=== PATIENT | female | born 1965 | race Caucasian/White ===

== ENCOUNTER 2017-05-13 16:58 | Emergency (ER) | payer MEDICAID ==
[~2017-05-13] VITALS: Ht 157.5 cm; Wt 109.8 kg
[~2017-05-13 16:58] MED LIST: ACETAMINOPHEN325 M2 PO; ACID GONE EXTRA1 CTB PO; AMLO2.5T; AMLO5TAB PO; AMOXICILLIN 25250 M2; AMOXICILLIN 50500 MG PO; ARTHRITIS PAIN650 M1 PO; ATIVAN GENERIC0.5 MG; ATIVAN1 MG PO; AUGMENTIN 875-1 EACH PO; AVPAK AZITHROM250 MG PO; BREO ELLIPTA1 POW IH; BUSPAR 10MG TAB10 MG PO; BUSPIRONE HCL15 MG PO; CARAFATE 1GM TAB1 GM PO; CIPROFLOXACIN500 MG PO; CITRUCEL; CLONAZEPAM 1MG T1 MG PO; CLONAZEPAM0.5 M1 PO; COGENTIN GENERIC1 MG PO; D3-55000 IU PO; DEPAKOTE ER250 MG PO; DILANTIN 100MG100 MG PO; DILANTIN100 MG PO; FENOFIBRATE 54M54 MG PO; FENOFIBRATE160 MG PO; FISH OIL1 POW; FISH OIL1000 MG PO; FLONASE 50 MCG16 GM; FLUTICASONE 50M16 GM; GABAPENTIN 400400 MG PO; GABAPENTIN 600600 MG PO; GABAPENTIN800 MG PO; GEMFIBROZIL600 M1 PO; GEMFIBROZIL600 MG PO; GOOD SENSE OMEP20 MG PO; GOOD SENSE400 MG/5 M PO; HCTZ/TRIAMTEREN1 CAP PO; HYDROCHLOROTHIAZIDE; HYDROCODONE-APA1 TA1 PO; HYDROXYZINE HCL25 M1 PO; IMODIUM 2MG. CAP2 MG PO; KEPPRA100 MG/ML PO; KEPPRA1000 MG PO; KLONOPIN 0.5MG0.5 MG PO; LAMICTAL ODT PA1 OD1; LATUDA20 MG PO; LEVAQUIN750 MG PO; LIDODERM 5% PA1 EACH TD; LIDODERM1 EACH TP; LIPITOR20 MG PO; LIPITOR40 M1 PO; LIPITOR40 MG PO; LODINE200 MG PO; LOPID 600MG TA600 MG PO; LORAZEPAM1 MG/TABLE PO; LOVAZA1 GM PO; MAXZIDE 25 MG-31 TAB PO; MEDROL 4MG. DOSE4 MG PO; METFORMIN HCL1000 MG PO; METFORMIN1000 MG PO; METHYLCELLULOSE PO; METOPROLOL 25 M25 MG PO; METOPROLOL25 MG PO; MULTI-VITAMIN1 EAC1 PO; MULTIVITAMIN1 TAB PO; NAPROSYN 500MG500 MG PO; NATURE'S BLEND1 TA6 PO; OLANZAPINE5 MG PO; OXCARBAZEPINE150 M1 PO; OXCARBAZEPINE300 M2 PO; PAROXETINE HCL10 MG; PERCOCET 5/3251 EACH PO; PHENYTOIN 100M100 MG PO; POTASSIUM CHLO10 ME3 PO; PRAVASTATIN40 MG; PROAIR HFA0.09 MG/AC IH; QUETIAPINE FUM300 M1 PO; QUETIAPINE FUMA25 MG PO; RISPERDAL 1 MG T1 MG PO; RISPERDAL2 MG PO; RISPERDAL3 MG PO; RISPERIDONE2 MG PO; ROBAFEN100 MG/5 M PO; SENNA LAXATIVE8.6 MG PO; SEROQUEL300 MG PO; SEROQUEL50 MG PO; SIMETHICONE80 MG PO; SINGULAIR 10 MG10 MG PO; SINGULAIR10 MG PO; SWISS KRISS1 FLA; SYMBICORT1 AE1 IH; TOPAMAX100 MG PO; TOPAMAX200 MG PO; TOPAMAX25 M1 PO; TOPIRAMATE 100100 M1 PO; TOPIRAMATE 25MG25 MG PO; TOPIRAMATE200 MG PO; TOPROL XL 50MG50 MG PO; TRAZADONE HYDR100 MG; TRAZODONE150 MG PO; TRIAMTERENE; TRICOR 145 MG145 MG PO; TRILEPTAL600 MG PO; TUMS ULTRA ST1000 MG PO; TYLENOL ES500 M1 PO; VENTOLIN H0.09 MG/AC IH; VISTARIL25 M1 PO; VITAMIN D1000 IU PO; VITAMIN D31000 IU PO; VITAMIN D35000 IU PO; ZOLOFT100 MG PO; ZYPREXA 2.5MG2.5 MG PO; ZYPREXA 5MG TAB5 MG PO; ZYRTEC10 M3 PO; [UNRECOGNIZED DRUG - OTHER] PO
[2017-05-13 17:19] LABS: LYMPH # 3.8 K/mm3 (0.7-4.5); LYMPH % 40.7 % (10-50.0)
--- NOTE | 2017-05-13 17:27 | Emergency Room Report ---
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 PT REPORTS REMEMBER EATING BUT DOESN' T REMEMBER FALLING IN THE FLOOR. PT REPORTS LOW BACK PAIN AND L HIP, PT REPORTS HAS BEEN TAKING THERAPY R/T PREVIOUS FALL ON L HIP. 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 N Clinical Suspician of Infection? N Mental Status: 1 - Regular (Normal Baseline) Sepsis Risk:Low Sepsis Risk Have you (or family members/close friends) recently traveled outside the [place]? N If Yes, where/when: Have you had exposure to infectious disease within the past month? N TB? Other? Specify: Patient with chronic left hip pain, recent hospitalization for sinusitis and UTI as well as OM, states hasn't been feeling well the past day or so. No fever or vomiting. Started to eat chicken and vegetables today and when walking from kitchen to sofa to eat more of her meal she had what sounds like an witnessed syncopal episode. Therapist came by, found her on the floor, and called EMS. EMS states on their arrival FSBS 106, patient was ambulatory and alert with no complaints acutely, and arrives also with no complaints. Patient is diabetic. ALLERGIES Coded Allergies: Sulfa (Sulfonamide Antibiotics) (07/13/16) aspirin (07/13/16) ibuprofen (From MOTRIN) (07/13/16) Home Medications Reported Medications Calcium Carbonate (Tums Ultra) 400-800 MG PO PRN PRN INDIGESTION Guaifenesin (Robafen) 10 ML PO Q4HP PRN COUGH Metoprolol Tartrate (Metoprolol 25MG) 25 MG PO BID SERTRALINE HYDROCHLORIDE (Zoloft 100MG) 200 MG PO QAM Hydrochlorothiazide W/Triamter (Triamterene-Hctz 37.5-25 MG Tb) 1 CAP PO DAILY #30 TAB BENZTROPINE MESYLATE (COGENTIN 1MG TAB) 1 MG PO TID GABAPENTIN (Gabapentin) 1,200 MG PO TID PHENYTOIN SODIUM EXTENDED (Phenytoin 100MG Capsule) 200 MG PO BID METFORMIN HCL (Metformin) 500 MG PO BID Omeprazole 20 MG PO DAILY Risperidone (Risperdal 1 Mg Tab) 4 MG PO BID Levetiracetam (Keppra) 1,000 MG PO Q12 Gemfibrozil (GEMFIBROZIL 600MG) 600 MG PO BID Olanzapine (Olanzapine 5MG Tab) 5 MG PO QHS Multivitamin (Multivitamins) 1 TAB PO DAILY Loperamide Hcl (Loperamide) 2 MG PO Q3HP PRN DIARRHEA Acetaminophen (Acetaminophen Tab) 650 MG PO Q8HP PRN PAIN/FEVER Magnesium Hydroxide (Milk Of Magnesia) 30 ML PO DAILYP PRN CONSTIPATION Sucralfate (Carafate Tab) 1 GM PO BID Clonazepam (Klonopin 0.5MG) 0.5 MG PO BID Fenofibrate 54 MG PO DAILY Montelukast Sodium (Singulair 10MG) 10 MG PO QHS OMEGA-3 ACID ETHYL ESTERS (Lovaza) 1 GM PO BID Topiramate 200 MG PO BID #60 CHOLECALCIFEROL (VITAMIN D3) (Vitamin D3) 5,000 UNITS PO DAILY BUDESONIDE/FORMOTEROL FUMARATE (Symbicort 160-4.5 Mcg Inhaler) 1 PUFF IH BID Albuterol Sulfate (Proair Hfa) 1 PUFF IH Q6HP PRN ASTHMA Fluticasone Propionate (Flonase 50 Mcg Nasal [place]) 1 SPRAY NA DAILY FLUTICASONE/VILANTEROL (Breo Ellipta 100-25 Mcg INH) 1 POW IH DAILY Oxcarbazepine 600 MG PO BID History Medical History General CAD? No Angina: No CO: No Hypertension? Yes Hyperlipidemia? Yes CHF? Yes DVT? No PE? No COPD? No Asthma? Yes Anemia? No GERD? No Gastric ulcers? No GI Bleed? No Hernia? No Thyroid Problems? No Hypothyroidism? No CVA? No Seizures? Yes Diabetes? Yes Insulin Dependent: No Insulin Pump: No Home FSBS? No Renal Insuffiency? No End Stage Renal Disease? No UTI? No Stones? No BPH? No GB Disease: No Nephritic Syndrome? No Asplenia? No Hepatitis? No Sickle Cell Disease? No Arthritis? No Migraines? No Cataracts? No Glaucoma? No MRSA? No HIV? No TB? No Anxiety? No Depression? No Cancer? Yes Site: BREAST More? 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 Genitourinary see HPI (urinary frequency 05/12/17). Physical Exam Vital Signs Vital Signs Date Time Temp Pulse Resp B/P Pulse O2 O2 Flow FiO2 Ox Delivery Rate 05/13 1700 98.2 72 18 169/99 96 General Appearance normal appearance, WD/WN, no apparent distress, obese Eye Exam - bilateral eye normal exam, bilateral eye PERRL, bilateral eye EOMI Neck normal inspection, non-tender, supple, full range of motion Respiratory Status Yes: trachea midline, chest symmetrical, non tender chest. No: respiratory distress, tender on palpation, use of accessory muscles, pain on inspiration, pain on expiration, productive cough, non productive cough. Lung Sounds bilateral: normal breath sounds, lungs clear. Cardiovascular normal exam, regular rate/rhythm, no peripheral edema, no gallop, no JVD, no murmur, no rub, normal peripheral pulses Peripheral Pulses Pulses normal Yes Gastrointestinal normal bowel sounds, normal exam, non tender, soft, no organomegaly, no pulsatile mass, no guarding, no rebound Extremities non-tender, normal range of motion, normal inspection, no pedal edema, pelvis stable Strength 5 Upper Ext (L), 5 Upper Ext (R), 5 Lower Ext (L), 5 Lower Ext (R) Neurologic alert, normal exam, no motor/sensory deficits, oriented x 3 Glascow Coma Scale Glascow Coma Scale Response Value EYE response: 4 Spontaneously 4 MOTOR response: 6 OBEYS 6 VERBAL response: 5 Oriented & Converses 5 Total 15 Skin intact, normal color, warm/dry Medical Decision Making LABS/Meds/Orders Pt receiving controlled substance in ED? No Results/Orders Laboratory Tests 05/13/17 1755: Urine Color YELLOW, Urine Appearance CLEAR, Urine pH 6.5, Ur Specific [place] 1.015, Urine Protein NEGATIVE, Urine Ketones NEGATIVE, Urine Blood NEGATIVE, Urine Nitrate NEGATIVE, Urine Bilirubin NEGATIVE, Urine Urobilinogen 0.2, Ur Leukocyte Esterase NEGATIVE, Urine RBC NONE, Urine WBC NONE, Ur Squamous Epith Cells 5-10, Urine Bacteria 1+, Urine Glucose NEGATIVE 05/13/17 1647: Sodium 133 L, Potassium 4.0, Chloride 95 L, Carbon Dioxide 30, BUN 10, Creatinine 0.6, Estimated Creat Clear 192, Estimated GFR (MDRD) 105, Glucose 95, Calcium 9.2, Total Bilirubin 0.2, AST 12 L, ALT 22, Alkaline Phosphatase 104, Creatine Kinase 81, CK-MB (CK-2) Rel Index 4.9 H, CK and CKMB Interp 4.0 H, Troponin I < 0.02, Total Protein 8.4 H, Albumin 4.5, Globulin 3.9 H, Albumin/ Globulin Ratio 1.2, WBC 9.2, RBC 4.21, Hgb 13.0, Hct 38.2, MCV 90.7, RDW 12.5, Plt Count 358, MPV 7.1 L, Gran % 50.6, Gran # 4.7, Lymphocytes % 40.7, Monocytes % 5.4, Eosinophils % 2.9, Basophils % 0.4, Lymphocytes # 3.8, Monocytes # 0.5, Eosinophils # 0.3, Basophils # 0.0, PUBS MCHC 34.0, MCH 30.9 Current Medication Orders Sig/Thomas Start time Last Medication Dose Route Stop Time Status Admin Sodium Chloride 10 ML PRN PRN 05/13 171 AC IV 05/14 170 Orders Procedure Date/time Status OP COURTSEY MEAL 05/13 1721 Active URINALYSIS/COMPLETE 05/13 1721 Complete 12 LEAD EKG-SHAHNAZ (INITIAL) 05/13 1708 Active ELECTROCARDIOGRAM REQUEST 05/13 1708 Active HIP LT 2-3V W/PELVIS IF PERFOR 05/13 1708 Active IV SALINE LOCK 05/13 1708 Active CBC WITH AUTO DIFF 05/13 1708 Complete CARDIAC ENZYMES 05/13 1708 Complete CHEM 12 PROFILE 05/13 1708 Complete CM/EKG CM/EKG EKG rate, NSR, rhythm, no evid. of ischemic chgs, no ectopy, normal QRS, normal SC, normal EKG (NSR 75) XRAY/CT/US XRAY/CT/US XRAY hip, pelvis XR interpretation by reviewed by me ([facility] report reviewed) Xray Results normal/NAD ([facility] report reviewed neg acute), no fracture seen Departure Departure Time of Disposition 1829 Disposition DC Home or Self Care(routine) Clinical Impression Primary Impression: Vasovagal syncope Condition STABLE Referrals Braeden Aquino APRN (Family) Patient Instructions DI for Syncope in Adults (Fainting) Additional Instructions See Braeden for follow up in one day, watch blood sugar carefully, push fluids. Discharge Counseling Counseled pt/family regarding diagnosis, test results, home care, follow up needs ED Critical Care Critical Care No at [id number]
[2017-05-13 17:43] LABS: BUN 10 mg/dL (7-18)
[2017-05-13 17:46] LABS: GFR (ESTIMATED) 105 ML/MIN (59-)
[2017-05-13 18:01] LABS: URINE BILIRUBIN - DIPSTICK NEGATIVE (NEG); URINE BLOOD NEGATIVE (NEG)
[2017-05-13 18:48] VITALS: BP 169/89
--- NOTE | 2017-05-13 20:11 | RADIOLOGY REPORT PS360 ---
HIP LT 2-3V W/PELVIS IF PERFOR HISTORY: Left-sided hip pain after injury FALL, PAIN ORDERING PHYSICIAN: Bella Gonsalez MD PATIENT AGE: 52 years COMPARISON: None FINDINGS: No fracture or dislocation is evident. No significant degenerative change. No lytic or blastic change. Unremarkable soft tissues IMPRESSION: Negative left hip
[2017-05-23] MEDS ORDERED: GENTAMICIN O5 ML/BOT OP (17:50)
[2017-05-23] MEDS ORDERED: AUGMENTIN 875-1 EACH PO (17:50)
== END 2017-05-13 18:48 | disposition home or self-care (01) ==
LOC: ER 16:58
PROVIDERS: Emergency Medicine; Nurse Practitioner Family
DX: R55 Syncope and collapse (principal); Z79.899 Other long term (current) drug therapy; I10 Essential (primary) hypertension; E11.9 Type 2 diabetes mellitus without complications; Z72.0 Tobacco use

== ENCOUNTER 2017-05-27 12:00 | Observation (INO) | payer MEDICAID ==
[~2017-05-27] VITALS: Ht 160 cm; Wt 107.7 kg
[~2017-05-27 12:00] MED LIST changes: +GENTAMICIN O5 ML/BOT OP
[2017-05-27 12:01] VITALS: BP 156/89
[2017-05-27 12:39] LABS: HEMOGLOBIN 13.9 g/dL (12.2-16.2); LYMPH # 2.8 K/mm3 (0.7-4.5); LYMPH % 37.3 % (10-50.0)
--- NOTE | 2017-05-27 16:52 | Emergency Room Report ---
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 N Clinical Suspician of Infection? N Mental Status: 1 - Regular (Normal Baseline) Sepsis Risk:Low Sepsis Risk Have you (or family members/close friends) recently traveled outside the [place]? N If Yes, where/when: Have you had exposure to infectious disease within the past month? N TB? Other? Specify: Source patient, RN notes reviewed, RN/MD, EMS notes reviewed, detention records Exam Limitations no limitations Comment This is a 52-year-old female patient brought by EMS after having for recurrent seizure episodes at home. Patient is well-known to our staff with noncompliance and seizure disorders. ALLERGIES Coded Allergies: Sulfa (Sulfonamide Antibiotics) (05/26/17) aspirin (05/26/17) ibuprofen (From MOTRIN) (05/26/17) Home Medications Active Scripts GENTAMICIN SULFATE (GENTAMICIN 0.3% OPHTH SOLN) 1 DROP OP Q4H #1 BOT Prov: 05/23/17 Reported Medications Calcium Carbonate (Tums Ultra) 400-800 MG PO PRN PRN INDIGESTION Guaifenesin (Robafen) 10 ML PO Q4HP PRN COUGH Metoprolol Tartrate (Metoprolol 25MG) 25 MG PO BID SERTRALINE HYDROCHLORIDE (Zoloft 100MG) 200 MG PO QAM Hydrochlorothiazide W/Triamter (Triamterene-Hctz 37.5-25 MG Tb) 1 CAP PO DAILY #30 TAB BENZTROPINE MESYLATE (COGENTIN 1MG TAB) 1 MG PO TID GABAPENTIN (Gabapentin) 1,200 MG PO TID PHENYTOIN SODIUM EXTENDED (Phenytoin 100MG Capsule) 200 MG PO BID METFORMIN HCL (Metformin) 500 MG PO BID Omeprazole 20 MG PO DAILY Risperidone (Risperdal 1 Mg Tab) 4 MG PO BID Levetiracetam (Keppra) 1,000 MG PO Q12 Gemfibrozil (GEMFIBROZIL 600MG) 600 MG PO BID Olanzapine (Olanzapine 5MG Tab) 5 MG PO QHS Buspirone Hcl (Buspirone 10MG) 10 MG PO BID Trazodone Hcl (Trazodone HCl) 50 MG PO QHS AMOXICILLIN/POTASSIUM CLAV (Amoxicillin-Clav ER 1,000-62.5) 1 TAB PO BID Multivitamin (Multivitamins) 1 TAB PO DAILY Loperamide Hcl (Loperamide) 2 MG PO Q3HP PRN DIARRHEA Acetaminophen (Acetaminophen Tab) 650 MG PO Q8HP PRN PAIN/FEVER Magnesium Hydroxide (Milk Of Magnesia) 30 ML PO DAILYP PRN CONSTIPATION Sucralfate (Carafate Tab) 1 GM PO BID Clonazepam (Klonopin 0.5MG) 0.5 MG PO BID Fenofibrate 54 MG PO DAILY Montelukast Sodium (Singulair 10MG) 10 MG PO QHS OMEGA-3 ACID ETHYL ESTERS (Lovaza) 1 GM PO BID Topiramate 200 MG PO BID #60 CHOLECALCIFEROL (VITAMIN D3) (Vitamin D3) 5,000 UNITS PO DAILY BUDESONIDE/FORMOTEROL FUMARATE (Symbicort 160-4.5 Mcg Inhaler) 1 PUFF IH BID Albuterol Sulfate (Proair Hfa) 1 PUFF IH Q6HP PRN ASTHMA Fluticasone Propionate (Flonase 50 Mcg Nasal [place]) 1 SPRAY NA DAILY FLUTICASONE/VILANTEROL (Breo Ellipta 100-25 Mcg INH) 1 POW IH DAILY Oxcarbazepine 600 MG PO BID History Medical History General CAD? No Angina: No NH: No Hypertension? Yes Hyperlipidemia? Yes CHF? Yes DVT? No PE? No COPD? No Asthma? Yes Anemia? No GERD? No Gastric ulcers? No GI Bleed? No Hernia? No Thyroid Problems? No Hypothyroidism? No CVA? No Seizures? Yes Diabetes? Yes Insulin Dependent: No Insulin Pump: No Home FSBS? No Renal Insuffiency? No End Stage Renal Disease? No UTI? No Stones? No BPH? No GB Disease: No Nephritic Syndrome? No Asplenia? No Hepatitis? No Sickle Cell Disease? No Arthritis? No Migraines? No Cataracts? No Glaucoma? No MRSA? No HIV? No TB? No Anxiety? No Depression? No Cancer? Yes Site: BREAST More? 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 Family History Family Hx Diabetes No CAD No Hypertension No Hyperlipidemia No Cancer No TB No Social History Smoking Hx Smoker: Current Every Day Smoker Tobacco: Yes Type Cigarettes Packs/day 1 1/2 - 2 Packs Alcohol Alcohol: No Review of Systems All Other Systems Reviewed and Negative Psychiatric/Neurological seizure Physical Exam Vital Signs Vital Signs Date Time Temp Pulse Resp B/P Pulse O2 O2 Flow FiO2 Ox Delivery Rate 05/27 1712 97.7 87 20 165/86 97 ROOM AIR 05/27 1708 98.6 74 18 153/79 97 05/27 1706 98.6 74 18 153/79 97 05/27 1355 98.6 74 18 153/79 97 05/27 1314 98.6 72 18 178/57 96 05/27 1201 98.7 79 18 156/89 96 General Appearance normal appearance, WD/WN, no apparent distress Eye Exam - bilateral eye normal exam, bilateral eye PERRL, bilateral eye EOMI Neck normal inspection, non-tender, supple, full range of motion Respiratory Status Yes: trachea midline, chest symmetrical, non tender chest. No: respiratory distress. Lung Sounds bilateral: normal breath sounds, lungs clear. Cardiovascular normal exam, regular rate/rhythm, no peripheral edema, no gallop, no JVD, no murmur, no rub, normal peripheral pulses Gastrointestinal normal bowel sounds, normal exam, non tender, soft, no organomegaly Extremities non-tender, normal range of motion, normal inspection Neurologic alert, tobacco hanger II-XII nml as tested, normal exam, oriented x 3 Mental status normal mood/affect Skin intact, normal color, warm/dry Medical Decision Making LABS/Meds/Orders Pt receiving controlled substance in ED? No Comment Patient had another generalized tonicoclonic seizure while in the emergency room. Her Dilantin level appears to be subtherapeutic. Case discussed with Dr. Millard, covering for Dr. Pereira, plan is to hospitalize patient at this time and reevaluate within 24 hours, when the seizure free. I will write temporary admission orders per hospital protocol. Care transferred to Dr. Millard's/Dr. Pereira at this time. Upon patient's arrival to the floor the unit nurse will contact PCP in order to obtain fully patient and shoulders. Results/Orders Laboratory Tests 05/27/17 1215: Phenytoin 5.2 L 05/27/17 1215: Sodium 131 L, Potassium 4.1, Chloride 95 L, Carbon Dioxide 23, BUN 8, Creatinine 0.7, Estimated Creat Clear 170, Estimated GFR (MDRD) 88, Glucose 106, Calcium 9.6, Total Bilirubin 0.2, AST 13 L, ALT 23, Alkaline Phosphatase 111, Total Protein 8.7 H, Albumin 4.7, Globulin 4.0 H, Albumin/Globulin Ratio 1.2, WBC 7.6, RBC 4.48, Hgb 13.9, Hct 40.8, MCV 91.0, RDW 12.4, Plt Count 370, MPV 7.4, Gran % 54.5, Gran # 4.1, Lymphocytes % 37.3, Monocytes % 4.8, Eosinophils % 2.8, Basophils % 0.6, Lymphocytes # 2.8, Monocytes # 0.4, Eosinophils # 0.2, Basophils # 0.1, PUBS MCHC 34.2, MCH 31.1, Levetiracetam Pending Current Medication Orders Sig/Thomas Start time Last Medication Dose Route Stop Time Status Admin Phenytoin Sodium 300 MG BID 05/28 900 AC PO Sertraline HCl 200 MG QAM 05/28 900 AC 05/28 PO 927 Phenytoin Sodium 500 MG ONCE ONE 05/27 2230 DC 05/27 Sodium Chloride 100 ML IV 05/27 Benztropine Mesylate 1 MG TID 05/27 2100 AC 05/28 PO 926 Clonazepam 0.5 MG BID 05/27 2100 AC 05/28 PO 933 Diagnostic Test (Pha) 1 EACH W/MEALS&HS 05/27 2100 AC 05/28 FS 07/26 Gemfibrozil 600 MG BID 05/27 2100 AC 05/28 PO 927 Insulin Human [rDNA See Dose W/MEALS&HS 05/27 2100 AC origin] Insts (1) SC Metoprolol Tartrate 25 MG BID 05/27 2100 AC 05/28 PO 927 Montelukast Sodium 10 MG QHS 05/27 2100 AC 05/27 PO 2011 Olanzapine 5 MG QHS 05/27 2100 AC 05/27 PO 2012 Oxcarbazepine 600 MG BID 05/27 2100 AC 05/28 PO 928 Risperidone 4 MG BID 05/27 2100 AC 05/28 PO 927 Sucralfate 1 GM BID 05/27 2100 AC 05/28 PO 09 Acetaminophen 650 MG Q8HP PRN 05/27 1715 AC PO Albuterol 2 PUFFS Q6HP PRN 05/27 1715 AC IH Gentamicin Sulfate 1 DROP Q4H 05/27 1715 AC 05/28 OP 06/03 1714 0929 Guaifenesin 10 ML Q4HP PRN 05/27 1715 AC PO Loperamide HCl 2 MG Q3HP PRN 05/27 1715 AC PO Magnesium Hydroxide 30 ML DAILYP PRN 05/27 1715 AC PO Miscellaneous 1 UNIT ONCE ONE 05/27 1715 DC XX 05/27 1716 Nicotine 21 MG DAILYP PRN 05/27 1715 AC 05/28 TD 0838 Fenofibrate 54 MG DAILY 05/27 1708 AC 05/28 PO 0928 Fluticasone 2 SPR DAILY 05/27 1708 AC 05/27 Propionate NA 1738 Multivitamins 1 EACH DAILY 05/27 1708 DC PO Triamterene/HCTZ 1 CAPSULE DAILY 05/27 1708 AC 05/28 PO 0928 Phenytoin Sodium 1,000 MG ONCE ONE 05/27 1415 DC 05/27 Sodium Chloride 100 ML IV 05/27 1438 1515 Dose Instructions: (1)Insulin Human [rDNA origin]: SEE ADMIN CRITERIA FOR LOW INTENSITY SS Orders Procedure Date/time Status -1999 CALORIE ADA 05/28 B Active Decision to admit 05/27 1511 Active LEVETIRACETAM (KEPPRA) 05/27 1222 Active CBC WITH AUTO DIFF 05/27 1222 Complete CHEM 12 PROFILE 05/27 1222 Complete PHENYTOIN (DILANTIN) 05/27 1221 Complete ADMIT PATIENT 05/27 UNK Active RT REQUEST ALBUTEROL INHALER 05/27 UNK Active VITAL SIGNS 05/27 UNK Active 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 of ischemic chgs, no ectopy, normal QRS, normal PA, normal EKG, no EKG for comparison, non-spec. ST/Twave chgs, ST elevation, ST depression, LBBB, RBBB, ectopy, abnormal Q waves Departure Departure Time of Disposition 1651 Disposition Still a Patient Clinical Impression Primary Impression: Seizure Condition STABLE ED Critical Care Critical Care No at 0938
--- NOTE | 2017-05-27 16:52 | Emergency Room Report ---
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 N Clinical Suspician of Infection? N Mental Status: 1 - Regular (Normal Baseline) Sepsis Risk:Low Sepsis Risk Have you (or family members/close friends) recently traveled outside the [place]? N If Yes, where/when: Have you had exposure to infectious disease within the past month? N TB? Other? Specify: Source patient, RN notes reviewed, RN/MD, EMS notes reviewed, [facility] records Exam Limitations no limitations Comment This is a 52-year-old female patient brought by EMS after having for recurrent seizure episodes at home. Patient is well-known to our staff with noncompliance and seizure disorders. ALLERGIES Coded Allergies: Sulfa (Sulfonamide Antibiotics) (05/26/17) aspirin (05/26/17) ibuprofen (From MOTRIN) (05/26/17) Home Medications Active Scripts GENTAMICIN SULFATE (GENTAMICIN 0.3% OPHTH SOLN) 1 DROP OP Q4H #1 BOT Prov: 05/23/17 Reported Medications Calcium Carbonate (Tums Ultra) 400-800 MG PO PRN PRN INDIGESTION Guaifenesin (Robafen) 10 ML PO Q4HP PRN COUGH Metoprolol Tartrate (Metoprolol 25MG) 25 MG PO BID SERTRALINE HYDROCHLORIDE (Zoloft 100MG) 200 MG PO QAM Hydrochlorothiazide W/Triamter (Triamterene-Hctz 37.5-25 MG Tb) 1 CAP PO DAILY #30 TAB BENZTROPINE MESYLATE (COGENTIN 1MG TAB) 1 MG PO TID GABAPENTIN (Gabapentin) 1,200 MG PO TID PHENYTOIN SODIUM EXTENDED (Phenytoin 100MG Capsule) 200 MG PO BID METFORMIN HCL (Metformin) 500 MG PO BID Omeprazole 20 MG PO DAILY Risperidone (Risperdal 1 Mg Tab) 4 MG PO BID Levetiracetam (Keppra) 1,000 MG PO Q12 Gemfibrozil (GEMFIBROZIL 600MG) 600 MG PO BID Olanzapine (Olanzapine 5MG Tab) 5 MG PO QHS Buspirone Hcl (Buspirone 10MG) 10 MG PO BID Trazodone Hcl (Trazodone HCl) 50 MG PO QHS AMOXICILLIN/POTASSIUM CLAV (Amoxicillin-Clav ER 1,000-62.5) 1 TAB PO BID Multivitamin (Multivitamins) 1 TAB PO DAILY Loperamide Hcl (Loperamide) 2 MG PO Q3HP PRN DIARRHEA Acetaminophen (Acetaminophen Tab) 650 MG PO Q8HP PRN PAIN/FEVER Magnesium Hydroxide (Milk Of Magnesia) 30 ML PO DAILYP PRN CONSTIPATION Sucralfate (Carafate Tab) 1 GM PO BID Clonazepam (Klonopin 0.5MG) 0.5 MG PO BID Fenofibrate 54 MG PO DAILY Montelukast Sodium (Singulair 10MG) 10 MG PO QHS OMEGA-3 ACID ETHYL ESTERS (Lovaza) 1 GM PO BID Topiramate 200 MG PO BID #60 CHOLECALCIFEROL (VITAMIN D3) (Vitamin D3) 5,000 UNITS PO DAILY BUDESONIDE/FORMOTEROL FUMARATE (Symbicort 160-4.5 Mcg Inhaler) 1 PUFF IH BID Albuterol Sulfate (Proair Hfa) 1 PUFF IH Q6HP PRN ASTHMA Fluticasone Propionate (Flonase 50 Mcg Nasal [place]) 1 SPRAY NA DAILY FLUTICASONE/VILANTEROL (Breo Ellipta 100-25 Mcg INH) 1 POW IH DAILY Oxcarbazepine 600 MG PO BID History Medical History General CAD? No Angina: No AL: No Hypertension? Yes Hyperlipidemia? Yes CHF? Yes DVT? No PE? No COPD? No Asthma? Yes Anemia? No GERD? No Gastric ulcers? No GI Bleed? No Hernia? No Thyroid Problems? No Hypothyroidism? No CVA? No Seizures? Yes Diabetes? Yes Insulin Dependent: No Insulin Pump: No Home FSBS? No Renal Insuffiency? No End Stage Renal Disease? No UTI? No Stones? No BPH? No GB Disease: No Nephritic Syndrome? No Asplenia? No Hepatitis? No Sickle Cell Disease? No Arthritis? No Migraines? No Cataracts? No Glaucoma? No MRSA? No HIV? No TB? No Anxiety? No Depression? No Cancer? Yes Site: BREAST More? 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 N/A Family History Family Hx Diabetes No CAD No Hypertension No Hyperlipidemia No Cancer No TB No Social History Smoking Hx Smoker: Current Every Day Smoker Tobacco: Yes Type Cigarettes Packs/day 1 1/2 - 2 Packs Alcohol Alcohol: No Review of Systems All Other Systems Reviewed and Negative Psychiatric/Neurological seizure Physical Exam Vital Signs Vital Signs Date Time Temp Pulse Resp B/P Pulse O2 O2 Flow FiO2 Ox Delivery Rate 05/27 1712 97.7 87 20 165/86 97 ROOM AIR 05/27 1708 98.6 74 18 153/79 97 05/27 1706 98.6 74 18 153/79 97 05/27 1355 98.6 74 18 153/79 97 05/27 1314 98.6 72 18 178/57 96 05/27 1201 98.7 79 18 156/89 96 General Appearance normal appearance, WD/WN, no apparent distress Eye Exam - bilateral eye normal exam, bilateral eye PERRL, bilateral eye EOMI Neck normal inspection, non-tender, supple, full range of motion Respiratory Status Yes: trachea midline, chest symmetrical, non tender chest. No: respiratory distress. Lung Sounds bilateral: normal breath sounds, lungs clear. Cardiovascular normal exam, regular rate/rhythm, no peripheral edema, no gallop, no JVD, no murmur, no rub, normal peripheral pulses Gastrointestinal normal bowel sounds, normal exam, non tender, soft, no organomegaly Extremities non-tender, normal range of motion, normal inspection Neurologic alert, account executive key accounts II-XII nml as tested, normal exam, oriented x 3 Mental status normal mood/affect Skin intact, normal color, warm/dry Medical Decision Making LABS/Meds/Orders Pt receiving controlled substance in ED? No Comment Patient had another generalized tonicoclonic seizure while in the emergency room. Her Dilantin level appears to be subtherapeutic. Case discussed with Dr. Millard, covering for Dr. Pereira, plan is to hospitalize patient at this time and reevaluate within 24 hours, when the seizure free. I will write temporary admission orders per hospital protocol. Care transferred to Dr. Millard's/Dr. Pereira at this time. Upon patient's arrival to the floor the unit nurse will contact PCP in order to obtain fully patient and shoulders. Results/Orders Laboratory Tests 05/27/17 1215: Phenytoin 5.2 L 05/27/17 1215: Sodium 131 L, Potassium 4.1, Chloride 95 L, Carbon Dioxide 23, BUN 8, Creatinine 0.7, Estimated Creat Clear 170, Estimated GFR (MDRD) 88, Glucose 106, Calcium 9.6, Total Bilirubin 0.2, AST 13 L, ALT 23, Alkaline Phosphatase 111, Total Protein 8.7 H, Albumin 4.7, Globulin 4.0 H, Albumin/Globulin Ratio 1.2, WBC 7.6, RBC 4.48, Hgb 13.9, Hct 40.8, MCV 91.0, RDW 12.4, Plt Count 370, MPV 7.4, Gran % 54.5, Gran # 4.1, Lymphocytes % 37.3, Monocytes % 4.8, Eosinophils % 2.8, Basophils % 0.6, Lymphocytes # 2.8, Monocytes # 0.4, Eosinophils # 0.2, Basophils # 0.1, PUBS MCHC 34.2, MCH 31.1, Levetiracetam Pending Current Medication Orders Sig/Thomas Start time Last Medication Dose Route Stop Time Status Admin Phenytoin Sodium 300 MG BID 05/28 900 AC PO Sertraline HCl 200 MG QAM 05/28 900 AC 05/28 PO 927 Phenytoin Sodium 500 MG ONCE ONE 05/27 2230 DC 05/27 Sodium Chloride 100 ML IV 05/27 Benztropine Mesylate 1 MG TID 05/27 2100 AC 05/28 PO 926 Clonazepam 0.5 MG BID 05/27 2100 AC 05/28 PO 933 Diagnostic Test (Pha) 1 EACH W/MEALS&HS 05/27 2100 AC 05/28 FS 07/26 Gemfibrozil 600 MG BID 05/27 2100 AC 05/28 PO 927 Insulin Human [rDNA See Dose W/MEALS&HS 05/27 2100 AC origin] Insts (1) SC Metoprolol Tartrate 25 MG BID 05/27 2100 AC 05/28 PO 927 Montelukast Sodium 10 MG QHS 05/27 2100 AC 05/27 PO 2011 Olanzapine 5 MG QHS 05/27 2100 AC 05/27 PO 2012 Oxcarbazepine 600 MG BID 05/27 2100 AC 05/28 PO 928 Risperidone 4 MG BID 05/27 2100 AC 05/28 PO 927 Sucralfate 1 GM BID 05/27 2100 AC 05/28 PO 09 Acetaminophen 650 MG Q8HP PRN 05/27 1715 AC PO Albuterol 2 PUFFS Q6HP PRN 05/27 1715 AC IH Gentamicin Sulfate 1 DROP Q4H 05/27 1715 AC 05/28 OP 06/03 1714 0929 Guaifenesin 10 ML Q4HP PRN 05/27 1715 AC PO Loperamide HCl 2 MG Q3HP PRN 05/27 1715 AC PO Magnesium Hydroxide 30 ML DAILYP PRN 05/27 1715 AC PO Miscellaneous 1 UNIT ONCE ONE 05/27 1715 DC XX 05/27 1716 Nicotine 21 MG DAILYP PRN 05/27 1715 AC 05/28 TD 0838 Fenofibrate 54 MG DAILY 05/27 1708 AC 05/28 PO 0928 Fluticasone 2 SPR DAILY 05/27 1708 AC 05/27 Propionate NA 1738 Multivitamins 1 EACH DAILY 05/27 1708 DC PO Triamterene/HCTZ 1 CAPSULE DAILY 05/27 1708 AC 05/28 PO 0928 Phenytoin Sodium 1,000 MG ONCE ONE 05/27 1415 DC 05/27 Sodium Chloride 100 ML IV 05/27 1438 1515 Dose Instructions: (1)Insulin Human [rDNA origin]: SEE ADMIN CRITERIA FOR LOW INTENSITY SS Orders Procedure Date/time Status -1999 CALORIE ADA 05/28 B Active Decision to admit 05/27 1511 Active LEVETIRACETAM (KEPPRA) 05/27 1222 Active CBC WITH AUTO DIFF 05/27 1222 Complete CHEM 12 PROFILE 05/27 1222 Complete PHENYTOIN (DILANTIN) 05/27 1221 Complete ADMIT PATIENT 05/27 UNK Active RT REQUEST ALBUTEROL INHALER 05/27 UNK Active VITAL SIGNS 05/27 UNK Active 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 of ischemic chgs, no ectopy, normal QRS, normal HI, normal EKG, no EKG for comparison, non-spec. ST/Twave chgs, ST elevation, ST depression, LBBB, RBBB, ectopy, abnormal Q waves Departure Departure Time of Disposition 1651 Disposition Still a Patient Clinical Impression Primary Impression: Seizure Condition STABLE ED Critical Care Critical Care No at [id number]
[2017-05-27 17:12] VITALS: BP 165/86
[2017-05-27 17:43] VITALS: BP 158/64
[2017-05-27] MEDS ORDERED: BUSPIRONE HCL10 MG PO (18:21)
[2017-05-27] MEDS ORDERED: TRAZODONE50 MG PO (18:22)
[2017-05-27] MEDS ORDERED: AMOXICILLIN AND1 TER PO (18:23)
[2017-05-27 19:18] VITALS: BP 142/72
[2017-05-27 19:35] VITALS: BP 142/72
[2017-05-27 23:59] VITALS: BP 102/62
[2017-05-28 04:00] VITALS: BP 110/56
--- NOTE | 2017-05-28 07:42 | PHARMACY CLINIC NOTE ---
Patient Demographics Patient Demographics Admission date: 05/27/17 Date: 05/28/17 Time: 07 Allergies Coded Allergies: Sulfa (Sulfonamide Antibiotics) (05/26/17) aspirin (05/26/17) ibuprofen (From MOTRIN) (05/26/17) HEIGHT- FT: 5 IN: 3.00 K.701 VTE General Information Labs: Laboratory Tests 05/27 1215 Hematology Hgb (12.2 - 16.2 g/dL) 13.9 Hct (37.0 - 47.0 %) 40.8 Plt Count (142 - 424 K/mm3) 370 Disclaimer The following section includes nursing documentation that has been pulled in for pharmacy review. Patient's VTE score: 4 Patient's VTE Risk: LOW RISK Clinical trial participant? No VTE prophylaxis [id number] VTE prophylaxis ordered? Yes Type of prophylaxis/treatment: JERI at 0742
[2017-05-28 07:59] VITALS: BP 144/91
[2017-05-28 08:40] VITALS: BP 144/91
--- NOTE | 2017-05-28 10:23 | CONSULT NOTE ---
See Addendum Standard Demographics Patient Demo Date of Consultation: 05/28/17 Referring Provider: Fletcher Pereira MD Reason for Consultation: Chest pain PRIMARY DIAGNOSIS: SEIZURE DISORDER Problem list Problem list: 1. Diabetes mellitus, treated for about 5 years 2. Tobacco use, started age 22 with a 10 year hiatus, currently smoking 3. Pseudoseizure disorder 4. Obesity 5. Strong family history of early coronary artery disease in both parents who in their late 40's or early 50's 6. Hypertension 7. Hyperlipidemia 8. Mild mental impairment History of present illness: History of present illness: 52-year-old white female with history of pseudoseizure disorder, diabetes mellitus, hypertension, hyperlipidemia and tobacco use admitted for recurrent seizures with low Dilantin level. During admission patient relayed chest pain on the day of admission the last for about 2 hours without radiation, shortness of breath, nausea or diaphoresis. Patient relates symptoms made worse with deep breathing or coughing. Symptoms resolved spontaneously. She denies any exertional chest pain, pressure or tightness. She does have chronic shortness of breath treated with inhalers. She is also on medication for history of ulcers. Patient reportedly had a stress test at [facility] 2 years ago that was unremarkable. Cardiology consulted for evaluation. Past Medical History: General: Hypertension Yes CVA No Seizures Yes TB No COPD No Asthma Yes Diabetes Yes Insulin Dependent No Insulin Pump No Angina No VA No Hyperlipidemia Yes Urinary No Cancer Yes Rheumatic H.D. No Ulcers No MRSA No GB Disease No Other SCHIZOAFFECTIVE D/O Additional hx SCHIZOPHRENIA PSYCHOGENIC NONEPILEPTIC SEIZURES Past Surgical HX: Previous Surgery?Y Hysterect L BREAST BIOPSY 2 BULLETS REMOVED L CHEST CYSTS ON OVARIES REMOVED Allergies Coded Allergies: Sulfa (Sulfonamide Antibiotics) (05/26/17) aspirin (05/26/17) ibuprofen (From MOTRIN) (05/26/17) Home medications: Active Scripts GENTAMICIN SULFATE (GENTAMICIN 0.3% OPHTH SOLN) 1 DROP OP Q4H #1 BOT Prov: 05/23/17 Reported Medications Calcium Carbonate (Tums Ultra) 400-800 MG PO PRN PRN INDIGESTION Guaifenesin (Robafen) 10 ML PO Q4HP PRN COUGH Metoprolol Tartrate (Metoprolol 25MG) 25 MG PO BID SERTRALINE HYDROCHLORIDE (Zoloft 100MG) 200 MG PO QAM Hydrochlorothiazide W/Triamter (Triamterene-Hctz 37.5-25 MG Tb) 1 CAP PO DAILY #30 TAB BENZTROPINE MESYLATE (COGENTIN 1MG TAB) 1 MG PO TID GABAPENTIN (Gabapentin) 1,200 MG PO TID PHENYTOIN SODIUM EXTENDED (Phenytoin 100MG Capsule) 200 MG PO BID METFORMIN HCL (Metformin) 500 MG PO BID Omeprazole 20 MG PO DAILY Risperidone (Risperdal 1 Mg Tab) 4 MG PO BID Levetiracetam (Keppra) 1,000 MG PO Q12 Gemfibrozil (GEMFIBROZIL 600MG) 600 MG PO BID Olanzapine (Olanzapine 5MG Tab) 5 MG PO QHS Buspirone Hcl (Buspirone 10MG) 10 MG PO BID Trazodone Hcl (Trazodone HCl) 50 MG PO QHS AMOXICILLIN/POTASSIUM CLAV (Amoxicillin-Clav ER 1,000-62.5) 1 TAB PO BID Multivitamin (Multivitamins) 1 TAB PO DAILY Loperamide Hcl (Loperamide) 2 MG PO Q3HP PRN DIARRHEA Acetaminophen (Acetaminophen Tab) 650 MG PO Q8HP PRN PAIN/FEVER Magnesium Hydroxide (Milk Of Magnesia) 30 ML PO DAILYP PRN CONSTIPATION Sucralfate (Carafate Tab) 1 GM PO BID Clonazepam (Klonopin 0.5MG) 0.5 MG PO BID Fenofibrate 54 MG PO DAILY Montelukast Sodium (Singulair 10MG) 10 MG PO QHS OMEGA-3 ACID ETHYL ESTERS (Lovaza) 1 GM PO BID Topiramate 200 MG PO BID #60 CHOLECALCIFEROL (VITAMIN D3) (Vitamin D3) 5,000 UNITS PO DAILY BUDESONIDE/FORMOTEROL FUMARATE (Symbicort 160-4.5 Mcg Inhaler) 1 PUFF IH BID Albuterol Sulfate (Proair Hfa) 1 PUFF IH Q6HP PRN ASTHMA Fluticasone Propionate (Flonase 50 Mcg Nasal [place]) 1 SPRAY NA DAILY FLUTICASONE/VILANTEROL (Breo Ellipta 100-25 Mcg INH) 1 POW IH DAILY Oxcarbazepine 600 MG PO BID Current Medications: Current Medications Multivitamins 1 EACH 1700 PO Clonazepam 0 .STK-MED ONE .ROUTE (DC) Phenytoin Sodium 300 MG BID PO Sertraline HCl 200 MG QAM PO Nicotine 0 .STK-MED ONE TD (DC) Phenytoin Sodium 500 MG ONCE ONE IV (DC) Sodium Chloride 100 ML Phenytoin Sodium 0 .STK-MED ONE IV (DC) Sodium Chloride 100 ML .STK-MED ONE IV (DC) Benztropine Mesylate 1 MG TID PO Clonazepam 0.5 MG BID PO Diagnostic Test (Pha) 1 EACH W/MEALS&HS FS Gemfibrozil 600 MG BID PO Insulin Human [rDNA origin] SEE ADMIN CRITERIA FOR LOW INTENSITY SS W/MEALS&HS SC Metoprolol Tartrate 25 MG BID PO Montelukast Sodium 10 MG QHS PO Olanzapine 5 MG QHS PO Oxcarbazepine 600 MG BID PO Risperidone 4 MG BID PO Sucralfate 1 GM BID PO Oxcarbazepine 0 .STK-MED ONE PO (DC) Acetaminophen 650 MG Q8HP PRN PO Albuterol 2 PUFFS Q6HP PRN IH Gentamicin Sulfate 1 DROP Q4H OP Guaifenesin 10 ML Q4HP PRN PO Loperamide HCl 2 MG Q3HP PRN PO Magnesium Hydroxide 30 ML DAILYP PRN PO Miscellaneous 1 UNIT ONCE ONE XX (DC) Nicotine 21 MG DAILYP PRN TD Fenofibrate 54 MG DAILY PO Fluticasone Propionate 2 SPR DAILY NA Multivitamins 1 EACH DAILY PO (DC) Triamterene/HCTZ 1 CAPSULE DAILY PO Phenytoin Sodium 1,000 MG ONCE ONE IV (DC) Sodium Chloride 100 ML Immunization HX DT/Tetanus Unknown Flu [id number] FLU SEASON Pneumonia REFUSES TB Test in last year No Family history Family HX Family Hx Insignificant No Diabetes No CAD No Hypertension No Hyperlipidemia No Cancer No TB No Social Hx: Smoking HX Tobacco Yes Type Cigarettes Packs/day 1 1/2 - 2 PACKS Are you/the child exposed to second-hand smoke: Yes Alcohol Alcohol: No Hx of Drug Use Drug Use? No Review of systems: Constitutional No: no symptoms reported. Respiratory SOB with excertion. Cardiovascular see HPI, chest pain Gastrointestinal/Abdominal No no symptoms reported Genitourinary No: no symptoms reported. Musculoskeletal No: no symptoms reported. Neurological Yes: seizure disorder. Exam: Admission Vital Signs: 1ST Vital Signs Result Date Time Pulse Ox 96 05/27 1201 B/P 156/89 05/27 1201 Temp 98.7 05/27 1201 Pulse 79 05/27 1201 Resp 18 05/27 1201 O2 Delivery ROOM AIR 05/27 1712 Last Vital Signs: Vital Signs Result Date Time Pulse Ox 94 05/28 0840 B/P 144/91 05/28 0840 Temp 97.5 05/28 0840 Pulse 89 05/28 0840 Resp 18 05/28 0840 O2 Delivery ROOM AIR 05/28 0759 Exam General appearance: alert, awake, no acute distress Neck: no carotid bruit, no JVD Cardiovascular: regular rate & rhythm, no murmur Respiratory: clear to auscultation, good air movement ABD: soft, no tenderness Extremities: moves all, no peripheral edema Neuro: alert, intact, oriented Laboratory data: Laboratory Tests 05/27/17 2107: POC Glucose 133 H 05/27/17 1215: Sodium 131 L, Potassium 4.1, Chloride 95 L, Carbon Dioxide 23, BUN 8, Creatinine 0.7, Estimated Creat Clear 170, Estimated GFR (MDRD) 88, Glucose 106, Calcium 9.6, Total Bilirubin 0.2, AST 13 L, ALT 23, Alkaline Phosphatase 111, Total Protein 8.7 H, Albumin 4.7, Globulin 4.0 H, Albumin/Globulin Ratio 1.2, WBC 7.6, RBC 4.48, Hgb 13.9, Hct 40.8, MCV 91.0, RDW 12.4, Plt Count 370, MPV 7.4, Gran % 54.5, Gran # 4.1, Lymphocytes % 37.3, Monocytes % 4.8, Eosinophils % 2.8, Basophils % 0.6, Lymphocytes # 2.8, Monocytes # 0.4, Eosinophils # 0.2, Basophils # 0.1, PUBS MCHC 34.2, MCH 31.1, Phenytoin 5.2 L Plan: Assessment: 1. Chest pain with atypical features. Electrocardiogram sinus and unremarkable. MARTI score of 1. Patient does not wish to pursue stress testing or echocardiogram at this time. We'll continue with medical therapy at her request. 2. Diabetes mellitus 3. Pseudo-Seizure disorder 4. Hypertension 5. Hyperlipidemia Recommendations: 1. Recommend increasing metoprolol to 50 mg twice a day. Patient states she is ALLERGIC to aspirin with anaphylactic type reaction. Would not recommend plavix, effient or brilinta with history of seizure disorder and falls. 2. Will obtain one set of cardiac enzymes and BNP (question infiltrate vs atelectasis on CXR) and if normal, then okay for discharge from cardiology standpoint. Recommend following up in 2-4 weeks for reconsideration of echocardiogram and stress testing. In the meantime we'll try to obtain stress testing results from [facility]. at 1048
[2017-05-28 11:41] VITALS: BP 139/94
--- NOTE | 2017-05-28 12:02 | ACUTE CARE PROGRESS NOTE (QUA) ---
Progress Notes Subjective Date 05/28/17 Time 0810 Patient/family reports: feeling better, no complaints Nursing reports: alert Objective Findings Laboratory Tests 05/28/17 1035: Creatine Kinase 238 H, CK-MB (CK-2) Rel Index 0.8, CK and CKMB Interp 2.0, Troponin I < 0.02 05/28/17 1035: B-Natriuretic Peptide < 5 05/27/17 2107: POC Glucose 133 H 05/27/17 1215: Sodium 131 L, Potassium 4.1, Chloride 95 L, Carbon Dioxide 23, BUN 8, Creatinine 0.7, Estimated Creat Clear 170, Estimated GFR (MDRD) 88, Glucose 106, Calcium 9.6, Total Bilirubin 0.2, AST 13 L, ALT 23, Alkaline Phosphatase 111, Total Protein 8.7 H, Albumin 4.7, Globulin 4.0 H, Albumin/Globulin Ratio 1.2, WBC 7.6, RBC 4.48, Hgb 13.9, Hct 40.8, MCV 91.0, RDW 12.4, Plt Count 370, MPV 7.4, Gran % 54.5, Gran # 4.1, Lymphocytes % 37.3, Monocytes % 4.8, Eosinophils % 2.8, Basophils % 0.6, Lymphocytes # 2.8, Monocytes # 0.4, Eosinophils # 0.2, Basophils # 0.1, PUBS MCHC 34.2, MCH 31.1, Phenytoin 5.2 L Vital Signs Date Time Temp Pulse Resp B/P Pulse O2 O2 Flow FiO2 Ox Delivery Rate 05/28 1141 98.9 81 18 139/94 94 ROOM AIR 05/28 0840 97.5 89 18 144/91 94 05/28 0759 97.5 89 18 144/91 94 ROOM AIR 05/28 0400 98.1 77 18 110/56 92 ROOM AIR 05/27 2359 97.9 72 18 102/62 91 ROOM AIR 05/27 1935 98.2 84 18 142/72 94 05/27 1918 98.2 84 18 142/72 94 ROOM AIR 05/27 1743 92 05/27 1743 98.1 92 18 158/64 05/27 1743 97 ROOM AIR 05/27 1712 97.7 87 20 165/86 97 ROOM AIR 05/27 1708 98.6 74 18 153/79 97 05/27 1706 98.6 74 18 153/79 97 05/27 1355 98.6 74 18 153/79 97 05/27 1314 98.6 72 18 178/57 96 05/27 1201 98.7 79 18 156/89 96 Last VS-Temp:98.9 B/P:139/94 Pulse:81 Resp:18 SaO2:94 ROOM AIR Last weight lbs:237 oz:7 K.701 Method:Bed Scales Exam General appearance: normal appearance, awake Eyes: normal exam ENT: normal exam Neck: normal inspection Cardiovascular: normal exam, no JVD, regular rate & rhythm Respiratory: normal exam, clear to auscultation, good air movement ABD: normal exam, soft Genitourinary: normal voiding & quantity Extremities: normal exam, moves all Musculoskeletal: normal exam Skin: normal exam, intact, warm Neuro: normal exam, alert, intact, oriented Reviewed: allergies, medications, vital signs, lab results, radiology report, consult note Assessment/Plan Problem List 1. Psychogenic nonepileptic seizure 2. Psychiatric illness 3. Pseudoseizure Patient condition Stable Plan: continue current care This inpt stay is expected to cross 2 MNs from start of care No Comments: rounded with ghassan at 1202
--- NOTE | 2017-05-28 12:57 | Discharge Summary Standard ---
Demographics: Admit date: 05/27/17 Chief complaint: syncopy PRIMARY DIAGNOSIS: SEIZURE DISORDER Allergies: Coded Allergies: Sulfa (Sulfonamide Antibiotics) (05/26/17) aspirin (05/26/17) ibuprofen (From MOTRIN) (05/26/17) History of present illness: History of present illness: 52-year-old white female with history of pseudoseizure disorder, diabetes mellitus, hypertension, hyperlipidemia and tobacco use admitted for recurrent seizures with low Dilantin level. During admission patient relayed chest pain on the day of admission the last for about 2 hours without radiation, shortness of breath, nausea or diaphoresis. Patient relates symptoms made worse with deep breathing or coughing. Symptoms resolved spontaneously. She denies any exertional chest pain, pressure or tightness. She does have chronic shortness of breath treated with inhalers. She is also on medication for history of ulcers. Patient reportedly had a stress test at [facility] in [facility] 2 years ago that was unremarkable. Cardiology consulted for evaluation. Past medical history: Family HX Family Hx Insignificant No Diabetes No CAD No Hypertension No Hyperlipidemia No Cancer No TB No Immunization HX DT/Tetanus Unknown Flu 2011-FSN Pneumonia REFUSES TB Test in last year No General CAD? No Angina: No [place]: No Hypertension? Yes Hyperlipidemia? Yes CHF? Yes DVT? No PE? No COPD? No Asthma? Yes Anemia? No GERD? No Gastric ulcers? No GI Bleed? No Hernia? No Thyroid Problems? No Hypothyroidism? No CVA? No Seizures? Yes Diabetes? Yes Insulin Dependent: No Insulin Pump: No Home FSBS? No Renal Insuffiency? No UTI? No Stones? No BPH? No GB Disease: No Nephritic Syndrome? No Asplenia? No Hepatitis? No Sickle Cell Disease? No Arthritis? No Migraines? No Cataracts? No Glaucoma? No MRSA? No HIV? No TB? No Anxiety? No Depression? No Cancer? Yes Site: BREAST More? 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 Past Surgical HX Previous Surgery?Y Hysterect L BREAST BIOPSY 2 BULLETS REMOVED L CHEST CYSTS ON OVARIES REMOVED Current home meds: Active Scripts GENTAMICIN SULFATE (GENTAMICIN 0.3% OPHTH SOLN) 1 DROP OP Q4H #1 BOT Prov: 05/23/17 Reported Medications Calcium Carbonate (Tums Ultra) 400-800 MG PO PRN PRN INDIGESTION Guaifenesin (Robafen) 10 ML PO Q4HP PRN COUGH Metoprolol Tartrate (Metoprolol 25MG) 25 MG PO BID SERTRALINE HYDROCHLORIDE (Zoloft 100MG) 200 MG PO QAM Hydrochlorothiazide W/Triamter (Triamterene-Hctz 37.5-25 MG Tb) 1 CAP PO DAILY #30 TAB BENZTROPINE MESYLATE (COGENTIN 1MG TAB) 1 MG PO TID GABAPENTIN (Gabapentin) 1,200 MG PO TID METFORMIN HCL (Metformin) 500 MG PO BID Omeprazole 20 MG PO DAILY Risperidone (Risperdal 1 Mg Tab) 4 MG PO BID Levetiracetam (Keppra) 1,000 MG PO Q12 Gemfibrozil (GEMFIBROZIL 600MG) 600 MG PO BID Olanzapine (Olanzapine 5MG Tab) 5 MG PO QHS Buspirone Hcl (Buspirone 10MG) 10 MG PO BID Trazodone Hcl (Trazodone HCl) 50 MG PO QHS AMOXICILLIN/POTASSIUM CLAV (Amoxicillin-Clav ER 1,000-62.5) 1 TAB PO BID Multivitamin (Multivitamins) 1 TAB PO DAILY Loperamide Hcl (Loperamide) 2 MG PO Q3HP PRN DIARRHEA Acetaminophen (Acetaminophen Tab) 650 MG PO Q8HP PRN PAIN/FEVER Magnesium Hydroxide (Milk Of Magnesia) 30 ML PO DAILYP PRN CONSTIPATION Sucralfate (Carafate Tab) 1 GM PO BID Clonazepam (Klonopin 0.5MG) 0.5 MG PO BID Fenofibrate 54 MG PO DAILY Montelukast Sodium (Singulair 10MG) 10 MG PO QHS OMEGA-3 ACID ETHYL ESTERS (Lovaza) 1 GM PO BID Topiramate 200 MG PO BID #60 CHOLECALCIFEROL (VITAMIN D3) (Vitamin D3) 5,000 UNITS PO DAILY BUDESONIDE/FORMOTEROL FUMARATE (Symbicort 160-4.5 Mcg Inhaler) 1 PUFF IH BID Albuterol Sulfate (Proair Hfa) 1 PUFF IH Q6HP PRN ASTHMA Fluticasone Propionate (Flonase 50 Mcg Nasal [place]) 1 SPRAY NA DAILY FLUTICASONE/VILANTEROL (Breo Ellipta 100-25 Mcg INH) 1 POW IH DAILY Oxcarbazepine 600 MG PO BID Discontinued Reported Medications PHENYTOIN SODIUM EXTENDED (Phenytoin 100MG Capsule) 200 MG PO BID Social Hx: Smoking HX Tobacco Yes Type Cigarettes Packs/day 1 1/2 - 2 PACKS Are you/the child exposed to second-hand smoke: Yes Alcohol Alcohol: No Hx of Drug Use Drug Use? No Review of systems: Constitutional weakness. Respiratory No: no symptoms reported. Cardiovascular see HPI, syncope Gastrointestinal/Abdominal no symptoms reported Genitourinary no symptoms reported. Musculoskeletal No: no symptoms reported. Neurological Yes: see HPI. Psychiatric Yes: no symptoms reported. Exam: Lab data for last 24 hours: Laboratory Tests 05/28/17 1035: Creatine Kinase 238 H, CK-MB (CK-2) Rel Index 0.8, CK and CKMB Interp 2.0, Troponin I < 0.02 05/28/17 1035: B-Natriuretic Peptide < 5 05/27/17 2107: POC Glucose 133 H Admission vital signs: 1ST Vital Signs Result Date Time Pulse Ox 96 05/27 1201 B/P 156/89 05/27 1201 Temp 98.7 05/27 1201 Pulse 79 05/27 1201 Resp 18 05/27 1201 O2 Delivery ROOM AIR 05/27 1712 Exam General appearance: normal appearance, active, no acute distress Eyes: normal exam ENT: normal exam Neck: normal inspection Cardiovascular: normal exam, regular rate & rhythm Respiratory: normal exam, chest non-tender, normal breath sounds ABD: normal exam, no rebound, soft Genitourinary: normal voiding & quantity Extremities: normal exam, moves all, warm Musculoskeletal: normal exam Skin: normal exam, intact, warm Neuro: normal exam, alert, intact, oriented Hospital Course Hospital Course: syncopy- cardiology consult, see note, seizure like disorder- ct normal will dc home with close monitoring Medications Medications: Discharge meds are as noted. Follow up Follow up in office in: 7 DAYS with: Braeden Aquino APRN Comment: rounded with ghassan at [phone]
[2017-05-28] MEDS ORDERED: METOPROLOL 25 M25 MG PO (12:58)
[2017-05-28 13:25] VITALS: BP 139/94
--- OUTSIDE RECORDS SUMMARY | 2017-06-27 20:33 | External Medical Summary Rpt ---
Author Author , KATHI ARMENTA Address Unknown Phone [email or web address] Care Team Providers Care Continuous Conveyor Screen Drier Name Role Phone PAKISTANI AMBULETTE Unavailable Unavailable AND AMBUL, PAKISTANI AMBULETTE AND AMBUL PAKISTANI AMBULETTE Unavailable Unavailable AND AMBUL, PAKISTANI AMBULETTE AND AMBUL [facility] Unavailable Unavailable RESPONSE, [facility] RESPONSE [facility] Unavailable Unavailable RESPONSE, [facility] RESPONSE ARNOLD, ARNOLD Unavailable Unavailable ARNOLD, ARNOLD Unavailable Unavailable ARNOLD MARII, ARNOLD Unavailable Unavailable MARII ARNOLD MARII, ARNOLD Unavailable Unavailable MARII AYOOB AND, AYOOB AND Unavailable Unavailable GLASER RYLIE, GLASER RYLIE Unavailable Unavailable SHAKEEL CHLOE, SHAKEEL Unavailable Unavailable CHLOE BEINEKE, BEINEKE Unavailable Unavailable [facility] Unavailable Unavailable [facility], [facility] BENSALEM JOSE MARTIN, Unavailable Unavailable BENSALEM JOSE MARTIN BESSON, BESSON Unavailable Unavailable CHEUNG, CHEUNG Unavailable Unavailable CHEUNG ALL, CHEUNG ALL Unavailable Unavailable REN III LIANA, Unavailable Unavailable REN III LIANA BLAYNE MOH, BLAYNE MOH Unavailable Unavailable BRAUDIS JAM, BRAUDIS Unavailable Unavailable JAM BRAUDIS JAM, BRAUDIS Unavailable Unavailable JAM [facility] Unavailable Unavailable SERVICE, [facility] Unavailable Unavailable SERVICE, [facility] Unavailable Unavailable [facility] Unavailable Unavailable [facility] Unavailable Unavailable [facility], [facility], Unavailable Unavailable [facility] Un[facility]available [facility] Unavailable Unavailable [facility], [facility] Unavailable Unavailable [facility], [facility] YUN RAMONA, YUN RAMONA Unavailable Unavailable [facility] Unavailable [facility]available [facility] CORALES BEN, CORALES Unavailable Unavailable BEN CORALES BEN, CORALES Unavailable Unavailable BEN ADELIA ARSENIO, Unavailable Unavailable ADELIA ARSENIO DONNELL, DONNELL Unavailable Unavailable DONNELL FIDEL, Unavailable Unavailable DONNELL FIDEL [facility] # [id number], Unavailable Unavailable [facility] # [id number] [facility] Un[facility] Unavailable C[facility], [facility] DAVREN ANNETTE, DAVREN Unavailable Unavailable ANNETTE BUTLER RODRIGUEZ, BUTLER RODRIGUEZ Unavailable Unavailable [facility] Unavailable Unavailable [facility] DOWNS PAT, DOWNS PAT Unavailable Unavailable [facility] Un[facility], [facility] ELLEMAN SAMANTHA, ELLEMAN Unavailable Unavailable [facility] NOLVIA JAM, NOLVIA JAM Unavailable Unavailable ESCOTT EDW, ESCOTT Unavailable Unavailable EDW [facility] Unavailable Unavailable [facility], [facility] Unavailable Unavailable [facility], [facility] ARLINE MICHAEL, Unavailable Unavailable ARLINE MICHAEL CODEY MEGHNA, CODEY Unavailable Unavailable MEGHNA [facility] Unavailable Unavailable [facility], [facility] FEE DOM, FEE DOM Unavailable Unavailable FRYMAN, FRYMAN Unavailable Unavailable GRANGER, JR, GRANGER, Unavailable Unavailable JR DONNIE, DONNIE Unavailable Unavailable DONNIE SAMANTHA, DONNIE Unavailable Unavailable SAMANTHA GEILE LOBO, GEILE LOBO Unavailable Unavailable GEILE LOBO, GEILE LOBO Unavailable Unavailable [facility] Unavailable Unavailable [facility], [facility], Unavailable Unavailable [facility] CENTENO HARSIH, Unavailable Unavailable CENTENO HARISH BAUTISTA III LYUBOV, BAUTISTA Unavailable Unavailable III LYUBOV GRUNKEMEYER MAT, Unavailable Unavailable GRUNKEMEYER MAT WALTERS LIL, WALTERS LIL Unavailable Unavailable ZHANG BAR, [facility] Unavailable Unavailable [facility], Unavailable Unavailable [facility] Unavailable Unavailable [facility], [facility] Unavailable Unavailable CARE, [facility] Unavailable Unavailable CARE, [facility] Unavailable Unavailable INC, [facility] Unavailable Unavailable [facility]PITAL P, [facility] HODAN HENRY, HODAN Unavailable Unavailable HENRY CROOKS MOL, CROOKS Unavailable Unavailable MOL BILLINGSLEY, BILLINGSLEY Unavailable Unavailable [facility], Unavailable Unavailable [facility] LUCRETIA, LUCRETIA Unavailable Unavailable LUCRETIA POOJA, LUCRETIA POOJA Unavailable Unavailable RAMOS SYLVIA, RAMOS SYLVIA Unavailable Unavailable OLMEDO, OLMEDO Unavailable Unavailable MCQUEEN TRA, MCQUEEN TRA Unavailable Unavailable INDEPENDENT Unavailable Unavailable ANESTHESIOLOGIST, INDEPEND[facility] ANESTHESIOLOGIST REHANA M NOLVIA, OD, Unavailable Unavailable PSC, REHANA D ESOUZA, OD, PSC ALVARADO I BAUTISTA III PSC Unavailable Unavailable N0 3, ALVARADO I BAUTISTA III PSC N0 3 RIVERS YE, RIVERS YE Unavailable Unavailable BRIANNA CHINMAY, BRIANNA Unavailable Unavailable CHINMAY RUTHIE CHR, RUTHIE Unavailable Unavailable CHR LEXA OSKAR, LEXA Unavailable Unavailable OSKAR [facility] Unavailable Unavailable [facility], [facility] KERMAN LYUBOV, KERMAN Unavailable Unavailable LYUBOV GLYNN NIV, GLYNN NIV Unavailable Unavailable Muriel Ruiz MD, Unavailable Unavailable Muriel Ruiz MD [facility] [id number] # Unavailable Unavailable [id number], [facility] [id number] # [id number] HAMZAH TUS, HAMZAH Unavailable Unavailable [facility] Un[facility] Unavailable Unavailable [facility], [facility] Unavailable Unavailable [facility], [facility] Unavailable Unavailable [facility], [facility] TAFOYA TARAN, TAFOYA Unavailable Unavailable TARAN XIMENA JAM, XIMENA JAM Unavailable Unavailable BANKS PAT, BANKS PAT Unavailable Unavailable MACHADO JUVENTINO, MACHADO JUVENTINO Unavailable Unavailable PRIMO JR, PRIMO JR Unavailable Unavailable PRIMO JR DWI, PRIMO Unavailable Unavailable JR DWI EARL FAYETTE URBAN Unavailable Unavailable COGOVT, EARL FAYETTE URBAN COGOVT LOEBKER SCHMID, LOEBKER Unavailable Unavailable SCHMID TRINIDAD LOREN, TRINIDAD Unavailable Unavailable LOREN [facility] Unavailable Unavailable SERVICES, [facility] MASROOR ALA, MASROOR Unavailable Unavailable ALA MCDANNOLD PEG, Unavailable Unavailable MCDANNOLD PEG [address], Unavailable Unavailable [address] [facility] Unavailable Unavailable [facility] MOSLEY LOREN, MOSLEY Unavailable Unavailable LOREN MOGILEVSKI JOSE CRUZ, Unavailable Unavailable MOGILEVSKI JOSE CRUZ MOGILEVSKI JOSE CRUZ, Unavailable Unavailable MOGILEVSKI JOSE CRUZ VISHAL HARISH, VISHLA Unavailable Unavailable HARISH LANETTE HELLEN, LANETTE HELLEN Unavailable Unavailable VAL OSMAN Unavailable Unavailable HEI [facility] Unavailable Unavailable [facility], [facility] PSC NICKELS RYLIE, NICKELS Unavailable Unavailable RYLIE AN PRIMO CHLOE, Unavailable Unavailable AN PRIMO CHLOE [facility], Unavailable Unavailable [facility], [facility] ANNE RODRÍGUEZ Unavailable Unavailable [facility] Unavailable Unavailable [facility] Unavailable Unavailable [facility], [facility] Unavailable Unavailable [facility], [facility] RAINS ALL, RAINS ALL Unavailable Unavailable BETANCOURT AKM, BETANCOURT Unavailable Unavailable AKM RENUSCH, RENUSCH Unavailable Unavailable RENUSCH MEGHNA, RENUSCH Unavailable Unavailable MEGHNA ROEBKER JAM, ROEBKER Unavailable Unavailable JAM BOLDEN GAV, BOLDEN GAV Unavailable Unavailable SADEK MOH, SADEK MOH Un[facility] Un[facility] Unavailable [facility], [facility] SCALF MARII, SCALF MARII Unavailable Unavailable SCHACK LOREN, SCHACK Unavailable Unavailable LOREN SAMUEL GAR, SAMUEL Unavailable Unavailable GAR [facility], Unavailable Unavailable [facility] SAMEER, SAMEER Unavailable Unavailable VIKRAM ELL, VIKRAM Unavailable Unavailable ELL TIKA GAR, TIKA Unavailable Unavailable GAR SHIRAKBARI ALI, Unavailable Unavailable SHIRAKBARI ALI HUTCHINS JAVIER, HUTCHINS JAVIER Unavailable Unavailable SOKAN BAB, SOKAN BAB Unavailable [facility]available [facility] Unavailable Unavailable [facility], [facility] Unavailable Unavailable [facility], [facility] SOTINGEANU, Unavailable Unavailable SOTINGEANU SOTINGEANU BEN, Unavailable Unavailable SOTINGEANU EBN RONNY, Unavailable Unavailable RONNY [facility] Unavailable Unavailable [facility], Unavailable [facility]available [facility]available Unavailable ENVIRONMENTAL SCIENCES PROFESSOR ST, [facility] ENVIRON[facility]ENC[facility] PROFESSOR [facility] Unavailable Unavailable PHYSICIANS, [facility] SET, Unavailable Unavailable [facility] SET LOVETT JESSICA, LOVETT Unavailable Unavailable JESSICA TANOUS EDW, TANOUS Unavailable Unavailable EDW GAURAV ANGELA, GAURAV Unavailable Unavailable ANGELA [facility] Un[facility]available Unavailable [facility] Unavailable Unavailable GROUP ,, [facility] , [facility], Unavailable Unavailable [facility] Unavailable Unavailable #5, [facility] [address] Unavailable Unavailable RYLIE DEBBIE JR JAM, DEBBIE Unavailable Unavailable JR JAM [facility] Unavailable Unavailable MEDICINE P, [facility], Unavailable [facility]available [facility] V[facility] CHR, VASHI CHR Unavailable Unavailable WALKER FOR, WALKER Unavailable Unavailable FOR DORY SANGEETA, DORY Unavailable Unavailable SANGEETA [facility] Unavailable Unavailable DEPT [facility], [facility] DEAN HEL, DEAN HEL Unavailable Unavailable DOREEN COBOS, DOREEN COBOS Unavailable Unavailable [facility], Unavailable Unavailable [facility], Unavailable Unavailable [facility], Unavailable Unavailable [facility] VALERI KEYSHAWN, VALERI KEYSHAWN Unavailable Unavailable JORDAN RYA, JORDAN RYA Unavailable Unavailable Purpose Continuity of Care Document - 02-05-2011 through 2016 Problems Code Diagnosis DOS Provider Status E119 TYPE 2 06-17-2017 MAZON DIABETES [facility] MELLITUS ELDER CARE WITHOUT COMPLICATIO NS R4182 ALTERED 06-04-2017 [facility] STATUS [facility] UNSPECIFIED R443 HALLUCINATI 06-02-2017 [facility] AMBULANCE UNSPECIFIED SERVICE E785 HYPERLIPIDE 05-28-2017 [facility] ADIS PHYSICIANS UNSPECIFIED GROUP I10 ESSENTIAL 05-28-2017 [facility] PRIMARY PHYSICIANS HYPERTENSIO GROUP N R079 CHEST PAIN 05-28-2017 [facility] UNSPECIFIED PHYSICIANS GROUP Z720 TOBACCO USE 05-28-2017 [facility] PHYSICIANS GROUP Z8249 FAMILY HX 05-28-2017 [facility] ISCHEMIC PHYSICIANS HRT DZ OTH GROUP DZ CIRC SYSTEM [id number] EPILEPSY 05-27-2017 [facility] UNS NOT PHYSICIANS, INTRACT W/O PLLC STATUS EPILEPTICUS R569 UNSPECIFIED 05-27-2017 [facility] CONVULSIONS SERVICE E876 HYPOKALEMIA 05-26-2017 [facility], [facility] R071 CHEST PAIN 05-26-2017 [facility] ON PHYSICIANS, BREATHING [facility] [id number] OTHER LONG 05-26-2017 [facility] P DRUG THERAPY V88690 HORDEOLUM 05-23-2017 [facility] EXTERNUM [facility] LEFT LOWER INC EYELID X12028 HORDEOLUM 05-23-2017 [facility] INTERNUM PHYSICIANS, LEFT LOWER PLLC EYELID C38215 CELLULITIS 05-23-2017 [facility] OF LEFT PHYSICIANS, ORBIT [facility] T56935 UNSPECIFIED 05-23-2017 [facility] ASTHMA [facility] UNCOMPLICAT INC ED J66013 PAIN IN 05-13-2017 [facility] HIP [facility] IM[facility] ASS R42 DIZZINESS 05-13-2017 [facility] AND AMBULANCE GIDDINESS SERVICE R55 SYNCOPE AND 05-13-2017 [facility] COLLAPSE PHYSICIANS, PLLC U90MWKC UNSPECIFIED 05-13-[address] [facility] FALL AMBULANCE INITIAL SERVICE ENCOUNTER R05 COUGH 04-25-2017 [facility] R062 WHEEZING 04-25-2017 [facility] R918 OTHER 04-25-2017 [facility] NONSPECIFIC MEDICAL ABNORMAL IMAGING ASS FINDING OF LUNG FIELD J0190 ACUTE 04-24-2017 [facility] SINUSITIS PHYSICIANS, UNSPECIFIED PLLC J53896 PAIN IN 04-24-2017 [facility] LEFT MEDICAL SHOULDER IMAGING ASS M6282 RHABDOMYOLY 04-24-2017 [facility] SIS PHYSICIANS, PLLC R51 HEADACHE 04-24-2017 [facility] R531 WEAKNESS 04-24-[address] [facility] AMBULANCE SERVICE R7989 OTHER SPEC 04-24-2017 [facility] ABNORMAL PHYSICIANS, FINDINGS PLLC BLOOD CHEMISTRY C663PLT TRAUMATIC 04-24-2017 [facility] ISCHEMIA OF PHYSICIANS, MUSCLE PLLC INITIAL ENCOUNTER Z1231 ENCOUNTER 04-20-2017 [place] SCREENING MEDICAL MAMMO MALIG IMAGING ASS NEOPLASM BREAST R69 ILLNESS 04-15-2017 [facility] UNSPECIFIED TRANSPORTAT ION SER H5213 MYOPIA 03-17-2017 [facility] J209 ACUTE 03-15-2017 [facility] BRONCHITIS [facility] UNSPECIFIED INC R110 NAUSEA 03-15-[address] [facility] AMBULANCE SERVICE M545 LOW BACK 02-03-2017 [facility] PAIN [facility] INC M6281 MUSCLE 02-03-2017 [facility] WEAKNESS [facility] GENERALIZED INC J3501 CHRONIC 01-13-2017 [facility] TONSILLITIS YFN HOLDINGS E039 HYPOTHYROID 01-08-2017 [facility] ISM PHYSICIANS UNSPECIFIED LA E782 MIXED 01-08-2017 [facility] HYPERLIPIDE PHYSICIANS ADIS LA F3289 OTHER 12-19-2016 [facility] SPECIFIED PHYSICIANS DEPRESSIVE GROUP EPISODES G629 POLYNEUROPA 12-19-2016 [facility] THY PHYSICIANS UNSPECIFIED GROUP M150 PRIMARY 12-09-2016 [facility] GENERALIZED OSTEOARTHRI TIS Y51560 PAIN IN 09-27-2016 [place] RIGHT HIP MEDICAL IMAGING ASS N55047 PAIN IN 09-27-2016 [facility] RIGHT KNEE MEDICAL IMAGING ASS M549 DORSALGIA 09-27-[address] [facility] UNSPECIFIED AMBULANCE SERVICE P129WGM CONTUSION 09-27-2016 [facility] LOWER BACK PHYSICIANS, & PELVIS PLLC INITIAL ENCOUNTER Y6829WB CONTUSION 09-27-2016 [facility] OF RIGHT PHYSICIANS, KNEE PLLC INITIAL ENCOUNTER F12545S LACERATION 08-31-2016 [facility] W/FB LT AMBULANCE UPPER ARM SERVICE SUBSEQUENT ENC R251 TREMOR 08-06-2016 [facility] D23395 PAIN IN 07-13-2016 [place] RIGHT WRIST MEDICAL IMAGING ASS L1305PW OTHER SPEC 07-13-2016 [facility] INJURIES RT AMBULANCE WRIST HAND SERVICE FINGERS INIT C5171AT UNSPECIFIED 07-13-2016 [facility] INJURY RT PHYSICIANS, WRIST HAND PLLC FINGERS INITIAL E9524RW CONTUSION 07-08-2016 [facility] OF SCALP PHYSICIANS, INITIAL PLLC ENCOUNTER I2883VP ABRASION 07-08-2016 [facility] UNSPECIFIED PHYSICIANS, PART HEAD PLLC INITIAL ENCOUNTER A7862LG UNSPECIFIED 07-08-2016 [facility] INJURY OF AMBULANCE HEAD SERVICE INITIAL ENCOUNTER R202 PARESTHESIA 06-27-[address] [facility] OF SKIN AMBULANCE SERVICE R401 STUPOR 06-26-[address] [facility] AMBULANCE SERVICE E871 HYPO-OSMOLA 05-20-2016 [facility] LITTia AND PHYSICIANS, HYPONATREMI PLLC A M542 CERVICALGIA 05-05-2016 [facility] X930TQY OTHER 05-05-2016 [facility] SPECIFIED AMBULANCE INJURIES SERVICE HEAD INITIAL ENCOUNTER K11GHJU FALL FROM 05-05-[address] [facility] CHAIR AMBULANCE INITIAL SERVICE ENCOUNTER V2381IK LACERATION 04-21-2016 [facility] W/O FOREIGN PHYSICIANS, BODY SCALP PLLC INITIAL ENC T7456CK LACERATION 04-21-2016 [facility] W/O FB [facility] OTHER PART INC HEAD INITIAL ENC J09450 PAIN IN 04-07-[address] [facility] RIGHT LEG AMBULANCE SERVICE E17166 PAIN IN 04-07-2016 [place] RIGHT LOWER MEDICAL LEG IMAGING ASS M7989 OTHER 04-07-2016 [place] SPECIFIED MEDICAL SOFT TISSUE IMAGING ASS DISORDERS C995TSJ UNSPECIFIED 04-07-2016 [place] INJURY OF MEDICAL NECK IMAGING ASS INITIAL ENCOUNTER Z57103C CONTUSION 04-07-2016 [facility] UNS BACK PHYSICIANS, WALL THORAX PLLC INITIAL ENCOUNTER L3828NB CONTUSION 04-07-2016 [facility] OF RIGHT PHYSICIANS, LOWER LEG PLLC INITIAL ENCOUNTER A9075IE UNS INJURY 04-07-2016 [place] RT LOWER MEDICAL LEG INITIAL IMAGING ASS ENCOUNTER V953HOD FALL ON 04-07-2016 [facility] FROM [facility] AMBULANCE STAIRS SERVICE STEPS INITIAL ENCOUNTER T1491 SUICIDE 03-14-2016 [facility] ATTEMPT AMBULANCE SERVICE L9368ZW LACERATION 03-04-2016 [place] W/O FB UNS MEDICAL PART HEAD IMAGING ASS INITIAL ENC F29830 OTHER 02-14-2016 [facility] EPILEPSY [facility] NOT INC INTRACTABLE WITHOUT SE Q41843 PAIN IN 02-14-2016 [place] UNSPECIFIED MEDICAL HIP IMAGING ASS O96797E STRAIN 02-14-2016 [facility] MUSCLE PHYSICIANS, FASCIA & PLLC TENDON LOW BACK INITIAL B9900QH UNSPECIFIED 02-14-2016 [place] INJURY MEDICAL LOWER BACK IMAGING ASS INITIAL ENCOUNTER Z9181 HISTORY OF 02-14-2016 [facility] FALLING [facility] INC A32019 CELLULITIS 01-19-2016 [facility] OF TRUNK PHYSICIANS, UNSPECIFIED PLLC J449 CHRONIC 01-14-2016 [facility] OBSTRUCTIVE MEDICAL PULMONARY RESPONSE DISEASE UNS R32 UNSPECIFIED 01-13-[address] [facility] URINARY AMBULANCE INCONTINENC SERVICE E L4737PW ABRASION 01-01-2016 [place] OTHER PART MEDICAL OF HEAD IMAGING ASS INITIAL ENCOUNTER V920I6B CONCUSSION 01-01-2016 [facility] WITHOUT LOC PHYSICIANS, INITIAL PLLC ENCOUNTER G8911 ACUTE PAIN 12-22-[address] [facility] DUE TO AMBULANCE TRAUMA SERVICE E9328XK CONTUSION 12-22-2015 [facility] OTHER PART PHYSICIANS, OF HEAD PLLC INITIAL ENCOUNTER A91705R CONTUSION 12-22-2015 [facility] RT FRONT [facility] WALL THORAX INC INITIAL ENCOUNTER L40668Q CONTUSION 12-22-2015 [facility] LEFT FRONT [facility] WALL THORAX INC INITIAL ENC F83606D CONTUSION 12-22-2015 [facility] UNS FRONT PHYSICIANS, WALL THORAX PLLC INITIAL ENCNTR O9682PE CONTUSION 12-22-2015 [facility] OF LEFT [facility]OS[facility] KNEE INC INITIAL ENCOUNTER Z043 ENCOUNTER 12-22-2015 [place] EXAM & MEDICAL OBSERVATION IMAGING ASS FOLLOW OTH ACCIDENT R04065 GEN 09-29-2015 [facility] IDIOPATHIC PHYSICIANS, EPILEPSY PLLC NOT INTRACT W/O STAT EPI G4089 OTHER 09-29-2015 [facility] SEIZURES [facility] INC R400 SOMNOLENCE 09-27-[address] [facility] AMBULANCE SERVICE R404 TRANSIENT 09-23-2015 [place] ALTERATION MEDICAL OF IMAGING ASS AWARENESS S785R1U ADVERSE 09-23-2015 [facility] EFFECT [facility] HYDANTOIN INC DERIVATIVES INITIAL ENC P251U5E UNDERDOSING 09-23-2015 [facility] HYDANTOIN PHYSICIANS, DERIVATIVES PLLC INITIAL ENCNTR X22IMGN FALL FROM 09-18-2015 [facility] INITIAL AMBULANCE ENCOUNTER SERVICE G4733 OBSTRUCTIVE 09-01-2015 [facility] ADULT MEDICAL PEDIATRIC EQUIPME K529 NONINFECTIV 08-02-2015 [facility] E PHYSICIANS GASTROENTER GROUP ITIS & COLITIS UNS I509 HEART 07-23-2015 [facility] FAILURE [facility] UNSPECIFIED INC R197 DIARRHEA 07-17-2015 [facility] UNSPECIFIED PHYSICIANS GROUP Z1211 ENCOUNTER 07-17-2015 [facility] SCREENING PHYSICIANS MALIGNANT GROUP NEOPLASM OF COLON J029 ACUTE 06-29-2015 [facility]BIN[facility] PHARYNGITIS PHYSICIANS LA UNSPECIFIED Z23 ENCOUNTER 06-29-2015 [facility] IMMUNIZATIO N R102 PELVIC AND 06-26-2015 [place] PERINEAL MEDICAL PAIN IMAGING ASS G6182LV CONTUSION 06-26-2015 [facility] OF RIGHT PHYSICIANS, HIP INITIAL PLLC ENCOUNTER 38118 DEGEN 06-07-2015 [facility] [place] LUMBAR/LUMB [facility]OPAEDIC OSACRAL S PLC INTERVERTEB RAL DISC 02425 06-07-2015 [facility] TRAN[facility] ION SER 920 CONTUSION 05-29-2015 [facility] OF FACE PHYSICIANS, SCALP AND PLLC NECK EXCEPT EYE 34957 HEAD 05-29-2015 [facility] INJURY, PHYSICIANS, UNSPECIFIED PLLC E8889 UNSPECIFIED 05-29-2015 [facility] FALL AMBULANCE SERVICE 7242 LUMBAGO 05-24-2015 [facility] 490 BRONCHITIS 05-14-2015 [facility] NOT PHYSICIANS, SPECIFIED PLLC ACUTE OR CHRONIC 514 PULMONARY 05-14-[address] [facility] CONGESTION AMBULANCE AND SERVICE HYPOSTASIS 16120 SHORTNESS 05-14-2015 [place] OF BREATH MEDICAL IMAGING ASS 87697 WHEEZING 05-14-[address] [facility] AMBULANCE SERVICE 7862 COUGH 05-14-2015 [facility] 12527 OBSTRUCTIVE 05-07-2015 [facility] SLEEP PHYSICIANS APNEA GROUP 470 DEVIATED 05-07-2015 [facility] NASAL PHYSICIANS SEPTUM GROUP 4779 ALLERGIC 05-07-2015 [facility] RHINITIS PHYSICIANS CAUSE GROUP UNSPECIFIED 19567 MACROGLOSSI 05-07-2015 [facility] A PHYSICIANS GROUP 1101 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 RODRIGUEZ OSIS OF NAIL 46120 DIAB 04-19-2015 [facility] R[facility] W/PERIPH CIRC D/O TYPE II/UNS NOT UNCNTRL 7011 ACQUIRED 04-19-2015 [facility] RODRIG[facility] KERATODERMA 7295 PAIN IN 04-19-2015 [facility] ROD[facility]IG[facility] SOFT TISSUES OF LIMB 7823 EDEMA 04-19-2015 [facility] RODRIGUE[facility] 250 DIABETES 02-16-2015 [facility] 7245 UNSPECIFIED 02-16-2015 RICKIE COLVIN BACKACHE 33827 DIAB W/O 01-17-2015 [facility] COMP TYPE [place] II/UNS NOT LLC STATED UNCNTRL 29216 OBESITY, 01-17-2015 [facility] UNSPECIFIED [place] LLC 4019 UNSPECIFIED 01-17-2015 [facility] ESSENTIAL [place] HYPERTENSIO LLC N 47864 UNSPECIFIED 01-17-2015 [facility] SLEEP [place] APNEA [facility] 54952 OTHER 01-04-2015 [facility] CHRONIC [place] [facility] 3569 UNSPEC 01-04-2015 [facility] HEREDIT&IDI [place] [facility] PERIPHERAL NEUROPATHY 69406 ASTHMA, 01-04-2015 [facility] 217 BENIGN 12-27-2014 [facility] [place] [facility] 2689 UNSPECIFIED 12-27-2014 [facility]ITAM[facility] D [place] [facility] 2768 HYPOPOTASSE 12-27-2014 [facility] 10570 UNSPECIFIED 12-27-2014 [facility] SITE UNSPECIFIED V1249 OTHER 12-27-2014 DISORDERS [place] [facility] SYSTEM&SENS E ORGANS V741 SCREENING 12-27-2014 EXAMINATION [place] PULMONARY TUBERCULOSI S 6259 UNSPEC 11-30-2014 SYMPTOM [place] [facility] W/FEMALE GENITAL ORGANS 03210 CHEST PAIN 11-20-2014 [place] [address] OTHER CHEST 11-16-2014 [facility] PAIN [place] [facility] 2724 OTHER AND 11-02-2014 [facility] UNSPECIFIED [facility] HYPERLIPIDE ADIS 96463 OTHER ACUTE 11-02-2014 [facility] PAIN [facility] 64363 DIARRHEA 11-02-2014 LAB [facility] 0093 DIARRHEA OF 08-31-2014 [facility] PRESUMED [place] [facility] ORIGIN V4589 OTHER 08-10-2014 POSTSURGICA [place] [facility] STATUS [facility] OTHER 7231 CERVICALGIA 07-15-2014 [facility] 7802 SYNCOPE AND 07-15-2014 [facility]LLAPSE [facility] 7840 HEADACHE 07-15-2014 [facility] 8509 UNSPECIFIED 07-15-2014 EMERGENCY CONCUSSION CARE [facility] 15215 CONTUSION 07-15-2014 EMERGENCY OF BACK CARE PHYS [facility] V1588 PERSONAL 07-15-2014 EMERGENCY HISTORY OF CARE PHYS [facility]ALL [facility] 2859 UNSPECIFIED 05-29-2014 LAB [facility] ANEMIA YFN HOLDINGS 36566 OSTEOARTHRO 05-29-2014 LAB OTIS S UNSPEC YFN GEN/LOC OTH HOLDINGS SPEC SITES 7062 SEBACEOUS 05-17-2014 THE [facility] , 13821 PSYCHOPHYSI 05-06-2014 EMERGENCY AMANDA VISUAL CARE PHYS DISTURBANCE [facility] S 7801 HALLUCINATI 05-06-2014 EMERGENCY ONS CARE PHYS [facility] 58372 OPEN WOUND 05-06-2014 EMERGENCY WRIST CARE PHYS WITHOUT [facility] MENTION COMPLICATIO N 2512 HYPOGLYCEMI 04-20-2014 [facility] A, CO UNSPECIFIED AMBULANCE TAXIN 94154 ASTHMA 04-20-2014 ST UNSPECIFIED [facility] WITH FT CRUZ EXACERBATIO N 7810 ABNORMAL 04-20-2014 ST INVOLUNTARY [facility] MOVEMENTS FT CRUZ V1582 PERS HX 04-20-2014 ST TOBACCO USE [facility] PRESENTING FT CRUZ [facility] V5869 LONG-TERM 04-20-2014 ST (CURRENT) [facility] USE OF [facility] OTHER MEDICATIONS 7213 LUMBOSACRAL 04-05-2014 ST [facility] SPONDYLOSIS FT CRUZ WITHOUT MYELOPATHY 83117 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 V1529 PERSONAL 01-05-2014 ST HISTORY OF [facility] SURGERY TO AYAAN ARROYO OTHER ORGANS 18173 UNSPEC 12-27-2013 ST EPILEPSY [facility] WITHOUT PHYSICIANS MENTION INTRACT EPILEPSY 6829 CELLULITIS 12-27-2013 ST AND ABSCESS [facility] OF PHYSICIANS UNSPECIFIED SITE 47503 NUCLEAR 12-13-2013 REHANA Shannon CATARACTNOLVIA, OD, NONSENILE PSC 3671 MYOPIA 12-13-2013 REHANA DE SOUZA, OD, PSC 2599 UNSPECIFIED 11-18-2013 ST ENDOCRINE [facility] DISORDER PHYSICIANS 43239 MORBID 11-18-2013 ST OBESITY [facility]ANS 2089 UNSPECIFIED 11-18-2013 ST SINUSITIS [facility] PHYSICIANS 02114 PAIN IN 11-12-2013 [facility]IA JOINT, CO MULTIPLE AMBULANCE SITES TAXIN 82838 OTHER 11-12-2013 [facility] ALTERATION CO OF AMBULANCE CONSCIOUSNE TAXIN SS 5262 OTHER CYSTS 11-11-2013 ST OF JAWS [facility] FT CRUZ 6820 CELLULITIS 11-04-2013 ST AND ABSCESS [facility] OF FACE PHYSICIANS 51630 NONUNION OF 10-04-2013 [facility] FRACTURE H ORTHOPAE 47015 CLOSED 10-04-2013 [place] FRACTURE H ORTHOPAE DISTAL PHALANX OR PHALANGES HAND 8472 LUMBAR 09-20-2013 ST SPRAIN AND [facility] STRAIN [facility] V7260 LABORATORY 08-09-2013 ST EXAMINATION [facility] FT CRUZ UNSPECIFIED 93886 CLOSED 08-03-2013 INDEPENDENT FRACTURE UNSPEC ANESTHESIOL PHALANX/PHA OGIST LANGES HAND 94315 OTHER 08-01-2013 ST ABNORMAL [facility] GLUCOSE PHYSICIANS V0481 NEED 08-01-2013 ST PROPHYLACTI [facility] C PHYSICIANS VACCINATION &INOCULATIO N FLU V180 FAMILY 08-01-2013 ST HISTORY OF [facility] DIABETES PHYSICIANS MELLITUS 25557 OTHER 07-17-2013 RADIOLOGY CONVULSIONS ASSOCIATES OF [facility] 17578 ALTERED 07-17-2013 [facility] MENTAL [facility] STATUS OF [facility] E8842 ACCIDENTAL 07-17-2013 [facility]IA FALL FROM CO CHAIR AMBULANCE TAXIN 40362 GENERALIZED 06-21-2013 [place] PAIN AMBULETTE AND AMBUL 84374 PLANTAR 06-14-2013 ST FASCIAL [facility] FIBROMATOSI PHYSICIANS S 9595 INJURY 06-14-2013 ST OTHER AND [facility] UNSPECIFIED PHYSICIANS FINGER 305.1 305.1 05-23-[address] [place] [address] [facility] 401.9 401.9 05-23-2013 [place] HYPERTENSIO [facility] N NOS Hospital 493.90 493.90 05-23-2013 [place] ASTHMA, [facility] UNSPECIFIED Hospital 780.39 780.39 05-23-2013 [place] OTHER [facility] CONVULSIONS Hospital 786.59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 54 05 06 30 30 00 CL Ac TA 62 -2 -1 .0 00 IN ti NM 97 7- 6- 00 00 IC ve N 94 20 20 43 D3 10 17 17 20 PH 1 83 AR 5, MA 00 CY 0 UN IT TA BL ET OM 49 05 06 60 30 00 CL Ac EG 88 -2 -1 .0 00 IN ti A- 40 7- 6- 00 00 IC ve 3 01 20 20 43 ET 90 17 17 20 PH HY 8 82 AR L MA ES CY TE RS 1 GM CA P TO 68 05 06 60 30 00 CL Ac PI 46 -2 -1 .0 00 IN ti RA 20 7- 6- 00 00 IC ve MA 11 20 20 43 TE 06 17 17 20 PH 0 84 AR 20 MA 0 CY MG TA BL ET VE 00 05 06 18 25 00 CL Ac NT 17 -2 -1 .0 00 IN ti OL 30 7- 6- 00 00 IC ve IN 68 20 20 43 22 17 17 20 PH HF 0 90 AR A MA 90 CY MC G IN [place] LE R CL 16 05 06 60 30 00 CL Ac ON 72 -2 -1 .0 00 IN ti AZ 90 4- 6- 00 00 IC ve EP 13 20 20 43 AM 60 17 17 19 PH 0 71 AR 0. MA 5 CY MG TA BL ET LE 13 05 06 60 30 00 CL Ac VE 66 -2 -1 .0 00 IN ti TI 80 7- 6- 00 00 IC ve RA 01 20 20 42 CE 76 17 17 69 PH TA 0 93 AR M MA 1, CY 00 0 MG TA BL ET BU 00 05 06 60 30 00 CL Ac SP 37 -2 -1 .0 00 IN ti IR 81 7- 6- 00 00 IC ve ON 15 20 20 42 E 00 17 17 69 PH HC 1 94 AR L MA 10 CY MG TA BL ET ME 57 05 06 60 30 00 CL Ac TO 23 -2 -1 .0 00 IN ti VA 70 7- 6- 00 00 IC ve OL 10 20 20 42 OL 09 17 17 94 PH 9 79 AR TA MA RT CY RA TE 25 MG TA B TR 00 05 06 30 30 00 CL Ac IA 59 -2 -1 .0 00 IN ti MT 10 7- 6- 00 00 IC ve ER 42 20 20 43 EN 40 17 17 20 PH E- 5 88 AR HC MA TZ CY 37 .5 -2 5 MG TB OM 60 05 06 30 30 00 CL Ac EP 50 -2 -1 .0 00 IN ti RA 50 7- 6- 00 00 IC ve ZO 06 20 20 43 LE 50 17 17 20 PH [address] MA CY 20 MG CA PS UL E FE 00 05 06 30 30 00 CL Ac NO 11 -1 -1 .0 00 IN ti FI 55 3- 6- 00 00 IC ve BR 51 20 20 42 AT 11 17 17 94 PH E 0 75 AR 54 MA CY MG TA BL ET BE 00 05 06 90 30 00 CL Ac NZ 60 -2 -1 .0 00 IN ti TR 32 4- 6- 00 00 IC ve OP 43 20 20 43 IN 42 17 17 19 PH E 1 66 AR ME MA S CY 1 MG TA BL ET OL 66 05 06 30 30 00 CL Ac AN 99 -2 -1 .0 00 IN ti ZA 30 4- 6- 00 00 IC ve PI 68 20 20 43 NE 33 17 17 19 PH 0 68 AR 10 MA CY MG TA BL ET MO 16 05 06 30 30 00 CL Ac NT 72 -2 -1 .0 00 IN ti EL 90 7- 6- 00 00 IC ve UK 11 20 20 43 91 17 17 20 PH T 7 89 AR SO MA D CY 10 MG TA BL ET FL 50 05 06 16 30 00 CL Ac UT 38 -2 -1 .0 00 IN ti IC 30 7- 6- 00 00 IC ve 70 20 20 42 ON 01 17 17 94 PH E 6 86 AR VA MA OP CY 50 MC G SP RA Y PA 00 05 06 30 10 00 CL Ac IN 11 -2 -1 .0 00 IN ti 30 7- 6- 00 00 IC ve RE 21 20 20 42 LI 77 17 17 73 PH EF 1 43 AR MA ER CY [address] ET PA 00 05 06 30 10 00 CL Ac IN 11 -1 -0 .0 00 IN ti 30 6- 9- 00 00 IC ve RE 21 20 20 42 LI 77 17 17 73 PH EF 1 43 AR MA ER CY [address] ET RI 13 05 06 1 90 30 CL 43 Ac SP 66 -2 -0 0. IN 19 HF ti ER 80 4- 8- 00 IC 70 AQ ve ID 04 20 20 0 ON 06 17 17 PH MU E 0 AR [place] 4 MA MM MG CY AD TA LL BL C ET CL 16 05 06 30 30 00 CL Ac ON 72 -0 -0 .0 00 IN ti AZ 90 8- 2- 00 00 IC ve EP 13 20 20 43 AM 60 17 17 04 PH 0 76 AR 0. MA 5 CY MG TA BL ET RI 13 05 90 30 00 CL Ac SP 66 -0 -0 .0 00 IN ti ER 80 9- 2- 00 00 IC ve ID 04 20 20 42 ON 06 17 17 94 PH E 0 77 AR 4 MA MG CY TA BL ET ME 53 05 06 60 30 00 CL Ac TF 74 -1 -0 .0 00 IN ti OR 60 3- 2- 00 00 IC ve NM 21 20 20 42 N 81 17 17 94 PH HC 0 74 AR L MA 50 CY 0 MG TA BL ET PH 65 05 06 12 30 00 CL Ac EN 86 -1 -0 0. 00 IN ti YT 20 3- 2- 00 00 IC ve OI 69 20 20 0 42 N 20 17 17 94 PH SO 1 76 AR D MA EX CY T 10 0 MG CA P SE 16 05 06 1 60 30 CL 43 Ac RT 72 -2 -0 0. IN 19 HF ti RA 90 4- 1- 00 IC 69 AQ ve LI 21 20 20 0 NE 71 17 17 PH MU 6 AR [place] HC MA MM L CY AD 10 0 LL MG C TA BL ET BE 00 05 06 1 90 30 CL 43 Ac NZ 60 -2 -0 0. IN 19 HF ti TR 32 4- 1- 00 IC 66 AQ ve OP 43 20 20 0 IN 42 17 17 PH MU E 1 AR [place] ME MA MM S CY AD 1 MG LL C TA BL ET OL 66 05 06 1 30 30 CL 43 Ac AN 99 -2 -0 0. IN 19 HF ti ZA 30 4- 1- 00 IC 68 AQ ve PI 68 20 20 0 NE 33 17 17 PH MU 0 AR [place] 10 MA MM CY AD MG LL TA C BL ET CL 16 05 06 1 60 30 CL 43 Ac ON 72 -2 -0 0. IN 19 HF ti AZ 90 4- 1- 00 IC 71 AQ ve EP 13 20 20 0 AM 60 17 17 PH MU 0 AR [place] 0. MA MM 5 CY AD MG LL TA C BL ET LE 13 05 06 11 [address] Ac VE 66 -3 -0 0. IN 23 ON ti TI 80 0- 1- 00 IC 91 E ve RA 01 20 20 0 DI CE 76 17 17 PH XI TA 0 AR E M MA D 1, CY 00 0 LL MG C TA BL ET CA 58 05 06 11 [address] Ac RA 91 -3 -0 00 IN 23 ON ti FA 40 0- 1- .0 IC 93 E ve TE 17 20 20 00 DI 1 01 17 17 PH XI 4 AR E GM MA D /1 CY 0 ML LL C MARCIAL SP FL 50 05 06 11 [address] Ac UT 38 -3 -0 0. IN 23 ON ti IC 30 0- 1- 00 IC 89 E ve 70 20 20 0 DI ON 01 17 17 PH XI E 6 AR E VA MA D OP CY 50 LL C MC G SP RA Y BU 00 05 06 11 [address] Ac SP 37 -3 -0 0. IN 23 ON ti IR 81 0- 1- 00 IC 90 E ve ON 15 20 20 0 DI E 00 17 17 PH XI HC 1 AR E L MA D 10 CY MG LL C TA BL ET PH 65 04 06 2 12 30 CL 42 FR Ac EN 86 -2 -0 00 IN 94 YM ti YT 20 7- 1- .0 IC 76 AN ve OI 69 20 20 00 N 20 17 17 PH EU SO 1 AR GO D MA ND EX CY A T F 10 LL 0 C MG CA P ME 53 04 06 10 60 30 CL 42 FR Ac TF 74 -2 -0 0. IN 94 YM ti OR 60 7- 1- 00 IC 74 AN ve NM 21 20 20 0 N 81 17 17 PH EU HC 0 AR GO L MA ND 50 CY A 0 F MG LL C TA BL ET ME 57 05 05 60 30 00 CL Ac TO 23 -0 -2 .0 00 IN ti VA 70 1- 6- 00 00 IC ve OL 10 20 20 42 OL 09 17 17 94 PH 9 79 AR TA MA RT CY RA TE 25 MG TA B TO 68 05 05 60 30 00 CL Ac PI 46 -0 -2 .0 00 IN ti RA 20 1- 6- 00 00 IC ve MA 11 20 20 42 TE 06 17 17 94 PH 0 85 AR 20 MA 0 CY MG TA BL ET OM 49 05 05 60 30 00 CL Ac EG 88 -0 -2 .0 00 IN ti A- 40 1- 6- 00 00 IC ve 3 01 20 20 42 ET 90 17 17 94 PH HY 8 88 AR L MA ES CY TE RS 1 GM CA P BR 00 05 05 60 30 00 CL Ac EO 17 -0 -2 .0 00 IN ti 30 1- 6- 00 00 IC ve EL 85 20 20 42 LI 91 17 17 94 PH PT 0 81 AR A MA 10 CY 0- 25 MC G IN H OX 51 05 05 12 30 00 CL Ac CA 99 -0 -2 0. 00 IN ti RB 10 1- 6- 00 00 IC ve AZ 29 20 20 0 42 EP 30 17 17 98 PH IN 1 15 AR E MA 30 CY 0 MG TA BL ET MO 27 05 05 30 30 00 CL Ac NT 24 -0 -2 .0 00 IN ti EL 10 1- 6- 00 IC ve UK 01 20 20 42 80 17 17 94 PH T 9 83 AR SO MA D CY 10 MG TA BL ET OM 60 05 05 30 30 00 CL Ac EP 50 -0 -2 .0 00 IN ti RA 50 1- 6- 00 00 IC ve ZO 06 20 20 42 LE 50 17 17 94 PH [address] MA CY 20 MG CA PS UL E TH 54 05 05 30 30 00 CL Ac ER 62 -0 -2 .0 00 IN ti AT 90 1- 6- 00 IC ve RU 01 20 20 42 M 17 17 17 98 PH CO 0 44 AR MP MA LE CY TE TA BL ET VE 00 05 05 18 25 00 CL Ac NT 17 -0 -2 .0 00 IN ti OL 30 - 6 00 IC ve IN 68 20 20 42 22 17 17 94 PH HF 0 82 AR A MA 90 CY MC G IN [place] LE R CA 58 05 05 60 30 00 CL Ac RA 91 -0 -2 0. 00 IN ti FA 40 5- 6- 00 00 IC ve TE 17 20 20 0 42 1 01 17 17 70 PH 4 43 AR GM MA /1 CY 0 ML MARCIAL SP LE 13 05 05 60 30 00 CL Ac VE 66 -0 -2 .0 00 IN ti TI 80 1- 6- 00 00 IC ve RA 01 20 20 42 CE 76 17 17 69 PH TA 0 93 AR M MA 1, CY 00 0 MG TA BL ET BU 00 05 05 60 30 00 CL Ac SP 37 -0 -2 .0 00 IN ti IR 81 1- 6- 00 00 IC ve ON 15 20 20 42 E 00 17 17 69 PH HC 1 94 AR L MA 10 CY MG TA BL ET OL 66 05 05 30 30 00 CL Ac AN 99 -0 -2 .0 00 IN ti ZA 30 1- 6 00 IC ve PI 68 20 20 42 NE 53 17 17 97 PH 0 92 AR 20 MA CY MG TA BL ET 54 05 05 30 30 00 CL Ac TA 62 -0 -2 .0 00 IN ti NM 97 1- 6- 00 00 IC ve N 94 20 20 42 D3 10 17 17 94 PH 1 87 AR 5, MA 00 CY 0 UN IT TA BL ET TR 00 05 05 30 30 00 CL Ac IA 59 -0 -2 .0 00 IN ti MT 10 1- 6- 00 00 IC ve ER 42 20 20 42 EN 40 17 17 94 PH E- 5 84 AR HC MA TZ CY 37 .5 -2 5 MG TB GA 68 04 05 18 26 00 CL Ac BA 38 -2 -1 0. 00 IN ti PE 20 7- 9- 00 00 IC ve NT 20 20 20 0 42 IN 40 17 17 69 PH 5 96 AR 60 MA 0 CY MG TA BL ET PH 51 04 05 12 30 00 CL Ac EN 67 -1 -1 0. 00 IN ti YT 24 7- 2- 00 00 IC ve OI 11 20 20 0 42 N 10 17 17 69 PH SO 1 87 AR D MA EX CY T 10 0 MG CA P FE 00 04 05 90 30 00 CL Ac NO 11 -1 -1 .0 00 IN ti FI 55 7- 2- 00 00 IC ve BR 51 20 20 42 AT 11 17 17 70 PH E 0 01 AR 54 MA CY MG TA BL ET ME 53 04 05 60 30 00 CL Ac TF 74 -1 -1 .0 00 IN ti OR 60 7- 2- 00 00 IC ve NM 21 20 20 42 N 81 17 17 70 PH HC 0 37 AR L MA 50 CY 0 MG TA BL ET AZ 68 04 05 6. 5 00 CL Ac IT 18 -1 -1 00 00 IN ti HR 00 9- 2- 0 00 IC ve OM 16 20 20 42 YC 01 17 17 85 PH IN 3 97 AR MA 25 CY 0 MG TA BL ET BE 00 04 05 27 30 00 CL Ac NZ 60 -1 -1 0. 00 IN ti TR 32 9- 2- 00 00 IC ve OP 43 20 20 0 42 IN 42 17 17 69 PH E 1 98 AR ME MA S CY 1 MG TA BL ET 54 04 05 30 30 00 CL Ac TA 62 -0 -0 .0 00 IN ti NM 97 3- 5- 00 00 IC ve N 94 20 20 42 D3 10 17 17 70 PH 1 36 AR 5, MA 00 CY 0 UN IT TA BL ET TH 54 04 05 30 30 00 CL Ac ER 62 -0 -0 .0 00 IN ti AT 90 3- 5- 00 00 IC ve RU 01 20 20 42 M 17 17 17 70 PH CO 0 39 AR MP MA LE CY TE TA BL ET MO 29 04 05 30 30 00 CL Ac NT 30 -0 -0 .0 00 IN ti EL 00 4- 5- 00 00 IC ve UK 22 20 20 42 01 17 17 69 PH T 0 95 AR SO MA D CY 10 MG TA BL ET BU 00 04 05 60 30 00 CL Ac SP 37 -0 -0 .0 00 IN ti IR 81 4- 5- 00 00 IC ve ON 15 20 20 42 E 00 17 17 69 PH HC 1 94 AR L MA 10 CY MG TA BL ET ME 00 04 05 60 30 00 CL Ac TO 37 -0 -0 .0 00 IN ti VA 80 5- 5- 00 00 IC ve OL 01 20 20 42 OL 80 17 17 70 PH 5 38 AR TA MA RT CY RA TE 25 MG TA B VE 00 04 05 18 25 00 CL Ac NT 17 -0 -0 .0 00 IN ti OL 30 4- 5- 00 00 IC ve IN 68 20 20 42 22 17 17 70 PH HF 0 47 AR A MA 90 CY MC G IN [place] LE R SE 59 04 05 60 30 00 CL Ac RT 76 -1 -0 .0 00 IN ti RA 24 0- 5- 00 00 IC ve LI 91 20 20 42 NE 00 17 17 70 PH 5 33 AR HC MA L CY 10 0 MG TA BL ET PA 00 04 05 30 10 00 CL Ac IN 11 -1 -0 .0 00 IN ti 30 1- 5- 00 00 IC ve RE 21 20 20 42 LI 77 17 17 73 PH EF 1 43 AR MA ER CY [address] ET CL 16 04 05 90 30 00 CL Ac ON 72 -0 -0 .0 00 IN ti AZ 90 3- 5- 00 00 IC ve EP 13 20 20 42 AM 60 17 17 70 PH 0 44 AR 0. MA 5 CY MG TA BL ET TO 68 04 05 60 30 00 CL Ac PI 46 -0 -0 .0 00 IN ti RA 20 3- 5- 00 00 IC ve MA 11 20 20 42 TE 06 17 17 70 PH 0 34 AR 20 MA 0 CY MG TA BL ET TR 00 03 05 30 30 00 ME Ac IA 78 -0 -0 .0 00 D ti MT 11 6- 5- 00 13 CA ve ER 12 20 20 84 RE EN 30 17 17 30 E- 5 85 PH HC AR TZ MA CY 37 .5 -2 5 MG TB OM 00 03 05 60 30 00 ME Ac EP 78 -0 -0 .0 00 D ti RA 12 3- 5- 00 13 CA ve ZO 79 20 20 83 RE LE 01 17 17 [address] AR MA 20 CY MG CA PS UL E RI 13 04 05 90 30 00 CL Ac SP 66 -1 -0 .0 00 IN ti ER 80 3- 5- 00 00 IC ve ID 04 20 20 42 ON 06 17 17 70 PH E 0 32 AR 4 MA MG CY TA BL ET FL 50 04 05 16 30 00 CL Ac UT 38 -0 -0 .0 00 IN ti IC 30 3- 5- 00 00 IC ve 70 20 20 42 ON 01 17 17 70 PH E 6 48 AR VA MA OP CY 50 MC G SP RA Y OX 51 04 05 12 30 00 CL Ac CA 99 -0 -0 0. 00 IN ti RB 10 3- 5- 00 00 IC ve AZ 29 20 20 0 42 EP 30 17 17 69 PH IN 1 92 AR E MA 30 CY 0 MG TA BL ET OM 49 04 05 60 30 00 CL Ac EG 88 -0 -0 .0 00 IN ti A- 40 3- 5- 00 00 IC ve 3 01 20 20 42 ET 90 17 17 70 PH HY 8 40 AR L MA ES CY TE RS 1 GM CA P OL 66 04 05 15 30 00 CL Ac AN 99 -0 -0 .0 00 IN ti ZA 30 3- 5- 00 00 IC ve PI 68 20 20 42 NE 53 17 17 70 PH 0 42 AR 20 MA CY MG TA BL ET LE 13 04 05 60 30 00 CL Ac VE 66 -0 -0 .0 00 IN ti TI 80 4- 5- 00 00 IC ve RA 01 20 20 42 CE 76 17 17 69 PH TA 0 93 AR M MA 1, CY 00 0 MG TA BL ET BR 00 04 05 60 30 00 CL Ac EO 17 -0 -0 .0 00 IN ti 30 4- 5- 00 00 IC ve EL 85 20 20 42 LI 91 17 17 70 PH PT 0 46 AR A MA 10 CY 0- 25 MC G IN H CL 00 03 04 42 14 00 ME Ac ON 09 -2 -1 .0 00 D ti AZ 30 0- 4- 00 13 CA ve EP 83 20 20 91 RE AM 20 17 17 48 1 46 PH 0. AR 5 MA MG CY TA BL ET PH 51 03 04 12 30 00 ME Ac EN 67 -2 -1 0. 00 D ti YT 24 0- 4- 00 13 CA ve OI 11 20 20 0 92 RE N 10 17 17 13 SO 3 07 PH D AR EX MA T CY 10 0 MG CA P FE 68 03 04 30 30 00 ME Ac NO 18 -2 -1 .0 00 D ti FI 00 2- 4- 00 13 CA ve BR 36 20 20 92 RE AT 20 17 17 61 E 9 79 PH 54 AR MA MG CY TA BL ET GA 16 03 04 30 5 00 ME Ac BA 71 -2 -1 .0 00 D ti PE 40 2- 4- 00 13 CA ve NT 33 20 20 92 RE IN 00 17 17 61 2 89 PH 60 AR 0 MA MG CY TA BL ET ME 65 03 04 60 30 00 ME Ac TF 86 -2 -1 .0 00 D ti OR 20 2- 4- 00 13 CA ve NM 00 20 20 92 RE N 89 17 17 61 HC 9 80 PH L AR 50 MA 0 CY MG TA BL ET [place] 00 03 04 15 [address] 57 -2 -1 .0 00 D ti OP 42 3- 4- 00 13 CA ve 00 20 20 94 RE 10 81 17 17 19 0, 5 10 PH 00 AR 0 MA UN CY IT S/ GM PO WD ER BE 00 03 04 90 30 00 ME Ac NZ 83 -2 -1 .0 00 D ti TR 21 4- 4- 00 13 CA ve OP 08 20 20 93 RE IN 10 17 17 91 E 0 68 PH ME AR S MA 1 CY MG TA BL ET TA 00 03 04 30 30 00 ME Ac B- 90 -2 -1 .0 00 D ti A- 40 4- 4- 00 13 CA ve 53 20 20 93 RE TE 08 17 17 91 0 60 PH TA AR BL MA ET CY 00 03 04 30 30 00 ME Ac TA 90 -1 -0 .0 00 D ti NM 45 4- 7- 00 13 CA ve N 98 20 20 88 RE D3 66 17 17 22 0 82 PH 5, AR 00 MA 0 CY UN IT CA PS UL E HY 64 03 04 [address] 98 -1 -0 .0 00 D ti OX 00 5- 7- 00 13 CA ve YZ 17 20 20 90 RE IN 00 17 17 33 E 5 49 PH PA AR M MA 50 CY MG CA P BA 00 03 04 30 7 00 ME Ac NO 90 -1 -0 .0 00 D ti PH 45 6- 7- 00 13 CA ve EN 30 20 20 90 RE 66 17 17 91 25 0 86 PH AR MG MA CY CA PS UL E RI 00 03 04 90 30 00 ME Ac SP 37 -1 -0 .0 00 D ti ER 83 7- 7- 00 13 CA ve ID 51 20 20 90 RE ON 49 17 17 65 E 1 80 PH 4 AR MG MA CY TA BL ET CA 58 03 04 42 21 00 ME Ac RA 91 -1 -0 0. 00 D ti FA 40 8- 7- 00 13 CA ve TE 17 20 20 0 89 RE 1 01 17 17 14 4 40 PH GM AR /1 MA 0 CY ML MARCIAL SP GA 16 03 04 30 5 00 ME Ac BA 71 -1 -0 .0 00 D ti PE 40 8- 7- 00 13 CA ve NT 33 20 20 87 RE IN 00 17 17 51 2 28 PH 60 AR 0 MA MG CY TA BL ET SE 68 03 04 60 30 00 ME Ac RT 18 -1 -0 .0 00 D ti RA 00 4- 7- 00 13 CA ve LI 35 20 20 88 RE NE 30 17 17 22 9 83 PH HC AR L MA 10 CY 0 MG TA BL ET OM 65 03 03 60 30 00 ME Ac EG 16 -0 -3 .0 00 D ti A- 20 7- 1- 00 13 CA ve 3 03 20 20 84 RE ET 41 17 17 80 HY 6 63 PH L AR ES MA TE CY RS 1 GM CA P [place] 00 03 03 [address] 57 -0 -3 .0 00 D ti OP 42 9- 1- 00 13 CA ve 00 20 20 87 RE 10 81 17 17 25 0, 5 91 PH 00 AR 0 MA UN CY IT S/ GM PO WD ER ME 00 03 03 60 30 00 ME Ac TO 37 -1 -3 .0 00 D ti VA 80 0- 1- 00 13 CA ve OL 01 20 20 87 RE OL 80 17 17 06 1 34 PH TA AR RT MA RA CY TE 25 MG TA B OL 60 03 03 30 30 00 ME Ac AN 50 -0 -3 .0 00 D ti ZA 53 6- 1- 00 13 CA ve PI 11 20 20 85 RE NE 30 17 17 07 3 24 PH 10 AR MA MG CY TA BL ET GA 16 03 03 30 5 00 ME Ac BA 71 -0 -3 .0 00 D ti PE 40 6- 1- 00 13 CA ve NT 33 20 20 84 RE IN 00 17 17 30 2 90 PH 60 AR 0 MA MG CY TA BL ET TO 68 03 03 60 30 00 ME Ac PI 46 -0 -3 .0 00 D ti RA 20 8 13 CA ve MA 11 20 20 85 RE TE 06 17 17 60 0 63 PH 20 AR 0 MA MG CY TA BL ET OX 62 03 03 60 30 00 ME Ac CA 75 -0 -3 .0 00 D ti RB 60 8- 1- 00 13 CA ve AZ 18 20 20 85 RE EP 58 17 17 60 IN 8 65 PH E AR 60 MA 0 CY MG TA BL ET GA 16 02 03 90 10 00 ME Ac BA 71 -0 -2 .0 00 D ti PE 40 1 13 CA ve NT 33 20 20 68 RE IN 00 17 17 72 2 76 PH 60 AR 0 MA MG CY TA BL ET OM 65 02 03 60 30 00 ME Ac EG 16 -0 -2 .0 00 D ti A- 20 6 13 CA ve 3 03 20 20 70 RE ET 41 17 17 25 HY 6 04 PH L AR ES MA TE CY RS 1 GM CA P OL 60 02 03 30 30 00 ME Ac AN 50 -0 -2 .0 00 D ti ZA 53 8 13 CA ve PI 11 20 20 71 RE NE 30 17 17 39 3 88 PH 10 AR MA MG CY TA BL ET RI 00 02 03 90 30 00 ME Ac SP 37 -1 -2 .0 00 D ti ER 83 7- 4 00 13 CA ve ID 51 20 20 76 RE ON 49 17 17 37 E 1 72 PH 4 AR MG MA CY TA BL ET TR 00 02 03 30 30 00 ME Ac IA 78 -0 -2 .0 00 D ti MT 11 6 4 13 CA ve ER 12 20 20 70 RE EN 30 17 17 25 E- 5 05 PH HC AR TZ MA CY 37 .5 -2 5 MG TB ME 65 02 03 60 30 00 ME Ac TF 86 -2 -2 .0 00 D ti OR 20 1 13 CA ve NM 00 20 20 77 RE N 89 17 17 69 HC 9 19 PH L AR 50 MA 0 CY MG TA BL ET LO 00 02 03 30 5 00 ME Ac RA 60 -2 -2 .0 00 D ti ZE 34 8- 4- 00 13 CA ve PA 24 20 20 81 RE M 73 17 17 95 1 2 89 PH MG AR MA TA CY BL ET CA 58 02 03 42 21 00 ME Ac RA 91 -2 -2 0. 00 D ti FA 40 8- 00 13 CA ve TE 17 20 20 0 81 RE 1 01 17 17 98 4 45 PH GM AR /1 MA 0 CY ML MARCIAL SP BE 00 02 03 90 30 00 ME Ac NZ 83 -2 -2 .0 00 D ti TR 21 3- 4- 00 13 CA ve OP 08 20 20 79 RE IN 10 17 17 01 E 0 83 PH ME AR S MA 1 CY MG TA BL ET HY 64 02 03 60 [address] 98 -2 -2 .0 00 D ti OX 00 13 CA ve YZ 17 20 20 80 RE IN 00 17 17 47 E 5 79 PH PA AR M MA 50 CY MG CA P MO 27 02 03 30 30 00 ME Ac NT 24 -0 -2 .0 00 D ti EL 10 - 13 CA ve [place] 01 20 20 70 RE 80 17 17 62 T 9 59 PH SO AR D MA 10 CY MG TA BL ET BU 00 02 03 18 30 00 ME Ac SP 09 -0 -2 0. 00 D ti IR 30 3 13 CA ve ON 05 20 20 0 69 RE E 40 17 17 59 HC 5 33 PH L AR 10 MA CY MG TA BL ET SE 68 02 03 60 30 00 ME Ac RT 18 -1 -2 .0 00 D ti RA 00 13 CA ve LI 35 20 20 75 RE NE 30 17 17 76 9 22 PH HC AR L MA 10 CY 0 MG TA BL ET TA 00 02 03 30 30 00 ME Ac B- 90 -2 -2 .0 00 D ti A- 40 3- 4- 00 13 CA ve 53 20 20 79 RE TE 08 17 17 01 0 76 PH TA AR BL MA ET CY ME 00 02 03 60 30 00 ME Ac TO 37 -1 -2 .0 00 D ti VA 80 0- 4- 00 13 CA ve OL 01 20 20 72 RE OL 80 17 17 82 1 27 PH TA AR RT MA RA CY TE 25 MG TA B CL 00 02 03 30 10 00 ME Ac ON 09 -1 -2 .0 00 D ti AZ 30 3- 4- 00 13 CA ve EP 83 20 20 73 RE AM 20 17 17 61 1 77 PH 0. AR 5 MA MG CY TA BL ET 00 02 03 30 30 00 ME Ac TA 90 -1 -2 .0 00 D ti NM 45 3- 4- 00 13 CA ve N 98 20 20 73 RE D3 66 17 17 41 0 90 PH 5, AR 00 MA 0 CY UN IT CA PS UL E OM 00 02 03 60 30 00 ME Ac EP 78 -0 -2 .0 00 D ti RA 12 3- 4- 00 13 CA ve ZO 79 20 20 69 RE LE 01 17 17 [address] AR MA 20 CY MG CA PS UL E LE 16 02 03 62 30 00 ME Ac VE 71 -2 -2 .0 00 D ti TI 40 8- 4- 00 13 CA ve RA 35 20 20 81 RE CE 70 17 17 12 TA 1 59 PH M AR 1, MA 00 CY 0 MG TA BL ET CL 00 01 02 42 14 00 ME Ac ON 09 -3 -2 .0 00 D ti AZ 30 1- 4- 00 13 CA ve EP 83 20 20 67 RE AM 20 17 17 22 1 99 PH 0. AR 5 MA MG CY TA BL ET TO 68 02 02 60 30 00 ME Ac PI 46 -0 -2 .0 00 D ti RA 20 1- 4- 00 13 CA ve MA 11 20 20 68 RE TE 06 17 17 09 0 05 PH 20 AR 0 MA MG CY TA BL ET FE 68 01 02 30 30 00 ME Ac NO 18 -3 -2 .0 00 D ti FI 00 0- 4- 00 13 CA ve BR 36 20 20 66 RE AT 20 17 17 60 E 9 92 PH 54 AR MA MG CY TA LL BL C ET LE 16 01 02 62 30 00 ME Ac VE 71 -3 -2 .0 00 D ti TI 40 0- 4- 00 13 CA ve RA 35 20 20 66 RE CE 70 17 17 60 TA 1 96 PH M AR 1, MA 00 CY 0 MG LL C TA BL ET TA 00 01 02 30 30 00 ME Ac B- 90 -2 -1 .0 00 D ti A- 40 5- 7- 00 13 CA ve 53 20 20 64 RE TE 08 17 17 45 0 22 PH TA AR BL MA ET CY LL C BE 00 01 02 90 30 00 ME Ac NZ 60 -2 -1 .0 00 D ti TR 32 5- 7- 00 13 CA ve OP 43 20 20 64 RE IN 43 17 17 45 E 2 30 PH ME AR S MA 1 CY MG LL TA C BL ET FL 57 01 02 3. 3 00 ME Ac UC 23 -1 -1 00 00 D ti ON 70 8- 7- 0 13 CA ve AZ 00 20 20 62 RE OL 51 17 17 18 E 1 29 PH 15 AR 0 MA MG CY TA LL BL C ET CL 00 01 02 42 14 00 ME Ac ON 09 -1 -1 .0 00 D ti AZ 30 9- 7- 00 13 CA ve EP 83 20 20 62 RE AM 20 17 17 14 1 19 PH 0. AR 5 MA MG CY TA LL BL C ET SE 68 01 02 60 30 00 ME Ac RT 18 -1 -1 .0 00 D ti RA 00 9- 7- 00 13 CA ve LI 35 20 20 62 RE NE 30 17 17 06 9 65 PH HC AR L MA 10 CY 0 MG LL C TA BL ET RI 00 01 02 90 30 00 ME Ac SP 37 -2 -1 .0 00 D ti ER 83 0- 7- 00 13 CA ve ID 51 20 20 62 RE ON 49 17 17 62 E 1 05 PH 4 AR MG MA CY TA BL LL ET C OX 62 01 02 60 30 00 ME Ac CA 75 -1 -1 .0 00 D ti RB 60 6- 7- 00 13 CA ve AZ 18 20 20 59 RE EP 58 17 17 93 IN 8 01 PH E AR 60 MA 0 CY MG LL TA C BL ET HY 64 01 02 60 [address] 98 -1 -1 .0 00 D ti OX 00 6- 7- 00 13 CA ve YZ 17 20 20 60 RE IN 00 17 17 66 E 5 03 PH PA AR M MA 50 CY MG LL C CA P [place] 00 01 02 15 [address] 57 -1 -1 .0 00 D ti OP 42 6- 7- 00 13 CA ve 00 20 20 60 RE 10 81 17 17 87 0, 5 47 PH 00 AR 0 MA UN CY IT S/ LL GM C PO WD ER LO 00 01 02 30 5 00 ME Ac RA 60 -1 -1 .0 00 D ti ZE 34 6- 7- 00 13 CA ve PA 24 20 20 60 RE M 73 17 17 87 1 2 77 PH MG AR MA TA CY BL ET LL C ME 65 01 02 60 30 00 ME Ac TF 86 -2 -1 .0 00 D ti OR 20 3- 7- 00 13 CA ve NM 00 20 20 63 RE N 89 17 17 55 HC 9 12 PH L AR 50 MA 0 CY MG LL TA C BL ET PH 51 01 02 12 30 00 ME Ac EN 67 -2 -1 0. 00 D ti YT 24 4- 7- 00 13 CA ve OI 11 20 20 0 63 RE N 10 17 17 91 SO 3 25 PH D AR EX MA T CY 10 0 LL MG C CA P CL 00 01 02 30 10 00 ME Ac ON 09 -0 -0 .0 00 D ti AZ 30 9- 3- 00 13 CA ve EP 83 20 20 56 RE AM 20 17 17 41 1 12 PH 0. AR 5 MA MG CY TA LL BL C ET 00 01 02 30 30 00 ME Ac TA 90 -1 -0 .0 00 D ti NM 45 4- 3- 00 13 CA ve N 98 20 20 59 RE D3 66 17 17 51 0 17 PH 5, AR 00 MA 0 CY UN IT LL C CA PS UL E CA 58 01 02 42 21 00 ME Ac RA 91 -1 -0 0. 00 D ti FA 40 4- 3- 00 13 CA ve TE 17 20 20 0 60 RE 1 01 17 17 24 4 91 PH GM AR /1 MA 0 CY ML LL MARCIAL C SP OL 60 01 02 30 30 00 ME Ac AN 50 -1 -0 .0 00 D ti ZA 53 0- 3- 00 13 CA ve PI 11 20 20 57 RE NE 30 17 17 17 3 79 PH 10 AR MA MG CY TA LL BL C ET MA 00 01 02 90 30 00 ME Ac PA 90 -1 -0 .0 00 D ti P 45 1- 3- 00 13 CA ve AR 76 20 20 58 RE TH 96 17 17 32 RI 0 21 PH TI AR S MA ER CY 65 LL 0 C MG CP LT ME 00 01 02 60 30 00 ME Ac TO 37 -1 -0 .0 00 D ti VA 80 3- 3- 00 13 CA ve OL 01 20 20 59 RE OL 80 17 17 10 1 96 PH TA AR RT MA RA CY TE LL 25 C MG TA B RO 00 01 02 47 8 00 ME Ac BA 90 -1 -0 3. 00 D ti FE 40 3- 3- 00 13 CA ve N 06 20 20 0 59 RE 10 11 17 17 70 0 6 66 PH MG AR /5 MA CY ML LL SY C RU P BU 00 01 01 18 30 00 ME Ac SP 09 -0 -2 0. 00 D ti IR 30 4- 7- 00 13 CA ve ON 05 20 20 0 54 RE E 40 17 17 32 HC 1 65 PH L AR 10 MA CY MG LL TA C BL ET TO 68 01 01 60 30 00 ME Ac PI 46 -0 -2 .0 00 D ti RA 20 4- 7- 00 13 CA ve MA 11 20 20 53 RE TE 06 17 17 39 0 47 PH 20 AR 0 MA MG CY TA LL BL C ET CL 00 01 01 9. 3 00 ME Ac ON 09 -0 -2 00 00 D ti AZ 30 5- 7- 0 13 CA ve EP 83 20 20 55 RE AM 20 17 17 17 1 00 PH 0. AR 5 MA MG CY TA LL BL C ET OM 00 01 01 60 30 00 ME Ac EP 78 -0 -2 .0 00 D ti RA 12 5- 7- 00 13 CA ve ZO 79 20 20 55 RE LE 01 17 [address] AR MA 20 CY MG LL C CA PS UL E TR 00 01 01 30 30 00 ME Ac IA 78 -0 -2 .0 00 D ti MT 11 6- 7- 00 13 CA ve ER 12 20 20 55 RE EN 30 17 17 79 E- 5 79 PH HC AR TZ MA CY 37 .5 LL -2 C 5 MG TB GA 68 01 01 90 15 00 ME Ac BA 46 -0 -2 .0 00 D ti PE 20 6- 7- 00 13 CA ve NT 12 20 20 56 RE IN 60 17 17 46 5 48 PH 60 AR 0 MA MG CY TA LL BL C ET OM 65 01 01 60 30 00 ME Ac EG 16 -0 -2 .0 00 D ti A- 20 7- 7- 00 13 CA ve 3 03 20 20 56 RE ET 41 17 17 18 HY 6 64 PH L AR ES MA TE CY RS 1 LL C GM CA P BE 00 12 01 90 30 00 ME Ac NZ 60 -2 -2 .0 00 D ti TR 32 6- 0- 00 13 CA ve OP 43 20 20 44 RE IN 43 16 17 88 E 2 94 PH ME AR S MA 1 CY MG LL TA C BL ET LO 00 12 01 30 5 00 ME Ac PE 09 -2 -2 .0 00 D ti RA 30 6- 0- 00 13 CA ve NM 31 20 20 50 RE DE 10 16 17 21 2 1 20 PH AR MG MA CY CA PS LL UL C E CL 00 12 01 30 10 00 ME Ac ON 09 -2 -2 .0 00 D ti AZ 30 7- 0- 00 13 CA ve EP 83 20 20 50 RE AM 20 16 17 14 1 83 PH 0. AR 5 MA MG CY TA LL BL C ET CA 58 12 01 42 21 00 ME Ac RA 91 -2 -2 0. 00 D ti FA 40 7- 0- 00 13 CA ve TE 17 20 20 0 50 RE 1 01 16 17 71 4 86 PH GM AR /1 MA 0 CY ML LL MARCIAL C SP PH 51 12 01 12 30 00 ME Ac EN 67 -2 -2 0. 00 D ti YT 24 7- 0- 00 13 CA ve OI 11 20 20 0 51 RE N 10 16 17 45 SO 3 34 PH D AR EX MA T CY 10 0 LL MG C CA P FE 68 12 01 30 30 00 ME Ac NO 18 -3 -2 .0 00 D ti FI 00 1- 0- 00 13 CA ve BR 36 20 20 52 RE AT 20 16 17 58 E 9 87 PH 54 AR MA MG CY TA LL BL C ET LE 16 12 01 62 30 00 ME Ac VE 71 -3 -2 .0 00 D ti TI 40 1- 0- 00 13 CA ve RA 35 20 20 52 RE CE 70 16 17 58 TA 1 93 PH M AR 1, MA 00 CY 0 MG LL C TA BL ET MO 27 12 01 30 30 00 ME Ac NT 24 -3 -2 .0 00 D ti EL 10 0- 0- 00 13 CA ve [place] 01 20 20 50 RE 80 16 17 21 T 9 81 PH SO AR D MA 10 CY MG LL C TA BL ET AZ 50 12 01 6. 5 00 ME Ac IT 11 -2 -1 00 00 D ti HR 10 1- 3- 0 13 CA ve OM 78 20 20 48 RE YC 76 16 17 70 IN 6 37 PH AR 25 MA 0 CY MG LL TA C BL ET ME 65 12 01 60 30 00 ME Ac TF 86 -2 -1 .0 00 D ti OR 20 4- 3- 00 13 CA ve NM 00 20 20 49 RE N 89 16 17 37 HC 9 97 PH L AR 50 MA 0 CY MG LL TA C BL ET RO 00 12 01 47 8 00 ME Ac BA 90 -2 -1 3. 00 D ti FE 40 4- 3- 00 13 CA ve N 06 20 20 0 49 RE 10 11 16 17 98 0 6 16 PH MG AR /5 MA CY ML LL SY C RU P ME 00 12 01 60 30 00 ME Ac TO 37 -1 -0 .0 00 D ti VA 80 5- 9 00 13 CA ve OL 01 20 20 44 RE OL 80 16 17 82 1 17 PH TA AR RT MA RA CY TE LL 25 C MG TA B HY 64 12 01 [address] 98 -0 -0 .0 00 D ti OX 00 8- 9 00 13 CA ve YZ 16 20 20 42 RE IN 90 16 17 65 E 5 72 PH PA AR M MA 25 CY MG LL C CA P OL 60 12 01 30 30 00 ME Ac AN 50 -1 -0 .0 00 D ti ZA 53 3 00 13 CA ve PI 11 20 20 44 RE NE 30 16 17 88 3 93 PH 10 AR MA MG CY TA LL BL C ET 00 12 01 30 30 00 ME Ac TA 90 -1 -0 .0 00 D ti NM 45 6 13 CA ve N 98 20 20 45 RE D3 66 16 17 37 0 68 PH 5, AR 00 MA 0 CY UN IT LL C CA PS UL E OX 62 12 01 60 30 00 ME Ac CA 75 -1 -0 .0 00 D ti RB 60 13 CA ve AZ 18 20 20 45 RE EP 58 16 17 93 IN 8 32 PH E AR 60 MA 0 CY MG LL TA C BL ET CL 00 12 01 42 14 00 ME Ac ON 09 -1 -0 .0 00 D ti AZ 30 3 13 CA ve EP 83 20 20 43 RE AM 20 16 17 81 1 84 PH 0. AR 5 MA MG CY TA LL BL C ET FL 00 12 01 16 30 00 ME Ac UT 05 -1 -0 .0 00 D ti IC 43 3 13 CA ve 27 20 20 44 RE ON 09 16 17 59 E 9 69 PH VA AR OP MA CY 50 LL MC C G SP RA Y HY 00 07 07 0 30 8 ME [address] 59 -2 -2 0. D 50 NO ti OC 13 3 7- 00 CA 36 LD ve OD 20 20 20 0 RE 11 ON 20 15 15 RI -A 1 PH CH CE AR AR TA MA D NM CY W NO PH LL EN C 5- 32 5 TA 00 05 07 0 30 30 ME 11 AR Ac B- 90 -2 -2 0. D 49 NO ti A- 40 9- 5- 00 CA 84 LD ve 53 20 20 0 RE 69 TE 08 15 15 RI 0 PH CH TA AR AR BL MA D ET CY W LL C SE 59 05 07 0 60 30 ME 11 AR Ac RT 76 -2 -2 0. D 49 NO ti RA 24 9 CA 84 LD ve LI 91 20 20 0 RE 70 NE 00 15 15 RI 5 PH CH HC AR AR L MA D 10 CY W 0 MG LL C TA BL ET GE 31 05 07 0 60 30 ME 11 AR Ac MF 72 -2 -2 0. D 49 NO ti IB 20 CA 84 LD ve RO 22 20 20 0 RE 71 ZI 50 15 15 RI L 5 PH CH 60 AR AR 0 MA D MG CY W TA LL BL C ET ME 68 05 07 0 60 30 ME 11 AR Ac TF 38 -2 -2 0. D 49 NO ti OR 20 CA 84 LD ve NM 75 20 20 0 RE 72 N 80 15 15 RI HC 5 PH CH L AR AR 50 MA D 0 CY W MG LL TA C BL ET FI 00 05 07 0 60 30 ME 11 AR Ac SH 90 -2 -2 0. D 49 NO ti 44 CA 84 LD ve OI 04 20 20 0 RE 73 L 36 15 15 RI 1, 0 PH CH 00 AR AR 0 MA D MG CY W CA LL PS C UL E ME 57 05 07 0 60 30 ME 11 AR Ac TO 66 -2 -2 0. D 49 NO ti VA 40 CA 84 LD ve OL 50 20 20 0 RE 74 OL 65 15 15 RI 8 PH CH TA AR AR RT MA D RA CY W TE LL 25 C MG TA B TR 68 05 07 0 30 30 ME 11 AR Ac IA 00 -2 -2 0. D 49 NO ti MT 10 CA 84 LD ve ER 21 20 20 0 RE 75 EN 60 15 15 RI E- 0 PH CH HC AR AR TZ MA D CY W 37 .5 LL -2 C 5 MG TB AT 59 05 07 0 30 30 ME 11 AR Ac OR 76 -2 -2 0. D 49 NO ti VA 20 CA [address] 15 20 20 0 RE 67 AT 70 15 15 RI IN 2 PH CH AR AR 40 MA D CY W MG LL TA C BL ET 00 05 07 0 30 30 ME 11 AR Ac TA 90 -2 -2 0. D 49 NO ti NM 45 CA 84 LD ve N 98 20 20 0 RE 68 D3 66 15 15 RI 0 PH CH 5, AR AR 00 MA D 0 CY W UN IT LL C CA PS UL E TR 17 05 07 0 30 10 ME 11 AR Ac OK 77 -2 -2 0. D 48 NO ti EN 20 9- 4- 00 CA 99 LD ve DI 10 20 20 0 RE 39 31 15 15 RI XR 5 PH CH AR AR 10 MA D 0 CY W MG LL CA C PS UL E HY 00 07 07 0 10 3 ME [address] 59 -2 -2 0. D 49 AD ti OC 13 3- 3- 00 CA 22 E ve OD 20 20 20 0 RE 44 DM ON 20 15 15 D -A 1 PH JE CE AR WE TA MA LL NM CY NO PH LL EN C 5- 32 5 NY 68 07 07 0 15 7 ME [address] 30 -1 -2 0. D 47 NO ti AT 80 9- 0- 00 CA 78 LD ve IN 15 20 20 0 RE 89 21 15 15 RI 10 5 PH CH 0, AR AR 00 MA D 0 CY W UN IT LL /G C M PO WD HY 00 07 07 0 30 10 ME [address] 18 -0 -1 0. D 47 NO ti OX 50 6- 7- 00 CA 17 LD ve YZ 67 20 20 0 RE 58 IN 40 15 15 RI E 5 PH CH PA AR AR M MA D 25 CY W MG LL C CA P TR 17 05 07 0 30 10 ME 11 AR Ac OK 77 -2 -1 0. D 45 NO ti EN 20 9- 4- 00 CA 91 LD ve DI 10 20 20 0 RE 00 31 15 15 RI XR 5 PH CH AR AR 10 MA D 0 CY W MG LL CA C PS UL E RI 27 06 07 0 90 30 ME 11 AR Ac SP 24 -1 -1 0. D 39 NO ti ER 10 9- 0- 00 CA 24 LD ve ID 00 20 20 0 RE 06 ON 40 15 15 RI E 6 PH CH 2 AR AR MG MA D CY W TA BL LL ET C QU 16 06 07 0 15 30 ME 11 AR Ac ET 72 -1 -0 0. D 44 NO ti IA 90 1- 9- 00 CA 40 LD ve PI 14 20 20 0 RE 50 NE 91 15 15 RI 7 PH CH FU AR AR MA MA D RA CY W TE LL 30 C 0 MG TA B GA 31 07 07 0 12 30 ME 11 AR Ac BA 72 -0 -0 00 D 43 NO ti PE 20 6- 6- .0 CA 73 LD ve NT 22 20 20 00 RE 64 IN 30 15 15 RI 5 PH CH 40 AR AR 0 MA D MG CY W CA LL PS C UL E OX 51 07 07 0 60 30 ME 11 AR Ac CA 99 -0 -0 0. D 43 NO ti RB 10 6- 6- 00 CA 73 LD ve AZ 29 20 20 0 RE 68 EP 30 15 15 RI IN 1 PH CH E AR AR 30 MA D 0 CY W MG LL TA C BL ET HY 00 07 07 0 30 10 ME [address] 18 -0 -0 0. D 43 NO ti OX 50 6- 6- 00 CA 73 LD ve YZ 67 20 20 0 RE 70 IN 40 15 15 RI E 5 PH CH PA AR AR M MA D 25 CY W MG LL C CA P TR 17 05 07 0 30 10 ME 11 AR Ac OK 77 -2 -0 0. D 43 NO ti EN 20 9- 6- 00 CA 20 LD ve DI 10 20 20 0 RE 70 31 15 15 RI XR 5 PH CH AR AR 10 MA D 0 CY W MG LL CA C PS UL E OX 51 05 06 0 28 10 ME 11 AR Ac CA 99 -2 -2 0. D 40 NO ti RB 10 9- 6- 00 CA 58 LD ve AZ 29 20 20 0 RE 94 EP 20 15 15 RI IN 1 PH CH E AR AR 15 MA D 0 CY W MG LL TA C BL ET AT 59 05 06 0 30 30 ME 11 AR Ac OR 76 -2 -2 0. D 40 NO ti VA 20 9- 6- 00 CA [address] 15 20 20 0 RE 85 AT 70 15 15 RI IN 2 PH CH AR AR 40 MA D CY W MG LL TA C BL ET SE 59 05 06 0 60 30 ME 11 AR Ac RT 76 -2 -2 0. D 40 NO ti RA 24 9- 6- 00 CA 58 LD ve LI 91 20 20 0 RE 88 NE 00 15 15 RI 5 PH CH HC AR AR L MA D 10 CY W 0 MG LL C TA BL ET 00 05 06 0 30 30 ME 11 AR Ac TA 90 -2 -2 0. D 40 NO ti NM 45 9- 6- 00 CA 58 LD ve N 98 20 20 0 RE 86 D3 66 15 15 RI 0 PH CH 5, AR AR 00 MA D 0 CY W UN IT LL C CA PS UL E TR 17 05 06 0 30 10 ME 11 AR Ac OK 77 -2 -2 0. D 40 NO ti EN 20 9- 6- 00 CA 58 LD ve DI 10 20 20 0 RE 96 31 15 15 RI XR 5 PH CH AR AR 10 MA D 0 CY W MG LL CA C PS UL E GE 31 05 06 0 60 30 ME 11 AR Ac MF 72 -2 -2 0. D 40 NO ti IB 20 9- 6- 00 CA 58 LD ve RO 22 20 20 0 RE 89 ZI 50 15 15 RI L 5 PH CH 60 AR AR 0 MA D MG CY W TA LL BL C ET ME 57 05 06 0 60 30 ME 11 AR Ac TO 66 -2 -2 0. D 40 NO ti VA 40 9- 6- 00 CA 58 LD ve OL 50 20 20 0 RE 92 OL 65 15 15 RI 8 PH CH TA AR AR RT MA D RA CY W TE LL 25 C MG TA B TA 00 05 06 0 30 30 ME 11 AR Ac B- 90 -2 -2 0. D 40 NO ti A- 40 9- 6- 00 CA 58 LD ve 53 20 20 0 RE 87 TE 08 15 15 RI 0 PH CH TA AR AR BL MA D ET CY W LL C ME 68 05 06 0 60 30 ME 11 AR Ac TF 38 -2 -2 0. D 40 NO ti OR 20 9- 6- 00 CA 58 LD ve NM 02 20 20 0 RE 90 N 80 15 15 RI HC 5 PH CH L AR AR 50 MA D 0 CY W MG LL TA C BL ET FI 00 05 06 0 60 30 ME 11 AR Ac SH 90 -2 -2 0. D 40 NO ti 44 9- 6- 00 CA 58 LD ve OI 04 20 20 0 RE 91 L 36 15 15 RI 1, 0 PH CH 00 AR AR 0 MA D MG CY W CA LL PS C UL E TR 68 05 06 0 30 30 ME 11 AR Ac IA 00 -2 -2 0. D 40 NO ti MT 10 9- 6- 00 CA 58 LD ve ER 21 20 20 0 RE 95 EN 60 15 15 RI E- 0 PH CH HC AR AR TZ MA D CY W 37 .5 LL -2 C 5 MG TB TR 17 05 06 0 30 10 ME 11 AR Ac OK 77 -2 -1 0. D 37 NO ti EN 20 9- 7- 00 CA 88 LD ve DI 10 20 20 0 RE 79 31 15 15 RI XR 5 PH CH AR AR 10 MA D 0 CY W MG LL CA C PS UL E RI 27 06 06 0 60 30 ME 11 AR Ac SP 24 -1 -1 0. D 36 NO ti ER 10 1- 6- 00 CA 58 LD ve ID 00 20 20 0 RE 66 ON 40 15 15 RI E 6 PH CH 2 AR AR MG MA D CY W TA BL LL ET C QU 16 06 06 0 15 30 ME 11 AR Ac ET 72 -1 -1 0. D 36 NO ti IA 90 1- 1- 00 CA 58 LD ve PI 14 20 20 0 RE 67 NE 91 15 15 RI 7 PH CH FU AR AR MA MA D RA CY W TE LL 30 C 0 MG TA B TR 17 05 06 0 30 10 ME 11 AR Ac OK 77 -2 -0 0. D 34 NO ti EN 20 9- 8- 00 CA 58 LD ve DI 10 20 20 0 RE 46 31 15 15 RI XR 5 PH CH AR AR 10 MA D 0 CY W MG LL CA C PS UL E QU 16 05 06 0 11 11 ME 11 AR Ac ET 72 -3 -0 0. D 33 NO ti IA 90 1- 1- 00 CA 17 LD ve PI 14 20 20 0 RE 19 NE 61 15 15 RI 7 PH CH FU AR AR MA MA D RA CY W TE LL 50 C MG TA B RI 68 05 05 0 60 30 ME 11 AR Ac SP 38 -2 -2 0. D 32 NO ti ER 20 9- 9- 00 CA 92 LD ve ID 11 20 20 0 RE 66 ON 40 15 15 RI E 5 PH CH 1 AR AR MG MA D CY W TA BL LL ET C TR 17 05 05 0 30 10 ME 11 AR Ac OK 77 -2 -2 0. D 32 NO ti EN 20 9- 9- 00 CA 92 LD ve DI 10 20 20 0 RE 77 30 15 15 RI XR 1 PH CH AR AR 10 MA D 0 CY W MG LL CA C PS UL E OX 51 05 05 0 90 30 ME 11 AR Ac CA 99 -2 -2 0. D 32 NO ti RB 10 9- 9- 00 CA 92 LD ve AZ 29 20 20 0 RE 73 EP 20 15 15 RI IN 1 PH CH E AR AR 15 MA D 0 CY W MG LL TA C BL ET GA 67 03 05 3 24 30 TO 87 BR Ac BA 87 -1 -2 00 TA 64 AU ti PE 70 3- 9- .0 L 11 N ve NT 22 20 20 00 CA MA IN 30 15 15 RE RY 5 30 PH LO 0 AR U MG MA CY CA PS #5 UL E SE 59 01 05 5 60 30 TO 87 BR Ac RT 76 -2 -2 0. TA 25 AU ti RA 24 6- 9 00 L 32 N ve LI 91 20 20 0 CA MA NE 00 15 15 RE RY 5 HC PH LO L AR U 10 MA 0 CY MG #5 TA BL ET ME 68 05 05 0 60 30 ME 11 AR Ac TF 38 -2 -2 0. D 32 NO ti OR 20 CA 92 LD ve NM 02 20 20 0 RE 62 N 80 15 15 RI HC 5 PH CH L AR AR 50 MA D 0 CY W MG LL TA C BL ET FI 00 05 05 0 60 30 ME 11 AR Ac SH 90 -2 -2 0. D 32 NO ti 44 CA 92 LD ve OI 04 20 20 0 RE 64 L 36 15 15 RI 1, 0 PH CH 00 AR AR 0 MA D MG CY W CA LL PS C UL E TA 00 05 05 0 30 30 ME 11 AR Ac B- 90 -2 -2 0. D 32 NO ti A- 40 CA 92 LD ve 53 20 20 0 RE 59 TE 08 15 15 RI 0 PH CH TA AR AR BL MA D ET CY W LL C ME 57 05 05 0 60 30 ME 11 AR Ac TO 66 -2 -2 0. D 32 NO ti VA 40 CA 92 LD ve OL 50 20 20 0 RE 65 OL 65 15 15 RI 8 PH CH TA AR AR RT MA D RA CY W TE LL 25 C MG TA B LI 63 05 05 0 30 30 ME 11 AR Ac DO 48 -2 -2 0. D 32 NO ti DE 10 CA 92 LD ve RM 68 20 20 0 RE 72 70 15 15 RI 5% 6 PH CH AR AR PA MA D TC CY W H LL C AT 55 05 05 9 30 30 TO 88 LO Ac OR 11 -2 -2 0. TA 29 EB ti VA 10 00 L [address] 12 20 20 0 CA R AT 30 15 15 RE TA IN 5 MM PH Y 40 AR MA MG CY TA #5 BL ET GE 31 04 05 6 60 30 TO 87 LO Ac MF 72 -2 -2 0. TA 95 EB ti IB 20 0- 9- 00 L 50 KE ve RO 22 20 20 0 CA R ZI 50 15 15 RE TA L 5 MM 60 PH Y 0 AR MG MA CY TA BL #5 ET 00 03 05 6 30 30 TO 87 LO Ac TA 90 -2 -2 0. TA 74 EB ti NM 45 4- 9- 00 L 03 KE ve N 98 20 20 0 CA R D3 66 15 15 RE TA 0 MM 5, PH Y 00 AR 0 MA UN CY IT #5 CA PS UL E TR 00 03 05 5 30 30 TO 87 LO Ac IA 52 -2 -2 0. TA 74 EB ti MT 71 5- 9- 00 L 92 KE ve ER 63 20 20 0 CA R EN 20 15 15 RE TA E- 1 MM HC PH Y TZ AR MA 37 CY .5 -2 #5 5 MG CP ME 00 04 05 5 60 30 TO 87 LO Ac TO 37 -2 -2 0. TA 95 EB ti VA 80 0- 0- 00 L 92 KE ve OL 01 20 20 0 CA R OL 80 15 15 RE TA 5 MM TA PH Y RT AR RA MA TE CY 25 #5 MG TA B RI 68 02 05 5 60 30 TO 87 BR Ac SP 38 -1 -2 0. TA 38 AU ti ER 20 1- 0- 00 L 64 N ve ID 11 20 20 0 CA MA ON 50 15 15 RE RY E 5 2 PH LO MG AR U MA TA CY BL ET #5 TR 17 05 05 3 90 30 TO 88 BR Ac OK 77 -1 -1 0. TA 21 AU ti EN 20 8- 8- 00 L 04 N ve DI 10 20 20 0 CA MA 31 15 15 RE RY XR 5 PH LO 10 AR U 0 MA MG CY CA #5 PS UL E OX 17 03 05 3 20 10 TO 87 BR Ac TE 77 -2 -1 0. TA 73 AU ti LL 20 3- 3- 00 L 23 N ve AR 12 20 20 0 CA MA 30 15 15 RE RY XR 1 PH LO 60 AR U 0 MA MG CY TA #5 BL ET VA 00 10 05 3 67 32 TO 86 LO Ac OV 08 -2 -1 .0 TA 43 EB ti EN 51 7- 3- 00 L 21 KE ve TI 13 20 20 CA R L 20 14 15 RE TA HF 1 MM A PH Y 90 AR MA MC CY G IN #5 [place] LE R LI 68 04 05 6 30 30 TO 87 LO Ac SI 00 -1 -1 0. TA 93 EB ti NO 10 6- 2- 00 L 71 KE ve VA 21 20 20 0 CA R IL 00 15 15 RE TA 8 MM 10 PH Y AR MG MA CY TA BL #5 ET ON 53 11 05 4 50 50 TO 86 BE Ac ET 88 -0 -0 0. TA 51 NF ti OU 50 5- 8- 00 L 35 IE ve CH 24 20 20 0 CA LD 45 14 15 RE UL 0 JR TR PH A AR JE TE MA RR ST CY Y ST #5 RI PS QU 67 04 04 3 45 30 TO 87 BR Ac ET 87 -2 -2 0. TA 96 AU ti IA 70 0- 0- 00 L 61 N ve PI 25 20 20 0 CA MA NE 00 15 15 RE RY 1 FU PH LO MA AR U RA MA TE CY 10 #5 0 MG TA B TR 17 04 04 3 30 30 TO 87 BR Ac OK 77 -2 -2 0. TA 96 AU ti EN 20 0- 0- 00 L 59 N ve DI 10 20 20 0 CA MA 41 15 15 RE RY XR 5 PH LO 20 AR U 0 MA MG CY CA #5 PS UL E ME 00 04 04 5 60 30 TO 87 LO Ac TO 37 -2 -2 0. TA 95 EB ti VA 80 0- 0- 00 L 92 KE ve OL 01 20 20 0 CA R OL 80 15 15 RE TA 5 MM TA PH Y RT AR RA MA TE CY 25 #5 MG TA B AT 55 04 04 0 30 30 TO 87 LO Ac OR 11 -2 -2 0. TA 96 EB ti VA 10 0- 0- 00 L [address] 12 20 20 0 CA R AT 30 15 15 RE TA IN 5 MM PH Y 40 AR MA MG CY TA #5 BL ET GE 31 04 04 6 60 30 TO 87 LO Ac MF 72 -2 -2 0. TA 95 EB ti IB 20 0- 0- 00 L 50 KE ve RO 22 20 20 0 CA R ZI 50 15 15 RE TA L 5 MM 60 PH Y 0 AR MG MA CY TA BL #5 ET TR 00 03 04 5 30 30 TO 87 LO Ac IA 52 -2 -1 0. TA 74 EB ti MT 71 5- 8- 00 L 92 KE ve ER 63 20 20 0 CA R EN 20 15 15 RE TA E- 1 MM HC PH Y TZ AR MA 37 CY .5 -2 #5 5 MG CP 00 03 04 6 30 30 TO 87 LO Ac TA 90 -2 -1 0. TA 74 EB ti NM 45 4- 7- 00 L 03 KE ve N 98 20 20 0 CA R D3 66 15 15 RE TA 0 MM 5, PH Y 00 AR 0 MA UN CY IT #5 CA PS UL E FI 00 12 04 5 60 30 TO 86 LO Ac SH 90 -1 -1 0. TA 89 EB ti 44 7- 7- 00 L 71 KE ve OI 04 20 20 0 CA R L 36 14 15 RE TA 1, 0 MM 00 PH Y 0 AR MG MA CY CA PS #5 UL E ME 68 03 04 6 60 30 TO 87 LO Ac TF 38 -2 -1 0. TA 74 EB ti OR 20 4- 7- 00 L 02 KE ve NM 02 20 20 0 CA R N 81 15 15 RE TA HC 0 MM L PH Y 50 AR 0 MA MG CY TA #5 BL ET QU 67 01 04 3 30 30 TO 87 BR Ac ET 87 -2 -1 0. TA 25 AU ti IA 70 6- 7- 00 L 31 N ve PI 25 20 20 0 CA MA NE 00 15 15 RE RY 1 FU PH LO MA AR U RA MA TE CY 10 #5 0 MG TA B SE 59 01 04 5 60 30 TO 87 BR Ac RT 76 -2 -1 0. TA 25 AU ti RA 24 6- 7- 00 L 32 N ve LI 91 20 20 0 CA MA NE 00 15 15 RE RY 5 HC PH LO L AR U 10 MA 0 CY MG #5 TA BL ET OX 17 03 04 3 60 30 TO 87 BR Ac TE 77 -2 -1 0. TA 73 AU ti LL 20 3- 6- 00 L 23 N ve AR 12 20 20 0 CA MA 30 15 15 RE RY XR 1 PH LO 60 AR U 0 MA MG CY TA #5 BL ET RI 68 02 04 5 60 30 TO 87 BR Ac SP 38 -1 -1 0. TA 38 AU ti ER 20 1- 6- 00 L 64 N ve ID 11 20 20 0 CA MA ON 50 15 15 RE RY E 5 2 PH LO MG AR U MA TA CY BL ET #5 LI 31 04 04 6 30 30 TO 87 LO Ac SI 72 -1 -1 0. TA 93 EB ti NO 20 6- 6- 00 L 71 KE ve VA 41 20 20 0 CA R IL 90 15 15 RE TA 1 MM 10 PH Y AR MG MA CY TA BL #5 ET GA 45 03 04 3 24 30 TO 87 BR Ac BA 96 -1 -0 00 TA 64 AU ti PE 30 3- 6- .0 L 11 N ve NT 55 20 20 00 CA MA IN 65 15 15 RE RY 0 30 PH LO 0 AR U MG MA CY CA PS #5 UL E TR 17 01 04 3 60 30 TO 87 BR Ac OK 77 -1 -0 0. TA 13 AU ti EN 20 2- 4- 00 L 57 N ve DI 10 20 20 0 CA MA 31 15 15 RE RY XR 5 PH LO 10 AR U 0 MA MG CY CA #5 PS UL E TR 00 03 03 5 30 30 TO 87 LO Ac IA 52 -2 -2 0. TA 74 EB ti MT 71 5- 5- 00 L 92 KE ve ER 63 20 20 0 CA R EN 20 15 15 RE TA E- 1 MM HC PH Y TZ AR MA 37 CY .5 -2 #5 5 MG CP GE 31 10 03 6 60 30 TO 86 LO Ac MF 72 -0 -2 0. TA 22 EB ti IB 20 2- 4- 00 L 32 KE ve RO 22 20 20 0 CA R ZI 50 14 15 RE TA L 5 MM 60 PH Y 0 AR MG MA CY TA BL #5 ET FI 00 12 03 5 60 30 TO 86 LO Ac SH 90 -1 -2 0. TA 89 EB ti 44 7- 4- 00 L 71 KE ve OI 04 20 20 0 CA R L 36 14 15 RE TA 1, 0 MM 00 PH Y 0 AR MG MA CY CA PS #5 UL E ME 68 03 03 6 60 30 TO 87 LO Ac TF 38 -2 -2 0. TA 74 EB ti OR 20 4- 4- 00 L 02 KE ve NM 02 20 20 0 CA R N 81 15 15 RE TA HC 0 MM L PH Y 50 AR 0 MA MG CY TA #5 BL ET 00 03 03 6 30 30 TO 87 LO Ac TA 90 -2 -2 0. TA 74 EB ti NM 45 4- 4- 00 L 03 KE ve N 98 20 20 0 CA R D3 66 15 15 RE TA 0 MM 5, PH Y 00 AR 0 MA UN CY IT #5 CA PS UL E SE 59 01 03 5 60 30 TO 87 BR Ac RT 76 -2 -2 0. TA 25 AU ti RA 24 6- 4- 00 L 32 N ve LI 91 20 20 0 CA MA NE 00 15 15 RE RY 5 HC PH LO L AR U 10 MA 0 CY MG #5 TA BL ET OX 17 03 03 3 60 30 TO 87 BR Ac TE 77 -2 -2 0. TA 73 AU ti LL 20 3- 3- 00 L 23 N ve AR 12 20 20 0 CA MA 30 15 15 RE RY XR 1 PH LO 60 AR U 0 MA MG CY TA #5 BL ET ON 53 11 03 4 50 50 TO 86 BE Ac ET 88 -0 -1 0. TA 51 NF ti OU 50 5- 8- 00 L 35 IE ve CH 24 20 20 0 CA LD 45 14 15 RE UL 0 JR TR PH A AR JE TE MA RR ST CY Y ST #5 RI PS QU 16 01 03 3 30 30 TO 87 BR Ac ET 72 -2 -1 0. TA 25 AU ti IA 90 6- 7- 00 L 31 N ve PI 14 20 20 0 CA MA NE 70 15 15 RE RY 1 FU PH LO MA AR U RA MA TE CY 10 #5 0 MG TA B GA 53 03 03 3 24 30 TO 87 BR Ac BA 74 -1 -1 00 TA 64 AU ti PE 60 3- 3- .0 L 11 N ve NT 10 20 20 00 CA MA IN 20 15 15 RE RY 5 30 PH LO 0 AR U MG MA CY CA PS #5 UL E TR 17 01 03 3 60 30 TO 87 BR Ac OK 77 -1 -1 0. TA 13 AU ti EN 20 2- 1- 00 L 57 N ve DI 10 20 20 0 CA MA 31 15 15 RE RY XR 5 PH LO 10 AR U 0 MA MG CY CA #5 PS UL E AT 55 03 03 0 30 30 TO 87 OS Ac OR 11 -0 -0 0. TA 58 AILYN ti VA 10 9- 9- 00 L [address] 12 20 20 0 CA E AT 30 15 15 RE LE IN 5 WI PH S 40 AR RE MA BE MG CY CC A TA #5 L BL ET ME 00 03 03 0 60 30 TO 87 OS Ac TO 37 -0 -0 0. TA 58 AILYN ti VA 80 9- 9- 00 L 57 RN ve OL 01 20 20 0 CA E OL 80 15 15 RE LE 5 WI TA PH S RT AR RE RA MA BE TE CY CC A 25 #5 L MG TA B RI 68 02 03 5 60 30 TO 87 BR Ac SP 38 -1 -0 0. TA 38 AU ti ER 20 1- 7- 00 L 64 N ve ID 11 20 20 0 CA MA ON 50 15 15 RE RY E 5 2 PH LO MG AR U MA TA CY BL ET #5 OX 68 02 03 5 90 30 TO 87 BR Ac CA 46 -0 -0 0. TA 38 AU ti RB 20 9- 7- 00 L 63 N ve AZ 13 20 20 0 CA MA EP 80 15 15 RE RY IN 1 E PH LO 30 AR U 0 MA MG CY TA #5 BL ET QU 16 01 02 3 30 30 TO 87 BR Ac ET 72 -2 -2 0. TA 25 AU ti IA 90 6- 1- 00 L 31 N ve PI 14 20 20 0 CA MA NE 70 15 15 RE RY 1 FU PH LO MA AR U RA MA TE CY 10 #5 0 MG TA B 00 02 02 0 30 30 TO 87 LO Ac TA 90 -1 -1 0. TA 40 EB ti NM 45 9- 9- 00 L 75 KE ve N 98 20 20 0 CA R D3 66 15 15 RE TA 0 MM 5, PH Y 00 AR 0 MA UN CY IT #5 CA PS UL E ME 68 02 02 0 60 30 TO 87 LO Ac TF 38 -1 -1 0. TA 44 EB ti OR 20 7- 7- 00 L 39 KE ve NM 02 20 20 0 CA R N 81 15 15 RE TA HC 0 MM L PH Y 50 AR 0 MA MG CY TA #5 BL ET SE 59 01 02 5 60 30 TO 87 BR Ac RT 76 -2 -1 0. TA 25 AU ti RA 24 6- 7- 00 L 32 N ve LI 91 20 20 0 CA MA NE 00 15 15 RE RY 5 HC PH LO L AR U 10 MA 0 CY MG #5 TA BL ET GA 65 11 02 3 24 30 TO 86 BR Ac BA 16 -1 -1 00 TA 57 AU ti PE 20 9- 7- .0 L 44 N ve NT 10 20 20 00 CA MA IN 21 14 15 RE RY 1 30 PH LO 0 AR U MG MA CY CA PS #5 UL E TR 17 01 02 3 60 30 TO 87 BR Ac OK 77 -1 -1 0. TA 13 AU ti EN 20 2- 5- 00 L 57 N ve DI 10 20 20 0 CA MA 31 15 15 RE RY XR 5 PH LO 10 AR U 0 MA MG CY CA #5 PS UL E RI 68 02 02 5 60 30 TO 87 BR Ac SP 38 -1 -1 0. TA 38 AU ti ER 20 1- 1- 00 L 64 N ve ID 11 20 20 0 CA MA ON 50 15 15 RE RY E 5 2 PH LO MG AR U MA TA CY BL ET #5 TR 00 12 02 2 30 30 TO 86 OS Ac IA 52 -1 -1 0. TA 89 AILYN ti MT 71 7- 1- 00 L 19 RN ve ER 63 20 20 0 CA E EN 20 14 15 RE LE E- 1 WI HC PH S TZ AR RE MA BE 37 CY CC .5 A -2 #5 L 5 MG CP AT 55 12 02 2 30 30 TO 86 OS Ac OR 11 -1 -1 0. TA 89 AILYN ti VA 10 7- 1- 00 L [address] 12 20 20 0 CA E AT 30 14 15 RE LE IN 5 WI PH S 40 AR RE MA BE MG CY CC A TA #5 L BL ET ME 00 02 02 0 60 30 TO 87 OS Ac TO 37 -1 -1 0. TA 40 AILYN ti VA 80 1- 1- 00 L 67 RN ve OL 01 20 20 0 CA E OL 80 15 15 RE LE 5 WI TA PH S RT AR RE RA MA BE TE CY CC A 25 #5 L MG TA B FI 00 12 02 5 60 30 TO 86 LO Ac SH 90 -1 -1 0. TA 89 EB ti 44 7- 1- 00 L 71 KE ve OI 04 20 20 0 CA R L 36 14 15 RE TA 1, 0 MM 00 PH Y 0 AR MG MA CY CA PS #5 UL E GE 31 10 02 6 60 30 TO 86 LO Ac MF 72 -0 -1 0. TA 22 EB ti IB 20 2- 1- 00 L 32 KE ve RO 22 20 20 0 CA R ZI 50 14 15 RE TA L 5 MM 60 PH Y 0 AR MG MA CY TA BL #5 ET OX 68 02 02 5 90 30 TO 87 BR Ac CA 46 -0 -0 0. TA 38 AU ti RB 20 9- 9- 00 L 63 N ve AZ 13 20 20 0 CA MA EP 80 15 15 RE RY IN 1 E PH LO 30 AR U 0 MA MG CY TA #5 BL ET OX 68 01 02 3 30 10 TO 87 BR Ac CA 46 -1 -0 0. TA 14 AU ti RB 20 3- 6- 00 L 63 N ve AZ 13 20 20 0 CA MA EP 70 15 15 RE RY IN 1 E PH LO 15 AR U 0 MA MG CY TA #5 BL ET ON 53 11 01 4 50 50 TO 86 BE Ac ET 88 -0 -2 0. TA 51 NF ti OU 50 5- 8- 00 L 35 IE ve CH 24 20 20 0 CA LD 45 14 15 RE UL 0 JR TR PH A AR JE TE MA RR ST CY Y ST #5 RI PS RI 68 01 01 3 60 30 TO 87 BR Ac SP 38 -2 -2 0. TA 25 AU ti ER 20 6- 7- 00 L 13 N ve ID 11 20 20 0 CA MA ON 40 15 15 RE RY E 5 1 PH LO MG AR U MA TA CY BL ET #5 TR 17 01 01 3 46 23 TO 87 BR Ac OK 77 -1 -2 0. TA 13 AU ti EN 20 2- 7- 00 L 57 N ve DI 10 20 20 0 CA MA 31 15 15 RE RY XR 5 PH LO 10 AR U 0 MA MG CY CA #5 PS UL E QU 16 01 01 3 30 30 TO 87 BR Ac ET 72 -2 -2 0. TA 25 AU ti IA 90 6- 6- 00 L 31 N ve PI 14 20 20 0 CA MA NE 70 15 15 RE RY 1 FU PH LO MA AR U RA MA TE CY 10 #5 0 MG TA B 00 01 01 0 30 30 TO 87 LO Ac TA 90 -2 -2 0. TA 24 EB ti NM 45 6- 6- 00 L 21 KE ve N 98 20 20 0 CA R D3 66 15 15 RE TA 0 MM 5, PH Y 00 AR 0 MA UN CY IT #5 CA PS UL E ME 68 12 01 2 60 30 TO 86 OS Ac TF 38 -1 -2 0. TA 89 AILYN ti OR 20 7- 3- 00 L 17 RN ve NM 02 20 20 0 CA E N 81 14 15 RE LE HC 0 WI L PH S 50 AR RE 0 MA BE MG CY CC A TA #5 L BL ET SE 59 08 01 5 60 30 TO 85 BR Ac RT 76 -2 -2 0. TA 91 AU ti RA 24 5- 3- 00 L 13 N ve LI 91 20 20 0 CA MA NE 00 14 15 RE RY 5 HC PH LO L AR U 10 MA 0 CY MG #5 TA BL ET OX 68 01 01 3 90 30 TO 87 BR Ac CA 46 -1 -1 0. TA 14 AU ti RB 20 3- 3- 00 L 63 N ve AZ 13 20 20 0 CA MA EP 70 15 15 RE RY IN 1 E PH LO 15 AR U 0 MA MG CY TA #5 BL ET TR 17 01 01 3 14 14 TO 87 BR Ac OK 77 -1 -1 0. TA 13 AU ti EN 20 2- 2- 00 L 57 N ve DI 10 20 20 0 CA MA 31 15 15 RE RY XR 5 PH LO 10 AR U 0 MA MG CY CA #5 PS UL E RI 68 01 01 3 60 30 TO 87 BR Ac SP 38 -1 -1 0. TA 13 AU ti ER 20 2- 2- 00 L 46 N ve ID 11 20 20 0 CA MA ON 50 15 15 RE RY E 5 2 PH LO MG AR U MA TA CY BL ET #5 TO 13 11 01 5 90 30 TO 86 BR Ac PI 66 -2 -1 0. TA 64 AU ti RA 80 0- 0- 00 L 67 N ve MA 03 20 20 0 CA MA TE 10 14 15 RE RY 5 25 PH LO AR U MG MA CY TA BL #5 ET GA 53 11 01 3 24 30 TO 86 BR Ac BA 74 -1 -1 00 TA 57 AU ti PE 60 9- 0- .0 L 44 N ve NT 10 20 20 00 CA MA IN 20 14 15 RE RY 5 30 PH LO 0 AR U MG MA CY CA PS #5 UL E QU 60 08 01 5 30 30 TO 85 BR Ac ET 50 -2 -1 0. TA 91 AU ti IA 53 5- 0- 00 L 12 N ve PI 13 20 20 0 CA MA NE 20 14 15 RE RY 1 FU PH LO MA AR U RA MA TE CY 50 #5 MG TA B ME 00 01 01 0 60 30 TO 87 OS Ac TO 37 -1 -1 0. TA 04 AILYN ti VA 80 0- 0- 00 L 26 RN ve OL 01 20 20 0 CA E OL 80 15 15 RE LE 5 WI TA PH S RT AR RE RA MA BE TE CY CC A 25 #5 L MG TA B AT 60 12 01 2 30 30 TO 86 OS Ac OR 50 -1 -1 0. TA 89 AILYN ti VA 52 7- 0- 00 L [address] 58 20 20 0 CA E AT 00 14 15 RE LE IN 8 WI PH S 40 AR RE MA BE MG CY CC A TA #5 L BL ET TR 00 12 01 2 30 30 TO 86 OS Ac IA 52 -1 -1 0. TA 89 AILYN ti MT 71 7- 0- 00 L 19 RN ve ER 63 20 20 0 CA E EN 20 14 15 RE LE E- 1 WI HC PH S TZ AR RE MA BE 37 CY CC .5 A -2 #5 L 5 MG CP GE 31 10 01 6 60 30 TO 86 LO Ac MF 72 -0 -1 0. TA 22 EB ti IB 20 2- 0- 00 L 32 KE ve RO 22 20 20 0 CA R ZI 50 14 15 RE TA L 5 MM 60 PH Y 0 AR MG MA CY TA BL #5 ET FI 00 12 01 5 60 30 TO 86 LO Ac SH 90 -1 -1 0. TA 89 EB ti 44 7- 0- 00 L 71 KE ve OI 04 20 20 0 CA R L 36 14 15 RE TA 1, 0 MM 00 PH Y 0 AR MG MA CY CA PS #5 UL E ME 60 12 12 2 60 30 TO 86 OS Ac TF 50 -1 -2 0. TA 89 AILYN ti OR 50 7- 7- 00 L 17 RN ve NM 19 20 20 0 CA E N 00 14 14 RE LE HC 1 WI L PH S 50 AR RE 0 MA BE MG CY CC A TA #5 L BL ET SE 59 08 12 5 60 30 TO 85 BR Ac RT 76 -2 -2 0. TA 91 AU ti RA 24 5- 7- 00 L 13 N ve LI 91 20 20 0 CA MA NE 00 14 14 RE RY 5 HC PH LO L AR U 10 MA 0 CY MG #5 TA BL ET GA 53 11 12 3 24 30 TO 86 BR Ac BA 74 -1 -1 00 TA 57 AU ti PE 60 9- 7- .0 L 44 N ve NT 10 20 20 00 CA MA IN 20 14 14 RE RY 5 30 PH LO 0 AR U MG MA CY CA PS #5 UL E QU 60 08 12 5 30 30 TO 85 BR Ac ET 50 -2 -1 0. TA 91 AU ti IA 53 5- 7- 00 L 12 N ve PI 13 20 20 0 CA MA NE 20 14 14 RE RY 1 FU PH LO MA AR U RA MA TE CY 50 #5 MG TA B RI 68 08 12 5 60 30 TO 85 BR Ac SP 38 -2 -1 0. TA 91 AU ti ER 20 5- 7- 00 L 11 N ve ID 11 20 20 0 CA MA ON 60 14 14 RE RY E 5 3 PH LO MG AR U MA TA CY BL ET #5 TO 13 11 12 5 90 30 TO 86 BR Ac PI 66 -2 -1 0. TA 64 AU ti RA 80 0- 7- 00 L 67 N ve MA 03 20 20 0 CA MA TE 10 14 14 RE RY 5 25 PH LO AR U MG MA CY TA BL #5 ET ME 50 12 12 0 60 30 TO 86 OS Ac TO 74 -1 -1 0. TA 89 AILYN ti VA 20 7- 7- 00 L 16 RN ve OL 10 20 20 0 CA E OL 70 14 14 RE LE 5 WI TA PH S RT AR RE RA MA BE TE CY CC A 25 #5 L MG TA B TR 00 12 12 2 30 30 TO 86 OS Ac IA 52 -1 -1 0. TA 89 AILYN ti MT 71 7- 7- 00 L 19 RN ve ER 63 20 20 0 CA E EN 20 14 14 RE LE E- 1 WI HC PH S TZ AR RE MA BE 37 CY CC .5 A -2 #5 L 5 MG CP AT 60 12 12 2 30 30 TO 86 OS Ac OR 50 -1 -1 0. TA 89 [facility] ti [place] 52 7- 7- 00 L [address] 58 20 20 0 CA E AT 00 14 14 RE LE IN 8 WI PH S 40 AR RE MA BE MG CY CC A TA #5 L BL ET 00 10 12 2 30 30 TO 86 OS Ac TA 90 -2 -1 0. TA 36 AILYN ti NM 45 0- 7- 00 L 25 RN ve N 98 20 20 0 CA E D3 66 14 14 RE LE 0 WI 5, PH S 00 AR RE 0 MA BE UN CY CC IT A #5 L CA PS UL E FI 00 12 12 5 60 30 TO 86 LO Ac SH 90 -1 -1 0. TA 89 EB ti 44 7- 7- 00 L 71 KE ve OI 04 20 20 0 CA R L 36 14 14 RE TA 1, 0 MM 00 PH Y 0 AR MG MA CY CA PS #5 UL E GE 31 10 12 6 60 30 TO 86 LO Ac MF 72 -0 -1 0. TA 22 EB ti IB 20 2- 7- 00 L 32 KE ve RO 22 20 20 0 CA R ZI 50 14 14 RE TA L 5 MM 60 PH Y 0 AR MG MA CY TA BL #5 ET ON 53 11 12 4 50 50 TO 86 BE Ac ET 88 -0 -1 0. TA 51 NF ti OU 50 5- 5- 00 L 35 IE ve CH 24 20 20 0 CA LD 45 14 14 RE UL 0 JR TR PH A AR JE TE MA RR ST CY Y ST #5 RI PS VA 00 12 12 0 50 5 TO 86 LO Ac ED 14 -1 -1 .0 TA 83 EB ti NI 39 1- 1- 00 L 69 KE ve SO 73 20 20 CA R NE 80 14 14 RE TA 1 MM 20 PH Y AR MG MA CY TA BL #5 ET FI 00 12 12 0 30 30 TO 86 LO Ac SH 90 -0 -0 0. TA 75 EB ti 44 3- 3- 00 L 70 KE ve OI 04 20 20 0 CA R L 36 14 14 RE TA 1, 0 MM 00 PH Y 0 AR MG MA CY CA PS #5 UL E ME 61 09 12 2 60 30 TO 86 OS Ac TF 44 -3 -0 0. TA 20 AILYN ti OR 20 0- 3- 00 L 36 RN ve NM 36 20 20 0 CA E N 11 14 14 RE LE HC 0 WI L PH S 50 AR RE 0 MA BE MG CY CC A TA #5 L BL ET SE 59 08 12 5 60 30 TO 85 BR Ac RT 76 -2 -0 0. TA 91 AU ti RA 24 5- 3- 00 L 13 N ve LI 91 20 20 0 CA MA NE 00 14 14 RE RY 5 HC PH LO L AR U 10 MA 0 CY MG #5 TA BL ET GE 31 10 11 6 60 30 TO 86 LO Ac MF 72 -0 -2 0. TA 22 EB ti IB 20 2- 2- 00 L 32 KE ve RO 22 20 20 0 CA R ZI 50 14 14 RE TA L 5 MM 60 PH Y 0 AR MG MA CY TA BL #5 ET LI 63 10 11 6 30 30 TO 86 LO Ac DO 48 -0 -2 0. TA 26 EB ti DE 10 7- 0- 00 L 03 KE ve RM 68 20 20 0 CA R 70 14 14 RE TA 5% 6 MM PH Y PA AR TC MA H CY #5 TO 13 11 11 5 90 30 TO 86 BR Ac PI 66 -2 -2 0. TA 64 AU ti RA 80 0- 0- 00 L 67 N ve MA 03 20 20 0 CA MA TE 10 14 14 RE RY 5 25 PH LO AR U MG MA CY TA BL #5 ET RI 68 08 11 5 60 30 TO 85 BR Ac SP 38 -2 -1 0. TA 91 AU ti ER 20 5- 9- 00 L 11 N ve ID 11 20 20 0 CA MA ON 60 14 14 RE RY E 5 3 PH LO MG AR U MA TA CY BL ET #5 GA 53 11 11 3 24 30 TO 86 BR Ac BA 74 -1 -1 00 TA 57 AU ti PE 60 1- 9- .0 L 44 N ve NT 10 20 20 00 CA MA IN 20 14 14 RE RY 5 30 PH LO 0 AR U MG MA CY CA PS #5 UL E QU 60 08 11 5 30 30 TO 85 BR Ac ET 50 -2 -1 0. TA 91 AU ti IA 53 5- 9- 00 L 12 N ve PI 13 20 20 0 CA MA NE 20 14 14 RE RY 1 FU PH LO MA AR U RA MA TE CY 50 #5 MG TA B 00 10 11 2 30 30 TO 86 OS Ac TA 90 -2 -1 0. TA 36 AILYN ti NM 45 0- 9- 00 L 25 RN ve N 98 20 20 0 CA E D3 66 14 14 RE LE 0 WI 5, PH S 00 AR RE 0 MA BE UN CY CC IT A #5 L CA PS UL E TR 00 10 11 2 30 30 TO 86 OS Ac IA 52 -2 -1 0. TA 36 AILYN ti MT 71 2- 9- 00 L 24 RN ve ER 63 20 20 0 CA E EN 20 14 14 RE LE E- 1 WI HC PH S TZ AR RE MA BE 37 CY CC .5 A -2 #5 L 5 MG CP AT 60 09 11 2 30 30 TO 86 OS Ac OR 50 -2 -1 0. TA 14 A[facility] ti [place] 52 3- 9- 00 L [address] 58 20 20 0 CA E AT 00 14 14 RE LE IN 8 WI PH S 40 AR RE MA BE MG CY CC A TA #5 L BL ET ME 50 11 11 0 60 30 TO 86 OS Ac TO 74 -0 -1 0. TA 51 AILYN ti VA 20 5- 9- 00 L 99 RN ve OL 10 20 20 0 CA E OL 70 14 14 RE LE 5 WI TA PH S RT AR RE RA MA BE TE CY CC A 25 #5 L MG TA B GA 53 11 11 0 42 7 TO 86 BR Ac BA 74 -1 -1 0. TA 57 AU ti PE 60 1- 1- 00 L 43 N ve NT 10 20 20 0 CA MA IN 20 14 14 RE RY 5 30 PH LO 0 AR U MG MA CY CA PS #5 UL E FI 00 11 11 0 60 30 TO 86 OS Ac SH 90 -0 -0 0. TA 52 AILYN ti 44 5- 5- 00 L 00 RN ve OI 04 20 20 0 CA E L 36 14 14 RE LE 1, 0 WI 00 PH S 0 AR RE MG MA BE CY CC CA A PS #5 L UL E ON 53 11 11 4 50 50 TO 86 BE Ac ET 88 -0 -0 0. TA 51 NF ti OU 50 5- 5- 00 L 35 IE ve CH 24 20 20 0 CA LD 45 14 14 RE UL 0 JR TR PH A AR JE TE MA RR ST CY Y ST #5 RI PS ME 67 09 10 2 60 30 TO 86 OS Ac TF 87 -3 -2 0. TA 20 AILYN ti OR 70 0- 9- 00 L 36 RN ve NM 21 20 20 0 CA E N 70 14 14 RE LE HC 5 WI L PH S 50 AR RE 0 MA BE MG CY CC A TA #5 L BL ET SE 59 08 10 5 60 30 TO 85 BR Ac RT 76 -2 -2 0. TA 91 AU ti RA 24 5- 9- 00 L 13 N ve LI 91 20 20 0 CA MA NE 00 14 14 RE RY 5 HC PH LO L AR U 10 MA 0 CY MG #5 TA BL ET GE 31 10 10 6 60 30 TO 86 LO Ac MF 72 -0 -2 0. TA 22 EB ti IB 20 2- 9- 00 L 32 KE ve RO 22 20 20 0 CA R ZI 50 14 14 RE TA L 5 MM 60 PH Y 0 AR MG MA CY TA BL #5 ET VA 00 10 10 3 67 32 TO 86 LO Ac OV 08 -2 -2 .0 TA 43 EB ti EN 51 8- 8- 00 L 21 KE ve TI 13 20 20 CA R L 20 14 14 RE TA HF 1 MM A PH Y 90 AR MA MC CY G IN #5 [place] LE R TR 57 10 10 0 10 2 TO 86 DA Ac AM 66 -2 -2 0. TA 43 VR ti AD 40 8- 8- 00 L 80 EN ve OL 37 20 20 0 CA 71 14 14 RE ER HC 8 IN L PH 50 AR MA MG CY TA #5 BL ET TR 00 10 10 2 30 30 TO 86 OS Ac IA 52 -2 -2 0. TA 36 AILYN ti MT 71 2- 3- 00 L 24 RN ve ER 63 20 20 0 CA E EN 20 14 14 RE LE E- 1 WI HC PH S TZ AR RE MA BE 37 CY CC .5 A -2 #5 L 5 MG CP AT 55 09 10 2 30 30 TO 86 OS Ac OR 11 -2 -2 0. TA 14 AILYN ti VA 10 3- 0- 00 L [address] 12 20 20 0 CA E AT 30 14 14 RE LE IN 5 WI PH S 40 AR RE MA BE MG CY CC A TA #5 L BL ET 00 10 10 2 30 30 TO 86 OS Ac TA 90 -2 -2 0. TA 36 AILYN ti NM 45 0- 0- 00 L 25 RN ve N 98 20 20 0 CA E D3 66 14 14 RE LE 0 WI 5, PH S 00 AR RE 0 MA BE UN CY CC IT A #5 L CA PS UL E ME 00 08 10 2 60 30 TO 85 OS Ac TO 37 -1 -2 0. TA 82 AILYN ti VA 80 2- 0- 00 L 25 RN ve OL 01 20 20 0 CA E OL 80 14 14 RE LE 5 WI TA PH S RT AR RE RA MA BE TE CY CC A 25 #5 L MG TA B RI 68 08 10 5 60 30 TO 85 BR Ac SP 38 -2 -2 0. TA 91 AU ti ER 20 5- 0- 00 L 11 N ve ID 11 20 20 0 CA MA ON 60 14 14 RE RY E 5 3 PH LO MG AR U MA TA CY BL ET #5 QU 68 08 10 5 30 30 TO 85 BR Ac ET 00 -2 -2 0. TA 91 AU ti IA 10 5- 0- 00 L 12 N ve PI 18 20 20 0 CA MA NE 00 14 14 RE RY 0 FU PH LO MA AR U RA MA TE CY 50 #5 MG TA B TO 13 05 10 5 90 30 TO 84 BR Ac PI 66 -0 -2 0. TA 95 AU ti RA 80 6- 0- 00 L 21 N ve MA 03 20 20 0 CA MA TE 10 14 14 RE RY 5 25 PH LO AR U MG MA CY TA BL #5 ET GA 53 08 10 5 18 30 TO 85 BR Ac BA 74 -2 -1 00 TA 91 AU ti PE 60 5- 4- .0 L 10 N ve NT 10 20 20 00 CA MA IN 20 14 14 RE RY 5 30 PH LO 0 AR U MG MA CY CA PS #5 UL E ON 53 09 10 6 50 30 TO 86 LO Ac ET 88 -0 -0 0. TA 00 EB ti OU 50 5- 9- 00 L 47 KE ve CH 24 20 20 0 CA R 45 14 14 RE TA UL 0 MM TR PH Y A AR TE MA ST CY ST #5 RI PS LI 63 10 10 6 30 30 TO 86 LO Ac DO 48 -0 -0 0. TA 26 EB ti DE 10 7- 7- 00 L 03 KE ve RM 68 20 20 0 CA R 70 14 14 RE TA 5% 6 MM PH Y PA AR TC MA H CY #5 FI 00 10 10 0 60 30 TO 86 OS Ac SH 90 -0 -0 0. TA 26 AILYN ti 44 7- 7- 00 L 16 RN ve OI 04 20 20 0 CA E L 36 14 14 RE LE 1, 0 WI 00 PH S 0 AR RE MG MA BE CY CC CA A PS #5 L UL E GE 31 10 10 6 60 30 TO 86 LO Ac MF 72 -0 -0 0. TA 22 EB ti IB 20 2- 2- 00 L 32 KE ve RO 22 20 20 0 CA R ZI 50 14 14 RE TA L 5 MM 60 PH Y 0 AR MG MA CY TA BL #5 ET ME 68 09 09 2 60 30 TO 86 OS Ac TF 38 -3 -3 0. TA 20 AILYN ti OR 20 0- 0- 00 L 36 RN ve NM 02 20 20 0 CA E N 81 14 14 RE LE HC 0 WI L PH S 50 AR RE 0 MA BE MG CY CC A TA #5 L BL ET SE 59 08 09 5 60 30 TO 85 BR Ac RT 76 -2 -3 0. TA 91 AU ti RA 24 5- 0- 00 L 13 N ve LI 91 20 20 0 CA MA NE 00 14 14 RE RY 5 HC PH LO L AR U 10 MA 0 CY MG #5 TA BL ET TR 00 07 09 2 30 30 TO 85 OS Ac IA 52 -2 -2 0. TA 71 AILYN ti MT 71 9- 9- 00 L 36 RN ve ER 63 20 20 0 CA E EN 20 14 14 RE LE E- 1 WI HC PH S TZ AR RE MA BE 37 CY CC .5 A -2 #5 L 5 MG CP 00 07 09 2 30 30 TO 85 OS Ac TA 90 -2 -2 0. TA 71 AILYN ti NM 45 9- 3- 00 L 35 RN ve N 98 20 20 0 CA E D3 66 14 14 RE LE 0 WI 5, PH S 00 AR RE 0 MA BE UN CY CC IT A #5 L CA PS UL E AT 60 09 09 2 30 30 TO 86 OS Ac OR 50 -2 -2 0. TA 14 A[facility] ti [place] 52 3- 3- 00 L [address] 58 20 20 0 CA E AT 00 14 14 RE LE IN 9 WI PH S 40 AR RE MA BE MG CY CC A TA #5 L BL ET TO 31 04 09 5 90 30 TO 84 BR Ac PI 72 -2 -2 0. TA 95 AU ti RA 20 1- 3- 00 L 21 N ve MA 27 20 20 0 CA MA TE 81 14 14 RE RY 0 25 PH LO AR U MG MA CY TA BL #5 ET QU 68 08 09 5 30 30 TO 85 BR Ac ET 00 -2 -2 0. TA 91 AU ti IA 10 5- 3- 00 L 12 N ve PI 18 20 20 0 CA MA NE 00 14 14 RE RY 0 FU PH LO MA AR U RA MA TE CY 50 #5 MG TA B RI 68 08 09 5 60 30 TO 85 BR Ac SP 38 -2 -2 0. TA 91 AU ti ER 20 5- 3- 00 L 11 N ve ID 11 20 20 0 CA MA ON 60 14 14 RE RY E 5 3 PH LO MG AR U MA TA CY BL ET #5 ME 50 08 09 2 60 30 TO 85 OS Ac TO 74 -1 -1 0. TA 82 AILYN ti [place] 20 2- 6- 00 L 25 RN ve OL 10 20 20 0 CA E OL 70 14 14 RE LE 5 WI TA PH S RT AR RE RA MA BE TE CY CC A 25 #5 L MG TA B FI 00 09 09 0 60 30 TO 86 OS Ac SH 90 -0 -0 0. TA 03 AILYN ti 44 9- 9- 00 L 25 RN ve OI 04 20 20 0 CA E L 36 14 14 RE LE 1, 0 WI 00 PH S 0 AR RE MG MA BE CY CC CA A PS #5 L UL E ON 53 09 09 6 50 30 TO 86 LO Ac ET 88 -0 -0 0. TA 00 EB ti OU 50 5- 5- 00 L 47 KE ve CH 24 20 20 0 CA R 45 14 14 RE TA UL 0 MM TR PH Y A AR TE MA ST CY ST #5 RI PS TR 00 07 09 2 30 30 TO 85 OS Ac IA 52 -2 -0 0. TA 71 AILYN ti MT 71 9- 2- 00 L 36 RN ve ER 63 20 20 0 CA E EN 20 14 14 RE LE E- 1 WI HC PH S TZ AR RE MA BE 37 CY CC .5 A -2 #5 L 5 MG CP ME 68 07 09 2 60 30 TO 85 OS Ac TF 38 -0 -0 0. TA 56 AILYN ti OR 20 8- 2- 00 L 03 RN ve NM 02 20 20 0 CA E N 81 14 14 RE LE HC 0 WI L PH S 50 AR RE 0 MA BE MG CY CC A TA #5 L BL ET 00 07 08 2 30 30 TO 85 OS Ac TA 90 -2 -2 0. TA 71 AILYN ti NM 45 9- 6- 00 L 35 RN ve N 98 20 20 0 CA E D3 66 14 14 RE LE 0 WI 5, PH S 00 AR RE 0 MA BE UN CY CC IT A #5 L CA PS UL E GA 53 08 08 5 18 30 TO 85 BR Ac BA 74 -2 -2 00 TA 91 AU ti PE 60 5- 5- .0 L 10 N ve NT 10 20 20 00 CA MA IN 20 14 14 RE RY 5 30 PH LO 0 AR U MG MA CY CA PS #5 UL E RI 68 08 08 5 60 30 TO 85 BR Ac SP 38 -2 -2 0. TA 91 AU ti ER 20 5- 5- 00 L 11 N ve ID 11 20 20 0 CA MA ON 60 14 14 RE RY E 5 3 PH LO MG AR U MA TA CY BL ET #5 QU 68 08 08 5 30 30 TO 85 BR Ac ET 00 -2 -2 0. TA 91 AU ti IA 10 5- 5- 00 L 12 N ve PI 18 20 20 0 CA MA NE 00 14 14 RE RY 0 FU PH LO MA AR U RA MA TE CY 50 #5 MG TA B SE 59 08 08 5 60 30 TO 85 BR Ac RT 76 -2 -2 0. TA 91 AU ti RA 24 5- 5- 00 L 13 N ve LI 91 20 20 0 CA MA NE 00 14 14 RE RY 5 HC PH LO L AR U 10 MA 0 CY MG #5 TA BL ET 0 07 08 2 12 15 TO 85 LO Ac -3 -2 00 TA 73 EB ti 1- 0- .0 L 44 KE ve 20 20 00 CA R 14 14 RE TA MM PH Y AR MA CY #5 RI 68 07 08 5 60 30 TO 85 BR Ac SP 38 -2 -1 0. TA 65 AU ti ER 20 1- 9- 00 L 62 N ve ID 11 20 20 0 CA MA ON 71 14 14 RE RY E 4 4 PH LO MG AR U MA TA CY BL ET #5 AR 36 07 08 1 90 30 TO 85 OS Ac TH 80 -1 -1 0. TA 64 AILYN ti RI 00 8- 4- 00 L 09 RN ve TI 54 20 20 0 CA E S 46 14 14 RE LE PA 2 WI IN PH S AR RE ER MA BE CY CC 65 A 0 #[address] T LI 63 08 08 0 30 30 TO 85 LO Ac DO 48 -1 -1 0. TA 84 EB ti DE 10 4- 4- 00 L 08 KE ve RM 68 20 20 0 CA R 70 14 14 RE TA 5% 6 MM PH Y PA AR TC MA H CY #5 SE 00 08 08 2 60 30 TO 85 OS Ac NN 60 -1 -1 0. TA 82 AILYN ti A- 30 2- 2- 00 L 26 RN ve LA 28 20 20 0 CA E X 22 14 14 RE LE 8. 1 WI 6 PH S MG AR RE MA BE TA CY CC BL A ET #5 L AT 60 06 08 2 30 30 TO 85 OS Ac OR 50 -1 -1 0. TA 40 A[facility] ti VA 52 7- 2- 00 L [address] 58 20 20 0 CA E AT 00 14 14 RE LE IN 8 WI PH S 40 AR RE MA BE MG CY CC A TA #5 L BL ET ME 50 08 08 2 60 30 TO 85 OS Ac TO 74 -1 -1 0. TA 82 AILYN ti VA 20 2- 2- 00 L 25 RN ve OL 10 20 20 0 CA E OL 70 14 14 RE LE 5 WI TA PH S RT AR RE RA MA BE TE CY CC A 25 #5 L MG TA B SE 59 04 08 5 30 30 TO 84 BR Ac RT 76 -2 -1 0. TA 95 AU ti RA 24 1- 2- 00 L 18 N ve LI 91 20 20 0 CA MA NE 00 14 14 RE RY 5 HC PH LO L AR U 10 MA 0 CY MG #5 TA BL ET TO 31 04 08 5 90 30 TO 84 BR Ac PI 72 -2 -0 0. TA 95 AU ti RA 20 1- 5- 00 L 21 N ve MA 27 20 20 0 CA MA TE 81 14 14 RE RY 0 25 PH LO AR U MG MA CY TA BL #5 ET QU 68 07 08 5 60 30 TO 85 BR Ac ET 00 -0 -0 0. TA 56 AU ti IA 10 9- 5- 00 L 31 N ve PI 18 20 20 0 CA MA NE 40 14 14 RE RY 0 FU PH LO MA AR U RA MA TE CY 10 #5 0 MG TA B FI 00 08 08 0 60 30 TO 85 OS Ac SH 90 -0 -0 0. TA 76 AILYN ti 44 5- 5- 00 L 71 RN ve OI 04 20 20 0 CA E L 36 14 14 RE LE 1, 0 WI 00 PH S 0 AR RE MG MA BE CY CC CA A PS #5 L UL E NI 00 07 08 1 28 28 TO 85 OS Ac CO 06 -0 -0 0. TA 56 AILYN ti TI 75 8- 5- 00 L 04 RN ve NE 12 20 20 0 CA E 61 14 14 RE LE 21 4 WI PH S MG AR RE /2 MA BE 4H CY CC R A PA #5 L TC H ME 68 07 08 2 60 30 TO 85 OS Ac TF 38 -0 -0 0. TA 56 AILYN ti OR 20 8- 4- 00 L 03 RN ve NM 02 20 20 0 CA E N 81 14 14 RE LE HC 0 WI L PH S 50 AR RE 0 MA BE MG CY CC A TA #5 L BL ET 0 07 07 2 12 15 TO 85 LO Ac -3 -3 00 TA 73 EB ti 1- 1- .0 L 44 KE ve 20 20 00 CA R 14 14 RE TA MM PH Y AR MA CY #5 00 07 07 2 30 30 TO 85 OS Ac TA 90 -2 -2 0. TA 71 AILYN ti NM 45 9- 9- 00 L 35 RN ve N 98 20 20 0 CA E D3 66 14 14 RE LE 0 WI 5, PH S 00 AR RE 0 MA BE UN CY CC IT A #5 L CA PS UL E TR 00 07 07 2 30 30 TO 85 OS Ac IA 52 -2 -2 0. TA 71 AILYN ti MT 71 9- 9- 00 L 36 RN ve ER 63 20 20 0 CA E EN 20 14 14 RE LE E- 1 WI HC PH S TZ AR RE MA BE 37 CY CC .5 A -2 #5 L 5 MG CP ON 53 02 07 11 50 50 TO 84 OS Ac ET 88 -2 -2 0. TA 52 AILYN ti OU 50 8- 8- 00 L 09 RN ve CH 24 20 20 0 CA E 45 14 14 RE LE UL 0 WI TR PH S A AR RE TE MA BE ST CY CC A ST #5 L RI PS VA 00 07 07 3 67 32 TO 85 LO Ac OV 08 -2 -2 .0 TA 68 EB ti EN 51 4- 4- 00 L 24 KE ve TI 13 20 20 CA R L 20 14 14 RE TA HF 1 MM A PH Y 90 AR MA MC CY G IN #5 [place] LE R RI 68 07 07 5 60 30 TO 85 BR Ac SP 38 -2 -2 0. TA 65 AU ti ER 20 1- 3- 00 L 62 N ve ID 11 20 20 0 CA MA ON 71 14 14 RE RY E 4 4 PH LO MG AR U MA TA CY BL ET #5 RI 68 04 07 5 60 30 TO 84 BR Ac SP 38 -2 -2 0. TA 95 AU ti ER 20 1- 1- 00 L 19 N ve ID 11 20 20 0 CA MA ON 60 14 14 RE RY E 5 3 PH LO MG AR U MA TA CY BL ET #5 GA 53 07 07 5 27 30 TO 85 BR Ac BA 74 -2 -2 00 TA 65 AU ti PE 60 1- 1- .0 L 61 N ve NT 10 20 20 00 CA MA IN 20 14 14 RE RY 5 30 PH LO 0 AR U MG MA CY CA PS #5 UL E AR 36 07 07 1 90 30 TO 85 OS Ac TH 80 -1 -1 0. TA 64 AILYN ti RI 00 8- 8- 00 L 09 RN ve TI 54 20 20 0 CA E S 46 14 14 RE LE PA 2 WI IN PH S AR RE ER MA BE CY CC 65 A 0 #[address] T GA 53 06 07 5 18 30 TO 85 BR Ac BA 74 -1 -1 00 TA 41 AU ti PE 60 9- 6- .0 L 86 N ve NT 10 20 20 00 CA MA IN 20 14 14 RE RY 5 30 PH LO 0 AR U MG MA CY CA PS #5 UL E SE 59 04 07 5 30 30 TO 84 BR Ac RT 76 -2 -1 0. TA 95 AU ti RA 24 1- 5- 00 L 18 N ve LI 91 20 20 0 CA MA NE 00 14 14 RE RY 5 HC PH LO L AR U 10 MA 0 CY MG #5 TA BL ET ME 50 05 07 2 60 30 TO 85 OS Ac TO 74 -1 -1 0. TA 14 A[facility] ti VA 20 4- 5- 00 L 95 RN ve OL 10 20 20 0 CA E OL 70 14 14 RE LE 5 WI TA PH S RT AR RE RA MA BE TE CY CC A 25 #5 L MG TA B AT 60 06 07 2 30 30 TO 85 OS Ac OR 50 -1 -1 0. TA 40 A[facility] ti VA 52 7- 4- 00 L [address] 58 20 20 0 CA E AT 00 14 14 RE LE IN 8 WI PH S 40 AR RE MA BE MG CY CC A TA #5 L BL ET QU 68 07 07 5 60 30 TO 85 BR Ac ET 00 -0 -0 0. TA 56 AU ti IA 10 9- 9- 00 L 31 N ve PI 18 20 20 0 CA MA NE 40 14 14 RE RY 0 FU PH LO MA AR U RA MA TE CY 10 #5 0 MG TA B TO 68 04 07 5 90 30 TO 84 BR Ac PI 46 -2 -0 0. TA 95 AU ti RA 20 1- 8- 00 L 21 N ve MA 10 20 20 0 CA MA TE 81 14 14 RE RY 0 25 PH LO AR U MG MA CY TA BL #5 ET ME 68 07 07 2 60 30 TO 85 OS Ac TF 38 -0 -0 0. TA 56 AILYN ti OR 20 8- 8- 00 L 03 RN ve NM 02 20 20 0 CA E N 81 14 14 RE LE HC 0 WI L PH S 50 AR RE 0 MA BE MG CY CC A TA #5 L BL ET NI 00 07 07 1 28 28 TO 85 OS Ac CO 06 -0 -0 0. TA 56 AILYN ti TI 75 8- 8- 00 L 04 RN ve NE 12 20 20 0 CA E 61 14 14 RE LE 21 4 WI PH S MG AR RE /2 MA BE 4H CY CC R A PA #5 L TC H FI 00 07 07 0 60 30 TO 85 OS Ac SH 90 -0 -0 0. TA 55 AILYN ti 44 8- 8- 00 L 75 RN ve OI 04 20 20 0 CA E L 36 14 14 RE LE 1, 0 WI 00 PH S 0 AR RE MG MA BE CY CC CA A PS #5 L UL E TR 00 02 07 2 30 30 TO 84 OS Ac IA 52 -1 -0 0. TA 42 AILYN ti MT 71 4- 1- 00 L 04 RN ve ER 63 20 20 0 CA E EN 20 14 14 RE LE E- 1 WI HC PH S TZ AR RE MA BE 37 CY CC .5 A -2 #5 L 5 MG CP 00 04 07 2 30 30 TO 85 OS Ac TA 90 -3 -0 0. TA 03 AILYN ti NM 45 0- 1- 00 L 00 RN ve N 98 20 20 0 CA E D3 66 14 14 RE LE 0 WI 5, PH S 00 AR RE 0 MA BE UN CY CC IT A #5 L CA PS UL E RI 68 04 06 5 60 30 TO 84 BR Ac SP 38 -2 -2 0. TA 95 AU ti ER 20 1- 3- 00 L 19 N ve ID 11 20 20 0 CA MA ON 61 14 14 RE RY E 4 3 PH LO MG AR U MA TA CY BL ET QU 68 11 06 5 30 30 TO 83 BR Ac ET 18 -2 -2 0. TA 82 AU ti IA 00 5- 3- 00 L 48 N ve PI 44 20 20 0 CA MA NE 70 13 14 RE RY 1 FU PH LO MA AR U RA MA TE CY 10 0 MG TA B GA 53 06 06 5 18 30 TO 85 BR Ac BA 74 -1 -1 00 TA 41 AU ti PE 60 9- 9- .0 L 86 N ve NT 10 20 20 00 CA MA IN 20 14 14 RE RY 5 30 PH LO 0 AR U MG MA CY CA PS UL E SE 59 04 06 5 30 30 TO 84 BR Ac RT 76 -2 -1 0. TA 95 AU ti RA 24 1- 7- 00 L 18 N ve LI 91 20 20 0 CA MA NE 00 14 14 RE RY 5 HC PH LO L AR U 10 MA 0 CY MG TA BL ET ME 50 05 06 2 60 30 TO 85 OS Ac TO 74 -1 -1 0. TA 14 AILYN ti VA 20 4- 7- 00 L 95 RN ve OL 10 20 20 0 CA E OL 70 14 14 RE LE 5 WI TA PH S RT AR RE RA MA BE TE CY CC A 25 L MG TA B AT 60 06 06 2 30 30 TO 85 OS Ac OR 50 -1 -1 0. TA 40 A[facility] ti VA 52 7- 7- 00 L [address] 58 20 20 0 CA E AT 00 14 14 RE LE IN 8 WI PH S 40 AR RE MA BE MG CY CC A TA L BL ET ON 53 02 06 11 50 50 TO 84 OS Ac ET 88 -2 -1 0. TA 52 AILYN ti OU 50 8- 2- 00 L 09 RN ve CH 24 20 20 0 CA E 45 14 14 RE LE UL 0 WI TR PH S A AR RE TE MA BE ST CY CC A ST L RI PS TO 68 04 06 5 90 30 TO 84 BR Ac PI 46 -2 -1 0. TA 95 AU ti RA 20 1- 0- 00 L 21 N ve MA 10 20 20 0 CA MA TE 81 14 14 RE RY 0 25 PH LO AR U MG MA CY TA BL ET QU 68 03 06 5 30 15 TO 84 BR Ac ET 18 -1 -0 0. TA 61 AU ti IA 00 0- 9- 00 L 08 N ve PI 44 20 20 0 CA MA NE 70 14 14 RE RY 1 FU PH LO MA AR U RA MA TE CY 10 0 MG TA B FI 00 06 06 0 60 30 TO 85 OS Ac SH 90 -0 -0 0. TA 29 AILYN ti 44 3- 3- 00 L 40 RN ve OI 04 20 20 0 CA E L 36 14 14 RE LE 1, 0 WI 00 PH S 0 AR RE MG MA BE CY CC CA A PS L UL E 00 04 05 2 30 30 TO 85 OS Ac TA 90 -3 -2 0. TA 03 AILYN ti NM 45 0- 7- 00 L 00 RN ve N 98 20 20 0 CA E D3 66 14 14 RE LE 0 WI 5, PH S 00 AR RE 0 MA BE UN CY CC IT A L CA PS UL E TR 00 02 05 2 30 30 TO 84 OS Ac IA 52 -1 -2 0. TA 42 AILYN ti MT 71 4- 7- 00 L 04 RN ve ER 63 20 20 0 CA E EN 20 14 14 RE LE E- 1 WI HC PH S TZ AR RE MA BE 37 CY CC .5 A -2 L 5 MG CP SE 00 03 05 2 60 30 TO 84 OS Ac NN 60 -1 -2 0. TA 64 AILYN ti A- 30 2- 1- 00 L 07 RN ve LA 28 20 20 0 CA E X 22 14 14 RE LE 8. 1 WI 6 PH S MG AR RE MA BE TA CY CC BL A ET L RI 68 12 05 5 60 30 TO 83 BR Ac SP 38 -0 -2 0. TA 86 AU ti ER 20 2- 1- 00 L 69 N ve ID 11 20 20 0 CA MA ON 61 13 14 RE RY E 4 3 PH LO MG AR U MA TA CY BL ET QU 68 03 05 5 30 15 TO 84 BR Ac ET 18 -1 -2 0. TA 61 AU ti IA 00 0- 0- 00 L 08 N ve PI 44 20 20 0 CA MA NE 70 14 14 RE RY 1 FU PH LO MA AR U RA MA TE CY 10 0 MG TA B GA 53 11 05 5 18 30 TO 83 BR Ac BA 74 -2 -1 00 TA 82 AU ti PE 60 5- 5- .0 L 50 N ve NT 10 20 20 00 CA MA IN 20 13 14 RE RY 5 30 PH LO 0 AR U MG MA CY CA PS UL E ME 50 05 05 2 60 30 TO 85 OS Ac TO 74 -1 -1 0. TA 14 A[facility] ti VA 20 4- 4- 00 L 95 RN ve OL 10 20 20 0 CA E OL 70 14 14 RE LE 5 WI TA PH S RT AR RE RA MA BE TE CY CC A 25 L MG TA B CL 45 05 05 0 60 30 TO 85 OS Ac IN 80 -1 -1 0. TA 14 AILYN ti DA 20 4- 4- 00 L 96 RN ve MY 26 20 20 0 CA E CI 33 14 14 RE LE N 7 WI PH PH S OS AR RE MA BE 1% CY CC A PL L ED GE T AT 60 03 05 2 30 30 TO 84 OS Ac OR 50 -1 -1 0. TA 66 [facility] ti [place] 52 7- 2- 00 L [address] 58 20 20 0 CA E AT 00 14 14 RE LE IN 8 WI PH S 40 AR RE MA BE MG CY CC A TA L BL ET SE 59 12 05 5 30 30 TO 83 BR Ac RT 76 -0 -0 0. TA 86 AU ti RA 24 2- 6- 00 L 70 N ve LI 91 20 20 0 CA MA NE 00 13 14 RE RY 5 HC PH LO L AR U 10 MA 0 CY MG TA BL ET QU 68 03 05 5 30 15 TO 84 BR Ac ET 18 -1 -0 0. TA 61 AU ti IA 00 0- 6- 00 L 08 N ve PI 44 20 20 0 CA MA NE 70 14 14 RE RY 1 FU PH LO MA AR U RA MA TE CY 10 0 MG TA B TO 68 04 05 5 90 30 TO 84 BR Ac PI 46 -2 -0 0. TA 95 AU ti RA 20 1- 6- 00 L 21 N ve MA 10 20 20 0 CA MA TE 81 14 14 RE RY 0 25 PH LO AR U MG MA CY TA BL ET TR 00 02 04 2 30 30 TO 84 OS Ac IA 52 -1 -3 0. TA 42 AILYN ti MT 71 4- 0- 00 L 04 RN ve ER 63 20 20 0 CA E EN 20 14 14 RE LE E- 1 WI HC PH S TZ AR RE MA BE 37 CY CC .5 A -2 L 5 MG CP 00 04 04 2 30 30 TO 85 OS Ac TA 90 -3 -3 0. TA 03 AILYN ti NM 45 0- 0- 00 L 00 RN ve N 98 20 20 0 CA E D3 66 14 14 RE LE 0 WI 5, PH S 00 AR RE 0 MA BE UN CY CC IT A L CA PS UL E FI 00 04 04 0 60 30 TO 85 OS Ac SH 90 -3 -3 0. TA 03 AILYN ti 44 0- 0- 00 L 01 RN ve OI 04 20 20 0 CA E L 36 14 14 RE LE 1, 0 WI 00 PH S 0 AR RE MG MA BE CY CC CA A PS L UL E FL 00 01 04 6 16 30 TO 84 SC Ac UT 05 -1 -3 0. TA 18 [place] ti IC 43 5- 0- 00 L 99 FE ve 27 20 20 0 CA R ON 09 14 14 RE NM E 9 CH VA PH AE OP AR L MA G 50 CY MC G SP RA Y ON 53 02 04 11 50 50 TO 84 OS Ac ET 88 -2 -2 0. TA 52 AILYN ti OU 50 8- 8- 00 L 09 RN ve CH 24 20 20 0 CA E 45 14 14 RE LE UL 0 WI TR PH S A AR RE TE MA BE ST CY CC A ST L RI PS QU 68 03 04 5 30 15 TO 84 BR Ac ET 18 -1 -2 0. TA 61 AU ti IA 00 0- 1- 00 L 08 N ve PI 44 20 20 0 CA MA NE 70 14 14 RE RY 1 FU PH LO MA AR U RA MA TE CY 10 0 MG TA B RI 68 12 04 5 60 30 TO 83 BR Ac SP 38 -0 -1 0. TA 86 AU ti ER 20 2- 6- 00 L 69 N ve ID 11 20 20 0 CA MA ON 61 13 14 RE RY E 4 3 PH LO MG AR U MA TA CY BL ET ME 50 02 04 2 60 30 TO 84 OS Ac TO 74 -1 -1 0. TA 42 AILYN ti VA 20 4- 6- 00 L 02 RN ve OL 10 20 20 0 CA E OL 70 14 14 RE LE 5 WI TA PH S RT AR RE RA MA BE TE CY CC A 25 L MG TA B AT 60 03 04 2 30 30 TO 84 OS Ac OR 50 -1 -1 0. TA 66 AILYN ti VA 52 7- 4- 00 L [address] 58 20 20 0 CA E AT 00 14 14 RE LE IN 8 WI PH S 40 AR RE MA BE MG CY CC A TA L BL ET SE 00 03 04 2 60 30 TO 84 OS Ac NN 60 -1 -0 0. TA 64 AILYN ti A- 30 2- 9- 00 L 07 RN ve LA 28 20 20 0 CA E X 22 14 14 RE LE 8. 1 WI 6 PH S MG AR RE MA BE TA CY CC BL A ET L SE 59 12 04 5 30 30 TO 83 BR Ac RT 76 -0 -0 0. TA 86 AU ti RA 24 2- 9- 00 L 70 N ve LI 91 20 20 0 CA MA NE 00 13 14 RE RY 5 HC PH LO L AR U 10 MA 0 CY MG TA BL ET TO 68 11 04 5 90 30 TO 83 BR Ac PI 46 -2 -0 0. TA 82 AU ti RA 20 5- 9- 00 L 49 N ve MA 10 20 20 0 CA MA TE 81 13 14 RE RY 0 25 PH LO AR U MG MA CY TA BL ET GA 53 11 04 5 18 30 TO 83 BR Ac BA 74 -2 -0 00 TA 82 AU ti PE 60 5- 9- .0 L 50 N ve NT 10 20 20 00 CA MA IN 20 13 14 RE RY 5 30 PH LO 0 AR U MG MA CY CA PS UL E CL 45 04 04 0 60 30 TO 84 OS Ac IN 80 -0 -0 0. TA 85 AILYN ti DA 20 8- 8- 00 L 35 RN ve MY 26 20 20 0 CA E CI 33 14 14 RE LE N 7 WI PH PH S OS AR RE MA BE 1% CY CC A PL L ED GE T QU 68 03 04 5 30 15 TO 84 BR Ac ET 18 -1 -0 0. TA 61 AU ti IA 00 0- 7- 00 L 08 N ve PI 44 20 20 0 CA MA NE 70 14 14 RE RY 1 FU PH LO MA AR U RA MA TE CY 10 0 MG TA B TR 00 01 04 2 30 30 TO 84 OS Ac IA 52 -1 -0 0. TA 19 AILYN ti MT 71 5- 2- 00 L 01 RN ve ER 63 20 20 0 CA E EN 20 14 14 RE LE E- 1 WI HC PH S TZ AR RE MA BE 37 CY CC .5 A -2 L 5 MG CP FI 00 04 04 0 60 30 TO 84 OS Ac SH 90 -0 -0 0. TA 80 AILYN ti 44 2- 2- 00 L 45 RN ve OI 04 20 20 0 CA E L 36 14 14 RE LE 1, 0 WI 00 PH S 0 AR RE MG MA BE CY CC CA A PS L UL E QU 68 03 03 5 30 15 TO 84 BR Ac ET 18 -1 -2 0. TA 61 AU ti IA 00 0- 0- 00 L 08 N ve PI 44 20 20 0 CA MA NE 70 14 14 RE RY 1 FU PH LO MA AR U RA MA TE CY 10 0 MG TA B RI 68 12 03 5 60 30 TO 83 BR Ac SP 38 -0 -1 0. TA 86 AU ti ER 20 2- 9- 00 L 69 N ve ID 11 20 20 0 CA MA ON 61 13 14 RE RY E 4 3 PH LO MG AR U MA TA CY BL ET AT 60 03 03 2 30 30 TO 84 OS Ac OR 50 -1 -1 0. TA 66 AILYN ti VA 52 7- 7- 00 L [address] 58 20 20 0 CA E AT 00 14 14 RE LE IN 8 WI PH S 40 AR RE MA BE MG CY CC A TA L BL ET FU 50 03 03 0 70 7 TO 84 OS Ac RO 74 -1 -1 .0 TA 64 AILYN ti SE 20 2- 3- 00 L 08 RN ve NM 10 20 20 CA E DE 51 14 14 RE LE 0 WI 40 PH S AR RE MG MA BE CY CC TA A BL L ET SE 00 03 03 2 60 30 TO 84 OS Ac NN 60 -1 -1 0. TA 64 AILYN ti A- 30 2- 3- 00 L 07 RN ve LA 28 20 20 0 CA E X 22 14 14 RE LE 8. 1 WI 6 PH S MG AR RE MA BE TA CY CC BL A ET L ME 50 02 03 2 60 30 TO 84 OS Ac TO 74 -1 -1 0. TA 42 AILYN ti VA 20 4- 3- 00 L 02 RN ve OL 10 20 20 0 CA E OL 70 14 14 RE LE 5 WI TA PH S RT AR RE RA MA BE TE CY CC A 25 L MG TA B GA 53 11 03 5 18 30 TO 83 BR Ac BA 74 -2 -1 00 TA 82 AU ti PE 60 5- 2- .0 L 50 N ve NT 10 20 20 00 CA MA IN 20 13 14 RE RY 5 30 PH LO 0 AR U MG MA CY CA PS UL E TO 68 11 03 5 90 30 TO 83 BR Ac PI 46 -2 -1 0. TA 82 AU ti RA 20 5- 2- 00 L 49 N ve MA 10 20 20 0 CA MA TE 81 13 14 RE RY 0 25 PH LO AR U MG MA CY TA BL ET FI 00 03 03 0 60 30 TO 84 OS Ac SH 90 -0 -0 0. TA 57 AILYN ti 44 5- 5- 00 L 45 RN ve OI 04 20 20 0 CA E L 36 14 14 RE LE 1, 0 WI 00 PH S 0 AR RE MG MA BE CY CC CA A PS L UL E TR 00 01 03 2 30 30 TO 84 OS Ac IA 52 -1 -0 0. TA 19 AILYN ti MT 71 5- 4- 00 L 01 RN ve ER 63 20 20 0 CA E EN 20 14 14 RE LE E- 1 WI HC PH S TZ AR RE MA BE 37 CY CC .5 A -2 L 5 MG CP SE 59 12 03 5 30 30 TO 83 BR Ac RT 76 -0 -0 0. TA 86 AU ti RA 24 2- 4- 00 L 70 N ve LI 91 20 20 0 CA MA NE 00 13 14 RE RY 5 HC PH LO L AR U 10 MA 0 CY MG TA BL ET FU 50 02 03 0 70 7 TO 84 OS Ac RO 74 -2 -0 .0 TA 53 AILYN ti SE 20 8- 1- 00 L 58 RN ve NM 10 20 20 CA E DE 51 14 14 RE LE 0 WI 40 PH S AR RE MG MA BE CY CC TA A BL L ET ON 53 02 02 11 50 50 TO 84 OS Ac ET 88 -2 -2 0. TA 52 AILYN ti OU 50 8- 8- 00 L 09 RN ve CH 24 20 20 0 CA E 45 14 14 RE LE UL 0 WI TR PH S A AR RE TE MA BE ST CY CC A ST L RI PS ON 53 02 02 2 10 10 TO 84 OS Ac ET 88 -2 -2 00 0 TA 52 AILYN ti OU 50 8- 8- .0 L 08 RN ve CH 14 20 20 00 CA E 30 14 14 RE LE DE 1 WI LI PH S CA AR RE MA BE 33 CY CC G A LA L NC ET S ON 53 02 02 0 10 1 TO 84 OS Ac ET 88 -2 -2 .0 TA 52 AILYN ti OU 50 8- 8- 00 L 07 RN ve CH 44 20 20 CA E 80 14 14 RE LE UL 1 WI TR PH S A2 AR RE MA BE GL CY CC UC A OS L E SY ST TR 00 02 02 2 30 30 TO 84 OS Ac IC 07 -2 -2 0. TA 52 AILYN ti OR 46 8- 8- 00 L 10 RN ve 12 20 20 0 CA E 48 29 14 14 RE LE 0 WI MG PH S AR RE TA MA BE BL CY CC ET A L QU 68 11 02 5 30 30 TO 83 BR Ac ET 18 -2 -2 0. TA 82 AU ti IA 00 5- 6- 00 L 48 N ve PI 44 20 20 0 CA MA NE 70 13 14 RE RY 1 FU PH LO MA AR U RA MA TE CY 10 0 MG TA B LE 68 02 02 0 90 9 TO 84 Ac VO 18 -2 -2 .0 TA 50 ti FL 00 5- 6- 00 L 13 AN ve OX 24 20 20 CA AC 22 14 14 RE RO IN 0 DN PH EY 75 AR E 0 MA MG CY TA BL ET FU 50 02 02 0 70 7 TO 84 OS Ac RO 74 -1 -2 .0 TA 45 AILYN ti SE 20 9- 1- 00 L 39 RN ve NM 10 20 20 CA E DE 51 14 14 RE LE 0 WI 40 PH S AR RE MG MA BE CY CC TA A BL L ET 00 02 02 0 30 10 TO 84 OS Ac 59 -1 -1 0. TA 42 AILYN ti 13 4- 4- 00 L 05 RN ve 12 20 20 0 CA E 00 14 14 RE LE 1 WI PH S AR RE MA BE CY CC A L ME 50 02 02 2 60 30 TO 84 OS Ac TO 74 -1 -1 0. TA 42 AILYN ti VA 20 4- 4- 00 L 02 RN ve OL 10 20 20 0 CA E OL 70 14 14 RE LE 5 WI TA PH S RT AR RE RA MA BE TE CY CC A 25 L MG TA B FU 50 02 02 0 70 7 TO 84 OS Ac RO 74 -1 -1 .0 TA 42 AILYN ti SE 20 4- 4- 00 L 03 RN ve NM 10 20 20 CA E DE 51 14 14 RE LE 0 WI 40 PH S AR RE MG MA BE CY CC TA A BL L ET RI 68 12 02 5 60 30 TO 83 BR Ac SP 38 -0 -1 0. TA 86 AU ti ER 20 2- 2- 00 L 69 N ve ID 11 20 20 0 CA MA ON 61 13 14 RE RY E 4 3 PH LO MG AR U MA TA CY BL ET VA 68 02 02 2 30 30 TO 84 OS Ac AV 18 -0 -1 0. TA 36 AILYN ti 00 7- 1- 00 L 35 RN ve TA 48 20 20 0 CA E TI 80 14 14 RE LE N 2 WI SO PH S DI AR RE UM MA BE CY CC 80 A L MG TA B SE 00 12 02 2 60 30 TO 83 OS Ac NN 60 -0 -0 0. TA 89 AILYN ti A- 30 4- 7- 00 L 13 RN ve LA 28 20 20 0 CA E X 22 13 14 RE LE 8. 1 WI 6 PH S MG AR RE MA BE TA CY CC BL A ET L TO 68 11 02 5 90 30 TO 83 BR Ac PI 46 -2 -0 0. TA 82 AU ti RA 20 5- 7- 00 L 49 N ve MA 10 20 20 0 CA MA TE 81 13 14 RE RY 0 25 PH LO AR U MG MA CY TA BL ET GA 53 11 02 5 18 30 TO 83 BR Ac BA 74 -2 -0 00 TA 82 AU ti PE 60 5- 7- .0 L 50 N ve NT 10 20 20 00 CA MA IN 20 13 14 RE RY 5 30 PH LO 0 AR U MG MA CY CA PS UL E SE 59 12 02 5 30 30 TO 83 BR Ac RT 76 -0 -0 0. TA 86 AU ti RA 24 2- 5- 00 L 70 N ve LI 91 20 20 0 CA MA NE 00 13 14 RE RY 5 HC PH LO L AR U 10 MA 0 CY MG TA BL ET TR 00 01 02 2 30 30 TO 84 OS Ac IA 52 -1 -0 0. TA 19 AILYN ti MT 71 5- 5- 00 L 01 RN ve ER 63 20 20 0 CA E EN 20 14 14 RE LE E- 1 WI HC PH S TZ AR RE MA BE 37 CY CC .5 A -2 L 5 MG CP AM 59 11 02 2 30 30 TO 83 OS Ac LO 76 -1 -0 0. TA 72 AILYN ti DI 21 1- 5- 00 L 04 RN ve PI 53 20 20 0 CA E NE 00 13 14 RE LE 3 WI BE PH S SY AR RE LA MA BE TE CY CC 5 A L MG TA B QU 68 11 01 5 30 30 TO 83 BR Ac ET 18 -2 -2 0. TA 82 AU ti IA 00 5- 0- 00 L 48 N ve PI 44 20 20 0 CA MA NE 70 13 14 RE RY 1 FU PH LO MA AR U RA MA TE CY 10 0 MG TA B RI 68 12 01 5 60 30 TO 83 BR Ac SP 38 -0 -1 0. TA 86 AU ti ER 20 2- 6- 00 L 69 N ve ID 11 20 20 0 CA MA ON 61 13 14 RE RY E 4 3 PH LO MG AR U MA TA CY BL ET VA 68 11 01 2 30 30 TO 83 OS Ac AV 18 -0 -1 0. TA 68 AILYN ti 00 6- 5- 00 L 90 RN ve TA 48 20 20 0 CA E TI 80 13 14 RE LE N 2 WI SO PH S DI AR RE UM MA BE CY CC 80 A L MG TA B FI 00 01 01 0 60 30 TO 84 OS Ac SH 90 -1 -1 0. TA 19 AILYN ti 44 5- 5- 00 L 00 RN ve OI 04 20 20 0 CA E L 36 14 14 RE LE 1, 0 WI 00 PH S 0 AR RE MG MA BE CY CC CA A PS L UL E SE 00 12 01 2 60 30 TO 83 OS Ac NN 60 -0 -0 0. TA 89 AILYN ti A- 30 4- 8- 00 L 13 RN ve LA 28 20 20 0 CA E X 22 13 14 RE LE 8. 1 WI 6 PH S MG AR RE MA BE TA CY CC BL A ET L TO 68 11 01 5 90 30 TO 83 BR Ac PI 46 -2 -0 0. TA 82 AU ti RA 20 5- 8- 00 L 49 N ve MA 10 20 20 0 CA MA TE 81 13 14 RE RY 0 25 PH LO AR U MG MA CY TA BL ET FL 00 02 01 6 16 30 TO 81 SC Ac UT 05 -2 -0 0. TA 80 [place] ti IC 43 8- 7- 00 L 76 FE ve 27 20 20 0 CA R ON 09 13 14 RE NM E 9 CH VA PH AE OP AR L MA G 50 CY MC G SP RA Y CY 59 12 01 0 15 5 TO 84 RO Ac CL 74 -3 -0 0. TA 07 GE ti OB 60 1- 2- 00 L 92 RS ve EN 17 20 20 0 CA ZA 71 13 14 RE SH VA 0 AR IN PH ON E AR E 10 MA CY MG TA BL ET HY 00 12 01 0 10 2 TO [address] 60 -3 -0 0. TA 07 GE ti OC 33 1- 2- 00 L 93 RS ve OD 89 20 20 0 CA ON 02 13 14 RE SH -A 8 AR CE PH ON TA AR E NM MA NO CY PH EN 5- 32 5 GA 53 11 12 5 18 30 TO 83 BR Ac BA 74 -2 -3 00 TA 82 AU ti PE 60 5- 0- .0 L 50 N ve NT 10 20 20 00 CA MA IN 20 13 13 RE RY 5 30 PH LO 0 AR U MG MA CY CA PS UL E SE 59 12 12 5 30 30 TO 83 BR Ac RT 76 -0 -3 0. TA 86 AU ti RA 24 2- 0- 00 L 70 N ve LI 91 20 20 0 CA MA NE 00 13 13 RE RY 5 HC PH LO L AR U 10 MA 0 CY MG TA BL ET TR 00 10 12 2 30 30 TO 83 OS Ac IA 52 -3 -3 0. TA 63 AILYN ti MT 71 0- 0- 00 L 61 RN ve ER 63 20 20 0 CA E EN 20 13 13 RE LE E- 1 WI HC PH S TZ AR RE MA BE 37 CY CC .5 A -2 L 5 MG CP AM 59 11 12 2 30 30 TO 83 OS Ac LO 76 -1 -3 0. TA 72 AILYN ti DI 21 1- 0- 00 L 04 RN ve PI 53 20 20 0 CA E NE 00 13 13 RE LE 3 WI BE PH S SY AR RE LA MA BE TE CY CC 5 A L MG TA B QU 68 11 12 5 30 30 TO 83 BR Ac ET 18 -2 -2 0. TA 82 AU ti IA 00 5- 3- 00 L 48 N ve PI 44 20 20 0 CA MA NE 70 13 13 RE RY 1 FU PH LO MA AR U RA MA TE CY 10 0 MG TA B RI 68 12 12 5 60 30 TO 83 BR Ac SP 38 -0 -2 0. TA 86 AU ti ER 20 2- 0- 00 L 69 N ve ID 11 20 20 0 CA MA ON 61 13 13 RE RY E 4 3 PH LO MG AR U MA TA CY BL ET VA 68 11 12 2 30 30 TO 83 OS Ac AV 18 -0 -1 0. TA 68 AILYN ti 00 6- 1- 00 L 90 RN ve TA 48 20 20 0 CA E TI 80 13 13 RE LE N 2 WI SO PH S DI AR RE UM MA BE CY CC 80 A L MG TA B FL 00 02 12 6 16 30 TO 81 SC Ac UT 05 -2 -1 0. TA 80 [place] ti IC 43 8- 1- 00 L 76 FE ve 27 20 20 0 CA R ON 13 13 RE NM E 9 CH VA PH AE OP AR L MA G 50 CY MC G SP RA Y SE 00 12 12 2 60 30 TO 83 OS Ac NN 60 -0 -0 0. TA 89 AILYN ti A- 30 4- 4- 00 L 13 RN ve LA 28 20 20 0 CA E X 22 13 13 RE LE 8. 1 WI 6 PH S MG AR RE MA BE TA CY CC BL A ET L GA 53 11 12 5 18 30 TO 83 BR Ac BA 74 -2 -0 00 TA 82 AU ti PE 60 5- 3- .0 L 50 N ve NT 10 20 20 00 CA MA IN 20 13 13 RE RY 5 30 PH LO 0 AR U MG MA CY CA PS UL E TO 68 11 12 5 90 30 TO 83 BR Ac PI 46 -2 -0 0. TA 82 AU ti RA 20 5- 3- 00 L 49 N ve MA 10 20 20 0 CA MA TE 81 13 13 RE RY 0 25 PH LO AR U MG MA CY TA BL ET SE 59 12 12 5 30 30 TO 83 BR Ac RT 76 -0 -0 0. TA 86 AU ti RA 24 2- 2- 00 L 70 N ve LI 91 20 20 0 CA MA NE 00 13 13 RE RY 5 HC PH LO L AR U 10 MA 0 CY MG TA BL ET AM 59 11 11 2 30 30 TO 83 OS Ac LO 76 -1 -2 0. TA 72 AILYN ti DI 21 1- 6- 00 L 04 RN ve PI 53 20 20 0 CA E NE 00 13 13 RE LE 3 WI BE PH S SY AR RE LA MA BE TE CY CC 5 A L MG TA B TR 00 10 11 2 30 30 TO 83 OS Ac IA 52 -3 -2 0. TA 63 AILYN ti MT 71 0- 6- 00 L 61 RN ve ER 63 20 20 0 CA E EN 20 13 13 RE LE E- 1 WI HC PH S TZ AR RE MA BE 37 CY CC .5 A -2 L 5 MG CP FI 00 11 11 0 60 30 TO 83 OS Ac SH 90 -2 -2 0. TA 83 AILYN ti 44 6- 6- 00 L 27 RN ve OI 04 20 20 0 CA E L 36 13 13 RE LE 1, 0 WI 00 PH S 0 AR RE MG MA BE CY CC CA A PS L UL E QU 68 11 11 5 30 30 TO 83 BR Ac ET 18 -2 -2 0. TA 82 AU ti IA 00 5- 5- 00 L 48 N ve PI 44 20 20 0 CA MA NE 70 13 13 RE RY 1 FU PH LO MA AR U RA MA TE CY 10 0 MG TA B RI 68 11 11 5 45 30 TO 83 BR Ac SP 38 -2 -2 0. TA 82 AU ti ER 20 5- 5- 00 L 52 N ve ID 11 20 20 0 CA MA ON 61 13 13 RE RY E 4 3 PH LO MG AR U MA TA CY BL ET RI 68 10 11 3 45 30 TO 83 BR Ac SP 38 -1 -1 0. TA 53 AU ti ER 20 6- 3- 00 L 32 N ve ID 11 20 20 0 CA MA ON 51 13 13 RE RY E 4 2 PH LO MG AR U MA TA CY BL ET SE 59 10 11 3 15 30 TO 83 BR Ac RT 76 -1 -1 0. TA 53 AU ti RA 24 6- 3- 00 L 33 N ve LI 91 20 20 0 CA MA NE 00 13 13 RE RY 5 HC PH LO L AR U 10 MA 0 CY MG TA BL ET HY 00 11 11 0 60 5 TO [address] 60 -1 -1 0. TA 74 UN ti OC 33 3- 3- 00 L 37 KE ve OD 89 20 20 0 CA ME ON 02 13 13 RE YE -A 8 R CE PH MA TA AR TT NM MA HE NO CY W PH S EN 5- 32 5 VA 68 11 11 0 30 8 TO 83 GR Ac OM 38 -1 -1 0. TA 72 UN ti ET 20 2- 2- 00 L 94 KE ve [place] 04 20 20 0 CA ME ZI 11 13 13 RE YE NE 0 R PH MA 25 AR TT MA HE MG CY W S TA BL ET GA 53 08 11 5 18 30 TO 83 BR Ac BA 74 -2 -0 00 TA 11 AU ti PE 60 6- 6- .0 L 48 N ve NT 10 20 20 00 CA MA IN 20 13 13 RE RY 5 30 PH LO 0 AR U MG MA CY CA PS UL E TO 68 07 11 5 90 30 TO 82 BR Ac PI 46 -0 -0 0. TA 72 AU ti RA 20 1- 6- 00 L 28 N ve MA 10 20 20 0 CA MA TE 81 13 13 RE RY 0 25 PH LO AR U MG MA CY TA BL ET TR 50 07 11 4 60 30 TO 82 BR Ac AZ 11 -2 -0 0. TA 91 AU ti OD 10 9- 6- 00 L 66 N ve ON 43 20 20 0 CA MA E 40 13 13 RE RY 10 3 0 PH LO MG AR U MA TA CY BL ET VA 68 11 11 2 30 30 TO 83 OS Ac AV 18 -0 -0 0. TA 68 AILYN ti 00 6- 6- 00 L 90 RN ve TA 48 20 20 0 CA E TI 80 13 13 RE LE N 2 WI SO PH S DI AR RE UM MA BE CY CC 80 A L MG TA B SE 00 08 11 2 60 30 TO 83 OS Ac NN 60 -2 -0 0. TA 12 AILYN ti A- 30 7- 6- 00 L 89 RN ve LA 28 20 20 0 CA E X 22 13 13 RE LE 8. 1 WI 6 PH S MG AR RE MA BE TA CY CC BL A ET L FI 00 10 10 0 60 30 TO 83 OS Ac SH 90 -3 -3 0. TA 63 AILYN ti 44 0- 0- 00 L 63 RN ve OI 04 20 20 0 CA E L 36 13 13 RE LE 1, 0 WI 00 PH S 0 AR RE MG MA BE CY CC CA A PS L UL E TR 00 10 10 2 30 30 TO 83 OS Ac IA 52 -3 -3 0. TA 63 AILYN ti MT 71 0- 0- 00 L 61 RN ve ER 63 20 20 0 CA E EN 20 13 13 RE LE E- 1 WI HC PH S TZ AR RE MA BE 37 CY CC .5 A -2 L 5 MG CP AM 59 08 10 2 30 30 TO 83 OS Ac LO 76 -2 -3 0. TA 14 AILYN ti DI 21 9- 0- 00 L 23 RN ve PI 53 20 20 0 CA E NE 00 13 13 RE LE 3 WI BE PH S SY AR RE LA MA BE TE CY CC 5 A L MG TA B RI 68 10 10 3 45 30 TO 83 BR Ac SP 38 -1 -1 0. TA 53 AU ti ER 20 6- 6- 00 L 32 N ve ID 11 20 20 0 CA MA ON 51 13 13 RE RY E 4 2 PH LO MG AR U MA TA CY BL ET SE 59 10 10 3 15 30 TO 83 BR Ac RT 76 -1 -1 0. TA 53 AU ti RA 24 6- 6- 00 L 33 N ve LI 91 20 20 0 CA MA NE 00 13 13 RE RY 5 HC PH LO L AR U 10 MA 0 CY MG TA BL ET TO 62 07 10 5 90 30 TO 82 BR Ac PI 75 -0 -0 0. TA 72 AU ti RA 60 1- 2- 00 L 28 N ve MA 70 20 20 0 CA MA TE 78 13 13 RE RY 6 25 PH LO AR U MG MA CY TA BL ET TR 50 07 10 4 60 30 TO 82 BR Ac AZ 11 -2 -0 0. TA 91 AU ti OD 10 9- 2- 00 L 66 N ve ON 43 20 20 0 CA MA E 40 13 13 RE RY 10 3 0 PH LO MG AR U MA TA CY BL ET HY 00 10 10 0 10 2 TO [address] 60 -0 -0 0. TA 41 RR ti OC 33 1- 2- 00 L 54 EN ve OD 89 20 20 0 CA ON 02 13 13 RE BR -A 8 EN CE PH TO TA AR N NM MA D NO CY PH EN 5- 32 5 SE 00 08 10 2 60 30 TO 83 OS Ac NN 60 -2 -0 0. TA 12 AILYN ti A- 30 7- 2- 00 L 89 RN ve LA 28 20 20 0 CA E X 22 13 13 RE LE 8. 1 WI 6 PH S MG AR RE MA BE TA CY CC BL A ET L VA 68 07 10 2 30 30 TO 82 OS Ac AV 18 -2 -0 0. TA 88 AILYN ti 00 5- 2- 00 L 73 RN ve TA 48 20 20 0 CA E TI 80 13 13 RE LE N 2 WI SO PH S DI AR RE UM MA BE CY CC 80 A L MG TA B AM 59 08 10 2 30 30 TO 83 OS Ac LO 76 -2 -0 0. TA 14 AILYN ti DI 21 9- 2- 00 L 23 RN ve PI 53 20 20 0 CA E NE 00 13 13 RE LE 3 WI BE PH S SY AR RE LA MA BE TE CY CC 5 A L MG TA B FI 30 09 09 0 60 30 TO 83 OS Ac SH 76 -2 -2 0. TA 36 AILYN ti 80 5- 5- 00 L 16 RN ve OI 03 20 20 0 CA E L 30 13 13 RE LE 1, 4 WI 00 PH S 0 AR RE MG MA BE CY CC SO A FT L GE L TR 00 07 09 2 30 30 TO 82 OS Ac IA 52 -2 -2 0. TA 88 AILYN ti MT 71 5- 5- 00 L 71 RN ve ER 63 20 20 0 CA E EN 20 13 13 RE LE E- 1 WI HC PH S TZ AR RE MA BE 37 CY CC .5 A -2 L 5 MG CP GA 53 08 09 5 18 30 TO 83 BR Ac BA 74 -2 -2 00 TA 11 AU ti PE 60 6- 5- .0 L 48 N ve NT 10 20 20 00 CA MA IN 20 13 13 RE RY 5 30 PH LO 0 AR U MG MA CY CA PS UL E LA 63 09 09 5 30 30 TO 83 BR Ac TU 40 -0 -0 0. TA 23 AU ti DA 20 9- 9- 00 L 84 N ve 30 20 20 0 CA MA 80 83 13 13 RE RY 0 MG PH LO AR U TA MA BL CY ET #5 Sa 63 09 0 No li 80 -0 ne 70 2- Lo 10 20 ng Fl 07 13 er us 5 h Ac 10 ti ML ve Sy ri ng e AM 59 08 08 2 30 30 TO 83 OS Ac LO 76 -2 -2 0. TA 14 AILYN ti DI 21 9- 9- 00 L 23 RN ve PI 53 20 20 0 CA E NE 00 13 13 RE LE 3 WI BE PH S SY AR RE LA MA BE TE CY CC 5 A L MG TA B TR 00 07 08 2 30 30 TO 82 OS Ac IA 52 -2 -2 0. TA 88 AILYN ti MT 71 5- 8- 00 L 71 RN ve ER 63 20 20 0 CA E EN 20 13 13 RE LE E- 1 WI HC PH S TZ AR RE MA BE 37 CY CC .5 A -2 L 5 MG CP VA 68 07 08 2 30 30 TO 82 OS Ac AV 18 -2 -2 0. TA 88 AILYN ti 00 5- 8- 00 L 73 RN ve TA 48 20 20 0 CA E TI 80 13 13 RE LE N 2 WI SO PH S DI AR RE UM MA BE CY CC 80 A L MG TA B TO 68 07 08 5 90 30 TO 82 BR Ac PI 46 -0 -2 0. TA 72 AU ti RA 20 1- 8- 00 L 28 N ve MA 10 20 20 0 CA MA TE 81 13 13 RE RY 0 25 PH LO AR U MG MA CY TA BL ET TR 50 07 08 4 60 30 TO 82 BR Ac AZ 11 -2 -2 0. TA 91 AU ti OD 10 9- 8- 00 L 66 N ve ON 43 20 20 0 CA MA E 40 13 13 RE RY 10 3 0 PH LO MG AR U MA TA CY BL ET SE 00 08 08 2 60 30 TO 83 OS Ac NN 60 -2 -2 0. TA 12 AILYN ti A- 30 7- 7- 00 L 89 RN ve LA 28 20 20 0 CA E X 22 13 13 RE LE 8. 1 WI 6 PH S MG AR RE MA BE TA CY CC BL A ET L FI 30 08 08 0 60 30 TO 83 OS Ac SH 76 -2 -2 0. TA 12 AILYN ti 80 7- 7- 00 L 86 RN ve OI 03 20 20 0 CA E L 30 13 13 RE LE 1, 4 WI 00 PH S 0 AR RE MG MA BE CY CC SO A FT L GE L GA 53 08 08 5 18 30 TO 83 BR Ac BA 74 -2 -2 00 TA 11 AU ti PE 60 6- 6- .0 L 48 N ve NT 10 20 20 00 CA MA IN 20 13 13 RE RY 5 30 PH LO 0 AR U MG MA CY CA PS UL E LA 63 08 08 2 30 30 TO 83 AL Ac TU 40 -2 -2 0. TA 09 VA ti DA 20 1- 2- 00 L 02 RE ve 30 20 20 0 CA Z 40 43 13 13 RE AN 0 TH MG PH ON AR Y TA MA W BL CY ET FL 00 02 08 6 16 30 TO 81 SC Ac UT 05 -2 -1 0. TA 80 [place] ti IC 43 8- 4- 00 L 76 FE ve 27 20 20 0 CA R ON 09 13 13 RE NM E 9 CH VA PH AE OP AR L MA G 50 CY MC G SP RA Y LA 13 07 08 2 60 30 TO 82 GR Ac MO 66 -1 -1 0. TA 80 OS ti TR 80 0- 4- 00 L 42 S ve IG 04 20 20 0 CA LA IN 70 13 13 RE RR E 1 Y 10 PH 0 AR MG MA CY TA BL ET GA 53 07 08 5 12 30 TO 82 BR Ac BA 74 -0 -0 00 TA 72 AU ti PE 60 1- 7- .0 L 27 N ve NT 10 20 20 00 CA MA IN 20 13 13 RE RY 5 30 PH LO 0 AR U MG MA CY CA PS UL E BE 00 06 08 1 30 30 TO 82 AL Ac NZ 60 -2 -0 0. TA 68 VA ti TR 32 5- 7- 00 L 44 RE ve OP 43 20 20 0 CA Z IN 43 13 13 RE AN E 2 TH ME PH ON S AR Y 1 MA W MG CY TA BL ET SE 59 06 08 1 45 30 TO 82 AL Ac RT 76 -2 -0 0. TA 68 VA ti RA 24 5- 7- 00 L 43 RE ve LI 91 20 20 0 CA Z NE 00 13 13 RE AN 5 TH HC PH ON L AR Y 10 MA W 0 CY MG TA BL ET DI 00 08 08 0 60 30 TO 82 BR Ac AZ 17 -0 -0 0. TA 93 AU ti EP 23 1- 1- 00 L 91 N ve AM 92 20 20 0 CA MA 5 68 13 13 RE RY 0 MG PH LO AR U TA MA BL CY ET TO 68 07 07 5 90 30 TO 82 BR Ac PI 46 -0 -3 0. TA 72 AU ti RA 20 1- 1- 00 L 28 N ve MA 10 20 20 0 CA MA TE 81 13 13 RE RY 0 25 PH LO AR U MG MA CY TA BL ET RI 68 06 07 1 60 30 TO 82 AL Ac SP 38 -2 -3 0. TA 68 VA ti ER 20 5- 1- 00 L 42 RE ve ID 11 20 20 0 CA Z ON 51 13 13 RE AN E 4 TH 2 PH ON MG AR Y MA W TA CY BL ET NI 00 07 07 1 28 28 TO 82 OS Ac CO 06 -3 -3 0. TA 92 AILYN ti TI 75 0- 0- 00 L 30 RN ve NE 12 20 20 0 CA E 61 13 13 RE LE 21 4 WI PH S MG AR RE /2 MA BE 4H CY CC R A PA L TC H FU 50 07 07 0 30 3 TO 82 OS Ac RO 74 -3 -3 .0 TA 92 AILYN ti SE 20 0- 0- 00 L 31 RN ve NM 10 20 20 CA E DE 51 13 13 RE LE 0 WI 40 PH S AR RE MG MA BE CY CC TA A BL L ET TR 50 07 07 4 60 30 TO 82 BR Ac AZ 11 -2 -2 0. TA 91 AU ti OD 10 9- 9- 00 L 66 N ve ON 43 20 20 0 CA MA E 40 13 13 RE RY 10 3 0 PH LO MG AR U MA TA CY BL ET VA 68 07 07 2 30 30 TO 82 OS Ac AV 18 -2 -2 0. TA 88 AILYN ti 00 5- 5- 00 L 73 RN ve TA 48 20 20 0 CA E TI 80 13 13 RE LE N 2 WI SO PH S DI AR RE UM MA BE CY CC 80 A L MG TA B TR 00 07 07 2 30 30 TO 82 OS Ac IA 52 -2 -2 0. TA 88 AILYN ti MT 71 5- 5- 00 L 71 RN ve ER 63 20 20 0 CA E EN 20 13 13 RE LE E- 1 WI HC PH S TZ AR RE MA BE 37 CY CC .5 A -2 L 5 MG CP AM 59 05 07 2 30 30 TO 82 WE Ac LO 76 -2 -2 0. TA 46 IS ti DI 21 3- 4- 00 L 23 S ve PI 53 20 20 0 CA HE NE 00 13 13 RE LE 3 N BE PH SY AR LA MA TE CY 5 MG TA B LA 13 07 07 2 60 30 TO 82 GR Ac MO 66 -1 -1 0. TA 80 OS ti TR 80 0- 2- 00 L 42 S ve IG 04 20 20 0 CA LA IN 70 13 13 RE RR E 1 Y 10 PH 0 AR MG MA CY TA BL ET SE 00 07 07 0 60 30 TO 82 WE Ac NN 60 -0 -0 0. TA 74 IS ti A- 30 3- 3- 00 L 78 S ve LA 28 20 20 0 CA HE X 22 13 13 RE LE 8. 1 N 6 PH MG AR MA TA CY BL ET AM 00 07 07 0 30 10 TO 82 SC Ac OX 78 -0 -0 0. TA 75 [place] ti IC 12 3- 3- 00 L 12 CK ve IL 61 20 20 0 CA LI 30 13 13 RE BR N 5 IA 50 PH N 0 AR MG MA CY CA PS UL E 48 07 07 0 35 7 TO 82 OS Ac 10 -0 -0 .0 TA 73 AILYN ti 20 2- 2- 00 L 83 RN ve 00 20 20 CA E 83 13 13 RE LE 5 WI PH S AR RE MA BE CY CC A L RI 68 06 06 1 60 30 TO 82 AL Ac SP 38 -2 -2 0. TA 68 VA ti ER 20 5- 8- 00 L 42 RE ve ID 11 20 20 0 CA Z ON 51 13 13 RE AN E 4 TH 2 PH ON MG AR Y MA W TA CY BL ET QU 68 06 06 1 30 30 TO 82 AL Ac ET 18 -2 -2 0. TA 68 VA ti IA 00 5- 8- 00 L 45 RE ve PI 44 20 20 0 CA Z NE 70 13 13 RE AN 1 TH FU PH ON MA AR Y RA MA W TE CY 10 0 MG TA B FL 00 02 06 6 16 30 TO 81 SC Ac UT 05 -2 -2 0. TA 80 [place] ti IC 43 8- 8- 00 L 76 FE ve 27 20 20 0 CA R ON 09 13 13 RE NM E 9 CH VA PH AE OP AR L MA G 50 CY MC G SP RA Y TO 68 03 06 5 90 30 TO 81 BR Ac PI 46 -1 -2 0. TA 96 AU ti RA 20 8- 6- 00 L 02 N ve MA 10 20 20 0 CA MA TE 81 13 13 RE RY 0 25 PH LO AR U MG MA CY TA BL ET BE 00 06 06 1 30 30 TO 82 AL Ac NZ 60 -2 -2 0. TA 68 VA ti TR 32 5- 5- 00 L 44 RE ve OP 43 20 20 0 CA Z IN 43 13 13 RE AN E 2 TH ME PH ON S AR Y 1 MA W MG CY TA BL ET SE 59 06 06 1 45 30 TO 82 AL Ac RT 76 -2 -2 0. TA 68 VA ti RA 24 5- 5- 00 L 43 RE ve LI 91 20 20 0 CA Z NE 00 13 13 RE AN 5 TH HC PH ON L AR Y 10 MA W 0 CY MG TA BL ET BE 00 03 06 5 30 30 TO 81 BR Ac NZ 60 -1 -2 0. TA 96 AU ti TR 32 8- 0- 00 L 01 N ve OP 43 20 20 0 CA MA IN 32 13 13 RE RY E 1 ME PH LO S AR U 0. MA 5 CY MG TA B GA 53 05 06 4 18 30 TO 82 BR Ac BA 74 -1 -1 00 TA 38 AU ti PE 60 3- 9- .0 L 41 N ve NT 10 20 20 00 CA MA IN 20 13 13 RE RY 5 30 PH LO 0 AR U MG MA CY CA PS UL E AM 59 05 06 2 30 30 TO 82 WE Ac LO 76 -2 -1 0. TA 46 IS ti DI 21 3- 9- 00 L 23 S ve PI 53 20 20 0 CA HE NE 00 13 13 RE LE 3 N BE PH SY AR LA MA TE CY 5 MG TA B RI 68 06 06 0 30 30 TO 82 BR Ac SP 38 -1 -1 0. TA 64 AU ti ER 20 7- 8- 00 L 37 N ve ID 11 20 20 0 CA MA ON 61 13 13 RE RY E 4 3 PH LO MG AR U MA TA CY BL ET VA 68 06 06 0 30 30 TO 82 WE Ac AV 18 -1 -1 0. TA 60 IS ti 00 3- 3- 00 L 99 S ve TA 48 20 20 0 CA HE TI 80 13 13 RE LE N 2 N SO PH DI AR UM MA CY 80 MG TA B FI 30 06 06 0 60 30 TO 82 WE Ac SH 76 -1 -1 0. TA 61 IS ti 80 3- 3- 00 L 00 S ve OI 03 20 20 0 CA HE L 30 13 13 RE LE 1, 4 N 00 PH 0 AR MG MA CY SO FT GE L TR 00 04 06 2 30 30 TO 82 WE Ac IA 52 -1 -1 0. TA 14 IS ti MT 71 1- 2- 00 L 82 S ve ER 63 20 20 0 CA HE EN 20 13 13 RE LE E- 1 N HC PH TZ AR MA 37 CY .5 -2 5 MG CP QU 68 05 06 4 30 30 TO 82 BR Ac ET 18 -0 -1 0. TA 30 AU ti IA 00 3- 2- 00 L 82 N ve PI 44 20 20 0 CA MA NE 90 13 13 RE RY 7 FU PH LO MA AR U RA MA TE CY 30 0 MG TA B LA 51 03 06 5 60 30 TO 81 BR Ac MO 67 -0 -1 0. TA 83 AU ti TR 24 4- 2- 00 L 94 N ve IG 13 20 20 0 CA MA IN 10 13 13 RE RY E 1 10 PH LO 0 AR U MG MA CY TA BL ET DI 00 06 06 0 12 30 TO 82 BR Ac AZ 17 -0 -0 00 TA 56 AU ti EP 23 6- 6- .0 L 22 N ve AM 92 20 20 00 CA MA 5 68 13 13 RE RY 0 MG PH LO AR U TA MA BL CY ET TY 50 06 0 No LE 58 -0 NO 00 3- Lo L 45 20 ng EX 10 13 er -S 3 TR Ac ti [address] ve [address] ET SE 00 05 05 0 60 30 TO 82 WE Ac NN 60 -3 -3 0. TA 50 IS ti A- 30 0- 0- 00 L 56 S ve LA 28 20 20 0 CA HE X 22 13 13 RE LE 8. 1 N 6 PH MG AR MA TA CY BL ET SE 59 04 05 5 30 30 TO 82 BR Ac RT 76 -2 -2 0. TA 23 AU ti RA 24 2- 9- 00 L 80 N ve LI 91 20 20 0 CA MA NE 00 13 13 RE RY 5 HC PH LO L AR U 10 MA 0 CY MG TA BL ET RI 68 05 05 4 60 30 TO 82 BR Ac SP 38 -0 -2 0. TA 30 AU ti ER 20 3- 8- 00 L 83 N ve ID 11 20 20 0 CA MA ON 51 13 13 RE RY E 4 2 PH LO MG AR U MA TA CY BL ET PO 00 05 05 0 14 7 TO 82 SO Ac TA 78 -2 -2 0. TA 49 KA ti SS 11 7- 8- 00 L 05 N ve IU 52 20 20 0 CA BA M 61 13 13 RE BA CL 0 TU PH ND ER AR E MA O 10 CY ME Q TA BL ET OX 00 05 05 0 12 2 TO 82 MU Ac YC 40 -2 -2 0. TA 47 RL ti OD 60 3- 4- 00 L 56 EY ve ON 51 20 20 0 CA E- 20 13 13 RE HE AC 1 ID ET PH I AM AR C IN MA OP CY HE N 5- 32 5 BE 00 03 05 5 30 30 TO 81 BR Ac NZ 60 -1 -2 0. TA 96 AU ti TR 32 8- 4- 00 L 01 N ve OP 43 20 20 0 CA MA IN 32 13 13 RE RY E 1 ME PH LO S AR U 0. MA 5 CY MG TA B AM 59 05 05 2 30 30 TO 82 WE Ac LO 76 -2 -2 0. TA 46 IS ti DI 21 3- 3- 00 L 23 S ve PI 53 20 20 0 CA HE NE 00 13 13 RE LE 3 N BE PH SY AR LA MA TE CY 5 MG TA B TO 68 03 05 5 90 30 TO 81 BR Ac PI 46 -1 -2 0. TA 96 AU ti RA 20 8- 2- 00 L 02 N ve MA 10 20 20 0 CA MA TE 81 13 13 RE RY 0 25 PH LO AR U MG MA CY TA BL ET FI 30 05 05 0 60 30 TO 82 WE Ac SH 76 -1 -1 0. TA 41 IS ti 80 6- 6- 00 L 19 S ve OI 03 20 20 0 CA HE L 30 13 13 RE LE 1, 4 N 00 PH 0 AR MG MA CY SO FT GE L TR 00 04 05 2 30 30 TO 82 WE Ac IA 52 -1 -1 0. TA 14 IS ti MT 71 1- 5- 00 L 82 S ve ER 63 20 20 0 CA HE EN 20 13 13 RE LE E- 1 N HC PH TZ AR MA 37 CY .5 -2 5 MG CP VA 68 05 05 0 30 30 TO 82 WE Ac AV 18 -1 -1 0. TA 36 IS ti 00 0- 4- 00 L 78 S ve TA 48 20 20 0 CA HE TI 80 13 13 RE LE N 2 N SO PH DI AR UM MA CY 80 MG TA B CL 00 05 05 0 90 30 TO 82 GR Ac ON 18 -1 -1 0. TA 38 OS ti AZ 50 3- 4- 00 L 95 S ve EP 06 20 20 0 CA LA AM 41 13 13 RE RR 1 0 Y PH MG AR MA TA CY BL ET OX 00 05 05 0 20 2 TO 82 MU Ac YC 40 -1 -1 0. TA 39 RL ti OD 60 4- 4- 00 L 67 EY ve ON 51 20 20 0 CA E- 20 13 13 RE HE AC 1 ID ET PH I AM AR C IN MA OP CY HE N 5- 32 5 GA 53 05 05 4 18 30 TO 82 BR Ac BA 74 -1 -1 00 TA 38 AU ti PE 60 3- 3- .0 L 41 N ve NT 10 20 20 00 CA MA IN 20 13 13 RE RY 5 30 PH LO 0 AR U MG MA CY CA PS UL E FL 00 02 05 6 16 30 TO 81 SC Ac UT 05 -2 -0 0. TA 80 [place] ti IC 43 8- 9- 00 L 76 FE ve 27 20 20 0 CA R ON 09 13 13 RE NM E 9 CH VA PH AE OP AR L MA G 50 CY MC G SP RA Y QU 68 05 05 4 30 30 TO 82 BR Ac ET 18 -0 -0 0. TA 30 AU ti IA 00 3- 3- 00 L 82 N ve PI 44 20 20 0 CA MA NE 90 13 13 RE RY 7 FU PH LO MA AR U RA MA TE CY 30 0 MG TA B SE 00 05 05 0 60 30 TO 82 WE Ac NN 60 -0 -0 0. TA 29 IS ti A- 30 2- 2- 00 L 20 S ve LA 28 20 20 0 CA HE X 22 13 13 RE LE 8. 1 N 6 PH MG AR MA TA CY BL ET RI 68 05 05 3 60 30 TO 82 BR Ac SP 38 -0 -0 0. TA 29 AU ti ER 20 1- 1- 00 L 14 N ve ID 11 20 20 0 CA MA ON 51 13 13 RE RY E 4 2 PH LO MG AR U MA TA CY BL ET QU 68 05 05 3 45 30 TO 82 BR Ac ET 18 -0 -0 0. TA 29 AU ti IA 00 1- 1- 00 L 16 N ve PI 44 20 20 0 CA MA NE 80 13 13 RE RY 1 FU PH LO MA AR U RA MA TE CY 20 0 MG TA B LA 68 03 05 5 60 30 TO 81 BR Ac MO 38 -0 -0 0. TA 83 AU ti TR 20 4- 1- 00 L 94 N ve IG 00 20 20 0 CA MA IN 80 13 13 RE RY E 1 10 PH LO 0 AR U MG MA CY TA BL ET BE 00 03 04 5 30 30 TO 81 BR Ac NZ 60 -1 -2 0. TA 96 AU ti TR 32 8- 7- 00 L 01 N ve OP 43 20 20 0 CA MA IN 32 13 13 RE RY E 1 ME PH LO S AR U 0. MA 5 CY MG TA B CL 00 04 04 0 60 30 TO 82 GR Ac ON 18 -2 -2 0. TA 22 OS ti AZ 50 2- 4- 00 L 82 S ve EP 06 20 20 0 CA LA AM 41 13 13 RE RR 1 0 Y PH MG AR MA TA CY BL ET AM 59 02 04 2 30 30 TO 81 WE Ac LO 76 -2 -2 0. TA 74 IS ti DI 21 0- 4- 00 L 87 S ve PI 53 20 20 0 CA HE NE 00 13 13 RE LE 3 N BE PH SY AR LA MA TE CY 5 MG TA B SE 59 04 04 5 30 30 TO 82 BR Ac RT 76 -2 -2 0. TA 23 AU ti RA 24 2- 3- 00 L 80 N ve LI 91 20 20 0 CA MA NE 00 13 13 RE RY 5 HC PH LO L AR U 10 MA 0 CY MG TA BL ET GA 53 04 04 5 12 30 TO 82 BR Ac BA 74 -2 -2 00 TA 23 AU ti PE 60 2- 3- .0 L 81 N ve NT 10 20 20 00 CA MA IN 20 13 13 RE RY 5 30 PH LO 0 AR U MG MA CY CA PS UL E TO 68 03 04 5 90 30 TO 81 BR Ac PI 46 -1 -1 0. TA 96 AU ti RA 20 8- 7- 00 L 02 N ve MA 10 20 20 0 CA MA TE 81 13 13 RE RY 0 25 PH LO AR U MG MA CY TA BL ET QU 68 03 04 5 30 30 TO 81 BR Ac ET 18 -1 -1 0. TA 96 AU ti IA 00 8- 7- 00 L 00 N ve PI 44 20 20 0 CA MA NE 70 13 13 RE RY 1 FU PH LO MA AR U RA MA TE CY 10 0 MG TA B FI 30 04 04 0 60 30 TO 82 WE Ac SH 76 -1 -1 0. TA 19 IS ti 80 7- 7- 00 L 49 S ve OI 03 20 20 0 CA HE L 30 13 13 RE LE 1, 4 N 00 PH 0 AR MG MA CY SO FT GE L VA 68 04 04 0 30 30 TO 82 WE Ac AV 18 -1 -1 0. TA 19 IS ti 00 7- 7- 00 L 47 S ve TA 48 20 20 0 CA HE TI 80 13 13 RE LE N 2 N SO PH DI AR UM MA CY 80 MG TA B PA 24 04 04 0 30 5 TO 82 WE Ac IN 38 -1 -1 0. TA 15 IS ti 50 2- 2- 00 L 88 S ve RE 48 20 20 0 CA HE LI 47 13 13 RE LE EV 1 N ER PH AR 50 MA [address] ET 00 04 04 0 40 10 TO 82 WE Ac 59 -1 -1 0. TA 15 IS ti 13 2- 2- 00 L 87 S ve 12 20 20 0 CA HE 00 13 13 RE LE 1 N PH AR MA CY TR 00 04 04 2 30 30 TO 82 WE Ac IA 52 -1 -1 0. TA 14 IS ti MT 71 1- 1- 00 L 82 S ve ER 63 20 20 0 CA HE EN 20 13 13 RE LE E- 1 N HC PH TZ AR MA 37 CY .5 -2 5 MG CP FL 00 02 04 6 16 30 TO 81 SC Ac UT 05 -2 -0 0. TA 80 [place] ti IC 43 8- 3- 00 L 76 FE ve 27 20 20 0 CA R ON 09 13 13 RE NM E 9 CH VA PH AE OP AR L MA G 50 CY MC G SP RA Y SE 00 04 04 0 60 30 TO 82 WE Ac NN 60 -0 -0 0. TA 07 IS ti A- 30 2- 2- 00 L 73 S ve LA 28 20 20 0 CA HE X 22 13 13 RE LE 8. 1 N 6 PH MG AR MA TA CY BL ET GA 60 04 04 4 90 32 TO 82 BR Ac BA 50 -0 -0 0. TA 08 AU ti PE 52 1- 2- 00 L 07 N ve NT 55 20 20 0 CA MA IN 10 13 13 RE RY 5 60 PH LO 0 AR U MG MA CY TA BL ET RI 68 03 03 5 60 30 TO 81 BR Ac SP 38 -1 -3 0. TA 96 AU ti ER 20 8- 1- 00 L 03 N ve ID 11 20 20 0 CA MA ON 41 13 13 RE RY E 4 1 PH LO MG AR U MA TA CY BL ET LA 68 03 03 0 60 31 TO 81 SC Ac MO 38 -0 -3 0. TA 86 [place] ti TR 20 7- 1- 00 L 79 FE ve IG 00 20 20 0 CA R IN 80 13 13 RE NM E 1 CH 10 PH AE 0 AR L MG MA G CY TA BL ET BE 00 03 03 5 30 30 TO 81 BR Ac NZ 60 -1 -3 0. TA 96 AU ti TR 32 8- 1- 00 L 01 N ve OP 43 20 20 0 CA MA IN 32 13 13 RE RY E 1 ME PH LO S AR U 0. MA 5 CY MG TA B VA 68 03 03 0 30 30 TO 81 WE Ac AV 18 -2 -2 0. TA 97 IS ti 00 0- 0- 00 L 93 S ve TA 48 20 20 0 CA HE TI 80 13 13 RE LE N 2 N SO PH DI AR UM MA CY 80 MG TA B AM 59 02 03 2 30 30 TO 81 WE Ac LO 76 -2 -2 0. TA 74 IS ti DI 21 0- 0- 00 L 87 S ve PI 53 20 20 0 CA HE NE 00 13 13 RE LE 3 N BE PH SY AR LA MA TE CY 5 MG TA B GA 53 03 03 5 60 30 TO 81 BR Ac BA 74 -1 -1 0. TA 97 AU ti PE 60 8- 9- 00 L 09 N ve NT 10 20 20 0 CA MA IN 20 13 13 RE RY 5 30 PH LO 0 AR U MG MA CY CA PS UL E TO 68 03 03 5 90 30 TO 81 BR Ac PI 46 -1 -1 0. TA 96 AU ti RA 20 8- 8- 00 L 02 N ve MA 10 20 20 0 CA MA TE 81 13 13 RE RY 0 25 PH LO AR U MG MA CY TA BL ET QU 68 03 03 5 30 30 TO 81 BR Ac ET 18 -1 -1 0. TA 96 AU ti IA 00 8- 8- 00 L 00 N ve PI 44 20 20 0 CA MA NE 70 13 13 RE RY 1 FU PH LO MA AR U RA MA TE CY 10 0 MG TA B TR 00 03 03 0 30 30 TO 81 WE Ac IA 52 -1 -1 0. TA 92 IS ti MT 71 3- 4- 00 L 75 S ve ER 63 20 20 0 CA HE EN 20 13 13 RE LE E- 1 N HC PH TZ AR MA 37 CY .5 -2 5 MG CP FI 30 03 03 0 60 30 TO 81 WE Ac SH 76 -1 -1 0. TA 92 IS ti 80 3- 4- 00 L 76 S ve OI 03 20 20 0 CA HE L 30 13 13 RE LE 1, 4 N 00 PH 0 AR MG MA CY SO FT GE L BE 00 03 03 5 30 30 TO 81 BR Ac NZ 60 -0 -0 0. TA 83 AU ti TR 32 4- 4- 00 L 90 N ve OP 43 20 20 0 CA MA IN 32 13 13 RE RY E 1 ME PH LO S AR U 0. MA 5 CY MG TA B LO 00 03 03 0 60 30 TO 81 BR Ac RA 59 -0 -0 0. TA 83 AU ti ZE 10 4- 4- 00 L 93 N ve PA 24 20 20 0 CA MA M 01 13 13 RE RY 0. 0 5 PH LO MG AR U MA TA CY BL ET TO 68 03 03 5 60 30 TO 81 BR Ac PI 46 -0 -0 0. TA 83 AU ti RA 20 4- 4- 00 L 91 N ve MA 10 20 20 0 CA MA TE 81 13 13 RE RY 0 25 PH LO AR U MG MA CY TA BL ET RI 68 03 03 5 60 30 TO 81 BR Ac SP 38 -0 -0 0. TA 83 AU ti ER 20 4- 4- 00 L 89 N ve ID 11 20 20 0 CA MA ON 41 13 13 RE RY E 4 1 PH LO MG AR U MA TA CY BL ET TR 50 03 03 5 60 30 TO 81 BR Ac AZ 11 -0 -0 0. TA 83 AU ti OD 10 4- 4- 00 L 92 N ve ON 43 20 20 0 CA MA E 40 13 13 RE RY 10 3 0 PH LO MG AR U MA TA CY BL ET LA 68 03 03 5 60 30 TO 81 BR Ac MO 38 -0 -0 0. TA 83 AU ti TR 20 4- 4- 00 L 94 N ve IG 00 20 20 0 CA MA IN 80 13 13 RE RY E 1 10 PH LO 0 AR U MG MA CY TA BL ET FL 00 02 02 6 16 30 TO 81 SC Ac UT 05 -2 -2 0. TA 80 [place] ti IC 43 8- 8- 00 L 76 FE ve 27 20 20 0 CA R ON 09 13 13 RE NM E 9 CH VA PH AE OP AR L MA G 50 CY MC G SP RA Y VA 68 02 02 0 30 30 TO 81 WE Ac AV 18 -2 -2 0. TA 75 IS ti 00 1- 1- 00 L 12 S ve TA 48 20 20 0 CA HE TI 80 13 13 RE LE N 2 N SO PH DI AR UM MA CY 80 MG TA B AM 59 02 02 2 30 30 TO 81 WE Ac LO 76 -2 -2 0. TA 74 IS ti DI 21 0- 1- 00 L 87 S ve PI 53 20 20 0 CA HE NE 00 13 13 RE LE 3 N BE PH SY AR LA MA TE CY 5 MG TA B TR 00 01 02 1 30 30 TO 81 CO Ac IC 07 -0 -2 0. TA 37 RA ti OR 46 7- 0- 00 L 49 LE ve 12 20 20 0 CA S 14 39 13 13 RE EN 5 0 ED MG PH IN AR O TA MA BL CY ET LA 68 02 02 0 60 31 TO 81 WE Ac MO 38 -0 -0 0. TA 64 IS ti TR 20 8- 9- 00 L 75 S ve IG 00 20 20 0 CA HE IN 80 13 13 RE LE E 1 N 10 PH 0 AR MG MA CY TA BL ET TR 50 02 02 0 30 30 TO 81 WE Ac AZ 11 -0 -0 0. TA 64 IS ti OD 10 8- 9- 00 L 76 S ve ON 43 20 20 0 CA HE E 40 13 13 RE LE 10 3 N 0 PH MG AR MA TA CY BL ET FI 00 02 02 0 60 30 TO 81 WE Ac SH 90 -0 -0 0. TA 64 IS ti 44 8- 9- 00 L 79 S ve OI 04 20 20 0 CA HE L 36 13 13 RE LE 1, 0 N 00 PH 0 AR MG MA CY CA PS UL E SE 00 02 02 0 60 30 TO 81 WE Ac NN 60 -0 -0 0. TA 64 IS ti A- 30 8- 9- 00 L 80 S ve LA 28 20 20 0 CA HE X 22 13 13 RE LE 8. 1 N 6 PH MG AR MA TA CY BL ET PA 68 02 02 0 30 30 TO 81 WE Ac RO 38 -0 -0 0. TA 64 IS ti XE 20 8- 9- 00 L 77 S ve TI 00 20 20 0 CA HE NE 10 13 13 RE LE 5 N HC PH L AR 40 MA CY MG TA BL ET TR 00 02 02 0 30 30 TO 81 WE Ac IA 52 -0 -0 0. TA 64 IS ti MT 71 8- 9- 00 L 78 S ve ER 63 20 20 0 CA HE EN 20 13 13 RE LE E- 1 N HC PH TZ AR MA 37 CY .5 -2 5 MG CP LO 00 01 01 1 60 30 TO 81 CO Ac RA 59 -0 -3 0. TA 37 RA ti ZE 10 7- 0- 00 L 48 LE ve PA 24 20 20 0 CA S M 01 13 13 RE EN 0. 0 ED 5 PH IN MG AR O MA TA CY BL ET AM 00 01 01 0 30 10 TO 81 WE Ac OX 78 -1 -1 0. TA 43 IS ti IC 12 5- 5- 00 L 49 S ve IL 61 20 20 0 CA HE LI 30 13 13 RE LE N 5 N 50 PH 0 AR MG MA CY CA PS UL E GE 31 10 10 2 60 30 CV 71 ME Ac MF 72 -3 -3 .0 S 64 LV ti IB 20 1- 1- 00 PH 61 IL ve RO 22 20 20 AR LE ZI 50 11 11 MA L 5 CY DA 60 # NI 0 EL MG 06 34 TA 5 BL ET LE 00 10 10 0 60 30 CV 71 ME Ac VE 37 -3 -3 .0 S 63 LV ti TI 85 1- 1- 00 PH 80 IL ve RA 61 20 20 AR LE CE 77 11 11 MA TA 8 CY DA M # NI 75 EL 0 06 MG 34 5 TA BL ET ME 00 09 10 11 60 30 CV 70 ME Ac TO 37 -1 -2 .0 S 95 LV ti VA 80 5- 9- 00 PH 48 IL ve OL 03 20 20 AR LE OL 21 11 11 MA 0 CY DA TA # NI RT EL RA 06 TE 34 5 50 MG TA B OY 00 09 10 11 60 30 CV [address] 90 -1 -2 .0 S 95 LV ti ER 45 5- 9- 00 PH 49 IL ve 46 20 20 AR LE SH 08 11 11 MA EL 0 CY DA L # NI 50 EL 0- 06 34 T 5 D3 20 0 TB CV 50 09 10 11 30 30 CV 70 ME Ac S 42 -1 -2 .0 S 95 LV ti SE 87 5- 9- 00 PH 44 IL ve NN 07 20 20 AR LE A 92 11 11 MA LA 8 CY DA XA # NI TI EL VE 06 34 8. 5 6 MG TA B VA 00 09 10 11 30 30 CV 70 ME Ac AV 09 -1 -2 .0 S 95 LV ti 37 5- 9- 00 PH 47 IL ve TA 20 20 20 AR LE TI 29 11 11 MA N 8 CY DA SO # NI DI EL UM 06 34 40 5 MG TA B CE 00 10 10 0 20 10 KM 68 [place] Ac PH 09 -2 -2 .0 AR 58 RR ti AL 33 8- 9- 00 T 30 IS ve EX 14 20 20 PH 0 ON IN 70 11 11 AR 1 MA SC 50 CY OT 0 97 T MG 49 M # CA PS 97 UL 49 E PH 65 09 10 2 12 30 CV 70 ME Ac EN 16 -1 -2 0. S 95 LV ti YT 20 5- 9- 00 PH 13 IL ve OI 21 20 20 0 AR LE N 21 11 11 MA SO 1 CY DA D # NI EX EL T 06 10 34 0 5 MG CA P TO 31 10 10 3 60 30 CV 71 MO Ac PI 72 -1 -2 .0 S 46 GI ti RA 20 9- 0- 00 PH 88 LE ve MA 27 20 20 AR VS TE 96 11 11 MA KI 0 CY 50 # AL EK MG 06 SA 34 ND TA 5 R BL V ET GE 00 09 10 2 60 30 CV 70 HO Ac OD 04 -0 -1 .0 S 77 UC ti ON 93 6- 9- 00 PH 60 HI ve 99 20 20 AR N 80 06 11 11 MA TI 0 CY MO MG # TH Y CA 06 PS 34 UL 5 E TR 50 07 10 2 60 30 CV 70 HO Ac AZ 11 -2 -0 .0 S 15 UC ti OD 10 5- 2- 00 PH 05 HI ve ON 43 20 20 AR N E 40 11 11 MA TI 10 1 CY MO 0 # TH MG Y 06 TA 34 BL 5 ET PH 65 09 10 2 12 30 CV 70 ME Ac EN 16 -1 -0 0. S 95 LV ti YT 20 5- 2- 00 PH 13 IL ve OI 21 20 20 0 AR LE N 21 11 11 MA SO 1 CY DA D # NI EX EL T 06 10 34 0 5 MG CA P CV 50 09 10 11 30 30 CV 70 ME Ac S 42 -1 -0 .0 S 95 LV ti SE 87 5- 2- 00 PH 44 IL ve NN 07 20 20 AR LE A 92 11 11 MA LA 8 CY DA XA # NI TI EL VE 06 34 8. 5 6 MG TA B VA 00 09 10 11 30 30 CV 70 ME Ac AV 09 -1 -0 .0 S 95 LV ti 37 5- 2- 00 PH 47 IL ve TA 20 20 20 AR LE TI 29 11 11 MA N 8 CY DA SO # NI DI EL UM 06 34 40 5 MG TA B ME 00 09 10 11 60 30 CV 70 ME Ac TO 37 -1 -0 .0 S 95 LV ti VA 80 5- 2- 00 PH 48 IL ve OL 03 20 20 AR LE OL 21 11 11 MA 0 CY DA TA # NI RT EL RA 06 TE 34 5 50 MG TA B OY 00 09 10 11 60 30 CV [address] 90 -1 -0 .0 S 95 LV ti ER 45 5- 2- 00 PH 49 IL ve 46 20 20 AR LE SH 08 11 11 MA EL 0 CY DA L # NI 50 EL 0- 06 34 T 5 D3 20 0 TB GE 31 06 10 2 60 30 CV 70 ME Ac MF 72 -2 -0 .0 S 04 LV ti IB 20 3- 2- 00 PH 31 IL ve RO 22 20 20 AR LE ZI 50 11 11 MA L 5 CY DA 60 # NI 0 EL MG 06 34 TA 5 BL ET GA 68 07 10 2 90 30 CV 69 ME Ac BA 46 -1 -0 .0 S 96 LV ti PE 20 1- 2- 00 PH 82 IL ve NT 12 20 20 AR LE IN 70 11 11 MA 5 CY DA 80 # NI 0 EL MG 06 34 TA 5 BL ET LE 00 06 09 2 60 30 CV 70 ME Ac VE 37 -2 -2 .0 S 04 LV ti TI 85 3- 5- 00 PH 29 IL ve RA 61 20 20 AR LE CE 77 11 11 MA TA 8 CY DA M # NI 75 EL 0 06 MG 34 5 TA BL ET 00 09 09 0 24 4 CV 71 GR Ac 60 -2 -2 .0 S 01 AY ti 33 0- 0- 00 PH 32 , ve 88 20 20 AR II 82 11 11 MA I 1 CY TOM # HN I 06 34 5 00 09 09 0 24 4 CV 71 GR Ac 60 -2 -2 .0 S 01 AY ti 33 0- 0- 00 PH 32 ve 88 20 20 AR II 82 11 11 MA I 1 CY TOM # HN I 06 34 5 GE 00 09 09 2 60 30 CV 70 HO Ac OD 04 -0 -2 .0 S 77 UC ti ON 93 6- 0- 00 PH 60 HI ve 99 20 20 AR N 80 06 11 11 MA TI 0 CY MO MG # TH Y CA 06 PS 34 UL 5 E ZY 00 09 09 2 30 30 CV 70 HO Ac VA 00 -0 -1 .0 S 77 UC ti EX 24 6- 0- 00 PH 59 HI ve A 45 20 20 AR N ZY 38 11 11 MA TI DI 5 CY MO S # TH 5 Y MG 06 34 TA 5 BL ET TR 50 07 08 2 60 30 CV 70 HO Ac AZ 11 -2 -2 .0 S 15 UC ti OD 10 5- 8- 00 PH 05 HI ve ON 43 20 20 AR N E 40 11 11 MA TI 10 1 CY MO 0 # TH MG Y 06 TA 34 BL 5 ET CV 50 06 08 2 60 10 CV 70 ME Ac S 42 -2 -2 .0 S 04 LV ti AC 83 3- 8- 00 PH 30 IL ve ET 01 20 20 AR LE AM 42 11 11 MA IN 4 CY DA OP # NI HE EL N 06 32 34 5 5 MG TA B VA 00 07 08 1 30 30 CV 70 ME Ac AV 09 -2 -2 .0 S 14 LV ti 37 2- 8- 00 PH 07 IL ve TA 20 20 20 AR LE TI 29 11 11 MA N 8 CY DA SO # NI DI EL UM 06 34 40 5 MG TA B GA 68 07 08 2 90 30 CV 69 ME Ac BA 46 -1 -2 .0 S 96 LV ti PE 20 1- 8- 00 PH 82 IL ve NT 12 20 20 AR LE IN 70 11 11 MA 5 CY DA 80 # NI 0 EL MG 06 34 TA 5 BL ET GE 31 06 08 2 60 30 CV 70 ME Ac MF 72 -2 -2 .0 S 04 LV ti IB 20 3- 8- 00 PH 31 IL ve RO 22 20 20 AR LE ZI 50 11 11 MA L 5 CY DA 60 # NI 0 EL MG 06 34 TA 5 BL ET PH 65 07 08 1 12 30 CV 70 ME Ac EN 16 -2 -2 0. S 14 LV ti YT 20 2- 8- 00 PH 05 IL ve OI 21 20 20 0 AR LE N 21 11 11 MA SO 1 CY DA D # NI EX EL T 06 10 34 0 5 MG CA P LE 00 06 08 2 60 30 CV 70 ME Ac VE 37 -2 -2 .0 S 04 LV ti TI 85 3- 8- 00 PH 29 IL ve RA 61 20 20 AR LE CE 77 11 11 MA TA 8 CY DA M # NI 75 EL 0 06 MG 34 5 TA BL ET OY 00 06 08 1 60 30 CV [address] 90 -2 -2 .0 S 14 LV ti ER 45 9- 8- 00 PH 08 IL ve 46 20 20 AR LE SH 08 11 11 MA EL 0 CY DA L # NI 50 EL 0- 06 34 T 5 D3 20 0 TB CV 50 06 08 1 30 30 CV 70 ME Ac S 42 -2 -2 .0 S 14 LV ti SE 87 3- 8- 00 PH 06 IL ve NN 07 20 20 AR LE A 92 11 11 MA LA 8 CY DA XA # NI TI EL VE 06 34 8. 5 6 MG TA B ME 00 06 08 1 60 30 CV 70 ME Ac TO 37 -2 -2 .0 S 14 LV ti VA 80 3- 8- 00 PH 04 IL ve OL 03 20 20 AR LE OL 21 11 11 MA 0 CY DA TA # NI RT EL RA 06 TE 34 5 50 MG TA B ZY 00 08 08 0 30 30 CV 70 GH Ac VA 00 -2 -2 .0 S 59 AN ti EX 24 4- 4- 00 PH 49 TA ve A 45 20 20 AR ZY 38 11 11 MA RA DI 5 CY ME S # SH 5 MG 06 34 TA 5 BL ET GE 00 08 08 1 60 30 CV 70 GH Ac OD 04 -2 -2 .0 S 59 AN ti ON 93 4- 4 00 PH 50 TA ve 99 20 20 AR 80 06 11 11 MA RA 0 CY ME MG # SH CA 06 PS 34 UL 5 E CV 50 06 07 1 30 30 CV 70 ME Ac S 42 -2 -3 .0 S 14 LV ti SE 87 3- 0- 00 PH 06 IL ve NN 07 20 20 AR LE A 92 11 11 MA LA 8 CY DA XA # NI TI EL VE 06 34 8. 5 6 MG TA B VA 00 07 07 1 30 30 CV 70 ME Ac AV 09 -2 -3 .0 S 14 LV ti 37 2- 0- 00 PH 07 IL ve TA 20 20 20 AR LE TI 29 11 11 MA N 8 CY DA SO # NI DI EL UM 06 34 40 5 MG TA B TR 50 07 07 2 60 30 CV 70 HO Ac AZ 11 -2 -2 .0 S 15 UC ti OD 10 5- 5- 00 PH 05 HI ve ON 43 20 20 AR N E 40 11 11 MA TI 10 1 CY MO 0 # TH MG Y 06 TA 34 BL 5 ET FL 00 06 07 1 60 30 CV 70 ME Ac UP 37 -2 -2 .0 S 14 LV ti HE 86 3- 2- 00 PH 03 IL ve NA 09 20 20 AR LE ZI 70 11 11 MA NE 1 CY DA # NI 10 EL 06 MG 34 5 TA BL ET ME 00 06 07 1 60 30 CV 70 ME Ac TO 37 -2 -2 .0 S 14 LV ti VA 80 3- 2- 00 PH 04 IL ve OL 03 20 20 AR LE OL 21 11 11 MA 0 CY DA TA # NI RT EL RA 06 TE 34 5 50 MG TA B OY 00 06 07 1 60 30 CV [address] 90 -2 -2 .0 S 14 LV ti ER 45 9- 2- 00 PH 08 IL ve 46 20 20 AR LE SH 08 11 11 MA EL 0 CY DA L # NI 50 EL 0- 06 34 T 5 D3 20 0 TB PH 65 07 07 1 12 30 CV 70 ME Ac EN 16 -2 -2 0. S 14 LV ti YT 20 2- 2- 00 PH 05 IL ve OI 21 20 20 0 AR LE N 21 11 11 MA SO 1 CY DA D # NI EX EL T 06 10 34 0 5 MG CA P GE 31 06 07 2 60 30 CV 70 ME Ac MF 72 -2 -2 .0 S 04 LV ti IB 20 3- 0- 00 PH 31 IL ve RO 22 20 20 AR LE ZI 50 11 11 MA L 5 CY DA 60 # NI 0 EL MG 06 34 TA 5 BL ET BE 00 07 07 2 60 30 CV 69 ME Ac NZ 83 -1 -2 .0 S 98 LV ti TR 21 2- 0- 00 PH 60 IL ve OP 08 20 20 AR LE IN 20 11 11 MA E 0 CY DA ME # NI S EL 2 06 MG 34 5 TA BL ET LE 00 06 07 2 60 30 CV 70 ME Ac VE 37 -2 -1 .0 S 04 LV ti TI 85 3- 6- 00 PH 29 IL ve RA 61 20 20 AR LE CE 77 11 11 MA TA 8 CY DA M # NI 75 EL 0 06 MG 34 5 TA BL ET CV 50 06 07 2 60 10 CV 70 ME Ac S 42 -2 -1 .0 S 04 LV ti AC 83 3- 6- 00 PH 30 IL ve ET 01 20 20 AR LE AM 42 11 11 MA IN 4 CY DA OP # NI HE EL N 06 32 34 5 5 MG TA B TR 50 06 07 0 60 30 CV 69 ME Ac AZ 11 -1 -1 .0 S 93 LV ti OD 10 7- 2- 00 PH 89 IL ve ON 44 20 20 AR LE E 10 11 11 MA 15 1 CY DA 0 # NI MG EL 06 TA 34 BL 5 ET GA 68 07 07 2 90 30 CV 69 ME Ac BA 46 -1 -1 .0 S 96 LV ti PE 20 1- 1- 00 PH 82 IL ve NT 12 20 20 AR LE IN 70 11 11 MA 5 CY DA 80 # NI 0 EL MG 06 34 TA 5 BL ET CV 50 06 06 3 30 30 CV 69 No Ac S 42 -2 -2 .0 S 80 t ti SE 87 9- 9- 00 PH 13 Av ve NN 07 20 20 AR ai A 92 11 11 MA la LA 8 CY bl XA # e TI VE 06 34 8. 5 6 MG TA B VA 00 06 06 3 30 30 CV 69 No Ac AV 09 -2 -2 .0 S 80 t ti 37 9- 9- 00 PH 12 Av ve TA 20 20 20 AR ai TI 29 11 11 MA la N 8 CY bl SO # e DI UM 06 34 40 5 MG TA B HY 00 06 06 1 30 4 CV [address] 55 -1 -2 .0 S 65 t ti OX 50 7- 5- 00 PH 31 Av ve YZ 32 20 20 AR ai IN 30 11 11 MA la E 2 CY bl PA # e M 25 06 34 MG 5 CA P FL 00 06 06 3 60 30 CV 69 No Ac UP 37 -2 -2 .0 S 72 t ti HE 86 3- 4- 00 PH 75 Av ve NA 09 20 20 AR ai ZI 70 11 11 MA la NE 1 CY bl # e 10 06 MG 34 5 TA BL ET ME 00 06 06 3 60 30 CV 69 No Ac TO 37 -2 -2 .0 S 72 t ti VA 80 3- 3- 00 PH 76 Av ve OL 03 20 20 AR ai OL 21 11 11 MA la 0 CY bl TA # e RT RA 06 TE 34 5 50 MG TA B BE 00 06 06 3 60 30 CV 69 No Ac NZ 83 -2 -2 .0 S 72 t ti TR 21 3- 3- 00 PH 46 Av ve OP 08 20 20 AR ai IN 20 11 11 MA la E 0 CY bl ME # e S 2 06 MG 34 5 TA BL ET CV 50 06 06 3 60 10 CV 69 No Ac S 42 -2 -2 .0 S 72 t ti AC 83 3- 3- 00 PH 74 Av ve ET 01 20 20 AR ai AM 42 11 11 MA la IN 4 CY bl OP # e HE N 06 32 34 5 5 MG TA B GE 31 06 06 3 60 30 CV 69 No Ac MF 72 -2 -2 .0 S 72 t ti IB 20 3- 3- 00 PH 72 Av ve RO 22 20 20 AR ai ZI 50 11 11 MA la L 5 CY bl 60 # e 0 MG 06 34 TA 5 BL ET OY 00 06 06 3 60 30 CV [address] 90 -2 -2 .0 S 72 t ti ER 45 3- 3- 00 PH 70 Av ve 46 20 20 AR ai SH 08 11 11 MA la EL 0 CY bl L # e 50 0- 06 34 T 5 D3 20 0 TB PH 65 06 06 3 12 30 CV 69 No Ac EN 16 -2 -2 0. S 72 t ti YT 20 3- 3- 00 PH 48 Av ve OI 21 20 20 0 AR ai N 21 11 11 MA la SO 1 CY bl D # e EX T 06 10 34 0 5 MG CA P Immunization Name Date Rout CVX Reac Dose Comm Prov Is Faci e tion ent ider Refu lity Give sed n IIV4 10-0 158 [facility] No DHS/ 9-20 O CO VACC 15 DIST HEAL RICT TH SPLI T HLTH VIRU S DEPT 0.5 BALTAZAR ML DOS FOR IM USE INFL 11-[address] UENZ 1-20 RNE VANNA A 13 LEWI ABET VACC S H CHLOE PHYS IIV3 ICIA NS SPLI T VIRU S PRSR V FREE ID Vital Signs 05-23-2013 18:37 Name Value Interpretat Reference Comment ion Range Body 97.7 [degF] Temperature BP 83 mm[Hg] Diastolic BP Systolic 140 mm[Hg] Heart 76 /min Rate/Pulse O2% 98 % Respiratory 17 /min Rate 05-23-2013 17:21 Name Value Interpretat Reference Comment ion Range BP 62 mm[Hg] Diastolic BP Systolic 122 mm[Hg] Heart 85 /min Rate/Pulse O2% 93 % Respiratory 20 /min Rate 02-21-2013 19:45 Name Value Interpretat Reference Comment ion Range BP 77 mm[Hg] Diastolic BP Systolic 155 mm[Hg] Heart 85 /min Rate/Pulse O2% 98 % Respiratory 18 /min Rate 02-21-2013 13:30 Name Value Interpretat Reference Comment ion Range BP 72 mm[Hg] Diastolic BP Systolic 116 mm[Hg] Heart 80 /min Rate/Pulse O2% 99 % Respiratory 20 /min Rate 02-14-2013 19:11 Name Value Interpretat Reference Comment ion Range BP 73 mm[Hg] Diastolic BP Systolic 129 mm[Hg] Heart 90 /min Rate/Pulse O2% 96 % Respiratory 20 /min Rate 02-14-2013 17:37 Name Value Interpretat Reference Comment ion Range BP 46 mm[Hg] Diastolic BP Systolic 133 mm[Hg] Heart 88 /min Rate/Pulse O2% 95 % Respiratory 20 /min Rate Results Labs Lab Lab Date Result Refere Interp Status Commen Order Detail nces retati t Range on Phenytoin SerPl-mCnc (06-04-2017 12:19) Phenyto < 0.8 10.0-20 complet in 017 ug/mL .0 ed SerPl-m 12:19 Cnc COMPREHENSIVE METABOLIC PANEL (02-14-2013 17:35) Glucose 161 74-106 complet 013 mg/dL ed Bld-mCn 17:35 c BUN 14 7-18 complet Bld-mCn 013 mg/dL ed c 17:35 Creat 05-27-2 0.9 0.6-1.0 complet SerPl-m 013 mg/dL ed Cnc 17:35 ESTIMAT 127 50-200 complet ED 013 ML/MIN ed CREATIN 17:35 INE CLEARAN CE GFR 67 59- complet (ESTIMA 013 ML/MIN ed JERI) 17:35 Sodium 139 136-145 complet SerPl-s 013 mmoL/L ed Cnc 17:35 Potassi 2 3.3 3.5-5.1 complet um 013 mmoL/L ed SerPl-s 17:35 Cnc Chlorid 102 98-107 complet e 013 mmoL/L ed SerPl-s 17:35 Cnc CO2 28 21.0-32 complet SerPl-s 013 mmoL/L .0 ed Cnc 17:35 Calcium 02-14- 8.3 8.5-10. complet 013 mg/dL 1 ed SerPl-m 17:35 Cnc Prot 7.0 6.4-8.2 complet SerPl-m 013 gm/dL ed Cnc 17:35 Albumin 02-14-2 3.8 3.4-5.0 complet 013 gm/dL ed SerPl-m 17:35 Cnc Globuli 2 3.2 1.3-3.2 complet n 013 gm/dL ed Ser-mCn 17:35 c Albumin 02-14-2 1.2 UNK 1.1-1.8 complet /Glob 013 ed SerPl-m 17:35 Rto Bilirub 0.1 0.2-1.0 complet 013 mg/dL ed SerPl-m 17:35 Cnc AST 02-14-2 17 U/L 15-37 complet SerPl-c 013 ed Cnc 17:35 ALT 02-14-2 48 U/L 30-65 complet SerPl-c 013 ed Cnc 17:35 ALP 02-14-2 84 U/L 50-136 complet SerPl-c 013 ed Cnc 17:35 CBC with AUTO DIFF (02-14-2013 17:35) WBC # -27-2 9.7 4.8-10. complet Bld 013 K/MM3 8 ed Auto 17:35 RBC # 02-14-2 3.89 4.2-5.4 complet Bld 013 M/mm3 ed Auto 17:35 Hgb 05-27-2 12.0 12.2-16 complet Bld-mCn 013 g/dL .2 ed c 17:35 Hct Fr 02-14-2 35.2 % 37.0-47 complet Bld 013 .0 ed 17:35 MCV RBC 02-14-2 90.3 fl 82.2-97 complet 013 .8 ed 17:35 MCH RBC 02-14-2 30.9 pg 27-31.2 complet Qn 013 ed Auto 17:35 MEAN --2 34.2 31.8-35 complet CORPUSC 013 g/dl .4 ed ULAR 17:35 HGB CONC RDW RBC 02-14-2 13.0 % 11.5-17 complet Auto 013 .5 ed 17:35 Platele 05-27-2 270 142-424 complet t Bld 013 K/mm3 ed Ql 17:35 Manual MEAN 02-14-2 7.6 fl 7.4-10. complet PLATELE 013 4 ed T 17:35 VOLUME Granulo -27-2 57.9 % 37.0-80 complet cytes 013 .0 ed Fr Bld 17:35 Auto LYMPH % 05-27-2 32.4 % 10-50.0 complet 013 ed 17:35 Monocyt 05-27-2 4.4 % 1.7-9.3 complet es Fr 013 ed Bld 17:35 Auto Eosinop 05-27-2 4.8 % 0.1-12. complet hil Fr 013 0 ed Bld 17:35 Auto Basophi 05-27-2 0.5 % 0.1-2.0 complet ls Fr 013 ed Bld 17:35 Auto Granulo 05-27-2 5.6 1.8-7.8 complet cytes # 013 K/mm3 ed Bld 17:35 Auto Lymphoc 05-27-2 3.1 0.7-4.5 complet ytes Fr 013 K/mm3 ed Bld 17:35 Auto Monocyt 05-27-2 0.4 0.1-1.0 complet es # 013 K/mm3 ed Bld 17:35 Auto Eosinop 05-27-2 0.5 0.0-0.4 complet hil # 013 K/mm3 ed Bld 17:35 Auto Basophi 05-27-2 0.1 0-0.2 complet ls # 013 K/MM3 ed Bld 17:35 Auto URINALYSIS/COMPLETE (02-14-2013 17:35) URINE 05-27-2 YELLOW YELLOW complet COLOR 013 ed 17:35 URINE 05-27-2 SL CLEAR complet APPEARA 013 CLOUDY ed NCE 17:35 URINE 05-27-2 NEGATIV NEG complet GLUCOSE 013 E ed - 17:35 DIPSTIC K URINE 05-27-2 NEGATIV NEG complet BILIRUB 013 E ed IN - 17:35 DIPSTIC K URINE 05-27-2 NEGATIV NEG complet KETONE 013 E mg/dL ed 17:35 URINE 05-27-2 1.015 1.005-1 complet SPECIFI 013 UNK .030 ed C 17:35 GRAVITY URINE 05-27-2 NEGATIV NEG complet BLOOD 013 E ed 17:35 URINE 05-27-2 6.0 UNK 5.0-8.5 complet PH 013 ed 17:35 URINE 05-27-2 NEGATIV NEG complet PROTEIN 013 E mg/dL ed - 17:35 DIPSTIC K URINE 05-27-2 0.2 NEG complet UROBILI 013 E.U./dL ed NOGEN - 17:35 DIPSTIC K URINE 05-27-2 NEGATIV NEG complet NITRATE 013 E ed - 17:35 DIPSTIC K URINE 05-27-2 NEGATIV NEG complet LEUK 013 E ed ESTERAS 17:35 E URINE 05-27-2 OCC O complet WBC 013 wbc/hpf ed 17:35 URINE 05-27-2 5-10 0-5 complet SQUAMOU 013 #/hpf ed S CELLS 17:35 URINE 05-27-2 2+ O complet BACTERI 013 ed A 17:35 Procedures Procedure DOS Code Location Performer Comment HOME CARE S5108 [facility] [address] [place] [address] ELDER ELDER CARE CARE CARE CLIENT PER 15 MIN HOME CARE S5108 [facility] [address] [place] [address] ELDER ELDER CARE CARE CARE CLIENT PER 15 MIN HOME CARE S5108 [facility] [address] [place] [address] ELDER ELDER CARE CARE CARE CLIENT PER 15 MIN DAY CARE S[address] ADULT; ELDER ELDER PER 15 CARE CARE MINUTES DAY CARE S5100 [facility] ADULT; ELDER ELDER PER 15 CARE CARE MINUTES HOME CARE S5108 [facility] ELDER ELDER CARE CARE CARE CLIENT PER 15 MIN HOME CARE S5108 [facility] ELDER ELDER CARE CARE CARE CLIENT PER 15 MIN DAY CARE S5100 [facility] 7 [facility] ADULT[facility] ELDER ELDER PER 15 CARE CARE MINUTES HOME CARE S5108 [facility] ELDER ELDER CARE CARE CARE CLIENT PER 15 MIN HOME CARE S5108 [facility] ELDER ELDER CARE CARE CARE CLIENT PER 15 MIN DAY CARE S5100 [facility] 7 [facility] ADULT[facility] ELDER ELDER PER 15 CARE CARE MINUTES HOME CARE S5108 [facility] ELDER ELDER CARE CARE CARE CLIENT PER 15 MIN HOME CARE S5108 [facility] ELDER ELDER CARE CARE CARE CLIENT PER 15 MIN DAY CARE S5100 [facility] 7 [facility] ADULT; ELDER ELDER PER 15 CARE CARE MINUTES DAY CARE S5100 [facility] 7 [facility] ADULT; ELDER ELDER PER 15 CARE CARE MINUTES HOME CARE S5108 [facility] ELDER ELDER CARE CARE CARE CLIENT PER 15 MIN HOME CARE S5108 [facility] ELDER ELDER CARE CARE CARE CLIENT PER 15 MIN HOME CARE S5108 [facility] ELDER ELDER CARE CARE CARE CLIENT PER 15 MIN ECG [id number] DK BOYKIN ROUTINE 7 MEDICAL ECG SERV W/LEAST FOUNDATIO 12 LDS N I&R ONLY RADIOLOGI [id number] DK [place] 7 MEDICAL EXAMINATI SERV ON CHEST FOUNDATIO SINGLE [facility] HOME CARE S5108 [facility] ELDER ELDER CARE CARE CARE CLIENT PER 15 MIN HOME CARE S5108 [facility] ELDER ELDER CARE CARE CARE CLIENT PER 15 MIN DAY CARE S5100 [facility] 7 [facility] ADULT; ELDER ELDER PER 15 CARE CARE MINUTES GROUND A0425 [facility] MILEAGE 7 AMBULANCE AMBULANCE PER SERVICE SERVICE STATUTE MILE AMBULANCE [id number] [facility] SERVICE 7 AMBULANCE AMBULANCE BLS SERVICE SERVICE EMERGENCY TRANSPORT DAY CARE S5100 [facility] 7 [facility] ADULT; ELDER ELDER PER 15 CARE CARE MINUTES HOME CARE S5108 [facility] ELDER ELDER CARE CARE CARE CLIENT PER 15 MIN HOME CARE S5108 [facility] ELDER ELDER CARE CARE CARE CLIENT PER 15 MIN HOME CARE S5108 [facility] ELDER ELDER CARE CARE CARE CLIENT PER 15 MIN INITIAL 87612 [facility] 7 PHYSICIAN A CARE/DAY S GROUP 50 MINUTES DAY CARE S5100 [facility] 7 [facility] ADULT; ELDER ELDER PER 15 CARE CARE MINUTES HOME CARE S5108 [facility] ELDER ELDER CARE CARE CARE CLIENT PER 15 MIN AMBULANCE A0429 [facility] SERVICE 7 AMBULANCE AMBULANCE BLS SERVICE SERVICE EMERGENCY TRANSPORT GROUND A0425 [facility] MILEAGE 7 AMBULANCE AMBULANCE PER SERVICE SERVICE STATUTE MILE AMBULANCE A0429 [facility] SERVICE 7 AMBULANCE AMBULANCE BLS SERVICE SERVICE EMERGENCY TRANSPORT GROUND A0425 [facility] MILEAGE 7 AMBULANCE AMBULANCE PER SERVICE SERVICE STATUTE MILE HOME CARE S5108 [facility] 7 [facility] ELDER ELDER CARE CARE CARE CLIENT PER 15 MIN DAY CARE S5100 [facility] 7 [facility] ADULT; ELDER ELDER PER 15 CARE CARE MINUTES RADIOLOGI [id number] [place] 7 MEDICAL EXAMINATI IMAGING ON CHEST ASS [place] FRONTAL ECG [id number] KE TILLMAN JR ROUTINE 7 [facility] [facility] W/LEAST P 12 LDS I&R ONLY HOME CARE S5108 KE DEMPSEY TRAINING 7 [facility] ELDER ELDER CARE CARE CARE CLIENT PER 15 MIN HOME CARE S5108 KE DEMPSEY TRAINING 7 [facility] ELDER ELDER CARE CARE CARE CLIENT PER 15 MIN HOME S5170 KE DEMPSEY DELIV 7 CO. ADULT CO. ADULT MEALS DAY DAY INCLUDING ELDER ELDER PREPARATI ON; PER MEAL DAY CARE S5100 [address]PSEY [address] ADULT; ELDER ELDER PER 15 CARE CARE MINUTES DAY CARE S5100 KE DEMPSEY [address] ADULT; ELDER ELDER PER 15 CARE CARE MINUTES HOME S5170 KE GONZALEZ 7 CO. ADULT CO. ADULT MEALS DAY DAY INCLUDING ELDER ELDER PREPARATI ON; PER MEAL HOME CARE S5108 KE DEMPSEY [address] ELDER ELDER CARE CARE CARE CLIENT PER 15 MIN HOME CARE S5108 KE DEMPSEY [address] ELDER ELDER CARE CARE CARE CLIENT PER 15 MIN HOME S5170 KE GONZALEZ 7 CO. ADULT CO. ADULT MEALS DAY INCLUDING ELDER ELDER PREPARATI ON; PER MEAL DAY CARE S5100 KE DEMPSEY [address] ADULT; ELDER ELDER PER 15 CARE CARE MINUTES DAY CARE S5100 KE DEMPSEY [address] ADULT; ELDER ELDER PER 15 CARE CARE MINUTES HOME S5170 KE GONZALEZ 7 CO. ADULT CO. ADULT MEALS DAY INCLUDING ELDER ELDER PREPARATI ON; PER MEAL HOME CARE S5108 KE DEMPSEY [address] ELDER ELDER CARE CARE CARE CLIENT PER 15 MIN HOME CARE S5108 KE DEMPSEY [address] ELDER ELDER CARE CARE CARE CLIENT PER 15 MIN HOME S5170 KE GONZALEZ 7 CO. ADULT CO. ADULT MEALS DAY DAY INCLUDING ELDER ELDER PREPARATI ON; PER MEAL HOME S5170 KE GONZALEZ 7 CO. ADULT CO. ADULT MEALS DAY DAY INCLUDING ELDER ELDER PREPARATI ON; PER MEAL HOME CARE S5108 KE DEMPSEY [address] ELDER ELDER CARE CARE CARE CLIENT PER 15 MIN DAY CARE S5100 KEBRETT DEMPSEY [address] ADULT; ELDER ELDER PER 15 CARE CARE MINUTES BLOOD 76687 KE ESTRELLA COUNT 7 [facility] COMPLETE INC AUTO&[place] [address] KE DEMPSEY TROPONIN [address] [facility] QUANTITAT INC INC SWAPNIL CREATINE 50688 KE DEMPSEY KINASE 7 [facility] TOTAL INC INC URNLS DIP 70265 KE DEMPSEY 7 [facility] STICK/TAB INC INC LET REAGENT AUTO MICROSCOP Y HOME CARE S5108 KE DENT 7 [facility] ELDER ELDER CARE CARE CARE CLIENT PER 15 MIN HOME S5170 KE GONZALEZ 7 CO. ADULT CO. ADULT MEALS DAY DAY INCLUDING ELDER ELDER PREPARATI ON; PER MEAL GROUND A0425 [facility] 7 AMBULANCE AMBULANCE PER SERVICE SERVICE STATUTE MILE RADEX HIP 85289 KE DEMPSEY 7 [facility] UNILATERA INC INC L WITH PELVIS 2-3 VIEWS ECG 08498 KE CHRISTIE ROUTINE 7 [facility] W/LEAST P 12 LDS I&R ONLY ECG 18945 KE DEMPSEY ROUTINE 7 [facility] ECG INC INC W/LEAST 12 LDS TRCG ONLY W/O I&R AMB A0427 [facility] SERVICE 7 AMBULANCE AMBULANCE ALS SERVICE SERVICE EMERGENCY TRANSPORT LEVEL 1 COMPREHEN 73177 KE DEMPSEY SIVE 7 [facility] METABOLIC INC INC PANEL CREATINE 32956 KE DEMPSEY KINASE MB 7 [facility] FRACTION INC INC ONLY HOME S5170 KE GONZALEZ 7 CO. ADULT CO. ADULT MEALS DAY DAY INCLUDING ELDER ELDER PREPARATI ON; PER MEAL HOME CARE S5108 KE DEMPSEY TRAINING [address] [place] [address] ELDER ELDER CARE CARE CARE CLIENT PER 15 MIN HOME CARE S5108 KE DEMPSEY TRAINING [address] [place] [address] ELDER ELDER CARE CARE CARE CLIENT PER 15 MIN HOME S5170 KE GONZALEZ 7 CO. ADULT CO. ADULT MEALS DAY DAY INCLUDING ELDER ELDER PREPARATI ON; PER MEAL DAY CARE S5100 KE DEMPSEY SERVICES [address] [place] [address] ADULT; ELDER ELDER PER 15 CARE CARE MINUTES HOME S5170 KE GONZALEZ 7 CO. ADULT CO. ADULT MEALS DAY DAY INCLUDING ELDER ELDER PREPARATI ON; PER MEAL HOME CARE S5108 KE DEMPSEY TRAINING 7 [facility] ELDER ELDER CARE CARE CARE CLIENT PER 15 MIN HOME CARE S5108 KE DEMPSEY TRAINING [address] [place] [address] ELDER ELDER CARE CARE CARE CLIENT PER 15 MIN HOME S5170 KE GONZALEZ 7 CO. ADULT CO. ADULT MEALS DAY DAY INCLUDING ELDER ELDER PREPARATI ON; PER MEAL DAY CARE S5100 KE DEMPSEY [address] ADULT; ELDER ELDER PER 15 CARE CARE MINUTES DAY CARE S5100 KE DEMPSEY [address] ADULT; ELDER ELDER PER 15 CARE CARE MINUTES HOME S5170 KE GONZALEZ 7 CO. ADULT CO. ADULT MEALS DAY DAY INCLUDING ELDER ELDER PREPARATI ON; PER MEAL HOME CARE S5108 KE DEMPSEY TRAINING [address] [place] [address] ELDER ELDER CARE CARE CARE CLIENT PER 15 MIN HOME CARE S5108 KE DEMPSEY TRAINING [address] [place] [address] ELDER ELDER CARE CARE CARE CLIENT PER 15 MIN HOME S5170 KE GONZALEZ 7 CO. ADULT CO. ADULT MEALS DAY DAY INCLUDING ELDER ELDER PREPARATI ON; PER MEAL DAY CARE S5100 KE DEMPSEY [address] ADULT; ELDER ELDER PER 15 CARE CARE MINUTES DAY CARE S5100 KE DEMPSEY [address] ADULT; ELDER ELDER PER 15 CARE CARE MINUTES HOME S5170 KE GONZALEZ 7 CO. ADULT CO. ADULT MEALS DAY DAY INCLUDING ELDER ELDER PREPARATI ON; PER MEAL HOME CARE S5108 KE DEMPSEY TRAINING [address] [place] [address] ELDER ELDER CARE CARE CARE CLIENT PER 15 MIN HOME CARE S5108 KE DEMPSEY TRAINING [address] [place] [address] ELDER ELDER CARE CARE CARE CLIENT PER 15 MIN HOME S5170 KE GONZALEZ 7 CO. ADULT CO. ADULT MEALS DAY DAY INCLUDING ELDER ELDER PREPARATI ON; PER MEAL DAY CARE S[address] ADULT; ELDER ELDER PER 15 CARE CARE MINUTES DAY CARE S5100 KE KE [address] ADULT; ELDER ELDER PER 15 CARE CARE MINUTES HOME S5170 KE GONZALEZ 7 CO. ADULT CO. ADULT MEALS DAY DAY INCLUDING ELDER ELDER PREPARATI ON; PER MEAL HOME CARE S5108 KE DEMPSEY TRAINING 7 [facility] HOME ELDER ELDER CARE CARE CARE CLIENT PER 15 MIN HOME CARE S5108 KE DEMPSEY TRAINING [address] [place] [address] ELDER ELDER CARE CARE CARE CLIENT PER 15 MIN HOME S5170 KE GONZALEZ 7 CO. ADULT CO. ADULT MEALS DAY DAY INCLUDING ELDER ELDER PREPARATI ON; PER MEAL DAY CARE S5100 KE DEMPSEY SERVICES [address] [place] [address] ADULT; ELDER ELDER PER 15 CARE CARE MINUTES DAY CARE S5100 KE DEMPSEY [address] ADULT; ELDER ELDER PER 15 CARE CARE MINUTES HOME CARE S5108 KE DEMPSEY TRAINING [address] [place] [address] ELDER ELDER CARE CARE CARE CLIENT PER 15 MIN HOME CARE S5108 KE DEMPSEY TRAINING [address] [place] [address] ELDER ELDER CARE CARE CARE CLIENT PER 15 MIN HOME S5170 KE GONZALEZ 7 CO. ADULT CO. ADULT MEALS DAY DAY INCLUDING ELDER ELDER PREPARATI ON; PER MEAL DAY CARE S5100 KE DEMPSEY [address] ADULT; ELDER ELDER PER 15 CARE CARE MINUTES RADIOLOGI 93550 [facility] C EXAM 7 MEDICAL CHEST 2 IMAGING VIEWS ASS FRONTAL&L ATERAL RADIOLOGI 55611 [place] 7 MEDICAL EXAMINATI IMAGING [place] [address] [facility] HEAD/BRAI 7 MEDICAL N W/O IMAGING CONTRAST ASS MATERIAL RADEX 22334 [facility] SHOULDER 7 MEDICAL COMPLETE IMAGING MINIMUM 2 ASS VIEWS RADIOLOGI 50739 [facility] C EXAM 7 PHYSICIAN CHEST 2 S, PLLC VIEWS FRONTAL&L ATERAL RADEX HIP 51877 [facility] 7 MEDICAL UNILATERA IMAGING L WITH ASS PELVIS 2-3 VIEWS AMBULANCE A0429 [facility] SERVICE 7 AMBULANCE AMBULANCE BLS SERVICE SERVICE EMERGENCY TRANSPORT GROUND A0425 [facility] 7 AMBULANCE AMBULANCE PER SERVICE SERVICE STATUTE MILE HOME S5170 KE GONZALEZ 7 CO. ADULT CO. ADULT MEALS DAY DAY INCLUDING ELDER ELDER PREPARATI ON; PER MEAL HOME CARE S5108 KE DENT [address] [place] [address] ELDER ELDER CARE CARE CARE CLIENT PER 15 MIN HOME CARE S5108 KE DEMPSEY TRAINING [address] [place] [address] ELDER ELDER CARE CARE CARE CLIENT PER 15 MIN HOME S5170 KE GONZALEZ 7 CO. ADULT CO. ADULT MEALS DAY DAY INCLUDING ELDER ELDER PREPARATI ON; PER MEAL DAY CARE S5100 KE DEMPSEY [address] ADULT; ELDER ELDER PER 15 CARE CARE MINUTES HOME S5170 KE GONZALEZ 7 CO. ADULT CO. ADULT MEALS DAY DAY INCLUDING ELDER ELDER PREPARATI ON; PER MEAL HOME CARE S5108 KE DEMPSEY TRAINING [address] [place] [address] ELDER ELDER CARE CARE CARE CLIENT PER 15 MIN HOME CARE S5108 KE DEMPSEY TRAINING [address] [place] [address] ELDER ELDER CARE CARE CARE CLIENT PER 15 MIN HOME S5170 KE GONZALEZ 7 CO. ADULT CO. ADULT MEALS DAY DAY INCLUDING ELDER ELDER PREPARATI ON; PER MEAL DAY CARE S5100 KE DEMPSEY [address] ADULT; ELDER ELDER PER 15 CARE CARE MINUTES DAY CARE S5100 KE DEMPSEY [address] ADULT; ELDER ELDER PER 15 CARE CARE MINUTES SCREENING G0202 [facility] 7 MEDICAL MAMMOGRAP IMAGING HY JUYL ASS INCL CAD WHEN PERFORMD HOME S5170 KE GONZALEZ 7 CO. ADULT CO. ADULT MEALS DAY DAY INCLUDING ELDER ELDER PREPARATI ON; PER MEAL HOME CARE S5108 KE DEMPSEY [address] ELDER ELDER CARE CARE CARE CLIENT PER 15 MIN SCREENING 24937 KE DEMPSEY 7 [facility] MAMMOGRAP INC INC HY BI 2-VIEW BREAST INC CAD HOME CARE S5108 KE DEMPSEY [address] ELDER ELDER CARE CARE CARE CLIENT PER 15 MIN HOME S5170 KE GONZALEZ 7 CO. ADULT CO. ADULT MEALS DAY DAY INCLUDING ELDER ELDER PREPARATI ON; PER MEAL DAY CARE S5100 KE DEMPSEY [address] ADULT; ELDER ELDER PER 15 CARE CARE MINUTES HOME S5170 KE GONZALEZ 7 CO. ADULT CO. ADULT MEALS DAY DAY INCLUDING ELDER ELDER PREPARATI ON; PER MEAL HOME CARE S5108 KE DEMPSEY [address] ELDER ELDER CARE CARE CARE CLIENT PER 15 MIN DAY CARE S5100 KE KE [address] ADULT; ELDER ELDER PER 15 CARE CARE MINUTES HOME CARE S5108 KE DEMPSEY [address] ELDER ELDER CARE CARE CARE CLIENT PER 15 MIN HOME S5170 KE GONZALEZ 7 CO. ADULT CO. ADULT MEALS DAY DAY INCLUDING ELDER ELDER PREPARATI ON; PER MEAL DAY CARE S5100 [address] ADULT; ELDER ELDER PER 15 CARE CARE MINUTES NONEMERG A0120 [facility]: 7 MINI-BUS TRANSPORT TRANSPORT MTN ATION SER ATION SER AREA/OT SYS DAY CARE S5100 [facility] [address] ADULT; ELDER ELDER PER 15 CARE CARE MINUTES HOME S5170 KE GONZALEZ 7 CO. ADULT CO. ADULT MEALS DAY DAY INCLUDING ELDER ELDER PREPARATI ON; PER MEAL HOME CARE S5108 KE DEMPSEY [address] ELDER ELDER CARE CARE CARE CLIENT PER 15 MIN HOME CARE S5108 KE DEMPSEY [address] ELDER ELDER CARE CARE CARE CLIENT PER 15 MIN HOME S5170 KE GONZALEZ 7 CO. ADULT CO. ADULT MEALS DAY DAY INCLUDING ELDER ELDER PREPARATI ON; PER MEAL DAY CARE S5100 [facility] [address] ADULT; ELDER ELDER PER 15 CARE CARE MINUTES DAY CARE S5100 [facility] [address] ADULT; ELDER ELDER PER 15 CARE CARE MINUTES HOME S5170 KE GONZALEZ 7 CO. ADULT CO. ADULT MEALS DAY DAY INCLUDING ELDER ELDER PREPARATI ON; PER MEAL HOME CARE S5108 KE DEMPSEY [address] ELDER ELDER CARE CARE CARE CLIENT PER 15 MIN HOME S5170 KE GONZALEZ 7 CO. ADULT CO. ADULT MEALS DAY DAY INCLUDING ELDER ELDER PREPARATI ON; PER MEAL HOME CARE S5108 KE DEMPSEY TRAINING [address] [place] [address] ELDER ELDER CARE CARE CARE CLIENT PER 15 MIN HOME S5170 KE GONZALEZ 7 CO. ADULT CO. ADULT MEALS DAY DAY INCLUDING ELDER ELDER PREPARATI ON; PER MEAL HOME CARE S5108 KE DEMPSEY TRAINING [address] [place] [address] ELDER ELDER CARE CARE CARE CLIENT PER 15 MIN DAY CARE S5100 KE DEMPSE[facility] SERVICES [address] [place] [address] ADULT; ELDER ELDER PER 15 CARE CARE MINUTES DAY CARE S5100 KE DEMP[facility] SERVICES [address] [place] [address] ADULT; ELDER ELDER PER 15 CARE CARE MINUTES HOME CARE S5108 KE DEMPSEY TRAINING [address] [place] [address] ELDER ELDER CARE CARE CARE CLIENT PER 15 MIN HOME S5170 KE GONZALEZ 7 CO. ADULT CO. ADULT MEALS DAY DAY INCLUDING ELDER ELDER PREPARATI ON; PER MEAL HOME S5170 KE GONZALEZ 7 CO. ADULT CO. ADULT MEALS DAY DAY INCLUDING ELDER ELDER PREPARATI ON; PER MEAL HOME CARE S5108 KE DEMPSEY TRAINING [address] [place] [address] ELDER ELDER CARE CARE CARE CLIENT PER 15 MIN DAY CARE S5100 KE DEMPSE[facility] SERVICES [address] [place] [address] ADULT; ELDER ELDER PER 15 CARE CARE MINUTES DAY CARE S5100 KE DEMP[facility] SERVICES [address] [place] [address] ADULT; ELDER ELDER PER 15 CARE CARE MINUTES HOME CARE S5108 KE DEMPSEY TRAINING [address] [place] [address] ELDER ELDER CARE CARE CARE CLIENT PER 15 MIN HOME CARE S5108 KE DEMPSEY TRAINING [address] [place] [address] ELDER ELDER CARE CARE CARE CLIENT PER 15 MIN DAY CARE S5100 KE DEMPSE[facility] SERVICES [address] [place] [address] ADULT; ELDER ELDER PER 15 CARE CARE MINUTES DAY CARE S5100 KE DEMP[facility] SERVICES [address] [place] [address] ADULT; ELDER ELDER PER 15 CARE CARE MINUTES HOME CARE S5108 KE DEMPSEY TRAINING [address] [place] [address] ELDER ELDER CARE CARE CARE CLIENT PER 15 MIN HOME CARE S5108 KE DEMPSEY TRAINING [address] [place] [address] ELDER ELDER CARE CARE CARE CLIENT PER 15 MIN DAY CARE S5100 KE DEMP[facility] SERVICES [address] [place] [address] ADULT; ELDER ELDER PER 15 CARE CARE MINUTES DAY CARE S5100 KE DEMP[facility] SERVICES [address] [place] [address] ADULT; ELDER ELDER PER 15 CARE CARE MINUTES HOME CARE S5108 KE DEMPSEY TRAINING 7 [facility] ELDER ELDER CARE CARE CARE CLIENT PER 15 MIN HOME CARE S5108 KE DEMPSEY TRAINING 7 [facility] ELDER ELDER CARE CARE CARE CLIENT PER 15 MIN DAY CARE S5100 KE DEMPSE[facility] SERVICES [address] [place] [address] ADULT; ELDER ELDER PER 15 CARE CARE MINUTES DAY CARE S5100 KE DEMP[facility] SERVICES [address] [place] [address] ADULT; ELDER ELDER PER 15 CARE CARE MINUTES HOME CARE S5108 KE DEMPSEY TRAINING 7 [facility] ELDER ELDER CARE CARE CARE CLIENT PER 15 MIN HOME CARE S5108 KE DEMPSEY TRAINING 7 [facility] ELDER ELDER CARE CARE CARE CLIENT PER 15 MIN DAY CARE S5100 KE DEMPSE[facility] SERVICES [address] [place] [address] ADULT; ELDER ELDER PER 15 CARE CARE MINUTES DAY CARE S5100 KE DEMP[facility] SERVICES [address] [place] [address] ADULT; ELDER ELDER PER 15 CARE CARE MINUTES HOME CARE S5108 KE DEMPSEY TRAINING 7 [facility] ELDER ELDER CARE CARE CARE CLIENT PER 15 MIN HOME CARE S5108 KE DEMPSEY TRAINING 7 [facility] ELDER ELDER CARE CARE CARE CLIENT PER 15 MIN DAY CARE S5100 KE DEMPSE[facility] SERVICES [address] [place] [address] ADULT; ELDER ELDER PER 15 CARE CARE MINUTES DAY CARE S5100 KE [facility] SERVICES [address] [place] [address] ADULT; ELDER ELDER PER 15 CARE CARE MINUTES HOME CARE S5108 KE DEMPSEY TRAINING 7 [facility] ELDER ELDER CARE CARE CARE CLIENT PER 15 MIN HOME CARE S5108 KE DEMPSEY TRAINING 7 [facility] ELDER ELDER CARE CARE CARE CLIENT PER 15 MIN DAY CARE S5100 KE DEMP[facility] SERVICES [address] [place] [address] ADULT; ELDER ELDER PER 15 CARE CARE MINUTES DAY CARE S5100 KE [facility] SERVICES [address] [place] [address] ADULT; ELDER ELDER PER 15 CARE CARE MINUTES HOME CARE S5108 KE DEMPSEY TRAINING 7 [facility] ELDER ELDER CARE CARE CARE CLIENT PER 15 MIN OPHTH [address] [place] [address] VISION XM&EVAL [place] COMPRHNSV ESTAB PT 1/> HOME CARE S5108 KE KE TRAINING [address] [place] [address] ELDER ELDER CARE CARE CARE CLIENT PER 15 MIN DAY CARE S5100 [address] DEMPSEY [address] ADULT; ELDER ELDER PER 15 CARE CARE MINUTES AMBULANCE A0429 [facility] SERVICE 7 AMBULANCE AMBULANCE BLS SERVICE SERVICE EMERGENCY TRANSPORT GROUND A0425 [facility] AM[facility]ULANCE PER SERVICE SERVICE STATUTE MILE CUL BACT 30119 KE DEMPSEY XCPT 7 [facility] URINE INC INC BLOOD/STO OL AEROBIC ISOL BLOOD 44417 KE DEMPSEY COUNT 7 [facility] COMPLETE INC INC AUTO&[place] [address] KE DEMPSEY STREPTOCO 7 [facility] CCUS INC INC GROUP A RADIOLOGI 55683 [place] [facility] 7 MEDICAL EXAMINATI IMAGING [place] [address] KE DEMPSEY INFUSION 7 [facility] THERAPY INC INC PROPHYLAX IS/[place] [address] KE KE INFUSION 7 [facility] THERAPY/P INC INC ROPHYLAXI S /DX 1ST TO 1 [place] [address]6 KE KE INFUSION 7 [facility] THER INC INC PROPH ADDL SEQUENTIA L TO 1 HR COMPREHEN 89495 KE KE SIVE 7 [facility] METABOLIC INC INC PANEL NONEMERG A0120 [facility] FEDER[facility] TRNSPRT: 7 MINI-BUS TRANSPORT TRANSPORT MTN ATION SER ATION SER AREA/OT SYS DAY CARE S5100 [facility] [place] [address] ADULT; ELDER ELDER PER 15 CARE CARE MINUTES HOME S5170 KE GONZALEZ 7 CO. ADULT CO. ADULT MEALS DAY DAY INCLUDING ELDER ELDER PREPARATI ON; PER MEAL HOME S5170 KE GONZALEZ 7 CO. ADULT CO. ADULT MEALS DAY DAY INCLUDING ELDER ELDER PREPARATI ON; PER MEAL HOME S5170 KE GONZALEZ 7 CO. ADULT CO. ADULT MEALS DAY DAY INCLUDING ELDER ELDER PREPARATI ON; PER MEAL HOME S5170 [facility] [place] [facility] ADULT CO. ADULT MEALS DAY DAY INCLUDING ELDER ELDER PREPARATI ON; PER MEAL HOME S5170 KE GONZALEZ 7 CO. ADULT CO. ADULT MEALS DAY DAY INCLUDING ELDER ELDER PREPARATI ON; PER MEAL HOME S5170 [facility] [place] [facility] ADULT CO. ADULT MEALS DAY DAY INCLUDING ELDER ELDER PREPARATI ON; PER MEAL DAY CARE S[address] ADULT; ELDER ELDER PER 15 CARE CARE MINUTES NONEMERG A0120 [facility] FED[facility] TRNSPRT: 7 MINI-BUS TRANSPORT TRANSPORT MTN ATION SER ATION SER AREA/OT SYS DAY CARE S[address] ADULT; ELDER ELDER PER 15 CARE CARE MINUTES HOME S5170 [facility] [place] [facility]. ADULT CO. ADULT MEALS DAY DAY INCLUDING ELDER ELDER PREPARATI ON; PER MEAL HOME S5170 [facility] [place] [facility] ADULT CO. ADULT MEALS DAY DAY INCLUDING ELDER ELDER PREPARATI ON; PER MEAL HOME S5170 [facility] [place] [facility]. ADULT CO. ADULT MEALS DAY DAY INCLUDING ELDER ELDER PREPARATI ON; PER MEAL HOME S5170 [facility] [place] [facility] ADULT CO. ADULT MEALS DAY DAY INCLUDING ELDER ELDER PREPARATI ON; PER MEAL DAY CARE S[address] ADULT; ELDER ELDER PER 15 CARE CARE MINUTES HOME S5170 [facility] [place] [facility]. ADULT CO. ADULT MEALS DAY DAY INCLUDING ELDER ELDER PREPARATI ON; PER MEAL HOME S5170 [facility] [place] [facility]. ADULT CO. ADULT MEALS DAY DAY INCLUDING ELDER ELDER PREPARATI ON; PER MEAL HOME S5170 [facility] [place] [facility] ADULT CO. ADULT MEALS DAY DAY INCLUDING ELDER ELDER PREPARATI ON; PER MEAL DAY CARE S[address] ADULT; ELDER ELDER PER 15 CARE CARE MINUTES DAY CARE S[address] ADULT; ELDER ELDER PER 15 CARE CARE MINUTES HOME S5170 [facility] 7 CO. ADULT CO. ADULT MEALS DAY DAY INCLUDING ELDER ELDER PREPARATI ON; PER MEAL HOME S5170 KE DEMPSEY FILIIV 7 CO. ADULT CO. ADULT MEALS DAY DAY INCLUDING ELDER ELDER PREPARATI ON; PER MEAL HOME S5170 KE DEMPSEY FILIIV 7 CO. ADULT CO. ADULT MEALS DAY DAY INCLUDING ELDER ELDER PREPARATI ON; PER MEAL HOME S5170 KE DEMPSEY FILIIV 7 CO. ADULT CO. ADULT MEALS DAY DAY INCLUDING ELDER ELDER PREPARATI ON; PER MEAL DAY CARE S[address] [address] ADULT; ELDER ELDER PER 15 CARE CARE MINUTES THERAPEUT 73932 KE DEMPSEY IC PX 1/> 7 [facility] AREAS INC INC EACH 15 MIN EXERCISES APPLICATI 69307 KE DEMPSEY ON 7 [facility] MODALITY INC INC 1/> AREAS HOT/COLD PACKS APPL 01300 KE DEMPSEY MODALITY 7 [facility] 1/> AREAS INC INC ULTRASOUN D EA 15 MIN APPL 61770 KE DEMPSEY MODALITY 7 [facility] 1/> AREAS INC INC ELEC STIMJ UNATTENDE D DAY CARE S5100 [address] [address] ADULT; ELDER ELDER PER 15 CARE CARE MINUTES THERAPEUT 02582 KE DEMPSEY IC PX 1/> 7 [facility] AREAS INC INC EACH 15 MIN EXERCISES NONEMERG A0120 [facility] FED[facility] TRNSPRT: 7 MINI-BUS TRANSPORT TRANSPORT MTN ATION SER ATION SER AREA/OTH SYS APPL 00618 KE DEMPSEY MODALITY 7 [facility] 1/> AREAS INC INC ULTRASOUN D EA 15 MIN APPLICATI 76272 KE DEMPSEY ON 7 [facility] MODALITY INC INC 1/> AREAS HOT/COLD PACKS APPL 96876 KE DEMPSEY MODALITY 7 [facility] 1/> AREAS INC INC ELEC STIMJ UNATTENDE D DAY CARE S[address] [address] ADULT; ELDER ELDER PER 15 CARE CARE MINUTES HOME S5170 KE DEMPSEY DELIV 7 CO. ADULT CO. ADULT MEALS DAY DAY INCLUDING ELDER ELDER PREPARATI ON; PER MEAL PHYSICAL 53628 KE [facility] THERAPY 7 [facility] EVALUATIO [facility] N MOD COMPLEX 30 MINS HOME S5170 KE DEMPSEY DELIV 7 CO. ADULT CO. ADULT MEALS DAY DAY INCLUDING ELDER ELDER PREPARATI ON; PER MEAL DAY CARE S5100 [address] [facility] [address] ADULT; ELDER ELDER PER 15 CARE CARE MINUTES NONEMERG A0120 [facility] FEDERATED TRNSPRT: 7 MINI-BUS TRANSPORT TRANSPORT MTN ATION SER ATION SER AREA/OTH SYS DAY CARE S5100 [facility] [address] ADULT; ELDER ELDER PER 15 CARE CARE MINUTES DAY CARE S[address] ADULT; ELDER ELDER PER 15 CARE CARE MINUTES DRUG 14541 LAB OTIS LAB OTIS SCREEN 7 YFN YFN QUANTITAT [employer]INGS SWAPNIL LEVETIRAC ETAM NONEMERG A0120 [facility] FED[facility] TRNSPRT: 7 MINI-BUS TRANSPORT TRANSPORT MTN ATION SER ATION SER AREA/OTH SYS BLOOD 89571 COMBINED COMBINED COUNT 7 PHYSICIAN PHYSICIAN COMPLETE S LA S LA AUTO&AUTO DIFRNTL WBC LIPID 67288 COMBINED COMBINED PANEL 7 [place] [address] COMBINED COMBINED FREE 7 PHYSICIAN PHYSICIAN THYROXINE S LA S LA COMPREHEN 97224 COMBINED COMBINED SIVE 7 PHYSICIAN PHYSIC[place] [address] COMBINED COMBINED THYROID 7 PHYSICIAN PHYSICIAN STIMULATI S LA S LA NG HORMONE TSH INJECTION J1100 [facility] FR[facility]MAN 7 PHYSICIAN DEXAMETHO S GROUP SONE SODIUM PHOSPHATE 1 MG INJECTION [id number] [facility] 7 PHYSICIAN CEFTRIAXO S GROUP NE SODIUM PER 250 MG THERAPEUT 98047 [facility] IC 7 PHYSICIAN PROPHYLAC S GROUP TIC/DX INJECTION SUBQ/IM FOR DIAB A5512 [facility] ELITE ONLY MX 7 MEDICAL MEDICAL DNSITY SUPPLY SUPPLY INSRT [facility] FORMD PRFAB EA DIAB ONLY A5500 ELITE ELITE FIT CSTM 7 MEDICAL MEDICAL PREP&SPL SUPPLY SUPPLY SHOE [employer] DNSITY INSRT SBSQ 70354 [facility] 7 FACILITY CARE/DAY E/M STABLE 10 MIN NONEMERG A0120 FEDERATED FEDERATED TRNSPRT: 7 [facility]SP[facility] TRANSPORT MTN ATION SER ATION SER AREA/OTH SYS DRUG 67202 LAB OTIS LAB OTIS SCREEN 7 [facility] YFN QUANTITAT HOLDINGS HOLDINGS SWAPNIL LEVETIRAC ETAM NONEMERG A0120 FEDERATED FEDERATED TRNSPRT: 7 [facility] TRANSPORT TRANSPORT MTN ATION SER ATION SER AREA/OTH SYS SBSQ 51176 [facility] 7 FACILITY CARE/DAY E/M STABLE 10 MIN NONEMERG A0120 FEDERATED FEDERATED TRNSPRT: 7 [facility] TRANSPORT TRANSPORT MTN ATION SER ATION SER AREA/OTH SYS NONEMERG A0120 FEDERATED FEDERATED TRNSPRT: 7 [facility] TRANSPORT TRANSPORT MTN ATION SER ATION SER AREA/OTH SYS DRUG 53753 LAB OTIS LAB OTIS SCREEN 7 YFN YFN QUANTITAT HOLDINGS HOLDINGS SWAPNIL LEVETIRAC ETAM NONEMERG A0120 FEDERATED FEDERATED TRNSPRT: 7 [facility] TRANSPORT TRANSPORT MTN ATION SER ATION SER AREA/OTH SYS E/M 79761 [facility] 7 NURSING FACILITY ASSESS STABLE 30 MIN DRUG 47551 COMBINED COMBINED SCREEN 7 PHYSICIAN PHYSICIAN QUANTITAT S LA S LA SWAPNIL PHENYTOIN TOTAL NONEMERG A0120 FEDERATED FEDERATED TRNSPRT: 7 [facility] TRANSPORT TRANSPORT MTN ATION SER ATION SER AREA/OTH SYS NONEMERG A0120 FEDERATED FEDERATED TRNSPRT: 7 [facility] TRANSPORT TRANSPORT MTN ATION SER ATION SER AREA/OTH SYS GROUND A0425 [facility] MILEAGE 7 AMBULANCE AMBULANCE PER SERVICE SERVICE STATUTE MILE AMBULANCE A0429 [facility] SERVICE 7 AMBULANCE AMBULANCE BLS SERVICE SERVICE EMERGENCY TRANSPORT RADEX HIP 82470 [facility] 7 MEDICAL UNILATERA IMAGING L WITH ASS PELVIS 2-3 VIEWS RADIOLOGI 76610 [facility] C 7 MEDICAL EXAMINATI IMAGING ON KNEE 3 ASS VIEWS RADEX 87310 [facility] SPINE 7 MEDICAL LUMBOSACR IMAGING AL 2/3 ASS VIEWS DRUG 70887 LAB OTIS LAB OTIS SCREEN 7 YFN YFN QUANTITAT HOLDINGS HOLDINGS SWAPNIL LEVETIRAC ETAM DRUG 55423 COMBINED COMBINED SCREEN 7 PHYSICIAN PHYSICIAN QUANTITAT S LA S LA SWAPNIL PHENYTOIN TOTAL AMBULANCE A0429 [facility] SERVICE 6 AMBULANCE AMBULANCE BLS SERVICE SERVICE EMERGENCY TRANSPORT GROUND A0425 [facility] PER SERVICE SERVICE STATUTE MILE RADIOLOGI [address] [facility] CHE[facility] 6 MEDICAL EXAMINATI IMAGING ON CHEST ASS SINGLE VIEW FRONTAL DRUG 24994 COMBINED COMBINED SCREEN 6 PHYSICIAN PHYSICIAN QUANTITAT S LA S LA SWAPNIL PHENYTOIN TOTAL SBSQ 72585 RICK[facility] DAMIAN NURSING 6 FACILITY CARE/DAY E/M STABLE 10 MIN NONEMERG A0120 [facility] FEDERATED TRNSPRT: 6 MINI-BUS TRANSPORT TRANSPORT MTN ATION SER ATION SER AREA/OTH SYS NONEMERG A0120 FEDERATED FEDERATED TRNSPRT: 6 MINI-BUS TRANSPORT TRANSPORT MTN ATION SER ATION SER AREA/OTH SYS GROUND A0425 [facility] AM[facility]UL[facility] PER SERVICE SERVICE STATUTE MILE AMBULANCE A0429 [facility] SERVICE 6 AMBULANCE AMBULANCE BLS SERVICE SERVICE EMERGENCY TRANSPORT DRUG 20344 COMBINED COMBINED SCREEN 6 PHYSICIAN PHYSICIAN QUANTITAT S LA S LA SWAPNIL PHENYTOIN TOTAL DRUG 43379 LAB [facility] LAB OTIS SCREEN 6 YFN YFN QUANTITAT HOLDINGS HOLDINGS SWAPNIL LEVETIRAC ETAM NONEMERG A0120 FEDERATED FEDERATED TRNSPRT: 6 MINI-BUS TRANSPORT TRANSPORT MTN ATION SER ATION SER AREA/OTH SYS SBSQ 54122 RICKIE DAMIAN NURSING 6 MARII MARII FACILITY CARE/DAY E/M STABLE 10 MIN NONEMERG A0120 FEDERATED FEDERATED TRNSPRT: 6 MINI-BUS TRANSPORT TRANSPORT MTN ATION SER ATION SER AREA/OTH SYS DRUG 33084 COMBINED COMBINED SCREEN 6 PHYSICIAN PHYSICIAN QUANTITAT S LA S LA SWAPNIL PHENYTOIN TOTAL GROUND A0425 [facility] AMBULANCE PER SERVICE SERVICE STATUTE MILE AMBULANCE A0429 [facility] SERVICE 6 AMBULANCE AMBULANCE BLS SERVICE SERVICE EMERGENCY TRANSPORT DRUG 48304 LAB [facility] LAB OTIS SCREEN 6 YFN YFN QUANTITAT [employer] SWAPNIL LEVETIRAC ETAM AMBULANCE A0429 [facility] SERVICE 6 AMBULANCE AMBULANCE BLS SERVICE SERVICE EMERGENCY TRANSPORT GROUND A0425 [facility] AMBULANCE PER SERVICE SERVICE STATUTE MILE RADEX 42453 [place] ALL WRIST 6 MEDICAL COMPLETE IMAGING MINIMUM 3 ASS VIEWS GLUC BLD 29842 KE TRIANA MNTR 6 [facility] DEV INC INC CLEARED FDA SPEC HOME USE SBSQ [address] [facility] 6 [facility] CARE/DAY E/M STABLE 10 MIN GROUND A0425 [facility] MILEAGE 6 AMBULANCE AMBULANCE PER SERVICE SERVICE STATUTE MILE AMBULANCE A0429 [facility] SERVICE 6 AMBULANCE AMBULANCE BLS SERVICE SERVICE EMERGENCY TRANSPORT DRUG 61906 COMBINED COMBINED SCREEN 6 PHYSICIAN PHYSICIAN QUANTITAT S LA S LA SWAPNIL PHENYTOIN TOTAL ECG 77326 KE TILLMAN JR ROUTINE 6 [facility] W/LEAST P 12 LDS I&R ONLY GROUND A[address] [place], [place] [address]EAGE 6 AMBULANCE AMBULANCE PER SERVICE SERVICE STATUTE MILE RADIOLOGI 61271 [place] CHE[place] ALL C 6 MEDICAL EXAMINATI IMAGING ON CHEST ASS SINGLE VIEW FRONTAL AMB A0427 [facility] SERVICE 6 AMBULANCE AMBULANCE ALS SERVICE SERVICE EMERGENCY TRANSPORT LEVEL 1 AMB A0427 [facility] SERVICE 6 AMBULANCE AMBULANCE ALS SERVICE SERVICE EMERGENCY TRANSPORT LEVEL 1 GROUND A0425 [facility]ANCE AMBULANCE PER SERVICE SERVICE STATUTE MILE DRUG 20240 COMBINED COMBINED SCREEN 6 PHYSICIAN PHYSICIAN QUANTITAT S LA S LA SWAPNIL PHENYTOIN TOTAL SBSQ 64594 RICKIE DAMIAN NURSING 6 [facility] CARE/DAY E/M STABLE 10 MIN DRUG 50735 COMBINED COMBINED SCREEN 6 PHYSICIAN PHYSICIAN QUANTITAT S LA S LA SWAPNIL PHENYTOIN TOTAL DRUG 38926 LAB OTIS LAB OTIS SCREEN 6 [facility] QUANTITAT HOLDINGS HOLDINGS SWAPNIL LEVETIRAC ETAM GROUND A0425 [facility] MILEAGE 6 AMBULANCE AMBULANCE PER SERVICE SERVICE STATUTE MILE AMBULANCE A0429 [facility] SERVICE 6 AMBULANCE AMBULANCE BLS SERVICE SERVICE EMERGENCY TRANSPORT AMBULANCE A0429 [facility] SERVICE 6 AMBULANCE AMBULANCE BLS SERVICE SERVICE EMERGENCY TRANSPORT GROUND A0425 [facility] MILEAGE 6 AMBULANCE AMBULANCE PER SERVICE SERVICE STATUTE MILE NONEMERG A0120 FEDERATED FEDERATED TRNSPRT: 6 MINI-BUS TRANSPORT TRANSPORT MTN ATION SER ATION SER AREA/OTH SYS DRUG 37849 LAB OTIS LAB OTIS SCREEN 6 [facility] QUANTITAT [employer] HOLDINGS SWAPNIL LEVETIRAC ETAM COMPREHEN 25098 KE [facility] SIVE 6 [facility] METABOLIC INC INC PANEL COLLECTIO 83771 [facility] N VENOUS 6 [facility] [address] [place] ALL CERVICAL 6 MEDICAL SPINE W/O IMAGING CONTRAST ASS MATERIAL GROUND A0425 [facility] MILEAGE 6 AMBULANCE AMBULANCE PER SERVICE SERVICE STATUTE MILE DRUG 63776 [facility] SCREEN 6 [facility] QUANTITAT INC INC SWAPNIL PHENYTOIN TOTAL BLOOD 71531 KE [facility] COUNT 6 [facility] COMPLETE INC INC AUTO&AUTO DIFRNTL WBC AMB A0427 [facility] SERVICE 6 AMBULANCE AMBULANCE ALS SERVICE SERVICE [place] [address] [facility] HEAD/BRAI 6 [facility] N W/O INC INC CONTRAST MATERIAL GROUND A0425 [facility] MILEAGE 6 AMBULANCE AMBULANCE PER SERVICE SERVICE STATUTE MILE AMBULANCE A0429 [facility] SERVICE 6 AMBULANCE AMBULANCE BLS SERVICE SERVICE EMERGENCY TRANSPORT AMBULANCE A0429 [facility] SERVICE 6 AMBULANCE AMBULANCE BLS SERVICE SERVICE EMERGENCY TRANSPORT GROUND A0425 [facility] MILEAGE 6 AMBULANCE AMBULANCE PER SERVICE SERVICE STATUTE MILE SIMPLE 21025 [facility] RE[facility] 6 PHYSICIAN U BEN SCALP/NEC S, PLLC K/AX/TEJINDER T/TRUNK 2.5CM/< SCREENING [id number] [facility] 6 MEDICAL FIEDL MAMMOGRAP IMAGING HY JULY ASS INCL CAD WHEN PERFORMD NONEMERG A0120 FEDERATED FEDERATED TRNSPRT: 6 MINI-BUS TRANSPORT TRANSPORT MTN [facility]/OT SYS COMPUTER- 59836 [place] DONNELL AIDED 6 MEDICAL FIDEL DETECTION IMAGING ASS SCREENING MAMMOGRAP HY DRUG 63450 LAB OT[facility] LAB OTIS SCREEN 6 YFN YFN QUANTITAT [employer] [address] [place] ALL CERVICAL 6 MEDICAL SPINE W/O IMAGING CONTRAST ASS MATERIAL CT LUMBAR 28085 [place] ALL SPINE 6 MEDICAL W/O IMAGING CONTRAST ASS MATERIAL RADIOLOGI 28844 [place] CHE[place] ALL C 6 MEDICAL EXAMINATI IMAGING ON TIBIA ASS & FIBULA 2 VIEWS AMBULANCE A0429 [facility] SERVICE 6 AMBULANCE AMBULANCE BLS SERVICE SERVICE EMERGENCY TRANSPORT GROUND A0425 [facility] AMBULANCE AMBULANCE [place] [address] [place] CHE[place] ALL HEAD/BRAI 6 MEDICAL N W/O IMAGING CONTRAST ASS MATERIAL NONEMERG A0120 FEDERATED FEDERATED TRNSPRT: 6 MINI-BUS TRANSPORT [facility] NON[facility] A0120 FEDERATED FEDERATED TRNSPRT: 6 MINI-BUS TRANSPORT [facility] GROUND A0425 [facility]ULANCE AMBULANCE PER SERVICE SERVICE STATUTE MILE AMBULANCE A0429 [facility] 6 AMBULANCE AMBULANCE BLS SERVICE SERVICE EMERGENCY TRANSPORT AMBULANCE [address] [place] [address] 6 AMBULANCE AMBULANCE BLS SERVICE SERVICE EMERGENCY TRANSPORT GROUND A0425 [facility] MILEAGE 6 AMBULANCE AMBULANCE PER SERVICE SERVICE STATUTE MILE GROUND A0425 [facility] MILEAGE 6 AMBULANCE AMBULANCE [place] [address] SRINATH JACOBO HEAD/BRAI 6 MEDICAL FIDEL N W/O IMAGING CONTRAST ASS MATERIAL AMB A0427 [facility] SERVICE 6 AMBULANCE AMBULANCE ALS SERVICE SERVICE EMERGENCY TRANSPORT LEVEL 1 NONEMERG A0120 FEDERATED FEDERATED TRNSPRT: 6 MINI-BUS TRANSPORT TRANSPORT [facility] GROUND A0425 [facility] MILEAGE 6 AMBULANCE AMBULANCE PER SERVICE SERVICE STATUTE MILE AMB A0427 [facility] 6 AMBULANCE AMBULANCE ALS SERVICE SERVICE EMERGENCY TRANSPORT LEVEL 1 AMB A0427 [facility] 6 AMBULANCE AMBULANCE ALS SERVICE SERVICE EMERGENCY TRANSPORT LEVEL 1 GROUND A0425 [facility] MILEAGE 6 AMBULANCE AMBULANCE PER SERVICE SERVICE STATUTE MILE RADIOLOGI 03955 [facility] C 6 [facility] EXAMINATI INC INC ON PELVIS 1/2 VIEWS RADEX 35230 [facility] SPINE 6 [facility] LUMBOSACR INC INC AL MINIMUM 4 VIEWS AMBULANCE A0429 [facility] 6 AMBULANCE AMBULANCE BLS SERVICE SERVICE EMERGENCY TRANSPORT GROUND A0425 [facility] MILEAGE 6 AMBULANCE AMBULANCE PER SERVICE SERVICE STATUTE MILE NONEMER A0120 FEDERATED FEDERATED TRNSPRT: 6 MINI-BUS TRANSPORT TRANSPORT [facility] GROUND A0425 [facility] MILEAGE 6 AMBULANCE AMBULANCE PER SERVICE SERVICE STATUTE MILE AMB A0427 [facility] 6 AMBULANCE AMBULANCE ALS SERVICE SERVICE EMERGENCY TRANSPORT LEVEL 1 NONEMER A0120 FEDERATED FEDERATED TRNSPRT: 6 MINI-BUS TRANSPORT TRANSPORT [facility] DRUG 43693 LAB OTIS LAB OTIS SCREEN 6 YFN YFN QUANTITAT HOLDINGS HOLDINGS SWAPNIL LEVETIRAC ETAM NONEMERG A0120 FEDERATED FEDERATED TRNSPRT: 6 MINI-BUS TRANSPORT TRANSPORT [facility]/OT SYS GROUND A0425 [facility] MILEAGE 6 AMBULANCE AMBULANCE PER SERVICE SERVICE STATUTE MILE AMB A0427 [facility] 6 AMBULANCE AMBULANCE ALS SERVICE SERVICE EMERGENCY TRANSPORT LEVEL 1 AMB A0427 [facility] 6 AMBULANCE AMBULANCE ALS SERVICE SERVICE EMERGENCY TRANSPORT LEVEL 1 GROUND A0425 [facility] MILEAGE 6 AMBULANCE AMBULANCE PER SERVICE SERVICE STATUTE MILE GROUND A0425 [facility] MILEAGE 6 MEDICAL MEDICAL PER RESPONSE RESPONSE STATUTE MILE AMB A0422 [facility] OXYGEN&O2 6 MEDICAL MEDICAL SUPPLIES RESPONSE RESPONSE LIFE SUSTAININ G SITUATION ELECTROEN 38125 [place] CEPHALOGR 6 MEDICAL [place] AM W/REC SERV AWAKE&CARLIE FOUNDATIO WSY N GROUND A0425 [facility] MILEAGE 6 AMBULANCE AMBULANCE PER SERVICE SERVICE STATUTE MILE AMBULANCE A0429 [facility] 6 AMBULANCE AMBULANCE BLS SERVICE SERVICE EMERGENCY TRANSPORT AMB A0427 [facility] 6 AMBULANCE AMBULANCE ALS SERVICE SERVICE EMERGENCY TRANSPORT LEVEL 1 RADIOLOGI 48538 [place] CHE[place] ALL C 6 MEDICAL EXAMINATI IMAGING ON KNEE ASS 1/2 VIEWS NONEMER A0120 FEDERATED FEDERATED TRNSPRT: 6 MINI-BUS TRANSPORT TRANSPORT [facility] GROUND A0425 [facility] MILEAGE 6 AMBULANCE AMBULANCE PER SERVICE SERVICE STATUTE MILE AMBULANCE A0429 [facility] 6 AMBULANCE AMBULANCE BLS [place] [address] [facility] HEAD/BRAI 6 [facility] N W/[place] [address] [facility] CERVICAL 6 [facility] SPINE W/O INC INC CONTRAST MATERIAL AMB A0427 [facility] 6 AMBULANCE AMBULANCE ALS SERVICE SERVICE EMERGENCY TRANSPORT LEVEL 1 GROUND A0425 [facility] MILEAGE 6 AMBULANCE AMBULANCE PER SERVICE SERVICE STATUTE MILE GROUND A0425 [facility] MILE[facility] 6 AMBULANCE AMBULANCE PER SERVICE SERVICE STATUTE MILE AMB A0427 [facility] SERVICE 6 AMBULANCE AMBULANCE ALS SERVICE SERVICE EMERGENCY TRANSPORT LEVEL 1 RADIOLOGI 04960 SRINATH CHEUNG ALL C 6 MEDICAL EXAMINATI IMAGING [place] [address] SRINATH CHEUNG ALL HEAD/BRAI 6 MEDICAL N W/O IMAGING CONTRAST ASS MATERIAL GROUND A0425 [facility] MILEAGE 6 AMBULANCE AMBULANCE PER SERVICE SERVICE STATUTE MILE AMBULANCE A0429 [facility] SERVICE 6 AMBULANCE AMBULANCE BLS SERVICE SERVICE EMERGENCY TRANSPORT GROUND A0425 [facility] MILEAGE 6 AMBULANCE AMBULANCE [place] [address] [facility] HEAD/BRAI 6 [facility] N W/O INC INC CONTRAST MATERIAL RADIOLOGI 18911 SRINATH SANTIAGO C 6 MEDICAL EXAMINATI IMAGING ON CHEST ASS SINGLE VIEW FRONTAL AMB A0427 [facility] SERVICE 6 AMBULANCE AMBULANCE ALS SERVICE SERVICE EMERGENCY TRANSPORT LEVEL 1 NONEMERG A0120 FEDERATED FEDERATED TRNSPRT: 6 MINI-BUS TRANSPORT TRANSPORT MTN [facility]/OTH SYS GROUND A0425 [facility] MILEAGE 6 AMBULANCE AMBULANCE PER SERVICE SERVICE STATUTE MILE AMB A0427 [facility] SERVICE 6 AMBULANCE AMBULANCE ALS SERVICE SERVICE [place] [address] [facility] HEAD/BRAI 6 [facility] W/[place] [address] [facility] CERVICAL 6 [facility] SPINE W/O INC INC CONTRAST MATERIAL NONEMERG A0120 FEDERATED FEDERATED TRNSPRT: 6 MINI-BUS TRANSPORT [facility] QU[facility] 15151 [facility] ION DRUG 6 [facility] NOT INC INC ELSEWHERE SPECIFIED DRUG 74858 [facility] SCREEN 6 [facility] QUANTITAT INC INC SWAPNIL PHENYTOIN TOTAL URNLS DIP 54947 [facility] 6 [facility] STICK/TAB INC INC LET REAGENT AUTO MICROSCOP Y BLOOD 70655 [facility] COUNT 6 [facility] COMPLETE INC INC AUTO&AUTO DIFRNTL WBC BLOOD 14086 [facility] COUNT 6 [facility] COMPLETE INC INC AUTO&AUTO DIFRNTL WBC DRUG 77340 [facility] SCREEN 6 [facility] QUANTITAT [place] [address] KE [facility] HEAD/BRAI 6 [facility] N W/O INC INC CONTRAST MATERIAL COLLECTIO 85101 COMBINED COMBINED N VENOUS 6 PHYSICIAN PHYSICIAN BLOOD S LA S LA VENIPUNCT URE COMPREHEN 01551 [facility] SIVE 6 [facility] METABOLIC INC INC PANEL ELECTROEN 76848 REJI [facility] CEPHALOGR 6 N N AM EXTEND COMMUNTIY COMMUNTIY HOSPITA HOSPITA MONITORIN G 41-60 MIN ELECTROEN 01999 [facility] CEPHALOGR 6 N AM W/REC NEUROLOGY AWAKE&ASL EEP NONEMERG A0120 FEDERATED FEDERATED TRNSPRT: 6 MINI-BUS TRANSPORT [facility] 57257 [facility] SCREEN 6 [facility] QUANTITAT INC INC SWAPNIL PHENYTOIN TOTAL DRUG 43856 [facility] SCREEN 6 [facility] QUANTITAT INC INC SWAPNIL PHENYTOIN TOTAL BLOOD 74664 KE [facility] COUNT 6 [facility] COMPLETE INC INC AUTO&AUTO DIFRNTL WBC RADIOLOGI 05592 [facility] C 6 [facility] EXAMINATI INC [place] [address] KE [facility] HEAD/BRAI 6 [facility] N W/O INC INC CONTRAST MATERIAL COMPREHEN 49295 [facility] SIVE 6 [facility] METABOLIC INC INC PANEL NONEMERG A0120 FEDERATED FEDERATED TRNSPRT: 5 MINI-BUS TRANSPORT [facility] CONTINUOU E0601 ZULEYMA AMOR S 5 HOME HOME POSITIVE MEDICAL MEDICAL AIRWAY EQUIPME EQUIPME PRESSURE DEVICE NONEMERG A0120 FEDERATED FEDERATED TRNSPRT: 5 MINI-BUS TRANSPORT TRANSPORT MTN ATION SER [facility]LY [facility] SER AREA/OTH SYS BLOOD 30602 [facility] COUNT 5 [facility] COMPLETE INC INC AUTO&AUTO DIFRNTL WBC GLUC BLD 88369 [facility] GLUC MNTR 5 [facility] DEV INC INC CLEARED FDA SPEC HOME USE DRUG 94142 KE [facility] SCREEN 5 [facility] QUANTITAT INC INC SWAPNIL PHENYTOIN TOTAL URNLS DIP 88814 KE [facility]Y 5 [facility] STICK/TAB INC INC LET REAGENT AUTO MICROSCOP Y GLUCOSE 50158 [facility] QUANTITAT 5 [facility] SWAPNIL BLOOD INC INC XCPT REAGENT STRIP COMPREHEN 30423 [facility] SIVE 5 [facility] METABOLIC INC INC PANEL COLLECTIO 39538 [facility] N VENOUS 5 N N BLOOD COMMUNTIY COMMUNTIY VENIPUNCT HOSPITA HOSPITA URE COMPREHEN 88633 [facility] SIVE 5 N N METABOLIC COMMUNTIY COMMUNTIY PANEL HOSPITA HOSPITA DRUG 46079 [facility] SCREEN 5 N N QUANTITAT COMMUNTIY COMMUNTIY SWAPNIL HOSPITA HOSPITA PHENYTOIN TOTAL BLOOD 10875 [facility] COUNT 5 N N COMPLETE COMMUNTIY COMMUNTIY AUTO&AUTO HOSPITA HOSPITA DIFRNTL WBC NONEMERG A0120 FEDERATED FEDERATED TRNSPRT: 5 MINI-BUS TRANSPORT TRANSPORT MTN ATION SER ATFORMERLY [facility], [facility] SER AREA/OTH SYS NONEMERG A0120 FEDERATED FEDERATED TRNSPRT: 5 MINI-BUS TRANSPORT [facility] CONTINUOU E0601 ZULEYMA Conrad 5 HOME HOME POSITIVE MEDICAL MEDICAL AIRWAY EQUIPME EQUIPME PRESSURE DEVICE GLUC BLD 04421 [facility] GLUC MNTR 5 [facility] DEV INC INC CLEARED FDA SPEC HOME USE COLONOSCO 88072 [facility] PY FLX DX 5 [facility] W/[place] [address] [facility] INFUSION 5 [facility] THERAPY INC INC PROPHYLAX [place] [address] [facility] INFUSION 5 [facility] THERAPY/P INC INC ROPHYLAXI S /DX 1ST TO 1 HR DRUG 63819 COMBINED COMBINED SCREEN 5 PHYSICIAN PHYSICIAN QUANTITAT S LA S LA SWAPNIL PHENYTOIN TOTAL COLLECTIO 05868 COMBINED COMBINED N VENOUS 5 PHYSICIAN PHYSICIAN BLOOD S LA S LA VENIPUNCT URE COMPREHEN 16562 [facility] SIVE 5 [facility] METABOLIC INC INC PANEL DRUG 87055 [facility] SCREEN 5 [facility] QUANTITAT INC INC SWAPNIL PHENYTOIN TOTAL BLOOD 05004 [facility] COUNT 5 [facility] COMPLETE INC INC AUTO&[place] [address] [facility] INFUSION 5 [facility] THERAPY/P INC INC ROPHYLAXI S /DX 1ST TO 1 HR NONEMERG A0120 FEDERATED FEDERATED TRNSPRT: 5 MINI-BUS TRANSPORT TRANSPORT MTN ATION SER ATION SER AREA/OTH SYS HEADGEAR A7035 ZULEYMA AMOR USED 5 HOME HOME W/POSITIV MEDICAL MEDICAL E AIRWAY EQUIPME EQUIPME PRESSURE DEVICE TUBING A7037 ZULEYMA AMOR USED WITH 5 HOME HOME POSITIVE MEDICAL MEDICAL AIRWAY EQUIPME EQUIPME PRESSURE DEVICE CONTINUOU E0601 ZULEYMA AMOR S 5 HOME HOME POSITIVE MEDICAL MEDICAL AIRWAY EQUIPME EQUIPME PRESSURE DEVICE HUMDIFIR E0562 ZULEYMA AMOR HEATED 5 HOME HOME USED MEDICAL MEDICAL W/POS EQUIPME EQUIPME ARWAY PRESSURE DEVICE FULL FACE A7030 ZULEYMA AMOR MASK 5 HOME HOME USED MEDICAL MEDICAL W/POS EQUIPME EQUIPME ARWAY PRESS DEVICE EA FILTER A7038 ZULEYMA AMOR DISPBL 5 HOME HOME USED MEDICAL MEDICAL W/POS EQUIPME EQUIPME ARWAY PRESSURE DEVICE FILTER A7039 ZULEYMA AMOR NON 5 HOME HOME DISPBL MEDICAL MEDICAL USED EQUIPME EQUIPME W/POS ARWAY PRESS DEVICE IIV4 VACC 79154 [facility] VIRUS 0.5 HLTH DEPT ML DOS BALTAZAR FOR IM USE CUL BACT 54439 COMBINED COMBINED XCPT 5 PHYSICIAN PHYSICIAN URINE S LA S LA BLOOD/STO OL AEROBIC ISOL NONEMERG A0120 FEDERATED FEDERATED TRNSPRT: 5 MINI-BUS TRANSPORT TRANSPORT MTN AT[facility]ERLY [facility] SER [facility]/OT SYS NONEMERG A0120 FEDERATED FEDERATED TRNSPRT: 5 MINI-BUS TRANSPORT TRANSPORT MTN ATION SER [facility]/OT SYS NEEDLE 33129 [facility] EMG EA 5 N EXTREMTY NEUROLOGY W/PARASPI NL AREA COMPLETE NERVE 90467 [facility] CONDUCTIO 5 N N STUDIES NEUROLOGY 9-10 STUDIES NONEMERG A0120 FEDERATED FEDERATED TRNSPRT: 5 MINI-BUS TRANSPORT [facility] NONEMERG A0120 FEDERATED FEDERATED TRNSPRT: 5 MINI-BUS TRANSPORT [facility] AMBULANCE A0429 [facility] SERVICE 5 AMBULANCE AMBULANCE BLS SERVICE SERVICE EMERGENCY TRANSPORT RADIOLOGI 92588 [facility] C EXAM 5 MEDICAL FIDEL CHEST 2 IMAGING VIEWS ASS FRONTAL&L ATERAL GROUND A0425 [facility] MILEAGE 5 AMBULANCE AMBULANCE PER SERVICE SERVICE STATUTE MILE NONEMERG A0120 FEDERATED FEDERATED TRNSPRT: 5 MINI-BUS TRANSPORT TRANSPORT MTN ATION SER [facility]/OT SYS NONEMERG A0120 FEDERATED FEDERATED TRNSPRT: 5 MINI-BUS TRANSPORT [facility] NONEMERG A0120 FEDERATED FEDERATED TRNSPRT: 5 MINI-BUS TRANSPORT TRANSPORT MTN ATFORMERLY [facility] SER [facility]/OT SYS MRI 52298 [facility] SPINAL 5 [place] CANAL ORTHOPAED LUMBAR [facility] W/O CONTRAST MATERIAL PARING/CU [address] IKER DONG TTING 5 JAM JAM BENIGN HYPERKERA TOTIC LESION >4 TRIMMING 45748 IK[facility] DONG NONDYSTRO 5 JAM JAM PHIC NAILS ANY NUMBER DEBRIDEME 71835 BRAUDIS BRAUDIS NT NAIL 5 JAM JAM ANY METHOD 1-5 RADEX 90632 [facility] TRA SPINE 5 [place] LUMBOSACR ORTHOPAED AL 2/3 [facility] VIEWS NONEMERG A0120 FEDERATED FEDERATED TRNSPRT: 5 MINI-BUS TRANSPORT TRANSPORT MTN AT[facility]LY [facility] SER ATFORMERLY [facility], [facility] SER AREA/OTH SYS NONEMERG A0120 FEDERATED FEDERATED TRNSPRT: 5 MINI-BUS TRANSPORT TRANSPORT MTN [facility] SER [facility] AREA/OTH SYS SBSQ 89472 [facility] [place] [facility] 5 [facility] CARE/DAY E/M STABLE 10 MIN SBSQ 48143 [facility] NURSING 5 [facility] CARE/DAY E/M STABLE 10 MIN DAY CARE S5100 THE THE [address] ADULT; ADULT ADULT PER 15 DAY CARE DAY CARE MINUTES INITIAL 81541 [facility] NURSING 5 [facility] CARE/DAY 25 MINUTES DAY CARE S5100 THE THE [address] ADULT; ADULT ADULT PER 15 DAY CARE DAY CARE MINUTES DAY CARE S5100 THE THE [address] ADULT; ADULT ADULT PER 15 DAY CARE DAY CARE MINUTES DAY CARE S5100 THE THE [address] ADULT; ADULT ADULT PER 15 DAY CARE DAY CARE MINUTES DAY CARE S5100 THE THE [address] ADULT; ADULT ADULT PER 15 DAY CARE DAY CARE MINUTES DAY CARE S5100 THE THE [address] ADULT; ADULT ADULT PER 15 DAY CARE DAY CARE MINUTES DAY CARE S5100 [facility] [address] ADULT; ADULT ADULT PER 15 DAY CARE DAY CARE MINUTES DAY CARE S5100 [facility] [address] ADULT; ADULT ADULT PER 15 DAY CARE DAY CARE MINUTES DAY CARE S5100 THE [facility] [address] ADULT; ADULT ADULT PER 15 DAY CARE DAY CARE MINUTES DAY CARE S5100 THE [facility] [address] ADULT; ADULT ADULT PER 15 DAY CARE DAY CARE MINUTES DAY CARE S5100 THE THE [facility] [address] [place] [address] ADULT; ADULT ADULT PER 15 DAY CARE DAY CARE MINUTES DAY CARE S5100 THE [facility] [address] [place] [address] ADULT; ADULT ADULT PER 15 DAY CARE DAY CARE MINUTES DAY CARE S5100 THE [facility] [address] [place] [address] ADULT; ADULT ADULT PER 15 DAY CARE DAY CARE MINUTES DAY CARE S5100 THE [facility] [address] [place] [address] ADULT; ADULT ADULT PER 15 DAY CARE DAY CARE MINUTES DAY CARE S5100 THE [facility] [address] [place] [address] ADULT; ADULT ADULT PER 15 DAY CARE DAY CARE MINUTES DAY CARE S5100 THE [facility] [address] [place] [address] ADULT; ADULT ADULT PER 15 DAY CARE DAY CARE MINUTES DAY CARE S5100 THE [facility] [address] [place] [address] ADULT; ADULT ADULT PER 15 DAY CARE DAY CARE MINUTES DAY CARE S5100 [facility] [address] ADULT; ADULT ADULT PER 15 DAY CARE DAY CARE MINUTES DAY CARE S5100 THE [facility] [address] [place] [address] ADULT; ADULT ADULT PER 15 DAY CARE DAY CARE MINUTES DAY CARE S5[address] [facility] [address] ADULT; ADULT ADULT PER 15 DAY CARE DAY CARE MINUTES DAY CARE S5100 [facility] [address] ADULT; ADULT ADULT PER 15 DAY CARE DAY CARE MINUTES DAY CARE S5100 [facility] [address] ADULT; ADULT ADULT PER 15 DAY CARE DAY CARE MINUTES DAY CARE S5100 [facility] [address] ADULT; ADULT ADULT PER 15 DAY CARE DAY CARE MINUTES DAY CARE S5100 THE [facility] [address] [place] [address] ADULT; ADULT ADULT PER 15 DAY CARE DAY CARE MINUTES DAY CARE S5100 THE [facility] [address] [place] [address] ADULT; ADULT ADULT PER 15 DAY CARE DAY CARE MINUTES DAY CARE S5100 THE [facility] [address] [place] [address] ADULT; ADULT ADULT PER 15 DAY CARE DAY CARE MINUTES DAY CARE S5100 THE [facility] [address] [place] [address] ADULT; ADULT ADULT PER 15 DAY CARE DAY CARE MINUTES DAY CARE S5100 [facility] [address] ADULT; ADULT ADULT PER 15 DAY CARE DAY CARE MINUTES DAY CARE S5100 [facility] [address] ADULT; ADULT ADULT PER 15 DAY CARE DAY CARE MINUTES DAY CARE S5100 [facility] [address] ADULT; ADULT ADULT PER 15 DAY CARE DAY CARE MINUTES DAY CARE S5100 [facility] [address] ADULT; ADULT ADULT PER 15 DAY CARE DAY CARE MINUTES DAY CARE S5100 [facility] [address] ADULT; ADULT ADULT PER 15 DAY CARE DAY CARE MINUTES DAY CARE S5100 [facility] [address] ADULT; ADULT ADULT PER 15 DAY CARE DAY CARE MINUTES DAY CARE S5100 [facility] [address] ADULT; ADULT ADULT PER 15 DAY CARE DAY CARE MINUTES DAY CARE S[address] [facility] [address] ADULT; ADULT ADULT PER 15 DAY CARE DAY CARE MINUTES DAY CARE S[address] ADULT; ADULT ADULT PER 15 DAY CARE DAY CARE MINUTES DAY CARE S5100 THE THE [address] ADULT; ADULT ADULT PER 15 DAY CARE DAY CARE MINUTES DAY CARE S5100 THE THE [address] ADULT; ADULT ADULT PER 15 DAY CARE DAY CARE MINUTES NONEMERGE A0100 [facility] REYES NCY 5 INC TRANSPORT TRANSPORT REGION 9 ATION CO ATION; L TAXI DAY CARE S5100 THE THE [address] ADULT; ADULT ADULT PER 15 DAY CARE DAY CARE MINUTES DAY CARE S5100 THE THE [address] ADULT; ADULT ADULT PER 15 DAY CARE DAY CARE MINUTES DAY CARE S5100 THE THE [address] ADULT; ADULT ADULT PER 15 DAY CARE DAY CARE MINUTES DAY CARE S5100 THE THE [address] ADULT; ADULT ADULT PER 15 DAY CARE DAY CARE MINUTES DAY CARE S5100 THE THE [address] ADULT; ADULT ADULT PER 15 DAY CARE DAY CARE MINUTES DAY CARE S5100 THE THE [address] ADULT; ADULT ADULT PER 15 DAY CARE DAY CARE MINUTES DAY CARE S5100 THE THE [address] ADULT; ADULT ADULT PER 15 DAY CARE DAY CARE MINUTES DAY CARE S5100 THE THE [address] ADULT; ADULT ADULT PER 15 DAY CARE DAY CARE MINUTES DAY CARE S5100 THE THE [address] ADULT; ADULT ADULT PER 15 DAY CARE DAY CARE MINUTES DAY CARE S5100 THE THE [address] ADULT; ADULT ADULT PER 15 DAY CARE DAY CARE MINUTES DAY CARE S5100 THE THE [address] ADULT; ADULT ADULT PER 15 DAY CARE DAY CARE MINUTES DAY CARE S5100 THE THE [address] ADULT; ADULT ADULT PER 15 DAY CARE DAY CARE MINUTES DAY CARE S5100 THE THE [address] ADULT; ADULT ADULT PER 15 DAY CARE DAY CARE MINUTES DAY CARE S5100 THE THE [address] ADULT; ADULT ADULT PER 15 DAY CARE DAY CARE MINUTES DAY CARE S5100 THE THE [address] ADULT; ADULT ADULT PER 15 DAY CARE DAY CARE MINUTES POLYSOM [address] 6/>YRS 5 CANDACE CANDACE SLEEP 4/> MED [facility] ADDL ENVIRONMENTAL SCIENCES PROFESSOR ST ENVIRONMENTAL SCIENCES PROFESSOR ST ALVARO ATTND DAY CARE S5100 THE THE [address] ADULT; ADULT ADULT PER 15 DAY CARE DAY CARE MINUTES DAY CARE S5100 THE THE [address] ADULT; ADULT ADULT PER 15 DAY CARE DAY CARE MINUTES DAY CARE S5100 THE THE [address] ADULT; ADULT ADULT PER 15 DAY CARE DAY CARE MINUTES DAY CARE S5100 THE THE [address] ADULT; ADULT ADULT PER 15 DAY CARE DAY CARE MINUTES NONEMERGE A0100 [facility] SHANNAN SAUCEDO NCY 5 INC TRANSPORT TRANSPORT REGION 9 ATION CO ATION; L TAXI DAY CARE S5100 THE THE [address] ADULT; ADULT ADULT PER 15 DAY CARE DAY CARE MINUTES DAY CARE S5100 THE THE [address] ADULT; ADULT ADULT PER 15 DAY CARE DAY CARE MINUTES DAY CARE S5100 THE THE [address] ADULT; ADULT ADULT PER 15 DAY CARE DAY CARE MINUTES DAY CARE S5100 THE THE [address] ADULT; ADULT ADULT PER 15 DAY CARE DAY CARE MINUTES DAY CARE S5100 THE THE [address] ADULT; ADULT ADULT PER 15 DAY CARE DAY CARE MINUTES DAY CARE S5100 THE THE [address] ADULT; ADULT ADULT PER 15 DAY CARE DAY CARE MINUTES DAY CARE S5100 THE THE [address] ADULT; ADULT ADULT PER 15 DAY CARE DAY CARE MINUTES DAY CARE S5100 THE THE [address] ADULT; ADULT ADULT PER 15 DAY CARE DAY CARE MINUTES ECG 06444 EXPRESS EXPRESS ROUTINE 5 MOBILE MOBILE ECG DIAGNOSTI DIAGNOSTI W/LEAST C SE C SE 12 LDS TRCG ONLY W/O I&R DAY CARE S5100 THE THE [address] ADULT; ADULT ADULT PER 15 DAY CARE DAY CARE MINUTES DAY CARE S5100 THE THE [address] ADULT; ADULT ADULT PER 15 DAY CARE DAY [facility]GE [facility] 9 ATION CO ATION; L TAXI DAY CARE S5100 THE THE [address] ADULT; ADULT ADULT PER 15 DAY CARE DAY CARE MINUTES DAY CARE S5100 THE THE [address] ADULT; ADULT ADULT PER 15 DAY CARE DAY CARE MINUTES DAY CARE S5100 THE THE [address] ADULT; ADULT ADULT PER 15 DAY CARE DAY CARE MINUTES DAY CARE S5100 THE THE [address] ADULT; ADULT ADULT PER 15 DAY CARE DAY CARE MINUTES DAY CARE S5100 THE THE [address] ADULT; ADULT ADULT PER 15 DAY CARE DAY CARE MINUTES DAY CARE S5100 THE THE [address] ADULT; ADULT ADULT PER 15 DAY CARE DAY CARE MINUTES DAY CARE S5100 THE THE [address] ADULT; ADULT ADULT PER 15 DAY CARE DAY CARE MINUTES DAY CARE S5100 THE THE [address] ADULT; ADULT ADULT PER 15 DAY CARE DAY CARE MINUTES DAY CARE S5100 THE [address] ADULT; ADULT ADULT PER 15 DAY CARE DAY CARE MINUTES NONEMERGE A0100 [facility] 5 INC TRANSPORT TRANSPORT REGION 9 ATION CO ATION; L TAXI DAY CARE S5100 THE THE [address] ADULT; ADULT ADULT PER 15 [place] [address] LAB OTIS LAB OTIS THYROXINE 5 [facility] TOTAL [employer] HOLD[place] HEMOGLOBI [address]88[address] LAB OT[facility] LAB OTIS N 5 [facility] GLYCOSYLA HOLDINGS HOLDINGS JERI A1C LIPID 34486 LAB OT[facility] LAB OTIS PANEL 5 [facility] HOLDINGS HOLDINGS GENERAL 537[address] LAB OTIS LAB [facility] HEALTH 5 [facility] PANEL HOLDINGS HOLDINGS DAY CARE S5100 THE THE [address] ADULT; ADULT ADULT PER 15 DAY CARE DAY CARE MINUTES DAY CARE S5100 THE THE [address] ADULT; ADULT ADULT PER 15 DAY CARE DAY CARE MINUTES DAY CARE S5100 THE THE [address] ADULT; ADULT ADULT PER 15 DAY CARE DAY CARE MINUTES NONEMERGE A0100 [facility] 5 INC TRANSPORT TRANSPORT REGION 9 ATION CO ATION; L TAXI DAY CARE S5100 THE THE [address] ADULT; ADULT ADULT PER 15 DAY CARE DAY CARE MINUTES DAY CARE S5100 THE THE [address] ADULT; ADULT ADULT PER 15 DAY CARE DAY CARE MINUTES DAY CARE S5100 THE THE [address] ADULT; ADULT ADULT PER 15 DAY CARE DAY CARE MINUTES DAY CARE S5100 THE THE [address] ADULT; ADULT ADULT PER 15 DAY CARE DAY CARE MINUTES DAY CARE S5100 THE THE [address] ADULT; ADULT ADULT PER 15 DAY CARE DAY CARE MINUTES DAY CARE S5100 THE THE [address] ADULT; ADULT ADULT PER 15 DAY CARE DAY CARE MINUTES DAY CARE S5100 THE THE [address] ADULT; ADULT ADULT PER 15 DAY CARE DAY CARE MINUTES DAY CARE S5100 THE THE [address] ADULT; ADULT ADULT PER 15 DAY CARE DAY CARE MINUTES DAY CARE S5100 THE THE [address] ADULT; ADULT ADULT PER 15 DAY CARE DAY CARE MINUTES DAY CARE S5100 THE THE [address] ADULT; ADULT ADULT PER 15 DAY CARE DAY CARE MINUTES DAY CARE S5100 THE THE [address] ADULT; ADULT ADULT PER 15 DAY CARE DAY CARE MINUTES DAY CARE S5100 THE THE [address] ADULT; ADULT ADULT PER 15 DAY CARE DAY CARE MINUTES NONEMERGE A0100 [facility] 5 INC TRANSPORT TRANSPORT REGION 9 ATION CO ATION; L TAXI DAY CARE S5100 THE THE [address] ADULT; ADULT ADULT PER 15 DAY CARE DAY CARE MINUTES DAY CARE S5100 THE THE [address] ADULT; ADULT ADULT PER 15 DAY CARE DAY CARE MINUTES DAY CARE S5100 THE THE [address] ADULT; ADULT ADULT PER 15 DAY CARE DAY CARE MINUTES DAY CARE S5100 THE THE [address] ADULT; ADULT ADULT PER 15 DAY CARE DAY CARE MINUTES DAY CARE S5100 THE THE [address] ADULT; ADULT ADULT PER 15 DAY CARE DAY CARE MINUTES DAY CARE S5100 THE THE [address] ADULT; ADULT ADULT PER 15 DAY CARE DAY CARE MINUTES DAY CARE S5100 THE THE [address] ADULT; ADULT ADULT PER 15 DAY CARE DAY CARE MINUTES DAY CARE S5100 THE THE [address] ADULT; ADULT ADULT PER 15 DAY CARE DAY CARE MINUTES DAY CARE S5100 THE THE [address] ADULT; ADULT ADULT PER 15 DAY CARE DAY CARE MINUTES DAY CARE S5100 THE THE [address] ADULT; ADULT ADULT PER 15 DAY CARE DAY CARE MINUTES DAY CARE S5100 THE THE [address] ADULT; ADULT ADULT PER 15 DAY CARE DAY CARE MINUTES DAY CARE S5100 THE THE [address] ADULT; ADULT ADULT PER 15 DAY CARE DAY CARE MINUTES DAY CARE S5[address] ADULT; ADULT ADULT PER 15 DAY CARE DAY CARE MINUTES DAY CARE S5[address] ADULT; ADULT ADULT PER 15 DAY CARE DAY CARE MINUTES DAY CARE S5[address] ADULT; ADULT ADULT PER 15 DAY CARE DAY CARE MINUTES DAY CARE S5[address] ADULT; ADULT ADULT PER 15 DAY CARE DAY CARE MINUTES DAY CARE S5[address] ADULT; ADULT ADULT PER 15 DAY CARE DAY CARE MINUTES DAY CARE S5[address] ADULT; ADULT ADULT PER 15 DAY CARE DAY CARE MINUTES DAY CARE S5[address] ADULT; ADULT ADULT PER 15 DAY CARE DAY CARE MINUTES DAY CARE S5[address] ADULT; ADULT ADULT PER 15 DAY CARE DAY CARE MINUTES DAY CARE S5[address] ADULT; ADULT ADULT PER 15 DAY CARE DAY CARE MINUTES DAY CARE S5[address] ADULT; ADULT ADULT PER 15 DAY CARE DAY CARE MINUTES DAY CARE S5[address] ADULT; ADULT ADULT PER 15 DAY CARE DAY CARE MINUTES DAY CARE S5[address] ADULT; ADULT ADULT PER 15 DAY CARE DAY CARE MINUTES DAY CARE S5[address] ADULT; ADULT ADULT PER 15 DAY CARE DAY CARE MINUTES OVA&HAVEN 38716 LAB OT[facility] LAB OTIS ITES 4 YFN YFN DIRECT [employer] HOLDINGS SMEARS CONCENTRA TION & ID SMR PRIM [id number] LAB OT[facility] LAB OT[facility] SRC CPLX 4 YFN YFN SPEC HOLDINGS HOLDINGS STAIN OVA&HAVEN ITS DAY CARE S5[address] ADULT; ADULT ADULT PER 15 DAY CARE DAY CARE MINUTES DAY CARE S5[address] ADULT; ADULT ADULT PER 15 DAY CARE DAY CARE MINUTES DAY CARE S5[address] ADULT; ADULT ADULT PER 15 DAY CARE DAY CARE MINUTES DAY CARE S5[address] ADULT; ADULT ADULT PER 15 DAY CARE DAY CARE MINUTES DAY CARE S5[address] ADULT; ADULT ADULT PER 15 DAY CARE DAY CARE MINUTES DAY CARE S5[address] ADULT; ADULT ADULT PER 15 DAY CARE DAY CARE MINUTES DAY CARE S5[address] ADULT; ADULT ADULT PER 15 DAY CARE DAY CARE MINUTES DAY CARE S5100 THE THE SERVICES [address] [place] [address] ADULT; ADULT ADULT PER 15 DAY CARE DAY CARE MINUTES DAY CARE S5[address] ADULT; ADULT ADULT PER 15 DAY CARE DAY CARE MINUTES DAY CARE S5[address] ADULT; ADULT ADULT PER 15 DAY CARE DAY CARE MINUTES DAY CARE S5[address] ADULT; ADULT ADULT PER 15 DAY CARE DAY CARE MINUTES DAY CARE S5[address] ADULT; ADULT ADULT PER 15 DAY CARE DAY CARE MINUTES NONEMERGE A0100 [facility]ANNA[facility]UC[facility] NVY 4 INC TRANSPORT TRANSPORT REGION 9 ATION CO ATION; L TAXI DAY CARE S5100 [address] ADULT; ADULT ADULT PER 15 DAY CARE DAY CARE MINUTES DAY CARE S5[address] ADULT; ADULT ADULT PER 15 DAY CARE DAY CARE MINUTES DAY CARE S5[address] ADULT; ADULT ADULT PER 15 DAY CARE DAY CARE MINUTES DAY CARE S5[address] ADULT; ADULT ADULT PER 15 DAY CARE DAY CARE MINUTES DAY CARE S5[address] ADULT; ADULT ADULT PER 15 DAY CARE DAY CARE MINUTES DAY CARE S[address] ADULT; ADULT ADULT PER 15 DAY CARE DAY CARE MINUTES DAY CARE S[address] ADULT; ADULT ADULT PER 15 DAY CARE DAY CARE MINUTES DAY CARE S5[address] ADULT; ADULT ADULT PER 15 DAY CARE DAY CARE MINUTES DAY CARE S5[address] ADULT; ADULT ADULT PER 15 DAY CARE DAY CARE MINUTES DAY CARE S5[address] ADULT; ADULT ADULT PER 15 DAY CARE DAY CARE MINUTES DAY CARE S[address] ADULT; ADULT ADULT PER 15 DAY CARE DAY CARE MINUTES DAY CARE S5100 THE THE SERVICES [address] [place] [address] ADULT; ADULT ADULT PER 15 DAY CARE DAY CARE MINUTES DAY CARE S5[address] ADULT; ADULT ADULT PER 15 DAY CARE DAY CARE MINUTES DAY CARE S5[address] ADULT; ADULT ADULT PER 15 DAY CARE DAY CARE MINUTES DAY CARE S5[address] ADULT; ADULT ADULT PER 15 DAY CARE DAY CARE MINUTES DAY CARE S[address] ADULT; ADULT ADULT PER 15 DAY CARE DAY CARE MINUTES DAY CARE S5[address] ADULT; ADULT ADULT PER 15 DAY CARE DAY CARE MINUTES DAY CARE S5[address] ADULT; ADULT ADULT PER 15 DAY CARE DAY CARE MINUTES RADEX 18746 RADIOLOGY ADELIA SPINE 4 ARSENIO THORACIC ASSOCIATE [address] [place] [address] RADIOLOGY VISHAL HEAD/BRAI 4 HARISH N W/O ASSOCIATE CONTRAST S OF NOT[place] MATERIAL ECG 18944 [facility] NIV ROUTINE 4 CANDACE ECG W/LEAST PHYSICIAN 12 LDS S EKG I&R ONLY RADEX 25813 RADIOLOGY VISHAL SPINE 4 HARISH LUMBOSACR ASSOCIATE AL 2/[place] [address] RADIOLOGY VISHAL CERVICAL 4 HARISH SPINE W/O ASSOCIATE CONTRAST S OF NOTH MATERIAL DAY CARE S[address] ADULT; ADULT ADULT PER 15 DAY CARE DAY CARE MINUTES DAY CARE S5[address] ADULT; ADULT ADULT PER 15 DAY CARE DAY CARE MINUTES DAY CARE S5100 THE THE SERVICES [address] [place] [address] ADULT; ADULT ADULT PER 15 DAY CARE DAY CARE MINUTES DAY CARE S5100 THE THE SERVICES [address] [place] [address] ADULT; ADULT ADULT PER 15 DAY CARE DAY CARE MINUTES DAY CARE S5100 THE THE SERVICES [address] [place] [address] ADULT; ADULT ADULT PER 15 DAY CARE DAY CARE MINUTES DAY CARE S5100 THE THE SERVICES [address] [place] [address] ADULT; ADULT ADULT PER 15 DAY CARE DAY CARE MINUTES DAY CARE S5100 THE THE SERVICES [address] [place] [address] ADULT; ADULT ADULT PER 15 DAY CARE DAY CARE MINUTES DAY CARE S5100 THE THE SERVICES [address] [place] [address] ADULT; ADULT ADULT PER 15 DAY CARE DAY CARE MINUTES DAY CARE S5100 THE THE SERVICES [address] [place] [address] ADULT; ADULT ADULT PER 15 DAY CARE DAY CARE MINUTES DAY CARE S5100 THE THE SERVICES [address] [place] [address] ADULT; ADULT ADULT PER 15 DAY CARE DAY CARE MINUTES DAY CARE S5100 THE THE SERVICES [address] [place] [address] ADULT; ADULT ADULT PER 15 DAY CARE DAY CARE MINUTES DAY CARE S5100 THE THE SERVICES [address] [place] [address] ADULT; ADULT ADULT PER 15 DAY CARE DAY CARE MINUTES DAY CARE S5100 THE THE SERVICES [address] [place] [address] ADULT; ADULT ADULT PER 15 DAY CARE DAY CARE MINUTES DAY CARE S5[address] ADULT; ADULT ADULT PER 15 DAY CARE DAY CARE MINUTES DAY CARE S5[address] ADULT; ADULT ADULT PER 15 DAY CARE DAY CARE MINUTES DAY CARE S5100 THE THE SERVICES [address] [place] [address] ADULT; ADULT ADULT PER 15 DAY CARE DAY CARE MINUTES DAY CARE S5100 THE THE SERVICES [address] [place] [address] ADULT; ADULT ADULT PER 15 DAY CARE DAY CARE MINUTES DAY CARE S5[address] ADULT; ADULT ADULT PER 15 DAY CARE DAY CARE MINUTES DAY CARE S5100 THE THE SERVICES [address] [place] [address] ADULT; ADULT ADULT PER 15 DAY CARE DAY CARE MINUTES DAY CARE S5100 THE THE SERVICES [address] [place] [address] ADULT; ADULT ADULT PER 15 DAY CARE DAY CARE MINUTES DAY CARE S5100 THE THE SERVICES [address] [place] [address] ADULT; ADULT ADULT PER 15 DAY CARE DAY CARE MINUTES DAY CARE S5100 THE THE SERVICES [address] [place] [address] ADULT; ADULT ADULT PER 15 DAY CARE DAY CARE MINUTES DAY CARE S5[address] ADULT; ADULT ADULT PER 15 DAY CARE DAY CARE MINUTES DAY CARE S[address] ADULT; ADULT ADULT PER 15 DAY CARE DAY CARE MINUTES DAY CARE S5100 THE THE SERVICES [address] [place] [address] ADULT; ADULT ADULT PER 15 DAY CARE DAY CARE MINUTES DAY CARE S5[address] ADULT; ADULT ADULT PER 15 DAY CARE DAY CARE MINUTES DAY CARE S[address] ADULT; ADULT ADULT PER 15 DAY CARE DAY CARE MINUTES DAY CARE S5[address] ADULT; ADULT ADULT PER 15 DAY CARE DAY CARE MINUTES DAY CARE S5[address] ADULT; ADULT ADULT PER 15 DAY CARE DAY CARE MINUTES DAY CARE S5[address] ADULT; ADULT ADULT PER 15 DAY CARE DAY CARE MINUTES DAY CARE S5[address] ADULT; ADULT ADULT PER 15 DAY CARE DAY CARE MINUTES DAY CARE S5[address] ADULT; ADULT ADULT PER 15 DAY CARE DAY CARE MINUTES DAY CARE S5[address] ADULT; ADULT ADULT PER 15 DAY CARE DAY CARE MINUTES DAY CARE S5[address] ADULT; ADULT ADULT PER 15 DAY CARE DAY CARE MINUTES DAY CARE S5[address] ADULT; ADULT ADULT PER 15 DAY CARE DAY CARE MINUTES LIPID 71355 LAB OT[facility] LAB OTIS PANEL 4 YFN YFN [employer] GENERAL 23047 LAB TOIS LAB OTIS HEALTH 4 YFN YFN PANEL [employer] HOLD[employer] HEMOGLOBI 99248 LAB OTIS LAB OTIS N 4 YFN YFN GLYCOSYLA [employer]INGS HOLDINGS JERI A1C DAY CARE S[address] ADULT; ADULT ADULT PER 15 DAY CARE DAY CARE MINUTES DAY CARE S5[address] ADULT; ADULT ADULT PER 15 DAY CARE DAY CARE MINUTES DAY CARE S5[address] ADULT; ADULT ADULT PER 15 DAY CARE DAY CARE MINUTES NONEMERGE A0100 [employer] NCY 4 INC TRANSPORT TRANSPORT REGION 9 [place]Blued [place] ATION; L TAXI DAY CARE S5100 THE [address] ADULT; ADULT ADULT PER 15 DAY CARE DAY CARE MINUTES DAY CARE S5100 THE [address] ADULT; ADULT ADULT PER 15 DAY CARE DAY CARE MINUTES DAY CARE S5[address] ADULT; ADULT ADULT PER 15 DAY CARE DAY CARE MINUTES DAY CARE S5[address] ADULT; ADULT ADULT PER 15 DAY CARE DAY CARE MINUTES DAY CARE S5[address] ADULT; ADULT ADULT PER 15 DAY CARE DAY CARE MINUTES NONEMERGE A0100 [facility] [employer] NVY 4 INC TRANSPORT TRANSPORT REGION 9 [place]Blued [place] ATION; L TAXI EXC B9 95601 [facility] LES MRGN 4 PLASTIC XCP SK TG SURGERY GROUP , F/E/E/N/L /M 1.1-2.0CM REPAIR 90359 [facility] INTERMEDI 4 PLASTIC ATE SURGERY F/E/E/N/L GROUP , &/MUC 2.5 CM/< DAY CARE S5[address] ADULT; ADULT ADULT PER 15 DAY CARE DAY CARE MINUTES DAY CARE S5100 THE [address] ADULT; ADULT ADULT PER 15 DAY CARE DAY CARE MINUTES DAY CARE S5[address] ADULT; ADULT ADULT PER 15 DAY CARE DAY CARE MINUTES DAY CARE S5[address] ADULT; ADULT ADULT PER 15 DAY CARE DAY CARE MINUTES DAY CARE S5[address] ADULT; ADULT ADULT PER 15 DAY CARE DAY CARE MINUTES SIMPLE 35290 [facility] REPAIR 4 CARE LOREN SCALP/NEC PHYS K/AX/TEJINDER NORTHERN T/TRUNK 2.5CM/< DAY CARE S[address] ADULT; ADULT ADULT PER 15 DAY CARE DAY CARE MINUTES DAY CARE S5[address] ADULT; ADULT ADULT PER 15 DAY CARE DAY CARE MINUTES DAY CARE S5[address] ADULT; ADULT ADULT PER 15 DAY CARE DAY CARE MINUTES DAY CARE S5[address] ADULT; ADULT ADULT PER 15 DAY CARE DAY CARE MINUTES DAY CARE S5[address] ADULT; ADULT ADULT PER 15 DAY CARE DAY CARE MINUTES DAY CARE S5[address] ADULT; ADULT ADULT PER 15 DAY CARE DAY CARE MINUTES DIAB ONLY A5500 [facility] [place] FIT CSTM 4 MEDICAL MEDICAL PREP&SPL SUPPLY [employer] DNSITY INSRT FOR DIAB A5512 [place] ONLY MX 4 MEDICAL MEDICAL DNSITY SUPPLY SUPPLY [employer] FORMD PRFAB EA DAY CARE S[address] ADULT; ADULT ADULT PER 15 DAY CARE DAY CARE MINUTES DAY CARE S5[address] ADULT; ADULT ADULT PER 15 DAY CARE DAY CARE MINUTES DAY CARE S5[address] ADULT; ADULT ADULT PER 15 DAY CARE DAY CARE MINUTES DAY CARE S5[address] ADULT; ADULT ADULT PER 15 DAY CARE DAY CARE MINUTES DAY CARE S5[address] ADULT; ADULT ADULT PER 15 DAY CARE DAY CARE MINUTES AMB A0427 VICTORIA VICTORIA SERVICE 4 CO CO ALS AMBULANCE AMBULANCE EMERGENCY TAXIN TAXIN TRANSPORT LEVEL [address] TIKA ROUTINE 4 CANDACE GAR ECG W/LEAST PHYSICIAN 12 LDS S EKG I&R ONLY GROUND A0425 VICTORIA VICTORIA MILEAGE 4 CO CO PER AMBULANCE AMBULANCE STATUTE TAXIN TAXIN MILE ECG 28057 [facility] ROUTINE 4 CANDACE MARIA ECG FT FT W/LEAST CRUZ ARROYO 12 LDS TRCG ONLY W/O I&R THER [address] PROPH/DX 4 CANDACE MARIA NJX IV FT FT PUSH CRUZ ARROYO SINGLE/1S T SBST/DRUG BLOOD [address] COUNT 4 CANDACE MARIA COMPLETE FT FT AUTO&AUTO CRUZ [facility] DIFRNTL WBC BASIC [address]9917 ST METABOLIC 4 CANDACE MARIA PANEL FT FT CALCIUM CRUZ AR[facility] TOTAL GLUC BLD 52050 ST GLUC MNTR 4 CANDACE MARIA DEV FT FT CLEARED CRUZ ARRO[facility] FDA SPEC HOME USE COLLECTIO 85527 ST N VENOUS 4 CANDACE MARIA BLOOD FT FT VENIPUNCT CRUZ [facility]RO[facility] URE DAY CARE S[address] ADULT; ADULT ADULT PER 15 DAY CARE DAY CARE MINUTES DAY CARE S[address] ADULT; ADULT ADULT PER 15 DAY CARE DAY CARE MINUTES DAY CARE S[address] ADULT; ADULT ADULT PER 15 DAY CARE DAY CARE MINUTES DAY CARE S[address] ADULT; ADULT ADULT PER 15 DAY CARE DAY CARE MINUTES DAY CARE S[address] ADULT; ADULT ADULT PER 15 DAY CARE DAY CARE MINUTES DAY CARE S[address] ADULT; ADULT ADULT PER 15 DAY CARE DAY CARE MINUTES NONEMERGE A0100 [facility] TRANSPORT TRANSPORT REGION 9 [place] ATION; L TAXI DAY CARE S[address] ADULT; ADULT ADULT PER 15 DAY CARE DAY CARE MINUTES DAY CARE S[address] ADULT; ADULT ADULT PER 15 DAY CARE DAY CARE MINUTES DAY CARE S[address] ADULT; ADULT ADULT PER 15 DAY CARE DAY CARE MINUTES DAY CARE S5100 THE THE SERVICES [address] [place] [address] ADULT; ADULT ADULT PER 15 DAY CARE DAY CARE MINUTES DAY CARE S5100 THE THE SERVICES [address] [place] [address] ADULT; ADULT ADULT PER 15 DAY CARE DAY CARE MINUTES NONEMERGE A0100 [facility] [employer] NCY 4 INC TRANSPORT TRANSPORT REGION 9 [place] ATION; L TAXI RADEX 74752 [facility] SPINE 4 MEGHNA LUMBOSACR ASSOCIATE AL 2/3 S [facility] DAY CARE S5100 THE THE SERVICES [address] [place] [address] ADULT; ADULT ADULT PER 15 DAY CARE DAY CARE MINUTES DAY CARE S5100 THE THE SERVICES [address] [place] [address] ADULT; ADULT ADULT PER 15 DAY CARE DAY CARE MINUTES DAY CARE S5100 THE THE SERVICES [address] [place] [address] ADULT; ADULT ADULT PER 15 DAY CARE DAY CARE MINUTES DAY CARE S5100 THE THE SERVICES [address] [place] [address] ADULT; ADULT ADULT PER 15 DAY CARE DAY CARE MINUTES DAY CARE S5100 THE THE SERVICES [address] [place] [address] ADULT; ADULT ADULT PER 15 DAY CARE DAY CARE MINUTES DAY CARE S5100 THE THE SERVICES [address] [place] [address] ADULT; ADULT ADULT PER 15 DAY CARE DAY CARE MINUTES NONEMERGE A0100 [facility] [employer] [facility] 4 INC TRANSPORT TRANSPORT REGION 9 ATION CO ATION; L [facility]AX[place] DAY CARE S5[address] ADULT; ADULT ADULT PER 15 DAY CARE DAY CARE MINUTES DAY CARE S5100 THE THE SERVICES [address] [place] [address] ADULT; ADULT ADULT PER 15 DAY CARE DAY CARE MINUTES DAY CARE S5100 THE THE SERVICES [address] [place] [address] ADULT; ADULT ADULT PER 15 DAY CARE DAY CARE MINUTES DAY CARE S5100 THE THE SERVICES [address] [place] [address] ADULT; ADULT ADULT PER 15 DAY CARE DAY CARE MINUTES DAY CARE S5[address] THE THE [address] ADULT; ADULT ADULT PER 15 DAY CARE DAY CARE MINUTES DAY CARE S5100 THE THE SERVICES [address] [place] [address] ADULT; ADULT ADULT PER 15 DAY CARE DAY CARE MINUTES DAY CARE S5100 THE [address] ADULT; ADULT ADULT PER 15 DAY CARE DAY CARE MINUTES DAY CARE S5100 THE THE SERVICES [address] [place] [address] ADULT; ADULT ADULT PER 15 DAY CARE DAY CARE MINUTES DAY CARE S5100 THE THE SERVICES [address] [place] [address] ADULT; ADULT ADULT PER 15 DAY CARE DAY CARE MINUTES DAY CARE S5100 THE THE SERVICES [address] [place] [address] ADULT; ADULT ADULT PER 15 DAY CARE DAY CARE MINUTES DAY CARE S5100 THE THE SERVICES [address] [place] [address] ADULT; ADULT ADULT PER 15 DAY CARE DAY CARE MINUTES DAY CARE S5100 THE THE SERVICES [address] [place] [address] ADULT; ADULT ADULT PER 15 DAY CARE DAY CARE MINUTES DAY CARE S5100 THE THE SERVICES [address] [place] [address] ADULT; ADULT ADULT PER 15 DAY CARE DAY CARE MINUTES DAY CARE S5100 THE THE SERVICES [address] [place] [address] ADULT; ADULT ADULT PER 15 DAY CARE DAY CARE MINUTES DAY CARE S5100 [address] ADULT; ADULT ADULT PER 15 DAY CARE DAY CARE MINUTES DAY CARE S5100 THE THE SERVICES [address] [place] [address] ADULT; ADULT ADULT PER 15 DAY CARE DAY CARE MINUTES DAY CARE S5100 [address] ADULT; ADULT ADULT PER 15 DAY CARE DAY CARE MINUTES DAY CARE S5100 THE [address] ADULT; ADULT ADULT PER 15 DAY CARE DAY CARE MINUTES DAY CARE S5100 [address] ADULT; ADULT ADULT PER 15 DAY CARE DAY CARE MINUTES DAY CARE S5[address] ADULT; ADULT ADULT PER 15 DAY CARE DAY CARE MINUTES DAY CARE S5100 THE [address] ADULT; ADULT ADULT PER 15 DAY CARE DAY CARE MINUTES DAY CARE S5[address] ADULT; ADULT ADULT PER 15 DAY CARE DAY CARE MINUTES DAY CARE S5[address] ADULT; ADULT ADULT PER 15 DAY CARE DAY CARE MINUTES DAY CARE S5100 THE THE SERVICES [address] [place] [address] ADULT; ADULT ADULT PER 15 DAY CARE DAY CARE MINUTES DAY CARE S5[address] ADULT; ADULT ADULT PER 15 DAY CARE DAY CARE MINUTES DAY CARE S5100 THE THE SERVICES [address] [place] [address] ADULT; ADULT ADULT PER 15 DAY CARE DAY CARE MINUTES DAY CARE S5100 THE THE SERVICES [address] [place] [address] ADULT; ADULT ADULT PER 15 DAY CARE DAY CARE MINUTES DAY CARE S5100 THE THE SERVICES [address] [place] [address] ADULT; ADULT ADULT PER 15 DAY CARE DAY CARE MINUTES DAY CARE S5100 THE THE SERVICES [address] [place] [address] ADULT; ADULT ADULT PER 15 DAY CARE DAY CARE MINUTES DAY CARE S5100 THE THE SERVICES [address] [place] [address] ADULT; ADULT ADULT PER 15 DAY CARE DAY CARE MINUTES DAY CARE S5100 THE THE SERVICES [address] [place] [address] ADULT; ADULT ADULT PER 15 DAY CARE DAY CARE MINUTES DAY CARE S5100 THE THE SERVICES [address] [place] [address] ADULT; ADULT ADULT PER 15 DAY CARE DAY CARE MINUTES DAY CARE S5100 THE THE SERVICES [address] [place] [address] ADULT; ADULT ADULT PER 15 DAY CARE DAY CARE MINUTES DAY CARE S5100 THE THE SERVICES [address] [place] [address] ADULT; ADULT ADULT PER 15 DAY CARE DAY CARE MINUTES DAY CARE S[address] ADULT; ADULT ADULT PER 15 DAY CARE DAY CARE MINUTES DAY CARE S5[address] ADULT; ADULT ADULT PER 15 DAY CARE DAY CARE MINUTES DAY CARE S[address] ADULT; ADULT ADULT PER 15 DAY CARE DAY CARE MINUTES DAY CARE S[address] ADULT; ADULT ADULT PER 15 DAY CARE DAY CARE MINUTES DAY CARE S5100 THE THE SERVICES [address] [place] [address] ADULT; ADULT ADULT PER 15 DAY CARE DAY CARE MINUTES DAY CARE S5100 THE THE SERVICES [address] [place] [address] ADULT; ADULT ADULT PER 15 DAY CARE DAY CARE MINUTES DAY CARE S5100 THE THE SERVICES [address] [place] [address] ADULT; ADULT ADULT PER 15 DAY CARE DAY CARE MINUTES DAY CARE S5100 THE THE SERVICES [address] [place] [address] ADULT; ADULT ADULT PER 15 DAY CARE DAY CARE MINUTES DAY CARE S5[address] ADULT; ADULT ADULT PER 15 DAY CARE DAY CARE MINUTES DAY CARE S5[address] ADULT; ADULT ADULT PER 15 DAY CARE DAY CARE MINUTES DAY CARE S5[address] ADULT; ADULT ADULT PER 15 DAY CARE DAY CARE MINUTES DAY CARE S5[address] ADULT; ADULT ADULT PER 15 DAY CARE DAY CARE MINUTES DAY CARE S5[address] ADULT; ADULT ADULT PER 15 DAY CARE DAY CARE MINUTES DAY CARE S5[address] ADULT; ADULT ADULT PER 15 DAY CARE DAY CARE MINUTES DAY CARE S5[address] ADULT; ADULT ADULT PER 15 DAY CARE DAY CARE MINUTES DAY CARE S5[address] ADULT; ADULT ADULT PER 15 DAY CARE DAY CARE MINUTES DAY CARE S5[address] ADULT; ADULT ADULT PER 15 DAY CARE DAY CARE MINUTES DAY CARE S[address] ADULT; ADULT ADULT PER 15 DAY CARE DAY CARE MINUTES DAY CARE S5[address] ADULT; ADULT ADULT PER 15 DAY CARE DAY CARE MINUTES DAY CARE S5[address] ADULT; ADULT ADULT PER 15 DAY CARE DAY CARE MINUTES DAY CARE S5[address] ADULT; ADULT ADULT PER 15 DAY CARE DAY CARE MINUTES NONEMERGE A0100 [facility] 4 INC TRANSPORT TRANSPORT REGION 9 ATION CO ATION; L TAXI MAMMOGRAP [address] HY 4 CANDACE MARIA BILATERAL FT FT [facility] DIAGNOSTI [id number] RADIOLOGY SAMUEL C 4 GAR MAMMOGRAP ASSOCIATE HY INCL S OF [facility] CAD WHEN PERF; BILAT COMPUTER- 09565 RADIOLOGY SAMUEL AIDED 4 GAR DETECTION ASSOCIATE DX S OF [facility] MAMMOGRAP HY DAY CARE S[address] ADULT; ADULT ADULT PER 15 DAY CARE DAY CARE MINUTES DAY CARE S5[address] ADULT; ADULT ADULT PER 15 DAY CARE DAY CARE MINUTES DAY CARE S5[address] ADULT; ADULT ADULT PER 15 DAY CARE DAY CARE MINUTES DAY CARE S5[address] ADULT; ADULT ADULT PER 15 DAY CARE DAY CARE MINUTES DAY CARE S5[address] ADULT; ADULT ADULT PER 15 DAY CARE DAY CARE MINUTES DAY CARE S5100 THE THE SERVICES [address] [place] [address] ADULT; ADULT ADULT PER 15 DAY CARE DAY CARE MINUTES NONEMERGE A0100 [facility] NCY 4 INC TRANSPORT TRANSPORT REGION 9 ATION CO ATION; L TAXI NONEMERGE A0100 [facility] NCY 4 INC TRANSPORT TRANSPORT REGION 9 ATION CO ATION; L TAXI DAY CARE S5100 [address] ADULT; ADULT ADULT PER 15 DAY CARE DAY CARE MINUTES DAY CARE S5100 [address] ADULT; ADULT ADULT PER 15 DAY CARE DAY CARE MINUTES DAY CARE S5[address] ADULT; ADULT ADULT PER 15 DAY CARE DAY CARE MINUTES DAY CARE S5[address] ADULT; ADULT ADULT PER 15 DAY CARE DAY CARE MINUTES DAY CARE S5[address] ADULT; ADULT ADULT PER 15 DAY CARE DAY CARE MINUTES DAY CARE S5[address] ADULT; ADULT ADULT PER 15 DAY CARE DAY CARE MINUTES SKIN TEST 21625 [facility] 4 CANDACE CORONA TUBERCULO SIS PHYSICIAN INTRADERM S AL DAY CARE S5[address] ADULT; ADULT ADULT PER 15 DAY CARE DAY CARE MINUTES DAY CARE S5[address] ADULT; ADULT ADULT PER 15 DAY CARE DAY CARE MINUTES DAY CARE S5[address] ADULT; ADULT ADULT PER 15 DAY CARE DAY CARE MINUTES DAY CARE S5[address] ADULT; ADULT ADULT PER 15 DAY CARE DAY CARE MINUTES DETERMINA 36012 REHANA RODRIGUEZ TION 4 NOLVIA, REFRACTIV OD, PSC E STATE OPHTH 81855 REHANA RODRIGUEZ MEDICAL 4 NOLVIA, XM&EVAL OD, PSC COMPRE NEW PT 1/> VST DAY CARE S5[address] ADULT; ADULT ADULT PER 15 DAY CARE DAY CARE MINUTES DAY CARE S5[address] ADULT; ADULT ADULT PER 15 DAY CARE DAY CARE MINUTES DAY CARE S5100 THE THE SERVICES [address] [place] [address] ADULT; ADULT ADULT PER 15 DAY CARE DAY CARE MINUTES DAY CARE S5[address] ADULT; ADULT ADULT PER 15 DAY CARE DAY CARE MINUTES DAY CARE S5[address] ADULT; ADULT ADULT PER 15 DAY CARE DAY CARE MINUTES DAY CARE S5[address] ADULT; ADULT ADULT PER 15 DAY CARE DAY CARE MINUTES DAY CARE S5100 THE THE SERVICES [address] [place] [address] ADULT; ADULT ADULT PER 15 DAY CARE DAY CARE MINUTES DAY CARE S5[address] ADULT; ADULT ADULT PER 15 DAY CARE DAY CARE MINUTES DAY CARE S5[address] ADULT; ADULT ADULT PER 15 DAY CARE DAY CARE MINUTES DAY CARE S5[address] ADULT; ADULT ADULT PER 15 DAY CARE DAY CARE MINUTES DAY CARE S5[address] ADULT; ADULT ADULT PER 15 DAY CARE DAY CARE MINUTES DAY CARE S5100 THE THE SERVICES [address] [place] [address] ADULT; ADULT ADULT PER 15 DAY CARE DAY CARE MINUTES DAY CARE S5[address] ADULT; ADULT ADULT PER 15 DAY CARE DAY CARE MINUTES DAY CARE S5[address] ADULT; ADULT ADULT PER 15 DAY CARE DAY CARE MINUTES DAY CARE S5[address] ADULT; ADULT ADULT PER 15 DAY CARE DAY CARE MINUTES DAY CARE S[address] ADULT; ADULT ADULT PER 15 DAY CARE DAY CARE MINUTES DAY CARE S[address] ADULT; ADULT ADULT PER 15 DAY CARE DAY CARE MINUTES [address] HYDROXY 4 CANDACE CANDACE INCLUDES MED CTR MED CTR FRACTIONS ENVIRONMENTAL SCIENCES PROFESSOR ST ENVIRONMENTAL SCIENCES PROFESSOR ST IF PERFORMED DAY CARE S[address] ADULT; ADULT ADULT PER 15 DAY CARE DAY CARE MINUTES DAY CARE S5[address] ADULT; ADULT ADULT PER 15 DAY CARE DAY CARE MINUTES ECG [address] ST TIKA ROUTINE 4 CANDACE GAR ECG W/LEAST PHYSICIAN 12 LDS S EKG I&R ONLY MYOCARDIA 41258 ST BLAYNE MOH L SPECT 4 CANDACE MULTIPLE STUDIES PHYSICIAN S CV STRS 50337 ST BLAYNE MOH TST 4 CANDACE XERS&/OR RX CONT PHYSICIAN ECG W/O S I&R CV STRS 34122 ST BLAYNE MOH TST 4 CANDACE XERS&/OR RX CONT PHYSICIAN ECG I&R S ONLY ECG [address]254 ST TIKA ROUTINE 4 CANDACE GAR ECG W/LEAST PHYSICIAN 12 LDS S EKG I&R ONLY ECG [address]4314 ST TIKA ROUTINE 4 CANDACE GAR ECG W/LEAST PHYSICIAN 12 LDS S EKG I&R ONLY AMB A0427 VICTORIA VICTORIA SERVICE 4 CO CO ALS AMBULANCE AMBULANCE EMERGENCY TAXIN TAXIN TRANSPORT LEVEL 1 RADIOLOGI 68648 RADIOLOGY HAMZAH C EXAM 4 TUS CHEST 2 ASSOCIATE VIEWS S OF [facility] FRONTAL&L ATERAL GROUND A0425 VICTORIA VICTORIA MILEAGE 4 CO CO PER AMBULANCE AMBULANCE STATUTE TAXIN TAXIN MILE MRI BRAIN [address] BRAIN 4 CANDACE CANDACE STEM W/O FT FT W/CONTRAS CRUZ CRUZ T MATERIAL ECHO [address] TTHRC R-T 4 CANDACE CANDACE 2D FT FT W/WOM-MOD CRUZ PRICE SPEC&COLR D DAY CARE S5[address] ADULT; ADULT ADULT PER 15 DAY CARE DAY CARE MINUTES DAY CARE S5100 THE THE SERVICES [address] [place] [address] ADULT; ADULT ADULT PER 15 DAY CARE DAY CARE MINUTES DAY CARE S5100 THE THE SERVICES [address] [place] [address] ADULT; ADULT ADULT PER 15 DAY CARE DAY CARE MINUTES DAY CARE S5100 THE THE SERVICES [address] [place] [address] ADULT; ADULT ADULT PER 15 DAY CARE DAY CARE MINUTES DAY CARE S5100 THE THE SERVICES [address] [place] [address] ADULT; ADULT ADULT PER 15 DAY CARE DAY CARE MINUTES DAY CARE S5100 THE THE SERVICES [address] [place] [address] ADULT; ADULT ADULT PER 15 DAY CARE DAY CARE MINUTES DAY CARE S5[address] ADULT; ADULT ADULT PER 15 DAY CARE DAY CARE MINUTES DAY CARE S5[address] ADULT; ADULT ADULT PER 15 DAY CARE DAY CARE MINUTES DAY CARE S5[address] ADULT; ADULT ADULT PER 15 DAY CARE DAY CARE MINUTES DAY CARE S5[address] ADULT; ADULT ADULT PER 15 DAY CARE DAY CARE MINUTES DAY CARE S5[address] ADULT; ADULT ADULT PER 15 DAY CARE DAY CARE MINUTES DAY CARE S5[address] ADULT; ADULT ADULT PER 15 DAY CARE DAY CARE MINUTES DAY CARE S5[address] ADULT; ADULT ADULT PER 15 DAY CARE DAY CARE MINUTES DAY CARE S5[address] ADULT; ADULT ADULT PER 15 DAY CARE DAY CARE MINUTES DAY CARE S5[address] ADULT; ADULT ADULT PER 15 DAY CARE DAY CARE MINUTES DAY CARE S[address] ADULT; ADULT ADULT PER 15 DAY CARE DAY CARE MINUTES DAY CARE S5100 THE THE SERVICES [address] [place] [address] ADULT; ADULT ADULT PER 15 DAY CARE DAY CARE MINUTES DAY CARE S5100 THE THE SERVICES [address] [place] [address] ADULT; ADULT ADULT PER 15 DAY CARE DAY CARE MINUTES NONEMERGE A0100 [facility] NCY 4 INC TRANSPORT TRANSPORT REGION 9 ATION CO ATION; L TAXI RADEX 54733 ARBEN GARDINER FINGR 4 LT ER MAT MINIMUM 2 [facility] DAY CARE S[address] ADULT; ADULT ADULT PER 15 DAY CARE DAY CARE MINUTES DAY CARE S5100 THE THE SERVICES 4 [facility] ADULT; ADULT ADULT PER 15 DAY CARE DAY CARE MINUTES DAY CARE S5100 THE THE SERVICES [address] [place] [address] ADULT; ADULT ADULT PER 15 DAY CARE DAY CARE MINUTES DAY CARE S5[address] ADULT; ADULT ADULT PER 15 DAY CARE DAY CARE MINUTES DAY CARE S5[address] ADULT; ADULT ADULT PER 15 DAY CARE DAY CARE MINUTES DAY CARE S5[address] ADULT; ADULT ADULT PER 15 DAY CARE DAY CARE MINUTES DAY CARE S5100 THE THE SERVICES [address] [place] [address] ADULT; ADULT ADULT PER 15 DAY CARE DAY CARE MINUTES GROUND A0425 VICTORIA VICTORIA MILEAGE 3 CO CO PER AMBULANCE AMBULANCE STATUTE TAXIN TAXIN MILE AMBULANCE A0429 VICTORIA VICTORIA SERVICE 3 CO CO BLS AMBULANCE AMBULANCE EMERGENCY TAXIN TAXIN TRANSPORT RADEX 70111 RADIOLOGY ROEBKER SPINE 3 JAM LUMBOSACR ASSOCIATE AL 2/3 S OF [facility] DAY CARE S5100 THE THE SERVICES [address] [place] [address] ADULT; ADULT ADULT PER 15 DAY CARE DAY CARE MINUTES DAY CARE S5100 THE THE SERVICES [address] [place] [address] ADULT; ADULT ADULT PER 15 DAY CARE DAY CARE MINUTES DAY CARE S5[address] ADULT; ADULT ADULT PER 15 DAY CARE DAY CARE MINUTES DAY CARE S5100 THE THE SERVICES [address] [place] [address] ADULT; ADULT ADULT PER 15 DAY CARE DAY CARE MINUTES DAY CARE S5[address] ADULT; ADULT ADULT PER 15 DAY CARE DAY CARE MINUTES DAY CARE S5100 THE THE SERVICES 3 [facility] ADULT; ADULT ADULT PER 15 DAY CARE DAY CARE MINUTES DAY CARE S5100 THE THE SERVICES 3 [facility] ADULT; ADULT ADULT PER 15 DAY CARE DAY CARE MINUTES DAY CARE S5100 THE THE SERVICES 3 [facility] ADULT; ADULT ADULT PER 15 DAY CARE DAY CARE MINUTES DAY CARE S5100 THE THE SERVICES 3 [facility] ADULT; ADULT ADULT PER 15 DAY CARE DAY CARE MINUTES DAY CARE S5100 THE THE SERVICES 3 [facility] ADULT; ADULT ADULT PER 15 DAY CARE DAY CARE MINUTES DAY CARE S5100 THE THE SERVICES 3 [facility] ADULT; ADULT ADULT PER 15 DAY CARE DAY CARE MINUTES DAY CARE S5100 THE THE SERVICES [address] [place] [address] ADULT; ADULT ADULT PER 15 DAY CARE DAY CARE MINUTES DAY CARE S5100 THE THE SERVICES [address] [place] [address] ADULT; ADULT ADULT PER 15 DAY CARE DAY CARE MINUTES DAY CARE S5100 THE THE SERVICES [address] [place] [address] ADULT; ADULT ADULT PER 15 DAY CARE DAY CARE MINUTES DAY CARE S5100 THE THE SERVICES [address] [place] [address] ADULT; ADULT ADULT PER 15 DAY CARE DAY CARE MINUTES DAY CARE S5[address] ADULT; ADULT ADULT PER 15 DAY CARE DAY CARE MINUTES RADEX 39338 AR[facility]EN [facility] 3 [facility] ER MAT MINIMUM 2 ORTHOPAE VIEWS DAY CARE S5100 THE [address] ADULT; ADULT ADULT PER 15 DAY CARE DAY CARE MINUTES DAY CARE S5[address] ADULT; ADULT ADULT PER 15 DAY CARE DAY CARE MINUTES DAY CARE S5100 THE [address] ADULT; ADULT ADULT PER 15 DAY CARE DAY CARE MINUTES DAY CARE S5[address] ADULT; ADULT ADULT PER 15 DAY CARE DAY CARE MINUTES DAY CARE S5[address] ADULT; ADULT ADULT PER 15 [place] [address] [place] [address] CANDACE MARIA FT FT CRUZ ARROYO COLLECTIO [address] N VENOUS 3 CANDACE MARIA BLOOD FT FT VENIPUNCT CRUZ ARROYO URE DAY CARE S5[address] ADULT; ADULT ADULT PER 15 DAY CARE DAY CARE MINUTES DAY CARE S5100 [address] ADULT; ADULT ADULT PER 15 DAY CARE DAY CARE MINUTES DAY CARE S5[address] ADULT; ADULT ADULT PER 15 DAY CARE DAY CARE MINUTES DAY CARE S5[address] ADULT; ADULT ADULT PER 15 DAY CARE DAY CARE MINUTES PRQ SKEL 84937 [facility] ABDIFATAH FIXJ DSTL 3 LTH ER MAT PHLNGL ORTHOPAE FX FNGR/THMB EA ANES 81360 INDEPENDE MASROOR ARTHRS/EN 3 NT ALA DSCPY ANESTHESI DSTL OLOGIST RADIUS ULNA/WRIS T/HAND DAY CARE S[address] ADULT; ADULT ADULT PER 15 DAY CARE DAY CARE MINUTES DAY CARE S[address] ADULT; ADULT ADULT PER 15 DAY CARE DAY CARE MINUTES NONEMERGE A0100 [facility] NCY 3 INC TRANSPORT TRANSPORT REGION 9 ATION CO ATION; L TAXI INFLUENZA 19181 ST AN VACC 3 CANDACE TILLMAN CHLOE IIV3 SPLIT PHYSICIAN VIRUS S PRSRV FREE ID HEMOGLOBI [id number] N 3 CANDACE MARIA GLYCOSYLA JERI A1C PHYSICIAN PHYSICIAN S S DAY CARE S[address] ADULT; ADULT ADULT PER 15 DAY CARE DAY CARE MINUTES DAY CARE S[address] ADULT; ADULT ADULT PER 15 DAY CARE DAY CARE MINUTES NONEMERGE A0100 LKLP [facility] NCY 3 INC TRANSPORT TRANSPORT REGION 9 ATION CO ATION; L TAXI RADEX 98059 [facility] ABDIFATAH FINGR 3 LTH ER MAT MINIMUM 2 ORTHOPAE VIEWS DAY CARE S5100 THE THE SERVICES 3 [facility] ADULT; ADULT ADULT PER 15 DAY CARE DAY CARE MINUTES DAY CARE S5100 THE THE SERVICES 3 [facility] ADULT; ADULT ADULT PER 15 DAY CARE DAY CARE MINUTES DAY CARE S5100 THE THE SERVICES 3 [facility] ADULT; ADULT ADULT PER 15 DAY CARE DAY CARE MINUTES DAY CARE S5100 THE THE SERVICES 3 [facility] ADULT; ADULT ADULT PER 15 DAY CARE DAY CARE MINUTES DAY CARE S5100 THE THE SERVICES 3 [facility] ADULT; ADULT ADULT PER 15 DAY CARE DAY CARE MINUTES DAY CARE S5100 THE THE SERVICES 3 [facility] ADULT; ADULT ADULT PER 15 DAY CARE DAY CARE MINUTES DAY CARE S5100 THE THE SERVICES [address] [place] [address] ADULT; ADULT ADULT PER 15 DAY CARE DAY CARE MINUTES DAY CARE S5100 THE THE SERVICES [address] [place] [address] ADULT; ADULT ADULT PER [address] [place] [address] RADIOLOGY VISHAL HEAD/BRAI 3 HARISH N W/O ASSOCIATE CONTRAST S OF [facility] MATERIAL AMB A0427 VICTORIA VICTORIA SERVICE 3 CO CO ALS AMBULANCE AMBULANCE EMERGENCY TAXIN TAXIN TRANSPORT LEVEL 1 ECG 71745 [facility] ROUTINE 3 CANDACE PEG ECG W/LEAST PHYSICIAN 12 LDS S EKG I&R ONLY GROUND A0425 VICTORIA VICTORIA MILEAGE 3 CO CO PER AMBULANCE AMBULANCE STATUTE TAXIN TAXIN MILE RADIOLOGI 53296 RADIOLOGY VISHAL C EXAM 3 HARISH CHEST 2 ASSOCIATE VIEWS S OF [facility] FRONTAL&L ATERAL DAY CARE S5100 THE THE SERVICES 3 [facility] ADULT; ADULT ADULT PER 15 DAY CARE DAY CARE MINUTES DAY CARE S5[address] ADULT; ADULT ADULT PER 15 DAY CARE DAY CARE MINUTES DAY CARE S5[address] ADULT; ADULT ADULT PER 15 DAY CARE DAY CARE MINUTES DAY CARE S5100 THE THE SERVICES [address] [place] [address] ADULT; ADULT ADULT PER 15 DAY CARE DAY CARE MINUTES DAY CARE S[address] ADULT; ADULT ADULT PER 15 DAY CARE DAY CARE MINUTES DAY CARE S5[address] ADULT; ADULT ADULT PER 15 DAY CARE DAY CARE MINUTES DAY CARE S[address] ADULT; ADULT ADULT PER 15 DAY CARE DAY CARE MINUTES ECG [address] ST GLYNN NIV ROUTINE 3 CANDACE ECG W/LEAST PHYSICIAN 12 LDS S EKG I&R ONLY AMB A0427 VICTORIA VICTORIA SERVICE 3 CO CO ALS AMBULANCE AMBULANCE EMERGENCY [place] [address] RADIOLOGY HAMZAH HEAD/BRAI 3 TUS N W/O ASSOCIATE CONTRAST S OF [facility] MATERIAL GROUND A0425 VICTORIA VICTORIA MILEAGE 3 CO CO PER AMBULANCE AMBULANCE STATUTE TAXIN TAXIN MILE DAY CARE S[address] ADULT; ADULT ADULT PER 15 DAY CARE DAY CARE MINUTES DAY CARE S5[address] ADULT; ADULT ADULT PER 15 DAY CARE DAY CARE MINUTES DAY CARE S5[address] ADULT; ADULT ADULT PER 15 DAY CARE DAY CARE MINUTES DAY CARE S5[address] ADULT; ADULT ADULT PER 15 DAY CARE DAY CARE MINUTES DAY CARE S5100 [address] ADULT; ADULT ADULT PER 15 DAY CARE DAY CARE MINUTES NONEMERGE A0100 LP CAC REYES NCY 3 [facility] TRANSPORT TRANSPORT REGION 9 ATION CO ATION; L TAXI CLTX DSTL 82738 [facility] GRUNKEMEY PHLNGL 3 LTH ER MAT FX ORTHOPAE FNGR/THMB W/O MANJ EA DAY CARE S[address] ADULT; ADULT ADULT PER 15 DAY CARE DAY CARE MINUTES DAY CARE S5100 [address] ADULT; ADULT ADULT PER 15 DAY CARE DAY CARE MINUTES DAY CARE S5[address] ADULT; ADULT ADULT PER 15 DAY CARE DAY CARE MINUTES DAY CARE S5[address] ADULT; ADULT ADULT PER 15 DAY CARE DAY CARE MINUTES DAY CARE S5100 THE THE SERVICES [address] [place] [address] ADULT; ADULT ADULT PER 15 DAY CARE DAY CARE MINUTES DAY CARE S[address] ADULT; ADULT ADULT PER 15 DAY CARE DAY CARE MINUTES DAY CARE S5[address] ADULT; ADULT ADULT PER 15 DAY CARE DAY CARE MINUTES GROUND A0425 PAKISTANI PAKISTANI MILEAGE 3 AMBULETTE AMBULETTE PER AND AND STATUTE AMBUL AMBUL MILE AMBULANCE A0429 PAKISTANI PAKISTANI SERVICE 3 AMBULETTE AMBULETTE BLS AND AND EMERGENCY AMBUL AMBUL TRANSPORT RADEX 51020 RADIOLOGY [facility] 3 ASSOCIATE VIEWS S OF [facility] DAY CARE S[address] ADULT; ADULT ADULT PER 15 DAY CARE DAY CARE MINUTES DAY CARE S5[address] ADULT; ADULT ADULT PER 15 DAY CARE DAY CARE MINUTES DAY CARE S5[address] ADULT; ADULT ADULT PER 15 DAY CARE DAY CARE MINUTES DAY CARE S5[address] ADULT; ADULT ADULT PER 15 DAY CARE DAY CARE MINUTES DAY CARE S5[address] ADULT; ADULT ADULT PER 15 DAY CARE DAY CARE MINUTES DAY CARE S5100 [facility] [address] ADULT; ADULT ADULT PER 15 DAY CARE DAY CARE MINUTES DAY CARE S5100 [facility] [address] ADULT; ADULT ADULT PER 15 DAY CARE DAY CARE MINUTES DAY CARE S[address]100 [facility] [address] ADULT; ADULT ADULT PER 15 DAY CARE DAY CARE MINUTES DAY CARE S[address] ADULT; ADULT ADULT PER 15 DAY CARE DAY CARE MINUTES DAY CARE S[address] [facility] [address] ADULT; ADULT ADULT PER 15 DAY CARE DAY CARE MINUTES DAY CARE S[address] [facility] [address] ADULT; ADULT ADULT PER 15 DAY CARE DAY CARE MINUTES DAY CARE S[address] [facility] [address] ADULT; ADULT ADULT PER 15 DAY CARE DAY CARE MINUTES DAY CARE S5100 THE THE [facility] ADULT; ADULT ADULT PER 15 DAY CARE DAY CARE MINUTES DAY CARE S5100 THE THE [facility] ADULT; ADULT ADULT PER 15 DAY CARE DAY CARE MINUTES DAY CARE S5100 THE THE SERVICES [address] [place] [address] ADULT; ADULT ADULT PER 15 DAY CARE DAY CARE MINUTES DAY CARE S5100 THE THE SERVICES [address] [place] [address] ADULT; ADULT ADULT PER 15 DAY CARE DAY CARE MINUTES DAY CARE S5100 THE THE SERVICES [address] [place] [address] ADULT; ADULT ADULT PER 15 DAY CARE DAY CARE MINUTES DAY CARE S[address] ADULT; ADULT ADULT PER 15 DAY CARE DAY CARE MINUTES DAY CARE S5100 [facility] [address] ADULT; ADULT ADULT PER 15 DAY CARE DAY CARE MINUTES AMB [id number] VICTORIA VICTORIA SERVICE 3 CO CO ALS AMBULANCE AMBULANCE EMERGENCY TAXIN TAXIN TRANSPORT LEVEL 1 ECG [id number] LEONEL COBOS ROUTINE 3 EMERGENCY ECG SERVICES W/LEAST 12 LDS I&R ONLY GROUND [id number] VICTORIA VICTORIA MILEAGE 3 CO CO PER AMBULANCE AMBULANCE STATUTE TAXIN TAXIN MILE DAY CARE S[address] ADULT; ADULT ADULT PER 15 DAY CARE DAY CARE MINUTES DAY CARE S[address] ADULT; ADULT ADULT PER 15 DAY CARE DAY CARE MINUTES DAY CARE S[address] ADULT; ADULT ADULT PER 15 DAY CARE DAY CARE MINUTES DAY CARE S5100 THE [address] ADULT; ADULT ADULT PER 15 DAY CARE DAY CARE MINUTES DAY CARE S5100 THE [address] ADULT; ADULT ADULT PER 15 DAY CARE DAY CARE MINUTES DAY CARE S5100 THE [address] ADULT; ADULT ADULT PER 15 DAY CARE DAY CARE MINUTES DAY CARE S5100 THE [address] ADULT; ADULT ADULT PER 15 DAY CARE DAY CARE MINUTES GROUND A0425 VICTORIA VICTORIA MILEAGE 3 CO CO PER AMBULANCE AMBULANCE STATUTE TAXIN TAXIN MILE AMBULANCE A0429 VICTORIA VICTORIA SERVICE 3 CO CO BLS AMBULANCE AMBULANCE EMERGENCY TAXIN TAXIN TRANSPORT DAY CARE S5100 [address] ADULT; ADULT ADULT PER 15 DAY CARE DAY CARE MINUTES DAY CARE S5100 THE [address] ADULT; ADULT ADULT PER 15 DAY CARE DAY CARE MINUTES DAY CARE S5100 THE [address] ADULT; ADULT ADULT PER 15 DAY CARE DAY CARE MINUTES DAY CARE S5100 THE [address] ADULT; ADULT ADULT PER 15 DAY CARE DAY CARE MINUTES DAY CARE S5100 THE [address] ADULT; ADULT ADULT PER 15 DAY CARE DAY CARE MINUTES DAY CARE S5100 THE [address] ADULT; ADULT ADULT PER 15 DAY CARE DAY CARE MINUTES DAY CARE S5100 THE [address] ADULT; ADULT ADULT PER 15 DAY CARE DAY CARE MINUTES DAY CARE S5100 THE [address] ADULT; ADULT ADULT PER 15 DAY CARE DAY CARE MINUTES DAY CARE S5100 THE [address] ADULT; ADULT ADULT PER 15 DAY CARE DAY CARE MINUTES DAY CARE S5100 [address] ADULT; ADULT ADULT PER 15 DAY CARE DAY CARE MINUTES GROUND A0425 VICTORIA VICTORIA MILEAGE 3 CO CO PER AMBULANCE AMBULANCE STATUTE TAXIN TAXIN MILE ECG 85916 [facility] ROUTINE 3 CANDACE PEG ECG W/LEAST PHYSICIAN 12 LDS S EKG I&R ONLY AMB A0427 VICTORIA VICTORIA SERVICE 3 CO CO ALS AMBULANCE AMBULANCE EMERGENCY TAXIN TAXIN TRANSPORT LEVEL 1 DAY CARE S5100 THE [address] ADULT; ADULT ADULT PER 15 DAY CARE DAY CARE MINUTES DAY CARE S5100 [address] ADULT; ADULT ADULT PER 15 DAY CARE DAY CARE MINUTES DAY CARE S5100 THE [address] ADULT; ADULT ADULT PER 15 DAY CARE DAY CARE MINUTES DAY CARE S5100 THE THE SERVICES [address] [place] [address] ADULT; ADULT ADULT PER 15 DAY CARE DAY CARE MINUTES DAY CARE S5100 THE THE SERVICES [address] [place] [address] ADULT; ADULT ADULT PER 15 DAY CARE DAY CARE MINUTES DAY CARE S5[address] ADULT; ADULT ADULT PER 15 DAY CARE DAY CARE MINUTES DAY CARE S5100 THE THE SERVICES [address] [place] [address] ADULT; ADULT ADULT PER 15 DAY CARE DAY CARE MINUTES DAY CARE S5[address] ADULT; ADULT ADULT PER 15 DAY CARE DAY CARE MINUTES DAY CARE S5[address] ADULT; ADULT ADULT PER 15 DAY CARE DAY CARE MINUTES SBSQ 09519 [facility] 3 CANDACE CARE/DAY 25 PHYSICIAN MINUTES S ECG 61322 [facility] ROUTINE 3 CANDACE GAR ECG W/LEAST PHYSICIAN 12 LDS S EKG I&R ONLY INITIAL 10356 [facility] 3 CANDACE CARE/DAY [address] [place] [address] RADIOLOGY REN HEAD/BRAI 3 III LIANA N W/O ASSOCIATE CONTRAST S OF [facility] MATERIAL CRITICAL 91358 EMERGENCY [facility] 3 CARE ILL/INJUR PHYS ED [facility] RANDALLIA PATIENT INIT 30-74 MIN DAY CARE S5100 [address] ADULT; ADULT ADULT PER 15 DAY CARE DAY CARE MINUTES DAY CARE S5100 [address] ADULT; ADULT ADULT PER 15 DAY CARE DAY CARE MINUTES DAY CARE S5[address] ADULT; ADULT ADULT PER 15 DAY CARE DAY CARE MINUTES DAY CARE S5[address] ADULT; ADULT ADULT PER 15 DAY CARE DAY CARE MINUTES DAY CARE S5[address] ADULT; ADULT ADULT PER 15 DAY CARE DAY CARE MINUTES DAY CARE S5[address] ADULT; ADULT ADULT PER 15 DAY CARE DAY CARE MINUTES DAY CARE S5100 [address] ADULT; ADULT ADULT PER 15 DAY CARE DAY CARE MINUTES DAY CARE S5100 THE THE SERVICES 3 [facility] ADULT; ADULT ADULT PER 15 DAY CARE DAY CARE MINUTES DAY CARE S5100 THE THE SERVICES [address] [place] [address] ADULT; ADULT ADULT PER 15 DAY CARE DAY CARE MINUTES DAY CARE S5100 THE THE SERVICES [address] [place] [address] ADULT; ADULT ADULT PER 15 DAY CARE DAY CARE MINUTES DAY CARE S5100 THE THE SERVICES [address] [place] [address] ADULT; ADULT ADULT PER 15 DAY CARE DAY CARE MINUTES DAY CARE S5100 THE THE SERVICES [address] [place] [address] ADULT; ADULT ADULT PER 15 DAY CARE DAY CARE MINUTES DAY CARE S5[address] ADULT; ADULT ADULT PER 15 DAY CARE DAY CARE MINUTES NONEMERGE A0100 [facility] INC TRANSPORT TRANSPORT REGION 9 ATION CO ATION; L TAXI DAY CARE S5100 THE [address] ADULT; ADULT ADULT PER 15 DAY CARE DAY CARE MINUTES DAY CARE S5100 [address] ADULT; ADULT ADULT PER 15 DAY CARE DAY CARE MINUTES DAY CARE S5100 [address] ADULT; ADULT ADULT PER 15 DAY CARE DAY CARE MINUTES DAY CARE S5100 [address] ADULT; ADULT ADULT PER 15 DAY CARE DAY CARE MINUTES DAY CARE S5[address] ADULT; ADULT ADULT PER 15 DAY CARE DAY CARE MINUTES DAY CARE S5100 [address] ADULT; ADULT ADULT PER 15 DAY CARE DAY CARE MINUTES DAY CARE S5[address] ADULT; ADULT ADULT PER 15 DAY CARE DAY CARE MINUTES DAY CARE S5[address] ADULT; ADULT ADULT PER 15 DAY CARE DAY CARE MINUTES DAY CARE S5[address] ADULT; ADULT ADULT PER 15 DAY CARE DAY CARE MINUTES DAY CARE S5[address] ADULT; ADULT ADULT PER 15 DAY CARE DAY CARE MINUTES DAY CARE S5100 [address] ADULT; ADULT ADULT PER 15 DAY CARE DAY CARE MINUTES DAY CARE S5100 [address] ADULT; ADULT ADULT PER 15 DAY CARE DAY CARE MINUTES DAY CARE S5[address] ADULT; ADULT ADULT PER 15 DAY CARE DAY CARE MINUTES DAY CARE S5100 [address] ADULT; ADULT ADULT PER 15 DAY CARE DAY CARE MINUTES DAY CARE S5100 [address] ADULT; ADULT ADULT PER 15 DAY CARE DAY CARE MINUTES DAY CARE S5100 [address] ADULT; ADULT ADULT PER 15 DAY CARE DAY CARE MINUTES DAY CARE S5100 [address] ADULT; ADULT ADULT PER 15 DAY CARE DAY CARE MINUTES DAY CARE S5100 [address] ADULT; ADULT ADULT PER 15 DAY CARE DAY CARE MINUTES DAY CARE S5[address] ADULT; ADULT ADULT PER 15 DAY CARE DAY CARE MINUTES DAY CARE S5100 THE THE SERVICES [address] [place] [address] ADULT; ADULT ADULT PER 15 [place] [address] [facility]/[place] [address] [facility] HEAD/BRAI 3 [facility] N W/O INC INC CONTRAST MATERIAL 3D 51447 [facility] RENDERING 3 [facility] INC INC W/INTERP& [place] [address] [facility] THORACIC 3 [facility]/O INC INC CONTRAST MATERIAL CT LUMBAR 74704 [facility] SPINE 3 [facility] W/O INC INC CONTRAST MATERIAL GROUND A0425 VICTORIA VICTORIA MILEAGE 3 CO CO PER AMBULANCE AMBULANCE STATUTE TAXIN TAXIN MILE AMBULANCE A0429 VICTORIA VICTORIA SERVICE 3 CO CO BLS AMBULANCE AMBULANCE EMERGENCY TAXIN TAXIN TRANSPORT DAY CARE S5100 [address] ADULT; ADULT ADULT PER 15 DAY CARE DAY CARE MINUTES DAY CARE S5100 [address] ADULT; ADULT ADULT PER 15 DAY CARE DAY CARE MINUTES DAY CARE S5100 [address] ADULT; ADULT ADULT PER 15 DAY CARE DAY CARE MINUTES DAY CARE S5100 [address] ADULT; ADULT ADULT PER 15 DAY CARE DAY CARE MINUTES DAY CARE S5100 [address] ADULT; ADULT ADULT PER 15 DAY CARE DAY CARE MINUTES GROUND A0425 VICTORIA VICTORIA MILEAGE 3 CO CO PER AMBULANCE AMBULANCE STATUTE TAXIN TAXIN MILE AMB A0427 VICTORIA VICTORIA SERVICE 3 CO CO ALS AMBULANCE AMBULANCE EMERGENCY TAXIN TAXIN TRANSPORT LEVEL 1 DAY CARE S5100 [address] ADULT; ADULT ADULT PER 15 DAY CARE DAY CARE MINUTES DAY CARE S5100 [address] ADULT; ADULT ADULT PER 15 DAY CARE DAY CARE MINUTES COLLECTIO 06498 [facility] N VENOUS 3 CANDACE MARIA BLOOD FT [place] [address] [facility] PROLACTIN 3 CANDACE MARIA FT [facility] DAY CARE S5[address] THE [address] ADULT; ADULT ADULT PER 15 DAY CARE DAY CARE MINUTES DAY CARE S5100 THE [address] ADULT; ADULT ADULT PER 15 DAY CARE DAY CARE MINUTES DAY CARE S5100 THE [address] ADULT; ADULT ADULT PER 15 DAY CARE DAY CARE MINUTES DAY CARE S5100 THE [address] ADULT; ADULT ADULT PER 15 DAY CARE DAY CARE MINUTES DAY CARE S5100 THE [address] ADULT; ADULT ADULT PER 15 DAY CARE DAY CARE MINUTES DAY CARE S5100 THE [address] ADULT; ADULT ADULT PER 15 DAY CARE DAY CARE MINUTES EXC 71884 [facility] BREAST 3 CANDACE KAII LES PREOP PLMT RAD PHYSICIAN MARKER S OPEN [address] [place] [address] SURG 3 CANDACE CANDACE PATHOLOGY FT FT CRUZ [facility] GROSS&SAMANTHA ROSCOPIC EXAM MAMMOGRAP [address] HIC GID 3 CANDACE CANDACE NEEDLE FT FT PLACEMENT CRU[facility] T BREAST RADIOLOGI 01031 RADIOLOGY [facility] 3 CHR EXAMINATI ASSOCIATE ON S OF [facility] SURGICAL SPECIMEN ANES [address] INTEG 3 CANDACE CANDACE EXTREMITI FT FT ES ANT CRUZ [facility] TRUNK & PERINEUM NOS PREOP [address] PLACEMENT 3 CANDACE CANDACE FT FT LOCALIZAT CRUZ [facility] ION WIRE BREAST EXC [address] CYST/ABER 3 CANDACE CANDACE RANT FT FT BREAST CRU[facility] TISSUE OPEN 1/> LESION DAY CARE S5[address] ADULT; ADULT ADULT PER 15 DAY CARE DAY CARE MINUTES DAY CARE S5100 [address] ADULT; ADULT ADULT PER 15 DAY CARE DAY CARE MINUTES DAY CARE S5[address] ADULT; ADULT ADULT PER 15 DAY CARE DAY CARE MINUTES NONEMERGE A0100 [facility] COMMUNITY TRANSPORT TRANSPORT ACTION ATION CO ATION; L TAXI [place] [address] [facility] CANDACE PEG ECG W/LEAST PHYSICIAN 12 LDS S EKG I&R ONLY ECG [address] ROUTINE 3 CANDACE CANDACE ECG FT FT W/LEAST CRUZ ARROYO 12 LDS TRCG ONLY W/O I&R DAY CARE S5100 [address] ADULT; ADULT ADULT PER 15 DAY CARE DAY CARE MINUTES DAY CARE S5100 THE [address] ADULT; ADULT ADULT PER 15 DAY CARE DAY CARE MINUTES DAY CARE S5100 THE [address] ADULT; ADULT ADULT PER 15 DAY CARE DAY CARE MINUTES DAY CARE S5100 [address] ADULT; ADULT ADULT PER 15 DAY CARE DAY CARE MINUTES DAY CARE S5100 [address] ADULT; ADULT ADULT PER 15 DAY CARE DAY CARE MINUTES NONEMERGE A0100 [facility] 3 COMMUNITY TRANSPORT TRANSPORT ACTION ATION CO ATION; L TAXI DAY CARE S5[address] ADULT; ADULT ADULT PER 15 DAY CARE DAY CARE MINUTES DAY CARE S5100 THE [address] ADULT; ADULT ADULT PER 15 DAY CARE DAY CARE MINUTES DAY CARE S5100 THE [address] ADULT; ADULT ADULT PER 15 DAY CARE DAY CARE MINUTES DAY CARE S5100 THE [address] ADULT; ADULT ADULT PER 15 DAY CARE DAY CARE MINUTES DAY CARE S5100 [address] ADULT; ADULT ADULT PER 15 DAY CARE DAY CARE MINUTES DAY CARE S5100 [address] ADULT; ADULT ADULT PER 15 DAY CARE DAY CARE MINUTES DAY CARE S5100 [address] ADULT; ADULT ADULT PER 15 DAY CARE DAY CARE MINUTES DAY CARE S5100 [address] ADULT; ADULT ADULT PER 15 DAY CARE DAY CARE MINUTES DAY CARE S5100 [address] ADULT; ADULT ADULT PER 15 DAY CARE DAY CARE MINUTES DAY CARE S5[address] ADULT; ADULT ADULT PER 15 DAY CARE DAY CARE MINUTES DAY CARE S5[address] ADULT; ADULT ADULT PER 15 DAY CARE DAY CARE MINUTES DAY CARE S5[address] ADULT; ADULT ADULT PER 15 DAY CARE DAY CARE MINUTES COMPUTER- 52394 RADIOLOGY [place] AIDED 3 JESSICA DETECTION ASSOCIATE DX S OF [facility] MAMMOGRAP HY DIAGNOSTI G0204 RADIOLOGY [place] C 3 JESSICA MAMMOGRAP ASSOCIATE HY INCL S OF [facility] CAD WHEN PERF; BILAT MAMMOGRAP 31866 [facility] HY 3 CANDACE MARIA BILATERAL FT [facility] DAY CARE S5100 [address] ADULT; ADULT ADULT PER 15 DAY CARE DAY CARE MINUTES DAY CARE S5100 THE THE SERVICES 3 [facility] ADULT; ADULT ADULT PER 15 DAY CARE DAY CARE MINUTES DAY CARE S5100 THE THE SERVICES 3 [facility] ADULT; ADULT ADULT PER 15 DAY CARE DAY CARE MINUTES DAY CARE S5100 THE THE SERVICES 3 [facility] ADULT; ADULT ADULT PER 15 DAY CARE DAY CARE MINUTES DAY CARE S5100 THE THE SERVICES 3 [facility] ADULT; ADULT ADULT PER 15 DAY CARE DAY CARE MINUTES DAY CARE S5100 THE THE SERVICES 3 [facility] ADULT; ADULT ADULT PER 15 DAY CARE DAY CARE MINUTES DAY CARE S5100 THE THE SERVICES 3 [facility] ADULT; ADULT ADULT PER 15 DAY CARE DAY CARE MINUTES DAY CARE S5100 THE THE SERVICES 3 [facility] ADULT; ADULT ADULT PER 15 DAY CARE DAY CARE MINUTES DAY CARE S5100 THE THE SERVICES [address] [place] [address] ADULT; ADULT ADULT PER 15 DAY CARE DAY CARE MINUTES DAY CARE S5100 THE THE SERVICES [address] [place] [address] ADULT; ADULT ADULT PER 15 DAY CARE DAY CARE MINUTES DAY CARE S5100 THE THE SERVICES [address] [place] [address] ADULT; ADULT ADULT PER 15 DAY CARE DAY CARE MINUTES DAY CARE S5100 THE THE SERVICES [address] [place] [address] ADULT; ADULT ADULT PER 15 DAY CARE DAY CARE MINUTES DAY CARE S5[address] ADULT; ADULT ADULT PER 15 DAY CARE DAY CARE MINUTES DAY CARE S5[address] ADULT; ADULT ADULT PER 15 DAY CARE DAY CARE MINUTES DAY CARE S5100 THE THE SERVICES [address] [place] [address] ADULT; ADULT ADULT PER 15 DAY CARE DAY CARE MINUTES DAY CARE S5100 THE THE SERVICES 3 [facility] ADULT; ADULT ADULT PER 15 DAY CARE DAY CARE MINUTES DAY CARE S5100 THE THE SERVICES [address] [place] [address] ADULT; ADULT ADULT PER 15 DAY CARE DAY CARE MINUTES DAY CARE S5100 THE THE SERVICES 3 [facility] ADULT; ADULT ADULT PER 15 DAY CARE DAY CARE MINUTES DAY CARE S5100 THE THE SERVICES [address] [place] [address] ADULT; ADULT ADULT PER 15 DAY CARE DAY CARE MINUTES DAY CARE S5100 THE THE SERVICES 3 [facility] ADULT; ADULT ADULT PER 15 DAY CARE DAY CARE MINUTES DAY CARE S5100 THE THE SERVICES 3 [facility] ADULT; ADULT ADULT PER 15 DAY CARE DAY CARE MINUTES DAY CARE S5100 THE THE SERVICES 3 [facility] ADULT; ADULT ADULT PER 15 DAY CARE DAY CARE MINUTES DAY CARE S5100 THE THE SERVICES 3 [facility] ADULT; ADULT ADULT PER 15 DAY CARE DAY CARE MINUTES DAY CARE S5100 THE THE SERVICES 3 [facility] ADULT; ADULT ADULT PER 15 DAY CARE DAY CARE MINUTES DAY CARE S5100 THE THE SERVICES 3 [facility] ADULT; ADULT ADULT PER 15 DAY CARE DAY CARE MINUTES DAY CARE S5100 THE THE SERVICES 3 [facility] ADULT; ADULT ADULT PER 15 DAY CARE DAY CARE MINUTES DAY CARE S5100 THE THE SERVICES 3 [facility] ADULT; ADULT ADULT PER 15 DAY CARE DAY CARE MINUTES DAY CARE S5100 THE THE SERVICES 3 [facility] ADULT; ADULT ADULT PER 15 DAY CARE DAY CARE MINUTES DAY CARE S5100 THE THE SERVICES 3 [facility] ADULT; ADULT ADULT PER 15 DAY CARE DAY CARE MINUTES DAY CARE S5100 THE THE SERVICES 3 [facility] ADULT; ADULT ADULT PER 15 DAY CARE DAY CARE MINUTES DAY CARE S5[address] ADULT; ADULT ADULT PER 15 DAY CARE DAY CARE MINUTES DAY CARE S5100 THE THE SERVICES 3 [facility] ADULT; ADULT ADULT PER 15 DAY CARE DAY CARE MINUTES DAY CARE S5100 THE THE SERVICES [address] [place] [address] ADULT; ADULT ADULT PER 15 DAY CARE DAY CARE MINUTES DAY CARE S5100 THE THE SERVICES 3 [facility] ADULT; ADULT ADULT PER 15 DAY CARE DAY CARE MINUTES DAY CARE S5100 THE THE SERVICES 3 [facility] ADULT; ADULT ADULT PER 15 DAY CARE DAY CARE MINUTES DAY CARE S5100 THE THE SERVICES [address] [place] [address] ADULT; ADULT ADULT PER 15 DAY CARE DAY CARE MINUTES DAY CARE S5100 THE THE SERVICES [address] [place] [address] ADULT; ADULT ADULT PER 15 DAY CARE DAY CARE MINUTES DAY CARE S5[address] ADULT; ADULT ADULT PER 15 DAY CARE DAY CARE MINUTES DAY CARE S5[address] ADULT; ADULT ADULT PER 15 DAY CARE DAY CARE MINUTES DAY CARE S5[address] ADULT; ADULT ADULT PER 15 DAY CARE DAY CARE MINUTES DAY CARE S5[address] ADULT; ADULT ADULT PER 15 DAY CARE DAY CARE MINUTES DAY CARE S[address] ADULT; ADULT ADULT PER 15 DAY CARE DAY CARE MINUTES SKIN TEST [address] [facility] 3 CANDACE TUBERCULO SIS PHYSICIAN INTRADERM S AL DAY CARE S[address] ADULT; ADULT ADULT PER 15 DAY CARE DAY CARE MINUTES DAY CARE S[address] ADULT; ADULT ADULT PER 15 DAY CARE DAY CARE MINUTES DAY CARE S5[address] ADULT; ADULT ADULT PER 15 DAY CARE DAY CARE MINUTES GROUND A0425 VICTORIA VICTORIA MILEAGE 3 CO CO PER AMBULANCE AMBULANCE STATUTE TAXIN TAXIN MILE AMB A0427 VI[facility] VICTORIA SERVICE 3 CO CO ALS AMBULANCE AMBULANCE EMERGENCY TAXIN TAXIN TRANSPORT LEVEL 1 DAY CARE S[address] ADULT; ADULT ADULT PER 15 DAY CARE DAY CARE MINUTES DAY CARE S[address] ADULT; ADULT ADULT PER 15 DAY CARE DAY CARE MINUTES DAY CARE S[address] ADULT; ADULT ADULT PER 15 DAY CARE DAY CARE MINUTES DAY CARE S5[address] ADULT; ADULT ADULT PER 15 DAY CARE DAY CARE MINUTES DAY CARE S5[address] ADULT; ADULT ADULT PER 15 DAY CARE DAY CARE MINUTES DAY CARE S[address] ADULT; ADULT ADULT PER 15 DAY CARE DAY CARE MINUTES DAY CARE S5[address] ADULT; ADULT ADULT PER 15 DAY CARE DAY CARE MINUTES DAY CARE S5100 THE THE SERVICES 3 [facility] ADULT; ADULT ADULT PER 15 DAY CARE DAY CARE MINUTES DAY CARE S5100 THE THE SERVICES [address] [place] [address] ADULT; ADULT ADULT PER 15 DAY CARE DAY CARE MINUTES DAY CARE S5100 THE THE SERVICES [address] [place] [address] ADULT; ADULT ADULT PER 15 DAY CARE DAY CARE MINUTES DAY CARE S5100 THE THE SERVICES [address] [place] [address] ADULT; ADULT ADULT PER 15 DAY CARE DAY CARE MINUTES DAY CARE S5100 THE THE SERVICES 3 [facility] ADULT; ADULT ADULT PER 15 DAY CARE DAY CARE MINUTES DAY CARE S[address] ADULT; ADULT ADULT PER 15 DAY CARE DAY CARE MINUTES DAY CARE S[address] ADULT; ADULT ADULT PER 15 DAY CARE DAY CARE MINUTES DAY CARE S[address] ADULT; ADULT ADULT PER 15 DAY CARE DAY CARE MINUTES GROUND A0425 VICTORIA VICTORIA MILEAGE 3 CO CO PER AMBULANCE AMBULANCE STATUTE TAXIN TAXIN MILE AMB A0427 VICTORIA VICTORIA SERVICE 3 CO CO ALS AMBULANCE AMBULANCE EMERGENCY TAXIN TAXIN TRANSPORT LEVEL 1 DAY CARE S[address] ADULT; ADULT ADULT PER 15 DAY CARE DAY CARE MINUTES DAY CARE S[address] ADULT; ADULT ADULT PER 15 DAY CARE DAY CARE MINUTES DAY CARE S[address] ADULT; ADULT ADULT PER 15 DAY CARE DAY CARE MINUTES DAY CARE S[address] ADULT; ADULT ADULT PER 15 DAY CARE DAY CARE MINUTES DAY CARE S[address] ADULT; ADULT ADULT PER 15 DAY CARE DAY CARE MINUTES DAY CARE S[address] ADULT; ADULT ADULT PER 15 DAY CARE DAY CARE MINUTES DAY CARE S[address] ADULT; ADULT ADULT PER 15 DAY CARE DAY CARE MINUTES DAY CARE S5100 THE THE SERVICES 3 [facility] ADULT; ADULT ADULT PER 15 DAY CARE DAY CARE MINUTES COMPUTER- 79801 [facility] AIDED 2 MAMMOGRAP MOL DETECTION HY DX SERVICES MAMMOGRAP HY DIAGNOSTI G0204 [facility] C 2 MAMMOGRAP MOL MAMMOGRAP HY HY INCL SERVICES CAD WHEN PERF; BILAT BREAST 24998 [facility] BIOPSY 2 MAMMOGRAP MOL VACUUM HY ASSISTED/ SERVICES ROTATING DEVICE IMG GID 05802 [facility] PLMT MTLC 2 MAMMOGRAP MOL LOCLZJ HY CLIP PRQ SERVICES BRST [place] [address] [facility] SURG 2 RESTORATIONISM RESTORATIONISM PATHOLOGY HOSP HOSP GROSS[place] [address] [facility] GUIDANCE 2 MAMMOGRAP MOL NEEDLE HY PLACEMENT SERVICES IMG S&I US BREAST 51470 [facility] REAL 2 MAMMOGRAP MOL TIME HY W/IMAGE SERVICES DOCUMENTA TION LOCALIZE 01047 [facility] 2 ELIZABETH MICHAEL SEIZURE NEUROLOGY CABLE/RAD IO EEG/VIDEO LOCALIZE 30643 [facility] 2 ELIZABETH MICHAEL SEIZURE NEUROLOGY CABLE/RAD IO EEG/VIDEO AMB A0427 [facility] SERVICE 2 FAYETTE FAYETTE ALS URBAN URBAN EMERGENCY COG[facility] COG[facility]T TRANSPORT LEVEL 1 GLUC BLD 93711 [facility] 2 Y Y DEV [facility] HOSPITAL CLEARED FDA SPEC HOME USE GROUND A0425 [facility] EAR[facility] MILEAGE 2 FAYETTE FAYETTE PER URBAN URBAN STATUTE COGOVT COGOVT MILE GROUND A0425 [facility] MILEAGE 2 FAYETTE FAYETTE PER URBAN URBAN STATUTE COGOVT COGOVT MILE AMB A0427 [facility] SERVICE 2 FAYETTE FAYETTE ALS URBAN URBAN EMERGENCY COGOVT COGOVT TRANSPORT LEVEL 1 AMB A0427 EARL EARL SERVICE 2 FAYETTE FAYETTE ALS URBAN URBAN EMERGENCY COGOVT COGOVT TRANSPORT LEVEL 1 GROUND A0425 EARL EARL MILEAGE 2 FAYETTE FAYETTE PER URBAN URBAN STATUTE COGOVT COGOVT MILE GROUND A0425 EARL EARL MILEAGE 2 FAYETTE FAYETTE PER URBAN URBAN STATUTE COGOVT COGOVT MILE CT LUMBAR [address] [place] GAURAV SPINE 2 MEDICAL ANGELA W/O SERV CONTRAST FOUNDATIO MATERIAL ECG [id number] [place] LUCRETIA POOJA ROUTINE 2 MEDICAL ECG SERV W/LEAST FOUNDATIO 12 LDS W/I&R AMB [id number] EARL EARL SERVICE 2 FAYETTE FAYETTE ALS URBAN URBAN EMERGENCY [place] [address] [place] [address] [place] AYOOB AND HEAD/BRAI 2 MEDICAL N W/[place] [address] [place] GAURAV THORACIC 2 MEDICAL ANGELA SPINE W/O SERV CONTRAST FOUNDATIO MATERIAL RADIOLOGI 23994 [place] AYOOB AND C 2 MEDICAL EXAMINATI SERV ON [place] [address] [place] GAURAV CERVICAL 2 MEDICAL ANGELA SPINE W/O SERV CONTRAST FOUNDATIO MATERIAL RADEX 40732 [place] AYOOB AND FOOT 2 MEDICAL COMPLETE SERV MINIMUM 3 FOUNDATIO VIEWS AMB A0427 EARL EARL SERVICE 2 FAYETTE FAYETTE ALS URBAN URBAN EMERGENCY COGOVT COGOVT TRANSPORT LEVEL 1 GROUND A0425 EARL EARL MILEAGE 2 FAYETTE FAYETTE PER URBAN URBAN STATUTE COGOVT COGOVT MILE GROUND A0425 EARL EARL MILEAGE 2 FAYETTE FAYETTE PER URBAN URBAN STATUTE COGOVT COGOVT MILE AMB A0427 EARL EARL SERVICE 2 FAYETTE FAYETTE ALS URBAN URBAN EMERGENCY COGOVT COGOVT TRANSPORT LEVEL 1 AMB A0427 EARL EARL SERVICE 2 FAYETTE FAYETTE ALS URBAN URBAN EMERGENCY COGOVT COGOVT TRANSPORT LEVEL 1 GROUND A0425 EARL EARL MILEAGE 2 FAYETTE FAYETTE PER URBAN URBAN STATUTE COGOVT COGOVT MILE GROUND A0425 EARL EARL MILEAGE 2 FAYETTE FAYETTE PER URBAN URBAN STATUTE COGOVT COGOVT MILE AMB A0427 EARL EARL SERVICE 2 FAYETTE FAYETTE ALS URBAN URBAN EMERGENCY [place] [address] [place] [address] [place] XIMENA JAM HEAD/BRAI 2 MEDICAL N W/O SERV CONTRAST [place] [address] [place] ESCOTT HEAD/BRAI 2 MEDICAL EDW N W/O SERV CONTRAST FOUNDAT[facility] MATERIAL AMB A0427 EARL EARL SERVICE 2 FAYETTE FAYETTE ALS URBAN URBAN EMERGENCY COGOVT COGOVT TRANSPORT LEVEL 1 INJECTION J1200 [facility] 2 Y Y [facility] RAMINE HCL UP TO 50 MG GROUND A0425 EARL EARL MILEAGE 2 FAYETTE FAYETTE PER URBAN URBAN STATUTE COGOVT COGOVT MILE ALBUMIN 42812 [facility] 2 Y Y PLASMA/[facility] OLE BLOOD DRUG 01637 [facility] SCREEN 2 Y Y [facility] SWAPNIL PHENYTOIN FREE INJECTION J0515 [facility] 2 Y Y [facility] MESYL[facility] PER 1 MG RADIOLOGI 52658 [place] C 2 MEDICAL RYLIE EXAMINATI SERV ON FEM[place] [address] [place] [address] [place] CERVICAL 2 MEDICAL RYLIE SPINE W/O SERV CONTRAST FOUNDAT[facility] MATERIAL BASIC 18713 [facility] METABOLIC 2 Y Y PANEL [facility] CALCIUM TOTAL INJECTION J1165 [facility] 2 Y [facility] PER 50 MG INJECTION J2060 [facility] 2 Y Y [facility] 2 MG DRUG 47275 [facility] SCREEN 2 Y [facility] SWAPNIL PHENYTOIN TOTAL BLOOD 62787 [facility] COUNT 2 Y Y COMPLETE [facility] AUTOMATED RADEX HIP 95212 [place] 2 MEDICAL RYLIE UNILATERA SERV L [facility] COMPLETE MINIMUM 2 VIEWS INFUSION J7050 [facility] NORMAL 2 Y Y SALINE [facility] SOLUTION 250 CC RADIOLOGI 56063 [place] 2 MEDICAL RYLIE EXAMINATI SERV ON PELVIS FOUND[facility] 1/2 VIEWS RADIOLOGI 47214 [place] 2 MEDICAL RYLIE EXAMINATI SERV ON TIBIA [facility] FIBULA 2 VIEWS GROUND A0425 EARL EARL MILEAGE 2 FAYETTE FAYETTE PER URBAN URBAN STATUTE COGOVT COGOVT MILE AMB A0427 EARL EARL SERVICE 2 FAYETTE FAYETTE ALS URBAN URBAN EMERGENCY COGOVT COGOVT TRANSPORT LEVEL 1 RADIOLOGI 47236 [place] 2 MEDICAL RYLIE EXAMINATI SERV ON CHEST [facility] SINGLE VIEW FRONTAL RADIOLOGI 25916 [place] 2 MEDICAL RYLIE EXAMINATI SERV ON KNEE 3 [place] [address] [facility] INFUSION 2 Y Y THERAPY/P [facility] ROPHYLAXI S /DX 1ST TO 1 HR THERAPEUT 15957 [facility] IC 2 Y Y INJECTION [facility] IV PUSH EACH NEW DRUG AMB A0427 EARL EARL SERVICE 2 FAYETTE FAYETTE ALS URBAN URBAN EMERGENCY COGOVT COGOVT TRANSPORT LEVEL 1 RADIOLOGI 73963 [place] EXAM 2 MEDICAL RYLIE CHEST 2 SERV VIEWS FOUND[facility] FRONTAL&L ATERAL GROUND A0425 EARL EARL MILEAGE 2 FAYETTE FAYETTE PER URBAN URBAN STATUTE COGOVT MUSCOGEEOVT [facility] [address] [place] FEE [facility] DISCHARGE 2 MEDICAL DAY SERV MANAGEMEN FOUNDAT[facility] T 30 MIN/< LOCALIZE 77739 [place] CEREBRAL 2 MEDICAL JOSE MARTIN SEIZURE SERV CABLE/RAD [facility] IO EEG/VIDEO LOCALIZE 61918 [place] CEREBRAL 2 MEDICAL JOSE MARTIN SEIZURE SERV CABLE/RAD [facility] IO EEG/VIDEO SBSQ 70625 [place] [facility] 2 MEDICAL CARE/DAY SERV 25 F[facility] MINUTES INITIAL 38899 [facility] 2 MEDICAL CARE/DAY SERV 70 F[facility] MINUTES GROUND A0425 EARL EARL MILEAGE 2 FAYETTE FAYETTE PER URBAN URBAN STATUTE COGOVT COGOVT MILE AMB A0427 EARL EARL SERVICE 2 FAYETTE FAYETTE ALS URBAN URBAN EMERGENCY [place] [address] [place] [address] [place] NICKEL[place] HEAD/BRAI 2 MEDICAL RYLIE N W/[place] [address] [place] CERVICAL 2 MEDICAL RYLIE SPINE W/O SERV CONTRAST [facility]AT[facility] MATERIAL AMB A0427 [facility] [place] 1 R FIRE R FIRE ALS EMS EMS EMERGENCY TRANSPORT LEVEL 1 ECG 24083 GEILE LOBO GEILE LOBO ROUTINE 1 ECG W/LEAST 12 LDS I&R ONLY GROUND A0425 [facility] Executive [facility] MILEAGE 1 R FIRE R FIRE PER EMS EMS STATUTE [facility] 63333 [place] [facility] 1 MEDICAL HENRY DAY SERV MANAGEMEN FOUNDATIO T 30 MIN/< LOCALIZE 10625 [place] BRIANNA CEREBRAL 1 MEDICAL CHINMAY SEIZURE SERV CABLE/RAD [facility] IO EEG/VIDEO INITIAL 96616 [facility] 1 MEDICAL HENRY CARE/DAY SERV 50 FOUNDATIO MINUTES GROUND A0425 [facility] MILEAGE 1 R FIRE R FIRE PER EMS EMS STATUTE MILE [facility] A0422 [facility] OXYGEN&O2 1 R FIRE R FIRE SUPPLIES EMS EMS LIFE SUSTAININ G SITUATION ELECTROEN 81499 [place] CEPHALOGR 1 MEDICAL JOSE MARTIN AM W/REC SERV AWAKE&ASL FOUNDATIO EEP MRI BRAIN 63793 [place]ENT[place] BRAIN 1 MEDICAL HARISH STEM W/O SERV W/CONTRAS [facility]OUNDAT[facility] T MATERIAL AMB A0427 [facility] SERVICE 1 R FIRE R FIRE ALS EMS EMS EMERGENCY TRANSPORT LEVEL 1 CRITICAL 44701 [facility] 1 EMERGENCY ILL/INJUR SERVICES ED PATIENT INIT 30-74 MIN AMB A0422 [facility] OXY[facility]&O2 1 R FIRE R FIRE SUPPLIES EMS EMS LIFE SUSTAININ G SITUATION GROUND A0425 [facility] MILEAGE 1 R FIRE R FIRE PER EMS EMS STATUTE MILE GROUND A0425 [facility] MILEAGE 1 R FIRE R FIRE PER EMS EMS STATUTE MILE AMB A0422 [facility] OXYGEN&O2 1 R FIRE R FIRE SUPPLIES EMS EMS LIFE SUSTAININ G SITUATION ECG 97631 LEONEL SERAFIN ROUTINE 1 EMERGENCY AKM ECG SERVICES W/LEAST 12 LDS I&R ONLY AMB A0427 [facility] SERVICE 1 R FIRE R FIRE ALS EMS EMS EMERGENCY TRANSPORT LEVEL 1 RADIOLOGI 91578 [facility] [place] C 1 RADIOLOGY OSKAR EXAMINATI ON CHEST SINGLE VIEW FRONTAL EXC B9 05964 DK SHAKEEL LESION 1 MEDICAL CHLOE MRGN XCP SERV SK TG FOUNDATIO S/N/H/F/G 1.1-2.0CM LEVEL III 20986 [facility] TANOUS SURG 1 EDW PATHOLOGY PATHOLOGY ASSOCIAT GROSS&SAMANTHA ROSCOPIC EXAM ANES 82748 COMMONWEA BOLDEN GAV INTEG 1 LTH MUSC & ANESTHESI NRV HEAD A PSC NECK&POST ERIOR TRUNK BASIC 34827 ALBERTA PINZON METABOLIC 1 REGIONAL REGIONAL PANEL MEDICAL MEDICAL CALCIUM CENTE CENTE TOTAL ECG 81354 ALBERTA PINZON ROUTINE 1 REGIONAL REGIONAL ECG MEDICAL MEDICAL W/LEAST CENTE CENTE 12 LDS TRCG ONLY W/O I&R COLLECTIO 69565 ALBERTA PINZON N VENOUS 1 REGIONAL REGIONAL BLOOD MEDICAL MEDICAL VENIPUNCT CENTE CENTE URE ALVEOLOPL 46674 ALVARADO I BAUTISTA III ASTY EACH 1 BAUTISTA III LYUBOV QUADRANT PSC N0 3 SPECIFY DEEP D9220 ALVARADO I BAUTISTA III SEDATION/ 1 BAUTISTA III LYUBOV GENERAL PSC N0 3 ANESTHESI A-1ST 30 MINUTES ORTHOPANT 32808 ALVARADO I BAUTISTA III OGRAM 1 BAUTISTA III LYUBOV PSC N0 3 ECG 95010 RAMONA YUN YUN RAMONA ROUTINE 1 MD ECG CONSULTIN W/LEAST G SRV 12 LDS I&R ONLY INITIAL 87103 CARTER MACHADO JUVENTINO INPATIENT 1 CONSULT NEW/ESTAB [place] [address] [place] [address] [facility] [place] SCALF MARII HEAD/BRAI 1 RADIOLOGY N W/O CONTRAST MATERIAL LIPID 73605 [facility] UNIVERS PANEL 1 Y Y [facility] DRUG 04725 [facility] SCREEN 1 Y Y QUANTITAT [facility] [place] [address] [facility] FERRITIN 1 Y Y [facility] IRON 16111 [facility] BINDING 1 Y Y CAPACITY [facility] BLOOD 75029 [facility] COUNT 1 Y Y COMPLETE [facility] AUTOMATED COLLECTIO 59636 [facility] N VENOUS 1 Y Y BLOOD [facility] VENIPUNCT URE CHROMATOG 94849 [facility] HUMBERTO 1 Y Y [facility] COLUMN [place] [address] [facility] THYROID 1 Y [facility] TSH COMPREHEN 52024 [facility] SIVE 1 Y Y METABOLIC [facility] [place] [address] [facility] [place] ZHANG BAR HEAD/BRAI 1 RADIOLOGY N W/[place] [address] ALBERTA ALBERTA ABDOMEN 1 REGIONAL REGIONAL W/O & MEDICAL MEDICAL W/CONTRAS CENTE CENTE T MATERIAL Encounters Encounter Start End Date Code Location Performer Type Date EMERGENCY 03800 BRIAN JUAN DEPT 7 7 PHYSIC[facility]& THREAT FUNCJ EMERGENCY 63923 BRIAN JUAN DEPT 7 7 PHYSICIAN U VISIT S, PLLC HIGH SEVERITY& THREAT FUNCJ EMERGENCY 64368 BRIAN GRANGER 7 7 PHYSICIAN JR DEPARTMEN [facility], [facility] T VISIT MODERATE SEVERITY [facility]OSPITAL KE - 7 7 [facility] INC T EMERGENCY 38178 KE 7 7 [facility] DEPARTMEN INC T VISIT LOW/MODER SEVERITY HOSPITAL KE - 7 7 [facility] OUTPATIEN INC T EMERGENCY 79738 KE 7 7 [facility] DEPARTMEN INC T VISIT MODERATE SEVERITY EMERGENCY 12905 BRIAN OLMEDO DEPT 7 7 PHYSICIAN VISIT S, [facility] HIGH SEVERITY& THREAT FUN EMERGENCY 36390 BRIAN PEOPLES DEPT 7 7 PHYSICIAN VISIT S, PLLC HIGH SEVERITY& THREAT [facility] HOSPITAL KE - 7 7 [facility] KE - 7 7 [facility] OUTPATIEN [facility] T EMERGENCY 60619 KE 7 7 [facility] T VISIT HIGH/URGE NT SEVERITY HOSPITAL KE - 7 7 [facility] OFFICE 48342 [facility] 7 7 PHYSICIAN T VISIT S GROUP 25 MINUTES OFFICE 25587 [facility] 7 7 PHYSICIAN T NEW 20 S GROUP MINUTES EMERGENCY 73050 BRIAN OLMEDO 7 7 PHYSICIAN DEPARTMEN S, [facility] T VISIT HIGH/URGE NT SEVERITY EMERGENCY 78400 BRIAN FIELDS DEPT 6 6 PHYSICIAN VISIT S, [facility] HIGH SEVERITY& THREAT [facility] HOSPITAL UNIVERSIT - 6 6 Y [facility] T OFFICE 18187 [facility] 6 6 Y T VISIT 5 HOSPITAL MINUTES EMERGENCY 49651 BRIAN JUAN 6 6 PHYSICIAN U BEN DEPARTMEN S, PLLC T VISIT MODERATE SEVERITY EMERGENCY 06126 KE 6 6 [facility] T VISIT LOW/MODER SEVERITY EMERGENCY 39856 BRIAN BUCIO 6 6 PH[facility]IC[facility] T VISIT MODERATE SEVERITY HOSPITAL KE - 6 6 [facility] OUTPATIEN [facility] T EMERGENCY 94437 BRIAN FIELDS 6 6 PHYSICIAN SAMANTHA DEPARTMEN S, PLLC T VISIT LOW/MODER SEVERITY EMERGENCY 94350 BRIAN FIELDS DEPT 6 6 PHYSICIAN SAMANTHA VISIT S, PLLC HIGH SEVERITY& THREAT FUNCJ EMERGENCY 58166 BRIAN FIELDS DEPT 6 6 PHYSICIAN SAMANTHA VISIT S, PLLC HIGH SEVERITY& THREAT FUNCJ EMERGENCY 22949 BRIAN FIELDS DEPT 6 6 PHYSICIAN SAMANTHA VISIT S, PLLC HIGH SEVERITY& THREAT FUNCJ EMERGENCY 53756 BRIAN FIELDS DEPT 6 6 PHYSICIAN SAMANTHA VISIT S, PLLC HIGH SEVERITY& THREAT FUNCJ EMERGENCY 94189 KE 6 6 MEM [facility] DEPARTMEN INC T VISIT MODERATE SEVERITY HOSPITAL KE - 6 6 [facility] OUTPATIEN INC T EMERGENCY 40479 BRIAN FIELDS DEPT 6 6 PHYSICIAN SAMANTHA VISIT S, PLLC HIGH SEVERITY& THREAT FUNCJ EMERGENCY 02361 BRIAN FIELDS 6 6 PHYSICIAN SAMANTHA DEPARTMEN S, PLLC T VISIT MODERATE SEVERITY EMERGENCY 12820 BRIAN JUAN 6 6 PHYSICIAN U BEN DEPARTMEN S, PLLC T VISIT MODERATE SEVERITY HOSPITAL KE - 6 6 [facility] OUTPATIEN INC T HOSPITAL KE - 6 6 [facility] OUTPATIEN INC T EMERGENCY 90049 BRIAN PEOPLES 6 6 PHYSICIAN MEGHNA DEPARTMEN S, PLLC T VISIT MODERATE SEVERITY HOSPITAL KE - 6 6 [facility] OUTPATIEN INC T EMERGENCY 88558 KE 6 6 [facility] DEPARTMEN INC T VISIT LOW/MODER SEVERITY EMERGENCY 80515 BRIAN FIELDS 6 6 PHYSICIAN SAMANTHA DEPARTMEN S, PLLC T VISIT MODERATE SEVERITY EMERGENCY 85873 BRIAN FIELDS DEPT 6 6 PHYSICIAN SAMANTHA VISIT S, PLLC HIGH SEVERITY& THREAT FUNCJ EMERGENCY 91686 BRIAN FIELDS DEPT 6 6 PHYSICIAN SAMANTHA VISIT S, PLLC HIGH SEVERITY& THREAT FUNCJ EMERGENCY 73901 KE 6 6 [facility] DEPARTMEN INC T VISIT LIMITED/M [facility]OB H[facility]PITAL KE - 6 6 [facility] OUTPATIEN INC T EMERGENCY 24125 BRIAN FIELDS DEPT 6 6 PHYSICIAN SAMANTHA VISIT S, PLLC HIGH SEVERITY& THREAT FUNCJ EMERGENCY 88028 BRIAN FIELDS 6 6 PHYSICIAN SAMANTHA DEPARTMEN S, PLLC T VISIT MODERATE SEVERITY EMERGENCY 06306 BRIAN FIELDS 6 6 PHYSICIAN SAMANTHA DEPARTMEN S, PLLC T VISIT HIGH/URGE NT SEVERITY EMERGENCY 70366 BRIAN FIELDS DEPT 6 6 PHYSICIAN SAMANTHA VISIT S, PLLC HIGH SEVERITY& THREAT FUNCJ EMERGENCY 41467 BRIAN FIELDS DEPT 6 6 PHYSICIAN SAMANTHA VISIT S, PLLC HIGH SEVERITY& THREAT FUNCJ EMERGENCY 55228 BRIAN FIELDS 6 6 PHYSICIAN SAMANTHA DEPARTMEN S, PLLC T VISIT HIGH/URGE NT SEVERITY HOSPITAL KE - 6 6 [facility] OUTPATIEN INC T EMERGENCY 71704 KE 6 6 [facility] DEPARTMEN INC T VISIT LIMITED/M INOR PROB EMERGENCY 71965 BRIAN FIELDS 6 6 PHYSICIAN SAMANTHA DEPARTMEN S, PLLC T VISIT MODERATE SEVERITY EMERGENCY 99188 BRIAN JUAN DEPT 6 6 PHYSICIAN U BEN VISIT S, PLLC HIGH SEVERITY& THREAT FUNCJ EMERGENCY 31919 KE 6 6 [facility] DEPARTMEN INC T VISIT LOW/MODER SEVERITY EMERGENCY 90851 BRIAN REES 6 6 PHYSICIAN DEPARTMEN S, PLLC T VISIT HIGH/URGE NT SEVERITY HOSPITAL KE - 6 6 [facility] OUTPATIEN [facility] EMERGENCY 18063 KE 6 6 [facility] T VISIT LOW/MODER SEVERITY EMERGENCY 90031 BRIAN PERRY [facility] 6 6 PHYSICIAN [facility], [facility] T VISIT HIGH/URGE NT SEVERITY HOSPITAL KE - 6 6 [facility] EMERGENCY 91253 BRIAN RAMOS SYLVIA 6 6 PHYSICIAN [facility] S, [facility] T VISIT HIGH/URGE NT SEVERITY EMERGENCY 65875 KE 6 6 [facility] T VISIT LOW/MODER SEVERITY HOSPITAL KE - 6 6 [facility] EMERGENCY 60103 KE 6 6 [facility] T VISIT HIGH/URGE NT SEVERITY HOSPITAL KE - 6 6 [facility] OUTPATIEN [facility] 29641 BRIAN JUAN 6 6 PHYSICIAN U BEN [facility], [facility] T VISIT HIGH/URGE NT SEVERITY HOSPITAL KE - 6 6 [facility] EMERGENCY 42895 KE 6 6 [facility] T VISIT LOW/MODER SEVERITY EMERGENCY 03348 KE 6 6 [facility] T VISIT LOW/MODER SEVERITY EMERGENCY 98911 BRIAN PERRY MOH 6 6 PHYSICIAN [facility], [facility] T VISIT HIGH/URGE NT SEVERITY HOSPITAL KE - 6 6 [facility] EMERGENCY 32697 BRIAN BUCIO DEPT 5 5 PHYSICIAN FOR VISIT S, [facility] HIGH SEVERITY& THREAT FUNCJ EMERGENCY 23981 BRIAN LEWIS JR 5 5 PHYSICIAN [facility] T VISIT HIGH/URGE NT SEVERITY EMERGENCY 50219 KE 5 5 [facility] T VISIT HIGH/URGE NT SEVERITY HOSPITAL KE - 5 5 [facility] OUTPATIEN INC T OFFICE 59365 [facility] 5 5 N ION NEUROLOGY NEW/ESTAB PATIENT 60 MIN HOSPITAL ANISHBRACEY - 5 [address] [facility] - 5 5 [facility] OUTPATIEN [facility] EMERGENCY 83367 BRIAN JUAN 5 5 PHYSICIAN Austen [facility], [facility] T VISIT HIGH/URGE NT SEVERITY HOSPITAL KE - 5 5 [facility] OUTPATIEN [facility] EMERGENCY 59592 BRIAN REES 5 5 PHYSICIAN [facility], [facility] T VISIT HIGH/URGE NT SEVERITY OFFICE 90404 [facility] SCHULSTAD OUTPATIHAWA 5 5 PHYSICIAN RUSLAN Bhatti NEW 45 S GROUP MINUTES EMERGENCY 34179 BRIAN JUAN 5 5 PHYSICIAN Austen [facility] PLL[facility] T VISIT HIGH/URGE NT SEVERITY OFFICE 26673 [facility] OUT[facility]IEN 5 5 [place] T VISIT ORTHOPAED 15 [facility] MINUTES EMERGENCY 25795 BRIAN JUAN 5 5 PHYSICIAN U [facility], [facility] T VISIT LOW/MODER SEVERITY EMERGENCY 81785 BRIAN ABDI 5 5 PHYSICIAN LOREN [facility] T VISIT HIGH/URGE NT SEVERITY OFFICE 24557 [facility] OUT[facility] 5 5 [place] T VISIT ORTHOPAED 15 [facility] MINUTES OFFICE 36044 [facility] TAFOYA BINTA 5 5 PHYSICIAN TARAN Bhatti NEW 45 S GROUP MINUTES OFFICE 77555 [facility] OUT[facility] 5 5 [place] T NEW 30 ORTHOPAED MINUTES [facility]CS [facility] HOME VST 17251 MD2U LOEBKER EST PT 5 5 [facility] SCHMID UNSTABLE/ LLC SIGNIF NEW PROB 60 MINS HOME VST 51140 MD2U LOEBKER EST PT 5 5 [place] [facility] UNSTABLE/ LLC SIGNIF NEW PROB 60 MINS OFFICE 49423 [facility] HELLEN OUTPATIEN 5 5 [facility] T VISIT MED CTR [address] - 5 5 [facility] OUTPATIEN MED CTR T ENVIRONMENTAL SCIENCES PROFESSOR ST HOME VST 10429 MD2U LOEBKER EST PT 5 5 [facility] UNST[facility]/ LLC SIGNIF NEW PROB 60 MINS OFFICE 82904 [facility] LIL OUTPATIEN 5 5 [facility] T NEW 30 MINUTES PHYSICIAN S HOME VST 21010 MD2U LOEBKER EST PT 5 5 [place] SCHMID UNSTABLE/ LLC SIGNIF NEW PROB 60 MINS HOME VST 46247 MD2U LOEBKER EST PT 5 5 [place] [facility] UN[facility]/ LLC SIGNIF NEW PROB 60 MINS HOME VST 21521 MD2U LOEBKER EST PT 5 5 [place] [facility] UN[facility]/ LLC SIGNIF NEW PROB 60 MINS HOME VST 92112 MD2U LOEBKER EST PT 4 4 [place] [facility] UN[facility]/ LLC SIGNIF NEW PROB 60 MINS HOME VST 24365 MD2U LOEBKER EST PT 4 4 [place] [facility] UNSTABLE/ LLC SIGNIF NEW PROB 60 MINS OFFICE 51729 [facility] OUTPATIEN 4 4 [facility] HEI T VISIT 15 PHYSICIAN MINUTES S EMERGENCY 43668 EMERGENCY DAVREN DEPT 4 4 CARE ANNETTE VISIT PHYS HIGH NORTHERN SEVERITY& THREAT FUNCJ HOME VST 94423 MD2U MANISHAEBKER EST PT 4 4 SRINATH SCHMID UNSTABLE/ LLC SIGNIF NEW PROB 60 MINS EMERGENCY 18598 EMERGENCY [place] 4 4 CARE LOREN DEPARTMEN PHYS T VISIT [facility] [place] HIGH/URGE NT SEVERITY HOME VST 45410 MD2U LOEBKER EST PT 4 4 SRINATH SCHMID UNSTABLE/ LLC SIGNIF NEW PROB [address] - 4 4 [facility] OUTPATIEN FT [facility] EMERGENCY 39193 EMERGENCY ELLEMAN 4 4 CARE SAMANTHA DEPARTMEN PHYS T VISIT [facility] [place] HIGH/URGE NT SEVERITY OFFICE 69147 [facility] OUTPATIEN 4 4 PLASTIC T [facility] 30 SURGERY [facility] - 4 4 [facility] OUTPATIEN [facility] ST - 4 [address] [facility] [address] [facility] OFFICE 787[address] ST AN OUTPATIEN 4 4 [facility] TILLMAN CHLOE T VISIT 15 PHYSICIAN MINUTES [facility] ST - 4 4 [facility] OUTPATIEN MED CTR T ENVIRONMENTAL SCIENCES PROFESSOR OFFICE 88701 ST AN OUTPATIEN 4 4 [facility] PRIMO CHLOE T VISIT 25 PHYSICIAN MINUTES S EMERGENCY 99080 EMERGENCY DEPT 4 4 CARE VISIT PHYS HIGH NORTHERN SEVERITY& THREAT [facility] ST - 4 4 [facility] OUTPATIEN FT [facility] OFFICE 73272 ST AN OUTPATIEN 4 4 [facility] PRIMO CHLOE T VISIT 25 PHYSICIAN MINUTES S EMERGENCY 802[address] ST VALERI KEYSHAWN 3 3 [facility] DEPARTMEN MED CTR T VISIT MODERATE SEVERITY OFFICE 09[address] [facility] OUTPATIEN 3 3 [facility] HEI T VISIT 15 PHYSICIAN MINUTES [facility] ST - 3 3 [facility] OUTPATIEN FT T CRUZ OFFICE 38809 ST AN OUTPATIEN 3 3 [facility]ACE PRIMO CHLOE T VISIT 15 PHYSICIAN MINUTES S EMERGENCY 94020 EMERGENCY DAVREN 3 3 CARE ANNETTE DEPARTMEN PHYS T VISIT [facility] HIGH/URGE NT SEVERITY EMERGENCY 90440 EMERGENCY [place] DEPT 3 3 CARE LOREN VISIT PHYS HIGH NORTHERN SEVERITY& THREAT FUNCJ OFFICE 17787 [facility] MARIANAEMEY OUTPATIEN 3 3 [facility] ER MAT T NEW 20 ORTHOPAE MINUTES EMERGENCY 83319 EMERGENCY DORY 3 3 CARE SANGEETA DEPARTMEN PHYS T VISIT [facility] HIGH/URGE NT SEVERITY OFFICE 67638 ST AN OUTPATIEN 3 3 CANDACE PRIMO CHLOE T VISIT 15 PHYSICIAN MINUTES S Emergency AUGUST Ruiz MD (ER) 3 16:45 3 18:38 [facility] EMERGENCY 84869 LEONEL COBOS DEPT 3 3 EMERGENCY VISIT SERVICES HIGH SEVERITY& THREAT FUNCJ OFFICE 94974 ST AN OUTPATIEN 3 3 CANDACE PRIMO CHLOE T VISIT 25 PHYSICIAN MINUTES S OFFICE [address] ST SCHACK OUTPATIEN 3 3 CANDACE LOREN T VISIT 15 PHYSICIAN MINUTES S OFFICE [address] ST AN OUTPATIEN 3 3 CANDACE PRIMO CHLOE T VISIT 25 PHYSICIAN MINUTES S Emergency AUGUST Ruiz MD (ER) 3 12:50 3 19:52 [facility] KE - 3 3 [facility] OUT[facility] T EMERGENCY 70850 KE 3 3 [facility] DEPARTMEN INC T VISIT MODERATE SEVERITY EMERGENCY 38703 LEONEL COBOS DEPT 3 3 EMERGENCY VISIT SERVICES HIGH SEVERITY& THREAT FUNCJ Emergency AUGUST Christie MD (ER) 3 17:15 3 19:13 [facility] EMERGENCY 94567 LEONEL VERDUZCO DEPT 3 3 EMERGENCY VISIT SERVICES HIGH SEVERITY& THREAT FUN OFFICE 55219 ST OUTPATIEN 3 3 CANDACE T VISIT FT 10 [facility] ST - 3 3 CANDACE OUTPATIEN FT [facility] ST - 3 [address] [facility] OFFICE [address] DEAN [facility] OUTPATIEN 3 3 CANDACE T VISIT 15 PHYSICIAN MINUTES [facility] ST - 3 [address] [facility] [facility] OFFICE [address]56[address] [facility] 3 CANDACE HEI T NEW 45 [facility] - 3 3 CANDACE OUTPATIEN FT [facility] OFFICE [address] [facility] OUTPATIEN 3 3 CANDACE T VISIT 15 PHYSICIAN MINUTES S OFFICE [address] DE[facility] OUTPATIEN 3 3 CANDACE T VISIT 25 PHYSICIAN MINUTES S OFFICE [address] [facility] OUTPATIEN 3 3 CANDACE T VISIT 25 PHYSICIAN MINUTES S EMERGENCY 12153 LEONEL FIELDS DEPT 3 3 EMERGENCY SAMANTHA VISIT SERVICES HIGH SEVERITY& THREAT [facility] - [facility] 2 2 Y [facility] T EMERGENCY 37821 UNIVERSIT 2 2 [facility] T VISIT LOW/MODER SEVERITY EMERGENCY 53659 LEONEL JOSEPH [facility] 2 2 EMERGENCY [facility] SERVICES T VISIT MODERATE SEVERITY OFFICE 88182 [facility]ALES CORALES OUTPATIEN 2 2 BEN BEN T VISIT 25 MINUTES [facility]OSPITAL [facility] 93573 UNIVERSIT 2 2 Y [facility] T VISIT MODERATE SEVERITY EMERGENCY 44928 DK FRIAS 2 2 MEDICAL DEPARTMEN SERV T VISIT FOUNDATIO HIGH/URGE NT SEVERITY OFFICE 10712 [facility] 2 2 ELIZABETH LONDONOU ION NEUROLOGY NEW/ESTAB PATIENT 40 MIN EMERGENCY 52809 DK PEREZ 2 2 MEDICAL SET DEPARTMEN SERV T VISIT FOUNDATIO HIGH/URGE NT SEVERITY EMERGENCY 25680 DK RENO 2 2 MEDICAL RYLIE DEPARTMEN SERV T VISIT FOUNDATIO HIGH/URGE NT SEVERITY OFFICE 72154 CORALFINA CORALES OUTPATIEN 2 2 BEN BEN T VISIT 15 MINUTES OFFICE 66163 CORALFINA CORALES OUTPATIEN 2 2 BEN BEN T NEW 45 MINUTES EMERGENCY 19778 DK REYES 2 2 MEDICAL I ALI DEPARTMEN SERV T VISIT FOUNDATIO HIGH/URGE NT SEVERITY EMERGENCY 98282 DK RENO 2 2 MEDICAL RYLIE DEPARTMEN SERV T VISIT FOUNDATIO HIGH/URGE NT SEVERITY [facility]OSPITAL [facility] - [facility] 78157 [facility] 2 2 [facility] NEW/ESTAB PSC PATIENT 60 MIN EMERGENCY 07029 GEILE LOBO GEILE LOBO DEPT 1 1 VISIT HIGH SEVERITY& THREAT FUNCJ EMERGENCY 91882 LEONEL DEMPSEY 1 1 EMERGENCY SCO DEPARTMEN SERVICES T VISIT MODERATE SEVERITY EMERGENCY 87509 DK REYES DEPT 1 1 MEDICAL I ALI VISIT SERV HIGH FOUNDATIO SEVERITY& THREAT FUNCJ OFFICE 85808 MOGILEVSK [facility] 1 I JOSE CRUZ I JOSE CRUZ T NEW 45 MINUTES EMERGENCY 71500 LEONEL BETANCOURT DEPT 1 1 EMERGENCY AK VISIT SERVICES HIGH SEVERITY& THREAT [facility] OFFICE [id number] [place] [facility] 1 1 MEDICAL CHLOE ION SERV NEW/ESTAB FOUNDATIO PATIENT 60 MIN OFFICE [id number] [facility] JOBY SUE [facility] 1 1 PA FAMILY ELL T VISIT MEDICINE 25 P MINUTES OFFICE [id number] [facility] III CONSULTAT 1 1 BAUTISTA III LYUBOV ION PSC N0 3 NEW/ESTAB PATIENT 30 MIN EMERGENCY [id number] [facility] DEPT 1 1 EMERGENCY VISIT SERVICES HIGH SEVERITY& THREAT [facility] OFFICE [id number] [facility] MILAGRO BELCHER [facility] 1 1 PA FAMILY T VISIT MEDICINE 15 P MINUTES HOSPITAL UNIVERSIT - 1 1 [facility]
--- OUTSIDE RECORDS SUMMARY | 2017-06-27 20:33 | External Medical Summary Rpt ---
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 Name Role Phone CAMBODIAN AMBULETTE Unavailable Unavailable AND AMBUL, CAMBODIAN AMBULETTE AND AMBUL CAMBODIAN AMBULETTE Unavailable Unavailable AND AMBUL, CAMBODIAN AMBULETTE AND AMBUL [facility] Unavailable Unavailable RESPONSE, [facility] RESPONSE [facility] Unavailable Unavailable RESPONSE, [facility] RESPONSE ARNOLD, ARNOLD Unavailable Unavailable ARNOLD, [...] Unavailable JAM [facility] Unavailable Unavailable SERVICE, [facility] Unavailable Unavailable SERVICE, [facility]ICE [facility], Unavailable Unavailable [facility]IC[facility] Unavailable Unavailable [facility], [facility] Unavailable Unavailable [facility], Unavailable Unavailable CLINIC PHARMACY [facility], Unavailable [facility]available [facility] Unavailable Unavailable [facility], [facility] [...] Unavailable DONNELL FIDEL, Unavailable Unavailable DONNELL FIDEL [facility] # [id number], Unavailable Unavailable [facility] # [id number] [facility] Unavailable Unavailable CENTER, [facility] DAVREN ANNETTE, DAVREN Unavailable Unavailable ANNETTE [...] Unavailable GEILE LOBO, GEILE LOBO Unavailable Unavailable [facility], Unavailable Unavailable [facility] CENTENO HARISH, Unavailable Unavailable CENTENO HARISH BAUTISTA III LYUBOV, BAUTISTA Unavailable Unavailable III LYUBOV GRUNKEMEYER MAT, Unavailable Unavailable GRUNKEMEYER MAT WALTERS LIL, WALTERS LIL Unavailable Unavailable [facility], [facility] Unavailable Unavailable [facility], Unavailable Unavailable [facility] Unavailable Unavailable [facility] [place] [facility] Unavailable Unavailable CARE, [facility] Unavailable Unavailable CARE, [facility] CARE [facility] Unavailable Unavailable INC, [facility] Unavailable Unavailable HOSPITAL P, [facility] HODAN HENRY, HODAN Unavailable Unavailable HENRY CROOKS MOL, CROOKS Unavailable Unavailable MOL BILLINGSLEY, BILLINGSLEY Unavailable Unavailable [facility], Unavailable Unavailable [facility] LUCRETIA, LUCRETIA Unavailable Unavailable LUCRETIA POOJA, LUCRETIA POOJA Unavailable Unavailable RAMOS SYLVIA, RAMOS SYLVIA Unavailable Unavailable OLMEDO, OLMEDO Unavailable Unavailable MCQUEEN TRA, MCQUEEN TRA Unavailable Unavailable INDEPENDENT Unavailable Unavailable ANESTHESIOLOGIST, INDEPENDENT ANESTHESIOLOGIST REHANA M NOLVAI, OD, Unavailable Unavailable PSC, REHANA DE SOUZA, OD, PSC ALVARADO I BAUTISTA III PSC Unavailable Unavailable N0 3, ALVARADO I BAUTISTA III PSC N0 3 RIVERS YE, RIVERS YE Unavailable Unavailable BRIANNA CHINMAY, BRIANNA Unavailable Unavailable CHINMAY RUTHIE CHR, RUTHIE Unavailable Unavailable CHR LEXA OSKAR, LEXA Unavailable Unavailable OSKAR [facility] Unavailable Unavailable [facility], [facility] KERMAN LYUBOV, KERMAN Unavailable Unavailable LYUBOV GLYNN NIV, GLYNN NIV Unavailable Unavailable Muriel Ruiz MD, Unavailable Unavailable Muriel Ruiz MD [facility] [id number] # Unavailable Unavailable [id number], [facility] [id number] # [id number] HAMZAH TUS, HAMZAH Unavailable Unavailable [...] SCHMID TRINIDAD LOREN, TRINIDAD Unavailable Unavailable LOREN [facility] Unavailable Unavailable SERVICES, [facility] MASROOR ALA, MASROOR Unavailable Unavailable ALA MCDANNOLD PEG, Unavailable Unavailable MCDANNOLD PEG [address], Unavailable Unavailable [address] [facility] Unavailable Unavailable [facility], [facility] MOSLEY LOREN, MOSLEY Unavailable Unavailable LOREN MOGILEVSKI JOSE CRUZ, Unavailable Unavailable MOGILEVSKI JOSE CRUZ MOGILEVSKI JOSE CRUZ, Unavailable Unavailable MOGILEVSKI JOSE CRUZ VISHAL HARISH, VISHAL Unavailable Unavailable HARISH LANETTE HELLEN, LANETTE HELLEN Unavailable Unavailable VAL OSMAN Unavailable Unavailable HEI [facility] Unavailable Unavailable [facility], [facility] PSC NICKELS RYLIE, NICKELS Unavailable Unavailable RYLIE AN PRIMO CHLOE, Unavailable Unavailable AN PRIMO CHLOE [facility], Unavailable Unavailable PLL[facility], [facility] ANNE RODRÍGUEZ Unavailable Unavailable [facility] Unavailable Unavailable [facility] Unavailable Unavailable [facility]ANCE [facility], [facility] Unavailable Unavailable [facility], [facility] RAINS ALL, RAINS ALL Unavailable Unavailable BETANCOURT AKM, BETANCOURT Unavailable Unavailable AKM RENUSCH, RENUSCH Unavailable Unavailable RENUSCH MEGHNA, RENUSCH Unavailable Unavailable MEGHNA ROEBKER JAM, ROEBKER Unavailable Unavailable JAM BOLDEN GAV, BOLDEN GAV Unavailable Unavailable SADEK MOH, SADEK MOH Un[facility]available [facility] Un[facility] Unavailable NEUROLOGY, [facility] SCALF MARII, SCALF MARII Unavailable Unavailable [...] Unavailable SOTINGEANU SOTINGEANU BEN, Unavailable Unavailable SOTINGEANU BEN RONNY, Unavailable Unavailable RONNY [facility] Unavailable Unavailable CR[facility]Z, [facility], Unavailable Unavailable [facility] Unavailable Unavailable [employer] [facility], [facility] [facility] [facility] Unavailable Unavailable PHYSICIANS, [facility], Unavailable Unavailable [facility] LOVETT JESSICA, LOVETT Unavailable Unavailable JESSICA TANOUS EDW, TANOUS Unavailable Unavailable EDW GAURAV ANGELA, GAURAV Unavailable Unavailable ANGELA [facility] Unavailable Unavailable [facility], [facility] Unavailable Unavailable [facility], [facility] Unavailable Unavailable GROUP ,, [facility] , [facility], [facility]available Unavailable [facility] Unavailable Unavailable #5, [facility] [address] Unavailable Unavailable RYLIE DEBBIE JR JAM, DEBBIE Unavailable Unavailable JR JAM [facility] Unavailable Unavailable MEDICINE P, [facility]IC[facility], Unavailable [facility] VASHI CHR, VASHI CHR Unavailable Unavailable WALKER FOR, WALKER Unavailable Unavailable FOR DORY SANGEETA, DORY Unavailable Unavailable SANGEETA [facility] Unavailable Unavailable [facility] DEAN HEL, DEAN HEL Unavailable Unavailable DOREEN COBOS, DOREEN COBOS Unavailable Unavailable [facility], Unavailable [facility]available [facility], Unavailable Unavailable [facility], Unavailable Unavailable [facility] VALERI KEYSHAWN, VALERI KEYSHAWN Unavailable Unavailable JORDAN RYA, JORDAN RYA Unavailable Unavailable Purpose Continuity of Care Document - 02-05-2011 through 2016 Problems Code Diagnosis DOS Provider Status E119 TYPE 2 06-17-2017 [place] DIABETES [facility] MELLITUS ELDER CARE WITHOUT COMPLICATIO NS R4182 ALTERED 06-04-2017 [place] [facility] STATUS [facility] UNSPECIFIED R443 HALLUCINATI 06-02-2017 [facility] AM[facility] UNSPECIFIED SERVICE E785 HYPERLIPIDE 05-28-2017 [facility] ADIS PHYSICIANS UNSPECIFIED GROUP I10 ESSENTIAL 05-28-2017 [facility] PRIMARY PHYSICIANS HYPERTENSIO GROUP N R079 CHEST PAIN 05-28-2017 [facility] UNSPECIFIED PHYSICIANS GROUP Z720 TOBACCO USE 05-28-2017 [facility] PH[facility]ANS GROUP Z8249 FAMILY HX 05-28-2017 [facility] ISCHEMIC PHYSICIANS HRT DZ OTH GROUP DZ CIRC SYSTEM [id number] EPILEPSY 05-27-2017 [facility] UNS NOT PHYSICIANS, INTRACT W/O PLLC STATUS EPILEPTICUS R569 UNSPECIFIED 05-27-2017 [facility] CONVULSIONS SERVICE E876 HYPOKALEMIA 05-26-2017 [facility], [facility] R071 CHEST PAIN 05-26-2017 [facility] ON PHYSICIANS, BREATHING [facility] F89174 OTHER LONG 05-26-2017 [facility] P DRUG THERAPY B95311 HORDEOLUM 05-23-2017 [facility] EXTERNUM [facility] LEFT LOWER INC EYELID J47368 HORDEOLUM 05-23-2017 [facility] INTERNUM PHYSICIANS, LEFT LOWER PLLC EYELID A14828 CELLULITIS 05-23-2017 [facility] OF LEFT PHYSICIANS, ORBIT [facility] G62515 UNSPECIFIED 05-23-2017 [facility] ASTHMA [facility] UNCOMPLICAT INC ED K53540 PAIN IN 05-13-2017 [facility] HIP MEDICAL IMAGING ASS R42 DIZZINESS 05-13-2017 [facility] AND AMBULANCE GIDDINESS SERVICE R55 SYNCOPE AND 05-13-2017 [facility] COLLAPSE PHYSICIANS, PLLC Y17FNRH UNSPECIFIED 05-13-2017 [facility] FALL AMBULANCE INITIAL SERVICE ENCOUNTER R05 COUGH 04-25-2017 [facility] R062 WHEEZING 04-25-2017 [facility] R918 OTHER 04-25-2017 [place] NONSPECIFIC MEDICAL ABNORMAL IMAGING ASS FINDING OF LUNG FIELD J0190 ACUTE 04-24-2017 [facility] SINUSITIS PHYSICIANS, UNSPECIFIED PLLC D05633 PAIN IN 04-24-2017 [place] LEFT MEDICAL SHOULDER IMAGING ASS M6282 RHABDOMYOLY 04-24-2017 [facility] SIS PHYSICIANS, PLLC R51 HEADACHE 04-24-2017 [facility] R531 WEAKNESS 04-24-2017 [facility] AMBULANCE SERVICE R7989 OTHER SPEC 04-24-2017 [facility] ABNORMAL PHYSICIANS, FINDINGS PLLC BLOOD CHEMISTRY B276WBJ TRAUMATIC 04-24-2017 [facility] ISCHEMIA OF PHYSICIANS, MUSCLE PLLC INITIAL ENCOUNTER Z1231 ENCOUNTER 04-20-2017 [place] SCREENING MEDICAL MAMMO MALIG IMAGING ASS NEOPLASM BREAST R69 ILLNESS 04-15-2017 [facility] UNSPECIFIED TRANSPORTAT ION SER H5213 MYOPIA 03-17-2017 [facility] J209 ACUTE 03-15-2017 [facility] BRONCHITIS [facility] UNSPECIFIED INC R110 NAUSEA 03-15-2017 [facility] AMBULANCE SERVICE M545 LOW BACK 02-03-2017 [facility] PAIN [facility] INC M6281 MUSCLE 02-03-2017 [facility] WEAKNESS [facility] GENERALIZED INC J3501 CHRONIC 01-13-2017 LAB OT[facility] TONSILLITIS [facility] E039 HYPOTHYROID 01-08-2017 [facility] ISM PHYSICIANS UNSPECIFIED LA E782 MIXED 01-08-2017 COMBINED HYPERLIPIDE PHYSICIANS ADIS [place] F3289 OTHER 12-19-2016 [facility] SPECIFIED PHYSICIANS DEPRESSIVE GROUP EPISODES G629 POLYNEUROPA 12-19-2016 [facility] THY PHYSICIANS UNSPECIFIED GROUP M150 PRIMARY 12-09-2016 [facility] GENERALIZED OSTEOARTHRI TIS Q93240 PAIN IN 09-27-2016 [place] RIGHT HIP MEDICAL IMAGING ASS J42978 PAIN IN 09-27-2016 [place] [facility] KNEE MEDICAL IMAGING ASS M549 DORSALGIA 09-27-2016 [facility] UNSPECIFIED AMBULANCE SERVICE Y942AUX CONTUSION 09-27-2016 [facility] LOWER BACK PHYSICIANS, & PELVIS PLLC INITIAL ENCOUNTER Q8110VG CONTUSION 09-27-2016 [facility] OF RIGHT PHYSICIANS, KNEE PLLC INITIAL ENCOUNTER W31521L LACERATION 08-31-2016 [facility] W/FB LT AMBULANCE UPPER ARM SERVICE SUBSEQUENT ENC R251 TREMOR 08-06-2016 [facility] W62377 PAIN IN 07-13-2016 [place] RIGHT WRIST MEDICAL IMAGING ASS M1963NG OTHER SPEC 07-13-2016 [facility] INJURIES RT AMBULANCE WRIST HAND SERVICE FINGERS INIT T8099YF UNSPECIFIED 07-13-2016 [facility] INJURY RT PHYSICIANS, WRIST HAND PLLC FINGERS INITIAL D7127PU CONTUSION 07-08-2016 [facility] OF SCALP PHYSICIANS, INITIAL PLLC ENCOUNTER G2023XY ABRASION 07-08-2016 [facility] UNSPECIFIED PHYSICIANS, PART HEAD PLLC INITIAL ENCOUNTER N6525EN UNSPECIFIED 07-08-2016 [facility] INJURY OF AMBULANCE HEAD SERVICE INITIAL ENCOUNTER R202 PARESTHESIA 06-27-2016 [facility] OF SKIN AMBULANCE SERVICE R401 STUPOR 06-26-2016 [facility] AMBULANCE SERVICE E871 HYPO-OSMOLA 05-20-2016 [facility] LITTia AND PHYSICIANS, HYPONATREMI PLLC A M542 CERVICALGIA 05-05-2016 [facility] Y522WNP OTHER 05-05-2016 [facility] SPECIFIED AMBULANCE INJURIES SERVICE HEAD INITIAL ENCOUNTER V78LAQV FALL FROM 05-05-2016 [facility] CHAIR AMBULANCE INITIAL SERVICE ENCOUNTER D2666WX LACERATION 04-21-2016 [facility] W/O FOREIGN PHYSICIANS, BODY SCALP PLLC INITIAL ENC A4130ES LACERATION 04-21-2016 [facility] W/O FB [facility]OS[facility] OTHER PART INC HEAD INITIAL ENC C29701 PAIN IN 04-07-2016 [facility] RIGHT LEG AMBULANCE SERVICE N46924 PAIN IN 04-07-2016 [place] RIGHT LOWER MEDICAL LEG IMAGING ASS M7989 OTHER 04-07-2016 [place] SPECIFIED MEDICAL SOFT TISSUE IMAGING ASS DISORDERS D126DUE UNSPECIFIED 04-07-2016 [place] INJURY OF MEDICAL NECK IMAGING ASS INITIAL ENCOUNTER E55846E CONTUSION 04-07-2016 [facility] UNS BACK PHYSICIANS, WALL THORAX PLLC INITIAL ENCOUNTER M4550ZP CONTUSION 04-07-2016 [facility] OF RIGHT PHYSICIANS, LOWER LEG PLLC INITIAL ENCOUNTER C7451LF UNS INJURY 04-07-2016 [place] RT LOWER MEDICAL LEG INITIAL IMAGING ASS ENCOUNTER M971WYF FALL ON 04-07-2016 [facility] FROM [facility] AMBULANCE STAIRS SERVICE STEPS INITIAL ENCOUNTER T1491 SUICIDE 03-14-2016 [facility] ATTEMPT AMBULANCE SERVICE L8759FF LACERATION 03-04-2016 [place] W/O FB UNS MEDICAL PART HEAD IMAGING ASS INITIAL ENC T89579 OTHER 02-14-2016 [facility] EPILEPSY [facility] NOT INC INTRACTABLE WITHOUT SE R56276 PAIN IN 02-14-2016 [place] UNSPECIFIED MEDICAL HIP IMAGING ASS K03417B STRAIN 02-14-2016 [facility] MUSCLE PHYSICIANS, FASCIA & PLLC TENDON LOW BACK INITIAL K8976YI UNSPECIFIED 02-14-2016 [place] INJURY MEDICAL LOWER BACK IMAGING ASS INITIAL ENCOUNTER Z9181 HISTORY OF 02-14-2016 [facility] FALLING [facility] INC D00909 CELLULITIS 01-19-2016 [facility] OF TRUNK PHYSICIANS, UNSPECIFIED PLLC J449 CHRONIC 01-14-2016 [facility] OBSTRUCTIVE MEDICAL PULMONARY RESPONSE DISEASE UNS R32 UNSPECIFIED 01-13-2016 [facility] URINARY AMBULANCE INCONTINENC SERVICE E H9802NB ABRASION 01-01-2016 [place] OTHER PART MEDICAL OF HEAD IMAGING ASS INITIAL ENCOUNTER A306E6J CONCUSSION 01-01-2016 [facility] WITHOUT LOC PHYSICIANS, INITIAL PLLC ENCOUNTER G8911 ACUTE PAIN 12-22-2015 [facility] DUE TO AMBULANCE TRAUMA SERVICE M0866MT CONTUSION 12-22-2015 [facility] OTHER PART PHYSICIANS, OF HEAD PLLC INITIAL ENCOUNTER F88061S CONTUSION 12-22-2015 [facility] RT FRONT [facility] WALL THORAX INC INITIAL ENCOUNTER H46960L CONTUSION 12-22-2015 [facility] LEFT FRONT [facility]OS[facility] WALL THORAX INC INITIAL ENC H18649Q CONTUSION 12-22-2015 [facility] UNS FRONT PHYSICIANS, WALL THORAX PLLC INITIAL ENCNTR L0806BM CONTUSION 12-22-2015 [facility] OF LEFT MEM [facility]OS[facility] KNEE INC INITIAL ENCOUNTER Z043 ENCOUNTER 12-22-2015 [place] EXAM & MEDICAL OBSERVATION IMAGING ASS FOLLOW OTH ACCIDENT G38935 GEN 09-29-2015 [facility] IDIOPATHIC PHYSICIANS, EPILEPSY PLLC NOT INTRACT W/O STAT EPI G4089 OTHER 09-29-2015 [facility] SEIZURES [facility] INC R400 SOMNOLENCE 09-27-2015 [facility] AMBULANCE SERVICE R404 TRANSIENT 09-23-2015 [place] ALTERATION MEDICAL OF IMAGING ASS AWARENESS O491E1D ADVERSE 09-23-2015 [facility] EFFECT [facility] HYDANTOIN INC DERIVATIVES INITIAL ENC G824L8W UNDERDOSING 09-23-2015 [facility] HYDANTOIN PHYSICIANS, DERIVATIVES PLLC INITIAL ENCNTR M43JWVZ FALL FROM 09-18-2015 [facility] INITIAL AMBULANCE ENCOUNTER SERVICE G4733 OBSTRUCTIVE 09-01-2015 [facility]NEA ADULT MEDICAL PEDIATRIC EQUIPME K529 NONINFECTIV 08-02-2015 [facility] E PHYSICIANS GASTROENTER GROUP ITIS & COLITIS UNS I509 HEART 07-23-2015 [facility] FAILURE [facility] UNSPECIFIED INC R197 DIARRHEA 07-17-2015 [facility] UNSPECIFIED PHYSICIANS GROUP Z1211 ENCOUNTER 07-17-2015 [facility] SCREENING PHYSICIANS MALIGNANT GROUP NEOPLASM OF COLON J029 ACUTE 06-29-2015 COMBINED PHARYNGITIS PHYSICIANS [place] UNSPECIFIED Z23 ENCOUNTER 06-29-2015 [facility] IMMUNIZATIO N R102 PELVIC AND 06-26-2015 [place] PERINEAL MEDICAL PAIN IMAGING ASS T3172RB CONTUSION 06-26-2015 [facility] OF RIGHT PHYSICIANS, HIP INITIAL PLLC ENCOUNTER 73040 DEGEN 06-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 [facility] [place] LUMBAR/LUMB ORTHOPAEDIC OSACRAL S PLC INTERVERTEB RAL DISC 34944 06-07-2015 [facility] TRANSPORTAT ION SER 920 CONTUSION 05-29-2015 [facility] OF FACE PHYSICIANS, SCALP AND PLLC NECK EXCEPT EYE 35761 HEAD 05-29-2015 [facility] INJURY, PHYSICIANS, UNSPECIFIED PLLC E8889 UNSPECIFIED 05-29-2015 [facility] FALL AMBULANCE SERVICE 7242 LUMBAGO 05-24-2015 [facility] 490 BRONCHITIS 05-14-2015 [facility] NOT PHYSICIANS, SPECIFIED PLLC ACUTE OR CHRONIC 514 PULMONARY 05-14-2015 [facility] CONGESTION AMBULANCE AND SERVICE HYPOSTASIS 17859 SHORTNESS 05-14-2015 [place] OF BREATH MEDICAL IMAGING ASS 13959 WHEEZING 05-14-2015 [facility] AMBULANCE SERVICE 7862 COUGH 05-14-2015 [facility] 06293 OBSTRUCTIVE 05-07-2015 [facility] SLEEP PHYSICIANS APNEA GROUP 470 DEVIATED 05-07-2015 [facility] NASAL PHYSICIANS SEPTUM GROUP 4779 ALLERGIC 05-07-2015 [facility] RHINITIS PHYSICIANS CAUSE GROUP UNSPECIFIED 33994 MACROGLOSSI 05-07-2015 [facility] A PHYSICIANS GROUP 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 7245 UNSPECIFIED 02-16-2015 RICKIE COLVIN BACKACHE 73819 DIAB W/O 01-17-2015 [facility] COMP TYPE [place] II/UNS NOT LLC STATED UNCNTRL 23867 OBESITY, 01-17-2015 [facility] UNSPECIFIED [place] LLC 4019 UNSPECIFIED 01-17-2015 [facility] ESSENTIAL [place] HYPERTENSIO LLC N 14087 UNSPECIFIED 01-17-2015 [facility] SLEEP [place] APNEA [facility] 23753 OTHER 01-04-2015 [facility] CHRONIC [place] PAIN [facility] 3569 UNSPEC 01-04-2015 [facility] HEREDIT&IDI [place] OPATHIC [facility] PERIPHERAL NEUROPATHY 98737 ASTHMA, 01-04-2015 [facility]PECIFIED [facility] 217 BENIGN 12-27-2014 [facility]OPLASM OF [facility] 2689 UNSPECIFIED 12-27-2014 VITAMIN D [facility] 2768 HYPOPOTASSE 12-27-2014 [facility] 70116 UNSPECIFIED 12-27-2014 [facility] SITE UNSPECIFIED V1249 OTHER 12-27-2014 DISORDERS [facility] SYSTEM&SENS E ORGANS V741 SCREENING 12-27-2014 EXAMINATION [facility] PULMONARY TUBERCULOSI S 6259 UNSPEC 11-30-2014 SYMPTOM [facility] PHYSICIANS W/FEMALE GENITAL ORGANS 95485 CHEST PAIN 11-20-2014 [place] [address] OTHER CHEST 11-16-2014 [facility] PAIN [place] [facility] 2724 OTHER AND 11-02-2014 [facility] UNSPECIFIED [facility] [facility] HYPERLIPIDE ADIS 53063 OTHER ACUTE 11-02-2014 [facility] PAIN [facility] 38599 DIARRHEA 11-02-2014 [facility] 0093 DIARRHEA OF 08-31-2014 [facility] PRESUMED [place] INFECT[facility] ORIGIN V4589 OTHER 08-10-2014 POSTSURGICA [facility] STATUS PHYSICIANS OTHER 7231 CERVICALGIA 07-15-2014 [facility] 7802 SYNCOPE AND 07-15-2014 [facility] COLLAPSE [facility] 7840 HEADACHE 07-15-2014 [facility] 8509 UNSPECIFIED 07-15-[address] [facility] 83690 CONTUSION 07-15-2014 EMERGENCY OF BACK CARE PHYS [facility] V1588 PERSONAL 07-15-2014 EMERGENCY HISTORY OF CARE PHYS FALL [facility] 2859 UNSPECIFIED 05-29-2014 [facility] ANEMIA [facility] 24623 OSTEOARTHRO 05-29-2014 [facility] S UNSPEC YFN GEN/LOC OTH HOLDINGS SPEC SITES 7062 SEBACEOUS 05-17-2014 THE PLASTIC [facility]ST [facility] , 12601 PSYCHOPHYSI 05-06-2014 EMERGENCY AMANDA VISUAL CARE PHYS DISTURBANCE NORTHERN S 7801 HALLUCINATI 05-06-2014 EMERGENCY ONS CARE PHYS [facility] 78521 OPEN WOUND 05-06-2014 EMERGENCY WRIST CARE PHYS WITHOUT NORTHERN MENTION COMPLICATIO N 2512 HYPOGLYCEMI 04-20-2014 [facility] A, [place] UNSPECIFIED AMBULANCE TAXIN 24253 ASTHMA 04-20-[address] ST UNSPECIFIED [facility] WITH FT CRUZ EXACERBATIO N 7810 ABNORMAL 04-20-2014 ST INVOLUNTARY [facility] MOVEMENTS FT CRUZ V1582 PERS HX 04-20-2014 ST TOBACCO USE [facility] PRESENTING FT CRUZ [facility] V5869 LONG-TERM 04-20-2014 ST (CURRENT) [facility] USE OF AYAAN ARROYO OTHER MEDICATIONS 7213 LUMBOSACRAL 04-05-2014 ST [facility] SPONDYLOSIS FT CRUZ WITHOUT MYELOPATHY 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 39203 OTHER SIGN 01-05-2014 ST AND SYMPTOM [facility] IN BREAST FT CRUZ 68177 UNSPECIFIED 01-05-2014 RADIOLOGY ABNORMAL ASSOCIATES MAMMOGRAM OF [facility] V1529 PERSONAL 01-05-2014 ST HISTORY OF [facility] SURGERY TO AYAAN ARROYO OTHER ORGANS 82159 UNSPEC 12-27-2013 ST EPILEPSY [facility] WITHOUT PHYSICIANS MENTION INTRACT EPILEPSY 6829 CELLULITIS 12-27-2013 ST AND ABSCESS [facility] OF PHYSICIANS UNSPECIFIED SITE 86371 NUCLEAR 12-13-2013 REHANA Shannon CATARACTNOLVIA, OD, NONSENILE PSC 3671 MYOPIA 12-13-2013 REHANA DE SOUZA, OD, PSC 2599 UNSPECIFIED 11-18-2013 ST ENDOCRINE [facility] DISORDER PHYS[facility]ANS 91658 MORBID 11-18-2013 ST OBESITY [facility] 7409 UNSPECIFIED 11-18-2013 ST SINUSITIS [facility] 64085 PAIN IN 11-12-2013 [facility]IA JOINT, CO MULTIPLE AMBULANCE SITES TAXIN 63848 OTHER 11-12-2013 [facility] ALTERATION CO OF AMBULANCE CONSCIOUSNE TAXIN SS 5262 OTHER CYSTS 11-11-2013 ST OF JAWS [facility] FT CRUZ 6820 CELLULITIS 11-04-2013 ST AND ABSCESS [facility] OF FACE PHYSICIANS 13517 NONUNION OF 10-04-2013 [place] FRACTURE H ORTHOPAE 51709 CLOSED 10-04-2013 [place] FRACTURE H ORTHOPAE DISTAL PHALANX OR PHALANGES HAND 8472 LUMBAR 09-20-2013 ST SPRAIN AND [facility] V7260 LABORATORY 08-09-2013 ST EXAMINATION [facility] FT CRUZ UNSPECIFIED 44934 CLOSED 08-03-2013 INDEPENDENT FRACTURE UNSPEC ANESTHESIOL PHALANX/PHA OGIST LANGES HAND 20987 OTHER 08-01-2013 ST ABNORMAL [facility] GLUCOSE PHYSICIANS V0481 NEED 08-01-2013 ST PROPHYLACTI [facility] C PHYSICIANS VACCINATION &INOCULATIO N FLU V180 FAMILY 08-01-2013 ST HISTORY OF [facility] DIABETES PHYSICIANS MELLITUS 93133 OTHER 07-17-2013 RADIOLOGY CONVULSIONS ASSOCIATES OF [facility] 24464 ALTERED 07-17-2013 [facility] MENTAL [facility] STATUS OF [facility] E8842 ACCIDENTAL 07-17-2013 VICTORIA FALL FROM CO CHAIR AMBULANCE TAXIN 57547 GENERALIZED 06-21-2013 [place] PAIN AMBULETTE AND AMBUL 35011 PLANTAR 06-14-2013 ST FASCIAL [facility] FIBROMATOSI PHYSICIANS S 9595 INJURY 06-14-2013 ST OTHER AND [facility] UNSPECIFIED PHYSICIANS FINGER 305.1 305.1 05-23-2013 [place] TOBACCO USE [facility] 401.9 401.9 05-23-2013 [place] HYPERTENSIO [facility] N NOS Hospital 493.90 493.90 05-23-2013 [place] ASTHMA, [facility] UNSPECIFIED Hospital 780.39 780.39 05-23-2013 [place] OTHER [facility] CONVULSIONS Hospital 786.59 786.59 05-23-2013 [place] CHEST PAIN [facility] Hospital 39048 UNSPECIFIED 05-17-2013 ST [facility] CONSTIPATIO PHYSICIANS N 3453 EPILEPTIC 04-09-2013 ST GRAND MAL [facility] STATUS PHYSICIANS 3688 OTHER 04-09-2013 ST SPECIFIED [facility] VISUAL PHYSICIANS DISTURBANCE S 42269 UNSPECIFIED 03-23-2013 ST [facility] CONJUNCTIVI PHYSICIANS TIS 70050 OTHER 03-22-2013 ST MUCOPURULEN CANDACE T PHYSICIANS CONJUNCTIVI TIS 847.0 847.0 02-21-2013 Ke SPRAIN OF [facility] 8470 NECK SPRAIN 02-21-2013 [facility] EMERG[facility] SERVICES E849.0 E849.0 02-21-2013 Ke ACCIDENT IN [facility] E884.2 E884.2 FALL 02-21-[address] [facility] V6700 FOLLOW-UP 02-10-2013 ST EXAMINATION C[facility] FOLLOWING FT CRUZ UNSPEC SURGERY 00120 ESOPHAGEAL 02-01-2013 ST REFLUX [facility] FT CRUZ 6101 DIFFUSE 02-01-2013 ST CYSTIC [facility] MASTOPATHY FT CRUZ 6102 FIBROADENOS 02-01-2013 ST IS OF [facility] BREAST PHYSICIANS 6104 MAMMARY 02-01-2013 ST DUCT [facility] ECTASIA PHYSICIANS 6108 OTHER 02-01-2013 ST SPECIFIED [facility] BENIGN PHYSICIANS MAMMARY DYSPLASIAS 6110 INFLAMMATOR 02-01-2013 ST Y DISEASE [facility] OF BREAST PHYSICIANS 15153 LUMP OR 02-01-2013 INDEPENDENT MASS IN BREAST ANESTHESIOL OGIST 45030 OTHER 02-01-2013 RAD[facility]OLOG[facility] ABNORMAL ASSOC[facility]ATES FINDING OF [facility] RADIOLOGICA L EXAM BREAST V103 PERSONAL 02-01-2013 ST HISTORY OF CAND[facility] MALIGNANT FT CRUZ NEOPLASM OF BREAST 97856 UNS ADVRS 01-28-2013 ST EFF UNS RX [facility] MEDICINAL&B PHYSICIANS IOLOGICAL SBSTNC V7284 UNSPECIFIED 01-27-2013 ST CANDACE PRE-OPERATI AYAAN ARROYO VE EXAMINATION 03015 MASTODYNIA 01-04-2013 RADIOLOGY [facility] OF [facility] V4981 ASYMPTOMATI 01-04-2013 ST C C[facility]ACE POSTMENOPAU AYAAN ARROYO PASTORA STATUS 2559 UNSPECIFIED 10-30-2012 [facility] DISORDER CO OF ADRENAL AMBULANCE [facility] TAXIN 7921 NONSPECIFIC 10-14-2012 ST ABNORMAL CAND[facility] FINDING IN PHYSICIANS STOOL CONTENTS V163 FAMILY 09-09-2012 [facility] HISTORY OF GNOSTICIST MALIGNANT HOSP NEOPLASM OF BREAST 2722 MIXED 04-28-2012 [facility] HYPERLIPIDE ADIS 4011 ESSENTIAL 04-28-2012 [facility] HYPERTENSIO N, BENIGN 78097 OTH FORM 04-25-2012 [facility] RECUR SEIZUR NO INTRACT EPIL 28918 LOC-REL 04-12-2012 [facility] W/CPS NEUROLOGY W/INTRACTAB LE EPIL 45179 GEN CONVUL 04-02-2012 [place] [facility] SERV W/O MENTION FOUNDATIO INTRACT EPILEPSY 4178 OTHER 04-02-2012 [place] [facility] SPECIFIED SERV DISEASE OF FOUNDATIO PULMONARY CIRCULATION 7820 DISTURBANCE 04-02-2012 [place] [facility] OF SKIN SERV SENSATION FOUNDAT[place] 57157 INJURY OF 04-02-2012 [place] [facility] FACE AND SERV NECK OTHER FOUNDATIO AND UNSPECIFIED 78426 OTHER 04-02-2012 [place] [facility] INJURY OF SERV CHEST WALL FOUNDATIO 21656 OTHER 04-02-2012 [place] [facility] IN[facility]URY OF SERV OTHER SITES FOUNDATIO OF TRUNK 9597 INJURY 04-02-2012 [place] [facility] OTHER&UNSPE SERV CIFIED KNEE FOUNDATIO LEG ANKLE&FOOT 6826 CELLULITIS 03-30-2012 [facility] BEN AND ABSCESS OF LEG EXCEPT FOOT 00958 OTHER 03-23-2012 [place] [facility] DISEASES OF SERV NASAL FOUNDATIO CAVITY AND SINUSES 7197 DIFFICULTY 03-17-2012 [place] [facility] IN WALKING SERV FOUNDATIO 9596 INJURY 03-17-2012 [place] [facility] OTHER AND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 [address] [place] [address] ADULT; ELDER ELDER PER 15 CARE CARE MINUTES DAY CARE S5100 KE DEMP[facility] SERVICES [address] [place] [address] ADULT; ELDER ELDER PER 15 CARE CARE MINUTES HOME CARE S5108 KE DEMPSEY TRAINING [address] [place] [address] ELDER ELDER CARE CARE CARE CLIENT PER 15 MIN HOME CARE S5108 KE DEMPSEY TRAINING [address] [place] [address] ELDER ELDER CARE CARE CARE CLIENT PER 15 MIN DAY CARE S5100 KE DEMP[facility] SERVICES [address] [place] [address] ADULT; ELDER ELDER PER 15 CARE CARE MINUTES DAY CARE S5100 KE [facility] [address] [place] [address] ADULT; ELDER ELDER PER 15 CARE CARE MINUTES HOME CARE S5108 KE DEMPSEY TRAINING [address] [place] [address] ELDER ELDER CARE CARE CARE CLIENT PER 15 MIN HOME CARE S5108 KE DEMPSEY TRAINING [address] [place] [address] ELDER ELDER CARE CARE CARE CLIENT PER 15 MIN DAY CARE S5100 KE DEMP[facility] SERVICES [address] [place] [address] ADULT; ELDER ELDER PER 15 CARE CARE MINUTES DAY CARE S5100 KE DEMP[facility] [address] [place] [address] ADULT; ELDER ELDER PER 15 CARE CARE MINUTES HOME CARE S5108 KE DEMPSEY TRAINING 7 [facility] ELDER ELDER CARE CARE CARE CLIENT PER 15 MIN HOME CARE S5108 KE DEMPSEY TRAINING 7 [facility] ELDER ELDER CARE CARE CARE CLIENT PER 15 MIN DAY CARE S5100 KE DEMPSE[facility] SERVICES [address] [place] [address] ADULT; ELDER ELDER PER 15 CARE CARE MINUTES DAY CARE S5100 KE DEMP[facility] [address] [place] [address] ADULT; ELDER ELDER PER 15 CARE CARE MINUTES HOME CARE S5108 KE DEMPSEY TRAINING 7 [facility] ELDER ELDER CARE CARE CARE CLIENT PER 15 MIN HOME CARE S5108 KE DEMPSEY TRAINING 7 [facility] ELDER ELDER CARE CARE CARE CLIENT PER 15 MIN DAY CARE S5100 KE DEMP[facility] SERVICES [address] [place] [address] ADULT; ELDER ELDER PER 15 CARE CARE MINUTES DAY CARE S5100 KE DEMP[facility] SERVICES [address] [place] [address] ADULT; ELDER ELDER PER 15 CARE CARE MINUTES HOME CARE S5108 KE DEMPSEY TRAINING 7 [facility] ELDER ELDER CARE CARE CARE CLIENT PER 15 MIN HOME CARE S5108 KE DEMPSEY TRAINING 7 [facility] ELDER ELDER CARE CARE CARE CLIENT PER 15 MIN DAY CARE S5100 KE DEMP[facility] SERVICES [address] [place] [address] ADULT; ELDER ELDER PER 15 CARE CARE MINUTES DAY CARE S5100 KE [facility] SERVICES [address] [place] [address] ADULT; ELDER ELDER PER 15 CARE CARE MINUTES HOME CARE S5108 KE DEMPSEY TRAINING 7 [facility] ELDER ELDER CARE CARE CARE CLIENT PER 15 MIN HOME CARE S5108 KE DEMPSEY TRAINING 7 [facility] ELDER ELDER CARE CARE CARE CLIENT PER 15 MIN DAY CARE S5100 KE DEMP[facility] SERVICES [address] [place] [address] ADULT; ELDER ELDER PER 15 CARE CARE MINUTES DAY CARE S5100 KE DEMP[facility] SERVICES [address] [place] [address] ADULT; ELDER ELDER PER 15 CARE CARE MINUTES HOME CARE S5108 KE DEMPSEY TRAINING 7 [facility] ELDER ELDER CARE CARE CARE CLIENT PER 15 MIN OPHTH [address] [place] [address] [facility]ISION XM&[facility]AL [facility] COMPRHNSV ESTAB PT 1/> HOME CARE S5108 KE KE TRAINING [address] [place] [address] ELDER ELDER CARE CARE CARE CLIENT PER 15 MIN DAY CARE S5100 [address] DEM[address]Y [address] ADULT; ELDER ELDER PER 15 CARE CARE MINUTES AMBULANCE A0429 [facility] 7 AMBULANCE AMBULANCE BLS SERVICE SERVICE EMERGENCY TRANSPORT GROUND A0425 [facility] AMBULANCE PER SERVICE SERVICE STATUTE MILE CUL BACT 55052 KE DEMPSEY XCPT 7 [facility] URINE INC INC BLOOD/STO OL AEROBIC ISOL BLOOD 20640 KE DEMPSEY COUNT 7 [facility] COMPLETE INC INC AUTO&[place] [address] KE DEMPSEY STREPTOCO 7 [facility] CCUS INC INC GROUP A RADIOLOGI 73586 [place] [facility] 7 MEDICAL EXAMINATI IMAGING [place] [address] KE DEMPSEY INFUSION 7 [facility] THERAPY INC INC PROPHYLAX [place] [address] KE KE INFUSION 7 [facility] THERAPY/P INC INC ROPHYLAXI S /DX 1ST TO 1 [place] [address] KE KE INFUSION 7 [facility] THER INC INC PROPH ADDL SEQUENTIA L TO 1 HR COMPREHEN 22757 KE KE SIVE 7 [facility] METABOLIC INC INC PANEL NONEMERG A0120 [facility] FEDERATED TRNSPRT: 7 MINI-BUS TRANSPORT TRANSPORT MTN ATION SER ATION SER AREA/OT SYS DAY CARE S5100 [address] [place] [address] ADULT; ELDER ELDER PER 15 CARE [...] PREPARATI ON; PER MEAL DAY CARE S[address] ADULT; ELDER ELDER PER 15 CARE CARE MINUTES NONEMERG A0120 [facility] TRNSPRT: 7 MINI-BUS TRANSPORT TRANSPORT MTN ATION SER ATION SER AREA/OT SYS DAY CARE S[address] ADULT; ELDER ELDER PER 15 CARE [...] PREPARATI ON; PER MEAL DAY CARE S[address] ADULT; ELDER ELDER PER 15 CARE [...] PREPARATI ON; PER MEAL DAY CARE S[address] ADULT; ELDER ELDER PER 15 CARE CARE MINUTES DAY CARE S[address] ADULT; ELDER ELDER PER 15 CARE CARE MINUTES HOME S5170 [facility] CO. ADULT [...] PER MEAL DAY CARE S5100 [address] [place] [address] ADULT; ELDER ELDER PER 15 CARE CARE MINUTES THERAPEUT 49216 KE DEMPSEY IC PX 1/> 7 [facility] AREAS INC INC EACH 15 MIN EXERCISES APPLICATI 55375 KE DEMPSEY ON 7 [facility] MODALITY INC INC 1/> AREAS HOT/COLD PACKS APPL 62489 KE DEMPSEY MODALITY 7 [facility] 1/> AREAS INC INC ULTRASOUN D EA 15 MIN APPL 31571 KE DEMPSEY MODALITY 7 [facility] 1/> AREAS INC INC ELEC STIMJ UNATTENDE D DAY CARE S5100 KE DEMPSEY [address] ADULT; ELDER ELDER PER 15 CARE CARE MINUTES THERAPEUT 67604 KE DEMPSEY IC PX 1/> 7 [facility] AREAS INC INC EACH 15 MIN EXERCISES NONEMERG A0120 [facility] FEDERATED TRNSPRT: 7 MINI-BUS TRANSPORT TRANSPORT MTN ATION SER ATION SER AREA/OTH SYS APPL 96303 KE DEMPSEY MODALITY 7 [facility] 1/> AREAS INC INC ULTRASOUN D EA 15 MIN APPLICATI 36975 KE DEMPSEY ON 7 [facility] MODALITY INC INC 1/> AREAS HOT/COLD PACKS APPL 08417 KE DEMPSEY MODALITY 7 [facility] 1/> AREAS INC INC ELEC STIMJ UNATTENDE D DAY CARE S5100 [address] [place]Y [address] ADULT; ELDER ELDER PER 15 CARE CARE MINUTES HOME S5170 KE DEMPSEY DELIV 7 CO. ADULT CO. ADULT MEALS DAY DAY INCLUDING ELDER ELDER PREPARATI ON; PER MEAL PHYSICAL 27271 KE DEMPSEY THERAPY 7 [facility] N MOD COMPLEX 30 MINS HOME S5170 KE DEMPSEY DELIV 7 CO. ADULT CO. ADULT MEALS DAY DAY INCLUDING ELDER ELDER PREPARATI ON; PER MEAL DAY CARE S5100 KE DEMPSEY [address] ADULT; ELDER ELDER PER 15 CARE CARE MINUTES NONEMERG A0120 FEDERATED FEDERATED TRNSPRT: 7 MINI-BUS TRANSPORT TRANSPORT MTN ATION SER ATION SER AREA/OTH SYS DAY CARE S5100 KE DEMPSEY [address] ADULT; ELDER ELDER PER 15 CARE CARE MINUTES DAY CARE S[address] ADULT; ELDER ELDER PER 15 CARE CARE MINUTES DRUG 63385 LAB OTIS LAB OTIS SCREEN 7 YFN YFN [employer] SWAPNIL LEVETIRAC ETAM NONEMERG A0120 [facility] FEDERATED TRNSPRT: 7 MINI-BUS TRANSPORT TRANSPORT MTN ATION SER ATION SER AREA/OTH SYS BLOOD 17313 COMBINED COMBINED COUNT 7 PHYSICIAN PHYSICIAN COMPLETE S LA S LA AUTO&AUTO DIFRNTL WBC LIPID 12755 COMBINED COMBINED PANEL 7 [place] [address] COMBINED COMBINED FREE 7 PHYSICIAN PHYSICIAN THYROXINE S LA S LA COMPREHEN 36309 COMBINED COMBINED SIVE 7 PHYSICIAN PHYSIC[place] [address] COMBINED COMBINED THYROID 7 PHYSICIAN PHYSICIAN STIMULATI S LA S LA NG HORMONE TSH INJECTION J1100 [facility] FR[facility]MAN 7 PHYSICIAN DEXAMETHO S GROUP SONE SODIUM PHOSPHATE 1 MG INJECTION J0696 [facility] 7 PHYSICIAN CEFTRIAXO S GROUP NE SODIUM PER 250 MG THERAPEUT 66696 [facility] FR[facility] IC 7 PHYSICIAN PROPHYLAC S GROUP TIC/DX INJECTION SUBQ/IM FOR DIAB A5512 ELITE ELITE ONLY MX 7 MEDICAL MEDICAL DNSITY SUPPLY SUPPLY INSRT [facility] [employer] [facility] FORMD PRFAB EA DIAB ONLY A5500 ELITE ELITE FIT CSTM 7 MEDICAL MEDICAL PREP&SPL SUPPLY SUPPLY [employer] DNSITY INSRT SBSQ 04650 [facility] 7 FACILITY CARE/DAY E/M STABLE 10 MIN NONEMERG A0120 [facility] FEDERATED TRNSPRT: 7 MINI-BUS TRANSPORT TRANSPORT MTN ATION SER ATION SER AREA/OTH SYS DRUG 25528 LAB OTIS LAB OTIS SCREEN 7 [facility] YFN [employer] SWAPNIL LEVETIRAC ETAM NONEMERG A0120 FEDERATED FEDERATED TRNSPRT: 7 MINI-BUS TRANSPORT TRANSPORT MTN ATION SER ATION SER AREA/OTH SYS SBSQ 90820 [facility] 7 FACILITY CARE/DAY E/M STABLE 10 MIN NONEMERG A0120 FEDERATED FEDERATED TRNSPRT: 7 MINI-BUS TRANSPORT TRANSPORT MTN ATION SER ATION SER AREA/OTH SYS NONEMERG A0120 [facility] FEDERATED TRNSPRT: 7 MINI-BUS TRANSPORT TRANSPORT MTN ATION SER ATION SER AREA/OTH SYS DRUG 16628 LAB OTIS LAB OTIS SCREEN 7 YFN YFN [employer] SWAP[employer]IL LEVETIRAC ETAM NONEMERG A0120 FEDERATED FEDERATED TRNSPRT: 7 MINI-BUS TRANSPORT TRANSPORT MTN ATION SER ATION SER AREA/OTH SYS E/M 41413 RICKIE DAMIAN [facility] 7 NURSING FACILITY ASSESS STABLE 30 MIN DRUG 90019 COMBINED COMBINED SCREEN 7 PHYSICIAN PHYSICIAN QUANTITAT S LA S LA SWAPNIL PHENYTOIN TOTAL NONEMERG A0120 FEDERATED FEDERATED TRNSPRT: 7 MINI-BUS TRANSPORT TRANSPORT MTN ATION SER ATION SER AREA/OTH SYS NONEMERG A0120 FEDERATED FEDERATED TRNSPRT: 7 MINI-BUS TRANSPORT TRANSPORT MTN ATION SER ATION SER AREA/OTH SYS GROUND A0425 [facility] 7 AMBULANCE AMBULANCE PER SERVICE SERVICE STATUTE MILE AMBULANCE A0429 [facility] SERVICE 7 AMBULANCE AMBULANCE BLS SERVICE SERVICE EMERGENCY TRANSPORT RADEX HIP 92706 [facility] 7 MEDICAL UNILATERA IMAGING L WITH ASS PELVIS 2-3 VIEWS RADIOLOGI 27232 [facility] CHE[facility] C 7 MEDICAL EXAMINATI IMAGING ON KNEE 3 ASS VIEWS RADEX 94201 [facility] SPINE 7 MEDICAL LUMBOSACR IMAGING AL 2/3 ASS VIEWS DRUG 17688 LAB OTIS LAB OTIS SCREEN 7 YFN YFN [employer] SWAPNIL LEVETIRAC ETAM DRUG 12105 COMBINED COMBINED SCREEN 7 PHYSICIAN PHYSICIAN QUANTITAT S LA S LA SWAPNIL PHENYTOIN TOTAL AMBULANCE A0429 [facility] 6 AMBULANCE AMBULANCE BLS SERVICE SERVICE EMERGENCY TRANSPORT GROUND A0425 [facility] AMBULANCE PER SERVICE SERVICE STATUTE MILE RADIOLOGI 18005 [facility] C 6 MEDICAL EXAMINATI IMAGING ON CHEST ASS SINGLE VIEW FRONTAL DRUG 20275 COMBINED COMBINED SCREEN 6 PHYSICIAN PHYSICIAN QUANTITAT S LA S LA SWAPNIL PHENYTOIN TOTAL SBSQ 28017 [facility] 6 FACILITY CARE/DAY E/M STABLE 10 MIN NONEMERG A0120 [facility] FEDERATED TRNSPRT: 6 MINI-BUS TRANSPORT TRANSPORT MTN ATION SER ATION SER AREA/OTH SYS NONEMERG A0120 [facility] FEDERATED TRNSPRT: 6 MINI-BUS TRANSPORT TRANSPORT MTN ATION SER ATION SER AREA/OTH SYS GROUND A0425 [facility]ANCE AMBULANCE PER SERVICE SERVICE STATUTE MILE AMBULANCE A0429 [facility] 6 AMBULANCE AMBULANCE BLS SERVICE SERVICE EMERGENCY TRANSPORT DRUG 46674 COMBINED COMBINED SCREEN 6 PHYSICIAN PHYSICIAN QUANTITAT S LA S LA SWAPNIL PHENYTOIN TOTAL DRUG 40482 LAB OTIS LAB OTIS SCREEN 6 YFN YFN [employer] SWAP[employer]IL LEVETIRAC ETAM NONEMERG A0120 FEDERATED FEDERATED TRNSPRT: 6 MINI-BUS TRANSPORT TRANSPORT MTN ATION SER ATION SER AREA/OTH SYS SBSQ 31259 [facility] 6 MARII MARII FACILITY CARE/DAY E/M STABLE 10 MIN NONEMERG A0120 [facility]ER[facility] FEDERATED TRNSPRT: 6 MINI-BUS TRANSPORT TRANSPORT MTN ATION SER ATION SER AREA/OTH SYS DRUG 57136 COMBINED COMBINED SCREEN 6 PHYSICIAN PHYSICIAN QUANTITAT S LA S LA SWAPNIL PHENYTOIN TOTAL GROUND A0425 [facility]ULANCE AMBULANCE PER SERVICE SERVICE STATUTE MILE AMBULANCE A0429 [facility] 6 AMBULANCE AMBULANCE BLS SERVICE SERVICE EMERGENCY TRANSPORT DRUG 16268 LAB OTIS LAB OTIS SCREEN 6 YFN YFN [employer] SWAPNIL LEVETIRAC ETAM AMBULANCE A0429 [facility] 6 AMBULANCE AMBULANCE BLS SERVICE SERVICE EMERGENCY TRANSPORT GROUND A0425 [facility]ANCE AMBULANCE PER SERVICE SERVICE STATUTE MILE RADEX 80825 [place] ALL WRIST 6 MEDICAL COMPLETE IMAGING MINIMUM 3 ASS VIEWS GLUC BLD 97161 KE TRIANA MNTR 6 [facility] DEV INC INC CLEARED FDA SPEC HOME USE SBSQ 31035 [facility] 6 [facility] FACILITY CARE/DAY E/M STABLE 10 MIN GROUND A0425 [facility] 6 AMBULANCE AMBULANCE PER SERVICE SERVICE STATUTE MILE AMBULANCE A0429 [facility] SERVICE 6 AMBULANCE AMBULANCE BLS SERVICE SERVICE EMERGENCY TRANSPORT DRUG 71472 COMBINED COMBINED SCREEN 6 PHYSICIAN PHYSICIAN QUANTITAT S LA S LA SWAPNIL PHENYTOIN TOTAL ECG 38925 KE TILLMAN JR ROUTINE 6 [facility] W/LEAST P 12 LDS I&R ONLY GROUND A[address] [place], [place] [address]EAGE 6 AMBULANCE AMBULANCE PER SERVICE SERVICE STATUTE MILE RADIOLOGI 40635 [place] CHE[place] ALL C 6 MEDICAL EXAMINATI IMAGING ON CHEST ASS SINGLE VIEW FRONTAL AMB A0427 [facility] 6 AMBULANCE AMBULANCE ALS SERVICE SERVICE EMERGENCY TRANSPORT LEVEL 1 AMB A0427 [facility] 6 AMBULANCE AMBULANCE ALS SERVICE SERVICE EMERGENCY TRANSPORT LEVEL 1 GROUND A0425 [facility]ANCE AMBULANCE PER SERVICE SERVICE STATUTE MILE DRUG 99608 COMBINED COMBINED SCREEN 6 PHYSICIAN PHYSICIAN QUANTITAT S LA S LA SWAPNIL PHENYTOIN TOTAL SBSQ 16944 [facility] 6 [facility] FACILITY CARE/DAY E/M STABLE 10 MIN DRUG 43174 COMBINED COMBINED SCREEN 6 PHYSICIAN PHYSICIAN QUANTITAT S LA S LA SWAPNIL PHENYTOIN TOTAL DRUG 10661 LAB OTIS LAB OTIS SCREEN 6 [facility] [employer] SWAPNIL LEVETIRAC ETAM GROUND A0425 [facility] 6 AMBULANCE AMBULANCE PER SERVICE SERVICE STATUTE MILE AMBULANCE A0429 [facility] SERVICE 6 AMBULANCE AMBULANCE BLS SERVICE SERVICE EMERGENCY TRANSPORT AMBULANCE A0429 [facility] SERV[facility] 6 AMBULANCE AMBULANCE BLS SERVICE SERVICE EMERGENCY TRANSPORT GROUND A0425 [facility] 6 AMBULANCE AMBULANCE PER SERVICE SERVICE STATUTE MILE NONEMERG A0120 [facility] FEDERATED TRNSPRT: 6 MINI-BUS TRANSPORT TRANSPORT MTN ATION SER ATION SER AREA/OTH SYS DRUG 82270 LAB OTIS LAB OTIS SCREEN 6 [facility] [employer] SWAP[employer]IL LEVETIRAC ETAM COMPREHEN 69147 KE DEMPSEY SIVE 6 [facility] METABOLIC INC INC PANEL COLLECTIO 35279 KE DEMPSEY N VENOUS 6 [facility] [place] [address] [place] ALL CERVICAL 6 MEDICAL SPINE W/O IMAGING CONTRAST ASS MATERIAL GROUND A0425 [facility] 6 AMBULANCE AMBULANCE PER SERVICE SERVICE STATUTE MILE DRUG 10254 KE DEM[facility]Y SCREEN 6 [facility] QUANTITAT INC INC SWAPNIL PHENYTOIN TOTAL BLOOD 83160 KE DEMPSEY COUNT 6 [facility] COMPLETE INC INC AUTO&AUTO DIFRNTL WBC AMB A0427 [facility] SERVICE 6 AMBULANCE AMBULANCE ALS SERVICE SERVICE [place] [address] KE DEMPSEY HEAD/BRAI 6 [facility] N W/O INC INC CONTRAST MATERIAL GROUND A0425 [facility] 6 AMBULANCE AMBULANCE PER SERVICE SERVICE STATUTE MILE AMBULANCE A0429 [facility] SERVICE 6 AMBULANCE AMBULANCE BLS SERVICE SERVICE EMERGENCY TRANSPORT AMBULANCE A0429 [facility] SERV[facility] 6 AMBULANCE AMBULANCE BLS SERVICE SERVICE EMERGENCY TRANSPORT GROUND A0425 [facility] 6 AMBULANCE AMBULANCE PER SERVICE SERVICE STATUTE MILE SIMPLE 81112 [facility] PHYSICIAN U BEN SCALP/NEC S, PLLC K/AX/TEJINDER T/TRUNK 2.5CM/< SCREENING G0202 [facility] 6 MEDICAL FIDEL MAMMOGRAP IMAGING HY JULY ASS INCL CAD WHEN PERFORMD NONEMERG A0120 [facility] FEDERATED TRNSPRT: 6 MINI-BUS TRANSPORT TRANSPORT MTN [facility]/OT SYS COMPUTER- 52356 [place] DONNELL AIDED 6 MEDICAL FIDEL DETECTION IMAGING ASS SCREENING MAMMOGRAP HY DRUG 76014 LAB OTIS LAB OTIS SCREEN 6 YFN YFN QUANTITAT HOLD[place] [address] [place] ALL CERVICAL 6 MEDICAL SPINE W/O IMAGING CONTRAST ASS MATERIAL CT LUMBAR [address]3110 [place] SPINE 6 MEDICAL W/O IMAGING CONTRAST ASS MATERIAL RADIOLOGI 07618 [place] C 6 MEDICAL EXAMINATI IMAGING ON TIBIA ASS & FIBULA 2 VIEWS AMBULANCE A0429 [facility] SERVICE 6 AMBULANCE AMBULANCE BLS SERVICE SERVICE EMERGENCY TRANSPORT [facility] A0425 [facility]ANCE [facility] [place] [address] [place] HEAD/BRAI 6 MEDICAL N W/O IMAGING CONTRAST ASS MATERIAL NONEMERG A0120 FEDERATED FEDERATED TRNSPRT: 6 MINI-BUS TRANSPORT [facility]ORT [facility] NON[facility] A0120 FEDERATED FEDERATED TRNSPRT: 6 MINI-BUS TRANSPORT [facility] A0425 [facility] AM[facility]ULANCE PER SERVICE SERVICE STATUTE [place] AMBULANCE A0429 [facility] 6 AMBULANCE AMBULANCE BLS SERVICE SERVICE EMERGENCY TRANSPORT AMBULANCE [address] [place] [address] 6 AMBULANCE AMBULANCE BLS SERVICE SERVICE EMERGENCY TRANSPORT GROUND A0425 [facility] [place] 6 AMBULANCE AMBULANCE PER SERVICE SERVICE STATUTE [place] GROUND A0425 [facility] [place] 6 AMBULANCE AMBULANCE [place] [address] SRIN[facility] JACOBO HEAD/BRAI 6 MEDICAL FIDEL N W/O IMAGING CONTRAST ASS MATERIAL AMB A0427 [facility] 6 AMBULANCE AMBULANCE ALS SERVICE SERVICE EMERGENCY TRANSPORT LEVEL 1 NONEMERG A0120 FEDERATED FEDERATED TRNSPRT: 6 MINI-BUS TRANSPORT TRANSPORT [facility] GROUND A0425 [facility] [place] 6 AMBULANCE AMBULANCE PER SERVICE SERVICE STATUTE [place] AMB A0427 [facility] 6 AMBULANCE AMBULANCE ALS SERVICE SERVICE EMERGENCY TRANSPORT LEVEL 1 AMB A0427 [facility] 6 AMBULANCE AMBULANCE ALS SERVICE SERVICE EMERGENCY TRANSPORT LEVEL 1 GROUND A0425 [facility] [place] 6 AMBULANCE AMBULANCE PER SERVICE SERVICE STATUTE [place] RADIOLOGI 97916 KE DEMPSEY C 6 [facility] EXAMINATI INC INC ON PELVIS 1/2 VIEWS RADEX 81763 KE DEMPSEY SPINE 6 [facility] LUMBOSACR INC INC AL MINIMUM 4 VIEWS AMBULANCE A0429 [facility] 6 AMBULANCE AMBULANCE BLS SERVICE SERVICE EMERGENCY TRANSPORT GROUND A0425 [facility] [place] 6 AMBULANCE AMBULANCE PER SERVICE SERVICE STATUTE [place] NONEMER A0120 FEDERATED FEDERATED TRNSPRT: 6 MINI-BUS TRANSPORT TRANSPORT [facility] GROUND A0425 [facility] [place] 6 AMBULANCE AMBULANCE PER SERVICE SERVICE STATUTE [place] AMB A0427 [facility] 6 AMBULANCE AMBULANCE ALS SERVICE SERVICE EMERGENCY TRANSPORT LEVEL 1 NONEMER A0120 FEDERATED FEDERATED TRNSPRT: 6 MINI-BUS TRANSPORT TRANSPORT [facility] DRUG 72719 LAB OTIS LAB OTIS SCREEN 6 YFN YFN QUANTITAT HOLDINGS HOLDINGS SWAPNIL LEVETIRAC ETAM NONEMERG A0120 FEDERATED FEDERATED TRNSPRT: 6 MINI-BUS TRANSPORT TRANSPORT [facility]/OT SYS GROUND A0425 [facility] [place] 6 AMBULANCE AMBULANCE PER SERVICE SERVICE STATUTE [place] AMB A0427 [facility] EMERGENCY TRANSPORT LEVEL 1 AMB A0427 [facility] EMERGENCY TRANSPORT LEVEL 1 GROUND A0425 [facility]LE[facility] 6 AMBULANCE AMBULANCE PER SERVICE SERVICE STATUTE MILE GROUND A0425 [facility] 6 MEDICAL MEDICAL PER RESPONSE RESPONSE STATUTE MILE AMB A0422 [facility] OXYGEN&O2 6 MEDICAL MEDICAL SUPPLIES RESPONSE RESPONSE LIFE SUSTAININ G SITUATION ELECTROEN 96240 [place] CEPHALOGR 6 MEDICAL [place] AM W/REC SERV AWAKE&CARLIE FOUNDATIO WSY N GROUND A0425 [facility] 6 AMBULANCE AMBULANCE PER SERVICE SERVICE STATUTE MILE AMBULANCE A0429 [facility] 6 AMBULANCE AMBULANCE BLS SERVICE SERVICE EMERGENCY TRANSPORT AMB A0427 [facility] AM[facility]ULANCE AMBULANCE ALS SERVICE SERVICE EMERGENCY TRANSPORT LEVEL 1 RADIOLOGI 99031 [place] CHEUNG ALL C 6 MEDICAL EXAMINATI IMAGING ON KNEE ASS 1/2 VIEWS NONEMER A0120 FEDERATED FEDERATED TRNSPRT: 6 MINI-BUS TRANSPORT TRANSPORT [facility] GROUND A0425 [facility] 6 AMBULANCE AMBULANCE PER SERVICE SERVICE STATUTE MILE AMBULANCE A0429 [facility] AMB[facility]ANCE B[facility] [place] [address] [facility] HEAD/BRAI 6 [facility] W/[place] [address] [facility] CERVICAL 6 [facility] SPINE W/O INC INC CONTRAST MATERIAL AMB A0427 [facility] 6 AMBULANCE AMBULANCE ALS SERVICE SERVICE EMERGENCY TRANSPORT LEVEL 1 GROUND A0425 [facility] 6 AMBULANCE AMBULANCE PER SERVICE SERVICE STATUTE MILE GROUND A0425 [facility] 6 AMBULANCE AMBULANCE PER SERVICE SERVICE STATUTE MILE AMB A0427 [facility] SERVICE 6 AMBULANCE AMBULANCE ALS SERVICE SERVICE EMERGENCY TRANSPORT LEVEL 1 RADIOLOGI 03847 SRINATH CHEUNG ALL C 6 MEDICAL EXAMINATI IMAGING [place] [address] SRINATH CHEUNG ALL HEAD/BRAI 6 MEDICAL N W/O IMAGING CONTRAST ASS MATERIAL GROUND A0425 [facility] MILEAGE 6 AMBULANCE AMBULANCE PER SERVICE SERVICE STATUTE MILE AMBULANCE A0429 [facility] SERVICE 6 AMBULANCE AMBULANCE BLS SERVICE SERVICE EMERGENCY TRANSPORT GROUND A0425 [facility] MILEAGE 6 AMBULANCE AMBULANCE [place] [address] [facility] HEAD/BRAI 6 [facility] W/O INC INC CONTRAST MATERIAL RADIOLOGI 00877 SRINATH SANTIAGO C 6 MEDICAL EXAMINATI IMAGING ON CHEST ASS SINGLE VIEW FRONTAL AMB A0427 [facility] SERVICE 6 AMBULANCE AMBULANCE ALS SERVICE SERVICE EMERGENCY TRANSPORT LEVEL 1 NONEMERG A0120 FEDERATED FEDERATED TRNSPRT: 6 MINI-BUS TRANSPORT TRANSPORT [facility]OTH SYS GROUND A0425 [facility] MILEAGE 6 AMBULANCE AMBULANCE PER SERVICE SERVICE STATUTE MILE AMB A0427 [facility] SERVICE 6 AMBULANCE AMBULANCE ALS SERVICE SERVICE [place] L[place] [address] [place] [address] [facility] HEAD/BRAI 6 [facility] W/[place] [address] [facility] CERVICAL 6 [facility] SPINE W/O INC INC CONTRAST MATERIAL NONEMERG A0120 FEDERATED FEDERATED TRNSPRT: 6 MINI-BUS TRANSPORT TRANSPORT MTN ATION SER [facility] AREA/OTH SYS QUANTITAT 62182 [facility] ION DRUG 6 [facility] NOT INC INC ELSEWHERE SPECIFIED DRUG 91153 [facility] SCREEN 6 [facility] QUANTITAT INC INC SWAPNIL PHENYTOIN TOTAL URNLS DIP 23759 [facility] 6 [facility] STICK/TAB INC INC LET REAGENT AUTO MICROSCOP Y BLOOD 79766 [facility] COUNT 6 [facility] COMPLETE INC INC AUTO&AUTO DIFRNTL WBC BLOOD 26136 [facility] COUNT 6 [facility] COMPLETE INC INC AUTO&AUTO DIFRNTL WBC DRUG 28287 [facility] SCREEN 6 [facility] QUANTITAT [place] [address] [facility] HEAD/BRAI 6 [facility] N W/O INC INC CONTRAST MATERIAL COLLECTIO 27681 COMBINED COMBINED N VENOUS 6 PHYSICIAN PHYSICIAN BLOOD S LA S LA VENIPUNCT URE COMPREHEN 03818 [facility] SIVE 6 [facility] METABOLIC INC INC PANEL ELECTROEN 63940 REJI MADRID CEPHALOGR 6 N N AM EXTEND COMMUNTIY COMMUNTIY HOSPITA HOSPITA MONITORIN G 41-60 MIN ELECTROEN 16189 [facility] CEPHAL[facility] 6 N AM W/REC NEUROLOGY AWAKE&ASL EEP NONEMERG A0120 FEDERATED FEDERATED TRNSPRT: 6 MINI-BUS TRANSPORT [facility] 35906 [facility] SCREEN 6 [facility] QUANTITAT INC INC SWAPNIL PHENYTOIN TOTAL DRUG 81204 [facility] SCREEN 6 [facility] QUANTITAT INC INC SWAPNIL PHENYTOIN TOTAL BLOOD 72465 [facility] COUNT 6 [facility] COMPLETE INC INC AUTO&AUTO DIFRNTL WBC RADIOLOGI 88750 [facility] C 6 [facility] EXAMINATI INC [place] [address] [facility] HEAD/BRAI 6 [facility] N W/O INC INC CONTRAST MATERIAL COMPREHEN 77514 [facility] SIVE 6 [facility] METABOLIC INC INC PANEL NONEMERG A0120 FEDERATED FEDERATED TRNSPRT: 5 MINI-BUS TRANSPORT [facility] CONTINUOU E0601 ZULEYMA AMOR S 5 HOME HOME POSITIVE MEDICAL MEDICAL AIRWAY EQUIPME EQUIPME PRESSURE DEVICE NONEMERG A0120 FEDERATED FEDERATED TRNSPRT: 5 MINI-BUS TRANSPORT TRANSPORT [facility] ARE[facility]/OTH SYS BLOOD 38742 [facility] COUNT 5 [facility] COMPLETE INC INC AUTO&AUTO DIFRNTL WBC GLUC BLD 37683 [facility] GLUC MNTR 5 [facility] DEV INC INC CLEARED FDA SPEC HOME USE DRUG 71847 [facility] SCREEN 5 [facility] QUANTITAT INC INC SWAPNIL PHENYTOIN TOTAL URNLS DIP 73169 [facility] 5 [facility] STICK/TAB INC INC LET REAGENT AUTO MICROSCOP Y GLUCOSE 99924 [facility] QUANTITAT 5 [facility] SWAPNIL BLOOD INC INC XCPT REAGENT STRIP COMPREHEN 60100 [facility] SIVE 5 [facility] METABOLIC INC INC PANEL COLLECTIO 86503 [facility] N VENOUS 5 N N BLOOD COMMUNTIY COMMUNTIY VENIPUNCT HOSPITA HOSPITA URE COMPREHEN 10027 [facility] SIVE 5 N N METABOLIC COMMUNTIY COMMUNTIY PANEL HOSPITA HOSPITA DRUG 96558 [facility] SCREEN 5 N N QUANTITAT COMMUNTIY COMMUNTIY SWAPNIL HOSPITA HOSPITA PHENYTOIN TOTAL BLOOD 88666 [facility] COUNT 5 N N COMPLETE COMMUNTIY COMMUNTIY AUTO&AUTO HOSPITA HOSPITA DIFRNTL WBC NONEMERG A0120 FEDERATED FEDERATED TRNSPRT: 5 MINI-BUS TRANSPORT TRANSPORT MTN [facility] SER AREA/OTH SYS NONEMERG A0120 FEDERATED FEDERATED TRNSPRT: 5 MINI-BUS TRANSPORT TRANSPORT MTN ATION SER [facility] AREA/OTH SYS CONTINUOU E0601 ZULEYMA Conrad 5 HOME HOME POSITIVE MEDICAL MEDICAL AIRWAY EQUIPME EQUIPME PRESSURE DEVICE GLUC BLD 63681 [facility] GLUC MNTR 5 [facility] DEV INC INC CLEARED FDA SPEC HOME USE COLONOSCO 96983 [facility] PY FLX DX 5 [facility] W/[place] [address] [facility] INFUSION 5 [facility] THERAPY INC INC PROPHY[place] [address] [facility] INFUSION 5 [facility] THERAPY/P INC INC ROPHYLAXI S /DX 1ST TO 1 HR DRUG 94184 COMBINED COMBINED SCREEN 5 PHYSICIAN PHYSICIAN QUANTITAT S LA S LA SWAPNIL PHENYTOIN TOTAL COLLECTIO 57048 COMBINED COMBINED N VENOUS 5 PHYSICIAN PHYSICIAN BLOOD S LA S LA VENIPUNCT URE COMPREHEN 01261 [facility] SIVE 5 [facility] METABOLIC INC INC PANEL DRUG 56456 [facility] SCREEN 5 [facility] QUANTITAT INC INC SWAPNIL PHENYTOIN TOTAL BLOOD 40787 [facility] COUNT 5 [facility] COMPLETE INC INC AUTO&[place] [address] [facility] INFUSION 5 [facility] MEM [...] EQUIPME W/POS ARWAY PRESS DEVICE IIV4 VACC 71636 [facility] VIRUS 0.5 [facility] DEPT ML DOS BALTAZAR FOR IM USE CUL BACT 17278 COMBINED COMBINED XCPT 5 PHYSICIAN PHYSICIAN URINE S LA S LA BLOOD/STO OL AEROBIC ISOL NONEMERG A0120 FEDERATED FEDERATED TRNSPRT: 5 MINI-BUS TRANSPORT TRANSPORT [facility]/OT SYS NONEMERG A0120 FEDERATED FEDERATED TRNSPRT: 5 MINI-BUS TRANSPORT TRANSPORT MTN ATION SER [facility]/OT SYS NEEDLE 37227 [facility] EMG EA 5 N EXTREMTY NEUROLOGY W/PARASPI NL AREA COMPLETE NERVE 90345 [facility] CONDUCTIO 5 N N STUDIES NEUROLOGY 9-10 STUDIES NONEMERG A0120 FEDERATED FEDERATED TRNSPRT: 5 MINI-BUS TRANSPORT [facility] NONEMERG A0120 FEDERATED FEDERATED TRNSPRT: 5 MINI-BUS TRANSPORT [facility] AMBULANCE A0429 [facility] SERVICE 5 AMBULANCE AMBULANCE BLS SERVICE SERVICE EMERGENCY TRANSPORT RADIOLOGI 24141 [facility] C EXAM 5 MEDICAL FIDEL CHEST 2 IMAGING VIEWS ASS FRONTAL&L ATERAL GROUND A0425 [facility] MILEAGE 5 AMBULANCE AMBULANCE PER SERVICE SERVICE STATUTE [place] NONEMERG A0120 FEDERATED FEDERATED TRNSPRT: 5 MINI-BUS TRANSPORT TRANSPORT MTN ATION [facility]OT SYS NONEMERG A0120 FEDERATED FEDERATED TRNSPRT: 5 MINI-BUS TRANSPORT [facility] NONEMERG A0120 FEDERATED FEDERATED TRNSPRT: 5 MINI-BUS TRANSPORT [facility]OT SYS MRI 00748 [facility] SPINAL 5 [place] CANAL ORTHOPAED LUMBAR [facility] W/O CONTRAST MATERIAL PARING/CU 05108 IKER DONG TTING 5 JAM JAM BENIGN HYPERKERA TOTIC LESION >4 TRIMMING 82425 IKER DONG NONDYSTRO 5 JAM JAM PHIC NAILS ANY NUMBER DEBRIDEME 02269 BRAUDIS BRAUDIS NT NAIL 5 JAM JAM ANY METHOD 1-5 RADEX 46738 [facility] TRA SPINE 5 [place] LUMBOSACR ORTHOPAED AL 2/3 [facility] VIEWS NONEMERG A0120 FEDERATED FEDERATED TRNSPRT: 5 MINI-BUS TRANSPORT TRANSPORT [facility] SER AREA/OTH SYS NONEMERG A0120 FEDERATED FEDERATED TRNSPRT: 5 MINI-BUS TRANSPORT TRANSPORT [facility] SER [facility] AREA/OTH SYS SBSQ 10941 [facility] 5 [facility] FACILITY CARE/DAY E/M STABLE 10 MIN SBSQ 66215 [facility] NURSING 5 [facility] FAC[facility] CARE/DAY E/M STABLE 10 MIN DAY CARE S5100 [address] ADULT; ADULT ADULT PER 15 DAY CARE DAY CARE MINUTES INITIAL 54796 [facility] NURSING 5 [facility] FAC[facility] CARE/DAY 25 MINUTES DAY CARE S5100 [address] ADULT; ADULT ADULT PER 15 DAY CARE DAY CARE MINUTES DAY CARE S5100 [address] ADULT; ADULT ADULT PER 15 DAY CARE DAY CARE MINUTES DAY CARE S5100 THE [address] ADULT; ADULT ADULT PER 15 DAY CARE DAY CARE MINUTES DAY CARE S5100 [address] ADULT; ADULT ADULT PER 15 DAY CARE DAY CARE MINUTES DAY CARE S5100 [address] ADULT; ADULT ADULT PER 15 DAY CARE DAY CARE MINUTES DAY CARE S5100 [address] ADULT; ADULT ADULT PER 15 DAY CARE DAY CARE MINUTES DAY CARE S5100 [address] ADULT; ADULT ADULT PER 15 DAY CARE DAY CARE MINUTES DAY CARE S5[address] ADULT; ADULT ADULT PER 15 DAY CARE DAY CARE MINUTES DAY CARE S5100 [address] ADULT; ADULT ADULT PER 15 DAY CARE DAY CARE MINUTES DAY CARE S5100 THE THE SERVICES [address] [place] [address] ADULT; ADULT ADULT PER 15 DAY CARE DAY CARE MINUTES DAY CARE S5100 THE THE SERVICES [address] [place] [address] ADULT; ADULT ADULT PER 15 DAY CARE DAY CARE MINUTES DAY CARE S5100 THE THE SERVICES [address] [place] [address] ADULT; ADULT ADULT PER 15 DAY CARE DAY CARE MINUTES DAY CARE S5100 THE THE SERVICES [address] [place] [address] ADULT; ADULT ADULT PER 15 DAY CARE DAY CARE MINUTES DAY CARE S5100 THE THE SERVICES [address] [place] [address] ADULT; ADULT ADULT PER 15 DAY CARE DAY CARE MINUTES DAY CARE S5100 THE THE SERVICES [address] [place] [address] ADULT; ADULT ADULT PER 15 DAY CARE DAY CARE MINUTES DAY CARE S5100 THE THE SERVICES [address] [place] [address] ADULT; ADULT ADULT PER 15 DAY CARE DAY CARE MINUTES DAY CARE S5100 [address] ADULT; ADULT ADULT PER 15 DAY CARE DAY CARE MINUTES DAY CARE S5100 THE THE SERVICES [address] [place] [address] ADULT; ADULT ADULT PER 15 DAY CARE DAY CARE MINUTES DAY CARE S5[address] ADULT; ADULT ADULT PER 15 DAY CARE DAY CARE MINUTES DAY CARE S5[address] ADULT; ADULT ADULT PER 15 DAY CARE DAY CARE MINUTES DAY CARE S5[address] ADULT; ADULT ADULT PER 15 DAY CARE DAY CARE MINUTES DAY CARE S5[address] ADULT; ADULT ADULT PER 15 DAY CARE DAY CARE MINUTES DAY CARE S5100 THE THE SERVICES [address] [place] [address] ADULT; ADULT ADULT PER 15 DAY CARE DAY CARE MINUTES DAY CARE S5100 THE THE SERVICES [address] [place] [address] ADULT; ADULT ADULT PER 15 DAY CARE DAY CARE MINUTES DAY CARE S5100 THE THE SERVICES [address] [place] [address] ADULT; ADULT ADULT PER 15 DAY CARE DAY CARE MINUTES DAY CARE S5100 THE THE SERVICES [address] [place] [address] ADULT; ADULT ADULT PER 15 DAY CARE DAY CARE MINUTES DAY CARE S5[address] ADULT; ADULT ADULT PER 15 DAY CARE DAY CARE MINUTES DAY CARE S5[address] ADULT; ADULT ADULT PER 15 DAY CARE DAY CARE MINUTES DAY CARE S5[address] ADULT; ADULT ADULT PER 15 DAY CARE DAY CARE MINUTES DAY CARE S5[address] ADULT; ADULT ADULT PER 15 DAY CARE DAY CARE MINUTES DAY CARE S5[address] ADULT; ADULT ADULT PER 15 DAY CARE DAY CARE MINUTES DAY CARE S5[address] ADULT; ADULT ADULT PER 15 DAY CARE DAY CARE MINUTES DAY CARE S5[address] ADULT; ADULT ADULT PER 15 DAY CARE DAY CARE MINUTES DAY CARE S5[address] ADULT; ADULT ADULT PER 15 DAY CARE DAY CARE MINUTES DAY CARE S[address] ADULT; ADULT ADULT PER 15 DAY CARE DAY CARE MINUTES DAY CARE S5[address] ADULT; ADULT ADULT PER 15 DAY CARE DAY CARE MINUTES DAY CARE S5[address] ADULT; ADULT ADULT PER 15 DAY CARE DAY CARE MINUTES NONEMERGE A0100 [facility] NCY 5 INC TRANSPORT TRANSPORT REGION 9 ATION CO ATION; L TAXI DAY CARE S5100 THE [address] ADULT; ADULT ADULT PER 15 DAY CARE DAY CARE MINUTES DAY CARE S5100 [address] ADULT; ADULT ADULT PER 15 DAY CARE DAY CARE MINUTES DAY CARE S5[address] ADULT; ADULT ADULT PER 15 DAY CARE DAY CARE MINUTES DAY CARE S5[address] ADULT; ADULT ADULT PER 15 DAY CARE DAY CARE MINUTES DAY CARE S5[address] ADULT; ADULT ADULT PER 15 DAY CARE DAY CARE MINUTES DAY CARE S5[address] ADULT; ADULT ADULT PER 15 DAY CARE DAY CARE MINUTES DAY CARE S5[address] ADULT; ADULT ADULT PER 15 DAY CARE DAY CARE MINUTES DAY CARE S5[address] ADULT; ADULT ADULT PER 15 DAY CARE DAY CARE MINUTES DAY CARE S[address] ADULT; ADULT ADULT PER 15 DAY CARE DAY CARE MINUTES DAY CARE S[address] ADULT; ADULT ADULT PER 15 DAY CARE DAY CARE MINUTES DAY CARE S[address] ADULT; ADULT ADULT PER 15 DAY CARE DAY CARE MINUTES DAY CARE S[address] ADULT; ADULT ADULT PER 15 DAY CARE DAY CARE MINUTES DAY CARE S[address] ADULT; ADULT ADULT PER 15 DAY CARE DAY CARE MINUTES DAY CARE S[address] ADULT; ADULT ADULT PER 15 DAY CARE DAY CARE MINUTES DAY CARE S[address] ADULT; ADULT ADULT PER 15 DAY CARE DAY CARE MINUTES POLYSOM [address] 6/>YRS 5 CANDACE CANDACE SLEEP 4/> MED [facility] [facility] [facility] ALVARO ATTND DAY CARE S5[address] ADULT; ADULT ADULT PER 15 DAY CARE DAY CARE MINUTES DAY CARE S[address] ADULT; ADULT ADULT PER 15 DAY CARE DAY CARE MINUTES DAY CARE S[address] ADULT; ADULT ADULT PER 15 DAY CARE DAY CARE MINUTES DAY CARE S[address] ADULT; ADULT ADULT PER 15 DAY CARE DAY CARE MINUTES NONEMERGE A0100 [facility] SHANNAN [facility] NCY 5 INC TRANSPORT TRANSPORT REGION 9 ATION CO ATION; L TAXI DAY CARE S5100 [address] ADULT; ADULT ADULT PER 15 DAY CARE DAY CARE MINUTES DAY CARE S5[address] ADULT; ADULT ADULT PER 15 DAY CARE DAY CARE MINUTES DAY CARE S[address] ADULT; ADULT ADULT PER 15 DAY CARE DAY CARE MINUTES DAY CARE S[address] ADULT; ADULT ADULT PER 15 DAY CARE DAY CARE MINUTES DAY CARE S[address] ADULT; ADULT ADULT PER 15 DAY CARE DAY CARE MINUTES DAY CARE S[address] ADULT; ADULT ADULT PER 15 DAY CARE DAY CARE MINUTES DAY CARE S[address] ADULT; ADULT ADULT PER 15 DAY CARE DAY CARE MINUTES DAY CARE S[address] ADULT; ADULT ADULT PER 15 DAY CARE DAY CARE MINUTES ECG 93008 EXPRESS EXPRESS ROUTINE 5 MOBILE MOBILE ECG DIAGNOSTI DIAGNOSTI W/LEAST C SE C SE 12 LDS TRCG ONLY W/O I&R DAY CARE S5[address] ADULT; ADULT ADULT PER 15 DAY CARE DAY CARE MINUTES DAY CARE S[address] ADULT; ADULT ADULT PER 15 DAY CARE DAY CARE MINUTES NONEMERGE A0100 [facility] TRAN[facility] TRANSPORT REGION 9 ATION CO ATION; L TAXI DAY CARE S5100 THE [address] ADULT; ADULT ADULT PER 15 DAY CARE DAY CARE MINUTES DAY CARE S[address] ADULT; ADULT ADULT PER 15 DAY CARE DAY CARE MINUTES DAY CARE S[address] ADULT; ADULT ADULT PER 15 DAY CARE DAY CARE MINUTES DAY CARE S[address] ADULT; ADULT ADULT PER 15 DAY CARE DAY CARE MINUTES DAY CARE S[address] ADULT; ADULT ADULT PER 15 DAY CARE DAY CARE MINUTES DAY CARE S[address] ADULT; ADULT ADULT PER 15 DAY CARE DAY CARE MINUTES DAY CARE S[address] ADULT; ADULT ADULT PER 15 DAY CARE DAY CARE MINUTES DAY CARE S[address] ADULT; ADULT ADULT PER 15 DAY CARE DAY CARE MINUTES DAY CARE S[address] ADULT; ADULT ADULT PER 15 DAY CARE DAY CARE MINUTES NONEMERGE A0100 [facility] TRANSP[facility] TRANSPORT REGION 9 ATION CO ATION; L TAXI DAY CARE S5[address] ADULT; ADULT ADULT PER 15 [place] [address] LAB OTIS LAB OTIS THYROXINE 5 [facility] TOTAL [place] HEMOGLOBI 09215 LAB [facility] LAB OTIS N 5 [facility] GLYCOSYLA [place] JERI A1C LIPID 68269 LAB OTIS LAB OTIS PANEL 5 [facility] [place] GENERAL 51420 LAB OTIS LAB OTIS HEALTH 5 [facility] PANEL [employer] DAY CARE S[address] ADULT; ADULT ADULT PER 15 DAY CARE DAY CARE MINUTES DAY CARE S[address] ADULT; ADULT ADULT PER 15 DAY CARE DAY CARE MINUTES DAY CARE S[address] ADULT; ADULT ADULT PER 15 DAY CARE DAY CARE MINUTES NONEMERGE A0100 [facility] TRANSPORT TRANSPORT REGION 9 ATION CO ATION; L TAXI DAY CARE S5[address] ADULT; ADULT ADULT PER 15 DAY CARE DAY CARE MINUTES DAY CARE S5[address] ADULT; ADULT ADULT PER 15 DAY CARE DAY CARE MINUTES DAY CARE S[address] ADULT; ADULT ADULT PER 15 DAY CARE DAY CARE MINUTES DAY CARE S[address] ADULT; ADULT ADULT PER 15 DAY CARE DAY CARE MINUTES DAY CARE S[address] ADULT; ADULT ADULT PER 15 DAY CARE DAY CARE MINUTES DAY CARE S[address] ADULT; ADULT ADULT PER 15 DAY CARE DAY CARE MINUTES DAY CARE S[address] ADULT; ADULT ADULT PER 15 DAY CARE DAY CARE MINUTES DAY CARE S[address] ADULT; ADULT ADULT PER 15 DAY CARE DAY CARE MINUTES DAY CARE S[address] ADULT; ADULT ADULT PER 15 DAY CARE DAY CARE MINUTES DAY CARE S[address] ADULT; ADULT ADULT PER 15 DAY CARE DAY CARE MINUTES DAY CARE S[address] ADULT; ADULT ADULT PER 15 DAY CARE DAY CARE MINUTES DAY CARE S[address] ADULT; ADULT ADULT PER 15 DAY CARE DAY CARE MINUTES NONEMERGE A0100 [facility] TRANSPORT TRANSPORT REGION 9 ATION CO ATION; L TAXI DAY CARE S5[address] ADULT; ADULT ADULT PER 15 DAY CARE DAY CARE MINUTES DAY CARE S[address] ADULT; ADULT ADULT PER 15 DAY CARE DAY CARE MINUTES DAY CARE S[address] ADULT; ADULT ADULT PER 15 DAY CARE DAY CARE MINUTES DAY CARE S[address] ADULT; ADULT ADULT PER 15 DAY CARE DAY CARE MINUTES DAY CARE S[address] ADULT; ADULT ADULT PER 15 DAY CARE DAY CARE MINUTES DAY CARE S[address] ADULT; ADULT ADULT PER 15 DAY CARE DAY CARE MINUTES DAY CARE S[address] ADULT; ADULT ADULT PER 15 DAY CARE DAY CARE MINUTES DAY CARE S[address] ADULT; ADULT ADULT PER 15 DAY CARE DAY CARE MINUTES DAY CARE S[address] ADULT; ADULT ADULT PER 15 DAY CARE DAY CARE MINUTES DAY CARE S[address] ADULT; ADULT ADULT PER 15 DAY CARE DAY CARE MINUTES DAY CARE S[address] ADULT; ADULT ADULT PER 15 DAY CARE DAY CARE MINUTES DAY CARE S[address] ADULT; ADULT ADULT PER 15 DAY CARE DAY CARE MINUTES DAY CARE S[address] ADULT; ADULT ADULT PER 15 DAY CARE DAY CARE MINUTES DAY CARE S[address] ADULT; ADULT ADULT PER 15 DAY CARE DAY CARE MINUTES DAY CARE S[address] ADULT; ADULT ADULT PER 15 DAY CARE DAY CARE MINUTES DAY CARE S[address] ADULT; ADULT ADULT PER 15 DAY CARE DAY CARE MINUTES DAY CARE S[address] ADULT; ADULT ADULT PER 15 DAY CARE DAY CARE MINUTES DAY CARE S[address] ADULT; ADULT ADULT PER 15 DAY CARE DAY CARE MINUTES DAY CARE S[address] ADULT; ADULT ADULT PER 15 DAY CARE DAY CARE MINUTES DAY CARE S[address] ADULT; ADULT ADULT PER 15 DAY CARE DAY CARE MINUTES DAY CARE S[address] ADULT; ADULT ADULT PER 15 DAY CARE DAY CARE MINUTES DAY CARE S[address] ADULT; ADULT ADULT PER 15 DAY CARE DAY CARE MINUTES DAY CARE S[address] ADULT; ADULT ADULT PER 15 DAY CARE DAY CARE MINUTES DAY CARE S[address] ADULT; ADULT ADULT PER 15 DAY CARE DAY CARE MINUTES DAY CARE S[address] ADULT; ADULT ADULT PER 15 DAY CARE DAY CARE MINUTES O[facility]EN [id number] [facility] ITES 4 YFN YFN DIRECT [employer] SMEARS CONCENTRA TION & ID SMR PRIM [id number] [facility] SRC CPLX 4 YFN YFN SPEC [employer] STAIN [facility] ITS DAY CARE S[address] ADULT; ADULT ADULT PER 15 DAY CARE DAY CARE MINUTES DAY CARE S5[address] ADULT; ADULT ADULT PER 15 DAY CARE DAY CARE MINUTES DAY CARE S[address] ADULT; ADULT ADULT PER 15 DAY CARE DAY CARE MINUTES DAY CARE S[address] ADULT; ADULT ADULT PER 15 DAY CARE DAY CARE MINUTES DAY CARE S[address] ADULT; ADULT ADULT PER 15 DAY CARE DAY CARE MINUTES DAY CARE S[address] ADULT; ADULT ADULT PER 15 DAY CARE DAY CARE MINUTES DAY CARE S[address] ADULT; ADULT ADULT PER 15 DAY CARE DAY CARE MINUTES DAY CARE S5100 THE THE SERVICES [address] [place] [address] ADULT; ADULT ADULT PER 15 DAY CARE DAY CARE MINUTES DAY CARE S5100 [address] ADULT; ADULT ADULT PER 15 DAY CARE DAY CARE MINUTES DAY CARE S5100 [address] ADULT; ADULT ADULT PER 15 DAY CARE DAY CARE MINUTES DAY CARE S5[address] ADULT; ADULT ADULT PER 15 DAY CARE DAY CARE MINUTES DAY CARE S5[address] ADULT; ADULT ADULT PER 15 DAY CARE DAY CARE MINUTES NONEMERGE A0100 [facility] SHANNAN SAUCEDO MEY 4 INC TRANSPORT TRANSPORT REGION 9 ATION CO ATION; L TAXI DAY CARE S5[address] ADULT; ADULT ADULT PER 15 DAY CARE DAY CARE MINUTES DAY CARE S5100 [address] ADULT; ADULT ADULT PER 15 DAY CARE DAY CARE MINUTES DAY CARE S5[address] ADULT; ADULT ADULT PER 15 DAY CARE DAY CARE MINUTES DAY CARE S5[address] ADULT; ADULT ADULT PER 15 DAY CARE DAY CARE MINUTES DAY CARE S5[address] ADULT; ADULT ADULT PER 15 DAY CARE DAY CARE MINUTES DAY CARE S5[address] ADULT; ADULT ADULT PER 15 DAY CARE DAY CARE MINUTES DAY CARE S5[address] ADULT; ADULT ADULT PER 15 DAY CARE DAY CARE MINUTES DAY CARE S5[address] ADULT; ADULT ADULT PER 15 DAY CARE DAY CARE MINUTES DAY CARE S5[address] ADULT; ADULT ADULT PER 15 DAY CARE DAY CARE MINUTES DAY CARE S5[address] ADULT; ADULT ADULT PER 15 DAY CARE DAY CARE MINUTES DAY CARE S[address] ADULT; ADULT ADULT PER 15 DAY CARE DAY CARE MINUTES DAY CARE S5100 THE THE SERVICES [address] [place] [address] ADULT; ADULT ADULT PER 15 DAY CARE DAY CARE MINUTES DAY CARE S5[address] ADULT; ADULT ADULT PER 15 DAY CARE DAY CARE MINUTES DAY CARE S5[address] ADULT; ADULT ADULT PER 15 DAY CARE DAY CARE MINUTES DAY CARE S5[address] ADULT; ADULT ADULT PER 15 DAY CARE DAY CARE MINUTES DAY CARE S5[address] ADULT; ADULT ADULT PER 15 DAY CARE DAY CARE MINUTES DAY CARE S5[address] ADULT; ADULT ADULT PER 15 DAY CARE DAY CARE MINUTES DAY CARE S5[address] ADULT; ADULT ADULT PER 15 DAY CARE DAY CARE MINUTES RADEX 70136 RADIOLOGY ADELIA SPINE 4 ARSENIO THORACIC ASSOCIATE [address] [place] [address] RADIOLOGY VISHAL HEAD/BRAI 4 HARISH N W/O ASSOCIATE CONTRAST S OF NOTH MATERIAL ECG 01081 [facility] NIV ROUTINE 4 CANDACE ECG W/LEAST PHYSICIAN 12 LDS S EKG I&R ONLY RADEX 04875 RADIOLOGY VISHAL SPINE 4 HARISH LUMBOSACR ASSOCIATE AL 2/[address] [place] [address] RADIOLOGY VISHAL CERVICAL 4 HARISH SPINE W/O ASSOCIATE CONTRAST S OF NOTH MATERIAL DAY CARE S5[address] ADULT; ADULT ADULT PER 15 DAY CARE DAY CARE MINUTES DAY CARE S5[address] ADULT; ADULT ADULT PER 15 DAY CARE DAY CARE MINUTES DAY CARE S5100 THE THE SERVICES [address] [place] [address] ADULT; ADULT ADULT PER 15 DAY CARE DAY CARE MINUTES DAY CARE S5100 THE THE SERVICES [address] [place] [address] ADULT; ADULT ADULT PER 15 DAY CARE DAY CARE MINUTES DAY CARE S5100 THE THE SERVICES [address] [place] [address] ADULT; ADULT ADULT PER 15 DAY CARE DAY CARE MINUTES DAY CARE S5100 THE THE SERVICES [address] [place] [address] ADULT; ADULT ADULT PER 15 DAY CARE DAY CARE MINUTES DAY CARE S5100 THE THE SERVICES [address] [place] [address] ADULT; ADULT ADULT PER 15 DAY CARE DAY CARE MINUTES DAY CARE S5100 THE THE SERVICES [address] [place] [address] ADULT; ADULT ADULT PER 15 DAY CARE DAY CARE MINUTES DAY CARE S5100 THE THE SERVICES [address] [place] [address] ADULT; ADULT ADULT PER 15 DAY CARE DAY CARE MINUTES DAY CARE S5100 THE THE SERVICES [address] [place] [address] ADULT; ADULT ADULT PER 15 DAY CARE DAY CARE MINUTES DAY CARE S5100 THE THE SERVICES [address] [place] [address] ADULT; ADULT ADULT PER 15 DAY CARE DAY CARE MINUTES DAY CARE S5100 THE THE SERVICES [address] [place] [address] ADULT; ADULT ADULT PER 15 DAY CARE DAY CARE MINUTES DAY CARE S5100 THE THE SERVICES [address] [place] [address] ADULT; ADULT ADULT PER 15 DAY CARE DAY CARE MINUTES DAY CARE S5[address] ADULT; ADULT ADULT PER 15 DAY CARE DAY CARE MINUTES DAY CARE S5[address] ADULT; ADULT ADULT PER 15 DAY CARE DAY CARE MINUTES DAY CARE S5100 THE THE SERVICES [address] [place] [address] ADULT; ADULT ADULT PER 15 DAY CARE DAY CARE MINUTES DAY CARE S5100 THE THE SERVICES [address] [place] [address] ADULT; ADULT ADULT PER 15 DAY CARE DAY CARE MINUTES DAY CARE S5[address] ADULT; ADULT ADULT PER 15 DAY CARE DAY CARE MINUTES DAY CARE S5100 THE THE SERVICES [address] [place] [address] ADULT; ADULT ADULT PER 15 DAY CARE DAY CARE MINUTES DAY CARE S5100 THE THE SERVICES [address] [place] [address] ADULT; ADULT ADULT PER 15 DAY CARE DAY CARE MINUTES DAY CARE S5100 THE THE SERVICES [address] [place] [address] ADULT; ADULT ADULT PER 15 DAY CARE DAY CARE MINUTES DAY CARE S5100 THE THE SERVICES [address] [place] [address] ADULT; ADULT ADULT PER 15 DAY CARE DAY CARE MINUTES DAY CARE S5[address] ADULT; ADULT ADULT PER 15 DAY CARE DAY CARE MINUTES DAY CARE S5[address] ADULT; ADULT ADULT PER 15 DAY CARE DAY CARE MINUTES DAY CARE S5100 THE THE SERVICES [address] [place] [address] ADULT; ADULT ADULT PER 15 DAY CARE DAY CARE MINUTES DAY CARE S5[address] ADULT; ADULT ADULT PER 15 DAY CARE DAY CARE MINUTES DAY CARE S5[address] ADULT; ADULT ADULT PER 15 DAY CARE DAY CARE MINUTES DAY CARE S5[address] ADULT; ADULT ADULT PER 15 DAY CARE DAY CARE MINUTES DAY CARE S5[address] ADULT; ADULT ADULT PER 15 DAY CARE DAY CARE MINUTES DAY CARE S5[address] ADULT; ADULT ADULT PER 15 DAY CARE DAY CARE MINUTES DAY CARE S5[address] ADULT; ADULT ADULT PER 15 DAY CARE DAY CARE MINUTES DAY CARE S5[address] ADULT; ADULT ADULT PER 15 DAY CARE DAY CARE MINUTES DAY CARE S5[address] ADULT; ADULT ADULT PER 15 DAY CARE DAY CARE MINUTES DAY CARE S5[address] ADULT; ADULT ADULT PER 15 DAY CARE DAY CARE MINUTES DAY CARE S5[address] ADULT; ADULT ADULT PER 15 DAY CARE DAY CARE MINUTES LIPID 99231 [facility] PANEL 4 YFN YFN [employer] GENERAL 42522 [facility] HEALTH 4 YFN YFN PANEL [employer] HEMOGLOBI 50215 [facility] N 4 YFN YFN GLYCOSYLA [employer] JERI A1C DAY CARE S5[address] ADULT; ADULT ADULT PER 15 DAY CARE DAY CARE MINUTES DAY CARE S5[address] ADULT; ADULT ADULT PER 15 DAY CARE DAY CARE MINUTES DAY CARE S5[address] ADULT; ADULT ADULT PER 15 DAY CARE DAY CARE MINUTES NONEMERGE A0100 [facility] [employer] NCY 4 INC TRANSPORT TRANSPORT REGION 9 ATGrovac CO ATION; L TAXI DAY CARE S5100 [address] ADULT; ADULT ADULT PER 15 DAY CARE DAY CARE MINUTES DAY CARE S5[address] ADULT; ADULT ADULT PER 15 DAY CARE DAY CARE MINUTES DAY CARE S5[address] ADULT; ADULT ADULT PER 15 DAY CARE DAY CARE MINUTES DAY CARE S5[address] ADULT; ADULT ADULT PER 15 DAY CARE DAY CARE MINUTES DAY CARE S5[address] ADULT; ADULT ADULT PER 15 DAY CARE DAY CARE MINUTES NONEMERGE A0100 [facility] 3D Product ImagingS MEY 4 INC TRANSPORT TRANSPORT REGION 9 ATGrovac CO ATION; L TAXI EXC B9 85142 [facility] LES MRGN 4 PLASTIC XCP SK TG SURGERY GROUP , F/E/E/N/L /M 1.1-2.0CM REPAIR 97093 [facility] INTERMEDI 4 PLASTIC ATE SURGERY F/E/E/N/L GROUP , &/MUC 2.5 CM/< DAY CARE S5[address] ADULT; ADULT ADULT PER 15 DAY CARE DAY CARE MINUTES DAY CARE S5[address] ADULT; ADULT ADULT PER 15 DAY CARE DAY CARE MINUTES DAY CARE S5[address] ADULT; ADULT ADULT PER 15 DAY CARE DAY CARE MINUTES DAY CARE S5[address] ADULT; ADULT ADULT PER 15 DAY CARE DAY CARE MINUTES DAY CARE S5[address] ADULT; ADULT ADULT PER 15 DAY CARE DAY CARE MINUTES SIMPLE 01349 [facility] REPAIR 4 CARE LOREN SCALP/NEC PHYS K/AX/TEJINDER [place] T/TRUNK 2.5CM/< DAY CARE S5[address] ADULT; ADULT ADULT PER 15 DAY CARE DAY CARE MINUTES DAY CARE S5[address] ADULT; ADULT ADULT PER 15 DAY CARE DAY CARE MINUTES DAY CARE S5[address] ADULT; ADULT ADULT PER 15 DAY CARE DAY CARE MINUTES DAY CARE S5[address] ADULT; ADULT ADULT PER 15 DAY CARE DAY CARE MINUTES DAY CARE S5[address] ADULT; ADULT ADULT PER 15 DAY CARE DAY CARE MINUTES DAY CARE S5[address] ADULT; ADULT ADULT PER 15 DAY CARE DAY CARE MINUTES DIAB ONLY A5500 [facility] FIT CSTM 4 MEDICAL MEDICAL PREP&SPL SUPPLY [employer] DNSITY INSRT FOR DIAB A5512 [place] ONLY MX 4 MEDICAL MEDICAL DNSITY SUPPLY SUPPLY INSRT [employer] FORMD PRFAB EA DAY CARE S5[address] ADULT; ADULT ADULT PER 15 DAY CARE DAY CARE MINUTES DAY CARE S5[address] ADULT; ADULT ADULT PER 15 DAY CARE DAY CARE MINUTES DAY CARE S5[address] ADULT; ADULT ADULT PER 15 DAY CARE DAY CARE MINUTES DAY CARE S5[address] ADULT; ADULT ADULT PER 15 DAY CARE DAY CARE MINUTES DAY CARE S5[address] ADULT; ADULT ADULT PER 15 DAY CARE DAY CARE MINUTES AMB A0427 VICTORIA VICTORIA SERVICE 4 CO CO ALS AMBULANCE AMBULANCE EMERGENCY TAXIN TAXIN TRANSPORT LEVEL [address] TIKA ROUTINE 4 CANDACE GAR ECG W/LEAST PHYSICIAN 12 LDS S EKG I&R ONLY GROUND A0425 VICTORIA VICTORIA MILEAGE 4 CO CO PER AMBULANCE AMBULANCE STATUTE TAXIN TAXIN MILE ECG 04570 [facility] ROUTINE 4 CANDACE MARIA ECG FT FT W/LEAST CRUZ ARROYO 12 LDS TRCG ONLY W/O I&R THER [address] PROPH/DX 4 CANDACE MARIA NJX IV FT FT PUSH CRUZ ARROYO SINGLE/1S T SBST/DRUG BLOOD [address] COUNT 4 CANDACE MARIA COMPLETE FT FT AUTO&AUTO CRUZ [facility] DIFRNTL WBC BASIC 35722 ST METABOLIC 4 CANDACE MARIA PANEL FT FT CALCIUM CRUZ [facility] TOTAL GLUC BLD 91322 ST GLUC MNTR 4 CANDACE MARIA DEV FT FT CLEARED CRUZ [facility] FDA SPEC HOME USE COLLECTIO 90085 ST N VENOUS 4 CANDACE MARIA BLOOD FT FT VENIPUNCT CRUZ [facility]RO[facility] URE DAY CARE S[address] ADULT; ADULT ADULT PER 15 DAY CARE DAY CARE MINUTES DAY CARE S5[address] ADULT; ADULT ADULT PER 15 DAY CARE DAY CARE MINUTES DAY CARE S[address] ADULT; ADULT ADULT PER 15 DAY CARE DAY CARE MINUTES DAY CARE S5[address] ADULT; ADULT ADULT PER 15 DAY CARE DAY CARE MINUTES DAY CARE S[address] ADULT; ADULT ADULT PER 15 DAY CARE DAY CARE MINUTES DAY CARE S[address] ADULT; ADULT ADULT PER 15 DAY CARE DAY CARE MINUTES NONEMERGE A0100 [facility] TRANSPORT TRANSPORT REGION 9 ATION CO ATION; L TAXI DAY CARE S[address] ADULT; ADULT ADULT PER 15 DAY CARE DAY CARE MINUTES DAY CARE S5[address] ADULT; ADULT ADULT PER 15 DAY CARE DAY CARE MINUTES DAY CARE S[address] ADULT; ADULT ADULT PER 15 DAY CARE DAY CARE MINUTES DAY CARE S5100 THE THE SERVICES [address] [place] [address] ADULT; ADULT ADULT PER 15 DAY CARE DAY CARE MINUTES DAY CARE S5100 THE THE SERVICES [address] [place] [address] ADULT; ADULT ADULT PER 15 DAY CARE DAY CARE MINUTES NONEMERGE A0100 [facility] CAC ExpaS NCY 4 INC TRANSPORT TRANSPORT REGION 9 ATION CO ATION; L TAXI RADEX 93161 [facility] SPINE 4 MEGHNA LUMBOSACR ASSOCIATE AL 2/3 S OF [facility] DAY CARE S5100 THE THE SERVICES [address] [place] [address] ADULT; ADULT ADULT PER 15 DAY CARE DAY CARE MINUTES DAY CARE S5100 THE THE SERVICES [address] [place] [address] ADULT; ADULT ADULT PER 15 DAY CARE DAY CARE MINUTES DAY CARE S5100 THE THE SERVICES [address] [place] [address] ADULT; ADULT ADULT PER 15 DAY CARE DAY CARE MINUTES DAY CARE S5100 THE THE SERVICES [address] [place] [address] ADULT; ADULT ADULT PER 15 DAY CARE DAY CARE MINUTES DAY CARE S5100 THE THE SERVICES [address] [place] [address] ADULT; ADULT ADULT PER 15 DAY CARE DAY CARE MINUTES DAY CARE S5100 THE THE SERVICES [address] [place] [address] ADULT; ADULT ADULT PER 15 DAY CARE DAY CARE MINUTES NONEMERGE A0100 [facility] ExpaS NCY 4 INC TRANSPORT TRANSPORT REGION 9 ATION CO ATION; L TAXI DAY CARE S5[address] ADULT; ADULT ADULT PER 15 DAY CARE DAY CARE MINUTES DAY CARE S5100 THE THE SERVICES [address] [place] [address] ADULT; ADULT ADULT PER 15 DAY CARE DAY CARE MINUTES DAY CARE S5100 THE THE SERVICES [address] [place] [address] ADULT; ADULT ADULT PER 15 DAY CARE DAY CARE MINUTES DAY CARE S5100 THE THE SERVICES [address] [place] [address] ADULT; ADULT ADULT PER 15 DAY CARE DAY CARE MINUTES DAY CARE S5[address] ADULT; ADULT ADULT PER 15 DAY CARE DAY CARE MINUTES DAY CARE S5100 THE THE SERVICES [address] [place] [address] ADULT; ADULT ADULT PER 15 DAY CARE DAY CARE MINUTES DAY CARE S5[address] ADULT; ADULT ADULT PER 15 DAY CARE DAY CARE MINUTES DAY CARE S5100 THE THE SERVICES [address] [place] [address] ADULT; ADULT ADULT PER 15 DAY CARE DAY CARE MINUTES DAY CARE S5100 THE THE SERVICES [address] [place] [address] ADULT; ADULT ADULT PER 15 DAY CARE DAY CARE MINUTES DAY CARE S5100 THE THE SERVICES [address] [place] [address] ADULT; ADULT ADULT PER 15 DAY CARE DAY CARE MINUTES DAY CARE S5100 THE THE SERVICES [address] [place] [address] ADULT; ADULT ADULT PER 15 DAY CARE DAY CARE MINUTES DAY CARE S5100 THE THE SERVICES [address] [place] [address] ADULT; ADULT ADULT PER 15 DAY CARE DAY CARE MINUTES DAY CARE S5100 THE THE SERVICES [address] [place] [address] ADULT; ADULT ADULT PER 15 DAY CARE DAY CARE MINUTES DAY CARE S5100 THE THE SERVICES [address] [place] [address] ADULT; ADULT ADULT PER 15 DAY CARE DAY CARE MINUTES DAY CARE S5[address] ADULT; ADULT ADULT PER 15 DAY CARE DAY CARE MINUTES DAY CARE S5100 THE THE SERVICES [address] [place] [address] ADULT; ADULT ADULT PER 15 DAY CARE DAY CARE MINUTES DAY CARE S5[address] ADULT; ADULT ADULT PER 15 DAY CARE DAY CARE MINUTES DAY CARE S5[address] ADULT; ADULT ADULT PER 15 DAY CARE DAY CARE MINUTES DAY CARE S5[address] ADULT; ADULT ADULT PER 15 DAY CARE DAY CARE MINUTES DAY CARE S5[address] ADULT; ADULT ADULT PER 15 DAY CARE DAY CARE MINUTES DAY CARE S5[address] ADULT; ADULT ADULT PER 15 DAY CARE DAY CARE MINUTES DAY CARE S5[address] ADULT; ADULT ADULT PER 15 DAY CARE DAY CARE MINUTES DAY CARE S5[address] ADULT; ADULT ADULT PER 15 DAY CARE DAY CARE MINUTES DAY CARE S5100 THE THE SERVICES [address] [place] [address] ADULT; ADULT ADULT PER 15 DAY CARE DAY CARE MINUTES DAY CARE S5[address] ADULT; ADULT ADULT PER 15 DAY CARE DAY CARE MINUTES DAY CARE S5100 THE THE SERVICES [address] [place] [address] ADULT; ADULT ADULT PER 15 DAY CARE DAY CARE MINUTES DAY CARE S5100 THE THE SERVICES [address] [place] [address] ADULT; ADULT ADULT PER 15 DAY CARE DAY CARE MINUTES DAY CARE S5100 THE THE SERVICES [address] [place] [address] ADULT; ADULT ADULT PER 15 DAY CARE DAY CARE MINUTES DAY CARE S5100 THE THE SERVICES [address] [place] [address] ADULT; ADULT ADULT PER 15 DAY CARE DAY CARE MINUTES DAY CARE S5100 THE THE SERVICES [address] [place] [address] ADULT; ADULT ADULT PER 15 DAY CARE DAY CARE MINUTES DAY CARE S5100 THE THE SERVICES [address] [place] [address] ADULT; ADULT ADULT PER 15 DAY CARE DAY CARE MINUTES DAY CARE S5100 THE THE SERVICES [address] [place] [address] ADULT; ADULT ADULT PER 15 DAY CARE DAY CARE MINUTES DAY CARE S5100 THE THE SERVICES [address] [place] [address] ADULT; ADULT ADULT PER 15 DAY CARE DAY CARE MINUTES DAY CARE S5100 THE THE SERVICES [address] [place] [address] ADULT; ADULT ADULT PER 15 DAY CARE DAY CARE MINUTES DAY CARE S5[address] ADULT; ADULT ADULT PER 15 DAY CARE DAY CARE MINUTES DAY CARE S5[address] ADULT; ADULT ADULT PER 15 DAY CARE DAY CARE MINUTES DAY CARE S5[address] ADULT; ADULT ADULT PER 15 DAY CARE DAY CARE MINUTES DAY CARE S5[address] ADULT; ADULT ADULT PER 15 DAY CARE DAY CARE MINUTES DAY CARE S5100 THE THE SERVICES [address] [place] [address] ADULT; ADULT ADULT PER 15 DAY CARE DAY CARE MINUTES DAY CARE S5100 THE THE SERVICES [address] [place] [address] ADULT; ADULT ADULT PER 15 DAY CARE DAY CARE MINUTES DAY CARE S5100 THE THE SERVICES [address] [place] [address] ADULT; ADULT ADULT PER 15 DAY CARE DAY CARE MINUTES DAY CARE S5100 THE THE SERVICES [address] [place] [address] ADULT; ADULT ADULT PER 15 DAY CARE DAY CARE MINUTES DAY CARE S5[address] ADULT; ADULT ADULT PER 15 DAY CARE DAY CARE MINUTES DAY CARE S5[address] ADULT; ADULT ADULT PER 15 DAY CARE DAY CARE MINUTES DAY CARE S5[address] ADULT; ADULT ADULT PER 15 DAY CARE DAY CARE MINUTES DAY CARE S5[address] ADULT; ADULT ADULT PER 15 DAY CARE DAY CARE MINUTES DAY CARE S5[address] ADULT; ADULT ADULT PER 15 DAY CARE DAY CARE MINUTES DAY CARE S5[address] ADULT; ADULT ADULT PER 15 DAY CARE DAY CARE MINUTES DAY CARE S5[address] ADULT; ADULT ADULT PER 15 DAY CARE DAY CARE MINUTES DAY CARE S5[address] ADULT; ADULT ADULT PER 15 DAY CARE DAY CARE MINUTES DAY CARE S5[address] ADULT; ADULT ADULT PER 15 DAY CARE DAY CARE MINUTES DAY CARE S5[address] ADULT; ADULT ADULT PER 15 DAY CARE DAY CARE MINUTES DAY CARE S5[address] ADULT; ADULT ADULT PER 15 DAY CARE DAY CARE MINUTES DAY CARE S5[address] ADULT; ADULT ADULT PER 15 DAY CARE DAY CARE MINUTES DAY CARE S5[address] ADULT; ADULT ADULT PER 15 DAY CARE DAY CARE MINUTES NONEMERGE A0100 [facility] NCY 4 INC TRANSPORT TRANSPORT REGION 9 ATION CO ATION; L TAXI MAMMOGRAP [address] HY 4 CANDACE MARIA BILATERAL FT FT [facility] DIAGNOSTI G0204 RADIOLOGY SAMUEL C 4 GAR MAMMOGRAP ASSOCIATE HY INCL S OF [facility] CAD WHEN PERF; BILAT COMPUTER- 48680 RADIOLOGY SAMUEL AIDED 4 GAR DETECTION ASSOCIATE DX S OF [facility] MAMMOGRAP HY DAY CARE S[address] ADULT; ADULT ADULT PER 15 DAY CARE DAY CARE MINUTES DAY CARE S5[address] ADULT; ADULT ADULT PER 15 DAY CARE DAY CARE MINUTES DAY CARE S5[address] ADULT; ADULT ADULT PER 15 DAY CARE DAY CARE MINUTES DAY CARE S[address] ADULT; ADULT ADULT PER 15 DAY CARE DAY CARE MINUTES DAY CARE S5[address] ADULT; ADULT ADULT PER 15 DAY CARE DAY CARE MINUTES DAY CARE S5100 THE THE SERVICES [address] [place] [address] ADULT; ADULT ADULT PER 15 DAY CARE DAY CARE MINUTES NONEMERGE A0100 [facility] NCY 4 INC TRANSPORT TRANSPORT REGION 9 ATION CO ATION; L TAXI NONEMERGE A0100 [facility] NCY 4 INC TRANSPORT TRANSPORT REGION 9 ATION CO ATION; L TAXI DAY CARE S[address] ADULT; ADULT ADULT PER 15 DAY CARE DAY CARE MINUTES DAY CARE S5[address] ADULT; ADULT ADULT PER 15 DAY CARE DAY CARE MINUTES DAY CARE S5[address] ADULT; ADULT ADULT PER 15 DAY CARE DAY CARE MINUTES DAY CARE S5[address] ADULT; ADULT ADULT PER 15 DAY CARE DAY CARE MINUTES DAY CARE S5[address] ADULT; ADULT ADULT PER 15 DAY CARE DAY CARE MINUTES DAY CARE S5[address] ADULT; ADULT ADULT PER 15 DAY CARE DAY CARE MINUTES SKIN TEST 93393 [facility] 4 CANDACE CORONA TUBERCULO SIS PHYSICIAN INTRADERM S AL DAY CARE S5[address] ADULT; ADULT ADULT PER 15 DAY CARE DAY CARE MINUTES DAY CARE S[address] ADULT; ADULT ADULT PER 15 DAY CARE DAY CARE MINUTES DAY CARE S[address] ADULT; ADULT ADULT PER 15 DAY CARE DAY CARE MINUTES DAY CARE S5[address] ADULT; ADULT ADULT PER 15 DAY CARE DAY CARE MINUTES DETERMINA 88789 [facility] TION 4 NOLVIA, REFRACTIV OD, PSC E STATE OPHTH 01709 [facility] MEDICAL 4 NOLVIA, XM&EVAL OD, PSC COMPRE NEW PT 1/> VST DAY CARE S5[address] ADULT; ADULT ADULT PER 15 DAY CARE DAY CARE MINUTES DAY CARE S[address] ADULT; ADULT ADULT PER 15 DAY CARE DAY CARE MINUTES DAY CARE S5100 THE THE SERVICES [address] [place] [address] ADULT; ADULT ADULT PER 15 DAY CARE DAY CARE MINUTES DAY CARE S[address] ADULT; ADULT ADULT PER 15 DAY CARE DAY CARE MINUTES DAY CARE S[address] ADULT; ADULT ADULT PER 15 DAY CARE DAY CARE MINUTES DAY CARE S[address] ADULT; ADULT ADULT PER 15 DAY CARE DAY CARE MINUTES DAY CARE S5100 THE THE SERVICES [address] [place] [address] ADULT; ADULT ADULT PER 15 DAY CARE DAY CARE MINUTES DAY CARE S[address] ADULT; ADULT ADULT PER 15 DAY CARE DAY CARE MINUTES DAY CARE S[address] ADULT; ADULT ADULT PER 15 DAY CARE DAY CARE MINUTES DAY CARE S[address] ADULT; ADULT ADULT PER 15 DAY CARE DAY CARE MINUTES DAY CARE S[address] ADULT; ADULT ADULT PER 15 DAY CARE DAY CARE MINUTES DAY CARE S5100 THE THE SERVICES [address] [place] [address] ADULT; ADULT ADULT PER 15 DAY CARE DAY CARE MINUTES DAY CARE S[address] ADULT; ADULT ADULT PER 15 DAY CARE DAY CARE MINUTES DAY CARE S[address] ADULT; ADULT ADULT PER 15 DAY CARE DAY CARE MINUTES DAY CARE S[address] ADULT; ADULT ADULT PER 15 DAY CARE DAY CARE MINUTES DAY CARE S[address] ADULT; ADULT ADULT PER 15 DAY CARE DAY CARE MINUTES DAY CARE S[address] ADULT; ADULT ADULT PER 15 DAY CARE DAY CARE MINUTES [id number] HYDROXY 4 C[facility]ACE CAND[facility] INCLUDES [facility] IF PERFORMED DAY CARE S[address] ADULT; ADULT ADULT PER 15 DAY CARE DAY CARE MINUTES DAY CARE S[address] ADULT; ADULT ADULT PER 15 DAY CARE DAY CARE MINUTES [place] [id number] [facility] TIKA ROUTINE 4 CANDACE GAR ECG W/LEAST PHYSICIAN 12 LDS S EKG I&R ONLY MYOCARDIA [address]3239 ST [facility] MOH L SPECT 4 CANDACE MULTIPLE STUDIES PHYSICIAN S CV STRS 96387 [facility] MOH TST 4 CANDACE XERS&/OR RX CONT PHYSICIAN ECG W/O S I&R CV STRS [address]60 [facility] MOH TST 4 CANDACE XERS&/OR RX CONT PHYSICIAN ECG I&R S ONLY ECG [address]1923 ST TIKA ROUTINE 4 CANDACE GAR ECG W/LEAST PHYSICIAN 12 LDS S EKG I&R ONLY ECG [id number] [facility] TIKA ROUTINE 4 CANDACE GAR ECG W/LEAST PHYSICIAN 12 LDS S EKG I&R ONLY AMB [id number] VICTORIA VICTORIA SERVICE 4 CO CO [facility] AMBULANCE EMERGENCY TAXIN TAXIN TRANSPORT LEVEL 1 RADIOLOGI [id number] RADIOLOGY HAMZAH C EXAM 4 TUS CHEST 2 ASSOCIATE VIEWS S OF [facility] FRONTAL&L ATERAL GROUND A0425 VICTORIA VICTORIA MILEAGE 4 CO CO PER AMBULANCE AMBULANCE STATUTE TAXIN TAXIN MILE MRI BRAIN [id number] BRAIN 4 CANDACE CANDACE STEM W/O FT FT W/CONTRAS CRUZ CRUZ T MATERIAL ECHO [address] TTHRC R-T 4 CANDACE CANDACE 2D FT FT W/WOM-MOD CRUZ PRICE SPEC&COLR D DAY CARE S5[address] ADULT; ADULT ADULT PER 15 DAY CARE DAY CARE MINUTES DAY CARE S5100 THE THE SERVICES [address] [place] [address] ADULT; ADULT ADULT PER 15 DAY CARE DAY CARE MINUTES DAY CARE S5100 THE THE SERVICES [address] [place] [address] ADULT; ADULT ADULT PER 15 DAY CARE DAY CARE MINUTES DAY CARE S5100 THE THE SERVICES [address] [place] [address] ADULT; ADULT ADULT PER 15 DAY CARE DAY CARE MINUTES DAY CARE S5100 THE THE SERVICES [address] [place] [address] ADULT; ADULT ADULT PER 15 DAY CARE DAY CARE MINUTES DAY CARE S5100 THE THE SERVICES [address] [place] [address] ADULT; ADULT ADULT PER 15 DAY CARE DAY CARE MINUTES DAY CARE S5[address] ADULT; ADULT ADULT PER 15 DAY CARE DAY CARE MINUTES DAY CARE S5[address] ADULT; ADULT ADULT PER 15 DAY CARE DAY CARE MINUTES DAY CARE S5[address] ADULT; ADULT ADULT PER 15 DAY CARE DAY CARE MINUTES DAY CARE S5[address] ADULT; ADULT ADULT PER 15 DAY CARE DAY CARE MINUTES DAY CARE S5[address] ADULT; ADULT ADULT PER 15 DAY CARE DAY CARE MINUTES DAY CARE S5[address] ADULT; ADULT ADULT PER 15 DAY CARE DAY CARE MINUTES DAY CARE S5[address] ADULT; ADULT ADULT PER 15 DAY CARE DAY CARE MINUTES DAY CARE S5[address] ADULT; ADULT ADULT PER 15 DAY CARE DAY CARE MINUTES DAY CARE S5[address] ADULT; ADULT ADULT PER 15 DAY CARE DAY CARE MINUTES DAY CARE S5[address] ADULT; ADULT ADULT PER 15 DAY CARE DAY CARE MINUTES DAY CARE S5100 THE THE SERVICES [address] [place] [address] ADULT; ADULT ADULT PER 15 DAY CARE DAY CARE MINUTES DAY CARE S5100 THE THE SERVICES [address] [place] [address] ADULT; ADULT ADULT PER 15 DAY CARE DAY CARE MINUTES NONEMERGE A0100 LKLP CAC LEWIS NCY 4 INC TRANSPORT TRANSPORT REGION 9 ATION CO ATION; L TAXI RADEX 94743 ARBEN GARDINER FINGR 4 LT ER MAT MINIMUM 2 [facility] DAY CARE S5[address] ADULT; ADULT ADULT PER 15 DAY CARE DAY CARE MINUTES DAY CARE S5100 THE THE SERVICES 4 [facility] ADULT; ADULT ADULT PER 15 DAY CARE DAY CARE MINUTES DAY CARE S5100 THE THE SERVICES [address] [place] [address] ADULT; ADULT ADULT PER 15 DAY CARE DAY CARE MINUTES DAY CARE S5[address] ADULT; ADULT ADULT PER 15 DAY CARE DAY CARE MINUTES DAY CARE S5[address] ADULT; ADULT ADULT PER 15 DAY CARE DAY CARE MINUTES DAY CARE S5[address] ADULT; ADULT ADULT PER 15 DAY CARE DAY CARE MINUTES DAY CARE S5100 THE THE SERVICES [address] [place] [address] ADULT; ADULT ADULT PER 15 DAY CARE DAY CARE MINUTES GROUND A0425 VICTORIA VICTORIA MILEAGE 3 CO CO PER AMBULANCE AMBULANCE STATUTE TAXIN TAXIN MILE AMBULANCE A0429 VICTORIA VICTORIA SERVICE 3 CO CO BLS AMBULANCE AMBULANCE EMERGENCY TAXIN TAXIN TRANSPORT RADEX 42323 RADIOLOGY ROEBKER SPINE 3 JAM LUMBOSACR ASSOCIATE AL 2/3 S OF [facility] DAY CARE S5100 THE THE SERVICES [address] [place] [address] ADULT; ADULT ADULT PER 15 DAY CARE DAY CARE MINUTES DAY CARE S5100 THE THE SERVICES [address] [place] [address] ADULT; ADULT ADULT PER 15 DAY CARE DAY CARE MINUTES DAY CARE S5100 [address] ADULT; ADULT ADULT PER 15 DAY CARE DAY CARE MINUTES DAY CARE S5100 THE THE SERVICES [address] [place] [address] ADULT; ADULT ADULT PER 15 DAY CARE DAY CARE MINUTES DAY CARE S5[address] ADULT; ADULT ADULT PER 15 DAY CARE DAY CARE MINUTES DAY CARE S5100 THE THE SERVICES 3 [facility] ADULT; ADULT ADULT PER 15 DAY CARE DAY CARE MINUTES DAY CARE S5100 THE THE SERVICES 3 [facility] ADULT; ADULT ADULT PER 15 DAY CARE DAY CARE MINUTES DAY CARE S5100 THE THE SERVICES 3 [facility] ADULT; ADULT ADULT PER 15 DAY CARE DAY CARE MINUTES DAY CARE S5100 THE THE SERVICES 3 [facility] ADULT; ADULT ADULT PER 15 DAY CARE DAY CARE MINUTES DAY CARE S5100 THE THE SERVICES 3 [facility] ADULT; ADULT ADULT PER 15 DAY CARE DAY CARE MINUTES DAY CARE S5100 THE THE SERVICES 3 [facility] ADULT; ADULT ADULT PER 15 DAY CARE DAY CARE MINUTES DAY CARE S5100 THE THE SERVICES [address] [place] [address] ADULT; ADULT ADULT PER 15 DAY CARE DAY CARE MINUTES DAY CARE S5100 THE THE SERVICES [address] [place] [address] ADULT; ADULT ADULT PER 15 DAY CARE DAY CARE MINUTES DAY CARE S5100 THE THE SERVICES [address] [place] [address] ADULT; ADULT ADULT PER 15 DAY CARE DAY CARE MINUTES DAY CARE S5100 THE THE SERVICES [address] [place] [address] ADULT; ADULT ADULT PER 15 DAY CARE DAY CARE MINUTES DAY CARE S5[address] ADULT; ADULT ADULT PER 15 DAY CARE DAY CARE MINUTES RADEX 23573 ARBEN GARDINER [facility] 3 [facility] ER MAT MINIMUM 2 ORTHOPAE VIEWS DAY CARE S[address] ADULT; ADULT ADULT PER 15 DAY CARE DAY CARE MINUTES DAY CARE S5[address] ADULT; ADULT ADULT PER 15 DAY CARE DAY CARE MINUTES DAY CARE S5[address] ADULT; ADULT ADULT PER 15 DAY CARE DAY CARE MINUTES DAY CARE S5[address] ADULT; ADULT ADULT PER 15 DAY CARE DAY CARE MINUTES DAY CARE S5[address] ADULT; ADULT ADULT PER 15 [place] [address] [place] [address] CANDACE MARIA FT FT CRUZ ARROYO COLLECTIO [address] N VENOUS 3 CANDACE MARIA BLOOD FT FT VENIPUNCT CRUZ ARROYO URE DAY CARE S5[address] ADULT; ADULT ADULT PER 15 DAY CARE DAY CARE MINUTES DAY CARE S5[address] ADULT; ADULT ADULT PER 15 DAY CARE DAY CARE MINUTES DAY CARE S5[address] ADULT; ADULT ADULT PER 15 DAY CARE DAY CARE MINUTES DAY CARE S5[address] ADULT; ADULT ADULT PER 15 DAY CARE DAY CARE MINUTES PRQ SKEL 73675 [facility] ABDIFATAH FIXJ DSTL 3 LTH ER MAT PHLNGL ORTHOPAE FX FNGR/THMB EA ANES [id number] INDEPENDE MASROOR ARTHRS/EN 3 NT ALA DSCPY ANESTHESI DSTL OLOGIST RADIUS ULNA/WRIS T/HAND DAY CARE S5[address] ADULT; ADULT ADULT PER 15 DAY CARE DAY CARE MINUTES DAY CARE S5[address] ADULT; ADULT ADULT PER 15 DAY CARE DAY CARE MINUTES NONEMERGE A0100 LKLP CAC BENNETTS NCY 3 INC TRANSPORT TRANSPORT REGION 9 ATION CO ATION; L TAXI INFLUENZA 42218 ST AN VACC 3 CANDACE TILLMAN CHLOE IIV3 SPLIT PHYSICIAN VIRUS S PRSRV FREE ID HEMOGLOBI [id number] N 3 CANDACE MARIA GLYCOSYLA JERI A1C PHYSICIAN PHYSICIAN S S DAY CARE S[address] ADULT; ADULT ADULT PER 15 DAY CARE DAY CARE MINUTES DAY CARE S5[address] ADULT; ADULT ADULT PER 15 DAY CARE DAY CARE MINUTES NONEMERGE A0100 LKLP CAC [facility] NCY 3 INC TRANSPORT TRANSPORT REGION 9 ATION CO ATION; L TAXI RADEX 44916 [facility] ABDIFATAH FINGR 3 LTH ER MAT MINIMUM 2 ORTHOPAE VIEWS DAY CARE S5100 THE THE SERVICES 3 [facility] ADULT; ADULT ADULT PER 15 DAY CARE DAY CARE MINUTES DAY CARE S5100 THE THE SERVICES 3 [facility] ADULT; ADULT ADULT PER 15 DAY CARE DAY CARE MINUTES DAY CARE S5100 THE THE SERVICES 3 [facility] ADULT; ADULT ADULT PER 15 DAY CARE DAY CARE MINUTES DAY CARE S5100 THE THE SERVICES 3 [facility] ADULT; ADULT ADULT PER 15 DAY CARE DAY CARE MINUTES DAY CARE S5100 THE THE SERVICES 3 [facility] ADULT; ADULT ADULT PER 15 DAY CARE DAY CARE MINUTES DAY CARE S5100 THE THE SERVICES 3 [facility] ADULT; ADULT ADULT PER 15 DAY CARE DAY CARE MINUTES DAY CARE S5100 THE THE SERVICES [address] [place] [address] ADULT; ADULT ADULT PER 15 DAY CARE DAY CARE MINUTES DAY CARE S5100 THE THE SERVICES [address] [place] [address] ADULT; ADULT ADULT PER [address] [place] [address] RADIOLOGY VISHAL HEAD/BRAI 3 HARISH N W/O ASSOCIATE CONTRAST S OF [facility] MATERIAL AMB A0427 VICTORIA VICTORIA SERVICE 3 CO CO ALS AMBULANCE AMBULANCE EMERGENCY TAXIN TAXIN TRANSPORT LEVEL 1 ECG 81176 [facility] ROUTINE 3 CANDACE PEG ECG W/LEAST PHYSICIAN 12 LDS S EKG I&R ONLY GROUND A0425 VICTORIA VICTORIA MILEAGE 3 CO CO PER AMBULANCE AMBULANCE STATUTE TAXIN TAXIN MILE RADIOLOGI 93958 RADIOLOGY VISHAL C EXAM 3 HARISH CHEST 2 ASSOCIATE VIEWS S OF [facility] FRONTAL&L ATERAL DAY CARE S5100 THE THE SERVICES 3 [facility] ADULT; ADULT ADULT PER 15 DAY CARE DAY CARE MINUTES DAY CARE S5[address] ADULT; ADULT ADULT PER 15 DAY CARE DAY CARE MINUTES DAY CARE S5[address] ADULT; ADULT ADULT PER 15 DAY CARE DAY CARE MINUTES DAY CARE S5100 THE THE SERVICES [address] [place] [address] ADULT; ADULT ADULT PER 15 DAY CARE DAY CARE MINUTES DAY CARE S5[address] ADULT; ADULT ADULT PER 15 DAY CARE DAY CARE MINUTES DAY CARE S5[address] ADULT; ADULT ADULT PER 15 DAY CARE DAY CARE MINUTES DAY CARE S5[address] ADULT; ADULT ADULT PER 15 DAY CARE DAY CARE MINUTES ECG [address] ST GLYNN NIV ROUTINE 3 CANDACE ECG W/LEAST PHYSICIAN 12 LDS S EKG I&R ONLY AMB A0427 VICTORIA VICTORIA SERVICE 3 CO CO ALS AMBULANCE AMBULANCE EMERGENCY [place] [address] RADIOLOGY HAMZAH HEAD/BRAI 3 TUS N W/O ASSOCIATE CONTRAST S OF [facility] MATERIAL GROUND A0425 VICTORIA VICTORIA MILEAGE 3 CO CO PER AMBULANCE AMBULANCE STATUTE TAXIN TAXIN MILE DAY CARE S5[address] ADULT; ADULT ADULT PER 15 DAY CARE DAY CARE MINUTES DAY CARE S5[address] ADULT; ADULT ADULT PER 15 DAY CARE DAY CARE MINUTES DAY CARE S5[address] ADULT; ADULT ADULT PER 15 DAY CARE DAY CARE MINUTES DAY CARE S5[address] ADULT; ADULT ADULT PER 15 DAY CARE DAY CARE MINUTES DAY CARE S5[address] ADULT; ADULT ADULT PER 15 DAY CARE DAY CARE MINUTES NONEMERGE A0100 LP CAC REYES NCY 3 [facility] TRANSPORT TRANSPORT REGION 9 ATION CO ATION; L TAXI CLTX DSTL 31767 [facility] GRUNKEMEY PHLNGL 3 LTH ER MAT FX ORTHOPAE FNGR/THMB W/O MANJ EA DAY CARE S[address] ADULT; ADULT ADULT PER 15 DAY CARE DAY CARE MINUTES DAY CARE S5[address] ADULT; ADULT ADULT PER 15 DAY CARE DAY CARE MINUTES DAY CARE S5[address] ADULT; ADULT ADULT PER 15 DAY CARE DAY CARE MINUTES DAY CARE S5[address] ADULT; ADULT ADULT PER 15 DAY CARE DAY CARE MINUTES DAY CARE S5100 THE THE SERVICES [address] [place] [address] ADULT; ADULT ADULT PER 15 DAY CARE DAY CARE MINUTES DAY CARE S5[address] ADULT; ADULT ADULT PER 15 DAY CARE DAY CARE MINUTES DAY CARE S5[address] ADULT; ADULT ADULT PER 15 DAY CARE DAY CARE MINUTES GROUND A0425 CAMBODIAN CAMBODIAN MILEAGE 3 AMBULETTE AMBULETTE PER AND AND STATUTE AMBUL AMBUL MILE AMBULANCE A0429 CAMBODIAN CAMBODIAN SERVICE 3 AMBULETTE AMBULETTE BLS AND AND EMERGENCY AMBUL AMBUL TRANSPORT RADEX 84088 RADIOLOGY [facility] 3 [facility] 3 ASSOCIATE VIEWS S OF [facility] DAY CARE S[address] ADULT; ADULT ADULT PER 15 DAY CARE DAY CARE MINUTES DAY CARE S5[address] ADULT; ADULT ADULT PER 15 DAY CARE DAY CARE MINUTES DAY CARE S5[address] ADULT; ADULT ADULT PER 15 DAY CARE DAY CARE MINUTES DAY CARE S5[address] ADULT; ADULT ADULT PER 15 DAY CARE DAY CARE MINUTES DAY CARE S5[address] ADULT; ADULT ADULT PER 15 DAY CARE DAY CARE MINUTES DAY CARE S5[address] ADULT; ADULT ADULT PER 15 DAY CARE DAY CARE MINUTES DAY CARE S5[address] ADULT; ADULT ADULT PER 15 DAY CARE DAY CARE MINUTES DAY CARE S5[address] ADULT; ADULT ADULT PER 15 DAY CARE DAY CARE MINUTES DAY CARE S5[address] ADULT; ADULT ADULT PER 15 DAY CARE DAY CARE MINUTES DAY CARE S5[address] ADULT; ADULT ADULT PER 15 DAY CARE DAY CARE MINUTES DAY CARE S5[address] ADULT; ADULT ADULT PER 15 DAY CARE DAY CARE MINUTES DAY CARE S5[address] ADULT; ADULT ADULT PER 15 DAY CARE DAY CARE MINUTES DAY CARE S5100 THE THE SERVICES 3 [facility] ADULT; ADULT ADULT PER 15 DAY CARE DAY CARE MINUTES DAY CARE S5100 THE THE SERVICES 3 [facility] ADULT; ADULT ADULT PER 15 DAY CARE DAY CARE MINUTES DAY CARE S5100 THE THE SERVICES [address] [place] [address] ADULT; ADULT ADULT PER 15 DAY CARE DAY CARE MINUTES DAY CARE S5100 THE THE SERVICES [address] [place] [address] ADULT; ADULT ADULT PER 15 DAY CARE DAY CARE MINUTES DAY CARE S5100 THE THE SERVICES [address] [place] [address] ADULT; ADULT ADULT PER 15 DAY CARE DAY CARE MINUTES DAY CARE S5[address] ADULT; ADULT ADULT PER 15 DAY CARE DAY CARE MINUTES DAY CARE S5[address] ADULT; ADULT ADULT PER 15 DAY CARE DAY CARE MINUTES AMB A0427 VICTORIA VICTORIA SERVICE 3 CO CO ALS AMBULANCE AMBULANCE EMERGENCY TAXIN TAXIN TRANSPORT LEVEL 1 ECG 98046 [facility] ROUTINE 3 EMERGENCY ECG SERVICES W/LEAST 12 LDS I&R ONLY GROUND A0425 VICTORIA VICTORIA MILEAGE 3 CO CO PER AMBULANCE AMBULANCE STATUTE TAXIN TAXIN MILE DAY CARE S[address] ADULT; ADULT ADULT PER 15 DAY CARE DAY CARE MINUTES DAY CARE S5[address] ADULT; ADULT ADULT PER 15 DAY CARE DAY CARE MINUTES DAY CARE S5[address] ADULT; ADULT ADULT PER 15 DAY CARE DAY CARE MINUTES DAY CARE S5[address] ADULT; ADULT ADULT PER 15 DAY CARE DAY CARE MINUTES DAY CARE S5[address] ADULT; ADULT ADULT PER 15 DAY CARE DAY CARE MINUTES DAY CARE S[address] ADULT; ADULT ADULT PER 15 DAY CARE DAY CARE MINUTES DAY CARE S5[address] ADULT; ADULT ADULT PER 15 DAY CARE DAY CARE MINUTES GROUND A0425 VICTORIA VICTORIA MILEAGE 3 CO CO PER AMBULANCE AMBULANCE STATUTE TAXIN TAXIN MILE AMBULANCE A0429 VICTORIA VICTORIA SERVICE 3 CO CO BLS AMBULANCE AMBULANCE EMERGENCY TAXIN TAXIN TRANSPORT DAY CARE S[address] ADULT; ADULT ADULT PER 15 DAY CARE DAY CARE MINUTES DAY CARE S5[address] ADULT; ADULT ADULT PER 15 DAY CARE DAY CARE MINUTES DAY CARE S5[address] ADULT; ADULT ADULT PER 15 DAY CARE DAY CARE MINUTES DAY CARE S5[address] ADULT; ADULT ADULT PER 15 DAY CARE DAY CARE MINUTES DAY CARE S5[address] ADULT; ADULT ADULT PER 15 DAY CARE DAY CARE MINUTES DAY CARE S5[address] ADULT; ADULT ADULT PER 15 DAY CARE DAY CARE MINUTES DAY CARE S5[address] ADULT; ADULT ADULT PER 15 DAY CARE DAY CARE MINUTES DAY CARE S5[address] ADULT; ADULT ADULT PER 15 DAY CARE DAY CARE MINUTES DAY CARE S5[address] ADULT; ADULT ADULT PER 15 DAY CARE DAY CARE MINUTES DAY CARE S5[address] ADULT; ADULT ADULT PER 15 DAY CARE DAY CARE MINUTES GROUND A0425 VICTORIA VICTORIA MILEAGE 3 CO CO PER AMBULANCE AMBULANCE STATUTE TAXIN TAXIN MILE ECG 55862 [facility] ROUTINE 3 CANDACE PEG ECG W/LEAST PHYSICIAN 12 LDS S EKG I&R ONLY AMB A0427 VICTORIA VICTORIA SERVICE 3 CO CO ALS AMBULANCE AMBULANCE EMERGENCY TAXIN TAXIN TRANSPORT LEVEL 1 DAY CARE S[address] ADULT; ADULT ADULT PER 15 DAY CARE DAY CARE MINUTES DAY CARE S5[address] ADULT; ADULT ADULT PER 15 DAY CARE DAY CARE MINUTES DAY CARE S5[address] ADULT; ADULT ADULT PER 15 DAY CARE DAY CARE MINUTES DAY CARE S5100 THE THE SERVICES [address] [place] [address] ADULT; ADULT ADULT PER 15 DAY CARE DAY CARE MINUTES DAY CARE S5100 THE THE SERVICES [address] [place] [address] ADULT; ADULT ADULT PER 15 DAY CARE DAY CARE MINUTES DAY CARE S5[address] ADULT; ADULT ADULT PER 15 DAY CARE DAY CARE MINUTES DAY CARE S5100 THE THE SERVICES [address] [place] [address] ADULT; ADULT ADULT PER 15 DAY CARE DAY CARE MINUTES DAY CARE S5[address] ADULT; ADULT ADULT PER 15 DAY CARE DAY CARE MINUTES DAY CARE S5[address] ADULT; ADULT ADULT PER 15 DAY CARE DAY CARE MINUTES SBSQ 33891 [facility] 3 CANDACE CARE/DAY 25 PHYSICIAN MINUTES S ECG 06331 [facility] ROUTINE 3 CANDACE GAR ECG W/LEAST PHYSICIAN 12 LDS S EKG I&R ONLY INITIAL 94043 [facility] 3 CANDACE CARE/DAY [address] [place] [address] RADIOLOGY REN HEAD/BRAI 3 III LIANA N W/O ASSOCIATE CONTRAST S OF [facility] MATERIAL CRITICAL 47687 EMERGENCY [facility] 3 CARE ILL/INJUR PHYS ED [facility] PATIENT INIT 30-74 MIN DAY CARE S5[address] ADULT; ADULT ADULT PER 15 DAY CARE DAY CARE MINUTES DAY CARE S5[address] ADULT; ADULT ADULT PER 15 DAY CARE DAY CARE MINUTES DAY CARE S[address] ADULT; ADULT ADULT PER 15 DAY CARE DAY CARE MINUTES DAY CARE S[address] ADULT; ADULT ADULT PER 15 DAY CARE DAY CARE MINUTES DAY CARE S[address] ADULT; ADULT ADULT PER 15 DAY CARE DAY CARE MINUTES DAY CARE S[address] ADULT; ADULT ADULT PER 15 DAY CARE DAY CARE MINUTES DAY CARE S[address] ADULT; ADULT ADULT PER 15 DAY CARE DAY CARE MINUTES DAY CARE S5100 THE THE SERVICES 3 [facility] ADULT; ADULT ADULT PER 15 DAY CARE DAY CARE MINUTES DAY CARE S5100 THE THE SERVICES [address] [place] [address] ADULT; ADULT ADULT PER 15 DAY CARE DAY CARE MINUTES DAY CARE S5100 THE THE SERVICES [address] [place] [address] ADULT; ADULT ADULT PER 15 DAY CARE DAY CARE MINUTES DAY CARE S5100 THE THE SERVICES [address] [place] [address] ADULT; ADULT ADULT PER 15 DAY CARE DAY CARE MINUTES DAY CARE S5100 THE THE SERVICES [address] [place] [address] ADULT; ADULT ADULT PER 15 DAY CARE DAY CARE MINUTES DAY CARE S[address] ADULT; ADULT ADULT PER 15 DAY CARE DAY CARE MINUTES NONEMERGE A0100 LKLP [facility] TRANSPORT TRANSPORT REGION 9 ATION CO ATION; L TAXI DAY CARE S[address] ADULT; ADULT ADULT PER 15 DAY CARE DAY CARE MINUTES DAY CARE S5[address] ADULT; ADULT ADULT PER 15 DAY CARE DAY CARE MINUTES DAY CARE S[address] ADULT; ADULT ADULT PER 15 DAY CARE DAY CARE MINUTES DAY CARE S[address] ADULT; ADULT ADULT PER 15 DAY CARE DAY CARE MINUTES DAY CARE S[address] ADULT; ADULT ADULT PER 15 DAY CARE DAY CARE MINUTES DAY CARE S[address] ADULT; ADULT ADULT PER 15 DAY CARE DAY CARE MINUTES DAY CARE S[address] ADULT; ADULT ADULT PER 15 DAY CARE DAY CARE MINUTES DAY CARE S[address] ADULT; ADULT ADULT PER 15 DAY CARE DAY CARE MINUTES DAY CARE S[address] ADULT; ADULT ADULT PER 15 DAY CARE DAY CARE MINUTES DAY CARE S[address] ADULT; ADULT ADULT PER 15 DAY CARE DAY CARE MINUTES DAY CARE S[address] ADULT; ADULT ADULT PER 15 DAY CARE DAY CARE MINUTES DAY CARE S[address] ADULT; ADULT ADULT PER 15 DAY CARE DAY CARE MINUTES DAY CARE S[address] ADULT; ADULT ADULT PER 15 DAY CARE DAY CARE MINUTES DAY CARE S[address] ADULT; ADULT ADULT PER 15 DAY CARE DAY CARE MINUTES DAY CARE S[address] ADULT; ADULT ADULT PER 15 DAY CARE DAY CARE MINUTES DAY CARE S[address] ADULT; ADULT ADULT PER 15 DAY CARE DAY CARE MINUTES DAY CARE S[address] ADULT; ADULT ADULT PER 15 DAY CARE DAY CARE MINUTES DAY CARE S[address] ADULT; ADULT ADULT PER 15 DAY CARE DAY CARE MINUTES DAY CARE S[address] ADULT; ADULT ADULT PER 15 DAY CARE DAY CARE MINUTES DAY CARE S5100 THE THE SERVICES [address] [place] [address] ADULT; ADULT ADULT PER [address] [place] [address] [facility] SPINE [facility]/[place] [address] [facility] HEAD/BRAI 3 [facility] N W/O INC INC CONTRAST MATERIAL 3D 15258 [facility] RENDERING 3 [facility] INC INC W/INTERP& [place] [address] [facility] THORACIC 3 [facility]INE W/O INC INC CONTRAST MATERIAL CT LUMBAR 88627 [facility] SPINE 3 [facility] W/O INC INC CONTRAST MATERIAL GROUND A0425 VICTORIA VICTORIA MILEAGE 3 CO CO PER AMBULANCE AMBULANCE STATUTE TAXIN TAXIN MILE AMBULANCE A0429 VICTORIA VICTORIA SERVICE 3 CO CO BLS AMBULANCE AMBULANCE EMERGENCY TAXIN TAXIN TRANSPORT DAY CARE S[address] ADULT; ADULT ADULT PER 15 DAY CARE DAY CARE MINUTES DAY CARE S[address] ADULT; ADULT ADULT PER 15 DAY CARE DAY CARE MINUTES DAY CARE S[address] ADULT; ADULT ADULT PER 15 DAY CARE DAY CARE MINUTES DAY CARE S[address] ADULT; ADULT ADULT PER 15 DAY CARE DAY CARE MINUTES DAY CARE S[address] ADULT; ADULT ADULT PER 15 DAY CARE DAY CARE MINUTES GROUND A0425 VICTORIA VICTORIA MILEAGE 3 CO CO PER AMBULANCE AMBULANCE STATUTE TAXIN TAXIN MILE AMB A0427 VICTORIA VICTORIA SERVICE 3 CO CO ALS AMBULANCE AMBULANCE EMERGENCY TAXIN TAXIN TRANSPORT LEVEL 1 DAY CARE S[address] ADULT; ADULT ADULT PER 15 DAY CARE DAY CARE MINUTES DAY CARE S[address] ADULT; ADULT ADULT PER 15 DAY CARE DAY CARE MINUTES COLLECTIO 06363 [facility] N VENOUS 3 CANDACE MARIA BLOOD FT FT [place] [address] [facility] PROLACTIN 3 CANDACE MARIA FT [facility] DAY CARE S[address] ADULT; ADULT ADULT PER 15 DAY CARE DAY CARE MINUTES DAY CARE S[address] ADULT; ADULT ADULT PER 15 DAY CARE DAY CARE MINUTES DAY CARE S[address] ADULT; ADULT ADULT PER 15 DAY CARE DAY CARE MINUTES DAY CARE S[address]100 [address] ADULT; ADULT ADULT PER 15 DAY CARE DAY CARE MINUTES DAY CARE S5100 [address] ADULT; ADULT ADULT PER 15 DAY CARE DAY CARE MINUTES DAY CARE S5100 THE [address] ADULT; ADULT ADULT PER 15 DAY CARE DAY CARE MINUTES EXC [address] [facility] BREAST 3 CANDACE KAII LES PREOP PLMT RAD PHYSICIAN MARKER S OPEN 1 [place] [address] SURG 3 CANDACE CANDACE PATHOLOGY FT FT CRUZ [place] GROSS&SAMANTHA ROSCOPIC EXAM MAMMOGRAP [address] HIC GID 3 CANDACE CANDACE NEEDLE FT FT PLACEMENT CRUZ [place] T BREAST RADIOLOGI 98387 RADIOLOGY [facility] 3 CHR EXAMINATI ASSOCIATE ON S OF [facility] SURGICAL SPECIMEN ANES [address] INTEG 3 CANDACE CANDACE EXTREMITI FT FT ES ANT CRUZ [place] TRUNK & PERINEUM NOS PREOP [address] PLACEMENT 3 CANDACE CANDACE FT FT LOCALIZAT CRUZ [place] ION WIRE BREAST EXC [address] CYST/ABER 3 CANDACE CANDACE RANT FT FT BREAST CRUZ [place] TISSUE OPEN 1/> LESION DAY CARE S5[address] ADULT; ADULT ADULT PER 15 DAY CARE DAY CARE MINUTES DAY CARE S5100 THE [address] ADULT; ADULT ADULT PER 15 DAY CARE DAY CARE MINUTES DAY CARE S5100 THE [address] ADULT; ADULT ADULT PER 15 DAY CARE DAY CARE MINUTES NONEMERGE A0100 [facility] TRANSP[facility] TRANSPORT ACTION ATION CO ATION; L [place] ECG [address] [facility] CANDACE PEG ECG W/LEAST PHYSICIAN 12 LDS S EKG I&R ONLY ECG [address] ROUTINE 3 CANDACE CANDACE ECG FT FT W/LEAST CRUZ [place] 12 LDS TRCG ONLY W/O I&R DAY CARE S5[address] ADULT; ADULT ADULT PER 15 DAY CARE DAY CARE MINUTES DAY CARE S[address] ADULT; ADULT ADULT PER 15 DAY CARE DAY CARE MINUTES DAY CARE S5100 THE [address] ADULT; ADULT ADULT PER 15 DAY CARE DAY CARE MINUTES DAY CARE S5100 [address] ADULT; ADULT ADULT PER 15 DAY CARE DAY CARE MINUTES DAY CARE S5100 [address] ADULT; ADULT ADULT PER 15 DAY CARE DAY CARE MINUTES NONEMERGE A0100 [facility] 3 COMMUNITY TRANSPORT TRANSPORT ACTION ATION CO ATION; L TAXI DAY CARE S5[address] ADULT; ADULT ADULT PER 15 DAY CARE DAY CARE MINUTES DAY CARE S5100 [address] ADULT; ADULT ADULT PER 15 DAY CARE DAY CARE MINUTES DAY CARE S5[address] ADULT; ADULT ADULT PER 15 DAY CARE DAY CARE MINUTES DAY CARE S5100 [address] ADULT; ADULT ADULT PER 15 DAY CARE DAY CARE MINUTES DAY CARE S5[address] ADULT; ADULT ADULT PER 15 DAY CARE DAY CARE MINUTES DAY CARE S5[address] ADULT; ADULT ADULT PER 15 DAY CARE DAY CARE MINUTES DAY CARE S5[address] ADULT; ADULT ADULT PER 15 DAY CARE DAY CARE MINUTES DAY CARE S5[address] ADULT; ADULT ADULT PER 15 DAY CARE DAY CARE MINUTES DAY CARE S5100 [address] ADULT; ADULT ADULT PER 15 DAY CARE DAY CARE MINUTES DAY CARE S5[address] ADULT; ADULT ADULT PER 15 DAY CARE DAY CARE MINUTES DAY CARE S5[address] ADULT; ADULT ADULT PER 15 DAY CARE DAY CARE MINUTES DAY CARE S5[address] ADULT; ADULT ADULT PER 15 DAY CARE DAY CARE MINUTES COMPUTER- 14657 RADIOLOGY LOVETT AIDED 3 JESSICA DETECTION ASSOCIATE DX S OF [facility] MAMMOGRAP HY DIAGNOSTI G0204 RADIOLOGY LOVETT C 3 JESSICA MAMMOGRAP ASSOCIATE HY INCL S OF [facility] CAD WHEN PERF; BILAT MAMMOGRAP 88047 [facility] HY 3 CANDACE MARIA BILATERAL FT [facility] DAY CARE S5[address] ADULT; ADULT ADULT PER 15 DAY CARE DAY CARE MINUTES DAY CARE S5100 THE THE SERVICES 3 [facility] ADULT; ADULT ADULT PER 15 DAY CARE DAY CARE MINUTES DAY CARE S5100 THE THE SERVICES 3 [facility] ADULT; ADULT ADULT PER 15 DAY CARE DAY CARE MINUTES DAY CARE S5100 THE THE SERVICES 3 [facility] ADULT; ADULT ADULT PER 15 DAY CARE DAY CARE MINUTES DAY CARE S5100 THE THE SERVICES 3 [facility] ADULT; ADULT ADULT PER 15 DAY CARE DAY CARE MINUTES DAY CARE S5100 THE THE SERVICES 3 [facility] ADULT; ADULT ADULT PER 15 DAY CARE DAY CARE MINUTES DAY CARE S5100 THE THE SERVICES 3 [facility] ADULT; ADULT ADULT PER 15 DAY CARE DAY CARE MINUTES DAY CARE S5100 THE THE SERVICES 3 [facility] ADULT; ADULT ADULT PER 15 DAY CARE DAY CARE MINUTES DAY CARE S5100 THE THE SERVICES [address] [place] [address] ADULT; ADULT ADULT PER 15 DAY CARE DAY CARE MINUTES DAY CARE S5100 THE THE SERVICES [address] [place] [address] ADULT; ADULT ADULT PER 15 DAY CARE DAY CARE MINUTES DAY CARE S5100 THE THE SERVICES [address] [place] [address] ADULT; ADULT ADULT PER 15 DAY CARE DAY CARE MINUTES DAY CARE S5100 THE THE SERVICES [address] [place] [address] ADULT; ADULT ADULT PER 15 DAY CARE DAY CARE MINUTES DAY CARE S5[address] ADULT; ADULT ADULT PER 15 DAY CARE DAY CARE MINUTES DAY CARE S5[address] ADULT; ADULT ADULT PER 15 DAY CARE DAY CARE MINUTES DAY CARE S5100 THE THE SERVICES [address] [place] [address] ADULT; ADULT ADULT PER 15 DAY CARE DAY CARE MINUTES DAY CARE S5100 THE THE SERVICES 3 [facility] ADULT; ADULT ADULT PER 15 DAY CARE DAY CARE MINUTES DAY CARE S5100 THE THE SERVICES [address] [place] [address] ADULT; ADULT ADULT PER 15 DAY CARE DAY CARE MINUTES DAY CARE S5100 THE THE SERVICES 3 [facility] ADULT; ADULT ADULT PER 15 DAY CARE DAY CARE MINUTES DAY CARE S5100 THE THE SERVICES [address] [place] [address] ADULT; ADULT ADULT PER 15 DAY CARE DAY CARE MINUTES DAY CARE S5100 THE THE SERVICES 3 [facility] ADULT; ADULT ADULT PER 15 DAY CARE DAY CARE MINUTES DAY CARE S5100 THE THE SERVICES 3 [facility] ADULT; ADULT ADULT PER 15 DAY CARE DAY CARE MINUTES DAY CARE S5100 THE THE SERVICES 3 [facility] ADULT; ADULT ADULT PER 15 DAY CARE DAY CARE MINUTES DAY CARE S5100 THE THE SERVICES 3 [facility] ADULT; ADULT ADULT PER 15 DAY CARE DAY CARE MINUTES DAY CARE S5100 THE THE SERVICES 3 [facility] ADULT; ADULT ADULT PER 15 DAY CARE DAY CARE MINUTES DAY CARE S5100 THE THE SERVICES 3 [facility] ADULT; ADULT ADULT PER 15 DAY CARE DAY CARE MINUTES DAY CARE S5100 THE THE SERVICES 3 [facility] ADULT; ADULT ADULT PER 15 DAY CARE DAY CARE MINUTES DAY CARE S5100 THE THE SERVICES 3 [facility] ADULT; ADULT ADULT PER 15 DAY CARE DAY CARE MINUTES DAY CARE S5100 THE THE SERVICES 3 [facility] ADULT; ADULT ADULT PER 15 DAY CARE DAY CARE MINUTES DAY CARE S5100 THE THE SERVICES 3 [facility] ADULT; ADULT ADULT PER 15 DAY CARE DAY CARE MINUTES DAY CARE S5100 THE THE SERVICES 3 [facility] ADULT; ADULT ADULT PER 15 DAY CARE DAY CARE MINUTES DAY CARE S5[address] ADULT; ADULT ADULT PER 15 DAY CARE DAY CARE MINUTES DAY CARE S5100 THE THE SERVICES 3 [facility] ADULT; ADULT ADULT PER 15 DAY CARE DAY CARE MINUTES DAY CARE S5100 THE THE SERVICES [address] [place] [address] ADULT; ADULT ADULT PER 15 DAY CARE DAY CARE MINUTES DAY CARE S5100 THE THE SERVICES 3 [facility] ADULT; ADULT ADULT PER 15 DAY CARE DAY CARE MINUTES DAY CARE S5100 THE THE SERVICES 3 [facility] ADULT; ADULT ADULT PER 15 DAY CARE DAY CARE MINUTES DAY CARE S5100 THE THE SERVICES [address] [place] [address] ADULT; ADULT ADULT PER 15 DAY CARE DAY CARE MINUTES DAY CARE S5100 THE THE SERVICES [address] [place] [address] ADULT; ADULT ADULT PER 15 DAY CARE DAY CARE MINUTES DAY CARE S5[address] ADULT; ADULT ADULT PER 15 DAY CARE DAY CARE MINUTES DAY CARE S5[address] ADULT; ADULT ADULT PER 15 DAY CARE DAY CARE MINUTES DAY CARE S5[address] ADULT; ADULT ADULT PER 15 DAY CARE DAY CARE MINUTES DAY CARE S5[address] ADULT; ADULT ADULT PER 15 DAY CARE DAY CARE MINUTES DAY CARE S5[address] ADULT; ADULT ADULT PER 15 DAY CARE DAY CARE MINUTES SKIN TEST [address] [facility] 3 CANDACE TUBERCULO SIS PHYSICIAN INTRADERM S AL DAY CARE S5[address] ADULT; ADULT ADULT PER 15 DAY CARE DAY CARE MINUTES DAY CARE S5[address] ADULT; ADULT ADULT PER 15 DAY CARE DAY CARE MINUTES DAY CARE S5[address] ADULT; ADULT ADULT PER 15 DAY CARE DAY CARE MINUTES GROUND A0425 VICTORIA VICTORIA MILEAGE 3 CO CO PER AMBULANCE AMBULANCE STATUTE TAXIN TAXIN MILE AMB A0427 VICTORIA VICTORIA SERVICE 3 CO CO ALS AMBULANCE AMBULANCE EMERGENCY TAXIN TAXIN TRANSPORT LEVEL 1 DAY CARE S[address] ADULT; ADULT ADULT PER 15 DAY CARE DAY CARE MINUTES DAY CARE S5[address] ADULT; ADULT ADULT PER 15 DAY CARE DAY CARE MINUTES DAY CARE S5[address] ADULT; ADULT ADULT PER 15 DAY CARE DAY CARE MINUTES DAY CARE S[address] ADULT; ADULT ADULT PER 15 DAY CARE DAY CARE MINUTES DAY CARE S5[address] ADULT; ADULT ADULT PER 15 DAY CARE DAY CARE MINUTES DAY CARE S5[address] ADULT; ADULT ADULT PER 15 DAY CARE DAY CARE MINUTES DAY CARE S5[address] ADULT; ADULT ADULT PER 15 DAY CARE DAY CARE MINUTES DAY CARE S5100 THE THE SERVICES 3 [facility] ADULT; ADULT ADULT PER 15 DAY CARE DAY CARE MINUTES DAY CARE S5100 THE THE SERVICES [address] [place] [address] ADULT; ADULT ADULT PER 15 DAY CARE DAY CARE MINUTES DAY CARE S5100 THE THE SERVICES [address] [place] [address] ADULT; ADULT ADULT PER 15 DAY CARE DAY CARE MINUTES DAY CARE S5100 THE THE SERVICES [address] [place] [address] ADULT; ADULT ADULT PER 15 DAY CARE DAY CARE MINUTES DAY CARE S5100 THE THE SERVICES 3 [facility] ADULT; ADULT ADULT PER 15 DAY CARE DAY CARE MINUTES DAY CARE S5[address] ADULT; ADULT ADULT PER 15 DAY CARE DAY CARE MINUTES DAY CARE S5[address] ADULT; ADULT ADULT PER 15 DAY CARE DAY CARE MINUTES DAY CARE S[address] ADULT; ADULT ADULT PER 15 DAY CARE DAY CARE MINUTES GROUND A0425 VICTORAI VICTORIA MILEAGE 3 CO CO PER AMBULANCE AMBULANCE STATUTE TAXIN TAXIN MILE AMB A0427 VICTORIA VICTORIA SERVICE 3 CO CO ALS AMBULANCE AMBULANCE EMERGENCY TAXIN TAXIN TRANSPORT LEVEL 1 DAY CARE S[address] ADULT; ADULT ADULT PER 15 DAY CARE DAY CARE MINUTES DAY CARE S5[address] ADULT; ADULT ADULT PER 15 DAY CARE DAY CARE MINUTES DAY CARE S5[address] ADULT; ADULT ADULT PER 15 DAY CARE DAY CARE MINUTES DAY CARE S5[address] ADULT; ADULT ADULT PER 15 DAY CARE DAY CARE MINUTES DAY CARE S5[address] ADULT; ADULT ADULT PER 15 DAY CARE DAY CARE MINUTES DAY CARE S5[address] ADULT; ADULT ADULT PER 15 DAY CARE DAY CARE MINUTES DAY CARE S5[address] ADULT; ADULT ADULT PER 15 DAY CARE DAY CARE MINUTES DAY CARE S5100 THE THE SERVICES 3 [facility] ADULT; ADULT ADULT PER 15 DAY CARE DAY CARE MINUTES COMPUTER- 88374 GNOSTICIST CROOKS AIDED 2 MAMMOGRAP MOL DETECTION HY DX SERVICES MAMMOGRAP HY DIAGNOSTI G0204 GNOSTICIST CROOKS C 2 MAMMOGRAP MOL MAMMOGRAP HY HY INCL SERVICES CAD WHEN PERF; BILAT BREAST 55986 GNOSTICIST CROOKS BIOPSY 2 MAMMOGRAP MOL VACUUM HY ASSISTED/ SERVICES ROTATING DEVICE IMG GID 52195 GNOSTICIST CROOKS PLMT MTLC 2 MAMMOGRAP MOL LOCLZJ HY CLIP PRQ SERVICES BRST BX/[place] [address] CENTRAL CENTRAL SURG 2 GNOSTICIST GNOSTICIST PATHOLOGY HOSP HOSP GROSS&[place] [address] GNOSTICIST CROOKS GUIDANCE 2 MAMMOGRAP MOL NEEDLE HY PLACEMENT SERVICES IMG S&I US BREAST 58502 GNOSTICIST CROOKS REAL 2 MAMMOGRAP MOL TIME HY W/IMAGE SERVICES DOCUMENTA TION LOCALIZE 08240 [facility] 2 ELIZABETH MICHAEL SEIZURE NEUROLOGY CABLE/RAD IO EEG/VIDEO LOCALIZE 05033 [facility] 2 ELIZABETH MICHAEL SEIZURE NEUROLOGY CABLE/RAD IO EEG/VIDEO AMB A0427 EARL EARL SERVICE 2 FAYETTE FAYETTE ALS [facility]RBAN URBAN EMERGENCY COG[facility] COGOVT TRANSPORT LEVEL [address] [facility] 2 Y Y DEV [facility] CLEARED FDA SPEC HOME USE GROUND [...] URBAN STATUTE COGOVT COGOVT MILE CT LUMBAR [address] [place] GAURAV SPINE 2 MEDICAL ANGELA W/O SERV CONTRAST FOUNDATIO MATERIAL ECG 90608 [place] LUCRETIA POOJA ROUTINE 2 MEDICAL ECG SERV W/LEAST FOUNDATIO 12 LDS W/I&R AMB A0427 EARL EARL SERVICE 2 FAYETTE FAYETTE [facility]ERGENC[facility] [place] [address] [place] AYOOB AND HEAD/BRAI 2 MEDICAL N W/[place] [address] [place] THORACIC 2 MEDICAL ANGELA SPINE W/O SERV CONTRAST FOUNDATIO MATERIAL RADIOLOGI 63211 [place] AYOOB AND C 2 MEDICAL EXAMINATI SERV ON CHE[place] [address] [place] GAURAV CERVICAL 2 MEDICAL ANGELA SPINE W/O SERV CONTRAST FOUNDATIO MATERIAL RADEX 74995 [place] AYOOB AND FOOT 2 MEDICAL COMPLETE [...] EMERGENCY [place] [address] [place] XIMENA JAM HEAD/BRAI 2 MEDICAL N W/[place] [address] [place] ESCOTT HEAD/BRAI 2 MEDICAL EDW N W/O SERV CONTRAST FOUNDATIO MATERIAL AMB A0427 EARL EARL SERVICE 2 FAYETTE FAYETTE ALS U[facility] U[facility]AN EMERGENCY COGOVT COGOVT TRANSPORT LEVEL 1 INJECTION J1200 [facility] 2 Y Y [facility] RAMINE HCL UP TO 50 MG GROUND A0425 EARL EARL MILEAGE 2 FAYETTE FAYETTE PER URBAN URBAN STATUTE COGOVT COGOVT MILE ALBUMIN 23901 [facility] 2 Y Y PLASMA/[facility] OLE BLOOD DRUG 82971 [facility] SCREEN 2 Y Y [facility] SWAPNIL PHENYTOIN FREE INJECTION J0515 [facility] MES[facility] PER 1 MG RADIOLOGI 25697 [place] NICKELS C 2 MEDICAL RYLIE EXAMINATI SERV ON FEMUR [place] [address] [place] [address] [place] CERVICAL 2 MEDICAL RYLIE SPINE W/O SERV CONTRAST FOUNDATIO MATERIAL BASIC 55761 [facility] METABOLIC 2 Y Y PANEL [facility] CALCIUM TOTAL INJECTION J1165 [facility] 2 Y Y PHENVA [facility] SODIUM PER 50 MG INJECTION J2060 [facility] 2 Y Y [facility] 2 MG DRUG 41695 [facility] SCREEN 2 Y Y [facility] SWAPNIL PHENYTOIN TOTAL BLOOD 37751 [facility] COUNT 2 Y Y COMPLETE [facility] AUTOMATED RADEX HIP 54358 [place] NICKELS 2 MEDICAL RYLIE UNILATERA SERV L FOUNDATIO COMPLETE MINIMUM 2 VIEWS INFUSION J7050 [facility] NORMAL 2 Y Y SALINE [facility] SOLUTION 250 CC RADIOLOGI 79655 [place] C 2 MEDICAL RYLIE EXAMINATI SERV ON PELVIS FOUNDATIO 1/2 VIEWS RADIOLOGI 51991 [place] NICK[place] C 2 MEDICAL RYLIE EXAMINATI SERV ON TIBIA FOUNDATIO & FIBULA 2 VIEWS GROUND A0425 EARL EARL MILEAGE 2 FAYETTE FAYETTE PER URBAN URBAN STATUTE COGOVT COGOVT MILE AMB A0427 EARL EARL SERVICE 2 FAYETTE FAYETTE ALS URBAN URBAN EMERGENCY COGOVT COGOVT TRANSPORT LEVEL 1 RADIOLOGI 43998 [place] NICKEL[place] C 2 MEDICAL RYLIE EXAMINATI SERV ON CHEST FOUNDATIO [place] RADIOLOGI 90024 [place]ICK[place] C 2 MEDICAL RYLIE EXAMINATI SERV ON KNEE 3 [place] [address] [facility] INFUSION 2 Y Y THERAPY/P [facility] ROPHYLAXI S /DX 1ST TO 1 HR THERAPEUT 42453 [facility] IC 2 Y Y INJECTION [facility] IV PUSH EACH NEW DRUG AMB A0427 EARL EARL SERVICE 2 FAYETTE FAYETTE ALS URBAN URBAN EMERGENCY COGOVT COGOVT TRANSPORT LEVEL 1 RADIOLOGI 19700 [place] C EXAM 2 MEDICAL RYLIE CHEST 2 SERV VIEWS FOUNDATIO FRONTAL&L ATERAL GROUND A0425 EARL EARL MILEAGE 2 FAYETTE FAYETTE PER URBAN URBAN STATUTE [facility] [address] [place] FEE [facility] DISCHARGE 2 MEDICAL DAY SERV MANAGEMEN FOUNDATIO T 30 MIN/< LOCALIZE 75445 [place] CEREBRAL 2 MEDICAL JOSE MARTIN SEIZURE SERV CABLE/RAD FOUNDATIO IO EEG/VIDEO LOCALIZE 76789 [place] CEREBRAL 2 MEDICAL JOSE MARTIN SEIZURE SERV CABLE/RAD FOUNDATIO IO EEG/VIDEO SBSQ 52143 [place] [facility] 2 MEDICAL CARE/DAY SERV 25 FOUNDATIO MINUTES INITIAL 05711 [facility] 2 MEDICAL CARE/DAY SERV 70 FOUNDATIO MINUTES GROUND A0425 EARL EARL MILEAGE 2 FAYETTE FAYETTE PER URBAN URBAN STATUTE COGOVT COGOVT MILE AMB A0427 EARL EARL SERVICE 2 FAYETTE FAYETTE ALS URBAN URBAN EMERGENCY [place] [address] [place] HEAD/BRAI 2 MEDICAL RYLIE N W/[place] [address] [place] CERVICAL 2 MEDICAL RYLIE SPINE W/O SERV CONTRAST FOUNDATIO MATERIAL AMB A0427 [facility] R FIRE R FIRE [facility] EMS EMERGENCY TRANSPORT LEVEL 1 ECG 16595 GEILE LOBO GEILE LOBO ROUTINE 1 ECG W/LEAST 12 LDS I&R ONLY GROUND A0425 [facility] MI[facility] 1 R FIRE R FIRE PER EMS EMS STATUTE [facility] [address] [place] [facility] 1 MEDICAL HENRY DAY SERV MANAGEMEN FOUNDATIO T 30 MIN/< LOCALIZE 19576 [place] BRIANNA CEREBRAL 1 MEDICAL CHINMAY SEIZURE SERV CABLE/RAD FOUNDATIO IO EEG/VIDEO INITIAL 88948 [facility] 1 MEDICAL HENRY CARE/DAY SERV 50 FOUNDATIO MINUTES GROUND A0425 [facility] 1 R FIRE R FIRE PER EMS EMS STATUTE MILE [facility] A0422 [facility] OXYGEN&O2 1 R FIRE R FIRE SUPPLIES EMS EMS LIFE SUSTAININ G SITUATION ELECTROEN 89420 [place] CEPHALOGR 1 MEDICAL JOSE MARTIN AM W/REC SERV AWAKE&ASL FOUNDATIO EEP MRI BRAIN 85341 [place] CENT[place] BRAIN 1 MEDICAL HARISH STEM W/O SERV W/CONTRAS FOUNDATIO T MATERIAL AMB A0427 [facility] SERVICE 1 R FIRE R FIRE ALS EMS EMS EMERGENCY TRANSPORT LEVEL 1 CRITICAL 93878 [facility] 1 EMERGENCY ILL/INJUR SERVICES ED PATIENT INIT 30-74 MIN AMB A0422 [facility] OXYGEN&O2 1 R FIRE R FIRE SUPPLIES EMS EMS LIFE SUSTAININ G SITUATION GROUND A0425 [facility]AGE 1 R FIRE R FIRE PER EMS EMS STATUTE MILE GROUND A0425 [facility] MILEAGE 1 R FIRE R FIRE PER EMS EMS STATUTE MILE AMB A0422 [facility] OXYGEN&O2 1 R FIRE R FIRE SUPPLIES EMS EMS LIFE SUSTAININ G SITUATION ECG 03573 LEONEL SERAFIN ROUTINE 1 EMERGENCY AKM ECG SERVICES W/LEAST 12 LDS I&R ONLY AMB A0427 [facility] SERVICE 1 R FIRE R FIRE ALS EMS EMS EMERGENCY TRANSPORT LEVEL 1 RADIOLOGI 99483 [facility] [place] C 1 RADIOLOGY OSKAR EXAMINATI ON CHEST SINGLE VIEW FRONTAL EXC B9 67513 DK SHAKEEL LESION 1 MEDICAL CHLOE MRGN XCP SERV SK TG FOUNDATIO S/N/H/F/G 1.1-2.0CM LEVEL III 28427 [facility] TANOUS SURG 1 EDW PATHOLOGY PATHOLOGY ASSOCIAT GROSS&SAMANTHA ROSCOPIC EXAM ANES 09931 [facility] BOLDEN GAV INTEG 1 LTH MUSC & ANESTHESI NRV HEAD A PSC NECK&POST ERIOR TRUNK BASIC 93155 ALBERTA PINZON METABOLIC 1 REGIONAL REGIONAL PANEL MEDICAL MEDICAL CALCIUM CENTE CENTE TOTAL ECG 12980 AL[facility]ERTA PINZON ROUTINE 1 REGIONAL REGIONAL ECG MEDICAL MEDICAL W/LEAST CENTE CENTE 12 LDS TRCG ONLY W/O I&R COLLECTIO 53540 ALBERTA PINZON N VENOUS 1 REGIONAL REGIONAL BLOOD MEDICAL MEDICAL VENIPUNCT CENTE CENTE URE ALVEOLOPL 67887 ALVARADO I BAUTISTA III ASTY EACH 1 BAUTISTA III LYUBOV QUADRANT PSC N0 3 SPECIFY DEEP D9220 ALVARADO I BAUTISTA III SEDATION/ 1 BAUTISTA III LYUBOV GENERAL PSC N0 3 ANESTHESI A-1ST 30 MINUTES ORTHOPANT 47020 ALVARADO I BAUTISTA III OGRAM 1 BAUTISTA III LYUBOV PSC N0 3 ECG 17402 RAMONA YUN YUN RAMONA ROUTINE 1 MD ECG CONSULTIN W/LEAST G SRV 12 LDS I&R ONLY INITIAL 88991 CARTER MACHADO JUVENTINO INPATIENT 1 CONSULT NEW/ESTAB [place] [address] [place] [address] [facility] [place] SCALF MARII HEAD/BRAI 1 RADIOLOGY N W/O CONTRAST MATERIAL LIPID 12855 [facility] UNIVERS PANEL 1 Y Y [facility] DRUG 49215 [facility] SCREEN 1 Y Y QUANTITAT [facility] [place] [address] [facility] FERRITIN 1 Y Y [facility] IRON 82070 [facility] BINDING 1 Y Y CAPACITY [facility] BLOOD 45362 [facility] COUNT 1 Y Y COMPLETE [facility] AUTOMATED COLLECTIO 02354 [facility] N VENOUS 1 Y Y BLOOD [facility] VENIPUNCT URE CHROMATOG 75544 [facility] HUMBERTO 1 Y Y [facility] COLUMN [place] [address] [facility] THYROID 1 Y [facility] TSH COMPREHEN 99671 [facility] SIVE 1 Y Y METABOLIC [facility] [place] [address] [facility] [place] ZHANG BAR HEAD/BRAI 1 RADIOLOGY N W/[place] [address] ALBERTA ALBERTA ABDOMEN 1 REGIONAL REGIONAL W/O & MEDICAL MEDICAL W/CONTRAS CENTE CENTE T MATERIAL Encounters Encounter Start End Date Code Location Performer Type Date EMERGENCY 53029 BRIAN JUAN DEPT 7 7 PHYSIC[facility] SE[facility]& THREAT [facility] EMERGENCY 76278 BRIAN JUAN DEPT 7 7 PHYSICIAN U VISIT S, PLLC HIGH SEVERITY& THREAT [facility] EMERGENCY 06137 BRIAN GRANGER 7 7 PHYSICIAN JR DEPARTMEN S, [facility] T VISIT MODERATE [facility]VERITY [facility]OSPITAL KE - 7 7 [facility] OUTPATIEN INC T EMERGENCY 57097 KE 7 7 [facility] DEPARTMEN INC T VISIT LOW/MODER SEVERITY HOSPITAL KE - 7 7 [facility] OUTPATIEN INC T EMERGENCY 46810 KE 7 7 MEM [facility] DEPARTMEN INC T VISIT MODERATE SEVERITY EMERGENCY 39528 BRIAN OLMEDO DEPT 7 7 PHYSICIAN VISIT S, [facility] HIGH SEVERITY& THREAT FUN EMERGENCY 74256 BRIAN PEOPLES DEPT 7 7 PHYSICIAN VISIT S, PLLC HIGH [facility]VERITY& THREAT [facility] KE - 7 7 [facility] KE - 7 7 [facility] OUTPATIEN [facility] T EMERGENCY 31646 KE 7 7 [facility] T VISIT HIGH/URGE NT SEVERITY HOSPITAL KE - 7 7 [facility] OFFICE 80923 [facility] 7 7 PHYSICIAN T VISIT S GROUP 25 MINUTES OFFICE 06541 [facility] 7 7 PHYSICIAN T NEW 20 S GROUP MINUTES EMERGENCY 22264 BRIAN OLMEDO 7 7 PHYSICIAN DEPARTMEN S, [facility] T VISIT HIGH/URGE NT SEVERITY EMERGENCY 77081 BRIAN FIELDS DEPT 6 6 PHYSICIAN VISIT S, [facility] HIGH SEVERITY& THREAT [facility] UNIVERSIT - 6 6 Y [facility] T OFFICE 41414 [facility] 6 6 Y T VISIT 5 HOSPITAL MINUTES EMERGENCY 76741 BRIAN JUAN 6 6 PHYSICIAN U BEN DEPARTMEN S, PLLC T VISIT MODERATE SEVERITY EMERGENCY 93320 KE 6 [address] [facility] LOW/MODER SEVERITY EMERGENCY 96524 BRIAN BUCIO 6 [address] [facility] T VISIT MODERATE SEVERITY HOSPITAL KE - 6 6 [facility] OUTPATIEN [facility] T EMERGENCY 61534 BRIAN FIELDS 6 6 PHYSICIAN [facility] DEPART[facility] T VISIT LOW/MODER SEVERITY EMERGENCY 02788 BRIAN FIELDS DEPT 6 6 PHYSICIAN SAMANTHA VISIT S, PLLC HIGH SEVERITY& THREAT [facility] EMERGENCY 75097 BRIAN FIELDS DEPT 6 6 PHYSICIAN [facility] HIGH SEVERITY& THREAT [facility] EMERGENCY 05499 BRIAN FIELDS DEPT 6 6 PHYSICIAN [facility]IS[facility] HIGH SEVERITY& THREAT [facility] EMERGENCY 65989 BRIAN FIELDS DEPT 6 6 PHYSICIAN [facility]ISIT [facility] HIGH SEVERITY& THREAT [facility] EMERGENCY 05847 KE 6 6 [facility] DEPARTMEN INC T VISIT MODERATE SEVERITY HOSPITAL KE - 6 6 [facility] OUTPATIEN INC T EMERGENCY 03663 BRIAN FIELDS DEPT 6 6 PHYSICIAN SAAMNTHA VISIT S, PLLC HIGH SEVERITY& THREAT [facility] EMERGENCY 90692 BRIAN FIELDS 6 6 PHYSICIAN [facility] T VISIT MODERATE SEVERITY EMERGENCY 57262 BRIAN JUAN 6 6 PHYSICIAN U [facility] DEPART[facility] T VISIT MODERATE SEVERITY HOSPITAL KE - 6 6 [facility] T [facility] KE - 6 6 [facility] OUT[facility]EN INC T EMERGENCY 74523 BRIAN PEOPLES 6 6 PHYSICIAN MEGHNA DEPARTMEN [facility] T VISIT MODERATE SEVERITY HOSPITAL KE - 6 6 [facility] OUTPATIEN INC T EMERGENCY 02099 KE 6 6 [facility] DEPARTMEN INC T VISIT LOW/MODER SEVERITY EMERGENCY 67028 BRIAN FIELDS 6 6 PHYSICIAN [facility] T VISIT MODERATE SEVERITY EMERGENCY 94844 BRIAN FIELDS DEPT 6 6 PHYSICIAN SAM[facility]THA VISIT S, PLLC HIGH SEVERITY& THREAT [facility]UNCJ EMERGENCY 53220 BRIAN FIELDS DEPT 6 6 PHYSICIAN SAM[facility]THA VISIT S, PLL[facility] HIGH SEVERITY& THREAT FUNCJ EMERGENCY 04254 KE 6 6 [facility] DEPARTMEN INC T VISIT LIMITED/M [facility] KE - 6 6 [facility] OUTPATIEN INC T EMERGENCY 38501 BRIAN FIELDS DEPT 6 6 PHYSICIAN SAM[facility]THA VISIT S, PLLC HIGH SEVERITY& THREAT FUNCJ EMERGENCY 33427 BRIAN FIELDS 6 6 PHYSICIAN [facility] DEPART[facility] T VISIT MODERATE SEVERITY EMERGENCY 60030 BRAIN FIELDS 6 6 PHYSICIAN [facility]PART[facility] T VISIT HIGH/URGE NT SEVERITY EMERGENCY 63731 BRIAN FIELDS DEPT 6 6 PHYSICIAN [facility] HIGH SEVERITY& THREAT FUNCJ EMERGENCY 97168 BRIAN FIELDS DEPT 6 6 PHYSICIAN SAM[facility]THA VISIT S, PLLC HIGH SEVERITY& THREAT FUNCJ EMERGENCY 21753 BRIAN FIELDS 6 6 PHYSICIAN [facility]PART[facility] T VISIT HIGH/URGE NT SEVERITY HOSPITAL KE - 6 6 [facility] [facility] OUT[facility]EN INC T EMERGENCY [id number] KE 6 6 [facility] DEPARTMEN INC T VISIT LIMITED/M INOR PROB EMERGENCY 83637 BRIAN FIELDS 6 6 PHYSICIAN SAMANTHA DEPARTMEN S, PLLC T VISIT MODERATE SEVERITY EMERGENCY 17650 BRIAN JUAN DEPT 6 6 PHYSICIAN U BEN VISIT S, PLLC HIGH SEVERITY& THREAT FUNCJ EMERGENCY 99460 KE 6 6 [facility] DEPARTMEN INC T VISIT LOW/MODER SEVERITY EMERGENCY 30961 BRIAN REES 6 6 PHYSICIAN DEPARTMEN S, PLLC T VISIT HIGH/URGE NT SEVERITY HOSPITAL KE - 6 6 [facility] OUTPATIEN [facility] EMERGENCY 35621 KE 6 6 [facility] T VISIT LOW/MODER SEVERITY EMERGENCY 90991 BRIAN PERRY [facility] 6 6 PHYSICIAN [facility], [facility] T VISIT HIGH/URGE NT SEVERITY HOSPITAL KE - 6 6 [facility] EMERGENCY 55677 BRIAN RAMOS SYLVIA 6 6 PHYSICIAN [facility] S, [facility] T VISIT HIGH/URGE NT SEVERITY EMERGENCY 26882 KE 6 6 [facility] T VISIT LOW/MODER SEVERITY HOSPITAL KE - 6 6 [facility] EMERGENCY 39716 KE 6 6 [facility] T VISIT HIGH/URGE NT SEVERITY HOSPITAL KE - 6 6 [facility] OUTPATIEN [facility] EM[facility] 25069 BRIAN JUAN 6 6 PHYSICIAN U BEN [facility], [facility] T VISIT HIGH/URGE NT SEVERITY HOSPITAL KE - 6 6 [facility] EMERGENCY 67471 KE 6 6 [facility] T VISIT LOW/MODER SEVERITY EMERGENCY 64101 KE 6 6 [facility] T VISIT LOW/MODER SEVERITY EMERGENCY 46662 BRIAN PERRY MOH 6 6 PHYSICIAN [facility], [facility] T VISIT HIGH/URGE NT SEVERITY HOSPITAL KE - 6 6 [facility] EMERGENCY 21138 BRIAN BUCIO DEPT 5 5 PHYSICIAN FOR VISIT S, [facility] HIGH SEVERITY& THREAT FUNCJ EMERGENCY 15164 BRIAN LEWIS JR 5 5 PHYSICIAN [facility] VIS[facility] HIGH/URGE NT SEVERITY EMERGENCY 78140 KE 5 5 [facility] T VISIT HIGH/URGE NT SEVERITY HOSPITAL KE - 5 5 [facility] OUTPATIEN INC T OFFICE 23125 [facility] 5 5 N ION NEUROLOGY NEW/ESTAB PATIENT 60 MIN HOSPITAL ANISHNORWALK - 5 5 N OUTPATIEN COMM[facility] KE - 5 5 [facility] OUTPATIEN [facility] EMERGENCY 53862 BRIAN JUAN 5 5 PHYSICIAN [place] [facility], [facility] T VISIT HIGH/URGE NT SEVERITY HOSPITAL KE - 5 5 [facility] OUTPATIEN [facility] EMERGENCY 62797 BRIAN REES 5 5 [facility] T VISIT HIGH/URGE NT SEVERITY OFFICE 07885 [facility] OUTPATIHAWA 5 5 PHYSICIAN RUSLAN Bhatti NEW 45 S GROUP MINUTES EMERGENCY 98069 BRIAN JUAN 5 5 PHYSICIAN [place] [facility], PLL[facility] T VISIT HIGH/URGE NT SEVERITY OFFICE 60296 [facility] OUTPATI[facility] 5 5 [place] T VISIT ORTHOPAED 15 [facility] MINUTES EMERGENCY 46354 BRIAN JUAN 5 5 PHYSICIAN U [facility], [facility] T VISIT LOW/MODER SEVERITY EMERGENCY 15200 BRIAN ABDI 5 5 PHYSICIAN LOREN [facility] T VISIT HIGH/URGE NT SEVERITY OFFICE 32797 [facility] OUT[facility] 5 5 [place] T VISIT ORTHOPAED 15 [facility] MINUTES OFFICE 32008 [facility] TAFOYA BINTA 5 5 PHYSICIAN TARAN Bhatti NEW 45 S GROUP MINUTES OFFICE 73494 [facility] TRA OUTPATIEN 5 5 [place] T NEW 30 ORTHOPAED MINUTES [facility] HOME [place]ST 58012 MD2U LOEBKER EST PT 5 5 [facility] SIGNIF NEW PROB 60 MINS HOME VST 48629 MD2U LOEBKER EST PT 5 5 [place] [facility] SIGNIF NEW PROB 60 MINS OFFICE 72111 [facility] HELLEN OUTPATIEN 5 5 [facility] T VISIT MED CTR [address] - 5 5 [facility] OUTPATIEN MED CTR T [employer] [facility] HOME VST 99578 MD2U LOEBKER EST PT 5 5 [facility] SIGNIF NEW PROB 60 MINS OFFICE 01895 [facility] LIL OUTPATIEN 5 5 [facility] T NEW 30 MINUTES PHYSICIAN S HOME VST 85619 MD2U LOEBKER EST PT 5 5 [place] [facility] SIGNIF NEW PROB 60 MINS HOME VST 78916 MD2U LOEBKER EST PT 5 5 [place] [facility] SIGNIF NEW PROB 60 MINS HOME VST 02378 MD2U LOEBKER EST PT 5 5 [place] [facility] SIGNIF NEW PROB 60 MINS HOME VST 40817 MD2U LOEBKER EST PT 4 4 [place] [facility] SIGNIF NEW PROB 60 MINS HOME VST 52354 MD2U LOEBKER EST PT 4 4 [place] [facility] SIGNIF NEW PROB 60 MINS OFFICE 77657 [facility] OUTPATIEN 4 4 [facility] HEI T VISIT 15 PHYSICIAN MINUTES S EMERGENCY 14887 EMERGENCY DAVREN DEPT 4 4 CARE ANNETTE VISIT PHYS HIGH NORTHERN SEVERITY& THREAT FUNCJ HOME VST 18057 MD2U MANISHAEBKER EST PT 4 4 SRINATH [facility] SIGNIF NEW PROB 60 MINS EMERGENCY 90404 EMERGENCY [place] 4 4 CARE LOREN DEPARTMEN PHYS T VISIT [facility] HIGH/URGE NT SEVERITY HOME VST 99910 MD2U LOEBKER EST PT 4 4 SRINATH [facility] SIGNIF NEW PROB [address] - 4 [address] [facility] [address] [facility] EMERGENCY 20848 EMERGENCY ELLEMAN 4 4 CARE SAMANTHA DEPARTMEN PHYS T VISIT [facility] HIGH/URGE NT SEVERITY OFFICE 55260 [facility] OUTPATIEN 4 4 PLASTIC T [facility] 30 SURGERY [facility] ST - 4 4 [facility] OUTPATIEN [facility] ST - 4 4 [facility] OUTPATIEN [facility] OFFICE 97991 ST AN OUTPATIEN 4 4 [facility] TILLMAN CHLOE T VISIT 15 PHYSICIAN MINUTES [facility] - 4 4 [facility] OUTPATIEN MED CTR T [employer] OFFICE [address] ST AN OUTPATIEN 4 4 [facility] PRIMO CHLOE T VISIT 25 PHYSICIAN MINUTES S EMERGENCY 60649 EMERGENCY DEPT 4 4 CARE VISIT PHYS HIGH NORTHERN SEVERITY& THREAT [facility] ST - 4 [address] [place] [address] [facility] OFFICE 65714 ST AN OUTPATIEN 4 4 [facility] PRIMO CHLOE T VISIT 25 PHYSICIAN MINUTES S EMERGENCY 84[address] ST VALERI KEYSHAWN 3 3 [facility] DEPARTMEN MED CTR T VISIT MODERATE SEVERITY OFFICE [address]9 ST [facility] OUTPATIEN 3 3 [facility] HEI T VISIT 15 PHYSICIAN MINUTES [facility] ST - 3 3 [facility] OUTPATIEN FT T CRUZ OFFICE 74750 ST AN OUTPATIEN 3 3 [facility] PRIMO CHLOE T VISIT 15 PHYSICIAN MINUTES S EMERGENCY 32687 EMERGENCY DAVREN 3 3 CARE ANNETTE DEPARTMEN PHYS T VISIT [facility] HIGH/URGE NT SEVERITY EMERGENCY 26389 EMERGENCY [place] DEPT 3 3 CARE LOREN VISIT PHYS HIGH [facility]THER[facility] SEVERITY& THREAT FUNCJ OFFICE 56666 [facility] OUTPATIEN 3 3 [facility] ER MAT T NEW 20 ORTHOPAE MINUTES EMERGENCY 56126 EMERGENCY DORY 3 3 CARE SANGEETA DEPARTMEN PHYS T VISIT [facility] HIGH/URGE NT SEVERITY OFFICE 86498 ST AN OUTPATIEN 3 3 [facility] PRIMO CHLOE T VISIT 15 PHYSICIAN MINUTES S Emergency AUGUST Ruiz MD (ER) 3 16:45 3 18:38 [facility] EMERGENCY 57903 LEONEL COBOS DEPT 3 3 EMERGENCY VISIT SERVICES HIGH SEVERITY& THREAT FUNCJ OFFICE 74285 ST AN OUTPATIEN 3 3 [facility] PRIMO CHLOE T VISIT 25 PHYSICIAN MINUTES S OFFICE [address] [facility] SCHACK OUTPATIEN 3 3 [facility] LOREN T VISIT 15 PHYSICIAN MINUTES S OFFICE 54435 ST AN OUTPATIEN 3 3 [facility] PRIMO CHLOE T VISIT 25 PHYSICIAN MINUTES S Emergency AUGUST Ruiz MD (ER) 3 12:50 3 19:[address] [facility] KE - 3 3 [facility] OUTPATIEN INC T EMERGENCY 37922 KE 3 3 [facility] DEPARTMEN INC T VISIT MODERATE SEVERITY EMERGENCY 61694 LEONEL COBOS DEPT 3 3 EMERGENCY VISIT SERVICES HIGH SEVERITY& THREAT FUNCJ Emergency AUGUST Christie MD (ER) 3 17:15 3 19:13 [facility] EMERGENCY 99393 LEONEL VERDUZCO DEPT 3 3 EMERGENCY VISIT SERVICES HIGH SEVERITY& THREAT FUN OFFICE 74368 ST OUTPATIEN 3 3 [facility] T VISIT FT 10 [facility] ST - 3 3 [facility]PAT[facility]EN [facility] - 3 3 [facility] OUTPATIEN [facility] OFFICE 875[address] [facility] 3 3 [facility] T VISIT 15 PHYSICIAN MINUTES [facility] ST - 3 3 [facility] OUTPATIEN [facility] OFFICE [address] [facility] 3 3 [facility] HEI T NEW 45 MINUTES [address]YSICIAN [facility] ST - 3 [address] [facility] OFF[facility] [address] [facility] OUTPATIEN 3 3 [facility] T VISIT 15 PHYSICIAN MINUTES S OFFICE [facility] [facility] 3 [facility] T VISIT 25 PHYSICIAN MINUTES S OFFICE [address] [facility] OUTPATIEN 3 3 [facility] T VISIT 25 PHYSICIAN MINUTES S EMERGENCY 69457 LEONEL FIELDS DEPT 3 3 EMERGENCY SAMANTHA VISIT SERVICES HIGH SEVERITY& THREAT [facility]AL - 2 2 [facility] - 2 2 [facility] EMERG[facility] 88027 UNIVERSIT 2 2 [facility] T VISIT LOW/MODER SEVERITY EMERGENCY 76474 LEONEL [facility] 2 2 EMERGENCY [facility] SERVICES T VISIT MODERATE SEVERITY OFFICE 78585 [facility] OUTPATIEN 2 2 BEN BEN T VISIT 25 MINUTES HOSPITAL [facility]ERSIT - 2 2 [facility] 41186 UNIVERSIT 2 2 Y [facility] T VISIT MODERATE SEVERITY EMERGENCY 55002 DK FRIAS 2 2 MEDICAL DEPARTMEN SERV T VISIT FOUNDATIO HIGH/URGE NT SEVERITY OFFICE 63770 [facility] 2 2 ELIZABETH LONDONOU ION NEUROLOGY NEW/ESTAB PATIENT 40 MIN EMERGENCY 09584 DK PEREZ 2 2 MEDICAL SET DEPARTMEN SERV T VISIT FOUNDATIO HIGH/URGE NT SEVERITY EMERGENCY 69567 DK RENO 2 2 MEDICAL RYLIE DEPARTMEN SERV T VISIT FOUNDATIO HIGH/URGE NT SEVERITY OFFICE 72967 [facility] OUTPATIEN 2 2 BEN BEN T VISIT 15 MINUTES OFFICE 65271 [facility] OUTPATIEN 2 2 BEN BEN T NEW 45 MINUTES EMERGENCY 70304 DK REYES 2 2 MEDICAL I ALI DEPARTMEN SERV T VISIT FOUNDATIO HIGH/URGE NT SEVERITY EMERGENCY 36962 DK RENO 2 2 MEDICAL RYLIE DEPARTMEN SERV T VISIT FOUNDATIO HIGH/URGE NT SEVERITY [facility]OSPITAL [facility] - [facility] 01763 [facility] 2 2 [place] [facility] NEW/ESTAB PSC PATIENT 60 MIN EMERGENCY 57945 GEILE LOBO GEILE LOBO DEPT 1 1 VISIT HIGH SEVERITY& THREAT FUNCJ EMERGENCY 34527 LEONEL DEMPSEY 1 1 EMERGENCY SCO DEPARTMEN SERVICES T VISIT MODERATE SEVERITY EMERGENCY 65026 DK REYES DEPT 1 1 MEDICAL I ALI VISIT SERV HIGH FOUNDATIO SEVERITY& THREAT FUNCJ OFFICE 08429 [facility] 1 1 I JOSE CRUZ I JOSE CRUZ T NEW 45 MINUTES EMERGENCY 82424 LEONEL BETANCOURT DEPT 1 1 EMERGENCY [place] VISIT SERVICES HIGH SEVERITY& THREAT [facility] - 1 1 [facility] OFFICE [address]85 [place] SHAKEEL CONSULTAT 1 1 MEDICAL CHLOE ION SERV NEW/ESTAB FOUNDATIO PATIENT 60 MIN OFFICE 20667 [facility] JOBY SUE [facility] 1 1 MN FAMILY ELL T VISIT MEDICINE 25 P MINUTES OFFICE 41039 ALVAR[facility]O BAUTISTA III CONSULTAT 1 1 BAUTISTA III LYUBOV ION PSC N0 3 NEW/ESTAB PATIENT 30 MIN EMERGENCY 87594 LEONEL LOBO DEPT 1 1 EMERGENCY VISIT SERVICES HIGH SEVERITY& THREAT [facility] OFF[facility] 00408 [facility] MILAGRO BELCHER [facility] 1 1 MN FAMILY T VISIT MEDICINE 15 P MINUTES HOSPITAL UNIVERSIT - 1 1 [facility] - 1 1 [facility]
--- OUTSIDE RECORDS SUMMARY | 2017-06-27 21:12 | External Medical Summary Rpt ---
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 DENTAL 06-03-2011 [facility] CARIES III PSC N0 3 4659 ACUTE URIS 03-31-[address] [facility] UNSPECIFIED MEDICINE P SITE 7804 DIZZINESS 02-24-2011 [facility] [place] AND RADIOLOGY GIDDINESS 7904 NONSPEC 02-05-2011 [facility] TRANSAMINAS E/LDH Medications Na ND Rx Da Fi Fi [...] -2 -0 0. IN 35 YM ti MN 70 2- 4- 00 IC 07 AN [...] 20 00 IN 75 17 17 PH MT 0 AR CH 40 MA AE 0 [...] 0. IN 03 HF ti RA 20 IC 29 AQ ve LI 01 20 20 0 NE 30 17 17 PH MU 5 AR [place] HC MA MM L CY AD 10 0 LL MG C TA BL ET BU 00 08 09 1 60 30 CL 44 Ac SP 11 -2 -1 0. IN 03 HF ti IR 51 IC 27 AQ ve ON 69 20 20 0 E 10 17 17 PH MU HC 3 AR [place] L MA MM 10 CY AD MG LL C TA BL ET OL 43 08 09 1 30 30 CL 44 Ac AN 59 -2 -1 0. IN 03 HF ti ZA 80 IC 31 AQ ve PI 16 20 20 0 NE 43 17 17 PH MU 5 0 AR [place] MA MM MG CY AD TA LL BL C ET LO 00 07 09 11 60 [...] IN 58 YM ti RA 20 IC 27 AN ve MA 11 20 [...] 0. IN 58 YM ti IC 43 - 9- 00 IC 36 AN ve 27 20 20 0 ON 09 17 17 PH EU E 9 AR GO MN MA ND OP CY A F 50 LL C MC G SP RA Y ME 67 04 09 10 60 30 CL 42 FR Ac TF 87 -2 -1 0. IN 94 YM ti OR 70 7- 9- 00 IC 74 AN ve MT 56 20 20 0 N 11 17 [...] LL MG C TA BL ET OX 68 07 09 11 12 30 CL 43 FR Ac CA 46 -0 -1 00 IN 58 YM ti RB 20 5- 9- .0 IC 33 AN ve AZ 13 20 20 00 EP 80 17 17 PH EU IN 1 AR GO E MA ND 30 CY A 0 F MG LL C TA BL ET SY 00 07 [...] LL G C IN [place] LE R MN 59 07 09 11 85 25 CL 43 FR Ac OA 31 -0 -1 .0 IN 58 YM ti IR 00 5- 9- 00 IC 30 AN ve 57 20 20 HF 92 17 17 PH EU A 2 AR GO 90 MA ND CY A MC F G LL IN C [place] LE R CA 58 05 09 11 60 30 [...] IN 23 ON ti TI 10 0- 9- 00 IC 91 E ve RA 11 20 20 0 DI CE 50 17 17 PH XI TA 6 AR E M MA D 1, CY 00 0 LL MG C TA BL ET GE 42 07 09 11 60 30 CL 43 FR Ac MF 80 -0 -1 0. IN 58 YM ti IB 60 5- 9- 00 IC 35 AN ve RO 26 20 20 0 ZI 00 17 17 PH EU L 5 AR GO 60 MA ND 0 CY A MG F LL TA C BL ET CE 69 09 09 0 20 10 CL 44 FR Ac PH 54 -0 -0 0. IN 18 YM ti AL 30 7- 7- 00 IC 58 AN ve EX 10 20 20 0 IN 25 17 17 PH EU 0 AR GO 50 MA ND 0 CY A MG F LL CA C PS UL E ME 57 09 09 0 60 30 CL 44 FR Ac TO 66 -0 -0 0. IN 18 ti MN 40 7- 7- 00 IC 57 AN ve OL 47 20 20 0 OL 75 17 17 PH EU 8 AR GO TA MA ND RT CY A RA F TE LL C 50 MG TA B ON 53 09 09 5 10 33 CL 44 FR Ac ET 88 -0 -0 00 IN 15 ti OU 50 6- 6- .0 IC 94 AN ve CH 14 20 20 00 30 17 17 PH EU DE 1 AR GO LI MA ND CA CY A F 33 LL G C LA NC ET S ON 53 09 09 5 10 33 CL 44 FR Ac ET 88 -0 -0 00 IN 15 ti OU 50 6- 6- .0 IC 95 AN ve CH 24 20 20 00 51 17 17 PH EU UL 0 AR GO TR MA ND A CY A TE F ST LL C ST RI PS CL 00 08 09 1 60 30 CL 44 Ac ON 22 -2 -0 0. IN 03 HF ti AZ 83 3- 6- 00 IC 28 AQ ve EP 00 20 20 0 AM 31 17 17 PH MU 1 AR [place] 0. MA MM 5 CY AD MG LL TA C BL ET GE 60 09 09 0 50 10 CL 44 FU Ac NT 75 -0 -0 .0 IN 14 ti AM 80 2- 5- 00 IC 15 ER ve IC 18 20 20 , IN 80 17 17 PH JR 3 5 AR MA EL MG CY ZE /M R L LL T EY C E DR OP S AM 66 09 09 0 20 10 CL 44 FU Ac OX 68 -0 -0 0. IN 14 ti -C 51 2- 5- 00 IC [...] 20 00 IN 40 17 17 PH MT 1 AR CH 40 MA AE 0 [...] 1 MG LL C TA BL ET LE 13 05 08 11 60 30 [...] AD MG LL C TA BL ET MN 59 07 08 11 85 25 CL [...] F LL TA C BL ET OM 60 07 08 11 30 30 [...] 10 LL 0 C MG CA P TR 00 07 08 11 30 30 CL 43 FR Ac IA 59 -0 -2 0. IN 58 YM ti MT 10 5- 1 IC 24 AN ve ER 42 20 20 0 EN 40 17 17 PH EU E- 5 AR GO HC MA ND TZ CY A F 37 LL .5 C -2 5 MG TB MO 29 07 08 11 30 30 CL 43 FR Ac NT 30 -0 -2 0. IN 58 YM ti EL 00 IC 34 AN ve UK 22 [...] 17 PH EU E 6 AR GO MN MA ND OP CY A F 50 [...] LL G C IN [place] LE R ME 53 04 08 10 60 30 CL 42 FR Ac TF 74 -2 -2 0. IN 94 YM ti OR 60 7- 1- 00 IC 74 AN ve MT 21 20 20 0 N 81 17 17 PH EU HC 0 AR GO L MA ND 50 CY A 0 F MG LL C TA BL ET ME 57 04 08 10 60 30 CL 42 FR Ac TO 23 -2 -2 0. IN 94 YM ti MN 70 7- 1- 00 IC 79 AN [...] LL [address] ET OX 68 07 08 11 12 30 CL 43 FR Ac CA 46 -0 -2 00 IN 58 YM ti RB 20 5- 1- .0 IC 33 AN ve AZ 13 20 20 00 EP 80 17 17 PH EU IN 1 AR GO E MA ND 30 CY A 0 F MG LL C TA BL ET CA 58 05 08 11 [address] Ac RA 91 -3 -2 00 IN 23 ON ti FA 40 0- 1- .0 IC 93 E ve TE 17 20 20 00 DI 1 01 17 17 PH XI 4 AR E GM MA D /1 CY 0 ML LL C MARCIAL SP NI 43 08 08 0 28 28 [...] AD MG LL TA C BL ET AM 57 08 08 0 20 10 CL 43 FR Ac OX 23 -0 -0 0. IN 83 YM ti IC 70 2- 2- 00 IC 37 AN ve IL 03 20 20 0 LI 10 17 17 PH EU N 5 AR GO 50 MA ND 0 CY A MG F LL CA C PS UL E NE 61 08 08 0 10 7 CL 43 FR Ac OM 31 -0 -0 0. IN 83 YM ti YC 40 2- 2- 00 IC 36 AN ve IN 64 20 20 0 -P 51 17 17 PH EU OL 1 AR GO YM MA ND YX CY A IN F -H LL C C EA R MARCIAL SP RI 13 06 08 1 60 30 [...] 20 00 IN 40 17 17 PH MT 1 AR CH 40 MA AE 0 [...] LL BL C ET BE 00 06 07 1 90 [...] LL MG C TA BL ET BU 16 06 07 1 60 30 CL 43 Ac SP 72 -3 -2 0. IN 55 HF ti IR 90 0- 5- 00 IC 04 AQ ve ON 20 20 20 0 E 20 17 17 PH MU HC 1 AR LOU[place] L MA MM 10 CY AD MG LL C TA BL ET PH 00 07 07 11 12 30 [...] 7- 5- 00 IC 74 AN ve MT 21 20 20 0 N 81 17 17 PH EU HC 0 AR GO L MA ND 50 CY A 0 F MG LL C TA BL ET ME 00 04 07 10 60 30 CL 42 FR Ac TO 37 -2 -2 0. IN 94 YM ti MN 80 7- 5- 00 IC 79 AN ve OL 01 20 20 0 OL 80 17 17 PH EU 5 AR GO TA MA ND RT CY [...] UL LL E C TO 68 07 07 11 60 30 [...] LL G C IN [place] LE R MN 59 07 07 11 85 25 CL [...] 17 PH EU E 6 AR GO MN MA ND OP CY A F 50 [...] ET ON 53 07 07 0 10 33 CL 43 FR Ac ET 88 -0 -1 00 IN 63 YM ti OU 50 7- 0- .0 IC 92 AN ve CH 39 20 20 00 31 17 17 PH EU UL 0 AR GO TR MA ND CY A OF F T LL LA C NC ET S ON 53 07 07 0 10 30 [...] F ST LL C ST RI PS RI 13 06 07 1 60 30 [...] 7- 8- 00 IC 74 AN ve MT 21 20 20 0 N 81 17 [...] 17 PH XI E 6 AR E MN MA D OP CY 50 LL C [...] 0 LL MG C TA BL ET TO 68 05 06 1 60 30 [...] -2 -2 0. IN 94 YM ti MN 70 7- 8- 00 IC 79 AN [...] LL MG C CA PS UL E GE 57 06 06 0 60 30 [...] LL G C IN [place] LE R MN 59 06 06 0 85 25 CL [...] A PS F UL LL E C AM 65 06 06 0 20 10 [...] 62 -2 -1 .0 00 IN ti MT 97 7- 6- 00 00 IC ve [...] 23 -2 -1 .0 00 IN ti MN 70 7- 6- 00 00 IC ve [...] CY 20 MG CA PS UL E MO 16 05 06 30 30 00 [...] 17 94 PH E 6 86 AR MN MA OP CY 50 MC G SP RA Y PA 00 05 06 30 10 00 CL Ac IN 11 -2 -1 .0 00 IN ti 30 7- 6- 00 00 IC ve RE 21 20 20 42 LI 77 17 17 73 PH EF 1 43 AR MA ER CY [address] ET FE 00 05 06 30 30 00 [...] 10 MA CY MG TA BL ET PA 00 05 06 30 10 [...] CY AD TA LL BL C ET ME 53 05 06 60 30 00 CL Ac TF 74 -1 -0 .0 00 IN ti OR 60 3- 2- 00 00 IC ve MT 21 20 20 42 N 81 17 [...] CY T 10 0 MG CA P CL 16 05 06 30 30 00 CL Ac ON 72 -0 -0 .0 00 IN ti AZ 90 8- 2- 00 00 IC ve EP 13 20 20 43 AM 60 17 17 04 PH 0 76 AR 0. MA 5 CY MG TA BL ET RI 13 05 06 90 30 00 CL Ac SP 66 -0 -0 .0 00 IN ti ER 80 9- 2- 00 00 IC ve ID 04 20 20 42 ON 06 17 17 94 PH E 0 77 AR 4 MA MG CY TA BL ET PH 65 04 06 [...] 7- 1- 00 IC 74 AN ve MT 21 20 20 0 N 81 17 17 PH EU HC 0 AR GO L MA ND 50 CY A 0 F MG LL C TA BL ET LE [...] 17 PH XI E 6 AR E MN MA D OP CY 50 LL C [...] CY MG LL C TA BL ET SE [...] LL TA C BL ET ME 57 05 05 60 30 00 CL Ac TO 23 -0 -2 .0 00 IN ti MN 70 1- 6- 00 00 IC ve OL 10 20 20 42 OL 09 17 17 94 PH 9 79 AR TA MA RT CY RA TE 25 MG TA B TO 68 05 05 60 30 00 CL Ac PI 46 -0 -2 .0 00 IN ti RA 20 1- 6- 00 IC ve MA 11 20 20 42 TE 06 17 17 94 PH 0 85 AR 20 MA 0 CY MG TA BL ET OM 49 05 05 60 30 00 CL Ac EG 88 -0 -2 .0 00 IN ti A- 40 1- 6- 00 IC ve 3 01 20 20 42 ET 90 17 17 94 PH HY 8 88 AR L MA ES CY TE RS 1 GM CA P BR 00 05 05 60 30 00 CL Ac EO 17 -0 -2 .0 00 IN ti 30 1- 6 00 IC ve EL 85 20 20 42 LI 91 17 17 94 PH PT 0 81 AR A MA 10 CY 0- 25 MC G IN H OX 51 05 05 12 30 00 CL Ac CA 99 -0 -2 0. 00 IN ti RB 10 - 00 IC ve AZ 29 20 20 0 42 EP 30 17 17 98 PH IN 1 15 AR E MA 30 CY 0 MG TA BL ET MO 27 05 05 30 30 00 CL Ac NT 24 -0 -2 .0 00 IN ti EL 10 00 IC ve UK 01 20 20 42 80 17 17 94 PH T 9 83 AR SO MA D CY 10 MG TA BL ET LE 13 05 05 60 30 00 CL Ac VE 66 -0 -2 .0 00 IN ti TI 80 1- 6 00 IC ve RA 01 20 20 42 CE 76 17 17 69 PH TA 0 93 AR M MA 1, CY 00 0 MG TA BL ET BU 00 05 05 60 30 00 CL Ac SP 37 -0 -2 .0 00 IN ti IR 81 1- 6 00 IC ve ON 15 20 20 42 E 00 17 17 69 PH HC 1 94 AR L MA 10 CY MG TA BL ET OL 66 05 05 30 30 00 CL Ac AN 99 -0 -2 .0 00 IN ti ZA 30 - 00 IC ve PI 68 20 20 42 NE 53 17 17 97 PH 0 92 AR 20 MA CY MG TA BL ET 54 05 05 30 30 00 CL Ac TA 62 -0 -2 .0 00 IN ti MT 97 - 6 00 IC ve N 94 20 20 [...] -2 5 MG TB OM 60 05 05 30 30 00 [...] IN ti AT 90 1- 6- 00 00 IC ve RU 01 20 20 42 M 17 17 17 98 PH CO 0 44 AR MP MA LE CY TE TA BL ET VE 00 05 05 18 25 00 CL Ac NT 17 -0 -2 .0 00 IN ti OL 30 1- 6- 00 00 IC ve IN 68 [...] MA /1 CY 0 ML MARCIAL SP GA 68 04 05 18 26 00 [...] 60 7- 2- 00 00 IC ve MT 21 20 20 42 N 81 17 [...] 62 -0 -0 .0 00 IN ti MT 97 3- 5- 00 00 IC ve [...] 37 -0 -0 .0 00 IN ti MN 80 5- 5- 00 00 IC ve [...] MA 0 CY MG TA BL ET FL 50 04 05 16 30 00 CL Ac UT 38 -0 -0 .0 00 IN ti IC 30 3- 5- 00 00 IC ve 70 20 20 42 ON 01 17 17 70 PH E 6 48 AR MN MA OP CY 50 MC G SP [...] CY 0- 25 MC G IN H RI 13 04 05 90 30 00 CL Ac SP 66 -1 -0 .0 00 IN ti ER 80 3- 5- 00 00 IC ve ID 04 20 20 42 ON 06 17 17 70 PH E 0 32 AR 4 MA MG CY TA BL ET TR 00 03 05 [...] 20 CY MG CA PS UL E GA 16 03 04 30 5 00 [...] 20 2- 4- 00 13 CA ve MT 00 20 20 92 RE N 89 [...] PH TA AR BL MA ET CY CL 00 03 04 42 14 00 [...] MG CY TA BL ET RI 00 03 04 90 30 00 [...] 10 CY 0 MG TA BL ET 00 03 04 30 30 00 ME Ac TA 90 -1 -0 .0 00 D ti MT 45 4- 7- 00 13 CA ve [...] PS UL E TO 68 03 03 60 30 00 ME Ac PI 46 -0 -3 .0 00 D ti RA 20 8- 1- 00 13 CA ve MA 11 20 [...] 0 CY MG TA BL ET OM 65 03 [...] 37 -1 -3 .0 00 D ti MN 80 0- 1- 00 13 CA ve OL 01 20 20 87 RE OL 80 17 17 06 1 34 PH TA AR RT MA RA CY TE 25 MG TA B OL 60 03 03 30 30 00 ME Ac AN 50 -0 -3 .0 00 D ti ZA 53 6- 13 CA ve PI 11 20 20 [...] 0 MA MG CY TA BL ET TR 00 02 03 30 30 00 ME Ac IA 78 -0 -2 .0 00 D ti MT 11 6- 4- 00 13 CA ve ER 12 20 20 70 RE EN 30 17 17 25 E- 5 05 PH HC AR TZ MA CY 37 .5 -2 5 MG TB ME 65 02 03 60 30 00 ME Ac TF 86 -2 -2 .0 00 D ti OR 20 1- 4- 00 13 CA ve MT 00 20 20 77 RE N 89 [...] 0. 00 D ti FA 40 8- 4- 00 13 CA ve TE 17 20 [...] -2 .0 00 D ti OX 00 4- 4- 00 13 CA ve YZ 17 20 20 80 RE IN 00 17 17 47 E 5 79 PH PA AR M MA 50 CY MG CA P MO 27 02 03 30 30 00 ME Ac NT 24 -0 -2 .0 00 D ti EL 10 4- 4- 00 13 CA ve UK 01 20 20 70 RE 80 17 17 62 T 9 59 PH SO AR D MA 10 CY MG TA BL ET BU 00 02 03 18 30 00 ME Ac SP 09 -0 -2 0. 00 D ti IR 30 3- 4- 00 13 CA ve ON 05 20 20 0 69 RE E 40 17 17 59 HC 5 33 PH L AR 10 MA CY MG TA BL ET SE 68 02 03 60 30 00 ME Ac RT 18 -1 -2 .0 00 D ti RA 00 5- 4- 00 13 CA ve LI 35 20 [...] 37 -1 -2 .0 00 D ti MN 80 0- 4- 00 13 CA ve [...] 90 -1 -2 .0 00 D ti MT 45 3- 4- 00 13 CA ve [...] 00 CY 0 MG TA BL ET GA 16 02 03 90 10 00 ME Ac BA 71 -0 -2 .0 00 D ti PE 40 1- 4- 00 13 CA ve NT 33 20 20 68 RE IN 00 17 17 72 2 76 PH 60 AR 0 MA MG CY TA BL ET OM 65 02 03 60 30 00 ME Ac EG 16 -0 -2 .0 00 D ti A- 20 6- 4- 00 13 CA ve 3 03 20 20 70 RE ET 41 17 17 25 HY 6 04 PH L AR ES MA TE CY RS 1 GM CA P OL 60 02 03 30 30 00 ME Ac AN 50 -0 -2 .0 00 D ti ZA 53 8- 4- 00 13 CA ve PI 11 20 20 71 RE NE 30 17 17 39 3 88 PH 10 AR MA MG CY TA BL ET RI 00 02 03 90 30 00 ME Ac SP 37 -1 -2 .0 00 D ti ER 83 7- 4- 00 13 CA ve ID 51 20 20 76 RE ON 49 17 17 37 E 1 72 PH 4 AR MG MA CY TA BL ET CL 00 01 02 [...] MA CY TA BL LL ET C ME 65 01 02 60 30 00 ME Ac TF 86 -2 -1 .0 00 D ti OR 20 3- 7- 00 13 CA ve MT 00 20 20 63 RE N 89 [...] 10 0 LL MG C CA P OX 62 01 02 60 30 00 [...] TA CY BL ET LL C ME 00 01 02 60 30 00 ME Ac TO 37 -1 -0 .0 00 D ti MN 80 3- 3- 00 13 CA ve [...] CY ML LL SY C RU P CL 00 01 02 30 10 [...] 90 -1 -0 .0 00 D ti MT 45 4- 3- 00 13 CA ve [...] 65 LL 0 C MG CP LT BU 00 01 01 18 30 00 [...] RS 1 LL C GM CA P CL 00 12 01 30 10 00 [...] CY MG LL C TA BL ET BE 00 12 01 90 30 00 [...] 30 6- 0- 00 13 CA ve MT 31 20 20 50 RE DE 10 16 17 21 2 1 20 PH AR MG MA CY CA PS LL UL C E AZ 50 12 01 6. 5 00 [...] 20 4- 3- 00 13 CA ve MT 00 20 20 49 RE N 89 [...] 37 -1 -0 .0 00 D ti MN 80 5- 9- 00 13 CA ve OL 01 20 20 44 RE OL 80 16 17 82 1 17 PH TA AR RT MA RA CY TE LL 25 C MG TA B HY 64 12 01 [address] 98 -0 -0 .0 00 D ti OX 00 8- 9- 00 13 CA ve YZ 16 20 20 42 RE IN 90 16 17 65 E 5 72 PH PA AR M MA 25 CY MG LL C CA P OL 60 12 01 30 30 00 ME Ac AN 50 -1 -0 .0 00 D ti ZA 53 3- 9- 00 13 CA ve PI 11 20 20 44 RE NE 30 16 17 88 3 93 PH 10 AR MA MG CY TA LL BL C ET 00 12 30 30 00 ME Ac TA 90 -1 -0 .0 00 D ti MT 45 6- 9- 00 13 CA ve N 98 20 20 45 RE D3 66 16 17 37 0 68 PH 5, AR 00 MA 0 CY UN IT LL C CA PS UL E OX 62 12 01 60 30 00 ME Ac CA 75 -1 -0 .0 00 D ti RB 60 7- 9- 00 13 CA ve AZ 18 20 20 45 RE EP 58 16 17 93 IN 8 32 PH E AR 60 MA 0 CY MG LL TA C BL ET CL 00 12 01 42 14 00 ME Ac ON 09 -1 -0 .0 00 D ti AZ 30 3- 9- 00 13 CA ve EP 83 20 [...] 16 17 59 E 9 69 PH MN AR OP MA CY 50 LL MC C G SP RA Y HY 00 07 07 0 30 8 ME [address] 59 -2 -2 0. D 50 NO ti OC 13 3 CA 36 LD ve OD 20 20 20 0 RE 11 ON 20 15 15 RI -A 1 PH CH CE AR AR TA MA D MT CY W NO PH LL EN C 5- 32 5 TA 00 05 07 0 30 30 ME 11 AR Ac B- 90 -2 -2 0. D 49 NO ti A- 40 9 CA 84 LD ve 53 20 20 [...] 0. D 49 NO ti IB 20 9 CA 84 LD ve RO 22 20 20 0 RE 71 ZI 50 15 15 RI L 5 PH CH 60 AR AR 0 MA D MG CY W TA LL BL C ET ME 68 05 07 0 60 30 ME 11 AR Ac TF 38 -2 -2 0. D 49 NO ti OR 20 9 CA 84 LD ve MT 75 20 20 0 RE 72 N 80 15 15 RI HC 5 PH CH L AR AR 50 MA D 0 CY W MG LL TA C BL ET FI 00 05 07 0 60 30 ME 11 AR Ac SH 90 -2 -2 0. D 49 NO ti 44 9 CA 84 LD ve OI 04 20 20 0 RE 73 L 36 15 15 RI 1, 0 PH CH 00 AR AR 0 MA D MG CY W CA LL PS C UL E ME 57 05 07 0 60 30 ME 11 AR Ac TO 66 -2 -2 0. D 49 NO ti MN 40 9 CA 84 LD ve OL 50 20 20 0 RE 74 OL 65 15 15 RI 8 PH CH TA AR AR RT MA D RA CY W TE LL 25 C MG TA B TR 68 05 07 0 30 30 ME 11 AR Ac IA 00 -2 -2 0. D 49 NO ti MT 10 9- 5- 00 CA 84 LD ve ER 21 20 20 0 RE 75 EN 60 15 15 RI E- 0 PH CH HC AR AR TZ MA D CY W 37 .5 LL -2 C 5 MG TB AT 59 05 07 0 30 30 ME 11 AR Ac OR 76 -2 -2 0. D 49 NO ti VA 20 9- 5- 00 CA [address] 15 20 20 0 RE 67 AT 70 15 15 RI IN 2 PH CH AR AR 40 MA D CY W MG LL TA C BL ET 00 05 07 0 30 30 ME 11 AR Ac TA 90 -2 -2 0. D 49 NO ti MT 45 9- 5- 00 CA 84 LD ve N 98 20 [...] JE CE AR WE TA MA LL MT CY NO PH LL EN C 5- [...] -2 0. D 40 NO ti MT 45 9- 6- 00 CA 58 LD [...] -2 -2 0. D 40 NO ti MN 40 9- 6- 00 CA 58 LD [...] 9- 6- 00 CA 58 LD ve MT 02 20 20 0 RE 90 N [...] 0. D 32 NO ti EN 20 CA 92 LD ve DI 10 20 20 0 RE 77 30 15 15 RI XR 1 PH CH AR AR 10 MA D 0 CY W MG LL CA C PS UL E OX 51 05 05 0 90 30 ME 11 AR Ac CA 99 -2 -2 0. D 32 NO ti RB 10 CA 92 LD ve AZ 29 20 [...] 0. TA 25 AU ti RA 24 6 00 L 32 N ve LI 91 20 20 0 CA MA NE 00 15 15 RE RY 5 HC PH LO L AR U 10 MA 0 CY MG #5 TA BL ET ME 68 05 05 0 60 30 ME 11 AR Ac TF 38 -2 -2 0. D 32 NO ti OR 20 CA 92 LD ve MT 02 20 20 0 RE 62 N [...] -2 -2 0. D 32 NO ti MN 40 9- 9- 00 CA 92 LD ve OL 50 20 20 0 RE 65 OL 65 15 15 RI 8 PH CH TA AR AR RT MA D RA CY W TE LL 25 C MG TA B LI 63 05 05 0 30 30 ME 11 AR Ac DO 48 -2 -2 0. D 32 NO ti DE 10 9- 9- 00 CA 92 LD ve RM 68 20 20 0 RE 72 70 15 15 RI 5% 6 PH CH AR AR PA MA D TC CY W H LL C AT 55 05 05 9 30 30 TO 88 LO Ac OR 11 -2 -2 0. TA 29 EB ti VA 10 9- 9- [address] 12 [...] -2 0. TA 74 EB ti MT 45 4- 9- 00 L 03 KE [...] -2 -2 0. TA 95 EB ti MN 80 0- 0- 00 L 92 KE [...] MA MG CY TA #5 BL ET MN 00 10 05 3 67 32 TO [...] 6- 2- 00 L 71 KE ve MN 21 20 20 0 CA R IL [...] -2 -2 0. TA 95 EB ti MN 80 0- 0- 00 L 92 KE [...] .5 -2 #5 5 MG CP ME 68 03 04 6 60 30 TO 87 LO Ac TF 38 -2 -1 0. TA 74 EB ti OR 20 4- 7- 00 L 02 KE ve MT 02 20 20 0 CA R N 81 15 15 RE TA HC 0 MM L PH Y 50 AR 0 MA MG CY TA #5 BL ET 00 03 04 6 30 30 TO 87 LO Ac TA 90 -2 -1 0. TA 74 EB ti MT 45 4- 7- 00 L 03 KE [...] CY CA PS #5 UL E QU 67 01 04 3 30 30 [...] 6- 6- 00 L 71 KE ve MN 41 20 20 0 CA R IL [...] CY .5 -2 #5 5 MG CP FI 00 12 03 5 60 30 [...] 4- 4- 00 L 02 KE ve MT 02 20 20 0 CA R N 81 15 15 RE TA HC 0 MM L PH Y 50 AR 0 MA MG CY TA #5 BL ET 00 03 03 6 30 30 TO 87 LO Ac TA 90 -2 -2 0. TA 74 EB ti MT 45 4- 4- 00 L 03 KE ve N 98 20 20 0 CA R D3 66 15 15 RE TA 0 MM 5, PH Y 00 AR 0 MA UN CY IT #5 CA PS UL E GE 31 10 03 6 60 30 TO 86 LO Ac MF 72 -0 -2 0. TA 22 EB ti IB 20 2- 4- 00 L 32 KE ve RO 22 20 20 0 CA R ZI 50 14 15 RE TA L 5 MM 60 PH Y 0 AR MG MA CY TA BL #5 ET SE 59 01 03 5 60 30 [...] -0 -0 0. TA 58 AILYN ti MN 80 9- 9- 00 L 57 RN [...] -1 -1 0. TA 40 EB ti MT 45 9- 9- 00 L 75 KE [...] 7- 7- 00 L 39 KE ve MT 02 20 20 0 CA R N [...] -1 -1 0. TA 40 AILYN ti MN 80 1- 1- 00 L 67 RN [...] -2 -2 0. TA 24 EB ti MT 45 6- 6- 00 L 21 KE [...] 7- 3- 00 L 17 RN ve MT 02 20 20 0 CA E N [...] MA TA CY BL ET #5 ME 00 01 01 0 60 30 TO 87 OS Ac TO 37 -1 -1 0. TA 04 AILYN ti MN 80 0- 0- 00 L 26 RN [...] A -2 #5 L 5 MG CP TO 13 11 01 5 90 30 [...] TE CY 50 #5 MG TA B GE 31 10 01 6 60 30 [...] 7- 7- 00 L 17 RN ve MT 19 20 20 0 CA E N [...] -1 -1 0. TA 89 AILYN ti MN 20 7- 7- 00 L 16 RN [...] -1 0. TA 36 AILYN ti MT 45 0- 7- 00 L 25 RN [...] ST CY Y ST #5 RI PS MN 00 12 12 0 50 5 TO [...] 0- 3- 00 L 36 RN ve MT 36 20 20 0 CA E N [...] -1 0. TA 36 AILYN ti MT 45 0- 9- 00 L 25 RN [...] -0 -1 0. TA 51 AILYN ti MN 20 5- 9- 00 L 99 RN [...] 0- 9- 00 L 36 RN ve MT 21 20 20 0 CA E N [...] MG MA CY TA BL #5 ET MN 00 10 10 3 67 32 TO [...] -2 0. TA 36 AILYN ti MT 45 0- 0- 00 L 25 RN ve N 98 20 20 0 CA E D3 66 14 14 RE LE 0 WI 5, PH S 00 AR RE 0 MA BE UN CY CC IT A #5 L CA PS UL E ME 00 08 10 2 60 30 TO 85 OS Ac TO 37 -1 -2 0. TA 82 AILYN ti MN 80 2- 0- 00 L 25 RN [...] 0- 0- 00 L 36 RN ve MT 02 20 20 0 CA E N [...] -2 0. TA 71 AILYN ti MT 45 9- 3- 00 L 35 RN [...] TA #5 L BL ET QU 68 08 09 5 30 [...] MA TA CY BL ET #5 TO 31 04 09 5 90 30 TO 84 BR Ac PI 72 -2 -2 0. TA 95 AU ti RA 20 1- 3- 00 L 21 N ve MA 27 20 20 0 CA MA TE 81 14 14 RE RY 0 25 PH LO AR U MG MA CY TA BL #5 ET ME 50 08 09 2 60 30 TO 85 OS Ac TO 74 -1 -1 0. TA 82 AILYN ti MN 20 2- 6- 00 L 25 RN [...] 8- 2- 00 L 03 RN ve MT 02 20 20 0 CA E N 81 14 14 RE LE HC 0 WI L PH S 50 AR RE 0 MA BE MG CY CC A TA #5 L BL ET 00 07 08 2 30 30 TO 85 OS Ac TA 90 -2 -2 0. TA 71 AILYN ti MT 45 9- 6- 00 L 35 RN [...] PA AR TC MA H CY #5 ME 50 08 08 2 60 30 TO 85 OS Ac TO 74 -1 -1 0. TA 82 AILYN ti MN 20 2- 2- 00 L 25 RN ve OL 10 20 20 0 CA E OL 70 14 14 RE LE 5 WI TA PH S RT AR RE RA MA BE TE CY CC A 25 #5 L MG TA B SE 00 08 08 2 60 30 [...] TA #5 L BL ET SE 59 04 08 5 30 30 [...] 8- 4- 00 L 03 RN ve MT 02 20 20 0 CA E N [...] -2 0. TA 71 AILYN ti MT 45 9- 9- 00 L 35 RN [...] CC A ST #5 L RI PS MN 00 07 07 3 67 32 TO [...] CA PS #5 UL E RI 68 04 07 5 60 30 TO 84 BR Ac SP 38 -2 -2 0. TA 95 AU ti ER 20 1- 1- 00 L 19 N ve ID 11 20 20 0 CA MA ON 60 14 14 RE RY E 5 3 PH LO MG AR U MA TA CY BL ET #5 AR 36 07 07 1 90 30 [...] -1 -1 0. TA 14 AILYN ti MN 20 4- 5- 00 L 95 RN [...] 8- 8- 00 L 03 RN ve MT 02 20 20 0 CA E N [...] -3 -0 0. TA 03 AILYN ti MT 45 0- 1- 00 L 00 RN ve N 98 20 20 0 CA E D3 66 14 14 RE LE 0 WI 5, PH S 00 AR RE 0 MA BE UN CY CC IT A #5 L CA PS UL E QU 68 11 06 5 30 30 TO 83 BR Ac ET 18 -2 -2 0. TA 82 AU ti IA 00 5- 3- 00 L 48 N ve PI 44 20 20 0 CA MA NE 70 13 14 RE RY 1 FU PH LO MA AR U RA MA TE CY 10 0 MG TA B RI 68 04 06 5 60 30 TO 84 BR Ac SP 38 -2 -2 0. TA 95 AU ti ER 20 1- 3- 00 L 19 N ve ID 11 20 20 0 CA MA ON 61 14 14 RE RY E 4 3 PH LO MG AR U MA TA CY BL ET GA 53 06 06 5 18 30 [...] -1 -1 0. TA 14 AILYN ti MN 20 4- 7- 00 L 95 RN [...] -3 -2 0. TA 03 AILYN ti MT 45 0- 7- 00 L 00 RN [...] -1 -1 0. TA 14 AILYN ti MN 20 4- 4- 00 L 95 RN [...] -3 -3 0. TA 03 AILYN ti MT 45 0- 0- 00 L 00 RN [...] CA R ON 09 14 14 RE MT E 9 CH MN PH AE OP AR L MA G [...] -1 -1 0. TA 42 AILYN ti MN 20 4- 6- 00 L 02 RN [...] 2- 3- 00 L 08 RN ve MT 10 20 20 CA E DE 51 [...] -1 -1 0. TA 42 AILYN ti MN 20 4- 3- 00 L 02 RN [...] 8- 1- 00 L 58 RN ve MT 10 20 20 CA E DE 51 [...] 9- 1- 00 L 39 RN ve MT 10 20 20 CA E DE 51 14 14 RE LE 0 WI 40 PH S AR RE MG MA BE CY CC TA A BL L ET FU 50 02 02 0 70 7 TO 84 OS Ac RO 74 -1 -1 .0 TA 42 AILYN ti SE 20 4- 4- 00 L 03 RN ve MT 10 20 20 CA E DE 51 [...] -1 -1 0. TA 42 AILYN ti MN 20 4- 4- 00 L 02 RN ve OL 10 20 20 0 CA E OL 70 14 14 RE LE 5 WI TA PH S RT AR RE RA MA BE TE CY CC A 25 L MG TA B RI 68 12 02 5 60 30 TO 83 BR Ac SP 38 -0 -1 0. TA 86 AU ti ER 20 2- 2- 00 L 69 N ve ID 11 20 20 0 CA MA ON 61 13 14 RE RY E 4 3 PH LO MG AR U MA TA CY BL ET MN 68 02 02 2 30 30 TO [...] AR U MA TA CY BL ET MN 68 11 01 2 30 30 TO [...] CC CA A PS L UL E TO 68 11 01 5 90 30 TO 83 BR Ac PI 46 -2 -0 0. TA 82 AU ti RA 20 5- 8- 00 L 49 N ve MA 10 20 20 0 CA MA TE 81 13 14 RE RY 0 25 PH LO AR U MG MA CY TA BL ET SE 00 12 01 2 60 30 TO 83 OS Ac NN 60 -0 -0 0. TA 89 AILYN ti A- 30 4- 8- 00 L 13 RN ve LA 28 20 20 0 CA E X 22 13 14 RE LE 8. 1 WI 6 PH S MG AR RE MA BE TA CY CC BL A ET L FL 00 02 01 6 16 30 TO 81 SC Ac UT 05 -2 -0 0. TA 80 [place] ti IC 43 8- 7- 00 L 76 FE ve 27 20 20 0 CA R ON 09 13 14 RE MT E 9 CH MN PH AE OP AR L MA G 50 CY MC G SP RA Y CY 59 12 01 0 15 5 TO 84 RO Ac CL 74 -3 -0 0. TA 07 GE ti OB 60 1- 2- 00 L 92 RS ve EN 17 20 20 0 CA ZA 71 13 14 RE SH MN 0 AR IN PH ON E AR [...] AR CE PH ON TA AR E MT MA NO CY PH EN 5- 32 [...] AR U MA TA CY BL ET MN 68 11 12 2 30 30 TO [...] CA R ON 09 13 13 RE MT E 9 CH MN PH AE OP AR L MA G [...] R CE PH MA TA AR TT MT MA HE NO CY W PH S EN 5- 32 5 MN 68 11 11 0 30 8 TO [...] AR U MA TA CY BL ET MN 68 11 11 2 30 30 TO [...] TA CY BL ET SE 00 08 10 2 60 30 TO 83 OS Ac NN 60 -2 -0 0. TA 12 AILYN ti A- 30 7- 2- 00 L 89 RN ve LA 28 20 20 0 CA E X 22 13 13 RE LE 8. 1 WI 6 PH S MG AR RE MA BE TA CY CC BL A ET L MN 68 07 10 2 30 30 TO [...] CC 5 A L MG TA B HY 00 10 10 0 10 2 [address] 60 -0 -0 0. TA 41 RR ti OC 33 1- 2- 00 L 54 EN ve OD 89 20 20 0 CA ON 02 13 13 RE BR -A 8 EN CE PH TO TA AR N MT MA D NO CY PH EN 5- 32 5 GA 53 08 09 5 18 30 TO 83 BR Ac BA 74 -2 -2 00 TA 11 AU ti PE 60 6- 5- .0 L 48 N ve NT 10 20 20 00 CA MA IN 20 13 13 RE RY 5 30 PH LO 0 AR U MG MA CY CA PS UL E FI 30 09 09 0 60 30 [...] .5 A -2 L 5 MG CP LA 63 09 09 5 30 30 TO 83 BR Ac TU 40 -0 -0 0. TA 23 AU ti DA 20 9- 9- 00 L 84 N ve 30 20 20 0 CA MA 80 83 13 13 RE RY 0 MG PH LO AR U TA MA BL CY ET #5 AM 59 08 08 2 30 30 [...] .5 A -2 L 5 MG CP MN 68 07 08 2 30 30 TO [...] AR U MA TA CY BL ET FI 30 08 08 0 60 30 TO 83 OS Ac SH 76 -2 -2 0. TA 12 AILYN ti 80 7- 7- 00 L 86 RN ve OI 03 20 20 0 CA E L 30 13 13 RE LE 1, 4 WI 00 PH S 0 AR RE MG MA BE CY CC SO A FT L GE L SE 00 08 08 2 60 30 TO 83 OS Ac NN 60 -2 -2 0. TA 12 AILYN ti A- 30 7- 7- 00 L 89 RN ve LA 28 20 20 0 CA E X 22 13 13 RE LE 8. 1 WI 6 PH S MG AR RE MA BE TA CY CC BL A ET L GA 53 08 08 5 18 [...] CA R ON 09 13 13 RE MT E 9 CH MN PH AE OP AR L MA G [...] 0- 0- 00 L 31 RN ve MT 10 20 20 CA E DE 51 [...] AR U MA TA CY BL ET MN 68 07 07 2 30 30 TO [...] RE MA BE CY CC A L FL 00 02 06 6 16 30 TO 81 SC Ac UT 05 -2 -2 0. TA 80 [place] ti IC 43 8- 8- 00 L 76 FE ve 27 20 20 0 CA R ON 09 13 13 RE MT E 9 CH MN PH AE OP AR L MA G 50 CY MC G SP RA Y RI 68 06 06 1 60 30 [...] 10 0 MG TA B TO 68 03 06 5 90 30 [...] AR U MA TA CY BL ET MN 68 06 06 0 30 30 TO [...] AR U TA MA BL CY ET SE 00 05 05 0 60 [...] 37 CY .5 -2 5 MG CP MN 68 05 05 0 30 30 TO [...] CA R ON 09 13 13 RE MT E 9 CH MN PH AE OP AR L MA G [...] MG AR MA TA CY BL ET QU 68 [...] MA CY TA BL ET RI 68 05 05 3 60 30 TO 82 BR Ac SP 38 -0 -0 0. TA 29 AU ti ER 20 1- 1- 00 L 14 N ve ID 11 20 20 0 CA MA ON 51 13 13 RE RY E 4 2 PH LO MG AR U MA TA CY BL ET BE 00 03 04 5 [...] MG MA CY SO FT GE L MN 68 04 04 0 30 30 TO 82 WE Ac AV 18 -1 -1 0. TA 19 IS ti 00 7- 7- 00 L 47 S ve TA 48 20 20 0 CA HE TI 80 13 13 RE LE N 2 N SO PH DI AR UM MA CY 80 MG TA B 00 04 04 0 40 10 TO 82 WE Ac 59 -1 -1 0. TA 15 IS ti 13 2- 2- 00 L 87 S ve 12 20 20 0 CA HE 00 13 13 RE LE 1 N PH AR MA CY PA 24 04 04 0 30 5 TO 82 WE Ac IN 38 -1 -1 0. TA 15 IS ti 50 2- 2- 00 L 88 S ve RE 48 20 20 0 CA HE LI 47 13 13 RE LE EV 1 N ER PH AR 50 MA [address] ET TR 00 04 04 2 30 30 [...] CA R ON 09 13 13 RE MT E 9 CH MN PH AE OP AR L MA G [...] CA R IN 80 13 13 RE MT E 1 CH 10 PH AE 0 [...] 0. MA 5 CY MG TA B MN 68 03 03 0 30 30 TO [...] 10 0 MG TA B FI 30 03 03 0 60 30 TO 81 WE Ac SH 76 -1 -1 0. TA 92 IS ti 80 3- 4- 00 L 76 S ve OI 03 20 20 0 CA HE L 30 13 13 RE LE 1, 4 N 00 PH 0 AR MG MA CY SO FT GE L TR 00 03 03 0 30 30 TO 81 WE Ac IA 52 -1 -1 0. TA 92 IS ti MT 71 3- 4- 00 L 75 S ve ER 63 20 20 0 CA HE EN 20 13 13 RE LE E- 1 N HC PH TZ AR MA 37 CY .5 -2 5 MG CP TO 68 03 03 5 60 30 [...] MA TA CY BL ET RI 68 03 03 5 [...] CA R ON 09 13 13 RE MT E 9 CH MN PH AE OP AR L MA G 50 CY MC G SP RA Y MN 68 02 02 0 30 30 TO [...] AR O TA MA BL CY ET TR 00 02 02 0 30 30 TO 81 WE Ac IA 52 -0 -0 0. TA 64 IS ti MT 71 8- 9- 00 L 78 S ve ER 63 20 20 0 CA HE EN 20 13 13 RE LE E- 1 N HC PH TZ AR MA 37 CY .5 -2 5 MG CP LA 68 02 02 0 60 31 TO 81 WE Ac MO 38 -0 -0 0. TA 64 IS ti TR 20 8- 9- 00 L 75 S ve IG 00 20 20 0 CA HE IN 80 13 13 RE LE E 1 N 10 PH 0 AR MG MA CY TA BL ET SE 00 02 02 0 60 30 [...] MA CY MG TA BL ET TR 50 02 02 [...] MG MA CY CA PS UL E LO 00 01 01 1 60 30 [...] MG MA CY CA PS UL E LE 00 10 10 0 60 30 CV 71 ME Ac VE 37 -3 -3 .0 S 63 LV ti TI 85 1- 1- 00 PH 80 IL ve RA 61 20 20 AR LE CE 77 11 11 MA TA 8 CY DA M # NI 75 EL 0 06 MG 34 5 TA BL ET GE 31 10 10 2 60 30 CV 71 ME Ac MF 72 -3 -3 .0 S 64 LV ti IB 20 1- 1- 00 PH 61 IL ve RO 22 20 20 AR LE ZI 50 11 11 MA L 5 CY DA 60 # NI 0 EL MG 06 34 TA 5 BL ET CV 50 09 10 11 30 30 CV 70 ME Ac S 42 -1 -2 .0 S 95 LV ti SE 87 5- 9- 00 PH 44 IL ve NN 07 20 20 AR LE A 92 11 11 MA LA 8 CY DA XA # NI TI EL VE 06 34 8. 5 6 MG TA B MN 00 09 10 11 30 30 CV [...] -1 -2 .0 S 95 LV ti MN 80 5- 9- 00 PH 48 IL [...] 34 T 5 D3 20 0 TB CE 00 10 10 0 20 10 [...] 34 8. 5 6 MG TA B MN 00 09 10 11 30 30 CV [...] -1 -0 .0 S 95 LV ti MN 80 5- 2- 00 PH 48 IL [...] 34 T 5 D3 20 0 TB GA 68 07 10 2 90 30 CV 69 ME Ac BA 46 -1 -0 .0 S 96 LV ti PE 20 1- 2- 00 PH 82 IL ve NT 12 20 20 AR LE IN 70 11 11 MA 5 CY DA 80 # NI 0 EL MG 06 34 TA 5 BL ET GE 31 06 10 2 60 30 [...] 2 30 30 CV 70 HO Ac MN 00 -0 -1 .0 S 77 UC [...] Y 06 TA 34 BL 5 ET ME 00 06 08 1 60 30 CV 70 ME Ac TO 37 -2 -2 .0 S 14 LV ti MN 80 3- 8- 00 PH 04 IL ve OL 03 20 20 AR LE OL 21 11 11 MA 0 CY DA TA # NI RT EL RA 06 TE 34 5 50 MG TA B CV 50 06 08 1 30 30 CV 70 ME Ac S 42 -2 -2 .0 S 14 LV ti SE 87 3- 8- 00 PH 06 IL ve NN 07 20 20 AR LE A 92 11 11 MA LA 8 CY DA XA # NI TI EL VE 06 34 8. 5 6 MG TA B MN 00 07 08 1 30 30 CV [...] 10 34 0 5 MG CA P OY 00 06 08 1 60 30 CV [address] 90 -2 -2 .0 S 14 LV ti ER 45 9- 8- 00 PH 08 IL ve 46 20 20 AR LE SH 08 11 11 MA EL 0 CY DA L # NI 50 EL 0- 06 34 T 5 D3 20 0 TB LE 00 06 08 2 60 30 CV 70 ME Ac VE 37 -2 -2 .0 S 04 LV ti TI 85 3- 8- 00 PH 29 IL ve RA 61 20 20 AR LE CE 77 11 11 MA TA 8 CY DA M # NI 75 EL 0 06 MG 34 5 TA BL ET CV 50 06 08 2 60 10 CV 70 ME Ac S 42 -2 -2 .0 S 04 LV ti AC 83 3- 8- 00 PH 30 IL ve ET 01 20 20 AR LE AM 42 11 11 MA IN 4 CY DA OP # NI HE EL N 06 32 34 5 5 MG TA B GE 00 08 08 1 60 30 CV 70 GH Ac OD 04 -2 -2 .0 S 59 AN ti ON 93 4- 4- 00 PH 50 TA ve 99 20 20 AR 80 06 11 11 MA RA 0 CY ME MG # SH CA 06 PS 34 UL 5 E ZY 00 08 08 0 30 30 CV 70 GH Ac MN 00 -2 -2 .0 S 59 AN ti EX 24 4- 4- 00 PH 49 TA ve A 45 20 20 AR ZY 38 11 11 MA RA DI 5 CY ME S # SH 5 MG 06 34 TA 5 BL ET CV 50 06 07 1 30 30 CV 70 ME Ac S 42 -2 -3 .0 S 14 LV ti SE 87 3- 0- 00 PH 06 IL ve NN 07 20 20 AR LE A 92 11 11 MA LA 8 CY DA XA # NI TI EL VE 06 34 8. 5 6 MG TA B MN 00 07 07 1 30 30 CV [...] -2 -2 .0 S 14 LV ti MN 80 3- 2- 00 PH 04 IL ve OL 03 20 20 AR LE OL 21 11 11 MA 0 CY DA TA # NI RT EL RA 06 TE 34 5 50 MG TA B PH 65 07 07 1 12 30 CV 70 ME Ac EN 16 -2 -2 0. S 14 LV ti YT 20 2- 2- 00 PH 05 IL ve OI 21 20 20 0 AR LE N 21 11 11 MA SO 1 CY DA D # NI EX EL T 06 10 34 0 5 MG CA P OY 00 06 07 1 60 30 CV [address] 90 -2 -2 .0 S 14 LV ti ER 45 9- 2- 00 PH 08 IL ve 46 20 20 AR LE SH 08 11 11 MA EL 0 CY DA L # NI 50 EL 0- 06 34 T 5 D3 20 0 TB BE 00 07 07 2 60 30 CV 69 ME Ac NZ 83 -1 -2 .0 S 98 LV ti TR 21 2- 0- 00 PH 60 IL ve OP 08 20 20 AR LE IN 20 11 11 MA E 0 CY DA ME # NI S EL 2 06 MG 34 5 TA BL ET GE 31 06 07 2 60 30 CV 70 ME Ac MF 72 -2 -2 .0 S 04 LV ti IB 20 3- 0- 00 PH 31 IL ve RO 22 20 20 AR LE ZI 50 11 11 MA L 5 CY DA 60 # NI 0 EL MG 06 34 TA 5 BL ET LE 00 06 07 2 [...] 34 8. 5 6 MG TA B MN 00 06 06 3 30 30 CV [...] -2 -2 .0 S 72 t ti MN 80 3- 3- 00 PH 76 Av [...] 06 MG 34 5 TA BL ET PH 65 06 06 3 12 30 CV 69 No Ac EN 16 -2 -2 0. S 72 t ti YT 20 3- 3- 00 PH 48 Av ve OI 21 20 20 0 AR ai N 21 11 11 MA la SO 1 CY bl D # e EX T 06 10 34 0 5 MG CA P OY 00 06 06 3 60 30 CV [address] 90 -2 -2 .0 S 72 t ti ER 45 3- 3- 00 PH 70 Av ve 46 20 20 AR ai SH 08 11 11 MA la EL 0 CY bl L # e 50 0- 06 34 T 5 D3 20 0 TB GE 31 06 06 3 60 30 [...] 32 34 5 5 MG TA B Immunization Name Date Rout CVX Reac Dose Comm Prov Is Faci e tion ent ider Refu lity Give sed n IIV4 10-0 158 [facility] No DHS/ 20 O CO VACC 15 DIST HEAL RICT TH SPLI T HLTH VIRU S DEPT 0.5 BALTAZAR ML DOS FOR IM USE INFL 11-[address] UENZ 1-20 RNE VANNA A 13 LEWI ABET VACC S H CHLOE PHYS IIV3 ICIA NS SPLI T VIRU S PRSR V FREE ID Procedures Procedure DOS Code Location Performer Comment HOME CARE [id number] [facility] [address] [place] [address] ELDER ELDER CARE CARE CARE CLIENT PER 15 MIN HOME CARE S5108 [facility] [address] [place] [address] ELDER ELDER CARE CARE CARE CLIENT PER 15 MIN HOME CARE S5108 [facility] [address] [place] [address] ELDER ELDER CARE CARE CARE CLIENT PER 15 MIN DAY CARE S5100 [facility] [address] [place] [address] ADULT; ELDER ELDER PER 15 CARE CARE MINUTES DAY CARE S5100 [facility] [address] [place] [address] ADULT; ELDER ELDER PER 15 CARE CARE MINUTES HOME CARE S5108 [facility] [address] [place] [address] ELDER ELDER CARE CARE CARE CLIENT PER 15 MIN HOME CARE S5108 [facility] [address] [place] [address] ELDER ELDER CARE CARE CARE CLIENT PER 15 MIN DAY CARE S5100 [facility] [address] [place] [address] ADULT; ELDER ELDER PER 15 CARE CARE MINUTES HOME CARE S5108 [facility] [address] [place] [address] ELDER ELDER CARE CARE CARE CLIENT PER 15 MIN HOME CARE S5108 [facility] [address] [place] [address] ELDER ELDER CARE CARE CARE CLIENT PER 15 MIN DAY CARE S5100 [facility] [address] [place] [address] ADULT; ELDER ELDER PER 15 CARE CARE MINUTES HOME CARE S5108 [facility] 7 [facility] ELDER ELDER CARE CARE CARE CLIENT PER 15 MIN HOME CARE S5108 [facility] 7 [facility] ELDER ELDER CARE CARE CARE CLIENT PER 15 MIN DAY CARE S5100 [facility] [address] [facility] ADULT; ELDER ELDER PER 15 CARE CARE MINUTES DAY CARE S5100 [facility] [address] [facility] ADULT; ELDER ELDER PER 15 CARE CARE MINUTES HOME CARE S5108 [facility] 7 [facility] ELDER ELDER CARE CARE CARE CLIENT PER 15 MIN HOME CARE S5108 [facility] 7 [facility] ELDER ELDER CARE CARE CARE CLIENT PER 15 MIN HOME CARE S5108 [facility] 7 [facility] ELDER ELDER CARE CARE CARE CLIENT PER 15 MIN RADIOLOGI 60029 [place] ANNE C 7 MEDICAL EXAMINATI SERV ON CHEST FOUNDATIO SINGLE [place] FRONTAL ECG 72589 [place] LUCRETIA ROUTINE 7 MEDICAL ECG SERV W/LEAST FOUNDATIO 12 LDS N I&R ONLY HOME CARE S5108 [facility] 7 [facility] ELDER ELDER CARE CARE CARE CLIENT PER 15 MIN HOME CARE S5108 [facility] 7 [facility] ELDER ELDER CARE CARE CARE CLIENT PER 15 MIN GROUND A0425 [facility] 7 AMBULANCE AMBULANCE PER SERVICE SERVICE STATUTE MILE AMBULANCE A0429 [facility] SERVICE 7 AMBULANCE AMBULANCE BLS SERVICE SERVICE EMERGENCY TRANSPORT DAY CARE S5100 [facility] [address] [facility] ADULT; ELDER ELDER PER 15 CARE CARE MINUTES DAY CARE S5100 [facility] [address] [facility] ADULT; ELDER ELDER PER 15 CARE CARE MINUTES HOME CARE S5108 [facility] 7 [facility] ELDER ELDER CARE CARE CARE CLIENT PER 15 MIN HOME CARE S5108 [facility] 7 [facility] ELDER ELDER CARE CARE CARE CLIENT PER 15 MIN HOME CARE S5108 [facility] 7 [facility] ELDER ELDER CARE CARE CARE CLIENT PER 15 MIN INITIAL 78800 [facility] 7 PHYSICIAN A CARE/DAY S GROUP 50 MINUTES HOME CARE S5108 [facility] [address] [facility] HOME ELDER ELDER CARE CARE CARE CLIENT PER 15 MIN GROUND A0425 [facility] AM[facility]UL[facility] PER SERVICE SERVICE STATUTE MILE AMBULANCE A0429 SISI [facility] SERVICE 7 AMBULANCE AMBULANCE BLS SERVICE SERVICE EMERGENCY TRANSPORT DAY CARE S[address] [facility] [address] ADULT; ELDER ELDER PER 15 CARE CARE MINUTES DAY CARE S5100 [facility] [address] ADULT; ELDER ELDER PER 15 CARE CARE MINUTES ECG 02360 KE TILLMAN JR ROUTINE 7 [facility] W/LEAST P 12 LDS I&R ONLY AMBULANCE A0429 S[facility]I [facility] SERVICE 7 AMBULANCE AMBULANCE BLS SERVICE SERVICE EMERGENCY TRANSPORT RADIOLOGI 44284 [facility] 7 MEDICAL EXAMINATI IMAGING ON CHEST ASS SINGLE VIEW FRONTAL GROUND A0425 [facility] AM[facility]UL[facility] AMBULANCE PER SERVICE SERVICE STATUTE MILE HOME CARE S5108 [facility] [address] [facility] HOME ELDER ELDER CARE CARE CARE CLIENT PER 15 MIN HOME CARE S5108 [facility] 7 [facility] ELDER ELDER CARE CARE CARE CLIENT PER 15 MIN HOME CARE S5108 [facility] 7 [facility] ELDER ELDER CARE CARE CARE CLIENT PER 15 MIN HOME S5170 [facility] 7 CO. ADULT CO. ADULT MEALS DAY DAY INCLUDING ELDER ELDER PREPARATI ON; PER MEAL DAY CARE S[address] [facility] [address] ADULT; ELDER ELDER PER 15 CARE CARE MINUTES DAY CARE S5100 [facility] [address] ADULT; ELDER ELDER PER 15 CARE CARE MINUTES HOME S5170 [facility] 7 CO. ADULT CO. ADULT MEALS DAY DAY INCLUDING ELDER ELDER PREPARATI ON; PER MEAL HOME CARE S5108 [facility] 7 [facility] ELDER ELDER CARE CARE CARE CLIENT PER 15 MIN HOME CARE S5108 [facility] [address] [place] [address] ELDER ELDER CARE CARE CARE CLIENT PER 15 MIN HOME S5170 [facility] 7 CO. ADULT CO. ADULT MEALS DAY DAY INCLUDING ELDER ELDER PREPARATI ON; PER MEAL DAY CARE S[address] [facility] [address] ADULT; ELDER ELDER PER 15 CARE CARE MINUTES DAY CARE S5100 [facility] [address] ADULT; ELDER ELDER PER 15 CARE CARE MINUTES HOME S5170 [facility] 7 CO. ADULT CO. ADULT MEALS DAY DAY INCLUDING ELDER ELDER PREPARATI ON; PER MEAL HOME CARE S5108 [facility] [address] [place] [address] ELDER ELDER CARE CARE CARE CLIENT PER 15 MIN HOME CARE S5108 [facility] [address] [place] [address] ELDER ELDER CARE CARE CARE CLIENT PER 15 MIN HOME S5170 KE [facility] 7 CO. ADULT CO. ADULT MEALS DAY DAY INCLUDING ELDER ELDER PREPARATI ON; PER MEAL HOME S5170 [facility] DELIV 7 CO. ADULT CO. ADULT MEALS DAY DAY INCLUDING ELDER ELDER PREPARATI ON; PER MEAL HOME CARE S5108 [facility] [address] [place] [address] ELDER ELDER CARE CARE CARE CLIENT PER 15 MIN DAY CARE S5100 [facility] [address] ADULT; ELDER ELDER PER [place] [address] [facility] TROPONIN [facility] QUANTITAT INC INC SWAPNIL BLOOD 89739 KE ESTRELLA COUNT 7 [facility] COMPLETE INC AUTO&AUTO DIFRNTL WBC ECG 58232 KE CHRISTIE ROUTINE 7 [facility] W/LEAST P 12 LDS I&R ONLY RADEX HIP 23235 [facility] UNILATERA INC INC L WITH PELVIS 2-3 VIEWS HOME CARE S5108 [facility] 7 [facility] ELDER ELDER CARE CARE CARE CLIENT PER 15 MIN GROUND A0425 [facility] AMBULANCE AMBULANCE PER SERVICE SERVICE STATUTE MILE URNLS DIP 39552 [facility] STICK/TAB INC INC LET REAGENT AUTO MICROSCOP Y CREATINE 94794 [facility] KINASE 7 [facility] TOTAL INC INC COMPREHEN 49562 [facility] SIVE 7 [facility] METABOLIC INC INC PANEL ECG 92146 [facility] ROUTINE 7 [facility] ECG INC INC W/LEAST 12 LDS TRCG ONLY W/O I&R HOME S5170 KE [facility] 7 CO. ADULT CO. ADULT MEALS DAY DAY INCLUDING ELDER ELDER PREPARATI ON; PER MEAL CREATINE 11826 [facility] KINASE MB 7 [facility] FRACTION INC INC ONLY AMB A0427 [facility] SERVICE 7 AMBULANCE AMBULANCE ALS SERVICE SERVICE EMERGENCY TRANSPORT LEVEL 1 HOME S5170 KE [facility] 7 CO. ADULT CO. ADULT MEALS DAY DAY INCLUDING ELDER ELDER PREPARATI ON; PER MEAL HOME CARE S5108 [facility] [address] [place] [address] ELDER ELDER CARE CARE CARE CLIENT PER 15 MIN HOME CARE S5108 [facility] [address] [place] [address] ELDER ELDER CARE CARE CARE CLIENT PER 15 MIN HOME S5170 KE [facility] 7 CO. ADULT CO. ADULT MEALS DAY DAY INCLUDING ELDER ELDER PREPARATI ON; PER MEAL DAY CARE S5100 [facility] [address] ADULT; ELDER ELDER PER 15 CARE CARE MINUTES HOME S5170 KE [facility] 7 CO. ADULT CO. ADULT MEALS DAY DAY INCLUDING ELDER ELDER PREPARATI ON; PER MEAL HOME CARE S5108 [facility] [address] ELDER ELDER CARE CARE CARE CLIENT PER 15 MIN HOME CARE S5108 [facility] [address] [place] [address] ELDER ELDER CARE CARE CARE CLIENT PER 15 MIN HOME S5170 KE [facility] 7 CO. ADULT CO. ADULT MEALS DAY DAY INCLUDING ELDER ELDER PREPARATI ON; PER MEAL DAY CARE S5100 [facility] [address] ADULT; ELDER ELDER PER 15 CARE CARE MINUTES DAY CARE S5100 [facility] [address] ADULT; ELDER ELDER PER 15 CARE CARE MINUTES HOME S5170 KE [facility] 7 CO. ADULT CO. ADULT MEALS DAY DAY INCLUDING ELDER ELDER PREPARATI ON; PER MEAL HOME CARE S5108 [facility] [address] [place] [address] ELDER ELDER CARE CARE CARE CLIENT PER 15 MIN HOME CARE S[address] [facility] [address] ELDER ELDER CARE CARE CARE CLIENT PER 15 MIN HOME S5170 KE [facility] 7 CO. ADULT CO. ADULT MEALS DAY DAY INCLUDING ELDER ELDER PREPARATI ON; PER MEAL DAY CARE S5100 [facility] [address] ADULT; ELDER ELDER PER 15 CARE CARE MINUTES DAY CARE S5100 [facility] [address] ADULT; ELDER ELDER PER 15 CARE CARE MINUTES HOME S5170 KE [facility] 7 CO. ADULT CO. ADULT MEALS DAY DAY INCLUDING ELDER ELDER PREPARATI ON; PER MEAL HOME CARE S5108 [facility] [address] ELDER ELDER CARE CARE CARE CLIENT PER 15 MIN HOME CARE S5108 [facility] [address] ELDER ELDER CARE CARE CARE CLIENT PER 15 MIN HOME S5170 KE [facility] 7 CO. ADULT CO. ADULT MEALS DAY DAY INCLUDING ELDER ELDER PREPARATI ON; PER MEAL DAY CARE S5100 [facility] [address] ADULT; ELDER ELDER PER 15 CARE CARE MINUTES DAY CARE S5100 [facility] [address] ADULT; ELDER ELDER PER 15 CARE CARE MINUTES HOME S5170 [facility] 7 CO. ADULT CO. ADULT MEALS DAY DAY INCLUDING ELDER ELDER PREPARATI ON; PER MEAL HOME CARE S5108 [facility] [address] ELDER ELDER CARE CARE CARE CLIENT PER 15 MIN HOME CARE S5108 [facility] [address] ELDER ELDER CARE CARE CARE CLIENT PER 15 MIN HOME S5170 [facility] 7 CO. ADULT CO. ADULT MEALS DAY DAY INCLUDING ELDER ELDER PREPARATI ON; PER MEAL DAY CARE S5100 [facility] [address] ADULT; ELDER ELDER PER 15 CARE CARE MINUTES DAY CARE S[address] [facility] [address] ADULT; ELDER ELDER PER 15 CARE CARE MINUTES HOME CARE S5108 [facility] [address] ELDER ELDER CARE CARE CARE CLIENT PER 15 MIN HOME S5170 [facility] 7 CO. ADULT CO. ADULT MEALS DAY DAY INCLUDING ELDER ELDER PREPARATI ON; PER MEAL HOME CARE S5108 [facility] 7 [facility] ELDER ELDER CARE CARE CARE CLIENT PER 15 MIN DAY CARE S5100 [facility] [address] [place] [address] ADULT; ELDER ELDER PER 15 CARE CARE MINUTES RADIOLOGI 08211 [facility] EXAM 7 MEDICAL CHEST 2 IMAGING VIEWS ASS FRONTAL&L ATERAL RADIOLOGI 58260 [facility] 7 MEDICAL EXAMINATI IMAGING ON CHEST ASS SINGLE VIEW FRONTAL RADIOLOGI 42255 [facility] C EXAM 7 PHYSICIAN CHEST 2 S, PLLC VIEWS FRONTAL&L ATERAL HOME S5170 [facility] 7 CO. ADULT CO. ADULT MEALS DAY DAY INCLUDING ELDER [place]; [place] [address] [facility] HEAD/BRAI 7 MEDICAL N W/O IMAGING CONTRAST ASS MATERIAL AMBULANCE A0429 [facility]ICE 7 AMBULANCE AMBULANCE BLS SERVICE SERVICE EMERGENCY TRANSPORT HOME CARE S5108 [facility] [address] [place] [address] ELDER ELDER CARE CARE CARE CLIENT PER 15 MIN GROUND A0425 [facility] MILEAGE 7 AMBULANCE AMBULANCE PER SERVICE SERVICE STATUTE MILE RADEX 38639 [facility] SHOULDER 7 MEDICAL COMPLETE IMAGING MINIMUM 2 ASS VIEWS RADEX HIP 61208 [facility] 7 MEDICAL UNILATERA IMAGING L WITH ASS PELVIS 2-3 VIEWS DAY CARE S5100 [facility] [address] [place] [address] ADULT; ELDER ELDER PER 15 CARE CARE MINUTES HOME CARE S5108 [facility] [address] [place] [address] ELDER ELDER CARE CARE CARE CLIENT PER 15 MIN HOME S5170 [facility] 7 CO. ADULT CO. ADULT MEALS DAY DAY INCLUDING ELDER ELDER PREPARATI ON; PER MEAL HOME S5170 [facility] 7 CO. ADULT CO. ADULT MEALS DAY DAY INCLUDING ELDER ELDER PREPARATI ON; PER MEAL HOME CARE S5108 [facility] 7 [facility] ELDER ELDER CARE CARE CARE CLIENT PER 15 MIN HOME CARE S5108 [facility] [address] [place] [address] ELDER ELDER CARE CARE CARE CLIENT PER 15 MIN HOME S5170 [facility] 7 CO. ADULT CO. ADULT MEALS DAY DAY INCLUDING ELDER ELDER PREPARATI ON; PER MEAL DAY CARE S5100 [facility] [address] ADULT; ELDER ELDER PER 15 CARE CARE MINUTES DAY CARE S5100 [facility] [address] ADULT; ELDER ELDER PER 15 CARE CARE MINUTES SCREENING G0202 [facility] 7 MEDICAL MAMMOGRAP IMAGING HY JULY ASS INCL CAD WHEN PERFORMD HOME S5170 [facility] 7 CO. ADULT CO. ADULT MEALS DAY INCLUDING ELDER ELDER PREPARATI ON; PER MEAL HOME CARE S5108 [facility] [address] ELDER ELDER CARE CARE CARE CLIENT PER 15 MIN SCREENING [id number] [facility] INC HY BI 2-VIEW BREAST INC CAD HOME S5170 KE [facility] 7 CO. ADULT CO. ADULT MEALS DAY DAY INCLUDING ELDER ELDER PREPARATI ON; PER MEAL HOME CARE S5108 [facility] [address] ELDER ELDER CARE CARE CARE CLIENT PER 15 MIN DAY CARE S5100 [address] [facility] [address] ADULT; ELDER ELDER PER 15 CARE CARE MINUTES DAY CARE S5100 [facility] [address] ADULT; ELDER ELDER PER 15 CARE CARE MINUTES HOME CARE S5108 [facility] [address] ELDER ELDER CARE CARE CARE CLIENT PER 15 MIN HOME S5170 KE [facility] 7 CO. ADULT CO. ADULT MEALS DAY DAY INCLUDING ELDER ELDER PREPARATI ON; PER MEAL HOME S5170 KE [facility] 7 CO. ADULT CO. ADULT MEALS DAY DAY INCLUDING ELDER ELDER PREPARATI ON; PER MEAL HOME CARE S5108 [facility] [address] ELDER ELDER CARE CARE CARE CLIENT PER 15 MIN NONEMERG [id number] FEDERATED FEDERATED TRNSPRT: 7 MINI-BUS TRANSPORT TRANSPORT MTN ATION SER ATION SER AREA/OTH SYS DAY CARE S5100 [facility] [address] ADULT; ELDER ELDER PER 15 CARE CARE MINUTES DAY CARE S5100 KE [facility] [address] ADULT; ELDER ELDER PER 15 CARE CARE MINUTES HOME CARE S5108 KE [facility] [address] ELDER ELDER CARE CARE CARE CLIENT PER 15 MIN HOME S5170 KE [facility] 7 CO. ADULT CO. ADULT MEALS DAY DAY INCLUDING ELDER ELDER PREPARATI ON; PER MEAL HOME S5170 [facility] 7 CO. ADULT CO. ADULT MEALS DAY DAY INCLUDING ELDER ELDER PREPARATI ON; PER MEAL HOME CARE S5108 [facility] [address] ELDER ELDER CARE CARE CARE CLIENT PER 15 MIN DAY CARE S5100 [facility] [address] ADULT; ELDER ELDER PER 15 CARE CARE MINUTES DAY CARE S5100 [facility] [address] ADULT; ELDER ELDER PER 15 CARE CARE MINUTES HOME S5170 KE [facility] 7 CO. ADULT CO. ADULT MEALS DAY DAY INCLUDING ELDER ELDER PREPARATI ON; PER MEAL HOME CARE S5108 KE [facility] [address] ELDER ELDER CARE CARE CARE CLIENT PER 15 MIN HOME CARE S5108 KE [facility] [address] ELDER ELDER CARE CARE CARE CLIENT PER 15 MIN HOME S5170 [facility] 7 CO. ADULT CO. ADULT MEALS DAY DAY INCLUDING ELDER ELDER PREPARATI ON; PER MEAL HOME S5170 [facility] 7 CO. ADULT CO. ADULT MEALS DAY DAY INCLUDING ELDER ELDER PREPARATI ON; PER MEAL HOME CARE S5108 KE [facility] [address] ELDER ELDER CARE CARE CARE CLIENT PER 15 MIN DAY CARE S5100 KE [facility] [address] ADULT; ELDER ELDER PER 15 CARE CARE MINUTES DAY CARE S5100 KE [facility] [address] ADULT; ELDER ELDER PER 15 CARE CARE MINUTES HOME CARE S5108 KE [facility] [address] ELDER ELDER CARE CARE CARE CLIENT PER 15 MIN HOME S5170 KE [facility] 7 CO. ADULT CO. ADULT MEALS DAY DAY INCLUDING ELDER ELDER PREPARATI ON; PER MEAL HOME S5170 KE [facility] 7 CO. ADULT CO. ADULT MEALS DAY DAY INCLUDING ELDER ELDER PREPARATI ON; PER MEAL HOME CARE S5108 [facility] TRA[facility] 7 [facility] ELDER ELDER CARE CARE CARE CLIENT PER 15 MIN DAY CARE S5100 [facility] [address] [place] [address] ADULT; ELDER ELDER PER 15 CARE CARE MINUTES DAY CARE S5100 [facility] [address] [place] [address] ADULT; ELDER ELDER PER 15 CARE CARE MINUTES HOME CARE S5108 [facility] TRA[facility] 7 [facility] ELDER ELDER CARE CARE CARE CLIENT PER 15 MIN HOME CARE S5108 [facility] [address] [place] [address] ELDER ELDER CARE CARE CARE CLIENT PER 15 MIN DAY CARE S5100 [facility] [address] [place] [address] ADULT; ELDER ELDER PER 15 CARE CARE MINUTES DAY CARE S5100 [facility] [address] [place] [address] ADULT; ELDER ELDER PER 15 CARE CARE MINUTES HOME CARE S5108 [facility] [address] [place] [address] ELDER ELDER CARE CARE CARE CLIENT PER 15 MIN HOME CARE S5108 [facility] [address] [place] [address] ELDER ELDER CARE CARE CARE CLIENT PER 15 MIN DAY CARE S5100 [facility] [address] [place] [address] ADULT; ELDER ELDER PER 15 CARE CARE MINUTES DAY CARE S5100 [facility] [address] [place] [address] ADULT; ELDER ELDER PER 15 CARE CARE MINUTES HOME CARE S5108 [facility] [address] [place] [address] ELDER ELDER CARE CARE CARE CLIENT PER 15 MIN HOME CARE S5108 [facility] [address] [place] [address] ELDER ELDER CARE CARE CARE CLIENT PER 15 MIN DAY CARE S5100 [facility] [address] [place] [address] ADULT; ELDER ELDER PER 15 CARE CARE MINUTES DAY CARE S5100 [facility] [address] [place] [address] ADULT; ELDER ELDER PER 15 CARE CARE MINUTES HOME CARE S5108 [facility] [address] [place] [address] ELDER ELDER CARE CARE CARE CLIENT PER 15 MIN HOME CARE S5108 [facility] [address] [place] [address] ELDER ELDER CARE CARE CARE CLIENT PER 15 MIN DAY CARE S5100 [facility] [address] [place] [address] ADULT; ELDER ELDER PER 15 CARE CARE MINUTES DAY CARE S5100 [facility] [address] [place] [address] ADULT; ELDER ELDER PER 15 CARE CARE MINUTES HOME CARE S5108 [facility] TRAINING 7 [facility] ELDER ELDER CARE CARE CARE CLIENT PER 15 MIN HOME CARE S5108 [facility] [address] [place] [address] ELDER ELDER CARE CARE CARE CLIENT PER 15 MIN DAY CARE S5100 [facility] [address] [place] [address] ADULT; ELDER ELDER PER 15 CARE CARE MINUTES DAY CARE S5100 [facility] [address] [place] [address] ADULT; ELDER ELDER PER 15 CARE CARE MINUTES HOME CARE S5108 [facility] TRAINING 7 [facility] ELDER ELDER CARE CARE CARE CLIENT PER 15 MIN HOME CARE S5108 [facility] [address] [place] [address] ELDER ELDER CARE CARE CARE CLIENT PER 15 MIN DAY CARE S5100 [facility] [address] [place] [address] ADULT; ELDER ELDER PER 15 CARE CARE MINUTES DAY CARE S5100 [facility] [address] [place] [address] ADULT; ELDER ELDER PER 15 CARE CARE MINUTES HOME CARE S5108 [facility] [address] [place] [address] ELDER ELDER CARE CARE CARE CLIENT PER 15 MIN OPHTH [address] [place] [address] [facility] COMPRHNSV ESTAB PT 1/> HOME CARE S5108 [facility] [address] [place] [address] ELDER ELDER CARE CARE CARE CLIENT PER 15 MIN DAY CARE S5100 [facility] [address] [place] [address] ADULT; ELDER ELDER [place] 15 [place] [address] [facility] THERAPY INC INC PROPHYLAX IS/DX EA HOUR BLOOD 21137 [facility] COUNT 7 [facility] COMPLETE INC INC AUTO&[place] [address] [facility] INFUSION [facility] THERAPY/P INC INC ROPHYLAXI S /DX 1ST TO 1 HR COMPREHEN 88299 [facility] SIVE 7 [facility] [address] [facility] STREPTOCO 7 [facility] CCUS INC INC GROUP A CUL BACT 14730 [facility] XCPT 7 [facility] URINE INC INC BLOOD/STO OL AEROBIC ISOL GROUND A0425 [facility] 7 AMBULANCE AMBULANCE [place] [address] [facility] INFUSION 7 [facility] THER INC INC PROPH ADDL SEQUENTIA L TO 1 HR RADIOLOGI 95641 [place] [facility] [place] 7 MEDICAL EXAMINATI IMAGING ON CHEST ASS SINGLE VIEW FRONTAL AMBULANCE A0429 [facility] SERVICE 7 AMBULANCE AMBULANCE BLS SERVICE SERVICE EMERGENCY TRANSPORT NONEMERG A0120 FEDERATED FEDERATED TRNSPRT: 7 MINI-BUS TRANSPORT [facility] HOME S5170 KE GON[facility]ALE[facility] 7 CO. ADULT CO. ADULT MEALS DAY DAY INCLUDING ELDER ELDER PREPARATI ON; PER MEAL DAY CARE S5[address] [address] ADULT; ELDER ELDER PER 15 CARE [...] PREPARATI ON; PER MEAL DAY CARE S[address] ADULT; ELDER ELDER PER 15 CARE CARE MINUTES NONEMERG A0120 FEDERATED FEDERATED TRNSPRT: 7 MINI-BUS TRANSPORT TRANSPORT [facility]/OT SYS DAY CARE S[address] ADULT; ELDER ELDER PER 15 CARE CARE MINUTES HOME S5170 [facility] DELIV 7 CO. ADULT CO. ADULT MEALS DAY DAY INCLUDING ELDER ELDER PREPARATI ON; PER MEAL HOME S5170 KE GON[facility]ALE[facility] 7 CO. ADULT CO. ADULT MEALS DAY DAY INCLUDING ELDER ELDER PREPARATI ON; PER MEAL HOME S5170 KEBRETT GONZALEZ 7 CO. ADULT CO. ADULT MEALS DAY DAY INCLUDING ELDER ELDER PREPARATI ON; PER MEAL HOME S5170 KE G[facility] 7 CO. ADULT CO. ADULT MEALS DAY DAY INCLUDING ELDER ELDER PREPARATI ON; PER MEAL DAY CARE S[address] ADULT; ELDER ELDER PER 15 CARE CARE MINUTES HOME S5170 KEBRETT GONZALEZ 7 CO. ADULT CO. ADULT MEALS DAY DAY INCLUDING ELDER ELDER PREPARATI ON; PER MEAL HOME S5170 KEBRETT GON[facility]ALE[facility] 7 CO. ADULT CO. ADULT MEALS DAY DAY INCLUDING ELDER ELDER PREPARATI ON; PER MEAL HOME S5170 KE [place] CO. ADULT CO. ADULT MEALS DAY DAY INCLUDING ELDER ELDER PREPARATI ON; PER MEAL DAY CARE S[address] ADULT; ELDER ELDER PER 15 CARE CARE MINUTES DAY CARE S[address] ADULT; ELDER ELDER PER 15 CARE CARE MINUTES HOME S5170 KE PALOMARESBRETT GONZALEZ 7 CO. ADULT CO. ADULT MEALS [...] INCLUDING ELDER ELDER PREPARATI ON; PER MEAL APPL 25430 [facility] MODALITY 7 [facility] 1/> AREAS INC INC ELEC STIMJ UNATTENDE D THERAPEUT 88894 KE [facility] IC PX 1/> 7 [facility] AREAS INC INC EACH 15 MIN EXERCISES DAY CARE S5100 KE KE SERVICES [address] [place] [address] ADULT; ELDER ELDER PER 15 CARE CARE MINUTES APPLICATI 07774 KE KE ON 7 [facility] MODALITY INC INC 1/> AREAS HOT/COLD PACKS APPL 87058 KE PALOMARESON MODALITY 7 [facility] 1/> AREAS INC INC ULTRASOUN D EA 15 MIN DAY CARE S5100 [facility] [address] [place] [address] ADULT; ELDER ELDER PER 15 CARE CARE MINUTES APPL 75993 [facility] MODALITY 7 [facility] 1/> AREAS INC INC ULTRASOUN D EA 15 MIN APPLICATI 47178 KE [facility] ON 7 [facility] MODALITY INC INC 1/> AREAS HOT/COLD PACKS THERAPEUT 08815 KE DEM[facility] IC PX 1/> 7 [facility] AREAS INC INC EACH 15 MIN EXERCISES NONEMERG A0120 FEDERATED FEDERATED TRNSPRT: 7 MINI-BUS TRANSPORT TRANSPORT MTN ATION SER ATION SER [facility]/OTH SYS APPL 07638 [facility] MODALITY 7 [facility] 1/> AREAS INC INC ELEC STIMJ UNATTENDE D HOME S5170 KE GON[facility]ALE[facility] 7 CO. ADULT CO. ADULT MEALS DAY DAY INCLUDING ELDER ELDER PREPARATI ON; PER MEAL PHYSICAL 29046 [facility] THERAPY 7 [facility] EVALUATIO INC INC N MOD COMPLEX 30 MINS DAY CARE S5100 [facility] [address] ADULT; ELDER ELDER PER 15 CARE CARE MINUTES DAY CARE S5100 [facility] [address] ADULT; ELDER ELDER PER 15 CARE CARE MINUTES HOME S5170 KE [facility] 7 CO. ADULT CO. ADULT MEALS DAY DAY INCLUDING ELDER ELDER PREPARATI ON; PER MEAL NONEMERG A0120 FEDERATED FEDERATED TRNSPRT: 7 MINI-BUS TRANSPORT TRANSPORT MTN ATION SER ATION SER [facility]/OT SYS DAY CARE S5100 [facility] [address] ADULT; ELDER ELDER PER 15 CARE CARE MINUTES DAY CARE S5100 [facility] SERVICES [address] [place] [address] ADULT; ELDER ELDER PER 15 CARE CARE MINUTES DRUG 45274 LAB OTIS LAB OTIS SCREEN 7 YFN YFN [employer] SWAPNIL LEVETIRAC ETAM NONEMERG A0120 FEDERATED FEDERATED TRNSPRT: 7 MINI-BUS TRANSPORT TRANSPORT MTN ATION SER ATION SER AREA/OTH SYS COMPREHEN 51027 COMBINED COMBINED SIVE 7 PHYSICIAN PHYSICIAN METABOLIC S LA S LA PANEL LIPID 91720 COMBINED COMBINED PANEL 7 [place] [address] COMBINED COMBINED FREE 7 PHYSICIAN [place] [address] COMBINED COMBINED THYROID 7 PHYSICIAN PHYSICIAN STIMULATI S LA S LA NG HORMONE TSH BLOOD 71580 COMBINED COMBINED COUNT 7 PHYSICIAN PHYSICIAN COMPLETE S LA S LA AUTO&AUTO DIFRNTL WBC INJECTION J0696 [facility] FRYMAN 7 PHYSICIAN CEFTRIAXO S GROUP NE SODIUM PER 250 MG INJECTION J1100 [facility] 7 PHYSICIAN DEXAMETHO S GROUP SONE SODIUM PHOSPHATE 1 MG THERAPEUT 02555 [facility] FR[facility] IC 7 PHYSICIAN PROPHYLAC S GROUP TIC/DX INJECTION SUBQ/IM FOR DIAB A5512 ELITE ELITE ONLY MX 7 MEDICAL MEDICAL DNSITY SUPPLY SUPPL[employer] FORMD PRFAB EA DIAB ONLY A5500 [facility] ELITE FIT CSTM 7 MEDICAL MEDICAL PREP&SPL SUPPLY SUPPLY [employer] DNSITY INSRT SBSQ 81233 [facility] NURSING 7 FACILITY CARE/DAY E/M STABLE 10 MIN NONEMERG A0120 FEDERATED FEDERATED TRNSPRT: 7 MINI-BUS TRANSPORT TRANSPORT MTN ATION SER ATION SER AREA/OTH SYS DRUG 23904 LAB OTIS LAB OTIS SCREEN 7 [facility] YFN [employer] SWAPNIL LEVETIRAC ETAM NONEMERG A0120 FEDERATED FEDERATED TRNSPRT: 7 MINI-BUS TRANSPORT TRANSPORT MTN ATION SER ATION SER ARE[facility]YS SBSQ 68088 [facility] FAC[facility] CARE/DAY E/M STABLE 10 MIN NONEMERG A0120 FEDERATED FEDERATED TRNSPRT: 7 MINI-BUS TRANSPORT TRANSPORT MTN ATION SER ATION SER AREA/OTH SYS NONEMERG A0120 FEDERATED FEDERATED TRNSPRT: 7 MINI-BUS TRANSPORT TRANSPORT MTN ATION SER ATION SER AREA/OTH SYS DRUG 20290 LAB OTIS LAB OTSI SCREEN 7 YFN YFN [employer] SWAPNIL LEVETIRAC ETAM NONEMERG A0120 FEDERATED FEDERATED TRNSPRT: 7 MINI-BUS TRANSPORT TRANSPORT MTN ATION SER ATION SER [facility]/OTH SYS E/M [address]75 [facility] ANNUAL 7 NURSING FACILITY ASSESS STABLE 30 MIN DRUG 16655 COMBINED COMBINED SCREEN 7 PHYSICIAN PHYSICIAN QUANTITAT S LA S LA SWAPNIL PHENYTOIN TOTAL NONEMERG A0120 FEDERATED FEDERATED TRNSPRT: 7 MINI-BUS TRANSPORT TRANSPORT MTN ATION SER ATION SER AREA/OTH SYS NONEMERG A0120 FEDERATED FEDERATED TRNSPRT: 7 MINI-BUS TRANSPORT TRANSPORT MTN ATION SER ATION SER AREA/OTH SYS GROUND A0425 [facility] 7 AMBULANCE AMBULANCE PER SERVICE SERVICE STATUTE MILE RADEX 69251 [facility] SPINE 7 MEDICAL LUMBOSACR IMAGING AL 2/3 ASS VIEWS AMBULANCE A0429 [facility] SERVICE 7 AMBULANCE AMBULANCE BLS SERVICE SERVICE EMERGENCY TRANSPORT RADEX HIP 47721 [place] [facility] 7 MEDICAL UNILATERA IMAGING L WITH ASS PELVIS 2-3 VIEWS RADIOLOGI 25643 [place] [facility] C 7 MEDICAL EXAMINATI IMAGING ON KNEE 3 ASS VIEWS DRUG 39226 LAB OTIS LAB OTIS SCREEN 7 YFN YFN [employer] SWAPNIL LEVETIRAC ETAM DRUG 89484 COMBINED COMBINED SCREEN 7 PHYSICIAN PHYSICIAN QUANTITAT S LA S LA SWAPNIL PHENYTOIN TOTAL AMBULANCE A0429 [facility] SERVICE 6 AMBULANCE AMBULANCE BLS SERVICE SERVICE EMERGENCY TRANSPORT RADIOLOGI 44923 [facility] C 6 MEDICAL EXAMINATI IMAGING ON CHEST ASS SINGLE VIEW FRONTAL GROUND A0425 [facility] MILEAGE 6 AMBULANCE AMBULANCE PER SERVICE SERVICE STATUTE MILE DRUG 78854 COMBINED COMBINED SCREEN 6 PHYSICIAN PHYSICIAN QUANTITAT S LA S LA SWAPNIL PHENYTOIN TOTAL SBSQ 89473 [facility] NUR[facility] 6 FACILITY CARE/DAY E/M STABLE 10 MIN NONEMERG A0120 FEDERATED FEDERATED TRNSPRT: 6 MINI-BUS TRANSPORT TRANSPORT [facility]/OTH SYS NONEMERG A0120 FEDERATED FEDERATED TRNSPRT: 6 MINI-BUS TRANSPORT [facility] AREA/OTH SYS GROUND A0425 [facility] MILEAGE 6 AMBULANCE AMBULANCE PER SERVICE SERVICE STATUTE MILE AMBULANCE A0429 [facility] SERVICE 6 AMBULANCE AMBULANCE BLS SERVICE SERVICE EMERGENCY TRANSPORT DRUG 07665 LAB OTIS LAB OTIS SCREEN 6 YFN YFN [employer] SWAPNIL LEVETIRAC ETAM DRUG 04054 COMBINED COMBINED SCREEN 6 PHYSICIAN PHYSICIAN QUANTITAT S LA S LA SWAPNIL PHENYTOIN TOTAL NONEMERG A0120 FEDERATED FEDERATED TRNSPRT: 6 MINI-BUS TRANSPORT TRANSPORT [facility] ARE[facility]/OTH SYS SBSQ 18493 [facility] NURSING 6 [facility] FACILITY CARE/DAY E/M STABLE 10 MIN NONEMERG A0120 FEDERATED FEDERATED TRNSPRT: 6 MINI-BUS TRANSPORT [facility]SPORT [facility] AREA/OTH SYS DRUG 14303 COMBINED COMBINED SCREEN 6 PHYSICIAN PHYSICIAN QUANTITAT S LA S LA SWAPNIL PHENYTOIN TOTAL GROUND A0425 [facility] MILEAGE 6 AMBULANCE AMBULANCE PER SERVICE SERVICE STATUTE MILE DRUG 12201 LAB OTIS LAB OTIS SCREEN 6 YFN YFN [employer] SWAPNIL LEVETIRAC ETAM AMBULANCE A0429 [facility] SERVICE 6 AMBULANCE AMBULANCE BLS SERVICE SERVICE EMERGENCY TRANSPORT AMBULANCE A0429 [facility] SERVICE 6 AMBULANCE AMBULANCE BLS SERVICE SERVICE EMERGENCY TRANSPORT GROUND A0425 [facility] MILEAGE 6 AMBULANCE AMBULANCE PER SERVICE SERVICE STATUTE MILE RADEX 59934 [facility]IN[facility] CHEUNG ALL WRIST 6 MEDICAL COMPLETE IMAGING MINIMUM 3 ASS VIEWS GLUC BLD 89409 KE KE TRIANA MNTR 6 [facility] DEV INC INC CLEARED FDA SPEC HOME USE SBSQ 27800 [facility] N[facility] 6 [facility] FACILITY CARE/DAY E/M STABLE 10 MIN GROUND A0425 [facility] AMBULANCE PER SERVICE SERVICE STATUTE MILE AMBULANCE A0429 [facility] SERVICE 6 AMBULANCE AMBULANCE BLS SERVICE SERVICE EMERGENCY TRANSPORT DRUG 65625 COMBINED COMBINED SCREEN 6 PHYSICIAN PHYSICIAN QUANTITAT S LA S LA SWAPNIL PHENYTOIN TOTAL RADIOLOGI 64167 SRIN[facility] CHEUNG ALL C 6 MEDICAL EXAMINATI IMAGING ON CHEST ASS SINGLE VIEW FRONTAL GROUND A0425 [facility] AMBULANCE PER SERVICE SERVICE STATUTE MILE AMB A0427 [facility] SERVICE 6 AMBULANCE AMBULANCE ALS SERVICE SERVICE EMERGENCY TRANSPORT LEVEL 1 ECG 46356 KE TILLMAN JR ROUTINE 6 [facility] W/LEAST P 12 LDS I&R ONLY AMB A0427 [facility] SERVICE 6 AMBULANCE AMBULANCE ALS SERVICE SERVICE EMERGENCY TRANSPORT LEVEL 1 GROUND A0425 [facility] MILEAGE 6 AMBULANCE AMBULANCE PER SERVICE SERVICE STATUTE MILE DRUG 43008 COMBINED COMBINED SCREEN 6 PHYSICIAN PHYSICIAN QUANTITAT S LA S LA SWAPNIL PHENYTOIN TOTAL SBSQ 19170 [facility] NURSING 6 [facility] FACILITY CARE/DAY E/M STABLE 10 MIN DRUG 96354 COMBINED COMBINED SCREEN 6 PHYSICIAN PHYSICIAN QUANTITAT S LA S LA SWAPNIL PHENYTOIN TOTAL DRUG 07975 LAB OTIS LAB OTIS SCREEN 6 YFN YFN [employer] SWAPNIL LEVETIRAC ETAM GROUND A0425 [facility] MILEAGE 6 AMBULANCE AMBULANCE PER SERVICE SERVICE STATUTE MILE AMBULANCE A0429 [facility] SERVICE 6 AMBULANCE AMBULANCE BLS SERVICE SERVICE EMERGENCY TRANSPORT AMBULANCE A0429 [facility] SERVICE 6 AMBULANCE AMBULANCE BLS SERVICE SERVICE EMERGENCY TRANSPORT GROUND A0425 [facility] MILEAGE 6 AMBULANCE AMBULANCE PER SERVICE SERVICE STATUTE MILE DRUG 64524 LAB OTIS LAB OTIS SCREEN 6 YFN YFN [employer] SWAPNIL LEVETIRAC ETAM NONEMERG A0120 FEDERATED FEDERATED TRNSPRT: 6 MINI-BUS TRANSPORT TRANSPORT [facility] AREA/OTH SYS DRUG 50997 KE [facility] SCREEN 6 [facility] QUANTITAT INC INC SWAPNIL PHENYTOIN TOTAL COLLECTIO 69976 KE DEM[facility] N VENOUS 6 [facility] BLOOD INC INC VENIPUNCT URE COMPREHEN 25512 KE [facility] SIVE 6 [facility] METABOLIC INC INC PANEL GROUND A0425 SISI [facility] MILEAGE 6 AMBULANCE AMBULANCE PER SERVICE SERVICE STATUTE MILE AMB A0427 [facility] SERVICE 6 AMBULANCE AMBULANCE ALS SERVICE SERVICE [place] [address] [place] [facility] HEAD/BRAI 6 [facility] N W/[place] [address] [place] [facility] ALL CERVICAL 6 MEDICAL SPINE W/O IMAGING CONTRAST ASS MATERIAL BLOOD 65013 KE [facility] COUNT 6 [facility] COMPLETE INC INC AUTO&AUTO DIFRNTL WBC AMBULANCE A0429 [facility] SERVICE 6 AMBULANCE AMBULANCE BLS SERVICE SERVICE EMERGENCY TRANSPORT GROUND A0425 [facility] MILEAGE 6 AMBULANCE AMBULANCE PER SERVICE SERVICE STATUTE MILE GROUND A0425 [facility] MILEAGE 6 AMBULANCE AMBULANCE PER SERVICE SERVICE STATUTE MILE SIMPLE 09154 [facility] PHYSICIAN U BEN SCALP/NEC S, PLLC K/AX/TEJINDER T/TRUNK 2.5CM/< AMBULANCE A0429 [facility] SERVICE 6 AMBULANCE AMBULANCE BLS SERVICE SERVICE EMERGENCY TRANSPORT [facility] [facility] 6 MEDICAL FIDEL DETECTION IMAGING ASS SCREENING MAMMOGRAP HY NONEMERG A0120 FEDERATED FEDERATED TRNSPRT: 6 MINI-BUS TRANSPORT [facility] S[facility]EN[facility] G0202 [place] DONNE[place] 6 MEDICAL FIDEL MAMMOGRAP IMAGING HY JULY ASS INCL CAD WHEN PERFORMD DRUG 24288 LAB OTIS LAB OTIS SCREEN 6 YFN YFN [employer] [place] [address] SRINATH CHEUNG ALL HEAD/BRAI 6 MEDICAL N W/[place] [address] SRINATH CHEUNG ALL CERVICAL 6 MEDICAL SPINE W/O IMAGING CONTRAST ASS MATERIAL AMBULANCE A0429 [facility] SERVICE 6 AMBULANCE AMBULANCE S SERVICE SERVICE EMERGENCY TRANSPORT GROUND A0425 [facility] MILEAGE 6 AMBULANCE AMBULANCE PER SERVICE SERVICE STATUTE MILE CT LUMBAR 34280 [facility] ALL SPINE 6 MEDICAL W/O IMAGING CONTRAST ASS MATERIAL RADIOLOGI 02369 [facility] C 6 MEDICAL EXAMINATI IMAGING ON TIBIA ASS & FIBULA 2 VIEWS NONEMERG A0120 FEDERATED FEDERATED TRNSPRT: 6 MINI-BUS TRANSPORT TRANSPORT [facility] NONEMERG A0120 FEDERATED FEDERATED TRNSPRT: 6 MINI-BUS TRANSPORT TRANSPORT [facility] GROUND A0425 [facility] MILEAGE 6 AMBULANCE AMBULANCE PER SERVICE SERVICE STATUTE MILE AMBULANCE A0429 [facility] SERVICE 6 AMBULANCE AMBULANCE S SERVICE SERVICE EMERGENCY TRANSPORT AMBULANCE A0429 [facility] SERVICE 6 AMBULANCE AMBULANCE S SERVICE SERVICE EMERGENCY TRANSPORT GROUND A0425 [facility] MILEAGE 6 AMBULANCE AMBULANCE PER SERVICE SERVICE STATUTE MILE GROUND A0425 [facility] MILEAGE 6 AMBULANCE AMBULANCE PER SERVICE SERVICE STATUTE MILE AMB A0427 SISI [facility] SERVICE 6 AMBULANCE AMBULANCE ALS SERVICE SERVICE [place] [address] [place] [address] SRINATH GALLAGHERUTCHER HEAD/BRAI 6 MEDICAL FIDEL N W/O IMAGING CONTRAST ASS MATERIAL NONEMERG A0120 FEDERATED FEDERATED TRNSPRT: 6 MINI-BUS TRANSPORT TRANSPORT [facility] AMB A0427 [facility] SERVICE 6 AMBULANCE AMBULANCE ALS SERVICE SERVICE EMERGENCY TRANSPORT LEVEL 1 GROUND A0425 S[facility] MILEAGE 6 AMBULANCE AMBULANCE PER SERVICE SERVICE STATUTE MILE GROUND A0425 [facility]LEAGE 6 AMBULANCE AMBULANCE PER SERVICE SERVICE STATUTE MILE AMB A0427 [facility] SERVICE 6 AMBULANCE AMBULANCE ALS SERVICE SERVICE EMERGENCY TRANSPORT LEVEL 1 RADEX 15871 KE [facility] SPINE 6 [facility] LUMBOSACR INC INC AL MINIMUM 4 VIEWS RADIOLOGI 93665 KE [facility] C 6 [facility] EXAMINATI INC INC ON PELVIS 1/2 VIEWS AMBULANCE A0429 [facility] SERVICE 6 AMBULANCE AMBULANCE BLS SERVICE SERVICE EMERGENCY TRANSPORT GROUND A0425 [facility] MILEAGE 6 AMBULANCE AMBULANCE PER SERVICE SERVICE STATUTE MILE NONEMERG A0120 FEDERATED FEDERATED TRNSPRT: 6 MINI-BUS TRANSPORT [facility]SP[facility] A0427 [facility] SERVICE 6 AMBULANCE AMBULANCE ALS SERVICE SERVICE EMERGENCY TRANSPORT LEVEL 1 GROUND A0425 [facility] MILEAGE 6 AMBULANCE AMBULANCE PER SERVICE SERVICE STATUTE [facility] A0120 FEDERATED FEDERATED TRNSPRT: 6 MINI-BUS TRANSPORT TRANSPORT [facility] DRUG 01344 LAB OTIS LAB OTIS SCREEN 6 YFN YFN [employer] SWAPNIL LEVETIRAC [facility] A0120 FEDERATED FEDERATED TRNSPRT: 6 MINI-BUS TRANSPORT TRANSPORT [facility] GROUND A0425 [facility] MILEAGE 6 AMBULANCE AMBULANCE PER SERVICE SERVICE STATUTE MILE [facility] A0427 [facility] SERVICE 6 AMBULANCE AMBULANCE ALS SERVICE SERVICE EMERGENCY TRANSPORT LEVEL 1 AMB A0427 [facility] SERVICE 6 AMBULANCE AMBULANCE ALS SERVICE SERVICE EMERGENCY TRANSPORT LEVEL 1 GROUND A0425 SISI [facility] MILEAGE 6 AMBULANCE AMBULANCE PER SERVICE SERVICE STATUTE MILE GROUND A0425 [place] MILEAGE 6 MEDICAL MEDICAL PER RESPONSE RESPONSE STATUTE MILE [facility] [address] [place]RI[place] CEPHALOGR 6 MEDICAL [place] AM W/REC SERV AWAKE&CARLIE FOUNDATIO WSY N AMB A0422 [place] OXYGEN&O2 6 MEDICAL MEDICAL SUPPLIES RESPONSE RESPONSE LIFE SUSTAININ G SITUATION AMBULANCE A0429 [facility] SERVICE 6 AMBULANCE AMBULANCE BLS SERVICE SERVICE EMERGENCY TRANSPORT GROUND A0425 [facility] LAIRD MILEAGE 6 AMBULANCE AMBULANCE PER SERVICE SERVICE STATUTE MILE AMB A0427 [facility] SERVICE 6 AMBULANCE AMBULANCE ALS SERVICE SERVICE EMERGENCY TRANSPORT LEVEL 1 RAD[facility]OLOGI 23060 [facility] ALL C 6 MEDICAL EXAMINATI IMAGING ON KNEE ASS 1/2 VIEWS NONEMERG A0120 FEDERATED FEDERATED TRNSPRT: 6 [facility]I-BUS TRANSPORT TRANSPORT MTN ATION SER ATION SER AREA/OTH SYS GROUND A0425 SISI SISI MILEAGE 6 AMBULANCE AMBULANCE PER SERVICE SERVICE STATUTE MILE AMBULANCE A0429 [facility] SERVICE 6 AMBULANCE AMBULANCE BLS [place] [address] [facility] HEAD/BRAI 6 [facility] N W/[place] [address] [facility] DEM[facility] CERVICAL 6 [facility] SPINE W/O INC INC CONTRAST MATERIAL GROUND A0425 SISI LAIRD MILEAGE 6 AMBULANCE AMBULANCE PER SERVICE SERVICE STATUTE MILE AMB A0427 [facility] LA[facility] SERVICE 6 AMBULANCE AMBULANCE ALS SERVICE SERVICE EMERGENCY TRANSPORT LEVEL 1 AMB A0427 [facility] LAIRD SERVICE 6 AMBULANCE AMBULANCE ALS SERVICE SERVICE EMERGENCY TRANSPORT LEVEL 1 GROUND A0425 SISI LAIRD MILEAGE 6 AMBULANCE AMBULANCE PER SERVICE SERVICE STATUTE MILE GROUND A0425 SISI SISI MILEAGE 6 AMBULANCE AMBULANCE PER SERVICE SERVICE STATUTE MILE AMBULANCE A0429 SISI LAIRD SERVICE 6 AMBULANCE AMBULANCE BLS SERVICE SERVICE EMERGENCY TRANSPORT RADIOLOGI 50505 [place] [facility] C 6 MEDICAL EXAMINATI IMAGING [place] [address] [facility] ALL HEAD/BRAI 6 MEDICAL N W/[place] [address] KE [place] HEAD/BRAI 6 [facility] N W/O INC INC CONTRAST MATERIAL RADIOLOGI 82837 [facility] BEINE[facility] C 6 MEDICAL EXAMINATI IMAGING ON CHEST ASS SINGLE VIEW FRONTAL GROUND A0425 [facility]ANCE AM[facility]ULANCE PER SERVICE SERVICE STATUTE MILE AMB A0427 [facility] SERVICE 6 AMBULANCE AMBULANCE ALS SERVICE SERVICE EMERGENCY TRANSPORT LEVEL 1 NONEMERG A0120 FEDERATED FEDERATED TRNSPRT: 6 MINI-BUS TRANSPORT TRANSPORT [facility] AMB A0427 [facility] SERVICE 6 AMBULANCE AMBULANCE ALS SERVICE SERVICE EMERGENCY TRANSPORT LEVEL 1 GROUND A0425 [facility] [place] [address] [facility] CERVICAL 6 [facility] SPINE W/[place] [address] KE [facility] HEAD/BRAI 6 [facility] N W/O INC INC CONTRAST MATERIAL NONEMERG A0120 FEDERATED FEDERATED TRNSPRT: 6 MINI-BUS TRANSPORT TRANSPORT [facility]OT SYS QUANTITAT 45526 KE DEMPSEY ION DRUG 6 [facility] NOT INC INC ELSEWHERE SPECIFIED DRUG 65541 [facility] QUANTITAT INC INC SWAPNIL PHENYTOIN TOTAL URNLS DIP 12314 [facility] STICK/TAB INC INC LET REAGENT AUTO MICROSCOP Y BLOOD 26172 [facility] COUNT 6 [facility] COMPLETE INC INC AUTO&AUTO DIFRNTL WBC BLOOD 72096 [facility] COUNT 6 [facility] COMPLETE INC INC AUTO&AUTO DIFRNTL WBC DRUG 38831 [facility] QUANTITAT INC INC SWAPNIL PHENYTOIN TOTAL COMPREHEN 16321 [facility] SIVE [facility] METABOLIC INC INC PANEL COLLECTIO 67424 COMBINED COMBINED N VENOUS 6 PHYSICIAN PHYSICIAN B[place] [address] [facility] HEAD/BRAI [facility] N W/O INC INC CONTRAST MATERIAL ELECTROEN 34833 [facility] CEPHALOGR 6 N N AM EXTEND COMMUNTIY COMMUNTIY HOSPITA HOSPITA MONITORIN G 41-60 MIN NONEMERG A0120 FEDERATED FEDERATED TRNSPRT: 6 MINI-BUS TRANSPORT [facility] ELECTROEN 04260 REJI HUTCHINS JAVIER CEPHALOGR 6 N AM W/REC NEUROLOGY AWAKE&ASL EEP DRUG 08615 [facility] QUANTITAT INC INC SWAPNIL PHENYTOIN TOTAL DRUG 61325 [facility] QUANTITAT INC INC SWAPNIL PHENYTOIN TOTAL COMPREHEN 50229 [facility] METABOLIC INC INC PANEL RADIOLOGI 05524 [facility] C [facility] EXAMINATI [place] [address] [facility] HEAD/BRAI 6 [facility] N W/O INC INC CONTRAST MATERIAL BLOOD 65949 [facility] COUNT 6 [facility] COMPLETE INC INC AUTO&AUTO DIFRNTL WBC NONEMERG A0120 FEDERATED FEDERATED TRNSPRT: 5 MINI-BUS TRANSPORT TRANSPORT [facility] CONTINUOU E0601 ZULEYMA AMOR S 5 HOME HOME POSITIVE MEDICAL MEDICAL AIRWAY EQUIPME EQUIPME PRESSURE DEVICE NONEMERG A0120 FEDERATED FEDERATED TRNSPRT: 5 MINI-BUS TRANSPORT TRANSPORT MTN [facility] COMPREHEN 96848 [facility] SIVE [facility] METABOLIC INC INC PANEL DRUG 07759 [facility] QUANTITAT INC INC SWAPNIL PHENYTOIN TOTAL URNLS DIP 06217 [facility] STICK/TAB INC INC LET REAGENT AUTO MICROSCOP Y BLOOD 31515 [facility] COUNT 5 [facility] COMPLETE INC INC AUTO&AUTO DIFRNTL WBC GLUC BLD 44248 [facility] GLUC MNTR 5 [facility] DEV INC INC CLEARED FDA SPEC HOME USE GLUCOSE 27806 [facility] QUANTITAT 5 [facility] SWAPNIL BLOOD INC INC XCPT REAGENT STRIP BLOOD 47549 [facility] COUNT 5 N N COMPLETE COMMUNTIY COMMUNTIY AUTO&AUTO HOSPITA HOSPITA DIFRNTL WBC DRUG 60484 [facility] SCREEN 5 N N QUANTITAT COMMUNTIY COMMUNTIY SWAPNIL HOSPITA HOSPITA PHENYTOIN TOTAL COMPREHEN 16666 [facility] SIVE 5 N N METABOLIC COMMUNTIY COMMUNTIY PANEL HOSPITA HOSPITA COLLECTIO 44173 [facility] N VENOUS 5 N N BLOOD COMMUNTIY COMMUNTIY VENIPUNCT HOSPITA HOSPITA URE NONEMERG A0120 FEDERATED FEDERATED TRNSPRT: 5 MINI-BUS TRANSPORT TRANSPORT MTN [facility]/OTH SYS NONEMERG A0120 FEDERATED FEDERATED TRNSPRT: 5 MINI-BUS TRANSPORT TRANSPORT MTN [facility]/OTH SYS CONTINUOU E0601 ZULEYMA AMOR S 5 HOME HOME POSITIVE MEDICAL MEDICAL AIRWAY EQUIPME EQUIPME PRESSURE DEVICE GLUC BLD 43842 [facility] GLUC MNTR 5 [facility] DEV INC INC CLEARED FDA SPEC HOME USE COLONOSCO 47899 [facility] PY FLX DX 5 [facility] W/[place]LL[place] [address] [facility] INFUSION 5 [facility] THERAPY/P INC INC ROPHYLAXI S /DX 1ST TO 1 [place] [address] [facility] INFUSION 5 [facility] THERAPY INC INC PROPHYLAX IS/DX EA HOUR COLLECTIO 37776 COMBINED COMBINED N VENOUS 5 PHYSICIAN PHYSICIAN BLOOD S LA S LA VENIPUNCT URE DRUG 84824 COMBINED COMBINED SCREEN 5 PHYSICIAN PHYSICIAN QUANTITAT S LA S LA SWAPNIL PHENYTOIN TOTAL DRUG 96600 [facility] S[facility] QUANTITAT INC INC SWAPNIL PHENYTOIN TOTAL COMPREHEN 16623 [facility] SIVE 5 [facility] [place] [address] [facility] INFUSION 5 [facility] THERAPY/P INC INC ROPHYLAXI S /DX 1ST TO 1 HR BLOOD 69205 [facility] COUNT 5 [facility] COMPLETE INC INC AUTO&AUTO DIFRNTL WBC NONEMERG A0120 FEDERATED FEDERATED TRNSPRT: 5 MINI-BUS TRANSPORT TRANSPORT [facility] CONTINUOU E0601 ZULEYMA BERNARDORELL S 5 HOME HOME POSITIVE MEDICAL MEDICAL AIRWAY EQUIPME EQUIPME PRESSURE DEVICE FULL FACE A7030 ZULEYMA ZULEYMA MASK 5 HOME HOME USED MEDICAL MEDICAL W/POS EQUIPME EQUIPME ARWAY PRESS DEVICE EA FILTER A7038 ZULEYMA ZULEYMA DISPBL 5 HOME HOME USED MEDICAL MEDICAL W/POS EQUIPME EQUIPME ARWAY PRESSURE DEVICE FILTER A7039 ZULEYMA ZULEYMA NON 5 HOME HOME DISPBL MEDICAL MEDICAL USED EQUIPME EQUIPME W/POS ARWAY PRESS DEVICE HEADGEAR A7035 ZULEYMA AMOR USED 5 HOME HOME W/POSITIV MEDICAL MEDICAL E AIRWAY EQUIPME EQUIPME PRESSURE DEVICE TUBING A7037 ZULEYMA ZULEYMA USED WITH 5 HOME HOME POSITIVE MEDICAL MEDICAL AIRWAY EQUIPME EQUIPME PRESSURE DEVICE HUMDIFIR E0562 ZULEYMAMERARI AMOR HEATED 5 HOME HOME USED MEDICAL MEDICAL W/POS EQUIPME EQUIPME ARWAY PRESSURE DEVICE IIV4 VACC 17561 [facility] VIRUS 0.5 HL[facility] DEPT ML DOS BALTAZAR FOR IM USE CUL BACT 98227 COMBINED COMBINED XCPT 5 PHYSICIAN PHYSICIAN URINE S LA S LA BLOOD/STO OL AEROBIC ISOL NONEMERG A0120 FEDERATED FEDERATED TRNSPRT: 5 MINI-BUS TRANSPORT TRANSP[facility] NONEMERG A0120 FEDERATED FEDERATED TRNSPRT: 5 MINI-BUS TRANSPORT TRANSPORT [facility] NERVE 16154 [facility] JAVIER CONDUCTIO 5 N N STUDIES NEUROLOGY 9-10 STUDIES NEEDLE 88077 [facility] EMG EA 5 N EXTREMTY NEUROLOGY W/PARASPI NL AREA COMPLETE NONEMERG A0120 FEDERATED FEDERATED TRNSPRT: 5 MINI-BUS TRANSPORT TRANSPORT [facility] NONEMERG A0120 FEDERATED FEDERATED TRNSPRT: 5 MINI-BUS TRANSPORT TRANSPORT [facility] GROUND A0425 [facility] MILEAGE 5 AMBULANCE AMBULANCE PER SERVICE SERVICE STATUTE MILE RADIOLOGI 94625 [place] C EXAM 5 MEDICAL FIDEL CHEST 2 IMAGING VIEWS ASS FRONTAL&L ATERAL AMBULANCE A0429 [facility] SERVICE 5 AMBULANCE AMBULANCE BLS SERVICE SERVICE EMERGENCY TRANSPORT NONEMERG A0120 FEDERATED FEDERATED TRNSPRT: 5 MINI-BUS TRANSPORT TRANSPORT [facility] NONEMERG A0120 FEDERATED FEDERATED TRNSPRT: 5 MINI-BUS TRANSPORT TRANSPORT MT[facility] NONEMERG A0120 FEDERATED FEDERATED TRNSPRT: 5 MINI-BUS TRANSPORT TRANSPORT [facility] MRI 06407 [facility] TRA SPINAL 5 [place] CANAL ORTHOPAED LUMBAR ICS PLC W/O CONTRAST MATERIAL DEBRIDEME 15897 [facility] DONG NT NAIL 5 JAM JAM ANY METHOD 1-5 TRIMMING 67370 IKER HANSENS NONDYSTRO 5 JAM JAM PHIC NAILS ANY NUMBER PARING/CU 17278 IKER DONG TTING 5 JAM JAM BENIGN HYPERKERA TOTIC LESION >4 RADEX 46629 [facility] TRA SPINE 5 [place] LUMBOSACR ORTHOPAED AL 2/3 [facility] VIEWS NONEMERG A0120 FEDERATED FEDERATED TRNSPRT: 5 MINI-BUS TRANSPORT TRANSPORT [facility] NONEMERG A0120 FEDERATED FEDERATED TRNSPRT: 5 MINI-BUS TRANSPORT TRANSPORT [facility] SBSQ 22828 [facility] DAMIAN NURSING 5 [facility] FACILITY CARE/DAY E/M STABLE 10 MIN SBSQ 49556 ARNBRAIN ADRIENBRAIN NURSING 5 [facility] FACILITY CARE/DAY E/M STABLE 10 MIN INITIAL 25087 ARNBRAIN RICKIE NURSING 5 [facility] FACILITY CARE/DAY 25 MINUTES DAY CARE S5[address] ADULT; ADULT ADULT PER 15 DAY CARE DAY CARE MINUTES DAY CARE S5100 THE THE SERVICES [address] [place] [address] ADULT; ADULT ADULT PER 15 DAY CARE DAY CARE MINUTES DAY CARE S5100 THE THE SERVICES [address] [place] [address] ADULT; ADULT ADULT PER 15 DAY CARE DAY CARE MINUTES DAY CARE S5100 THE THE SERVICES [address] [place] [address] ADULT; ADULT ADULT PER 15 DAY CARE DAY CARE MINUTES DAY CARE S5100 THE THE SERVICES [address] [place] [address] ADULT; ADULT ADULT PER 15 DAY CARE DAY CARE MINUTES DAY CARE S5100 THE THE SERVICES [address] [place] [address] ADULT; ADULT ADULT PER 15 DAY CARE DAY CARE MINUTES DAY CARE S5100 THE THE SERVICES [address] [place] [address] ADULT; ADULT ADULT PER 15 DAY CARE DAY CARE MINUTES DAY CARE S5100 THE THE SERVICES [address] [place] [address] ADULT; ADULT ADULT PER 15 DAY CARE DAY CARE MINUTES DAY CARE S5[address] ADULT; ADULT ADULT PER 15 DAY CARE DAY CARE MINUTES DAY CARE S5[address] ADULT; ADULT ADULT PER 15 DAY CARE DAY CARE MINUTES DAY CARE S5[address] ADULT; ADULT ADULT PER 15 DAY CARE DAY CARE MINUTES DAY CARE S[address] ADULT; ADULT ADULT PER 15 DAY CARE DAY CARE MINUTES DAY CARE S[address] ADULT; ADULT ADULT PER 15 DAY CARE DAY CARE MINUTES DAY CARE S5100 THE THE SERVICES [address] [place] [address] ADULT; ADULT ADULT PER 15 DAY CARE DAY CARE MINUTES DAY CARE S[address] ADULT; ADULT ADULT PER 15 DAY CARE DAY CARE MINUTES DAY CARE S5100 THE THE SERVICES [address] [place] [address] ADULT; ADULT ADULT PER 15 DAY CARE DAY CARE MINUTES DAY CARE S5100 THE THE SERVICES [address] [place] [address] ADULT; ADULT ADULT PER 15 DAY CARE DAY CARE MINUTES DAY CARE S5100 THE THE SERVICES [address] [place] [address] ADULT; ADULT ADULT PER 15 DAY CARE DAY CARE MINUTES DAY CARE S5100 THE THE SERVICES [address] [place] [address] ADULT; ADULT ADULT PER 15 DAY CARE DAY CARE MINUTES DAY CARE S5100 THE THE SERVICES [address] [place] [address] ADULT; ADULT ADULT PER 15 DAY CARE DAY CARE MINUTES DAY CARE S5100 THE THE SERVICES [address] [place] [address] ADULT; ADULT ADULT PER 15 DAY CARE DAY CARE MINUTES DAY CARE S5100 THE THE SERVICES [address] [place] [address] ADULT; ADULT ADULT PER 15 DAY CARE DAY CARE MINUTES DAY CARE S5100 THE THE SERVICES [address] [place] [address] ADULT; ADULT ADULT PER 15 DAY CARE DAY CARE MINUTES DAY CARE S5100 THE THE SERVICES [address] [place] [address] ADULT; ADULT ADULT PER 15 DAY CARE DAY CARE MINUTES DAY CARE S5100 THE THE SERVICES [address] [place] [address] ADULT; ADULT ADULT PER 15 DAY CARE DAY CARE MINUTES DAY CARE S5100 THE THE SERVICES [address] [place] [address] ADULT; ADULT ADULT PER 15 DAY CARE DAY CARE MINUTES DAY CARE S[address] ADULT; ADULT ADULT PER 15 DAY CARE DAY CARE MINUTES DAY CARE S[address] ADULT; ADULT ADULT PER 15 DAY CARE DAY CARE MINUTES DAY CARE S[address] ADULT; ADULT ADULT PER 15 DAY CARE DAY CARE MINUTES DAY CARE S[address] ADULT; ADULT ADULT PER 15 DAY CARE DAY CARE MINUTES DAY CARE S5100 THE THE SERVICES [address] [place] [address] ADULT; ADULT ADULT PER 15 DAY CARE DAY CARE MINUTES DAY CARE S5100 THE THE SERVICES [address] [place] [address] ADULT; ADULT ADULT PER 15 DAY CARE DAY CARE MINUTES DAY CARE S5100 THE THE SERVICES [address] [place] [address] ADULT; ADULT ADULT PER 15 DAY CARE DAY CARE MINUTES DAY CARE S[address] ADULT; ADULT ADULT PER 15 DAY CARE DAY CARE MINUTES DAY CARE S5[address] ADULT; ADULT ADULT PER 15 DAY CARE DAY CARE MINUTES DAY CARE S[address] ADULT; ADULT ADULT PER 15 DAY CARE DAY CARE MINUTES DAY CARE S5[address] ADULT; ADULT ADULT PER 15 DAY CARE DAY CARE MINUTES DAY CARE S[address] ADULT; ADULT ADULT PER 15 DAY CARE DAY CARE MINUTES NONEMERGE A0100 [facility] NCY 5 INC TRANSPORT TRANSPORT REGION 9 ATION CO ATION; L TAXI DAY CARE S5100 [address] ADULT; ADULT ADULT PER 15 DAY CARE DAY CARE MINUTES DAY CARE S5[address] ADULT; ADULT ADULT PER 15 DAY CARE DAY CARE MINUTES DAY CARE S[address] ADULT; ADULT ADULT PER 15 DAY CARE DAY CARE MINUTES DAY CARE S[address] ADULT; ADULT ADULT PER 15 DAY CARE DAY CARE MINUTES DAY CARE S[address] ADULT; ADULT ADULT PER 15 DAY CARE DAY CARE MINUTES DAY CARE S[address] ADULT; ADULT ADULT PER 15 DAY CARE DAY CARE MINUTES DAY CARE S5[address] ADULT; ADULT ADULT PER 15 DAY CARE DAY CARE MINUTES DAY CARE S[address] ADULT; ADULT ADULT PER 15 DAY CARE DAY CARE MINUTES DAY CARE S[address] ADULT; ADULT ADULT PER 15 DAY CARE DAY CARE MINUTES DAY CARE S[address] ADULT; ADULT ADULT PER 15 DAY CARE DAY CARE MINUTES DAY CARE S[address] ADULT; ADULT ADULT PER 15 DAY CARE DAY CARE MINUTES DAY CARE S[address] ADULT; ADULT ADULT PER 15 DAY CARE DAY CARE MINUTES DAY CARE S[address] ADULT; ADULT ADULT PER 15 DAY CARE DAY CARE MINUTES DAY CARE S[address] ADULT; ADULT ADULT PER 15 DAY CARE DAY CARE MINUTES DAY CARE S5[address] ADULT; ADULT ADULT PER 15 DAY CARE DAY CARE MINUTES POLYSOM [address] 6/>YRS 5 CANDACE CANDACE SLEEP 4/> [facility] AD[facility] 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 ALVARO ATTND DAY CARE S5[address] ADULT; ADULT ADULT PER 15 DAY CARE DAY CARE MINUTES DAY CARE S5[address] ADULT; ADULT ADULT PER 15 DAY CARE DAY CARE MINUTES DAY CARE S5[address] ADULT; ADULT ADULT PER 15 DAY CARE DAY CARE MINUTES DAY CARE S[address] ADULT; ADULT ADULT PER 15 DAY CARE DAY CARE MINUTES NONEMERGE A0100 [facility] NCY 5 INC TRANSPORT TRANSPORT REGION 9 ATION CO ATION; L TAXI DAY CARE S5100 [address] ADULT; ADULT ADULT PER 15 DAY CARE DAY CARE MINUTES DAY CARE S5[address] ADULT; ADULT ADULT PER 15 DAY CARE DAY CARE MINUTES DAY CARE S[address] ADULT; ADULT ADULT PER 15 DAY CARE DAY CARE MINUTES DAY CARE S[address] ADULT; ADULT ADULT PER 15 DAY CARE DAY CARE MINUTES DAY CARE S[address] ADULT; ADULT ADULT PER 15 DAY CARE DAY CARE MINUTES DAY CARE S[address] ADULT; ADULT ADULT PER 15 DAY CARE DAY CARE MINUTES DAY CARE S[address] ADULT; ADULT ADULT PER 15 DAY CARE DAY CARE MINUTES DAY CARE S[address] ADULT; ADULT ADULT PER 15 DAY CARE DAY CARE MINUTES ECG 06549 EXPRESS EXPRESS ROUTINE 5 MOBILE MOBILE ECG DIAGNOSTI DIAGNOSTI W/LEAST C SE C SE 12 LDS TRCG ONLY W/O I&R DAY CARE S5[address] ADULT; ADULT ADULT PER 15 DAY CARE DAY CARE MINUTES DAY CARE S5[address] ADULT; ADULT ADULT PER 15 DAY CARE DAY CARE MINUTES NONEMERGE A0100 [facility] [employer] NCY 5 INC TRANSPORT TRANSPORT REGION 9 ATION CO ATION; L TAXI DAY CARE S5[address] ADULT; ADULT ADULT PER 15 DAY CARE DAY CARE MINUTES DAY CARE S5[address] ADULT; ADULT ADULT PER 15 DAY CARE DAY CARE MINUTES DAY CARE S[address] ADULT; ADULT ADULT PER 15 DAY CARE DAY CARE MINUTES DAY CARE S[address] ADULT; ADULT ADULT PER 15 DAY CARE DAY CARE MINUTES DAY CARE S[address] ADULT; ADULT ADULT PER 15 DAY CARE DAY CARE MINUTES DAY CARE S[address] ADULT; ADULT ADULT PER 15 DAY CARE DAY CARE MINUTES DAY CARE S[address] ADULT; ADULT ADULT PER 15 DAY CARE DAY CARE MINUTES DAY CARE S[address] ADULT; ADULT ADULT PER 15 DAY CARE DAY CARE MINUTES DAY CARE S[address] ADULT; ADULT ADULT PER 15 DAY CARE DAY CARE MINUTES NONEMERGE A0100 [facility] INC TRANSPORT TRANSPORT REGION 9 ATION CO ATION; L TAXI GENERAL 27491 [facility] HEALTH 5 YFN YFN PANEL [facility]INGS HOLDINGS LIPID 16605 [facility] PANEL [facility] DAY CARE S[address] ADULT; ADULT ADULT PER 15 DAY CARE DAY CARE MINUTES HEMOGLOBI 84618 [facility] N [facility] [place] [address] [address] [facility] THYROXINE 5 YFN YFN TOTAL HOLDINGS HOLDINGS DAY CARE S[address] ADULT; ADULT ADULT PER 15 DAY CARE DAY CARE MINUTES DAY CARE S[address] ADULT; ADULT ADULT PER 15 DAY CARE DAY CARE MINUTES DAY CARE S[address] ADULT; ADULT ADULT PER 15 DAY CARE DAY CARE MINUTES NONEMERGE A0100 [facility] MOY 5 INC TRANSPORT TRANSPORT REGION 9 ATION CO ATION; L TAXI DAY CARE S5[address] ADULT; ADULT ADULT PER 15 DAY CARE DAY CARE MINUTES DAY CARE S[address] ADULT; ADULT ADULT PER 15 DAY CARE DAY CARE MINUTES DAY CARE S[address] ADULT; ADULT ADULT PER 15 DAY CARE DAY CARE MINUTES DAY CARE S[address] ADULT; ADULT ADULT PER 15 DAY CARE DAY CARE MINUTES DAY CARE S[address] ADULT; ADULT ADULT PER 15 DAY CARE DAY CARE MINUTES DAY CARE S[address] ADULT; ADULT ADULT PER 15 DAY CARE DAY CARE MINUTES DAY CARE S[address] ADULT; ADULT ADULT PER 15 DAY CARE DAY CARE MINUTES DAY CARE S[address] ADULT; ADULT ADULT PER 15 DAY CARE DAY CARE MINUTES DAY CARE S[address] ADULT; ADULT ADULT PER 15 DAY CARE DAY CARE MINUTES DAY CARE S[address] ADULT; ADULT ADULT PER 15 DAY CARE DAY CARE MINUTES DAY CARE S[address] ADULT; ADULT ADULT PER 15 DAY CARE DAY CARE MINUTES DAY CARE S[address] ADULT; ADULT ADULT PER 15 DAY CARE DAY CARE MINUTES NONEMERGE A0100 [facility] NCY 5 INC TRANSPORT TRANSPORT REGION 9 ATION CO ATION; L TAXI DAY CARE S5[address] ADULT; ADULT ADULT PER 15 DAY CARE DAY CARE MINUTES DAY CARE S5100 THE THE SERVICES [address] [place] [address] ADULT; ADULT ADULT PER 15 DAY CARE DAY CARE MINUTES DAY CARE S[address] ADULT; ADULT ADULT PER 15 DAY CARE DAY CARE MINUTES DAY CARE S5100 THE THE SERVICES [address] [place] [address] ADULT; ADULT ADULT PER 15 DAY CARE DAY CARE MINUTES DAY CARE S5100 THE THE SERVICES [address] [place] [address] ADULT; ADULT ADULT PER 15 DAY CARE DAY CARE MINUTES DAY CARE S5100 THE THE SERVICES [address] [place] [address] ADULT; ADULT ADULT PER 15 DAY CARE DAY CARE MINUTES DAY CARE S[address] ADULT; ADULT ADULT PER 15 DAY CARE DAY CARE MINUTES DAY CARE S[address] ADULT; ADULT ADULT PER 15 DAY CARE DAY CARE MINUTES DAY CARE S[address] ADULT; ADULT ADULT PER 15 DAY CARE DAY CARE MINUTES DAY CARE S[address] ADULT; ADULT ADULT PER 15 DAY CARE DAY CARE MINUTES DAY CARE S[address] ADULT; ADULT ADULT PER 15 DAY CARE DAY CARE MINUTES DAY CARE S[address] ADULT; ADULT ADULT PER 15 DAY CARE DAY CARE MINUTES DAY CARE S[address] ADULT; ADULT ADULT PER 15 DAY CARE DAY CARE MINUTES DAY CARE S[address] ADULT; ADULT ADULT PER 15 DAY CARE DAY CARE MINUTES DAY CARE S[address] ADULT; ADULT ADULT PER 15 DAY CARE DAY CARE MINUTES DAY CARE S[address] ADULT; ADULT ADULT PER 15 DAY CARE DAY CARE MINUTES DAY CARE S5[address] ADULT; ADULT ADULT PER 15 DAY CARE DAY CARE MINUTES DAY CARE S[address] ADULT; ADULT ADULT PER 15 DAY CARE DAY CARE MINUTES DAY CARE S[address] ADULT; ADULT ADULT PER 15 DAY CARE DAY CARE MINUTES DAY CARE S[address] ADULT; ADULT ADULT PER 15 DAY CARE DAY CARE MINUTES DAY CARE S[address] ADULT; ADULT ADULT PER 15 DAY CARE DAY CARE MINUTES DAY CARE S[address] ADULT; ADULT ADULT PER 15 DAY CARE DAY CARE MINUTES DAY CARE S[address] ADULT; ADULT ADULT PER 15 DAY CARE DAY CARE MINUTES DAY CARE S[address] ADULT; ADULT ADULT PER 15 DAY CARE DAY CARE MINUTES DAY CARE S5[address] ADULT; ADULT ADULT PER 15 DAY CARE DAY CARE MINUTES OVA&HAVEN 93489 [facility] DIRECT HOLDINGS HOLDINGS SMEARS CONCENTRA TION & ID SMR PRIM [id number] [facility] SRC CPLX [facility] SPEC HOLDINGS HOLDINGS STAIN OVA&HAVEN ITS DAY CARE S[address] ADULT; ADULT ADULT PER 15 DAY CARE DAY CARE MINUTES DAY CARE S[address] ADULT; ADULT ADULT PER 15 DAY CARE DAY CARE MINUTES DAY CARE S[address] ADULT; ADULT ADULT PER 15 DAY CARE DAY CARE MINUTES DAY CARE S[address] ADULT; ADULT ADULT PER 15 DAY CARE DAY CARE MINUTES DAY CARE S5[address] ADULT; ADULT ADULT PER 15 DAY CARE DAY CARE MINUTES DAY CARE S5[address] ADULT; ADULT ADULT PER 15 DAY CARE DAY CARE MINUTES DAY CARE S[address] ADULT; ADULT ADULT PER 15 DAY CARE DAY CARE MINUTES DAY CARE S5[address] ADULT; ADULT ADULT PER 15 DAY CARE DAY CARE MINUTES DAY CARE S5[address] ADULT; ADULT ADULT PER 15 DAY CARE DAY CARE MINUTES DAY CARE S5100 THE THE SERVICES [address] [place] [address] ADULT; ADULT ADULT PER 15 DAY CARE DAY CARE MINUTES DAY CARE S5100 THE THE SERVICES [address] [place] [address] ADULT; ADULT ADULT PER 15 DAY CARE DAY CARE MINUTES DAY CARE S5100 THE THE SERVICES [address] [place] [address] ADULT; ADULT ADULT PER 15 DAY CARE DAY CARE MINUTES NONEMERGE A0100 [facility] INC TRANSPORT TRANSPORT REGION 9 ATION CO ATION; L TAXI DAY CARE S5100 [facility] [address] [place] [address] ADULT; ADULT ADULT PER 15 DAY CARE DAY CARE MINUTES DAY CARE S5100 [facility] [address] [place] [address] ADULT; ADULT ADULT PER 15 DAY CARE DAY CARE MINUTES DAY CARE S5100 [facility] [address] [place] [address] ADULT; ADULT ADULT PER 15 DAY CARE DAY CARE MINUTES DAY CARE S5[address] ADULT; ADULT ADULT PER 15 DAY CARE DAY CARE MINUTES DAY CARE S5100 [address] ADULT; ADULT ADULT PER 15 DAY CARE DAY CARE MINUTES DAY CARE S5100 [facility] [address] [place] [address] ADULT; ADULT ADULT PER 15 DAY CARE DAY CARE MINUTES DAY CARE S5[address] ADULT; ADULT ADULT PER 15 DAY CARE DAY CARE MINUTES DAY CARE S5[address] ADULT; ADULT ADULT PER 15 DAY CARE DAY CARE MINUTES DAY CARE S5100 [facility] [address] [place] [address] ADULT; ADULT ADULT PER 15 DAY CARE DAY CARE MINUTES DAY CARE S5100 [facility] [address] [place] [address] ADULT; ADULT ADULT PER 15 DAY CARE DAY CARE MINUTES DAY CARE S5100 [facility] [address] [place] [address] ADULT; ADULT ADULT PER 15 DAY CARE DAY CARE MINUTES DAY CARE S5[address] ADULT; ADULT ADULT PER 15 DAY CARE DAY CARE MINUTES DAY CARE S5100 [facility] [address] [place] [address] ADULT; ADULT ADULT PER 15 DAY CARE DAY CARE MINUTES DAY CARE S[address] ADULT; ADULT ADULT PER 15 DAY CARE DAY CARE MINUTES DAY CARE S[address] ADULT; ADULT ADULT PER 15 DAY CARE DAY CARE MINUTES DAY CARE S[address] ADULT; ADULT ADULT PER 15 DAY CARE DAY CARE MINUTES DAY CARE S[address] ADULT; ADULT ADULT PER 15 DAY CARE DAY CARE MINUTES DAY CARE S5[address] ADULT; ADULT ADULT PER 15 DAY CARE DAY CARE MINUTES [place] [address] [facility] NIV ROUTINE 4 CANDACE ECG W/LEAST PHYSICIAN 12 LDS S EKG I&R ONLY RADEX 62167 RADIOLOGY VISHAL SPINE 4 HARISH LUMBOSACR ASSOCIATE AL 2/[address] [place] [address] RADIOLOGY VISHAL CERVICAL 4 HARISH SPINE W/O ASSOCIATE CONTRAST S OF NOTH MATERIAL RADEX 75197 RADIOLOGY ADELIA SPINE 4 ARSENIO THORACIC ASSOCIATE [address] [place] [address] RADIOLOGY VISHAL HEAD/BRAI 4 HARISH N W/O ASSOCIATE CONTRAST S OF NOTH MATERIAL DAY CARE S5[address] ADULT; ADULT ADULT PER 15 DAY CARE DAY CARE MINUTES DAY CARE S5100 [address] ADULT; ADULT ADULT PER 15 DAY CARE DAY CARE MINUTES DAY CARE S5[address] ADULT; ADULT ADULT PER 15 DAY CARE DAY CARE MINUTES DAY CARE S5[address] ADULT; ADULT ADULT PER 15 DAY CARE DAY CARE MINUTES DAY CARE S5[address] ADULT; ADULT ADULT PER 15 DAY CARE DAY CARE MINUTES DAY CARE S5100 [address] ADULT; ADULT ADULT PER 15 DAY CARE DAY CARE MINUTES DAY CARE S5[address] ADULT; ADULT ADULT PER 15 DAY CARE DAY CARE MINUTES DAY CARE S5[address] ADULT; ADULT ADULT PER 15 DAY CARE DAY CARE MINUTES DAY CARE S[address] ADULT; ADULT ADULT PER 15 DAY CARE DAY CARE MINUTES DAY CARE S5100 THE THE SERVICES [address] [place] [address] ADULT; ADULT ADULT PER 15 DAY CARE DAY CARE MINUTES DAY CARE S5100 THE THE SERVICES [address] [place] [address] ADULT; ADULT ADULT PER 15 DAY CARE DAY CARE MINUTES DAY CARE S5100 THE THE SERVICES [address] [place] [address] ADULT; ADULT ADULT PER 15 DAY CARE DAY CARE MINUTES DAY CARE S5100 THE THE SERVICES [address] [place] [address] ADULT; ADULT ADULT PER 15 DAY CARE DAY CARE MINUTES DAY CARE S5100 THE THE SERVICES [address] [place] [address] ADULT; ADULT ADULT PER 15 DAY CARE DAY CARE MINUTES DAY CARE S5100 THE THE SERVICES [address] [place] [address] ADULT; ADULT ADULT PER 15 DAY CARE DAY CARE MINUTES DAY CARE S5100 THE THE SERVICES [address] [place] [address] ADULT; ADULT ADULT PER 15 DAY CARE DAY CARE MINUTES DAY CARE S[address] ADULT; ADULT ADULT PER 15 DAY CARE DAY CARE MINUTES DAY CARE S[address] ADULT; ADULT ADULT PER 15 DAY CARE DAY CARE MINUTES DAY CARE S[address] ADULT; ADULT ADULT PER 15 DAY CARE DAY CARE MINUTES DAY CARE S[address] ADULT; ADULT ADULT PER 15 DAY CARE DAY CARE MINUTES DAY CARE S[address] ADULT; ADULT ADULT PER 15 DAY CARE DAY CARE MINUTES DAY CARE S[address] ADULT; ADULT ADULT PER 15 DAY CARE DAY CARE MINUTES DAY CARE S[address] ADULT; ADULT ADULT PER 15 DAY CARE DAY CARE MINUTES DAY CARE S[address] ADULT; ADULT ADULT PER 15 DAY CARE DAY CARE MINUTES DAY CARE S[address] ADULT; ADULT ADULT PER 15 DAY CARE DAY CARE MINUTES DAY CARE S[address] ADULT; ADULT ADULT PER 15 DAY CARE DAY CARE MINUTES DAY CARE S[address] ADULT; ADULT ADULT PER 15 DAY CARE DAY CARE MINUTES DAY CARE S[address] ADULT; ADULT ADULT PER 15 DAY CARE DAY CARE MINUTES DAY CARE S[address] ADULT; ADULT ADULT PER 15 DAY CARE DAY CARE MINUTES DAY CARE S[address] ADULT; ADULT ADULT PER 15 DAY CARE DAY CARE MINUTES DAY CARE S[address] ADULT; ADULT ADULT PER 15 DAY CARE DAY CARE MINUTES DAY CARE S[address] ADULT; ADULT ADULT PER 15 DAY CARE DAY CARE MINUTES DAY CARE S[address] ADULT; ADULT ADULT PER 15 DAY CARE DAY CARE MINUTES DAY CARE S[address] ADULT; ADULT ADULT PER 15 DAY CARE DAY CARE MINUTES DAY CARE S[address] ADULT; ADULT ADULT PER 15 DAY CARE DAY CARE MINUTES HEMOGLOBI 74811 [facility] JERI A1C LIPID 89630 [facility] [address]4065 [facility] PANEL [facility] DAY CARE S[address] ADULT; ADULT ADULT PER 15 DAY CARE DAY CARE MINUTES DAY CARE S[address] ADULT; ADULT ADULT PER 15 DAY CARE DAY CARE MINUTES DAY CARE S5[address] ADULT; ADULT ADULT PER 15 DAY CARE DAY CARE MINUTES NONEMERGE A0100 [facility] SHANNAN SAUCEDO NCY 4 INC TRANSPORT TRANSPORT REGION 9 ATION CO ATION; L TAXI DAY CARE S5[address] ADULT; ADULT ADULT PER 15 DAY CARE DAY CARE MINUTES DAY CARE S5[address] ADULT; ADULT ADULT PER 15 DAY CARE DAY CARE MINUTES DAY CARE S5[address] ADULT; ADULT ADULT PER 15 DAY CARE DAY CARE MINUTES DAY CARE S[address] ADULT; ADULT ADULT PER 15 DAY CARE DAY CARE MINUTES DAY CARE S5[address] ADULT; ADULT ADULT PER 15 DAY CARE DAY CARE MINUTES NONEMERGE A0100 [facility] CAC REYESS NCY 4 INC TRANSPORT TRANSPORT REGION 9 ATION CO ATION; L TAXI REPAIR 02608 THE [facility] INTERMEDI 4 PLASTIC ATE SURGERY F/E/E/N/L GROUP , &/MUC 2.5 CM/< EXC B9 20804 THE [facility] LES MRGN 4 PLASTIC XCP SK TG SURGERY GROUP , F/E/E/N/L /M 1.1-2.0CM DAY CARE S[address] ADULT; ADULT ADULT PER 15 DAY CARE DAY CARE MINUTES DAY CARE S5[address] ADULT; ADULT ADULT PER 15 DAY CARE DAY CARE MINUTES DAY CARE S5[address] ADULT; ADULT ADULT PER 15 DAY CARE DAY CARE MINUTES DAY CARE S[address] ADULT; ADULT ADULT PER 15 DAY CARE DAY CARE MINUTES DAY CARE S[address] ADULT; ADULT ADULT PER 15 DAY CARE DAY CARE MINUTES SIMPLE 52491 EMERG[facility] REPAIR 4 CARE LOREN SCALP/NEC PHYS K/AX/TEJINDER NORTHERN T/TRUNK 2.5CM/< DAY CARE S[address] ADULT; ADULT ADULT PER 15 DAY CARE DAY CARE MINUTES DAY CARE S[address] ADULT; ADULT ADULT PER 15 DAY CARE DAY CARE MINUTES DAY CARE S[address] ADULT; ADULT ADULT PER 15 DAY CARE DAY CARE MINUTES DAY CARE S[address] ADULT; ADULT ADULT PER 15 DAY CARE DAY CARE MINUTES DAY CARE S[address] ADULT; ADULT ADULT PER 15 DAY CARE DAY CARE MINUTES DAY CARE S5[address] ADULT; ADULT ADULT PER 15 DAY CARE DAY CARE MINUTES DIAB ONLY A5500 [facility] FIT CSTM 4 MEDICAL MEDICAL PREP&SPL SUPPLY SUPPLY [employer] DNSITY INSRT FOR DIAB A5512 ELITE ELITE ONLY MX 4 MEDICAL MEDICAL DNSITY SUPPLY SUPPLY INSRT [employer] FORMD PRFAB EA DAY CARE S[address] ADULT; ADULT ADULT PER 15 DAY CARE DAY CARE MINUTES DAY CARE S5[address] ADULT; ADULT ADULT PER 15 DAY CARE DAY CARE MINUTES DAY CARE S5[address] ADULT; ADULT ADULT PER 15 DAY CARE DAY CARE MINUTES DAY CARE S5[address] ADULT; ADULT ADULT PER 15 DAY CARE DAY CARE MINUTES DAY CARE S5[address] ADULT; ADULT ADULT PER 15 DAY CARE DAY CARE MINUTES BLOOD [address] COUNT 4 CANDACE CANDACE COMPLETE FT FT AUTO&AUTO CRUZ [facility] DIFRNTL WBC GLUC BLD [address] GLUC MNTR 4 CANDACEIVÁN MARIA DEV FT FT CLEARED CRUZ [facility] FDA SPEC HOME USE ECG [address] ST TIKA ROUTINE 4 CANDACE GAR ECG W/LEAST PHYSICIAN 12 LDS S EKG I&R ONLY GROUND A0425 VICTORIA VICTORIA MILEAGE 4 CO CO PER AMBULANCE AMBULANCE STATUTE TAXIN TAXIN MILE AMB A0427 VICTORIA VICTORIA SERVICE 4 CO CO ALS AMBULANCE AMBULANCE EMERGENCY TAXIN TAXIN TRANSPORT LEVEL [address] N VENOUS 4 CANDACE CANDACE BLOOD FT FT VENIPUNCT CRUZ [facility] URE ECG [address] ROUTINE 4 CANDACE CANDACE ECG FT FT W/LEAST CRUZ AR[facility] 12 LDS TRCG ONLY W/O I&R THER [address] PROPH/DX 4 CANDACE CANDACE NJX IV FT FT PUSH CRUZ [facility] SINGLE/1S T SBST/DRUG BASIC [address] METABOLIC 4 CANDACE MARIA PANEL FT FT CALCIUM CRUZ CRUZ TOTAL DAY CARE S[address] ADULT; ADULT ADULT PER 15 DAY CARE DAY CARE MINUTES DAY CARE S5[address] ADULT; ADULT ADULT PER 15 DAY CARE DAY CARE MINUTES DAY CARE S5[address] ADULT; ADULT ADULT PER 15 DAY CARE DAY CARE MINUTES DAY CARE S[address] ADULT; ADULT ADULT PER 15 DAY CARE DAY CARE MINUTES DAY CARE S[address] ADULT; ADULT ADULT PER 15 DAY CARE DAY CARE MINUTES DAY CARE S5[address] ADULT; ADULT ADULT PER 15 DAY CARE DAY CARE MINUTES NONEMERGE A0100 [facility] CAC [facility]EN[facility] NCY 4 INC TRANSPORT TRANSPORT REGION 9 ATION CO ATION; L TAXI DAY CARE S5[address] ADULT; ADULT ADULT PER 15 DAY CARE DAY CARE MINUTES DAY CARE S5[address] ADULT; ADULT ADULT PER 15 DAY CARE DAY CARE MINUTES DAY CARE S5[address] ADULT; ADULT ADULT PER 15 DAY CARE DAY CARE MINUTES DAY CARE S[address] ADULT; ADULT ADULT PER 15 DAY CARE DAY CARE MINUTES DAY CARE S[address] ADULT; ADULT ADULT PER 15 DAY CARE DAY CARE MINUTES NONEMERGE A0100 [facility] CAC BENNETTS NCY 4 INC TRANSPORT TRANSPORT REGION 9 ATION CO ATION; L TAXI RADEX 06021 [facility] SPINE 4 MEGHNA LUMBOSACR ASSOCIATE AL 2/3 S OF [facility] DAY CARE S5[address] ADULT; ADULT ADULT PER 15 DAY CARE DAY CARE MINUTES DAY CARE S5[address] ADULT; ADULT ADULT PER 15 DAY CARE DAY CARE MINUTES DAY CARE S5[address] ADULT; ADULT ADULT PER 15 DAY CARE DAY CARE MINUTES DAY CARE S5100 THE THE SERVICES [address] [place] [address] ADULT; ADULT ADULT PER 15 DAY CARE DAY CARE MINUTES DAY CARE S5100 THE THE SERVICES [address] [place] [address] ADULT; ADULT ADULT PER 15 DAY CARE DAY CARE MINUTES DAY CARE S[address] ADULT; ADULT ADULT PER 15 DAY CARE DAY CARE MINUTES NONEMERGE A0100 [facility] CAC [facility]TS NCY 4 INC TRANSPORT TRANSPORT REGION 9 ATION CO ATION; L TAXI DAY CARE S5100 THE THE SERVICES [address] [place] [address] ADULT; ADULT ADULT PER 15 DAY CARE DAY CARE MINUTES DAY CARE S5100 THE THE SERVICES [address] [place] [address] ADULT; ADULT ADULT PER 15 DAY CARE DAY CARE MINUTES DAY CARE S[address] ADULT; ADULT ADULT PER 15 DAY CARE DAY CARE MINUTES DAY CARE S[address] ADULT; ADULT ADULT PER 15 DAY CARE DAY CARE MINUTES DAY CARE S5100 THE THE SERVICES [address] [place] [address] ADULT; ADULT ADULT PER 15 DAY CARE DAY CARE MINUTES DAY CARE S[address] ADULT; ADULT ADULT PER 15 DAY CARE DAY CARE MINUTES DAY CARE S[address] ADULT; ADULT ADULT PER 15 DAY CARE DAY CARE MINUTES DAY CARE S[address] ADULT; ADULT ADULT PER 15 DAY CARE DAY CARE MINUTES DAY CARE S[address] ADULT; ADULT ADULT PER 15 DAY CARE DAY CARE MINUTES DAY CARE S5100 THE THE SERVICES [address] [place] [address] ADULT; ADULT ADULT PER 15 DAY CARE DAY CARE MINUTES DAY CARE S[address] ADULT; ADULT ADULT PER 15 DAY CARE DAY CARE MINUTES DAY CARE S5[address] ADULT; ADULT ADULT PER 15 DAY CARE DAY CARE MINUTES DAY CARE S[address] ADULT; ADULT ADULT PER 15 DAY CARE DAY CARE MINUTES DAY CARE S5100 THE THE SERVICES [address] [place] [address] ADULT; ADULT ADULT PER 15 DAY CARE DAY CARE MINUTES DAY CARE S5100 THE THE SERVICES [address] [place] [address] ADULT; ADULT ADULT PER 15 DAY CARE DAY CARE MINUTES DAY CARE S5100 THE THE SERVICES [address] [place] [address] ADULT; ADULT ADULT PER 15 DAY CARE DAY CARE MINUTES DAY CARE S5100 THE THE SERVICES [address] [place] [address] ADULT; ADULT ADULT PER 15 DAY CARE DAY CARE MINUTES DAY CARE S5100 THE THE SERVICES [address] [place] [address] ADULT; ADULT ADULT PER 15 DAY CARE DAY CARE MINUTES DAY CARE S5100 THE THE SERVICES [address] [place] [address] ADULT; ADULT ADULT PER 15 DAY CARE DAY CARE MINUTES DAY CARE S5100 THE THE SERVICES [address] [place] [address] ADULT; ADULT ADULT PER 15 DAY CARE DAY CARE MINUTES DAY CARE S5100 THE THE SERVICES [address] [place] [address] ADULT; ADULT ADULT PER 15 DAY CARE DAY CARE MINUTES DAY CARE S5100 THE THE SERVICES [address] [place] [address] ADULT; ADULT ADULT PER 15 DAY CARE DAY CARE MINUTES DAY CARE S5100 THE THE SERVICES [address] [place] [address] ADULT; ADULT ADULT PER 15 DAY CARE DAY CARE MINUTES DAY CARE S[address] ADULT; ADULT ADULT PER 15 DAY CARE DAY CARE MINUTES DAY CARE S[address] ADULT; ADULT ADULT PER 15 DAY CARE DAY CARE MINUTES DAY CARE S[address] ADULT; ADULT ADULT PER 15 DAY CARE DAY CARE MINUTES DAY CARE S[address] ADULT; ADULT ADULT PER 15 DAY CARE DAY CARE MINUTES DAY CARE S5100 THE THE SERVICES [address] [place] [address] ADULT; ADULT ADULT PER 15 DAY CARE DAY CARE MINUTES DAY CARE S5100 THE THE SERVICES [address] [place] [address] ADULT; ADULT ADULT PER 15 DAY CARE DAY CARE MINUTES DAY CARE S5100 THE THE SERVICES [address] [place] [address] ADULT; ADULT ADULT PER 15 DAY CARE DAY CARE MINUTES DAY CARE S5100 THE THE SERVICES [address] [place] [address] ADULT; ADULT ADULT PER 15 DAY CARE DAY CARE MINUTES DAY CARE S5100 THE THE SERVICES [address] [place] [address] ADULT; ADULT ADULT PER 15 DAY CARE DAY CARE MINUTES DAY CARE S5100 THE THE SERVICES [address] [place] [address] ADULT; ADULT ADULT PER 15 DAY CARE DAY CARE MINUTES DAY CARE S5100 THE THE SERVICES [address] [place] [address] ADULT; ADULT ADULT PER 15 DAY CARE DAY CARE MINUTES DAY CARE S5100 THE THE SERVICES [address] [place] [address] ADULT; ADULT ADULT PER 15 DAY CARE DAY CARE MINUTES DAY CARE S5100 THE THE SERVICES [address] [place] [address] ADULT; ADULT ADULT PER 15 DAY CARE DAY CARE MINUTES DAY CARE S5100 THE THE SERVICES [address] [place] [address] ADULT; ADULT ADULT PER 15 DAY CARE DAY CARE MINUTES DAY CARE S5100 THE THE SERVICES [address] [place] [address] ADULT; ADULT ADULT PER 15 DAY CARE DAY CARE MINUTES DAY CARE S5100 THE THE SERVICES [address] [place] [address] ADULT; ADULT ADULT PER 15 DAY CARE DAY CARE MINUTES DAY CARE S5100 THE THE SERVICES [address] [place] [address] ADULT; ADULT ADULT PER 15 DAY CARE DAY CARE MINUTES DAY CARE S5100 THE THE SERVICES [address] [place] [address] ADULT; ADULT ADULT PER 15 DAY CARE DAY CARE MINUTES DAY CARE S5100 THE THE SERVICES [address] [place] [address] ADULT; ADULT ADULT PER 15 DAY CARE DAY CARE MINUTES DAY CARE S[address] ADULT; ADULT ADULT PER 15 DAY CARE DAY CARE MINUTES DAY CARE S[address] ADULT; ADULT ADULT PER 15 DAY CARE DAY CARE MINUTES DAY CARE S[address] ADULT; ADULT ADULT PER 15 DAY CARE DAY CARE MINUTES DAY CARE S5100 THE THE SERVICES [address] [place] [address] ADULT; ADULT ADULT PER 15 DAY CARE DAY CARE MINUTES DAY CARE S5100 THE THE SERVICES [address] [place] [address] ADULT; ADULT ADULT PER 15 DAY CARE DAY CARE MINUTES DAY CARE S5100 THE THE SERVICES [address] [place] [address] ADULT; ADULT ADULT PER 15 DAY CARE DAY CARE MINUTES DAY CARE S5100 THE THE SERVICES [address] [place] [address] ADULT; ADULT ADULT PER 15 DAY CARE DAY CARE MINUTES DAY CARE S[address] ADULT; ADULT ADULT PER 15 DAY CARE DAY CARE MINUTES DAY CARE S[address] ADULT; ADULT ADULT PER 15 DAY CARE DAY CARE MINUTES DAY CARE S[address] ADULT; ADULT ADULT PER 15 DAY CARE DAY CARE MINUTES DAY CARE S[address] ADULT; ADULT ADULT PER 15 DAY CARE DAY CARE MINUTES DAY CARE S[address] ADULT; ADULT ADULT PER 15 DAY CARE DAY CARE MINUTES DAY CARE S[address] ADULT; ADULT ADULT PER 15 DAY CARE DAY CARE MINUTES DIAGNOSTI G0204 RADIOLOGY SAMUEL C 4 GAR MAMMOGRAP ASSOCIATE HY INCL S OF [facility] CAD WHEN PERF; BILAT NONEMERGE A0100 [facility] CAC BENNETTS NCY 4 INC TRANSPORT [facility]SP[facility]; L TAXI MAMMOGRAP 96270 [facility] HY 4 CANDACE MARIA BILATERAL FT FT [facility] COMPUTER- 20482 RADIOLOGY SAMUEL AIDED 4 GAR DETECTION ASSOCIATE DX S OF [facility] MAMMOGRAP DAY CARE S[address] ADULT; ADULT ADULT PER 15 DAY CARE DAY CARE MINUTES DAY CARE S[address] ADULT; ADULT ADULT PER 15 DAY CARE DAY CARE MINUTES DAY CARE S[address] ADULT; ADULT ADULT PER 15 DAY CARE DAY CARE MINUTES DAY CARE S[address] ADULT; ADULT ADULT PER 15 DAY CARE DAY CARE MINUTES DAY CARE S[address] ADULT; ADULT ADULT PER 15 DAY CARE DAY CARE MINUTES DAY CARE S[address] ADULT; ADULT ADULT PER 15 DAY CARE DAY CARE MINUTES NONEMERGE A0100 [facility] CAC [facility]TS NCY 4 INC TRANSPORT TRANSPORT REGION 9 ATION CO ATION; L TAXI NONEMERGE A0100 [facility] CAC REYESS NCY 4 INC TRANSPORT TRANSPORT REGION 9 ATION CO ATION; L TAXI DAY CARE S[address] ADULT; ADULT ADULT PER 15 DAY CARE DAY CARE MINUTES DAY CARE S5[address] ADULT; ADULT ADULT PER 15 DAY CARE DAY CARE MINUTES DAY CARE S5[address] ADULT; ADULT ADULT PER 15 DAY CARE DAY CARE MINUTES DAY CARE S5[address] ADULT; ADULT ADULT PER 15 DAY CARE DAY CARE MINUTES DAY CARE S[address] ADULT; ADULT ADULT PER 15 DAY CARE DAY CARE MINUTES DAY CARE S[address] ADULT; ADULT ADULT PER 15 DAY CARE DAY CARE MINUTES SKIN TEST 27556 [facility] 4 CANDACE CORONA TUBERCULO SIS PHYSICIAN INTRADERM S AL DAY CARE S5[address] ADULT; ADULT ADULT PER 15 DAY CARE DAY CARE MINUTES DAY CARE S[address] ADULT; ADULT ADULT PER 15 DAY CARE DAY CARE MINUTES DAY CARE S[address] ADULT; ADULT ADULT PER 15 DAY CARE DAY CARE MINUTES DAY CARE S[address] ADULT; ADULT ADULT PER 15 DAY CARE DAY CARE MINUTES DETERMINA 92080 REHANA RODRIGUEZ TION 4 NOLVIA, REFRACTIV OD, PSC E STATE OPHTH 37066 REHANA RODRIGUEZ MEDICAL 4 NOLVIA, XM&EVAL OD, PSC COMPRE NEW PT 1/> VST DAY CARE S[address] ADULT; ADULT ADULT PER 15 DAY CARE DAY CARE MINUTES DAY CARE S5[address] ADULT; ADULT ADULT PER 15 DAY CARE DAY CARE MINUTES DAY CARE S[address] ADULT; ADULT ADULT PER 15 DAY CARE DAY CARE MINUTES DAY CARE S[address] ADULT; ADULT ADULT PER 15 DAY CARE DAY CARE MINUTES DAY CARE S[address] ADULT; ADULT ADULT PER 15 DAY CARE DAY CARE MINUTES DAY CARE S[address] ADULT; ADULT ADULT PER 15 DAY CARE DAY CARE MINUTES DAY CARE S[address] ADULT; ADULT ADULT PER 15 DAY CARE DAY CARE MINUTES DAY CARE S[address] ADULT; ADULT ADULT PER 15 DAY CARE DAY CARE MINUTES DAY CARE S5100 THE THE SERVICES [address] [place] [address] ADULT; ADULT ADULT PER 15 DAY CARE DAY CARE MINUTES DAY CARE S[address] ADULT; ADULT ADULT PER 15 DAY CARE DAY CARE MINUTES DAY CARE S[address] ADULT; ADULT ADULT PER 15 DAY CARE DAY CARE MINUTES DAY CARE S[address] ADULT; ADULT ADULT PER 15 DAY CARE DAY CARE MINUTES DAY CARE S[address] ADULT; ADULT ADULT PER 15 DAY CARE DAY CARE MINUTES DAY CARE S[address] ADULT; ADULT ADULT PER 15 DAY CARE DAY CARE MINUTES DAY CARE S[address] ADULT; ADULT ADULT PER 15 DAY CARE DAY CARE MINUTES DAY CARE S[address] ADULT; ADULT ADULT PER 15 DAY CARE DAY CARE MINUTES DAY CARE S[address] ADULT; ADULT ADULT PER 15 DAY CARE DAY CARE MINUTES [address] HYDROXY 4 CANDACE CANDACE INCLUDES MED CTR MED CTR 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 IF PERFORMED DAY CARE S5[address] ADULT; ADULT ADULT PER 15 DAY CARE DAY CARE MINUTES DAY CARE S5[address] ADULT; ADULT ADULT PER 15 DAY CARE DAY CARE MINUTES ECG [address] [facility] T[facility]A ROUTINE 4 CANDACE GAR ECG W/LEAST PHYSICIAN 12 LDS S EKG I&R ONLY CV STRS 80303 ST BLAYNE MOH TST 4 CANDACE XERS&/OR RX CONT PHYSICIAN ECG W/O S I&R MYOCARDIA 45044 ST [facility] MOH L SPECT 4 CANDACE MULTIPLE STUDIES PHYSICIAN S CV STRS 65875 [facility] MOH TST 4 CANDACE XERS&/OR RX CONT PHYSICIAN ECG I&R S ONLY ECG [address] [facility] TIKA ROUTINE 4 CANDACE GAR ECG W/LEAST PHYSICIAN 12 LDS S EKG I&R ONLY ECG [address] [facility] TIKA ROUTINE 4 CANDACE GAR ECG W/LEAST PHYSICIAN 12 LDS S EKG I&R ONLY RADIOLOGI 22473 RADIOLOGY HAMZAH C EXAM 4 TUS CHEST 2 ASSOCIATE VIEWS S OF NOT FRONTAL&L ATERAL AMB A0427 VICTORIA VICTORIA SERVICE 4 CO CO ALS AMBULANCE AMBULANCE EMERGENCY TAXIN TAXIN TRANSPORT LEVEL 1 GROUND A0425 VICTORIA VICTORIA MILEAGE 4 CO CO PER AMBULANCE AMBULANCE STATUTE TAXIN TAXIN MILE MRI BRAIN [address] BRAIN 4 CANDACE MARIA STEM W/O FT FT W/CONTRAS CRUZ Bhatti MATERIAL ECHO [address] TTHRC R-T 4 CANDACE MARIA 2D FT FT W/WOM-MOD CRUZ [place] COMPL SPEC&COLR D DAY CARE S[address] ADULT; ADULT ADULT PER 15 DAY CARE DAY CARE MINUTES DAY CARE S[address] ADULT; ADULT ADULT PER 15 DAY CARE DAY CARE MINUTES DAY CARE S[address] ADULT; ADULT ADULT PER 15 DAY CARE DAY CARE MINUTES DAY CARE S[address] ADULT; ADULT ADULT PER 15 DAY CARE DAY CARE MINUTES DAY CARE S[address] ADULT; ADULT ADULT PER 15 DAY CARE DAY CARE MINUTES DAY CARE S[address] ADULT; ADULT ADULT PER 15 DAY CARE DAY CARE MINUTES DAY CARE S[address] ADULT; ADULT ADULT PER 15 DAY CARE DAY CARE MINUTES DAY CARE S[address] ADULT; ADULT ADULT PER 15 DAY CARE DAY CARE MINUTES DAY CARE S[address] ADULT; ADULT ADULT PER 15 DAY CARE DAY CARE MINUTES DAY CARE S[address] ADULT; ADULT ADULT PER 15 DAY CARE DAY CARE MINUTES DAY CARE S[address] ADULT; ADULT ADULT PER 15 DAY CARE DAY CARE MINUTES DAY CARE S5100 THE THE SERVICES [address] [place] [address] ADULT; ADULT ADULT PER 15 DAY CARE DAY CARE MINUTES DAY CARE S5100 [address] ADULT; ADULT ADULT PER 15 DAY CARE DAY CARE MINUTES DAY CARE S5100 THE [address] ADULT; ADULT ADULT PER 15 DAY CARE DAY CARE MINUTES DAY CARE S5100 THE [address] ADULT; ADULT ADULT PER 15 DAY CARE DAY CARE MINUTES DAY CARE S5100 [address] ADULT; ADULT ADULT PER 15 DAY CARE DAY CARE MINUTES DAY CARE S5100 [address] ADULT; ADULT ADULT PER 15 DAY CARE DAY CARE MINUTES DAY CARE S5100 [address] ADULT; ADULT ADULT PER 15 DAY CARE DAY CARE MINUTES RADEX 13740 ARBEN [facility]ARD[facility]ER FINGR 4 [facility] ER MAT MINIMUM 2 ORTHOPAE VIEWS NONEMERGE A0100 [facility] 4 INC TRANSPORT TRANSPORT REGION 9 ATION CO ATION; L TAXI DAY CARE S[address] ADULT; ADULT ADULT PER 15 DAY CARE DAY CARE MINUTES DAY CARE S5100 [address] ADULT; ADULT ADULT PER 15 DAY CARE DAY CARE MINUTES DAY CARE S5100 [address] ADULT; ADULT ADULT PER 15 DAY CARE DAY CARE MINUTES DAY CARE S5100 [address] ADULT; ADULT ADULT PER 15 DAY CARE DAY CARE MINUTES DAY CARE S5100 THE THE SERVICES 4 [facility] ADULT; ADULT ADULT PER 15 DAY CARE DAY CARE MINUTES DAY CARE S5100 THE THE SERVICES 4 [facility] ADULT; ADULT ADULT PER 15 DAY CARE DAY CARE MINUTES DAY CARE S5100 THE THE SERVICES 3 [facility] ADULT; ADULT ADULT PER 15 DAY CARE DAY CARE MINUTES RADEX [id number] RADIOLOGY ROEBKER SPINE 3 JAM LUMBOSACR ASSOCIATE AL 2/3 S OF [facility] GROUND A0425 VICTORIA VICTORIA MILEAGE 3 CO CO PER AMBULANCE AMBULANCE STATUTE TAXIN TAXIN MILE AMBULANCE [id number] VICTORIA VICTORIA SERVICE 3 CO CO BLS AMBULANCE AMBULANCE EMERGENCY TAXIN TAXIN TRANSPORT DAY CARE S5[address] ADULT; ADULT ADULT PER 15 DAY CARE DAY CARE MINUTES DAY CARE S5100 THE THE SERVICES 33 [place] [address] ADULT; ADULT ADULT PER 15 DAY CARE DAY CARE MINUTES DAY CARE S5100 THE THE SERVICES [address] [place] [address] ADULT; ADULT ADULT PER 15 DAY CARE DAY CARE MINUTES DAY CARE S5100 THE THE SERVICES [address] [place] [address] ADULT; ADULT ADULT PER 15 DAY CARE DAY CARE MINUTES DAY CARE S5100 THE [address] ADULT; ADULT ADULT PER 15 DAY CARE DAY CARE MINUTES DAY CARE S5100 THE THE [address] ADULT; ADULT ADULT PER 15 DAY CARE DAY CARE MINUTES DAY CARE S5100 THE THE SERVICES [address] [place] [address] ADULT; ADULT ADULT PER 15 DAY CARE DAY CARE MINUTES DAY CARE S5100 THE THE SERVICES [address] [place] [address] ADULT; ADULT ADULT PER 15 DAY CARE DAY CARE MINUTES DAY CARE S5100 THE THE SERVICES [address] [place] [address] ADULT; ADULT ADULT PER 15 DAY CARE DAY CARE MINUTES DAY CARE S5100 THE THE SERVICES [address] [place] [address] ADULT; ADULT ADULT PER 15 DAY CARE DAY CARE MINUTES DAY CARE S5100 THE THE SERVICES [address] [place] [address] ADULT; ADULT ADULT PER 15 DAY CARE DAY CARE MINUTES DAY CARE S5100 [address] ADULT; ADULT ADULT PER 15 DAY CARE DAY CARE MINUTES DAY CARE S5100 THE [address] ADULT; ADULT ADULT PER 15 DAY CARE DAY CARE MINUTES DAY CARE S5100 [address] ADULT; ADULT ADULT PER 15 DAY CARE DAY CARE MINUTES DAY CARE S5100 THE [address] ADULT; ADULT ADULT PER 15 DAY CARE DAY CARE MINUTES DAY CARE S5[address] ADULT; ADULT ADULT PER 15 DAY CARE DAY CARE MINUTES RADEX 47386 ARBEN GARDINER FINGR 3 LTH ER MAT MINIMUM 2 ORTHOPAE VIEWS DAY CARE S5100 THE [address] ADULT; ADULT ADULT PER 15 DAY CARE DAY CARE MINUTES DAY CARE S5100 THE [address] ADULT; ADULT ADULT PER 15 DAY CARE DAY CARE MINUTES DAY CARE S5100 [address] ADULT; ADULT ADULT PER 15 DAY CARE DAY CARE MINUTES DAY CARE S5[address] ADULT; ADULT ADULT PER 15 DAY CARE DAY CARE MINUTES DAY CARE S5[address] ADULT; ADULT ADULT PER 15 [place] [address] [facility] 3 [facility] CRUZ ARROYO COLLECTIO 474[address] [facility] 3 CANDACEKASH [facility] [place] FT VENIPUNCT CRUZ CRUZ URE DAY CARE S5100 THE [address] ADULT; ADULT ADULT PER 15 DAY CARE DAY CARE MINUTES DAY CARE S5[address] ADULT; ADULT ADULT PER 15 DAY CARE DAY CARE MINUTES DAY CARE S5[address] ADULT; ADULT ADULT PER 15 DAY CARE DAY CARE MINUTES DAY CARE S5[address] ADULT; ADULT ADULT PER 15 DAY CARE DAY CARE MINUTES ANES 18631 INDEPENDE MASROOR ARTHRS/EN 3 NT ALA DSCPY ANESTHESI DSTL OLOGIST RADIUS ULNA/WRIS T/HAND PRQ SKEL 52326 ARBEN GARDINER FIXJ DSTL 3 LTH ER MAT PHLNGL ORTHOPAE FX FNGR/THMB EA DAY CARE S5100 [address] ADULT; ADULT ADULT PER 15 DAY CARE DAY CARE MINUTES DAY CARE S5100 THE [address] ADULT; ADULT ADULT PER 15 DAY CARE DAY CARE MINUTES HEMOGLOBI [address] 3 CANDACE MARIA GLYCOSYLA JERI A1C PHYSICIAN PHYSICIAN S S INFLUENZA [address] ST AN VACC 3 CANDACE TILLMAN CHLOE IIV3 SPLIT PHYSICIAN VIRUS S PRSRV FREE ID NONEMERGE A0100 LKLP CAC [employer] NCY 3 INC TRANSPORT TRANSPORT REGION 9 ATION CO ATION; L TAXI DAY CARE S5100 THE THE [address] ADULT; ADULT ADULT PER 15 DAY CARE DAY CARE MINUTES DAY CARE S5100 THE [address] ADULT; ADULT ADULT PER 15 DAY CARE DAY CARE MINUTES NONEMERGE A0100 LKLP CAC BENNETTS NCY 3 INC TRANSPORT TRANSPORT REGION 9 ATION CO ATION; L TAXI RADEX 26660 ARBEN GARDINER FINGR 3 LTH ER MAT MINIMUM 2 ORTHOPAE VIEWS DAY CARE S5100 THE [address] ADULT; ADULT ADULT PER 15 DAY CARE DAY CARE MINUTES DAY CARE S5100 THE [address] ADULT; ADULT ADULT PER 15 DAY CARE DAY CARE MINUTES DAY CARE S5100 [address] ADULT; ADULT ADULT PER 15 DAY CARE DAY CARE MINUTES DAY CARE S5[address] ADULT; ADULT ADULT PER 15 DAY CARE DAY CARE MINUTES DAY CARE S5100 [address] ADULT; ADULT ADULT PER 15 DAY CARE DAY CARE MINUTES DAY CARE S5[address] ADULT; ADULT ADULT PER 15 DAY CARE DAY CARE MINUTES DAY CARE S5100 THE [address] ADULT; ADULT ADULT PER 15 DAY CARE DAY CARE MINUTES DAY CARE S5100 THE THE SERVICES [address] [place] [address] ADULT; ADULT ADULT PER 15 DAY CARE DAY CARE MINUTES ECG [address] [facility] ROUTINE 3 CANDACE PEG ECG W/LEAST PHYSICIAN 12 LDS S EKG I&R ONLY GROUND A0425 VICTORIA VICTORIA MILEAGE 3 CO CO PER AMBULANCE AMBULANCE STATUTE TAXIN TAXIN MILE AMB 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 VICTORIA VICTORIA SERVICE 3 CO CO ALS AMBULANCE AMBULANCE EMERGENCY TAXIN TAXIN TRANSPORT LEVEL 1 RADIOLOGI 79125 RADIOLOGY VISHAL C EXAM 3 HAIRSH CHEST 2 ASSOCIATE VIEWS S [place] NOT[place] FRONTAL[place] [address] RADIOLOGY VISHAL HEAD/BRAI 3 HARISH N W/O ASSOCIATE CONTRAST S OF NOTH MATERIAL DAY CARE S5100 THE THE SERVICES [address] [place] [address] ADULT; ADULT ADULT PER 15 DAY CARE DAY CARE MINUTES DAY CARE S5100 THE THE SERVICES [address] [place] [address] ADULT; ADULT ADULT PER 15 DAY CARE DAY CARE MINUTES DAY CARE S5100 [address] ADULT; ADULT ADULT PER 15 DAY CARE DAY CARE MINUTES DAY CARE S5[address] ADULT; ADULT ADULT PER 15 DAY CARE DAY CARE MINUTES DAY CARE S5[address] ADULT; ADULT ADULT PER 15 DAY CARE DAY CARE MINUTES DAY CARE S5[address] ADULT; ADULT ADULT PER 15 DAY CARE DAY CARE MINUTES DAY CARE S5[address] ADULT; ADULT ADULT PER [address] [place] [address] RADIOLOGY HAMZAH HEAD/BRAI 3 TUS N W/O ASSOCIATE CONTRAST S OF NOTH MATERIAL AMB A0427 VICTORIA VICTORIA SERVICE 3 CO CO ALS AMBULANCE AMBULANCE EMERGENCY TAXIN TAXIN TRANSPORT LEVEL 1 GROUND A0425 VICTORIA VICTORIA MILEAGE 3 CO CO PER AMBULANCE AMBULANCE STATUTE TAXIN TAXIN MILE ECG [address] [facility] ROUTINE 3 CANDACE ECG W/LEAST PHYSICIAN 12 LDS S EKG I&R ONLY DAY CARE S5100 THE THE SERVICES [address] [place] [address] ADULT; ADULT ADULT PER 15 DAY CARE DAY CARE MINUTES DAY CARE S5100 THE THE SERVICES [address] [place] [address] ADULT; ADULT ADULT PER 15 DAY CARE DAY CARE MINUTES DAY CARE S5100 THE THE SERVICES [address] [place] [address] ADULT; ADULT ADULT PER 15 DAY CARE DAY CARE MINUTES DAY CARE S5[address] ADULT; ADULT ADULT PER 15 DAY CARE DAY CARE MINUTES DAY CARE S5100 THE THE SERVICES [address] [place] [address] ADULT; ADULT ADULT PER 15 DAY CARE DAY CARE MINUTES CLTX DSTL 62460 [facility] GRUNKEMEY PHLNGL 3 LTH ER MAT FX ORTHOPAE FNGR/THMB W/O MANJ EA NONEMERGE A0100 LKLP CAC BENNETTS NCY 3 INC TRANSPORT TRANSPORT REGION 9 ATION CO ATION; L TAXI DAY CARE S5100 THE [address] ADULT; ADULT ADULT PER 15 DAY CARE DAY CARE MINUTES DAY CARE S5100 THE THE SERVICES [address] [place] [address] ADULT; ADULT ADULT PER 15 DAY CARE DAY CARE MINUTES DAY CARE S5[address] ADULT; ADULT ADULT PER 15 DAY CARE DAY CARE MINUTES DAY CARE S5100 [address] ADULT; ADULT ADULT PER 15 DAY CARE DAY CARE MINUTES DAY CARE S5100 THE [address] ADULT; ADULT ADULT PER 15 DAY CARE DAY CARE MINUTES DAY CARE S5[address] ADULT; ADULT ADULT PER 15 DAY CARE DAY CARE MINUTES DAY CARE S5[address] ADULT; ADULT ADULT PER 15 DAY CARE DAY CARE MINUTES AMBULANCE A0429 [facility] 3 [facility]TT[facility] AMBULE[facility]E BLS AND AND EMERGENCY AMBUL AMBUL TRANSPORT GROUND A0425 [facility] MILEAGE 3 AMBULETTE AMBULETTE PER AND AND STATUTE AMBUL AMBUL MILE RADEX 73538 RADIOLOGY KERMAN HAND 3 LYUBOV MINIMUM 3 ASSOCIATE VIEWS S OF [facility] DAY CARE S5100 THE THE SERVICES 3 [facility] ADULT; ADULT ADULT PER 15 DAY CARE DAY CARE MINUTES DAY CARE S5100 THE THE SERVICES 3 [facility] ADULT; ADULT ADULT PER 15 DAY CARE DAY CARE MINUTES DAY CARE S5100 THE THE SERVICES 3 [facility] ADULT; ADULT ADULT PER 15 DAY CARE DAY CARE MINUTES DAY CARE S5100 THE THE SERVICES 3 [facility] ADULT; ADULT ADULT PER 15 DAY CARE DAY CARE MINUTES DAY CARE S5100 THE THE SERVICES 3 [facility] ADULT; ADULT ADULT PER 15 DAY CARE DAY CARE MINUTES DAY CARE S5100 THE THE SERVICES 3 [facility] ADULT; ADULT ADULT PER 15 DAY CARE DAY CARE MINUTES DAY CARE S5100 THE THE SERVICES 3 [facility] ADULT; ADULT ADULT PER 15 DAY CARE DAY CARE MINUTES DAY CARE S5100 THE THE SERVICES [address] [place] [address] ADULT; ADULT ADULT PER 15 DAY CARE DAY CARE MINUTES DAY CARE S5100 THE THE SERVICES [address] [place] [address] ADULT; ADULT ADULT PER 15 DAY CARE DAY CARE MINUTES DAY CARE S5100 THE THE SERVICES [address] [place] [address] ADULT; ADULT ADULT PER 15 DAY CARE DAY CARE MINUTES DAY CARE S5100 THE THE SERVICES [address] [place] [address] ADULT; ADULT ADULT PER 15 DAY CARE DAY CARE MINUTES DAY CARE S5[address] ADULT; ADULT ADULT PER 15 DAY CARE DAY CARE MINUTES DAY CARE S5[address] ADULT; ADULT ADULT PER 15 DAY CARE DAY CARE MINUTES DAY CARE S5[address] ADULT; ADULT ADULT PER 15 DAY CARE DAY CARE MINUTES DAY CARE S5100 THE THE SERVICES [address] [place] [address] ADULT; ADULT ADULT PER 15 DAY CARE DAY CARE MINUTES DAY CARE S5100 THE THE SERVICES 3 [facility] ADULT; ADULT ADULT PER 15 DAY CARE DAY CARE MINUTES DAY CARE S5100 THE THE SERVICES 3 [facility] ADULT; ADULT ADULT PER 15 DAY CARE DAY CARE MINUTES DAY CARE S5100 THE THE SERVICES 3 [facility] ADULT; ADULT ADULT PER 15 DAY CARE DAY CARE MINUTES DAY CARE S5100 THE THE [facility] 3 [facility] ADULT; ADULT ADULT PER 15 DAY CARE DAY CARE MINUTES GROUND A0425 VICTORIA VICTORIA MILEAGE 3 CO CO PER AMBULANCE AMBULANCE STATUTE TAXIN TAXIN MILE AMB 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 VICTORIA VICTORIA SERVICE 3 CO CO ALS AMBULANCE AMBULANCE EMERGENCY TAXIN TAXIN TRANSPORT LEVEL 1 ECG 40796 LEONEL LOGAN [place] ROUTINE 3 EMERGENCY ECG SERVICES W/LEAST 12 LDS I&R ONLY DAY CARE S5[address] ADULT; ADULT ADULT PER 15 DAY CARE DAY CARE MINUTES DAY CARE S5100 THE [address] ADULT; ADULT ADULT PER 15 DAY CARE DAY CARE MINUTES DAY CARE S5[address] ADULT; ADULT ADULT PER 15 DAY CARE DAY CARE MINUTES DAY CARE S5[address] ADULT; ADULT ADULT PER 15 DAY CARE DAY CARE MINUTES DAY CARE S5[address] ADULT; ADULT ADULT PER 15 DAY CARE DAY CARE MINUTES DAY CARE S5[address] ADULT; ADULT ADULT PER 15 DAY CARE DAY CARE MINUTES DAY CARE S5[address] ADULT; ADULT ADULT PER 15 DAY CARE DAY CARE MINUTES GROUND A0425 VICTORIA VICTORIA MILEAGE 3 CO CO PER AMBULANCE AMBULANCE STATUTE TAXIN TAXIN MILE AMBULANCE A0429 VICTORIA VICTORIA SERVICE 3 CO CO BLS AMBULANCE AMBULANCE EMERGENCY TAXIN TAXIN TRANSPORT DAY CARE S5[address] ADULT; ADULT ADULT PER 15 DAY CARE DAY CARE MINUTES DAY CARE S5[address] ADULT; ADULT ADULT PER 15 DAY CARE DAY CARE MINUTES DAY CARE S5[address] ADULT; ADULT ADULT PER 15 DAY CARE DAY CARE MINUTES DAY CARE S5[address] ADULT; ADULT ADULT PER 15 DAY CARE DAY CARE MINUTES DAY CARE S5[address] ADULT; ADULT ADULT PER 15 DAY CARE DAY CARE MINUTES DAY CARE S5100 THE THE SERVICES 3 [facility] ADULT; ADULT ADULT PER 15 DAY CARE DAY CARE MINUTES DAY CARE S5100 THE THE SERVICES 3 [facility] ADULT; ADULT ADULT PER 15 DAY CARE DAY CARE MINUTES DAY CARE S5100 THE THE SERVICES 3 [facility] ADULT; ADULT ADULT PER 15 DAY CARE DAY CARE MINUTES DAY CARE S5100 THE THE SERVICES 3 [facility] ADULT; ADULT ADULT PER 15 DAY CARE DAY CARE MINUTES DAY CARE S5100 THE THE SERVICES 3 [facility] ADULT; ADULT ADULT PER 15 DAY CARE DAY CARE MINUTES GROUND A0425 VICTORIA VICTORIA MILEAGE 3 CO CO PER AMBULANCE AMBULANCE STATUTE TAXIN TAXIN MILE AMB A0427 VICTORIA VICTORIA SERVICE 3 CO CO ALS AMBULANCE AMBULANCE EMERGENCY TAXIN TAXIN TRANSPORT LEVEL [address] [facility] ROUTINE 3 CANDACE PEG ECG W/LEAST PHYSICIAN 12 LDS S EKG I&R ONLY DAY CARE S5100 THE THE SERVICES [address] [place] [address] ADULT; ADULT ADULT PER 15 DAY CARE DAY CARE MINUTES DAY CARE S5100 [address] ADULT; ADULT ADULT PER 15 DAY CARE DAY CARE MINUTES DAY CARE S5[address] THE [address] ADULT; ADULT ADULT PER 15 DAY CARE DAY CARE MINUTES DAY CARE S5[address] ADULT; ADULT ADULT PER 15 DAY CARE DAY CARE MINUTES DAY CARE S5[address] ADULT; ADULT ADULT PER 15 DAY CARE DAY CARE MINUTES DAY CARE S5100 THE THE SERVICES [address] [place] [address] ADULT; ADULT ADULT PER 15 DAY CARE DAY CARE MINUTES DAY CARE S5100 THE THE SERVICES [address] [place] [address] ADULT; ADULT ADULT PER 15 DAY CARE DAY CARE MINUTES DAY CARE S5[address] ADULT; ADULT ADULT PER 15 DAY CARE DAY CARE MINUTES DAY CARE S5100 THE THE SERVICES [address] [place] [address] ADULT; ADULT ADULT PER 15 DAY CARE DAY CARE MINUTES SBSQ 79534 [facility] 3 CANDACE CARE/DAY 25 PHYSICIAN MINUTES S INITIAL 69097 [facility] 3 CANDACE CARE/DAY 70 PHYSICIAN MINUTES S CRITICAL 13239 EMERGENCY [facility] 3 CARE ILL/INJUR PHYS ED [facility] PATIENT INIT 30-[address] [place] [address] RADIOLOGY REN HEAD/BRAI 3 III LIANA N W/O ASSOCIATE CONTRAST S OF NOTH MATERIAL ECG 32597 [facility] ROUTINE 3 CANDACE GAR ECG W/LEAST PHYSICIAN 12 LDS S EKG I&R ONLY DAY CARE S5100 THE THE SERVICES [address] [place] [address] ADULT; ADULT ADULT PER 15 DAY CARE DAY CARE MINUTES DAY CARE S5[address] ADULT; ADULT ADULT PER 15 DAY CARE DAY CARE MINUTES DAY CARE S5[address] ADULT; ADULT ADULT PER 15 DAY CARE DAY CARE MINUTES DAY CARE S5100 THE THE SERVICES [address] [place] [address] ADULT; ADULT ADULT PER 15 DAY CARE DAY CARE MINUTES DAY CARE S5100 THE THE SERVICES [address] [place] [address] ADULT; ADULT ADULT PER 15 DAY CARE DAY CARE MINUTES DAY CARE S5100 THE THE SERVICES [address] [place] [address] ADULT; ADULT ADULT PER 15 DAY CARE DAY CARE MINUTES DAY CARE S5[address] ADULT; ADULT ADULT PER 15 DAY CARE DAY CARE MINUTES DAY CARE S5[address] ADULT; ADULT ADULT PER 15 DAY CARE DAY CARE MINUTES DAY CARE S5100 THE THE SERVICES [address] [place] [address] ADULT; ADULT ADULT PER 15 DAY CARE DAY CARE MINUTES DAY CARE S5100 THE THE SERVICES [address] [place] [address] ADULT; ADULT ADULT PER 15 DAY CARE DAY CARE MINUTES DAY CARE S5[address] ADULT; ADULT ADULT PER 15 DAY CARE DAY CARE MINUTES DAY CARE S5[address] ADULT; ADULT ADULT PER 15 DAY CARE DAY CARE MINUTES DAY CARE S5[address] ADULT; ADULT ADULT PER 15 DAY CARE DAY CARE MINUTES NONEMERGE A0100 LKLP [place] [facility] 3 INC TRANSPORT TRANSPORT REGION 9 ATION CO ATION; L TAXI DAY CARE S5100 THE THE [address] ADULT; ADULT ADULT PER 15 DAY CARE DAY CARE MINUTES DAY CARE S5100 THE [address] ADULT; ADULT ADULT PER 15 DAY CARE DAY CARE MINUTES DAY CARE S5100 THE THE SERVICES [address] [place] [address] ADULT; ADULT ADULT PER 15 DAY CARE DAY CARE MINUTES DAY CARE S5100 THE THE SERVICES [address] [place] [address] ADULT; ADULT ADULT PER 15 DAY CARE DAY CARE MINUTES DAY CARE S5100 THE THE SERVICES [address] [place] [address] ADULT; ADULT ADULT PER 15 DAY CARE DAY CARE MINUTES DAY CARE S5100 [address] ADULT; ADULT ADULT PER 15 DAY CARE DAY CARE MINUTES DAY CARE S5[address] ADULT; ADULT ADULT PER 15 DAY CARE DAY CARE MINUTES DAY CARE S5100 THE THE SERVICES [address] [place] [address] ADULT; ADULT ADULT PER 15 DAY CARE DAY CARE MINUTES DAY CARE S5100 THE THE SERVICES [address] [place] [address] ADULT; ADULT ADULT PER 15 DAY CARE DAY CARE MINUTES DAY CARE S5100 [address] ADULT; ADULT ADULT PER 15 DAY CARE DAY CARE MINUTES DAY CARE S5[address] THE [address] ADULT; ADULT ADULT PER 15 DAY CARE DAY CARE MINUTES DAY CARE S5[address] ADULT; ADULT ADULT PER 15 DAY CARE DAY CARE MINUTES DAY CARE S5[address] ADULT; ADULT ADULT PER 15 DAY CARE DAY CARE MINUTES DAY CARE S5[address] ADULT; ADULT ADULT PER 15 DAY CARE DAY CARE MINUTES DAY CARE S5[address] THE [address] ADULT; ADULT ADULT PER 15 DAY CARE DAY CARE MINUTES DAY CARE S5100 THE THE SERVICES [address] [place] [address] ADULT; ADULT ADULT PER 15 DAY CARE DAY CARE MINUTES DAY CARE S5100 [address] ADULT; ADULT ADULT PER 15 DAY CARE DAY CARE MINUTES DAY CARE S5[address] ADULT; ADULT ADULT PER 15 DAY CARE DAY CARE MINUTES DAY CARE S5[address] ADULT; ADULT ADULT PER 15 DAY CARE DAY CARE MINUTES DAY CARE S5[address] ADULT; ADULT ADULT PER [address] [place] [address] [facility] HEAD/BRAI 3 [facility] W/[place] [address] [facility] CERVICAL 3 [facility] SPINE W/O INC INC CONTRAST MATERIAL CT LUMBAR 33954 [facility] SPINE 3 [facility] W/O INC INC CONTRAST MATERIAL GROUND A0425 VICTORIA VICTORIA MILEAGE 3 CO CO PER AMBULANCE AMBULANCE STATUTE TAXIN TAXIN MILE AMBULANCE A0429 VICTORIA VICTORIA SERVICE 3 CO CO BLS AMBULANCE AMBULANCE [place] [address] [facility] THORACIC 3 [facility] SPINE W/O INC INC CONTRAST MATERIAL 3D 05326 [facility] RENDERING 3 [facility] INC INC W/INTERP& POSTPROC DIFF WORK STATION DAY CARE S5100 [address] ADULT; ADULT ADULT PER 15 DAY CARE DAY CARE MINUTES DAY CARE S5100 THE [address] ADULT; ADULT ADULT PER 15 DAY CARE DAY CARE MINUTES DAY CARE S5[address] THE [address] ADULT; ADULT ADULT PER 15 DAY CARE DAY CARE MINUTES DAY CARE S5[address] ADULT; ADULT ADULT PER 15 DAY CARE DAY CARE MINUTES DAY CARE S5[address] ADULT; ADULT ADULT PER 15 DAY CARE DAY CARE MINUTES AMB A0427 VICTORIA VICTORIA SERVICE 3 CO CO ALS AMBULANCE AMBULANCE EMERGENCY TAXIN TAXIN TRANSPORT LEVEL 1 GROUND A0425 VICTORIA VICTORIA MILEAGE 3 CO CO PER AMBULANCE AMBULANCE STATUTE TAXIN TAXIN MILE DAY CARE S5100 THE THE SERVICES 3 [facility] ADULT; ADULT ADULT PER 15 DAY CARE DAY CARE MINUTES DAY CARE S5100 THE [address] ADULT; ADULT ADULT PER 15 DAY CARE DAY CARE MINUTES COLLECTIO [address] N VENOUS 3 CANDACE MARIA BLOOD FT FT VENIP[place] [address] PROLACTIN 3 CANDACE CANDACE FT FT CRUZ ARROY[place] DAY CARE S[address] ADULT; ADULT ADULT PER 15 DAY CARE DAY CARE MINUTES DAY CARE S5[address] ADULT; ADULT ADULT PER 15 DAY CARE DAY CARE MINUTES DAY CARE S5[address] ADULT; ADULT ADULT PER 15 DAY CARE DAY CARE MINUTES DAY CARE S5[address] ADULT; ADULT ADULT PER 15 DAY CARE DAY CARE MINUTES DAY CARE S5[address] ADULT; ADULT ADULT PER 15 DAY CARE DAY CARE MINUTES DAY CARE S5[address] ADULT; ADULT ADULT PER 15 DAY CARE DAY CARE MINUTES RADIOLOGI [address] EXAMINATI ASSOCIATE ON S [facility] SURGICAL SPECIMEN [place] [address] SURG 3 CANDACE MARIA PATHOLOGY FT FT CRUZ ARROY[place] GROSS&SAMANTHA ROSCOPIC EXAM MAMMOGRAP [address] HIC GID 3 CANDACE MARIA NEEDLE FT FT PLACEMENT CRUZ [place] T BREAST ANES [address] INTEG 3 CANDACE MARIA EXTREMITI FT FT ES ANT CRUZ [place] TRUNK & PERINEUM NOS EXC [address] ST [facility] BREAST 3 CANDACE HEI LES PREOP PLMT RAD PHYSICIAN MARKER S OPEN [address] CYST/ABER 3 CANDACE MARIA RANT FT FT BREAST CRUZ [place] TISSUE OPEN 1/> LESION PREOP ST ST PLACEMENT 3 CANDACE MARIA FT FT LOCALIZAT CRUZ [place] ION WIRE BREAST DAY CARE S5100 THE THE [facility] 3 [facility] ADULT; ADULT ADULT PER 15 DAY CARE DAY CARE MINUTES DAY CARE S5100 [address] ADULT; ADULT ADULT PER 15 DAY CARE DAY CARE MINUTES DAY CARE S5100 [address] ADULT; ADULT ADULT PER 15 DAY CARE DAY CARE MINUTES NONEMERGE A0100 [facility] 3 COMMUNITY TRANSPORT TRANSPORT ACTION ATION CO ATION; L TAXI ECG 73061 [facility] ROUTINE 3 CANDACE CANDACE ECG FT FT W/LEAST CRUZ [place] 12 LDS TRCG ONLY W/O I&R ECG [address] [facility] ROUTINE 3 CANDACE PEG ECG W/LEAST PHYSICIAN 12 LDS S EKG I&R ONLY DAY CARE S5100 THE [address] ADULT; ADULT ADULT PER 15 DAY CARE DAY CARE MINUTES DAY CARE S5100 [address] ADULT; ADULT ADULT PER 15 DAY CARE DAY CARE MINUTES DAY CARE S5[address] ADULT; ADULT ADULT PER 15 DAY CARE DAY CARE MINUTES DAY CARE S[address] ADULT; ADULT ADULT PER 15 DAY CARE DAY CARE MINUTES DAY CARE S[address] ADULT; ADULT ADULT PER 15 DAY CARE DAY CARE MINUTES NONEMERGE A0100 [facility] 3 COMMUNITY TRANSPORT TRANSPORT ACTION ATION CO ATION; L TAXI DAY CARE S[address] ADULT; ADULT ADULT PER 15 DAY CARE DAY CARE MINUTES DAY CARE S5[address] ADULT; ADULT ADULT PER 15 DAY CARE DAY CARE MINUTES DAY CARE S5[address] ADULT; ADULT ADULT PER 15 DAY CARE DAY CARE MINUTES DAY CARE S5100 THE [address] ADULT; ADULT ADULT PER 15 DAY CARE DAY CARE MINUTES DAY CARE S5[address] THE [address] ADULT; ADULT ADULT PER 15 DAY CARE DAY CARE MINUTES DAY CARE S5100 THE [address] ADULT; ADULT ADULT PER 15 DAY CARE DAY CARE MINUTES DAY CARE S5[address] THE [address] ADULT; ADULT ADULT PER 15 DAY CARE DAY CARE MINUTES DAY CARE S5100 THE [address] ADULT; ADULT ADULT PER 15 DAY CARE DAY CARE MINUTES DAY CARE S5100 THE [address] ADULT; ADULT ADULT PER 15 DAY CARE DAY CARE MINUTES DAY CARE S5100 THE [address] ADULT; ADULT ADULT PER 15 DAY CARE DAY CARE MINUTES DAY CARE S5[address] THE [address] ADULT; ADULT ADULT PER 15 DAY CARE DAY CARE MINUTES DAY CARE S5100 THE [address] ADULT; ADULT ADULT PER 15 DAY CARE DAY CARE MINUTES COMPUTER- [id number] [facility] [place] AIDED 3 JESSICA DETECTION ASSOCIATE DX S OF [facility] MAMMOGRAP HY MAMMOGRAP [id number] HY 3 CANDACE JACOBSTH BILATERAL FT FT [facility] DIAGNOSTI [id number] RADIOLOGY [place] C 3 JESSICA MAMMOGRAP ASSOCIATE HY INCL S OF [facility] CAD WHEN PERF; BILAT DAY CARE S5[address] THE THE [address] ADULT; ADULT ADULT PER 15 DAY CARE DAY CARE MINUTES DAY CARE S5100 THE THE [address] ADULT; ADULT ADULT PER 15 DAY CARE DAY CARE MINUTES DAY CARE S5100 THE [address] ADULT; ADULT ADULT PER 15 DAY CARE DAY CARE MINUTES DAY CARE S5100 THE [address] ADULT; ADULT ADULT PER 15 DAY CARE DAY CARE MINUTES DAY CARE S5100 THE [address] ADULT; ADULT ADULT PER 15 DAY CARE DAY CARE MINUTES DAY CARE S5[address] THE [address] ADULT; ADULT ADULT PER 15 DAY CARE DAY CARE MINUTES DAY CARE S5[address] THE [address] ADULT; ADULT ADULT PER 15 DAY CARE DAY CARE MINUTES DAY CARE S[address] THE [address] ADULT; ADULT ADULT PER 15 DAY CARE DAY CARE MINUTES DAY CARE S5100 THE THE SERVICES 3 [facility] ADULT; ADULT ADULT PER 15 DAY CARE DAY CARE MINUTES DAY CARE S5100 THE THE SERVICES 3 [facility] ADULT; ADULT ADULT PER 15 DAY CARE DAY CARE MINUTES DAY CARE S5100 THE THE SERVICES 3 [facility] ADULT; ADULT ADULT PER 15 DAY CARE DAY CARE MINUTES DAY CARE S5100 THE THE SERVICES 3 [facility] ADULT; ADULT ADULT PER 15 DAY CARE DAY CARE MINUTES DAY CARE S5100 THE THE SERVICES 3 [facility] ADULT; ADULT ADULT PER 15 DAY CARE DAY CARE MINUTES DAY CARE S5100 THE THE SERVICES 3 [facility] ADULT; ADULT ADULT PER 15 DAY CARE DAY CARE MINUTES DAY CARE S5100 THE THE SERVICES [address] [place] [address] ADULT; ADULT ADULT PER 15 DAY CARE DAY CARE MINUTES DAY CARE S5100 THE THE SERVICES 3 [facility] ADULT; ADULT ADULT PER 15 DAY CARE DAY CARE MINUTES DAY CARE S5100 THE THE SERVICES [address] [place] [address] ADULT; ADULT ADULT PER 15 DAY CARE DAY CARE MINUTES DAY CARE S5100 THE THE SERVICES 3 [facility] ADULT; ADULT ADULT PER 15 DAY CARE DAY CARE MINUTES DAY CARE S5100 THE THE SERVICES [address] [place] [address] ADULT; ADULT ADULT PER 15 DAY CARE DAY CARE MINUTES DAY CARE S5[address] ADULT; ADULT ADULT PER 15 DAY CARE DAY CARE MINUTES DAY CARE S5100 THE THE SERVICES 3 [facility] ADULT; ADULT ADULT PER 15 DAY CARE DAY CARE MINUTES DAY CARE S5100 THE THE SERVICES 3 [facility] ADULT; ADULT ADULT PER 15 DAY CARE DAY CARE MINUTES DAY CARE S5100 THE THE SERVICES 3 [facility] ADULT; ADULT ADULT PER 15 DAY CARE DAY CARE MINUTES DAY CARE S5100 THE THE SERVICES [address] [place] [address] ADULT; ADULT ADULT PER 15 DAY CARE DAY CARE MINUTES DAY CARE S5100 THE THE SERVICES 3 [facility] ADULT; ADULT ADULT PER 15 DAY CARE DAY CARE MINUTES DAY CARE S5100 THE THE SERVICES [address] [place] [address] ADULT; ADULT ADULT PER 15 DAY CARE DAY CARE MINUTES DAY CARE S5100 THE THE SERVICES 3 [facility] ADULT; ADULT ADULT PER 15 DAY CARE DAY CARE MINUTES DAY CARE S5100 THE THE SERVICES [address] [place] [address] ADULT; ADULT ADULT PER 15 DAY CARE DAY CARE MINUTES DAY CARE S5[address] ADULT; ADULT ADULT PER 15 DAY CARE DAY CARE MINUTES DAY CARE S5[address] ADULT; ADULT ADULT PER 15 DAY CARE DAY CARE MINUTES DAY CARE S5100 THE THE SERVICES [address] [place] [address] ADULT; ADULT ADULT PER 15 DAY CARE DAY CARE MINUTES DAY CARE S5[address] ADULT; ADULT ADULT PER 15 DAY CARE DAY CARE MINUTES DAY CARE S5[address] ADULT; ADULT ADULT PER 15 DAY CARE DAY CARE MINUTES DAY CARE S5[address] ADULT; ADULT ADULT PER 15 DAY CARE DAY CARE MINUTES DAY CARE S5[address] ADULT; ADULT ADULT PER 15 DAY CARE DAY CARE MINUTES DAY CARE S5[address] ADULT; ADULT ADULT PER 15 DAY CARE DAY CARE MINUTES DAY CARE S5[address] ADULT; ADULT ADULT PER 15 DAY CARE DAY CARE MINUTES DAY CARE S5[address] ADULT; ADULT ADULT PER 15 DAY CARE DAY CARE MINUTES DAY CARE S5[address] ADULT; ADULT ADULT PER 15 DAY CARE DAY CARE MINUTES DAY CARE S5[address] ADULT; ADULT ADULT PER 15 DAY CARE DAY CARE MINUTES DAY CARE S5[address] ADULT; ADULT ADULT PER 15 DAY CARE DAY CARE MINUTES DAY CARE S5[address] ADULT; ADULT ADULT PER 15 DAY CARE DAY CARE MINUTES SKIN TEST 88283 [facility] 3 CANDACE TUBERCULO SIS PHYSICIAN INTRADERM S AL DAY CARE S5[address] ADULT; ADULT ADULT PER 15 DAY CARE DAY CARE MINUTES DAY CARE S5100 THE THE SERVICES 3 [facility] ADULT; ADULT ADULT PER 15 DAY CARE DAY CARE MINUTES DAY CARE S5100 THE THE SERVICES 3 [facility] ADULT; ADULT ADULT PER 15 DAY CARE DAY CARE MINUTES AMB A0427 VICTORIA VICTORIA SERVICE 3 CO CO ALS AMBULANCE AMBULANCE EMERGENCY TAXIN TAXIN TRANSPORT LEVEL 1 GROUND A0425 VICTORIA VICTORIA MILEAGE 3 CO CO PER AMBULANCE AMBULANCE STATUTE TAXIN TAXIN MILE DAY CARE S5100 THE THE SERVICES 3 [facility] ADULT; ADULT ADULT PER 15 DAY CARE DAY CARE MINUTES DAY CARE S5100 THE THE SERVICES 3 [facility] ADULT; ADULT ADULT PER 15 DAY CARE DAY CARE MINUTES DAY CARE S5100 THE THE SERVICES 3 [facility] ADULT; ADULT ADULT PER 15 DAY CARE DAY CARE MINUTES DAY CARE S5100 THE THE SERVICES [address] [place] [address] ADULT; ADULT ADULT PER 15 DAY CARE DAY CARE MINUTES DAY CARE S5100 THE THE SERVICES [address] [place] [address] ADULT; ADULT ADULT PER 15 DAY CARE DAY CARE MINUTES DAY CARE S5100 THE THE SERVICES [address] [place] [address] ADULT; ADULT ADULT PER 15 DAY CARE DAY CARE MINUTES DAY CARE S5100 THE THE SERVICES [address] [place] [address] ADULT; ADULT ADULT PER 15 DAY CARE DAY CARE MINUTES DAY CARE S5100 THE THE [facility] 3 [facility] ADULT; ADULT ADULT PER 15 DAY CARE DAY CARE MINUTES DAY CARE S5[address] ADULT; ADULT ADULT PER 15 DAY CARE DAY CARE MINUTES DAY CARE S5100 THE THE SERVICES 3 [facility] ADULT; ADULT ADULT PER 15 DAY CARE DAY CARE MINUTES DAY CARE S5100 THE THE SERVICES 3 [facility] ADULT; ADULT ADULT PER 15 DAY CARE DAY CARE MINUTES DAY CARE S5100 THE THE [facility] 3 [facility] ADULT; ADULT ADULT PER 15 DAY CARE DAY CARE MINUTES DAY CARE S5100 THE THE SERVICES 3 [facility] ADULT; ADULT ADULT PER 15 DAY CARE DAY CARE MINUTES DAY CARE S5[address] ADULT; ADULT ADULT PER 15 DAY CARE DAY CARE MINUTES DAY CARE S5[address] ADULT; ADULT ADULT PER 15 DAY CARE DAY CARE MINUTES GROUND A0425 VICTORIA VICTORIA MILEAGE 3 CO CO PER AMBULANCE AMBULANCE STATUTE TAXIN TAXIN MILE AMB A0427 VICTORIA VICTORIA SERVICE 3 CO CO ALS AMBULANCE AMBULANCE EMERGENCY TAXIN TAXIN TRANSPORT LEVEL 1 DAY CARE S5[address] ADULT; ADULT ADULT PER 15 DAY CARE DAY CARE MINUTES DAY CARE S5[address] ADULT; ADULT ADULT PER 15 DAY CARE DAY CARE MINUTES DAY CARE S5[address] ADULT; ADULT ADULT PER 15 DAY CARE DAY CARE MINUTES DAY CARE S5[address] ADULT; ADULT ADULT PER 15 DAY CARE DAY CARE MINUTES DAY CARE S5[address] ADULT; ADULT ADULT PER 15 DAY CARE DAY CARE MINUTES DAY CARE S5[address] ADULT; ADULT ADULT PER 15 DAY CARE DAY CARE MINUTES DAY CARE S5[address] ADULT; ADULT ADULT PER 15 DAY CARE DAY CARE MINUTES DAY CARE S5[address] ADULT; ADULT ADULT PER 15 [place] [address] [facility] GUIDANCE 2 MAMMOGRAP MOL NEEDLE HY PLACEMENT SERVICES IMG S&I US BREAST 39641 [facility] REAL 2 MAMMOGRAP MOL TIME HY W/IMAGE SERVICES DOCUMENTA TION BREAST 41720 [facility] BIOPSY 2 MAMMOGRAP MOL VACUUM HY ASSISTED/ SERVICES ROTATING DEVICE IMG GID 37905 [facility] PLMT MTLC 2 MAMMOGRAP MOL LOCLZJ HY CLIP PRQ SERVICES BRST BX/ASPIR COMPUTER- 96517 [facility] AIDED 2 MAMMOGRAP MOL DETECTION [place] [address] [facility] CENTRAL SURG 2 CAODAISM CAODAISM PATHOLOGY HOSP HOSP GROSS&SAMANTHA ROSCOPIC EXAM DIAGNOSTI G0204 [facility] DAKSHA C 2 MAMMOGRAP MOL MAMMOGRAP HY HY INCL SERVICES CAD WHEN PERF; BILAT LOCALIZE 84275 [facility] 2 ELIZABETH MICHAEL SEIZURE NEUROLOGY CABLE/RAD IO EEG/VIDEO LOCALIZE 95746 [facility] 2 ELIZABETH MICHAEL SEIZURE NEUROLOGY CABLE/RAD IO EEG/VIDEO GLUC BLD 06727 [facility] CYPRESS 2 Y Y DEV [facility] CLEARED FDA SPEC HOME USE AMB A0427 EARL EARL SERVICE 2 FAYETTE [...] EMERGENCY [place] [address] [place] AYOOB AND HEAD/BRAI 2 MEDICAL N W/O SERV CONTRAST FOUNDAT[place] MATERIAL RADEX 07270 [place] AYOO[place] AND FOOT 2 MEDICAL COMPLETE SERV MINIMUM [address] LUMBAR [address] [place] GAUR[facility] SPINE 2 MEDICAL ANGELA W/[place] [address] [place] CERVICAL 2 MEDICAL ANGELA SPINE W/O SERV CONTRAST FOUNDATIO MATERIAL RADIOLOGI 52272 [place] AYOOB AND C 2 MEDICAL EXAMINATI SERV ON CHEST [place] [address] [place] [facility] THORACIC 2 MEDICAL ANGELA SPINE W/O SERV CONTRAST FOUNDATIO MATERIAL ECG 47082 [place] LUCRETIA POOJA ROUTINE 2 MEDICAL ECG [...] URB[place] [address] [place] XIMENA JAM HEAD/BRAI 2 MEDICAL N W/O SERV CONTRAST FOUNDATIO MATERIAL INJECTION J0515 [place] [address] Y Y [facility] NE MESYLATE [place] [address] [place] [address] [place] ESCOTT HEAD/BRAI 2 MEDICAL EDW N W/O SERV CONTRAST FOUNDATIO MATERIAL AMB A0427 EARL EARL SERVICE 2 FAYETTE FAYETTE ALS URBAN URBAN EMERGENCY COGOVT COGOVT TRANSPORT LEVEL 1 DRUG 93080 [facility] SCREEN 2 Y Y QUANTITAT [facility] SWAPNIL PHENYTOIN FREE GROUND A0425 EARL EARL MILEAGE 2 FAYETTE FAYETTE PER URBAN URBAN STATUTE COGOVT COGOVT MILE ALBUMIN 83716 [facility] SERUM 2 Y Y PLASMA/WH [facility] OLE BLOOD INJECTION J1200 [facility] 2 Y Y DIPHENHYD [facility] RAMINE HCL UP TO 50 MG INFUSION J7050 [facility] NORMAL 2 Y Y SALINE [facility] SOL[place] [address] [place] [address] [facility] INFUSION 2 Y Y THERAPY/P [facility] ROPHYLAXI S /DX 1ST TO 1 HR INJECTION J1165 [facility] 2 Y Y PHENYTOIN [facility] SODIUM PER 50 MG INJECTION J2060 [facility] 2 Y Y LORAZEPAM [facility] 2 MG THERAPEUT 62918 [facility] IC 2 Y Y INJECTION [facility] IV PUSH EACH NEW DRUG BLOOD 40493 [facility] COUNT 2 Y Y COMPLETE [facility] AUTOMATED RADIOLOGI 83096 [place]EL[place] C 2 MEDICAL RYLIE EXAMINATI SERV ON KNEE 3 FOUNDATIO VIEWS RADIOLOGI 24856 [place] [facility] 2 MEDICAL RYLIE EXAMINATI SERV ON PELVIS FOUNDATIO 1/2 VIEWS RADIOLOGI 40396 [place] 2 MEDICAL RYLIE EXAMINATI SERV ON TIBIA FOUNDATIO & FIBULA 2 VIEWS RADEX HIP 80994 [place] NICKELS 2 MEDICAL RYLIE UNILATERA SERV L FOUNDATIO COMPLETE MINIMUM 2 VIEWS BASIC 91382 [facility] METABOLIC 2 Y Y PANEL [facility] CALCIUM TOTAL DRUG 75323 [facility] SCREEN 2 Y Y QUANTITAT [facility] SWAPNIL PHENYTOIN TOTAL GROUND A0425 EARL EARL MILEAGE 2 FAYETTE FAYETTE PER URBAN URBAN STATUTE COGOVT COGOVT MILE AMB A0427 EARL EARL SERVICE 2 FAYETTE FAYETTE ALS URBAN URBAN EMERGENCY COGOVT COGOVT TRANSPORT LEVEL 1 RADIOLOGI 58975 [place]ICK[place] C 2 MEDICAL RYLIE EXAMINATI SERV ON FEMUR FOUNDATIO 2 VIEWS RADIOLOGI 01260 [place] 2 MEDICAL RYLIE EXAMINATI SERV ON CHE[place] [address] [place] CERVICAL 2 MEDICAL RYLIE SPINE W/O SERV CONTRAST FOUNDATIO MATERIAL RADIOLOGI 28282 [place] C EXAM 2 MEDICAL RYLIE CHEST 2 SERV VIEWS FOUNDATIO FRONTAL&L ATERAL GROUND A0425 EARL EARL MILEAGE 2 FAYETTE FAYETTE PER URBAN URBAN STATUTE COGOVT COGOVT MILE AMB A0427 EARL EARL SERVICE 2 FAYETTE FAYETTE ALS URBAN URBAN EMERGENCY COGOVT COGOVT TRANSPORT LEVEL 1 HOSPITAL [address] [place] FEE DOM DISCHARGE 2 MEDICAL DAY SERV MANAGEMEN FOUNDATIO T 30 MIN/< LOCALIZE 04545 [place] CEREBRAL 2 MEDICAL JOSE MARTIN SEIZURE SERV CABLE/RAD FOUNDATIO IO EEG/VIDEO LOCALIZE 54318 [place] CEREBRAL 2 MEDICAL JOSE MARTIN SEIZURE SERV CABLE/RAD FOUNDATIO IO EEG/VIDEO SBSQ 24542 [place] [facility] 2 MEDICAL CARE/DAY SERV 25 FOUNDATIO MINUTES INITIAL 88978 [place] [facility] 2 MEDICAL CARE/DAY SERV 70 FOUNDATIO MINUTES AMB A0427 EARL EARL SERVICE 2 FAYETTE FAYETTE ALS URBAN URBAN EMERGENCY COGOVT COGOVT TRANSPORT LEVEL 1 GROUND A0425 EARL EARL MILEAGE 2 FAYETTE FAYETTE PER URB[place] [address] [place] HEAD/BRAI 2 MEDICAL RYLIE N W/[place] [address] [place] CERVICAL 2 MEDICAL RYLIE SPINE W/O SERV CONTRAST FOUNDATIO MATERIAL AMB A0427 [facility] SERVICE 1 R FIRE R FIRE ALS EMS EMS EMERGENCY TRANSPORT LEVEL 1 GROUND A0425 [facility] MILEAGE 1 R FIRE R FIRE PER EMS EMS STATUTE MILE ECG 55393 GEILE LOBO GEILE LOBO ROUTINE 1 ECG W/LEAST 12 LDS I&R ONLY LOCALIZE 85583 [place] BRIAN[place] CEREBRAL 1 MEDICAL CHINMAY SEIZURE SERV CABLE/RAD FOUNDATIO IO EEG/VIDEO HOSPITAL 00320 [place] HOD[place] DISCHARGE 1 MEDICAL HENRY DAY SERV MANAGEMEN FOUNDATIO T 30 MIN/< INITIAL 43396 [place] [facility] 1 MEDICAL HENRY CARE/DAY SERV 50 FOUNDATIO MINUTES AMB A0422 [facility] OXYGEN&O2 1 R FIRE R FIRE SUPPLIES EMS EMS LIFE SUSTAININ G SITUATION GROUND A0425 [facility] MILEAGE 1 R FIRE R FIRE PER EMS EMS STATUTE MILE MRI BRAIN 26754 [place] CENT[place] BRAIN 1 MEDICAL HARISH STEM W/O SERV W/CONTRAS FOUNDATIO T MATERIAL ELECTROEN 19873 [place] CEPHALOGR 1 MEDICAL JOSE MARTIN AM W/REC SERV AWAKE&ASL FOUNDATIO EEP GROUND A0425 [facility] MILEAGE 1 R FIRE R FIRE PER EMS EMS STATUTE MILE AMB A0427 [facility] SERVICE 1 R FIRE R FIRE ALS EMS EMS EMERGENCY TRANSPORT LEVEL 1 CRITICAL 11762 [facility] 1 EMERGENCY ILL/INJUR SERVICES ED PATIENT INIT 30-74 MIN AMB A0422 [facility] OXYGEN&O2 1 R FIRE R FIRE SUPPLIES EMS EMS LIFE SUSTAININ G SITUATION AMB A0422 [facility] OXYGEN&O2 1 R FIRE R FIRE SUPPLIES EMS EMS LIFE SUSTAININ G SITUATION AMB A0427 [facility] SERVICE 1 R FIRE R FIRE ALS EMS EMS EMERGENCY TRANSPORT LEVEL 1 GROUND A0425 [facility] MILEAGE 1 R FIRE R FIRE PER EMS EMS STATUTE MILE RADIOLOGI 63518 [facility] [place] C 1 RADIOLOGY OSKAR EXAMINATI ON CHEST SINGLE VIEW FRONTAL ECG 87460 LEONEL KIRANID ROUTINE 1 EMERGENCY AKM ECG SERVICES W/LEAST 12 LDS I&R ONLY EXC B9 16808 [place] SHAKEEL LESION 1 MEDICAL CHLOE MRGN XCP SERV SK TG FOUNDATIO S/N/H/F/G 1.1-2.0CM ANES 23771 [facility] GAV INTEG 1 LTH MUSC & ANESTHESI NRV HEAD A PSC NECK&POST ERIOR TRUNK LEVEL III 69776 [facility] TANOUS SURG 1 EDW PATHOLOGY PATHOLOGY ASSOCIAT GROSS&SAMANTHA ROSCOPIC EXAM COLLECTIO 39035 ALBERTA Finney VENOUS 1 REGIONAL REGIONAL BLOOD MEDICAL MEDICAL VENIPUNCT CENTE CENTE URE BASIC 57852 ALBERTA PINZON METABOLIC 1 REGIONAL REGIONAL PANEL MEDICAL MEDICAL CALCIUM CENTE CENTE TOTAL ECG 48328 ALBERTA PINZON ROUTINE 1 REGIONAL REGIONAL ECG MEDICAL MEDICAL W/LEAST CENTE CENTE 12 LDS TRCG ONLY W/O I&R DEEP D9220 ALVARADO Perez BAUTISTA III SEDATION/ 1 BAUTISTA III LYUBOV GENERAL PSC N0 3 ANESTHESI A-1ST 30 MINUTES ALVEOLOPL 17870 ALVARADO I BAUTISTA III ASTY EACH 1 BAUTISTA III LYUBOV QUADRANT PSC N0 3 SPECIFY ORTHOPANT 53917 ALVARADO I BAUTISTA III OGRAM 1 BAUTISTA III LYUBOV PSC N0 3 ECG 34898 RAMONA YUN YUN RAMONA ROUTINE 1 MD ECG CONSULTIN W/LEAST G SRV 12 LDS I&R ONLY INITIAL 08148 CARTER MACHADO JUVENTINO INPATIENT 1 CONSULT NEW/ESTAB [address] [place] [address] [facility] [place] SCALF MARII HEAD/BRAI 1 RADIOLOGY N W/O CONTRAST MATERIAL CHROMATOG 60638 [facility] HUMBERTO 1 Y Y [facility] COLUMN [place] [address] [facility] THYROID 1 Y Y [facility] NG HORMONE TSH LIPID 81187 [facility] PANEL 1 Y Y [facility] DRUG 88994 [facility] SCREEN 1 Y Y [facility] SWAPNIL PHENYTOIN TOTAL COLLECTIO 10137 [facility] N VENOUS 1 Y Y BLOOD [facility] [place] [address] [facility] FERRITIN 1 Y Y [facility] COMPREHEN 45927 [facility] SIVE 1 Y Y METABOLIC [facility] PANEL BLOOD 77332 [facility] COUNT 1 Y Y COMPLETE [facility] AUTOMATED IRON 45005 [facility] BINDING 1 Y Y CAPACITY [place] [address] [facility] DK OLSEN HEAD/BRAI 1 RADIOLOGY N W/[place] [address] ALBERTA PINZON ABDOMEN 1 REGIONAL REGIONAL W/O & MEDICAL MEDICAL W/CONTRAS CENTE CENTE T MATERIAL Encounters Encounter Start End Date Code Location Performer Type Date EMERGENCY 50219 BRIAN JUAN DEPT 7 7 PHYSICIAN U VISIT S, PLLC HIGH SEVERITY& THREAT [facility]MERLY [facility] EMERGENCY 41621 BRIAN JUAN DEPT 7 7 PHYSICIAN U VISIT S, PLLC HIGH SEVERITY& THREAT [facility]LY [facility] HOSPITAL KE - 7 7 [facility] OUTPATIEN INC T EMERGENCY 73854 Jeffrey MCCARTHY 7 PHYSICIAN JR DEPARTMEN S, PLLC T VISIT MODERATE SEVERITY EMERGENCY 87757 KE 7 7 [facility]PART[facility] T VISIT LOW/MODER SEVERITY HOSPITAL KE - Jeffrey 7 [facility] OUTPATIEN INC T EMERGENCY 38932 KE 7 7 [facility] DEPARTMEN INC T VISIT MODERATE SEVERITY EMERGENCY 45202 BRIAN OLMEDO DEPT 7 7 PHYSICIAN VISIT S, PLLC HIGH SEVERITY& THREAT [facility] EMERGENCY 50814 BRIAN PEOPLES DEPT 7 7 PHYSICIAN VISIT S, PLLC HIGH SEVERITY& THREAT [facility] HOSPITAL KE - 7 7 [facility] OUTPATIEN INC T EMERGENCY 19940 KE 7 7 [facility] DEPARTMEN INC T VISIT HIGH/URGE NT SEVERITY HOSPITAL KE - 7 7 [facility] OUTPATIEN INC T HOSPITAL KE - 7 7 [facility] OUTPATIEN INC T OFFICE 01872 [facility] OUTPATIEN 7 7 PHYSICIAN T VISIT S GROUP 25 MINUTES OFFICE 15151 [facility] PHYSICIAN T NEW 20 S GROUP MINUTES EMERGENCY 92189 BRIAN OLMEDO 7 7 PHYSICIAN DEPARTMEN S, PLLC T VISIT HIGH/URGE NT SEVERITY EMERGENCY 68315 BRIAN FIELDS DEPT 6 6 PHYSICIAN VISIT S, PLLC HIGH SEVERITY& THREAT FUNCJ OFFICE 65901 [facility] 6 6 Y T VISIT 5 HOSPITAL MINUTES HOSPITAL UNIVERSIT - 6 6 Y OUTPATIEN HOSPITAL T EMERGENCY 79740 RBIAN JUAN 6 6 PHYSICIAN U BEN DEPARTMEN S, PLLC T VISIT MODERATE SEVERITY EMERGENCY 25321 BRIAN BUCIO 6 6 PHYSICIAN FOR DEPARTMEN S, PLLC T VISIT MODERATE SEVERITY EMERGENCY 52869 KE 6 6 [facility] DEPARTMEN INC T VISIT LOW/MODER SEVERITY HOSPITAL KE - 6 6 [facility] OUTPATIEN INC T EMERGENCY 63747 BRIAN FIELDS 6 6 PHYSICIAN SAMANTHA DEPARTMEN S, PLLC T VISIT LOW/MODER SEVERITY EMERGENCY 99233 BRIAN FIELDS DEPT 6 6 PHYSICIAN SAMANTHA VISIT S, PLLC HIGH SEVERITY& THREAT FUN EMERGENCY 81446 BRIAN FIELDS DEPT 6 6 PHYSICIAN SAMANTHA VISIT S, PLLC HIGH SEVERITY& THREAT FUNCJ EMERGENCY 25708 BRIAN FIELDS DEPT 6 6 PHYSICIAN SAMANTHA VISIT S, PLLC HIGH SEVERITY& THREAT FUNCJ EMERGENCY 51371 BRIAN FIELDS DEPT 6 6 PHYSICIAN SAMANTHA VISIT S, PLLC HIGH SEVERITY& THREAT FUNJ HOSPITAL KE - 6 6 [facility] OUTPATIEN INC T EMERGENCY 48164 BRIAN FIELDS DEPT 6 6 PHYSICIAN SAMANTHA VISIT S, PLLC HIGH SEVERITY& THREAT FUNCJ EMERGENCY 83887 KE 6 6 [facility] DEPARTMEN INC T VISIT MODERATE SEVERITY EMERGENCY 82842 BRIAN FIELDS 6 6 PHYSICIAN SAMANTHA DEPARTMEN S, PLLC T VISIT MODERATE SEVERITY HOSPITAL KE - 6 6 [facility] OUTPATIEN INC T EMERGENCY 82254 BRIAN JUAN 6 6 PHYSICIAN U BEN DEPARTMEN S, PLLC T VISIT MODERATE SEVERITY HOSPITAL KE - 6 6 [facility] OUTPATIEN INC T HOSPITAL KE - 6 6 [facility] OUTPATIEN INC T EMERGENCY 93769 BRIAN PEOPLES 6 6 PHYSICIAN MEGHNA DEPARTMEN S, PLLC T VISIT MODERATE SEVERITY EMERGENCY 71428 KE 6 6 [facility] DEPARTMEN INC T VISIT LOW/MODER SEVERITY EMERGENCY 45509 BRIAN FIELDS 6 6 PHYSICIAN SAMANTHA DEPARTMEN S, PLLC T VISIT MODERATE SEVERITY EMERGENCY 34239 BRIAN FIELDS DEPT 6 6 PHYSICIAN SAMANTHA VISIT S, PLLC HIGH SEVERITY& THREAT FUNCJ EMERGENCY 69311 BRIAN FIELDS DEPT 6 6 PHYSICIAN SAMANTHA VISIT S, PLLC HIGH SEVERITY& THREAT FUNCJ HOSPITAL KE - 6 6 [facility] OUTPATIEN INC T EMERGENCY 10136 KE 6 6 [facility] UN[facility] INC T VISIT LIMITED/M INOR PROB EMERGENCY 18215 BRIAN FIELDS DEPT 6 6 PHYSICIAN SAMANTHA VISIT S, PLLC HIGH SEVERITY& THREAT FUNCJ EMERGENCY 34527 BRIAN FIELDS 6 6 PHYSICIAN SAMANTHA DEPARTMEN S, PLLC T VISIT MODERATE SEVERITY EMERGENCY 53983 BRIAN FIELDS 6 6 PHYSICIAN SAMANTHA DEPARTMEN S, PLLC T VISIT HIGH/URGE NT SEVERITY EMERGENCY 97519 BRIAN FIELDS DEPT 6 6 PHYSICIAN SAMANTHA VISIT S, PLLC HIGH SEVERITY& THREAT FUNCJ EMERGENCY 05135 BRIAN FIELDS DEPT 6 6 PHYSICIAN SAMANTHA [facility] HIGH SEVERITY& THREAT [facility] KE - 6 6 [facility] T EMERGENCY 30883 BRIAN FIELDS 6 6 PHYSICIAN SAM[facility]THA [facility] T VISIT HIGH/URGE NT SEVERITY EMERGENCY 93969 KE 6 6 [facility]PARTMEN INC T VISIT LIMITED/M INOR PROB EMERGENCY 37090 BRIAN FIELDS 6 6 PHYSICIAN SAMANTHA [facility], [facility] T VISIT MODERATE SEVERITY EMERGENCY 70096 BRIAN JUAN DEPT 6 6 PHYSICIAN U BEN VISIT S, [facility] HIGH SEVERITY& THREAT FUNCJ EMERGENCY 05117 KE 6 6 [facility] DEPARTMEN INC T VISIT LOW/MODER SEVERITY HOSPITAL KE - 6 6 [facility] OUTPATIEN INC T EMERGENCY 03539 BRIAN PERRY MOH 6 6 PHYSICIAN DEPARTMEN S, [facility] T VISIT HIGH/URGE NT SEVERITY EMERGENCY 39933 KE 6 6 [facility] DEPARTMEN INC T VISIT LOW/MODER SEVERITY HOSPITAL KE - 6 6 [facility] OUTPATIEN INC T EMERGENCY 60172 BRIAN PERRY MOH 6 6 PHYSICIAN DEPARTMEN S, [facility] T VISIT HIGH/URGE NT SEVERITY HOSPITAL KE - 6 6 [facility] OUTPATIEN INC T EMERGENCY 03088 BRIAN RAMOS SYLVIA 6 6 PHYSICIAN DEPARTMEN S, [facility] T VISIT HIGH/URGE NT SEVERITY EMERGENCY 70065 KE 6 6 [facility] T VISIT LOW/MODER SEVERITY EMERGENCY 63068 KE [address] [facility] VISIT HIGH/URGE NT SEVERITY HOSPITAL KE - 6 6 [facility] EMERGENCY 91278 KE [address] [facility] VISIT LOW/MODER SEVERITY EMERGENCY 73800 BRIAN JUAN 6 6 PHYSICIAN [place] [facility] T VISIT HIGH/URGE NT SEVERITY EMERGENCY 21061 BRIAN PERRY [facility] 6 6 PHYSICIAN [facility] T VISIT HIGH/URGE NT SEVERITY EMERGENCY 45269 KE [address] [facility] T VISIT LOW/MODER SEVERITY HOSPITAL KE - 6 6 [facility] EMERGENCY 70289 BRIAN BUCIO DEPT 5 5 PHYSICIAN FOR VISIT [facility] HIGH SEVERITY& THREAT [facility] EMERGENCY 62356 BRIAN LEWIS 5 5 PHYSICIAN [facility] T VISIT HIGH/URGE NT SEVERITY EMERGENCY 53675 KE [address] [facility] VISIT HIGH/URGE NT SEVERITY HOSPITAL KE - 5 5 [facility] OFFICE [id number] REJI [facility] 5 5 N ION NEUROLOGY NEW/ESTAB PATIENT 60 MIN HOSPITAL REJI [facility] 5 5 N OUTPATIEN [facility] KE - 5 5 [facility] KE - 5 5 [facility] EMERGENCY 31962 BRIAN JUAN 5 5 PHYSICIAN U [facility], [facility] T VISIT HIGH/URGE NT SEVERITY EMERGENCY 77280 BRIAN REES 5 5 PHYSICIAN [facility] S, [facility] T VISIT HIGH/URGE NT SEVERITY OFFICE 05193 [facility] SCHULSTAD OUTPATIEN 5 5 PHYSICIAN RUSLAN Bhatti NEW 45 S GROUP MINUTES EMERGENCY 28706 BRIAN JUAN 5 5 PHYSICIAN U [facility] T VISIT HIGH/URGE NT SEVERITY OFFICE 34884 [facility] 5 5 [place] T VISIT ORTHOPAED 15 [facility] MINUTES EMERGENCY 55479 BRIAN JUAN 5 5 PHYSICIAN [facility] T VISIT LOW/MODER SEVERITY EMERGENCY 40113 BRIAN ABDI 5 5 PHYSICIAN [facility] T VISIT HIGH/URGE NT SEVERITY OFFICE 96435 [facility] OUTPAT[place] 5 5 [place] T VISIT ORTHOPAED 15 [facility] MINUTES OFFICE 47893 [facility] TAFOYA OUTPATIEN 5 5 PHYSICIAN TARAN T NEW 45 S GROUP MINUTES OFFICE 00553 [facility] OUTPATIEN 5 5 [place] T NEW 30 ORTHOPAED MINUTES [facility] HOME VST 52178 MD2U LOEBKER EST PT 5 5 [facility] SIGNIF NEW PROB 60 MINS HOME VST 60415 MD2U LOEBKER EST PT 5 5 [facility] SIGNIF NEW PROB [address] [facility] 5 5 [facility] T VISIT [facility] [address] - 5 5 [facility] OUTPATIEN [facility] T PAINTER RAILROAD CAR ST HOME VST 18828 MD2U LOEBKER EST PT 5 5 [facility] SIGNIF NEW PROB [address] [facility] OUTPATIEN 5 5 [facility] T NEW 30 MINUTES PHYSICIAN S HOME VST 86622 MD2U MANISHAEBKER EST PT 5 5 [facility] SIGNIF NEW PROB 60 MINS HOME VST 46144 MD2U MANISHAEBKER EST PT 5 5 [facility] SIGNIF NEW PROB 60 MINS HOME VST 53911 MD2U LOEBKER EST PT 5 5 [facility] SIGNIF NEW PROB 60 MINS HOME VST 54940 MD2U MANISHAEBKER EST PT 4 4 [facility] SIGNIF NEW PROB 60 MINS HOME VST 32327 MD2U MANISHAEBKER EST PT 4 4 [facility] SIGNIF NEW PROB [address] [facility] OUTPATIEN 4 4 [facility] HEI T VISIT 15 PHYSICIAN MINUTES S EMERGENCY 78007 EMERGENCY DAVREN DEPT 4 4 CARE ANNETTE VISIT PHYS HIGH [facility] SEVERITY& THREAT FUNCJ HOME VST 09041 MD2U MANISHAEBKER EST PT 4 4 [facility] SIGNIF NEW PROB 60 MINS EMERGENCY 25022 EMERGENCY [place] 4 4 CARE LOREN DEPARTMEN PHYS T VISIT [facility] HIGH/URGE NT SEVERITY HOME VST 32027 MD2U MANISHAEBKER EST PT 4 4 [facility] SIGNIF NEW PROB [address] - 4 4 [facility] OUTPATIEN FT T CRUZ EMERGENCY 26306 EMERGENCY ELLEMAN 4 4 CARE SAMANTHA DEPARTMEN PHYS T VISIT [facility] HIGH/URGE NT SEVERITY OFFICE 65171 [facility] OUTPATIEN 4 4 PLASTIC T NEW 30 SURGERY MINUTES GROUP [facility] ST - 4 4 [facility] OUTPATIEN [facility] ST - 4 4 [facility] OUTPATIEN [facility] OFFICE 16219 ST AN OUTPATIEN 4 4 [facility] PRIMO CHLOE T VISIT 15 PHYSICIAN MINUTES [facility] - [facility] OUT[facility] T PAINTER RAILROAD CAR OFFICE 16729 ST AN OUTPATIEN 4 4 [facility] PRIMO CHLOE T VISIT 25 PHYSICIAN MINUTES S EMERGENCY 32727 EMERGENCY DEPT 4 4 CARE VISIT PHYS HIGH [facility] SEVERITY& THREAT [facility] ST - 4 4 ACNDACE OUTPATIEN [facility] OFFICE 217[address] ST AN OUTPATIEN 4 4 [facility] PRIMO CHLOE T VISIT 25 PHYSICIAN MINUTES S EMERGENCY 86295 [facility] KEYSHAWN 3 3 [facility] LUCIUSMEN MED CTR T VISIT MODERATE SEVERITY OFFICE 28381 ST VAL OUTPATIEN 3 3 [facility] KAII T VISIT 15 PHYSICIAN MINUTES [facility] - 3 3 [facility] MOMINEN [facility] OFFICE 42589 ST AN OUTPATIEN 3 3 [facility] PRIMO CHLOE T VISIT 15 PHYSICIAN MINUTES S EMERGENCY 34443 EMERGENCY DAVREN 3 3 CARE ANNETTE DEPARTMEN PHYS T VISIT [facility] HIGH/URGE NT SEVERITY EMERGENCY 64887 EMERGENCY [place] DEPT 3 3 CARE LOREN VISIT PHYS HIGH [facility] SEVERITY& THREAT [facility] OFFICE 34716 [facility] GRUNK[facility]EY OUTPATIEN 3 3 [facility] ER MAT T NEW 20 ORTHOPAE MINUTES EMERGENCY 43170 EMERGENCY DORY 3 3 CARE SANGEETA DEPARTMEN PHYS T VISIT [facility] HIGH/URGE NT SEVERITY OFFICE 72371 ST AN OUTPATIEN 3 3 [facility] PRIMO CHLOE T VISIT 15 PHYSICIAN MINUTES S EMERGENCY 30676 LEONEL COBOS DEPT 3 3 EMERGENCY VISIT SERVICES HIGH SEVERITY& THREAT [facility] OFFICE 86790 ST AN OUTPATIEN 3 3 [facility] PRIMO CHLOE T VISIT 25 PHYSICIAN MINUTES S OFFICE 30362 ST [facility] OUTPATIEN 3 3 [facility] LOREN T VISIT 15 PHYSICIAN MINUTES S OFFICE 48213 ST AN OUTPATIEN 3 3 [facility] PRIMO CHLEO T VISIT 25 PHYSICIAN MINUTES S EMERGENCY 06526 LEONEL COBOS DEPT 3 3 EMERGENCY VISIT SERVICES HIGH SEVERITY& THREAT [facility] KE - 3 3 [facility] OUTPATIEN INC T EMERGENCY 88137 KE 3 3 [facility] DEPARTMEN INC T VISIT MODERATE SEVERITY EMERGENCY 73626 LEONEL VERDUZCO DEPT 3 3 EMERGENCY VISIT SERVICES HIGH SEVERITY& THREAT [facility] ST - 3 3 [facility] OUTPATIEN FT T CRUZ OFFICE 01106 ST OUTPATIEN 3 3 [facility] T VISIT FT 10 [facility] ST - 3 3 [facility] OUTPATIEN FT T CRUZ OFFICE 07183 ST [facility] HEL OUTPATIEN 3 3 [facility] T VISIT [address] [facility] - 3 3 [facility] OUTPATIEN FT T CRUZ OFFICE 06556 [facility] OUTPATIEN 3 3 [facility] HEI T NEW 45 MINUTES [facility] ST - 3 3 [facility] OUTPATIEN FT T CRUZ OFFICE 44896 ST [facility] HEL OUTPATIEN 3 3 [facility] T VISIT 15 PHYSICIAN MINUTES S OFFICE 00918 ST DIANNE HEL OUTPATIEN 3 3 [facility] T VISIT 25 PHYSICIAN MINUTES S OFFICE 13063 ST DIANNE HEL OUTPATIEN 3 3 [facility] T VISIT 25 PHYSICIAN MINUTES S EMERGENCY 57979 LEONEL FIELDS DEPT 3 3 EMERGENCY SAMANTHA VISIT SERVICES HIGH SEVERITY& THREAT [facility] CENTRAL - 2 2 [facility] UNIVERSIT - 2 2 [facility] T EMERGENCY 91054 UNIVERSIT 2 2 Y [facility] T VISIT LOW/MODER SEVERITY EMERGENCY 28818 LEONEL [facility] 2 2 EMERGENCY DEPARTMEN SERVICES T VISIT MODERATE SEVERITY OFFICE 35768 CORALFINA [facility] BEN BEN T VISIT 25 MINUTES EMERGENCY 41614 DK [facility]AS [facility] HIGH/URGE NT SEVERITY EMERGENCY 00794 UNIVERSIT 2 2 Y [facility] T VISIT MODERATE SEVERITY HOSPITAL UNIVERSIT - [address] [facility] T OFFICE 40658 [facility] CONSULTAT 2 2 ELIZABETH RODRIGUEZ ION NEUROLOGY NEW/ESTAB PATIENT 40 MIN EMERGENCY 97923 DK PEREZ 2 2 MEDICAL SET DEPARTMEN SERV T VISIT FOUNDATIO HIGH/URGE NT SEVERITY EMERGENCY 14844 DK RENO 2 2 MEDICAL RYLIE DEPARTMEN SERV T VISIT FOUNDATIO HIGH/URGE NT SEVERITY OFFICE 95400 CORALFINA CORALES OUTPATIEN 2 2 BEN BEN T VISIT 15 MINUTES OFFICE 11752 CORALFNIA CORALES OUTPATIEN 2 2 BEN BEN T NEW 45 MINUTES EMERGENCY 65372 DK REYES 2 2 MEDICAL I ALI DEPARTMEN SERV T VISIT FOUNDATIO HIGH/URGE NT SEVERITY HOSPITAL UNIVERSIT - 2 2 [facility] T EMERGENCY 25809 DK RENO 2 2 MEDICAL RYLIE DEPARTMEN SERV T VISIT FOUNDATIO HIGH/URGE NT SEVERITY OFFICE 54728 [facility] PAT CONSULTAT 2 2 [facility] NEW/ESTAB PSC PATIENT 60 MIN EMERGENCY 69789 [facility] DEPT 1 1 VISIT HIGH SEVERITY& THREAT FUNCJ EMERGENCY 05737 LEONEL DEMPSEY 1 1 EMERGENCY SCO DEPARTMEN SERVICES T VISIT MODERATE SEVERITY EMERGENCY 84242 DK REYES DEPT 1 1 MEDICAL I ALI VISIT SERV HIGH FOUNDATIO SEVERITY& THREAT FUNCJ OFFICE 78149 [facility] OUTPATIEN 1 1 I JOSE CRUZ I JOSE CRUZ T NEW 45 MINUTES EMERGENCY 43394 [facility] DEPT 1 1 EMERGENCY AKM VISIT SERVICES HIGH SEVERITY& THREAT FUNCJ OFFICE 53266 DK [facility] CONSULTAT 1 1 MEDICAL CHLOE ION SERV NEW/ESTAB FOUNDATIO PATIENT 60 MIN [facility] [place] - 1 1 [facility] OFFICE 32991 [facility] 1 1 [place] FAMILY ELL T VISIT MEDICINE 25 P MINUTES OFFICE 13448 ALVARADO I BAUTISTA III CONSULTAT 1 1 BAUTISTA III LYUBOV ION PSC N0 3 NEW/ESTAB PATIENT 30 MIN EMERGENCY 30981 [facility] DEPT 1 1 EMERGENCY VISIT SERVICES HIGH SEVERITY& THREAT FUNCJ OFFICE 89159 EUNICE BELCHER OUTPATIEN 1 1 [place] FAMILY T VISIT MEDICINE 15 P MINUTES HOSPITAL UNIVERSIT - 1 1 [facility] 1 [facility]
--- OUTSIDE RECORDS SUMMARY | 2017-06-27 21:12 | External Medical Summary Rpt ---
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 FR Ac TF 87 -2 -1 0. IN 94 YM ti OR 70 7- 9- 00 IC 74 AN ve KS 56 20 20 0 N 11 17 [...] LL G C IN [place] LE R NH 59 07 09 11 85 25 CL [...] 66 -0 -0 0. IN 18 ti NH 40 7- 7- 00 IC 57 AN [...] 20 00 IN 40 17 17 PH KS 1 AR CH 40 MA AE 0 [...] AD MG LL C TA BL ET NH 59 07 08 11 85 25 CL [...] 17 PH EU E 6 AR GO NH MA ND OP CY A F 50 [...] 7- 1- 00 IC 74 AN ve KS 21 20 20 0 N 81 17 17 PH EU HC 0 AR GO L MA ND 50 CY A 0 F MG LL C TA BL ET ME 57 04 08 10 60 30 CL 42 FR Ac TO 23 -2 -2 0. IN 94 YM ti NH 70 7- 1- 00 IC 79 AN [...] 20 00 IN 40 17 17 PH KS 1 AR CH 40 MA AE 0 [...] 7- 5- 00 IC 74 AN ve KS 21 20 20 0 N 81 17 17 PH EU HC 0 AR GO L MA ND 50 CY A 0 F MG LL C TA BL ET ME 00 04 07 10 60 30 CL 42 FR Ac TO 37 -2 -2 0. IN 94 YM ti NH 80 7- 5- 00 IC 79 AN [...] LL G C IN [place] LE R NH 59 07 07 11 85 25 CL [...] 17 PH EU E 6 AR GO NH MA ND OP CY A F 50 [...] 7- 8- 00 IC 74 AN ve KS 21 20 20 0 N 81 17 [...] 17 PH XI E 6 AR E NH MA D OP CY 50 LL C [...] -2 -2 0. IN 94 YM ti NH 70 7- 8- 00 IC 79 AN [...] LL G C IN [place] LE R NH 59 06 06 0 85 25 CL [...] 62 -2 -1 .0 00 IN ti KS 97 7- 6- 00 00 IC ve [...] 23 -2 -1 .0 00 IN ti NH 70 7- 6- 00 00 IC ve [...] 17 94 PH E 6 86 AR NH MA OP CY 50 MC G SP [...] 60 3- 2- 00 00 IC ve KS 21 20 20 42 N 81 17 [...] 7- 1- 00 IC 74 AN ve KS 21 20 20 0 N 81 17 [...] 17 PH XI E 6 AR E NH MA D OP CY 50 LL C [...] 23 -0 -2 .0 00 IN ti NH 70 1- 6- 00 00 IC ve [...] 62 -0 -2 .0 00 IN ti KS 97 - 6 00 IC ve N [...] 60 7- 2- 00 00 IC ve KS 21 20 20 42 N 81 17 [...] 62 -0 -0 .0 00 IN ti KS 97 3- 5- 00 00 IC ve [...] 37 -0 -0 .0 00 IN ti NH 80 5- 5- 00 00 IC ve [...] 17 70 PH E 6 48 AR NH MA OP CY 50 MC G SP [...] 20 2- 4- 00 13 CA ve KS 00 20 20 92 RE N 89 [...] 90 -1 -0 .0 00 D ti KS 45 4- 7- 00 13 CA ve [...] 37 -1 -3 .0 00 D ti NH 80 0- 1- 00 13 CA ve [...] 20 1- 4- 00 13 CA ve KS 00 20 20 77 RE N 89 [...] 37 -1 -2 .0 00 D ti NH 80 0- 4- 00 13 CA ve [...] 90 -1 -2 .0 00 D ti KS 45 3- 4- 00 13 CA ve [...] 20 3- 7- 00 13 CA ve KS 00 20 20 63 RE N 89 [...] 37 -1 -0 .0 00 D ti NH 80 3- 3- 00 13 CA ve [...] 90 -1 -0 .0 00 D ti KS 45 4- 3- 00 13 CA ve [...] 30 6- 0- 00 13 CA ve KS 31 20 20 50 RE DE 10 [...] 20 4- 3- 00 13 CA ve KS 00 20 20 49 RE N 89 [...] 37 -1 -0 .0 00 D ti NH 80 5- 9- 00 13 CA ve [...] 90 -1 -0 .0 00 D ti KS 45 6- 9- 00 13 CA ve [...] 16 17 59 E 9 69 PH NH AR OP MA CY 50 LL MC C G SP RA Y HY 00 07 07 0 30 [address] 59 -2 -2 0. D 50 NO ti OC 13 3 CA 36 LD ve OD 20 20 20 0 RE 11 ON 20 15 15 RI -A 1 PH CH CE AR AR TA MA D KS CY W NO PH LL EN C [...] OR 20 9 CA 84 LD ve KS 75 20 20 0 RE 72 N [...] -2 -2 0. D 49 NO ti NH 40 9 CA 84 LD ve OL [...] -2 -2 0. D 49 NO ti KS 45 9- 5- 00 CA 84 LD [...] JE CE AR WE TA MA LL KS CY NO PH LL EN C 5- [...] -2 -2 0. D 40 NO ti KS 45 9- 6- 00 CA 58 LD [...] -2 -2 0. D 40 NO ti NH 40 9- 6- 00 CA 58 LD [...] 9- 6- 00 CA 58 LD ve KS 02 20 20 0 RE 90 N [...] ti OR 20 CA 92 LD ve KS 02 20 20 0 RE 62 N [...] -2 -2 0. D 32 NO ti NH 40 9- 9- 00 CA 92 LD [...] -2 -2 0. TA 74 EB ti KS 45 4- 9- 00 L 03 KE [...] -2 -2 0. TA 95 EB ti NH 80 0- 0- 00 L 92 KE [...] MA MG CY TA #5 BL ET NH 00 10 05 3 67 32 TO [...] 6- 2- 00 L 71 KE ve NH 21 20 20 0 CA R IL [...] -2 -2 0. TA 95 EB ti NH 80 0- 0- 00 L 92 KE [...] 4- 7- 00 L 02 KE ve KS 02 20 20 0 CA R N 81 15 15 RE TA HC 0 MM L PH Y 50 AR 0 MA MG CY TA #5 BL ET 00 03 04 6 30 30 TO 87 LO Ac TA 90 -2 -1 0. TA 74 EB ti KS 45 4- 7- 00 L 03 KE [...] 6- 6- 00 L 71 KE ve NH 41 20 20 0 CA R IL [...] 4- 4- 00 L 02 KE ve KS 02 20 20 0 CA R N 81 15 15 RE TA HC 0 MM L PH Y 50 AR 0 MA MG CY TA #5 BL ET 00 03 03 6 30 30 TO 87 LO Ac TA 90 -2 -2 0. TA 74 EB ti KS 45 4- 4- 00 L 03 KE [...] -0 -0 0. TA 58 AILYN ti NH 80 9- 9- 00 L 57 RN [...] -1 -1 0. TA 40 EB ti KS 45 9- 9- 00 L 75 KE [...] 7- 7- 00 L 39 KE ve KS 02 20 20 0 CA R N [...] -1 -1 0. TA 40 AILYN ti NH 80 1- 1- 00 L 67 RN [...] -2 -2 0. TA 24 EB ti KS 45 6- 6- 00 L 21 KE [...] 7- 3- 00 L 17 RN ve KS 02 20 20 0 CA E N [...] -1 -1 0. TA 04 AILYN ti NH 80 0- 0- 00 L 26 RN [...] 7- 7- 00 L 17 RN ve KS 19 20 20 0 CA E N [...] -1 -1 0. TA 89 AILYN ti NH 20 7- 7- 00 L 16 RN [...] -2 -1 0. TA 36 AILYN ti KS 45 0- 7- 00 L 25 RN [...] ST CY Y ST #5 RI PS NH 00 12 12 0 50 5 TO [...] 0- 3- 00 L 36 RN ve KS 36 20 20 0 CA E N [...] -2 -1 0. TA 36 AILYN ti KS 45 0- 9- 00 L 25 RN [...] -0 -1 0. TA 51 AILYN ti NH 20 5- 9- 00 L 99 RN [...] 0- 9- 00 L 36 RN ve KS 21 20 20 0 CA E N [...] MG MA CY TA BL #5 ET NH 00 10 10 3 67 32 TO [...] -2 -2 0. TA 36 AILYN ti KS 45 0- 0- 00 L 25 RN ve N 98 20 20 0 CA E D3 66 14 14 RE LE 0 WI 5, PH S 00 AR RE 0 MA BE UN CY CC IT A #5 L CA PS UL E ME 00 08 10 2 60 30 TO 85 OS Ac TO 37 -1 -2 0. TA 82 AILYN ti NH 80 2- 0- 00 L 25 RN [...] 0- 0- 00 L 36 RN ve KS 02 20 20 0 CA E N [...] -2 -2 0. TA 71 AILYN ti KS 45 9- 3- 00 L 35 RN [...] -1 -1 0. TA 82 AILYN ti NH 20 2- 6- 00 L 25 RN [...] 8- 2- 00 L 03 RN ve KS 02 20 20 0 CA E N 81 14 14 RE LE HC 0 WI L PH S 50 AR RE 0 MA BE MG CY CC A TA #5 L BL ET 00 07 08 2 30 30 TO 85 OS Ac TA 90 -2 -2 0. TA 71 AILYN ti KS 45 9- 6- 00 L 35 RN [...] -1 -1 0. TA 82 AILYN ti NH 20 2- 2- 00 L 25 RN [...] 8- 4- 00 L 03 RN ve KS 02 20 20 0 CA E N [...] -2 -2 0. TA 71 AILYN ti KS 45 9- 9- 00 L 35 RN ve N 98 20 20 0 CA E D3 66 14 14 RE LE 0 WI 5, PH S 00 AR RE 0 MA BE UN CY CC IT A #5 L CA PS UL E TR 00 07 07 2 30 30 TO 85 OS Ac IA 52 -2 -2 0. TA 71 IALYN ti MT 71 9- 9- 00 L [...] CC A ST #5 L RI PS NH 00 07 07 3 67 32 TO [...] -1 -1 0. TA 14 AILYN ti NH 20 4- 5- 00 L 95 RN [...] 8- 8- 00 L 03 RN ve KS 02 20 20 0 CA E N [...] -3 -0 0. TA 03 AILYN ti KS 45 0- 1- 00 L 00 RN [...] -1 -1 0. TA 14 AILYN ti NH 20 4- 7- 00 L 95 RN [...] -3 -2 0. TA 03 AILYN ti KS 45 0- 7- 00 L 00 RN [...] -1 -1 0. TA 14 AILYN ti NH 20 4- 4- 00 L 95 RN [...] -3 -3 0. TA 03 AILYN ti KS 45 0- 0- 00 L 00 RN [...] CA R ON 09 14 14 RE KS E 9 CH NH PH AE OP AR L MA G [...] -1 -1 0. TA 42 AILYN ti NH 20 4- 6- 00 L 02 RN [...] 2- 3- 00 L 08 RN ve KS 10 20 20 CA E DE 51 [...] -1 -1 0. TA 42 AILYN ti NH 20 4- 3- 00 L 02 RN [...] 8- 1- 00 L 58 RN ve KS 10 20 20 CA E DE 51 [...] 9- 1- 00 L 39 RN ve KS 10 20 20 CA E DE 51 14 14 RE LE 0 WI 40 PH S AR RE MG MA BE CY CC TA A BL L ET FU 50 02 02 0 70 7 TO 84 OS Ac RO 74 -1 -1 .0 TA 42 AILYN ti SE 20 4- 4- 00 L 03 RN ve KS 10 20 20 CA E DE 51 [...] -1 -1 0. TA 42 AILYN ti NH 20 4- 4- 00 L 02 RN [...] AR U MA TA CY BL ET NH 68 02 02 2 30 30 TO [...] AR U MA TA CY BL ET NH 68 11 01 2 30 30 TO [...] CA R ON 09 13 14 RE KS E 9 CH NH PH AE OP AR L MA G 50 CY MC G SP RA Y CY 59 12 01 0 15 5 TO 84 RO Ac CL 74 -3 -0 0. TA 07 GE ti OB 60 1- 2- 00 L 92 RS ve EN 17 20 20 0 CA ZA 71 13 14 RE SH NH 0 AR IN PH ON E AR [...] AR CE PH ON TA AR E KS MA NO CY PH EN 5- 32 [...] AR U MA TA CY BL ET NH 68 11 12 2 30 30 TO [...] CA R ON 09 13 13 RE KS E 9 CH NH PH AE OP AR L MA G [...] R CE PH MA TA AR TT KS MA HE NO CY W PH S EN 5- 32 5 NH 68 11 11 0 30 8 TO [...] AR U MA TA CY BL ET NH 68 11 11 2 30 30 TO [...] TA CY CC BL A ET L NH 68 07 10 2 30 30 TO [...] EN CE PH TO TA AR N KS MA D NO CY PH EN 5- [...] .5 A -2 L 5 MG CP NH 68 07 08 2 30 30 TO [...] CA R ON 09 13 13 RE KS E 9 CH NH PH AE OP AR L MA G [...] 0- 0- 00 L 31 RN ve KS 10 20 20 CA E DE 51 [...] AR U MA TA CY BL ET NH 68 07 07 2 30 30 TO [...] CA R ON 09 13 13 RE KS E 9 CH NH PH AE OP AR L MA G [...] AR U MA TA CY BL ET NH 68 06 06 0 30 30 TO [...] 37 CY .5 -2 5 MG CP NH 68 05 05 0 30 30 TO [...] CA R ON 09 13 13 RE KS E 9 CH NH PH AE OP AR L MA G [...] MG MA CY SO FT GE L NH 68 04 04 0 30 30 TO [...] CA R ON 09 13 13 RE KS E 9 CH NH PH AE OP AR L MA G [...] CA R IN 80 13 13 RE KS E 1 CH 10 PH AE 0 [...] 0. MA 5 CY MG TA B NH 68 03 03 0 30 30 TO [...] CA R ON 09 13 13 RE KS E 9 CH NH PH AE OP AR L MA G 50 CY MC G SP RA Y NH 68 02 02 0 30 30 TO [...] 34 8. 5 6 MG TA B NH 00 09 10 11 30 30 CV [...] -1 -2 .0 S 95 LV ti NH 80 5- 9- 00 PH 48 IL [...] 34 8. 5 6 MG TA B NH 00 09 10 11 30 30 CV [...] -1 -0 .0 S 95 LV ti NH 80 5- 2- 00 PH 48 IL [...] 2 30 30 CV 70 HO Ac NH 00 -0 -1 .0 S 77 UC [...] -2 -2 .0 S 14 LV ti NH 80 3- 8- 00 PH 04 IL [...] 34 8. 5 6 MG TA B NH 00 07 08 1 30 30 CV [...] 0 30 30 CV 70 GH Ac NH 00 -2 -2 .0 S 59 AN [...] 34 8. 5 6 MG TA B NH 00 07 07 1 30 30 CV [...] -2 -2 .0 S 14 LV ti NH 80 3- 2- 00 PH 04 IL [...] 34 8. 5 6 MG TA B NH 00 06 06 3 30 30 CV [...] -2 -2 .0 S 72 t ti NH 80 3- 3- 00 PH 76 Av [...] Comment HOME CARE [id number] [facility] [address] [place] [address] ELDER ELDER CARE CARE CARE CLIENT PER 15 MIN HOME CARE S5108 [facility] [address] [place] [address] ELDER ELDER CARE CARE CARE CLIENT PER 15 MIN HOME CARE S5108 [facility] [address] [place] [address] ELDER ELDER CARE CARE CARE CLIENT PER 15 MIN DAY CARE S5100 [facility] [address] [place] [address] ADULT; ELDER ELDER PER 15 CARE CARE MINUTES DAY CARE S5100 [facility] [address] [place] [address] ADULT; ELDER ELDER PER 15 CARE CARE MINUTES HOME CARE S5108 [facility] [address] [place] [address] ELDER ELDER CARE CARE CARE CLIENT PER 15 MIN HOME CARE S5108 [facility] [address] [place] [address] ELDER ELDER CARE CARE CARE CLIENT PER 15 MIN DAY CARE S5100 [facility] [address] [place] [address] ADULT; ELDER ELDER PER 15 CARE CARE MINUTES HOME CARE S5108 [facility] [address] [place] [address] ELDER ELDER CARE CARE CARE CLIENT PER 15 MIN HOME CARE S5108 [facility] [address] [place] [address] ELDER ELDER CARE CARE CARE CLIENT PER 15 MIN DAY CARE S5100 [facility] [address] [place] [address] ADULT; ELDER ELDER PER 15 CARE CARE MINUTES HOME CARE S5108 [facility] ELDER ELDER CARE CARE CARE CLIENT PER 15 MIN HOME CARE S5108 [facility] ELDER ELDER CARE CARE CARE CLIENT PER 15 MIN DAY CARE S5100 [facility] ADULT; ELDER ELDER PER 15 CARE CARE MINUTES DAY CARE S5100 [facility] 7 [facility] ADULT; ELDER ELDER PER 15 CARE CARE MINUTES HOME CARE S5108 [facility] ELDER ELDER CARE CARE CARE CLIENT PER 15 MIN HOME CARE S5108 [facility] ELDER ELDER CARE CARE CARE CLIENT PER 15 MIN HOME CARE S5108 [facility] ELDER ELDER CARE CARE CARE CLIENT PER 15 MIN RADIOLOGI [address]655 [place] [facility]NE C 7 MEDICAL EXAMINATI SERV ON CHEST FOUNDATIO SINGLE N [place] FRONTAL ECG [address] [place] ROUTINE 7 MEDICAL ECG SERV W/LEAST FOUNDATIO 12 LDS N I&R ONLY HOME CARE S5108 [facility] ELDER ELDER CARE CARE CARE CLIENT PER 15 MIN HOME CARE S5108 [facility] ELDER ELDER CARE CARE CARE CLIENT PER 15 MIN GROUND A0425 [facility] 7 AMBULANCE AMBULANCE PER SERVICE SERVICE STATUTE MILE AMBULANCE A0429 [facility] SERVICE 7 AMBULANCE AMBULANCE BLS SERVICE SERVICE EMERGENCY TRANSPORT DAY CARE S5100 [facility] ADULT; ELDER ELDER PER 15 CARE CARE MINUTES DAY CARE S5100 [facility] 7 [facility] ADULT; ELDER ELDER PER 15 CARE CARE MINUTES HOME CARE S5108 [facility] ELDER ELDER CARE CARE CARE CLIENT PER 15 MIN HOME CARE S5108 [facility] ELDER ELDER CARE CARE CARE CLIENT PER 15 MIN HOME CARE S5108 [facility] ELDER ELDER CARE CARE CARE CLIENT PER 15 MIN INITIAL [address]20 [facility] 7 PHYSICIAN A CARE/DAY S GROUP 50 MINUTES HOME CARE S5108 [facility] 7 [facility] HOME ELDER ELDER CARE CARE CARE CLIENT PER 15 MIN GROUND A0425 [facility] AM[facility] PER SERVICE SERVICE STATUTE MILE AMBULANCE A0429 [facility] SERVICE 7 AMBULANCE AMBULANCE BLS SERVICE SERVICE EMERGENCY TRANSPORT DAY CARE S[address] [facility] [address] ADULT; ELDER ELDER PER 15 CARE CARE MINUTES DAY CARE S[address] [facility] [address] ADULT; ELDER ELDER PER 15 CARE CARE MINUTES ECG 27700 KE T[facility] JR ROUTINE 7 [facility] W/LEAST P 12 LDS I&R ONLY AMBULANCE A0429 [facility] SERVICE 7 AMBULANCE AMBULANCE BLS SERVICE SERVICE EMERGENCY TRANSPORT RADIOLOGI 98137 [facility] 7 MEDICAL EXAMINATI IMAGING ON CHEST ASS SINGLE VIEW FRONTAL GROUND A0425 [facility] 7 AMBULANCE AMBULANCE PER SERVICE SERVICE STATUTE MILE HOME CARE S5108 [facility] 7 [facility] HOME ELDER ELDER CARE CARE CARE CLIENT PER 15 MIN HOME CARE S5108 [facility] 7 [facility] ELDER ELDER CARE CARE CARE CLIENT PER 15 MIN HOME CARE S5108 [facility] 7 [facility] ELDER ELDER CARE CARE CARE CLIENT PER 15 MIN HOME S5170 KE [facility] 7 CO. ADULT CO. ADULT MEALS DAY DAY INCLUDING ELDER ELDER PREPARATI ON; PER MEAL DAY CARE S[address] [facility] [address] ADULT; ELDER ELDER PER 15 CARE CARE MINUTES DAY CARE S[address] [facility] [address] ADULT; ELDER ELDER PER 15 CARE CARE MINUTES HOME S5170 KE [facility] 7 CO. ADULT CO. ADULT MEALS DAY DAY INCLUDING ELDER ELDER PREPARATI ON; PER MEAL HOME CARE S5108 [facility] 7 [facility] ELDER ELDER CARE CARE CARE CLIENT PER 15 MIN HOME CARE S5108 [facility] [address] [place] [address] ELDER ELDER CARE CARE CARE CLIENT PER 15 MIN HOME S5170 KE [facility] 7 CO. ADULT CO. ADULT MEALS DAY DAY INCLUDING ELDER ELDER PREPARATI ON; PER MEAL DAY CARE S[address] [facility] [address] ADULT; ELDER ELDER PER 15 CARE CARE MINUTES DAY CARE S[address] [facility] [address] ADULT; ELDER ELDER PER 15 CARE CARE MINUTES HOME S5170 KE [facility] 7 CO. ADULT CO. ADULT MEALS DAY DAY INCLUDING ELDER ELDER PREPARATI ON; PER MEAL HOME CARE S5108 [facility] [address] [place] [address] ELDER ELDER CARE CARE CARE CLIENT PER 15 MIN HOME CARE S5108 [facility] [address] [place] [address] ELDER ELDER CARE CARE CARE CLIENT PER 15 MIN HOME S5170 KE [facility] 7 CO. ADULT CO. ADULT MEALS DAY DAY INCLUDING ELDER ELDER PREPARATI ON; PER MEAL HOME S5170 [facility] DELIV 7 CO. ADULT CO. ADULT MEALS DAY DAY INCLUDING ELDER ELDER PREPARATI ON; PER MEAL HOME CARE S5108 [facility] [address] [place] [address] ELDER ELDER CARE CARE CARE CLIENT PER 15 MIN DAY CARE S[address] [facility] [address] ADULT; ELDER ELDER PER [place] [address] [facility] TROPONIN 7 [facility] QUANTITAT INC INC SWAPNIL BLOOD 61038 KE ESTRELLA COUNT 7 [facility] COMPLETE INC AUTO&AUTO DIFRNTL WBC ECG 15746 KE CHRISTIE ROUTINE 7 [facility] W/LEAST P 12 LDS I&R ONLY RADEX HIP 79806 [facility] UNILATERA INC INC L WITH PELVIS 2-3 VIEWS HOME CARE S5108 [facility] 7 [facility] ELDER ELDER CARE CARE CARE CLIENT PER 15 MIN GROUND A0425 [facility] AMBULANCE AMBULANCE PER SERVICE SERVICE STATUTE MILE URNLS DIP 61929 [facility] STICK/TAB INC INC LET REAGENT AUTO MICROSCOP Y CREATINE 21024 [facility] KINASE 7 [facility] TOTAL INC INC COMPREHEN 68559 [facility] SIVE 7 [facility] METABOLIC INC INC PANEL ECG 83053 [facility] ROUTINE 7 [facility] ECG INC INC W/LEAST 12 LDS TRCG ONLY W/O I&R HOME S5170 KE [facility] 7 CO. ADULT CO. ADULT MEALS DAY DAY INCLUDING ELDER ELDER PREPARATI ON; PER MEAL CREATINE 74900 [facility] KINASE MB 7 [facility] FRACTION INC INC ONLY AMB A0427 [facility] SERVICE 7 AMBULANCE AMBULANCE ALS SERVICE SERVICE EMERGENCY TRANSPORT LEVEL 1 HOME S5170 KE [facility] 7 CO. ADULT CO. ADULT MEALS DAY DAY INCLUDING ELDER ELDER PREPARATI ON; PER MEAL HOME CARE S5108 [facility] [address] [place] [address] ELDER ELDER CARE CARE CARE CLIENT PER 15 MIN HOME CARE S5108 [facility] [address] [place] [address] ELDER ELDER CARE CARE CARE CLIENT PER 15 MIN HOME S5170 KE [facility] 7 CO. ADULT CO. ADULT MEALS DAY DAY INCLUDING ELDER ELDER PREPARATI ON; PER MEAL DAY CARE S[address] [address] ADULT; ELDER ELDER PER 15 CARE CARE MINUTES HOME S5170 KE [facility] 7 CO. ADULT CO. ADULT MEALS DAY DAY INCLUDING ELDER ELDER PREPARATI ON; PER MEAL HOME CARE S5108 [facility] [address] ELDER ELDER CARE CARE CARE CLIENT PER 15 MIN HOME CARE S5108 [facility] [address] [place] [address] ELDER ELDER CARE CARE CARE CLIENT PER 15 MIN HOME S5170 KE [facility] 7 CO. ADULT CO. ADULT MEALS DAY DAY INCLUDING ELDER ELDER PREPARATI ON; PER MEAL DAY CARE S[address] [facility] [address] ADULT; ELDER ELDER PER 15 CARE CARE MINUTES DAY CARE S[address] [facility] [address] ADULT; ELDER ELDER PER 15 CARE CARE MINUTES HOME S5170 KE [facility] 7 CO. ADULT CO. ADULT MEALS DAY DAY INCLUDING ELDER ELDER PREPARATI ON; PER MEAL HOME CARE S5108 [facility] [address] [place] [address] ELDER ELDER CARE CARE CARE CLIENT PER 15 MIN HOME CARE S5108 KE [facility] [address] ELDER ELDER CARE CARE CARE CLIENT PER 15 MIN HOME S5170 KE [facility] 7 CO. ADULT CO. ADULT MEALS DAY DAY INCLUDING ELDER ELDER PREPARATI ON; PER MEAL DAY CARE S[address] [facility] [address] ADULT; ELDER ELDER PER 15 CARE CARE MINUTES DAY CARE S[address] [facility] [address] ADULT; ELDER ELDER PER 15 CARE CARE MINUTES HOME S5170 KE [facility] 7 CO. ADULT CO. ADULT MEALS DAY DAY INCLUDING ELDER ELDER PREPARATI ON; PER MEAL HOME CARE S5108 [facility] [address] ELDER ELDER CARE CARE CARE CLIENT PER 15 MIN HOME CARE S5108 [facility] [address] ELDER ELDER CARE CARE CARE CLIENT PER 15 MIN HOME S5170 KE [facility] 7 CO. ADULT CO. ADULT MEALS DAY DAY INCLUDING ELDER ELDER PREPARATI ON; PER MEAL DAY CARE S[address] [facility] [address] ADULT; ELDER ELDER PER 15 CARE CARE MINUTES DAY CARE S5100 [facility] [address] ADULT; ELDER ELDER PER 15 CARE CARE MINUTES HOME S5170 KE [facility] 7 CO. ADULT CO. ADULT MEALS DAY DAY INCLUDING ELDER ELDER PREPARATI ON; PER MEAL HOME CARE S5108 KE [facility] [address] ELDER ELDER CARE CARE CARE CLIENT PER 15 MIN HOME CARE S5108 KE [facility] [address] ELDER ELDER CARE CARE CARE CLIENT PER 15 MIN HOME S5170 KE G[facility] 7 CO. ADULT CO. ADULT MEALS DAY DAY INCLUDING ELDER ELDER PREPARATI ON; PER MEAL DAY CARE S5100 [facility] [address] ADULT; ELDER ELDER PER 15 CARE CARE MINUTES DAY CARE S[address]100 [address] ADULT; ELDER ELDER PER 15 CARE CARE MINUTES HOME CARE S5108 KE [facility] [address] ELDER ELDER CARE CARE CARE CLIENT PER 15 MIN HOME S5170 KE G[facility] 7 CO. ADULT CO. ADULT MEALS DAY DAY INCLUDING ELDER ELDER PREPARATI ON; PER MEAL HOME CARE S5108 KE [facility] TRAINING 7 [facility] ELDER ELDER CARE CARE CARE CLIENT PER 15 MIN DAY CARE S5100 KE [facility] [address] [place] [address] ADULT; ELDER ELDER PER 15 CARE CARE MINUTES RADIOLOGI 15435 [place] [facility] EXAM 7 MEDICAL CHEST 2 IMAGING VIEWS ASS FRONTAL&L ATERAL RADIOLOGI 34796 [place] [facility] 7 MEDICAL EXAMINATI IMAGING ON CHEST ASS [place] FRONTAL RADIOLOGI 37979 [facility] EXAM 7 PHYSICIAN CHEST 2 S, PLLC VIEWS FRONTAL&L ATERAL HOME S5170 KE GONZ[facility] 7 CO. ADULT CO. ADULT MEALS DAY DAY INCLUDING ELDER [place] [address] [place] [facility] HEAD/BRAI 7 MEDICAL N W/O IMAGING CONTRAST ASS MATERIAL AMBULANCE [id number] [employer] [facility] SERVICE 7 AMBULANCE AMBULANCE BLS SERVICE SERVICE EMERGENCY TRANSPORT HOME CARE S5108 KE [facility] TRAINING [address] [place] [address] ELDER ELDER CARE CARE CARE CLIENT PER 15 MIN GROUND A0425 weeSPIN [facility] MILEAGE 7 AMBULANCE AMBULANCE PER SERVICE SERVICE STATUTE MILE RADEX 11741 [place] [facility] SHOULDER 7 MEDICAL COMPLETE IMAGING MINIMUM 2 ASS VIEWS RADEX HIP 90896 [place] [facility] 7 MEDICAL UNILATERA IMAGING L WITH ASS PELVIS 2-3 VIEWS DAY CARE S5100 [facility] [address] [place] [address] ADULT; ELDER ELDER PER 15 CARE CARE MINUTES HOME CARE S5108 KE [facility] TRAINING [address] [place] [address] ELDER ELDER CARE CARE CARE CLIENT PER 15 MIN HOME S5170 KE G[facility] 7 CO. ADULT CO. ADULT MEALS DAY DAY INCLUDING ELDER ELDER PREPARATI ON; PER MEAL HOME S5170 KE [facility] 7 CO. ADULT CO. ADULT MEALS DAY DAY INCLUDING ELDER ELDER PREPARATI ON; PER MEAL HOME CARE S5108 KE [facility] TRAINING 7 [facility] ELDER ELDER CARE CARE CARE CLIENT PER 15 MIN HOME CARE S5108 KE [facility] TRAINING [address] [place] [address] ELDER ELDER CARE CARE CARE CLIENT PER 15 MIN HOME S5170 KE [facility] 7 CO. ADULT CO. ADULT MEALS DAY DAY INCLUDING ELDER ELDER PREPARATI ON; PER MEAL DAY CARE S[address] [facility] [address] ADULT; ELDER ELDER PER 15 CARE CARE MINUTES DAY CARE S5100 [facility] [address] ADULT; ELDER ELDER PER 15 CARE CARE MINUTES SCREENING [id number] [facility] 7 MEDICAL MAMMOGRAP IMAGING HY JULY ASS INCL CAD WHEN PERFORMD HOME S5170 KE [facility] 7 CO. ADULT CO. ADULT MEALS DAY INCLUDING ELDER ELDER PREPARATI ON; PER MEAL HOME CARE S5108 KE [facility] [address] ELDER ELDER CARE CARE CARE CLIENT PER 15 MIN SCREENING 42642 KE [facility] MAMMOGRAP INC INC HY BI 2-VIEW BREAST INC CAD HOME S5170 KE GONZALEZ 7 CO. ADULT CO. ADULT MEALS DAY DAY INCLUDING ELDER ELDER PREPARATI ON; PER MEAL HOME CARE S5108 KE DEMP[facility] [address] ELDER ELDER CARE CARE CARE CLIENT PER 15 MIN DAY CARE S5100 KE KE [address] ADULT; ELDER ELDER PER 15 CARE CARE MINUTES DAY CARE S5100 [facility] [address] ADULT; ELDER ELDER PER 15 CARE CARE MINUTES HOME CARE S5108 KE DEMP[facility]Y [address] ELDER ELDER CARE CARE CARE CLIENT PER 15 MIN HOME S5170 KE GONZALEZ 7 CO. ADULT CO. ADULT MEALS DAY DAY INCLUDING ELDER ELDER PREPARATI ON; PER MEAL HOME S5170 KE GONZALEZ 7 CO. ADULT CO. ADULT MEALS DAY DAY INCLUDING ELDER ELDER PREPARATI ON; PER MEAL HOME CARE S5108 KE DEMP[facility]Y [address] ELDER ELDER CARE CARE CARE CLIENT PER 15 MIN NONEMERG A0120 FEDERATED FEDERATED TRNSPRT: 7 MINI-BUS TRANSPORT TRANSPORT MTN ATION SER ATION SER AREA/OTH SYS DAY CARE S5100 [facility]TT DEMPSEY [address] ADULT; ELDER ELDER PER 15 CARE CARE MINUTES DAY CARE S5100 KE DEMP[facility] [address] ADULT; ELDER ELDER PER 15 CARE CARE MINUTES HOME CARE S5108 KE DEMP[facility] [address] ELDER ELDER CARE CARE CARE CLIENT PER 15 MIN HOME S5170 KE GONZALEZ 7 CO. ADULT CO. ADULT MEALS DAY DAY INCLUDING ELDER ELDER PREPARATI ON; PER MEAL HOME S5170 KE GONZALEZ 7 CO. ADULT CO. ADULT MEALS DAY DAY INCLUDING ELDER ELDER PREPARATI ON; PER MEAL HOME CARE S5108 KE DEMP[facility] [address] ELDER ELDER CARE CARE CARE CLIENT PER 15 MIN DAY CARE S5100 KE DEMP[facility] [address] ADULT; ELDER ELDER PER 15 CARE CARE MINUTES DAY CARE S5100 KE DEMP[facility] [address] ADULT; ELDER ELDER PER 15 CARE CARE MINUTES HOME S5170 KE GONZALEZ 7 CO. ADULT CO. ADULT MEALS DAY DAY INCLUDING ELDER ELDER PREPARATI ON; PER MEAL HOME CARE S5108 KE DEMP[facility] [address] ELDER ELDER CARE CARE CARE CLIENT PER 15 MIN HOME CARE S5108 KE DEMPSEY [address] ELDER ELDER CARE CARE CARE CLIENT PER 15 MIN HOME S5170 KE GONZALEZ 7 CO. ADULT CO. ADULT MEALS DAY DAY INCLUDING ELDER ELDER PREPARATI ON; PER MEAL HOME S5170 KE GONZALEZ 7 CO. ADULT CO. ADULT MEALS DAY DAY INCLUDING ELDER ELDER PREPARATI ON; PER MEAL HOME CARE S5108 KE [facility] [address] ELDER ELDER CARE CARE CARE CLIENT PER 15 MIN DAY CARE S5100 KE DEMP[facility] [address] ADULT; ELDER ELDER PER 15 CARE CARE MINUTES DAY CARE S5100 KE DEM[facility] [address] ADULT; ELDER ELDER PER 15 CARE CARE MINUTES HOME CARE S5108 KE DEMP[facility] [address] ELDER ELDER CARE CARE CARE CLIENT PER 15 MIN HOME S5170 KE GONZALEZ 7 CO. ADULT CO. ADULT MEALS DAY DAY INCLUDING ELDER ELDER PREPARATI ON; PER MEAL HOME S5170 KE PENNIV 7 CO. ADULT CO. ADULT MEALS DAY DAY INCLUDING ELDER ELDER PREPARATI ON; PER MEAL HOME CARE S5108 KE DEMP[facility] TRAINING 7 [facility] ELDER ELDER CARE CARE CARE CLIENT PER 15 MIN DAY CARE S5100 KE [facility] SERVICES [address] [place] [address] ADULT; ELDER ELDER PER 15 CARE CARE MINUTES DAY CARE S5100 [facility] [address] [place] [address] ADULT; ELDER ELDER PER 15 CARE CARE MINUTES HOME CARE S5108 KE DEMP[facility] TRAINING 7 [facility] ELDER ELDER CARE CARE CARE CLIENT PER 15 MIN HOME CARE S5108 KE DEMPSEY TRAINING [address] [place] [address] ELDER ELDER CARE CARE CARE CLIENT PER 15 MIN DAY CARE S5100 KE [facility] [address] [place] [address] ADULT; ELDER ELDER PER 15 CARE CARE MINUTES DAY CARE S5100 KE [facility] [address] [place] [address] ADULT; ELDER ELDER PER 15 CARE CARE MINUTES HOME CARE S5108 KE DEMP[facility] TRAINING [address] [place] [address] ELDER ELDER CARE CARE CARE CLIENT PER 15 MIN HOME CARE S5108 KE DEMPSEY TRAINING [address] [place] [address] ELDER ELDER CARE CARE CARE CLIENT PER 15 MIN DAY CARE S5100 KE [facility] [address] [place] [address] ADULT; ELDER ELDER PER 15 CARE CARE MINUTES DAY CARE S5100 KE [facility] [address] [place] [address] ADULT; ELDER ELDER PER 15 CARE CARE MINUTES HOME CARE S5108 KE DEMPSE[facility] TRAINING [address] [place] [address] ELDER ELDER CARE CARE CARE CLIENT PER 15 MIN HOME CARE S5108 KE DEMPSEY TRAINING [address] [place] [address] ELDER ELDER CARE CARE CARE CLIENT PER 15 MIN DAY CARE S5100 KE [facility] [address] [place] [address] ADULT; ELDER ELDER PER 15 CARE CARE MINUTES DAY CARE S5100 [facility] [address] [place] [address] ADULT; ELDER ELDER PER 15 CARE CARE MINUTES HOME CARE S5108 KE DEMPSE[facility] TRAINING [address] [place] [address] ELDER ELDER CARE CARE CARE CLIENT PER 15 MIN HOME CARE S5108 KE DEMPSEY TRAINING [address] [place] [address] ELDER ELDER CARE CARE CARE CLIENT PER 15 MIN DAY CARE S5100 KE [facility] [address] [place] [address] ADULT; ELDER ELDER PER 15 CARE CARE MINUTES DAY CARE S5100 [facility] [address] [place] [address] ADULT; ELDER ELDER PER 15 CARE CARE MINUTES HOME CARE S5108 KE DEMP[facility] TRAINING 7 [facility] ELDER ELDER CARE CARE CARE CLIENT PER 15 MIN HOME CARE S5108 KE DEMPSEY TRAINING [address] [place] [address] ELDER ELDER CARE CARE CARE CLIENT PER 15 MIN DAY CARE S5100 KE [facility] [address] [place] [address] ADULT; ELDER ELDER PER 15 CARE CARE MINUTES DAY CARE S5100 [facility] [address] [place] [address] ADULT; ELDER ELDER PER 15 CARE CARE MINUTES HOME CARE S5108 KE DEMP[facility] TRAINING 7 [facility] ELDER ELDER CARE CARE CARE CLIENT PER 15 MIN HOME CARE S5108 KE DEMPSEY TRAINING [address] [place] [address] ELDER ELDER CARE CARE CARE CLIENT PER 15 MIN DAY CARE S5100 KE [facility] [address] [place] [address] ADULT; ELDER ELDER PER 15 CARE CARE MINUTES DAY CARE S5100 KE [facility] [address] [place] [address] ADULT; ELDER ELDER PER 15 CARE CARE MINUTES HOME CARE S5108 KE DEMPSE[facility] TRAINING [address] [place] [address] ELDER ELDER CARE CARE CARE CLIENT PER 15 MIN OPHTH [address] [place] [address] [facility] COMPRHNSV ESTAB PT 1/> HOME CARE S5108 KE DEMPSEY TRAINING [address] [place] [address] ELDER ELDER CARE CARE CARE CLIENT PER 15 MIN DAY CARE S5100 KE [facility] [address] [place] [address] ADULT; ELDER ELDER PER 15 [place] [address] KE DEMP[facility]Y INFUSION 7 [facility] THERAPY INC INC PROPHYLAX IS/DX EA HOUR BLOOD 13344 KE [facility] COUNT 7 [facility] COMPLETE INC INC AUTO&[place] [address] KE DEM[facility] INFUSION 7 [facility] THERAPY/P INC INC ROPHYLAXI S /DX 1ST TO 1 HR COMPREHEN 59054 KE [facility] SIVE 7 [facility] [address] KE DEMP[facility] STREPTOCO 7 [facility] CCUS INC INC GROUP A CUL BACT 33254 KE DEMP[facility] XCPT 7 [facility] URINE INC INC BLOOD/STO OL AEROBIC ISOL GROUND A0425 [facility] 7 AMBULANCE AMBULANCE [place] [address] KE DEMP[facility] INFUSION 7 [facility] THER INC INC PROPH ADDL SEQUENTIA L TO 1 HR RADIOLOGI 88932 [place] [facility] 7 MEDICAL EXAMINATI IMAGING ON CHEST ASS SINGLE VIEW FRONTAL AMBULANCE A0429 [facility] SERVICE 7 AMBULANCE AMBULANCE BLS SERVICE SERVICE EMERGENCY TRANSPORT NONEMERG A0120 FEDERATED FEDERATED TRNSPRT: 7 MINI-BUS TRANSPORT TRANSPORT [facility]/OT SYS HOME S5170 KE GONZALEZ 7 CO. ADULT CO. ADULT MEALS DAY DAY INCLUDING ELDER ELDER PREPARATI ON; PER MEAL DAY CARE S5100 [place] KE [address] ADULT; ELDER ELDER PER 15 CARE [...] PREPARATI ON; PER MEAL DAY CARE S[address] ADULT; ELDER ELDER PER 15 CARE CARE MINUTES NONEMERG A0120 FEDERATED FEDERATED TRNSPRT: 7 MINI-BUS TRANSPORT TRANSPORT [facility]/OT SYS DAY CARE S[address] ADULT; ELDER ELDER PER 15 CARE [...] PREPARATI ON; PER MEAL DAY CARE S[address] ADULT; ELDER ELDER PER 15 CARE [...] PREPARATI ON; PER MEAL DAY CARE S[address] ADULT; ELDER ELDER PER 15 CARE CARE MINUTES DAY CARE S[address] ADULT; ELDER ELDER PER 15 CARE [...] ELDER ELDER PREPARATI ON; PER MEAL APPL 53777 KE DEM[facility] MODALITY 7 [facility] 1/> AREAS INC INC ELEC STIMJ UNATTENDE D THERAPEUT 51088 KE DEMPSEY IC PX 1/> 7 [facility] AREAS INC INC EACH 15 MIN EXERCISES DAY CARE S5100 KE KE SERVICES [address] [place] [address] ADULT; ELDER ELDER PER 15 CARE CARE MINUTES APPLICATI 44807 KE KE ON 7 [facility] MODALITY INC INC 1/> AREAS HOT/COLD PACKS APPL 99858 KE [place] MODALITY 7 [facility] 1/> AREAS INC INC ULTRASOUN D EA 15 MIN DAY CARE S5100 [facility] DEM[facility] SERVICES [address] [place] [address] ADULT; ELDER ELDER PER 15 CARE CARE MINUTES APPL 21396 KE DEMP[facility] MODALITY 7 [facility] 1/> AREAS INC INC ULTRASOUN D EA 15 MIN APPLICATI 00660 KE DEMPSEY ON 7 [facility] MODALITY INC INC 1/> AREAS HOT/COLD PACKS THERAPEUT 96474 KE DEMPSEY IC PX 1/> 7 [facility] AREAS INC INC EACH 15 MIN EXERCISES NONEMERG A0120 FEDERATED FEDERATED TRNSPRT: 7 MINI-BUS TRANSPORT TRANSPORT MTN ATION SER ATION SER [facility]/OTH SYS APPL 96995 KE DEMP[facility] MODALITY 7 [facility] 1/> AREAS INC INC ELEC STIMJ UNATTENDE D HOME S5170 KE GONZLAEZ 7 CO. ADULT CO. ADULT MEALS DAY DAY INCLUDING ELDER ELDER PREPARATI ON; PER MEAL PHYSICAL 92033 KE [facility] THERAPY 7 [facility] EVALUATIO INC INC N MOD COMPLEX 30 MINS DAY CARE S5100 [address] [facility] [address] ADULT; ELDER ELDER PER 15 CARE CARE MINUTES DAY CARE S5100 KE DEMP[facility] [address] ADULT; ELDER ELDER PER 15 CARE CARE MINUTES HOME S5170 KE GONZALEZ 7 CO. ADULT CO. ADULT MEALS DAY DAY INCLUDING ELDER ELDER PREPARATI ON; PER MEAL NONEMERG A0120 FEDERATED FEDERATED TRNSPRT: 7 MINI-BUS TRANSPORT TRANSPORT MTN ATION SER ATION SER [facility]/OT SYS DAY CARE S5100 KE DEMP[facility] [address] ADULT; ELDER ELDER PER 15 CARE CARE MINUTES DAY CARE S5100 [facility] SERVICES [address] [place] [address] ADULT; ELDER ELDER PER 15 CARE CARE MINUTES DRUG 72680 LAB OTIS LAB OTIS SCREEN 7 YFN YFN [employer] SWAPNIL LEVETIRAC ETAM NONEMERG A0120 FEDERATED FEDERATED TRNSPRT: 7 MINI-BUS TRANSPORT TRANSPORT MTN ATION SER ATION SER AREA/OTH SYS COMPREHEN 54724 COMBINED COMBINED SIVE 7 PHYSICIAN PHYSICIAN METABOLIC S LA S LA PANEL LIPID 68613 COMBINED COMBINED PANEL 7 [place] [address] COMBINED COMBINED FREE 7 PHYSICIAN PHYSIC[place] [address] COMBINED COMBINED THYROID 7 PHYSICIAN PHYSICIAN STIMULATI S LA S LA NG HORMONE TSH BLOOD 39490 COMBINED COMBINED COUNT 7 PHYSICIAN PHYSICIAN COMPLETE S LA S LA AUTO&AUTO DIFRNTL WBC INJECTION J0696 [facility] 7 PHYSICIAN CEFTRIAXO S GROUP NE SODIUM PER 250 MG INJECTION J1100 [facility] 7 PHYSICIAN DEXAMETHO S GROUP SONE SODIUM PHOSPHATE 1 MG THERAPEUT 46609 [facility] IC 7 PHYSICIAN PROPHYLAC S GROUP TIC/DX INJECTION SUBQ/IM FOR DIAB A5512 ELITE ELITE ONLY MX 7 MEDICAL MEDICAL DNSITY SUPPLY [employer] FORMD PRFAB EA DIAB ONLY A5500 [facility] EL[facility] FIT CSTM 7 MEDICAL MEDICAL PREP&SPL SUPPLY SUPPLY [employer] DNSITY INSRT SBSQ 80360 [facility] NURSING 7 FACILITY CARE/DAY E/M STABLE 10 MIN NONEMERG A0120 FEDERATED FEDERATED TRNSPRT: 7 MINI-BUS TRANSPORT TRANSPORT MTN ATION SER ATION SER AREA/OTH SYS DRUG 87010 LAB OTIS LAB OTIS SCREEN 7 [facility] YFN [employer] SWAPNIL LEVETIRAC ETAM NONEMERG A0120 FEDERATED FEDERATED TRNSPRT: 7 MINI-BUS TRANSPORT TRANSPORT MTN ATION SER ATION SER AREA/OTH SYS SBSQ 66320 [facility] NURSING 7 FACILITY CARE/DAY E/M STABLE 10 MIN NONEMERG A0120 FEDERATED FEDERATED TRNSPRT: 7 MINI-BUS TRANSPORT TRANSPORT MTN ATION SER ATION SER AREA/OTH SYS NONEMERG A0120 FEDERATED FEDERATED TRNSPRT: 7 MINI-BUS TRANSPORT TRANSPORT MTN ATION SER ATION SER AREA/OTH SYS DRUG 11621 LAB OTIS LAB OTIS SCREEN 7 YFN YFN [employer] SWAP[employer]IL LEVETIRAC ETAM NONEMERG A0120 FEDERATED FEDERATED TRNSPRT: 7 MINI-BUS TRANSPORT TRANSPORT MTN ATION SER ATION SER [facility]/OTH SYS E/M 03701 [facility] ANNUAL 7 NURSING FACILITY ASSESS STABLE 30 MIN DRUG 28627 COMBINED COMBINED SCREEN 7 PHYSICIAN PHYSICIAN QUANTITAT S LA S LA SWAPNIL PHENYTOIN TOTAL NONEMERG A0120 FEDERATED FEDERATED TRNSPRT: 7 MINI-BUS TRANSPORT TRANSPORT MTN ATION SER ATION SER AREA/OTH SYS NONEMERG A0120 FEDERATED FEDERATED TRNSPRT: 7 MINI-BUS TRANSPORT TRANSPORT MTN ATION SER ATION SER AREA/OTH SYS GROUND A0425 [facility] 7 AMBULANCE AMBULANCE PER SERVICE SERVICE STATUTE MILE RADEX 45097 [facility] SPINE 7 MEDICAL LUMBOSACR IMAGING AL 2/3 ASS VIEWS AMBULANCE A0429 [facility] SERVICE 7 AMBULANCE AMBULANCE BLS SERVICE SERVICE EMERGENCY TRANSPORT RADEX HIP 09086 [place] [facility] 7 MEDICAL UNILATERA IMAGING L WITH ASS PELVIS 2-3 VIEWS RADIOLOGI 65082 [place] [facility] C 7 MEDICAL EXAMINATI IMAGING ON KNEE 3 ASS VIEWS DRUG 16496 LAB OTIS LAB OTIS SCREEN 7 YFN YFN [employer] SWAPNIL LEVETIRAC ETAM DRUG 03999 COMBINED COMBINED SCREEN 7 PHYSICIAN PHYSICIAN QUANTITAT S LA S LA SWAPNIL PHENYTOIN TOTAL AMBULANCE A0429 [facility] SERVICE 6 AMBULANCE AMBULANCE BLS SERVICE SERVICE EMERGENCY TRANSPORT RADIOLOGI 53181 [facility] C 6 MEDICAL EXAMINATI IMAGING ON CHEST ASS SINGLE VIEW FRONTAL GROUND A0425 [facility] 6 AMBULANCE AMBULANCE PER SERVICE SERVICE STATUTE MILE DRUG 09299 COMBINED COMBINED SCREEN 6 PHYSICIAN PHYSICIAN QUANTITAT S LA S LA SWAPNIL PHENYTOIN TOTAL SBSQ 92612 [facility] 6 FACILITY CARE/DAY E/M STABLE 10 MIN NONEMERG A0120 FEDERATED FEDERATED TRNSPRT: 6 MINI-BUS TRANSPORT TRANSPORT MT[facility] SER AREA/OTH SYS NONEMERG A0120 FEDERATED FEDERATED TRNSPRT: 6 MINI-BUS TRANSPORT TRANSPORT MTN [facility] SER [facility] SER AREA/OTH SYS GROUND A0425 [facility] MILEAGE 6 AMBULANCE AMBULANCE PER SERVICE SERVICE STATUTE MILE AMBULANCE A0429 [facility] SERVICE 6 AMBULANCE AMBULANCE BLS SERVICE SERVICE EMERGENCY TRANSPORT DRUG 73684 LAB OTIS LAB OTIS SCREEN 6 YFN YFN [employer] SWAPNIL LEVETIRAC ETAM DRUG 57452 COMBINED COMBINED SCREEN 6 PHYSICIAN PHYSICIAN QUANTITAT S LA S LA SWAPNIL PHENYTOIN TOTAL NONEMERG A0120 FEDERATED FEDERATED TRNSPRT: 6 MINI-BUS TRANSPORT TRANSPORT MTN ATION SER [facility] SER AREA/OTH SYS SBSQ 17600 [facility] N[facility] 6 [facility] FACILITY CARE/DAY E/M STABLE 10 MIN NONEMERG A0120 FEDERATED FEDERATED TRNSPRT: 6 MINI-BUS TRANSPORT TRANSPORT MTN [facility] SER [facility] SER AREA/OTH SYS DRUG 05633 COMBINED COMBINED SCREEN 6 PHYSICIAN PHYSICIAN QUANTITAT S LA S LA SWAPNIL PHENYTOIN TOTAL GROUND A0425 [facility] MILEAGE 6 AMBULANCE AMBULANCE PER SERVICE SERVICE STATUTE MILE DRUG 80162 LAB OTIS LAB OTIS SCREEN 6 YFN YFN [employer] SWAPNIL LEVETIRAC ETAM AMBULANCE A0429 [facility] SERVICE 6 AMBULANCE AMBULANCE BLS SERVICE SERVICE EMERGENCY TRANSPORT AMBULANCE A0429 [facility] SERVICE 6 AMBULANCE AMBULANCE BLS SERVICE SERVICE EMERGENCY TRANSPORT GROUND A0425 [facility] MILEAGE 6 AMBULANCE AMBULANCE PER SERVICE SERVICE STATUTE MILE RADEX 05096 SR[facility] ALL WRIST 6 MEDICAL COMPLETE IMAGING MINIMUM 3 ASS VIEWS GLUC BLD 01078 KE KE TRIANA MNTR 6 [facility] DEV INC INC CLEARED FDA SPEC HOME USE SBSQ 72727 [facility] 6 [facility] FACILITY CARE/DAY E/M STABLE 10 MIN GROUND A0425 [facility] AMBUL[facility] PER SERVICE SERVICE STATUTE MILE AMBULANCE A0429 [facility] SERVICE 6 AMBULANCE AMBULANCE BLS SERVICE SERVICE EMERGENCY TRANSPORT DRUG 61617 COMBINED COMBINED SCREEN 6 PHYSICIAN PHYSICIAN QUANTITAT S LA S LA SWAPNIL PHENYTOIN TOTAL RADIOLOGI 69067 SR[facility] ALL C 6 MEDICAL EXAMINATI IMAGING ON CHEST ASS SINGLE VIEW FRONTAL GROUND A0425 [facility] AMBULANCE PER SERVICE SERVICE STATUTE MILE AMB A0427 [facility] SERVICE 6 AMBULANCE AMBULANCE ALS SERVICE SERVICE EMERGENCY TRANSPORT LEVEL 1 ECG 34306 KE TILLMAN JR ROUTINE 6 [facility] W/LEAST P 12 LDS I&R ONLY AMB A0427 [facility] SERVICE 6 AMBULANCE AMBULANCE ALS SERVICE SERVICE EMERGENCY TRANSPORT LEVEL 1 GROUND A0425 [facility] MILEAGE 6 AMBULANCE AMBULANCE PER SERVICE SERVICE STATUTE MILE DRUG 19206 COMBINED COMBINED SCREEN 6 PHYSICIAN PHYSICIAN QUANTITAT S LA S LA SWAPNIL PHENYTOIN TOTAL SBSQ 80217 [facility] NURSING 6 [facility] FACILITY CARE/DAY E/M STABLE 10 MIN DRUG 90294 COMBINED COMBINED SCREEN 6 PHYSICIAN PHYSICIAN QUANTITAT S LA S LA SWAPNIL PHENYTOIN TOTAL DRUG 16071 LAB OTIS LAB OTIS SCREEN 6 YFN YFN [employer] SWAPNIL LEVETIRAC ETAM GROUND A0425 [facility] MILEAGE 6 AMBULANCE AMBULANCE PER SERVICE SERVICE STATUTE MILE AMBULANCE A0429 [facility] SERVICE 6 AMBULANCE AMBULANCE BLS SERVICE SERVICE EMERGENCY TRANSPORT AMBULANCE A0429 [facility] SERVICE 6 AMBULANCE AMBULANCE BLS SERVICE SERVICE EMERGENCY TRANSPORT GROUND A0425 [facility] MILEAGE 6 AMBULANCE AMBULANCE PER SERVICE SERVICE STATUTE MILE DRUG 98426 LAB OTIS LAB OTIS SCREEN 6 YFN YFN [employer] SWAPNIL LEVETIRAC ETAM NONEMERG A0120 FEDERATED FEDERATED TRNSPRT: 6 MINI-BUS TRANSPORT TRANSPORT MTN [facility] AREA/OTH SYS DRUG 48184 KE [facility] SCREEN 6 [facility] QUANTITAT INC INC SWAPNIL PHENYTOIN TOTAL COLLECTIO 47545 KE DEMP[facility]Y N VENOUS 6 [facility] BLOOD INC INC VENIPUNCT URE COMPREHEN 40804 KE DEM[facility] SIVE 6 [facility] METABOLIC INC INC PANEL GROUND A0425 [facility] MILEAGE 6 AMBULANCE AMBULANCE PER SERVICE SERVICE STATUTE MILE AMB A0427 [facility] SERVICE 6 AMBULANCE AMBULANCE ALS SERVICE SERVICE [place] [address] [place] [address] KE DEMP[facility]Y HEAD/BRAI 6 [facility] N W/[place] [address] [place] [facility] ALL CERVICAL 6 MEDICAL SPINE W/O IMAGING CONTRAST ASS MATERIAL BLOOD 67244 KE [facility] COUNT 6 [facility] COMPLETE INC INC AUTO&AUTO DIFRNTL WBC AMBULANCE A0429 [facility] SERVICE 6 AMBULANCE AMBULANCE BLS SERVICE SERVICE EMERGENCY TRANSPORT GROUND A0425 [facility] MILEAGE 6 AMBULANCE AMBULANCE PER SERVICE SERVICE STATUTE MILE GROUND A0425 [facility] MILEAGE 6 AMBULANCE AMBULANCE PER SERVICE SERVICE STATUTE MILE SIMPLE 31991 [facility] PHYSICIAN U BEN SCALP/NEC S, PLLC K/AX/TEJINDER T/TRUNK 2.5CM/< AMBULANCE A0429 [facility] SERVICE 6 AMBULANCE AMBULANCE BLS SERVICE SERVICE EMERGENCY TRANSPORT [facility] AIDED 6 MEDICAL FIDEL DETECTION IMAGING ASS SCREENING MAMMOGRAP HY NONEMERG A0120 FEDERATED FEDERATED TRNSPRT: 6 MINI-BUS TRANSPORT TRANSPORT [facility]OTH SYS SCREENING G0202 [place] DONNELL 6 MEDICAL FIDEL MAMMOGRAP IMAGING HY JULY ASS INCL CAD WHEN PERFORMD DRUG 19828 LAB OTIS LAB OTIS SCREEN 6 YFN YFN [employer] [place] [address] SRINATH [facility] ALL HEAD/BRAI 6 MEDICAL N W/[place] [address] SRINATH [facility] ALL CERVICAL 6 MEDICAL SPINE W/O IMAGING CONTRAST ASS MATERIAL AMBULANCE A0429 [facility] SERVICE 6 AMBULANCE AMBULANCE S SERVICE SERVICE EMERGENCY TRANSPORT GROUND A0425 [facility] 6 AMBULANCE AMBULANCE PER SERVICE SERVICE STATUTE MILE CT LUMBAR 17884 [facility] ALL SPINE 6 MEDICAL W/O IMAGING CONTRAST ASS MATERIAL RADIOLOGI 25121 [facility] C 6 MEDICAL EXAMINATI IMAGING ON TIBIA ASS & FIBULA 2 VIEWS NONEMERG A0120 [facility] FEDERATED TRNSPRT: 6 MINI-BUS TRANSPORT TRANSPORT [facility] NONEMERG A0120 FEDERATED FEDERATED TRNSPRT: 6 MINI-BUS TRANSPORT TRANSPORT [facility] GROUND A0425 S[facility] MILEAGE 6 [...] SERVICE SERVICE STATUTE MILE AMB A0427 [facility] SERVICE 6 AMBULANCE AMBULANCE ALS SERVICE [place] [address] SRINATH GALLAGHERUTCHER HEAD/BRAI 6 MEDICAL FIDEL N W/O IMAGING CONTRAST ASS MATERIAL NONEMERG A0120 FEDERATED FEDERATED TRNSPRT: 6 MINI-BUS TRANSPORT TRANSPORT [facility] AMB A0427 [facility] SERVICE 6 AMBULANCE AMBULANCE ALS SERVICE SERVICE EMERGENCY TRANSPORT LEVEL 1 GROUND A0425 [facility] MILEAGE 6 AMBULANCE AMBULANCE PER SERVICE SERVICE STATUTE MILE GROUND A0425 [facility] 6 AMBULANCE AMBULANCE PER SERVICE SERVICE STATUTE MILE AMB A0427 [facility] SERVICE 6 AMBULANCE AMBULANCE ALS SERVICE SERVICE EMERGENCY TRANSPORT LEVEL 1 RADEX 22215 KE DEMPSEY SPINE 6 [facility] LUMBOSACR INC INC AL MINIMUM 4 VIEWS RADIOLOGI 26551 KE DEMPSEY C 6 [facility] EXAMINATI INC INC ON PELVIS 1/2 VIEWS AMBULANCE A0429 [facility] SERVICE 6 AMBULANCE AMBULANCE BLS SERVICE SERVICE EMERGENCY TRANSPORT GROUND A0425 [facility] MILEAGE 6 AMBULANCE AMBULANCE PER SERVICE SERVICE STATUTE MILE NONEMERG A0120 FEDERATED FEDERATED TRNSPRT: 6 MINI-BUS TRANSPORT TRANSPORT [facility] AMB A0427 [facility] SERVICE 6 AMBULANCE AMBULANCE ALS SERVICE SERVICE EMERGENCY TRANSPORT LEVEL 1 GROUND A0425 [facility] 6 AMBULANCE AMBULANCE PER SERVICE SERVICE STATUTE MILE [place]ESIERRA [place] A0120 FEDERATED FEDERATED TRNSPRT: 6 MINI-BUS TRANSPORT TRANSPORT [facility] DRUG 85750 LAB OTIS LAB OTIS SCREEN 6 YFN YFN QUANTITAT [employer]INGS SWAPNIL LEVETIRAC ETAM NONESIERRA [place] A0120 FEDERATED FEDERATED TRNSPRT: 6 MINI-BUS TRANSPORT TRANSPORT [facility] GROUND A0425 [facility] MILEAGE 6 AMBULANCE AMBULANCE PER SERVICE SERVICE STATUTE MILE [facility] A0427 [facility] SERVICE 6 AMBULANCE AMBULANCE ALS SERVICE SERVICE EMERGENCY TRANSPORT LEVEL 1 AMB A0427 [facility] SERVICE 6 AMBULANCE AMBULANCE ALS SERVICE SERVICE EMERGENCY TRANSPORT LEVEL 1 GROUND A0425 [facility] MILEAGE 6 AMBULANCE AMBULANCE PER SERVICE SERVICE STATUTE MILE GROUND A0425 [facility] MAR[facility] MILEAGE 6 MEDICAL MEDICAL PER RESPONSE RESPONSE STATUTE MILE [facility] [address] [place] BRIANNA CEPHALOGR 6 MEDICAL [place] AM W/REC SERV [facility]AT[facility] WSY N AMB A0422 MARSHALLESE MARSHALLESE OXYGEN&O2 6 MEDICAL MEDICAL SUPPLIES RESPONSE RESPONSE LIFE SUSTAININ G SITUATION AMBULANCE A0429 [facility] SERVICE 6 AMBULANCE AMBULANCE BLS SERVICE SERVICE EMERGENCY TRANSPORT GROUND A0425 [facility] MILE[facility] 6 AMBULANCE AMBULANCE PER SERVICE SERVICE STATUTE MILE AMB A0427 [facility] SERVICE 6 AMBULANCE AMBULANCE ALS SERVICE SERVICE EMERGENCY TRANSPORT LEVEL 1 RADIOLOGI 46547 [facility] C 6 MEDICAL EXAMINATI IMAGING ON KNEE ASS 1/2 VIEWS NONEMERG A0120 FEDERATED FEDERATED TRNSPRT: 6 MINI-BUS TRANSPORT TRANSPORT MTN ATION SER ATION SER AREA/OTH SYS GROUND A0425 SISI SISI MILEAGE 6 AMBULANCE AMBULANCE PER SERVICE SERVICE STATUTE MILE AMBULANCE A0429 SISI LAIRD SERVICE 6 AMBULANCE AMBULANCE B[place] [address] [facility] HEAD/BRAI [facility] W/[place] [address] [facility] CERVICAL 6 [facility] MEM [...] AMBULANCE BLS SERVICE SERVICE EMERGENCY TRANSPORT RADIOLOGI 10488 [place] ALL C 6 MEDICAL EXAMINATI IMAGING [place] [address] SHELDONY CHUENG ALL HEAD/BRAI 6 MEDICAL N W/[place] [address] KE [place] HEAD/BRAI 6 [facility] N W/O INC INC CONTRAST MATERIAL RAD[facility]OLOGI 91812 [facility] [place] [facility] 6 MEDICAL EXAMINATI IMAGING ON CHEST ASS SINGLE VIEW FRONTAL GROUND A0425 [facility] AM[facility] PER SERVICE SERVICE STATUTE MILE AMB A0427 [facility] SERVICE 6 AMBULANCE AMBULANCE ALS SERVICE SERVICE EMERGENCY TRANSPORT LEVEL 1 NONEMERG A0120 FEDERATED FEDERATED TRNSPRT: 6 MINI-BUS TRANSPORT TRANSPORT [facility]OT SYS AMB A0427 [facility] SERVICE 6 AMBULANCE AMBULANCE ALS SERVICE SERVICE EMERGENCY TRANSPORT LEVEL 1 GROUND A0425 [facility] [place] [address] [facility] CERVICAL 6 [facility] SPINE W/[place] [address] [facility] HEAD/BRAI 6 [facility] N W/O INC INC CONTRAST MATERIAL NONEMERG A0120 FEDERATED FEDERATED TRNSPRT: 6 MINI-BUS TRANSPORT TRANSPORT [facility]/OT SYS QUANTITAT 66239 [facility] ION DRUG 6 [facility] NOT INC INC ELSEWHERE SPECIFIED DRUG 89053 [facility] SCREEN 6 [facility] QUANTITAT INC INC SWAPNIL PHENYTOIN TOTAL URNLS DIP 03565 [facility] 6 [facility] STICK/TAB INC INC LET REAGENT AUTO MICROSCOP Y BLOOD 54785 [facility] COUNT 6 [facility] COMPLETE INC INC AUTO&AUTO DIFRNTL WBC BLOOD 03451 [facility] COUNT 6 [facility] COMPLETE INC INC AUTO&AUTO DIFRNTL WBC DRUG 46375 [facility] SCREEN 6 [facility] QUANTITAT INC INC SWAPNIL PHENYTOIN TOTAL COMPREHEN 37040 [facility] SIVE 6 [facility] METABOLIC INC INC PANEL COLLECTIO 48497 COMBINED COMBINED N VENOUS 6 PHYSICIAN PHYSICIAN B[place] [address] [facility] HEAD/BRAI 6 [facility] N W/O INC INC CONTRAST MATERIAL ELECTROEN 07334 [facility] CEPHALOGR 6 N N AM EXTEND COMMUNTIY COMMUNTIY HOSPITA HOSPITA MONITORIN G 41-60 MIN NONEMERG A0120 FEDERATED FEDERATED TRNSPRT: 6 MINI-BUS TRANSPORT TRANSPORT MTN ATION SER [facility] ELECTROEN 62646 REJI HUTCHINS JAVIER CEPHALOGR 6 N AM W/REC NEUROLOGY AWAKE&ASL EEP DRUG 66602 [facility] SCREEN 6 [facility] QUANTITAT INC INC SWAPNIL PHENYTOIN TOTAL DRUG 35309 [facility] SCREEN 6 [facility] QUANTITAT INC INC SWAPNIL PHENYTOIN TOTAL COMPREHEN 37944 [facility] SIVE 6 [facility] METABOLIC INC INC PANEL RADIOLOGI 30135 [facility] C 6 [facility] EXAMINATI INC [place] [address] KE [facility] HEAD/BRAI 6 [facility] N W/O INC INC CONTRAST MATERIAL BLOOD 37763 [facility] COUNT 6 [facility] COMPLETE INC INC AUTO&AUTO DIFRNTL WBC NONEMERG A0120 FEDERATED FEDERATED TRNSPRT: 5 MINI-BUS TRANSPORT TRANSPORT MTN ATION SER [facility]OT S[facility] CONTINUOU E0601 ZULEYMA AMOR S 5 HOME HOME POSITIVE MEDICAL MEDICAL AIRWAY EQUIPME EQUIPME PRESSURE DEVICE NONEMERG A0120 FEDERATED FEDERATED TRNSPRT: 5 MINI-BUS TRANSPORT TRANSPORT MTN ATION SER [facility] S[facility] COMPREHEN 55053 [facility] SIVE 5 [facility] METABOLIC INC INC PANEL DRUG 86763 KE [facility] SCREEN 5 [facility] QUANTITAT INC INC SWAPNIL PHENYTOIN TOTAL URNLS DIP 48125 [facility] 5 [facility] STICK/TAB INC INC LET REAGENT AUTO MICROSCOP Y BLOOD 96055 [facility] COUNT 5 [facility] COMPLETE INC INC AUTO&AUTO DIFRNTL WBC GLUC BLD 45185 [facility] GLUC MNTR 5 [facility] DEV INC INC CLEARED FDA SPEC HOME USE GLUCOSE 15614 [facility] QUANTITAT 5 [facility]OS[facility] SWAPNIL BLOOD INC INC XCPT REAGENT STRIP BLOOD 36198 [facility] COUNT 5 N N COMPLETE COMMUNTIY COMMUNTIY AUTO&AUTO HOSPITA HOSPITA DIFRNTL WBC DRUG 30086 [facility] SCREEN 5 N N QUANTITAT COMMUNTIY COMMUNTIY SWAPNIL HOSPITA HOSPITA PHENYTOIN TOTAL COMPREHEN 53332 [facility] SIVE 5 N N METABOLIC COMMUNTIY COMMUNTIY PANEL HOSPITA HOSPITA COLLECTIO 13086 [facility] N VENOUS 5 N N BLOOD COMMUNTIY COMMUNTIY VENIPUNCT HOSPITA HOSPITA URE NONEMERG A0120 FEDERATED FEDERATED TRNSPRT: 5 MINI-BUS TRANSPORT TRANSPORT MTN [facility] AREA/OTH SYS NONEMERG A0120 FEDERATED FEDERATED TRNSPRT: 5 MINI-BUS TRANSPORT TRANSPORT MTN [facility]/OTH SYS CONTINUOU E0601 ZULEYMA AMOR S 5 HOME HOME POSITIVE MEDICAL MEDICAL AIRWAY EQUIPME EQUIPME PRESSURE DEVICE GLUC BLD 47800 [facility] GLUC MNTR 5 [facility] DEV INC INC CLEARED FDA SPEC HOME USE COLONOSCO 56279 [facility] PY FLX DX 5 [facility] W/[place]LL[place] [address] [facility] INFUSION 5 [facility] THERAPY/P INC INC ROPHYLAXI S /DX 1ST TO 1 [place] [address] [facility] INFUSION 5 [facility] THERAPY INC INC PROPHYLAX IS/DX EA HOUR COLLECTIO 19591 COMBINED COMBINED N VENOUS 5 PHYSICIAN PHYSICIAN BLOOD S LA S LA VENIPUNCT URE DRUG 61076 COMBINED COMBINED SCREEN 5 PHYSICIAN PHYSICIAN QUANTITAT S LA S LA SWAPNIL PHENYTOIN TOTAL DRUG 29403 [facility] SCREEN 5 [facility] QUANTITAT INC INC SWAPNIL PHENYTOIN TOTAL COMPREHEN 41916 [facility] SIVE 5 [facility] [place] [address] [facility] INFUSION 5 [facility] THERAPY/P INC INC ROPHYLAXI S /DX 1ST TO 1 HR BLOOD 46653 [facility] COUNT 5 [facility] COMPLETE INC INC AUTO&AUTO DIFRNTL WBC NONEMERG A0120 FEDERATED FEDERATED TRNSPRT: 5 MINI-BUS TRANSPORT TRANSPORT MTN ATION SER [facility]/OT SYS CONTINUOU E0601 ZULEYMA BERNARDORELL S 5 [...] EQUIPME EQUIPME ARWAY PRESSURE DEVICE IIV4 VACC 50941 [facility] VIRUS 0.5 HLTH DEPT ML DOS BALTAZAR FOR IM USE CUL BACT 80678 COMBINED COMBINED XCPT 5 PHYSICIAN PHYSICIAN URINE S LA S LA BLOOD/STO OL AEROBIC ISOL NONEMERG A0120 FEDERATED FEDERATED TRNSPRT: 5 MINI-BUS TRANSPORT TRANSPORT MTN ATION SER [facility]/OTH SYS NONEMERG A0120 FEDERATED FEDERATED TRNSPRT: 5 MINI-BUS TRANSPORT TRANSPORT MTN ATION SER [facility]/OT SYS NERVE 88192 [facility] JAVIER CONDUCTIO 5 N N STUDIES NEUROLOGY 9-10 STUDIES NEEDLE 16131 [facility] EMG EA 5 N EXTREMTY NEUROLOGY W/PARASPI NL AREA COMPLETE NONEMERG A0120 FEDERATED FEDERATED TRNSPRT: 5 MINI-BUS TRANSPORT TRANSPORT MTN ATION SER [facility]/OTH SYS NONEMERG A0120 FEDERATED FEDERATED TRNSPRT: 5 MINI-BUS TRANSPORT TRANSPORT MTN ATION SER [facility]/OTH SYS GROUND A0425 [facility] MILEAGE 5 AMBULANCE AMBULANCE PER SERVICE SERVICE STATUTE MILE RADIOLOGI 14304 [place] DONNELL C EXAM 5 MEDICAL FIDEL CHEST 2 IMAGING VIEWS ASS FRONTAL&L ATERAL AMBULANCE A0429 [facility] SERVICE 5 AMBULANCE AMBULANCE BLS SERVICE SERVICE EMERGENCY TRANSPORT NONEMERG A0120 FEDERATED FEDERATED TRNSPRT: 5 MINI-BUS TRANSPORT TRANSPORT MTN ATION SER [facility]/OTH SYS NONEMERG A0120 FEDERATED FEDERATED TRNSPRT: 5 MINI-BUS TRANSPORT TRANSPORT MTN ATION SER [facility]/OT SYS NONEMERG A0120 FEDERATED FEDERATED TRNSPRT: 5 MINI-BUS TRANSPORT TRANSPORT MTN ATION SER [facility]/OTH SYS MRI 39596 [facility] TRA SPINAL 5 [place] CANAL ORTHOPAED LUMBAR [facility] W/O CONTRAST MATERIAL DEBRIDEME 98445 IKER DONG NT NAIL 5 JAM JAM ANY METHOD 1-5 TRIMMING 92549 IKER HANSENS NONDYSTRO 5 JAM JAM PHIC NAILS ANY NUMBER PARING/CU 23971 IKER DONG TTING 5 JAM JAM BENIGN HYPERKERA TOTIC LESION >4 RADEX 83843 [facility]EN[facility]AL MCQUEEN TRA SPINE 5 [place] LUMBOSACR ORTHOPAED AL 2/3 [facility] VIEWS NONEMERG A0120 FEDERATED FEDERATED TRNSPRT: 5 MINI-BUS TRANSPORT TRANSPORT MTN ATION SER [facility]/OTH SYS NONEMERG A0120 FEDERATED FEDERATED TRNSPRT: 5 MINI-BUS TRANSPORT TRANSPORT MTN ATION SER [facility]/OTH SYS SBSQ 93109 R[facility] DAMIAN NURSING 5 [facility] FACILITY CARE/DAY E/M STABLE 10 MIN SBSQ 84770 ARNBRAIN ADRIENBRAIN NURSING 5 [facility] FACILITY CARE/DAY E/M STABLE 10 MIN INITIAL 75677 ARNBRAIN RICKIE NURSING 5 [facility] FACILITY CARE/DAY 25 MINUTES DAY CARE S[address] ADULT; ADULT ADULT PER 15 DAY CARE DAY CARE MINUTES DAY CARE S5100 THE THE SERVICES [address] [place] [address] ADULT; ADULT ADULT PER 15 DAY CARE DAY CARE MINUTES DAY CARE S5100 THE THE SERVICES [address] [place] [address] ADULT; ADULT ADULT PER 15 DAY CARE DAY CARE MINUTES DAY CARE S5100 THE THE SERVICES [address] [place] [address] ADULT; ADULT ADULT PER 15 DAY CARE DAY CARE MINUTES DAY CARE S5100 THE THE SERVICES [address] [place] [address] ADULT; ADULT ADULT PER 15 DAY CARE DAY CARE MINUTES DAY CARE S5100 THE THE SERVICES [address] [place] [address] ADULT; ADULT ADULT PER 15 DAY CARE DAY CARE MINUTES DAY CARE S5100 THE THE SERVICES [address] [place] [address] ADULT; ADULT ADULT PER 15 DAY CARE DAY CARE MINUTES DAY CARE S5100 THE THE SERVICES [address] [place] [address] ADULT; ADULT ADULT PER 15 DAY CARE DAY CARE MINUTES DAY CARE S[address] ADULT; ADULT ADULT PER 15 DAY CARE DAY CARE MINUTES DAY CARE S5100 [address] ADULT; ADULT ADULT PER 15 DAY CARE DAY CARE MINUTES DAY CARE S5[address] ADULT; ADULT ADULT PER 15 DAY CARE DAY CARE MINUTES DAY CARE S[address] ADULT; ADULT ADULT PER 15 DAY CARE DAY CARE MINUTES DAY CARE S[address] ADULT; ADULT ADULT PER 15 DAY CARE DAY CARE MINUTES DAY CARE S5100 THE THE SERVICES [address] [place] [address] ADULT; ADULT ADULT PER 15 DAY CARE DAY CARE MINUTES DAY CARE S[address] ADULT; ADULT ADULT PER 15 DAY CARE DAY CARE MINUTES DAY CARE S5100 THE THE SERVICES [address] [place] [address] ADULT; ADULT ADULT PER 15 DAY CARE DAY CARE MINUTES DAY CARE S5100 THE THE SERVICES [address] [place] [address] ADULT; ADULT ADULT PER 15 DAY CARE DAY CARE MINUTES DAY CARE S5100 THE THE SERVICES [address] [place] [address] ADULT; ADULT ADULT PER 15 DAY CARE DAY CARE MINUTES DAY CARE S5100 THE THE SERVICES [address] [place] [address] ADULT; ADULT ADULT PER 15 DAY CARE DAY CARE MINUTES DAY CARE S5100 THE THE SERVICES [address] [place] [address] ADULT; ADULT ADULT PER 15 DAY CARE DAY CARE MINUTES DAY CARE S5100 THE THE SERVICES [address] [place] [address] ADULT; ADULT ADULT PER 15 DAY CARE DAY CARE MINUTES DAY CARE S5100 THE THE SERVICES [address] [place] [address] ADULT; ADULT ADULT PER 15 DAY CARE DAY CARE MINUTES DAY CARE S5100 THE THE SERVICES [address] [place] [address] ADULT; ADULT ADULT PER 15 DAY CARE DAY CARE MINUTES DAY CARE S5100 THE THE SERVICES [address] [place] [address] ADULT; ADULT ADULT PER 15 DAY CARE DAY CARE MINUTES DAY CARE S5100 THE THE SERVICES [address] [place] [address] ADULT; ADULT ADULT PER 15 DAY CARE DAY CARE MINUTES DAY CARE S5100 THE THE SERVICES [address] [place] [address] ADULT; ADULT ADULT PER 15 DAY CARE DAY CARE MINUTES DAY CARE S[address] ADULT; ADULT ADULT PER 15 DAY CARE DAY CARE MINUTES DAY CARE S[address] ADULT; ADULT ADULT PER 15 DAY CARE DAY CARE MINUTES DAY CARE S[address] ADULT; ADULT ADULT PER 15 DAY CARE DAY CARE MINUTES DAY CARE S[address] ADULT; ADULT ADULT PER 15 DAY CARE DAY CARE MINUTES DAY CARE S5100 THE THE SERVICES [address] [place] [address] ADULT; ADULT ADULT PER 15 DAY CARE DAY CARE MINUTES DAY CARE S5100 THE THE SERVICES [address] [place] [address] ADULT; ADULT ADULT PER 15 DAY CARE DAY CARE MINUTES DAY CARE S5100 THE THE SERVICES [address] [place] [address] ADULT; ADULT ADULT PER 15 DAY CARE DAY CARE MINUTES DAY CARE S[address] ADULT; ADULT ADULT PER 15 DAY CARE DAY CARE MINUTES DAY CARE S[address] ADULT; ADULT ADULT PER 15 DAY CARE DAY CARE MINUTES DAY CARE S[address] ADULT; ADULT ADULT PER 15 DAY CARE DAY CARE MINUTES DAY CARE S[address] ADULT; ADULT ADULT PER 15 DAY CARE DAY CARE MINUTES DAY CARE S5[address] ADULT; ADULT ADULT PER 15 DAY CARE DAY CARE MINUTES NONEMERGE A0100 [facility] NCY 5 INC TRANSPORT TRANSPORT REGION 9 ATION CO ATION; L TAXI DAY CARE S5100 THE [address] ADULT; ADULT ADULT PER 15 DAY CARE DAY CARE MINUTES DAY CARE S5[address] ADULT; ADULT ADULT PER 15 DAY CARE DAY CARE MINUTES DAY CARE S[address] ADULT; ADULT ADULT PER 15 DAY CARE DAY CARE MINUTES DAY CARE S[address] ADULT; ADULT ADULT PER 15 DAY CARE DAY CARE MINUTES DAY CARE S[address] ADULT; ADULT ADULT PER 15 DAY CARE DAY CARE MINUTES DAY CARE S[address] ADULT; ADULT ADULT PER 15 DAY CARE DAY CARE MINUTES DAY CARE S[address] ADULT; ADULT ADULT PER 15 DAY CARE DAY CARE MINUTES DAY CARE S[address] ADULT; ADULT ADULT PER 15 DAY CARE DAY CARE MINUTES DAY CARE S[address] ADULT; ADULT ADULT PER 15 DAY CARE DAY CARE MINUTES DAY CARE S[address] ADULT; ADULT ADULT PER 15 DAY CARE DAY CARE MINUTES DAY CARE S[address] ADULT; ADULT ADULT PER 15 DAY CARE DAY CARE MINUTES DAY CARE S[address] ADULT; ADULT ADULT PER 15 DAY CARE DAY CARE MINUTES DAY CARE S[address] ADULT; ADULT ADULT PER 15 DAY CARE DAY CARE MINUTES DAY CARE S[address] ADULT; ADULT ADULT PER 15 DAY CARE DAY CARE MINUTES DAY CARE S5[address] ADULT; ADULT ADULT PER 15 DAY CARE DAY CARE MINUTES POLYSOM [address] 6/>YRS 5 CANDACE CANDACE SLEEP 4/> MED [facility]DL QUALITY CONTROL LAB TECH ST QUALITY CONTR[facility] LAB TECH ST ALVARO ATTND DAY CARE S5[address] ADULT; ADULT ADULT PER 15 DAY CARE DAY CARE MINUTES DAY CARE S[address] ADULT; ADULT ADULT PER 15 DAY CARE DAY CARE MINUTES DAY CARE S[address] ADULT; ADULT ADULT PER 15 DAY CARE DAY CARE MINUTES DAY CARE S[address] ADULT; ADULT ADULT PER 15 DAY CARE DAY CARE MINUTES NONEMERGE A0100 [facility] SHANNAN SAUC[facility]O NCY 5 INC TRANSPORT TRANSPORT REGION 9 ATION CO ATION; L TAXI DAY CARE S5[address] ADULT; ADULT ADULT PER 15 DAY CARE DAY CARE MINUTES DAY CARE S[address] ADULT; ADULT ADULT PER 15 DAY CARE DAY CARE MINUTES DAY CARE S[address] ADULT; ADULT ADULT PER 15 DAY CARE DAY CARE MINUTES DAY CARE S[address] ADULT; ADULT ADULT PER 15 DAY CARE DAY CARE MINUTES DAY CARE S[address] ADULT; ADULT ADULT PER 15 DAY CARE DAY CARE MINUTES DAY CARE S[address] ADULT; ADULT ADULT PER 15 DAY CARE DAY CARE MINUTES DAY CARE S[address] ADULT; ADULT ADULT PER 15 DAY CARE DAY CARE MINUTES DAY CARE S[address] ADULT; ADULT ADULT PER 15 DAY CARE DAY CARE MINUTES ECG 09692 EXPRESS EXPRESS ROUTINE 5 MOBILE MOBILE ECG DIAGNOSTI DIAGNOSTI W/LEAST C SE C SE 12 LDS TRCG ONLY W/O I&R DAY CARE S5100 [address] ADULT; ADULT ADULT PER 15 DAY CARE DAY CARE MINUTES DAY CARE S5[address] ADULT; ADULT ADULT PER 15 DAY CARE DAY CARE MINUTES NONEMERGE A0100 [facility] [employer] NCY 5 INC TRANSPORT TRANSPORT REGION 9 ATION CO ATION; L TAXI DAY CARE S5[address] THE [address] ADULT; ADULT ADULT PER 15 DAY CARE DAY CARE MINUTES DAY CARE S[address] ADULT; ADULT ADULT PER 15 DAY CARE DAY CARE MINUTES DAY CARE S[address] ADULT; ADULT ADULT PER 15 DAY CARE DAY CARE MINUTES DAY CARE S[address] ADULT; ADULT ADULT PER 15 DAY CARE DAY CARE MINUTES DAY CARE S[address] ADULT; ADULT ADULT PER 15 DAY CARE DAY CARE MINUTES DAY CARE S[address] ADULT; ADULT ADULT PER 15 DAY CARE DAY CARE MINUTES DAY CARE S[address] ADULT; ADULT ADULT PER 15 DAY CARE DAY CARE MINUTES DAY CARE S[address] ADULT; ADULT ADULT PER 15 DAY CARE DAY CARE MINUTES DAY CARE S[address] ADULT; ADULT ADULT PER 15 DAY CARE DAY CARE MINUTES NONEMERGE A0100 [facility] 5 INC TRANSPORT TRANSPORT REGION 9 ATION CO ATION; L TAXI GENERAL 48421 LAB [facility] HEALTH 5 YFN YFN PANEL HOLDINGS HOLDINGS LIPID 06484 LAB [facility] PANEL 5 [facility] HOLD[facility] DAY CARE S[address] ADULT; ADULT ADULT PER 15 DAY CARE DAY CARE MINUTES HEMOGLOBI 75485 LAB [facility] OT[facility] N 5 [facility] GLYCOS[employer]LA [place] [address] LAB [facility] LAB [facility] THYROXINE 5 YFN YFN TOTAL HOLDINGS HOLDINGS DAY CARE S[address] ADULT; ADULT ADULT PER 15 DAY CARE DAY CARE MINUTES DAY CARE S[address] ADULT; ADULT ADULT PER 15 DAY CARE DAY CARE MINUTES DAY CARE S[address] ADULT; ADULT ADULT PER 15 DAY CARE DAY CARE MINUTES NONEMERGE A0100 [facility] ELVIRAWorkProductsS RIY 5 INC TRANSPORT TRANSPORT REGION 9 ATION CO ATION; L TAXI DAY CARE S[address] ADULT; ADULT ADULT PER 15 DAY CARE DAY CARE MINUTES DAY CARE S[address] ADULT; ADULT ADULT PER 15 DAY CARE DAY CARE MINUTES DAY CARE S[address] ADULT; ADULT ADULT PER 15 DAY CARE DAY CARE MINUTES DAY CARE S[address] ADULT; ADULT ADULT PER 15 DAY CARE DAY CARE MINUTES DAY CARE S[address] ADULT; ADULT ADULT PER 15 DAY CARE DAY CARE MINUTES DAY CARE S[address] ADULT; ADULT ADULT PER 15 DAY CARE DAY CARE MINUTES DAY CARE S[address] ADULT; ADULT ADULT PER 15 DAY CARE DAY CARE MINUTES DAY CARE S[address] ADULT; ADULT ADULT PER 15 DAY CARE DAY CARE MINUTES DAY CARE S[address] ADULT; ADULT ADULT PER 15 DAY CARE DAY CARE MINUTES DAY CARE S[address] ADULT; ADULT ADULT PER 15 DAY CARE DAY CARE MINUTES DAY CARE S[address] ADULT; ADULT ADULT PER 15 DAY CARE DAY CARE MINUTES DAY CARE S[address] ADULT; ADULT ADULT PER 15 DAY CARE DAY CARE MINUTES NONEMERGE A0100 [facility] NCY 5 INC TRANSPORT TRANSPORT REGION 9 ATION CO ATION; L TAXI DAY CARE S5[address] ADULT; ADULT ADULT PER 15 DAY CARE DAY CARE MINUTES DAY CARE S5100 THE THE SERVICES [address] [place] [address] ADULT; ADULT ADULT PER 15 DAY CARE DAY CARE MINUTES DAY CARE S[address] ADULT; ADULT ADULT PER 15 DAY CARE DAY CARE MINUTES DAY CARE S5100 THE THE SERVICES [address] [place] [address] ADULT; ADULT ADULT PER 15 DAY CARE DAY CARE MINUTES DAY CARE S5100 THE THE SERVICES [address] [place] [address] ADULT; ADULT ADULT PER 15 DAY CARE DAY CARE MINUTES DAY CARE S5100 THE THE SERVICES [address] [place] [address] ADULT; ADULT ADULT PER 15 DAY CARE DAY CARE MINUTES DAY CARE S[address] ADULT; ADULT ADULT PER 15 DAY CARE DAY CARE MINUTES DAY CARE S[address] ADULT; ADULT ADULT PER 15 DAY CARE DAY CARE MINUTES DAY CARE S[address] ADULT; ADULT ADULT PER 15 DAY CARE DAY CARE MINUTES DAY CARE S[address] ADULT; ADULT ADULT PER 15 DAY CARE DAY CARE MINUTES DAY CARE S[address] ADULT; ADULT ADULT PER 15 DAY CARE DAY CARE MINUTES DAY CARE S[address] ADULT; ADULT ADULT PER 15 DAY CARE DAY CARE MINUTES DAY CARE S[address] ADULT; ADULT ADULT PER 15 DAY CARE DAY CARE MINUTES DAY CARE S[address] ADULT; ADULT ADULT PER 15 DAY CARE DAY CARE MINUTES DAY CARE S[address] ADULT; ADULT ADULT PER 15 DAY CARE DAY CARE MINUTES DAY CARE S5[address] ADULT; ADULT ADULT PER 15 DAY CARE DAY CARE MINUTES DAY CARE S5[address] ADULT; ADULT ADULT PER 15 DAY CARE DAY CARE MINUTES DAY CARE S[address] ADULT; ADULT ADULT PER 15 DAY CARE DAY CARE MINUTES DAY CARE S[address] ADULT; ADULT ADULT PER 15 DAY CARE DAY CARE MINUTES DAY CARE S[address] ADULT; ADULT ADULT PER 15 DAY CARE DAY CARE MINUTES DAY CARE S5[address] ADULT; ADULT ADULT PER 15 DAY CARE DAY CARE MINUTES DAY CARE S5[address] ADULT; ADULT ADULT PER 15 DAY CARE DAY CARE MINUTES DAY CARE S5[address] ADULT; ADULT ADULT PER 15 DAY CARE DAY CARE MINUTES DAY CARE S5[address] ADULT; ADULT ADULT PER 15 DAY CARE DAY CARE MINUTES DAY CARE S5100 [facility] [address] ADULT; ADULT ADULT PER 15 DAY CARE DAY CARE MINUTES OVA&HAVEN [id number] LAB OTIS LAB OTIS ITES 4 [facility] DIRECT [facility] HOLD[place] SMEARS CONCENTRA TION & ID SMR PRIM [id number] LAB [facility] LAB OTIS SRC CPLX 4 [facility] SPEC [facility] HOLD[facility] STAIN OVA&HAVEN ITS DAY CARE S5[address] [facility] [address] ADULT; ADULT ADULT PER 15 DAY CARE DAY CARE MINUTES DAY CARE S5100 [facility] [address] ADULT; ADULT ADULT PER 15 DAY CARE DAY CARE MINUTES DAY CARE S5100 [facility] [address] ADULT; ADULT ADULT PER 15 DAY CARE DAY CARE MINUTES DAY CARE S5100 [facility] [address] ADULT; ADULT ADULT PER 15 DAY CARE DAY CARE MINUTES DAY CARE S5100 [facility] [address] ADULT; ADULT ADULT PER 15 DAY CARE DAY CARE MINUTES DAY CARE S5100 [facility] [address] ADULT; ADULT ADULT PER 15 DAY CARE DAY CARE MINUTES DAY CARE S5100 [facility] [address] ADULT; ADULT ADULT PER 15 DAY CARE DAY CARE MINUTES DAY CARE S5[address] [facility] [address] ADULT; ADULT ADULT PER 15 DAY CARE DAY CARE MINUTES DAY CARE S5[address] [facility] [address] ADULT; ADULT ADULT PER 15 DAY CARE DAY CARE MINUTES DAY CARE S5100 THE THE SERVICES [address] [place] [address] ADULT; ADULT ADULT PER 15 DAY CARE DAY CARE MINUTES DAY CARE S5100 THE THE [facility] [address] [place] [address] ADULT; ADULT ADULT PER 15 DAY CARE DAY CARE MINUTES DAY CARE S5100 THE THE [facility] [address] [place] [address] ADULT; ADULT ADULT PER 15 DAY CARE DAY CARE MINUTES NONEMERGE A0100 [facility] 4 INC TRANSPORT TRANSPORT REGION 9 ATION CO ATION; L TAXI DAY CARE S5100 THE THE SERVICES [address] [place] [address] ADULT; ADULT ADULT PER 15 DAY CARE DAY CARE MINUTES DAY CARE S5100 THE THE [facility] [address] [place] [address] ADULT; ADULT ADULT PER 15 DAY CARE DAY CARE MINUTES DAY CARE S5100 THE THE [facility] [address] [place] [address] ADULT; ADULT ADULT PER 15 DAY CARE DAY CARE MINUTES DAY CARE S5[address] [facility] [address] ADULT; ADULT ADULT PER 15 DAY CARE DAY CARE MINUTES DAY CARE S5[address] [facility] [address] ADULT; ADULT ADULT PER 15 DAY CARE DAY CARE MINUTES DAY CARE S5100 THE THE SERVICES [address] [place] [address] ADULT; ADULT ADULT PER 15 DAY CARE DAY CARE MINUTES DAY CARE S5[address] ADULT; ADULT ADULT PER 15 DAY CARE DAY CARE MINUTES DAY CARE S[address] ADULT; ADULT ADULT PER 15 DAY CARE DAY CARE MINUTES DAY CARE S5100 [facility] [address] [place] [address] ADULT; ADULT ADULT PER 15 DAY CARE DAY CARE MINUTES DAY CARE S5100 THE [facility] [address] [place] [address] ADULT; ADULT ADULT PER 15 DAY CARE DAY CARE MINUTES DAY CARE S5100 THE [facility] [address] [place] [address] ADULT; ADULT ADULT PER 15 DAY CARE DAY CARE MINUTES DAY CARE S5100 THE [address] ADULT; ADULT ADULT PER 15 DAY CARE DAY CARE MINUTES DAY CARE S5100 THE THE SERVICES [address] [place] [address] ADULT; ADULT ADULT PER 15 DAY CARE DAY CARE MINUTES DAY CARE S5100 THE [address] ADULT; ADULT ADULT PER 15 DAY CARE DAY CARE MINUTES DAY CARE S5100 THE [facility] [address] ADULT; ADULT ADULT PER 15 DAY CARE DAY CARE MINUTES DAY CARE S5100 THE [address] ADULT; ADULT ADULT PER 15 DAY CARE DAY CARE MINUTES DAY CARE S5100 THE [address] ADULT; ADULT ADULT PER 15 DAY CARE DAY CARE MINUTES DAY CARE S5100 THE [facility] [address] ADULT; ADULT ADULT PER 15 DAY CARE DAY CARE MINUTES ECG [address] ST GLYNN NIV ROUTINE 4 CANDACE ECG W/LEAST PHYSICIAN 12 LDS S EKG I&R ONLY RADEX 55542 RADIOLOGY VISHAL SPINE 4 HARISH LUMBOSACR ASSOCIATE AL 2/[address] [place] [address] RADIOLOGY VISHAL CERVICAL 4 HARISH SPINE W/O ASSOCIATE CONTRAST S OF NOTH MATERIAL RADEX 23370 RADIOLOGY ADELIA SPINE 4 ARSENIO THORACIC ASSOCIATE [address] [place] [address] RADIOLOGY VISHAL HEAD/BRAI 4 HARISH N W/O ASSOCIATE CONTRAST S OF NOTH MATERIAL DAY CARE S5[address] THE [address] ADULT; ADULT ADULT PER 15 DAY CARE DAY CARE MINUTES DAY CARE S5100 THE [facility] [address] ADULT; ADULT ADULT PER 15 DAY CARE DAY CARE MINUTES DAY CARE S5100 [address] ADULT; ADULT ADULT PER 15 DAY CARE DAY CARE MINUTES DAY CARE S5[address] ADULT; ADULT ADULT PER 15 DAY CARE DAY CARE MINUTES DAY CARE S5100 [address] ADULT; ADULT ADULT PER 15 DAY CARE DAY CARE MINUTES DAY CARE S5100 THE [address] ADULT; ADULT ADULT PER 15 DAY CARE DAY CARE MINUTES DAY CARE S5[address] ADULT; ADULT ADULT PER 15 DAY CARE DAY CARE MINUTES DAY CARE S5100 THE [facility] [address] ADULT; ADULT ADULT PER 15 DAY CARE DAY CARE MINUTES DAY CARE S5100 [address] ADULT; ADULT ADULT PER 15 DAY CARE DAY CARE MINUTES DAY CARE S5100 THE THE SERVICES [address] [place] [address] ADULT; ADULT ADULT PER 15 DAY CARE DAY CARE MINUTES DAY CARE S5100 THE [facility] [address] [place] [address] ADULT; ADULT ADULT PER 15 DAY CARE DAY CARE MINUTES DAY CARE S5100 THE [facility] [address] [place] [address] ADULT; ADULT ADULT PER 15 DAY CARE DAY CARE MINUTES DAY CARE S5100 THE [facility] [address] [place] [address] ADULT; ADULT ADULT PER 15 DAY CARE DAY CARE MINUTES DAY CARE S5100 THE [facility] SERVICES [address] [place] [address] ADULT; ADULT ADULT PER 15 DAY CARE DAY CARE MINUTES DAY CARE S5100 THE [facility] SERVICES [address] [place] [address] ADULT; ADULT ADULT PER 15 DAY CARE DAY CARE MINUTES DAY CARE S5100 THE [facility] [address] [place] [address] ADULT; ADULT ADULT PER 15 DAY CARE DAY CARE MINUTES DAY CARE S5100 [address] ADULT; ADULT ADULT PER 15 DAY CARE DAY CARE MINUTES DAY CARE S5100 THE [address] ADULT; ADULT ADULT PER 15 DAY CARE DAY CARE MINUTES DAY CARE S5100 [address] ADULT; ADULT ADULT PER 15 DAY CARE DAY CARE MINUTES DAY CARE S5100 THE [address] ADULT; ADULT ADULT PER 15 DAY CARE DAY CARE MINUTES DAY CARE S5100 [address] ADULT; ADULT ADULT PER 15 DAY CARE DAY CARE MINUTES DAY CARE S5[address] ADULT; ADULT ADULT PER 15 DAY CARE DAY CARE MINUTES DAY CARE S5[address] ADULT; ADULT ADULT PER 15 DAY CARE DAY CARE MINUTES DAY CARE S5100 THE [address] ADULT; ADULT ADULT PER 15 DAY CARE DAY CARE MINUTES DAY CARE S5[address] ADULT; ADULT ADULT PER 15 DAY CARE DAY CARE MINUTES DAY CARE S5[address] ADULT; ADULT ADULT PER 15 DAY CARE DAY CARE MINUTES DAY CARE S5[address] ADULT; ADULT ADULT PER 15 DAY CARE DAY CARE MINUTES DAY CARE S5100 THE [address] ADULT; ADULT ADULT PER 15 DAY CARE DAY CARE MINUTES DAY CARE S5100 [address] ADULT; ADULT ADULT PER 15 DAY CARE DAY CARE MINUTES DAY CARE S5[address] ADULT; ADULT ADULT PER 15 DAY CARE DAY CARE MINUTES DAY CARE S5100 THE [address] ADULT; ADULT ADULT PER 15 DAY CARE DAY CARE MINUTES DAY CARE S5100 THE [address] ADULT; ADULT ADULT PER 15 DAY CARE DAY CARE MINUTES DAY CARE S5100 THE [address] ADULT; ADULT ADULT PER 15 DAY CARE DAY CARE MINUTES DAY CARE S5100 THE [address] ADULT; ADULT ADULT PER 15 DAY CARE DAY CARE MINUTES DAY CARE S5100 [address] ADULT; ADULT ADULT PER 15 DAY CARE DAY CARE MINUTES HEMOGLOBI 91650 [facility] N 4 [facility] HOLDINGS JERI A1C LIPID 71062 [facility] PANEL 4 [facility] HOLDINGS GENERAL 74272 [facility] 4 [facility] PANEL HOLDINGS HOLDINGS DAY CARE S5[address] ADULT; ADULT ADULT PER 15 DAY CARE DAY CARE MINUTES DAY CARE S5100 THE [facility] [address] ADULT; ADULT ADULT PER 15 DAY CARE DAY CARE MINUTES DAY CARE S5100 [address] ADULT; ADULT ADULT PER 15 DAY CARE DAY CARE MINUTES NONEMERGE A0100 [facility] SHANNAN SAUCEDO NCY 4 INC TRANSPORT TRANSPORT REGION 9 ATION CO ATION; L TAXI DAY CARE S5100 THE THE [address] ADULT; ADULT ADULT PER 15 DAY CARE DAY CARE MINUTES DAY CARE S5100 THE [facility] [address] ADULT; ADULT ADULT PER 15 DAY CARE DAY CARE MINUTES DAY CARE S5100 THE [address] ADULT; ADULT ADULT PER 15 DAY CARE DAY CARE MINUTES DAY CARE S5100 THE [address] ADULT; ADULT ADULT PER 15 DAY CARE DAY CARE MINUTES DAY CARE S5100 THE [address] ADULT; ADULT ADULT PER 15 DAY CARE DAY CARE MINUTES NONEMERGE A0100 [facility] CAC [facility] NCY 4 INC TRANSPORT TRANSPORT REGION 9 ATION CO ATION; L TAXI REPAIR 76829 [facility] INTERMEDI 4 PLASTIC ATE SURGERY F/E/E/N/L GROUP , &/MUC 2.5 CM/< EXC B9 08066 [facility] LES MRGN 4 PLASTIC XCP SK TG SURGERY GROUP , F/E/E/N/L /M 1.1-2.0CM DAY CARE S5100 THE [facility] [address] ADULT; ADULT ADULT PER 15 DAY CARE DAY CARE MINUTES DAY CARE S5100 THE [facility] [address] ADULT; ADULT ADULT PER 15 DAY CARE DAY CARE MINUTES DAY CARE S5100 THE [facility] [address] ADULT; ADULT ADULT PER 15 DAY CARE DAY CARE MINUTES DAY CARE S5100 THE [facility] [address] ADULT; ADULT ADULT PER 15 DAY CARE DAY CARE MINUTES DAY CARE S5100 THE [address] ADULT; ADULT ADULT PER 15 DAY CARE DAY CARE MINUTES SIMPLE 52343 EMERGENCY [facility] REPAIR 4 CARE LOREN SCALP/NEC PHYS K/AX/TEJINDER [facility]THERN T/TRUNK 2.5CM/< DAY CARE S5100 THE [facility] [address] ADULT; ADULT ADULT PER 15 DAY CARE DAY CARE MINUTES DAY CARE S5100 THE [facility] [address] ADULT; ADULT ADULT PER 15 DAY CARE DAY CARE MINUTES DAY CARE S5100 THE [facility] [address] ADULT; ADULT ADULT PER 15 DAY CARE DAY CARE MINUTES DAY CARE S5100 THE [address] ADULT; ADULT ADULT PER 15 DAY CARE DAY CARE MINUTES DAY CARE S5100 THE [address] ADULT; ADULT ADULT PER 15 DAY CARE DAY CARE MINUTES DAY CARE S5100 THE [address] ADULT; ADULT ADULT PER 15 DAY CARE DAY CARE MINUTES DIAB ONLY A5500 [facility] FIT CSTM 4 MEDICAL MEDICAL PREP&SPL SUPPLY [employer] DNSITY INSRT FOR DIAB A5512 EL[place] EL[place] ONLY MX 4 MEDICAL MEDICAL DNSITY SUPPLY SUPPLY INSRT [employer] FORMD PRFAB EA DAY CARE S5100 THE [facility] [address] ADULT; ADULT ADULT PER 15 DAY CARE DAY CARE MINUTES DAY CARE S5100 THE [facility] [address] ADULT; ADULT ADULT PER 15 DAY CARE DAY CARE MINUTES DAY CARE S5100 THE [facility] [address] ADULT; ADULT ADULT PER 15 DAY CARE DAY CARE MINUTES DAY CARE S5100 THE [facility] [address] ADULT; ADULT ADULT PER 15 DAY CARE DAY CARE MINUTES DAY CARE S5100 THE [address] ADULT; ADULT ADULT PER 15 DAY CARE DAY CARE MINUTES BLOOD 5[address] COUNT 4 CANDACE CANDACE COMPLETE FT FT AUTO&AUTO CRUZ [facility] DIFRNTL WBC GLUC BLD [address] GLUC MNTR 4 CANDACEIVÁN MARIA DEV FT FT CLEARED CRUZ [facility] FDA SPEC HOME USE ECG [address] ST TIKA ROUTINE 4 CANDACE GAR ECG W/LEAST PHYSICIAN 12 LDS S EKG I&R ONLY GROUND A0425 VICTORIA VICTORIA MILEAGE 4 CO CO PER AMBULANCE AMBULANCE STATUTE TAXIN TAXIN MILE AMB A0427 VICTORIA VICTORIA SERVICE 4 CO CO ALS AMBULANCE AMBULANCE EMERGENCY TAXIN TAXIN TRANSPORT LEVEL [address] N VENOUS 4 CANDACE CANDACE BLOOD FT FT VENIPUNCT CRUZ [facility] URE ECG [address] ROUTINE 4 CANDACE CANDACE ECG FT FT W/LEAST CRUZ AR[facility] 12 LDS TRCG ONLY W/O I&R THER [address] PROPH/DX 4 CANDACE CANDACE NJX IV FT FT PUSH CRUZ [facility] SINGLE/1S T SBST/DRUG BASIC [address] METABOLIC 4 CANDACE MARIA PANEL FT FT CALCIUM CRUZ CRUZ TOTAL DAY CARE S5100 [address] ADULT; ADULT ADULT PER 15 DAY CARE DAY CARE MINUTES DAY CARE S5100 THE [address] ADULT; ADULT ADULT PER 15 DAY CARE DAY CARE MINUTES DAY CARE S5100 THE [address] ADULT; ADULT ADULT PER 15 DAY CARE DAY CARE MINUTES DAY CARE S5100 THE [address] ADULT; ADULT ADULT PER 15 DAY CARE DAY CARE MINUTES DAY CARE S5100 THE [address] ADULT; ADULT ADULT PER 15 DAY CARE DAY CARE MINUTES DAY CARE S5100 THE [address] ADULT; ADULT ADULT PER 15 DAY CARE DAY CARE MINUTES NONEMERGE A0100 [facility] [employer] NCY 4 INC TRANSPORT TRANSPORT REGION 9 ATION CO ATION; L TAXI DAY CARE S5100 THE THE [address] ADULT; ADULT ADULT PER 15 DAY CARE DAY CARE MINUTES DAY CARE S5100 THE [address] ADULT; ADULT ADULT PER 15 DAY CARE DAY CARE MINUTES DAY CARE S5100 THE [address] ADULT; ADULT ADULT PER 15 DAY CARE DAY CARE MINUTES DAY CARE S5100 THE [address] ADULT; ADULT ADULT PER 15 DAY CARE DAY CARE MINUTES DAY CARE S5100 THE [address] ADULT; ADULT ADULT PER 15 DAY CARE DAY CARE MINUTES NONEMERGE A0100 [facility] CAC [facility] NCY 4 INC TRANSPORT TRANSPORT REGION 9 ATION CO ATION; L TAXI RADEX 12907 [facility] SPINE 4 MEGHNA LUMBOSACR ASSOCIATE AL 2/3 S OF [facility] DAY CARE S5100 THE [facility] [address] ADULT; ADULT ADULT PER 15 DAY CARE DAY CARE MINUTES DAY CARE S5100 THE [address] ADULT; ADULT ADULT PER 15 DAY CARE DAY CARE MINUTES DAY CARE S5100 THE [address] ADULT; ADULT ADULT PER 15 DAY CARE DAY CARE MINUTES DAY CARE S5100 THE THE SERVICES [address] [place] [address] ADULT; ADULT ADULT PER 15 DAY CARE DAY CARE MINUTES DAY CARE S5100 THE [facility] SERVICES [address] [place] [address] ADULT; ADULT ADULT PER 15 DAY CARE DAY CARE MINUTES DAY CARE S5100 [address] ADULT; ADULT ADULT PER 15 DAY CARE DAY CARE MINUTES NONEMERGE A0100 [facility] NCY 4 INC TRANSPORT TRANSPORT REGION 9 ATION CO ATION; L TAXI DAY CARE S5100 THE THE SERVICES [address] [place] [address] ADULT; ADULT ADULT PER 15 DAY CARE DAY CARE MINUTES DAY CARE S5100 THE THE SERVICES [address] [place] [address] ADULT; ADULT ADULT PER 15 DAY CARE DAY CARE MINUTES DAY CARE S5100 THE [address] ADULT; ADULT ADULT PER 15 DAY CARE DAY CARE MINUTES DAY CARE S5[address] ADULT; ADULT ADULT PER 15 DAY CARE DAY CARE MINUTES DAY CARE S5100 THE THE SERVICES [address] [place] [address] ADULT; ADULT ADULT PER 15 DAY CARE DAY CARE MINUTES DAY CARE S5100 [address] ADULT; ADULT ADULT PER 15 DAY CARE DAY CARE MINUTES DAY CARE S5[address] ADULT; ADULT ADULT PER 15 DAY CARE DAY CARE MINUTES DAY CARE S5[address] ADULT; ADULT ADULT PER 15 DAY CARE DAY CARE MINUTES DAY CARE S5[address] ADULT; ADULT ADULT PER 15 DAY CARE DAY CARE MINUTES DAY CARE S5100 THE THE SERVICES [address] [place] [address] ADULT; ADULT ADULT PER 15 DAY CARE DAY CARE MINUTES DAY CARE S5100 [address] ADULT; ADULT ADULT PER 15 DAY CARE DAY CARE MINUTES DAY CARE S5[address] ADULT; ADULT ADULT PER 15 DAY CARE DAY CARE MINUTES DAY CARE S5[address] ADULT; ADULT ADULT PER 15 DAY CARE DAY CARE MINUTES DAY CARE S5100 THE THE SERVICES [address] [place] [address] ADULT; ADULT ADULT PER 15 DAY CARE DAY CARE MINUTES DAY CARE S5100 THE THE SERVICES [address] [place] [address] ADULT; ADULT ADULT PER 15 DAY CARE DAY CARE MINUTES DAY CARE S5100 THE THE SERVICES [address] [place] [address] ADULT; ADULT ADULT PER 15 DAY CARE DAY CARE MINUTES DAY CARE S5100 THE THE SERVICES [address] [place] [address] ADULT; ADULT ADULT PER 15 DAY CARE DAY CARE MINUTES DAY CARE S5100 THE THE SERVICES [address] [place] [address] ADULT; ADULT ADULT PER 15 DAY CARE DAY CARE MINUTES DAY CARE S5100 THE THE SERVICES [address] [place] [address] ADULT; ADULT ADULT PER 15 DAY CARE DAY CARE MINUTES DAY CARE S5100 THE THE SERVICES [address] [place] [address] ADULT; ADULT ADULT PER 15 DAY CARE DAY CARE MINUTES DAY CARE S5100 THE THE SERVICES [address] [place] [address] ADULT; ADULT ADULT PER 15 DAY CARE DAY CARE MINUTES DAY CARE S5100 THE THE SERVICES [address] [place] [address] ADULT; ADULT ADULT PER 15 DAY CARE DAY CARE MINUTES DAY CARE S5100 THE THE SERVICES [address] [place] [address] ADULT; ADULT ADULT PER 15 DAY CARE DAY CARE MINUTES DAY CARE S5100 [address] ADULT; ADULT ADULT PER 15 DAY CARE DAY CARE MINUTES DAY CARE S5[address] ADULT; ADULT ADULT PER 15 DAY CARE DAY CARE MINUTES DAY CARE S5[address] ADULT; ADULT ADULT PER 15 DAY CARE DAY CARE MINUTES DAY CARE S5[address] ADULT; ADULT ADULT PER 15 DAY CARE DAY CARE MINUTES DAY CARE S5100 THE THE SERVICES [address] [place] [address] ADULT; ADULT ADULT PER 15 DAY CARE DAY CARE MINUTES DAY CARE S5100 THE THE SERVICES [address] [place] [address] ADULT; ADULT ADULT PER 15 DAY CARE DAY CARE MINUTES DAY CARE S5100 THE THE SERVICES [address] [place] [address] ADULT; ADULT ADULT PER 15 DAY CARE DAY CARE MINUTES DAY CARE S5100 THE THE SERVICES [address] [place] [address] ADULT; ADULT ADULT PER 15 DAY CARE DAY CARE MINUTES DAY CARE S5100 THE THE SERVICES [address] [place] [address] ADULT; ADULT ADULT PER 15 DAY CARE DAY CARE MINUTES DAY CARE S5100 THE THE SERVICES [address] [place] [address] ADULT; ADULT ADULT PER 15 DAY CARE DAY CARE MINUTES DAY CARE S5100 THE THE SERVICES [address] [place] [address] ADULT; ADULT ADULT PER 15 DAY CARE DAY CARE MINUTES DAY CARE S5100 THE THE SERVICES [address] [place] [address] ADULT; ADULT ADULT PER 15 DAY CARE DAY CARE MINUTES DAY CARE S5100 THE THE SERVICES [address] [place] [address] ADULT; ADULT ADULT PER 15 DAY CARE DAY CARE MINUTES DAY CARE S5100 THE THE SERVICES [address] [place] [address] ADULT; ADULT ADULT PER 15 DAY CARE DAY CARE MINUTES DAY CARE S5100 THE THE SERVICES [address] [place] [address] ADULT; ADULT ADULT PER 15 DAY CARE DAY CARE MINUTES DAY CARE S5100 THE THE SERVICES [address] [place] [address] ADULT; ADULT ADULT PER 15 DAY CARE DAY CARE MINUTES DAY CARE S5100 THE THE SERVICES [address] [place] [address] ADULT; ADULT ADULT PER 15 DAY CARE DAY CARE MINUTES DAY CARE S5100 THE THE SERVICES [address] [place] [address] ADULT; ADULT ADULT PER 15 DAY CARE DAY CARE MINUTES DAY CARE S5100 THE THE SERVICES [address] [place] [address] ADULT; ADULT ADULT PER 15 DAY CARE DAY CARE MINUTES DAY CARE S5[address] ADULT; ADULT ADULT PER 15 DAY CARE DAY CARE MINUTES DAY CARE S5[address] ADULT; ADULT ADULT PER 15 DAY CARE DAY CARE MINUTES DAY CARE S5[address] ADULT; ADULT ADULT PER 15 DAY CARE DAY CARE MINUTES DAY CARE S5100 THE THE SERVICES [address] [place] [address] ADULT; ADULT ADULT PER 15 DAY CARE DAY CARE MINUTES DAY CARE S5100 THE THE SERVICES [address] [place] [address] ADULT; ADULT ADULT PER 15 DAY CARE DAY CARE MINUTES DAY CARE S5100 THE THE SERVICES [address] [place] [address] ADULT; ADULT ADULT PER 15 DAY CARE DAY CARE MINUTES DAY CARE S5100 THE THE SERVICES [address] [place] [address] ADULT; ADULT ADULT PER 15 DAY CARE DAY CARE MINUTES DAY CARE S5[address] ADULT; ADULT ADULT PER 15 DAY CARE DAY CARE MINUTES DAY CARE S5[address] ADULT; ADULT ADULT PER 15 DAY CARE DAY CARE MINUTES DAY CARE S5[address] ADULT; ADULT ADULT PER 15 DAY CARE DAY CARE MINUTES DAY CARE S5[address] ADULT; ADULT ADULT PER 15 DAY CARE DAY CARE MINUTES DAY CARE S5[address] ADULT; ADULT ADULT PER 15 DAY CARE DAY CARE MINUTES DAY CARE S5[address] ADULT; ADULT ADULT PER 15 DAY CARE DAY CARE MINUTES DIAGNOSTI G0204 RADIOLOGY SAMUEL C 4 GAR MAMMOGRAP ASSOCIATE HY INCL S OF [facility] CAD WHEN PERF; BILAT NONEMERGE A0100 [facility] NCY 4 INC [facility]; L TAXI MAMMOGRAP 67343 [facility] HY 4 CANDACE MARIA BILATERAL FT FT [facility] COMPUTER- 54897 RADIOLOGY SAMUEL AIDED 4 GAR DETECTION ASSOCIATE DX S OF [facility] MAMMOGRAP DAY CARE S[address] ADULT; ADULT ADULT PER 15 DAY CARE DAY CARE MINUTES DAY CARE S5[address] ADULT; ADULT ADULT PER 15 DAY CARE DAY CARE MINUTES DAY CARE S5[address] ADULT; ADULT ADULT PER 15 DAY CARE DAY CARE MINUTES DAY CARE S5[address] ADULT; ADULT ADULT PER 15 DAY CARE DAY CARE MINUTES DAY CARE S5[address] ADULT; ADULT ADULT PER 15 DAY CARE DAY CARE MINUTES DAY CARE S5[address] ADULT; ADULT ADULT PER 15 DAY CARE DAY CARE MINUTES NONEMERGE A0100 [facility] NCY 4 INC TRANSPORT TRANSPORT REGION 9 ATION CO ATION; L TAXI NONEMERGE A0100 [facility] CAC [facility] NCY 4 INC TRANSPORT TRANSPORT REGION 9 ATION CO ATION; L TAXI DAY CARE S5[address] ADULT; ADULT ADULT PER 15 DAY CARE DAY CARE MINUTES DAY CARE S5100 [address] ADULT; ADULT ADULT PER 15 DAY CARE DAY CARE MINUTES DAY CARE S5[address] ADULT; ADULT ADULT PER 15 DAY CARE DAY CARE MINUTES DAY CARE S5[address] ADULT; ADULT ADULT PER 15 DAY CARE DAY CARE MINUTES DAY CARE S5[address] ADULT; ADULT ADULT PER 15 DAY CARE DAY CARE MINUTES DAY CARE S5[address] ADULT; ADULT ADULT PER 15 DAY CARE DAY CARE MINUTES SKIN TEST 74219 [facility] 4 CANDACE CORONA TUBERCULO SIS PHYSICIAN INTRADERM S AL DAY CARE S5100 [address] ADULT; ADULT ADULT PER 15 DAY CARE DAY CARE MINUTES DAY CARE S5[address] ADULT; ADULT ADULT PER 15 DAY CARE DAY CARE MINUTES DAY CARE S5[address] ADULT; ADULT ADULT PER 15 DAY CARE DAY CARE MINUTES DAY CARE S5[address] ADULT; ADULT ADULT PER 15 DAY CARE DAY CARE MINUTES DETERMINA 13487 REHANA RODRIGUEZ TION 4 NOLVIA, REFRACTIV OD, PSC E STATE OPHTH 08013 REHANA RODRIGUEZ MEDICAL 4 NOLVIA, XM&EVAL OD, PSC COMPRE NEW PT 1/> VST DAY CARE S5100 [address] ADULT; ADULT ADULT PER 15 DAY CARE DAY CARE MINUTES DAY CARE S5[address] ADULT; ADULT ADULT PER 15 DAY CARE DAY CARE MINUTES DAY CARE S5[address] ADULT; ADULT ADULT PER 15 DAY CARE DAY CARE MINUTES DAY CARE S5[address] ADULT; ADULT ADULT PER 15 DAY CARE DAY CARE MINUTES DAY CARE S5[address] ADULT; ADULT ADULT PER 15 DAY CARE DAY CARE MINUTES DAY CARE S5[address] ADULT; ADULT ADULT PER 15 DAY CARE DAY CARE MINUTES DAY CARE S5[address] ADULT; ADULT ADULT PER 15 DAY CARE DAY CARE MINUTES DAY CARE S5[address] ADULT; ADULT ADULT PER 15 DAY CARE DAY CARE MINUTES DAY CARE S5100 THE THE SERVICES [address] [place] [address] ADULT; ADULT ADULT PER 15 DAY CARE DAY CARE MINUTES DAY CARE S5[address] ADULT; ADULT ADULT PER 15 DAY CARE DAY CARE MINUTES DAY CARE S5[address] ADULT; ADULT ADULT PER 15 DAY CARE DAY CARE MINUTES DAY CARE S5[address] ADULT; ADULT ADULT PER 15 DAY CARE DAY CARE MINUTES DAY CARE S5[address] ADULT; ADULT ADULT PER 15 DAY CARE DAY CARE MINUTES DAY CARE S5[address] ADULT; ADULT ADULT PER 15 DAY CARE DAY CARE MINUTES DAY CARE S5[address] ADULT; ADULT ADULT PER 15 DAY CARE DAY CARE MINUTES DAY CARE S5[address] ADULT; ADULT ADULT PER 15 DAY CARE DAY CARE MINUTES DAY CARE S5[address] ADULT; ADULT ADULT PER 15 DAY CARE DAY CARE MINUTES [address] HYDROXY 4 CANDACE CANDACE INCLUDES MED CTR MED CTR FRACTIONS QUALITY CONTROL LAB TECH ST QUALITY CONTROL LAB TECH ST IF PERFORMED DAY CARE S5100 THE [facility] [address] ADULT; ADULT ADULT PER 15 DAY CARE DAY CARE MINUTES DAY CARE S5100 [address] ADULT; ADULT ADULT PER 15 DAY CARE DAY CARE MINUTES ECG [address] [facility] T[facility]A ROUTINE 4 CANDACE GAR ECG W/LEAST PHYSICIAN 12 LDS S EKG I&R ONLY CV STRS 62092 ST [facility] M[facility] TST 4 CANDACE XERS&/OR RX CONT PHYSICIAN ECG W/O S I&R MYOCARDIA 74352 [facility] L SPECT 4 CANDACE MULTIPLE STUDIES PHYSICIAN S CV STRS 61539 [facility] TST 4 CANDACE XERS&/OR RX CONT PHYSICIAN ECG I&R S ONLY ECG [address] [facility] TIKA ROUTINE 4 CANDACE GAR ECG W/LEAST PHYSICIAN 12 LDS S EKG I&R ONLY ECG [address] [facility] TIKA ROUTINE 4 CANDACE GAR ECG W/LEAST PHYSICIAN 12 LDS S EKG I&R ONLY RADIOLOGI 40492 RADIOLOGY HAMZAH C EXAM 4 TUS CHEST 2 ASSOCIATE VIEWS S OF NOT FRONTAL&L ATERAL AMB A0427 VICTORIA VICTORIA SERVICE 4 CO CO ALS AMBULANCE AMBULANCE EMERGENCY TAXIN TAXIN TRANSPORT LEVEL 1 GROUND A0425 VICTORIA VICTORIA MILEAGE 4 CO CO PER AMBULANCE AMBULANCE STATUTE TAXIN TAXIN MILE MRI BRAIN [address] BRAIN 4 CANDACE MARIA STEM W/O FT FT W/CONTRAS CRUZ [place] MATERIAL ECHO [address] [facility] R-T 4 CANDACE MARIA 2D FT FT W/WOM-MOD CRUZ [place] COMPL SPEC&COLR D DAY CARE S[address] ADULT; ADULT ADULT PER 15 DAY CARE DAY CARE MINUTES DAY CARE S[address] ADULT; ADULT ADULT PER 15 DAY CARE DAY CARE MINUTES DAY CARE S[address] ADULT; ADULT ADULT PER 15 DAY CARE DAY CARE MINUTES DAY CARE S[address] ADULT; ADULT ADULT PER 15 DAY CARE DAY CARE MINUTES DAY CARE S[address] ADULT; ADULT ADULT PER 15 DAY CARE DAY CARE MINUTES DAY CARE S[address] ADULT; ADULT ADULT PER 15 DAY CARE DAY CARE MINUTES DAY CARE S5100 THE [address] ADULT; ADULT ADULT PER 15 DAY CARE DAY CARE MINUTES DAY CARE S5100 THE [address] ADULT; ADULT ADULT PER 15 DAY CARE DAY CARE MINUTES DAY CARE S5100 THE [address] ADULT; ADULT ADULT PER 15 DAY CARE DAY CARE MINUTES DAY CARE S5100 THE [address] ADULT; ADULT ADULT PER 15 DAY CARE DAY CARE MINUTES DAY CARE S5100 THE [address] ADULT; ADULT ADULT PER 15 DAY CARE DAY CARE MINUTES DAY CARE S5100 THE THE SERVICES [address] [place] [address] ADULT; ADULT ADULT PER 15 DAY CARE DAY CARE MINUTES DAY CARE S5100 THE THE [address] ADULT; ADULT ADULT PER 15 DAY CARE DAY CARE MINUTES DAY CARE S5100 THE [address] ADULT; ADULT ADULT PER 15 DAY CARE DAY CARE MINUTES DAY CARE S5100 THE [address] ADULT; ADULT ADULT PER 15 DAY CARE DAY CARE MINUTES DAY CARE S5100 THE THE [address] ADULT; ADULT ADULT PER 15 DAY CARE DAY CARE MINUTES DAY CARE S5100 THE [address] ADULT; ADULT ADULT PER 15 DAY CARE DAY CARE MINUTES DAY CARE S5100 THE THE [address] ADULT; ADULT ADULT PER 15 DAY CARE DAY CARE MINUTES RADEX [id number] ARBEN GARDINER FINGR 4 [facility] MAT MINIMUM 2 ORTHOPAE VIEWS NONEMERGE A0100 [facility] NCY 4 INC TRANSPORT TRANSPORT REGION 9 ATION CO ATION; L TAXI DAY CARE S5100 THE THE [address] ADULT; ADULT ADULT PER 15 DAY CARE DAY CARE MINUTES DAY CARE S5100 THE THE [address] ADULT; ADULT ADULT PER 15 DAY CARE DAY CARE MINUTES DAY CARE S5100 THE THE [address] ADULT; ADULT ADULT PER 15 DAY CARE DAY CARE MINUTES DAY CARE S5100 THE THE [address] ADULT; ADULT ADULT PER 15 DAY CARE DAY CARE MINUTES DAY CARE S5100 THE THE SERVICES 4 [facility] ADULT; ADULT ADULT PER 15 DAY CARE DAY CARE MINUTES DAY CARE S5100 THE THE SERVICES 4 [facility] ADULT; ADULT ADULT PER 15 DAY CARE DAY CARE MINUTES DAY CARE S5100 THE THE SERVICES 3 [facility] ADULT; ADULT ADULT PER 15 DAY CARE DAY CARE MINUTES RADEX 07885 RADIOLOGY ROEBKER SPINE 3 JAM LUMBOSACR ASSOCIATE AL 2/3 S OF [facility] GROUND A0425 VICTORIA VICTORIA MILEAGE 3 CO CO PER AMBULANCE AMBULANCE STATUTE TAXIN TAXIN MILE AMBULANCE A0429 [facility] VICTORIA SERVICE 3 CO CO BLS AMBULANCE AMBULANCE EMERGENCY TAXIN TAXIN TRANSPORT DAY CARE S5100 [address] ADULT; ADULT ADULT PER 15 DAY CARE DAY CARE MINUTES DAY CARE S5100 THE THE SERVICES [address] [place] [address] ADULT; ADULT ADULT PER 15 DAY CARE DAY CARE MINUTES DAY CARE S5100 THE THE SERVICES [address] [place] [address] ADULT; ADULT ADULT PER 15 DAY CARE DAY CARE MINUTES DAY CARE S5100 THE THE SERVICES [address] [place] [address] ADULT; ADULT ADULT PER 15 DAY CARE DAY CARE MINUTES DAY CARE S5100 [address] ADULT; ADULT ADULT PER 15 DAY CARE DAY CARE MINUTES DAY CARE S5100 [address] ADULT; ADULT ADULT PER 15 DAY CARE DAY CARE MINUTES DAY CARE S5100 THE THE SERVICES [address] [place] [address] ADULT; ADULT ADULT PER 15 DAY CARE DAY CARE MINUTES DAY CARE S5100 THE THE SERVICES [address] [place] [address] ADULT; ADULT ADULT PER 15 DAY CARE DAY CARE MINUTES DAY CARE S5100 THE THE SERVICES [address] [place] [address] ADULT; ADULT ADULT PER 15 DAY CARE DAY CARE MINUTES DAY CARE S5100 THE THE SERVICES [address] [place] [address] ADULT; ADULT ADULT PER 15 DAY CARE DAY CARE MINUTES DAY CARE S5100 THE THE SERVICES [address] [place] [address] ADULT; ADULT ADULT PER 15 DAY CARE DAY CARE MINUTES DAY CARE S5100 THE [address] ADULT; ADULT ADULT PER 15 DAY CARE DAY CARE MINUTES DAY CARE S5100 THE [address] ADULT; ADULT ADULT PER 15 DAY CARE DAY CARE MINUTES DAY CARE S5100 THE [address] ADULT; ADULT ADULT PER 15 DAY CARE DAY CARE MINUTES DAY CARE S5[address] THE [address] ADULT; ADULT ADULT PER 15 DAY CARE DAY CARE MINUTES DAY CARE S5[address] ADULT; ADULT ADULT PER 15 DAY CARE DAY CARE MINUTES RADEX 50708 ARBEN GARDINER FINGR 3 LTH ER MAT MINIMUM 2 ORTHOPAE VIEWS DAY CARE S5100 THE [address] ADULT; ADULT ADULT PER 15 DAY CARE DAY CARE MINUTES DAY CARE S5[address] ADULT; ADULT ADULT PER 15 DAY CARE DAY CARE MINUTES DAY CARE S5[address] THE [address] ADULT; ADULT ADULT PER 15 DAY CARE DAY CARE MINUTES DAY CARE S5[address] ADULT; ADULT ADULT PER 15 DAY CARE DAY CARE MINUTES DAY CARE S5[address] ADULT; ADULT ADULT PER 15 [place] [address] [facility] 3 [facility] CRU[facility] COLLECTIO [address] [facility] 3 [facility] CRUZ CRUZ URE DAY CARE S5[address] THE [address] ADULT; ADULT ADULT PER 15 DAY CARE DAY CARE MINUTES DAY CARE S5[address] THE [address] ADULT; ADULT ADULT PER 15 DAY CARE DAY CARE MINUTES DAY CARE S5[address] ADULT; ADULT ADULT PER 15 DAY CARE DAY CARE MINUTES DAY CARE S5[address] ADULT; ADULT ADULT PER 15 DAY CARE DAY CARE MINUTES ANES 17425 INDEPENDE MASROOR ARTHRS/EN 3 NT ALA DSCPY ANESTHESI DSTL OLOGIST RADIUS ULNA/WRIS T/HAND PRQ SKEL 13223 ARBEN GARDINER FIXJ DSTL 3 LTH ER MAT PHLNGL ORTHOPAE FX FNGR/THMB EA DAY CARE S5[address] ADULT; ADULT ADULT PER 15 DAY CARE DAY CARE MINUTES DAY CARE S5[address] ADULT; ADULT ADULT PER 15 DAY CARE DAY CARE MINUTES HEMOGLOBI [address] N 3 CANDACE MARIA GLYCOSYLA JERI A1C PHYSICIAN PHYSICIAN S S INFLUENZA [address]1082 ST AN VACC 3 CANDACE TILLMAN CHLOE IIV3 SPLIT PHYSICIAN VIRUS S PRSRV FREE ID NONEMERGE A0100 LKLP [facility] NCY 3 INC TRANSPORT TRANSPORT REGION 9 ATION CO ATION; L TAXI DAY CARE S5100 THE [address] ADULT; ADULT ADULT PER 15 DAY CARE DAY CARE MINUTES DAY CARE S5100 THE [address] ADULT; ADULT ADULT PER 15 DAY CARE DAY CARE MINUTES NONEMERGE A0100 LKLP CAC [facility]EN[facility]TS NCY 3 INC TRANSPORT TRANSPORT REGION 9 ATION CO ATION; L TAXI RADEX 92459 ARBEN GARDINER FINGR 3 LTH ER MAT MINIMUM 2 ORTHOPAE VIEWS DAY CARE S5100 [address] ADULT; ADULT ADULT PER 15 DAY CARE DAY CARE MINUTES DAY CARE S5100 THE [address] ADULT; ADULT ADULT PER 15 DAY CARE DAY CARE MINUTES DAY CARE S5[address] ADULT; ADULT ADULT PER 15 DAY CARE DAY CARE MINUTES DAY CARE S5[address] ADULT; ADULT ADULT PER 15 DAY CARE DAY CARE MINUTES DAY CARE S5[address] ADULT; ADULT ADULT PER 15 DAY CARE DAY CARE MINUTES DAY CARE S5[address] ADULT; ADULT ADULT PER 15 DAY CARE DAY CARE MINUTES DAY CARE S5[address] ADULT; ADULT ADULT PER 15 DAY CARE DAY CARE MINUTES DAY CARE S5100 THE THE SERVICES [address] [place] [address] ADULT; ADULT ADULT PER 15 DAY CARE DAY CARE MINUTES ECG [address] [facility] ROUTINE 3 CANDACE PEG ECG W/LEAST PHYSICIAN 12 LDS S EKG I&R ONLY GROUND A0425 VICTORIA VICTORIA MILEAGE 3 CO CO PER AMBULANCE AMBULANCE STATUTE TAXIN TAXIN MILE AMB A0427 VICTORIA VICTORIA SERVICE 3 CO CO ALS AMBULANCE AMBULANCE EMERGENCY TAXIN TAXIN TRANSPORT LEVEL 1 RADIOLOGI 70656 RADIOLOGY VISHAL C EXAM 3 HARISH CHEST 2 ASSOCIATE VIEWS S OF NOTH FRONTAL&[place] [address] RADIOLOGY VISHAL HEAD/BRAI 3 HARISH N W/O ASSOCIATE CONTRAST S OF NOTH MATERIAL DAY CARE S5100 THE THE SERVICES [address] [place] [address] ADULT; ADULT ADULT PER 15 DAY CARE DAY CARE MINUTES DAY CARE S5100 THE THE SERVICES [address] [place] [address] ADULT; ADULT ADULT PER 15 DAY CARE DAY CARE MINUTES DAY CARE S5[address] ADULT; ADULT ADULT PER 15 DAY CARE DAY CARE MINUTES DAY CARE S5[address] ADULT; ADULT ADULT PER 15 DAY CARE DAY CARE MINUTES DAY CARE S5[address] ADULT; ADULT ADULT PER 15 DAY CARE DAY CARE MINUTES DAY CARE S5[address] ADULT; ADULT ADULT PER 15 DAY CARE DAY CARE MINUTES DAY CARE S5[address] ADULT; ADULT ADULT PER [address] [place] [address] RADIOLOGY HAMZAH HEAD/BRAI 3 TUS N W/O ASSOCIATE CONTRAST S OF NOTH MATERIAL AMB A0427 VICTORIA VICTORIA SERVICE 3 CO CO ALS AMBULANCE AMBULANCE EMERGENCY TAXIN TAXIN TRANSPORT LEVEL 1 GROUND A0425 VICTORIA VICTORIA MILEAGE 3 CO CO PER AMBULANCE AMBULANCE STATUTE TAXIN TAXIN MILE ECG 03654 [facility] ROUTINE 3 CANDACE ECG W/LEAST PHYSICIAN 12 LDS S EKG I&R ONLY DAY CARE S5100 THE THE SERVICES [address] [place] [address] ADULT; ADULT ADULT PER 15 DAY CARE DAY CARE MINUTES DAY CARE S5100 THE THE SERVICES [address] [place] [address] ADULT; ADULT ADULT PER 15 DAY CARE DAY CARE MINUTES DAY CARE S5100 THE THE SERVICES [address] [place] [address] ADULT; ADULT ADULT PER 15 DAY CARE DAY CARE MINUTES DAY CARE S5[address] ADULT; ADULT ADULT PER 15 DAY CARE DAY CARE MINUTES DAY CARE S5100 THE THE SERVICES [address] [place] [address] ADULT; ADULT ADULT PER 15 DAY CARE DAY CARE MINUTES CLTX DSTL 80115 COMM[facility] GRUNKEMEY PHLNGL 3 LTH ER MAT FX ORTHOPAE FNGR/THMB W/O MANJ EA NONEMERGE A0100 LKLP CAC [facility] NCY 3 INC TRANSPORT TRANSPORT REGION 9 ATION CO ATION; L TAXI DAY CARE S5[address] ADULT; ADULT ADULT PER 15 DAY CARE DAY CARE MINUTES DAY CARE S5100 THE THE SERVICES [address] [place] [address] ADULT; ADULT ADULT PER 15 DAY CARE DAY CARE MINUTES DAY CARE S5[address] ADULT; ADULT ADULT PER 15 DAY CARE DAY CARE MINUTES DAY CARE S5[address] ADULT; ADULT ADULT PER 15 DAY CARE DAY CARE MINUTES DAY CARE S5[address] ADULT; ADULT ADULT PER 15 DAY CARE DAY CARE MINUTES DAY CARE S5[address] ADULT; ADULT ADULT PER 15 DAY CARE DAY CARE MINUTES DAY CARE S5[address] ADULT; ADULT ADULT PER 15 DAY CARE DAY CARE MINUTES AMBULANCE A0429 [facility] MARSHALLESE SERVICE 3 AMBULETTE AMBULETTE BLS AND AND EMERGENCY AMBUL AMBUL TRANSPORT GROUND A0425 MARSHALLESE MARSHALLESE MILEAGE 3 AMBULETTE AMBULETTE PER AND AND STATUTE AMBUL AMBUL MILE RADEX 07363 RADIOLOGY KERMAN HAND 3 LYUBOV MINIMUM 3 ASSOCIATE VIEWS S OF [facility] DAY CARE S5100 THE THE SERVICES 3 [facility] ADULT; ADULT ADULT PER 15 DAY CARE DAY CARE MINUTES DAY CARE S5100 THE THE SERVICES 3 [facility] ADULT; ADULT ADULT PER 15 DAY CARE DAY CARE MINUTES DAY CARE S5100 THE THE SERVICES 3 [facility] ADULT; ADULT ADULT PER 15 DAY CARE DAY CARE MINUTES DAY CARE S5100 THE THE SERVICES 3 [facility] ADULT; ADULT ADULT PER 15 DAY CARE DAY CARE MINUTES DAY CARE S5100 THE THE SERVICES 3 [facility] ADULT; ADULT ADULT PER 15 DAY CARE DAY CARE MINUTES DAY CARE S5100 THE THE SERVICES 3 [facility] ADULT; ADULT ADULT PER 15 DAY CARE DAY CARE MINUTES DAY CARE S5100 THE THE SERVICES 3 [facility] ADULT; ADULT ADULT PER 15 DAY CARE DAY CARE MINUTES DAY CARE S5100 THE THE SERVICES [address] [place] [address] ADULT; ADULT ADULT PER 15 DAY CARE DAY CARE MINUTES DAY CARE S5100 THE THE SERVICES [address] [place] [address] ADULT; ADULT ADULT PER 15 DAY CARE DAY CARE MINUTES DAY CARE S5100 THE THE SERVICES [address] [place] [address] ADULT; ADULT ADULT PER 15 DAY CARE DAY CARE MINUTES DAY CARE S5100 THE THE SERVICES [address] [place] [address] ADULT; ADULT ADULT PER 15 DAY CARE DAY CARE MINUTES DAY CARE S5[address] ADULT; ADULT ADULT PER 15 DAY CARE DAY CARE MINUTES DAY CARE S5[address] ADULT; ADULT ADULT PER 15 DAY CARE DAY CARE MINUTES DAY CARE S5[address] ADULT; ADULT ADULT PER 15 DAY CARE DAY CARE MINUTES DAY CARE S5100 THE THE SERVICES [address] [place] [address] ADULT; ADULT ADULT PER 15 DAY CARE DAY CARE MINUTES DAY CARE S5100 THE THE SERVICES 3 [facility] ADULT; ADULT ADULT PER 15 DAY CARE DAY CARE MINUTES DAY CARE S5100 THE THE SERVICES 3 [facility] ADULT; ADULT ADULT PER 15 DAY CARE DAY CARE MINUTES DAY CARE S5100 THE THE SERVICES 3 [facility] ADULT; ADULT ADULT PER 15 DAY CARE DAY CARE MINUTES DAY CARE S5100 THE THE [facility] 3 [facility] ADULT; ADULT ADULT PER 15 DAY CARE DAY CARE MINUTES GROUND A0425 VICTORIA VICTORIA MILEAGE 3 CO CO PER AMBULANCE AMBULANCE STATUTE TAXIN TAXIN MILE AMB A0427 VICTORIA VICTORIA SERVICE 3 CO CO ALS AMBULANCE AMBULANCE EMERGENCY TAXIN TAXIN TRANSPORT LEVEL 1 ECG 93478 LEONEL LOGAN [place] ROUTINE 3 EMERGENCY ECG SERVICES W/LEAST 12 LDS I&R ONLY DAY CARE S5[address] ADULT; ADULT ADULT PER 15 DAY CARE DAY CARE MINUTES DAY CARE S5[address] ADULT; ADULT ADULT PER 15 DAY CARE DAY CARE MINUTES DAY CARE S5[address] ADULT; ADULT ADULT PER 15 DAY CARE DAY CARE MINUTES DAY CARE S[address] ADULT; ADULT ADULT PER 15 DAY CARE DAY CARE MINUTES DAY CARE S5[address] ADULT; ADULT ADULT PER 15 DAY CARE DAY CARE MINUTES DAY CARE S5[address] ADULT; ADULT ADULT PER 15 DAY CARE DAY CARE MINUTES DAY CARE S5[address] ADULT; ADULT ADULT PER 15 DAY CARE DAY CARE MINUTES GROUND A0425 VICTORIA VICTORIA MILEAGE 3 CO CO PER AMBULANCE AMBULANCE STATUTE TAXIN TAXIN MILE AMBULANCE A0429 VICTORIA VICTORIA SERVICE 3 CO CO BLS AMBULANCE AMBULANCE EMERGENCY TAXIN TAXIN TRANSPORT DAY CARE S[address] ADULT; ADULT ADULT PER 15 DAY CARE DAY CARE MINUTES DAY CARE S5[address] ADULT; ADULT ADULT PER 15 DAY CARE DAY CARE MINUTES DAY CARE S5[address] ADULT; ADULT ADULT PER 15 DAY CARE DAY CARE MINUTES DAY CARE S5[address] ADULT; ADULT ADULT PER 15 DAY CARE DAY CARE MINUTES DAY CARE S5[address] ADULT; ADULT ADULT PER 15 DAY CARE DAY CARE MINUTES DAY CARE S5100 THE THE SERVICES 3 [facility] ADULT; ADULT ADULT PER 15 DAY CARE DAY CARE MINUTES DAY CARE S5100 THE THE SERVICES 3 [facility] ADULT; ADULT ADULT PER 15 DAY CARE DAY CARE MINUTES DAY CARE S5100 THE THE SERVICES 3 [facility] ADULT; ADULT ADULT PER 15 DAY CARE DAY CARE MINUTES DAY CARE S5100 THE THE SERVICES 3 [facility] ADULT; ADULT ADULT PER 15 DAY CARE DAY CARE MINUTES DAY CARE S5100 THE THE SERVICES 3 [facility] ADULT; ADULT ADULT PER 15 DAY CARE DAY CARE MINUTES GROUND A0425 VICTORIA VICTORIA MILEAGE 3 CO CO PER AMBULANCE AMBULANCE STATUTE TAXIN TAXIN MILE AMB A0427 VICTORIA VICTORIA SERVICE 3 CO CO ALS AMBULANCE AMBULANCE EMERGENCY TAXIN TAXIN TRANSPORT LEVEL 1 ECG 65674 [facility] ROUTINE 3 CANDACE PEG ECG W/LEAST PHYSICIAN 12 LDS S EKG I&R ONLY DAY CARE S5100 THE THE SERVICES [address] [place] [address] ADULT; ADULT ADULT PER 15 DAY CARE DAY CARE MINUTES DAY CARE S5[address] ADULT; ADULT ADULT PER 15 DAY CARE DAY CARE MINUTES DAY CARE S5[address] ADULT; ADULT ADULT PER 15 DAY CARE DAY CARE MINUTES DAY CARE S5[address] ADULT; ADULT ADULT PER 15 DAY CARE DAY CARE MINUTES DAY CARE S5[address] ADULT; ADULT ADULT PER 15 DAY CARE DAY CARE MINUTES DAY CARE S5100 THE THE SERVICES [address] [place] [address] ADULT; ADULT ADULT PER 15 DAY CARE DAY CARE MINUTES DAY CARE S5100 THE THE SERVICES [address] [place] [address] ADULT; ADULT ADULT PER 15 DAY CARE DAY CARE MINUTES DAY CARE S5[address] ADULT; ADULT ADULT PER 15 DAY CARE DAY CARE MINUTES DAY CARE S5100 THE THE SERVICES [address] [place] [address] ADULT; ADULT ADULT PER 15 DAY CARE DAY CARE MINUTES SBSQ 52206 [facility] 3 CANDACE CARE/DAY 25 PHYSICIAN MINUTES S INITIAL 36005 [facility] 3 CANDACE CARE/DAY 70 PHYSICIAN MINUTES S CRITICAL 79091 EMERGENCY [facility] 3 CARE ILL/INJUR PHYS ED [facility] PATIENT INIT 30-[address] [place] [address] RADIOLOGY REN HEAD/BRAI 3 III LIANA N W/O ASSOCIATE CONTRAST S OF NOTH MATERIAL ECG 66566 [facility] ROUTINE 3 CANDACE GAR ECG W/LEAST PHYSICIAN 12 LDS S EKG I&R ONLY DAY CARE S5100 THE THE SERVICES [address] [place] [address] ADULT; ADULT ADULT PER 15 DAY CARE DAY CARE MINUTES DAY CARE S[address] ADULT; ADULT ADULT PER 15 DAY CARE DAY CARE MINUTES DAY CARE S5[address] ADULT; ADULT ADULT PER 15 DAY CARE DAY CARE MINUTES DAY CARE S5100 THE THE SERVICES [address] [place] [address] ADULT; ADULT ADULT PER 15 DAY CARE DAY CARE MINUTES DAY CARE S5100 THE THE SERVICES [address] [place] [address] ADULT; ADULT ADULT PER 15 DAY CARE DAY CARE MINUTES DAY CARE S5100 THE THE SERVICES [address] [place] [address] ADULT; ADULT ADULT PER 15 DAY CARE DAY CARE MINUTES DAY CARE S[address] ADULT; ADULT ADULT PER 15 DAY CARE DAY CARE MINUTES DAY CARE S5[address] ADULT; ADULT ADULT PER 15 DAY CARE DAY CARE MINUTES DAY CARE S5100 THE THE SERVICES [address] [place] [address] ADULT; ADULT ADULT PER 15 DAY CARE DAY CARE MINUTES DAY CARE S5100 THE THE SERVICES [address] [place] [address] ADULT; ADULT ADULT PER 15 DAY CARE DAY CARE MINUTES DAY CARE S5[address] ADULT; ADULT ADULT PER 15 DAY CARE DAY CARE MINUTES DAY CARE S5[address] ADULT; ADULT ADULT PER 15 DAY CARE DAY CARE MINUTES DAY CARE S5[address] ADULT; ADULT ADULT PER 15 DAY CARE DAY CARE MINUTES NONEMERGE A0100 [facility] [place] [facility] 3 INC TRANSPORT TRANSPORT REGION 9 ATION CO ATION; L TAXI DAY CARE S5[address] ADULT; ADULT ADULT PER 15 DAY CARE DAY CARE MINUTES DAY CARE S5[address] ADULT; ADULT ADULT PER 15 DAY CARE DAY CARE MINUTES DAY CARE S5100 THE THE SERVICES [address] [place] [address] ADULT; ADULT ADULT PER 15 DAY CARE DAY CARE MINUTES DAY CARE S5100 THE THE SERVICES [address] [place] [address] ADULT; ADULT ADULT PER 15 DAY CARE DAY CARE MINUTES DAY CARE S5100 THE THE SERVICES [address] [place] [address] ADULT; ADULT ADULT PER 15 DAY CARE DAY CARE MINUTES DAY CARE S5[address] ADULT; ADULT ADULT PER 15 DAY CARE DAY CARE MINUTES DAY CARE S5[address] ADULT; ADULT ADULT PER 15 DAY CARE DAY CARE MINUTES DAY CARE S5100 THE THE SERVICES [address] [place] [address] ADULT; ADULT ADULT PER 15 DAY CARE DAY CARE MINUTES DAY CARE S5100 THE THE SERVICES [address] [place] [address] ADULT; ADULT ADULT PER 15 DAY CARE DAY CARE MINUTES DAY CARE S5[address] ADULT; ADULT ADULT PER 15 DAY CARE DAY CARE MINUTES DAY CARE S[address] ADULT; ADULT ADULT PER 15 DAY CARE DAY CARE MINUTES DAY CARE S[address] ADULT; ADULT ADULT PER 15 DAY CARE DAY CARE MINUTES DAY CARE S[address] ADULT; ADULT ADULT PER 15 DAY CARE DAY CARE MINUTES DAY CARE S5[address] ADULT; ADULT ADULT PER 15 DAY CARE DAY CARE MINUTES DAY CARE S5[address] ADULT; ADULT ADULT PER 15 DAY CARE DAY CARE MINUTES DAY CARE S5100 THE THE SERVICES [address] [place] [address] ADULT; ADULT ADULT PER 15 DAY CARE DAY CARE MINUTES DAY CARE S[address] ADULT; ADULT ADULT PER 15 DAY CARE DAY CARE MINUTES DAY CARE S[address] ADULT; ADULT ADULT PER 15 DAY CARE DAY CARE MINUTES DAY CARE S[address] ADULT; ADULT ADULT PER 15 DAY CARE DAY CARE MINUTES DAY CARE S[address] ADULT; ADULT ADULT PER [address] [place] [address] [facility] HEAD/BRAI [facility] W/[place] [address] [facility] CERVICAL 3 [facility] SPINE W/O INC INC CONTRAST MATERIAL CT LUMBAR 37656 [facility] SPINE 3 [facility] W/O INC INC CONTRAST MATERIAL GROUND A0425 VICTORAI VICTORIA MILEAGE 3 CO CO PER AMBULANCE AMBULANCE STATUTE TAXIN TAXIN MILE AMBULANCE A0429 VICTORIA VICTORIA SERVICE 3 CO CO BLS AMBULANCE AMBULANCE [place] [address] [facility] THORACIC 3 [facility] SPINE W/O INC INC CONTRAST MATERIAL 3D 31431 [facility] RENDERING 3 [facility] INC INC W/INTERP& POSTPROC DIFF WORK STATION DAY CARE S[address] ADULT; ADULT ADULT PER 15 DAY CARE DAY CARE MINUTES DAY CARE S[address] ADULT; ADULT ADULT PER 15 DAY CARE DAY CARE MINUTES DAY CARE S[address] ADULT; ADULT ADULT PER 15 DAY CARE DAY CARE MINUTES DAY CARE S[address] ADULT; ADULT ADULT PER 15 DAY CARE DAY CARE MINUTES DAY CARE S[address] ADULT; ADULT ADULT PER 15 DAY CARE DAY CARE MINUTES AMB A0427 VICTORIA VICTORIA SERVICE 3 CO CO ALS AMBULANCE AMBULANCE EMERGENCY TAXIN TAXIN TRANSPORT LEVEL 1 GROUND A0425 VICTORIA VICTORIA MILEAGE 3 CO CO PER AMBULANCE AMBULANCE STATUTE TAXIN TAXIN MILE DAY CARE S5100 THE THE SERVICES 3 [facility] ADULT; ADULT ADULT PER 15 DAY CARE DAY CARE MINUTES DAY CARE S[address] ADULT; ADULT ADULT PER 15 DAY CARE DAY CARE MINUTES COLLECTIO [address] N VENOUS 3 CANDACE MARIA BLOOD FT FT [place] [address] PROLACTIN 3 CANDACE CANDACE FT FT CRUZ [place] DAY CARE S[address] ADULT; ADULT ADULT PER 15 DAY CARE DAY CARE MINUTES DAY CARE S[address] ADULT; ADULT ADULT PER 15 DAY CARE DAY CARE MINUTES DAY CARE S[address] ADULT; ADULT ADULT PER 15 DAY CARE DAY CARE MINUTES DAY CARE S[address] ADULT; ADULT ADULT PER 15 DAY CARE DAY CARE MINUTES DAY CARE S[address] ADULT; ADULT ADULT PER 15 DAY CARE DAY CARE MINUTES DAY CARE S[address] ADULT; ADULT ADULT PER 15 DAY CARE DAY CARE MINUTES RADIOLOGI [address] EXAMINATI ASSOCIATE ON S [facility] SURGICAL SPECIMEN [place] [address] SURG 3 CANDACE MARIA PATHOLOGY FT FT CRUZ [facility] GROSS&SAMANTHA ROSCOPIC EXAM MAMMOGRAP [address] HIC GID 3 CANDACE MARIA NEEDLE FT FT PLACEMENT CRU[facility] T BREAST ANES [address] INTEG 3 CANDACE MARIA EXTREMITI FT FT ES ANT CRU[facility] TRUNK & PERINEUM NOS EXC 73426 ST [facility] BREAST 3 CANDAEC HEI LES PREOP PLMT RAD PHYSICIAN MARKER S OPEN [address] CYST/ABER 3 CANDACE MARIA RANT FT FT BREAST [facility] TISSUE OPEN 1/> LESION PREOP ST ST PLACEMENT 3 CANDACE MARIA FT FT LOCALIZAT CRU[facility] ION WIRE BREAST DAY CARE S5100 THE [facility] 3 [facility] ADULT; ADULT ADULT PER 15 DAY CARE DAY CARE MINUTES DAY CARE S[address] ADULT; ADULT ADULT PER 15 DAY CARE DAY CARE MINUTES DAY CARE S[address] ADULT; ADULT ADULT PER 15 DAY CARE DAY CARE MINUTES NONEMERGE A0100 [facility] TRANSPORT ACTION ATION CO ATION; L TAXI ECG 84708 [facility] ROUTINE 3 CANDACE CANDACE ECG FT FT W/LEAST CRU[facility] [place] 12 LDS TRCG ONLY W/O I&R ECG [address] [facility] ROUTINE 3 CANDACE PEG ECG W/LEAST PHYSICIAN 12 LDS S EKG I&R ONLY DAY CARE S[address] ADULT; ADULT ADULT PER 15 DAY CARE DAY CARE MINUTES DAY CARE S[address] ADULT; ADULT ADULT PER 15 DAY CARE DAY CARE MINUTES DAY CARE S5100 [address] ADULT; ADULT ADULT PER 15 DAY CARE DAY CARE MINUTES DAY CARE S5100 [address] ADULT; ADULT ADULT PER 15 DAY CARE DAY CARE MINUTES DAY CARE S5[address] ADULT; ADULT ADULT PER 15 DAY CARE DAY CARE MINUTES NONEMERGE A0100 [facility] 3 COMMUNITY TRANSPORT TRANSPORT ACTION ATION CO ATION; L TAXI DAY CARE S5[address] ADULT; ADULT ADULT PER 15 DAY CARE DAY CARE MINUTES DAY CARE S5100 [address] ADULT; ADULT ADULT PER 15 DAY CARE DAY CARE MINUTES DAY CARE S5100 [address] ADULT; ADULT ADULT PER 15 DAY CARE DAY CARE MINUTES DAY CARE S5[address] ADULT; ADULT ADULT PER 15 DAY CARE DAY CARE MINUTES DAY CARE S5100 [address] ADULT; ADULT ADULT PER 15 DAY CARE DAY CARE MINUTES DAY CARE S5100 [address] ADULT; ADULT ADULT PER 15 DAY CARE DAY CARE MINUTES DAY CARE S5[address] ADULT; ADULT ADULT PER 15 DAY CARE DAY CARE MINUTES DAY CARE S5100 [address] ADULT; ADULT ADULT PER 15 DAY CARE DAY CARE MINUTES DAY CARE S5100 [address] ADULT; ADULT ADULT PER 15 DAY CARE DAY CARE MINUTES DAY CARE S5100 [address] ADULT; ADULT ADULT PER 15 DAY CARE DAY CARE MINUTES DAY CARE S5[address] ADULT; ADULT ADULT PER 15 DAY CARE DAY CARE MINUTES DAY CARE S5[address] ADULT; ADULT ADULT PER 15 DAY CARE DAY CARE MINUTES COMPUTER- [id number] RADIOLOG[facility] [place] AIDED 3 JESSICA DETECTION ASSOCIATE DX S OF [facility] MAMMOGRAP HY MAMMOGRAP [id number] HY 3 CANDACE JACOBSTH BILATERAL FT FT [facility] DIAGNOSTI [id number] RADIOLOGY [place] C 3 JESSICA MAMMOGRAP ASSOCIATE HY INCL S OF [facility] CAD WHEN PERF; BILAT DAY CARE S5[address] ADULT; ADULT ADULT PER 15 DAY CARE DAY CARE MINUTES DAY CARE S[address] ADULT; ADULT ADULT PER 15 DAY CARE DAY CARE MINUTES DAY CARE S5100 THE THE [address] ADULT; ADULT ADULT PER 15 DAY CARE DAY CARE MINUTES DAY CARE S5100 THE [address] ADULT; ADULT ADULT PER 15 DAY CARE DAY CARE MINUTES DAY CARE S5[address] THE [address] ADULT; ADULT ADULT PER 15 DAY CARE DAY CARE MINUTES DAY CARE S5100 THE [address] ADULT; ADULT ADULT PER 15 DAY CARE DAY CARE MINUTES DAY CARE S5100 THE [address] ADULT; ADULT ADULT PER 15 DAY CARE DAY CARE MINUTES DAY CARE S5100 THE [address] ADULT; ADULT ADULT PER 15 DAY CARE DAY CARE MINUTES DAY CARE S5100 THE THE SERVICES 3 [facility] ADULT; ADULT ADULT PER 15 DAY CARE DAY CARE MINUTES DAY CARE S5100 THE THE SERVICES 3 [facility] ADULT; ADULT ADULT PER 15 DAY CARE DAY CARE MINUTES DAY CARE S5100 THE THE SERVICES 3 [facility] ADULT; ADULT ADULT PER 15 DAY CARE DAY CARE MINUTES DAY CARE S5100 THE THE SERVICES 3 [facility] ADULT; ADULT ADULT PER 15 DAY CARE DAY CARE MINUTES DAY CARE S5100 THE THE SERVICES 3 [facility] ADULT; ADULT ADULT PER 15 DAY CARE DAY CARE MINUTES DAY CARE S5100 THE THE SERVICES 3 [facility] ADULT; ADULT ADULT PER 15 DAY CARE DAY CARE MINUTES DAY CARE S5100 THE THE SERVICES [address] [place] [address] ADULT; ADULT ADULT PER 15 DAY CARE DAY CARE MINUTES DAY CARE S5100 THE THE SERVICES 3 [facility] ADULT; ADULT ADULT PER 15 DAY CARE DAY CARE MINUTES DAY CARE S5100 THE THE SERVICES [address] [place] [address] ADULT; ADULT ADULT PER 15 DAY CARE DAY CARE MINUTES DAY CARE S5100 THE THE SERVICES 3 [facility] ADULT; ADULT ADULT PER 15 DAY CARE DAY CARE MINUTES DAY CARE S5100 THE THE SERVICES [address] [place] [address] ADULT; ADULT ADULT PER 15 DAY CARE DAY CARE MINUTES DAY CARE S5[address] ADULT; ADULT ADULT PER 15 DAY CARE DAY CARE MINUTES DAY CARE S5100 THE THE SERVICES 3 [facility] ADULT; ADULT ADULT PER 15 DAY CARE DAY CARE MINUTES DAY CARE S5100 THE THE SERVICES 3 [facility] ADULT; ADULT ADULT PER 15 DAY CARE DAY CARE MINUTES DAY CARE S5100 THE THE SERVICES 3 [facility] ADULT; ADULT ADULT PER 15 DAY CARE DAY CARE MINUTES DAY CARE S5100 THE THE SERVICES [address] [place] [address] ADULT; ADULT ADULT PER 15 DAY CARE DAY CARE MINUTES DAY CARE S5100 THE THE SERVICES 3 [facility] ADULT; ADULT ADULT PER 15 DAY CARE DAY CARE MINUTES DAY CARE S5100 THE THE SERVICES [address] [place] [address] ADULT; ADULT ADULT PER 15 DAY CARE DAY CARE MINUTES DAY CARE S5100 THE THE SERVICES 3 [facility] ADULT; ADULT ADULT PER 15 DAY CARE DAY CARE MINUTES DAY CARE S5100 THE THE SERVICES [address] [place] [address] ADULT; ADULT ADULT PER 15 DAY CARE DAY CARE MINUTES DAY CARE S5[address] ADULT; ADULT ADULT PER 15 DAY CARE DAY CARE MINUTES DAY CARE S5[address] ADULT; ADULT ADULT PER 15 DAY CARE DAY CARE MINUTES DAY CARE S5100 THE THE SERVICES [address] [place] [address] ADULT; ADULT ADULT PER 15 DAY CARE DAY CARE MINUTES DAY CARE S5[address] ADULT; ADULT ADULT PER 15 DAY CARE DAY CARE MINUTES DAY CARE S5[address] ADULT; ADULT ADULT PER 15 DAY CARE DAY CARE MINUTES DAY CARE S5[address] ADULT; ADULT ADULT PER 15 DAY CARE DAY CARE MINUTES DAY CARE S5[address] ADULT; ADULT ADULT PER 15 DAY CARE DAY CARE MINUTES DAY CARE S5[address] THE [address] ADULT; ADULT ADULT PER 15 DAY CARE DAY CARE MINUTES DAY CARE S5[address] ADULT; ADULT ADULT PER 15 DAY CARE DAY CARE MINUTES DAY CARE S5[address] ADULT; ADULT ADULT PER 15 DAY CARE DAY CARE MINUTES DAY CARE S5[address] ADULT; ADULT ADULT PER 15 DAY CARE DAY CARE MINUTES DAY CARE S5[address] ADULT; ADULT ADULT PER 15 DAY CARE DAY CARE MINUTES DAY CARE S5[address] ADULT; ADULT ADULT PER 15 DAY CARE DAY CARE MINUTES DAY CARE S5[address] ADULT; ADULT ADULT PER 15 DAY CARE DAY CARE MINUTES SKIN TEST 64991 [facility] 3 CANDACE TUBERCULO SIS PHYSICIAN INTRADERM S AL DAY CARE S5[address] ADULT; ADULT ADULT PER 15 DAY CARE DAY CARE MINUTES DAY CARE S5100 THE THE SERVICES 3 [facility] ADULT; ADULT ADULT PER 15 DAY CARE DAY CARE MINUTES DAY CARE S5100 THE THE SERVICES 3 [facility] ADULT; ADULT ADULT PER 15 DAY CARE DAY CARE MINUTES AMB A0427 VICTORIA VICTORIA SERVICE 3 CO CO ALS AMBULANCE AMBULANCE EMERGENCY TAXIN TAXIN TRANSPORT LEVEL 1 GROUND A0425 VICTORIA VICTORIA MILEAGE 3 CO CO PER AMBULANCE AMBULANCE STATUTE TAXIN TAXIN MILE DAY CARE S5100 THE THE SERVICES 3 [facility] ADULT; ADULT ADULT PER 15 DAY CARE DAY CARE MINUTES DAY CARE S5100 THE THE SERVICES 3 [facility] ADULT; ADULT ADULT PER 15 DAY CARE DAY CARE MINUTES DAY CARE S5100 THE THE SERVICES 3 [facility] ADULT; ADULT ADULT PER 15 DAY CARE DAY CARE MINUTES DAY CARE S5100 THE THE SERVICES [address] [place] [address] ADULT; ADULT ADULT PER 15 DAY CARE DAY CARE MINUTES DAY CARE S5100 THE THE SERVICES [address] [place] [address] ADULT; ADULT ADULT PER 15 DAY CARE DAY CARE MINUTES DAY CARE S5100 THE THE SERVICES [address] [place] [address] ADULT; ADULT ADULT PER 15 DAY CARE DAY CARE MINUTES DAY CARE S5100 THE THE SERVICES [address] [place] [address] ADULT; ADULT ADULT PER 15 DAY CARE DAY CARE MINUTES DAY CARE S5100 THE THE [facility] ADULT; ADULT ADULT PER 15 DAY CARE DAY CARE MINUTES DAY CARE S5[address] ADULT; ADULT ADULT PER 15 DAY CARE DAY CARE MINUTES DAY CARE S5100 THE THE SERVICES 3 [facility] ADULT; ADULT ADULT PER 15 DAY CARE DAY CARE MINUTES DAY CARE S5100 THE THE SERVICES 3 [facility] ADULT; ADULT ADULT PER 15 DAY CARE DAY CARE MINUTES DAY CARE S5100 THE THE [facility] 3 [facility] ADULT; ADULT ADULT PER 15 DAY CARE DAY CARE MINUTES DAY CARE S5100 THE THE SERVICES 3 [facility] ADULT; ADULT ADULT PER 15 DAY CARE DAY CARE MINUTES DAY CARE S5[address] ADULT; ADULT ADULT PER 15 DAY CARE DAY CARE MINUTES DAY CARE S5[address] ADULT; ADULT ADULT PER 15 DAY CARE DAY CARE MINUTES GROUND A0425 VICTORIA VICTORIA MILEAGE 3 CO CO PER AMBULANCE AMBULANCE STATUTE TAXIN TAXIN MILE AMB A0427 VICTORIA VICTORIA SERVICE 3 CO CO ALS AMBULANCE AMBULANCE EMERGENCY TAXIN TAXIN TRANSPORT LEVEL 1 DAY CARE S5[address] ADULT; ADULT ADULT PER 15 DAY CARE DAY CARE MINUTES DAY CARE S5[address] ADULT; ADULT ADULT PER 15 DAY CARE DAY CARE MINUTES DAY CARE S5[address] ADULT; ADULT ADULT PER 15 DAY CARE DAY CARE MINUTES DAY CARE S5[address] THE [address] ADULT; ADULT ADULT PER 15 DAY CARE DAY CARE MINUTES DAY CARE S5[address] ADULT; ADULT ADULT PER 15 DAY CARE DAY CARE MINUTES DAY CARE S5[address] THE [address] ADULT; ADULT ADULT PER 15 DAY CARE DAY CARE MINUTES DAY CARE S5[address] ADULT; ADULT ADULT PER 15 DAY CARE DAY CARE MINUTES DAY CARE S[address] ADULT; ADULT ADULT PER 15 [place] [address] [facility] GUIDANCE 2 MAMMOGRAP MOL NEEDLE HY PLACEMENT SERVICES IMG S&I US BREAST 58505 [facility] REAL 2 MAMMOGRAP MOL TIME HY W/IMAGE SERVICES DOCUMENTA TION BREAST 95994 [facility] BIOPSY 2 MAMMOGRAP MOL VACUUM HY ASSISTED/ SERVICES ROTATING DEVICE IMG GID 22895 [facility] PLMT MTLC 2 MAMMOGRAP MOL LOCLZJ HY CLIP PRQ SERVICES BRST BX/ASPIR COMPUTER- 69464 [facility] AIDED 2 MAMMOGRAP MOL DETECTION [place] [address] [facility] SURG 2 [facility]P GROSS&SAMANTHA ROSCOPIC EXAM DIAGNOSTI G0204 [facility] C 2 MAMMOGRAP MOL MAMMOGRAP HY HY INCL SERVICES CAD WHEN PERF; BILAT LOCALIZE 04414 [facility] 2 ELIZABETH MICHAEL SEIZURE NEUROLOGY CABLE/RAD IO EEG/VIDEO LOCALIZE 29711 [facility] 2 ELIZABETH MICHAEL SEIZURE NEUROLOGY CABLE/RAD IO EEG/VIDEO GLUC BLD 57297 [facility] 2 Y Y DEV [facility] CLEARED FDA SPEC HOME USE AMB A0427 [...] EMERGENCY [place] [address] [place] AYOOB AND HEAD/BRAI 2 MEDICAL N W/O SERV CONTRAST FOUNDAT[place] MATERIAL RADEX 08410 [place] AYOOB AND FOOT 2 MEDICAL COMPLETE SERV MINIMUM [address] LUMBAR [address] [place] GAURAV SPINE 2 MEDICAL ANGELA W/[place] [address] [place] CERVICAL 2 MEDICAL ANGELA SPINE W/O SERV CONTRAST FOUNDATIO MATERIAL RADIOLOGI 30288 [place] AYOOB AND C 2 MEDICAL EXAMINATI SERV ON CHE[place] [address] [place] GAUR[place] THORACIC 2 MEDICAL ANGELA SPINE W/O SERV CONTRAST FOUNDATIO MATERIAL ECG 13174 [place] LUCRETIA POOJA ROUTINE 2 MEDICAL ECG [...] URBAN [place] [address] [place] XIMENA JAM HEAD/BRAI 2 MEDICAL N W/O SERV CONTRAST FOUNDATIO MATERIAL INJECTION J0515 [place] [address] Y Y [facility] NE MESYLATE [place] [address] [place] [address] [place] ESCOTT HEAD/BRAI 2 MEDICAL EDW N W/O SERV CONTRAST FOUNDATIO MATERIAL AMB A0427 EARL EARL SERVICE 2 FAYETTE FAYETTE ALS URBAN URBAN EMERGENCY COGOVT COGOVT TRANSPORT LEVEL 1 DRUG 38835 [facility] SCREEN 2 Y Y QUANTITAT [facility] SWAPNIL PHENYTOIN FREE GROUND A0425 EARL EARL MILEAGE 2 FAYETTE FAYETTE PER URBAN URBAN STATUTE CO[place] CO[place] MILE ALBUMIN 42983 [facility] SERUM 2 Y Y PLASMA/WH [facility] OLE BLOOD INJECTION J1200 [facility] 2 Y Y DIPHENHYD [facility] RAMINE HCL UP TO 50 MG INFUSION J7050 [facility] NORMAL 2 Y Y SALINE [facility] [place]UTION [address] [place] [address] [facility] INFUSION 2 Y Y THERAPY/P [facility] ROPHYLAXI S /DX 1ST TO 1 HR INJECTION J1165 [facility] 2 Y Y PHENYTOIN [facility] SODIUM PER 50 MG INJECTION J2060 [facility] 2 Y Y LORAZEPAM [facility] 2 MG THERAPEUT 27163 [facility] IC 2 Y Y INJECTION [facility] IV PUSH EACH NEW DRUG BLOOD 38828 [facility] COUNT 2 Y Y COMPLETE [facility] AUTOMATED RADIOLOGI 48201 [place] NICKELS C 2 MEDICAL RYLIE EXAMINATI SERV ON KNEE 3 FOUNDATIO VIEWS RADIOLOGI 70113 [place] NICKELS C 2 MEDICAL RYLIE EXAMINATI SERV ON PELVIS FOUNDATIO 1/2 VIEWS RADIOLOGI 55240 [place] C 2 MEDICAL RYLIE EXAMINATI SERV ON TIBIA FOUNDATIO & FIBULA 2 VIEWS RADEX HIP 72091 [place] NICKELS 2 MEDICAL RYLIE UNILATERA SERV L FOUNDATIO COMPLETE MINIMUM 2 VIEWS BASIC 54310 [facility] METABOLIC 2 Y Y PANEL [facility] CALCIUM TOTAL DRUG 99780 [facility] SCREEN 2 Y Y QUANTITAT [facility] SWAPNIL PHENYTOIN TOTAL GROUND A0425 EARL EARL MILEAGE 2 FAYETTE FAYETTE PER URBAN URBAN STATUTE COGOVT COGOVT MILE AMB A0427 EARL EARL SERVICE 2 FAYETTE FAYETTE ALS URBAN URBAN EMERGENCY COGOVT COGOVT TRANSPORT LEVEL 1 RADIOLOGI 68006 [place] NICKELS C 2 MEDICAL RYLIE EXAMINATI SERV ON FEMUR FOUNDATIO 2 VIEWS RADIOLOGI 62624 [place] NICKEL[place] C 2 MEDICAL RYLIE EXAMINATI SERV ON CHE[place] [address] [place] CERVICAL 2 MEDICAL RYLIE SPINE W/O SERV CONTRAST FOUNDATIO MATERIAL RADIOLOGI 44991 [place] NICKEL[place] C EXAM 2 MEDICAL RYLIE CHEST 2 SERV VIEWS FOUNDATIO FRONTAL&L ATERAL GROUND A0425 EARL EARL MILEAGE 2 FAYETTE FAYETTE PER URBAN URBAN STATUTE COGOVT COGOVT MILE AMB A0427 EARL EARL SERVICE 2 FAYETTE FAYETTE ALS URBAN URBAN EMERGENCY COGOVT COGOVT TRANSPORT LEVEL 1 HOSPITAL 30761 [place] FEE DOM DISCHARGE 2 MEDICAL DAY SERV MANAGEMEN FOUNDATIO T 30 MIN/< LOCALIZE 63704 [place] CEREBRAL 2 MEDICAL JOSE MARTIN SEIZURE SERV CABLE/RAD FOUNDATIO IO EEG/VIDEO LOCALIZE 02133 [place] CEREBRAL 2 MEDICAL JOSE MARTIN SEIZURE SERV CABLE/RAD FOUNDATIO IO EEG/VIDEO SBSQ 09277 [place] [facility] 2 MEDICAL CARE/DAY SERV 25 FOUNDATIO MINUTES INITIAL 71797 [place] [facility] 2 MEDICAL CARE/DAY SERV 70 FOUNDATIO MINUTES AMB A0427 EARL EARL SERVICE 2 FAYETTE FAYETTE ALS URBAN URBAN EMERGENCY COGOVT COGOVT TRANSPORT LEVEL 1 GROUND A0425 EARL EARL MILEAGE 2 FAYETTE FAYETTE PER URBAN [place] [address] [place] HEAD/BRAI 2 MEDICAL RYLIE N W/[place] [address] [place] CERVICAL 2 MEDICAL RYLIE SPINE W/O SERV CONTRAST FOUNDATIO MATERIAL AMB A0427 [facility] SERVICE 1 R FIRE R FIRE ALS EMS EMS EMERGENCY TRANSPORT LEVEL 1 GROUND A0425 [facility] MILEAGE 1 R FIRE R FIRE PER EMS EMS STATUTE MILE ECG 40581 GEILE LOBO GEILE LOBO ROUTINE 1 ECG W/LEAST 12 LDS I&R ONLY LOCALIZE 61535 [place] BRIANNA CEREBRAL 1 MEDICAL CHINMAY SEIZURE SERV CABLE/RAD FOUNDATIO IO EEG/VIDEO HOSPITAL 82525 [place] HODAN DISCHARGE 1 MEDICAL HENRY DAY SERV MANAGEMEN FOUNDATIO T 30 MIN/< INITIAL 72802 [place] [facility] 1 MEDICAL HENRY CARE/DAY SERV 50 FOUNDATIO MINUTES AMB A0422 [facility] OXYGEN&O2 1 R FIRE R FIRE SUPPLIES EMS EMS LIFE SUSTAININ G SITUATION GROUND A0425 [facility] MILEAGE 1 R FIRE R FIRE PER EMS EMS STATUTE MILE MRI BRAIN 69091 [place] CENTENO BRAIN 1 MEDICAL HARISH STEM W/O SERV W/CONTRAS FOUNDATIO T MATERIAL ELECTROEN 88767 [place] CEPHALOGR 1 MEDICAL JOSE MARTIN AM W/REC SERV AWAKE&ASL FOUNDATIO EEP GROUND A0425 [facility] MILEAGE 1 R FIRE R FIRE PER EMS EMS STATUTE MILE AMB A0427 [facility] SERVICE 1 R FIRE R FIRE ALS EMS EMS EMERGENCY TRANSPORT LEVEL 1 CRITICAL 12309 [facility] CARE 1 EMERGENCY ILL/INJUR SERVICES ED PATIENT [...] FIRE PER EMS EMS STATUTE MILE RADIOLOGI 40021 [facility] [place] C 1 RADIOLOGY OSKAR EXAMINATI ON CHEST [place] FRONTAL ECG 07195 LEONEL KIRANID ROUTINE 1 EMERGENCY AKM ECG SERVICES W/LEAST 12 LDS I&R ONLY EXC B9 15293 [place] SHAKEEL LESION 1 MEDICAL CHLOE MRGN XCP SERV SK TG FOUNDATIO S/N/H/F/G 1.1-2.0CM ANES 77409 [facility] BOLDEN GAV INTEG 1 LTH [facility] & ANESTHESI NRV HEAD A PSC NECK&POST ERIOR TRUNK LEVEL III 13644 [facility] TANOUS SURG 1 EDW PATHOLOGY PATHOLOGY ASSOCIAT GROSS&SAMANTHA ROSCOPIC EXAM COLLECTIO 94705 ALBERTA Finney VENOUS 1 REGIONAL REGIONAL BLOOD MEDICAL MEDICAL VENIPUNCT CENTE CENTE URE BASIC 36214 ALBERTA PINZON METABOLIC 1 REGIONAL REGIONAL PANEL MEDICAL MEDICAL CALCIUM CENTE CENTE TOTAL ECG 40630 ALBERTA PINZON ROUTINE 1 REGIONAL REGIONAL ECG MEDICAL MEDICAL W/LEAST CENTE CENTE 12 LDS TRCG ONLY W/O I&R DEEP D9220 ALVARADO Perez BAUTISTA III SEDATION/ 1 BAUTISTA III LYUBOV GENERAL PSC N0 3 ANESTHESI A-1ST 30 MINUTES ALVEOLOPL 89575 ALVARADO I BAUTISTA III ASTY EACH 1 BAUTISTA III LYUBOV QUADRANT PSC N0 3 SPECIFY ORTHOPANT 00026 ALVARADO I BAUTISTA III OGRAM 1 BAUTISTA III LYUBOV PSC N0 3 ECG 69776 RAMONA YUN YUN RAMONA ROUTINE 1 MD ECG CONSULTIN W/LEAST G SRV 12 LDS I&R ONLY INITIAL 18443 CARTER MACHADO JUVENTINO INPATIENT 1 CONSULT NEW/ESTAB [place] [address] [place] [address] [facility] [place] SCALF MARII HEAD/BRAI 1 RADIOLOGY N W/O CONTRAST MATERIAL CHROMATOG 68966 [facility] HUMBERTO 1 Y Y [facility] [place] [address] [facility] THYROID 1 Y [facility] TSH LIPID 53913 [facility]IVERS PANEL 1 Y Y [facility] DRUG 07405 [facility] SCREEN 1 Y Y [facility] SWAPNIL PHENYTOIN TOTAL COLLECTIO 22799 [facility] UNIVERS N VENOUS 1 Y Y BLOOD [facility] [place] [address] [facility] FERRITIN 1 Y Y [facility] COMPREHEN 74738 [facility] SIVE 1 Y Y METABOLIC [facility] PANEL BLOOD 73449 [facility] UNIVERS COUNT 1 Y Y COMPLETE [facility] AUTOMATED IRON 16866 [facility] BINDING 1 Y Y CAPACITY [facility] [place] [address] [facility] DK OLSEN HEAD/BRAI 1 RADIOLOGY N W/[place] [address] ALBERTA PINZON ABDOMEN 1 REGIONAL REGIONAL W/O & MEDICAL MEDICAL W/CONTRAS CENTE CENTE T MATERIAL Encounters Encounter Start End Date Code Location Performer Type Date EMERGENCY 84557 BRIAN JUAN DEPT 7 7 PHYSICIAN U VISIT S, PLLC HIGH SEVERITY& THREAT [facility] EMERGENCY 76795 BRIAN JUAN DEPT 7 7 PHYSICIAN U VISIT S, PLLC HIGH SEVERITY& THREAT [facility] KE - 7 7 [facility] OUTPATIEN INC T EMERGENCY 09372 Jeffrey MCCARTHY 7 PHYSICIAN JR DEPARTMEN S, PLLC T VISIT MODERATE SEVERITY EMERGENCY 88511 KE 7 7 [facility] DEPART[facility] T VISIT LOW/MODER SEVERITY HOSPITAL KE - Jeffrey 7 [facility] OUTPATIEN INC T EMERGENCY 84258 KE 7 7 [facility] DEPARTMEN INC T VISIT MODERATE SEVERITY EMERGENCY 71937 BRIAN OLMEDO DEPT 7 7 PHYSICIAN VISIT S, PLLC HIGH SEVERITY& THREAT [facility] EMERGENCY 08553 BRIAN PEOPLES DEPT 7 7 PHYSICIAN VISIT S, PLLC HIGH SEVERITY& THREAT [facility] KE - 7 7 [facility] OUTPATIEN INC T EMERGENCY 52492 KE 7 7 [facility] DEPARTMEN INC T VISIT HIGH/URGE NT SEVERITY HOSPITAL KE - 7 7 [facility] OUTPATIEN INC T HOSPITAL KE - 7 7 [facility] INC T OFFICE 47514 [facility] 7 7 PHYSICIAN T VISIT S GROUP 25 MINUTES OFFICE 93408 [facility] PHYSICIAN T NEW 20 S GROUP MINUTES EMERGENCY 12002 BRIAN OLMEDO 7 7 PHYSICIAN DEPARTMEN S, PLLC T VISIT HIGH/URGE NT SEVERITY EMERGENCY 08498 BRIAN FIELDS DEPT 6 6 PHYSICIAN VISIT S, PLLC HIGH SEVERITY& THREAT [facility] OFFICE 40531 [facility] 6 Y T VISIT 5 HOSPITAL MINUTES HOSPITAL [facility] - 6 6 Y OUTPATIEN HOSPITAL T EMERGENCY 88379 BRIAN JUAN 6 6 PHYSICIAN U BEN DEPARTMEN S, PLLC T VISIT MODERATE SEVERITY EMERGENCY 67295 BRIAN BUCIO 6 6 PHYSICIAN FOR DEPARTMEN S, PLLC T VISIT MODERATE SEVERITY EMERGENCY 51654 KE 6 6 [facility] DEPARTMEN INC T VISIT LOW/MODER SEVERITY HOSPITAL KE - 6 6 [facility] OUTPATIEN INC T EMERGENCY 63368 BRIAN FIELDS 6 6 PHYSICIAN SAMANTHA DEPARTMEN S, PLLC T VISIT LOW/MODER SEVERITY EMERGENCY 28103 BRIAN FIELDS DEPT 6 6 PHYSICIAN SAMANTHA VISIT S, PLLC HIGH SEVERITY& THREAT FUN EMERGENCY 94167 BRIAN FIELDS DEPT 6 6 PHYSICIAN SAMANTHA VISIT S, PLLC HIGH SEVERITY& THREAT [facility] EMERGENCY 11728 BRIAN FIELDS DEPT 6 6 PHYSICIAN SAMANTHA VISIT S, PLLC HIGH SEVERITY& THREAT [facility] EMERGENCY 36910 BRIAN FIELDS DEPT 6 6 PHYSICIAN SAMANTHA VISIT S, PLLC HIGH SEVERITY& THREAT FUNJ [facility]OSPITAL KE - 6 6 [facility] OUTPATIEN INC T EMERGENCY 82439 BRIAN FIELDS DEPT 6 6 PHYSICIAN SAMANTHA VISIT S, PLLC HIGH SEVERITY& THREAT FUNCJ EMERGENCY 05796 KE 6 6 [facility] DEPARTMEN INC T VISIT MODERATE SEVERITY EMERGENCY 58286 BRIAN FIELDS 6 6 PHYSICIAN SAMANTHA DEPARTMEN S, PLLC T VISIT MODERATE SEVERITY HOSPITAL KE - 6 6 [facility] OUTPATIEN INC T EMERGENCY 95178 BRIAN JUAN 6 6 PHYSICIAN U BEN DEPARTMEN S, PLLC T VISIT MODERATE SEVERITY HOSPITAL KE - 6 6 [facility] OUTPATIEN INC T HOSPITAL KE - 6 6 [facility] OUTPATIEN INC T EMERGENCY 07085 BRIAN PEOPLES 6 6 PHYSICIAN MEGHNA DEPARTMEN S, PLLC T VISIT MODERATE SEVERITY EMERGENCY 77142 KE 6 6 [facility] DEPARTMEN INC T VISIT LOW/MODER SEVERITY EMERGENCY 64578 BRIAN FIELDS 6 6 PHYSICIAN SAMANTHA DEPARTMEN S, PLLC T VISIT MODERATE SEVERITY EMERGENCY 03599 BRIAN FIELDS DEPT 6 6 PHYSICIAN SAMANTHA VISIT S, PLLC HIGH SEVERITY& THREAT [facility] EMERGENCY 39141 BRIAN FIELDS DEPT 6 6 PHYSICIAN SAMANTHA VISIT S, PLLC HIGH SEVERITY& THREAT [facility] HOSPITAL KE - 6 6 [facility] OUTPATIEN INC T EMERGENCY 83562 [facility] V[facility]M INOR PROB EMERGENCY 63851 BRIAN FIELDS DEPT 6 6 PHYSICIAN SAMANTHA VISIT S, PLLC HIGH SEVERITY& THREAT FUNCJ EMERGENCY 38458 BRIAN FIELDS 6 6 PHYSICIAN SAMANTHA DEPARTMEN S, PLLC T VISIT MODERATE SEVERITY EMERGENCY 21274 BRIAN FIELDS 6 6 PHYSICIAN SAMANTHA DEPARTMEN S, PLLC T VISIT HIGH/URGE NT SEVERITY EMERGENCY 85464 BRIAN FIELDS DEPT 6 6 PHYSICIAN SAMANTHA VISIT S, PLLC HIGH SEVERITY& THREAT [facility] EMERGENCY 45430 BRIAN FIELDS DEPT 6 6 PHYSICIAN SAMANTHA VISIT S, [facility] HIGH SEVERITY& THREAT [facility] KE - 6 6 [facility] T EMERGENCY 24139 BRIAN FIELDS 6 6 PHYSICIAN [facility]TH[facility] T VISIT HIGH/URGE NT SEVERITY EMERGENCY 24534 KE 6 6 [facility] DEPARTMEN INC T VISIT LIMITED/M INOR PROB EMERGENCY 24232 BRIAN FIELDS 6 6 PHYSICIAN SAMANTHA [facility], [facility] MODERATE SEVERITY EMERGENCY 04310 BRIAN JUAN DEPT 6 6 PHYSICIAN U BEN [facility]ISIT S, [facility] HIGH SEVER[facility]& THREAT FUNCJ EMERGENCY 88348 KE 6 6 [facility] DEPARTMEN INC T VISIT LOW/MODER SEVERITY HOSPITAL KE - 6 6 [facility] OUTPATIEN INC T EMERGENCY 37549 BRIAN PERRY MOH 6 6 PHYSICIAN [facility]PARTMEN [facility], [facility] HIGH/URGE NT SEVERITY EMERGENCY 02429 KE 6 6 [facility] DEPARTMEN INC T VISIT LOW/MODER SEVERITY HOSPITAL KE - 6 6 [facility] OUTPATIEN INC T EMERGENCY 40445 BRIAN PERRY MOH 6 6 PHYSICIAN [facility]PARTMEN [facility], [facility]IS[facility] HIGH/URGE NT SEVERITY HOSPITAL KE - 6 6 [facility] OUTPATIEN INC T EMERGENCY 20729 BRIAN RAMOS SYLVIA 6 6 PHYSICIAN DEPARTMEN S, [facility] T [facility]IS[facility] HIGH/URGE NT SEVERITY EMERGENCY 05019 KE 6 6 [facility]PART[facility] T VISIT LOW/MODER SEVERITY EMERGENCY 51216 KE 6 6 [facility] [place] VISIT HIGH/URGE NT SEVERITY HOSPITAL KE - 6 6 [facility] REJI - 6 6 N [facility] 6 6 [facility] EMERGENCY 93261 KE 6 6 [facility] [place] 2[facility] VISIT LOW/MODER SEVERITY EMERGENCY 24569 BRIAN JUAN 6 6 PHYSICIAN [place] [facility] T VISIT HIGH/URGE NT SEVERITY EMERGENCY 10225 BRIAN PERRY [facility] [place] 6 6 PHYSICIAN [facility] T VISIT HIGH/URGE NT SEVERITY EMERGENCY 92448 KE 6 [address] [facility] T VISIT LOW/MODER SEVERITY HOSPITAL KE - 6 6 [facility] EMERGENCY 63798 BRIAN BUCIO DEPT 5 5 PHYSICIAN FOR VISIT [facility] HIGH SEVERITY& THREAT [facility] EMERGENCY 05464 BRIAN LEWIS 5 5 PHYSICIAN [facility] T VISIT HIGH/URGE NT SEVERITY EMERGENCY 73378 KE 5 5 [facility] [place] 2] VISIT HIGH/URGE NT SEVERITY HOSPITAL KE - 5 5 [facility] OFFICE 84821 REJI [facility] 5 5 N ION NEUROLOGY NEW/ESTAB PATIENT 60 MIN HOSPITAL REJI - 5 5 N OUTPATIEN [facility] KE - 5 5 [facility] KE [facility] 5 5 [facility] 11817 [facility]RIAN JUAN 5 5 [facility] HOSPITAL S, [facility] T VISIT HIGH/URGE NT SEVERITY EMERGENCY 65335 BRIAN REES 5 5 PHYSICIAN [facility] S, [facility] T VISIT HIGH/URGE NT SEVERITY OFFICE 86261 [facility] OUTPATIEN 5 5 PHYSICIAN RUSLAN Bhatti NEW 45 S GROUP MINUTES EMERGENCY 25925 BRIAN JUAN 5 5 PHYSICIAN U [facility], [facility] T VISIT HIGH/URGE NT SEVERITY OFFICE 73999 [facility] 5 5 [place] VISIT ORTHOPAED 15 [facility] MINUTES EMERGENCY 49131 BRIAN JUAN 5 5 PHYSICIAN [facility], [facility] T VISIT LOW/MODER SEVERITY EMERGENCY 90192 BRIAN ABDI 5 5 PHYSICIAN [facility], [facility] T VISIT HIGH/URGE NT SEVERITY OFFICE 90285 [facility] [place] 5 5 [place] VISIT ORTHOPAED 15 [facility] MINUTES OFFICE 59357 [facility] OUTPATIEN 5 5 PHYSICIAN TARAN T NEW 45 S GROUP MINUTES OFFICE 27124 [facility] OUT[facility] 5 5 [place] T NEW 30 ORTHOPAED MINUTES [facility] HOME VST 73968 MD2U LOEBKER EST PT 5 5 [place] [facility] SIGNIF NEW PROB 60 MINS HOME VST 66602 MD2U LOEBKER EST PT 5 5 [place] [facility] SIGNIF NEW PROB [address] [facility] 5 5 [facility] T VISIT [facility] [address] - 5 5 [facility] OUTPATIEN [facility] CTR T QUALITY CONTROL LAB TECH ST HOME VST 30168 MD2U LOEBKER EST PT 5 5 [place] [facility] SIGNIF NEW PROB [address] [facility] OUTPATIEN 5 5 [facility] T NEW 30 MINUTES PHYSICIAN S HOME VST 38182 MD2U MANISHAEBKER EST PT 5 5 [facility] SIGNIF NEW PROB 60 MINS HOME VST 38109 MD2U MANISHAEBKER EST PT 5 5 [place] [facility] SIGNIF NEW PROB 60 MINS HOME VST 26895 MD2U LOEBKER EST PT 5 5 [place] [facility] SIGNIF NEW PROB 60 MINS HOME VST 44222 MD2U MANISHAEBKER EST PT 4 4 [place] [facility] SIGNIF NEW PROB 60 MINS HOME VST 01163 MD2U MANISHAEBKER EST PT 4 4 [place] [facility] SIGNIF NEW PROB [address] [facility] OUTPATIEN 4 4 [facility] HEI T VISIT 15 PHYSICIAN MINUTES S EMERGENCY 79826 EMERGENCY DAVREN DEPT 4 4 CARE ANNETTE VISIT PHYS HIGH [facility] SEVERITY& THREAT [facility]J HOME VST 85181 MD2U MANISHAEBKER EST PT 4 4 [place] [facility] SIGNIF NEW PROB 60 MINS EMERGENCY 34281 EMERGENCY [place] 4 4 [facility]ARE LOREN DEPARTMEN PHYS T [facility]IT [facility] HIGH/URGE NT SEVERITY HOME VST 78976 MD2U MANISHAEBKER EST PT 4 4 [place] [facility] SIGNIF NEW PROB [address] - 4 4 [facility] OUTPATIEN FT T CRUZ EMERGENCY 98764 EMERGENCY ELLEMAN 4 4 CARE SAMANTHA DEPARTMEN PHYS T VISIT [facility] HIGH/URGE NT SEVERITY OFFICE 78346 [facility] OUTPATIEN 4 4 PLASTIC T NEW 30 SURGERY MINUTES GROUP [facility] ST - 4 4 [facility] OUTPATIEN [facility] ST - 4 [address] [place] [facility] OFFICE 04601 ST AN OUTPATIEN 4 4 [facility] PRIMO CHLOE T VISIT [address] [facility] ST - 4 4 [facility] OUTPATIEN MED CTR T QUALITY CONTROL LAB TECH OFFICE 51113 ST AN OUTPATIEN 4 4 [facility] PRIMO CHLOE T VISIT 25 PHYSICIAN MINUTES S EMERGENCY 19079 EMERGENCY DEPT 4 4 CARE VISIT PHYS HIGH [facility]THER[facility] SEVERITY& THREAT [facility] ST - 4 [address] [facility] OFFICE 19513 ST AN OUTPATIEN 4 4 [facility] PRIMO CHLOE T VISIT 25 PHYSICIAN MINUTES S EMERGENCY 97389 [facility] 3 3 [facility] LUCIUSMEN MED CTR T VISIT MODERATE SEVERITY OFFICE 50576 ST VAL OUTPATIEN 3 3 [facility] KAII T VISIT [address] [facility] ST - [address] [facility] OFFICE 94782 ST AN OUTPATIEN 3 3 [facility] PRIMO CHLOE T VISIT 15 PHYSICIAN MINUTES S EMERGENCY 76258 EMERGENCY DAVREN 3 3 CARE ANNETTE DEPARTMEN PHYS T VISIT [facility] HIGH/URGE NT SEVERITY EMERGENCY 22986 EMERGENCY [place] DEPT 3 3 CARE LOREN VISIT PHYS HIGH [facility] SEVERITY& THREAT [facility] OFFICE 37364 [facility] OUT[facility] 3 3 [facility] MAT T NEW 20 ORTHOPAE MINUTES EMERGENCY 50093 EMERGENCY DORY 3 3 CARE SANGEETA DEPARTMEN PHYS T VISIT [facility] HIGH/URGE NT SEVERITY OFFICE 03821 ST AN OUTPATIEN 3 3 [facility] PRIMO CHLOE T VISIT 15 PHYSICIAN MINUTES S EMERGENCY 13149 LEONEL COBOS DEPT 3 3 EMERGENCY VISIT SERVICES HIGH SEVERITY& THREAT [facility] OFFICE 91296 ST AN OUTPATIEN 3 3 [facility] PRIMO CHLOE T VISIT 25 PHYSICIAN MINUTES S OFFICE 51293 ST [facility] OUTPATIEN 3 3 [facility] LOREN T VISIT 15 PHYSICIAN MINUTES S OFFICE 20150 ST AN OUTPATIEN 3 3 [facility] PRIMO CHLOE T VISIT 25 PHYSICIAN MINUTES S EMERGENCY 90430 LEONEL COBOS DEPT 3 3 EMERGENCY VISIT SERVICES HIGH SEVERITY& THREAT [facility] KE - 3 3 [facility] OUTPATIEN INC T EMERGENCY 05195 KE 3 3 [facility] DEPARTMEN INC T VISIT MODERATE SEVERITY EMERGENCY 32522 LEONEL VERDUZCO DEPT 3 3 EMERGENCY VISIT SERVICES HIGH SEVERITY& THREAT [facility] ST - 3 3 [facility] OUTPATIEN FT T CRUZ OFFICE 71115 ST OUTPATIEN 3 3 [facility] T VISIT FT 10 [facility] [address] - 3 3 [facility] OUTPATIEN FT T CRUZ OFFICE 24880 ST [facility] HEL OUTPATIEN 3 3 [facility] T VISIT [address] PHYSIC[address] [facility] [address] - 3 3 [facility] OUTPATIEN FT T CRUZ OFFICE 38765 ST [facility] OUTPATIEN 3 3 [facility] HEI T NEW 45 MINUTES [facility] ST - 3 3 [facility] OUTPATIEN FT T CRUZ OFFICE 78388 ST DE[facility] HEL OUTPATIEN 3 3 [facility] T VISIT 15 PHYSICIAN MINUTES S OFFICE 05088 ST DIANNE HEL OUTPATIEN 3 3 [facility] T VISIT 25 PHYSICIAN MINUTES S OFFICE 45888 ST DIANNE HEL OUTPATIEN 3 3 [facility] T VISIT 25 PHYSICIAN MINUTES S EMERGENCY 83547 LEONEL FIELDS DEPT 3 3 EMERGENCY SAMANTHA VISIT SERVICES HIGH SEVERITY& THREAT [facility] CENTRAL - 2 2 [facility] UNIVERSIT - 2 2 [facility] T EMERGENCY 96317 UNIVERSIT 2 2 Y [facility] HOSPITAL T VISIT LOW/MODER SEVERITY EMERGENCY 30664 [facility] 2 2 EMERGENCY DEPARTMEN SERVICES T VISIT MODERATE SEVERITY OFFICE 58611 [facility]FINA [facility] BEN BEN T VISIT 25 MINUTES EMERGENCY 71237 DK FRIAS 2 2 MEDICAL [facility] SERV T VISIT FOUNDATIO HIGH/URGE NT SEVERITY EMERGENCY 63886 UNIVERSIT 2 2 Y [facility] HOSPITAL T VISIT MODERATE SEVERITY HOSPITAL UNIVERSIT - 2 2 Y [facility] T OFFICE 97421 [facility] CONSULTAT 2 2 ELIZABETH RODRIGUEZ ION NEUROLOGY NEW/ESTAB PATIENT 40 MIN EMERGENCY 34669 DK PEREZ 2 2 MEDICAL SET DEPARTMEN SERV T VISIT FOUNDATIO HIGH/URGE NT SEVERITY EMERGENCY 93471 DK RENO 2 2 MEDICAL RYLIE DEPARTMEN SERV T VISIT FOUNDATIO HIGH/URGE NT SEVERITY OFFICE 31425 CORALFINA CORALES OUTPATIEN 2 2 BEN BEN T VISIT 15 MINUTES OFFICE 97522 CORALFINA CORALES OUTPATIEN 2 2 BEN BEN T NEW 45 MINUTES EMERGENCY 84010 DK REYES 2 2 MEDICAL I ALI DEPARTMEN SERV T VISIT FOUNDATIO HIGH/URGE NT SEVERITY [facility]OSPITAL [facility] - 2 2 [facility] 31803 DK RENO 2 2 MEDICAL RYLIE DEPARTMEN SERV T VISIT FOUNDATIO HIGH/URGE NT SEVERITY OFFICE 50364 [facility] CON[facility] 2 2 [facility] NEW/ESTAB PSC PATIENT 60 MIN EMERGENCY 00482 [facility] DEPT 1 1 VISIT HIGH SEVERITY& THREAT FUNCJ EMERGENCY 64811 LEONEL DEMPSEY 1 1 EMERGENCY SCO DEPARTMEN SERVICES T VISIT MODERATE SEVERITY EMERGENCY 67072 DK REYES DEPT 1 1 MEDICAL I ALI VISIT SERV HIGH FOUNDATIO SEVERITY& THREAT FUNCJ OFFICE 61904 [facility] OUT[facility] 1 1 I JOSE CRUZ I JOSE CRUZ T NEW 45 MINUTES EMERGENCY 78390 [facility] 1 EMERGENCY AKM VISIT SERVICES HIGH SEVERITY& THREAT FUNCJ OFFICE 43627 DK [facility] CONSULTAT 1 1 MEDICAL CHLOE ION SERV NEW/ESTAB FOUNDATIO PATIENT 60 MIN [facility] [place] - 1 1 [facility]ICE 30083 [facility] [place] [facility] T VISIT MEDICINE 25 P MINUTES OFFICE 86878 [place]VAR[place] I [place] III CONSULTAT 1 1 [place] III LYUBOV ION PSC N0 3 NEW/ESTAB PATIENT [address] [facility] DEPT 1 1 EMERGENCY VISIT SERVICES HIGH SEVERITY& THREAT FUNCJ OFFICE 56298 EUN[facility] BELCHER OUTPATIEN 1 1 [place] FAM[place] T VISIT MEDICINE 15 P MINUTES [facility]OS[facility] - [facility]
--- OUTSIDE RECORDS SUMMARY | 2017-06-27 21:23 | External Medical Summary Rpt ---
Author Author KATHI Pizano, [employer] Organization [employer] Address Unknown Phone Unavailable
--- OUTSIDE RECORDS SUMMARY | 2017-06-27 21:23 | External Medical Summary Rpt ---
Demographics Home Phone Preferred Language Gibraltarian Marital Status Unknown Synagogue Affiliation Unknown Race Unknown Ethnic Group Unknown Author Author KATHI Address Unknown Phone [email or web address] Immunization Name Date Rout CVX Reac Dose Comm Prov Is Faci e tion ent ider Refu lity Give sed n TST- 04-0 Intr 96 999 Hist MT No MT PPD 1-20 ader oric intr 14 mal al ader Info mal rmat ion - Sour ce Unsp ecif ied PPV2 02-2 Intr 33 999 Hist JUAN CARLOS No JUAN CARLOS 3 3-20 amus oric TTHO TTHO 14 cula al MAS MAS r Info rmat ion - Sour ce Unsp ecif ied
--- OUTSIDE RECORDS SUMMARY | 2017-06-27 21:23 | External Medical Summary Rpt ---
Demographics Home Phone Preferred Language Bahraini Marital Status Unknown Worship Affiliation Unknown Race Unknown Ethnic Group Unknown Author Author KATHI Address Unknown Phone [email or web address] Immunization Name Date Rout CVX Reac Dose Comm Prov Is Faci e tion ent ider Refu lity Give sed n TST- 04-0 Intr 96 999 Hist MS No MS PPD 1-20 ader oric intr 14 mal al ader Info mal rmat ion - Sour ce Unsp ecif ied PPV2 02-2 Intr 33 999 Hist JUAN CARLOS No JUAN CARLOS 3 3-20 amus oric TTHO TTHO 14 cula al MAS MAS r Info rmat ion - Sour ce Unsp ecif ied
--- OUTSIDE RECORDS SUMMARY | 2017-06-28 01:21 | External Medical Summary Rpt ---
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 IN 03 HF ti RA 20 3- 9 00 IC 29 AQ ve LI 01 20 20 0 NE 30 17 17 PH MU 5 AR [place] HC MA MM L CY AD 10 0 LL MG C TA BL ET BU 00 08 09 1 60 30 CL 44 Ac SP 11 -2 -1 0. IN 03 HF ti IR 51 3- 9 00 IC 27 AQ ve ON 69 [...] IN 23 ON ti TI 10 0- 00 IC 91 E ve RA 11 20 20 0 DI CE 50 17 17 PH XI TA 6 AR E M MA D 1, CY 00 0 LL MG C TA BL ET GE 42 07 09 11 60 30 CL 43 FR Ac MF 80 -0 -1 0. IN 58 YM ti IB 60 5- 9 00 IC 35 AN ve RO 26 20 20 0 ZI 00 17 17 PH EU L 5 AR GO 60 MA ND 0 CY A MG F LL TA C BL ET LO 00 07 09 11 60 30 CL 43 FR Ac VA 17 -0 -1 0. IN 58 YM ti ZA 30 5- 9 00 IC 29 AN ve 1 88 20 20 0 40 17 17 PH EU GM 8 AR GO MA ND CA CY A PS F UL LL E C TO 68 07 09 11 60 30 CL 43 FR Ac PI 46 -0 -1 0. IN 58 YM ti RA 20 5- 9 00 IC 27 AN ve MA 11 20 20 0 TE 06 17 17 PH EU 0 AR GO 20 MA ND 0 CY A MG F LL TA C BL ET OM 68 07 09 11 30 30 CL 43 FR Ac EP 46 -0 -1 0. IN 58 YM ti RA 20 5- 9- 00 IC 26 AN ve ZO 39 20 20 0 LE 60 17 17 PH EU [address] MA ND CY A 20 F LL MG C CA PS UL E TR 68 07 09 11 30 30 CL 43 FR Ac IA 00 -0 -1 0. IN 58 YM ti MT 10 5- 9 00 IC 24 AN ve ER 21 20 20 0 EN 60 17 17 PH EU E- 3 AR GO HC MA ND TZ CY A F 37 LL .5 C -2 5 MG TB FL 00 07 09 11 16 30 CL 43 FR Ac UT 05 -0 -1 0. IN 58 YM ti IC 43 5- 9- 00 IC 36 AN ve 27 20 20 0 ON 09 17 17 PH EU E 9 AR GO DE MA ND OP CY A F 50 LL C MC G SP RA Y ME 67 04 09 10 60 30 CL 42 FR Ac TF 87 -2 -1 0. IN 94 YM ti OR 70 00 IC 74 AN ve WV 56 20 20 0 N 11 17 17 PH EU HC 0 AR GO L MA ND 50 CY A 0 F MG LL C TA BL ET OL 43 08 09 1 30 30 CL 44 Ac AN 59 -2 -1 0. IN 03 HF ti ZA 80 3 00 IC 31 AQ ve PI 16 20 20 0 NE 43 17 17 PH MU 5 0 AR [place] MA MM MG CY AD TA LL BL C ET MO 68 07 09 11 30 30 CL 43 FR Ac NT 08 -0 -1 0. IN 58 YM ti EL 40 - 9- 00 IC 34 AN ve UK [...] LL G C IN [place] LE R DE 59 07 09 11 85 25 CL 43 FR Ac OA 31 -0 -1 .0 IN 58 YM ti IR 00 5- 9- 00 IC 30 AN ve 57 20 20 HF 92 17 17 PH EU A 2 AR GO 90 MA ND CY A MC F G LL IN C [place] LE R CE 69 09 09 0 20 10 [...] 66 -0 -0 0. IN 18 ti DE 40 7- 7- 00 IC 57 AN ve OL 47 20 20 0 OL 75 17 17 PH EU 8 AR GO TA MA ND RT CY A RA F TE LL C 50 MG TA B CL 00 08 09 1 60 30 [...] SP 66 -2 -2 0. IN 03 ti ER 80 3- 8- 00 IC [...] 20 00 IN 40 17 17 PH WV 1 AR CH 40 MA AE 0 [...] CY 0 ML LL C MARCIAL SP SE 16 06 08 1 60 30 [...] AD MG LL C TA BL ET DE 59 07 08 11 85 25 CL [...] 58 YM ti MT 10 5- 1- IC 24 AN ve ER 42 20 20 0 EN 40 17 17 PH EU E- 5 AR GO HC MA ND TZ CY A F 37 LL .5 C -2 5 MG TB ME 53 04 08 10 60 30 CL 42 FR Ac TF 74 -2 -2 0. IN 94 YM ti OR 60 7- 1- 00 IC 74 AN ve WV 21 20 20 0 N 81 17 17 PH EU HC 0 AR GO L MA ND 50 CY A 0 F MG LL C TA BL ET ME 57 04 08 10 60 30 CL 42 FR Ac TO 23 -2 -2 0. IN 94 YM ti DE 70 7- 1- 00 IC 79 AN [...] MG LL C TA BL ET MO 29 07 08 11 30 30 [...] 17 PH EU E 6 AR GO DE MA ND OP CY A F 50 [...] 20 00 IN 40 17 17 PH WV 1 AR CH 40 MA AE 0 [...] 0 LL MG C TA BL ET SY 00 07 07 11 10 30 CL 43 FR Ac MB 18 -0 -2 2. IN 58 YM ti IC 60 5- 5- 00 IC 31 AN ve OR 37 20 20 0 T 02 17 17 PH EU 16 0 AR GO 0- MA ND 4. CY A 5 F MC LL G C IN [place] LE R DE 59 07 07 11 85 25 CL [...] 17 PH EU E 6 AR GO DE MA ND OP CY A F 50 LL C MC G SP RA Y GE 57 07 07 11 60 30 [...] MG F LL TA C BL ET PH 00 07 07 11 12 30 CL 43 FR Ac EN 37 -0 -2 00 IN 58 YM ti YT 81 5- 5- .0 IC 25 AN ve OI 56 20 20 00 N 00 17 17 PH EU SO 1 AR BLAKE D NITESH ND EX CY A T F 10 LL 0 C MG CA P ME 53 04 07 10 60 30 CL 42 FR Ac TF 74 -2 -2 0. IN 94 YM ti OR 60 7- 5- 00 IC 74 AN ve WV 21 20 20 0 N 81 17 17 PH EU HC 0 AR GO L NITESH ND 50 CY A 0 F MG LL C TA BL ET ME 00 04 07 10 60 30 CL 42 FR Ac TO 37 -2 -2 0. IN 94 YM ti DE 80 7- 5- 00 IC 79 AN [...] LL [address] ET [place] 68 07 07 1 30 7 [...] 7- 8- 00 IC 74 AN ve WV 21 20 20 0 N 81 17 [...] F MG LL C TA BL ET BU 16 05 06 11 60 30 [...] 17 PH XI E 6 AR E DE MA D OP CY 50 LL C [...] MG LL CA C PS UL E SE 16 05 06 1 60 30 [...] -2 -2 0. IN 94 YM ti DE 70 7- 8- 00 IC 79 AN [...] LL G C IN [place] LE R DE 59 06 06 0 85 25 CL [...] 62 -2 -1 .0 00 IN ti WV 97 7- 6- 00 00 IC ve [...] 23 -2 -1 .0 00 IN ti DE 70 7- 6- 00 00 IC ve [...] 17 94 PH E 6 86 AR DE MA OP CY 50 MC G SP [...] 60 3- 2- 00 00 IC ve WV 21 20 20 42 N 81 17 [...] 4 MA MG CY TA BL ET SE 16 05 06 [...] 17 PH XI E 6 AR E DE MA D OP CY 50 LL C [...] 7- 1- 00 IC 74 AN ve WV 21 20 20 0 N 81 17 17 PH EU HC 0 AR GO L MA ND 50 CY A 0 F MG LL C TA BL ET ME 57 05 05 60 30 00 CL Ac TO 23 -0 -2 .0 00 IN ti DE 70 1- 6- 00 00 IC ve [...] IN ti RB 10 1- 6- 00 IC ve AZ 29 20 20 [...] .0 00 IN ti ZA 30 1- 6- 00 00 IC ve PI 68 20 20 42 NE 53 17 17 97 PH 0 92 AR 20 MA CY MG TA BL ET 54 05 05 30 30 00 CL Ac TA 62 -0 -2 .0 00 IN ti WV 97 1- 6- 00 00 IC ve [...] 60 7- 2- 00 00 IC ve WV 21 20 20 42 N 81 17 [...] 62 -0 -0 .0 00 IN ti WV 97 3- 5- 00 00 IC ve [...] 37 -0 -0 .0 00 IN ti DE 80 5- 5- 00 00 IC ve [...] 17 70 PH E 6 48 AR DE MA OP CY 50 MC G SP [...] 20 CY MG CA PS UL E CL 00 03 04 42 14 00 [...] 20 2- 4- 00 13 CA ve WV 00 20 20 92 RE N 89 [...] 90 -1 -0 .0 00 D ti WV 45 4- 7- 00 13 CA ve [...] 10 CY 0 MG TA BL ET TO 68 03 03 [...] 37 -1 -3 .0 00 D ti DE 80 0- 1- 00 13 CA ve [...] 20 1- 4- 00 13 CA ve WV 00 20 20 77 RE N 89 [...] 37 -1 -2 .0 00 D ti DE 80 0- 4- 00 13 CA ve [...] 90 -1 -2 .0 00 D ti WV 45 3- 4- 00 13 CA ve [...] MG CA PS UL E GA 16 02 03 90 10 00 [...] AR MG MA CY TA BL ET LE 16 02 03 62 30 00 [...] 20 3- 7- 00 13 CA ve WV 00 20 20 63 RE N 89 [...] 37 -1 -0 .0 00 D ti DE 80 3- 3- 00 13 CA ve [...] 90 -1 -0 .0 00 D ti WV 45 4- 3- 00 13 CA ve [...] 30 6- 0- 00 13 CA ve WV 31 20 20 50 RE DE 10 [...] 20 4- 3- 00 13 CA ve WV 00 20 20 49 RE N 89 [...] 37 -1 -0 .0 00 D ti DE 80 5- 9- 00 13 CA ve [...] 90 -1 -0 .0 00 D ti WV 45 6- 9- 00 13 CA ve [...] 16 17 59 E 9 69 PH DE AR OP MA CY 50 LL MC C G SP RA Y HY 00 07 07 0 30 [address] 59 -2 -2 0. D 50 NO ti OC 13 3 CA 36 LD ve OD 20 20 20 0 RE 11 ON 20 15 15 RI -A 1 PH CH CE AR AR TA MA D WV CY W NO PH LL EN C [...] OR 20 9 CA 84 LD ve WV 75 20 20 0 RE 72 N [...] -2 -2 0. D 49 NO ti DE 40 9 CA 84 LD ve OL [...] -2 -2 0. D 49 NO ti WV 45 9- 5- 00 CA 84 LD [...] JE CE AR WE TA MA LL WV CY NO PH LL EN C 5- [...] -2 -2 0. D 40 NO ti WV 45 9- 6- 00 CA 58 LD [...] -2 -2 0. D 40 NO ti DE 40 9- 6- 00 CA 58 LD [...] 9- 6- 00 CA 58 LD ve WV 02 20 20 0 RE 90 N [...] ti OR 20 CA 92 LD ve WV 02 20 20 0 RE 62 N [...] -2 0. D 32 NO ti DE 40 9- 9- 00 CA 92 LD [...] -2 -2 0. TA 74 EB ti WV 45 4- 9- 00 L 03 KE [...] -2 -2 0. TA 95 EB ti DE 80 0- 0- 00 L 92 KE [...] MA MG CY TA #5 BL ET DE 00 10 05 3 67 32 TO [...] 6- 2- 00 L 71 KE ve DE 21 20 20 0 CA R IL [...] -2 -2 0. TA 95 EB ti DE 80 0- 0- 00 L 92 KE [...] 4- 7- 00 L 02 KE ve WV 02 20 20 0 CA R N 81 15 15 RE TA HC 0 MM L PH Y 50 AR 0 MA MG CY TA #5 BL ET 00 03 04 6 30 30 TO 87 LO Ac TA 90 -2 -1 0. TA 74 EB ti WV 45 4- 7- 00 L 03 KE [...] 6- 6- 00 L 71 KE ve DE 41 20 20 0 CA R IL [...] 4- 4- 00 L 02 KE ve WV 02 20 20 0 CA R N 81 15 15 RE TA HC 0 MM L PH Y 50 AR 0 MA MG CY TA #5 BL ET 00 03 03 6 30 30 TO 87 LO Ac TA 90 -2 -2 0. TA 74 EB ti WV 45 4- 4- 00 L 03 KE [...] -0 -0 0. TA 58 AILYN ti DE 80 9- 9- 00 L 57 RN [...] -1 -1 0. TA 40 EB ti WV 45 9- 9- 00 L 75 KE [...] 7- 7- 00 L 39 KE ve WV 02 20 20 0 CA R N [...] -1 -1 0. TA 40 AILYN ti DE 80 1- 1- 00 L 67 RN [...] -2 -2 0. TA 24 EB ti WV 45 6- 6- 00 L 21 KE ve N 98 20 20 0 CA R D3 66 15 15 RE TA 0 MM 5, PH Y 00 AR 0 MA UN CY IT #5 CA PS UL E SE 59 08 01 5 60 30 TO 85 BR Ac RT 76 -2 -2 0. TA 91 AU ti RA 24 5- 3- 00 L 13 N ve LI 91 20 20 0 CA MA NE 00 14 15 RE RY 5 HC PH LO L AR U 10 MA 0 CY MG #5 TA BL ET ME 68 12 01 2 60 30 TO 86 OS Ac TF 38 -1 -2 0. TA 89 AILYN ti OR 20 7- 3- 00 L 17 RN ve WV 02 20 20 0 CA E N 81 14 15 RE LE HC 0 WI L PH S 50 AR RE 0 MA BE MG CY CC A TA #5 L BL ET OX 68 01 01 3 [...] -1 -1 0. TA 04 AILYN ti DE 80 0- 0- 00 L 26 RN [...] 7- 7- 00 L 17 RN ve WV 19 20 20 0 CA E N [...] -1 -1 0. TA 89 AILYN ti DE 20 7- 7- 00 L 16 RN [...] -2 -1 0. TA 36 AILYN ti WV 45 0- 7- 00 L 25 RN [...] ST CY Y ST #5 RI PS DE 00 12 12 0 50 5 TO [...] 0- 3- 00 L 36 RN ve WV 36 20 20 0 CA E N [...] -2 -1 0. TA 36 AILYN ti WV 45 0- 9- 00 L 25 RN [...] -0 -1 0. TA 51 AILYN ti DE 20 5- 9- 00 L 99 RN [...] 0- 9- 00 L 36 RN ve WV 21 20 20 0 CA E N [...] MG MA CY TA BL #5 ET DE 00 10 10 3 67 32 TO [...] -2 -2 0. TA 36 AILYN ti WV 45 0- 0- 00 L 25 RN ve N 98 20 20 0 CA E D3 66 14 14 RE LE 0 WI 5, PH S 00 AR RE 0 MA BE UN CY CC IT A #5 L CA PS UL E ME 00 08 10 2 60 30 TO 85 OS Ac TO 37 -1 -2 0. TA 82 AILYN ti DE 80 2- 0- 00 L 25 RN [...] 0- 0- 00 L 36 RN ve WV 02 20 20 0 CA E N [...] -2 -2 0. TA 71 AILYN ti WV 45 9- 3- 00 L 35 RN [...] -1 -1 0. TA 82 AILYN ti DE 20 2- 6- 00 L 25 RN [...] 8- 2- 00 L 03 RN ve WV 02 20 20 0 CA E N 81 14 14 RE LE HC 0 WI L PH S 50 AR RE 0 MA BE MG CY CC A TA #5 L BL ET 00 07 08 2 30 30 TO 85 OS Ac TA 90 -2 -2 0. TA 71 AILYN ti WV 45 9- 6- 00 L 35 RN [...] -1 -1 0. TA 82 AILYN ti DE 20 2- 2- 00 L 25 RN [...] 8- 4- 00 L 03 RN ve WV 02 20 20 0 CA E N [...] -2 -2 0. TA 71 AILYN ti WV 45 9- 9- 00 L 35 RN [...] CC A ST #5 L RI PS DE 00 07 07 3 67 32 TO [...] -1 -1 0. TA 14 AILYN ti DE 20 4- 5- 00 L 95 RN [...] 8- 8- 00 L 03 RN ve WV 02 20 20 0 CA E N [...] -3 -0 0. TA 03 AILYN ti WV 45 0- 1- 00 L 00 RN [...] -1 -1 0. TA 14 AILYN ti DE 20 4- 7- 00 L 95 RN [...] -3 -2 0. TA 03 AILYN ti WV 45 0- 7- 00 L 00 RN [...] -1 -1 0. TA 14 AILYN ti DE 20 4- 4- 00 L 95 RN [...] -3 -3 0. TA 03 AILYN ti WV 45 0- 0- 00 L 00 RN [...] CA R ON 09 14 14 RE WV E 9 CH DE PH AE OP AR L MA G [...] -1 -1 0. TA 42 AILYN ti DE 20 4- 6- 00 L 02 RN [...] 2- 3- 00 L 08 RN ve WV 10 20 20 CA E DE 51 [...] -1 -1 0. TA 42 AILYN ti DE 20 4- 3- 00 L 02 RN [...] 8- 1- 00 L 58 RN ve WV 10 20 20 CA E DE 51 [...] 9- 1- 00 L 39 RN ve WV 10 20 20 CA E DE 51 [...] -1 -1 0. TA 42 AILYN ti DE 20 4- 4- 00 L 02 RN [...] 4- 4- 00 L 03 RN ve WV 10 20 20 CA E DE 51 [...] AR U MA TA CY BL ET DE 68 02 02 2 30 30 TO [...] AR U MA TA CY BL ET DE 68 11 01 2 30 30 TO [...] CA R ON 09 13 14 RE WV E 9 CH DE PH AE OP AR L MA G 50 CY MC G SP RA Y CY 59 12 01 0 15 5 TO 84 RO Ac CL 74 -3 -0 0. TA 07 GE ti OB 60 1- 2- 00 L 92 RS ve EN 17 20 20 0 CA ZA 71 13 14 RE SH DE 0 AR IN PH ON E AR [...] AR CE PH ON TA AR E WV MA NO CY PH EN 5- 32 [...] AR U MA TA CY BL ET DE 68 11 12 2 30 30 TO [...] CA R ON 09 13 13 RE WV E 9 CH DE PH AE OP AR L MA G [...] R CE PH MA TA AR TT WV MA HE NO CY W PH S EN 5- 32 5 DE 68 11 11 0 30 8 TO 83 GR Ac OM 38 -1 -1 0. TA 72 UN ti ET 20 2- 2- 00 L 94 KE ve LUOIS 04 20 20 0 CA ME ZI [...] AR U MA TA CY BL ET DE 68 11 11 2 30 30 TO [...] TA CY CC BL A ET L DE 68 07 10 2 30 30 TO [...] EN CE PH TO TA AR N WV MA D NO CY PH EN 5- [...] .5 A -2 L 5 MG CP DE 68 07 08 2 30 30 TO [...] CA R ON 09 13 13 RE WV E 9 CH DE PH AE OP AR L MA G [...] 0- 0- 00 L 31 RN ve WV 10 20 20 CA E DE 51 [...] AR U MA TA CY BL ET DE 68 07 07 2 30 30 TO [...] CA R ON 09 13 13 RE WV E 9 CH DE PH AE OP AR L MA G [...] AR U MA TA CY BL ET DE 68 06 06 0 30 30 TO [...] 37 CY .5 -2 5 MG CP DE 68 05 05 0 30 30 TO [...] CA R ON 09 13 13 RE WV E 9 CH DE PH AE OP AR L MA G [...] MG MA CY SO FT GE L DE 68 04 04 0 30 30 TO [...] CA R ON 09 13 13 RE WV E 9 CH DE PH AE OP AR L MA G [...] CA R IN 80 13 13 RE WV E 1 CH 10 PH AE 0 [...] 0. MA 5 CY MG TA B DE 68 03 03 0 30 30 TO [...] CA R ON 09 13 13 RE WV E 9 CH DE PH AE OP AR L MA G 50 CY MC G SP RA Y DE 68 02 02 0 30 30 TO [...] CY TA BL ET TR 00 02 02 0 30 30 TO 81 WE Ac IA 52 -0 -0 0. TA 64 IS ti MT 71 8- 9- 00 L 78 S ve ER 63 20 20 0 CA HE EN 20 13 13 RE LE E- 1 N HC PH TZ AR MA 37 CY .5 -2 5 MG CP SE 00 02 02 0 60 30 [...] 34 TA 5 BL ET PH 65 09 10 2 12 30 CV 70 ME Ac EN 16 -1 -2 0. S 95 LV ti YT 20 5- 9- 00 PH 13 IL ve OI 21 20 20 0 AR LE N 21 11 11 MA SO 1 CY DA D # NI EX EL T 06 10 34 0 5 MG CA P CE 00 10 10 0 20 10 KM 68 [place] Ac PH 09 -2 -2 .0 AR 58 RR ti AL 33 8- 9- 00 T 30 IS ve EX 14 20 20 PH 0 ON IN 70 11 11 AR 1 MA SC 50 CY OT 0 97 T MG 49 M # CA PS 97 UL 49 E CV 50 09 10 11 30 30 CV 70 ME Ac S 42 -1 -2 .0 S 95 LV ti SE 87 5- 9- 00 PH 44 IL ve NN 07 20 20 AR LE A 92 11 11 MA LA 8 CY DA XA # NI TI EL VE 06 34 8. 5 6 MG TA B DE 00 09 10 11 30 30 CV [...] -1 -2 .0 S 95 LV ti DE 80 5- 9- 00 PH 48 IL [...] 34 T 5 D3 20 0 TB TO 31 10 10 3 60 30 [...] 34 8. 5 6 MG TA B DE 00 09 10 11 30 30 CV [...] -1 -0 .0 S 95 LV ti DE 80 5- 2- 00 PH 48 IL [...] MG 34 5 TA BL ET GE 00 09 09 2 60 30 CV 70 HO Ac OD 04 -0 -2 .0 S 77 UC ti ON 93 6- 0- 00 PH 60 HI ve 99 20 20 AR N 80 06 11 11 MA TI 0 CY MO MG # TH Y CA 06 PS 34 UL 5 E 00 09 09 0 24 4 CV [...] TOM # HN I 06 34 5 ZY 00 09 09 2 30 30 CV 70 HO Ac DE 00 -0 -1 .0 S 77 UC [...] Y 06 TA 34 BL 5 ET GA 68 07 08 2 90 30 [...] 32 34 5 5 MG TA B ME 00 06 08 1 60 30 CV 70 ME Ac TO 37 -2 -2 .0 S 14 LV ti DE 80 3- 8- 00 PH 04 IL [...] 34 8. 5 6 MG TA B DE 00 07 08 1 30 30 CV 70 ME Ac AV 09 -2 -2 .0 S 14 LV ti 37 2- 8- 00 PH 07 IL ve TA 20 20 20 AR LE TI 29 11 11 MA N 8 CY DA SO # NI DI EL UM 06 34 40 5 MG TA B GE 00 08 [...] 0 30 30 CV 70 GH Ac DE 00 -2 -2 .0 S 59 AN [...] 34 8. 5 6 MG TA B DE 00 07 07 1 30 30 CV [...] -2 -2 .0 S 14 LV ti DE 80 3- 2- 00 PH 04 IL [...] 34 8. 5 6 MG TA B DE 00 06 06 3 30 30 CV [...] -2 -2 .0 S 72 t ti DE 80 3- 3- 00 PH 76 Av [...] Comment HOME CARE S5108 [facility] [address] [place] [address] ELDER ELDER CARE CARE CARE CLIENT PER 15 MIN HOME CARE S5108 [facility] [address] [place] [address] ELDER ELDER CARE CARE CARE CLIENT PER 15 MIN HOME CARE S5108 [facility] [address] [place] [address] ELDER ELDER CARE CARE CARE CLIENT PER 15 MIN DAY CARE S5100 [facility] [address] [place] [address] ADULT; ELDER ELDER PER 15 CARE CARE MINUTES DAY CARE S5100 [facility] [address] [place] [address] ADULT; ELDER ELDER PER 15 CARE CARE MINUTES HOME CARE S5108 [facility] [address] [place] [address] ELDER ELDER CARE CARE CARE CLIENT PER 15 MIN HOME CARE S5108 [facility] [address] [place] [address] ELDER ELDER CARE CARE CARE CLIENT PER 15 MIN DAY CARE S5100 [facility] [address] [place] [address] ADULT; ELDER ELDER PER 15 CARE CARE MINUTES HOME CARE S5108 [facility] [address] [place] [address] ELDER ELDER CARE CARE CARE CLIENT PER 15 MIN HOME CARE S5108 [facility] [address] [place] [address] ELDER ELDER CARE CARE CARE CLIENT PER 15 MIN DAY CARE S5100 [facility] [address] [place] [address] ADULT; ELDER ELDER PER 15 CARE CARE MINUTES HOME CARE S5108 [facility] 7 [facility] ELDER ELDER CARE CARE CARE CLIENT PER 15 MIN HOME CARE S5108 [facility] 7 [facility] ELDER ELDER CARE CARE CARE CLIENT PER 15 MIN DAY CARE S5100 [facility] 7 [facility] ADULT; ELDER ELDER PER 15 CARE CARE MINUTES DAY CARE S5100 [facility] 7 [facility] ADULT; ELDER ELDER PER 15 CARE CARE MINUTES HOME CARE S5108 [facility] 7 [facility] ELDER ELDER CARE CARE CARE CLIENT PER 15 MIN HOME CARE S5108 [facility] 7 [facility] ELDER ELDER CARE CARE CARE CLIENT PER 15 MIN HOME CARE S5108 [facility] 7 [facility] ELDER ELDER CARE CARE CARE CLIENT PER 15 MIN RADIOLOGI [address] [place] 7 MEDICAL EXAMINATI SERV ON CHEST FOUNDATIO [place] FRONTAL ECG [address] [place] ROUTINE 7 MEDICAL ECG SERV W/LEAST FOUNDATIO 12 LDS N I&R ONLY HOME CARE S5108 [facility] 7 [facility] ELDER ELDER CARE CARE CARE CLIENT PER 15 MIN HOME CARE S5108 [facility] 7 [facility] ELDER ELDER CARE CARE CARE CLIENT PER 15 MIN DAY CARE S5100 [facility] 7 [facility] ADULT; ELDER ELDER PER 15 CARE CARE MINUTES GROUND A0425 [facility] AMBULANCE PER SERVICE SERVICE STATUTE MILE AMBULANCE A0429 [facility] SERVICE 7 AMBULANCE AMBULANCE BLS SERVICE SERVICE EMERGENCY TRANSPORT DAY CARE S5100 [facility] 7 [facility] ADULT; ELDER ELDER PER 15 CARE CARE MINUTES HOME CARE S5108 [facility] 7 [facility] ELDER ELDER CARE CARE CARE CLIENT PER 15 MIN HOME CARE S5108 [facility] 7 [facility] ELDER ELDER CARE CARE CARE CLIENT PER 15 MIN HOME CARE S5108 [facility] 7 [facility] ELDER ELDER CARE CARE CARE CLIENT PER 15 MIN INITIAL 72414 [facility] 7 PHYSICIAN A CARE/DAY S GROUP 50 MINUTES DAY CARE S5100 [facility] [address] ADULT; ELDER ELDER PER 15 CARE CARE MINUTES HOME CARE S5108 [facility] 7 [facility] ELDER ELDER CARE CARE CARE CLIENT PER 15 MIN AMBULANCE A0429 [facility] SERVICE 7 AMBULANCE AMBULANCE BLS SERVICE SERVICE EMERGENCY TRANSPORT GROUND A0425 [facility] MILEAGE 7 AMBULANCE AMBULANCE PER SERVICE SERVICE STATUTE MILE GROUND A0425 [facility] MILEAGE 7 AMBULANCE AMBULANCE PER SERVICE SERVICE STATUTE MILE AMBULANCE A0429 [facility] SERVICE 7 AMBULANCE AMBULANCE BLS SERVICE SERVICE EMERGENCY TRANSPORT HOME CARE S5108 [facility] 7 [facility] ELDER ELDER CARE CARE CARE CLIENT PER 15 MIN RADIOLOGI 19364 [place] 7 MEDICAL EXAMINATI IMAGING ON CHEST ASS SINGLE VIEW FRONTAL ECG 63951 [facility] [place] JR ROUTINE 7 [facility] W/LEAST P 12 LDS I&R ONLY DAY CARE S5100 [facility] [address] ADULT; ELDER ELDER PER 15 CARE CARE MINUTES HOME CARE S5108 [facility] 7 [facility] ELDER ELDER CARE CARE CARE CLIENT PER 15 MIN HOME CARE S5108 [facility] 7 [facility] ELDER ELDER CARE CARE CARE CLIENT PER 15 MIN DAY CARE S5100 [facility] [address] ADULT; ELDER ELDER PER 15 CARE CARE MINUTES HOME S5170 KE [facility] 7 CO. ADULT CO. ADULT MEALS DAY DAY INCLUDING ELDER ELDER PREPARATI ON; PER MEAL HOME S5170 KE [facility] 7 CO. ADULT CO. ADULT MEALS DAY DAY INCLUDING ELDER ELDER PREPARATI ON; PER MEAL DAY CARE S5100 KE DEMPSEY [address] ADULT; ELDER ELDER PER 15 CARE CARE MINUTES HOME CARE S5108 KE DEMPSEY TRAINING 7 [facility] ELDER ELDER CARE CARE CARE CLIENT PER 15 MIN HOME CARE S5108 KE DEMPSEY TRAINING 7 [facility] ELDER ELDER CARE CARE CARE CLIENT PER 15 MIN DAY CARE S5100 KE DEMPSEY [address] ADULT; ELDER ELDER PER 15 CARE CARE MINUTES HOME S5170 KE GONZALEZ 7 CO. ADULT CO. ADULT MEALS DAY DAY INCLUDING ELDER ELDER PREPARATI ON; PER MEAL HOME S5170 KE GONZALEZ 7 CO. ADULT CO. ADULT MEALS DAY DAY INCLUDING ELDER ELDER PREPARATI ON; PER MEAL DAY CARE S5100 KE GÓMEZ 7 [facility] ADULT; ELDER ELDER PER 15 CARE CARE MINUTES HOME CARE S5108 KE DEMPSEY TRAINING [address] [place] [address] ELDER ELDER CARE CARE CARE CLIENT PER 15 MIN HOME CARE S5108 KE DEMPSEY TRAINING [address] [place] [address] ELDER ELDER CARE CARE CARE CLIENT PER 15 MIN HOME S5170 KE GONZALEZ 7 CO. ADULT CO. ADULT MEALS DAY INCLUDING ELDER ELDER PREPARATI ON; PER MEAL HOME S5170 KE GONZALEZ 7 CO. ADULT CO. ADULT MEALS DAY INCLUDING ELDER ELDER PREPARATI ON; PER MEAL DAY CARE S5100 KE DEMP[facility] SERVICES [address] [place] [address] ADULT; ELDER ELDER PER 15 CARE CARE MINUTES HOME CARE S5108 KE DEMPSEY TRAINING [address] [place] [address] ELDER ELDER CARE CARE CARE CLIENT PER 15 MIN HOME CARE S5108 KE DEMPSEY TRAINING 7 [facility] ELDER ELDER CARE CARE CARE CLIENT PER 15 MIN CREATINE 86959 KE DEMPSEY KINASE 7 [facility] TOTAL INC INC RADEX HIP 93375 KE DEMPSE[facility] 7 [facility] UNILATERA INC INC L WITH PELVIS 2-3 VIEWS ECG 31786 KE CHRISTIE ROUTINE 7 [facility] W/LEAST P 12 LDS I&[place] [address] KE DEMPSEY TROPONIN 7 [facility] QUANTITAT INC INC SWAPNIL BLOOD 77475 KE ESTRELLA COUNT 7 [facility] COMPLETE INC AUTO&AUTO DIFRNTL WBC CREATINE 82546 KE DEMPSEY KINASE MB 7 [facility] FRACTION INC INC ONLY URNLS DIP 86146 KE DEMPSE[facility] 7 [facility] STICK/TAB INC INC LET REAGENT AUTO MICROSCOP Y HOME S5170 KE GONZALEZ 7 CO. ADULT CO. ADULT MEALS DAY DAY INCLUDING ELDER ELDER PREPARATI ON; PER MEAL AMB [id number] [facility] SERVICE 7 AMBULANCE AMBULANCE ALS SERVICE SERVICE EMERGENCY TRANSPORT LEVEL 1 ECG 41786 KE DEMPSEY ROUTINE 7 [facility] ECG INC INC W/LEAST 12 LDS TRCG ONLY W/O I&R GROUND A0425 [facility] AM[facility] PER SERVICE SERVICE STATUTE [facility] 64643 KE DEMPSEY SIVE 7 [facility] METABOLIC INC INC PANEL HOME S5170 KE GONZALEZ 7 CO. ADULT CO. ADULT MEALS DAY DAY INCLUDING ELDER ELDER PREPARATI ON; PER MEAL HOME CARE S5108 KE DEMPSEY TRAINING [address] [place] [address] ELDER ELDER CARE CARE CARE CLIENT PER 15 MIN HOME CARE S5108 KE DEMPSEY TRAINING [address] [place] [address] ELDER ELDER CARE CARE CARE CLIENT PER 15 MIN HOME S5170 KE GONZALEZ 7 CO. ADULT CO. ADULT MEALS DAY DAY INCLUDING ELDER ELDER PREPARATI ON; PER MEAL DAY CARE S5100 KE DEMPSEY [address] ADULT; ELDER ELDER PER 15 CARE CARE MINUTES HOME S5170 KE [facility] 7 CO. ADULT CO. ADULT MEALS DAY DAY INCLUDING ELDER ELDER PREPARATI ON; PER MEAL HOME CARE S5108 [facility] [address] [place] [address] ELDER ELDER CARE CARE CARE CLIENT PER 15 MIN HOME CARE S5108 KE [facility] [address] [place] [address] ELDER ELDER CARE CARE CARE CLIENT PER 15 MIN HOME S5170 KE GONZALEZ 7 CO. ADULT CO. ADULT MEALS DAY DAY INCLUDING ELDER ELDER PREPARATI ON; PER MEAL DAY CARE S5100 KE DEM[facility] [address] ADULT; ELDER ELDER PER 15 CARE CARE MINUTES DAY CARE S5100 KE DEMP[facility] [address] ADULT; ELDER ELDER PER 15 CARE CARE MINUTES HOME S5170 KE GONZALEZ 7 CO. ADULT CO. ADULT MEALS DAY DAY INCLUDING ELDER ELDER PREPARATI ON; PER MEAL HOME CARE S5108 KE [facility] [address] [place] [address] ELDER ELDER CARE CARE CARE CLIENT PER 15 MIN HOME CARE S5108 KE DENT [address] [place] [address] ELDER ELDER CARE CARE CARE CLIENT PER 15 MIN HOME S5170 KE GONZALEZ 7 CO. ADULT CO. ADULT MEALS DAY DAY INCLUDING ELDER ELDER PREPARATI ON; PER MEAL DAY CARE S5100 KE DEMP[facility] [address] ADULT; ELDER ELDER PER 15 CARE CARE MINUTES DAY CARE S5100 KE DEMP[facility] [address] ADULT; ELDER ELDER PER 15 CARE CARE MINUTES HOME S5170 KE GON[facility]ALEZ 7 CO. ADULT CO. ADULT MEALS DAY DAY INCLUDING ELDER ELDER PREPARATI ON; PER MEAL HOME CARE S5108 KE [facility] [address] [place] [address] ELDER ELDER CARE CARE CARE CLIENT PER 15 MIN HOME CARE S5108 KE [facility] TRA[facility] [address] [place] [address] ELDER ELDER CARE CARE CARE CLIENT PER 15 MIN HOME S5170 KE G[facility] 7 CO. ADULT CO. ADULT MEALS DAY DAY INCLUDING ELDER ELDER PREPARATI ON; PER MEAL DAY CARE S5100 KE DEMP[facility] [address] ADULT; ELDER ELDER PER 15 CARE CARE MINUTES DAY CARE S5100 KE DEMP[facility] [address] ADULT; ELDER ELDER PER 15 CARE CARE MINUTES HOME S5170 KE GON[facility]ALEZ 7 CO. ADULT CO. ADULT MEALS DAY DAY INCLUDING ELDER ELDER PREPARATI ON; PER MEAL HOME CARE S5108 KE [facility] [address] [place] [address] ELDER ELDER CARE CARE CARE CLIENT PER 15 MIN HOME CARE S5108 KE [facility] [address] [place] [address] ELDER ELDER CARE CARE CARE CLIENT PER 15 MIN HOME S5170 KE G[facility] 7 CO. ADULT CO. ADULT MEALS DAY DAY INCLUDING ELDER ELDER PREPARATI ON; PER MEAL DAY CARE S5100 KE DEMP[facility] [address] ADULT; ELDER ELDER PER 15 CARE CARE MINUTES DAY CARE S5100 KE DEMP[facility] [address] ADULT; ELDER ELDER PER 15 CARE CARE MINUTES HOME CARE S5108 KE [facility] TRAIN[facility] [address] [place] [address] ELDER ELDER CARE CARE CARE CLIENT PER 15 MIN HOME CARE S5108 KE [facility] TRA[facility] [address] [place] [address] ELDER ELDER CARE CARE CARE CLIENT PER 15 MIN DAY CARE S5100 KE DEMP[facility] [address] ADULT; ELDER ELDER PER 15 CARE CARE MINUTES HOME S5170 KE GON[facility]ALEZ 7 CO. ADULT CO. ADULT MEALS DAY DAY INCLUDING ELDER ELDER PREPARATI ON; PER MEAL RADIOLOGI 46073 [place] [facility] 7 MEDICAL EXAMINATI IMAGING ON CHEST ASS SINGLE VIEW FRONTAL RADIOLOGI 72972 [place] [facility] C EXAM 7 MEDICAL CHEST 2 IMAGING VIEWS ASS FRONTAL&L ATERAL RADIOLOGI 06554 [facility] C EXAM 7 PHYSICIAN CHEST 2 S, PLLC VIEWS FRONTAL&L ATERAL RADEX 54730 [place] [facility] SHOULDER 7 MEDICAL COMPLETE IMAGING MINIMUM [address] [place] [address] [place] [facility] HEAD/BRAI 7 MEDICAL N W/O IMAGING CONTRAST ASS MATERIAL RADEX HIP 54909 [place] [facility] 7 MEDICAL UNILATERA IMAGING L WITH ASS PELVIS 2-3 VIEWS HOME CARE S5108 KE [facility] [address] ELDER ELDER CARE CARE CARE CLIENT PER 15 MIN HOME S5170 KE GON[facility]ALEZ 7 CO. ADULT CO. ADULT MEALS DAY DAY INCLUDING ELDER ELDER PREPARATI ON; PER MEAL GROUND A0425 [facility] 7 AMBULANCE AMBULANCE PER SERVICE SERVICE STATUTE MILE AMBULANCE A0429 [facility] 7 AMBULANCE AMBULANCE BLS SERVICE SERVICE EMERGENCY TRANSPORT HOME S5170 KE GON[facility]ALE[facility] 7 CO. ADULT CO. ADULT MEALS DAY DAY INCLUDING ELDER ELDER PREPARATI ON; PER MEAL DAY CARE S5100 KE DEMP[facility] [address] ADULT; ELDER ELDER PER 15 CARE CARE MINUTES HOME CARE S5108 KE [facility] [address] ELDER ELDER CARE CARE CARE CLIENT PER 15 MIN HOME CARE S5108 KE DEMP[facility] [address] ELDER ELDER CARE CARE CARE CLIENT PER 15 MIN HOME S5170 KE [facility]Z 7 CO. ADULT CO. ADULT MEALS DAY DAY INCLUDING ELDER ELDER PREPARATI ON; PER MEAL HOME S5170 KE [facility] 7 CO. ADULT CO. ADULT MEALS DAY DAY INCLUDING ELDER ELDER PREPARATI ON; PER MEAL DAY CARE S5100 [facility] DEMP[facility] [address] ADULT; ELDER ELDER PER 15 CARE CARE MINUTES HOME CARE S5108 KE [facility] [address] ELDER ELDER CARE CARE CARE CLIENT PER 15 MIN HOME CARE S5108 KE DEM[facility] [address] ELDER ELDER CARE CARE CARE CLIENT PER 15 MIN SCREENING 65683 KE [facility] MAMMOGRAP INC INC HY BI 2-VIEW BREAST INC CAD SCREENING G0202 [place] [address] MEDICAL MAMMOGRAP IMAGING HY JULY ASS INCL CAD WHEN PERFORMD DAY CARE S5100 [facility] DEM[facility] [address] ADULT; ELDER ELDER PER 15 CARE CARE MINUTES HOME S5170 KE [facility] 7 CO. ADULT CO. ADULT MEALS DAY INCLUDING ELDER ELDER PREPARATI ON; PER MEAL HOME S5170 KE [facility] 7 CO. ADULT CO. ADULT MEALS DAY INCLUDING ELDER ELDER PREPARATI ON; PER MEAL DAY CARE S5100 KE KE [address] ADULT; ELDER ELDER PER 15 CARE CARE MINUTES HOME CARE S5108 KE [facility] TRAINING [address] [place] [address] ELDER ELDER CARE CARE CARE CLIENT PER 15 MIN HOME CARE S5108 KE DEM[facility] [address] ELDER ELDER CARE CARE CARE CLIENT PER 15 MIN DAY CARE S5100 [facility] [address] ADULT; ELDER ELDER PER 15 CARE CARE MINUTES HOME S5170 KE [facility] 7 CO. ADULT CO. ADULT MEALS DAY DAY INCLUDING ELDER ELDER PREPARATI ON; PER MEAL HOME S5170 KE [facility] 7 CO. ADULT CO. ADULT MEALS DAY DAY INCLUDING ELDER ELDER PREPARATI ON; PER MEAL DAY CARE S5100 [facility] [address] ADULT; ELDER ELDER PER 15 CARE CARE MINUTES HOME CARE S5108 KE [facility] [address] ELDER ELDER CARE CARE CARE CLIENT PER 15 MIN NONEMERG A0120 [facility] FEDER[facility] TRNSPRT: 7 MINI-BUS TRANSPORT TRANSPORT MTN ATION SER ATION SER [facility] HOME CARE S5108 KE [facility] TRAINING [address] [place] [address] HOME ELDER ELDER CARE CARE CARE CLIENT PER 15 MIN DAY CARE S5100 [facility] DEMP[facility] [address] ADULT; ELDER ELDER PER 15 CARE CARE MINUTES HOME S5170 KE [facility] 7 CO. ADULT CO. ADULT MEALS DAY DAY INCLUDING ELDER ELDER PREPARATI ON; PER MEAL HOME S5170 KE [facility] 7 CO. ADULT CO. ADULT MEALS DAY DAY INCLUDING ELDER ELDER PREPARATI ON; PER MEAL DAY CARE S5100 KE DEM[facility] [address] ADULT; ELDER ELDER PER 15 CARE CARE MINUTES HOME CARE S5108 KE [facility] TRAINING [address] [place] [address] ELDER ELDER CARE CARE CARE CLIENT PER 15 MIN HOME CARE S5108 KE [facility] TRAINING [address] [place] [address] ELDER ELDER CARE CARE CARE CLIENT PER 15 MIN DAY CARE S5100 KE DEMP[facility] [address] ADULT; ELDER ELDER PER 15 CARE CARE MINUTES HOME S5170 KE [facility] 7 CO. ADULT CO. ADULT MEALS DAY DAY INCLUDING ELDER ELDER PREPARATI ON; PER MEAL HOME S5170 KE [facility] 7 CO. ADULT CO. ADULT MEALS DAY DAY INCLUDING ELDER ELDER PREPARATI ON; PER MEAL HOME CARE S5108 KE [facility] TRAIN[facility] [address] [place] [address] ELDER ELDER CARE CARE CARE CLIENT PER 15 MIN HOME CARE S5108 KE DEM[facility] [address] ELDER ELDER CARE CARE CARE CLIENT PER 15 MIN HOME S5170 KE GONZALEZ 7 CO. ADULT CO. ADULT MEALS DAY DAY INCLUDING ELDER ELDER PREPARATI ON; PER MEAL DAY CARE S5100 KE DEMP[facility] [address] ADULT; ELDER ELDER PER 15 CARE CARE MINUTES DAY CARE S5100 [facility] [address] ADULT; ELDER ELDER PER 15 CARE CARE MINUTES HOME S5170 KE [facility] 7 CO. ADULT CO. ADULT MEALS DAY DAY INCLUDING ELDER ELDER PREPARATI ON; PER MEAL HOME CARE S5108 KE DEM[facility] [address] ELDER ELDER CARE CARE CARE CLIENT PER 15 MIN HOME CARE S5108 KE [facility] TRAINING 7 [facility] ELDER ELDER CARE CARE CARE CLIENT PER 15 MIN HOME S5170 KE GONZALEZ 7 CO. ADULT CO. ADULT MEALS DAY DAY INCLUDING ELDER ELDER PREPARATI ON; PER MEAL DAY CARE S5100 [facility] [address] [place] [address] ADULT; ELDER ELDER PER 15 CARE CARE MINUTES DAY CARE S5100 [facility] [address] [place] [address] ADULT; ELDER ELDER PER 15 CARE CARE MINUTES HOME CARE S5108 KE [facility] TRAINING 7 [facility] ELDER ELDER CARE CARE CARE CLIENT PER 15 MIN HOME CARE S5108 KE [facility] TRAINING 7 [facility] ELDER ELDER CARE CARE CARE CLIENT PER 15 MIN DAY CARE S5100 [facility] [address] [place] [address] ADULT; ELDER ELDER PER 15 CARE CARE MINUTES DAY CARE S5100 [facility] [address] [place] [address] ADULT; ELDER ELDER PER 15 CARE CARE MINUTES HOME CARE S5108 KE [facility] TRAINING [address] [place] [address] ELDER ELDER CARE CARE CARE CLIENT PER 15 MIN DAY CARE S5100 [facility] [address] [place] [address] ADULT; ELDER ELDER PER 15 CARE CARE MINUTES HOME CARE S5108 KE [facility] TRAINING [address] [place] [address] ELDER ELDER CARE CARE CARE CLIENT PER 15 MIN DAY CARE S5100 [facility] [address] [place] [address] ADULT; ELDER ELDER PER 15 CARE CARE MINUTES HOME CARE S5108 KE [facility] TRAINING [address] [place] [address] ELDER ELDER CARE CARE CARE CLIENT PER 15 MIN HOME CARE S5108 KE [facility] TRAINING [address] [place] [address] ELDER ELDER CARE CARE CARE CLIENT PER 15 MIN DAY CARE S5100 [facility] [address] [place] [address] ADULT; ELDER ELDER PER 15 CARE CARE MINUTES DAY CARE S5100 [facility] [address] [place] [address] ADULT; ELDER ELDER PER 15 CARE CARE MINUTES HOME CARE S5108 KE [facility] TRAINING [address] [place] [address] ELDER ELDER CARE CARE CARE CLIENT PER 15 MIN HOME CARE S5108 KE [facility] TRAINING [address] [place] [address] ELDER ELDER CARE CARE CARE CLIENT PER 15 MIN DAY CARE S5100 [facility] [address] [place] [address] ADULT; ELDER ELDER PER 15 CARE CARE MINUTES DAY CARE S5100 [facility] [address] [place] [address] ADULT; ELDER ELDER PER 15 CARE CARE MINUTES HOME CARE S5108 KE [facility] TRAINING 7 [facility] ELDER ELDER CARE CARE CARE CLIENT PER 15 MIN HOME CARE S5108 KE [facility] TRAINING [address] [place] [address] ELDER ELDER CARE CARE CARE CLIENT PER 15 MIN DAY CARE S5100 [facility] [address] [place] [address] ADULT; ELDER ELDER PER 15 CARE CARE MINUTES DAY CARE S5100 [facility] [address] [place] [address] ADULT; ELDER ELDER PER 15 CARE CARE MINUTES HOME CARE S5108 KE [facility] TRAINING 7 [facility] ELDER ELDER CARE CARE CARE CLIENT PER 15 MIN HOME CARE S5108 KE [facility] TRAINING [address] [place] [address] ELDER ELDER CARE CARE CARE CLIENT PER 15 MIN DAY CARE S5100 [facility] [address] [place] [address] ADULT; ELDER ELDER PER 15 CARE CARE MINUTES DAY CARE S5100 [facility] [address] [place] [address] ADULT; ELDER ELDER PER 15 CARE CARE MINUTES HOME CARE S5108 KE [facility] TRAINING [address] [place] [address] ELDER ELDER CARE CARE CARE CLIENT PER 15 MIN OPHTH [address] [place] [address] [facility] COMPRHNSV ESTAB PT 1/> HOME CARE S5108 KE [facility] TRA[facility]ING [address] [place] [address] ELDER ELDER CARE CARE CARE CLIENT PER 15 MIN DAY CARE S5100 [facility] [address] [place] [address] ADULT; ELDER ELDER PER 15 [place] [address] KE KE STREPTOCO 7 [facility] [place] [address] KE KE INFUSION 7 [facility] THERAPY/P INC INC ROPHYLAXI S /DX 1ST TO 1 HR CUL BACT 22055 KE KE XCPT 7 [facility] URINE INC INC BLOOD/STO OL AEROBIC ISOL BLOOD 21062 KE KE COUNT 7 [facility] COMPLETE INC INC AUTO&[place] [address] KE KE INFUSION 7 [facility] THERAPY INC INC PROPHYLAX IS/DX EA HOUR RADIOLOGI 19957 [facility] [place] 7 MEDICAL EXAMINATI IMAGING ON CHEST ASS SINGLE VIEW FRONTAL GROUND A0425 [facility] AMBULANCE AMBULANCE PER SERVICE SERVICE STATUTE MILE AMBULANCE A0429 [facility] SERVICE 7 AMBULANCE AMBULANCE B[place] [address] KE KE INFUSION 7 [facility] THER INC INC PROPH ADDL SEQUENTIA L TO 1 HR COMPREHEN 03617 KE [facility] SIVE 7 [facility] METABOLIC INC INC PANEL NONEMERG A0120 FED[facility]ATED FEDERATED TRNSPRT: 7 MINI-BUS TRANSPORT TRANSPORT MTN [facility]/OT SYS DAY CARE S5100 [facility] DEM[facility] [address] ADULT; ELDER ELDER PER 15 CARE [...] PREPARATI ON; PER MEAL DAY CARE S[address] ADULT; ELDER ELDER PER 15 CARE CARE MINUTES NONEMERG A0120 FED[facility]ATED FEDERATED TRNSPRT: 7 MINI-BUS TRANSPORT TRANSPORT [facility]/OT SYS DAY CARE S[address] ADULT; ELDER ELDER PER 15 CARE [...] PREPARATI ON; PER MEAL DAY CARE S[address] ADULT; ELDER ELDER PER 15 CARE [...] PREPARATI ON; PER MEAL DAY CARE S[address] ADULT; ELDER ELDER PER 15 CARE CARE MINUTES DAY CARE S[address] ADULT; ELDER ELDER PER 15 CARE CARE MINUTES HOME S5170 [facility] ADULT CO. ADULT MEALS DAY [...] INCLUDING ELDER ELDER PREPARATI ON; PER MEAL THERAPEUT 37698 KE DEMP[facility] IC PX 1/> 7 [facility] AREAS INC INC EACH 15 MIN EXERCISES DAY CARE S[address] ADULT; ELDER ELDER PER 15 CARE CARE MINUTES APPLICATI 33630 KE [facility] ON 7 [facility] MODALITY INC INC 1/> AREAS HOT/COLD PACKS APPL 09292 KE [facility] MODALITY 7 [facility] 1/> AREAS INC INC ULTRASOUN D EA 15 MIN APPL 75591 KE [facility] MODALITY 7 [facility] 1/> AREAS INC INC ELEC STIMJ UNATTENDE D DAY CARE S5100 [facility] [address] [place] [address] ADULT; ELDER ELDER PER 15 CARE CARE MINUTES THERAPEUT 54067 KE DEMPSEY IC PX 1/> 7 [facility] AREAS INC INC EACH 15 MIN EXERCISES APPL 84756 KE DEM[facility] MODALITY 7 [facility] 1/> AREAS INC INC ULTRASOUN D EA 15 MIN APPLICATI 28616 KE [facility] ON 7 [facility] MODALITY INC INC 1/> AREAS HOT/COLD PACKS NONEMERG A0120 [facility] FEDERATED TRNSPRT: 7 MINI-BUS TRANSPORT TRANSPORT MTN ATION SER ATION SER [facility]/OT SYS APPL 15079 KE [facility] MODALITY 7 [facility] 1/> AREAS INC INC ELEC STIMJ UNATTENDE D HOME S5170 KE GONZ[facility]Z 7 CO. ADULT CO. ADULT MEALS DAY DAY INCLUDING ELDER ELDER PREPARATI ON; PER MEAL DAY CARE S5100 [facility] DEM[facility] [address] ADULT; ELDER ELDER PER 15 CARE CARE MINUTES PHYSICAL 57718 KE [facility] THERAPY 7 [facility] EVALUATIO INC INC N MOD COMPLEX 30 MINS DAY CARE S5100 KE DEMP[facility] [address] ADULT; ELDER ELDER PER 15 CARE CARE MINUTES HOME S5170 KE GON[facility]Z 7 CO. ADULT CO. ADULT MEALS DAY DAY INCLUDING ELDER ELDER PREPARATI ON; PER MEAL NONEMERG A0120 FEDERATED FEDERATED TRNSPRT: 7 MINI-BUS TRANSPORT TRANSPORT MTN ATION SER ATION SER [facility]/OT SYS DAY CARE S5100 KE DEMP[facility] [address] ADULT; ELDER ELDER PER 15 CARE CARE MINUTES DAY CARE S5100 [facility] [address] ADULT; ELDER ELDER PER 15 CARE CARE MINUTES DRUG 35084 LAB OTIS LAB OTIS SCREEN 7 YFN YFN [employer]INGS SWAPNIL LEVETIRAC ETAM NONEMERG A0120 FEDERATED FEDERATED TRNSPRT: 7 MINI-BUS TRANSPORT TRANSPORT MTN ATION SER ATION SER ARE[place] [address] COMBINED COMBINED FREE 7 PHYSICIAN PHYSIC[place] [address] COMBINED COMBINED THYROID 7 PHYSICIAN PHYSICIAN STIMULATI S LA S LA NG HORMONE TSH LIPID 77844 COMBINED COMBINED PANEL 7 PHYSICIAN PHYSICIAN S LA S LA BLOOD 48322 COMBINED COMBINED COUNT 7 PHYSICIAN PHYSICIAN COMPLETE S LA S LA AUTO&AUTO DIFRNTL WBC COMPREHEN 17330 COMBINED COMBINED SIVE 7 PHYSICIAN PHYSICIAN METABOLIC S LA S LA PANEL THERAPEUT 40230 [facility] IC 7 PHYSICIAN PROPHYLAC S GROUP TIC/DX INJECTION SUBQ/IM INJECTION J1100 [facility] 7 PHYSICIAN DEXAMETHO S GROUP SONE SODIUM PHOSPHATE 1 MG INJECTION J0696 [facility] 7 PHYSICIAN CEFTRIAXO S GROUP NE SODIUM PER 250 MG FOR DIAB A5512 [facility] MX 7 MEDICAL MEDICAL DNSITY SUPPLY SUPPLY [employer] FORMD PRFAB EA DIAB ONLY A5500 [facility] FIT CSTM 7 MEDICAL MEDICAL PREP&SPL SUPPLY SUPPLY [employer] LLC DNSITY INSRT SBSQ 64137 [facility] 7 FACILITY CARE/DAY E/M STABLE 10 MIN NONEMERG A0120 FEDERATED FEDERATED TRNSPRT: 7 MINI-BUS TRANSPORT TRANSPORT MTN ATION SER ATION SER AREA/OT SYS DRUG 78546 LAB OTIS LAB OTIS SCREEN 7 [facility] YFN [employer] SWAPNIL LEVETIRAC ETAM NONEMERG A0120 FEDERATED FEDERATED TRNSPRT: 7 MINI-BUS TRANSPORT TRANSPORT MTN ATION SER ATION SER AREA/OT SYS SBSQ 86188 [facility] NURSING 7 FACILITY CARE/DAY E/M STABLE 10 MIN NONEMERG A0120 FEDERATED FEDERATED TRNSPRT: 7 MINI-BUS TRANSPORT TRANSPORT MTN ATION SER ATION SER AREA/OTH SYS NONEMERG A0120 FEDERATED FEDERATED TRNSPRT: 7 MINI-BUS TRANSPORT TRANSPORT MTN ATION SER ATION SER AREA/OTH SYS DRUG 07541 LAB OTIS LAB OTIS SCREEN 7 YFN YFN [employer] SW[employer] LEVETIRAC ETAM NONEMERG A0120 FEDERATED FEDERATED TRNSPRT: 7 MINI-BUS TRANSPORT [facility] ANNUAL 7 NURSING FACILITY ASSESS STABLE 30 MIN DRUG 27935 COMBINED COMBINED SCREEN 7 PHYSICIAN PHYSICIAN QUANTITAT S LA S LA SWAPNIL PHENYTOIN TOTAL NONEMERG A0120 FEDERATED FEDERATED TRNSPRT: 7 MINI-BUS TRANSPORT TRANSPORT [facility] NONEMERG A0120 FEDERATED FEDERATED TRNSPRT: 7 MINI-BUS TRANSPORT TRANSPORT MTN ATION SER ATPENDING SALE TO [facility] SER AREA/OTH SYS GROUND A0425 [facility] 7 AMBULANCE AMBULANCE PER SERVICE SERVICE STATUTE MILE AMBULANCE A0429 [facility] SERVICE 7 AMBULANCE AMBULANCE BLS SERVICE SERVICE EMERGENCY TRANSPORT RADEX HIP 37958 [facility] 7 MEDICAL UNILATERA IMAGING L WITH ASS PELVIS 2-3 VIEWS RADIOLOGI 77461 [facility] 7 MEDICAL EXAMINATI IMAGING ON KNEE 3 ASS VIEWS RADEX 98530 [facility] SPINE 7 MEDICAL LUMBOSACR IMAGING AL 2/3 ASS VIEWS DRUG 87570 LAB OTIS LAB OTIS SCREEN 7 YFN YFN [employer] SWAP[employer]IL LEVETIRAC ETAM DRUG 66579 COMBINED COMBINED SCREEN 7 PHYSICIAN PHYSICIAN QUANTITAT S LA S LA SWAPNIL PHENYTOIN TOTAL RADIOLOGI 21239 [place] [facility] 6 MEDICAL EXAMINATI IMAGING ON CHEST ASS SINGLE VIEW FRONTAL AMBULANCE A0429 [facility] SERVICE 6 AMBULANCE AMBULANCE BLS SERVICE SERVICE EMERGENCY TRANSPORT GROUND A0425 [facility] 6 AMBULANCE AMBULANCE PER SERVICE SERVICE STATUTE MILE DRUG 09337 COMBINED COMBINED SCREEN 6 PHYSICIAN PHYSICIAN QUANTITAT S LA S LA SWAPNIL PHENYTOIN TOTAL SBSQ 48119 [facility] 6 FACILITY CARE/DAY E/M STABLE 10 MIN NONEMERG A0120 [facility] FEDERATED TRNSPRT: 6 MINI-BUS TRANSPORT TRANSPORT MTN ATION SER ATION SER AREA/OTH SYS NONEMERG A0120 FEDERATED FEDERATED TRNSPRT: 6 MINI-BUS TRANSPORT TRANSPORT MTN ATION SER ATPENDING SALE TO [facility] SER AREA/OTH SYS GROUND A0425 [facility] MILEAGE 6 AMBULANCE AMBULANCE PER SERVICE SERVICE STATUTE MILE AMBULANCE A0429 [facility] SERVICE 6 AMBULANCE AMBULANCE BLS SERVICE SERVICE EMERGENCY TRANSPORT DRUG 04757 COMBINED COMBINED SCREEN 6 PHYSICIAN PHYSICIAN QUANTITAT S LA S LA SWAPNIL PHENYTOIN TOTAL DRUG 99117 LAB OTIS LAB OTIS SCREEN 6 YFN YFN [employer] SWAPNIL LEVETIRAC ETAM NONEMERG A0120 FEDERATED FEDERATED TRNSPRT: 6 MINI-BUS TRANSPORT TRANSPORT MTN ATION SER ATPENDING SALE TO [facility] SER AREA/OTH SYS SBSQ 28077 [facility] 6 [facility] FACILITY CARE/DAY E/M STABLE 10 MIN NONEMERG A0120 FEDERATED FEDERATED TRNSPRT: 6 MINI-BUS TRANSPORT TRANSPORT MTN ATION SER ATION SER AREA/OTH SYS DRUG 77551 COMBINED COMBINED SCREEN 6 PHYSICIAN PHYSICIAN QUANTITAT S LA S LA SWAPNIL PHENYTOIN TOTAL GROUND A0425 [facility] 6 AMBULANCE AMBULANCE PER SERVICE SERVICE STATUTE MILE AMBULANCE A0429 [facility] SERVICE 6 AMBULANCE AMBULANCE BLS SERVICE SERVICE EMERGENCY TRANSPORT DRUG 66015 LAB OTIS LAB OTIS SCREEN 6 YFN YFN [employer] SWAPNIL LEVETIRAC ETAM AMBULANCE A0429 [facility] SERVICE 6 AMBULANCE AMBULANCE BLS SERVICE SERVICE EMERGENCY TRANSPORT GROUND A0425 [facility] MILEAGE 6 AMBULANCE AMBULANCE PER SERVICE SERVICE STATUTE MILE RADEX 51435 [facility] ALL WRIST 6 MEDICAL COMPLETE IMAGING MINIMUM 3 ASS VIEWS GLUC BLD 64033 KE TRIANA MNTR 6 [facility] DEV INC INC CLEARED FDA SPEC HOME USE SBSQ 25022 [facility]OLD NURSING 6 [facility] FACILITY CARE/DAY E/M STABLE 10 MIN GROUND A0425 [facility] MILEAGE 6 AMBULANCE AMBULANCE PER SERVICE SERVICE STATUTE MILE AMBULANCE A0429 [facility] SERVICE 6 AMBULANCE AMBULANCE BLS SERVICE SERVICE EMERGENCY TRANSPORT DRUG 22096 COMBINED COMBINED SCREEN 6 PHYSICIAN PHYSICIAN QUANTITAT S LA S LA SWAPNIL PHENYTOIN TOTAL AMB A0427 [facility] SERVICE 6 AMBULANCE AMBULANCE ALS SERVICE SERVICE EMERGENCY TRANSPORT LEVEL 1 ECG 38753 KE TILLMAN JR ROUTINE 6 [facility] W/LEAST P 12 LDS I&R ONLY RADIOLOGI 69714 SRINATH CHEUNG ALL C 6 MEDICAL EXAMINATI IMAGING ON CHEST ASS SINGLE VIEW FRONTAL GROUND A0425 [facility] MILEAGE 6 AMBULANCE AMBULANCE PER SERVICE SERVICE STATUTE MILE GROUND A0425 [facility] MILEAGE 6 AMBULANCE AMBULANCE PER SERVICE SERVICE STATUTE MILE AMB A0427 [facility] SERVICE 6 AMBULANCE AMBULANCE ALS SERVICE SERVICE EMERGENCY TRANSPORT LEVEL 1 DRUG 41967 COMBINED COMBINED SCREEN 6 PHYSICIAN PHYSICIAN QUANTITAT S LA S LA SWAPNIL PHENYTOIN TOTAL SBSQ 88108 RICKIE DAMIAN NURSING 6 [facility] FACILITY CARE/DAY E/M STABLE 10 MIN DRUG 50506 COMBINED COMBINED SCREEN 6 PHYSICIAN PHYSICIAN QUANTITAT S LA S LA SWAPNIL PHENYTOIN TOTAL DRUG 16562 LAB OTIS LAB OTIS SCREEN 6 YFN YFN QUANTITAT HOLDINGS HOLDINGS SWAPNIL LEVETIRAC ETAM GROUND A0425 [facility] MILEAGE 6 AMBULANCE AMBULANCE PER SERVICE SERVICE STATUTE MILE AMBULANCE A0429 [facility] SERVICE 6 AMBULANCE AMBULANCE BLS SERVICE SERVICE EMERGENCY TRANSPORT AMBULANCE A0429 [facility] SERVICE 6 AMBULANCE AMBULANCE BLS SERVICE SERVICE EMERGENCY TRANSPORT GROUND A0425 [facility] MILEAGE 6 AMBULANCE AMBULANCE PER SERVICE SERVICE STATUTE MILE NONEMERG A0120 FEDERATED FEDERATED TRNSPRT: 6 MINI-[facility] TRANSPORT TRANSPORT MTN ATION SER ATION SER AREA/OTH SYS DRUG 95792 LAB OTSI LAB OTIS SCREEN 6 YFN YFN QUANTITAT HOLDINGS HOLDINGS SWAPNIL LEVETIRAC ETAM COMPREHEN 13665 KE DEMPSEY SIVE 6 [facility] [place] [address] [place] [facility] ALL CERVICAL 6 MEDICAL SPINE W/O IMAGING CONTRAST ASS MATERIAL GROUND A0425 [facility] MILEAGE 6 AMBULANCE AMBULANCE PER SERVICE SERVICE STATUTE MILE DRUG 21351 KE DEMPSEY SCREEN 6 [facility] QUANTITAT INC INC SWAPNIL PHENYTOIN TOTAL COLLECTIO 83911 KE KE N VENOUS 6 [facility] BLOOD INC INC VENIPUNCT URE AMB A0427 [facility] SERVICE 6 AMBULANCE AMBULANCE ALS SERVICE SERVICE [place] [address] [facility] KE HEAD/BRAI 6 [facility] N W/O INC INC CONTRAST MATERIAL BLOOD 61987 KE DEMPSEY COUNT 6 [facility] COMPLETE INC INC AUTO&AUTO DIFRNTL WBC GROUND A0425 [facility] MILEAGE 6 AMBULANCE AMBULANCE PER SERVICE SERVICE STATUTE MILE AMBULANCE A0429 [facility] [facility] AMBULANCE AMBULANCE BLS SERVICE SERVICE EMERGENCY TRANSPORT AMBULANCE A0429 [facility] SERVICE 6 AMBULANCE AMBULANCE BLS SERVICE SERVICE EMERGENCY TRANSPORT GROUND A0425 [facility] MILEAGE 6 AMBULANCE AMBULANCE PER SERVICE SERVICE STATUTE MILE SIMPLE 46684 [facility] REPAIR 6 PHYSICIAN U BEN SCALP/NEC S, PLLC K/AX/TEJINDER T/TRUNK 2.5CM/< SCREENING [id number] [place] DONNELL 6 MEDICAL FIDEL MAMMOGRAP IMAGING HY JULY ASS INCL CAD WHEN PERFORMD 54656 [place] AIDED 6 MEDICAL FIDEL DETECTION IMAGING ASS SCREENING MAMMOGRAP HY NONEMERG A0120 [facility] TRNSPRT: 6 MINI-BUS TRANSPORT TRANSPORT MTN ATION SER ATION SER AREA/OTH SYS DRUG 05085 LAB OTIS LAB OTIS SCREEN 6 YFN YFN QUANTITAT HOLD[place] [address] [facility] CERVICAL 6 MEDICAL SPINE W/O IMAGING CONTRAST ASS MATERIAL GROUND A0425 [facility] MILEAGE 6 AMBULANCE AMBULANCE PER SERVICE SERVICE STATUTE MILE AMBULANCE A0429 [facility] SERVICE 6 AMBULANCE AMBULANCE BLS SERVICE SERVICE EMERGENCY TRANSPORT CT LUMBAR [address] [place] CHEUN[place] ALL SPINE 6 MEDICAL W/[place] [address] [place] CHE[place] ALL HEAD/BRAI 6 MEDICAL N W/O IMAGING CONTRAST ASS MATERIAL RADIOLOGI 77199 [place] CHEUN[place] ALL C 6 MEDICAL EXAMINATI IMAGING ON TIBIA ASS & FIBULA 2 VIEWS NONEMERG A0120 [facility] FEDERATED TRNSPRT: 6 MINI-BUS TRANSPORT TRANSPORT [facility] NONEMERG A0120 FEDERATED FEDERATED TRNSPRT: 6 MINI-BUS TRANSPORT TRANSPORT [facility] GROUND A0425 [facility] MILEAGE 6 AMBULANCE [...] AMBULANCE [place] [address] [facility] HEAD/BRAI 6 MEDICAL FIDEL N W/O IMAGING CONTRAST ASS MATERIAL AMB A0427 [facility] 6 AMBULANCE AMBULANCE ALS SERVICE SERVICE EMERGENCY TRANSPORT LEVEL 1 NONEMERG A0120 FEDERATED FEDERATED TRNSPRT: 6 MINI-BUS TRANSPORT TRANSPORT [facility] GROUND A0425 [facility] MILEAGE 6 AMBULANCE AMBULANCE PER SERVICE SERVICE STATUTE MILE AMB A0427 [facility] 6 AMBULANCE AMBULANCE ALS SERVICE SERVICE EMERGENCY TRANSPORT LEVEL 1 AMB A0427 [facility] SERVICE 6 AMBULANCE AMBULANCE ALS SERVICE SERVICE EMERGENCY TRANSPORT LEVEL 1 RADIOLOGI 64554 [facility] C 6 [facility] EXAMINATI INC INC ON PELVIS 1/2 VIEWS GROUND A0425 [facility] MILEAGE 6 AMBULANCE AMBULANCE PER SERVICE SERVICE STATUTE MILE RADEX 86924 [facility] SPINE 6 [facility] LUMBOSACR INC INC AL MINIMUM 4 VIEWS GROUND A0425 [facility]LE[facility] 6 AMBULANCE AMBULANCE PER SERVICE SERVICE STATUTE MILE AMBULANCE A0429 [facility] SERVICE 6 AMBULANCE AMBULANCE BLS SERVICE SERVICE EMERGENCY TRANSPORT [facility] A0120 FEDERATED FEDERATED TRNSPRT: 6 MINI-BUS TRANSPORT TRANSPORT [facility] GROUND A0425 [facility] MILEAGE 6 AMBULANCE AMBULANCE PER SERVICE SERVICE STATUTE MILE [facility] A0427 [facility] SERVICE 6 AMBULANCE AMBULANCE ALS SERVICE SERVICE EMERGENCY TRANSPORT LEVEL 1 [facility] A0120 FEDERATED FEDERATED TRNSPRT: 6 MINI-BUS TRANSPORT TRANSPORT [facility] DRUG 54686 LAB OTIS LAB OTIS SCREEN 6 YFN YFN QUANTITAT HOLDINGS HOLDINGS SWAPNIL LEVETIRAC ETAM [facility] A0120 FEDERATED FEDERATED TRNSPRT: 6 MINI-BUS TRANSPORT TRANSPORT [facility] GROUND A0425 [facility] 6 AMBULANCE AMBULANCE PER SERVICE SERVICE STATUTE MILE AMB A0427 [facility] SERVICE 6 AMBULANCE AMBULANCE ALS SERVICE SERVICE EMERGENCY TRANSPORT LEVEL 1 AMB A0427 [facility] SERVICE 6 AMBULANCE AMBULANCE ALS SERVICE SERVICE EMERGENCY TRANSPORT LEVEL 1 GROUND A0425 [facility] MILEAGE 6 AMBULANCE AMBULANCE PER SERVICE SERVICE STATUTE MILE GROUND A0425 [facility] MI[facility] 6 MEDICAL MEDICAL PER RESPONSE RESPONSE STATUTE MILE AMB A0422 [facility] OXYGEN&O2 6 MEDICAL MEDICAL SUPPLIES RESPONSE RESPONSE LIFE SUSTAININ G SITUATION ELECTROEN 97609 [place] BRIANNA CEPHALOGR 6 MEDICAL [place] AM W/REC SERV AWAKE&CARLIE FOUNDATIO WSY N AMB A0427 [facility] 6 AMBULANCE AMBULANCE ALS SERVICE SERVICE EMERGENCY TRANSPORT LEVEL 1 RADIOLOGI 06317 [place] CHENUG ALL C 6 MEDICAL EXAMINATI IMAGING ON KNEE ASS 1/2 VIEWS GROUND A0425 [facility] MI[facility] 6 AMBULANCE AMBULANCE PER SERVICE SERVICE STATUTE MILE AMBULANCE A0429 [facility] 6 AMBULANCE AMBULANCE BLS SERVICE SERVICE EMERGENCY TRANSPORT NONEMERG A0120 FEDERATED FEDERATED TRNSPRT: 6 MINI-BUS TRANSPORT TRANSPORT MTN ATION SER ATION SER AREA/OTH SYS GROUND A0425 [facility] MILE[facility] 6 AMBULANCE AMBULANCE PER SERVICE SERVICE STATUTE MILE AMBULANCE A0429 [facility] 6 AMBULANCE AMBULANCE BLS [place] [address] [facility] HEAD/BRAI 6 [facility] N W/[place] [address] KE [facility] CERVICAL 6 [facility] SPINE W/O INC INC CONTRAST MATERIAL [...] SERVICE SERVICE [place] [address] [place] [address] [place] CHE[place] ALL HEAD/BRAI 6 MEDICAL N W/O IMAGING CONTRAST ASS MATERIAL RADIOLOGI 16439 [place] CHE[place] ALL C 6 MEDICAL EXAMINATI IMAGING ON CHEST ASS SINGLE VIEW FRONTAL AMBULANCE A0429 [facility] 6 AMBULANCE AMBULANCE BLS SERVICE SERVICE EMERGENCY TRANSPORT GROUND A0425 [facility] MILE[facility] 6 AMBULANCE AMBULANCE PER SERVICE SERVICE STATUTE MILE GROUND A0425 [facility] 6 AMBULANCE AMBULANCE PER SERVICE SERVICE STATUTE [facility] [address]239 [facility] MEDICAL EXAMINATI IMAGING [place] [address] [facility] HEAD/BRAI 6 [facility] N W/O INC INC CONTRAST MATERIAL AMB A0427 [facility] SERVICE 6 AMBULANCE AMBULANCE ALS SERVICE SERVICE EMERGENCY TRANSPORT LEVEL 1 NONEMERG A0120 FEDERATED FEDERATED TRNSPRT: 6 MINI-BUS TRANSPORT TRANSPORT [facility]/OT SYS GROUND A0425 [facility] MILEAGE 6 AMBULANCE AMBULANCE PER SERVICE SERVICE STATUTE MILE AMB A0427 [facility] SERVICE 6 AMBULANCE AMBULANCE ALS SERVICE SERVICE [place] [address] [place] HEAD/BRAI 6 [facility] N W/[place] [address] [facility] CERVICAL 6 [facility] SPINE W/O INC INC CONTRAST MATERIAL NONEMERG A0120 FEDERATED FEDERATED TRNSPRT: 6 MINI-BUS TRANSPORT TRANSPORT [facility]/OT SYS BLOOD 79303 [facility] COUNT 6 [facility] COMPLETE INC INC AUTO&AUTO DIFRNTL WBC QUANTITAT 05359 [facility] ION DRUG 6 [facility] NOT INC INC ELSEWHERE SPECIFIED DRUG 46551 [facility] SCREEN 6 [facility] QUANTITAT INC INC SWAPNIL PHENYTOIN TOTAL URNLS DIP 80036 [facility] 6 [facility] STICK/TAB INC INC LET REAGENT AUTO MICROSCOP Y DRUG 33246 [facility] SCREEN 6 [facility] QUANTITAT INC INC SWAPNIL PHENYTOIN TOTAL COLLECTIO 61931 COMBINED COMBINED N VENOUS 6 PHYSICIAN PHYSICIAN BLOOD S LA S LA VENIPUNCT URE BLOOD 53570 [facility] COUNT 6 [facility] COMPLETE INC INC AUTO&[place] [address] [facility] HEAD/BRAI 6 [facility] N W/O INC INC CONTRAST MATERIAL COMPREHEN 72455 [facility] SIVE 6 [facility] METABOLIC INC INC PANEL ELECTROEN 08675 [facility] CEPHALOGR 6 N N AM EXTEND COMMUNTIY COMMUNTIY HOSPITA HOSPITA MONITORIN G 41-60 MIN ELECTROEN 65724 REJI HERRERA CEPHALOGR 6 N AM W/REC NEUROLOGY AWAKE&ASL EEP NONEMERG A0120 FEDERATED FEDERATED TRNSPRT: 6 MINI-BUS TRANSPORT TRANSPORT MTN ATPSYCHIATRIC/OT SYS DRUG 25091 [facility] SCREEN 6 [facility] QUANTITAT INC INC SWAPNIL PHENYTOIN TOTAL DRUG 42582 [facility] SCREEN 6 [facility] QUANTITAT INC INC SWAPNIL PHENYTOIN TOTAL RADIOLOGI 41079 [facility] C 6 [facility] EXAMINATI INC [place] [address] [facility] HEAD/BRAI 6 [facility] N W/O INC INC CONTRAST MATERIAL BLOOD 77759 [facility] COUNT 6 [facility] COMPLETE INC INC AUTO&AUTO DIFRNTL WBC COMPREHEN 30786 [facility] SIVE 6 [facility] METABOLIC INC INC PANEL NONEMERG A0120 FEDERATED FEDERATED TRNSPRT: 5 MINI-BUS TRANSPORT TRANSPORT MTN ATPSYCHIATRIC/[facility] SYS CONTINUOU E0601 ZULEYMA AMOR S 5 HOME HOME POSITIVE MEDICAL MEDICAL AIRWAY EQUIPME EQUIPME PRESSURE DEVICE NONEMERG A0120 FEDERATED FEDERATED TRNSPRT: 5 MINI-BUS TRANSPORT TRANSPORT MTN [facility] SYS BLOOD 48765 [facility] COUNT 5 [facility] COMPLETE INC INC AUTO&AUTO DIFRNTL WBC GLUC BLD 30288 [facility] GLUC MNTR 5 [facility] DEV INC INC CLEARED FDA SPEC HOME USE GLUCOSE 38798 [facility] QUANTITAT 5 [facility]OS[facility] SWAPNIL BLOOD INC INC XCPT REAGENT STRIP URNLS DIP 99706 [facility] 5 [facility] STICK/TAB INC INC LET REAGENT AUTO MICROSCOP Y DRUG 01153 [facility] SCREEN 5 [facility] QUANTITAT INC INC SWAPNIL PHENYTOIN TOTAL COMPREHEN 61127 [facility] SIVE 5 [facility]OS[facility] METABOLIC INC INC PANEL COMPREHEN 92246 [facility] SIVE 5 N N METABOLIC COMMUNTIY COMMUNTIY PANEL HOSPITA HOSPITA COLLECTIO 98108 [facility] N VENOUS 5 N N BLOOD COMMUNTIY COMMUNTIY VENIPUNCT HOSPITA HOSPITA URE DRUG 50670 [facility] SCREEN 5 N N QUANTITAT COMMUNTIY COMMUNTIY SWAPNIL HOSPITA HOSPITA PHENYTOIN TOTAL BLOOD 69048 [facility] COUNT 5 N N COMPLETE COMMUNTIY COMMUNTIY AUTO&AUTO HOSPITA HOSPITA DIFRNTL WBC NONEMERG A0120 FEDERATED FEDERATED TRNSPRT: 5 MINI-BUS TRANSPORT TRANSPORT MTN ATPENDING S[facility] TO [facility] AREA/OTH SYS NONEMERG A0120 FEDERATED FEDERATED TRNSPRT: 5 MINI-BUS TRANSPORT TRANSPORT MTN [facility]/OTH SYS GLUC BLD 69598 [facility] GLUC MNTR 5 [facility] DEV INC [place] [address] [facility] INFUSION 5 [facility] THERAPY/P INC INC ROPHYLAXI S /DX 1ST TO 1 [place] [address] [facility] INFUSION 5 [facility] THERAPY INC INC PROPHYLAX IS/DX EA HOUR COLONOSCO 48116 [facility] PY FLX DX 5 [facility] W/COLLJ INC INC SPEC WHEN PFRMD CONTINUOU E0601 ZULEYMA AMOR S 5 HOME HOME POSITIVE MEDICAL MEDICAL AIRWAY EQUIPME EQUIPME PRESSURE DEVICE DRUG 09886 COMBINED COMBINED SCREEN 5 PHYSICIAN PHYSICIAN QUANTITAT S LA S LA SWAPNIL PHENYTOIN TOTAL COLLECTIO 73629 COMBINED COMBINED N VENOUS 5 PHYSICIAN PHYSICIAN BLOOD S LA S LA VENIPUNCT URE DRUG 82217 [facility] SCREEN 5 [facility] QUANTITAT [place] [address] [facility] [place] INFUSION 5 [facility] THERAPY/P INC INC ROPHYLAXI S /DX 1ST TO 1 HR BLOOD 32035 [facility] COUNT 5 [facility] COMPLETE INC INC AUTO&AUTO DIFRNTL WBC COMPREHEN 47195 [facility] SIVE 5 [facility] METABOLIC INC INC PANEL NONEMERG A0120 FEDERATED FEDERATED TRNSPRT: 5 MINI-BUS TRANSPORT TRANSPORT MTN ATION SER ATION SER AREA/OTH SYS TUBING A7037 ZULEYMA BERNARDORELL USED WITH 5 HOME HOME POSITIVE MEDICAL MEDICAL AIRWAY EQUIPME EQUIPME PRESSURE DEVICE HUMDIFIR E0562 ZULEYMA ZULEYMA HEATED 5 HOME HOME USED MEDICAL MEDICAL W/POS EQUIPME EQUIPME ARWAY PRESSURE DEVICE HEADGEAR A7035 ZULEYMA ZULEYMA USED 5 HOME HOME W/POSITIV MEDICAL MEDICAL E AIRWAY EQUIPME EQUIPME PRESSURE DEVICE CONTINUOU E0601 ZULEYMA ZULEYMA S 5 HOME HOME POSITIVE MEDICAL MEDICAL AIRWAY EQUIPME EQUIPME PRESSURE DEVICE FULL FACE A7030 ZULEYMA BERNARDORELL MASK 5 HOME HOME USED MEDICAL MEDICAL W/POS EQUIPME EQUIPME ARWAY PRESS DEVICE EA FILTER A7038 ZULEYMA ZULEYMA DISPBL 5 HOME HOME USED MEDICAL MEDICAL W/POS EQUIPME EQUIPME ARWAY PRESSURE DEVICE FILTER A7039 ZULEYMA ZULEYMA NON 5 HOME HOME DISPBL MEDICAL MEDICAL USED EQUIPME EQUIPME W/POS ARWAY PRESS DEVICE IIV4 VACC 07453 [facility] VIRUS 0.5 HLTH DEPT ML DOS BALTAZAR FOR IM USE CUL BACT 90125 COMBINED COMBINED XCPT 5 PHYSICIAN PHYSICIAN URINE S LA S LA BLOOD/STO OL AEROBIC ISOL NONEMERG A0120 FEDERATED FEDERATED TRNSPRT: 5 MINI-BUS TRANSPORT TRANSPORT MTN ATION SER ATION SER AREA/OTH SYS NONEMERG A0120 FEDERATED FEDERATED TRNSPRT: 5 MINI-BUS TRANSPORT TRANSPORT MTN ATION SER ATION SER AREA/OTH SYS NEEDLE 33249 [facility] EMG EA 5 N EXTREMTY NEUROLOGY W/PARASPI NL AREA COMPLETE NERVE 97514 [facility] JAVIER CONDUCTIO 5 N N STUDIES NEUROLOGY 9-10 STUDIES NONEMERG A0120 FEDERATED FEDERATED TRNSPRT: 5 MINI-BUS TRANSPORT TRANSPORT [facility] NONEMERG A0120 FEDERATED FEDERATED TRNSPRT: 5 MINI-BUS TRANSPORT TRANSPORT MTN [facility] GROUND A0425 [facility] MILEAGE 5 AMBULANCE AMBULANCE PER SERVICE SERVICE STATUTE MILE AMBULANCE A0429 [facility] SERVICE 5 AMBULANCE AMBULANCE BLS SERVICE SERVICE EMERGENCY TRANSPORT RADIOLOGI 38589 [facility] C EXAM 5 MEDICAL FIDEL CHEST 2 IMAGING VIEWS ASS FRONTAL&L ATERAL NONEMERG A0120 FEDERATED FEDERATED TRNSPRT: 5 MINI-BUS TRANSPORT TRANSPORT MTN [facility] NONEMERG A0120 FEDERATED FEDERATED TRNSPRT: 5 MINI-BUS TRANSPORT TRANSPORT MTN [facility] NONEMERG A0120 FEDERATED FEDERATED TRNSPRT: 5 MINI-BUS TRANSPORT TRANSPORT MTN [facility] MRI 56878 CENTRAL MCQUEEN TRA SPINAL 5 [place] CANAL ORTHOPAED LUMBAR [facility] W/O CONTRAST MATERIAL PARING/CU 84143 IKER DONG TTING 5 JAM JAM BENIGN HYPERKERA TOTIC LESION >4 TRIMMING 24624 IKER DONG NONDYSTRO 5 JAM JAM PHIC NAILS ANY NUMBER DEBRIDEME 96763 IKER DONG NT NAIL 5 JAM JAM ANY METHOD 1-5 NONEMERG A0120 FEDERATED FEDERATED TRNSPRT: 5 MINI-BUS TRANSPORT TRANSPORT MTN [facility] RADEX 56709 CENTRAL MCQUEEN TRA SPINE 5 [place] LUMBOSACR ORTHOPAED AL 2/3 [facility] VIEWS NONEMERG A0120 FEDERATED FEDERATED TRNSPRT: 5 MINI-BUS TRANSPORT TRANSPORT MTN [facility] SBSQ 29626 RICKIE [facility]IAN NURSING 5 [facility] CARE/DAY E/M STABLE 10 MIN SBSQ 22941 ARNBRAIN DAMIAN NURSING 5 [facility] CARE/DAY E/M STABLE 10 MIN DAY CARE S5100 THE THE SERVICES 5 [facility] ADULT; ADULT ADULT PER 15 DAY CARE DAY CARE MINUTES INITIAL 25297 ARNBRAIN DAMIAN NURSING 5 [facility] CARE/DAY 25 MINUTES DAY CARE S5100 THE THE SERVICES 5 [facility] ADULT; ADULT ADULT PER 15 DAY CARE DAY CARE MINUTES DAY CARE S5100 THE THE SERVICES [address] [place] [address] ADULT; ADULT ADULT PER 15 DAY CARE DAY CARE MINUTES DAY CARE S5100 THE THE SERVICES 5 [facility] ADULT; ADULT ADULT PER 15 DAY CARE DAY CARE MINUTES DAY CARE S5100 THE THE SERVICES [address] [place] [address] ADULT; ADULT ADULT PER 15 DAY CARE DAY CARE MINUTES DAY CARE S5100 THE THE SERVICES [address] [place] [address] ADULT; ADULT ADULT PER 15 DAY CARE DAY CARE MINUTES DAY CARE S5100 THE THE SERVICES [address] [place] [address] ADULT; ADULT ADULT PER 15 DAY CARE DAY CARE MINUTES DAY CARE S5100 THE THE SERVICES [address] [place] [address] ADULT; ADULT ADULT PER 15 DAY CARE DAY CARE MINUTES DAY CARE S5100 THE THE SERVICES [address] [place] [address] ADULT; ADULT ADULT PER 15 DAY CARE DAY CARE MINUTES DAY CARE S5100 THE THE SERVICES [address] [place] [address] ADULT; ADULT ADULT PER 15 DAY CARE DAY CARE MINUTES DAY CARE S5100 THE THE SERVICES [address] [place] [address] ADULT; ADULT ADULT PER 15 DAY CARE DAY CARE MINUTES DAY CARE S5100 THE THE SERVICES [address] [place] [address] ADULT; ADULT ADULT PER 15 DAY CARE DAY CARE MINUTES DAY CARE S5100 THE THE SERVICES [address] [place] [address] ADULT; ADULT ADULT PER 15 DAY CARE DAY CARE MINUTES DAY CARE S5100 THE THE SERVICES [address] [place] [address] ADULT; ADULT ADULT PER 15 DAY CARE DAY CARE MINUTES DAY CARE S5100 THE THE SERVICES [address] [place] [address] ADULT; ADULT ADULT PER 15 DAY CARE DAY CARE MINUTES DAY CARE S5100 THE THE SERVICES [address] [place] [address] ADULT; ADULT ADULT PER 15 DAY CARE DAY CARE MINUTES DAY CARE S5100 THE THE SERVICES [address] [place] [address] ADULT; ADULT ADULT PER 15 DAY CARE DAY CARE MINUTES DAY CARE S5100 THE THE SERVICES [address] [place] [address] ADULT; ADULT ADULT PER 15 DAY CARE DAY CARE MINUTES DAY CARE S5100 THE THE SERVICES [address] [place] [address] ADULT; ADULT ADULT PER 15 DAY CARE DAY CARE MINUTES DAY CARE S5100 THE THE SERVICES [address] [place] [address] ADULT; ADULT ADULT PER 15 DAY CARE DAY CARE MINUTES DAY CARE S5100 THE THE SERVICES [address] [place] [address] ADULT; ADULT ADULT PER 15 DAY CARE DAY CARE MINUTES DAY CARE S5100 THE THE SERVICES [address] [place] [address] ADULT; ADULT ADULT PER 15 DAY CARE DAY CARE MINUTES DAY CARE S5100 THE THE SERVICES [address] [place] [address] ADULT; ADULT ADULT PER 15 DAY CARE DAY CARE MINUTES DAY CARE S5100 THE THE SERVICES [address] [place] [address] ADULT; ADULT ADULT PER 15 DAY CARE DAY CARE MINUTES DAY CARE S5100 THE THE SERVICES [address] [place] [address] ADULT; ADULT ADULT PER 15 DAY CARE DAY CARE MINUTES DAY CARE S5100 THE THE SERVICES [address] [place] [address] ADULT; ADULT ADULT PER 15 DAY CARE DAY CARE MINUTES DAY CARE S[address] ADULT; ADULT ADULT PER 15 DAY CARE DAY CARE MINUTES DAY CARE S[address] ADULT; ADULT ADULT PER 15 DAY CARE DAY CARE MINUTES DAY CARE S[address] ADULT; ADULT ADULT PER 15 DAY CARE DAY CARE MINUTES DAY CARE S[address] ADULT; ADULT ADULT PER 15 DAY CARE DAY CARE MINUTES DAY CARE S5100 THE THE SERVICES [address] [place] [address] ADULT; ADULT ADULT PER 15 DAY CARE DAY CARE MINUTES DAY CARE S5100 THE THE SERVICES [address] [place] [address] ADULT; ADULT ADULT PER 15 DAY CARE DAY CARE MINUTES DAY CARE S5100 THE THE SERVICES [address] [place] [address] ADULT; ADULT ADULT PER 15 DAY CARE DAY CARE MINUTES DAY CARE S[address] ADULT; ADULT ADULT PER 15 DAY CARE DAY CARE MINUTES DAY CARE S[address] ADULT; ADULT ADULT PER 15 DAY CARE DAY CARE MINUTES DAY CARE S[address] ADULT; ADULT ADULT PER 15 DAY CARE DAY CARE MINUTES DAY CARE S[address] ADULT; ADULT ADULT PER 15 DAY CARE DAY CARE MINUTES DAY CARE S[address] ADULT; ADULT ADULT PER 15 DAY CARE DAY CARE MINUTES NONEMERGE A0100 [facility] NCY 5 INC TRANSPORT TRANSPORT REGION 9 ATION CO ATION; L TAXI DAY CARE S[address] ADULT; ADULT ADULT PER 15 DAY CARE DAY CARE MINUTES DAY CARE S[address] ADULT; ADULT ADULT PER 15 DAY CARE DAY CARE MINUTES DAY CARE S[address] ADULT; ADULT ADULT PER 15 DAY CARE DAY CARE MINUTES DAY CARE S[address] ADULT; ADULT ADULT PER 15 DAY CARE DAY CARE MINUTES DAY CARE S[address] ADULT; ADULT ADULT PER 15 DAY CARE DAY CARE MINUTES DAY CARE S[address] ADULT; ADULT ADULT PER 15 DAY CARE DAY CARE MINUTES DAY CARE S[address] ADULT; ADULT ADULT PER 15 DAY CARE DAY CARE MINUTES DAY CARE S[address] ADULT; ADULT ADULT PER 15 DAY CARE DAY CARE MINUTES DAY CARE S[address] ADULT; ADULT ADULT PER 15 DAY CARE DAY CARE MINUTES DAY CARE S[address] ADULT; ADULT ADULT PER 15 DAY CARE DAY CARE MINUTES DAY CARE S[address] ADULT; ADULT ADULT PER 15 DAY CARE DAY CARE MINUTES DAY CARE S[address] ADULT; ADULT ADULT PER 15 DAY CARE DAY CARE MINUTES DAY CARE S[address] ADULT; ADULT ADULT PER 15 DAY CARE DAY CARE MINUTES DAY CARE S[address] ADULT; ADULT ADULT PER 15 DAY CARE DAY CARE MINUTES DAY CARE S[address] ADULT; ADULT ADULT PER 15 DAY CARE DAY CARE MINUTES POLYSOM [address] 6/>YRS 5 CANDACE CANDACE SLEEP 4/> MED [facility] ADDL SOFTWARE TECHNICAL LEAD ST SOFTWARE TECHNICAL LEAD ST ALVARO ATTND DAY CARE S[address] ADULT; ADULT ADULT PER 15 DAY CARE DAY CARE MINUTES DAY CARE S[address] ADULT; ADULT ADULT PER 15 DAY CARE DAY CARE MINUTES DAY CARE S[address] ADULT; ADULT ADULT PER 15 DAY CARE DAY CARE MINUTES DAY CARE S[address] ADULT; ADULT ADULT PER 15 DAY CARE DAY CARE MINUTES NONEMERGE A0100 [facility] NCY 5 INC TRANSPORT TRANSPORT REGION 9 ATION CO ATION; L TAXI DAY CARE S[address] ADULT; ADULT ADULT PER 15 DAY CARE DAY CARE MINUTES DAY CARE S[address] ADULT; ADULT ADULT PER 15 DAY CARE DAY CARE MINUTES DAY CARE S[address] ADULT; ADULT ADULT PER 15 DAY CARE DAY CARE MINUTES DAY CARE S[address] ADULT; ADULT ADULT PER 15 DAY CARE DAY CARE MINUTES DAY CARE S[address] ADULT; ADULT ADULT PER 15 DAY CARE DAY CARE MINUTES DAY CARE S[address] ADULT; ADULT ADULT PER 15 DAY CARE DAY CARE MINUTES DAY CARE S[address] ADULT; ADULT ADULT PER 15 DAY CARE DAY CARE MINUTES DAY CARE S5[address] ADULT; ADULT ADULT PER 15 DAY CARE DAY CARE MINUTES ECG [id number] EXPRESS EXPRESS ROUTINE 5 MOBILE MOBILE ECG DIAGNOSTI DIAGNOSTI W/LEAST C SE C SE 12 LDS TRCG ONLY W/O I&R DAY CARE S5100 THE [address] ADULT; ADULT ADULT PER 15 DAY CARE DAY CARE MINUTES DAY CARE S5100 [address] ADULT; ADULT ADULT PER 15 DAY CARE DAY CARE MINUTES NONEMERGE A0100 [facility] [employer] [facility] 5 INC TRANSPORT TRANSPORT REGION 9 ATION CO ATION; L TAXI DAY CARE S5[address] THE [address] ADULT; ADULT ADULT PER 15 DAY CARE DAY CARE MINUTES DAY CARE S5[address] ADULT; ADULT ADULT PER 15 DAY CARE DAY CARE MINUTES DAY CARE S[address] ADULT; ADULT ADULT PER 15 DAY CARE DAY CARE MINUTES DAY CARE S[address] ADULT; ADULT ADULT PER 15 DAY CARE DAY CARE MINUTES DAY CARE S[address] ADULT; ADULT ADULT PER 15 DAY CARE DAY CARE MINUTES DAY CARE S[address] ADULT; ADULT ADULT PER 15 DAY CARE DAY CARE MINUTES DAY CARE S[address] ADULT; ADULT ADULT PER 15 DAY CARE DAY CARE MINUTES DAY CARE S[address] ADULT; ADULT ADULT PER 15 DAY CARE DAY CARE MINUTES DAY CARE S[address] ADULT; ADULT ADULT PER 15 DAY CARE DAY CARE MINUTES NONEMERGE A0100 [facility] TRANSPORT REGION 9 ATION CO ATION; L [facility] [id number] [facility] 5 YFN YFN [employer] HEMOGLOBI 80987 [facility] N 5 YFN YFN GLYCOSYLA [employer] [place] [address] [address] [facility] THYROXINE 5 YFN YFN TOTAL [employer] LIPID [id number] [facility] PANEL 5 YFN YFN [employer] DAY CARE S5100 THE THE SERVICES [address] [place] [address] ADULT; ADULT ADULT PER 15 DAY CARE DAY CARE MINUTES DAY CARE S[address] ADULT; ADULT ADULT PER 15 DAY CARE DAY CARE MINUTES DAY CARE S[address] ADULT; ADULT ADULT PER 15 DAY CARE DAY CARE MINUTES DAY CARE S[address] ADULT; ADULT ADULT PER 15 DAY CARE DAY CARE MINUTES NONEMERGE A0100 [facility]AM[facility] TRANSPORT TRANSPORT REGION 9 ATION CO ATION; L [place] DAY CARE S[address] ADULT; ADULT ADULT PER 15 DAY CARE DAY CARE MINUTES DAY CARE S[address] ADULT; ADULT ADULT PER 15 DAY CARE DAY CARE MINUTES DAY CARE S5100 THE [facility] [address] ADULT; ADULT ADULT PER 15 DAY CARE DAY CARE MINUTES DAY CARE S5100 [address] ADULT; ADULT ADULT PER 15 DAY CARE DAY CARE MINUTES DAY CARE S5100 [address] ADULT; ADULT ADULT PER 15 DAY CARE DAY CARE MINUTES DAY CARE S5100 [address] ADULT; ADULT ADULT PER 15 DAY CARE DAY CARE MINUTES DAY CARE S5100 [address] ADULT; ADULT ADULT PER 15 DAY CARE DAY CARE MINUTES DAY CARE S5100 [address] ADULT; ADULT ADULT PER 15 DAY CARE DAY CARE MINUTES DAY CARE S5100 [address] ADULT; ADULT ADULT PER 15 DAY CARE DAY CARE MINUTES DAY CARE S5[address] ADULT; ADULT ADULT PER 15 DAY CARE DAY CARE MINUTES DAY CARE S5[address] ADULT; ADULT ADULT PER 15 DAY CARE DAY CARE MINUTES DAY CARE S5[address] ADULT; ADULT ADULT PER 15 DAY CARE DAY CARE MINUTES NONEMERGE A0100 [facility] SHANNAN [facility]SS NCY 5 INC TRANSPORT TRANSPORT REGION 9 ATION CO ATION; L TAXI DAY CARE S5100 [address] ADULT; ADULT ADULT PER 15 DAY CARE DAY CARE MINUTES DAY CARE S5100 THE THE SERVICES [address] [place] [address] ADULT; ADULT ADULT PER 15 DAY CARE DAY CARE MINUTES DAY CARE S5100 [address] ADULT; ADULT ADULT PER 15 DAY CARE DAY CARE MINUTES DAY CARE S5100 THE THE SERVICES [address] [place] [address] ADULT; ADULT ADULT PER 15 DAY CARE DAY CARE MINUTES DAY CARE S5100 THE THE SERVICES [address] [place] [address] ADULT; ADULT ADULT PER 15 DAY CARE DAY CARE MINUTES DAY CARE S5100 THE THE SERVICES [address] [place] [address] ADULT; ADULT ADULT PER 15 DAY CARE DAY CARE MINUTES DAY CARE S5[address] ADULT; ADULT ADULT PER 15 DAY CARE DAY CARE MINUTES DAY CARE S5[address] ADULT; ADULT ADULT PER 15 DAY CARE DAY CARE MINUTES DAY CARE S5[address] ADULT; ADULT ADULT PER 15 DAY CARE DAY CARE MINUTES DAY CARE S[address] ADULT; ADULT ADULT PER 15 DAY CARE DAY CARE MINUTES DAY CARE S[address] ADULT; ADULT ADULT PER 15 DAY CARE DAY CARE MINUTES DAY CARE S5[address] ADULT; ADULT ADULT PER 15 DAY CARE DAY CARE MINUTES DAY CARE S[address] ADULT; ADULT ADULT PER 15 DAY CARE DAY CARE MINUTES DAY CARE S[address] ADULT; ADULT ADULT PER 15 DAY CARE DAY CARE MINUTES DAY CARE S[address] ADULT; ADULT ADULT PER 15 DAY CARE DAY CARE MINUTES DAY CARE S[address] ADULT; ADULT ADULT PER 15 DAY CARE DAY CARE MINUTES DAY CARE S[address] ADULT; ADULT ADULT PER 15 DAY CARE DAY CARE MINUTES DAY CARE S[address] ADULT; ADULT ADULT PER 15 DAY CARE DAY CARE MINUTES DAY CARE S[address] ADULT; ADULT ADULT PER 15 DAY CARE DAY CARE MINUTES DAY CARE S[address] ADULT; ADULT ADULT PER 15 DAY CARE DAY CARE MINUTES DAY CARE S[address] ADULT; ADULT ADULT PER 15 DAY CARE DAY CARE MINUTES DAY CARE S[address] ADULT; ADULT ADULT PER 15 DAY CARE DAY CARE MINUTES DAY CARE S[address] ADULT; ADULT ADULT PER 15 DAY CARE DAY CARE MINUTES DAY CARE S[address] ADULT; ADULT ADULT PER 15 DAY CARE DAY CARE MINUTES DAY CARE S[address] ADULT; ADULT ADULT PER 15 DAY CARE DAY CARE MINUTES OVA&HAVEN 22673 LAB [facility] ITES 4 [facility] DIRECT HOLDINGS HOLDINGS SMEARS CONCENTRA TION & ID SMR PRIM [id number] LAB [facility] SRC CPLX 4 [facility] SPEC HOLDINGS HOLDINGS STAIN OVA&HAVEN ITS DAY CARE S[address] ADULT; ADULT ADULT PER 15 DAY CARE DAY CARE MINUTES DAY CARE S5[address] ADULT; ADULT ADULT PER 15 DAY CARE DAY CARE MINUTES DAY CARE S[address] ADULT; ADULT ADULT PER 15 DAY CARE DAY CARE MINUTES DAY CARE S[address] ADULT; ADULT ADULT PER 15 DAY CARE DAY CARE MINUTES DAY CARE S[address] ADULT; ADULT ADULT PER 15 DAY CARE DAY CARE MINUTES DAY CARE S[address] ADULT; ADULT ADULT PER 15 DAY CARE DAY CARE MINUTES DAY CARE S[address] ADULT; ADULT ADULT PER 15 DAY CARE DAY CARE MINUTES DAY CARE S[address] ADULT; ADULT ADULT PER 15 DAY CARE DAY CARE MINUTES DAY CARE S[address] ADULT; ADULT ADULT PER 15 DAY CARE DAY CARE MINUTES DAY CARE S5100 THE THE SERVICES [address] [place] [address] ADULT; ADULT ADULT PER 15 DAY CARE DAY CARE MINUTES DAY CARE S5100 THE THE SERVICES [address] [place] [address] ADULT; ADULT ADULT PER 15 DAY CARE DAY CARE MINUTES DAY CARE S5100 THE THE SERVICES [address] [place] [address] ADULT; ADULT ADULT PER 15 DAY CARE DAY CARE MINUTES NONEMERGE A0100 [facility] NCY 4 INC TRANSPORT TRANSPORT REGION 9 ATION CO ATION; L TAXI DAY CARE S5100 THE THE SERVICES [address] [place] [address] ADULT; ADULT ADULT PER 15 DAY CARE DAY CARE MINUTES DAY CARE S5100 THE THE SERVICES [address] [place] [address] ADULT; ADULT ADULT PER 15 DAY CARE DAY CARE MINUTES DAY CARE S5100 THE THE SERVICES [address] [place] [address] ADULT; ADULT ADULT PER 15 DAY CARE DAY CARE MINUTES DAY CARE S[address] ADULT; ADULT ADULT PER 15 DAY CARE DAY CARE MINUTES DAY CARE S[address] ADULT; ADULT ADULT PER 15 DAY CARE DAY CARE MINUTES DAY CARE S5100 THE THE SERVICES [address] [place] [address] ADULT; ADULT ADULT PER 15 DAY CARE DAY CARE MINUTES DAY CARE S[address] ADULT; ADULT ADULT PER 15 DAY CARE DAY CARE MINUTES DAY CARE S[address] ADULT; ADULT ADULT PER 15 DAY CARE DAY CARE MINUTES DAY CARE S5100 THE THE SERVICES [address] [place] [address] ADULT; ADULT ADULT PER 15 DAY CARE DAY CARE MINUTES DAY CARE S5100 THE THE SERVICES [address] [place] [address] ADULT; ADULT ADULT PER 15 DAY CARE DAY CARE MINUTES DAY CARE S5100 THE THE SERVICES [address] [place] [address] ADULT; ADULT ADULT PER 15 DAY CARE DAY CARE MINUTES DAY CARE S[address] ADULT; ADULT ADULT PER 15 DAY CARE DAY CARE MINUTES DAY CARE S5100 THE THE SERVICES [address] [place] [address] ADULT; ADULT ADULT PER 15 DAY CARE DAY CARE MINUTES DAY CARE S[address] ADULT; ADULT ADULT PER 15 DAY CARE DAY CARE MINUTES DAY CARE S[address] ADULT; ADULT ADULT PER 15 DAY CARE DAY CARE MINUTES DAY CARE S[address] ADULT; ADULT ADULT PER 15 DAY CARE DAY CARE MINUTES DAY CARE S[address] ADULT; ADULT ADULT PER 15 DAY CARE DAY CARE MINUTES DAY CARE S5[address] ADULT; ADULT ADULT PER 15 DAY CARE DAY CARE MINUTES RADEX 90404 RADIOLOGY ADELIA SPINE 4 ARSENIO THORACIC ASSOCIATE 3 VIEWS S OF NOTH ECG [facility] CANDACE ECG W/LEAST PHYSICIAN 12 LDS S EKG I&[place] [address] RADIOLOGY VISHAL HEAD/BRAI 4 HARISH N W/O ASSOCIATE CONTRAST S OF NOTH MATERIAL RADEX 46742 RADIOLOGY VISHAL SPINE 4 HARISH LUMBOSACR ASSOCIATE AL 2/[address] [place] [address] RADIOLOGY VISHAL CERVICAL 4 HARISH SPINE W/O ASSOCIATE CONTRAST S OF NOTH MATERIAL DAY CARE S[address] ADULT; ADULT ADULT PER 15 DAY CARE DAY CARE MINUTES DAY CARE S5[address] ADULT; ADULT ADULT PER 15 DAY CARE DAY CARE MINUTES DAY CARE S5[address] ADULT; ADULT ADULT PER 15 DAY CARE DAY CARE MINUTES DAY CARE S[address] ADULT; ADULT ADULT PER 15 DAY CARE DAY CARE MINUTES DAY CARE S[address] ADULT; ADULT ADULT PER 15 DAY CARE DAY CARE MINUTES DAY CARE S[address] ADULT; ADULT ADULT PER 15 DAY CARE DAY CARE MINUTES DAY CARE S[address] ADULT; ADULT ADULT PER 15 DAY CARE DAY CARE MINUTES DAY CARE S[address] ADULT; ADULT ADULT PER 15 DAY CARE DAY CARE MINUTES DAY CARE S5[address] ADULT; ADULT ADULT PER 15 DAY CARE DAY CARE MINUTES DAY CARE S5100 THE THE SERVICES [address] [place] [address] ADULT; ADULT ADULT PER 15 DAY CARE DAY CARE MINUTES DAY CARE S5100 THE THE SERVICES [address] [place] [address] ADULT; ADULT ADULT PER 15 DAY CARE DAY CARE MINUTES DAY CARE S5100 THE THE SERVICES [address] [place] [address] ADULT; ADULT ADULT PER 15 DAY CARE DAY CARE MINUTES DAY CARE S5100 THE THE SERVICES [address] [place] [address] ADULT; ADULT ADULT PER 15 DAY CARE DAY CARE MINUTES DAY CARE S5100 THE THE SERVICES [address] [place] [address] ADULT; ADULT ADULT PER 15 DAY CARE DAY CARE MINUTES DAY CARE S5100 THE THE SERVICES [address] [place] [address] ADULT; ADULT ADULT PER 15 DAY CARE DAY CARE MINUTES DAY CARE S5100 THE THE SERVICES [address] [place] [address] ADULT; ADULT ADULT PER 15 DAY CARE DAY CARE MINUTES DAY CARE S[address] ADULT; ADULT ADULT PER 15 DAY CARE DAY CARE MINUTES DAY CARE S[address] ADULT; ADULT ADULT PER 15 DAY CARE DAY CARE MINUTES DAY CARE S[address] ADULT; ADULT ADULT PER 15 DAY CARE DAY CARE MINUTES DAY CARE S[address] ADULT; ADULT ADULT PER 15 DAY CARE DAY CARE MINUTES DAY CARE S[address] ADULT; ADULT ADULT PER 15 DAY CARE DAY CARE MINUTES DAY CARE S[address] ADULT; ADULT ADULT PER 15 DAY CARE DAY CARE MINUTES DAY CARE S[address] ADULT; ADULT ADULT PER 15 DAY CARE DAY CARE MINUTES DAY CARE S[address] ADULT; ADULT ADULT PER 15 DAY CARE DAY CARE MINUTES DAY CARE S[address] ADULT; ADULT ADULT PER 15 DAY CARE DAY CARE MINUTES DAY CARE S[address] ADULT; ADULT ADULT PER 15 DAY CARE DAY CARE MINUTES DAY CARE S[address] ADULT; ADULT ADULT PER 15 DAY CARE DAY CARE MINUTES DAY CARE S[address] ADULT; ADULT ADULT PER 15 DAY CARE DAY CARE MINUTES DAY CARE S[address] ADULT; ADULT ADULT PER 15 DAY CARE DAY CARE MINUTES DAY CARE S[address] ADULT; ADULT ADULT PER 15 DAY CARE DAY CARE MINUTES DAY CARE S[address] ADULT; ADULT ADULT PER 15 DAY CARE DAY CARE MINUTES DAY CARE S[address] ADULT; ADULT ADULT PER 15 DAY CARE DAY CARE MINUTES DAY CARE S5[address] ADULT; ADULT ADULT PER 15 DAY CARE DAY CARE MINUTES DAY CARE S5[address] ADULT; ADULT ADULT PER 15 DAY CARE DAY CARE MINUTES DAY CARE S5[address] ADULT; ADULT ADULT PER 15 DAY CARE DAY CARE MINUTES HEMOGLOBI 78034 LAB [facility] LAB OT[facility] N 4 [facility] GLYCOSYLA HOLDINGS HOLDINGS JERI A1C GENERAL 34822 LAB [facility] LAB [facility] HEALTH 4 [facility] PANEL HOLDINGS HOLDINGS LIPID 69840 LAB [facility] PANEL 4 [facility] HOLDINGS HOLDINGS DAY CARE S5[address] ADULT; ADULT ADULT PER 15 DAY CARE DAY CARE MINUTES DAY CARE S5[address] ADULT; ADULT ADULT PER 15 DAY CARE DAY CARE MINUTES DAY CARE S5[address] ADULT; ADULT ADULT PER 15 DAY CARE DAY CARE MINUTES NONEMERGE A0100 [facility] SHANNAN SAUCEDO NCY 4 INC TRANSPORT TRANSPORT REGION 9 ATION CO ATION; L TAXI DAY CARE S5[address] ADULT; ADULT ADULT PER 15 DAY CARE DAY CARE MINUTES DAY CARE S5[address] ADULT; ADULT ADULT PER 15 DAY CARE DAY CARE MINUTES DAY CARE S5[address] ADULT; ADULT ADULT PER 15 DAY CARE DAY CARE MINUTES DAY CARE S5[address] ADULT; ADULT ADULT PER 15 DAY CARE DAY CARE MINUTES DAY CARE S5[address] ADULT; ADULT ADULT PER 15 DAY CARE DAY CARE MINUTES NONEMERGE A0100 [facility] NCY 4 INC TRANSPORT TRANSPORT REGION 9 ATION CO ATION; L TAXI REPAIR 52224 [facility] INTERMEDI 4 PLASTIC ATE SURGERY F/E/E/N/L GROUP , &/MUC 2.5 CM/< EXC B9 69194 [facility] LES MRGN 4 PLASTIC XCP SK TG SURGERY GROUP , F/E/E/N/L /M 1.1-2.0CM DAY CARE S5[address] ADULT; ADULT ADULT PER 15 DAY CARE DAY CARE MINUTES DAY CARE S5[address] ADULT; ADULT ADULT PER 15 DAY CARE DAY CARE MINUTES DAY CARE S5[address] ADULT; ADULT ADULT PER 15 DAY CARE DAY CARE MINUTES DAY CARE S5[address] ADULT; ADULT ADULT PER 15 DAY CARE DAY CARE MINUTES DAY CARE S5[address] ADULT; ADULT ADULT PER 15 DAY CARE DAY CARE MINUTES SIMPLE 92456 EMERG[facility] [place] REPAIR 4 CARE LOREN SCALP/NEC PHYS K/AX/TEJINDER NORTHERN T/TRUNK 2.5CM/< DAY CARE S[address] ADULT; ADULT ADULT PER 15 DAY CARE DAY CARE MINUTES DAY CARE S5[address] ADULT; ADULT ADULT PER 15 DAY CARE DAY CARE MINUTES DAY CARE S5[address] ADULT; ADULT ADULT PER 15 DAY CARE DAY CARE MINUTES DAY CARE S5[address] ADULT; ADULT ADULT PER 15 DAY CARE DAY CARE MINUTES DAY CARE S5[address] ADULT; ADULT ADULT PER 15 DAY CARE DAY CARE MINUTES DAY CARE S5[address] ADULT; ADULT ADULT PER 15 DAY CARE DAY CARE MINUTES FOR DIAB A5512 [place] EL[place] ONLY MX 4 MEDICAL MEDICAL DNSITY SUPPLY SUPPLY [facility] [employer] [employer] FORMD PRFAB EA DIAB ONLY A5500 [place] FIT CSTM 4 MEDICAL MEDICAL PREP&SPL SUPPLY SUPPLY [employer] DNSITY INSRT DAY CARE S[address] ADULT; ADULT ADULT PER 15 DAY CARE DAY CARE MINUTES DAY CARE S5[address] ADULT; ADULT ADULT PER 15 DAY CARE DAY CARE MINUTES DAY CARE S5[address] ADULT; ADULT ADULT PER 15 DAY CARE DAY CARE MINUTES DAY CARE S5[address] ADULT; ADULT ADULT PER 15 DAY CARE DAY CARE MINUTES DAY CARE S5[address] ADULT; ADULT ADULT PER 15 DAY CARE DAY CARE MINUTES GROUND A0425 VICTORIA VICTORIA MILEAGE 4 CO CO PER AMBULANCE AMBULANCE STATUTE TAXIN TAXIN MILE THER [address] PROPH/DX 4 CANDACEIVÁN MARIA NJX IV FT FT PUSH CRUZ ARRO[facility] SINGLE/1S T SBST/DRUG ECG [address] ROUTINE 4 CANDACE CANDACE ECG FT FT W/LEAST RCUZ ARROYO 12 LDS TRCG ONLY W/O I&R AMB A0427 VICTORIA VICTORIA SERVICE 4 CO CO ALS AMBULANCE AMBULANCE EMERGENCY TAXIN TAXIN TRANSPORT LEVEL [address] N VENOUS 4 CANDACE MARIA BLOOD FT FT VENIPUNCT [facility] URE GLUC BLD [address] GLUC MNTR 4 CANDACE MARIA DEV FT FT CLEARED CRUZ [facility] FDA SPEC HOME USE BLOOD [address] COUNT 4 CANDACE ROBERSONBETH COMPLETE FT FT AUTO&AUTO CRUZ [facility] DIFRNTL WBC ECG [address] TIKA ROUTINE 4 CANDACE GAR ECG W/LEAST PHYSICIAN 12 LDS S EKG I&R ONLY BASIC [address] METABOLIC 4 CANDACE MARIA PANEL FT FT CALCIUM CRUZ [facility] TOTAL DAY CARE S[address] ADULT; ADULT ADULT PER 15 DAY CARE DAY CARE MINUTES DAY CARE S[address] ADULT; ADULT ADULT PER 15 DAY CARE DAY CARE MINUTES DAY CARE S[address] ADULT; ADULT ADULT PER 15 DAY CARE DAY CARE MINUTES DAY CARE S5[address] ADULT; ADULT ADULT PER 15 DAY CARE DAY CARE MINUTES DAY CARE S[address] ADULT; ADULT ADULT PER 15 DAY CARE DAY CARE MINUTES DAY CARE S5[address] ADULT; ADULT ADULT PER 15 DAY CARE DAY CARE MINUTES NONEMERGE A0100 [facility] [employer] NCY 4 INC TRANSPORT TRANSPORT REGION 9 ATION CO ATION; L TAXI DAY CARE S[address] ADULT; ADULT ADULT PER 15 DAY CARE DAY CARE MINUTES DAY CARE S5[address] ADULT; ADULT ADULT PER 15 DAY CARE DAY CARE MINUTES DAY CARE S[address] ADULT; ADULT ADULT PER 15 DAY CARE DAY CARE MINUTES DAY CARE S[address] ADULT; ADULT ADULT PER 15 DAY CARE DAY CARE MINUTES DAY CARE S[address] ADULT; ADULT ADULT PER 15 DAY CARE DAY CARE MINUTES NONEMERGE A0100 [facility] [employer] NCY 4 INC TRANSPORT TRANSPORT REGION 9 ATION CO ATION; L TAXI RADEX 58239 [facility] SPINE 4 MEGHNA LUMBOSLOVE ASSOCIATE AL 2/3 S OF [facility] DAY CARE S[address] ADULT; ADULT ADULT PER 15 DAY CARE DAY CARE MINUTES DAY CARE S[address] ADULT; ADULT ADULT PER 15 DAY CARE DAY CARE MINUTES DAY CARE S[address] ADULT; ADULT ADULT PER 15 DAY CARE DAY CARE MINUTES DAY CARE S5100 THE THE SERVICES [address] [place] [address] ADULT; ADULT ADULT PER 15 DAY CARE DAY CARE MINUTES DAY CARE S5100 THE THE SERVICES [address] [place] [address] ADULT; ADULT ADULT PER 15 DAY CARE DAY CARE MINUTES DAY CARE S[address] ADULT; ADULT ADULT PER 15 DAY CARE DAY CARE MINUTES NONEMERGE A0100 [facility] NCY 4 INC TRANSPORT TRANSPORT REGION 9 ATION CO ATION; L TAXI DAY CARE S5100 THE THE SERVICES [address] [place] [address] ADULT; ADULT ADULT PER 15 DAY CARE DAY CARE MINUTES DAY CARE S5100 THE THE SERVICES [address] [place] [address] ADULT; ADULT ADULT PER 15 DAY CARE DAY CARE MINUTES DAY CARE S[address] ADULT; ADULT ADULT PER 15 DAY CARE DAY CARE MINUTES DAY CARE S[address] ADULT; ADULT ADULT PER 15 DAY CARE DAY CARE MINUTES DAY CARE S5100 THE THE SERVICES [address] [place] [address] ADULT; ADULT ADULT PER 15 DAY CARE DAY CARE MINUTES DAY CARE S[address] ADULT; ADULT ADULT PER 15 DAY CARE DAY CARE MINUTES DAY CARE S[address] ADULT; ADULT ADULT PER 15 DAY CARE DAY CARE MINUTES DAY CARE S[address] ADULT; ADULT ADULT PER 15 DAY CARE DAY CARE MINUTES DAY CARE S[address] ADULT; ADULT ADULT PER 15 DAY CARE DAY CARE MINUTES DAY CARE S5100 THE THE SERVICES [address] [place] [address] ADULT; ADULT ADULT PER 15 DAY CARE DAY CARE MINUTES DAY CARE S[address] ADULT; ADULT ADULT PER 15 DAY CARE DAY CARE MINUTES DAY CARE S[address] ADULT; ADULT ADULT PER 15 DAY CARE DAY CARE MINUTES DAY CARE S[address] ADULT; ADULT ADULT PER 15 DAY CARE DAY CARE MINUTES DAY CARE S5100 THE THE SERVICES [address] [place] [address] ADULT; ADULT ADULT PER 15 DAY CARE DAY CARE MINUTES DAY CARE S5100 THE THE SERVICES [address] [place] [address] ADULT; ADULT ADULT PER 15 DAY CARE DAY CARE MINUTES DAY CARE S5100 THE THE SERVICES [address] [place] [address] ADULT; ADULT ADULT PER 15 DAY CARE DAY CARE MINUTES DAY CARE S5100 THE THE SERVICES [address] [place] [address] ADULT; ADULT ADULT PER 15 DAY CARE DAY CARE MINUTES DAY CARE S5100 THE THE SERVICES [address] [place] [address] ADULT; ADULT ADULT PER 15 DAY CARE DAY CARE MINUTES DAY CARE S5100 THE THE SERVICES [address] [place] [address] ADULT; ADULT ADULT PER 15 DAY CARE DAY CARE MINUTES DAY CARE S5100 THE THE SERVICES [address] [place] [address] ADULT; ADULT ADULT PER 15 DAY CARE DAY CARE MINUTES DAY CARE S5100 THE THE SERVICES [address] [place] [address] ADULT; ADULT ADULT PER 15 DAY CARE DAY CARE MINUTES DAY CARE S5100 THE THE SERVICES [address] [place] [address] ADULT; ADULT ADULT PER 15 DAY CARE DAY CARE MINUTES DAY CARE S5100 THE THE SERVICES [address] [place] [address] ADULT; ADULT ADULT PER 15 DAY CARE DAY CARE MINUTES DAY CARE S[address] ADULT; ADULT ADULT PER 15 DAY CARE DAY CARE MINUTES DAY CARE S[address] ADULT; ADULT ADULT PER 15 DAY CARE DAY CARE MINUTES DAY CARE S[address] ADULT; ADULT ADULT PER 15 DAY CARE DAY CARE MINUTES DAY CARE S[address] ADULT; ADULT ADULT PER 15 DAY CARE DAY CARE MINUTES DAY CARE S5100 THE THE SERVICES [address] [place] [address] ADULT; ADULT ADULT PER 15 DAY CARE DAY CARE MINUTES DAY CARE S5100 THE THE SERVICES [address] [place] [address] ADULT; ADULT ADULT PER 15 DAY CARE DAY CARE MINUTES DAY CARE S5100 THE THE SERVICES [address] [place] [address] ADULT; ADULT ADULT PER 15 DAY CARE DAY CARE MINUTES DAY CARE S5100 THE THE SERVICES [address] [place] [address] ADULT; ADULT ADULT PER 15 DAY CARE DAY CARE MINUTES DAY CARE S5100 THE THE SERVICES [address] [place] [address] ADULT; ADULT ADULT PER 15 DAY CARE DAY CARE MINUTES DAY CARE S5100 THE THE SERVICES [address] [place] [address] ADULT; ADULT ADULT PER 15 DAY CARE DAY CARE MINUTES DAY CARE S5100 THE THE SERVICES [address] [place] [address] ADULT; ADULT ADULT PER 15 DAY CARE DAY CARE MINUTES DAY CARE S5100 THE THE SERVICES [address] [place] [address] ADULT; ADULT ADULT PER 15 DAY CARE DAY CARE MINUTES DAY CARE S5100 THE THE SERVICES [address] [place] [address] ADULT; ADULT ADULT PER 15 DAY CARE DAY CARE MINUTES DAY CARE S5100 THE THE SERVICES [address] [place] [address] ADULT; ADULT ADULT PER 15 DAY CARE DAY CARE MINUTES DAY CARE S5100 THE THE SERVICES [address] [place] [address] ADULT; ADULT ADULT PER 15 DAY CARE DAY CARE MINUTES DAY CARE S5100 THE THE SERVICES [address] [place] [address] ADULT; ADULT ADULT PER 15 DAY CARE DAY CARE MINUTES DAY CARE S5100 THE THE SERVICES [address] [place] [address] ADULT; ADULT ADULT PER 15 DAY CARE DAY CARE MINUTES DAY CARE S5100 THE THE SERVICES [address] [place] [address] ADULT; ADULT ADULT PER 15 DAY CARE DAY CARE MINUTES DAY CARE S5100 THE THE SERVICES [address] [place] [address] ADULT; ADULT ADULT PER 15 DAY CARE DAY CARE MINUTES DAY CARE S[address] ADULT; ADULT ADULT PER 15 DAY CARE DAY CARE MINUTES DAY CARE S[address] ADULT; ADULT ADULT PER 15 DAY CARE DAY CARE MINUTES DAY CARE S[address] ADULT; ADULT ADULT PER 15 DAY CARE DAY CARE MINUTES DAY CARE S5100 THE THE SERVICES [address] [place] [address] ADULT; ADULT ADULT PER 15 DAY CARE DAY CARE MINUTES DAY CARE S5100 THE THE SERVICES [address] [place] [address] ADULT; ADULT ADULT PER 15 DAY CARE DAY CARE MINUTES DAY CARE S5100 THE THE SERVICES [address] [place] [address] ADULT; ADULT ADULT PER 15 DAY CARE DAY CARE MINUTES DAY CARE S5100 THE THE SERVICES [address] [place] [address] ADULT; ADULT ADULT PER 15 DAY CARE DAY CARE MINUTES DAY CARE S[address] ADULT; ADULT ADULT PER 15 DAY CARE DAY CARE MINUTES DAY CARE S[address] ADULT; ADULT ADULT PER 15 DAY CARE DAY CARE MINUTES DAY CARE S5[address] ADULT; ADULT ADULT PER 15 DAY CARE DAY CARE MINUTES DAY CARE S5[address] ADULT; ADULT ADULT PER 15 DAY CARE DAY CARE MINUTES DAY CARE S5[address] ADULT; ADULT ADULT PER 15 DAY CARE DAY CARE MINUTES DAY CARE S5[address] ADULT; ADULT ADULT PER 15 DAY CARE DAY CARE MINUTES NONEMERGE A0100 [facility] CAC [facility] 4 INC TRANSPORT TRANSPORT REGION 9 ATION CO ATION; L [place] MAMMOGRAP [address] ST HY 4 CANDACE [place] BILATERAL FT FT [facility] DIAGNOSTI [id number] RADIOLOGY SAMUEL C 4 GAR MAMMOGRAP ASSOCIATE HY INCL S OF [facility] CAD WHEN PERF; BILAT COMPUTER- [id number] RADIOLOGY SAMUEL AIDED 4 GAR DETECTION ASSOCIATE DX S OF [facility] MAMMOGRAP DAY CARE S[address] ADULT; ADULT ADULT PER 15 DAY CARE DAY CARE MINUTES DAY CARE S5100 THE [address] ADULT; ADULT ADULT PER 15 DAY CARE DAY CARE MINUTES DAY CARE S5100 [address] ADULT; ADULT ADULT PER 15 DAY CARE DAY CARE MINUTES DAY CARE S5[address] ADULT; ADULT ADULT PER 15 DAY CARE DAY CARE MINUTES DAY CARE S5[address] ADULT; ADULT ADULT PER 15 DAY CARE DAY CARE MINUTES DAY CARE S5[address] ADULT; ADULT ADULT PER 15 DAY CARE DAY CARE MINUTES NONEMERGE A0100 LKLP CAC [facility] 4 INC TRANSPORT TRANSPORT REGION 9 ATION CO ATION; L TAXI NONEMERGE A0100 LKLP CAC [place] [facility] 4 INC TRANSPORT TRANSPORT REGION 9 ATION CO ATION; L TAXI DAY CARE S[address] ADULT; ADULT ADULT PER 15 DAY CARE DAY CARE MINUTES DAY CARE S5[address] ADULT; ADULT ADULT PER 15 DAY CARE DAY CARE MINUTES DAY CARE S[address] ADULT; ADULT ADULT PER 15 DAY CARE DAY CARE MINUTES DAY CARE S5100 [address] ADULT; ADULT ADULT PER 15 DAY CARE DAY CARE MINUTES DAY CARE S[address] ADULT; ADULT ADULT PER 15 DAY CARE DAY CARE MINUTES DAY CARE S[address] ADULT; ADULT ADULT PER 15 DAY CARE DAY CARE MINUTES SKIN TEST 76738 [facility] 4 CANDACE CORONA TUBERCULO SIS PHYSICIAN INTRADERM S AL DAY CARE S5[address] ADULT; ADULT ADULT PER 15 DAY CARE DAY CARE MINUTES DAY CARE S5[address] ADULT; ADULT ADULT PER 15 DAY CARE DAY CARE MINUTES DAY CARE S[address] ADULT; ADULT ADULT PER 15 DAY CARE DAY CARE MINUTES DAY CARE S5[address] ADULT; ADULT ADULT PER 15 DAY CARE DAY CARE MINUTES DETERMINA [id number] REHANA RODRIGUEZ TION 4 NOLVIA, REFRACTIV OD, PSC E STATE OPHTH 08863 REHANA RODRIGUEZ MEDICAL 4 NOLVIA, XM&EVAL OD, PSC COMPRE NEW PT 1/> VST DAY CARE S5[address] ADULT; ADULT ADULT PER 15 DAY CARE DAY CARE MINUTES DAY CARE S[address] ADULT; ADULT ADULT PER 15 DAY CARE DAY CARE MINUTES DAY CARE S[address] ADULT; ADULT ADULT PER 15 DAY CARE DAY CARE MINUTES DAY CARE S[address] ADULT; ADULT ADULT PER 15 DAY CARE DAY CARE MINUTES DAY CARE S[address] ADULT; ADULT ADULT PER 15 DAY CARE DAY CARE MINUTES DAY CARE S5100 THE THE SERVICES [address] [place] [address] ADULT; ADULT ADULT PER 15 DAY CARE DAY CARE MINUTES DAY CARE S[address] ADULT; ADULT ADULT PER 15 DAY CARE DAY CARE MINUTES DAY CARE S[address] ADULT; ADULT ADULT PER 15 DAY CARE DAY CARE MINUTES DAY CARE S5100 THE THE SERVICES [address] [place] [address] ADULT; ADULT ADULT PER 15 DAY CARE DAY CARE MINUTES DAY CARE S[address] ADULT; ADULT ADULT PER 15 DAY CARE DAY CARE MINUTES DAY CARE S[address] ADULT; ADULT ADULT PER 15 DAY CARE DAY CARE MINUTES DAY CARE S[address] ADULT; ADULT ADULT PER 15 DAY CARE DAY CARE MINUTES DAY CARE S[address] ADULT; ADULT ADULT PER 15 DAY CARE DAY CARE MINUTES DAY CARE S[address] ADULT; ADULT ADULT PER 15 DAY CARE DAY CARE MINUTES DAY CARE S[address] ADULT; ADULT ADULT PER 15 DAY CARE DAY CARE MINUTES DAY CARE S[address] ADULT; ADULT ADULT PER 15 DAY CARE DAY CARE MINUTES DAY CARE S5[address] ADULT; ADULT ADULT PER 15 DAY CARE DAY CARE MINUTES [id number] [facility]DR[facility] 4 CANDACE MARIA INCLUDES MED CTR MED CTR FRACTIONS SOFTWARE TECHNICAL LEAD ST SOFTWARE TECHNICAL LEAD ST IF PERFORMED DAY CARE S5[address] ADULT; ADULT ADULT PER 15 DAY CARE DAY CARE MINUTES DAY CARE S5[address] ADULT; ADULT ADULT PER 15 DAY CARE DAY CARE MINUTES MYOCARDIA 97994 ST BLAYNE MOH L SPECT 4 CANDACE MULTIPLE STUDIES PHYSICIAN S ECG [address] ST TIKA ROUTINE 4 CANDACE GAR ECG W/LEAST PHYSICIAN 12 LDS S EKG I&R ONLY CV STRS 13138 ST BLAYNE MOH TST 4 CANDACE XERS&/OR RX CONT PHYSICIAN ECG W/O S I&R CV STRS 24923 ST BLAYNE MOH TST 4 CANDACE XERS&/OR RX CONT PHYSICIAN ECG I&R S ONLY ECG 81809 ST TIKA ROUTINE 4 CANDACE GAR ECG W/LEAST PHYSICIAN 12 LDS S EKG I&R ONLY ECG [address] ST TIKA ROUTINE 4 CANDACE GAR ECG W/LEAST PHYSICIAN 12 LDS S EKG I&R ONLY RADIOLOGI 07695 RADIOLOGY HAMZAH C EXAM 4 TUS CHEST 2 ASSOCIATE VIEWS S OF [facility] FRONTAL&L ATERAL AMB A0427 VICTORIA VICTORIA SERVICE 4 CO CO ALS AMBULANCE AMBULANCE EMERGENCY TAXIN TAXIN TRANSPORT LEVEL 1 GROUND A0425 VICTORIA VICTORIA MILEAGE 4 CO CO PER AMBULANCE AMBULANCE STATUTE TAXIN TAXIN MILE DAY CARE S[address] ADULT; ADULT ADULT PER 15 DAY CARE DAY CARE MINUTES ECHO [address] TTHRC R-T 4 CANDACE BANGZABETH 2D FT FT W/WOM-MOD CRUZ ARROYO E COMPL SPEC&COLR D MRI BRAIN [address] BRAIN 4 CANDACE CANDACE STEM W/O FT FT W/CONTRAS CRUZ Bhatti MATERIAL DAY CARE S[address] ADULT; ADULT ADULT PER 15 DAY CARE DAY CARE MINUTES DAY CARE S[address] ADULT; ADULT ADULT PER 15 DAY CARE DAY CARE MINUTES DAY CARE S[address] ADULT; ADULT ADULT PER 15 DAY CARE DAY CARE MINUTES DAY CARE S[address] ADULT; ADULT ADULT PER 15 DAY CARE DAY CARE MINUTES DAY CARE S[address] ADULT; ADULT ADULT PER 15 DAY CARE DAY CARE MINUTES DAY CARE S[address] ADULT; ADULT ADULT PER 15 DAY CARE DAY CARE MINUTES DAY CARE S[address] ADULT; ADULT ADULT PER 15 DAY CARE DAY CARE MINUTES DAY CARE S[address] ADULT; ADULT ADULT PER 15 DAY CARE DAY CARE MINUTES DAY CARE S[address] ADULT; ADULT ADULT PER 15 DAY CARE DAY CARE MINUTES DAY CARE S[address] ADULT; ADULT ADULT PER 15 DAY CARE DAY CARE MINUTES DAY CARE S5100 THE THE SERVICES [address] [place] [address] ADULT; ADULT ADULT PER 15 DAY CARE DAY CARE MINUTES DAY CARE S[address] ADULT; ADULT ADULT PER 15 DAY CARE DAY CARE MINUTES DAY CARE S[address] ADULT; ADULT ADULT PER 15 DAY CARE DAY CARE MINUTES DAY CARE S[address] ADULT; ADULT ADULT PER 15 DAY CARE DAY CARE MINUTES DAY CARE S[address] ADULT; ADULT ADULT PER 15 DAY CARE DAY CARE MINUTES DAY CARE S[address] ADULT; ADULT ADULT PER 15 DAY CARE DAY CARE MINUTES DAY CARE S[address] ADULT; ADULT ADULT PER 15 DAY CARE DAY CARE MINUTES RADEX 78753 ARBEN GARDINER FINGR 4 [facility] ER MAT MINIMUM 2 ORTHOPAE VIEWS NONEMERGE A0100 [facility] NCY 4 INC TRANSPORT TRANSPORT REGION 9 ATION CO ATION; L TAXI DAY CARE S5[address] ADULT; ADULT ADULT PER 15 DAY CARE DAY CARE MINUTES DAY CARE S5[address] ADULT; ADULT ADULT PER 15 DAY CARE DAY CARE MINUTES DAY CARE S[address] ADULT; ADULT ADULT PER 15 DAY CARE DAY CARE MINUTES DAY CARE S[address] ADULT; ADULT ADULT PER 15 DAY CARE DAY CARE MINUTES DAY CARE S5100 THE THE SERVICES [address] [place] [address] ADULT; ADULT ADULT PER 15 DAY CARE DAY CARE MINUTES DAY CARE S5100 THE THE SERVICES [address] [place] [address] ADULT; ADULT ADULT PER 15 DAY CARE DAY CARE MINUTES DAY CARE S5100 THE THE SERVICES [address] [place] [address] ADULT; ADULT ADULT PER 15 DAY CARE DAY CARE MINUTES GROUND A0425 VICTORIA VICTORIA MILEAGE 3 CO CO PER AMBULANCE AMBULANCE STATUTE TAXIN TAXIN MILE AMBULANCE A0429 VICTORIA VICTORIA SERVICE 3 CO CO BLS AMBULANCE AMBULANCE EMERGENCY TAXIN TAXIN TRANSPORT RADEX 48122 RADIOLOGY ROEBKER SPINE 3 JAM LUMBOSACR ASSOCIATE AL 2/3 S OF [facility] DAY CARE S[address] ADULT; ADULT ADULT PER 15 DAY CARE DAY CARE MINUTES DAY CARE S5[address] ADULT; ADULT ADULT PER 15 DAY CARE DAY CARE MINUTES DAY CARE S5100 THE THE SERVICES [address] [place] [address] ADULT; ADULT ADULT PER 15 DAY CARE DAY CARE MINUTES DAY CARE S5100 THE THE SERVICES [address] [place] [address] ADULT; ADULT ADULT PER 15 DAY CARE DAY CARE MINUTES DAY CARE S[address] ADULT; ADULT ADULT PER 15 DAY CARE DAY CARE MINUTES DAY CARE S[address] ADULT; ADULT ADULT PER 15 DAY CARE DAY CARE MINUTES DAY CARE S5100 THE THE SERVICES [address] [place] [address] ADULT; ADULT ADULT PER 15 DAY CARE DAY CARE MINUTES DAY CARE S[address] ADULT; ADULT ADULT PER 15 DAY CARE DAY CARE MINUTES DAY CARE S[address] ADULT; ADULT ADULT PER 15 DAY CARE DAY CARE MINUTES DAY CARE S5[address] ADULT; ADULT ADULT PER 15 DAY CARE DAY CARE MINUTES DAY CARE S5100 THE THE SERVICES [address] [place] [address] ADULT; ADULT ADULT PER 15 DAY CARE DAY CARE MINUTES DAY CARE S[address] ADULT; ADULT ADULT PER 15 DAY CARE DAY CARE MINUTES DAY CARE S5[address] ADULT; ADULT ADULT PER 15 DAY CARE DAY CARE MINUTES DAY CARE S5[address] ADULT; ADULT ADULT PER 15 DAY CARE DAY CARE MINUTES DAY CARE S[address] ADULT; ADULT ADULT PER 15 DAY CARE DAY CARE MINUTES DAY CARE S[address] ADULT; ADULT ADULT PER 15 DAY CARE DAY CARE MINUTES RADEX 69812 ARBEN GARDINER FINGR 3 LTH ER MAT MINIMUM 2 ORTHOPAE VIEWS DAY CARE S5[address] ADULT; ADULT ADULT PER 15 DAY CARE DAY CARE MINUTES DAY CARE S5[address] ADULT; ADULT ADULT PER 15 DAY CARE DAY CARE MINUTES DAY CARE S[address] ADULT; ADULT ADULT PER 15 DAY CARE DAY CARE MINUTES DAY CARE S[address] ADULT; ADULT ADULT PER 15 DAY CARE DAY CARE MINUTES DAY CARE S5[address] ADULT; ADULT ADULT PER 15 [place] [address] [facility] 3 CANDACE [facility] CRUZ ARROYO COLLECTIO [address] [facility] 3 [facility]ACEKASH [facility] FT VENIPUNCT CRUZ CRUZ URE DAY CARE S[address] ADULT; ADULT ADULT PER 15 DAY CARE DAY CARE MINUTES DAY CARE S[address] ADULT; ADULT ADULT PER 15 DAY CARE DAY CARE MINUTES DAY CARE S5[address] ADULT; ADULT ADULT PER 15 DAY CARE DAY CARE MINUTES DAY CARE S5[address] ADULT; ADULT ADULT PER 15 DAY CARE DAY CARE MINUTES ANES 15664 INDEPENDE MASROOR ARTHRS/EN 3 NT ALA DSCPY ANESTHESI DSTL OLOGIST RADIUS ULNA/WRIS T/HAND PRQ SKEL 94559 ARBEN GARDINER FIXJ DSTL 3 LTH ER MAT PHLNGL ORTHOPAE FX FNGR/THMB EA DAY CARE S[address] ADULT; ADULT ADULT PER 15 DAY CARE DAY CARE MINUTES DAY CARE S5[address] ADULT; ADULT ADULT PER 15 DAY CARE DAY CARE MINUTES HEMOGLOBI [address] N 3 CANDACE MARIA GLYCOSYLA JERI A1C PHYSICIAN PHYSICIAN S S INFLUENZA 15[address] ST AN VACC 3 CANDACE TILLMAN CHLOE IIV3 SPLIT PHYSICIAN VIRUS S PRSRV FREE ID NONEMERGE A0100 [employer]K[facility] [employer] NCY 3 INC TRANSPORT TRANSPORT REGION 9 ATION CO ATION; L TAXI DAY CARE S5[address] ADULT; ADULT ADULT PER 15 DAY CARE DAY CARE MINUTES DAY CARE S5[address] ADULT; ADULT ADULT PER 15 DAY CARE DAY CARE MINUTES NONEMERGE A0100 LKLP CAC [facility] NCY 3 INC TRANSPORT TRANSPORT REGION 9 ATION CO ATION; L TAXI RADEX 43502 ARBEN GARDINER FINGR 3 LTH ER MAT MINIMUM 2 ORTHOPAE VIEWS DAY CARE S[address] ADULT; ADULT ADULT PER 15 DAY CARE DAY CARE MINUTES DAY CARE S5[address] ADULT; ADULT ADULT PER 15 DAY CARE DAY CARE MINUTES DAY CARE S5[address] ADULT; ADULT ADULT PER 15 DAY CARE DAY CARE MINUTES DAY CARE S5[address] ADULT; ADULT ADULT PER 15 DAY CARE DAY CARE MINUTES DAY CARE S[address] ADULT; ADULT ADULT PER 15 DAY CARE DAY CARE MINUTES DAY CARE S[address] ADULT; ADULT ADULT PER 15 DAY CARE DAY CARE MINUTES DAY CARE S5[address] ADULT; ADULT ADULT PER 15 DAY CARE DAY CARE MINUTES DAY CARE S5100 THE THE SERVICES 3 [facility] ADULT; ADULT ADULT PER 15 DAY CARE DAY CARE MINUTES GROUND A0425 VICTORIA VICTORIA MILEAGE 3 CO CO PER AMBULANCE AMBULANCE STATUTE TAXIN TAXIN MILE ECG [address] ST ANNANNOLD ROUTINE 3 CANDACE PEG ECG W/LEAST PHYSICIAN 12 LDS S EKG I&[place] [address] RADIOLOGY VISHAL HEAD/BRAI 3 HARISH N W/O ASSOCIATE CONTRAST S OF NOTH MATERIAL RADIOLOGI 12089 RADIOLOGY VISHAL C EXAM 3 HARISH CHEST 2 ASSOCIATE VIEWS S OF NOTH FRONTAL&L ATERAL AMB A0427 VICTORIA VICTORIA SERVICE 3 CO CO ALS AMBULANCE AMBULANCE EMERGENCY TAXIN TAXIN TRANSPORT LEVEL 1 DAY CARE S5100 THE THE SERVICES [address] [place] [address] ADULT; ADULT ADULT PER 15 DAY CARE DAY CARE MINUTES DAY CARE S5100 THE THE SERVICES [address] [place] [address] ADULT; ADULT ADULT PER 15 DAY CARE DAY CARE MINUTES DAY CARE S5100 THE THE SERVICES [address] [place] [address] ADULT; ADULT ADULT PER 15 DAY CARE DAY CARE MINUTES DAY CARE S5100 THE THE SERVICES [address] [place] [address] ADULT; ADULT ADULT PER 15 DAY CARE DAY CARE MINUTES DAY CARE S[address] ADULT; ADULT ADULT PER 15 DAY CARE DAY CARE MINUTES DAY CARE S[address] ADULT; ADULT ADULT PER 15 DAY CARE DAY CARE MINUTES DAY CARE S5[address] ADULT; ADULT ADULT PER 15 DAY CARE DAY CARE MINUTES GROUND A0425 VICTORIA VICTORIA MILEAGE 3 CO CO PER AMBULANCE AMBULANCE STATUTE TAXIN TAXIN MILE AMB A0427 VICTORIA VICTORIA SERVICE 3 CO CO ALS AMBULANCE AMBULANCE EMERGENCY [place] [address] RADIOLOGY HAMZAH HEAD/BRAI 3 TUS N W/O ASSOCIATE CONTRAST S OF NOTH MATERIAL ECG [address]22 ST [facility] NIV ROUTINE 3 CANDACE ECG W/LEAST PHYSICIAN 12 LDS S EKG I&R ONLY DAY CARE S5[address] ADULT; ADULT ADULT PER 15 DAY CARE DAY CARE MINUTES DAY CARE S5[address] ADULT; ADULT ADULT PER 15 DAY CARE DAY CARE MINUTES DAY CARE S[address] ADULT; ADULT ADULT PER 15 DAY CARE DAY CARE MINUTES DAY CARE S5100 THE THE SERVICES [address] [place] [address] ADULT; ADULT ADULT PER 15 DAY CARE DAY CARE MINUTES DAY CARE S5100 THE THE SERVICES [address] [place] [address] ADULT; ADULT ADULT PER 15 DAY CARE DAY CARE MINUTES CLTX DSTL 84554 [facility] PHLNGL 3 LTH ER MAT FX ORTHOPAE FNGR/THMB W/O MANJ EA NONEMERGE A0100 LKLP CAC [facility] NCY 3 INC TRANSPORT TRANSPORT REGION 9 ATION CO ATION; L TAXI DAY CARE S[address] ADULT; ADULT ADULT PER 15 DAY CARE DAY CARE MINUTES DAY CARE S5[address] ADULT; ADULT ADULT PER 15 DAY CARE DAY CARE MINUTES DAY CARE S[address] ADULT; ADULT ADULT PER 15 DAY CARE DAY CARE MINUTES DAY CARE S[address] ADULT; ADULT ADULT PER 15 DAY CARE DAY CARE MINUTES DAY CARE S[address] ADULT; ADULT ADULT PER 15 DAY CARE DAY CARE MINUTES DAY CARE S[address] ADULT; ADULT ADULT PER 15 DAY CARE DAY CARE MINUTES GROUND A0425 [facility] MILEAGE 3 AMBULETTE AMBULETTE PER AND AND STATUTE AMBUL AMBUL MILE AMBULANCE A0429 [facility] SERVICE 3 AMBULETTE AMBULETTE BLS AND AND EMERGENCY AMBUL AMBUL TRANSPORT RADEX 09766 RADIOLOGY [place] [facility] 3 LYUBOV MINIMUM 3 ASSOCIATE VIEWS S OF [facility] DAY CARE S[address] ADULT; ADULT ADULT PER 15 DAY CARE DAY CARE MINUTES DAY CARE S5100 THE THE SERVICES 3 [facility] ADULT; ADULT ADULT PER 15 DAY CARE DAY CARE MINUTES DAY CARE S5100 THE THE SERVICES 3 [facility] ADULT; ADULT ADULT PER 15 DAY CARE DAY CARE MINUTES DAY CARE S5100 THE THE SERVICES 3 [facility] ADULT; ADULT ADULT PER 15 DAY CARE DAY CARE MINUTES DAY CARE S5100 THE THE SERVICES 3 [facility] ADULT; ADULT ADULT PER 15 DAY CARE DAY CARE MINUTES DAY CARE S5100 THE THE SERVICES 3 [facility] ADULT; ADULT ADULT PER 15 DAY CARE DAY CARE MINUTES DAY CARE S5100 THE THE SERVICES 3 [facility] ADULT; ADULT ADULT PER 15 DAY CARE DAY CARE MINUTES DAY CARE S5100 THE THE SERVICES 3 [facility] ADULT; ADULT ADULT PER 15 DAY CARE DAY CARE MINUTES DAY CARE S5100 THE THE SERVICES [address] [place] [address] ADULT; ADULT ADULT PER 15 DAY CARE DAY CARE MINUTES DAY CARE S5100 THE THE SERVICES [address] [place] [address] ADULT; ADULT ADULT PER 15 DAY CARE DAY CARE MINUTES DAY CARE S5100 THE THE SERVICES [address] [place] [address] ADULT; ADULT ADULT PER 15 DAY CARE DAY CARE MINUTES DAY CARE S5100 THE THE SERVICES [address] [place] [address] ADULT; ADULT ADULT PER 15 DAY CARE DAY CARE MINUTES DAY CARE S[address] ADULT; ADULT ADULT PER 15 DAY CARE DAY CARE MINUTES DAY CARE S[address] ADULT; ADULT ADULT PER 15 DAY CARE DAY CARE MINUTES DAY CARE S[address] ADULT; ADULT ADULT PER 15 DAY CARE DAY CARE MINUTES DAY CARE S5100 THE THE SERVICES [address] [place] [address] ADULT; ADULT ADULT PER 15 DAY CARE DAY CARE MINUTES DAY CARE S5100 THE THE SERVICES 3 [facility] ADULT; ADULT ADULT PER 15 DAY CARE DAY CARE MINUTES DAY CARE S5100 THE THE SERVICES 3 [facility] ADULT; ADULT ADULT PER 15 DAY CARE DAY CARE MINUTES DAY CARE S5100 THE THE SERVICES 3 [facility] ADULT; ADULT ADULT PER 15 DAY CARE DAY CARE MINUTES DAY CARE S[address] ADULT; ADULT ADULT PER 15 DAY CARE DAY CARE MINUTES GROUND A0425 VICTORIA VICTORIA MILEAGE 3 CO CO PER AMBULANCE AMBULANCE STATUTE TAXIN TAXIN MILE ECG 40045 LEONEL COBOS ROUTINE 3 EMERGENCY ECG SERVICES W/LEAST 12 LDS I&R ONLY AMB A0427 VICTORIA VICTORIA SERVICE 3 CO CO ALS AMBULANCE AMBULANCE EMERGENCY TAXIN TAXIN TRANSPORT LEVEL 1 DAY CARE S[address] ADULT; ADULT ADULT PER 15 DAY CARE DAY CARE MINUTES DAY CARE S5100 THE THE SERVICES [address] [place] [address] ADULT; ADULT ADULT PER 15 DAY CARE DAY CARE MINUTES DAY CARE S[address] ADULT; ADULT ADULT PER 15 DAY CARE DAY CARE MINUTES DAY CARE S[address] ADULT; ADULT ADULT PER 15 DAY CARE DAY CARE MINUTES DAY CARE S[address] ADULT; ADULT ADULT PER 15 DAY CARE DAY CARE MINUTES DAY CARE S[address] ADULT; ADULT ADULT PER 15 DAY CARE DAY CARE MINUTES DAY CARE S[address] ADULT; ADULT ADULT PER 15 DAY CARE DAY CARE MINUTES GROUND A0425 VICTORIA VICTORIA MILEAGE 3 CO CO PER AMBULANCE AMBULANCE STATUTE TAXIN TAXIN MILE AMBULANCE A0429 VICTORIA VICTORIA SERVICE 3 CO CO BLS AMBULANCE AMBULANCE EMERGENCY TAXIN TAXIN TRANSPORT DAY CARE S[address] ADULT; ADULT ADULT PER 15 DAY CARE DAY CARE MINUTES DAY CARE S5100 THE THE SERVICES [address] [place] [address] ADULT; ADULT ADULT PER 15 DAY CARE DAY CARE MINUTES DAY CARE S[address] ADULT; ADULT ADULT PER 15 DAY CARE DAY CARE MINUTES DAY CARE S[address] ADULT; ADULT ADULT PER 15 DAY CARE DAY CARE MINUTES DAY CARE S[address] ADULT; ADULT ADULT PER 15 DAY CARE DAY CARE MINUTES DAY CARE S5100 THE THE SERVICES 3 [facility] ADULT; ADULT ADULT PER 15 DAY CARE DAY CARE MINUTES DAY CARE S5100 THE THE SERVICES 3 [facility] ADULT; ADULT ADULT PER 15 DAY CARE DAY CARE MINUTES DAY CARE S5100 THE THE SERVICES 3 [facility] ADULT; ADULT ADULT PER 15 DAY CARE DAY CARE MINUTES DAY CARE S5100 THE THE SERVICES 3 [facility] ADULT; ADULT ADULT PER 15 DAY CARE DAY CARE MINUTES DAY CARE S5100 THE THE SERVICES 3 [facility] ADULT; ADULT ADULT PER 15 DAY CARE DAY CARE MINUTES GROUND A0425 VICTORIA VICTORIA MILEAGE 3 CO CO PER AMBULANCE AMBULANCE STATUTE TAXIN TAXIN MILE AMB A0427 VICTORIA VICTORIA SERVICE 3 CO CO ALS AMBULANCE AMBULANCE EMERGENCY TAXIN TAXIN TRANSPORT LEVEL 1 ECG 19199 [facility] ROUTINE 3 CANDACE PEG ECG W/LEAST PHYSICIAN 12 LDS S EKG I&R ONLY DAY CARE S5100 THE THE SERVICES [address] [place] [address] ADULT; ADULT ADULT PER 15 DAY CARE DAY CARE MINUTES DAY CARE S[address] ADULT; ADULT ADULT PER 15 DAY CARE DAY CARE MINUTES DAY CARE S[address] ADULT; ADULT ADULT PER 15 DAY CARE DAY CARE MINUTES DAY CARE S[address] ADULT; ADULT ADULT PER 15 DAY CARE DAY CARE MINUTES DAY CARE S[address] ADULT; ADULT ADULT PER 15 DAY CARE DAY CARE MINUTES DAY CARE S5100 THE THE SERVICES [address] [place] [address] ADULT; ADULT ADULT PER 15 DAY CARE DAY CARE MINUTES DAY CARE S5100 THE THE SERVICES [address] [place] [address] ADULT; ADULT ADULT PER 15 DAY CARE DAY CARE MINUTES DAY CARE S[address] ADULT; ADULT ADULT PER 15 DAY CARE DAY CARE MINUTES DAY CARE S5100 THE THE SERVICES [address] [place] [address] ADULT; ADULT ADULT PER 15 DAY CARE DAY CARE MINUTES SBSQ 71585 [facility] 3 CANDACE CARE/DAY 25 PHYSICIAN MINUTES S CRITICAL 87314 [facility] CARE ILL/INJUR PHYS ED NORTHERN PATIENT INIT 30-74 MIN ECG 90017 [facility] ROUTINE 3 CANDACE GAR ECG W/LEAST PHYSICIAN 12 LDS S EKG I&[place] ONLY [place] [address]0007 RADIOLOGY REN HEAD/BRAI 3 III LIANA N W/O ASSOCIATE CONTRAST S OF NOT MATERIAL INITIAL 11682 [facility] 3 CANDACE CARE/DAY 70 PHYSICIAN MINUTES S DAY CARE S5100 THE THE SERVICES [address] [place] [address] ADULT; ADULT ADULT PER 15 DAY CARE DAY CARE MINUTES DAY CARE S[address] ADULT; ADULT ADULT PER 15 DAY CARE DAY CARE MINUTES DAY CARE S[address] ADULT; ADULT ADULT PER 15 DAY CARE DAY CARE MINUTES DAY CARE S5100 THE THE SERVICES [address] [place] [address] ADULT; ADULT ADULT PER 15 DAY CARE DAY CARE MINUTES DAY CARE S5100 THE THE SERVICES [address] [place] [address] ADULT; ADULT ADULT PER 15 DAY CARE DAY CARE MINUTES DAY CARE S5100 THE THE SERVICES [address] [place] [address] ADULT; ADULT ADULT PER 15 DAY CARE DAY CARE MINUTES DAY CARE S[address] ADULT; ADULT ADULT PER 15 DAY CARE DAY CARE MINUTES DAY CARE S5100 THE THE SERVICES [address] [place] [address] ADULT; ADULT ADULT PER 15 DAY CARE DAY CARE MINUTES DAY CARE S5100 THE THE SERVICES [address] [place] [address] ADULT; ADULT ADULT PER 15 DAY CARE DAY CARE MINUTES DAY CARE S5100 THE THE SERVICES [address] [place] [address] ADULT; ADULT ADULT PER 15 DAY CARE DAY CARE MINUTES DAY CARE S5100 THE THE SERVICES [address] [place] [address] ADULT; ADULT ADULT PER 15 DAY CARE DAY CARE MINUTES DAY CARE S[address] ADULT; ADULT ADULT PER 15 DAY CARE DAY CARE MINUTES DAY CARE S[address] ADULT; ADULT ADULT PER 15 DAY CARE DAY CARE MINUTES NONEMERGE A0100 [facility] [place] [facility] 3 INC TRANSPORT TRANSPORT REGION 9 ATION CO ATION; L TAXI DAY CARE S[address] ADULT; ADULT ADULT PER 15 DAY CARE DAY CARE MINUTES DAY CARE S5100 [address] ADULT; ADULT ADULT PER 15 DAY CARE DAY CARE MINUTES DAY CARE S5100 THE THE SERVICES [address] [place] [address] ADULT; ADULT ADULT PER 15 DAY CARE DAY CARE MINUTES DAY CARE S5100 THE THE SERVICES [address] [place] [address] ADULT; ADULT ADULT PER 15 DAY CARE DAY CARE MINUTES DAY CARE S5100 THE THE SERVICES [address] [place] [address] ADULT; ADULT ADULT PER 15 DAY CARE DAY CARE MINUTES DAY CARE S5100 [address] ADULT; ADULT ADULT PER 15 DAY CARE DAY CARE MINUTES DAY CARE S5100 [address] ADULT; ADULT ADULT PER 15 DAY CARE DAY CARE MINUTES DAY CARE S5100 THE THE SERVICES [address] [place] [address] ADULT; ADULT ADULT PER 15 DAY CARE DAY CARE MINUTES DAY CARE S5100 THE THE SERVICES [address] [place] [address] ADULT; ADULT ADULT PER 15 DAY CARE DAY CARE MINUTES DAY CARE S[address] ADULT; ADULT ADULT PER 15 DAY CARE DAY CARE MINUTES DAY CARE S[address] ADULT; ADULT ADULT PER 15 DAY CARE DAY CARE MINUTES DAY CARE S[address] ADULT; ADULT ADULT PER 15 DAY CARE DAY CARE MINUTES DAY CARE S[address] ADULT; ADULT ADULT PER 15 DAY CARE DAY CARE MINUTES DAY CARE S[address] ADULT; ADULT ADULT PER 15 DAY CARE DAY CARE MINUTES DAY CARE S[address] ADULT; ADULT ADULT PER 15 DAY CARE DAY CARE MINUTES DAY CARE S5100 THE THE SERVICES [address] [place] [address] ADULT; ADULT ADULT PER 15 DAY CARE DAY CARE MINUTES DAY CARE S[address] ADULT; ADULT ADULT PER 15 DAY CARE DAY CARE MINUTES DAY CARE S[address] ADULT; ADULT ADULT PER 15 DAY CARE DAY CARE MINUTES DAY CARE S[address] ADULT; ADULT ADULT PER 15 DAY CARE DAY CARE MINUTES DAY CARE S[address] ADULT; ADULT ADULT [place] [id number] [place] [facility] W/[place] [address] [facility] THORACIC 3 [facility] SPINE W/O INC INC CONTRAST MATERIAL 3D 97429 [facility] RENDERING 3 [facility] INC INC W/INTERP& [place] [address] [facility] HEAD/BRAI 3 [facility] N W/O INC INC CONTRAST MATERIAL CT LUMBAR 66432 [facility] SPINE 3 [facility] W/O INC INC CONTRAST MATERIAL GROUND A0425 VICTORIA VICTORIA MILEAGE 3 CO CO PER AMBULANCE AMBULANCE STATUTE TAXIN TAXIN MILE AMBULANCE A0429 VICTORIA VICTORAI SERVICE 3 CO CO BLS AMBULANCE AMBULANCE EMERGENCY TAXIN TAXIN TRANSPORT DAY CARE S5100 THE [address] ADULT; ADULT ADULT PER 15 DAY CARE DAY CARE MINUTES DAY CARE S5100 THE THE [address] ADULT; ADULT ADULT PER 15 DAY CARE DAY CARE MINUTES DAY CARE S5100 THE THE [address] ADULT; ADULT ADULT PER 15 DAY CARE DAY CARE MINUTES DAY CARE S5100 THE [address] ADULT; ADULT ADULT PER 15 DAY CARE DAY CARE MINUTES DAY CARE S5100 THE [address] ADULT; ADULT ADULT PER 15 DAY CARE DAY CARE MINUTES GROUND A0425 VICTORIA VICTORIA MILEAGE 3 CO CO PER AMBULANCE AMBULANCE STATUTE TAXIN TAXIN MILE AMB A0427 VICTORIA VICTORIA SERVICE 3 CO CO ALS AMBULANCE AMBULANCE EMERGENCY TAXIN TAXIN TRANSPORT LEVEL 1 DAY CARE S5100 THE [address] ADULT; ADULT ADULT PER 15 DAY CARE DAY CARE MINUTES DAY CARE S5100 THE [address] ADULT; ADULT ADULT PER 15 DAY CARE DAY CARE MINUTES COLLECTIO [address] N VENOUS 3 CANDACE MARIA BLOOD FT FT [place]IP[place] [address] PROLACTIN 3 CANDACE CANDACE FT FT CRUZ [place] DAY CARE S5100 THE [address] ADULT; ADULT ADULT PER 15 DAY CARE DAY CARE MINUTES DAY CARE S5100 THE [address] ADULT; ADULT ADULT PER 15 DAY CARE DAY CARE MINUTES DAY CARE S5100 THE [address] ADULT; ADULT ADULT PER 15 DAY CARE DAY CARE MINUTES DAY CARE S5100 THE [address] ADULT; ADULT ADULT PER 15 DAY CARE DAY CARE MINUTES DAY CARE S5100 THE [address] ADULT; ADULT ADULT PER 15 DAY CARE DAY CARE MINUTES DAY CARE S5100 THE [address] ADULT; ADULT ADULT PER 15 DAY CARE DAY CARE MINUTES PREOP [address] PLACEMENT 3 CANDACE MARIA FT FT LOCALIZAT CRUZ [place] ION WIRE BREAST EXC [address] CYST/ABER 3 CANDACE MARIA RANT FT FT BREAST CRUZ [facility] TISSUE OPEN 1/> LESION RADIOLOGI [address] EXAMINATI ASSOCIATE ON S OF [facility] SURGICAL SPECIMEN ANES [address] INTEG 3 CANDACE MARIA EXTREMITI FT FT ES ANT CRUZ [place] TRUNK & PERINEUM NOS EXC [address] ST [place] BREAST 3 CANDACE HEI LES PREOP PLMT RAD PHYSICIAN MARKER S OPEN [address] [place] [address] SURG 3 CANDACE MARIA PATHOLOGY FT FT CRUZ [facility] GROSS&SAMANTHA ROSCOPIC EXAM MAMMOGRAP [address] HIC GID 3 CANDACE MARIA NEEDLE FT FT PLACEMENT CRUZ [facility] T BREAST DAY CARE S[address] [facility] ADULT; ADULT ADULT PER 15 DAY CARE DAY CARE MINUTES DAY CARE S5100 THE THE SERVICES [address] [place] [address] ADULT; ADULT ADULT PER 15 DAY CARE DAY CARE MINUTES DAY CARE S5100 THE [address] ADULT; ADULT ADULT PER 15 DAY CARE DAY CARE MINUTES ECG [address] ROUTINE 3 CANDACE CANDACE ECG FT FT W/LEAST CRUZ CRUZ 12 LDS TRCG ONLY W/O I&R NONEMERGE A0100 LK[facility] 3 COMMUNITY TRANSPORT TRANSPORT ACTION ATION CO ATION; L TAXI ECG [address] [facility] CANDACE PEG ECG W/LEAST PHYSICIAN 12 LDS S EKG I&R ONLY DAY CARE S5100 THE [address] ADULT; ADULT ADULT PER 15 DAY CARE DAY CARE MINUTES DAY CARE S5[address] ADULT; ADULT ADULT PER 15 DAY CARE DAY CARE MINUTES DAY CARE S5100 THE THE SERVICES [address] [place] [address] ADULT; ADULT ADULT PER 15 DAY CARE DAY CARE MINUTES DAY CARE S[address] ADULT; ADULT ADULT PER 15 DAY CARE DAY CARE MINUTES DAY CARE S5[address] ADULT; ADULT ADULT PER 15 DAY CARE DAY CARE MINUTES NONEMERGE A0100 LK [facility] NCY 3 COMMUNITY TRANSPORT TRANSPORT ACTION ATION CO ATION; L TAXI DAY CARE S5[address] ADULT; ADULT ADULT PER 15 DAY CARE DAY CARE MINUTES DAY CARE S5100 [address] ADULT; ADULT ADULT PER 15 DAY CARE DAY CARE MINUTES DAY CARE S[address] ADULT; ADULT ADULT PER 15 DAY CARE DAY CARE MINUTES DAY CARE S[address] ADULT; ADULT ADULT PER 15 DAY CARE DAY CARE MINUTES DAY CARE S[address] ADULT; ADULT ADULT PER 15 DAY CARE DAY CARE MINUTES DAY CARE S5[address] ADULT; ADULT ADULT PER 15 DAY CARE DAY CARE MINUTES DAY CARE S[address] ADULT; ADULT ADULT PER 15 DAY CARE DAY CARE MINUTES DAY CARE S[address] ADULT; ADULT ADULT PER 15 DAY CARE DAY CARE MINUTES DAY CARE S[address] ADULT; ADULT ADULT PER 15 DAY CARE DAY CARE MINUTES DAY CARE S[address] ADULT; ADULT ADULT PER 15 DAY CARE DAY CARE MINUTES DAY CARE S[address] ADULT; ADULT ADULT PER 15 DAY CARE DAY CARE MINUTES DAY CARE S[address] ADULT; ADULT ADULT PER 15 DAY CARE DAY CARE MINUTES COMPUTER- 64945 RADIOLOGY [place] AIDED 3 JESSICA DETECTION ASSOCIATE DX S OF [facility] MAMMOGRAP HY MAMMOGRAP [address] HY 3 CANDACE JACOBSTH BILATERAL FT FT [facility] DIAGNOSTI G0204 RADIOLOGY LOVETT C 3 JESSICA MAMMOGRAP ASSOCIATE HY INCL S OF [facility] CAD WHEN PERF; BILAT DAY CARE S[address] ADULT; ADULT ADULT PER 15 DAY CARE DAY CARE MINUTES DAY CARE S5[address] ADULT; ADULT ADULT PER 15 DAY CARE DAY CARE MINUTES DAY CARE S[address] ADULT; ADULT ADULT PER 15 DAY CARE DAY CARE MINUTES DAY CARE S[address] ADULT; ADULT ADULT PER 15 DAY CARE DAY CARE MINUTES DAY CARE S[address] ADULT; ADULT ADULT PER 15 DAY CARE DAY CARE MINUTES DAY CARE S[address] ADULT; ADULT ADULT PER 15 DAY CARE DAY CARE MINUTES DAY CARE S[address] ADULT; ADULT ADULT PER 15 DAY CARE DAY CARE MINUTES DAY CARE S[address] ADULT; ADULT ADULT PER 15 DAY CARE DAY CARE MINUTES DAY CARE S5100 THE THE SERVICES 3 [facility] ADULT; ADULT ADULT PER 15 DAY CARE DAY CARE MINUTES DAY CARE S5100 THE THE SERVICES 3 [facility] ADULT; ADULT ADULT PER 15 DAY CARE DAY CARE MINUTES DAY CARE S5100 THE THE SERVICES 3 [facility] ADULT; ADULT ADULT PER 15 DAY CARE DAY CARE MINUTES DAY CARE S5100 THE THE SERVICES 3 [facility] ADULT; ADULT ADULT PER 15 DAY CARE DAY CARE MINUTES DAY CARE S5100 THE THE SERVICES 3 [facility] ADULT; ADULT ADULT PER 15 DAY CARE DAY CARE MINUTES DAY CARE S5100 THE THE SERVICES 3 [facility] ADULT; ADULT ADULT PER 15 DAY CARE DAY CARE MINUTES DAY CARE S5100 THE THE SERVICES [address] [place] [address] ADULT; ADULT ADULT PER 15 DAY CARE DAY CARE MINUTES DAY CARE S5100 THE THE SERVICES 3 [facility] ADULT; ADULT ADULT PER 15 DAY CARE DAY CARE MINUTES DAY CARE S5100 THE THE SERVICES [address] [place] [address] ADULT; ADULT ADULT PER 15 DAY CARE DAY CARE MINUTES DAY CARE S5100 THE THE SERVICES 3 [facility] ADULT; ADULT ADULT PER 15 DAY CARE DAY CARE MINUTES DAY CARE S5100 THE THE SERVICES [address] [place] [address] ADULT; ADULT ADULT PER 15 DAY CARE DAY CARE MINUTES DAY CARE S[address] ADULT; ADULT ADULT PER 15 DAY CARE DAY CARE MINUTES DAY CARE S5100 THE THE SERVICES 3 [facility] ADULT; ADULT ADULT PER 15 DAY CARE DAY CARE MINUTES DAY CARE S5100 THE THE SERVICES 3 [facility] ADULT; ADULT ADULT PER 15 DAY CARE DAY CARE MINUTES DAY CARE S5100 THE THE SERVICES 3 [facility] ADULT; ADULT ADULT PER 15 DAY CARE DAY CARE MINUTES DAY CARE S5100 THE THE SERVICES [address] [place] [address] ADULT; ADULT ADULT PER 15 DAY CARE DAY CARE MINUTES DAY CARE S5100 THE THE SERVICES 3 [facility] ADULT; ADULT ADULT PER 15 DAY CARE DAY CARE MINUTES DAY CARE S5100 THE THE SERVICES [address] [place] [address] ADULT; ADULT ADULT PER 15 DAY CARE DAY CARE MINUTES DAY CARE S5100 THE THE SERVICES 3 [facility] ADULT; ADULT ADULT PER 15 DAY CARE DAY CARE MINUTES DAY CARE S5100 THE THE SERVICES [address] [place] [address] ADULT; ADULT ADULT PER 15 DAY CARE DAY CARE MINUTES DAY CARE S[address] ADULT; ADULT ADULT PER 15 DAY CARE DAY CARE MINUTES DAY CARE S[address] ADULT; ADULT ADULT PER 15 DAY CARE DAY CARE MINUTES DAY CARE S5100 THE THE SERVICES [address] [place] [address] ADULT; ADULT ADULT PER 15 DAY CARE DAY CARE MINUTES DAY CARE S[address] ADULT; ADULT ADULT PER 15 DAY CARE DAY CARE MINUTES DAY CARE S[address] ADULT; ADULT ADULT PER 15 DAY CARE DAY CARE MINUTES DAY CARE S[address] ADULT; ADULT ADULT PER 15 DAY CARE DAY CARE MINUTES DAY CARE S[address] ADULT; ADULT ADULT PER 15 DAY CARE DAY CARE MINUTES DAY CARE S[address] ADULT; ADULT ADULT PER 15 DAY CARE DAY CARE MINUTES DAY CARE S[address] ADULT; ADULT ADULT PER 15 DAY CARE DAY CARE MINUTES DAY CARE S[address] ADULT; ADULT ADULT PER 15 DAY CARE DAY CARE MINUTES DAY CARE S[address] ADULT; ADULT ADULT PER 15 DAY CARE DAY CARE MINUTES DAY CARE S[address] ADULT; ADULT ADULT PER 15 DAY CARE DAY CARE MINUTES DAY CARE S[address] ADULT; ADULT ADULT PER 15 DAY CARE DAY CARE MINUTES DAY CARE S[address] ADULT; ADULT ADULT PER 15 DAY CARE DAY CARE MINUTES SKIN TEST 75052 [facility] 3 CANDACE TUBERCULO SIS PHYSICIAN INTRADERM S AL DAY CARE S[address] ADULT; ADULT ADULT PER 15 DAY CARE DAY CARE MINUTES DAY CARE S5100 THE THE SERVICES 3 [facility] ADULT; ADULT ADULT PER 15 DAY CARE DAY CARE MINUTES DAY CARE S5100 THE THE SERVICES 3 [facility] ADULT; ADULT ADULT PER 15 DAY CARE DAY CARE MINUTES AMB A0427 VICTORIA VICTORIA SERVICE 3 CO CO ALS AMBULANCE AMBULANCE EMERGENCY TAXIN TAXIN TRANSPORT LEVEL 1 GROUND A0425 VICTORIA VICTORIA MILEAGE 3 CO CO PER AMBULANCE AMBULANCE STATUTE TAXIN TAXIN MILE DAY CARE S5100 THE THE SERVICES 3 [facility] ADULT; ADULT ADULT PER 15 DAY CARE DAY CARE MINUTES DAY CARE S5100 THE THE SERVICES 3 [facility] ADULT; ADULT ADULT PER 15 DAY CARE DAY CARE MINUTES DAY CARE S5100 THE THE SERVICES 3 [facility] ADULT; ADULT ADULT PER 15 DAY CARE DAY CARE MINUTES DAY CARE S5100 THE THE SERVICES [address] [place] [address] ADULT; ADULT ADULT PER 15 DAY CARE DAY CARE MINUTES DAY CARE S5100 THE THE SERVICES [address] [place] [address] ADULT; ADULT ADULT PER 15 DAY CARE DAY CARE MINUTES DAY CARE S5100 THE THE SERVICES [address] [place] [address] ADULT; ADULT ADULT PER 15 DAY CARE DAY CARE MINUTES DAY CARE S5100 THE THE SERVICES [address] [place] [address] ADULT; ADULT ADULT PER 15 DAY CARE DAY CARE MINUTES DAY CARE S[address] [facility] ADULT; ADULT ADULT PER 15 DAY CARE DAY CARE MINUTES DAY CARE S[address] ADULT; ADULT ADULT PER 15 DAY CARE DAY CARE MINUTES DAY CARE S5100 THE THE SERVICES 3 [facility] ADULT; ADULT ADULT PER 15 DAY CARE DAY CARE MINUTES DAY CARE S5100 THE THE SERVICES 3 [facility] ADULT; ADULT ADULT PER 15 DAY CARE DAY CARE MINUTES DAY CARE S[address] [facility] ADULT; ADULT ADULT PER 15 DAY CARE DAY CARE MINUTES DAY CARE S5100 THE THE SERVICES 3 [facility] ADULT; ADULT ADULT PER 15 DAY CARE DAY CARE MINUTES DAY CARE S5100 THE THE SERVICES 3 [facility] ADULT; ADULT ADULT PER 15 DAY CARE DAY CARE MINUTES DAY CARE S5100 THE THE SERVICES 3 [facility] ADULT; ADULT ADULT PER 15 DAY CARE DAY CARE MINUTES AMB A0427 VICTORIA VICTORIA SERVICE 3 CO CO ALS AMBULANCE AMBULANCE EMERGENCY TAXIN TAXIN TRANSPORT LEVEL 1 GROUND A0425 VICTORIA VICTORIA MILEAGE 3 CO CO PER AMBULANCE AMBULANCE STATUTE TAXIN TAXIN MILE DAY CARE S5100 THE THE SERVICES 3 [facility] ADULT; ADULT ADULT PER 15 DAY CARE DAY CARE MINUTES DAY CARE S5100 THE THE SERVICES 3 [facility] ADULT; ADULT ADULT PER 15 DAY CARE DAY CARE MINUTES DAY CARE S5100 THE THE SERVICES [address] [place] [address] ADULT; ADULT ADULT PER 15 DAY CARE DAY CARE MINUTES DAY CARE S[address] ADULT; ADULT ADULT PER 15 DAY CARE DAY CARE MINUTES DAY CARE S5100 THE THE SERVICES [address] [place] [address] ADULT; ADULT ADULT PER 15 DAY CARE DAY CARE MINUTES DAY CARE S5100 THE THE SERVICES [address] [place] [address] ADULT; ADULT ADULT PER 15 DAY CARE DAY CARE MINUTES DAY CARE S[address] ADULT; ADULT ADULT PER 15 DAY CARE DAY CARE MINUTES DAY CARE S[address] ADULT; ADULT ADULT PER 15 DAY CARE DAY CARE MINUTES [facility] [address]272 UATSDIN CROOKS AIDED 2 MAMMOGRAP MOL DET[place]CTION [place] [address] UATSDIN CROOKS GUIDANCE 2 MAMMOGRAP MOL NEEDLE HY PLACEMENT SERVICES IMG S&[place] [address] CEN[facility] CENTRAL SURG 2 UATSDIN UATSDIN PATHOLOGY HOSP HOSP GROSS&SAMANTHA ROSCOPIC EXAM BREAST 83865 UATSDIN CROOKS BIOPSY 2 MAMMOGRAP MOL VACUUM HY ASSISTED/ SERVICES ROTATING DEVICE IMG GID 55265 UATSDIN CROOKS PLMT MTLC 2 MAMMOGRAP MOL LOCLZJ HY CLIP PRQ SERVICES BRST BX/ASPIR DIAGNOSTI G0204 [facility] CROOKS C 2 MAMMOGRAP MOL MAMMOGRAP HY HY INCL SERVICES CAD WHEN PERF; BILAT US BREAST 99601 UATSDIN CROOKS REAL 2 MAMMOGRAP MOL TIME HY W/IMAGE SERVICES DOCUMENTA TION LOCALIZE 89407 [facility] 2 ELIZABETH MICHAEL SEIZURE NEUROLOGY CABLE/RAD IO EEG/VIDEO LOCALIZE 51585 [facility] 2 ELIZABETH MICHAEL SEIZURE NEUROLOGY CABLE/RAD IO EEG/VIDEO GLUC BLD 68563 [facility] 2 Y Y DEV [facility] CLEARED FDA SPEC HOME USE AMB [...] PER URBAN URBAN STATUTE COGOVT COGOVT MILE ECG 13687 [place] LUCRETIA POOJA ROUTINE 2 MEDICAL ECG SERV W/LEAST FOUNDATIO 12 LDS W/I&R AMB A0427 EARL EARL SERVICE 2 FAYETTE FAYETTE ALS URBAN URBAN EMERGENCY COGOVT COGOVT TRANSPORT LEVEL [address] LUMBAR 37266 [place] GAURAV SPINE 2 MEDICAL ANGELA W/[place] [address] [place] AYOOB AND HEAD/BRAI 2 MEDICAL N W/O SERV CONTRAST FOUNDATIO MATERIAL RADIOLOGI 92607 [place] AYOOB AND C 2 MEDICAL EXAMINATI SERV ON CHE[place] [address] [place]UR[place] THORACIC 2 MEDICAL ANGELA SPINE W/O SERV CONTRAST FOUNDATIO MATERIAL RADEX 34271 [place] AYOOB AND FOOT 2 MEDICAL COMPLETE SERV MINIMUM [address] [place] [address] [place]UR[place] CERVICAL 2 MEDICAL ANGELA SPINE W/O SERV CONTRAST FOUNDATIO MATERIAL AMB [...] EMERGENCY [place] [address] [place] XIMENA JAM HEAD/BRAI 2 MEDICAL N W/[place] [address] [place] ESCOTT HEAD/BRAI 2 MEDICAL EDW N W/O SERV CONTRAST FOUNDATIO MATERIAL ALBUMIN 06770 [facility] SERUM 2 Y Y PLASMA/[facility] OLE BLOOD DRUG 71023 [facility] SCREEN 2 [facility] FREE INJECTION J1200 [facility] 2 Y Y [facility] HCL UP TO 50 MG AMB A0427 EARL EARL SERVICE 2 FAYETTE FAYETTE ALS URBAN URBAN EMERGENCY COGOVT COGOVT TRANSPORT LEVEL 1 GROUND A0425 EARL EARL MILEAGE 2 FAYETTE FAYETTE PER URBAN URBAN STATUTE COGOVT COGOVT MILE INJECTION J0515 [facility] 2 Y [facility] [place] [address] [place] [address] [place]EL[place] CERVICAL 2 MEDICAL RYLIE SPINE W/O SERV CONTRAST FOUNDATIO MATERIAL RADIOLOGI 66570 [place] NICKEL[place] C 2 MEDICAL RYLIE EXAMINATI SERV ON FEMUR FOUNDATIO 2 VIEWS GROUND A0425 EARL EARL MILEAGE 2 FAYETTE FAYETTE PER URBAN URBAN STATUTE COGOVT COGOVT MILE INJECTION J1165 [facility] 2 Y Y PHENYTOIN [facility] SODIUM PER 50 MG INJECTION J2060 [facility] 2 Y Y LORAZEPAM [facility] 2 MG INFUSION J7050 [facility] NORMAL 2 Y Y SALINE [facility] SOLUTION 250 CC DRUG 90087 [facility] SCREEN 2 Y Y QUANTITAT [facility] SWAPNIL PHENYTOIN TOTAL AMB A0427 EARL EARL SERVICE 2 FAYETTE FAYETTE ALS URBAN URBAN EMERGENCY COGOVT COGOVT TRANSPORT LEVEL 1 RADEX HIP 41158 [place] NICKELS 2 MEDICAL RYLIE UNILATERA SERV L FOUNDATIO COMPLETE MINIMUM 2 VIEWS RADIOLOGI 60101 [place]ICK[place] C 2 MEDICAL RYLIE EXAMINATI SERV ON CHEST FOUNDATIO [place] RADIOLOGI 13250 [place]ICKEL[place] C 2 MEDICAL RYLIE EXAMINATI SERV ON KNEE 3 FOUNDATIO VIEWS BASIC 09817 [facility] METABOLIC 2 Y Y PANEL [facility] CALCIUM TOTAL BLOOD 94686 [facility] COUNT 2 Y Y COMPLETE [facility] AUTOMATED RADIOLOGI 52535 [place] NICKEL[place] C 2 MEDICAL RYLIE EXAMINATI SERV ON PELVIS FOUNDATIO 1/2 VIEWS THERAPEUT 64227 [facility] IC 2 Y Y INJECTION [facility] [place] [address] [facility] INFUSION 2 Y Y THERAPY/P [facility] ROPLAXI S /DX 1ST TO 1 HR RADIOLOGI 81453 [place] C 2 MEDICAL RYLIE EXAMINATI SERV ON TIBIA FOUNDATIO & FIBULA 2 VIEWS RADIOLOGI 42723 [place] C EXAM 2 MEDICAL RYLIE CHEST 2 SERV VIEWS FOUNDATIO FRONTAL&L ATERAL AMB A0427 EARL EARL SERVICE 2 FAYETTE FAYETTE ALS URBAN URBAN EMERGENCY COGOVT COGOVT TRANSPORT LEVEL 1 GROUND A0425 EARL EARL MILEAGE 2 FAYETTE FAYETTE PER [facility] [address] [place] FEE DOM DISCHARGE 2 MEDICAL DAY SERV MANAGEMEN FOUNDATIO T 30 MIN/< LOCALIZE 08435 [place] CEREBRAL 2 MEDICAL JOSE MARTIN SEIZURE SERV CABLE/RAD FOUNDATIO IO EEG/VIDEO LOCALIZE 38293 [place] CEREBRAL 2 MEDICAL JOSE MARTIN SEIZURE SERV CABLE/RAD FOUNDATIO IO EEG/VIDEO SBSQ 91062 [place] [facility] 2 MEDICAL CARE/DAY SERV 25 FOUNDATIO MINUTES INITIAL 59411 [facility] 2 MEDICAL CARE/DAY SERV 70 FOUNDATIO MINUTES AMB A0427 EARL EARL SERVICE 2 FAYETTE FAYETTE ALS URBAN URBAN EMERGENCY COGOVT COGOVT TRANSPORT LEVEL 1 GROUND A0425 EARL EARL MILEAGE 2 FAYETTE FAYETTE PER [facility] [address] [place] HEAD/BRAI 2 MEDICAL RYLIE N W/[place] [address] [place] CERVICAL 2 MEDICAL RYLIE SPINE W/O SERV CONTRAST FOUNDATIO MATERIAL ECG 31757 GEILE LOBO GEILE LOBO ROUTINE 1 ECG W/LEAST 12 LDS I&R ONLY AMB A0427 [facility] SERVICE 1 R FIRE R FIRE ALS EMS EMS EMERGENCY TRANSPORT LEVEL 1 GROUND A0425 [facility] MILEAGE 1 R FIRE R FIRE PER EMS EMS STATUTE [facility] [address] [place] HODAN DISCHARGE 1 MEDICAL HENRY DAY SERV MANAGEMEN FOUNDATIO T 30 MIN/< LOCALIZE 37365 [place] BRIANNA CEREBRAL 1 MEDICAL CHINMAY SEIZURE SERV CABLE/RAD FOUNDATIO IO EEG/VIDEO INITIAL 94649 [place] [facility] 1 MEDICAL HENRY CARE/DAY SERV 50 FOUNDATIO MINUTES AMB A0422 [facility] OXY[facility] 1 R FIRE R FIRE SUPPLIES EMS EMS LIFE SUSTAININ G SITUATION ELECTROEN 51550 DK BENS[place] CEPHALOGR 1 MEDICAL JOSE MARTIN AM W/REC SERV AWAKE&ASL FOUNDATIO EEP MRI BRAIN 51822 [place] CENTENO BRAIN 1 MEDICAL HARISH STEM W/O SERV W/CONTRAS FOUNDATIO T MATERIAL GROUND A0425 [facility] MILEAGE 1 R FIRE R FIRE PER EMS EMS STATUTE MILE GROUND A0425 [facility] MILEAGE 1 R FIRE R FIRE PER EMS EMS STATUTE [facility]ITICAL [address] [facility] EMERGENCY ILL/INJUR SERVICES ED PATIENT INIT 30-74 MIN AMB A0422 [facility] OXYGEN&O2 1 R FIRE R FIRE SUPPLIES EMS EMS LIFE SUSTAININ G SITUATION AMB A0427 [facility] SERVICE 1 R FIRE R FIRE ALS EMS EMS EMERGENCY TRANSPORT LEVEL 1 AMB A0427 [facility] SERVICE 1 R FIRE R FIRE ALS EMS EMS EMERGENCY TRANSPORT LEVEL 1 AMB A0422 [facility] OXYGEN&O2 1 R FIRE R FIRE SUPPLIES EMS EMS LIFE SUSTAININ G SITUATION RADIOLOGI 48357 CNTR[facility] [place] C 1 RADIOLOGY OSKAR EXAMINATI ON CHEST SINGLE VIEW FRONTAL ECG 46709 LEONEL KIRANID ROUTINE 1 EMERGENCY AKM ECG SERVICES W/LEAST 12 LDS I&R ONLY GROUND A0425 [facility] MILEAGE 1 R FIRE R FIRE PER EMS EMS STATUTE MILE EXC B9 19250 [place] SHAKEEL LESION 1 MEDICAL CHLOE MRGN XCP SERV SK TG FOUNDATIO S/N/H/F/G 1.1-2.0CM LEVEL III 93103 [facility] TANOUS SURG 1 EDW PATHOLOGY PATHOLOGY ASSOCIAT GROSS&SAMANTHA ROSCOPIC EXAM ANES 87483 [place] BOLDEN GAV INTEG 1 LTH MUSC & ANESTHESI NRV HEAD A PSC NECK&POST ERIOR TRUNK ECG 32644 ALBERTA PINZON ROUTINE 1 REGIONAL REGIONAL ECG MEDICAL MEDICAL W/LEAST CENTE CENTE 12 LDS TRCG ONLY W/O I&R COLLECTIO 90516 ALBERTA PINZON N VENOUS 1 REGIONAL REGIONAL BLOOD MEDICAL MEDICAL VENIPUNCT CENTE CENTE URE BASIC 07135 ALBERTA PINZON METABOLIC 1 REGIONAL REGIONAL PANEL MEDICAL MEDICAL CALCIUM CENTE CENTE TOTAL ALVEOLOPL 07889 ALVARADO I BAUTISTA III ASTY EACH 1 BAUTISTA III LYUBOV QUADRANT PSC N0 3 SPECIFY DEEP D9220 ALVARADO I BAUTISTA III SEDATION/ 1 BAUTISTA III LYUBOV GENERAL PSC N0 3 ANESTHESI A-1ST 30 MINUTES ORTHOPANT 92664 ALVARADO I BAUTISTA III OGRAM 1 BAUTISTA III LYUBOV PSC N0 3 ECG 44132 RAMONA YUN YUN RAMONA ROUTINE 1 MD ECG CONSULTIN W/LEAST G SRV 12 LDS I&R ONLY INITIAL 95470 CARTER MACHADO JUVENTINO INPATIENT 1 CONSULT NEW/ESTAB [place] [address] [place] [address] [facility] [place] SCALF MARII HEAD/BRAI 1 RADIOLOGY N W/O CONTRAST MATERIAL BLOOD 39222 [facility] UNIV[facility] COUNT 1 Y Y COMPLETE [facility] AUTOMATED IRON 20157 [facility] BINDING 1 Y Y CAPACITY [facility] [place] [address] [facility] FERRITIN 1 Y Y [facility] LIPID 93573 [facility] PANEL 1 Y Y [facility] DRUG 02181 [facility] T[facility] COLLECTIO 78845 [facility] UN[facility] N VENOUS 1 Y Y BLOOD [facility] VENIPUNCT URE CHROMATOG 66280 [facility] HUMBERTO 1 Y Y [facility] COLUMN [place] [address] [facility] THYROID 1 Y Y STIMULATI [facility] NG HORMONE TSH COMPREHEN 26633 [facility] SIVE 1 Y Y METABOLIC [facility] [place] [address] [facility] OLSEN HEAD/BRAI 1 RADIOLOGY N W/[place] [address] AL[facility]ERTA ALBERTA ABDOMEN 1 REGIONAL REGIONAL W/O & MEDICAL MEDICAL W/CONTRAS CENTE CENTE T MATERIAL Encounters Encounter Start End Date Code Location Performer Type Date EMERGENCY 72914 [facility] DEPT 7 7 [facility] HIGH SEVERITY& THREAT [facility] EMERGENCY 44512 BRIAN JUAN DEPT 7 7 [facility] HIGH SEVERITY& THREAT [facility] EMERGENCY 43980 [facility] 7 7 [facility] T VISIT LOW/MODER SEVERITY EMERGENCY 60609 Jeffrey MCCARTHY 7 PHYSICIAN JR [facility] T VISIT MODERATE SEVERITY [facility] - [facility] 7 [facility] - 7 7 [facility] T EMERGENCY 07930 KE 7 7 [facility] T VISIT MODERATE SEVERITY EMERGENCY 27031 BRIAN OLMEDO DEPT 7 7 PHYSICIAN VISIT S, PLLC HIGH SEVERITY& THREAT FUNCJ EMERGENCY 29077 BRIAN PEOPLES DEPT 7 7 PHYSICIAN VISIT S, PLLC HIGH SEVERITY& THREAT [facility] KE - 7 7 [facility] T EMERGENCY 73330 KE 7 7 [facility] T VISIT HIGH/URGE NT SEVERITY HOSPITAL KE - 7 7 [facility] T HOSPITAL KE - 7 7 [facility] T OFFICE 60845 [facility] OUTPATIEN 7 7 PHYSICIAN T VISIT S GROUP 25 MINUTES OFFICE 21294 [facility] FRAN OUTPATIEN 7 7 PHYSICIAN T NEW 20 S GROUP MINUTES EMERGENCY 61907 BRIAN OLMEDO 7 7 PHYSICIAN DEPARTMEN S, PLLC T VISIT HIGH/URGE NT SEVERITY EMERGENCY 17490 BRIAN FIELDS DEPT 6 6 PHYSICIAN VISIT S, PLLC HIGH SEVERITY& THREAT FUNCJ OFFICE 12070 [facility] 6 Y T VISIT 5 HOSPITAL MINUTES HOSPITAL UNIVERSIT - 6 6 Y OUTPATIEN HOSPITAL T EMERGENCY 20903 BRIAN JUAN 6 6 PHYSICIAN U BEN DEPARTMEN S, PLLC T VISIT MODERATE SEVERITY EMERGENCY 54131 KE 6 6 [facility] DEPARTMEN INC T VISIT LOW/MODER SEVERITY HOSPITAL KE - 6 6 [facility] OUT[facility]IEN INC T EMERGENCY 07544 BRIAN BUCIO 6 6 PHYSICIAN FOR DEPARTMEN S, PLLC T VISIT MODERATE SEVERITY EMERGENCY 56065 BRIAN FIELDS 6 6 PHYSICIAN SAMANTHA DEPARTMEN S, PLLC T VISIT LOW/MODER SEVERITY EMERGENCY 12498 BRIAN FIELDS DEPT 6 6 PHYSICIAN SAMANTHA VISIT S, PLLC HIGH SEVERITY& THREAT FUNC EMERGENCY 75561 BRIAN FIELDS DEPT 6 6 PHYSICIAN SAMANTHA VISIT S, PLLC HIGH SEVERITY& THREAT FUNCJ EMERGENCY 12083 BRIAN FIELDS DEPT 6 6 PHYSICIAN SAMANTHA VISIT S, PLLC HIGH SEVERITY& THREAT FUNCJ EMERGENCY 27564 BRIAN FIELDS DEPT 6 6 PHYSICIAN SAMANTHA VISIT S, PLLC HIGH [facility]VERITY& [facility] T EMERGENCY 19506 BRIAN FIELDS DEPT 6 6 PHYSICIAN SAMANTHA VISIT S, PLLC HIGH SEVERITY& THREAT FUNCJ EMERGENCY 45308 KE 6 6 [facility] T VISIT MODERATE SEVERITY EMERGENCY 71587 BRIAN FIELDS 6 6 PHYSICIAN SAMANTHA DEPARTMEN S, PLLC T VISIT MODERATE SEVERITY EMERGENCY 29897 BRIAN JUAN 6 6 PHYSICIAN U BEN DEPARTMEN S, PLLC T VISIT MODERATE SEVERITY HOSPITAL KE - 6 6 [facility] OUTPATIEN [facility] T HOSPITAL KE - 6 6 [facility] T EMERGENCY 69021 KE 6 6 [facility] T VISIT LOW/MODER SEVERITY EMERGENCY 87500 BRIAN PEOPLES 6 6 [facility] T VISIT MODERATE SEVERITY HOSPITAL KE - 6 6 [facility] T EMERGENCY 45778 BRIAN FIELDS 6 6 PHYSICIAN [facility] DEPARTMEN S, PLLC T VISIT MODERATE SEVERITY EMERGENCY 16062 BRIAN FIELDS DEPT 6 6 PHYSICIAN SAMANTHA VISIT S, PLLC HIGH SEVERITY& THREAT FUNCJ EMERGENCY 67810 BRIAN FIELDS DEPT 6 6 PHYSICIAN SAMANTHA VISIT S, PLLC HIGH SEVERITY& THREAT FUNCJ EMERGENCY 36776 KE 6 6 [facility] T VISIT LIMITED/M INOR PROB EMERGENCY 48748 BRIAN FIELDS DEPT 6 6 PHYSICIAN SAMANTHA VISIT S, PLLC HIGH SEVERITY& THREAT [facility]J [facility] KE - 6 6 [facility] T EMERGENCY 49714 BRIAN FIELDS 6 6 PHYSICIAN SAMANTHA DEPARTMEN S, PLLC T VISIT MODERATE SEVERITY EMERGENCY 55324 BRIAN FIELDS 6 6 PHYSICIAN SAMANTHA DEPARTMEN S, PLLC T VISIT HIGH/URGE NT SEVERITY EMERGENCY 32187 BRIAN FIELDS DEPT 6 6 PHYSICIAN SAMANTHA VISIT S, PLLC HIGH SEVERITY& THREAT FUNCJ EMERGENCY 32523 BRIAN FIELDS DEPT 6 6 PHYSICIAN SAMANTHA VISIT S, PLLC HIGH SEVERITY& THREAT FUNCJ EMERGENCY 80002 KE 6 6 [facility] V[facility] LIMITED/M INOR PROB H[facility]PITAL KE - 6 6 [facility] INC T EMERGENCY 76841 BRIAN FIELDS 6 6 PHYSICIAN SAMANTHA [facility]PARTMEN S, [facility] HIGH/URGE NT SEVERITY EMERGENCY 77197 BRIAN FIELDS 6 6 PHYSICIAN SAMANTHA DEPARTMEN S, [facility] T VISIT MODERATE SEVERITY EMERGENCY 29214 BRIAN JUAN DEPT 6 6 PHYSICIAN U BEN VISIT S, [facility] HIGH SEVERITY& THREAT FUNJ EMERGENCY 13598 BRIAN PERRY MOH 6 6 [facility] T [facility]IS[facility] HIGH/URGE NT SEVERITY HOSPITAL KE - 6 6 [facility] OUTPATIEN INC T EMERGENCY 55889 KE 6 6 [facility] T VISIT LOW/MODER SEVERITY EMERGENCY 09660 KE 6 6 [facility] T VISIT LOW/MODER SEVERITY [facility]PITAL KE - 6 6 [facility] INC T EMERGENCY 69460 BRIAN PERRY MOH 6 6 PHYSICIAN DEPARTMEN S, [facility] T VISIT HIGH/URGE NT SEVERITY HOSPITAL KE - 6 6 [facility] OUTPATIEN INC T EMERGENCY 44313 KE 6 6 [facility] T VISIT LOW/MODER SEVERITY EMERGENCY 18530 BRIAN RAMOS SYLVIA 6 6 PHYSICIAN DEPARTMEN S, PLLC T VISIT HIGH/URGE NT SEVERITY EMERGENCY 84121 KE 6 6 [facility] VISIT HIGH/URGE NT SEVERITY HOSPITAL KE - 6 6 [facility] JUL[facility]USW - 6 6 N [facility] EM[facility]GENC[facility] 01844 BRIAN JUAN 6 6 PHYSICIAN Austen [facility], [facility] T VISIT HIGH/URGE NT SEVERITY EMERGENCY 36722 KE 6 6 [facility] VISIT LOW/MODER SEVERITY HOSPITAL KE - 6 6 [facility] HOSPITAL KE - 6 6 [facility] EMERGENCY 04846 BRIAN REES 6 6 PHYSICIAN [facility] T VISIT HIGH/URGE NT SEVERITY EMERGENCY 07283 KE 6 6 [facility] VISIT LOW/MODER SEVERITY EMERGENCY 91486 BRIAN BUCIO DEPT 5 5 PHYSICIAN FOR VISIT , [facility] HIGH SEVERITY& THREAT FUNJ EMERGENCY 80007 BRIAN LEWIS JR 5 5 PHYSICIAN MICHAEL [facility] T VISIT HIGH/URGE NT SEVERITY HOSPITAL KE - 5 5 [facility] EMERGENCY 82013 KE 5 5 [facility] VISIT HIGH/URGE NT SEVERITY OFFICE 12611 REJI HUTCHINS JAVIER CONSULTAT 5 5 N ION NEUROLOGY NEW/ESTAB PATIENT 60 MIN HOSPITAL REJI - 5 5 N OUTPATIEN COMMUNTIY [facility] KE - 5 5 [facility] EMERGENCY 89797 BRIAN JUAN 5 5 PHYSICIAN Austen [facility], [facility] T VISIT HIGH/URGE NT SEVERITY HOSPITAL KE - 5 5 [facility] OUTPATIEN INC T EMERGENCY 89793 BRIAN REES 5 5 PHYSICIAN [facility] S, [facility] T VISIT HIGH/URGE NT SEVERITY OFFICE 74747 [facility] OUTPATIEN 5 5 PHYSICIAN RUSLAN Bhatti NEW 45 S GROUP MINUTES EMERGENCY 85855 BRIAN JUAN 5 5 PHYSICIAN [facility], [facility] T VISIT HIGH/URGE NT SEVERITY OFFICE 89363 [facility] OUTPATIEN 5 5 [place] T VISIT ORTHOPAED 15 [facility] MINUTES EMERGENCY 16502 BRIAN JUAN 5 5 PHYSICIAN [facility], [facility] T VISIT LOW/MODER SEVERITY EMERGENCY 05754 BRIAN ABDI 5 5 PHYSICIAN LOREN [facility], [facility] T VISIT HIGH/URGE NT SEVERITY OFFICE 24833 [facility] OUTPAT[place] 5 5 [place] T VISIT ORTHOPAED 15 [facility] MINUTES OFFICE 37186 [facility] TAFOYA OUTPATIEN 5 5 PHYSICIAN TARAN Bhatti NEW 45 S GROUP MINUTES OFFICE 27736 [facility] OUTPATIEN 5 5 [place] T NEW 30 ORTHOPAED MINUTES [facility] HOME VST 63378 MD2U LOEBKER EST PT 5 5 [place] [facility] SIGNIF NEW PROB 60 MINS HOME VST 76361 MD2U LOEBKER EST PT 5 5 [facility] SIGNIF NEW PROB [address] [facility] OUTPATIEN 5 5 [facility] T VISIT MED CTR [address] - 5 5 [facility] OUTPATIEN MED CTR T SOFTWARE TECHNICAL LEAD ST HOME VST 73956 MD2U LOEBKER EST PT 5 5 [facility] SIGNIF NEW PROB [address] [facility] OUTPATIEN 5 5 [facility] T NEW 30 MINUTES PHYSICIAN S HOME VST 79115 MD2U MANISHAEBKER EST PT 5 5 [facility] SIGNIF NEW PROB 60 MINS HOME VST 21069 MD2U MANISHAEBKER EST PT 5 5 [facility] SIGNIF NEW PROB 60 MINS HOME VST 85375 MD2U LOEBKER EST PT 5 5 [place] [facility] SIGNIF NEW PROB 60 MINS HOME VST 32504 MD2U MANISHAEBKER EST PT 4 4 [facility] SIGNIF NEW PROB 60 MINS HOME VST 42868 MD2U MANISHAEBKER EST PT 4 4 [place] [facility] SIGNIF NEW PROB [address] [facility] OUTPATIEN 4 4 [facility] HEI T VISIT 15 PHYSICIAN MINUTES S EMERGENCY 31655 EMERGENCY DAVREN DEPT 4 4 CARE ANNETTE VISIT PHYS HIGH NORTHERN SEVERITY& THREAT FUNCJ HOME VST 30820 MD2U MANISHAEBKER EST PT 4 4 [place] [facility] SIGNIF NEW PROB 60 MINS EMERGENCY 54995 EMERGENCY [place] 4 4 CARE LOREN DEPARTMEN PHYS T VISIT [facility] HIGH/URGE NT SEVERITY HOME VST 06776 MD2U MANISHAEBKER EST PT 4 4 [place] [facility] SIGNIF NEW PROB 60 MINS EMERGENCY 77308 EMERGENCY ELLDUARTE 4 4 CARE SAMANTHA DEPARTMEN PHYS T VISIT [facility] HIGH/URGE NT SEVERITY [facility] ST - 4 4 [facility] OUTPATIEN FT T CRUZ OFFICE 50420 THE VASHI CHR OUTPATIEN 4 4 PLASTIC T NEW 30 SURGERY MINUTES GROUP [facility] ST - 4 4 [facility] OUTPATIEN [facility] ST - 4 4 [facility] OUTPATIEN OFFICE 19111 ST AN OUTPATIEN 4 4 [facility] PRIMO CHLOE T VISIT 15 PHYSICIAN MINUTES [facility] ST - 4 4 [facility] OUTPATIEN MED CTR T SOFTWARE TECHNICAL LEAD OFFICE 49825 ST AN OUTPATIEN 4 4 [facility] PRIMO CHLOE T VISIT 25 PHYSICIAN MINUTES S EMERGENCY 83680 EMERGENCY DEPT 4 4 CARE VISIT PHYS HIGH NORTHERN SEVERITY& THREAT [facility] ST - 4 4 [facility] OUTPATIEN OFFICE 17172 ST AN OUTPATIEN 4 4 [facility] PRIMO CHLOE T VISIT 25 PHYSICIAN MINUTES S EMERGENCY 27498 [facility] KEYSHAWN 3 3 [facility] LUCIUSMEN MED CTR T VISIT MODERATE SEVERITY OFFICE 15745 ST VAL OUTPATIEN 3 3 [facility] KAII T VISIT 15 PHYSICIAN MINUTES [facility] ST - 3 3 [facility] MOMINEN OFFICE 64426 ST AN OUTPATIEN 3 3 [facility] PRIMO CHLOE T VISIT 15 PHYSICIAN MINUTES S EMERGENCY 49179 EMERGENCY DAVREN 3 3 CARE ANNETTE DEPARTMEN PHYS T VISIT [facility] HIGH/URGE NT SEVERITY EMERGENCY 67874 EMERGENCY [place] DEPT 3 3 CARE LOREN VISIT PHYS HIGH [facility]THER[facility] SEVERITY& THREAT [facility] OFF[facility] 10163 [facility] OUTPATI[facility] 3 3 [facility] T NEW 20 ORTHOPAE MINUTES EMERGENCY 03486 EMERGENCY DORY 3 3 CARE SANGEETA DEPARTMEN PHYS T VISIT [facility] HIGH/URGE NT SEVERITY OFFICE 82344 ST AN OUTPATIEN 3 3 [facility] PRIMO CHLOE T VISIT 15 PHYSICIAN MINUTES S EMERGENCY 56306 LEONEL COBOS DEPT 3 3 EMERGENCY VISIT SERVICES HIGH SEVERITY& THREAT FUNCJ OFFICE 45675 ST AN OUTPATIEN 3 3 [facility] PRIMO CHLOE T VISIT 25 PHYSICIAN MINUTES S OFFICE 98871 ST SCHACK OUTPATIEN 3 3 [facility] LOREN T VISIT 15 PHYSICIAN MINUTES S OFFICE 50205 ST AN OUTPATIEN 3 3 [facility] PRIMO CLHOE T VISIT 25 PHYSICIAN MINUTES S EMERGENCY 16495 KE 3 3 [facility] DEPARTMEN INC T VISIT MODERATE SEVERITY HOSPITAL KE - 3 3 [facility] OUTPATIEN INC T EMERGENCY 56458 LEONEL COBOS DEPT 3 3 EMERGENCY VISIT SERVICES HIGH SEVERITY& THREAT FUNJ EMERGENCY 99322 LEONEL VERDUZCO DEPT 3 3 EMERGENCY VISIT SERVICES HIGH SEVERITY& THREAT FUN OFFICE 48752 ST OUTPATIEN 3 3 [facility] T VISIT FT 10 [facility] - 3 3 [facility] OUTPATIEN [facility] - 3 3 [facility] OUTPATIEN FT [facility] OFFICE 08597 ST DEAN HEL OUTPATIEN 3 3 C[facility] T VISIT 15 PHYSICIAN MINUTES [facility] ST - 3 3 [facility] OUTPATIEN FT [facility] OFFICE [address] [facility] OUTPATIEN 3 3 [facility] HEI T NEW 45 MINUTES [facility] - 3 3 [facility] OUTPATIEN FT [facility] OFFICE [address] [facility] DEAN HEL OUTPATIEN 3 3 C[facility] T VISIT 15 PHYSICIAN MINUTES S OFFICE 82550 ST DIANNE HEL OUTPATIEN 3 3 C[facility] T VISIT 25 PHYSICIAN MINUTES S OFFICE 85959 ST DIANNE HEL OUTPATIEN 3 3 [facility] T VISIT 25 PHYSICIAN MINUTES S EMERGENCY 83815 LEONEL FIELDS DEPT 3 3 EMERGENCY SAMANTHA VISIT SERVICES HIGH SEVERITY& THREAT [facility] CENTRAL - 2 2 [facility] UNIVERSIT - 2 2 [facility] T EMERGENCY 54785 [facility] EMERGENCY DEPARTMEN SERVICES T VISIT MODERATE SEVERITY EMERGENCY 97585 UNIVERSIT 2 2 Y [facility] T VISIT LOW/MODER SEVERITY OFFICE 52505 [facility] BEN BEN T VISIT 25 MINUTES EMERGENCY 17323 DK FRIAS 2 2 MEDICAL DEPARTMEN SERV T VISIT FOUNDATIO HIGH/URGE NT SEVERITY EMERGENCY 53983 UNIVERSIT 2 2 Y [facility] HOSPITAL T VISIT MODERATE SEVERITY HOSPITAL UNIVERSIT - 2 2 Y [facility] T OFFICE 36709 [facility] 2 2 ELIZABETH RODRIGUEZ ION NEUROLOGY NEW/ESTAB PATIENT 40 MIN EMERGENCY 56751 DK PEREZ 2 2 MEDICAL SET DEPARTMEN SERV T VISIT FOUNDATIO HIGH/URGE NT SEVERITY EMERGENCY 12082 DK RENO 2 2 MEDICAL RYLIE DEPARTMEN SERV T VISIT FOUNDATIO HIGH/URGE NT SEVERITY OFFICE 32591 CORALFINA CORALES OUTPATIEN 2 2 BEN BEN T VISIT 15 MINUTES OFFICE 63531 [facility]ES CORALES OUTPATIEN 2 2 BEN BEN T NEW 45 MINUTES EMERGENCY 20904 DK REYES 2 2 MEDICAL I ALI DEPARTMEN SERV T VISIT FOUNDATIO HIGH/URGE NT SEVERITY EMERGENCY 57829 DK RENO 2 2 MEDICAL RYLIE DEPARTMEN SERV T VISIT FOUNDATIO HIGH/URGE NT SEVERITY HOSPITAL UNIVERSIT - 2 2 Y [facility] T OFFICE 98371 [facility] PAT CON[facility] 2 2 [place] [facility] NEW/ESTAB PSC PATIENT 60 MIN EMERGENCY 57174 [facility] DEPT 1 1 VISIT HIGH SEVERITY& THREAT FUNCJ EMERGENCY 81087 LEONEL DEMPSEY 1 1 EMERGENCY SCO DEPARTMEN SERVICES T VISIT MODERATE SEVERITY EMERGENCY 38418 DK REYES DEPT 1 1 MEDICAL I ALI VISIT SERV HIGH FOUNDATIO SEVERITY& THREAT FUNCJ OFFICE 73927 [facility] OUT[facility] 1 1 I JOSE CRUZ I JOSE CRUZ T NEW 45 MINUTES EMERGENCY 42025 [facility] DEPT 1 1 EMERGENCY AKM VISIT SERVICES HIGH SEVERITY& THREAT FUNCJ OFFICE 83634 DK [facility] CONSULTAT 1 1 MEDICAL CHLOE ION SERV NEW/ESTAB FOUNDATIO PATIENT 60 MIN [facility] [place] - 1 1 [facility] OFFICE 42688 [facility] 1 1 [place] FAMILY ELL T VISIT MEDICINE 25 P MINUTES OFFICE 82414 ALVARADO I BAUTISTA III CONSULTAT 1 1 BAUTISTA III LYUBOV ION PSC N0 3 NEW/ESTAB PATIENT 30 MIN EMERGENCY 74533 [facility] DEPT 1 1 EMERGENCY VISIT SERVICES HIGH SEVERITY& THREAT FUNCJ OFFICE 30248 EUNICE BELCHER OUTPATIEN 1 1 [place] FAMILY T VISIT MEDICINE 15 P MINUTES HOSPITAL UNIVERSIT - 1 1 [facility] 1 [facility]
--- OUTSIDE RECORDS SUMMARY | 2017-06-28 01:21 | External Medical Summary Rpt ---
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 87 -2 -1 0. IN 94 YM ti OR 70 00 IC 74 AN ve VA 56 20 20 0 N 11 17 [...] LL G C IN [place] OH 59 07 09 11 85 25 CL [...] 66 -0 -0 0. IN 18 ti OH 40 7- 7- 00 IC 57 AN [...] 20 00 IN 40 17 17 PH VA 1 AR CH 40 MA AE 0 [...] AD MG LL C TA BL ET OH 59 07 08 11 85 25 CL [...] 7- 1- 00 IC 74 AN ve VA 21 20 20 0 N 81 17 17 PH EU HC 0 AR GO L MA ND 50 CY A 0 F MG LL C TA BL ET ME 57 04 08 10 60 30 CL 42 FR Ac TO 23 -2 -2 0. IN 94 YM ti OH 70 7- 1- 00 IC 79 AN [...] 17 PH EU E 6 AR GO OH MA ND OP CY A F 50 [...] 20 00 IN 40 17 17 PH VA 1 AR CH 40 MA AE 0 [...] LL G C IN [place] OH 59 07 07 11 85 25 CL [...] 17 PH EU E 6 AR GO OH MA ND OP CY A F 50 [...] 17 PH EU GM 8 AR GO INTESH ND CA CY A PS F UL [...] 7- 5- 00 IC 74 AN ve VA 21 20 20 0 N 81 17 17 PH EU HC 0 AR GO L NITESH ND 50 CY A 0 F MG LL C TA BL ET ME 00 04 07 10 60 30 CL 42 FR Ac TO 37 -2 -2 0. IN 94 YM ti OH 80 7- 5- 00 IC 79 AN [...] 7- 8- 00 IC 74 AN ve VA 21 20 20 0 N 81 17 [...] 17 PH XI E 6 AR E OH MA D OP CY 50 LL C [...] -2 -2 0. IN 94 YM ti OH 70 7- 8- 00 IC 79 AN [...] LL G C IN [place] OH 59 06 06 0 85 25 CL [...] 62 -2 -1 .0 00 IN ti VA 97 7- 6- 00 00 IC ve [...] 23 -2 -1 .0 00 IN ti OH 70 7- 6- 00 00 IC ve [...] 17 94 PH E 6 86 AR OH MA OP CY 50 MC G SP [...] 60 3- 2- 00 00 IC ve VA 21 20 20 42 N 81 17 [...] 17 PH XI E 6 AR E OH MA D OP CY 50 LL C [...] 7- 1- 00 IC 74 AN ve VA 21 20 20 0 N 81 17 17 PH EU HC 0 AR GO L MA ND 50 CY A 0 F MG LL C TA BL ET ME 57 05 05 60 30 00 CL Ac TO 23 -0 -2 .0 00 IN ti OH 70 1- 6- 00 00 IC ve [...] 62 -0 -2 .0 00 IN ti VA 97 1- 6- 00 00 IC ve [...] 60 7- 2- 00 00 IC ve VA 21 20 20 42 N 81 17 [...] 62 -0 -0 .0 00 IN ti VA 97 3- 5- 00 00 IC ve [...] 37 -0 -0 .0 00 IN ti OH 80 5- 5- 00 00 IC ve [...] 17 70 PH E 6 48 AR OH MA OP CY 50 MC G SP [...] 20 2- 4- 00 13 CA ve VA 00 20 20 92 RE N 89 [...] 90 -1 -0 .0 00 D ti VA 45 4- 7- 00 13 CA ve [...] 37 -1 -3 .0 00 D ti OH 80 0- 1- 00 13 CA ve [...] 20 1- 4- 00 13 CA ve VA 00 20 20 77 RE N 89 [...] 37 -1 -2 .0 00 D ti OH 80 0- 4- 00 13 CA ve [...] 90 -1 -2 .0 00 D ti VA 45 3- 4- 00 13 CA ve [...] 20 3- 7- 00 13 CA ve VA 00 20 20 63 RE N 89 [...] 37 -1 -0 .0 00 D ti OH 80 3- 3- 00 13 CA ve [...] 90 -1 -0 .0 00 D ti VA 45 4- 3- 00 13 CA ve [...] 30 6- 0- 00 13 CA ve VA 31 20 20 50 RE DE 10 [...] 20 4- 3- 00 13 CA ve VA 00 20 20 49 RE N 89 [...] 37 -1 -0 .0 00 D ti OH 80 5- 9- 00 13 CA ve [...] 90 -1 -0 .0 00 D ti VA 45 6- 9- 00 13 CA ve [...] 16 17 59 E 9 69 PH OH AR OP MA CY 50 LL MC C G SP RA Y HY 00 07 07 0 30 [address] 59 -2 -2 0. D 50 NO ti OC 13 3 CA 36 LD ve OD 20 20 20 0 RE 11 ON 20 15 15 RI -A 1 PH CH CE AR AR TA MA D VA CY W NO PH LL EN C [...] OR 20 9 CA 84 LD ve VA 75 20 20 0 RE 72 N [...] -2 -2 0. D 49 NO ti OH 40 9 CA 84 LD ve OL [...] -2 0. D 49 NO ti VA 45 9- 5- 00 CA 84 LD [...] JE CE AR WE TA MA LL VA CY NO PH LL EN C 5- [...] -2 0. D 40 NO ti VA 45 9- 6- 00 CA 58 LD [...] -2 -2 0. D 40 NO ti OH 40 9- 6- 00 CA 58 LD [...] 9- 6- 00 CA 58 LD ve VA 02 20 20 0 RE 90 N [...] ti OR 20 CA 92 LD ve VA 02 20 20 0 RE 62 N [...] -2 -2 0. D 32 NO ti OH 40 9- 9- 00 CA 92 LD [...] -2 -2 0. TA 74 EB ti VA 45 4- 9- 00 L 03 KE [...] -2 -2 0. TA 95 EB ti OH 80 0- 0- 00 L 92 KE [...] MA MG CY TA #5 BL ET OH 00 10 05 3 67 32 TO [...] 6- 2- 00 L 71 KE ve OH 21 20 20 0 CA R IL [...] -2 -2 0. TA 95 EB ti OH 80 0- 0- 00 L 92 KE [...] 4- 7- 00 L 02 KE ve VA 02 20 20 0 CA R N 81 15 15 RE TA HC 0 MM L PH Y 50 AR 0 MA MG CY TA #5 BL ET 00 03 04 6 30 30 TO 87 LO Ac TA 90 -2 -1 0. TA 74 EB ti VA 45 4- 7- 00 L 03 KE [...] 6- 6- 00 L 71 KE ve OH 41 20 20 0 CA R IL [...] 4- 4- 00 L 02 KE ve VA 02 20 20 0 CA R N 81 15 15 RE TA HC 0 MM L PH Y 50 AR 0 MA MG CY TA #5 BL ET 00 03 03 6 30 30 TO 87 LO Ac TA 90 -2 -2 0. TA 74 EB ti VA 45 4- 4- 00 L 03 KE [...] -0 -0 0. TA 58 AILYN ti OH 80 9- 9- 00 L 57 RN [...] -1 -1 0. TA 40 EB ti VA 45 9- 9- 00 L 75 KE [...] 7- 7- 00 L 39 KE ve VA 02 20 20 0 CA R N [...] -1 -1 0. TA 40 AILYN ti OH 80 1- 1- 00 L 67 RN [...] -2 -2 0. TA 24 EB ti VA 45 6- 6- 00 L 21 KE [...] 7- 3- 00 L 17 RN ve VA 02 20 20 0 CA E N [...] -1 -1 0. TA 04 AILYN ti OH 80 0- 0- 00 L 26 RN [...] 7- 7- 00 L 17 RN ve VA 19 20 20 0 CA E N [...] -1 -1 0. TA 89 AILYN ti OH 20 7- 7- 00 L 16 RN [...] -2 -1 0. TA 36 AILYN ti VA 45 0- 7- 00 L 25 RN [...] ST CY Y ST #5 RI PS OH 00 12 12 0 50 5 TO [...] 0- 3- 00 L 36 RN ve VA 36 20 20 0 CA E N [...] -2 -1 0. TA 36 AILYN ti VA 45 0- 9- 00 L 25 RN [...] -0 -1 0. TA 51 AILYN ti OH 20 5- 9- 00 L 99 RN [...] 0- 9- 00 L 36 RN ve VA 21 20 20 0 CA E N [...] MG MA CY TA BL #5 ET OH 00 10 10 3 67 32 TO [...] -2 -2 0. TA 36 AILYN ti VA 45 0- 0- 00 L 25 RN ve N 98 20 20 0 CA E D3 66 14 14 RE LE 0 WI 5, PH S 00 AR RE 0 MA BE UN CY CC IT A #5 L CA PS UL E ME 00 08 10 2 60 30 TO 85 OS Ac TO 37 -1 -2 0. TA 82 AILYN ti OH 80 2- 0- 00 L 25 RN [...] 0- 0- 00 L 36 RN ve VA 02 20 20 0 CA E N [...] -2 -2 0. TA 71 AILYN ti VA 45 9- 3- 00 L 35 RN [...] -1 -1 0. TA 82 AILYN ti OH 20 2- 6- 00 L 25 RN [...] 8- 2- 00 L 03 RN ve VA 02 20 20 0 CA E N 81 14 14 RE LE HC 0 WI L PH S 50 AR RE 0 MA BE MG CY CC A TA #5 L BL ET 00 07 08 2 30 30 TO 85 OS Ac TA 90 -2 -2 0. TA 71 AILYN ti VA 45 9- 6- 00 L 35 RN [...] -1 -1 0. TA 82 AILYN ti OH 20 2- 2- 00 L 25 RN [...] 8- 4- 00 L 03 RN ve VA 02 20 20 0 CA E N [...] -2 -2 0. TA 71 AILYN ti VA 45 9- 9- 00 L 35 RN [...] CC A ST #5 L RI PS OH 00 07 07 3 67 32 TO [...] -1 -1 0. TA 14 AILYN ti OH 20 4- 5- 00 L 95 RN [...] 8- 8- 00 L 03 RN ve VA 02 20 20 0 CA E N [...] -3 -0 0. TA 03 AILYN ti VA 45 0- 1- 00 L 00 RN [...] -1 -1 0. TA 14 AILYN ti OH 20 4- 7- 00 L 95 RN [...] -3 -2 0. TA 03 AILYN ti VA 45 0- 7- 00 L 00 RN [...] -1 -1 0. TA 14 AILYN ti OH 20 4- 4- 00 L 95 RN [...] -3 -3 0. TA 03 AILYN ti VA 45 0- 0- 00 L 00 RN [...] CA R ON 09 14 14 RE VA E 9 CH OH PH AE OP AR L MA G [...] -1 -1 0. TA 42 AILYN ti OH 20 4- 6- 00 L 02 RN [...] 2- 3- 00 L 08 RN ve VA 10 20 20 CA E DE 51 [...] -1 -1 0. TA 42 AILYN ti OH 20 4- 3- 00 L 02 RN [...] 8- 1- 00 L 58 RN ve VA 10 20 20 CA E DE 51 [...] 9- 1- 00 L 39 RN ve VA 10 20 20 CA E DE 51 [...] -1 -1 0. TA 42 AILYN ti OH 20 4- 4- 00 L 02 RN [...] 4- 4- 00 L 03 RN ve VA 10 20 20 CA E DE 51 [...] AR U MA TA CY BL ET OH 68 02 02 2 30 30 TO [...] AR U MA TA CY BL ET OH 68 11 01 2 30 30 TO [...] CA R ON 09 13 14 RE VA E 9 CH OH PH AE OP AR L MA G 50 CY MC G SP RA Y CY 59 12 01 0 15 5 TO 84 RO Ac CL 74 -3 -0 0. TA 07 GE ti OB 60 1- 2- 00 L 92 RS ve EN 17 20 20 0 CA ZA 71 13 14 RE SH OH 0 AR IN PH ON E AR [...] AR CE PH ON TA AR E VA MA NO CY PH EN 5- 32 [...] AR U MA TA CY BL ET OH 68 11 12 2 30 30 TO [...] CA R ON 09 13 13 RE VA E 9 CH OH PH AE OP AR L MA G [...] R CE PH MA TA AR TT VA MA HE NO CY W PH S EN 5- 32 5 OH 68 11 11 0 30 8 TO [...] AR U MA TA CY BL ET OH 68 11 11 2 30 30 TO [...] IA 52 -3 -3 0. TA 63 IALYN ti MT 71 0- 0- 00 L [...] TA CY CC BL A ET L OH 68 07 10 2 30 30 TO [...] EN CE PH TO TA AR N VA MA D NO CY PH EN 5- [...] .5 A -2 L 5 MG CP OH 68 07 08 2 30 30 TO [...] CA R ON 09 13 13 RE VA E 9 CH OH PH AE OP AR L MA G [...] 0- 0- 00 L 31 RN ve VA 10 20 20 CA E DE 51 [...] AR U MA TA CY BL ET OH 68 07 07 2 30 30 TO [...] CA R ON 09 13 13 RE VA E 9 CH OH PH AE OP AR L MA G [...] AR U MA TA CY BL ET OH 68 06 06 0 30 30 TO [...] 37 CY .5 -2 5 MG CP OH 68 05 05 0 30 30 TO [...] CA R ON 09 13 13 RE VA E 9 CH OH PH AE OP AR L MA G [...] MG MA CY SO FT GE L OH 68 04 04 0 30 30 TO [...] CA R ON 09 13 13 RE VA E 9 CH OH PH AE OP AR L MA G [...] CA R IN 80 13 13 RE VA E 1 CH 10 PH AE 0 [...] 0. MA 5 CY MG TA B OH 68 03 03 0 30 30 TO [...] CA R ON 09 13 13 RE VA E 9 CH OH PH AE OP AR L MA G 50 CY MC G SP RA Y OH 68 02 02 0 30 30 TO [...] 34 8. 5 6 MG TA B OH 00 09 10 11 30 30 CV [...] -1 -2 .0 S 95 LV ti OH 80 5- 9- 00 PH 48 IL [...] 34 8. 5 6 MG TA B OH 00 09 10 11 30 30 CV [...] -1 -0 .0 S 95 LV ti OH 80 5- 2- 00 PH 48 IL [...] 2 30 30 CV 70 HO Ac OH 00 -0 -1 .0 S 77 UC [...] -2 -2 .0 S 14 LV ti OH 80 3- 8- 00 PH 04 IL [...] 34 8. 5 6 MG TA B OH 00 07 08 1 30 30 CV [...] 0 30 30 CV 70 GH Ac OH 00 -2 -2 .0 S 59 AN [...] 34 8. 5 6 MG TA B OH 00 07 07 1 30 30 CV [...] -2 -2 .0 S 14 LV ti OH 80 3- 2- 00 PH 04 IL [...] 34 8. 5 6 MG TA B OH 00 06 06 3 30 30 CV [...] -2 -2 .0 S 72 t ti OH 80 3- 3- 00 PH 76 Av [...] Comment HOME CARE [id number] [facility] [address] [place] [address] ELDER ELDER CARE CARE CARE CLIENT PER 15 MIN HOME CARE S5108 [facility] [address] [place] [address] ELDER ELDER CARE CARE CARE CLIENT PER 15 MIN HOME CARE S5108 [facility] [address] [place] [address] ELDER ELDER CARE CARE CARE CLIENT PER 15 MIN DAY CARE S5100 [facility] [address] [place] [address] ADULT; ELDER ELDER PER 15 CARE CARE MINUTES DAY CARE S5100 [facility] [address] [place] [address] ADULT; ELDER ELDER PER 15 CARE CARE MINUTES HOME CARE S5108 [facility] [address] [place] [address] ELDER ELDER CARE CARE CARE CLIENT PER 15 MIN HOME CARE S5108 [facility] [address] [place] [address] ELDER ELDER CARE CARE CARE CLIENT PER 15 MIN DAY CARE S5100 [facility] [address] [place] [address] ADULT; ELDER ELDER PER 15 CARE CARE MINUTES HOME CARE S5108 [facility] [address] [place] [address] ELDER ELDER CARE CARE CARE CLIENT PER 15 MIN HOME CARE S5108 [facility] [address] [place] [address] ELDER ELDER CARE CARE CARE CLIENT PER 15 MIN DAY CARE S5100 [facility] [address] [place] [address] ADULT; ELDER ELDER PER 15 CARE CARE MINUTES HOME CARE S5108 [facility] 7 [facility] ELDER ELDER CARE CARE CARE CLIENT PER 15 MIN HOME CARE S5108 [facility] 7 [facility] ELDER ELDER CARE CARE CARE CLIENT PER 15 MIN DAY CARE S5100 [facility] 7 [facility] ADULT; ELDER ELDER PER 15 CARE CARE MINUTES DAY CARE S5100 [facility] 7 [facility] ADULT; ELDER ELDER PER 15 CARE CARE MINUTES HOME CARE S5108 [facility] 7 [facility] ELDER ELDER CARE CARE CARE CLIENT PER 15 MIN HOME CARE S5108 [facility] 7 [facility] ELDER ELDER CARE CARE CARE CLIENT PER 15 MIN HOME CARE S5108 [facility] 7 [facility] ELDER ELDER CARE CARE CARE CLIENT PER 15 MIN RADIOLOGI 29345 [place] [facility] 7 MEDICAL EXAMINATI SERV ON CHEST FOUNDATIO SINGLE N VIEW FRONTAL ECG 69862 [place] ROUTINE 7 MEDICAL ECG SERV W/LEAST FOUNDATIO 12 LDS N I&R ONLY HOME CARE S5108 [facility] 7 [facility] ELDER ELDER CARE CARE CARE CLIENT PER 15 MIN HOME CARE S5108 [facility] 7 [facility] ELDER ELDER CARE CARE CARE CLIENT PER 15 MIN DAY CARE S5100 [facility] 7 [facility] ADULT; ELDER ELDER PER 15 CARE CARE MINUTES GROUND A0425 [facility] PER SERVICE SERVICE STATUTE MILE AMBULANCE A0429 [facility] 7 AMBULANCE AMBULANCE BLS SERVICE SERVICE EMERGENCY TRANSPORT DAY CARE S5100 [facility] 7 [facility] ADULT; ELDER ELDER PER 15 CARE CARE MINUTES HOME CARE S5108 [facility] 7 [facility] ELDER ELDER CARE CARE CARE CLIENT PER 15 MIN HOME CARE S5108 [facility] 7 [facility] ELDER ELDER CARE CARE CARE CLIENT PER 15 MIN HOME CARE S5108 [facility] 7 [facility] ELDER ELDER CARE CARE CARE CLIENT PER 15 MIN INITIAL 50754 [facility] 7 PHYSICIAN A CARE/DAY S GROUP 50 MINUTES DAY CARE S[address] [facility] [address] ADULT; ELDER ELDER PER 15 CARE CARE MINUTES HOME CARE S5108 [facility] 7 [facility] ELDER ELDER CARE CARE CARE CLIENT PER 15 MIN AMBULANCE A0429 [facility] SERV[facility] 7 AMBULANCE AMBULANCE BLS SERVICE SERVICE EMERGENCY TRANSPORT GROUND A0425 [facility] 7 AMBULANCE AMBULANCE PER SERVICE SERVICE STATUTE MILE GROUND A0425 [facility] 7 AMBULANCE AMBULANCE PER SERVICE SERVICE STATUTE MILE AMBULANCE A0429 [facility] 7 AMBULANCE AMBULANCE BLS SERVICE SERVICE EMERGENCY TRANSPORT HOME CARE S5108 [facility] 7 [facility] ELDER ELDER CARE CARE CARE CLIENT PER 15 MIN RADIOLOGI 60802 [place] [facility] 7 MEDICAL EXAMINATI IMAGING ON CHEST ASS SINGLE VIEW FRONTAL ECG 85541 KE [facility] JR ROUTINE 7 [facility] W/LEAST P 12 LDS I&R ONLY DAY CARE S[address] [facility] [address] ADULT; ELDER ELDER PER 15 CARE CARE MINUTES HOME CARE S5108 [facility] 7 [facility] ELDER ELDER CARE CARE CARE CLIENT PER 15 MIN HOME CARE S5108 [facility] 7 [facility] ELDER ELDER CARE CARE CARE CLIENT PER 15 MIN DAY CARE S[address] [facility] [address] ADULT; ELDER ELDER PER 15 CARE CARE MINUTES HOME S5170 KE [facility] 7 CO. ADULT CO. ADULT MEALS DAY DAY INCLUDING ELDER ELDER PREPARATI ON; PER MEAL HOME S5170 KE [facility] 7 CO. ADULT CO. ADULT MEALS DAY DAY INCLUDING ELDER ELDER PREPARATI ON; PER MEAL DAY CARE S[address] [facility] [address] ADULT; ELDER ELDER PER 15 CARE CARE MINUTES HOME CARE S5108 [facility] 7 [facility] ELDER ELDER CARE CARE CARE CLIENT PER 15 MIN HOME CARE S5108 [facility] 7 [facility] ELDER ELDER CARE CARE CARE CLIENT PER 15 MIN DAY CARE S[address] [facility] [address] ADULT; ELDER ELDER PER 15 CARE CARE MINUTES HOME S5170 KE [facility] 7 CO. ADULT CO. ADULT MEALS DAY DAY INCLUDING ELDER ELDER PREPARATI ON; PER MEAL HOME S5170 KE [facility] 7 CO. ADULT CO. ADULT MEALS DAY DAY INCLUDING ELDER ELDER PREPARATI ON; PER MEAL DAY CARE S5100 KE GÓMEZ 7 [facility] ADULT; ELDER ELDER PER 15 CARE CARE MINUTES HOME CARE S5108 [facility] [address] [place] [address] ELDER ELDER CARE CARE CARE CLIENT PER 15 MIN HOME CARE S5108 [facility] [address] [place] [address] ELDER ELDER CARE CARE CARE CLIENT PER 15 MIN HOME S5170 KE [facility] 7 CO. ADULT CO. ADULT MEALS DAY INCLUDING ELDER ELDER PREPARATI ON; PER MEAL HOME S5170 KE [facility] 7 CO. ADULT CO. ADULT MEALS DAY INCLUDING ELDER ELDER PREPARATI ON; PER MEAL DAY CARE S5100 [facility] [address] [place] [address] ADULT; ELDER ELDER PER 15 CARE CARE MINUTES HOME CARE S5108 [facility] [address] [place] [address] ELDER ELDER CARE CARE CARE CLIENT PER 15 MIN HOME CARE S5108 [facility] 7 [facility] ELDER ELDER CARE CARE CARE CLIENT PER 15 MIN CREATINE 62891 [facility] KINASE 7 [facility] TOTAL INC INC RADEX HIP 47553 [facility] UNILATERA INC INC L WITH PELVIS 2-3 VIEWS ECG 30279 KE [facility] ROUTINE 7 [facility] W/LEAST P 12 LDS [place] [address] [facility] TROPONIN 7 [facility] QUANTITAT INC INC SWAPNIL BLOOD 55199 KE ESTRELLA COUNT 7 [facility] COMPLETE INC AUTO&AUTO DIFRNTL WBC CREATINE 54508 [facility] KINASE MB 7 [facility] FRACTION INC INC ONLY URNLS DIP 98662 [facility] STICK/TAB INC INC LET REAGENT AUTO MICROSCOP Y HOME S5170 KE [facility] 7 CO. ADULT CO. ADULT MEALS DAY DAY INCLUDING ELDER ELDER PREPARATI ON; PER MEAL AMB A0427 [facility] SERVICE 7 AMBULANCE AMBULANCE ALS SERVICE SERVICE EMERGENCY TRANSPORT LEVEL 1 ECG 87226 [facility] ROUTINE 7 [facility] ECG INC INC W/LEAST 12 LDS TRCG ONLY W/O I&R GROUND A0425 [facility]ANCE AMBULANCE PER SERVICE SERVICE STATUTE [facility] 43753 KE [facility] SIVE 7 [facility] METABOLIC INC INC PANEL HOME S5170 KE [facility] 7 CO. ADULT CO. ADULT MEALS DAY DAY INCLUDING ELDER ELDER PREPARATI ON; PER MEAL HOME CARE S5108 [facility] [address] [place] [address] ELDER ELDER CARE CARE CARE CLIENT PER 15 MIN HOME CARE S5108 [facility] [address] [place] [address] ELDER ELDER CARE CARE CARE CLIENT PER 15 MIN HOME S5170 KE [facility] 7 CO. ADULT CO. ADULT MEALS DAY DAY INCLUDING ELDER ELDER PREPARATI ON; PER MEAL DAY CARE S[address] [address] ADULT; ELDER ELDER PER 15 CARE CARE MINUTES HOME S5170 KE [facility] 7 CO. ADULT CO. ADULT MEALS DAY DAY INCLUDING ELDER ELDER PREPARATI ON; PER MEAL HOME CARE S5108 [facility] [address] [place] [address] ELDER ELDER CARE CARE CARE CLIENT PER 15 MIN HOME CARE S5108 [facility] [address] [place] [address] ELDER ELDER CARE CARE CARE CLIENT PER 15 MIN HOME S5170 KE [facility] 7 CO. ADULT CO. ADULT MEALS DAY DAY INCLUDING ELDER ELDER PREPARATI ON; PER MEAL DAY CARE S[address] [facility] [address] ADULT; ELDER ELDER PER 15 CARE CARE MINUTES DAY CARE S[address] [facility] [address] ADULT; ELDER ELDER PER 15 CARE CARE MINUTES HOME S5170 KE [facility] 7 CO. ADULT CO. ADULT MEALS DAY DAY INCLUDING ELDER ELDER PREPARATI ON; PER MEAL HOME CARE S5108 [facility] [address] [place] [address] ELDER ELDER CARE CARE CARE CLIENT PER 15 MIN HOME CARE S5108 KE [facility] [address] [place] [address] ELDER ELDER CARE CARE CARE CLIENT PER 15 MIN HOME S5170 KE [facility] 7 CO. ADULT CO. ADULT MEALS DAY DAY INCLUDING ELDER ELDER PREPARATI ON; PER MEAL DAY CARE S[address] [facility] [address] ADULT; ELDER ELDER PER 15 CARE CARE MINUTES DAY CARE S[address] [facility] [address] ADULT; ELDER ELDER PER 15 CARE CARE MINUTES HOME S5170 KE [facility] 7 CO. ADULT CO. ADULT MEALS DAY DAY INCLUDING ELDER ELDER PREPARATI ON; PER MEAL HOME CARE S5108 [facility] [address] [place] [address] ELDER ELDER CARE CARE CARE CLIENT PER 15 MIN HOME CARE S5108 [facility] [address] [place] [address] ELDER ELDER CARE CARE CARE CLIENT PER 15 MIN HOME S5170 KE [facility] 7 CO. ADULT CO. ADULT MEALS DAY DAY INCLUDING ELDER ELDER PREPARATI ON; PER MEAL DAY CARE S[address] [facility] [address] ADULT; ELDER ELDER PER 15 CARE CARE MINUTES DAY CARE S[address] [facility] [address] ADULT; ELDER ELDER PER 15 CARE CARE MINUTES HOME S5170 KE [facility] 7 CO. ADULT CO. ADULT MEALS DAY DAY INCLUDING ELDER ELDER PREPARATI ON; PER MEAL HOME CARE S5108 [facility] TRAINING [address] [place] [address] ELDER ELDER CARE CARE CARE CLIENT PER 15 MIN HOME CARE S5108 [facility] [address] [place] [address] ELDER ELDER CARE CARE CARE CLIENT PER 15 MIN HOME S5170 [facility] 7 CO. ADULT CO. ADULT MEALS DAY DAY INCLUDING ELDER ELDER PREPARATI ON; PER MEAL DAY CARE S[address] [facility] [address] ADULT; ELDER ELDER PER 15 CARE CARE MINUTES DAY CARE S5100 [facility] [address] ADULT; ELDER ELDER PER 15 CARE CARE MINUTES HOME CARE S5108 [facility] TRAINING [address] [place] [address] ELDER ELDER CARE CARE CARE CLIENT PER 15 MIN HOME CARE S5108 [facility] TRAINING [address] [place] [address] ELDER ELDER CARE CARE CARE CLIENT PER 15 MIN DAY CARE S5100 [facility] [address] ADULT; ELDER ELDER PER 15 CARE CARE MINUTES HOME S5170 [facility] 7 CO. ADULT CO. ADULT MEALS DAY DAY INCLUDING ELDER ELDER PREPARATI ON; PER MEAL RADIOLOGI [id number] [facility] [facility] 7 MEDICAL EXAMINATI IMAGING ON CHEST ASS SING[place] FRONTAL RADIOLOGI [id number] [facility] EXAM 7 MEDICAL CHEST 2 IMAGING VIEWS ASS FRONTAL&L ATERAL RADIOLOGI 69339 [facility] EXAM 7 PHYSICIAN CHEST 2 S, PLLC VIEWS FRONTAL&L ATERAL RADEX 84362 [facility] [facility] SHOULDER 7 MEDICAL COMPLETE IMAGING MINIMUM [address] [place] [address] [facility] HEAD/BRAI 7 MEDICAL N W/O IMAGING CONTRAST ASS MATERIAL RADEX HIP 16893 [facility] 7 MEDICAL UNILATERA IMAGING L WITH ASS PELVIS 2-3 VIEWS HOME CARE S5108 [facility] [address] ELDER ELDER CARE CARE CARE CLIENT PER 15 MIN HOME S5170 [facility] 7 CO. ADULT CO. ADULT MEALS DAY DAY INCLUDING ELDER ELDER PREPARATI ON; PER MEAL GROUND A0425 [facility] 7 AMBULANCE AMBULANCE PER SERVICE SERVICE STATUTE MILE AMBULANCE A0429 [facility] 7 AMBULANCE AMBULANCE BLS SERVICE SERVICE EMERGENCY TRANSPORT HOME S5170 [facility] 7 CO. ADULT CO. ADULT MEALS DAY DAY INCLUDING ELDER ELDER PREPARATI ON; PER MEAL DAY CARE S[address]100 [facility] [address] ADULT; ELDER ELDER PER 15 CARE CARE MINUTES HOME CARE S5108 [facility] [address] ELDER ELDER CARE CARE CARE CLIENT PER 15 MIN HOME CARE S5108 [facility] [address] ELDER ELDER CARE CARE CARE CLIENT PER 15 MIN HOME S5170 KE [facility] 7 CO. ADULT CO. ADULT MEALS DAY DAY INCLUDING ELDER ELDER PREPARATI ON; PER MEAL HOME S5170 [facility] 7 CO. ADULT CO. ADULT MEALS DAY DAY INCLUDING ELDER ELDER PREPARATI ON; PER MEAL DAY CARE S5100 [facility] [address] ADULT; ELDER ELDER PER 15 CARE CARE MINUTES HOME CARE S5108 [facility] [address] ELDER ELDER CARE CARE CARE CLIENT PER 15 MIN HOME CARE S5108 [facility] [address] ELDER ELDER CARE CARE CARE CLIENT PER 15 MIN SCREENING 88013 [facility] MAMMOGRAP INC INC HY BI 2-VIEW BREAST INC CAD SCREENING G0202 [place] [address] MEDICAL MAMMOGRAP IMAGING HY JULY ASS INCL CAD WHEN PERFORMD DAY CARE S5100 [facility] [address] ADULT; ELDER ELDER PER 15 CARE CARE MINUTES HOME S5170 [facility] 7 CO. ADULT CO. ADULT MEALS DAY INCLUDING ELDER ELDER PREPARATI ON; PER MEAL HOME S5170 [facility] 7 CO. ADULT CO. ADULT MEALS DAY INCLUDING ELDER ELDER PREPARATI ON; PER MEAL DAY CARE S[address] ADULT; ELDER ELDER PER 15 CARE CARE MINUTES HOME CARE S5108 [facility] [address] [place] [address] ELDER ELDER CARE CARE CARE CLIENT PER 15 MIN HOME CARE S5108 KE [facility] [address] ELDER ELDER CARE CARE CARE CLIENT PER 15 MIN [facility]100 [facility] [address] ADULT; ELDER ELDER PER 15 CARE CARE MINUTES HOME S5170 KE [facility] 7 CO. ADULT CO. ADULT MEALS DAY DAY INCLUDING ELDER ELDER PREPARATI ON; PER MEAL HOME S5170 KE [facility] 7 CO. ADULT CO. ADULT MEALS DAY DAY INCLUDING ELDER ELDER PREPARATI ON; PER [facility] S5100 [facility] [address] ADULT; ELDER ELDER PER 15 CARE CARE MINUTES HOME CARE S5108 KE [facility] [address] ELDER ELDER CARE CARE CARE CLIENT PER 15 MIN NONEMERG A0120 FEDERATED FEDERATED TRNSPRT: 7 MINI-BUS TRANSPORT TRANSPORT MTN ATION SER ATION SER [facility] HOME CARE S5108 KE [facility] [address] [place] [address] HOME ELDER ELDER CARE CARE CARE CLIENT PER 15 MIN DAY CARE S5100 [facility] [address] ADULT; ELDER ELDER PER 15 CARE CARE MINUTES HOME S5170 KE G[facility] 7 CO. ADULT CO. ADULT MEALS DAY DAY INCLUDING ELDER ELDER PREPARATI ON; PER MEAL HOME S5170 KE [facility] 7 CO. ADULT CO. ADULT MEALS DAY DAY INCLUDING ELDER ELDER PREPARATI ON; PER MEAL DAY CARE S5100 [facility] [address] ADULT; ELDER ELDER PER 15 CARE CARE MINUTES HOME CARE S5108 KE [facility] [address] [place] [address] ELDER ELDER CARE CARE CARE CLIENT PER 15 MIN HOME CARE S5108 KE [facility] TRAINING [address] [place] [address] ELDER ELDER CARE CARE CARE CLIENT PER 15 MIN DAY CARE S5100 [facility] [address] ADULT; ELDER ELDER PER 15 CARE CARE MINUTES HOME S5170 KE [facility] 7 CO. ADULT CO. ADULT MEALS DAY DAY INCLUDING ELDER ELDER PREPARATI ON; PER MEAL HOME S5170 KE [facility] 7 CO. ADULT CO. ADULT MEALS DAY DAY INCLUDING ELDER ELDER PREPARATI ON; PER MEAL HOME CARE S5108 KE [facility] [address] [place] [address] ELDER ELDER CARE CARE CARE CLIENT PER 15 MIN HOME CARE S5108 KE [facility] [address] ELDER ELDER CARE CARE CARE CLIENT PER 15 MIN HOME S5170 KE GON[facility] 7 CO. ADULT CO. ADULT MEALS DAY DAY INCLUDING ELDER ELDER PREPARATI ON; PER MEAL DAY CARE S5100 [address] [facility] [address] ADULT; ELDER ELDER PER 15 CARE CARE MINUTES DAY CARE S5100 [facility] [address] ADULT; ELDER ELDER PER 15 CARE CARE MINUTES HOME S5170 KE [facility] 7 CO. ADULT CO. ADULT MEALS DAY DAY INCLUDING ELDER ELDER PREPARATI ON; PER MEAL HOME CARE S5108 KE [facility] [address] ELDER ELDER CARE CARE CARE CLIENT PER 15 MIN HOME CARE S5108 KE [facility] TRAINING 7 [facility] ELDER ELDER CARE CARE CARE CLIENT PER 15 MIN HOME S5170 KE [facility] 7 CO. ADULT CO. ADULT MEALS DAY DAY INCLUDING ELDER ELDER PREPARATI ON; PER MEAL DAY CARE S5100 [facility] [address] [place] [address] ADULT; ELDER ELDER PER 15 CARE CARE MINUTES DAY CARE S5100 [facility] [address] [place] [address] ADULT; ELDER ELDER PER 15 CARE CARE MINUTES HOME CARE S5108 KE [facility] TRAINING 7 [facility] ELDER ELDER CARE CARE CARE CLIENT PER 15 MIN HOME CARE S5108 KE [facility] TRAINING 7 [facility] ELDER ELDER CARE CARE CARE CLIENT PER 15 MIN DAY CARE S5100 [facility] [address] [place] [address] ADULT; ELDER ELDER PER 15 CARE CARE MINUTES DAY CARE S5100 [facility] [address] [place] [address] ADULT; ELDER ELDER PER 15 CARE CARE MINUTES HOME CARE S5108 KE [facility] [address] [place] [address] ELDER ELDER CARE CARE CARE CLIENT PER 15 MIN DAY CARE S5100 [facility] [address] [place] [address] ADULT; ELDER ELDER PER 15 CARE CARE MINUTES HOME CARE S5108 KE [facility] [address] [place] [address] ELDER ELDER CARE CARE CARE CLIENT PER 15 MIN DAY CARE S5100 [facility] [address] [place] [address] ADULT; ELDER ELDER PER 15 CARE CARE MINUTES HOME CARE S5108 KE [facility] [address] [place] [address] ELDER ELDER CARE CARE CARE CLIENT PER 15 MIN HOME CARE S5108 KE [facility] TRAINING [address] [place] [address] ELDER ELDER CARE CARE CARE CLIENT PER 15 MIN DAY CARE S5100 [facility] [address] [place] [address] ADULT; ELDER ELDER PER 15 CARE CARE MINUTES DAY CARE S5100 [facility] [address] [place] [address] ADULT; ELDER ELDER PER 15 CARE CARE MINUTES HOME CARE S5108 KE [facility] [address] [place] [address] ELDER ELDER CARE CARE CARE CLIENT PER 15 MIN HOME CARE S5108 KE [facility] TRA[facility] [address] [place] [address] ELDER ELDER CARE CARE CARE CLIENT PER 15 MIN DAY CARE S5100 [facility] [address] [place] [address] ADULT; ELDER ELDER PER 15 CARE CARE MINUTES DAY CARE S5100 [facility] [address] [place] [address] ADULT; ELDER ELDER PER 15 CARE CARE MINUTES HOME CARE S5108 KE [facility] TRAINING 7 [facility] ELDER ELDER CARE CARE CARE CLIENT PER 15 MIN HOME CARE S5108 KE [facility] TRAINING [address] [place] [address] ELDER ELDER CARE CARE CARE CLIENT PER 15 MIN DAY CARE S5100 [facility] [address] [place] [address] ADULT; ELDER ELDER PER 15 CARE CARE MINUTES DAY CARE S5100 [facility] [address] [place] [address] ADULT; ELDER ELDER PER 15 CARE CARE MINUTES HOME CARE S5108 KE [facility] TRAINING 7 [facility] ELDER ELDER CARE CARE CARE CLIENT PER 15 MIN HOME CARE S5108 KE [facility] [address] [place] [address] ELDER ELDER CARE CARE CARE CLIENT PER 15 MIN DAY CARE S5100 [facility] [address] [place] [address] ADULT; ELDER ELDER PER 15 CARE CARE MINUTES DAY CARE S5100 [facility] [address] [place] [address] ADULT; ELDER ELDER PER 15 CARE CARE MINUTES HOME CARE S5108 KE [facility] [address] [place] [address] ELDER ELDER CARE CARE CARE CLIENT PER 15 MIN OPHTH [address] [place] [address] [facility] COMPRHNSV ESTAB PT 1/> HOME CARE S5108 KE [facility] [address] [place] [address] ELDER ELDER CARE CARE CARE CLIENT PER 15 MIN DAY CARE S5100 [facility] [address] [place] [address] ADULT; ELDER ELDER PER [place] [address] KE KE STREPTOCO 7 [facility] [place] [address] KE KE INFUSION 7 [facility] THERAPY/P INC INC ROPHYLAXI S /DX 1ST TO 1 HR CUL BACT 90192 KE KE XCPT 7 [facility] URINE INC INC BLOOD/STO OL AEROBIC ISOL BLOOD 99072 KE KE COUNT 7 [facility] COMPLETE INC INC AUTO&[place] [address] KE KE INFUSION 7 [facility] THERAPY INC INC PROPHYLAX IS/DX EA HOUR RADIOLOGI 35360 SRINATH [place] 7 MEDICAL EXAMINATI IMAGING ON CHEST ASS SING[place] FRONTAL GROUND A0425 [facility] AMBULANCE PER SERVICE SERVICE STATUTE MILE AMBULANCE A0429 [facility] 7 AMBULANCE AMBULANCE B[place] [address] KE KE INFUSION 7 [facility] THER INC INC PROPH ADDL SEQUENTIA L TO 1 HR COMPREHEN 92572 KE [facility] SIVE 7 [facility] METABOLIC INC INC PANEL NONEMERG A0120 FEDERATED FEDERATED TRNSPRT: 7 MINI-BUS TRANSPORT TRANSPORT MTN [facility]/OT SYS DAY CARE S5100 [facility] [address] ADULT; ELDER ELDER PER 15 CARE [...] PREPARATI ON; PER MEAL DAY CARE S[address] ADULT; ELDER ELDER PER 15 CARE CARE MINUTES NONEMERG A0120 FEDERATED FEDERATED TRNSPRT: 7 MINI-BUS TRANSPORT TRANSPORT [facility]/OT SYS DAY CARE S[address] ADULT; ELDER ELDER PER 15 CARE [...] PREPARATI ON; PER MEAL DAY CARE S[address] ADULT; ELDER ELDER PER 15 CARE [...] PREPARATI ON; PER MEAL DAY CARE S[address] ADULT; ELDER ELDER PER 15 CARE CARE MINUTES DAY CARE S[address] ADULT; ELDER ELDER PER 15 CARE [...] ELDER ELDER PREPARATI ON; PER MEAL THERAPEUT 78553 KE DEMP[facility] IC PX 1/> 7 [facility] AREAS INC INC EACH 15 MIN EXERCISES DAY CARE S[address] ADULT; ELDER ELDER PER 15 CARE CARE MINUTES APPLICATI 72845 KE [facility] ON 7 [facility] MODALITY INC INC 1/> AREAS HOT/COLD PACKS APPL 01053 KE [facility] MODALITY 7 [facility] 1/> AREAS INC INC ULTRASOUN D EA 15 MIN APPL 40545 KE [facility] MODALITY 7 [facility] 1/> AREAS INC INC ELEC STIMJ UNATTENDE D DAY CARE S5100 [facility] [address] [place] [address] ADULT; ELDER ELDER PER 15 CARE CARE MINUTES THERAPEUT 94556 KE DEMPSEY IC PX 1/> 7 [facility] AREAS INC INC EACH 15 MIN EXERCISES APPL 25599 KE [facility] MODALITY 7 [facility] 1/> AREAS INC INC ULTRASOUN D EA 15 MIN APPLICATI 87069 KE [facility] ON 7 [facility] MODALITY INC INC 1/> AREAS HOT/COLD PACKS NONEMERG A0120 FEDERATED FEDERATED TRNSPRT: 7 MINI-BUS TRANSPORT TRANSPORT MTN ATION SER ATION SER [facility]/OT SYS APPL 66540 KE [facility] MODALITY 7 [facility] 1/> AREAS INC INC ELEC STIMJ UNATTENDE D HOME S5170 KE [facility] 7 CO. ADULT CO. ADULT MEALS DAY DAY INCLUDING ELDER ELDER PREPARATI ON; PER MEAL DAY CARE S5100 [facility] [address] ADULT; ELDER ELDER PER 15 CARE CARE MINUTES PHYSICAL 47060 KE [facility] THERAPY 7 [facility] EVALUATIO INC INC N MOD COMPLEX 30 MINS DAY CARE S5100 KE [facility] [address] ADULT; ELDER ELDER PER 15 CARE CARE MINUTES HOME S5170 KE [facility] 7 CO. ADULT CO. ADULT MEALS DAY DAY INCLUDING ELDER ELDER PREPARATI ON; PER MEAL NONEMERG A0120 FEDERATED FEDERATED TRNSPRT: 7 MINI-BUS TRANSPORT TRANSPORT MTN ATION SER ATION SER [facility]/OT SYS DAY CARE S5100 [facility] [address] ADULT; ELDER ELDER PER 15 CARE CARE MINUTES DAY CARE S5100 [facility] [address] ADULT; ELDER ELDER PER 15 CARE CARE MINUTES DRUG 86789 LAB OTIS LAB OTIS SCREEN 7 YFN YFN [employer] SWAPNIL LEVETIRAC ETAM NONEMERG A0120 FEDERATED FEDERATED TRNSPRT: 7 MINI-BUS TRANSPORT TRANSPORT MTN ATION SER ATION SER AREA/[place] [address] COMBINED COMBINED FREE 7 PHYSICIAN PHYSIC[place] [address] COMBINED COMBINED THYROID 7 PHYSICIAN PHYSICIAN STIMULATI S LA S LA NG HORMONE TSH LIPID 01938 COMBINED COMBINED PANEL 7 PHYSICIAN PHYSICIAN S LA S LA BLOOD 88545 COMBINED COMBINED COUNT 7 PHYSICIAN PHYSICIAN COMPLETE S LA S LA AUTO&AUTO DIFRNTL WBC COMPREHEN 10117 COMBINED COMBINED SIVE 7 PHYSICIAN PHYSICIAN METABOLIC S LA S LA PANEL THERAPEUT 61935 [facility] 7 PHYSICIAN PROPHYLAC S GROUP TIC/DX INJECTION SUBQ/IM INJECTION J1100 [facility] 7 PHYSICIAN DEXAMETHO S GROUP SONE SODIUM PHOSPHATE 1 MG INJECTION J0696 [facility] 7 PHYSICIAN CEFTRIAXO S GROUP NE SODIUM PER 250 MG FOR DIAB A5512 [facility] MX 7 MEDICAL MEDICAL DNSITY SUPPLY SUPPLY [employer] FORMD PRFAB EA DIAB ONLY A5500 [facility] FIT CSTM 7 MEDICAL MEDICAL PREP&SPL SUPPLY SUPPLY [employer] DNSITY INSRT SBSQ 83412 [facility] 7 FACILITY CARE/DAY E/M STABLE 10 MIN NONEMERG A0120 FEDERATED FEDERATED TRNSPRT: 7 MINI-BUS TRANSPORT TRANSPORT MTN ATION SER ATION SER AREA/OT SYS DRUG 91584 LAB OTIS LAB OTIS SCREEN 7 [facility] YFN [employer] HOLDINGS SWAPNIL LEVETIRAC ETAM NONEMERG A0120 FEDERATED FEDERATED TRNSPRT: 7 MINI-BUS TRANSPORT TRANSPORT MTN ATION SER ATION SER AREA/OT SYS SBSQ 40613 [facility] NURSING 7 FACILITY CARE/DAY E/M STABLE 10 MIN NONEMERG A0120 FEDERATED FEDERATED TRNSPRT: 7 MINI-BUS TRANSPORT TRANSPORT MTN ATION SER ATION SER AREA/OTH SYS NONEMERG A0120 FEDERATED FEDERATED TRNSPRT: 7 MINI-BUS TRANSPORT TRANSPORT MTN ATION SER ATION SER AREA/OTH SYS DRUG 70328 LAB OTIS LAB OTIS SCREEN 7 YFN YFN [employer] SWAPNIL LEVETIRAC ETAM NONEMERG A0120 FEDERATED FEDERATED TRNSPRT: 7 MINI-BUS TRANSPORT [facility] [address] ANNUAL 7 NURSING FACILITY ASSESS STABLE 30 MIN DRUG 43770 COMBINED COMBINED SCREEN 7 PHYSICIAN PHYSICIAN QUANTITAT S LA S LA SWAPNIL PHENYTOIN TOTAL NONEMERG A0120 FEDERATED FEDERATED TRNSPRT: 7 MINI-BUS TRANSPORT TRANSPORT [facility] NONEMERG A0120 FEDERATED FEDERATED TRNSPRT: 7 MINI-BUS TRANSPORT TRANSPORT MTN ATION SER [facility] SER AREA/OTH SYS GROUND A0425 [facility] 7 AMBULANCE AMBULANCE PER SERVICE SERVICE STATUTE MILE AMBULANCE A0429 [facility] 7 AMBULANCE AMBULANCE BLS SERVICE SERVICE EMERGENCY TRANSPORT RADEX HIP 68001 [facility] 7 MEDICAL UNILATERA IMAGING L WITH ASS PELVIS 2-3 VIEWS RADIOLOGI 03384 [facility] 7 MEDICAL EXAMINATI IMAGING ON KNEE 3 ASS VIEWS RADEX 59025 [facility] SPINE 7 MEDICAL LUMBOSACR IMAGING AL 2/3 ASS VIEWS DRUG 99772 LAB OTIS LAB OTIS SCREEN 7 YFN YFN [employer] SWAPNIL LEVETIRAC ETAM DRUG 28971 COMBINED COMBINED SCREEN 7 PHYSICIAN PHYSICIAN QUANTITAT S LA S LA SWAPNIL PHENYTOIN TOTAL RADIOLOGI 14756 [facility] 6 MEDICAL EXAMINATI IMAGING ON CHEST ASS SINGLE VIEW FRONTAL AMBULANCE A0429 [facility] 6 AMBULANCE AMBULANCE BLS SERVICE SERVICE EMERGENCY TRANSPORT GROUND A0425 [facility] 6 AMBULANCE AMBULANCE PER SERVICE SERVICE STATUTE MILE DRUG 47490 COMBINED COMBINED SCREEN 6 PHYSICIAN PHYSICIAN QUANTITAT S LA S LA SWAPNIL PHENYTOIN TOTAL SBSQ 46243 [facility] 6 FACILITY CARE/DAY E/M STABLE 10 MIN NONEMERG A0120 FEDERATED FEDERATED TRNSPRT: 6 MINI-BUS TRANSPORT TRANSPORT MTN ATION SER ATION SER AREA/OTH SYS NONEMERG A0120 FEDERATED FEDERATED TRNSPRT: 6 MINI-BUS TRANSPORT TRANSPORT MTN ATION SER [facility] SER AREA/OTH SYS GROUND A0425 [facility] 6 AMBULANCE AMBULANCE PER SERVICE SERVICE STATUTE MILE AMBULANCE A0429 [facility] 6 AMBULANCE AMBULANCE BLS SERVICE SERVICE EMERGENCY TRANSPORT DRUG 58081 COMBINED COMBINED SCREEN 6 PHYSICIAN PHYSICIAN QUANTITAT S LA S LA SWAPNIL PHENYTOIN TOTAL DRUG 02042 LAB OTIS LAB OTIS SCREEN 6 YFN YFN [employer] SWAPNIL LEVETIRAC ETAM NONEMERG A0120 FEDERATED FEDERATED TRNSPRT: 6 MINI-BUS TRANSPORT TRANSPORT MTN ATION SER [facility] SER AREA/OTH SYS SBSQ 60284 [facility] 6 [facility] FACILITY CARE/DAY E/M STABLE 10 MIN NONEMERG A0120 FEDERATED FEDERATED TRNSPRT: 6 MINI-BUS TRANSPORT TRANSPORT MTN ATION SER ATION SER AREA/OTH SYS DRUG 08633 COMBINED COMBINED SCREEN 6 PHYSICIAN PHYSICIAN QUANTITAT S LA S LA SWAPNIL PHENYTOIN TOTAL GROUND A0425 [facility] 6 AMBULANCE AMBULANCE PER SERVICE SERVICE STATUTE MILE AMBULANCE A0429 [facility] 6 AMBULANCE AMBULANCE BLS SERVICE SERVICE EMERGENCY TRANSPORT DRUG 14839 LAB OTIS LAB OTIS SCREEN 6 YFN YFN [employer] SWAPNIL LEVETIRAC ETAM AMBULANCE A0429 [facility] 6 AMBULANCE AMBULANCE BLS SERVICE SERVICE EMERGENCY TRANSPORT GROUND A0425 [facility] 6 AMBULANCE AMBULANCE PER SERVICE SERVICE STATUTE MILE RADEX 75134 [facility] ALL WRIST 6 MEDICAL COMPLETE IMAGING MINIMUM 3 ASS VIEWS GLUC BLD 87239 KE TRIANA MNTR 6 [facility] DEV INC INC CLEARED FDA SPEC HOME USE SBSQ 07249 [facility] 6 [facility] FACILITY CARE/DAY E/M STABLE 10 MIN GROUND A0425 [facility] 6 AMBULANCE AMBULANCE PER SERVICE SERVICE STATUTE MILE AMBULANCE A0429 [facility] 6 AMBULANCE AMBULANCE BLS SERVICE SERVICE EMERGENCY TRANSPORT DRUG 75768 COMBINED COMBINED SCREEN 6 PHYSICIAN PHYSICIAN QUANTITAT S LA S LA SWAPNIL PHENYTOIN TOTAL AMB A0427 [facility] 6 AMBULANCE AMBULANCE ALS SERVICE SERVICE EMERGENCY TRANSPORT LEVEL 1 ECG 66143 KE [facility] JR ROUTINE 6 [facility] W/LEAST P 12 LDS I&R ONLY RADIOLOGI 88227 SRINATH CHEUNG ALL C 6 MEDICAL EXAMINATI IMAGING ON CHEST ASS SINGLE VIEW FRONTAL GROUND A0425 [facility] MILEAGE 6 AMBULANCE AMBULANCE PER SERVICE SERVICE STATUTE MILE GROUND A0425 [facility] 6 AMBULANCE AMBULANCE PER SERVICE SERVICE STATUTE MILE AMB A0427 [facility] SERVICE 6 AMBULANCE AMBULANCE ALS SERVICE SERVICE EMERGENCY TRANSPORT LEVEL 1 DRUG 24178 COMBINED COMBINED SCREEN 6 PHYSICIAN PHYSICIAN QUANTITAT S LA S LA SWAPNIL PHENYTOIN TOTAL SBSQ 90608 [facility] NUR[facility] 6 [facility] FACILITY CARE/DAY E/M STABLE 10 MIN DRUG 37134 COMBINED COMBINED SCREEN 6 PHYSICIAN PHYSICIAN QUANTITAT S LA S LA SWAPNIL PHENYTOIN TOTAL DRUG 21777 LAB OTIS LAB OTIS SCREEN 6 YFN YFN [employer] SWAPNIL LEVETIRAC ETAM GROUND A0425 [facility] MILEAGE 6 AMBULANCE AMBULANCE PER SERVICE SERVICE STATUTE MILE AMBULANCE A0429 [facility] 6 AMBULANCE AMBULANCE BLS SERVICE SERVICE EMERGENCY TRANSPORT AMBULANCE A0429 [facility] 6 AMBULANCE AMBULANCE BLS SERVICE SERVICE EMERGENCY TRANSPORT GROUND A0425 [facility] 6 AMBULANCE AMBULANCE PER SERVICE SERVICE STATUTE MILE NONEMERG A0120 FEDERATED FEDERATED TRNSPRT: 6 MINI-BUS TRANSPORT TRANSPORT MTN ATION SER ATION SER AREA/OTH SYS DRUG 96842 LAB OTIS LAB OTIS SCREEN 6 YFN YFN [employer] SWAPNIL LEVETIRAC ETAM COMPREHEN 01875 KE [facility] SIVE 6 [facility] [place] [address] [facility] CERVICAL 6 MEDICAL SPINE W/O IMAGING CONTRAST ASS MATERIAL GROUND A0425 [facility] 6 AMBULANCE AMBULANCE PER SERVICE SERVICE STATUTE MILE DRUG 65337 KE [facility] SCREEN 6 [facility] QUANTITAT INC INC SWAPNIL PHENYTOIN TOTAL COLLECTIO 67602 KE KE N VENOUS 6 [facility] BLOOD INC INC VENIPUNCT URE AMB A0427 [facility] SERVICE 6 AMBULANCE AMBULANCE ALS SERVICE SERVICE [place] [address] KE KE HEAD/BRAI 6 [facility] N W/O INC INC CONTRAST MATERIAL BLOOD 15477 KE [facility] COUNT 6 [facility] COMPLETE INC INC AUTO&AUTO DIFRNTL WBC GROUND A0425 [facility] 6 AMBULANCE AMBULANCE PER SERVICE SERVICE STATUTE MILE AMBULANCE A0429 [facility] SERVICE 6 AMBULANCE AMBULANCE BLS SERVICE SERVICE EMERGENCY TRANSPORT AMBULANCE A0429 [facility] SERVICE 6 AMBULANCE AMBULANCE BLS SERVICE SERVICE EMERGENCY TRANSPORT GROUND A0425 [facility] 6 AMBULANCE AMBULANCE PER SERVICE SERVICE STATUTE MILE SIMPLE 97438 [facility] REPAIR 6 PHYSICIAN U BEN SCALP/NEC S, PLLC K/AX/TEJINDER T/TRUNK 2.5CM/< SCREENING G0202 [facility] 6 MEDICAL FIDEL MAMMOGRAP IMAGING HY JULY ASS INCL CAD WHEN PERFORMD 82491 [facility] AIDED 6 MEDICAL FIDEL DETECTION IMAGING ASS SCREENING MAMMOGRAP HY NONEMERG A0120 FEDERATED FEDERATED TRNSPRT: 6 MINI-BUS TRANSPORT TRANSPORT MTN ATION SER ATION SER AREA/OTH SYS DRUG 80618 LAB OTIS LAB OTIS SCREEN 6 YFN YFN [employer] [place] [address] [facility] CHEUNG ALL CERVICAL 6 MEDICAL SPINE W/O IMAGING CONTRAST ASS MATERIAL GROUND A0425 [facility] 6 AMBULANCE AMBULANCE PER SERVICE SERVICE STATUTE MILE AMBULANCE A0429 [facility] SERVICE 6 AMBULANCE AMBULANCE BLS SERVICE SERVICE EMERGENCY TRANSPORT CT LUMBAR 82556 [facility] [facility] SPINE 6 MEDICAL W/[place] [address] [facility] HEAD/BRAI 6 MEDICAL N W/O IMAGING CONTRAST ASS MATERIAL RADIOLOGI 02661 [place] [facility] C 6 MEDICAL EXAMINATI IMAGING ON TIBIA ASS & FIBULA 2 VIEWS NONEMERG A0120 FEDERATED FEDERATED TRNSPRT: 6 MINI-BUS TRANSPORT TRANSPORT [facility] NONEMERG A0120 FEDERATED FEDERATED TRNSPRT: 6 MINI-BUS TRANSPORT TRANSPORT [facility] GROUND A0425 [facility] 6 [...] AMBULANCE [place] [address] [facility] HEAD/BRAI 6 MEDICAL FIDEL N W/O IMAGING CONTRAST ASS MATERIAL AMB A0427 [facility] SERVICE 6 AMBULANCE AMBULANCE ALS SERVICE SERVICE EMERGENCY TRANSPORT LEVEL 1 NONEMERG A0120 FEDERATED FEDERATED TRNSPRT: 6 MINI-BUS TRANSPORT TRANSPORT [facility] GROUND A0425 [facility] 6 AMBULANCE AMBULANCE PER SERVICE SERVICE STATUTE MILE AMB A0427 [facility] 6 AMBULANCE AMBULANCE ALS SERVICE SERVICE EMERGENCY TRANSPORT LEVEL 1 AMB A0427 [facility] SERVICE 6 AMBULANCE AMBULANCE ALS SERVICE SERVICE EMERGENCY TRANSPORT LEVEL 1 RADIOLOGI 75728 [facility] C 6 [facility] EXAMINATI INC INC ON PELVIS 1/2 VIEWS GROUND A0425 [facility] MILEAGE 6 AMBULANCE AMBULANCE PER SERVICE SERVICE STATUTE MILE RADEX 92637 KE [facility] SPINE 6 [facility] LUMBOSACR INC INC AL MINIMUM 4 VIEWS GROUND A0425 [facility] MILEAGE 6 AMBULANCE AMBULANCE PER SERVICE SERVICE STATUTE MILE AMBULANCE A0429 [facility] SERVICE 6 AMBULANCE AMBULANCE BLS SERVICE SERVICE EMERGENCY [facility] A0120 FEDERATED FEDERATED TRNSPRT: 6 MINI-BUS TRANSPORT TRANSPORT [facility] GROUND A0425 [facility] MILEAGE 6 AMBULANCE AMBULANCE PER SERVICE SERVICE STATUTE MILE [facility] A0427 [facility] SERVICE 6 AMBULANCE AMBULANCE ALS SERVICE SERVICE EMERGENCY TRANSPORT LEVEL 1 [facility] A0120 FEDERATED FEDERATED TRNSPRT: 6 MINI-BUS TRANSPORT TRANSPORT [facility] DRUG 81094 LAB OTIS LAB OTIS SCREEN 6 YFN YFN [employer] LEVETIRAC ETAM [facility] A0120 FEDERATED FEDERATED TRNSPRT: 6 MINI-BUS TRANSPORT TRANSPORT [facility] GROUND A0425 [facility] MILEAGE 6 AMBULANCE AMBULANCE PER SERVICE SERVICE STATUTE MILE AMB A0427 [facility] SERVICE 6 AMBULANCE AMBULANCE ALS SERVICE SERVICE EMERGENCY TRANSPORT LEVEL 1 AMB A0427 [facility] SERVICE 6 AMBULANCE AMBULANCE ALS SERVICE SERVICE EMERGENCY TRANSPORT LEVEL 1 GROUND A0425 [facility] MILEAGE 6 AMBULANCE AMBULANCE PER SERVICE SERVICE STATUTE MILE GROUND A0425 [facility] MILEAGE 6 MEDICAL MEDICAL PER RESPONSE RESPONSE STATUTE MILE AMB A0422 [facility] OXYGEN&O2 6 MEDICAL MEDICAL SUPPLIES RESPONSE RESPONSE LIFE SUSTAININ G SITUATION ELECTROEN 31149 [place] BRIANNA CEPHALOGR 6 MEDICAL [place] AM W/REC SERV AWAKE&CARLIE FOUNDATIO WSY N AMB A0427 [facility] SERVICE 6 AMBULANCE AMBULANCE ALS SERVICE SERVICE EMERGENCY TRANSPORT LEVEL 1 RADIOLOGI 51970 [place] ALL C 6 MEDICAL EXAMINATI IMAGING [...] AMBULANCE [place] [address] KE DEMPSEY HEAD/BRAI 6 [facility] N W/[place] [address] KE DEMPSEY CERVICAL 6 [facility] SPINE W/O INC INC CONTRAST [...] SERVICE SERVICE [place] [address] [place] ALL HEAD/BRAI 6 MEDICAL N W/O IMAGING CONTRAST ASS MATERIAL RADIOLOGI 15572 [place] CHEUNG ALL C 6 MEDICAL EXAMINATI IMAGING ON CHEST ASS SINGLE VIEW FRONTAL AMBULANCE A0429 [facility] SERVICE 6 AMBULANCE AMBULANCE BLS SERVICE SERVICE EMERGENCY TRANSPORT GROUND A0425 [facility] MILEAGE 6 AMBULANCE AMBULANCE PER SERVICE SERVICE STATUTE MILE GROUND A0425 [facility] MILEAGE 6 AMBULANCE AMBULANCE PER SERVICE SERVICE STATUTE MILE [facility]OLOGI 72094 [facility] MEDICAL EXAMINATI IMAGING [place] [address] KE DEMPSEY HEAD/BRAI 6 [facility] N W/O INC INC CONTRAST MATERIAL AMB A0427 [facility] SERVICE 6 AMBULANCE AMBULANCE ALS SERVICE SERVICE EMERGENCY TRANSPORT LEVEL 1 NONEMERG A0120 FEDERATED FEDERATED TRNSPRT: 6 MINI-BUS TRANSPORT TRANSPORT [facility] SYS GROUND A0425 [facility] MILEAGE 6 AMBULANCE AMBULANCE PER SERVICE SERVICE STATUTE MILE AMB A0427 [facility] SERVICE 6 AMBULANCE AMBULANCE ALS SERVICE SERVICE [place] [address] [facility] [place] HEAD/BRAI 6 [facility] N W/[place] [address] [facility] CERVICAL 6 [facility] SPINE W/O INC INC CONTRAST MATERIAL NONEMERG A0120 FEDERATED FEDERATED TRNSPRT: 6 MINI-BUS TRANSPORT TRANSPORT [facility] SYS BLOOD 03184 [facility] COUNT 6 [facility] COMPLETE INC INC AUTO&AUTO DIFRNTL WBC QUANTITAT 26409 [facility] ION DRUG 6 [facility] NOT INC INC ELSEWHERE SPECIFIED DRUG 16634 [facility] SCREEN 6 [facility] QUANTITAT INC INC SWAPNIL PHENYTOIN TOTAL URNLS DIP 26295 [facility] 6 [facility] STICK/TAB INC INC LET REAGENT AUTO MICROSCOP Y DRUG 34682 [facility] SCREEN 6 [facility] QUANTITAT INC INC SWAPNIL PHENYTOIN TOTAL COLLECTIO 77577 COMBINED COMBINED N VENOUS 6 PHYSICIAN PHYSICIAN BLOOD S LA S LA VENIPUNCT URE BLOOD 84268 [facility] COUNT 6 [facility] COMPLETE INC INC AUTO&[place] [address] [facility] HEAD/BRAI 6 [facility] N W/O INC INC CONTRAST MATERIAL COMPREHEN 17570 [facility] SIVE 6 [facility] METABOLIC INC INC PANEL ELECTROEN 93623 [facility] CEPHALOGR 6 N N AM EXTEND COMMUNTIY COMMUNTIY HOSPITA HOSPITA MONITORIN G 41-60 MIN ELECTROEN 95619 [facility]ERRERA CEPHALOGR 6 N AM W/REC NEUROLOGY AWAKE&ASL EEP NONEMERG A0120 FEDERATED FEDERATED TRNSPRT: 6 MINI-BUS TRANSPORT [facility] 99983 [facility] SCREEN 6 [facility] QUANTITAT INC INC SWAPNIL PHENYTOIN TOTAL DRUG 32262 [facility] SCREEN 6 [facility] QUANTITAT INC INC SWAPNIL PHENYTOIN TOTAL RADIOLOGI 18744 [facility] C 6 [facility] EXAMINATI INC [place] [address] [facility] HEAD/BRAI 6 [facility] N W/O INC INC CONTRAST MATERIAL BLOOD 99133 [facility] COUNT 6 [facility] COMPLETE INC INC AUTO&AUTO DIFRNTL WBC COMPREHEN 44240 [facility] SIVE 6 [facility] METABOLIC INC INC PANEL NONEMERG A0120 FEDERATED FEDERATED TRNSPRT: 5 MINI-BUS TRANSPORT [facility] SYS CONTINUOU E0601 ZULEYMA AMOR S 5 HOME HOME POSITIVE MEDICAL MEDICAL AIRWAY EQUIPME EQUIPME PRESSURE DEVICE NONEMERG A0120 FEDERATED FEDERATED TRNSPRT: 5 MINI-BUS TRANSPORT TRANSPORT MTN [facility] S[facility] BLOOD 94231 [facility] COUNT 5 [facility] COMPLETE INC INC AUTO&AUTO DIFRNTL WBC GLUC BLD 24124 [facility] GLUC MNTR 5 [facility] DEV INC INC CLEARED FDA SPEC HOME USE GLUCOSE 39679 [facility] QUANTITAT 5 [facility] SWAPNIL BLOOD INC INC XCPT REAGENT STRIP URNLS DIP 10589 [facility] 5 [facility] STICK/TAB INC INC LET REAGENT AUTO MICROSCOP Y DRUG 05706 [facility] SCREEN 5 [facility] QUANTITAT INC INC SWAPNIL PHENYTOIN TOTAL COMPREHEN 92078 [facility] SIVE 5 [facility]OS[facility] METABOLIC INC INC PANEL COMPREHEN 51211 [facility] SIVE 5 N N METABOLIC COMMUNTIY COMMUNTIY PANEL HOSPITA HOSPITA COLLECTIO 75674 [facility] N VENOUS 5 N N BLOOD COMMUNTIY COMMUNTIY VENIPUNCT HOSPITA HOSPITA URE DRUG 15772 [facility] SCREEN 5 N N QUANTITAT COMMUNTIY COMMUNTIY SWAPNIL HOSPITA HOSPITA PHENYTOIN TOTAL BLOOD 16244 [facility] COUNT 5 N N COMPLETE COMMUNTIY COMMUNTIY AUTO&AUTO HOSPITA HOSPITA DIFRNTL WBC NONEMERG A0120 FEDERATED FEDERATED TRNSPRT: 5 MINI-BUS TRANSPORT TRANSPORT [facility]OTH SYS NONEMERG A0120 FEDERATED FEDERATED TRNSPRT: 5 MINI-BUS TRANSPORT TRANSPORT MTN [facility]/OTH SYS GLUC BLD 96531 [facility] GLUC MNTR 5 [facility] DEV INC [place] [address] [facility] INFUSION 5 [facility] THERAPY/P INC INC ROPHYLAXI S /DX 1ST TO 1 [place] [address] [facility] INFUSION 5 [facility] THERAPY INC INC PROPHYLAX IS/DX EA HOUR COLONOSCO 79439 [facility] PY FLX DX 5 [facility] W/COLLJ INC INC SPEC WHEN PFRMD CONTINUOU E0601 ZULEYMA AMOR S 5 HOME HOME POSITIVE MEDICAL MEDICAL AIRWAY EQUIPME EQUIPME PRESSURE DEVICE DRUG 61380 COMBINED COMBINED SCREEN 5 PHYSICIAN PHYSICIAN QUANTITAT S LA S LA SWAPNIL PHENYTOIN TOTAL COLLECTIO 68647 COMBINED COMBINED N VENOUS 5 PHYSICIAN PHYSICIAN BLOOD S LA S LA VENIPUNCT URE DRUG 74702 [facility] SCREEN 5 [facility] QUANTITAT [place] [address] [facility] [place] INFUSION 5 [facility] THERAPY/P INC INC ROPHYLAXI S /DX 1ST TO 1 HR BLOOD 51570 [facility] COUNT 5 [facility] COMPLETE INC INC AUTO&AUTO DIFRNTL WBC COMPREHEN 89363 [facility] SIVE 5 [facility] MEM [...] EQUIPME W/POS ARWAY PRESS DEVICE IIV4 VACC 92907 [facility] VIRUS 0.5 HLTH DEPT ML DOS BALTAZAR FOR IM USE CUL BACT 61736 COMBINED COMBINED XCPT 5 PHYSICIAN PHYSICIAN URINE S LA S LA BLOOD/STO OL AEROBIC ISOL NONEMERG A0120 FEDERATED FEDERATED TRNSPRT: 5 MINI-BUS TRANSPORT TRANSPORT MTN ATION SER ATION SER AREA/OTH SYS NONEMERG A0120 FEDERATED FEDERATED TRNSPRT: 5 MINI-BUS TRANSPORT TRANSPORT MTN ATION SER ATION SER AREA/OTH SYS NEEDLE 67610 [facility] EMG EA 5 N EXTREMTY NEUROLOGY W/PARASPI NL AREA COMPLETE NERVE 36325 [facility] JAVIER CONDUCTIO 5 N N STUDIES NEUROLOGY 9-10 STUDIES NONEMERG A0120 FEDERATED FEDERATED TRNSPRT: 5 MINI-BUS TRANSPORT [facility] NONEMERG A0120 FEDERATED FEDERATED TRNSPRT: 5 MINI-BUS TRANSPORT TRANSPORT MTN [facility] GROUND A0425 [facility] MILEAGE 5 AMBULANCE AMBULANCE PER SERVICE SERVICE STATUTE MILE AMBULANCE A0429 [facility] SERVICE 5 AMBULANCE AMBULANCE BLS SERVICE SERVICE EMERGENCY TRANSPORT RADIOLOGI 15455 [facility] C EXAM 5 MEDICAL FIDEL CHEST 2 IMAGING VIEWS ASS FRONTAL&L ATERAL NONEMERG A0120 FEDERATED FEDERATED TRNSPRT: 5 MINI-BUS TRANSPORT TRANSPORT [facility] NONEMERG A0120 FEDERATED FEDERATED TRNSPRT: 5 MINI-BUS TRANSPORT TRANSPORT [facility] NONEMERG A0120 FEDERATED FEDERATED TRNSPRT: 5 MINI-BUS TRANSPORT TRANSPORT MTN [facility] MRI 10839 [facility] MCQUEEN TRA SPINAL 5 [place] CANAL ORTHOPAED LUMBAR [facility] W/O CONTRAST MATERIAL [place]/CU [address] IKER DONG TTING 5 JAM JAM BENIGN HYPERKERA TOTIC LESION >4 TRIMMING 34959 IKER DONG NONDYSTRO 5 JAM JAM PHIC NAILS ANY NUMBER DEBRIDEME 00677 IKER DONG NT NAIL 5 JAM JAM ANY METHOD 1-5 NONEMERG A0120 FEDERATED FEDERATED TRNSPRT: 5 MINI-BUS TRANSPORT TRANSPORT MTN [facility] RADEX 30064 CENTRAL MCQUEEN TRA SPINE 5 [place] LUMBOSACR ORTHOPAED AL 2/3 [facility] VIEWS NONEMERG A0120 FEDERATED FEDERATED TRNSPRT: 5 MINI-BUS TRANSPORT TRANSPORT MTN [facility] SBSQ 79865 RICKIE [facility]IAN NURSING 5 [facility] CARE/DAY E/M STABLE 10 MIN SBSQ 71788 ARNBRAIN DAMIAN NURSING 5 [facility] CARE/DAY E/M STABLE 10 MIN DAY CARE S5100 THE THE SERVICES 5 [facility] ADULT; ADULT ADULT PER 15 DAY CARE DAY CARE MINUTES INITIAL 51521 ARNBRAIN DAMIAN NURSING 5 [facility] CARE/DAY 25 MINUTES DAY CARE S5100 THE THE SERVICES 5 [facility] ADULT; ADULT ADULT PER 15 DAY CARE DAY CARE MINUTES DAY CARE S5100 THE THE SERVICES [address] [place] [address] ADULT; ADULT ADULT PER 15 DAY CARE DAY CARE MINUTES DAY CARE S5100 THE THE SERVICES 5 [facility] ADULT; ADULT ADULT PER 15 DAY CARE DAY CARE MINUTES DAY CARE S5100 THE THE SERVICES [address] [place] [address] ADULT; ADULT ADULT PER 15 DAY CARE DAY CARE MINUTES DAY CARE S5100 THE THE SERVICES [address] [place] [address] ADULT; ADULT ADULT PER 15 DAY CARE DAY CARE MINUTES DAY CARE S5100 THE THE SERVICES [address] [place] [address] ADULT; ADULT ADULT PER 15 DAY CARE DAY CARE MINUTES DAY CARE S5100 THE THE SERVICES [address] [place] [address] ADULT; ADULT ADULT PER 15 DAY CARE DAY CARE MINUTES DAY CARE S5100 THE THE SERVICES [address] [place] [address] ADULT; ADULT ADULT PER 15 DAY CARE DAY CARE MINUTES DAY CARE S5100 THE THE SERVICES [address] [place] [address] ADULT; ADULT ADULT PER 15 DAY CARE DAY CARE MINUTES DAY CARE S5100 THE THE SERVICES [address] [place] [address] ADULT; ADULT ADULT PER 15 DAY CARE DAY CARE MINUTES DAY CARE S5100 THE THE SERVICES [address] [place] [address] ADULT; ADULT ADULT PER 15 DAY CARE DAY CARE MINUTES DAY CARE S5100 THE THE SERVICES [address] [place] [address] ADULT; ADULT ADULT PER 15 DAY CARE DAY CARE MINUTES DAY CARE S5100 THE THE SERVICES [address] [place] [address] ADULT; ADULT ADULT PER 15 DAY CARE DAY CARE MINUTES DAY CARE S5100 THE THE SERVICES [address] [place] [address] ADULT; ADULT ADULT PER 15 DAY CARE DAY CARE MINUTES DAY CARE S5100 THE THE SERVICES [address] [place] [address] ADULT; ADULT ADULT PER 15 DAY CARE DAY CARE MINUTES DAY CARE S5100 THE THE SERVICES [address] [place] [address] ADULT; ADULT ADULT PER 15 DAY CARE DAY CARE MINUTES DAY CARE S5100 THE THE SERVICES [address] [place] [address] ADULT; ADULT ADULT PER 15 DAY CARE DAY CARE MINUTES DAY CARE S5100 THE THE SERVICES [address] [place] [address] ADULT; ADULT ADULT PER 15 DAY CARE DAY CARE MINUTES DAY CARE S5100 THE THE SERVICES [address] [place] [address] ADULT; ADULT ADULT PER 15 DAY CARE DAY CARE MINUTES DAY CARE S5100 THE THE SERVICES [address] [place] [address] ADULT; ADULT ADULT PER 15 DAY CARE DAY CARE MINUTES DAY CARE S5100 THE THE SERVICES [address] [place] [address] ADULT; ADULT ADULT PER 15 DAY CARE DAY CARE MINUTES DAY CARE S5100 THE THE SERVICES [address] [place] [address] ADULT; ADULT ADULT PER 15 DAY CARE DAY CARE MINUTES DAY CARE S5100 THE THE SERVICES [address] [place] [address] ADULT; ADULT ADULT PER 15 DAY CARE DAY CARE MINUTES DAY CARE S5100 THE THE SERVICES [address] [place] [address] ADULT; ADULT ADULT PER 15 DAY CARE DAY CARE MINUTES DAY CARE S5100 THE THE SERVICES [address] [place] [address] ADULT; ADULT ADULT PER 15 DAY CARE DAY CARE MINUTES DAY CARE S[address] ADULT; ADULT ADULT PER 15 DAY CARE DAY CARE MINUTES DAY CARE S5[address] ADULT; ADULT ADULT PER 15 DAY CARE DAY CARE MINUTES DAY CARE S5[address] ADULT; ADULT ADULT PER 15 DAY CARE DAY CARE MINUTES DAY CARE S5[address] ADULT; ADULT ADULT PER 15 DAY CARE DAY CARE MINUTES DAY CARE S5100 THE THE SERVICES [address] [place] [address] ADULT; ADULT ADULT PER 15 DAY CARE DAY CARE MINUTES DAY CARE S5100 THE THE SERVICES [address] [place] [address] ADULT; ADULT ADULT PER 15 DAY CARE DAY CARE MINUTES DAY CARE S5100 THE THE SERVICES [address] [place] [address] ADULT; ADULT ADULT PER 15 DAY CARE DAY CARE MINUTES DAY CARE S5[address] ADULT; ADULT ADULT PER 15 DAY CARE DAY CARE MINUTES DAY CARE S5[address] ADULT; ADULT ADULT PER 15 DAY CARE DAY CARE MINUTES DAY CARE S5[address] ADULT; ADULT ADULT PER 15 DAY CARE DAY CARE MINUTES DAY CARE S5[address] ADULT; ADULT ADULT PER 15 DAY CARE DAY CARE MINUTES DAY CARE S5[address] ADULT; ADULT ADULT PER 15 DAY CARE DAY CARE MINUTES NONEMERGE A0100 [facility] NCY 5 INC TRANSPORT TRANSPORT REGION 9 ATION CO ATION; L TAXI DAY CARE S5100 THE [address] ADULT; ADULT ADULT PER 15 DAY CARE DAY CARE MINUTES DAY CARE S5100 THE [address] ADULT; ADULT ADULT PER 15 DAY CARE DAY CARE MINUTES DAY CARE S5[address] ADULT; ADULT ADULT PER 15 DAY CARE DAY CARE MINUTES DAY CARE S5[address] ADULT; ADULT ADULT PER 15 DAY CARE DAY CARE MINUTES DAY CARE S5[address] ADULT; ADULT ADULT PER 15 DAY CARE DAY CARE MINUTES DAY CARE S5[address] ADULT; ADULT ADULT PER 15 DAY CARE DAY CARE MINUTES DAY CARE S5[address] ADULT; ADULT ADULT PER 15 DAY CARE DAY CARE MINUTES DAY CARE S5[address] ADULT; ADULT ADULT PER 15 DAY CARE DAY CARE MINUTES DAY CARE S[address] ADULT; ADULT ADULT PER 15 DAY CARE DAY CARE MINUTES DAY CARE S5[address] ADULT; ADULT ADULT PER 15 DAY CARE DAY CARE MINUTES DAY CARE S5[address] ADULT; ADULT ADULT PER 15 DAY CARE DAY CARE MINUTES DAY CARE S5[address] ADULT; ADULT ADULT PER 15 DAY CARE DAY CARE MINUTES DAY CARE S[address] ADULT; ADULT ADULT PER 15 DAY CARE DAY CARE MINUTES DAY CARE S[address] ADULT; ADULT ADULT PER 15 DAY CARE DAY CARE MINUTES DAY CARE S5[address] ADULT; ADULT ADULT PER 15 DAY CARE DAY CARE MINUTES POLYSOM [address] 6/>YRS 5 CANDACE CANDACE SLEEP 4/> MED [facility] ADDL 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 ST 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 ST ALVARO ATTND DAY CARE S5[address] ADULT; ADULT ADULT PER 15 DAY CARE DAY CARE MINUTES DAY CARE S[address] ADULT; ADULT ADULT PER 15 DAY CARE DAY CARE MINUTES DAY CARE S5[address] ADULT; ADULT ADULT PER 15 DAY CARE DAY CARE MINUTES DAY CARE S5[address] ADULT; ADULT ADULT PER 15 DAY CARE DAY CARE MINUTES NONEMERGE A0100 [facility] NCY 5 INC TRANSPORT TRANSPORT REGION 9 ATION CO ATION; L TAXI DAY CARE S5100 [address] ADULT; ADULT ADULT PER 15 DAY CARE DAY CARE MINUTES DAY CARE S5[address] ADULT; ADULT ADULT PER 15 DAY CARE DAY CARE MINUTES DAY CARE S5[address] ADULT; ADULT ADULT PER 15 DAY CARE DAY CARE MINUTES DAY CARE S5[address] ADULT; ADULT ADULT PER 15 DAY CARE DAY CARE MINUTES DAY CARE S5[address] ADULT; ADULT ADULT PER 15 DAY CARE DAY CARE MINUTES DAY CARE S5[address] ADULT; ADULT ADULT PER 15 DAY CARE DAY CARE MINUTES DAY CARE S[address] ADULT; ADULT ADULT PER 15 DAY CARE DAY CARE MINUTES DAY CARE S[address] ADULT; ADULT ADULT PER 15 DAY CARE DAY CARE MINUTES ECG 81914 EXPRESS EXPRESS ROUTINE 5 MOBILE MOBILE ECG DIAGNOSTI DIAGNOSTI W/LEAST C SE C SE 12 LDS TRCG ONLY W/O I&R DAY CARE S5[address] ADULT; ADULT ADULT PER 15 DAY CARE DAY CARE MINUTES DAY CARE S5[address] ADULT; ADULT ADULT PER 15 DAY CARE DAY CARE MINUTES NONEMERGE A0100 [facility] INC TRANSP[facility] TRANSPORT REGION 9 ATION CO ATION; L TAXI DAY CARE S5[address] ADULT; ADULT ADULT PER 15 DAY CARE DAY CARE MINUTES DAY CARE S5[address] ADULT; ADULT ADULT PER 15 DAY CARE DAY CARE MINUTES DAY CARE S5[address] ADULT; ADULT ADULT PER 15 DAY CARE DAY CARE MINUTES DAY CARE S5[address] ADULT; ADULT ADULT PER 15 DAY CARE DAY CARE MINUTES DAY CARE S[address] ADULT; ADULT ADULT PER 15 DAY CARE DAY CARE MINUTES DAY CARE S5[address] ADULT; ADULT ADULT PER 15 DAY CARE DAY CARE MINUTES DAY CARE S5[address] ADULT; ADULT ADULT PER 15 DAY CARE DAY CARE MINUTES DAY CARE S[address] ADULT; ADULT ADULT PER 15 DAY CARE DAY CARE MINUTES DAY CARE S5[address] ADULT; ADULT ADULT PER 15 DAY CARE DAY CARE MINUTES NONEMERGE A0100 [facility] TRANSPORT TRANSPORT REGION 9 ATION CO ATION; L TAXI GENERAL 04810 [facility] HEALTH 5 YFN YFN PANEL [employer] HOLD[employer] HEMOGLOBI 80459 [facility] N 5 YFN YFN GLYCOSYLA [employer] [place] [address] [address] LAB [facility] THYROXINE 5 YFN YFN TOTAL [employer]INGS LIPID 01148 [facility] PANEL 5 YFN YFN [employer]INGS HOLDINGS DAY CARE S5100 THE THE SERVICES [address] [place] [address] ADULT; ADULT ADULT PER 15 DAY CARE DAY CARE MINUTES DAY CARE S[address] ADULT; ADULT ADULT PER 15 DAY CARE DAY CARE MINUTES DAY CARE S5[address] ADULT; ADULT ADULT PER 15 DAY CARE DAY CARE MINUTES DAY CARE S5[address] ADULT; ADULT ADULT PER 15 DAY CARE DAY CARE MINUTES NONEMERGE A0100 [facility] NCY 5 INC TRANSPORT TRANSPORT REGION 9 ATION CO ATION; L TAXI DAY CARE S5[address] ADULT; ADULT ADULT PER 15 DAY CARE DAY CARE MINUTES DAY CARE S5[address] ADULT; ADULT ADULT PER 15 DAY CARE DAY CARE MINUTES DAY CARE S5[address] ADULT; ADULT ADULT PER 15 DAY CARE DAY CARE MINUTES DAY CARE S5[address] ADULT; ADULT ADULT PER 15 DAY CARE DAY CARE MINUTES DAY CARE S5[address] ADULT; ADULT ADULT PER 15 DAY CARE DAY CARE MINUTES DAY CARE S5[address] ADULT; ADULT ADULT PER 15 DAY CARE DAY CARE MINUTES DAY CARE S5[address] ADULT; ADULT ADULT PER 15 DAY CARE DAY CARE MINUTES DAY CARE S5[address] ADULT; ADULT ADULT PER 15 DAY CARE DAY CARE MINUTES DAY CARE S5[address] THE [address] ADULT; ADULT ADULT PER 15 DAY CARE DAY CARE MINUTES DAY CARE S5[address] ADULT; ADULT ADULT PER 15 DAY CARE DAY CARE MINUTES DAY CARE S5[address] ADULT; ADULT ADULT PER 15 DAY CARE DAY CARE MINUTES DAY CARE S5[address] ADULT; ADULT ADULT PER 15 DAY CARE DAY CARE MINUTES NONEMERGE A0100 [facility] NCY 5 INC TRANSPORT TRANSPORT REGION 9 ATION CO ATION; L TAXI DAY CARE S5[address] THE [address] ADULT; ADULT ADULT PER 15 DAY CARE DAY CARE MINUTES DAY CARE S5100 THE THE SERVICES [address] [place] [address] ADULT; ADULT ADULT PER 15 DAY CARE DAY CARE MINUTES DAY CARE S5[address] ADULT; ADULT ADULT PER 15 DAY CARE DAY CARE MINUTES DAY CARE S5100 THE THE SERVICES [address] [place] [address] ADULT; ADULT ADULT PER 15 DAY CARE DAY CARE MINUTES DAY CARE S5100 THE THE SERVICES [address] [place] [address] ADULT; ADULT ADULT PER 15 DAY CARE DAY CARE MINUTES DAY CARE S5100 THE THE SERVICES [address] [place] [address] ADULT; ADULT ADULT PER 15 DAY CARE DAY CARE MINUTES DAY CARE S5[address] ADULT; ADULT ADULT PER 15 DAY CARE DAY CARE MINUTES DAY CARE S5[address] ADULT; ADULT ADULT PER 15 DAY CARE DAY CARE MINUTES DAY CARE S5[address] ADULT; ADULT ADULT PER 15 DAY CARE DAY CARE MINUTES DAY CARE S5[address] THE [address] ADULT; ADULT ADULT PER 15 DAY CARE DAY CARE MINUTES DAY CARE S5[address] ADULT; ADULT ADULT PER 15 DAY CARE DAY CARE MINUTES DAY CARE S5[address] ADULT; ADULT ADULT PER 15 DAY CARE DAY CARE MINUTES DAY CARE S[address] ADULT; ADULT ADULT PER 15 DAY CARE DAY CARE MINUTES DAY CARE S[address] ADULT; ADULT ADULT PER 15 DAY CARE DAY CARE MINUTES DAY CARE S5[address] ADULT; ADULT ADULT PER 15 DAY CARE DAY CARE MINUTES DAY CARE S[address] ADULT; ADULT ADULT PER 15 DAY CARE DAY CARE MINUTES DAY CARE S[address] ADULT; ADULT ADULT PER 15 DAY CARE DAY CARE MINUTES DAY CARE S[address] ADULT; ADULT ADULT PER 15 DAY CARE DAY CARE MINUTES DAY CARE S[address] ADULT; ADULT ADULT PER 15 DAY CARE DAY CARE MINUTES DAY CARE S[address] ADULT; ADULT ADULT PER 15 DAY CARE DAY CARE MINUTES DAY CARE S[address] ADULT; ADULT ADULT PER 15 DAY CARE DAY CARE MINUTES DAY CARE S5[address] ADULT; ADULT ADULT PER 15 DAY CARE DAY CARE MINUTES DAY CARE S5[address] ADULT; ADULT ADULT PER 15 DAY CARE DAY CARE MINUTES DAY CARE S5[address] ADULT; ADULT ADULT PER 15 DAY CARE DAY CARE MINUTES DAY CARE S5[address] ADULT; ADULT ADULT PER 15 DAY CARE DAY CARE MINUTES OVA&HAVEN 31212 [facility] ITES 4 [facility] DIRECT [employer] HOLDINGS SMEARS CONCENTRA TION & ID SMR PRIM [id number] LAB [facility] SRC CPLX 4 [facility] SPEC HOLDINGS HOLDINGS STAIN OVA&HAVEN ITS DAY CARE S[address] ADULT; ADULT ADULT PER 15 DAY CARE DAY CARE MINUTES DAY CARE S5[address] ADULT; ADULT ADULT PER 15 DAY CARE DAY CARE MINUTES DAY CARE S5[address] ADULT; ADULT ADULT PER 15 DAY CARE DAY CARE MINUTES DAY CARE S[address] ADULT; ADULT ADULT PER 15 DAY CARE DAY CARE MINUTES DAY CARE S5[address] ADULT; ADULT ADULT PER 15 DAY CARE DAY CARE MINUTES DAY CARE S5[address] ADULT; ADULT ADULT PER 15 DAY CARE DAY CARE MINUTES DAY CARE S5[address] ADULT; ADULT ADULT PER 15 DAY CARE DAY CARE MINUTES DAY CARE S5[address] ADULT; ADULT ADULT PER 15 DAY CARE DAY CARE MINUTES DAY CARE S5[address] ADULT; ADULT ADULT PER 15 DAY CARE DAY CARE MINUTES DAY CARE S5100 THE THE SERVICES [address] [place] [address] ADULT; ADULT ADULT PER 15 DAY CARE DAY CARE MINUTES DAY CARE S5100 THE THE SERVICES [address] [place] [address] ADULT; ADULT ADULT PER 15 DAY CARE DAY CARE MINUTES DAY CARE S5100 THE THE SERVICES [address] [place] [address] ADULT; ADULT ADULT PER 15 DAY CARE DAY CARE MINUTES NONEMERGE A0100 [facility] TRANSPORT TRANSPORT REGION 9 ATION CO ATION; L TAXI DAY CARE S5100 THE THE SERVICES [address] [place] [address] ADULT; ADULT ADULT PER 15 DAY CARE DAY CARE MINUTES DAY CARE S5100 THE THE SERVICES [address] [place] [address] ADULT; ADULT ADULT PER 15 DAY CARE DAY CARE MINUTES DAY CARE S5100 THE THE SERVICES [address] [place] [address] ADULT; ADULT ADULT PER 15 DAY CARE DAY CARE MINUTES DAY CARE S5100 [address] ADULT; ADULT ADULT PER 15 DAY CARE DAY CARE MINUTES DAY CARE S5100 [address] ADULT; ADULT ADULT PER 15 DAY CARE DAY CARE MINUTES DAY CARE S5100 THE THE SERVICES [address] [place] [address] ADULT; ADULT ADULT PER 15 DAY CARE DAY CARE MINUTES DAY CARE S5100 [address] ADULT; ADULT ADULT PER 15 DAY CARE DAY CARE MINUTES DAY CARE S5100 [address] ADULT; ADULT ADULT PER 15 DAY CARE DAY CARE MINUTES DAY CARE S5100 THE THE SERVICES [address] [place] [address] ADULT; ADULT ADULT PER 15 DAY CARE DAY CARE MINUTES DAY CARE S5100 THE THE SERVICES [address] [place] [address] ADULT; ADULT ADULT PER 15 DAY CARE DAY CARE MINUTES DAY CARE S5100 THE THE SERVICES [address] [place] [address] ADULT; ADULT ADULT PER 15 DAY CARE DAY CARE MINUTES DAY CARE S5100 [address] ADULT; ADULT ADULT PER 15 DAY CARE DAY CARE MINUTES DAY CARE S5100 THE THE SERVICES [address] [place] [address] ADULT; ADULT ADULT PER 15 DAY CARE DAY CARE MINUTES DAY CARE S5100 [address] ADULT; ADULT ADULT PER 15 DAY CARE DAY CARE MINUTES DAY CARE S5100 [address] ADULT; ADULT ADULT PER 15 DAY CARE DAY CARE MINUTES DAY CARE S5[address] ADULT; ADULT ADULT PER 15 DAY CARE DAY CARE MINUTES DAY CARE S5100 [address] ADULT; ADULT ADULT PER 15 DAY CARE DAY CARE MINUTES DAY CARE S[address] ADULT; ADULT ADULT PER 15 DAY CARE DAY CARE MINUTES RADEX [id number] RADIOLOGY ADELIA SPINE 4 ARSENIO THORACIC ASSOCIATE 3 VIEWS S OF NOTH ECG [address] [facility] NIV ROUTINE 4 CANDACE ECG W/LEAST PHYSICIAN 12 LDS S EKG I&[place] [address] RADIOLOGY VISHAL HEAD/BRAI 4 HARISH N W/O ASSOCIATE CONTRAST S OF NOTH MATERIAL RADEX 10014 RADIOLOGY VISHAL SPINE 4 HARISH LUMBOSACR ASSOCIATE AL 2/[address] [place] [address] RADIOLOGY VISHAL CERVICAL 4 HARISH SPINE W/O ASSOCIATE CONTRAST S OF NOTH MATERIAL DAY CARE S[address] ADULT; ADULT ADULT PER 15 DAY CARE DAY CARE MINUTES DAY CARE S[address] ADULT; ADULT ADULT PER 15 DAY CARE DAY CARE MINUTES DAY CARE S5[address] ADULT; ADULT ADULT PER 15 DAY CARE DAY CARE MINUTES DAY CARE S5[address] ADULT; ADULT ADULT PER 15 DAY CARE DAY CARE MINUTES DAY CARE S[address] ADULT; ADULT ADULT PER 15 DAY CARE DAY CARE MINUTES DAY CARE S[address] ADULT; ADULT ADULT PER 15 DAY CARE DAY CARE MINUTES DAY CARE S[address] ADULT; ADULT ADULT PER 15 DAY CARE DAY CARE MINUTES DAY CARE S[address] ADULT; ADULT ADULT PER 15 DAY CARE DAY CARE MINUTES DAY CARE S[address] ADULT; ADULT ADULT PER 15 DAY CARE DAY CARE MINUTES DAY CARE S5100 THE THE SERVICES [address] [place] [address] ADULT; ADULT ADULT PER 15 DAY CARE DAY CARE MINUTES DAY CARE S5100 THE THE SERVICES [address] [place] [address] ADULT; ADULT ADULT PER 15 DAY CARE DAY CARE MINUTES DAY CARE S5100 THE THE SERVICES [address] [place] [address] ADULT; ADULT ADULT PER 15 DAY CARE DAY CARE MINUTES DAY CARE S5100 THE THE SERVICES [address] [place] [address] ADULT; ADULT ADULT PER 15 DAY CARE DAY CARE MINUTES DAY CARE S5100 THE THE SERVICES [address] [place] [address] ADULT; ADULT ADULT PER 15 DAY CARE DAY CARE MINUTES DAY CARE S5100 THE THE SERVICES [address] [place] [address] ADULT; ADULT ADULT PER 15 DAY CARE DAY CARE MINUTES DAY CARE S5100 THE THE SERVICES [address] [place] [address] ADULT; ADULT ADULT PER 15 DAY CARE DAY CARE MINUTES DAY CARE S[address] ADULT; ADULT ADULT PER 15 DAY CARE DAY CARE MINUTES DAY CARE S[address] ADULT; ADULT ADULT PER 15 DAY CARE DAY CARE MINUTES DAY CARE S[address] ADULT; ADULT ADULT PER 15 DAY CARE DAY CARE MINUTES DAY CARE S[address] ADULT; ADULT ADULT PER 15 DAY CARE DAY CARE MINUTES DAY CARE S[address] ADULT; ADULT ADULT PER 15 DAY CARE DAY CARE MINUTES DAY CARE S[address] ADULT; ADULT ADULT PER 15 DAY CARE DAY CARE MINUTES DAY CARE S[address] ADULT; ADULT ADULT PER 15 DAY CARE DAY CARE MINUTES DAY CARE S[address] ADULT; ADULT ADULT PER 15 DAY CARE DAY CARE MINUTES DAY CARE S[address] ADULT; ADULT ADULT PER 15 DAY CARE DAY CARE MINUTES DAY CARE S[address] ADULT; ADULT ADULT PER 15 DAY CARE DAY CARE MINUTES DAY CARE S[address] ADULT; ADULT ADULT PER 15 DAY CARE DAY CARE MINUTES DAY CARE S[address] ADULT; ADULT ADULT PER 15 DAY CARE DAY CARE MINUTES DAY CARE S[address] ADULT; ADULT ADULT PER 15 DAY CARE DAY CARE MINUTES DAY CARE S[address] ADULT; ADULT ADULT PER 15 DAY CARE DAY CARE MINUTES DAY CARE S[address] ADULT; ADULT ADULT PER 15 DAY CARE DAY CARE MINUTES DAY CARE S[address] ADULT; ADULT ADULT PER 15 DAY CARE DAY CARE MINUTES DAY CARE S[address] ADULT; ADULT ADULT PER 15 DAY CARE DAY CARE MINUTES DAY CARE S[address] ADULT; ADULT ADULT PER 15 DAY CARE DAY CARE MINUTES DAY CARE S[address] ADULT; ADULT ADULT PER 15 DAY CARE DAY CARE MINUTES HEMOGLOBI 10911 [facility] N 4 [facility] GLYCOSYLA HOLDINGS HOLDINGS JERI A1C GENERAL 01061 [facility] 4 [facility] PANEL HOLDINGS HOLDINGS LIPID 99304 [facility] PANEL 4 [facility] HOLDINGS HOLDINGS DAY CARE S[address] ADULT; ADULT ADULT PER 15 DAY CARE DAY CARE MINUTES DAY CARE S[address] ADULT; ADULT ADULT PER 15 DAY CARE DAY CARE MINUTES DAY CARE S[address] ADULT; ADULT ADULT PER 15 DAY CARE DAY CARE MINUTES NONEMERGE A0100 [facility] SHANNAN SAUCEDO NCY 4 INC TRANSPORT TRANSPORT REGION 9 ATION CO ATION; L TAXI DAY CARE S5100 [address] ADULT; ADULT ADULT PER 15 DAY CARE DAY CARE MINUTES DAY CARE S5[address] ADULT; ADULT ADULT PER 15 DAY CARE DAY CARE MINUTES DAY CARE S[address] ADULT; ADULT ADULT PER 15 DAY CARE DAY CARE MINUTES DAY CARE S[address] ADULT; ADULT ADULT PER 15 DAY CARE DAY CARE MINUTES DAY CARE S5[address] ADULT; ADULT ADULT PER 15 DAY CARE DAY CARE MINUTES NONEMERGE A0100 [facility] CAC [facility] NCY 4 INC TRANSPORT TRANSPORT REGION 9 ATION CO ATION; L TAXI REPAIR 26029 [facility] INTERMEDI 4 PLASTIC ATE SURGERY F/E/E/N/L GROUP , &/MUC 2.5 CM/< EXC B9 24765 [facility] LES MRGN 4 PLASTIC XCP SK TG SURGERY GROUP , F/E/E/N/L /M 1.1-2.0CM DAY CARE S[address] ADULT; ADULT ADULT PER 15 DAY CARE DAY CARE MINUTES DAY CARE S[address] ADULT; ADULT ADULT PER 15 DAY CARE DAY CARE MINUTES DAY CARE S[address] ADULT; ADULT ADULT PER 15 DAY CARE DAY CARE MINUTES DAY CARE S[address] ADULT; ADULT ADULT PER 15 DAY CARE DAY CARE MINUTES DAY CARE S5[address] ADULT; ADULT ADULT PER 15 DAY CARE DAY CARE MINUTES SIMPLE 98799 EMERG[facility] REPAIR 4 CARE LOREN SCALP/NEC PHYS K/AX/TEJINDER NORTHERN T/TRUNK 2.5CM/< DAY CARE S[address] ADULT; ADULT ADULT PER 15 DAY CARE DAY CARE MINUTES DAY CARE S[address] ADULT; ADULT ADULT PER 15 DAY CARE DAY CARE MINUTES DAY CARE S[address] ADULT; ADULT ADULT PER 15 DAY CARE DAY CARE MINUTES DAY CARE S[address] ADULT; ADULT ADULT PER 15 DAY CARE DAY CARE MINUTES DAY CARE S[address] ADULT; ADULT ADULT PER 15 DAY CARE DAY CARE MINUTES DAY CARE S[address] ADULT; ADULT ADULT PER 15 DAY CARE DAY CARE MINUTES FOR DIAB A5512 [place] ONLY MX 4 MEDICAL MEDICAL DNSITY SUPPLY SUPPLY [employer] FORMD PRFAB EA DIAB ONLY A5500 [place] FIT CSTM 4 MEDICAL MEDICAL PREP&SPL SUPPLY SUPPLY SHOE [employer] DNSITY INSRT DAY CARE S[address] ADULT; ADULT ADULT PER 15 DAY CARE DAY CARE MINUTES DAY CARE S[address] ADULT; ADULT ADULT PER 15 DAY CARE DAY CARE MINUTES DAY CARE S[address] ADULT; ADULT ADULT PER 15 DAY CARE DAY CARE MINUTES DAY CARE S[address] ADULT; ADULT ADULT PER 15 DAY CARE DAY CARE MINUTES DAY CARE S[address] ADULT; ADULT ADULT PER 15 DAY CARE DAY CARE MINUTES GROUND A0425 VICTORIA VICTORIA MILEAGE 4 CO CO PER AMBULANCE AMBULANCE STATUTE TAXIN TAXIN MILE THER [address] PROPH/DX 4 CANDACEIVÁN MARIA NJX IV FT FT PUSH CRUZ ARROYO SINGLE/1S T SBST/DRUG ECG [address] ROUTINE 4 CANDACE CANDACE ECG FT FT W/LEAST CRUZ ARROYO 12 LDS TRCG ONLY W/O I&R AMB A0427 VICTORIA VICTORIA SERVICE 4 CO CO ALS AMBULANCE AMBULANCE EMERGENCY TAXIN TAXIN TRANSPORT LEVEL [address] N VENOUS 4 CANDACE MARIA BLOOD FT FT VENIPUNCT CRU[facility] URE GLUC BLD [address] GLUC MNTR 4 CANDACE MAIRA DEV FT FT CLEARED CRUZ [facility] FDA SPEC HOME USE BLOOD [address] COUNT 4 CANDACE ROBERSONBETH COMPLETE FT FT AUTO&AUTO CRUZ AR[facility] DIFRNTL WBC ECG [address] ST TIKA ROUTINE 4 CANDACE GAR ECG W/LEAST PHYSICIAN 12 LDS S EKG I&R ONLY BASIC [address] METABOLIC 4 CANDACE MARIA PANEL FT FT CALCIUM CRUZ ARROYO TOTAL DAY CARE S[address] ADULT; ADULT ADULT PER 15 DAY CARE DAY CARE MINUTES DAY CARE S[address] ADULT; ADULT ADULT PER 15 DAY CARE DAY CARE MINUTES DAY CARE S[address] ADULT; ADULT ADULT PER 15 DAY CARE DAY CARE MINUTES DAY CARE S[address] ADULT; ADULT ADULT PER 15 DAY CARE DAY CARE MINUTES DAY CARE S[address] ADULT; ADULT ADULT PER 15 DAY CARE DAY CARE MINUTES DAY CARE S[address] ADULT; ADULT ADULT PER 15 DAY CARE DAY CARE MINUTES NONEMERGE A0100 [facility] NCY 4 INC TRANSPORT TRANSPORT REGION 9 ATION CO ATION; L TAXI DAY CARE S[address] ADULT; ADULT ADULT PER 15 DAY CARE DAY CARE MINUTES DAY CARE S[address] ADULT; ADULT ADULT PER 15 DAY CARE DAY CARE MINUTES DAY CARE S[address] ADULT; ADULT ADULT PER 15 DAY CARE DAY CARE MINUTES DAY CARE S[address] ADULT; ADULT ADULT PER 15 DAY CARE DAY CARE MINUTES DAY CARE S[address] ADULT; ADULT ADULT PER 15 DAY CARE DAY CARE MINUTES NONEMERGE A0100 [facility] [employer] NCY 4 INC TRANSPORT TRANSPORT REGION 9 ATION CO ATION; L TAXI RADEX 87872 [facility] SPINE 4 MEGHNA LUMBOSLOVE ASSOCIATE AL 2/3 S OF [facility] DAY CARE S[address] ADULT; ADULT ADULT PER 15 DAY CARE DAY CARE MINUTES DAY CARE S[address] ADULT; ADULT ADULT PER 15 DAY CARE DAY CARE MINUTES DAY CARE S[address] ADULT; ADULT ADULT PER 15 DAY CARE DAY CARE MINUTES DAY CARE S5100 THE THE SERVICES [address] [place] [address] ADULT; ADULT ADULT PER 15 DAY CARE DAY CARE MINUTES DAY CARE S5100 THE THE SERVICES [address] [place] [address] ADULT; ADULT ADULT PER 15 DAY CARE DAY CARE MINUTES DAY CARE S[address] ADULT; ADULT ADULT PER 15 DAY CARE DAY CARE MINUTES NONEMERGE A0100 [facility] NCY 4 INC TRANSPORT TRANSPORT REGION 9 ATION CO ATION; L TAXI DAY CARE S5100 THE THE SERVICES [address] [place] [address] ADULT; ADULT ADULT PER 15 DAY CARE DAY CARE MINUTES DAY CARE S5100 THE THE SERVICES [address] [place] [address] ADULT; ADULT ADULT PER 15 DAY CARE DAY CARE MINUTES DAY CARE S[address] ADULT; ADULT ADULT PER 15 DAY CARE DAY CARE MINUTES DAY CARE S[address] ADULT; ADULT ADULT PER 15 DAY CARE DAY CARE MINUTES DAY CARE S5100 THE THE SERVICES [address] [place] [address] ADULT; ADULT ADULT PER 15 DAY CARE DAY CARE MINUTES DAY CARE S[address] ADULT; ADULT ADULT PER 15 DAY CARE DAY CARE MINUTES DAY CARE S[address] ADULT; ADULT ADULT PER 15 DAY CARE DAY CARE MINUTES DAY CARE S[address] ADULT; ADULT ADULT PER 15 DAY CARE DAY CARE MINUTES DAY CARE S[address] ADULT; ADULT ADULT PER 15 DAY CARE DAY CARE MINUTES DAY CARE S5100 THE THE SERVICES [address] [place] [address] ADULT; ADULT ADULT PER 15 DAY CARE DAY CARE MINUTES DAY CARE S[address] ADULT; ADULT ADULT PER 15 DAY CARE DAY CARE MINUTES DAY CARE S[address] ADULT; ADULT ADULT PER 15 DAY CARE DAY CARE MINUTES DAY CARE S[address] ADULT; ADULT ADULT PER 15 DAY CARE DAY CARE MINUTES DAY CARE S5100 THE THE SERVICES [address] [place] [address] ADULT; ADULT ADULT PER 15 DAY CARE DAY CARE MINUTES DAY CARE S5100 THE THE SERVICES [address] [place] [address] ADULT; ADULT ADULT PER 15 DAY CARE DAY CARE MINUTES DAY CARE S5100 THE THE SERVICES [address] [place] [address] ADULT; ADULT ADULT PER 15 DAY CARE DAY CARE MINUTES DAY CARE S5100 THE THE SERVICES [address] [place] [address] ADULT; ADULT ADULT PER 15 DAY CARE DAY CARE MINUTES DAY CARE S5100 THE THE SERVICES [address] [place] [address] ADULT; ADULT ADULT PER 15 DAY CARE DAY CARE MINUTES DAY CARE S5100 THE THE SERVICES [address] [place] [address] ADULT; ADULT ADULT PER 15 DAY CARE DAY CARE MINUTES DAY CARE S5100 THE THE SERVICES [address] [place] [address] ADULT; ADULT ADULT PER 15 DAY CARE DAY CARE MINUTES DAY CARE S5100 THE THE SERVICES [address] [place] [address] ADULT; ADULT ADULT PER 15 DAY CARE DAY CARE MINUTES DAY CARE S5100 THE THE SERVICES [address] [place] [address] ADULT; ADULT ADULT PER 15 DAY CARE DAY CARE MINUTES DAY CARE S5100 THE THE SERVICES [address] [place] [address] ADULT; ADULT ADULT PER 15 DAY CARE DAY CARE MINUTES DAY CARE S[address] ADULT; ADULT ADULT PER 15 DAY CARE DAY CARE MINUTES DAY CARE S[address] ADULT; ADULT ADULT PER 15 DAY CARE DAY CARE MINUTES DAY CARE S[address] ADULT; ADULT ADULT PER 15 DAY CARE DAY CARE MINUTES DAY CARE S[address] ADULT; ADULT ADULT PER 15 DAY CARE DAY CARE MINUTES DAY CARE S5100 THE THE SERVICES [address] [place] [address] ADULT; ADULT ADULT PER 15 DAY CARE DAY CARE MINUTES DAY CARE S5100 THE THE SERVICES [address] [place] [address] ADULT; ADULT ADULT PER 15 DAY CARE DAY CARE MINUTES DAY CARE S5100 THE THE SERVICES [address] [place] [address] ADULT; ADULT ADULT PER 15 DAY CARE DAY CARE MINUTES DAY CARE S5100 THE THE SERVICES [address] [place] [address] ADULT; ADULT ADULT PER 15 DAY CARE DAY CARE MINUTES DAY CARE S5100 THE THE SERVICES [address] [place] [address] ADULT; ADULT ADULT PER 15 DAY CARE DAY CARE MINUTES DAY CARE S5100 THE THE SERVICES [address] [place] [address] ADULT; ADULT ADULT PER 15 DAY CARE DAY CARE MINUTES DAY CARE S5100 THE THE SERVICES [address] [place] [address] ADULT; ADULT ADULT PER 15 DAY CARE DAY CARE MINUTES DAY CARE S5100 THE THE SERVICES [address] [place] [address] ADULT; ADULT ADULT PER 15 DAY CARE DAY CARE MINUTES DAY CARE S5100 THE THE SERVICES [address] [place] [address] ADULT; ADULT ADULT PER 15 DAY CARE DAY CARE MINUTES DAY CARE S5100 THE THE SERVICES [address] [place] [address] ADULT; ADULT ADULT PER 15 DAY CARE DAY CARE MINUTES DAY CARE S5100 THE THE SERVICES [address] [place] [address] ADULT; ADULT ADULT PER 15 DAY CARE DAY CARE MINUTES DAY CARE S5100 THE THE SERVICES [address] [place] [address] ADULT; ADULT ADULT PER 15 DAY CARE DAY CARE MINUTES DAY CARE S5100 THE THE SERVICES [address] [place] [address] ADULT; ADULT ADULT PER 15 DAY CARE DAY CARE MINUTES DAY CARE S5100 THE THE SERVICES [address] [place] [address] ADULT; ADULT ADULT PER 15 DAY CARE DAY CARE MINUTES DAY CARE S5100 THE THE SERVICES [address] [place] [address] ADULT; ADULT ADULT PER 15 DAY CARE DAY CARE MINUTES DAY CARE S[address] ADULT; ADULT ADULT PER 15 DAY CARE DAY CARE MINUTES DAY CARE S[address] ADULT; ADULT ADULT PER 15 DAY CARE DAY CARE MINUTES DAY CARE S[address] ADULT; ADULT ADULT PER 15 DAY CARE DAY CARE MINUTES DAY CARE S5100 THE THE SERVICES [address] [place] [address] ADULT; ADULT ADULT PER 15 DAY CARE DAY CARE MINUTES DAY CARE S5100 THE THE SERVICES [address] [place] [address] ADULT; ADULT ADULT PER 15 DAY CARE DAY CARE MINUTES DAY CARE S5100 THE THE SERVICES [address] [place] [address] ADULT; ADULT ADULT PER 15 DAY CARE DAY CARE MINUTES DAY CARE S5100 THE THE SERVICES [address] [place] [address] ADULT; ADULT ADULT PER 15 DAY CARE DAY CARE MINUTES DAY CARE S[address] ADULT; ADULT ADULT PER 15 DAY CARE DAY CARE MINUTES DAY CARE S[address] ADULT; ADULT ADULT PER 15 DAY CARE DAY CARE MINUTES DAY CARE S[address] ADULT; ADULT ADULT PER 15 DAY CARE DAY CARE MINUTES DAY CARE S[address] ADULT; ADULT ADULT PER 15 DAY CARE DAY CARE MINUTES DAY CARE S[address] ADULT; ADULT ADULT PER 15 DAY CARE DAY CARE MINUTES DAY CARE S[address] ADULT; ADULT ADULT PER 15 DAY CARE DAY CARE MINUTES NONEMERGE A0100 [facility] NCY 4 INC TRANSPORT TRANSPORT REGION 9 ATION CO ATION; L TAXI MAMMOGRAP 66339 ST HY 4 CANDACE MARIA BILATERAL FT FT [facility] DIAGNOSTI G0204 RADIOLOGY SAMUEL C 4 GAR MAMMOGRAP ASSOCIATE HY INCL S OF [facility] CAD WHEN PERF; BILAT COMPUTER- 19223 RADIOLOGY SAMUEL AIDED 4 GAR DETECTION ASSOCIATE DX S OF [facility] MAMMOGRAP DAY CARE S[address] ADULT; ADULT ADULT PER 15 DAY CARE DAY CARE MINUTES DAY CARE S[address] ADULT; ADULT ADULT PER 15 DAY CARE DAY CARE MINUTES DAY CARE S[address] ADULT; ADULT ADULT PER 15 DAY CARE DAY CARE MINUTES DAY CARE S[address] ADULT; ADULT ADULT PER 15 DAY CARE DAY CARE MINUTES DAY CARE S[address] ADULT; ADULT ADULT PER 15 DAY CARE DAY CARE MINUTES DAY CARE S[address] ADULT; ADULT ADULT PER 15 DAY CARE DAY CARE MINUTES NONEMERGE A0100 [facility] NCY 4 INC TRANSPORT TRANSPORT REGION 9 ATION CO ATION; L TAXI NONEMERGE A0100 [facility] NCY 4 INC TRANSPORT TRANSPORT REGION 9 ATION CO ATION; L TAXI DAY CARE S[address] ADULT; ADULT ADULT PER 15 DAY CARE DAY CARE MINUTES DAY CARE S[address] ADULT; ADULT ADULT PER 15 DAY CARE DAY CARE MINUTES DAY CARE S[address] ADULT; ADULT ADULT PER 15 DAY CARE DAY CARE MINUTES DAY CARE S[address] ADULT; ADULT ADULT PER 15 DAY CARE DAY CARE MINUTES DAY CARE S[address] ADULT; ADULT ADULT PER 15 DAY CARE DAY CARE MINUTES DAY CARE S[address] ADULT; ADULT ADULT PER 15 DAY CARE DAY CARE MINUTES SKIN TEST 84372 [facility] 4 CANDACE CORONA TUBERCULO SIS PHYSICIAN INTRADERM S AL DAY CARE S[address] ADULT; ADULT ADULT PER 15 DAY CARE DAY CARE MINUTES DAY CARE S[address] ADULT; ADULT ADULT PER 15 DAY CARE DAY CARE MINUTES DAY CARE S[address] ADULT; ADULT ADULT PER 15 DAY CARE DAY CARE MINUTES DAY CARE S[address] ADULT; ADULT ADULT PER 15 DAY CARE DAY CARE MINUTES DETERMINA 93383 REHANA RODRIGUEZ TION 4 NOLVIA, REFRACTIV OD, PSC E STATE OPHTH 48844 REHANA RODRIGUEZ MEDICAL 4 NOLVIA, XM&EVAL OD, PSC COMPRE NEW PT 1/> VST DAY CARE S[address] ADULT; ADULT ADULT PER 15 DAY CARE DAY CARE MINUTES DAY CARE S[address] ADULT; ADULT ADULT PER 15 DAY CARE DAY CARE MINUTES DAY CARE S[address] ADULT; ADULT ADULT PER 15 DAY CARE DAY CARE MINUTES DAY CARE S[address] ADULT; ADULT ADULT PER 15 DAY CARE DAY CARE MINUTES DAY CARE S[address] ADULT; ADULT ADULT PER 15 DAY CARE DAY CARE MINUTES DAY CARE S5100 THE THE SERVICES [address] [place] [address] ADULT; ADULT ADULT PER 15 DAY CARE DAY CARE MINUTES DAY CARE S[address] ADULT; ADULT ADULT PER 15 DAY CARE DAY CARE MINUTES DAY CARE S[address] ADULT; ADULT ADULT PER 15 DAY CARE DAY CARE MINUTES DAY CARE S5100 THE THE SERVICES [address] [place] [address] ADULT; ADULT ADULT PER 15 DAY CARE DAY CARE MINUTES DAY CARE S[address] ADULT; ADULT ADULT PER 15 DAY CARE DAY CARE MINUTES DAY CARE S[address] ADULT; ADULT ADULT PER 15 DAY CARE DAY CARE MINUTES DAY CARE S[address] ADULT; ADULT ADULT PER 15 DAY CARE DAY CARE MINUTES DAY CARE S[address] ADULT; ADULT ADULT PER 15 DAY CARE DAY CARE MINUTES DAY CARE S[address] ADULT; ADULT ADULT PER 15 DAY CARE DAY CARE MINUTES DAY CARE S[address] ADULT; ADULT ADULT PER 15 DAY CARE DAY CARE MINUTES DAY CARE S[address] ADULT; ADULT ADULT PER 15 DAY CARE DAY CARE MINUTES DAY CARE S[address] ADULT; ADULT ADULT PER 15 DAY CARE DAY CARE MINUTES [address] HYDROXY 4 CANDACE MARIA INCLUDES MED CTR MED CTR FRACTIONS 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 ST 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 ST IF PERFORMED DAY CARE S[address] ADULT; ADULT ADULT PER 15 DAY CARE DAY CARE MINUTES DAY CARE S[address] ADULT; ADULT ADULT PER 15 DAY CARE DAY CARE MINUTES MYOCARDIA 66006 ST [facility] MOH L SPECT 4 CANDACE MULTIPLE STUDIES PHYSICIAN S ECG [address] [facility] ROUTINE 4 CANDACE GAR ECG W/LEAST PHYSICIAN 12 LDS S EKG I&R ONLY CV STRS 49732 [facility] MOH TST 4 CANDACE XERS&/OR RX CONT PHYSICIAN ECG W/O S I&R CV STRS 02670 [facility] MOH TST 4 CANDACE XERS&/OR RX CONT PHYSICIAN ECG I&R S ONLY ECG [address] [facility] ROUTINE 4 CANDACE GAR ECG W/LEAST PHYSICIAN 12 LDS S EKG I&R ONLY ECG [address] [facility] TIK[facility] ROUTINE 4 CANDACE GAR ECG W/LEAST PHYSICIAN 12 LDS S EKG I&R ONLY RADIOLOGI 81643 RADIOLOGY HAMZAH C EXAM 4 TUS CHEST 2 ASSOCIATE VIEWS S OF [facility] FRONTAL&L ATERAL AMB A0427 VICTORIA VICTORIA SERVICE 4 CO CO ALS AMBULANCE AMBULANCE EMERGENCY TAXIN TAXIN TRANSPORT LEVEL 1 GROUND A0425 VICTORIA VICTORIA MILEAGE 4 CO CO PER AMBULANCE AMBULANCE STATUTE TAXIN TAXIN MILE DAY CARE S[address] ADULT; ADULT ADULT PER 15 DAY CARE DAY CARE MINUTES ECHO [address] TTHRC R-T 4 CANDACE BANGZABETH 2D FT FT W/WOM-MOD CRUZ ARROYO E COMPL SPEC&COLR D MRI BRAIN [address] BRAIN 4 CANDACE CANDACE STEM W/O FT FT W/CONTRAS CRUZ Bhatti MATERIAL DAY CARE S[address] ADULT; ADULT ADULT PER 15 DAY CARE DAY CARE MINUTES DAY CARE S[address] ADULT; ADULT ADULT PER 15 DAY CARE DAY CARE MINUTES DAY CARE S[address] ADULT; ADULT ADULT PER 15 DAY CARE DAY CARE MINUTES DAY CARE S[address] ADULT; ADULT ADULT PER 15 DAY CARE DAY CARE MINUTES DAY CARE S[address] ADULT; ADULT ADULT PER 15 DAY CARE DAY CARE MINUTES DAY CARE S[address] ADULT; ADULT ADULT PER 15 DAY CARE DAY CARE MINUTES DAY CARE S[address] ADULT; ADULT ADULT PER 15 DAY CARE DAY CARE MINUTES DAY CARE S[address] ADULT; ADULT ADULT PER 15 DAY CARE DAY CARE MINUTES DAY CARE S[address] ADULT; ADULT ADULT PER 15 DAY CARE DAY CARE MINUTES DAY CARE S[address] ADULT; ADULT ADULT PER 15 DAY CARE DAY CARE MINUTES DAY CARE S5100 THE THE SERVICES [address] [place] [address] ADULT; ADULT ADULT PER 15 DAY CARE DAY CARE MINUTES DAY CARE S5100 [address] ADULT; ADULT ADULT PER 15 DAY CARE DAY CARE MINUTES DAY CARE S5100 [address] ADULT; ADULT ADULT PER 15 DAY CARE DAY CARE MINUTES DAY CARE S5[address] ADULT; ADULT ADULT PER 15 DAY CARE DAY CARE MINUTES DAY CARE S[address] ADULT; ADULT ADULT PER 15 DAY CARE DAY CARE MINUTES DAY CARE S5[address] ADULT; ADULT ADULT PER 15 DAY CARE DAY CARE MINUTES DAY CARE S[address] ADULT; ADULT ADULT PER 15 DAY CARE DAY CARE MINUTES RADEX [id number] [facility] ER MAT MINIMUM 2 ORTHOPAE VIEWS NONEMERGE A0100 [facility] 4 INC TRANSPORT TRANSPORT REGION 9 ATION CO ATION; L TAXI DAY CARE S[address] ADULT; ADULT ADULT PER 15 DAY CARE DAY CARE MINUTES DAY CARE S5100 [address] ADULT; ADULT ADULT PER 15 DAY CARE DAY CARE MINUTES DAY CARE S[address] ADULT; ADULT ADULT PER 15 DAY CARE DAY CARE MINUTES DAY CARE S[address] ADULT; ADULT ADULT PER 15 DAY CARE DAY CARE MINUTES DAY CARE S5100 THE THE SERVICES [address] [place] [address] ADULT; ADULT ADULT PER 15 DAY CARE DAY CARE MINUTES DAY CARE S5100 THE THE SERVICES [address] [place] [address] ADULT; ADULT ADULT PER 15 DAY CARE DAY CARE MINUTES DAY CARE S5100 THE THE SERVICES [address] [place] [address] ADULT; ADULT ADULT PER 15 DAY CARE DAY CARE MINUTES GROUND A0425 VICTORIA VICTORIA MILEAGE 3 CO CO PER AMBULANCE AMBULANCE STATUTE TAXIN TAXIN MILE AMBULANCE A0429 VICTORIA VICTORIA SERVICE 3 CO CO BLS AMBULANCE AMBULANCE EMERGENCY TAXIN TAXIN TRANSPORT RADEX 58406 RADIOLOGY ROEBKER SPINE 3 JAM LUMBOSACR ASSOCIATE AL 2/3 S OF [facility] DAY CARE S[address] ADULT; ADULT ADULT PER 15 DAY CARE DAY CARE MINUTES DAY CARE S[address] ADULT; ADULT ADULT PER 15 DAY CARE DAY CARE MINUTES DAY CARE S5100 THE THE SERVICES [address] [place] [address] ADULT; ADULT ADULT PER 15 DAY CARE DAY CARE MINUTES DAY CARE S5100 THE THE SERVICES [address] [place] [address] ADULT; ADULT ADULT PER 15 DAY CARE DAY CARE MINUTES DAY CARE S5100 [address] ADULT; ADULT ADULT PER 15 DAY CARE DAY CARE MINUTES DAY CARE S5100 [address] ADULT; ADULT ADULT PER 15 DAY CARE DAY CARE MINUTES DAY CARE S5100 THE THE SERVICES [address] [place] [address] ADULT; ADULT ADULT PER 15 DAY CARE DAY CARE MINUTES DAY CARE S5100 [address] ADULT; ADULT ADULT PER 15 DAY CARE DAY CARE MINUTES DAY CARE S5[address] ADULT; ADULT ADULT PER 15 DAY CARE DAY CARE MINUTES DAY CARE S5[address] ADULT; ADULT ADULT PER 15 DAY CARE DAY CARE MINUTES DAY CARE S5100 THE THE SERVICES [address] [place] [address] ADULT; ADULT ADULT PER 15 DAY CARE DAY CARE MINUTES DAY CARE S5100 [address] ADULT; ADULT ADULT PER 15 DAY CARE DAY CARE MINUTES DAY CARE S5[address] ADULT; ADULT ADULT PER 15 DAY CARE DAY CARE MINUTES DAY CARE S5[address] ADULT; ADULT ADULT PER 15 DAY CARE DAY CARE MINUTES DAY CARE S5[address] ADULT; ADULT ADULT PER 15 DAY CARE DAY CARE MINUTES DAY CARE S5[address] ADULT; ADULT ADULT PER 15 DAY CARE DAY CARE MINUTES RADEX 80967 ARBEN GARDINER FINGR 3 LTH ER MAT MINIMUM 2 ORTHOPAE VIEWS DAY CARE S5100 [address] ADULT; ADULT ADULT PER 15 DAY CARE DAY CARE MINUTES DAY CARE S5100 [address] ADULT; ADULT ADULT PER 15 DAY CARE DAY CARE MINUTES DAY CARE S[address] ADULT; ADULT ADULT PER 15 DAY CARE DAY CARE MINUTES DAY CARE S[address] ADULT; ADULT ADULT PER 15 DAY CARE DAY CARE MINUTES DAY CARE S5[address] ADULT; ADULT ADULT PER 15 [place] [address] [facility] 3 [facility] CRUZ ARROYO COLLECTIO 614[address] [facility] 3 [facility] FT VENIPUNCT CRUZ CRUZ URE DAY CARE S5[address] ADULT; ADULT ADULT PER 15 DAY CARE DAY CARE MINUTES DAY CARE S[address] ADULT; ADULT ADULT PER 15 DAY CARE DAY CARE MINUTES DAY CARE S5[address] ADULT; ADULT ADULT PER 15 DAY CARE DAY CARE MINUTES DAY CARE S5[address] ADULT; ADULT ADULT PER 15 DAY CARE DAY CARE MINUTES ANES 48272 INDEPENDE MASROOR ARTHRS/EN 3 NT ALA DSCPY ANESTHESI DSTL OLOGIST RADIUS ULNA/WRIS T/HAND PRQ SKEL 26298 ARBEN GARDINER FIXJ DSTL 3 LTH ER MAT PHLNGL ORTHOPAE FX FNGR/THMB EA DAY CARE S5[address] ADULT; ADULT ADULT PER 15 DAY CARE DAY CARE MINUTES DAY CARE S5[address] ADULT; ADULT ADULT PER 15 DAY CARE DAY CARE MINUTES HEMOGLOBI [address] N 3 CANDACE MARIA GLYCOSYLA JERI A1C PHYSICIAN PHYSICIAN S S INFLUENZA [address] ST AN VACC 3 CANDACE TILLMAN CHLOE IIV3 SPLIT PHYSICIAN VIRUS S PRSRV FREE ID NONEMERGE A0100 LKLP CAC [place] NCY 3 INC TRANSPORT TRANSPORT REGION 9 ATION CO ATION; L TAXI DAY CARE S5[address] ADULT; ADULT ADULT PER 15 DAY CARE DAY CARE MINUTES DAY CARE S5[address] ADULT; ADULT ADULT PER 15 DAY CARE DAY CARE MINUTES NONEMERGE A0100 LKLP CAC [place] NCY 3 INC TRANSPORT TRANSPORT REGION 9 ATION CO ATION; L TAXI RADEX 17236 ARBEN GARDINER FINGR 3 LTH ER MAT MINIMUM 2 ORTHOPAE VIEWS DAY CARE S5[address] ADULT; ADULT ADULT PER 15 DAY CARE DAY CARE MINUTES DAY CARE S5[address] ADULT; ADULT ADULT PER 15 DAY CARE DAY CARE MINUTES DAY CARE S5[address] ADULT; ADULT ADULT PER 15 DAY CARE DAY CARE MINUTES DAY CARE S[address] ADULT; ADULT ADULT PER 15 DAY CARE DAY CARE MINUTES DAY CARE S[address] ADULT; ADULT ADULT PER 15 DAY CARE DAY CARE MINUTES DAY CARE S[address] ADULT; ADULT ADULT PER 15 DAY CARE DAY CARE MINUTES DAY CARE S[address] ADULT; ADULT ADULT PER 15 DAY CARE DAY CARE MINUTES DAY CARE S5100 THE THE SERVICES 3 [facility] ADULT; ADULT ADULT PER 15 DAY CARE DAY CARE MINUTES GROUND A0425 VICTORIA VICTORIA MILEAGE 3 CO CO PER AMBULANCE AMBULANCE STATUTE TAXIN TAXIN MILE ECG [address] ST ANNANNOLD ROUTINE 3 CANDACE PEG ECG W/LEAST PHYSICIAN 12 LDS S EKG I&[place] [address] RADIOLOGY VISHAL HEAD/BRAI 3 HARISH N W/O ASSOCIATE CONTRAST S OF NOTH MATERIAL RADIOLOGI 68745 RADIOLOGY VISHAL C EXAM 3 HARISH CHEST 2 ASSOCIATE VIEWS S OF NOTH FRONTAL&L ATERAL AMB A0427 VICTORIA VICTORIA SERVICE 3 CO CO ALS AMBULANCE AMBULANCE EMERGENCY TAXIN TAXIN TRANSPORT LEVEL 1 DAY CARE S5100 THE THE SERVICES [address] [place] [address] ADULT; ADULT ADULT PER 15 DAY CARE DAY CARE MINUTES DAY CARE S5100 THE THE SERVICES [address] [place] [address] ADULT; ADULT ADULT PER 15 DAY CARE DAY CARE MINUTES DAY CARE S5100 THE THE SERVICES [address] [place] [address] ADULT; ADULT ADULT PER 15 DAY CARE DAY CARE MINUTES DAY CARE S5100 THE THE SERVICES [address] [place] [address] ADULT; ADULT ADULT PER 15 DAY CARE DAY CARE MINUTES DAY CARE S[address] ADULT; ADULT ADULT PER 15 DAY CARE DAY CARE MINUTES DAY CARE S5[address] ADULT; ADULT ADULT PER 15 DAY CARE DAY CARE MINUTES DAY CARE S5[address] ADULT; ADULT ADULT PER 15 DAY CARE DAY CARE MINUTES GROUND A0425 VICTORIA VICTORIA MILEAGE 3 CO CO PER AMBULANCE AMBULANCE STATUTE TAXIN TAXIN MILE AMB A0427 VICTORIA VICTORIA SERVICE 3 CO CO ALS AMBULANCE AMBULANCE EMERGENCY [place] [address] RADIOLOGY HAMZAH HEAD/BRAI 3 TUS N W/O ASSOCIATE CONTRAST S OF NOTH MATERIAL ECG [address] ST GLYNN NIV ROUTINE 3 CANDACE ECG W/LEAST PHYSICIAN 12 LDS S EKG I&R ONLY DAY CARE S5100 [address] ADULT; ADULT ADULT PER 15 DAY CARE DAY CARE MINUTES DAY CARE S5100 [address] ADULT; ADULT ADULT PER 15 DAY CARE DAY CARE MINUTES DAY CARE S5[address] ADULT; ADULT ADULT PER 15 DAY CARE DAY CARE MINUTES DAY CARE S5100 THE THE SERVICES [address] [place] [address] ADULT; ADULT ADULT PER 15 DAY CARE DAY CARE MINUTES DAY CARE S5100 THE THE SERVICES [address] [place] [address] ADULT; ADULT ADULT PER 15 DAY CARE DAY CARE MINUTES CLTX DSTL 52513 COMMONWEA GRUNKEMEY PHLNGL 3 LTH ER MAT FX ORTHOPAE FNGR/THMB W/O MANJ EA NONEMERGE A0100 LKLP CAC [place] NCY 3 INC TRANSPORT TRANSPORT REGION 9 ATION CO ATION; L TAXI DAY CARE S5[address] ADULT; ADULT ADULT PER 15 DAY CARE DAY CARE MINUTES DAY CARE S5[address] ADULT; ADULT ADULT PER 15 DAY CARE DAY CARE MINUTES DAY CARE S5[address] ADULT; ADULT ADULT PER 15 DAY CARE DAY CARE MINUTES DAY CARE S5[address] ADULT; ADULT ADULT PER 15 DAY CARE DAY CARE MINUTES DAY CARE S5[address] ADULT; ADULT ADULT PER 15 DAY CARE DAY CARE MINUTES DAY CARE S5[address] ADULT; ADULT ADULT PER 15 DAY CARE DAY CARE MINUTES GROUND A0425 AUSTRALIAN AUSTRALIAN MILEAGE 3 AMBULETTE AMBULETTE PER AND AND STATUTE AMBUL AMBUL MILE AMBULANCE A0429 AUSTRALIAN AUSTRALIAN SERVICE 3 AMBULETTE AMBULETTE BLS AND AND EMERGENCY AMBUL AMBUL TRANSPORT RADEX 56597 RADIOLOGY [place] HAND 3 LYUBOV MINIMUM 3 ASSOCIATE VIEWS S OF [facility] DAY CARE S5[address] ADULT; ADULT ADULT PER 15 DAY CARE DAY CARE MINUTES DAY CARE S5100 THE THE SERVICES 3 [facility] ADULT; ADULT ADULT PER 15 DAY CARE DAY CARE MINUTES DAY CARE S5100 THE THE SERVICES 3 [facility] ADULT; ADULT ADULT PER 15 DAY CARE DAY CARE MINUTES DAY CARE S5100 THE THE SERVICES 3 [facility] ADULT; ADULT ADULT PER 15 DAY CARE DAY CARE MINUTES DAY CARE S5100 THE THE SERVICES 3 [facility] ADULT; ADULT ADULT PER 15 DAY CARE DAY CARE MINUTES DAY CARE S5100 THE THE SERVICES 3 [facility] ADULT; ADULT ADULT PER 15 DAY CARE DAY CARE MINUTES DAY CARE S5100 THE THE SERVICES 3 [facility] ADULT; ADULT ADULT PER 15 DAY CARE DAY CARE MINUTES DAY CARE S5100 THE THE SERVICES 3 [facility] ADULT; ADULT ADULT PER 15 DAY CARE DAY CARE MINUTES DAY CARE S5100 THE THE SERVICES [address] [place] [address] ADULT; ADULT ADULT PER 15 DAY CARE DAY CARE MINUTES DAY CARE S5100 THE THE SERVICES [address] [place] [address] ADULT; ADULT ADULT PER 15 DAY CARE DAY CARE MINUTES DAY CARE S5100 THE THE SERVICES [address] [place] [address] ADULT; ADULT ADULT PER 15 DAY CARE DAY CARE MINUTES DAY CARE S5100 THE THE SERVICES [address] [place] [address] ADULT; ADULT ADULT PER 15 DAY CARE DAY CARE MINUTES DAY CARE S5[address] ADULT; ADULT ADULT PER 15 DAY CARE DAY CARE MINUTES DAY CARE S5[address] ADULT; ADULT ADULT PER 15 DAY CARE DAY CARE MINUTES DAY CARE S5[address] ADULT; ADULT ADULT PER 15 DAY CARE DAY CARE MINUTES DAY CARE S5100 THE THE SERVICES [address] [place] [address] ADULT; ADULT ADULT PER 15 DAY CARE DAY CARE MINUTES DAY CARE S5100 THE THE SERVICES 3 [facility] ADULT; ADULT ADULT PER 15 DAY CARE DAY CARE MINUTES DAY CARE S5100 THE THE SERVICES 3 [facility] ADULT; ADULT ADULT PER 15 DAY CARE DAY CARE MINUTES DAY CARE S5100 THE THE SERVICES 3 [facility] ADULT; ADULT ADULT PER 15 DAY CARE DAY CARE MINUTES DAY CARE S5[address] ADULT; ADULT ADULT PER 15 DAY CARE DAY CARE MINUTES GROUND A0425 VICTORIA VICTORIA MILEAGE 3 CO CO PER AMBULANCE AMBULANCE STATUTE TAXIN TAXIN MILE ECG 12617 LEONEL COBOS ROUTINE 3 EMERGENCY ECG SERVICES W/LEAST 12 LDS I&R ONLY AMB A0427 VICTORIA VICTORIA SERVICE 3 CO CO ALS AMBULANCE AMBULANCE EMERGENCY TAXIN TAXIN TRANSPORT LEVEL 1 DAY CARE S[address] ADULT; ADULT ADULT PER 15 DAY CARE DAY CARE MINUTES DAY CARE S5100 THE THE SERVICES [address] [place] [address] ADULT; ADULT ADULT PER 15 DAY CARE DAY CARE MINUTES DAY CARE S[address] ADULT; ADULT ADULT PER 15 DAY CARE DAY CARE MINUTES DAY CARE S[address] ADULT; ADULT ADULT PER 15 DAY CARE DAY CARE MINUTES DAY CARE S[address] ADULT; ADULT ADULT PER 15 DAY CARE DAY CARE MINUTES DAY CARE S[address] ADULT; ADULT ADULT PER 15 DAY CARE DAY CARE MINUTES DAY CARE S5[address] ADULT; ADULT ADULT PER 15 DAY CARE DAY CARE MINUTES GROUND A0425 VICTORIA VICTORIA MILEAGE 3 CO CO PER AMBULANCE AMBULANCE STATUTE TAXIN TAXIN MILE AMBULANCE A0429 VICTORIA VICTORIA SERVICE 3 CO CO BLS AMBULANCE AMBULANCE EMERGENCY TAXIN TAXIN TRANSPORT DAY CARE S[address] ADULT; ADULT ADULT PER 15 DAY CARE DAY CARE MINUTES DAY CARE S5100 THE THE SERVICES [address] [place] [address] ADULT; ADULT ADULT PER 15 DAY CARE DAY CARE MINUTES DAY CARE S5[address] ADULT; ADULT ADULT PER 15 DAY CARE DAY CARE MINUTES DAY CARE S5[address] ADULT; ADULT ADULT PER 15 DAY CARE DAY CARE MINUTES DAY CARE S[address] ADULT; ADULT ADULT PER 15 DAY CARE DAY CARE MINUTES DAY CARE S5100 THE THE SERVICES 3 [facility] ADULT; ADULT ADULT PER 15 DAY CARE DAY CARE MINUTES DAY CARE S5100 THE THE SERVICES 3 [facility] ADULT; ADULT ADULT PER 15 DAY CARE DAY CARE MINUTES DAY CARE S5100 THE THE SERVICES 3 [facility] ADULT; ADULT ADULT PER 15 DAY CARE DAY CARE MINUTES DAY CARE S5100 THE THE SERVICES 3 [facility] ADULT; ADULT ADULT PER 15 DAY CARE DAY CARE MINUTES DAY CARE S5100 THE THE SERVICES 3 [facility] ADULT; ADULT ADULT PER 15 DAY CARE DAY CARE MINUTES GROUND A0425 VICTORIA VICTORIA MILEAGE 3 CO CO PER AMBULANCE AMBULANCE STATUTE TAXIN TAXIN MILE AMB A0427 VICTORIA VICTORIA SERVICE 3 CO CO ALS AMBULANCE AMBULANCE EMERGENCY TAXIN TAXIN TRANSPORT LEVEL 1 ECG 71213 [facility] ROUTINE 3 CANDACE PEG ECG W/LEAST PHYSICIAN 12 LDS S EKG I&R ONLY DAY CARE S5100 THE THE SERVICES [address] [place] [address] ADULT; ADULT ADULT PER 15 DAY CARE DAY CARE MINUTES DAY CARE S5[address] ADULT; ADULT ADULT PER 15 DAY CARE DAY CARE MINUTES DAY CARE S5[address] ADULT; ADULT ADULT PER 15 DAY CARE DAY CARE MINUTES DAY CARE S[address] ADULT; ADULT ADULT PER 15 DAY CARE DAY CARE MINUTES DAY CARE S[address] ADULT; ADULT ADULT PER 15 DAY CARE DAY CARE MINUTES DAY CARE S5100 THE THE SERVICES [address] [place] [address] ADULT; ADULT ADULT PER 15 DAY CARE DAY CARE MINUTES DAY CARE S5100 THE THE SERVICES [address] [place] [address] ADULT; ADULT ADULT PER 15 DAY CARE DAY CARE MINUTES DAY CARE S5[address] ADULT; ADULT ADULT PER 15 DAY CARE DAY CARE MINUTES DAY CARE S5100 THE THE SERVICES [address] [place] [address] ADULT; ADULT ADULT PER 15 DAY CARE DAY CARE MINUTES SBSQ 57136 [facility] 3 CANDACE CARE/DAY 25 PHYSICIAN MINUTES S CRITICAL 89587 EMERGENCY [facility] 3 CARE ILL/INJUR PHYS ED NORTHERN PATIENT INIT 30-74 MIN ECG 39420 [facility] ROUTINE 3 CANDACE GAR ECG W/LEAST PHYSICIAN 12 LDS S EKG I&[place] [address] RADIOLOGY REN HEAD/BRAI 3 III LIANA N W/O ASSOCIATE CONTRAST S OF NOT MATERIAL INITIAL 55002 [facility] 3 CANDACE CARE/DAY 70 PHYSICIAN MINUTES S DAY CARE S5100 THE THE SERVICES [address] [place] [address] ADULT; ADULT ADULT PER 15 DAY CARE DAY CARE MINUTES DAY CARE S[address] ADULT; ADULT ADULT PER 15 DAY CARE DAY CARE MINUTES DAY CARE S[address] ADULT; ADULT ADULT PER 15 DAY CARE DAY CARE MINUTES DAY CARE S5100 THE THE SERVICES [address] [place] [address] ADULT; ADULT ADULT PER 15 DAY CARE DAY CARE MINUTES DAY CARE S5100 THE THE SERVICES [address] [place] [address] ADULT; ADULT ADULT PER 15 DAY CARE DAY CARE MINUTES DAY CARE S5100 THE THE SERVICES [address] [place] [address] ADULT; ADULT ADULT PER 15 DAY CARE DAY CARE MINUTES DAY CARE S[address] ADULT; ADULT ADULT PER 15 DAY CARE DAY CARE MINUTES DAY CARE S5100 THE THE SERVICES [address] [place] [address] ADULT; ADULT ADULT PER 15 DAY CARE DAY CARE MINUTES DAY CARE S5100 THE THE SERVICES [address] [place] [address] ADULT; ADULT ADULT PER 15 DAY CARE DAY CARE MINUTES DAY CARE S5100 THE THE SERVICES [address] [place] [address] ADULT; ADULT ADULT PER 15 DAY CARE DAY CARE MINUTES DAY CARE S5100 THE THE SERVICES [address] [place] [address] ADULT; ADULT ADULT PER 15 DAY CARE DAY CARE MINUTES DAY CARE S[address] ADULT; ADULT ADULT PER 15 DAY CARE DAY CARE MINUTES DAY CARE S5[address] ADULT; ADULT ADULT PER 15 DAY CARE DAY CARE MINUTES NONEMERGE A0100 [facility] [place] [facility] 3 INC TRANSPORT TRANSPORT REGION 9 ATION CO ATION; L TAXI DAY CARE S5[address] ADULT; ADULT ADULT PER 15 DAY CARE DAY CARE MINUTES DAY CARE S5[address] ADULT; ADULT ADULT PER 15 DAY CARE DAY CARE MINUTES DAY CARE S5100 THE THE SERVICES [address] [place] [address] ADULT; ADULT ADULT PER 15 DAY CARE DAY CARE MINUTES DAY CARE S5100 THE THE SERVICES [address] [place] [address] ADULT; ADULT ADULT PER 15 DAY CARE DAY CARE MINUTES DAY CARE S5100 THE THE SERVICES [address] [place] [address] ADULT; ADULT ADULT PER 15 DAY CARE DAY CARE MINUTES DAY CARE S5[address] ADULT; ADULT ADULT PER 15 DAY CARE DAY CARE MINUTES DAY CARE S[address] ADULT; ADULT ADULT PER 15 DAY CARE DAY CARE MINUTES DAY CARE S5100 THE THE SERVICES [address] [place] [address] ADULT; ADULT ADULT PER 15 DAY CARE DAY CARE MINUTES DAY CARE S5100 THE THE SERVICES [address] [place] [address] ADULT; ADULT ADULT PER 15 DAY CARE DAY CARE MINUTES DAY CARE S5[address] ADULT; ADULT ADULT PER 15 DAY CARE DAY CARE MINUTES DAY CARE S5[address] ADULT; ADULT ADULT PER 15 DAY CARE DAY CARE MINUTES DAY CARE S[address] ADULT; ADULT ADULT PER 15 DAY CARE DAY CARE MINUTES DAY CARE S[address] ADULT; ADULT ADULT PER 15 DAY CARE DAY CARE MINUTES DAY CARE S[address] ADULT; ADULT ADULT PER 15 DAY CARE DAY CARE MINUTES DAY CARE S[address] ADULT; ADULT ADULT PER 15 DAY CARE DAY CARE MINUTES DAY CARE S5100 THE THE SERVICES [address] [place] [address] ADULT; ADULT ADULT PER 15 DAY CARE DAY CARE MINUTES DAY CARE S[address] ADULT; ADULT ADULT PER 15 DAY CARE DAY CARE MINUTES DAY CARE S[address] ADULT; ADULT ADULT PER 15 DAY CARE DAY CARE MINUTES DAY CARE S[address] ADULT; ADULT ADULT PER 15 DAY CARE DAY CARE MINUTES DAY CARE S[address] ADULT; ADULT ADULT PER 15 [place] [address] [facility] CERVICAL [facility] SPINE W/[place] [address] [facility] THORACIC 3 [facility] W/O INC INC CONTRAST MATERIAL 3D 21946 [facility] RENDERING 3 [facility] INC INC W/INTERP& [place] [address] [facility] HEAD/BRAI 3 [facility] N W/O INC INC CONTRAST MATERIAL CT LUMBAR 58849 [facility] SPINE 3 [facility] W/O INC INC CONTRAST MATERIAL GROUND A0425 VICTORIA VICTORIA MILEAGE 3 CO CO PER AMBULANCE AMBULANCE STATUTE TAXIN TAXIN MILE AMBULANCE A0429 VICTORIA VICTORIA SERVICE 3 CO CO BLS AMBULANCE AMBULANCE EMERGENCY TAXIN TAXIN TRANSPORT DAY CARE S[address] ADULT; ADULT ADULT PER 15 DAY CARE DAY CARE MINUTES DAY CARE S5[address] ADULT; ADULT ADULT PER 15 DAY CARE DAY CARE MINUTES DAY CARE S[address] ADULT; ADULT ADULT PER 15 DAY CARE DAY CARE MINUTES DAY CARE S[address] ADULT; ADULT ADULT PER 15 DAY CARE DAY CARE MINUTES DAY CARE S[address] ADULT; ADULT ADULT PER 15 DAY CARE DAY CARE MINUTES GROUND A0425 VICTORIA VICTORIA MILEAGE 3 CO CO PER AMBULANCE AMBULANCE STATUTE TAXIN TAXIN MILE AMB A0427 VICTORIA VICTORIA SERVICE 3 CO CO ALS AMBULANCE AMBULANCE EMERGENCY TAXIN TAXIN TRANSPORT LEVEL 1 DAY CARE S[address] ADULT; ADULT ADULT PER 15 DAY CARE DAY CARE MINUTES DAY CARE S5[address] ADULT; ADULT ADULT PER 15 DAY CARE DAY CARE MINUTES COLLECTIO [address] N VENOUS 3 CANDACE MARIA BLOOD FT FT [place] [address] PROLACTIN 3 CANDACE CANDACE FT FT CRUZ [place] DAY CARE S[address] ADULT; ADULT ADULT PER 15 DAY CARE DAY CARE MINUTES DAY CARE S[address] ADULT; ADULT ADULT PER 15 DAY CARE DAY CARE MINUTES DAY CARE S[address] ADULT; ADULT ADULT PER 15 DAY CARE DAY CARE MINUTES DAY CARE S[address] ADULT; ADULT ADULT PER 15 DAY CARE DAY CARE MINUTES DAY CARE S[address] ADULT; ADULT ADULT PER 15 DAY CARE DAY CARE MINUTES DAY CARE S[address] ADULT; ADULT ADULT PER 15 DAY CARE DAY CARE MINUTES PREOP [address] PLACEMENT 3 CANDACE MARIA FT FT LOCALIZAT CRUZ [place] ION WIRE BREAST EXC [address] CYST/ABER 3 CANDACE MARIA RANT FT FT BREAST CRUZ ARRO[place] TISSUE OPEN 1/> LESION RADIOLOGI [address] EXAMINATI ASSOCIATE ON S OF [facility] SURGICAL SPECIMEN ANES [address] INTEG 3 CANDACE MARIA EXTREMITI FT FT ES ANT CRUZ [place] TRUNK & PERINEUM NOS EXC [address] ST [place] BREAST 3 CANDACE HEI LES PREOP PLMT RAD PHYSICIAN MARKER S OPEN [address] [place] [address] SURG 3 CANDACE MARIA PATHOLOGY FT FT CRUZ ARRO[place] GROSS&SAMANTHA ROSCOPIC EXAM MAMMOGRAP [address] HIC GID 3 CANDACE MARIA NEEDLE FT FT PLACEMENT CRUZ [place] T BREAST DAY CARE S5100 THE THE [facility] 3 [facility] ADULT; ADULT ADULT PER 15 DAY CARE DAY CARE MINUTES DAY CARE S5100 THE THE SERVICES [address] [place] [address] ADULT; ADULT ADULT PER 15 DAY CARE DAY CARE MINUTES DAY CARE S5[address] ADULT; ADULT ADULT PER 15 DAY CARE DAY CARE MINUTES ECG [address] ROUTINE 3 CANDACE CANDACE ECG FT FT W/LEAST CRUZ CRUZ 12 LDS TRCG ONLY W/O I&R NONEMERGE A0100 [facility] 3 COMMUNITY TRANSPORT TRANSPORT ACTION ATION CO ATION; L TAXI ECG [address] [facility] CANDACE PEG ECG W/LEAST PHYSICIAN 12 LDS S EKG I&R ONLY DAY CARE S5100 [address] ADULT; ADULT ADULT PER 15 DAY CARE DAY CARE MINUTES DAY CARE S[address] ADULT; ADULT ADULT PER 15 DAY CARE DAY CARE MINUTES DAY CARE S5100 THE THE SERVICES [address] [place] [address] ADULT; ADULT ADULT PER 15 DAY CARE DAY CARE MINUTES DAY CARE S[address] ADULT; ADULT ADULT PER 15 DAY CARE DAY CARE MINUTES DAY CARE S[address] ADULT; ADULT ADULT PER 15 DAY CARE DAY CARE MINUTES NONEMERGE A0100 [facility] NCY 3 COMMUNITY TRANSPORT TRANSPORT ACTION ATION CO ATION; L TAXI DAY CARE S[address] ADULT; ADULT ADULT PER 15 DAY CARE DAY CARE MINUTES DAY CARE S[address] ADULT; ADULT ADULT PER 15 DAY CARE DAY CARE MINUTES DAY CARE S[address] ADULT; ADULT ADULT PER 15 DAY CARE DAY CARE MINUTES DAY CARE S[address] ADULT; ADULT ADULT PER 15 DAY CARE DAY CARE MINUTES DAY CARE S[address] ADULT; ADULT ADULT PER 15 DAY CARE DAY CARE MINUTES DAY CARE S[address] ADULT; ADULT ADULT PER 15 DAY CARE DAY CARE MINUTES DAY CARE S[address] ADULT; ADULT ADULT PER 15 DAY CARE DAY CARE MINUTES DAY CARE S[address] ADULT; ADULT ADULT PER 15 DAY CARE DAY CARE MINUTES DAY CARE S[address] ADULT; ADULT ADULT PER 15 DAY CARE DAY CARE MINUTES DAY CARE S[address] ADULT; ADULT ADULT PER 15 DAY CARE DAY CARE MINUTES DAY CARE S[address] ADULT; ADULT ADULT PER 15 DAY CARE DAY CARE MINUTES DAY CARE S[address] ADULT; ADULT ADULT PER 15 DAY CARE DAY CARE MINUTES COMPUTER- [id number] RADIOLOGY [place] AIDED 3 JESSICA DETECTION ASSOCIATE DX S OF [facility] MAMMOGRAP HY MAMMOGRAP [id number] HY 3 CANDACE JACOBSTH BILATERAL FT FT [facility] DIAGNOSTI [id number] RADIOLOGY [place] C 3 JESSICA MAMMOGRAP ASSOCIATE HY INCL S OF [facility] CAD WHEN PERF; BILAT DAY CARE S[address] ADULT; ADULT ADULT PER 15 DAY CARE DAY CARE MINUTES DAY CARE S[address] ADULT; ADULT ADULT PER 15 DAY CARE DAY CARE MINUTES DAY CARE S[address] ADULT; ADULT ADULT PER 15 DAY CARE DAY CARE MINUTES DAY CARE S[address] ADULT; ADULT ADULT PER 15 DAY CARE DAY CARE MINUTES DAY CARE S5[address] ADULT; ADULT ADULT PER 15 DAY CARE DAY CARE MINUTES DAY CARE S[address] ADULT; ADULT ADULT PER 15 DAY CARE DAY CARE MINUTES DAY CARE S[address] ADULT; ADULT ADULT PER 15 DAY CARE DAY CARE MINUTES DAY CARE S[address] ADULT; ADULT ADULT PER 15 DAY CARE DAY CARE MINUTES DAY CARE S5100 THE THE SERVICES [facility] ADULT; ADULT ADULT PER 15 DAY CARE DAY CARE MINUTES DAY CARE S5100 THE THE SERVICES [facility] ADULT; ADULT ADULT PER 15 DAY CARE DAY CARE MINUTES DAY CARE S5100 THE THE [facility] ADULT; ADULT ADULT PER 15 DAY CARE DAY CARE MINUTES DAY CARE S5100 THE THE SERVICES [facility] ADULT; ADULT ADULT PER 15 DAY CARE DAY CARE MINUTES DAY CARE S5100 THE THE SERVICES [facility] ADULT; ADULT ADULT PER 15 DAY CARE DAY CARE MINUTES DAY CARE S5100 THE THE SERVICES [facility] ADULT; ADULT ADULT PER 15 DAY CARE DAY CARE MINUTES DAY CARE S5100 THE THE SERVICES [address] [place] [address] ADULT; ADULT ADULT PER 15 DAY CARE DAY CARE MINUTES DAY CARE S5100 THE THE SERVICES 3 [facility] ADULT; ADULT ADULT PER 15 DAY CARE DAY CARE MINUTES DAY CARE S5100 THE THE SERVICES [address] [place] [address] ADULT; ADULT ADULT PER 15 DAY CARE DAY CARE MINUTES DAY CARE S5100 THE THE SERVICES 3 [facility] ADULT; ADULT ADULT PER 15 DAY CARE DAY CARE MINUTES DAY CARE S5100 THE THE SERVICES [address] [place] [address] ADULT; ADULT ADULT PER 15 DAY CARE DAY CARE MINUTES DAY CARE S5100 THE [address] ADULT; ADULT ADULT PER 15 DAY CARE DAY CARE MINUTES DAY CARE S5100 THE THE SERVICES 3 [facility] ADULT; ADULT ADULT PER 15 DAY CARE DAY CARE MINUTES DAY CARE S5100 THE THE SERVICES 3 [facility] ADULT; ADULT ADULT PER 15 DAY CARE DAY CARE MINUTES DAY CARE S5100 THE THE SERVICES 3 [facility] ADULT; ADULT ADULT PER 15 DAY CARE DAY CARE MINUTES DAY CARE S5100 THE THE SERVICES [address] [place] [address] ADULT; ADULT ADULT PER 15 DAY CARE DAY CARE MINUTES DAY CARE S5100 THE THE SERVICES 3 [facility] ADULT; ADULT ADULT PER 15 DAY CARE DAY CARE MINUTES DAY CARE S5100 THE THE SERVICES [address] [place] [address] ADULT; ADULT ADULT PER 15 DAY CARE DAY CARE MINUTES DAY CARE S5100 THE THE SERVICES 3 [facility] ADULT; ADULT ADULT PER 15 DAY CARE DAY CARE MINUTES DAY CARE S5100 THE THE SERVICES [address] [place] [address] ADULT; ADULT ADULT PER 15 DAY CARE DAY CARE MINUTES DAY CARE S5[address] ADULT; ADULT ADULT PER 15 DAY CARE DAY CARE MINUTES DAY CARE S5[address] ADULT; ADULT ADULT PER 15 DAY CARE DAY CARE MINUTES DAY CARE S5100 THE THE SERVICES [address] [place] [address] ADULT; ADULT ADULT PER 15 DAY CARE DAY CARE MINUTES DAY CARE S5[address] ADULT; ADULT ADULT PER 15 DAY CARE DAY CARE MINUTES DAY CARE S5[address] ADULT; ADULT ADULT PER 15 DAY CARE DAY CARE MINUTES DAY CARE S5[address] ADULT; ADULT ADULT PER 15 DAY CARE DAY CARE MINUTES DAY CARE S5[address] ADULT; ADULT ADULT PER 15 DAY CARE DAY CARE MINUTES DAY CARE S5100 [address] ADULT; ADULT ADULT PER 15 DAY CARE DAY CARE MINUTES DAY CARE S5[address] ADULT; ADULT ADULT PER 15 DAY CARE DAY CARE MINUTES DAY CARE S5100 [address] ADULT; ADULT ADULT PER 15 DAY CARE DAY CARE MINUTES DAY CARE S5[address] ADULT; ADULT ADULT PER 15 DAY CARE DAY CARE MINUTES DAY CARE S5[address] ADULT; ADULT ADULT PER 15 DAY CARE DAY CARE MINUTES DAY CARE S5[address] ADULT; ADULT ADULT PER 15 DAY CARE DAY CARE MINUTES DAY CARE S5[address] ADULT; ADULT ADULT PER 15 DAY CARE DAY CARE MINUTES SKIN TEST 44486 [facility] 3 CANDACE TUBERCULO SIS PHYSICIAN INTRADERM S AL DAY CARE S5[address] ADULT; ADULT ADULT PER 15 DAY CARE DAY CARE MINUTES DAY CARE S5100 THE THE SERVICES 3 [facility] ADULT; ADULT ADULT PER 15 DAY CARE DAY CARE MINUTES DAY CARE S5100 THE THE SERVICES 3 [facility] ADULT; ADULT ADULT PER 15 DAY CARE DAY CARE MINUTES AMB A0427 VICTORIA VICTORIA SERVICE 3 CO CO ALS AMBULANCE AMBULANCE EMERGENCY TAXIN TAXIN TRANSPORT LEVEL 1 GROUND A0425 VICTORIA VICTORIA MILEAGE 3 CO CO PER AMBULANCE AMBULANCE STATUTE TAXIN TAXIN MILE DAY CARE S5100 THE THE SERVICES 3 [facility] ADULT; ADULT ADULT PER 15 DAY CARE DAY CARE MINUTES DAY CARE S5100 THE THE SERVICES 3 [facility] ADULT; ADULT ADULT PER 15 DAY CARE DAY CARE MINUTES DAY CARE S5100 THE THE SERVICES 3 [facility] ADULT; ADULT ADULT PER 15 DAY CARE DAY CARE MINUTES DAY CARE S5100 THE THE SERVICES [address] [place] [address] ADULT; ADULT ADULT PER 15 DAY CARE DAY CARE MINUTES DAY CARE S5100 THE THE SERVICES [address] [place] [address] ADULT; ADULT ADULT PER 15 DAY CARE DAY CARE MINUTES DAY CARE S5100 THE THE SERVICES [address] [place] [address] ADULT; ADULT ADULT PER 15 DAY CARE DAY CARE MINUTES DAY CARE S5100 THE THE SERVICES [address] [place] [address] ADULT; ADULT ADULT PER 15 DAY CARE DAY CARE MINUTES DAY CARE S5100 THE THE [facility] 3 [facility] ADULT; ADULT ADULT PER 15 DAY CARE DAY CARE MINUTES DAY CARE S5[address] ADULT; ADULT ADULT PER 15 DAY CARE DAY CARE MINUTES DAY CARE S5100 THE THE SERVICES 3 [facility] ADULT; ADULT ADULT PER 15 DAY CARE DAY CARE MINUTES DAY CARE S5100 THE THE SERVICES 3 [facility] ADULT; ADULT ADULT PER 15 DAY CARE DAY CARE MINUTES DAY CARE S5100 THE THE [facility] 3 [facility] ADULT; ADULT ADULT PER 15 DAY CARE DAY CARE MINUTES DAY CARE S5100 THE THE SERVICES 3 [facility] ADULT; ADULT ADULT PER 15 DAY CARE DAY CARE MINUTES DAY CARE S5100 THE THE SERVICES 3 [facility] ADULT; ADULT ADULT PER 15 DAY CARE DAY CARE MINUTES DAY CARE S5100 THE THE SERVICES 3 [facility] ADULT; ADULT ADULT PER 15 DAY CARE DAY CARE MINUTES AMB A0427 VICTORIA VICTORIA SERVICE 3 CO CO ALS AMBULANCE AMBULANCE EMERGENCY TAXIN TAXIN TRANSPORT LEVEL 1 GROUND A0425 VICTORIA VICTORIA MILEAGE 3 CO CO PER AMBULANCE AMBULANCE STATUTE TAXIN TAXIN MILE DAY CARE S5100 THE THE SERVICES 3 [facility] ADULT; ADULT ADULT PER 15 DAY CARE DAY CARE MINUTES DAY CARE S5100 THE THE SERVICES 3 [facility] ADULT; ADULT ADULT PER 15 DAY CARE DAY CARE MINUTES DAY CARE S5100 THE THE SERVICES [address] [place] [address] ADULT; ADULT ADULT PER 15 DAY CARE DAY CARE MINUTES DAY CARE S5[address] ADULT; ADULT ADULT PER 15 DAY CARE DAY CARE MINUTES DAY CARE S5100 THE THE SERVICES [address] [place] [address] ADULT; ADULT ADULT PER 15 DAY CARE DAY CARE MINUTES DAY CARE S5100 THE THE SERVICES [address] [place] [address] ADULT; ADULT ADULT PER 15 DAY CARE DAY CARE MINUTES DAY CARE S5[address] ADULT; ADULT ADULT PER 15 DAY CARE DAY CARE MINUTES DAY CARE S5[address] ADULT; ADULT ADULT PER 15 DAY CARE DAY CARE MINUTES [facility] [address] [facility] AIDED 2 MAMMOGRAP MOL [place] [address] [facility] GUIDANCE 2 MAMMOGRAP MOL NEEDLE HY PLACEMENT SERVICES IMG S&[place] [address] [facility] CENTRAL SURG 2 LATTER DAY [facility] H[facility]P GROSS&SAMANTHA ROSCOPIC EXAM BREAST 79123 [facility] BIOPSY 2 MAMMOGRAP MOL VACUUM HY ASSISTED/ SERVICES ROTATING DEVICE IMG GID 85369 [facility] PLMT MTLC 2 MAMMOGRAP MOL LOCLZJ HY CLIP PRQ SERVICES BRST BX/ASPIR DIAGNOSTI G0204 [facility] C 2 MAMMOGRAP MOL MAMMOGRAP HY HY INCL SERVICES CAD WHEN PERF; BILAT US BREAST 37011 [facility] REAL 2 MAMMOGRAP MOL TIME HY W/IMAGE SERVICES DOCUMENTA TION LOCALIZE 85363 [facility] 2 ELIZABETH MICHAEL SEIZURE NEUROLOGY CABLE/RAD IO EEG/VIDEO LOCALIZE 90379 [facility] 2 ELIZABETH MICHAEL SEIZURE NEUROLOGY CABLE/RAD IO EEG/VIDEO GLUC BLD 19810 [facility] 2 Y Y DEV [facility] CLEARED FDA SPEC HOME USE AMB A0427 [...] URBAN URBAN STATUTE COGOVT COGOVT MILE ECG 30040 [place] LUCRETIA POOJA ROUTINE 2 MEDICAL ECG SERV W/LEAST FOUNDATIO 12 LDS W/I&R AMB A0427 EARL EARL SERVICE 2 FAYETTE FAYETTE ALS URBAN URBAN EMERGENCY COGOVT COGOVT TRANSPORT LEVEL [address] LUMBAR [address] [place] GAURAV SPINE 2 MEDICAL ANGELA W/[place] [address] [place] AYOOB AND HEAD/BRAI 2 MEDICAL N W/O SERV CONTRAST FOUNDATIO MATERIAL RADIOLOGI 74105 [place] AYOOB AND C 2 MEDICAL EXAMINATI SERV ON CHEST [place] [address] [place]UR[place] THORACIC 2 MEDICAL ANGELA SPINE W/O SERV CONTRAST FOUNDATIO MATERIAL RADEX 48285 [place] AYOOB AND FOOT 2 MEDICAL COMPLETE SERV MINIMUM [address] [place] [address] [place] GAURAV CERVICAL 2 MEDICAL ANGELA SPINE [...] EMERGENCY [place] [address] [place] XIMENA JAM HEAD/BRAI 2 MEDICAL N W/[place] [address] [place] ESCOTT HEAD/BRAI 2 MEDICAL EDW N W/O SERV CONTRAST FOUNDATIO MATERIAL ALBUMIN 12558 [facility] SERUM 2 Y Y PLASMA/[facility] OLE BLOOD DRUG 45418 [facility] SCREEN 2 Y Y [facility] [place] [facility] PHENYTOIN FREE INJECTION J1200 [facility] 2 Y Y [facility] RAMINE HCL UP TO 50 MG AMB A0427 EARL EARL SERVICE 2 FAYETTE FAYETTE ALS URBAN URBAN EMERGENCY COGOVT COGOVT TRANSPORT LEVEL 1 GROUND A0425 EARL EARL MILEAGE 2 FAYETTE FAYETTE PER URBAN URBAN STATUTE COGOVT COGOVT MILE INJECTION J0515 [facility] 2 Y Y [facility] [place] [address] [place] [address] [place] CERVICAL 2 MEDICAL RYLIE SPINE W/O SERV CONTRAST FOUNDATIO MATERIAL RADIOLOGI 71968 [place] C 2 MEDICAL RYLIE EXAMINATI SERV ON FEMUR FOUNDATIO 2 VIEWS GROUND A0425 EARL EARL MILEAGE 2 FAYETTE FAYETTE PER URBAN URBAN STATUTE COGOVT COGOVT MILE INJECTION J1165 [facility] 2 Y Y PHENYTOIN [facility] SODIUM PER 50 MG INJECTION J2060 [facility] 2 Y Y LORAZEPAM [facility] 2 MG INFUSION J7050 [facility] NORMAL 2 Y Y SALINE [facility] SOLUTION 250 CC DRUG 17045 [facility] SCREEN 2 Y Y QUANTITAT [facility] SWAPNIL PHENYTOIN TOTAL AMB A0427 EARL EARL SERVICE 2 FAYETTE FAYETTE ALS URBAN URBAN EMERGENCY COGOVT COGOVT TRANSPORT LEVEL 1 RADEX HIP 79220 [place] NICKELS 2 MEDICAL RYLIE UNILATERA SERV L FOUNDATIO COMPLETE MINIMUM 2 VIEWS RADIOLOGI 52250 [place] C 2 MEDICAL RYLIE EXAMINATI SERV ON CHEST FOUNDATIO [place] RADIOLOGI 95593 [place] C 2 MEDICAL RYLIE EXAMINATI SERV ON KNEE 3 FOUNDATIO VIEWS BASIC 76301 [facility] METABOLIC 2 Y Y PANEL [facility] CALCIUM TOTAL BLOOD 92902 [facility] COUNT 2 Y Y COMPLETE [facility] AUTOMATED RADIOLOGI 24938 [place] C 2 MEDICAL RYLIE EXAMINATI SERV ON PELVIS FOUNDATIO 1/2 VIEWS THERAPEUT 25952 [facility] IC 2 Y Y INJECTION [facility] [place] [address] [facility] INFUSION 2 Y Y THERAPY/P [facility] ROPLAXI S /DX 1ST TO 1 HR RADIOLOGI 91646 [place] C 2 MEDICAL RYLIE EXAMINATI SERV ON TIBIA FOUNDATIO & FIBULA 2 VIEWS RADIOLOGI 12706 [place] C EXAM 2 MEDICAL RYLIE CHEST 2 SERV VIEWS FOUNDATIO FRONTAL&L ATERAL AMB A0427 EARL EARL SERVICE 2 FAYETTE FAYETTE ALS URBAN URBAN EMERGENCY COGOVT COGOVT TRANSPORT LEVEL 1 GROUND A0425 EARL EARL MILEAGE 2 FAYETTE FAYETTE PER [facility] STATUTE [facility] [address] [place] FEE DOM DISCHARGE 2 MEDICAL DAY SERV MANAGEMEN FOUNDATIO T 30 MIN/< LOCALIZE 87134 [place] CEREBRAL 2 MEDICAL JOSE MARTIN SEIZURE SERV CABLE/RAD FOUNDATIO IO EEG/VIDEO LOCALIZE 43156 [place] CEREBRAL 2 MEDICAL JOSE MARTIN SEIZURE SERV CABLE/RAD FOUNDATIO IO EEG/VIDEO SBSQ 35376 [place] [facility] 2 MEDICAL CARE/DAY SERV 25 FOUNDATIO MINUTES INITIAL 86540 [facility] 2 MEDICAL CARE/DAY SERV 70 FOUNDATIO MINUTES AMB A0427 EARL EARL SERVICE 2 FAYETTE FAYETTE ALS URBAN URBAN EMERGENCY COGOVT COGOVT TRANSPORT LEVEL 1 GROUND A0425 EARL EARL MILEAGE 2 FAYETTE FAYETTE PER [facility] [address] [place] HEAD/BRAI 2 MEDICAL RYLIE N W/[place] [address] [place] CERVICAL 2 MEDICAL RYLIE SPINE W/O SERV CONTRAST FOUNDATIO MATERIAL ECG 97013 GEILE LOBO GEILE LOBO ROUTINE 1 ECG W/LEAST 12 LDS I&R ONLY AMB A0427 [facility] SERV[facility] 1 R FIRE R FIRE ALS EMS EMS EMERGENCY TRANSPORT LEVEL 1 GROUND A0425 [facility] MI[facility] 1 R FIRE R FIRE PER EMS EMS STATUTE [facility] [address] [place] HODAN DISCHARGE 1 MEDICAL HENRY DAY SERV MANAGEMEN FOUNDATIO T 30 MIN/< LOCALIZE 95571 [place] BRIANNA CEREBRAL 1 MEDICAL CHINMAY SEIZURE SERV CABLE/RAD FOUNDATIO IO EEG/VIDEO INITIAL 37871 [place] [facility] 1 MEDICAL HENRY CARE/DAY SERV 50 FOUNDATIO MINUTES AMB A0422 [facility]2 1 R FIRE R FIRE SUPPLIES EMS EMS LIFE SUSTAININ G SITUATION ELECTROEN 72936 DK [place] CEPHALOGR 1 MEDICAL JOSE MARTIN AM W/REC SERV AWAKE&ASL FOUNDATIO EEP MRI BRAIN 62767 [place] CENT[place] BRAIN 1 MEDICAL HARISH STEM W/O SERV W/CONTRAS FOUNDATIO T MATERIAL GROUND A0425 [facility] MILEAGE 1 R FIRE R FIRE PER EMS EMS STATUTE MILE GROUND A0425 [facility] MI[facility]AGE 1 R FIRE R FIRE PER EMS EMS STATUTE MILE CRITICAL 53475 [facility] EMERGENCY ILL/INJUR SERVICES ED PATIENT INIT 30-74 MIN AMB A0422 [facility] O[facility]&O2 1 R FIRE R FIRE SUPPLIES EMS EMS LIFE SUSTAININ G SITUATION AMB A0427 [facility] 1 R FIRE R FIRE ALS EMS EMS EMERGENCY TRANSPORT LEVEL 1 AMB A0427 [facility] SERV[facility] 1 R FIRE R FIRE ALS EMS EMS EMERGENCY TRANSPORT LEVEL 1 AMB A0422 [facility] O[facility]&O2 1 R FIRE R FIRE SUPPLIES EMS EMS LIFE SUSTAININ G SITUATION RADIOLOGI 28396 [facility] [place] C 1 RADIOLOGY OSKAR EXAMINATI ON CHEST [place] FRONTAL ECG 53499 LEONEL KIRANID ROUTINE 1 EMERGENCY AKM ECG SERVICES W/LEAST 12 LDS I&R ONLY GROUND A0425 [facility] MILEAGE 1 R FIRE R FIRE PER EMS EMS STATUTE MILE EXC B9 00660 [place] SHAKEEL LESION 1 MEDICAL CHLOE MRGN XCP SERV SK TG FOUNDATIO S/N/H/F/G 1.1-2.0CM LEVEL III 02177 [facility] TANOUS SURG 1 EDW PATHOLOGY PATHOLOGY ASSOCIAT GROSS&SAMANTHA ROSCOPIC EXAM ANES 07311 [facility]ON[facility] BOLDEN GAV INTEG 1 LTH MUSC & ANESTHESI NRV HEAD A PSC NECK&POST ERIOR TRUNK ECG 00859 ALBERTA PINZON ROUTINE 1 REGIONAL REGIONAL ECG MEDICAL MEDICAL W/LEAST CENTE CENTE 12 LDS TRCG ONLY W/O I&R COLLECTIO 82304 ALBERTA PINZON N VENOUS 1 REGIONAL REGIONAL BLOOD MEDICAL MEDICAL VENIPUNCT CENTE CENTE URE BASIC 36023 ALBERTA PINZON METABOLIC 1 REGIONAL REGIONAL PANEL MEDICAL MEDICAL CALCIUM CENTE CENTE TOTAL ALVEOLOPL 65224 ALVARADO I BAUTISTA III ASTY EACH 1 BAUTISTA III LYUBOV QUADRANT PSC N0 3 SPECIFY DEEP D9220 ALVARADO I BAUTISTA III SEDATION/ 1 BAUTISTA III LYUBOV GENERAL PSC N0 3 ANESTHESI A-1ST 30 MINUTES ORTHOPANT 03763 ALVARADO I BAUTISTA III OGRAM 1 BAUTISTA III LYUBOV PSC N0 3 ECG 58609 RAMONA YUN YUN RAMONA ROUTINE 1 MD ECG CONSULTIN W/LEAST G SRV 12 LDS I&R ONLY INITIAL 18261 CARTER MACHADO JUVENTINO INPATIENT 1 CONSULT NEW/ESTAB [address] [place] [address] [facility] [place] SCALF MARII HEAD/BRAI 1 RADIOLOGY N W/O CONTRAST MATERIAL BLOOD 36510 [facility] UNIVERS COUNT 1 Y Y COMPLETE [facility] AUTOMATED IRON 52002 [facility] UNIVERS BINDING 1 Y Y CAPACITY [facility] [place] [place] [address] [facility] FERRITIN 1 Y Y [facility] LIPID 29290 [facility] UNIVERS PANEL 1 Y Y [facility] DRUG 73646 [facility] SCREEN 1 Y Y [facility] PHENYTOIN TOTAL COLLECTIO 78193 KIKI UNIVERS N VENOUS 1 Y Y BLOOD [facility] VENIPUNCT URE CHROMATOG 41517 [facility] HUMBERTO 1 Y Y [facility] COLUMN [place] [address] [facility] THYROID 1 Y Y STIMULATI [facility] NG HORMONE TSH COMPREHEN 56268 [facility] SIVE 1 Y Y METABOLIC [facility] [place] [place] [address] [facility] DK OLSEN HEAD/BRAI 1 RADIOLOGY N W/[place] [address] ALBERTA ALBERTA ABDOMEN 1 REGIONAL REGIONAL W/O & MEDICAL MEDICAL W/CONTRAS CENTE CENTE T MATERIAL Encounters Encounter Start End Date Code Location Performer Type Date EMERGENCY 35971 BRIAN JUAN DEPT 7 7 PHYSICIAN U VISIT S, PLL[facility] HIGH SEVERITY& THREAT FUNCJ EMERGENCY 28614 BRIAN JUAN DEPT 7 7 PHYSICIAN U VISIT S, [facility] HIGH SEVERITY& THREAT FUNCJ EMERGENCY 17067 KE 7 7 [facility] T VISIT LOW/MODER SEVERITY EMERGENCY 89813 Jeffrey MCCARTHY 7 PHYSICIAN JR DEPARTMEN S, PLLC T VISIT MODERATE SEVERITY HOSPITAL KE - 7 7 [facility] OUTPAT[facility]EN [facility] T [facility] KE - 7 7 [facility]IEN INC T EMERGENCY 60857 KE 7 7 [facility] T VISIT MODERATE SEVERITY EMERGENCY 49951 BRIAN OLMEDO DEPT 7 7 PHYSICIAN VISIT S, PLLC HIGH SEVERITY& THREAT FUNCJ EMERGENCY 87571 BRIAN PEOPLES DEPT 7 7 PHYSICIAN VISIT S, PLLC HIGH SEVERITY& THREAT [facility] KE - 7 7 [facility] OUTPATIEN INC T EMERGENCY 81091 KE 7 7 [facility] T VISIT HIGH/URGE NT SEVERITY HOSPITAL KE - 7 7 [facility] INC T HOSPITAL KE - 7 7 [facility] INC T OFFICE 00762 [facility] OUTPATIEN 7 7 PHYSICIAN T VISIT S GROUP 25 MINUTES OFFICE 83688 [facility] FR[facility] OUTPATIEN 7 7 PHYSICIAN T NEW 20 S GROUP MINUTES EMERGENCY 98159 BRIAN OLMEDO 7 7 PHYSICIAN DEPARTMEN S, PLLC T VISIT HIGH/URGE NT SEVERITY EMERGENCY 85448 BRIAN FIELDS DEPT 6 6 PHYSICIAN VISIT S, PLLC HIGH SEVERITY& THREAT FUNCJ OFFICE 16323 [facility] 6 Y T VISIT 5 HOSPITAL MINUTES HOSPITAL UNIVERSIT - 6 6 Y OUTPATIEN HOSPITAL T EMERGENCY 47059 BRIAN JUAN 6 6 PHYSICIAN U BEN DEPARTMEN S, PLLC T VISIT MODERATE SEVERITY EMERGENCY 59645 KE 6 6 [facility] DEPARTMEN INC T VISIT LOW/MODER SEVERITY HOSPITAL KE - 6 6 [facility] OUTPATIEN INC T EMERGENCY 24665 BRIAN BUCIO 6 6 PHYSICIAN FOR DEPARTMEN S, PLLC T VISIT MODERATE SEVERITY EMERGENCY 74642 BRIAN FIELDS 6 6 PHYSICIAN SAMANTHA DEPARTMEN S, PLLC T VISIT LOW/MODER SEVERITY EMERGENCY 92116 BRIAN FIELDS DEPT 6 6 PHYSICIAN SAMANTHA VISIT S, PLLC HIGH SEVERITY& THREAT FUNC EMERGENCY 65156 BRIAN FIELDS DEPT 6 6 PHYSICIAN SAMANTHA VISIT S, PLLC HIGH SEVERITY& THREAT FUNCJ EMERGENCY 51976 BRIAN FIELDS DEPT 6 6 PHYSICIAN SAMANTHA VISIT S, PLLC HIGH SEVERITY& THREAT FUNCJ EMERGENCY 60306 BRIAN FIELDS DEPT 6 6 PHYSICIAN SAMANTHA VISIT S, PLLC HIGH SEVERITY& [facility]AT [facility] OUTPATIEN INC T EMERGENCY 35432 BRIAN FIELDS DEPT 6 6 PHYSICIAN SAMANTHA VISIT S, PLLC HIGH SEVERITY& THREAT FUNCJ EMERGENCY 38313 KE 6 6 [facility] INC T VISIT MODERATE SEVERITY EMERGENCY 63288 BRIAN FIELDS 6 6 PHYSICIAN SAMANTHA DEPARTMEN S, PLLC T VISIT MODERATE SEVERITY EMERGENCY 73068 BRIAN JUAN 6 6 PHYSICIAN U BEN DEPARTMEN S, PLLC T VISIT MODERATE SEVERITY HOSPITAL KE - 6 6 [facility] OUTPATIEN [facility] T HOSPITAL KE - 6 6 [facility] T EMERGENCY 59778 KE 6 6 [facility] T VISIT LOW/MODER SEVERITY EMERGENCY 91212 BRIAN PEOPLES 6 6 [facility] T VISIT MODERATE SEVERITY HOSPITAL KE - 6 6 [facility] T EMERGENCY 63416 BRIAN FIELDS 6 6 PHYSICIAN [facility] DEPARTMEN S, PLLC T VISIT MODERATE SEVERITY EMERGENCY 92695 BRIAN FIELDS DEPT 6 6 PHYSICIAN SAMANTHA VISIT S, PLLC HIGH SEVERITY& THREAT FUNCJ EMERGENCY 20233 BRIAN FIELDS DEPT 6 6 PHYSICIAN SAMANTHA VISIT S, PLLC HIGH SEVERITY& THREAT FUNCJ EMERGENCY 42628 KE 6 6 [facility] T VISIT LIMITED/M INOR PROB EMERGENCY 03276 BRIAN FIELDS DEPT 6 6 PHYSICIAN SAMANTHA VISIT S, PLLC HIGH SEVERITY& THREAT [facility] KE - 6 6 [facility] T EMERGENCY 68998 BRIAN FIELDS 6 6 PHYSICIAN SAMANTHA DEPARTMEN S, PLLC T VISIT MODERATE SEVERITY EMERGENCY 76696 BRIAN FIELDS 6 6 PHYSICIAN SAMANTHA DEPARTMEN S, PLLC T VISIT HIGH/URGE NT SEVERITY EMERGENCY 35446 BRIAN FIELDS DEPT 6 6 PHYSICIAN SAMANTHA VISIT S, PLLC HIGH SEVERITY& THREAT FUNCJ EMERGENCY 29254 BRIAN FIELDS DEPT 6 6 PHYSICIAN SAMANTHA VISIT S, PLLC HIGH SEVERITY& THREAT FUNCJ EMERGENCY 15171 KE 6 6 [facility] INC T VISIT LIMITED/M INOR PROB HOSPITAL KE - 6 6 [facility] INC T EMERGENCY 81941 BRIAN FIELDS 6 6 PHYSICIAN SAMANTHA [facility] H[facility]/URGE NT SEVERITY EMERGENCY 34604 BRIAN FIELDS 6 6 PHYSICIAN SAMANTHA DEPARTMEN S, [facility] T VISIT MODERATE SEVERITY EMERGENCY 72088 BRIAN JUAN DEPT 6 6 PHYSICIAN U BEN VISIT S, [facility] HIGH SEVERITY& THREAT FUNJ EMERGENCY 39800 BRIAN PERRY MOH 6 6 [facility] H[facility]URGE NT SEVERITY HOSPITAL KE - 6 6 [facility] OUTPATIEN INC T EMERGENCY 91724 KE 6 6 [facility] INC T VISIT LOW/MODER SEVERITY EMERGENCY 65007 KE 6 6 [facility] T VISIT LOW/MODER SEVERITY HOSPITAL KE - 6 6 [facility] OUT[facility]IEN INC T EMERGENCY 79460 BRIAN PERRY MOH 6 6 PHYSIC[facility] H[facility]URGE NT SEVERITY HOSPITAL KE - 6 6 [facility] OUTPATIEN INC T EMERGENCY 06970 KE 6 6 [facility]ISM[facility] INC T VISIT LOW/MODER SEVERITY EMERGENCY 10655 BRIAN RAMOS SYLVIA 6 6 PHYSICIAN [facility]PARTMEN [facility], [facility] T VISIT HIGH/URGE NT SEVERITY EMERGENCY 45501 KE 6 6 [facility] VISIT HIGH/URGE NT SEVERITY HOSPITAL KE - 6 6 [facility] 6 6 [facility] 11242 BRIAN JUAN 6 [address] [place] [facility], [facility] T VISIT HIGH/URGE NT SEVERITY EMERGENCY 07913 KE 6 6 [facility] VISIT LOW/MODER SEVERITY HOSPITAL KE - 6 6 [facility] KE - 6 6 [facility] EMERGENCY 08237 BRIAN REES [address] [facility] T VISIT HIGH/URGE NT SEVERITY EMERGENCY 22502 KE 6 6 [facility] VISIT LOW/MODER SEVERITY EMERGENCY 31505 BRIAN BUCIO DEPT 5 5 PHYSICIAN FOR VISIT , [facility] HIGH SEVERITY& THREAT FUNJ EMERGENCY 70490 BRIAN LEWIS JR [address] [facility] T VISIT HIGH/URGE NT SEVERITY HOSPITAL KE - 5 5 [facility] EMERGENCY 46010 KE 5 5 [facility] VISIT HIGH/URGE NT SEVERITY OFFICE 91612 REJI HUTCHINS JAVIER CONSULTAT 5 5 N ION NEUROLOGY NEW/ESTAB PATIENT 60 MIN HOSPITAL REJI - 5 5 N OUTPATIEN COMMUNTIY [facility] KE - 5 5 [facility] EMERGENCY 53422 BRIAN JUAN [address] [facility], [facility] T VISIT HIGH/URGE NT SEVERITY HOSPITAL KE - 5 5 [facility] OUTPATIEN INC T EMERGENCY 12130 BRIAN REES 5 5 PHYSICIAN [facility] S, [facility] T VISIT HIGH/URGE NT SEVERITY OFFICE 08071 [facility] OUTPATIEN 5 5 PHYSICIAN RUSLAN Bhatti NEW 45 S GROUP MINUTES EMERGENCY 75594 BRIAN JUAN 5 5 PHYSICIAN [facility], [facility] T VISIT HIGH/URGE NT SEVERITY OFFICE 94966 [facility] 5 5 [place] VIS[place] ORTHOPAED 15 [facility] MINUTES EMERGENCY 19928 BRIAN JUAN 5 5 PHYSICIAN [facility], [facility] T VISIT LOW/MODER SEVERITY EMERGENCY 68184 BRIAN ABDI [address] [facility], [facility] T VISIT HIGH/URGE NT SEVERITY OFFICE 37802 [facility] [place] 5 5 [place] V[place] ORTHOPAED 15 [facility] MINUT[facility] OFFICE 24218 [facility] OUTPATIEN 5 5 PHYSICIAN TARAN Bhatti NEW 45 S GROUP MINUTES OFFICE 25780 [facility] OUT[facility] 5 5 [place] T NEW 30 ORTHOPAED MINUTES [facility] HOME VST 24380 MD2U LOEBKER EST PT 5 5 [place] [facility] SIGNIF NEW PROB 60 MINS HOME VST 64297 MD2U LOEBKER EST PT 5 5 [facility] SIGNIF NEW PROB 60 MINS OFFICE [address] [facility] OUTPATIEN 5 5 [facility] T VISIT [facility] [address] - 5 5 [facility] OUTPATIEN MED 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 ST HOME VST 11950 MD2U LOEBKER EST PT 5 5 [facility] SIGNIF NEW PROB [address] [facility] OUTPATIEN 5 5 CANDACE T NEW 30 MINUTES PHYSICIAN S HOME VST 21819 MD2U MANISHAEBKER EST PT 5 5 [facility] SIGNIF NEW PROB 60 MINS HOME VST 74689 MD2U MANISHAEBKER EST PT 5 5 [facility] SIGNIF NEW PROB 60 MINS HOME VST 60864 MD2U LOEBKER EST PT 5 5 [place] [facility] SIGNIF NEW PROB 60 MINS HOME VST 84634 MD2U MANISHAEBKER EST PT 4 4 [facility] SIGNIF NEW PROB 60 MINS HOME VST 55372 MD2U MANISHAEBKER EST PT 4 4 [place] [facility] SIGNIF NEW PROB [address] [facility] OUTPATIEN 4 4 C[facility]ACE HEI T VISIT 15 PHYSICIAN MINUTES S EMERGENCY 05648 EMERGENCY DAVREN DEPT 4 4 CARE ANNETTE VISIT PHYS HIGH [facility] SEVERITY& THREAT [facility]J HOME VST 42003 MD2U MANISHAEBKER EST PT 4 4 [place] [facility] SIGNIF NEW PROB 60 MINS EMERGENCY 31209 EMERGENCY [place] 4 4 CARE LOREN DEPARTMEN PHYS T VISIT [facility] HIGH/URGE NT SEVERITY HOME VST 02857 MD2U MANISHAEBKER EST PT 4 4 [place] [facility] SIGNIF NEW PROB 60 MINS EMERGENCY 05826 EMERGENCY ELLDUARTE 4 4 CARE SAMANTHA DEPARTMEN PHYS T VISIT [facility] HIGH/URGE NT SEVERITY [facility] ST - 4 4 C[facility]ACE OUTPATIEN FT T CRUZ OFFICE 91006 [facility] OUTPATIEN 4 4 PLASTIC T NEW 30 SURGERY MINUTES GROUP [facility] ST - 4 4 [facility] OUTPATIEN [facility] ST - 4 4 C[facility]ACE OUTPATIEN [facility] OFFICE [address] AN OUTPATIEN 4 4 C[facility]ACE PRIMO CHLOE T VISIT 15 PHYSICIAN MINUTES [facility] ST - 4 4 [facility] OUTPATIEN MED 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 OFFICE [address]30 ST AN OUTPATIEN 4 4 C[facility]ACE PRIMO CHLOE T VISIT 25 PHYSICIAN MINUTES S EMERGENCY 39392 EMERGENCY DEPT 4 4 CARE VISIT PHYS HIGH [facility] SEVERITY& THREAT [facility] ST - 4 4 C[facility]ACE OUTPATIEN [facility] OFFICE [address] AN OUTPATIEN 4 4 [facility] PRIMO CHLOE T VISIT 25 PHYSICIAN MINUTES S EMERGENCY 77627 [facility] KEYSHAWN 3 3 [facility] LUCIUSMEN MED CTR T VISIT MODERATE SEVERITY OFFICE [address]25 ST VAL OUTPATIEN 3 3 CANDACE KAII T VISIT 15 PHYSICIAN MINUTES [facility] ST - 3 3 CANDACE MOMINEN [facility] OFFICE [address] ST AN OUTPATIEN 3 3 CANDACE PRIMO CHLOE T VISIT 15 PHYSICIAN MINUTES S EMERGENCY 50726 EMERGENCY DAVREN 3 3 CARE ANNETTE DEPARTMEN PHYS T VISIT [facility] HIGH/URGE NT SEVERITY EMERGENCY 26645 EMERGENCY [place] DEPT 3 3 CARE LOREN VISIT PHYS HIGH [facility]THER[facility] SEVERITY& THREAT [facility] OFFICE 85778 [facility] OUTPATIEN 3 3 [facility] MAT T NEW 20 ORTHOPAE MINUTES EMERGENCY 64218 EMERGENCY DORY 3 3 CARE SANGEETA DEPARTMEN PHYS T VISIT [facility] HIGH/URGE NT SEVERITY OFFICE 28042 ST AN OUTPATIEN 3 3 C[facility]ACE PRIMO CHLOE T VISIT 15 PHYSICIAN MINUTES S EMERGENCY 57970 [facility]ON[facility] COBOS DEPT 3 3 EMERGENCY VISIT SERVICES HIGH SEVERITY& THREAT FUNCJ OFFICE 12944 ST AN OUTPATIEN 3 3 CANDACE PRIMO CHLOE T VISIT 25 PHYSICIAN MINUTES S OFFICE [address] ST SCHACK OUTPATIEN 3 3 C[facility]ACE LOREN T VISIT 15 PHYSICIAN MINUTES S OFFICE 76[address] ST AN OUTPATIEN 3 3 CANDACE PRIMO CHLOE T VISIT 25 PHYSICIAN MINUTES S EMERGENCY 73467 KE 3 3 [facility]OS[facility] DEPARTMEN INC T VISIT MODERATE SEVERITY HOSPITAL KE - 3 3 [facility]OS[facility] OUTPATIEN INC T EMERGENCY 25331 LEONEL COBOS DEPT 3 3 EMERGENCY VISIT SERVICES HIGH SEVERITY& THREAT FUNJ EMERGENCY 06305 LEONEL VERDUZCO DEPT 3 3 EMERGENCY VISIT SERVICES HIGH SEVERITY& THREAT FUN OFFICE 45533 ST OUTPATIEN 3 3 CANDACE T VISIT FT 10 [facility] ST - 3 3 C[facility]ACE OUTPATIEN [facility] ST - 3 3 CANDACE OUTPATIEN [facility] OFFICE [address] ST DEAN HEL OUTPATIEN 3 3 CANDACE T VISIT 15 PHYSICIAN MINUTES [facility] ST - 3 3 C[facility] OUTPATIEN [facility] OFFICE [address] ST [place] OUTPATIEN 3 3 CANDACE HEI T NEW 45 MINUTES [facility] ST - 3 3 C[facility]ACE OUTPATIEN [facility] OFFICE [address] DEAN HEL OUTPATIEN 3 3 CANDACE T VISIT 15 PHYSICIAN MINUTES S OFFICE [address] ST DIANNE HEL OUTPATIEN 3 3 CANDACE T VISIT 25 PHYSICIAN MINUTES S OFFICE 93893 ST DI[facility] HEL OUTPATIEN 3 3 CANDACE T VISIT 25 PHYSICIAN MINUTES S EMERGENCY 07929 LEONEL FIELDS DEPT 3 3 EMERGENCY SAMANTHA VISIT SERVICES HIGH SEVERITY& THREAT [facility] CENTRAL - 2 2 [facility] UNIVERSIT - 2 2 [facility] T EMERGENCY 30404 [facility] 2 2 EMERGENCY DEPARTMEN SERVICES T VISIT MODERATE SEVERITY EMERGENCY 36540 UNIVERSIT 2 2 Y [facility] T VISIT LOW/MODER SEVERITY OFFICE 30337 [facility] BEN BEN T VISIT 25 MINUTES EMERGENCY 95299 DK FRIAS 2 2 MEDICAL DEPARTMEN SERV T VISIT FOUNDATIO HIGH/URGE NT SEVERITY EMERGENCY 32378 UNIVERSIT 2 2 Y [facility] T VISIT MODERATE SEVERITY HOSPITAL UNIVERSIT - 2 2 Y [facility] T OFFICE 12185 [facility] CONSULTAT 2 2 ELIZABETH RODRIGUEZ ION NEUROLOGY NEW/ESTAB PATIENT 40 MIN EMERGENCY 40159 KD PEREZ 2 2 MEDICAL SET DEPARTMEN SERV T VISIT FOUNDATIO HIGH/URGE NT SEVERITY EMERGENCY 79593 DK RENO 2 2 MEDICAL RYLIE DEPARTMEN SERV T VISIT FOUNDATIO HIGH/URGE NT SEVERITY OFFICE 33839 CORALFINA CORALES OUTPATIEN 2 2 BEN BEN T VISIT 15 MINUTES OFFICE 06450 [facility] CORALES OUTPATIEN 2 2 BEN BEN T NEW 45 MINUTES EMERGENCY 14874 DK REYES 2 2 MEDICAL I ALI DEPARTMEN SERV T VISIT FOUNDATIO HIGH/URGE NT SEVERITY EMERGENCY 56826 DK RENO 2 2 MEDICAL RYLIE DEPARTMEN SERV T VISIT FOUNDATIO HIGH/URGE NT SEVERITY HOSPITAL UNIVERSIT - 2 2 Y [facility] T OFFICE 20104 [facility] PAT CONSULTAT 2 2 [facility] NEW/ESTAB PSC PATIENT 60 MIN EMERGENCY 99823 [facility] DEPT 1 1 VISIT HIGH SEVERITY& THREAT FUNCJ EMERGENCY 04905 LEONEL DEMPSEY 1 1 EMERGENCY SCO DEPARTMEN SERVICES T VISIT MODERATE SEVERITY EMERGENCY 86277 DK REYES DEPT 1 1 MEDICAL I ALI VISIT SERV HIGH FOUNDATIO SEVERITY& THREAT FUNCJ OFFICE 40597 [facility] OUT[facility] 1 1 I JOSE CRUZ I JOSE CRUZ T NEW 45 MINUTES EMERGENCY 04508 [facility] DEPT 1 1 EMERGENCY AKM VISIT SERVICES HIGH SEVERITY& THREAT FUNCJ OFFICE 42912 DK [facility] CONSULTAT 1 1 MEDICAL CHLOE ION SERV NEW/ESTAB FOUNDATIO PATIENT 60 MIN [facility] [place] - 1 1 [facility] OFFICE 87369 UNIV [facility] 1 [place] [facility] T VISIT MEDICINE 25 P MINUTES OFFICE 01108 [place] I BA[place]IST[place] III CONSULTAT 1 1 [place] III LYUBOV ION PSC N0 3 NEW/ESTAB PATIENT 30 MIN EMERGENCY 89709 [facility] DEPT 1 1 EMERGENCY VISIT SERVICES HIGH SEVERITY& THREAT FUNCJ OFFICE 27024 EUNICE BELCHER OUTPATIEN 1 1 [place] [facility] T VISIT MEDICINE 15 P MINUTES HOSPITAL UNIVERSIT - 1 1 [facility] [place] 1 [facility]
--- OUTSIDE RECORDS SUMMARY | 2017-06-28 01:33 | External Medical Summary Rpt ---
Demographics Home Phone Preferred Language Wallisian Marital Status Unknown Alevism Affiliation Unknown Race Unknown Ethnic Group Unknown Author Author KATHI Address Unknown Phone [email or web address] Immunization Name Date Rout CVX Reac Dose Comm Prov Is Faci e tion ent ider Refu lity Give sed n TST- 04-0 Intr 96 999 Hist [place] No [place] PPD 1-20 ader oric intr 14 mal al ader Info mal rmat ion - Sour ce Unsp ecif ied PPV2 02-2 Intr 33 999 Hist JUAN CARLOS No JUAN CARLOS 3 3-20 amus oric TTHO TTHO 14 cula al MAS MAS r Info rmat ion - Sour ce Unsp ecif ied
--- OUTSIDE RECORDS SUMMARY | 2017-06-28 01:33 | External Medical Summary Rpt ---
Demographics Home Phone Preferred Language Lithuanian Marital Status Unknown Religion Affiliation Unknown Race Unknown Ethnic Group Unknown Author Author KATHI Address Unknown Phone [email or web address] Immunization Name Date Rout CVX Reac Dose Comm Prov Is Faci e tion ent ider Refu lity Give sed n TST- 04-0 Intr 96 999 Hist [place] No [place] PPD 1-20 ader oric intr 14 mal al ader Info mal rmat ion - Sour ce Unsp ecif ied PPV2 02-2 Intr 33 999 Hist JUAN CARLOS No JUAN CARLOS 3 3-20 amus oric TTHO TTHO 14 cula al MAS MAS r Info rmat ion - Sour ce Unsp ecif ied
== END 2017-05-28 13:20 | disposition home or self-care (01) ==
LOC: ER 12:00 → 2ND 16:44
PROVIDERS: Emergency Medicine
DX: F45.8 Other somatoform disorders (principal); F54 Psychological and behavioral factors associated with disorders or diseases classified elsewhere; R07.9 Chest pain, unspecified; I10 Essential (primary) hypertension; Z72.0 Tobacco use; E11.9 Type 2 diabetes mellitus without complications; F20.9 Schizophrenia, unspecified
CPT/HCPCS: G0378

== ENCOUNTER 2017-06-02 18:51 | Emergency (ER) | payer MEDICAID ==
[~2017-06-02] VITALS: Ht 160 cm; Wt 99.8 kg
[~2017-06-02 18:51] MED LIST changes: +AMOXICILLIN AND1 TER PO; +BUSPIRONE HCL10 MG PO; +TRAZODONE50 MG PO
[2017-06-02 19:33] LABS: LYMPH # 3.2 K/mm3 (0.7-4.5); LYMPH % 39.1 % (10-50.0)
[2017-06-02 19:46] LABS: HEMOGLOBIN 12.3 g/dL (12.2-16.2)
[2017-06-02 19:56] LABS: FREE THYROXIN INDEX 3.6 ug/dl (5.93-13.13)
--- NOTE | 2017-06-02 20:18 | Emergency Room Report ---
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 AND FOR THE PAST THREE DAYS SHE HAS BEEN HEARING VOICES AND TALKING LIKE SHE IS A DIFFERENT PERSON. 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 N Clinical Suspician of Infection? N Mental Status: 1 - Regular (Normal Baseline) Sepsis Risk:Low Sepsis Risk Have you (or family members/close friends) recently traveled outside the [place]? N If Yes, where/when: Have you had exposure to infectious disease within the past month? N TB? Other? Specify: Source patient, RN notes reviewed, EMS, old records Exam Limitations no limitations Comment pt with reported hearing voices over the last 3 days and presents to ed for eval - she reports feeling anxious about recent events in [place] - she denied suicidal thoughts Cardiac Chest Pain Chest pain indicative of cardiac No Timing/Duration this evening Severity moderate ALLERGIES Coded Allergies: Sulfa (Sulfonamide Antibiotics) (05/26/17) aspirin (05/26/17) ibuprofen (From MOTRIN) (05/26/17) Home Medications Active Scripts GENTAMICIN SULFATE (GENTAMICIN 0.3% OPHTH SOLN) 1 DROP OP Q4H #1 BOT Prov: 05/23/17 Metoprolol Tartrate (Metoprolol 25MG) 50 MG PO BID 28 Days Prov: 05/28/17 Reported Medications Calcium Carbonate (Tums Ultra) 400-800 MG PO PRN PRN INDIGESTION Guaifenesin (Robafen) 10 ML PO Q4HP PRN COUGH SERTRALINE HYDROCHLORIDE (Zoloft 100MG) 200 MG PO QAM Hydrochlorothiazide W/Triamter (Triamterene-Hctz 37.5-25 MG Tb) 1 CAP PO DAILY #30 TAB BENZTROPINE MESYLATE (COGENTIN 1MG TAB) 1 MG PO TID GABAPENTIN (Gabapentin) 1,200 MG PO TID METFORMIN HCL (Metformin) 500 MG PO BID Omeprazole 20 MG PO DAILY Risperidone (Risperdal 1 Mg Tab) 4 MG PO BID Levetiracetam (Keppra) 1,000 MG PO Q12 Gemfibrozil (GEMFIBROZIL 600MG) 600 MG PO BID Olanzapine (Olanzapine 5MG Tab) 5 MG PO QHS Buspirone Hcl (Buspirone 10MG) 10 MG PO BID Trazodone Hcl (Trazodone HCl) 50 MG PO QHS AMOXICILLIN/POTASSIUM CLAV (Amoxicillin-Clav ER 1,000-62.5) 1 TAB PO BID Multivitamin (Multivitamins) 1 TAB PO DAILY Loperamide Hcl (Loperamide) 2 MG PO Q3HP PRN DIARRHEA Acetaminophen (Acetaminophen Tab) 650 MG PO Q8HP PRN PAIN/FEVER Magnesium Hydroxide (Milk Of Magnesia) 30 ML PO DAILYP PRN CONSTIPATION Sucralfate (Carafate Tab) 1 GM PO BID Clonazepam (Klonopin 0.5MG) 0.5 MG PO BID Fenofibrate 54 MG PO DAILY Montelukast Sodium (Singulair 10MG) 10 MG PO QHS OMEGA-3 ACID ETHYL ESTERS (Lovaza) 1 GM PO BID Topiramate 200 MG PO BID #60 CHOLECALCIFEROL (VITAMIN D3) (Vitamin D3) 5,000 UNITS PO DAILY BUDESONIDE/FORMOTEROL FUMARATE (Symbicort 160-4.5 Mcg Inhaler) 1 PUFF IH BID Albuterol Sulfate (Proair Hfa) 1 PUFF IH Q6HP PRN ASTHMA Fluticasone Propionate (Flonase 50 Mcg Nasal [place]) 1 SPRAY NA DAILY FLUTICASONE/VILANTEROL (Breo Ellipta 100-25 Mcg INH) 1 POW IH DAILY Oxcarbazepine 600 MG PO BID Discontinued Reported Medications Metoprolol Tartrate (Metoprolol 25MG) 25 MG PO BID PHENYTOIN SODIUM EXTENDED (Phenytoin 100MG Capsule) 200 MG PO BID History Medical History General CAD? No Angina: No [place]: No Hypertension? Yes Hyperlipidemia? Yes CHF? Yes DVT? No PE? No COPD? No Asthma? Yes Anemia? No GERD? No Gastric ulcers? No GI Bleed? No Hernia? No Thyroid Problems? No Hypothyroidism? No CVA? No Seizures? Yes Diabetes? Yes Insulin Dependent: No Insulin Pump: No Home FSBS? No Renal Insuffiency? No End Stage Renal Disease? No UTI? No Stones? No BPH? No GB Disease: No Nephritic Syndrome? No Asplenia? No Hepatitis? No Sickle Cell Disease? No Arthritis? No Migraines? No Cataracts? No Glaucoma? No MRSA? No HIV? No TB? No Anxiety? No Depression? No Cancer? Yes Site: BREAST More? 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 Respiratory denies cough, denies shortness of breath, denies wheezing Cardiovascular denies chest pain, denies palpitations, denies syncope Gastrointestinal denies abdominal pain, denies diarrhea, denies vomiting Genitourinary denies: dysuria, frequency, hesitancy, hematuria. Musculoskeletal denies back pain, denies joint pain, denies joint swelling, denies neck pain Skin denies rash Psychiatric/Neurological see HPI, anxiety, emotional problems, denies seizure, denies weakness Physical Exam Vital Signs Vital Signs Date Time Temp Pulse Resp B/P Pulse O2 O2 Flow FiO2 Ox Delivery Rate 06/02 1854 98.0 84 16 162/91 98 - WBC >12,000 or <4,000 or 10% bands? 2 or more SIRS Criteria Met? B/P:162/91 MAP:114 Creatinine >2.0? UA output<0.5ml/kg/hr for 2 hrs? Platelet count >100,000? Lactate >2.0mmol/1? INR >1.2 or PTT > than 60 sec? Evidence of Organ Dysfunction? Provider documented clinical suspician of infection? N Sepsis Criteria Count: 0 Sepsis Risk: Low Sepsis Risk General Appearance no apparent distress Eye Exam - bilateral eye PERRL, bilateral eye EOMI Ear, Nose, Throat normal ENT inspection Neck supple Respiratory Status No: respiratory distress. Lung Sounds bilateral: lungs clear. 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 No Results/Orders Laboratory Tests 06/02/172024: Opiates Screen NEGATIVE, Urine Methadone Screen NEGATIVE, Barbiturates NEGATIVE, Phencyclidine Screen NEGATIVE, Amphetamines Screen NEGATIVE, Benzodiazepines Screen NEGATIVE, Cocaine Screen NEGATIVE, Marijuana (THC) Screen NEGATIVE, Urine Color YELLOW, Urine Appearance CLEAR, Urine pH 6.0, Ur Specific [place] 1.015, Urine Protein NEGATIVE, Urine Ketones NEGATIVE, Urine Blood NEGATIVE, Urine Nitrate NEGATIVE, Urine Bilirubin NEGATIVE, Urine Urobilinogen 0.2, Ur Leukocyte Esterase NEGATIVE, Urine RBC 5-10, Urine WBC 3-5, Ur Squamous Epith Cells 20-50, Urine Bacteria TRACE, Urine Glucose NEGATIVE 06/02/171919: TSH 1.71, Free T4 Index 3.6 L, Thyroxine (T4) 4.4 L, T3 Uptake 33, Phenytoin 0.8 L 06/02/171919: Sodium 133 L, Potassium 3.5, Chloride 96 L, Carbon Dioxide 27, BUN 9, Creatinine 0.7, Estimated Creat Clear 150, Estimated GFR (MDRD) 88, Glucose 89, Calcium 9.7, Total Bilirubin 0.1 L, AST 12 L, ALT 29, Alkaline Phosphatase 95, Total Protein 7.8, Albumin 4.4, Globulin 3.4 H, Albumin/Globulin Ratio 1.3, WBC 8.3, RBC 3.90 L, Hgb 12.3, Hct 35.3 L, MCV 90.5, RDW 12.5, Plt Count 342, MPV 7.1 L, Gran % 52.6, Gran # 4.4, Lymphocytes % 39.1, Monocytes % 4.6, Eosinophils % 3.2, Basophils % 0.5, Lymphocytes # 3.2, Monocytes # 0.4, Eosinophils # 0.3, Basophils # 0.1, PUBS MCHC 35.1, MCH 31.7 H, Salicylates 6.6 , Acetaminophen 0 L, Alcohols 0 Current Medication Orders Sig/Thomas Start time Last Medication Dose Route Stop Time Status Admin Sodium Chloride 10 ML PRN PRN 06/02 1900 AC IV 06/03 1859 Orders Procedure Date/time Status THYROID PANEL 2 (WITH TSH) 06/02 1927 Complete PHENYTOIN (DILANTIN) 06/02 1927 Complete IV SALINE LOCK 06/02 1900 Active URINALYSIS/COMPLETE 06/02 1900 Complete SALICYLATE 06/02 1900 Complete DRUG ABUSE SCREEN (TRIAGE) 06/02 1900 Complete CBC WITH AUTO DIFF 06/02 1900 Complete CHEM 12 PROFILE 06/02 1900 Complete ALCOHOL 06/02 1900 Complete Acetaminophen 06/02 1900 Complete Departure Departure Time of Disposition 2132 Disposition DC Home or Self Care(routine) Clinical Impression Primary Impression: Anxiety as acute reaction to exceptional stress Condition STABLE Referrals Nadir Pereira MD (Family) Patient Instructions DI for Anxiety -- Adult Additional Instructions use meds and see pcp and therapist for follow up Discharge Counseling Counseled pt/family regarding diagnosis, test results, medications/RX, follow up needs ED Critical Care Critical Care No at 2136
[2017-06-02 20:36] LABS: URINE BILIRUBIN - DIPSTICK NEGATIVE (NEG); URINE BLOOD NEGATIVE (NEG)
[2017-06-02 20:47] LABS: URINE SQUAMOUS CELLS 20-50 #/hpf (0-5)
[2017-06-02 21:00] LABS: AMPHETAMINES/METAMPHETAMINES NEGATIVE ng/mL (<1000)
[2017-06-02 22:42] VITALS: BP 143/83
== END 2017-06-02 22:42 | disposition home or self-care (01) ==
LOC: ER 18:51
PROVIDERS: Emergency Medicine
DX: F41.8 Other specified anxiety disorders (principal); F43.0 Acute stress reaction; F17.210 Nicotine dependence, cigarettes, uncomplicated; E11.9 Type 2 diabetes mellitus without complications; Z79.84 Long term (current) use of oral hypoglycemic drugs; Z79.51 Long term (current) use of inhaled steroids; Z79.899 Other long term (current) drug therapy; I11.0 Hypertensive heart disease with heart failure; I50.9 Heart failure, unspecified; E78.5 Hyperlipidemia, unspecified; J45.909 Unspecified asthma, uncomplicated; F20.9 Schizophrenia, unspecified

== ENCOUNTER → 2017-07-29 | Outpatient (CLI) | payer MEDICAID ==
--- NOTE | 2017-07-30 09:46 | RADIOLOGY REPORT PS360 ---
MRI-BRAIN W/WO HISTORY: SEIZURES, syncope, seizures ORDERING PHYSICIAN: NARGIS MOREIRA PATIENT AGE: 52 years COMPARISON: CT scan of 04/24/2017 TECHNIQUE: Standard multiplanar multiecho sequences are performed without and with gadolinium enhancement. FINDINGS: No midline shift, mass effect, intracranial hemorrhage, or hydrocephalus is evident. No evidence of acute infarction or abnormal restricted diffusion. There are is minimal increased periventricular T2 white matter signal intensity. A small T2 hyperintensity is present in the left perera radiata. This does not enhance and does not show restricted diffusion consistent with a small nonspecific gliotic focus. No enhancing lesions are evident. No intra or extra-axial mass. The cerebellopontine angles, cerebellum, and brainstem are unremarkable. The hippocampal gyri are unremarkable. There is some minimal asymmetry in the temporal horns of the lateral ventricles. This however is of questionable clinical significance of the hippocampal gyrus does not appear irregular nor does it have increased T2 signal. The urinary and optic chiasm are unremarkable. There is severe mucosal thickening of the maxillary sinuses with mucosal thickening also present in the ethmoid sinuses and sphenoid sinus. Postsurgical changes are present of the maxillary sinuses and nasal turbinates. Small amount fluid is present in the right mastoid sinus. IMPRESSION: 1. No acute intracranial findings. 2. Nonspecific T2 white matter hyperintensity in the left parietal area and may be related to a small ischemic gliotic focus 3. Minimal asymmetry in the temporal horns of lateral ventricles. No evidence of hydrocephalus. The hippocampal right have an unremarkable appearance. 4. Chronic sinusitis. Right mastoid effusion
== END ==
LOC: RAD 07-24 10:15
DX: R56.9 Unspecified convulsions (principal)
CPT/HCPCS: A9576

== ENCOUNTER 2017-07-31 16:20 | Emergency (ER) | payer MEDICAID ==
[~2017-07-31] VITALS: Ht 160 cm; Wt 99.8 kg
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
--- OUTSIDE RECORDS SUMMARY | 2017-07-31 16:50 | External Medical Summary Rpt | CCD ---
Demographics Home Phone Preferred Language Cymro Marital Status Unknown Lutheran Affiliation Unknown Race Unknown Ethnic Group Unknown Author Author , KATHI ARMENTA Address Unknown Phone [email or web address] Immunization Name Date Rout CVX Reac Dose Comm Prov Is Faci e tion ent ider Refu lity Give sed n TST- 04-0 Intr 96 999 Hist [place] No [place] PPD 1-20 ader oric intr 14 mal al ader Info mal rmat ion - Sour ce Unsp ecif ied PPV2 02-2 Intr 33 999 Hist JUAN CARLOS No JUAN CARLOS 3 3-20 amus oric TTHO TTHO 14 cula al MAS MAS r Info rmat ion - Sour ce Unsp ecif ied
--- OUTSIDE RECORDS SUMMARY | 2017-07-31 16:50 | External Medical Summary Rpt | CCD ---
Author Author , KATHI ARMENTA Address Unknown Phone [email or web address] Care Team Providers Care Deckhand Fishing Vessel Name Role Phone Muriel Ruiz MD, Unavailable Unavailable Muriel Ruiz MD Purpose Continuity of Care Document - 02-14-2013 through 2016 Problems Code Diagnosis DOS Provider Status 305.1 305.1 05-23-2013 Piyush TOBACCO USE [facility] 401.9 401.9 05-23-2013 Piyush HYPERTENSIO [facility] N NOS Hospital 493.90 493.90 05-23-2013 Piyush ASTHMA, [facility] UNSPECIFIED Hospital 780.39 780.39 05-23-2013 [place] OTHER [facility] CONVULSIONS Hospital 786.59 786.59 05-23-2013 Piyush CHEST PAIN [facility] 847.0 847.0 02-21-2013 Piyush SPRAIN OF [facility] NECK [facility] 920 920 02-21-2013 Piyush CONTUSION [facility] FACE/SCALP/ Hospital NCK E849.0 E849.0 02-21-2013 Piyush ACCIDENT IN [facility] E884.2 E884.2 FALL 02-21-2013 Piyush FROM [facility] E87.1 HYPO-OSMOLA LITY AND HYPONATREMI A E87.6 HYPOKALEMIA F23 BRIEF PSYCHOTIC DISORDER F25.9 Schizoaffec tive disorder, unspecified F29 UNSP PSYCHOSIS NOT DUE TO A SUBSTANCE OR KNOWN PHYSIOL COND F41.1 GENERALIZED ANXIETY DISORDER F44.5 CONVERSION DISORDER WITH SEIZURES OR CONVULSIONS G40.909 EPILEPSY, UNSP, NOT INTRACTABLE , WITHOUT STATUS EPILEPTICUS H00.025 HORDEOLUM INTERNUM LEFT LOWER EYELID H05.012 CELLULITIS OF LEFT ORBIT [id number] J01.90 ACUTE SINUSITIS, UNSPECIFIED J20.9 ACUTE BRONCHITIS, UNSPECIFIED J32.9 CHRONIC SINUSITIS, UNSPECIFIED J40 BRONCHITIS, NOT SPECIFIED ACUTE OR CHRONIC M62.82 RHABDOMYOLY SIS R07.9 CHEST PAIN, UNSPECIFIED R45.851 Suicidal ideations R55 SYNCOPE AND COLLAPSE R56.9 UNSPECIFIED CONVULSIONS R74.8 ABNORMAL LEVELS OF OTHER SERUM ENZYMES R78.89 FINDING OF OTH SUBSTANCES, NOT NORMALLY FOUND IN BLOOD S00.03XA CONTUSION OF SCALP, INITIAL ENCOUNTER S00.91XA ABRASION OF UNSPECIFIED PART OF HEAD, INITIAL ENCOUNTER S00.93XA CONTUSION OF UNSPECIFIED PART OF HEAD, INITIAL ENCOUNTER S06.0X9A CONCUSSION W LOSS OF CONSCIOUSNE SS OF UNSP DURATION, INIT S09.90XA UNSPECIFIED INJURY OF HEAD, INITIAL ENCOUNTER S20.219A CONTUSION OF UNSPECIFIED FRONT WALL OF THORAX, INIT ENCNTR S20.229A CONTUSION OF UNSPECIFIED BACK WALL OF THORAX, INIT ENCNTR S30.0XXA CONTUSION OF LOWER BACK AND PELVIS, INITIAL ENCOUNTER S39.012A STRAIN OF MUSCLE, FASCIA AND TENDON OF LOWER BACK, INIT S69.91XA UNSP INJURY OF RIGHT WRIST, HAND AND FINGER(S), INIT ENCNTR S70.01XA CONTUSION OF RIGHT HIP, INITIAL ENCOUNTER S80.00XA CONTUSION OF UNSPECIFIED KNEE, INITIAL ENCOUNTER S80.01XA CONTUSION OF RIGHT KNEE, INITIAL ENCOUNTER S80.11XA CONTUSION OF RIGHT LOWER LEG, INITIAL ENCOUNTER W19.XXXA UNSPECIFIED FALL, INITIAL ENCOUNTER Allergies, Adverse Reactions, Alerts Type Drug Allergy Adverse Reaction to Substance Substance Reaction Severity SULFA (sulfonamide) S-DIFF. BREATHING Severe Aspirin Q-KUKLBT-SCYB/THROAT Severe Ibuprofen Z-IKWLRY-VQZA/THROAT Severe Medications Na ND Rx Da Fi Fi Am Da Di Ph RX Ph St me C No te ll ll ou ys ag ar # ys at rm s nt no ma ic us Or Da si cy ia de te s n re d Sa 63 09 0 No li 80 -0 ne 70 2- Lo 10 20 ng Fl 07 13 er us 5 h Ac 10 ti ML ve Sy ri ng e TY 50 06 0 No LE 58 -0 NO 00 3- Lo L 45 20 ng EX 10 13 er -S 3 TR Ac ti 50 ve [address] ET Vital Signs 05-23-2013 18:37 Name Value Interpretat [...] Order Detail nces retati t Range on Comprehensive metabolic panel (07-20-2017 11:59) Serum = 1.2 1.1-1.8 complet or 017 ed plasma 11:59 albumin /globul in mass ra Serum = 4.0 3.4-5.0 complet or 017 gm/dL ed plasma 11:59 albumin measure ment (mas Serum = 95 46-116 complet or 017 U/L ed plasma 11:59 alkalin e phospha tase darren Serum = 0.2 0.2-1.0 complet or 017 mg/dL ed plasma 11:59 total bilirub in measure m Serum = 7 7-18 complet or 017 mg/dL ed plasma 11:59 urea nitroge n measure men Serum = 9.1 8.5-10. complet or 017 mg/dL 1 ed plasma 11:59 calcium measure ment (mas Serum = 103 98-107 complet or 017 mmoL/L ed plasma 11:59 chlorid e measure ment (mo Carbon 10-30-2 = 28 21.0-32 complet dioxide 017 mmoL/L .0 ed 11:59 measure ment Serum 30-2 = 0.7 0.55-1. complet or 017 mg/dL 02 ed plasma 11:59 creatin ine measure ment ( Estimat 30-2 = 88 59- complet ed 017 ML/MIN ed glomeru 11:59 lar filtrat ion rate (GF Comment: REFERENCE RANGE: >60 ML/MIN/1.73 SQUARE METERS Comment: If this patient is -Cypriot, then multiply the Comment: result by 1.210. Serum 30-2 = 3.3 1.3-3.2 complet globuli 017 gm/dL ed n 11:59 measure ment (mass/v olume) Serum 10-2 = 86 74-106 complet or 017 mg/dL ed plasma 11:59 glucose measure ment (mas Serum 07-20-2 = 4.5 3.5-5.1 complet potassi 017 mmoL/L ed um 11:59 measure ment Serum 07-20-2 = 139 136-145 complet sodium 017 mmoL/L ed measure 11:59 ment Serum 1030-2 = 13 15-37 complet or 017 U/L ed plasma 11:59 asparta te aminotr ansfera ALT 07-20-2 = 28 12-78 complet (SGPT) 017 U/L ed ser/buck 11:59 s Protein 07-20-2 = 7.3 6.4-8.2 complet total 017 gm/dL ed ser/buck 11:59 s Phenytoin SerPl-nc (06-04-2017 12:19) Phenyto < 0.8 10.0-20 complet in 017 ug/mL .0 ed SerPl-m 12:19 Cnc COMPREHENSIVE METABOLIC PANEL (02-14-2013 17:35) Glucose 161 74-106 complet 013 mg/dL ed Bld-mCn 17:35 c BUN 14 7-18 complet Bld-mCn 013 mg/dL ed c 17:35 Creat 0.9 0.6-1.0 complet SerPl-m 013 mg/dL ed Cnc 17:35 ESTIMAT 127 50-200 complet ED 013 ML/MIN ed CREATIN 17:35 INE CLEARAN CE GFR 67 59- complet (ESTIMA 013 ML/MIN ed JERI) 17:35 Sodium 02-14- 139 136-145 complet SerPl-s 013 mmoL/L ed Cnc 17:35 Potassi 2 3.3 3.5-5.1 complet um 013 mmoL/L ed SerPl-s 17:35 Cnc Chlorid 102 98-107 complet e 013 mmoL/L ed SerPl-s 17:35 Cnc CO2 28 21.0-32 complet SerPl-s 013 mmoL/L .0 ed Cnc 17:35 Calcium 8.3 8.5-10. complet 013 mg/dL 1 ed SerPl-m 17:35 Cnc Prot 7.0 6.4-8.2 complet SerPl-m 013 gm/dL ed Cnc 17:35 Albumin 3.8 3.4-5.0 complet 013 gm/dL ed SerPl-m 17:35 Cnc Globuli 2 3.2 1.3-3.2 complet n 013 gm/dL ed Ser-mCn 17:35 c Albumin 2 1.2 UNK 1.1-1.8 complet /Glob 013 ed SerPl-m 17:35 Rto Bilirub 0.1 0.2-1.0 complet 013 mg/dL ed SerPl-m 17:35 Cnc AST 02-14- 17 U/L 15-37 complet SerPl-c 013 ed Cnc 17:35 ALT 02-14-2 48 U/L 30-65 complet SerPl-c 013 ed Cnc 17:35 ALP 02-14-2 84 U/L 50-136 complet SerPl-c 013 ed Cnc 17:35 CBC with AUTO DIFF (02-14-2013 17:35) WBC # -27-2 9.7 4.8-10. complet Bld 013 K/MM3 8 ed Auto 17:35 RBC # 02-14-2 3.89 4.2-5.4 complet Bld 013 M/mm3 ed Auto 17:35 Hgb 02-14-2 12.0 12.2-16 complet Bld-mCn 013 g/dL .2 ed c 17:35 Hct Fr 02-14-2 35.2 % 37.0-47 complet Bld 013 .0 ed 17:35 MCV RBC 02-14-2 90.3 fl 82.2-97 complet 013 .8 ed 17:35 MCH RBC 02-14-2 30.9 pg 27-31.2 complet Qn 013 ed Auto 17:35 MEAN 02-14-2 34.2 31.8-35 complet CORPUSC 013 g/dl .4 ed ULAR 17:35 HGB CONC RDW RBC 02-14-2 13.0 % 11.5-17 complet Auto 013 .5 ed 17:35 Platele 02-14-2 270 142-424 complet t Bld 013 K/mm3 ed Ql 17:35 Manual MEAN 7.6 fl 7.4-10. complet PLATELE 013 4 ed T 17:35 VOLUME Granulo 02-14-2 57.9 % 37.0-80 complet cytes 013 .0 ed Fr Bld 17:35 Auto LYMPH % 02-14-2 32.4 % 10-50.0 complet 013 ed 17:35 Monocyt 05--2 4.4 % 1.7-9.3 complet es Fr 013 ed Bld 17:35 Auto Eosinop 05-27-2 4.8 % 0.1-12. complet hil Fr 013 0 ed Bld 17:35 Auto Basophi -27-2 0.5 % 0.1-2.0 complet ls Fr 013 [...] Bld 17:35 Auto URINALYSIS/COMPLETE (02-14-2013 17:35) URINE 27-2 YELLOW YELLOW complet COLOR 013 ed 17:35 [...] 013 E ed ESTERAS 17:35 E URINE 05--2 OCC O complet WBC 013 wbc/hpf ed 17:35 URINE 05-27-2 5-10 0-5 complet SQUAMOU 013 #/hpf ed S CELLS 17:35 URINE 05-27-2 2+ O complet BACTERI 013 ed A 17:35 Encounters Encounter Start End Date Code Location Performer Type Date Emergency AUGUST Ruiz MD (ER) 3 16:45 3 18:38 [facility] Emergency AUGUST Ruiz MD (ER) 3 12:50 3 19:52 [facility] Emergency AUGUST Millard MD (ER) 3 17:15 3 19:13 [facility]
--- OUTSIDE RECORDS SUMMARY | 2017-07-31 16:50 | External Medical Summary Rpt | CCD ---
Demographics Home Phone Preferred Language Scottish Marital Status Unknown Sikhism Affiliation Unknown Race Unknown Ethnic Group Unknown Author Author , KATHI ARMENTA Address Unknown Phone [email or web address] K[employer] Immunization Name Date Rout CVX Reac Dose [...]
--- OUTSIDE RECORDS SUMMARY | 2017-07-31 16:50 | External Medical Summary Rpt | CCD ---
Author Author , KATHI ARMENTA Address Unknown Phone [email or web address] Care Team Providers Care Security Lead Name Role Phone Muriel Ruiz MD, Unavailable Unavailable Muriel Ruiz MD Purpose Continuity of Care Document - 02-14-2013 through 2016 Problems Code Diagnosis DOS Provider Status 305.1 305.1 05-23-2013 Piyush TOBACCO USE [facility] 401.9 401.9 05-23-2013 Piyush HYPERTENSIO [facility] N NOS Hospital 493.90 493.90 05-23-2013 Piyush ASTHMA, [facility] UNSPECIFIED Hospital 780.39 780.39 05-23-2013 [place] OTHER [facility] CONVULSIONS Hospital 786.59 786.59 05-23-2013 Piyush CHEST PAIN [facility] 847.0 847.0 02-21-2013 Piyush SPRAIN OF [facility] NECK [facility] 920 920 02-21-2013 Piyush CONTUSION [facility] FACE/SCALP/ Hospital NCK E849.0 E849.0 02-21-2013 Piyush ACCIDENT IN [facility] E884.2 E884.2 FALL 02-21-2013 Piyush FROM [facility] E87.1 HYPO-OSMOLA LITY AND HYPONATREMI A E87.6 HYPOKALEMIA F23 BRIEF PSYCHOTIC DISORDER F25.9 Schizoaffec tive disorder, unspecified F29 UNSP PSYCHOSIS NOT DUE TO A SUBSTANCE OR KNOWN PHYSIOL COND F41.1 GENERALIZED ANXIETY DISORDER F44.5 CONVERSION DISORDER WITH SEIZURES OR CONVULSIONS G40.909 EPILEPSY, UNSP, NOT INTRACTABLE , WITHOUT STATUS EPILEPTICUS H00.025 HORDEOLUM INTERNUM LEFT LOWER EYELID H05.012 CELLULITIS OF LEFT ORBIT [id number] J01.90 ACUTE SINUSITIS, UNSPECIFIED J20.9 ACUTE BRONCHITIS, [...] Severity SULFA (sulfonamide) S-DIFF. BREATHING Severe Aspirin Z-OETXWS-OXNL/THROAT Severe Ibuprofen I-BVNGIY-HWKH/THROAT Severe Medications Na ND Rx Da Fi [...] SQUARE METERS Comment: If this patient is -Guamanian, then multiply the Comment: result by 1.210. [...] Ruiz MD (ER) 3 16:45 3 18:38 [facility] Emergency AUGUST Ruiz MD (ER) 3 12:50 3 19:52 [facility] Emergency AUGUST Millard MD (ER) 3 17:15 3 19:13 [facility]
[2017-07-31 16:58] LABS: HEMOGLOBIN 12.7 g/dL (12.2-16.2); LYMPH # 3.2 K/mm3 (0.7-4.5); LYMPH % 29.6 % (10-50.0)
--- NOTE | 2017-07-31 17:35 | RADIOLOGY REPORT PS360 ---
CT HEAD W/O CONTRAST HISTORY: Seizures SEIZURE DISORDER ORDERING PHYSICIAN: Santa Gant MD PATIENT AGE: 52 years COMPARISON: 04/24/2017 TECHNIQUE: Axial images obtained without contrast. Brain and bone windows reviewed. FINDINGS: No midline shift, mass effect, intracranial hemorrhage, hydrocephalus, or extra-axial fluid collection is evident. The calvarium has an unremarkable appearance. Small amount fluid is present in the right mastoid sinus.. Postsurgical changes are present of the paranasal sinuses with opacification of the mass axillary sinuses and moderate opacification of the ethmoid air cells with severe leftward nasal septal deviation. IMPRESSION: 1. No acute intracranial findings. 2. Chronic sinusitis with postsurgical change.
[2017-07-31 19:00] VITALS: BP 188/105
== END 2017-07-31 19:03 | disposition home or self-care (01) ==
LOC: ER 16:20
PROVIDERS: General Practice
DX: R56.9 Unspecified convulsions (principal); F54 Psychological and behavioral factors associated with disorders or diseases classified elsewhere; F20.9 Schizophrenia, unspecified; I10 Essential (primary) hypertension; I50.9 Heart failure, unspecified; E11.9 Type 2 diabetes mellitus without complications; Z88.2 Allergy status to sulfonamides; Z88.6 Allergy status to analgesic agent; Z79.899 Other long term (current) drug therapy

== ENCOUNTER 2017-08-03 13:04 | Emergency (ER) | payer MEDICAID ==
[~2017-08-03] VITALS: Ht 160 cm; Wt 99.8 kg
--- OUTSIDE RECORDS SUMMARY | 2017-08-03 13:12 | External Medical Summary Rpt | CCD ---
Author Author , KATHI ARMENTA Address Unknown Phone [email or web address] Care Team Providers Care Stoner Out Name Role Phone Muriel Ruiz MD, Unavailable Unavailable Muriel Ruiz MD Purpose Continuity of Care Document - 02-14-2013 through 2016 Problems Code Diagnosis DOS Provider Status E87.1 Hypo-osmola 06-10-2017 lity and hyponatremi a F20.9 Schizophren 06-10-2017 ia, unspecified R41.82 Altered 06-10-2017 mental status, unspecified R44.0 Auditory 06-10-2017 hallucinati ons R44.1 Visual 06-10-2017 hallucinati ons Z79.899 Other long 06-10-2017 term (current) drug therapy 305.1 305.1 05-23-2013 [place] TOBACCO USE [facility] 401.9 401.9 05-23-2013 Piyush HYPERTENSIO [facility] N NOS Hospital 493.90 493.90 05-23-2013 Piyush ASTHMA, [facility] UNSPECIFIED Hospital 780.39 780.39 05-23-2013 [place] OTHER [facility] CONVULSIONS Hospital 786.59 786.59 05-23-2013 Piyush CHEST PAIN [facility] 847.0 847.0 02-21-2013 Piyush SPRAIN OF [facility] NECK [facility] 920 920 02-21-2013 Piyush CONTUSION [facility] FACE/SCALP/ Hospital NCK E849.0 E849.0 02-21-2013 Piyush ACCIDENT IN [facility] E884.2 E884.2 FALL 02-21-2013 Piyush FROM [facility] E87.6 HYPOKALEMIA F23 Brief psychotic disorder F25.9 Schizoaffec tive disorder, unspecified F29 UNSP PSYCHOSIS NOT DUE TO A SUBSTANCE OR KNOWN PHYSIOL COND F41.1 GENERALIZED ANXIETY DISORDER F44.5 CONVERSION DISORDER WITH SEIZURES OR CONVULSIONS G40.909 EPILEPSY, UNSP, NOT INTRACTABLE , WITHOUT STATUS EPILEPTICUS G40.919 EPILEPSY, UNSP, INTRACTABLE , WITHOUT STATUS EPILEPTICUS H00.025 HORDEOLUM INTERNUM LEFT LOWER EYELID H05.012 CELLULITIS OF LEFT ORBIT [id number] J01.90 ACUTE SINUSITIS, UNSPECIFIED J20.9 ACUTE BRONCHITIS, [...] Severity SULFA (sulfonamide) S-DIFF. BREATHING Severe Aspirin S-AUEZKJ-QKBG/THROAT Severe Ibuprofen D-KCWUMJ-UHAQ/THROAT Severe Medications Na ND Rx Da Fi [...] retati t Range on Comprehensive metabolic panel (07-31-2017 16:45) Serum = 1.1 1.1-1.8 complet or 017 ed plasma 16:45 albumin /globul in mass ra Serum = 3.9 3.4-5.0 complet or 017 gm/dL ed plasma 16:45 albumin measure ment (mas Serum = 97 46-116 complet or 017 U/L ed plasma 16:45 alkalin e phospha tase darren Serum = 0.2 0.2-1.0 complet or 017 mg/dL ed plasma 16:45 total bilirub in measure m Serum = 7 7-18 complet or 017 mg/dL ed plasma 16:45 urea nitroge n measure men Serum = 9.2 8.5-10. complet or 017 mg/dL 1 ed plasma 16:45 calcium measure ment (mas Serum = 100 98-107 complet or 017 mmoL/L ed plasma 16:45 chlorid e measure ment (mo Carbon = 28 21.0-32 complet dioxide 017 mmoL/L .0 ed 16:45 measure ment Serum = 0.8 0.55-1. complet or 017 mg/dL 02 ed plasma 16:45 creatin ine measure ment ( Estimat = 131 50-200 complet ion of 017 ML/MIN ed creatin 16:45 ine renal clearan ce Estimat = 76 59- complet ed 017 ML/MIN ed glomeru 16:45 lar filtrat ion rate (GF Comment: REFERENCE RANGE: >60 ML/MIN/1.73 SQUARE METERS Comment: If this patient is -Sri Lankan, then multiply the Comment: result by 1.210. Serum = 3.6 1.3-3.2 complet globuli 017 gm/dL ed n 16:45 measure ment (mass/v olume) Serum = 94 74-106 complet or 017 mg/dL ed plasma 16:45 glucose measure ment (mas Serum = 3.6 3.5-5.1 complet potassi 017 mmoL/L ed um 16:45 measure ment Serum = 135 136-145 complet sodium 017 mmoL/L ed measure 16:45 ment Serum = 9 U/L 15-37 complet or 017 ed plasma 16:45 asparta te aminotr ansfera ALT = 30 12-78 complet (SGPT) 017 U/L ed ser/buck 16:45 s Protein = 7.5 6.4-8.2 complet total 017 gm/dL ed ser/buck 16:45 s Cardiac enzymes (07-31-2017 16:45) Serum = 1.3 0-4.0 complet or 017 U/L ed plasma 16:45 creatin e kinase MB (CK-M Serum = 0.9 0.0-3.6 complet or 017 ng/mL ed plasma 16:45 creatin e kinase MB measu Serum = 71 26-192 complet or 017 U/L ed plasma 16:45 creatin e kinase measure m Serum < 0.02 0.00-0. complet or 017 ng/mL 06 ed plasma 16:45 troponi n i.cardi ac measu CBC w auto diff (07-31-2017 16:45) Blood = 10.7 4.8-10. complet leukocy 017 K/MM3 8 ed dl 16:45 count (number /volume ) Automat = 13.4 11.5-17 complet ed 017 % .5 ed erythro 16:45 cyte distrib ution width Red = 4.35 4.2-5.4 complet blood 017 M/mm3 ed cell 16:45 count Blood = 312 142-424 complet platele 017 K/mm3 ed t count 16:45 Automat = 7.5 7.4-10. complet ed 017 fl 4 ed blood 16:45 platele t mean volume darren [place] % = 3.8 % 1.7-9.3 complet 017 ed 16:45 Absolut = 0.4 0.1-1.0 complet e 017 K/mm3 ed monocyt 16:45 e count Automat = 90.0 82.2-97 complet ed 017 fl .8 ed erythro 16:45 cyte mean corpusc ular v Automat = 32.6 31.8-35 complet ed 017 g/dl .4 ed erythro 16:45 cyte mean corpusc ular h Mean = 29.3 27-31.2 complet corpusc 017 pg ed ular 16:45 hemoglo bin (MCH) determ Lymphoc = 29.6 10-50.0 complet yte 017 % ed count, 16:45 blood, automat ed Absolut = 3.2 0.7-4.5 complet e 017 K/mm3 ed lymphoc 16:45 yte count Blood = 12.7 12.2-16 complet hemoglo 017 g/dL .2 ed bin 16:45 measure ment (mass/v olum Blood = 39.1 37.0-47 complet hematoc 017 % .0 ed rit 16:45 (volume fractio n) Granulo = 63.5 37.0-80 complet cyte 017 % .0 ed percent 16:45 age Blood = 6.8 1.8-7.8 complet granulo 017 K/mm3 ed cytes 16:45 automat ed count (numb Automat = 2.7 % 0.1-12. complet ed 017 0 ed blood 16:45 eosinop hils/10 0 leukocy t Automat = 0.3 0.0-0.4 complet ed 017 K/mm3 ed blood 16:45 eosinop hil count Baso % = 0.4 % 0.1-2.0 complet 017 ed 16:45 Automat = 0.0 0-0.2 complet ed 017 K/MM3 ed blood 16:45 basophi l count (count/ vo Comprehensive metabolic panel (07-20-2017 11:59) Serum 10--2 = 4.5 3.5-5.1 complet potassi 017 mmoL/L ed um 11:59 measure ment Serum 07-20-2 = 86 74-106 complet or 017 mg/dL ed plasma 11:59 glucose measure ment (mas Serum 07-20-2 = 3.3 1.3-3.2 complet globuli 017 gm/dL ed n 11:59 measure ment (mass/v olume) Estimat 07-20-2 = 88 59- complet ed 017 ML/MIN ed glomeru 11:59 lar filtrat ion rate (GF Comment: REFERENCE RANGE: >60 ML/MIN/1.73 SQUARE METERS Comment: If this patient is -Sri Lankan, then multiply the Comment: result by 1.210. Serum 07-20-2 = 0.7 0.55-1. complet or 017 mg/dL 02 ed plasma 11:59 creatin ine measure ment ( Carbon 07-20-2 = 28 21.0-32 complet dioxide 017 mmoL/L .0 ed 11:59 measure ment Serum 07-20-2 = 103 98-107 complet or 017 mmoL/L ed plasma 11:59 chlorid e measure ment (mo Serum 07-20-2 = 9.1 8.5-10. complet or 017 mg/dL 1 ed plasma 11:59 calcium measure ment (mas Serum 07-20-2 = 7 7-18 complet or 017 mg/dL ed plasma 11:59 urea nitroge n measure men Serum 07-20-2 = 0.2 0.2-1.0 complet or 017 mg/dL ed plasma 11:59 total bilirub in measure m Serum 07-20-2 = 95 46-116 complet or 017 U/L ed plasma 11:59 alkalin e phospha tase darren Serum 07-20-2 = 4.0 3.4-5.0 complet or 017 gm/dL ed plasma 11:59 albumin measure ment (mas Serum 07-20-2 = 1.2 1.1-1.8 complet or 017 ed plasma 11:59 albumin /globul in mass ra Protein 07-20-2 = 7.3 6.4-8.2 complet total 017 gm/dL ed ser/buck 11:59 s ALT 07-20-2 = 28 12-78 complet (SGPT) 017 U/L ed ser/buck 11:59 s Serum 07-20-2 = 13 15-37 complet or 017 U/L ed plasma 11:59 asparta te aminotr ansfera Serum 07-20-2 = 139 136-145 complet sodium 017 mmoL/L ed measure 11:59 ment Phenytoin SerPl-mCnc (06-04-2017 12:19) Phenyto < 0.8 [...] SerPl-s 013 mmoL/L ed Cnc 17:35 Potassi 3.3 3.5-5.1 complet um 013 mmoL/L ed [...] 013 gm/dL ed SerPl-m 17:35 Cnc Globuli 3.2 1.3-3.2 complet n 013 gm/dL ed Ser-mCn 17:35 c Albumin 1.2 UNK 1.1-1.8 complet /Glob 013 ed SerPl-m 17:35 Rto Bilirub 0.1 0.2-1.0 complet 013 mg/dL ed SerPl-m 17:35 Cnc AST 17 U/L 15-37 complet SerPl-c 013 ed Cnc 17:35 ALT 48 U/L 30-65 complet SerPl-c 013 ed Cnc 17:35 ALP 84 U/L 50-136 complet SerPl-c 013 ed Cnc 17:35 CBC with AUTO DIFF (02-14-2013 17:35) WBC # 02-14-2 9.7 4.8-10. complet Bld 013 K/MM3 8 ed Auto 17:35 RBC # 02-14-2 3.89 4.2-5.4 complet Bld 013 M/mm3 ed Auto 17:35 Hgb 02-14-2 12.0 12.2-16 complet Bld-mCn 013 g/dL .2 ed c 17:35 Hct Fr 02-14-2 35.2 % 37.0-47 complet Bld 013 .0 ed 17:35 MCV RBC 02-14-2 90.3 fl 82.2-97 complet 013 .8 ed 17:35 MCH RBC 2 30.9 pg 27-31.2 complet Qn 013 ed Auto 17:35 MEAN 2 34.2 31.8-35 complet CORPUSC 013 g/dl .4 ed ULAR 17:35 HGB CONC RDW RBC 02-14-2 13.0 % 11.5-17 complet Auto 013 .5 ed 17:35 Platele 02-14-2 270 142-424 complet t Bld 013 K/mm3 ed Ql 17:35 Manual MEAN 2 7.6 fl 7.4-10. complet PLATELE 013 4 ed T 17:35 VOLUME Granulo 02-14-2 57.9 % 37.0-80 complet cytes 013 .0 ed Fr Bld 17:35 Auto LYMPH % --2 32.4 % 10-50.0 complet 013 ed 17:35 [...] Bld 17:35 Auto URINALYSIS/COMPLETE (02-14-2013 17:35) URINE 02-14-2 YELLOW YELLOW complet COLOR 013 ed 17:35 URINE 27-2 SL CLEAR complet APPEARA 013 CLOUDY ed NCE 17:35 URINE 05-27-2 NEGATIV NEG complet GLUCOSE 013 E ed - 17:35 DIPSTIC K URINE 0527-2 NEGATIV NEG complet BILIRUB 013 E ed IN - 17:35 DIPSTIC K URINE 0527-2 NEGATIV NEG complet KETONE 013 E mg/dL ed 17:35 URINE 05-27-2 1.015 1.005-1 complet SPECIFI 013 UNK .030 ed C 17:35 GRAVITY URINE 02-14-2 NEGATIV NEG complet BLOOD 013 E ed 17:35 URINE 05-2 6.0 UNK 5.0-8.5 complet PH 013 ed 17:35 URINE 27-2 NEGATIV NEG complet PROTEIN 013 E mg/dL ed - 17:35 DIPSTIC K URINE 05-2 0.2 NEG complet UROBILI 013 E.U./dL ed NOGEN - 17:35 DIPSTIC K URINE 02-14-2 NEGATIV NEG complet NITRATE 013 E ed - 17:35 DIPSTIC K URINE 05-27-2 NEGATIV NEG complet LEUK 013 E ed ESTERAS 17:35 E URINE 02-14-2 OCC O complet WBC 013 wbc/hpf ed 17:35 URINE 05-27-2 5-10 0-5 complet SQUAMOU 013 #/hpf ed S CELLS 17:35 URINE 02-14-2 2+ O complet BACTERI 013 ed A 17:35 Encounters Encounter Start End Date Code Location Performer Type Date Emergency AUGUST Ruiz MD (ER) 3 16:45 3 18:38 [facility] Emergency AUGUST Ruiz MD (ER) 3 12:50 3 19:52 [facility] Emergency AUGUST Millard MD (ER) 3 17:15 3 19:13 [facility]
--- OUTSIDE RECORDS SUMMARY | 2017-08-03 13:12 | External Medical Summary Rpt | CCD ---
Author Author , KATHI ARMENTA Address Unknown Phone Care Team Providers Care Marine Cargo Surveyor Name Role Phone Muriel Ruiz MD, Unavailable [...] term (current) drug therapy 305.1 305.1 05-23-2013 [place] TOBACCO USE [facility] 401.9 401.9 05-23-2013 [place]iy[place] HYPERTENSIO [facility] N NOS Hospital 493.90 493.90 05-23-2013 Piyush ASTHMA, [facility] UNSPECIFIED Hospital 780.39 780.39 05-23-2013 [place] OTHER [facility] CONVULSIONS Hospital 786.59 786.59 05-23-2013 Piyush CHEST PAIN [facility] Hospital 847.0 847.0 02-21-2013 Piyush SPRAIN OF [facility] NECK [facility] [phone] 02-21-2013 Piyush CONTUSION [facility] FACE/SCALP/ Hospital NCK E849.0 E849.0 02-21-2013 Piyush ACCIDENT IN [facility] E884.2 E884.2 FALL 02-21-2013 Piyush FROM [facility] E87.6 HYPOKALEMIA F23 Brief psychotic [...] LOWER EYELID H05.012 CELLULITIS OF LEFT ORBIT [id number] J01.90 ACUTE SINUSITIS, UNSPECIFIED J20.9 ACUTE BRONCHITIS, [...] Severity SULFA (sulfonamide) S-DIFF. BREATHING Severe Aspirin I-[id number]/THROAT Severe Ibuprofen X-[id number]/THROAT Severe Medications Na ND Rx Da Fi [...] SQUARE METERS Comment: If this patient is -Afghan, then multiply the Comment: result by 1.210. [...] blood 16:45 platele t mean volume darren Brown % = 3.8 % 1.7-9.3 complet 017 [...] SQUARE METERS Comment: If this patient is -Afghan, then multiply the Comment: result by 1.210. [...] Ruiz MD (ER) 3 16:45 3 18:38 [facility] AUGUST Ruiz MD (ER) 3 12:50 3 19:52 [facility] AUGUST Millard MD (ER) 3 17:15 3 19:13 [facility]
--- OUTSIDE RECORDS SUMMARY | 2017-08-03 13:13 | External Medical Summary Rpt | CCD ---
Demographics Home Phone Preferred Language Venezuelan Marital Status Unknown Oriental Orthodox Affiliation Unknown Race Unknown Ethnic Group Unknown Author Author , KATHI ARMENTA Address Unknown Phone [email or web address] [employer] Immunization Name Date Rout CVX Reac Dose Comm Prov Is Faci e tion ent ider Refu lity Give sed n TST- 04-0 Intr 96 999 Hist IN No IN PPD 1-20 ader oric intr 14 mal al ader Info mal rmat ion - Sour ce Unsp ecif ied PPV2 02-2 Intr 33 999 Hist JUAN CARLOS No JUAN CARLOS 3 3-20 amus oric TTHO TTHO 14 cula al MAS MAS r Info rmat ion - Sour ce Unsp ecif ied
--- OUTSIDE RECORDS SUMMARY | 2017-08-03 13:13 | External Medical Summary Rpt | CCD ---
Demographics Home Phone Preferred Language Bermudian Marital Status Unknown Mandaeism Affiliation Unknown Race Unknown Ethnic Group Unknown Author Author , KATHI ARMENTA Address Unknown Phone [email or web address] Immunization Name Date Rout CVX Reac Dose Comm Prov Is Faci e tion ent ider Refu lity Give sed n TST- 04-0 Intr 96 999 Hist [place] No [place] PPD 1-20 ader oric intr 14 mal al ader Info mal rmat ion - Sour ce Unsp ecif ied PPV2 02-2 Intr 33 999 Hist JUAN CARLOS No JUAN CARLOS 3 3-20 amus oric TTHO TTHO 14 cula al MAS MAS r Info rmat ion - Sour ce Unsp ecif ied
--- NOTE | 2017-08-03 13:24 | Emergency Room Report ---
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 N Clinical Suspician of Infection? N Mental Status: 1 - Regular (Normal Baseline) Sepsis Risk:Low Sepsis Risk Have you (or family members/close friends) recently traveled outside the [place]? N If Yes, where/when: Have you had exposure to infectious disease within the past month? TB? Other? Specify: Source patient, RN notes reviewed, family, RN/MD Exam Limitations no limitations Comment Hakvsasfxk-jxzo-zyy feel patient brought in by EMS from a local assisted care living center, after having a grand mal seizure. Patient has been seen here multiple times for same complaint. She is recently under the care of Dr neri for her seizures, taking Keppra 1000 mg 2x/day. ALLERGIES Coded Allergies: Sulfa (Sulfonamide Antibiotics) (05/26/17) aspirin (05/26/17) ibuprofen (From MOTRIN) (05/26/17) Home Medications Active Scripts GENTAMICIN SULFATE (GENTAMICIN 0.3% OPHTH SOLN) 1 DROP OP Q4H #1 BOT Prov: 05/23/17 Metoprolol Tartrate (Metoprolol 25MG) 50 MG PO BID 28 Days Prov: 05/28/17 Reported Medications Calcium Carbonate (Tums Ultra) 400-800 MG PO PRN PRN INDIGESTION Guaifenesin (Robafen) 10 ML PO Q4HP PRN COUGH SERTRALINE HYDROCHLORIDE (Zoloft 100MG) 200 MG PO QAM Hydrochlorothiazide W/Triamter (Triamterene-Hctz 37.5-25 MG Tb) 1 CAP PO DAILY #30 TAB BENZTROPINE MESYLATE (COGENTIN 1MG TAB) 1 MG PO TID GABAPENTIN (Gabapentin) 1,200 MG PO TID METFORMIN HCL (Metformin) 500 MG PO BID Omeprazole 20 MG PO DAILY Risperidone (Risperdal 1 Mg Tab) 4 MG PO BID Levetiracetam (Keppra) 1,000 MG PO Q12 Gemfibrozil (GEMFIBROZIL 600MG) 600 MG PO BID Olanzapine (Olanzapine 5MG Tab) 5 MG PO QHS Buspirone Hcl (Buspirone 10MG) 10 MG PO BID Trazodone Hcl (Trazodone HCl) 50 MG PO QHS AMOXICILLIN/POTASSIUM CLAV (Amoxicillin-Clav ER 1,000-62.5) 1 TAB PO BID Multivitamin (Multivitamins) 1 TAB PO DAILY Loperamide Hcl (Loperamide) 2 MG PO Q3HP PRN DIARRHEA Acetaminophen (Acetaminophen Tab) 650 MG PO Q8HP PRN PAIN/FEVER Magnesium Hydroxide (Milk Of Magnesia) 30 ML PO DAILYP PRN CONSTIPATION Sucralfate (Carafate Tab) 1 GM PO BID Clonazepam (Klonopin 0.5MG) 0.5 MG PO BID Fenofibrate 54 MG PO DAILY Montelukast Sodium (Singulair 10MG) 10 MG PO QHS OMEGA-3 ACID ETHYL ESTERS (Lovaza) 1 GM PO BID Topiramate 200 MG PO BID #60 CHOLECALCIFEROL (VITAMIN D3) (Vitamin D3) 5,000 UNITS PO DAILY BUDESONIDE/FORMOTEROL FUMARATE (Symbicort 160-4.5 Mcg Inhaler) 1 PUFF IH BID Albuterol Sulfate (Proair Hfa) 1 PUFF IH Q6HP PRN ASTHMA Fluticasone Propionate (Flonase 50 Mcg Nasal [place]) 1 SPRAY NA DAILY FLUTICASONE/VILANTEROL (Breo Ellipta 100-25 Mcg INH) 1 POW IH DAILY Oxcarbazepine 600 MG PO BID History Medical History General CAD? No Angina: No [place]: No Hypertension? Yes Hyperlipidemia? Yes CHF? Yes DVT? No PE? No COPD? No Asthma? Yes Anemia? No GERD? No Gastric ulcers? No GI Bleed? No Hernia? No Thyroid Problems? No Hypothyroidism? No CVA? No Seizures? Yes Diabetes? Yes Insulin Dependent: No Insulin Pump: No Home FSBS? No Renal Insuffiency? No End Stage Renal Disease? No UTI? No Stones? No BPH? No GB Disease: No Nephritic Syndrome? No Asplenia? No Hepatitis? No Sickle Cell Disease? No Arthritis? No Migraines? No Cataracts? No Glaucoma? No MRSA? No HIV? No TB? No Anxiety? No Depression? No Cancer? Yes Site: BREAST More? 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 Family History Family Hx Diabetes No CAD No Hypertension No Hyperlipidemia No Cancer No TB No Social History Smoking Hx Smoker: Never Smoker Tobacco: No Packs/day 1 1/2 - 2 Packs Alcohol Alcohol: No Review of Systems All Other Systems Reviewed and Negative Psychiatric/Neurological seizure Physical Exam Vital Signs Vital Signs Date Time Temp Pulse Resp B/P Pulse O2 O2 Flow FiO2 Ox Delivery Rate 08/03 1433 98.7 80 12 166/94 97 08/03 1305 98.7 80 12 166/94 97 General Appearance normal appearance, WD/WN, no apparent distress Eye Exam - bilateral eye normal exam, bilateral eye PERRL, bilateral eye EOMI Neck normal inspection, non-tender, supple, full range of motion Respiratory Status Yes: trachea midline, chest symmetrical, non tender chest. No: respiratory distress. Lung Sounds bilateral: normal breath sounds, lungs clear. 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 No Comment 1415-case d/w dr neri, who recommended increasing her Keppra from 1000 mg 2X/ Dday to keppra 1,00mg in am, and 1,500mg in pm. Dr Neri also requested of the patient to see dr. Hernandez for a video EEG, on the information provided to patient. Results/Orders Laboratory Tests 08/03/17 1418: Levetiracetam Pending Orders Procedure Date/time Status LEVETIRACETAM (KEPPRA) 08/03 1347 Active Departure Departure Time of Disposition 1425 Disposition DC Home or Self Care(routine) Clinical Impression Primary Impression: Seizure Condition STABLE Referrals Kelli BOGGS,Nadir Baltazar (Family) NARGIS NERI Patient Instructions DI for Seizure Disorder -- Adult Additional Instructions Please increase her Keppra from 1000mg twice a day to 1000mg the morning and 1500mg that that time. Follow up with Dr Nargis Neri as scheduled, and call Lobo Hernandez's office today in order to scheduled the video EEG, as arranged by Dr. Neri. Please find attached prescription return by Dr. Nargis Neri, fro Keppra 1,000mg in am, 1,500mg in pm. Discharge Counseling Counseled pt/family regarding diagnosis, test results, medications/RX, home care, follow up needs Comment Please increase her Keppra from 1000mg twice a day to 1000mg the morning and 1500mg that that time. Follow up with Dr Nargis Neri as scheduled, and call Lobo Hernandez's office today in order to scheduled the video EEG, as arranged by Dr. Neri. ED Critical Care Critical Care No at 1024
[2017-08-03 14:33] VITALS: BP 166/94
== END 2017-08-03 14:33 | disposition home or self-care (01) ==
LOC: ER 13:04
DX: G40.909 Epilepsy, unspecified, not intractable, without status epilepticus (principal); E78.5 Hyperlipidemia, unspecified; I11.0 Hypertensive heart disease with heart failure; I50.9 Heart failure, unspecified; J45.909 Unspecified asthma, uncomplicated; E11.9 Type 2 diabetes mellitus without complications; Z85.3 Personal history of malignant neoplasm of breast; F20.9 Schizophrenia, unspecified; Z88.6 Allergy status to analgesic agent; Z88.2 Allergy status to sulfonamides; Z88.8 Allergy status to other drugs, medicaments and biological substances; Z79.84 Long term (current) use of oral hypoglycemic drugs; Z79.891 Long term (current) use of opiate analgesic; Z79.899 Other long term (current) drug therapy

== ENCOUNTER → 2017-08-25 | Emergency (ER) | payer MEDICAID ==
[~2017-08-25] VITALS: Ht 160 cm; Wt 112.5 kg
--- OUTSIDE RECORDS SUMMARY | 2017-08-25 16:02 | External Medical Summary Rpt | CCD ---
Demographics Home Phone Preferred Language American Marital Status Unknown Druze Affiliation Unknown Race Unknown Ethnic Group Unknown Author Author , KATHI ARMENTA Address Unknown Phone [email or web address] Immunization Name Date Rout CVX Reac Dose Comm Prov Is Faci e tion ent ider Refu lity Give sed n TST- 04-0 Intr 96 999 Hist [place] No [place] PPD 1-20 ader oric intr 14 mal al ader Info mal rmat ion - Sour ce Unsp ecif ied PPV2 02-2 Intr 33 999 Hist JUAN CARLOS No JUAN CARLOS 3 3-20 amus oric TTHO TTHO 14 cula al MAS MAS r Info rmat ion - Sour ce Unsp ecif ied
--- OUTSIDE RECORDS SUMMARY | 2017-08-25 16:02 | External Medical Summary Rpt | CCD ---
Demographics Home Phone Preferred Language Tristanian Marital Status Unknown Episcopalian Affiliation Unknown Race Unknown Ethnic Group Unknown Author Author , KATHI ARMENTA Address Unknown Phone [email or web address] Immunization Name Date Rout CVX Reac Dose Comm Prov Is Faci e tion ent ider Refu lity Give sed n TST- 04-0 Intr 96 999 Hist [place] No [place] PPD 1-20 ader oric intr 14 mal al ader Info mal rmat ion - Sour ce Unsp ecif ied PPV2 02-2 Intr 33 999 Hist JUAN CARLOS No JUAN CARLOS 3 3-20 amus oric TTHO TTHO 14 cula al MAS MAS r Info rmat ion - Sour ce Unsp ecif ied
--- OUTSIDE RECORDS SUMMARY | 2017-08-25 16:02 | External Medical Summary Rpt | CCD ---
Author Author , KATHI ARMENTA Address Unknown Phone [email or web address] Care Team Providers Care Technician Support Engineer Name Role Phone Muriel Ruiz MD, Unavailable [...] term (current) drug therapy 305.1 305.1 05-23-2013 [place] TOBACCO USE [facility] 401.9 401.9 05-23-2013 [place] HYPERTENSIO [facility] N NOS Hospital 493.90 493.90 05-23-2013 [facility] 780.39 780.39 05-23-2013 [place] OTHER [facility] CONVULSIONS Hospital 786.59 786.59 05-23-2013 Piyush CHEST PAIN [facility] Hospital 847.0 847.0 02-21-2013 Piyush SPRAIN OF [facility] NECK [facility] 920 920 02-21-2013 Piyush CONTUSION [facility] FACE/SCALP/ Hospital NCK E849.0 E849.0 02-21-2013 Piyush ACCIDENT IN [facility] E884.2 E884.2 FALL 02-21-2013 Piyush FROM [facility] E87.6 HYPOKALEMIA F23 BRIEF PSYCHOTIC DISORDER F25.9 Schizoaffec tive disorder, unspecified F29 UNSP PSYCHOSIS NOT DUE TO A SUBSTANCE OR KNOWN PHYSIOL COND F41.1 GENERALIZED ANXIETY DISORDER F44.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 BREATHING Severe Aspirin K-[id number]-[id number]/THROAT Severe Ibuprofen A-[id number]-EIIN/THROAT Severe Medications Na ND Rx Da Fi [...] Order Detail nces retati t Range on Levetiracetam level (08-03-2017 14:18) Levetir = 14.6 10.0-40 complet acetam 017 ug/mL .0 ed level 14:18 Comment: Performed at: [facility] [place] Comment: [phone], [place] [id number] Comment: [employer] Inspector: Felix Moon MD, Phone: [phone] CBC w auto diff (07-31-2017 16:45) Automat = 0.0 0-0.2 complet ed 017 K/MM3 ed blood 16:45 basophi l count (count/ vo Baso % = 0.4 % 0.1-2.0 complet 017 ed 16:45 Automat = 0.3 0.0-0.4 complet ed 017 K/mm3 ed blood 16:45 eosinop hil count Automat = 2.7 % 0.1-12. complet ed 017 0 ed blood 16:45 eosinop hils/10 0 leukocy t Blood = 6.8 1.8-7.8 complet granulo 017 K/mm3 ed cytes 16:45 automat ed count (numb Granulo = 63.5 37.0-80 complet cyte 017 % .0 ed percent 16:45 age Blood = 39.1 37.0-47 complet hematoc 017 % .0 ed rit 16:45 (volume fractio n) Blood = 12.7 12.2-16 complet hemoglo 017 g/dL .2 ed bin 16:45 measure ment (mass/v olum Absolut = 3.2 0.7-4.5 complet e 017 K/mm3 ed lymphoc 16:45 yte count Lymphoc = 29.6 10-50.0 complet yte 017 % ed count, 16:45 blood, automat ed Mean = 29.3 27-31.2 complet corpusc 017 pg ed ular 16:45 hemoglo bin ([facility]) determ Automat = 32.6 31.8-35 complet ed 017 g/dl .4 ed erythro 16:45 cyte mean corpusc ular h Automat = 90.0 82.2-97 complet ed 017 fl .8 ed erythro 16:45 cyte mean corpusc ular v Absolut = 0.4 0.1-1.0 complet e 017 K/mm3 ed monocyt 16:45 e count Levy % = 3.8 % 1.7-9.3 complet 017 ed 16:45 Automat = 7.5 7.4-10. complet ed 017 fl 4 ed blood 16:45 platele t mean volume darren Blood = 312 142-424 complet platele 017 K/mm3 ed t count 16:45 Red = 4.35 4.2-5.4 complet blood 017 M/mm3 ed cell 16:45 count Automat = 13.4 11.5-17 complet ed 017 % .5 ed erythro 16:45 cyte distrib ution width Blood = 10.7 4.8-10. complet leukocy 017 K/MM3 8 ed dl 16:45 count (number /volume ) Comprehensive metabolic panel (07-31-2017 16:45) Serum = 1.1 1.1-1.8 complet or 017 ed plasma 16:45 albumin /globul in mass ra Protein = 7.5 6.4-8.2 complet total 017 gm/dL ed ser/buck 16:45 s ALT = 30 12-78 complet (SGPT) 017 U/L ed ser/buck 16:45 s Serum = 9 U/L 15-37 complet or 017 ed plasma 16:45 asparta te aminotr ansfera Serum = 135 136-145 complet sodium 017 mmoL/L ed measure 16:45 ment Serum = 3.6 3.5-5.1 complet potassi 017 mmoL/L ed um 16:45 measure ment Serum = 94 74-106 complet or 017 mg/dL ed plasma 16:45 glucose measure ment (mas Serum = 3.6 1.3-3.2 complet globuli 017 gm/dL ed n 16:45 measure ment (mass/v olume) Estimat = 76 59- complet ed 017 ML/MIN ed glomeru 16:45 lar filtrat ion rate (GF Comment: REFERENCE RANGE: >60 ML/MIN/1.73 SQUARE METERS Comment: If this patient is -Venezuelan, then multiply the Comment: result by 1.210. Estimat = 131 50-200 complet ion of 017 ML/MIN ed creatin 16:45 ine renal clearan ce Serum = 0.8 0.55-1. complet or 017 mg/dL 02 ed plasma 16:45 creatin ine measure ment ( Carbon = 28 21.0-32 complet dioxide 017 mmoL/L .0 ed 16:45 measure ment Serum = 100 98-107 complet or 017 mmoL/L ed plasma 16:45 chlorid e measure ment (mo Serum = 9.2 8.5-10. complet or 017 mg/dL 1 ed plasma 16:45 calcium measure ment (mas Serum = 7 7-18 complet or 017 mg/dL ed plasma 16:45 urea nitroge n measure men Serum = 0.2 0.2-1.0 complet or 017 mg/dL ed plasma 16:45 total bilirub in measure m Serum = 97 46-116 complet or 017 U/L ed plasma 16:45 alkalin e phospha tase darren Serum = 3.9 3.4-5.0 complet or 017 gm/dL ed plasma 16:45 albumin measure ment ([facility] Cardiac enzymes (07-31-2017 16:45) Serum < 0.02 0.00-0. complet or 017 ng/mL 06 ed plasma 16:45 troponi n i.cardi ac measu Serum = 71 26-192 complet or 017 U/L ed plasma 16:45 creatin e kinase measure m Serum = 0.9 0.0-3.6 complet or 017 ng/mL ed plasma 16:45 creatin e kinase MB measu Serum = 1.3 0-4.0 complet or 017 U/L ed plasma 16:45 creatin e kinase MB (CK-M Comprehensive metabolic panel (07-20-2017 11:59) Serum = [...] 11:59 total bilirub in measure m Serum 1030-2 = 7 7-18 complet or 017 mg/dL ed plasma 11:59 urea nitroge n measure men Serum 1030-2 = 9.1 8.5-10. complet or 017 mg/dL 1 ed plasma 11:59 calcium measure ment (mas Serum 30-2 = 103 98-107 complet or 017 mmoL/L ed plasma 11:59 chlorid e measure ment (mo Carbon 07-20-2 = 28 21.0-32 complet dioxide 017 mmoL/L .0 ed 11:59 measure ment Serum 30-2 = 0.7 0.55-1. complet or 017 mg/dL 02 ed plasma 11:59 creatin ine measure ment ( Estimat 07-20-2 = 88 59- complet ed 017 ML/MIN ed glomeru 11:59 lar filtrat ion rate (GF Comment: REFERENCE RANGE: >60 ML/MIN/1.73 SQUARE METERS Comment: If this patient is -[place]enezuelan, then multiply the Comment: result by 1.210. Serum 07-20-2 = 3.3 1.3-3.2 complet globuli 017 gm/dL ed n 11:59 measure ment (mass/v olume) Serum 07-20-2 = 86 74-106 complet or 017 mg/dL ed plasma 11:59 glucose measure ment (mas Serum 07-20-2 = 4.5 3.5-5.1 complet potassi 017 mmoL/L ed um 11:59 measure ment Serum 07-20-2 = 139 136-145 complet sodium 017 mmoL/L ed measure 11:59 ment Serum 1030-2 = 13 15-37 complet or 017 U/L ed plasma 11:59 asparta te aminotr ansfera ALT 30-2 = 28 12-78 complet (SGPT) 017 U/L ed ser/buck 11:59 s Protein --2 = 7.3 6.4-8.2 complet total 017 gm/dL ed ser/buck 11:59 s Phenytoin SerPl-mCnc (06-04-2017 12:19) Phenyto < 0.8 10.0-20 complet in 017 ug/mL .0 ed SerPl-m 12:19 Cnc COMPREHENSIVE METABOLIC PANEL (02-14-2013 17:35) Glucose 161 74-106 complet 013 mg/dL ed Bld-mCn 17:35 c BUN 02-14- 14 7-18 complet Bld-mCn 013 mg/dL ed [...] SerPl-m 013 gm/dL ed Cnc 17:35 Albumin 02-14- 3.8 3.4-5.0 complet 013 gm/dL ed SerPl-m [...] with AUTO DIFF (02-14-2013 17:35) WBC # 05-27-2 9.7 4.8-10. complet Bld 013 K/MM3 8 ed Auto 17:35 RBC # 0527-2 3.89 4.2-5.4 complet Bld 013 M/mm3 ed Auto 17:35 Hgb --2 12.0 12.2-16 complet Bld-mCn 013 g/dL .2 [...] complet Auto 013 .5 ed 17:35 Platele --2 270 142-424 complet t Bld 013 K/mm3 ed Ql 17:35 Manual MEAN 02-14-2 7.6 fl 7.4-10. complet PLATELE 013 4 ed T 17:35 VOLUME Granulo 02-14-2 57.9 % 37.0-80 complet cytes 013 .0 ed Fr Bld 17:35 Auto LYMPH % 05-27-2 32.4 % 10-50.0 complet 013 ed 17:35 Monocyt --2 4.4 % 1.7-9.3 complet es Fr 013 ed Bld 17:35 Auto Eosinop -27-2 4.8 % 0.1-12. complet hil Fr 013 [...] Ruiz MD (ER) 3 16:45 3 18:38 [facility] Emergency AUGUST Ruiz MD (ER) 3 12:50 3 19:52 [facility] Emergency AUGUST Millard MD (ER) 3 17:15 3 19:13 [facility] [place]
--- OUTSIDE RECORDS SUMMARY | 2017-08-25 16:02 | External Medical Summary Rpt | CCD ---
Author Author , KATHI ARMENTA Address Unknown Phone [email or web address] Care Team Providers Care Representative Government Relations Name Role Phone Muriel Ruiz MD, Unavailable [...] term (current) drug therapy 305.1 305.1 05-23-2013 [place] TOBACCO USE [facility] 401.9 401.9 05-23-[address] [facility] N NOS Hospital 493.90 493.90 05-23-2013 [facility]39 780.39 05-23-[address] [place] [address] [facility] CONVULSIONS Hospital 786.59 786.59 05-23-2013 Piyush CHEST PAIN [facility] Hospital 847.0 847.0 02-21-[address] [facility] NECK [facility] 920 920 02-21-[address] [facility] FACE/SCALP/ Hospital NCK E849.0 E849.0 02-21-2013 Piyush ACCIDENT IN [facility] E884.2 E884.2 FALL 02-21-2013 Piyush FROM [facility] E87.6 HYPOKALEMIA F23 BRIEF PSYCHOTIC DISORDER F25.9 Schizoaffec tive disorder, unspecified F29 UNSP PSYCHOSIS NOT DUE TO A SUBSTANCE OR KNOWN PHYSIOL COND F41.1 GENERALIZED ANXIETY DISORDER F44.5 CONVERSION DISORDER WITH SEIZURES OR CONVULSIONS G40.909 EPILEPSY, UNSP, NOT INTRACTABLE , WITHOUT STATUS EPILEPTICUS G40.919 EPILEPSY, UNSP, INTRACTABLE , WITHOUT STATUS EPILEPTICUS H00.025 HORDEOLUM INTERNUM LEFT LOWER EYELID H05.012 CELLULITIS OF LEFT ORBIT [id number] J01.90 ACUTE SINUSITIS, UNSPECIFIED J20.9 ACUTE BRONCHITIS, [...] Severity SULFA (sulfonamide) S-DIFF. BREATHING Severe Aspirin L-BWOGSX-XATY/THROAT Severe Ibuprofen M-QKCLBH-WHWK/THROAT Severe Medications Na ND Rx Da Fi [...] .0 ed level 14:18 Comment: Performed at: [facility] Comment: [id number], [place] [id number] Comment: Casey Saw Operator: Felix Moon MD, Phone: [phone] CBC w auto diff (07-31-2017 16:45) Automat [...] 017 K/mm3 ed monocyt 16:45 e count [place] % = 3.8 % 1.7-9.3 complet 017 [...] SQUARE METERS Comment: If this patient is -Vietnamese, then multiply the Comment: result by 1.210. [...] gm/dL ed plasma 16:45 albumin measure ment ([facility] Cardiac enzymes (07-31-2017 16:45) Serum [...] SQUARE METERS Comment: If this patient is -Vietnamese, then multiply the Comment: result by 1.210. [...] Ruiz MD (ER) 3 16:45 3 18:38 [facility] Emergency AUGUST Ruiz MD (ER) 3 12:50 3 19:52 [facility] Emergency AUGUST Millard MD (ER) 3 17:15 3 19:13 [facility]
[2017-08-25 16:10] LABS: HEMOGLOBIN 12.3 g/dL (12.2-16.2); LYMPH # 3.1 K/mm3 (0.7-4.5); LYMPH % 27.1 % (10-50.0)
--- NOTE | 2017-08-25 17:04 | Emergency Room Report ---
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 N Clinical Suspician of Infection? N Mental Status: 1 - Regular (Normal Baseline) Sepsis Risk:Low Sepsis Risk Have you (or family members/close friends) recently traveled outside the [place]? N If Yes, where/when: Have you had exposure to infectious disease within the past month? N TB? Other? Specify: Brought by EMS secondary to suspected sz, patient states not feeling herself, has a sz d/o, and states "I wet myself so I think I had a seizure". She has no report of neck or back pain. No prodrome. Has been referred by neurologist at this facility to a different neurologist in [place], [place]; she has a longstanding hx of sz d/o and states that she takes Keppra. No fevers. Received flu vaccine today. ALLERGIES Coded Allergies: Sulfa (Sulfonamide Antibiotics) (05/26/17) aspirin (05/26/17) ibuprofen (From MOTRIN) (05/26/17) Home Medications Active Scripts GENTAMICIN SULFATE (GENTAMICIN 0.3% OPHTH SOLN) 1 DROP OP Q4H #1 BOT Prov: 05/23/17 Metoprolol Tartrate (Metoprolol 25MG) 50 MG PO BID 28 Days Prov: 05/28/17 Reported Medications Calcium Carbonate (Tums Ultra) 400-800 MG PO PRN PRN INDIGESTION Guaifenesin (Robafen) 10 ML PO Q4HP PRN COUGH SERTRALINE HYDROCHLORIDE (Zoloft 100MG) 200 MG PO QAM Hydrochlorothiazide W/Triamter (Triamterene-Hctz 37.5-25 MG Tb) 1 CAP PO DAILY #30 TAB BENZTROPINE MESYLATE (COGENTIN 1MG TAB) 1 MG PO TID GABAPENTIN (Gabapentin) 1,200 MG PO TID METFORMIN HCL (Metformin) 500 MG PO BID Omeprazole 20 MG PO DAILY Risperidone (Risperdal 1 Mg Tab) 4 MG PO BID Levetiracetam (Keppra) 1,000 MG PO Q12 Gemfibrozil (GEMFIBROZIL 600MG) 600 MG PO BID Olanzapine (Olanzapine 5MG Tab) 5 MG PO QHS Buspirone Hcl (Buspirone 10MG) 10 MG PO BID Trazodone Hcl (Trazodone HCl) 50 MG PO QHS Multivitamin (Multivitamins) 1 TAB PO DAILY Loperamide Hcl (Loperamide) 2 MG PO Q3HP PRN DIARRHEA Acetaminophen (Acetaminophen Tab) 650 MG PO Q8HP PRN PAIN/FEVER Magnesium Hydroxide (Milk Of Magnesia) 30 ML PO DAILYP PRN CONSTIPATION Sucralfate (Carafate Tab) 1 GM PO BID Clonazepam (Klonopin 0.5MG) 0.5 MG PO BID Fenofibrate 54 MG PO DAILY Montelukast Sodium (Singulair 10MG) 10 MG PO QHS OMEGA-3 ACID ETHYL ESTERS (Lovaza) 1 GM PO BID Topiramate 200 MG PO BID #60 CHOLECALCIFEROL (VITAMIN D3) (Vitamin D3) 5,000 UNITS PO DAILY BUDESONIDE/FORMOTEROL FUMARATE (Symbicort 160-4.5 Mcg Inhaler) 1 PUFF IH BID Albuterol Sulfate (Proair Hfa) 1 PUFF IH Q6HP PRN ASTHMA Fluticasone Propionate (Flonase 50 Mcg Nasal [place]) 1 SPRAY NA DAILY FLUTICASONE/VILANTEROL (Breo Ellipta 100-25 Mcg INH) 1 POW IH DAILY Oxcarbazepine 600 MG PO BID History Medical History General CAD? No Angina: No DC: No Hypertension? Yes Hyperlipidemia? Yes CHF? Yes DVT? No PE? No COPD? No Asthma? Yes Anemia? No GERD? No Gastric ulcers? No GI Bleed? No Hernia? No Thyroid Problems? No Hypothyroidism? No CVA? No Seizures? Yes Diabetes? Yes Insulin Dependent: No Insulin Pump: No Home FSBS? No Renal Insuffiency? No End Stage Renal Disease? No UTI? No Stones? No BPH? No GB Disease: No Nephritic Syndrome? No Asplenia? No Hepatitis? No Sickle Cell Disease? No Arthritis? No Migraines? No Cataracts? No Glaucoma? No MRSA? No HIV? No TB? No Anxiety? No Depression? No Cancer? Yes Site: BREAST More? 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 Hx LMP menopause Family History Family Hx Diabetes No CAD No Hypertension No Hyperlipidemia No Cancer No TB No Social History Smoking Hx Smoker: Current Every Day Smoker Tobacco: Yes Type Cigarettes Packs/day 1 1/2 - 2 Packs Alcohol Alcohol: No Review of Systems All Other Systems Reviewed and Negative Psychiatric/Neurological see HPI Physical Exam Vital Signs Vital Signs Date Time Temp Pulse Resp B/P Pulse O2 O2 Flow FiO2 Ox Delivery Rate 08/25 1547 98.8 72 20 147/85 95 General Appearance normal appearance, WD/WN, no apparent distress Eye Exam - bilateral eye normal exam, bilateral eye PERRL, bilateral eye EOMI Ear, Nose, Throat hearing grossly normal, normal ENT inspection (atraumatic) Neck normal inspection, non-tender, supple, full range of motion Respiratory Status Yes: trachea midline, chest symmetrical, non tender chest. No: respiratory distress, tender on palpation, use of accessory muscles, pain on inspiration, pain on expiration, productive cough, non productive cough. Lung Sounds bilateral: normal breath sounds, lungs clear. 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 No Results/Orders Laboratory Tests 08/25/17 1603: Sodium 140, Potassium 3.6, Chloride 104, Carbon Dioxide 29, BUN 9, Creatinine 0.6, Estimated Creat Clear 197, Estimated GFR (MDRD) 105, Glucose 89, Calcium 9.0, WBC 11.2 H, RBC 4.15 L, Hgb 12.3, Hct 37.5, MCV 90.5, RDW 13.7, Plt Count 315, MPV 7.4, Gran % 65.6, Gran # 7.4, Lymphocytes % 27.1, Monocytes % 4.5, Eosinophils % 2.2, Basophils % 0.5, Lymphocytes # 3.1, Monocytes # 0.5, Eosinophils # 0.3, Basophils # 0.1, PUBS MCHC 32.9, MCH 29.7 Current Medication Orders Sig/Thomas Start time Last Medication Dose Route Stop Time Status Admin Sodium Chloride 10 ML PRN PRN 08/25 1615 AC IV 08/26 1604 Orders Procedure Date/time Status IV SALINE LOCK 08/25 1604 Active ELECTROCARDIOGRAM REQUEST 08/25 1559 Active CBC WITH AUTO DIFF 08/25 1559 Complete BASIC METABOLIC PROFILE 08/25 1559 Complete 12 LEAD EKG-PRIMO (INITIAL) 08/25 UNK Active Departure Departure Time of Disposition 1710 Disposition DC Home or Self Care(routine) Clinical Impression Primary Impression: Breakthrough seizure Condition STABLE Referrals Braeden Aquino APRN (Family) Patient Instructions DI for Seizure Disorder -- Adult Additional Instructions Continue current medications Discharge Counseling Counseled pt/family regarding diagnosis, test results, medications/RX, home care, follow up needs ED Critical Care Critical Care No at 1712
[2017-08-25 17:21] VITALS: BP 138/76
== END ==
LOC: ER 15:46
PROVIDERS: Emergency Medicine
DX: G40.909 Epilepsy, unspecified, not intractable, without status epilepticus (principal); E11.9 Type 2 diabetes mellitus without complications; J45.909 Unspecified asthma, uncomplicated; I10 Essential (primary) hypertension; E78.5 Hyperlipidemia, unspecified

== ENCOUNTER 2017-08-31 21:35 | Emergency (ER) | payer MEDICAID ==
[~2017-08-31] VITALS: Ht 160 cm; Wt 106.2 kg
--- OUTSIDE RECORDS SUMMARY | 2017-08-31 21:43 | External Medical Summary Rpt | CCD ---
Demographics Home Phone Preferred Language Haitian Marital Status Unknown Orthodox Affiliation Unknown Race Unknown Ethnic Group Unknown Author Author , KATHI ARMENTA Address Unknown Phone [email or web address] Immunization Name Date Rout CVX Reac Dose Comm Prov Is Faci e tion ent ider Refu lity Give sed n TST- 04-0 Intr 96 999 Hist RI No RI PPD 1-20 ader oric intr 14 mal al ader Info mal rmat ion - Sour ce Unsp ecif ied PPV2 02-2 Intr 33 999 Hist JUAN CARLOS No JUAN CARLOS 3 3-20 amus oric TTHO TTHO 14 cula al MAS MAS r Info rmat ion - Sour ce Unsp ecif ied
--- OUTSIDE RECORDS SUMMARY | 2017-08-31 21:43 | External Medical Summary Rpt | CCD ---
Demographics Home Phone Preferred Language Burundian Marital Status Unknown Adventism Affiliation Unknown Race Unknown Ethnic Group Unknown Author Author , KATHI ARMENTA Address Unknown Phone [email or web address] Immunization Name Date Rout CVX Reac Dose [...]
--- OUTSIDE RECORDS SUMMARY | 2017-08-31 21:43 | External Medical Summary Rpt | CCD ---
Author Author , KATHI ARMENTA Address Unknown Phone [email or web address] Care Team Providers Care Police Inspector Name Role Phone Muriel Ruiz MD, Unavailable [...] term (current) drug therapy 305.1 305.1 05-23-2013 [place] TOBACCO USE [facility] 401.9 401.9 05-23-2013 [place] HYPERTENSIO [facility] N NOS Hospital 493.90 493.90 05-23-2013 [facility] 780.39 05-23-2013 [place] OTHER [facility] CONVULSIONS Hospital 786.59 786.59 05-23-2013 [place] CHEST PAIN [facility] 847.0 847.0 02-21-2013 Piy[place] SPRAIN OF [facility] NECK [facility] [phone] 02-21-2013 Piyush CONTUSION [facility] FACE/SCALP/ Hospital NCK E849.0 E849.0 02-21-2013 [place] ACCIDENT IN [facility] E884.2 E884.2 FALL 02-21-2013 Piyush FROM [facility] E87.6 HYPOKALEMIA F23 Brief psychotic [...] LOWER EYELID H05.012 CELLULITIS OF LEFT ORBIT [id number] J01.90 ACUTE SINUSITIS, UNSPECIFIED J20.9 ACUTE BRONCHITIS, [...] Severity SULFA (sulfonamide) S-DIFF. BREATHING Severe Aspirin W-[id number]-OPJH/THROAT Severe Ibuprofen B-[id number]/THROAT Severe Medications Na ND Rx Da Fi [...] Order Detail nces retati t Range on Basic metabolic panel (08-25-2017 16:03) Serum = 140 136-145 complet sodium 017 mmoL/L ed measure 16:03 ment Serum = 3.6 3.5-5.1 complet potassi 017 mmoL/L ed um 16:03 measure ment Serum = 89 74-106 complet or 017 mg/dL ed plasma 16:03 glucose measure ment (mas Estimat = 105 59- complet ed 017 ML/MIN ed glomeru 16:03 lar filtrat ion rate (GF Comment: REFERENCE RANGE: >60 ML/MIN/1.73 SQUARE METERS Comment: If this patient is -Congolese, then multiply the Comment: result by 1.210. Estimat = 197 50-200 complet ion of 017 ML/MIN ed creatin 16:03 ine renal clearan ce Serum = 0.6 0.55-1. complet or 017 mg/dL 02 ed plasma 16:03 creatin ine measure ment ( Carbon = 29 21.0-32 complet dioxide 017 mmoL/L .0 ed 16:03 measure ment Serum = 104 98-107 complet or 017 mmoL/L ed plasma 16:03 chlorid e measure ment (mo Serum = 9.0 8.5-10. complet or 017 mg/dL 1 ed plasma 16:03 calcium measure ment (mas Serum = 9 7-18 complet or 017 mg/dL ed plasma 16:03 urea nitroge n measure men CBC w auto diff (08-25-2017 16:03) Blood = 11.2 4.8-10. complet leukocy 017 K/MM3 8 ed dl 16:03 count (number /volume ) Automat = 13.7 11.5-17 complet ed 017 % .5 ed erythro 16:03 cyte distrib ution width Red = 4.15 4.2-5.4 complet blood 017 M/mm3 ed cell 16:03 count Blood = 315 142-424 complet platele 017 K/mm3 ed t count 16:03 Automat = 7.4 7.4-10. complet ed 017 fl 4 ed blood 16:03 platele t mean volume darren [place] % = 4.5 % 1.7-9.3 complet 017 ed 16:03 Absolut = 0.5 0.1-1.0 complet e 017 K/mm3 ed monocyt 16:03 e count Automat = 90.5 82.2-97 complet ed 017 fl .8 ed erythro 16:03 cyte mean corpusc ular v Automat = 32.9 31.8-35 complet ed 017 g/dl .4 ed erythro 16:03 cyte mean corpusc ular h Mean = 29.7 27-31.2 complet corpusc 017 pg ed ular 16:03 hemoglo bin (MCH) determ Lymphoc = 27.1 10-50.0 complet yte 017 % ed count, 16:03 blood, automat ed Absolut = 3.1 0.7-4.5 complet e 017 K/mm3 ed lymphoc 16:03 yte count Blood = 12.3 12.2-16 complet hemoglo 017 g/dL .2 ed bin 16:03 measure ment (mass/v olum Blood = 37.5 37.0-47 complet hematoc 017 % .0 ed rit 16:03 (volume fractio n) Granulo = 65.6 37.0-80 complet cyte 017 % .0 ed percent 16:03 age Blood = 7.4 1.8-7.8 complet granulo 017 K/mm3 ed cytes 16:03 automat ed count (numb Automat = 2.2 % 0.1-12. complet ed 017 0 ed blood 16:03 eosinop hils/10 0 leukocy t Automat = 0.3 0.0-0.4 complet ed 017 K/mm3 ed blood 16:03 eosinop hil count Baso % = 0.5 % 0.1-2.0 complet 017 ed 16:03 Automat = 0.1 0-0.2 complet ed 017 K/MM3 ed blood 16:03 basophi l count (count/ vo Levetiracetam level (08-03-2017 14:18) Levetir = 14.6 10.0-40 complet acetam 017 ug/mL .0 ed level 14:18 Comment: Performed at: [facility] Comment: [address], [place] [id number] Comment: Salvage Winder: Felix Moon MD, Phone: [phone] Cardiac enzymes (07-31-2017 16:45) Serum < 0.02 [...] e kinase MB (CK-M Comprehensive metabolic panel (07-31-2017 16:45) Protein --2 = 7.5 6.4-8.2 complet total 017 gm/dL [...] SQUARE METERS Comment: If this patient is -Congolese, then multiply the Comment: result by 1.210. Estimat = 131 50-200 complet ion of 017 ML/MIN ed creatin 16:45 ine renal clearan ce Serum = 0.8 0.55-1. complet or 017 mg/dL 02 ed plasma 16:45 creatin ine measure ment ( Carbon = 28 21.0-32 complet dioxide 017 mmoL/L .0 ed 16:45 measure ment Serum 11-10-2 = 100 98-107 complet or 017 mmoL/L [...] 16:45 albumin measure ment (mas Serum = 1.1 1.1-1.8 complet or 017 ed plasma 16:45 albumin /globul in mass ra CBC w auto diff (07-31-2017 16:45) Blood [...] blood 16:45 platele t mean volume darren [place] % = 3.8 % 1.7-9.3 complet 017 [...] (count/ vo Comprehensive metabolic panel (07-20-2017 11:59) Protein = 7.3 6.4-8.2 complet total 017 gm/dL ed ser/buck 11:59 s ALT = 28 12-78 complet (SGPT) 017 U/L ed ser/buck 11:59 s Serum = 13 15-37 complet or 017 U/L ed plasma 11:59 asparta te aminotr ansfera Serum = 139 136-145 complet sodium 017 mmoL/L ed measure 11:59 ment Serum 10-30-2 = 4.5 3.5-5.1 complet potassi 017 mmoL/L ed um 11:59 measure ment Serum 1030-2 = 86 74-106 complet or 017 mg/dL ed plasma 11:59 glucose measure ment (mas Serum 30-2 = 3.3 1.3-3.2 complet globuli 017 gm/dL ed n 11:59 measure ment (mass/v olume) Estimat 10-30-2 = 88 59- complet ed 017 ML/MIN ed glomeru 11:59 lar filtrat ion rate (GF Comment: REFERENCE RANGE: >60 ML/MIN/1.73 SQUARE METERS Comment: If this patient is -Congolese, then multiply the Comment: result by 1.210. Serum 30-2 = 0.7 0.55-1. complet or [...] plasma 11:59 albumin measure ment (mas Serum 30-2 = 1.2 1.1-1.8 complet or 017 ed plasma 11:59 albumin /globul in mass ra Phenytoin SerPl-mCnc (06-04-2017 12:19) Phenyto < 0.8 [...] mg/dL 1 ed SerPl-m 17:35 Cnc Prot 02-14- 7.0 6.4-8.2 complet SerPl-m 013 gm/dL ed [...] Bld 013 M/mm3 ed Auto 17:35 Hgb 05--2 12.0 12.2-16 complet Bld-mCn 013 g/dL .2 [...] Fr 013 ed Bld 17:35 Auto Eosinop --2 4.8 % 0.1-12. complet hil Fr 013 0 ed Bld 17:35 Auto Basophi 05--2 0.5 % 0.1-2.0 complet ls Fr 013 ed Bld 17:35 Auto Granulo 05-27-2 5.6 1.8-7.8 complet cytes # 013 K/mm3 ed Bld 17:35 Auto Lymphoc -27-2 3.1 0.7-4.5 complet ytes Fr 013 K/mm3 [...] Ruiz MD (ER) 3 16:45 3 18:38 [facility] AUGUST Ruiz MD (ER) 3 12:50 3 19:52 [facility] AUGUST Millard MD (ER) 3 17:15 3 19:13 [facility]
--- OUTSIDE RECORDS SUMMARY | 2017-08-31 21:43 | External Medical Summary Rpt | CCD ---
Author Author , KATHI ARMENTA Address Unknown Phone [email or web address] [email or web address] Care Combination Machine Tool Operator Name Role Phone Muriel Ruiz MD, Unavailable [...] term (current) drug therapy 305.1 305.1 05-23-2013 [place] TOBACCO USE [facility] 401.9 401.9 05-23-2013 [place] HYPERTENSIO [facility] N NOS Hospital 493.90 493.90 05-23-2013 [facility] 780.39 780.39 05-23-2013 [place] OTHER [facility] CONVULSIONS Hospital 786.59 786.59 05-23-2013 [place] CHEST PAIN [facility] 847.0 847.0 02-21-2013 [place] SPRAIN OF [facility] NECK [facility] 920 920 02-21-2013 P[place] CONTUSION [facility] FACE/SCALP/ Hospital NCK E849.0 E849.0 02-21-2013 [place] ACCIDENT IN [facility] E884.2 E884.2 FALL 02-21-2013 Piyush FROM [facility] E87.6 HYPOKALEMIA F23 Brief psychotic disorder F25.9 Schizoaffec tive disorder, unspecified F29 UNSP PSYCHOSIS NOT DUE TO A SUBSTANCE OR KNOWN PHYSIOL COND F41.1 GENERALIZED ANXIETY DISORDER F44.5 CONVERSION DISORDER WITH SEIZURES OR CONVULSIONS G40.909 EPILEPSY, UNSP, NOT INTRACTABLE , WITHOUT STATUS EPILEPTICUS G40.919 EPILEPSY, UNSP, INTRACTABLE , WITHOUT STATUS EPILEPTICUS H00.025 HORDEOLUM INTERNUM LEFT LOWER EYELID H05.012 CELLULITIS OF LEFT ORBIT [id number] J01.90 ACUTE SINUSITIS, UNSPECIFIED J20.9 ACUTE BRONCHITIS, [...] Severity SULFA (sulfonamide) S-DIFF. BREATHING Severe Aspirin O-JEZVUV-BCPU/THROAT Severe Ibuprofen N-[id number]-VAYB/THROAT Severe Medications Na ND Rx Da Fi [...] SQUARE METERS Comment: If this patient is -Emirati, then multiply the Comment: result by 1.210. [...] blood 16:03 platele t mean volume darren [place] % = 4.5 % 1.7-9.3 complet 017 [...] .0 ed level 14:18 Comment: Performed at: [facility] Comment: [address], [place] [id number] Comment: Core Piler: Felix Moon MD, Phone: [phone] Cardiac enzymes (07-31-2017 16:45) Serum < 0.02 [...] SQUARE METERS Comment: If this patient is -Emirati, then multiply the Comment: result by 1.210. [...] blood 16:45 platele t mean volume darren [place] % = 3.8 % 1.7-9.3 complet 017 [...] SQUARE METERS Comment: If this patient is -Emirati, then multiply the Comment: result by 1.210. [...] Ruiz MD (ER) 3 16:45 3 18:38 [facility] AUGUST Ruiz MD (ER) 3 12:50 3 19:52 [facility] AUGUST Millard MD (ER) 3 17:15 3 19:13 [facility]
--- NOTE | 2017-08-31 22:06 | Emergency Room Report ---
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 N Clinical Suspician of Infection? N Mental Status: 1 - Regular (Normal Baseline) Sepsis Risk:Low Sepsis Risk Have you (or family members/close friends) recently traveled outside the [place]? N If Yes, where/when: Have you had exposure to infectious disease within the past month? N TB? Other? Specify: Source patient, RN notes reviewed, family, EMS, old records Exam Limitations no limitations Comment pt with reported sz and was brought for eval - no hip or neck pain and no sig [place]ton Cardiac Chest Pain Chest pain indicative of cardiac No Timing/Duration this evening Severity moderate ALLERGIES Coded Allergies: Sulfa (Sulfonamide Antibiotics) (05/26/17) aspirin (05/26/17) ibuprofen (From MOTRIN) (05/26/17) Home Medications Active Scripts GENTAMICIN SULFATE (GENTAMICIN 0.3% OPHTH SOLN) 1 DROP OP Q4H #1 BOT Prov: 05/23/17 Metoprolol Tartrate (Metoprolol 25MG) 50 MG PO BID 28 Days Prov: 05/28/17 Reported Medications Calcium Carbonate (Tums Ultra) 400-800 MG PO PRN PRN INDIGESTION Guaifenesin (Robafen) 10 ML PO Q4HP PRN COUGH SERTRALINE HYDROCHLORIDE (Zoloft 100MG) 200 MG PO QAM Hydrochlorothiazide W/Triamter (Triamterene-Hctz 37.5-25 MG Tb) 1 CAP PO DAILY #30 TAB BENZTROPINE MESYLATE (COGENTIN 1MG TAB) 1 MG PO TID GABAPENTIN (Gabapentin) 1,200 MG PO TID METFORMIN HCL (Metformin) 500 MG PO BID Omeprazole 20 MG PO DAILY Risperidone (Risperdal 1 Mg Tab) 4 MG PO BID Levetiracetam (Keppra) 1,000 MG PO Q12 Gemfibrozil (GEMFIBROZIL 600MG) 600 MG PO BID Olanzapine (Olanzapine 5MG Tab) 5 MG PO QHS Buspirone Hcl (Buspirone 10MG) 10 MG PO BID Trazodone Hcl (Trazodone HCl) 50 MG PO QHS Multivitamin (Multivitamins) 1 TAB PO DAILY Loperamide Hcl (Loperamide) 2 MG PO Q3HP PRN DIARRHEA Acetaminophen (Acetaminophen Tab) 650 MG PO Q8HP PRN PAIN/FEVER Magnesium Hydroxide (Milk Of Magnesia) 30 ML PO DAILYP PRN CONSTIPATION Sucralfate (Carafate Tab) 1 GM PO BID Clonazepam (Klonopin 0.5MG) 0.5 MG PO BID Fenofibrate 54 MG PO DAILY Montelukast Sodium (Singulair 10MG) 10 MG PO QHS OMEGA-3 ACID ETHYL ESTERS (Lovaza) 1 GM PO BID Topiramate 200 MG PO BID #60 CHOLECALCIFEROL (VITAMIN D3) (Vitamin D3) 5,000 UNITS PO DAILY BUDESONIDE/FORMOTEROL FUMARATE (Symbicort 160-4.5 Mcg Inhaler) 1 PUFF IH BID Albuterol Sulfate (Proair Hfa) 1 PUFF IH Q6HP PRN ASTHMA Fluticasone Propionate (Flonase 50 Mcg Nasal [place]) 1 SPRAY NA DAILY FLUTICASONE/VILANTEROL (Breo Ellipta 100-25 Mcg INH) 1 POW IH DAILY Oxcarbazepine 600 MG PO BID History Medical History General CAD? No Angina: No OR: No Hypertension? Yes Hyperlipidemia? Yes CHF? Yes DVT? No PE? No COPD? No Asthma? Yes Anemia? No GERD? No Gastric ulcers? No GI Bleed? No Hernia? No Thyroid Problems? No Hypothyroidism? No CVA? No Seizures? Yes Diabetes? Yes Insulin Dependent: No Insulin Pump: No Home FSBS? No Renal Insuffiency? No End Stage Renal Disease? No UTI? No Stones? No BPH? No GB Disease: No Nephritic Syndrome? No Asplenia? No Hepatitis? No Sickle Cell Disease? No Arthritis? No Migraines? No Cataracts? No Glaucoma? No MRSA? No HIV? No TB? No Anxiety? No Depression? No Cancer? Yes Site: BREAST More? 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 Respiratory denies cough, denies shortness of breath, denies wheezing Cardiovascular denies chest pain, denies syncope Gastrointestinal denies abdominal pain, denies diarrhea, denies vomiting Genitourinary denies: dysuria, frequency, hesitancy, hematuria. Musculoskeletal denies back pain, denies joint pain, denies joint swelling, denies neck pain Skin denies rash Psychiatric/Neurological see HPI, seizure Physical Exam Vital Signs Vital Signs Date Time Temp Pulse Resp B/P Pulse O2 O2 Flow FiO2 Ox Delivery Rate 08/31 2136 98.5 77 18 194/78 96 - WBC >12,000 or <4,000 or 10% bands? 2 or more SIRS Criteria Met? B/P:194/78 MAP:116 Creatinine >2.0? UA output<0.5ml/kg/hr for 2 hrs? Platelet count >100,000? Lactate >2.0mmol/1? INR >1.2 or PTT > than 60 sec? Evidence of Organ Dysfunction? Provider documented clinical suspician of infection? N Sepsis Criteria Count: 0 Sepsis Risk: Low Sepsis Risk General Appearance no apparent distress Eye Exam - bilateral eye PERRL, bilateral eye EOMI Ear, Nose, Throat normal ENT inspection, no evid of tongue biting Neck non-tender Respiratory Status No: respiratory distress. Lung Sounds bilateral: lungs clear. 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 No Results/Orders Laboratory Tests 08/31/172229: Opiates Screen NEGATIVE, Urine Methadone Screen NEGATIVE, Barbiturates NEGATIVE, Phencyclidine Screen NEGATIVE, Amphetamines Screen NEGATIVE, Benzodiazepines Screen NEGATIVE, Cocaine Screen NEGATIVE, Marijuana (THC) Screen NEGATIVE 08/31/172219: Sodium 137, Potassium 3.7, Chloride 103, Carbon Dioxide 27, BUN 10, Creatinine 0.8, Estimated Creat Clear 139, Estimated GFR (MDRD) 76, Glucose 97, Calcium 9.5 , Total Bilirubin 0.1 L, AST 10 L, ALT 25, Alkaline Phosphatase 85, Total Protein 7.1, Albumin 3.7, Globulin 3.4 H, Albumin/Globulin Ratio 1.1, WBC 10.3, RBC 4.01 L, Hgb 12.1 L, Hct 36.2 L, MCV 90.4, RDW 13.6, Plt Count 283, MPV 7.7, Gran % 55.5, Gran # 5.7, Lymphocytes % 37.1, Monocytes % 4.1, Eosinophils % 2.7, Basophils % 0.6, Lymphocytes # 3.8, Monocytes # 0.4, Eosinophils # 0.3, Basophils # 0.1, PUBS MCHC 33.4, MCH 30.2, Levetiracetam Pending Orders Procedure Date/time Status LEVETIRACETAM (KEPPRA) 08/31 2208 Active DRUG ABUSE SCREEN (TRIAGE) 08/31 2208 Complete COMPLETE METABOLIC PANEL 08/31 2208 Complete CBC WITH AUTO DIFF 08/31 2208 Complete Departure Departure Time of Disposition 2320 Disposition DC Home or Self Care(routine) Clinical Impression Primary Impression: Seizure Condition STABLE Referrals Braeden Aquino APRN (Family) Patient Instructions DI for Seizure Disorder -- Adult Additional Instructions use meds as directed and see pcp Discharge Counseling Counseled pt/family regarding diagnosis, test results, medications/RX, follow up needs ED Critical Care Critical Care No at 2326
[2017-08-31 22:32] LABS: HEMOGLOBIN 12.1 g/dL (12.2-16.2); LYMPH # 3.8 K/mm3 (0.7-4.5); LYMPH % 37.1 % (10-50.0)
[2017-08-31 22:51] LABS: AMPHETAMINES/METAMPHETAMINES NEGATIVE ng/mL (<1000)
[2017-09-01 00:09] VITALS: BP 163/84
== END 2017-09-01 00:09 | disposition home or self-care (01) ==
LOC: ER 21:35
PROVIDERS: Emergency Medicine
DX: R56.9 Unspecified convulsions (principal); Z79.899 Other long term (current) drug therapy; Z72.0 Tobacco use